=== PATIENT | female | born 1955 | race Caucasian/White ===

== ENCOUNTER 2016-05-24 02:18 | Emergency (ER) | payer BC ==
[2016-05-24 02:24] VITALS: BP 122/91
--- NOTE | 2016-05-24 02:33 | EDM.PDOC ---
ED HPI GI/ABDOMINAL - General Chief Complaint: Gastrointestinal Problem Stated Complaint: VOMITING Time Seen by Provider: 05/24/16 02:27 Source of Information: Reports: Patient - History of Present Illness INITIAL COMMENTS - FREE TEXT/NARRATIVE: 60-year-old female presents emergency room with lightheadedness dehydration and head injury. The patient has had significant nausea and vomiting since Saturday has not been able to keep any fluids down albeit she has tried. Patient really denies any abdominal discomfort. Patient was walking down the [place] shortly before arrival became lightheaded stumbled forward hitting her head on the floor. She denies loss of consciousness but was stunned. Patient has not had any diarrhea or any abdominal pain. No burning or frequency with urination she does have a history of hypokalemia and takes potassium chloride 20 mEq twice a day she has not been able to keep this down. Patient has a history of alcoholism, she has an occasional drink one or 2 a week. - Related Data Allergies/ADRs: Allergies Allergy/AdvReac Type Severity Reaction Status Date / Time levofloxacin [From Levaquin] Allergy Rash Verified 07/28/15 11:19 acetaminophen AdvReac Headache Verified 07/28/15 11:19 [From Darvocet-N] propoxyphene napsylate AdvReac Headache Verified 07/28/15 11:19 [From Darvocet-N] quetiapine fumarate AdvReac Confusion Verified 07/28/15 11:19 [From Seroquel] Home Meds: Home Meds Alendronate [Fosamax] 05/24/16 [History] DULoxetine [Cymbalta] 05/24/16 [History] Fluticasone/Salmeterol [Advair 250-50 Diskus] 05/24/16 [History] Fluticasone/Salmeterol [Advair 250-50 Diskus] 05/24/16 [History] Naltrexone Microspheres [Vivitrol] 05/24/16 [History] Potassium Chloride [Potassium Chloride] 05/24/16 [History] atorvaSTATin [Lipitor] 05/24/16 [History] Past Medical History HEENT History: Reports: Impaired vision, Other (see below) Other HEENT History: Patient states she wears glasses Cardiovascular History: Reports: High cholesterol Respiratory History: Reports: Asthma, Pneumonia, recurrent Gastrointestinal History: Reports: GERD Genitourinary History: Reports: UTI, recurrent 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 CYTOLOGY History: Reports: Other (see below) Other OB/BYN History: Patient states she started menopause at 54 yoa Neurological History: Reports: Other (see below) Other Neuro History: headaches Psychiatric History: Reports: Addiction, Anxiety, Depression, Eating disorders, Other (see below) Other Psychiatric History: eaating disorder at age 14 Immunologic History: Reports: Other (see below) Other Immunologic History: recurrent staph infections - Past Surgical History HEENT Surgical History: Reports: Oral surgery Other HEENT Surgeries/Procedures: Patient states all her teeth were removed and she has implants Other Respiratory Surgeries/Procedures: per ER report Musculoskeletal Surgical History: Reports: Shoulder surgery, Other (see below) Other Musculoskeletal Surgeries/Procedures:: Patient states she has a steel plate and screws in her right wrist, and has had two rotator cuff surgeries to the left shoulder Social & Family History - Family History Family Medical History: Unobtainable Cardiac: Reports: None - Tobacco Use Smoking Status *Q: Never Smoker Years of Tobacco use: 0 Used Tobacco, but Quit: Yes Month Tobacco Last Used: 2004 Second Hand Smoke Exposure: No - Alcohol Use Days Per Week of Alcohol Use: 3 Number of Drinks Per Day: 5 Total Drinks Per Week: 15 - Recreational Drug Use Recreational Drug Use: No Drug Use in Last 12 Months: Yes Recreational Drug Type: Reports: Opium ED ROS GENERAL - Review of Systems Review Of Systems: See Below Constitutional: Reports: malaise, weakness. Denies: fever, chills HEENT: Reports: No symptoms Respiratory: Reports: No Symptoms Cardiovascular: Reports: No symptoms GI/Abdominal: Reports: Nausea, Vomiting. Denies: Abdominal pain, Constipation, Diarrhea : Reports: no symptoms Musculoskeletal: Reports: no symptoms Skin: Reports: other (Other than her laceration on her forehead she is doing well) Neurological: Reports: Dizziness (With change of position), Headache (After the fall and head injury) Psychiatric: Reports: No symptoms Hematologic/Lymphatic: Reports: no symptoms ED EXAM, GI/ABD - Physical Exam Exam: See Below Exam Limited By: No limitations General Appearance: alert, no apparent distress, other (She has a vertical laceration on her midforehead and has a mild tachycardia) Eyes: bilateral: normal appearance Ears: normal external exam, normal canal, hearing grossly normal, normal TMs Nose: normal inspection, normal mucosa, no blood Throat/Mouth: Normal inspection, Normal lips, Normal teeth, Normal gums, Normal oropharynx, Normal voice, No airway compromise, Other (Semi-dry mucosa) Head: other (Laceration midforehead 3 cm) Neck: normal inspection, supple, non-tender, full range of motion. No: lymphadenopathy (L), lymphadenopathy (R) Respiratory/Chest: no respiratory distress, lungs clear, normal breath sounds Cardiovascular: regular rate, rhythm, no edema, no murmur, tachycardia (Mild) GI/Abdominal: normal bowel sounds, soft, non tender, no organomegaly, no distention, no abnormal bruit, no mass Back Exam: normal inspection, full range of motion. No: CVA tenderness (L), CVA tenderness (R) Extremities: normal inspection, no pedal edema Neurological: alert, oriented, CN II-XII intact, normal cognition, normal reflexes, no motor/sensory deficits, other (Cranial nerves II through XII grossly intact muscle groups the upper extremities recall appropriate bilaterally deep tendon reflexes the brachial radialis are normal. Patient cannot be ambulated because of orthostatic situation) Psychiatric: normal affect, normal mood Skin Exam: Warm, Dry, Intact Lymphatic: no adenopathy ED ABDOMINAL/GI PROCEDURES - Additional/Other Procedure(s) Procedure(s) (Free Text): Laceration on her forehead measures 3 cm is was anesthetized with 2 cc 1% lidocaine with out difficulty. The wound was kept moist during evaluation and cat scanning. 8 simple sutures of 5-0 nylon were placed yielding good wound approximation. Prior to repair wound was explored to its space no foreign bodies identified patient tolerated the procedure well. Her tetanus needs to be updated and this will be done on this visit Course - Vital Signs Last Recorded V/S: Last Vital Signs Temp 36.3 C 05/24/16 02:20 Pulse 105 H 05/24/16 02:20 Resp 18 05/24/16 02:20 BP 122/91 H 05/24/16 02:20 Pulse Ox 97 05/24/16 02:20 Orthostatic Blood Pressure [ 90/65 Standing] Orthostatic Blood Pressure [ 110/91 Sitting] - Orders/Labs/Meds Orders: Active Orders 24 hr Category Date Time Status Head wo Cont [CT] Stat Exams 05/24/16 02:39 Taken Labs: Laboratory Tests 05/24/16 05/24/1605/24/17 Range/Units 02:30 02:30 02:30 WBC 11.83 H (3.98-10.04) K/mm3 RBC 5.44 H (3.98-5.22) M/mm3 Hgb 17.1 H (11.2-15.7) gm/L Hct 50.5 H (34.1-44.9) % MCV 92.8 (79.4-94.8) fl MCH 31.4 (25.6-32.2) pg MCHC 33.9 (32.2-35.5) g/dl RDW Std Deviation 46.1 (36.4-46.3) fL Plt Count 319 (182-369) K/mm3 MPV 9.6 (9.4-12.3) fl Neutrophils % (Manual) 74 H (40-60) % Band Neutrophils % 0 (0-10) % Lymphocytes % (Manual) 12 L (20-40) % Atypical Lymphs % 0 % Monocytes % (Manual) 14 H (2-10) % Eosinophils % (Manual) 0 L (0.7-5.8) % Basophils % (Manual) 0 L (0.1-1.2) Platelet Estimate Adequate Plt Morphology Comment Normal RBC Morph Comment Normal Sodium 135 L (136-145) mEq/L Potassium 2.5 L (3.5-5.1) mEq/L Chloride 77 L (98-107) mEq/L Carbon Dioxide 34 H (21-32) mEq/L Anion Gap 26.5 H (5-15) BUN 34 H (7-18) mg/dL Creatinine 2.6 H (0.55-1.02) mg/dL Est Cr Clr Drug Dosing 17.56 mL/min Estimated GFR (MDRD) 19 (>60) mL/min BUN/Creatinine Ratio 13.1 L (14-18) Glucose 162 H (74-106) mg/dL Lactic Acid (0.4-2.0) mmol/L Calcium 11.0 H (8.5-10.1) mg/dL Magnesium 2.0 (1.8-2.4) mg/dl Total Bilirubin 1.9 H (0.2-1.0) mg/dL AST 40 H (15-37) U/L ALT 42 (14-59) U/L Alkaline Phosphatase 111 (46-116) U/L Total Protein 8.6 H (6.4-8.2) g/dl Albumin 5.6 H (3.4-5.0) g/dl Globulin 3.0 gm/dL Albumin/Globulin Ratio 1.9 (1-2) Lipase 387 (73-393) U/L Ethyl Alcohol 0.00 (0.00) gm% 05/24/16 Range/Units 03:45 WBC (3.98-10.04) K/mm3 RBC (3.98-5.22) M/mm3 Hgb (11.2-15.7) gm/L Hct (34.1-44.9) % MCV (79.4-94.8) fl MCH (25.6-32.2) pg MCHC (32.2-35.5) g/dl RDW Std Deviation (36.4-46.3) fL Plt Count (182-369) K/mm3 MPV (9.4-12.3) fl Neutrophils % (Manual) (40-60) % Band Neutrophils % (0-10) % Lymphocytes % (Manual) (20-40) % Atypical Lymphs % % Monocytes % (Manual) (2-10) % Eosinophils % (Manual) (0.7-5.8) % Basophils % (Manual) (0.1-1.2) Platelet Estimate Plt Morphology Comment RBC Morph Comment Sodium (136-145) mEq/L Potassium (3.5-5.1) mEq/L Chloride (98-107) mEq/L Carbon Dioxide (21-32) mEq/L Anion Gap (5-15) BUN (7-18) mg/dL Creatinine (0.55-1.02) mg/dL Est Cr Clr Drug Dosing mL/min Estimated GFR (MDRD) (>60) mL/min BUN/Creatinine Ratio (14-18) Glucose (74-106) mg/dL Lactic Acid 2.6 H (0.4-2.0) mmol/L Calcium (8.5-10.1) mg/dL Magnesium (1.8-2.4) mg/dl Total Bilirubin (0.2-1.0) mg/dL AST (15-37) U/L ALT (14-59) U/L Alkaline Phosphatase (46-116) U/L Total Protein (6.4-8.2) g/dl Albumin (3.4-5.0) g/dl Globulin gm/dL Albumin/Globulin Ratio (1-2) Lipase (73-393) U/L Ethyl Alcohol (0.00) gm% Meds: Medications Discontinued Medications Generic Name Dose Route Start Last Admin Trade Name Abelardo PRN Reason Stop Dose Admin Lactated Ringer's 2,000 mls @ 999 mls/hr 05/24/16 02:34 05/24/16 02:42 Ringers, Lactated IV 05/24/16 04:34 999 mls/hr .BOLUS ONE Administration Lidocaine HCl 50 ml 05/24/16 03:15 05/24/16 04:50 Xylocaine-Mpf 1% INJECT 05/24/16 03:16 50 ml ONETIME ONE Administration Ondansetron HCl 4 mg 05/24/16 03:12 05/24/16 03:16 Zofran IVPUSH 05/24/16 03:13 4 mg ONETIME ONE Administration Ondansetron HCl Confirm 05/24/16 04:13 05/24/16 05:08 Zofran Administered 05/24/16 04:14 Not Given Dose 4 mg .ROUTE .STK-MED ONE Ondansetron HCl 4 mg 05/24/16 04:14 05/24/16 04:15 Zofran IVPUSH 05/24/16 04:15 4 mg ONETIME ONE Administration Potassium Chloride 40 meq 05/24/16 03:14 05/24/16 05:07 Klor-Con M20 PO 05/24/16 03:15 40 meq ONETIME ONE Administration - Re-Assessments/Exams Free Text/Narrative Re-Assessment/Exam: 05/24/16 06:05 Patient was orthostatic upon arrival she was started on IV fluids received a total of 2 L. Her nausea and vomiting required 2 doses of Zofran. Patient felt much better, she was ambulatory able to walk a full lap around emergency room department without difficulty lightheadedness or dizziness. Patient tolerated her laceration repair without difficulty. Her tetanus was updated Departure - Departure Time of Disposition: 05:42 Disposition: Home, Self-Care 01 Clinical Impression: Nausea & vomiting, Head injury, Dehydration, Hypokalemia Referrals: Renard Verduzco MD [Primary Care Provider] - Forms: ED Department Discharge Additional Instructions: Return to the emergency room with any questions or problems. Return if not keeping fluids down or you cannot control your nausea and vomiting. Increase your potassium to 40 mEq 3 times a day for 2 days and then 20 mEq 3 times a day. You have been given a prescription for Zofran 4mg #10 one every 4-6 hours as needed for nausea and vomiting. Followup with your regular physician on Saturday and have your potassium rechecked. Her Sutures out in 8 or 9 days. Use caution with change of position to avoid dizziness. - My Orders Last 24 Hours: My Active Orders 05/24/16 02:39 Head wo Cont [CT] Stat - Assessment/Plan Last 24 Hours: My Active Orders 05/24/16 02:39 Head wo Cont [CT] Stat
[2016-05-24] MEDS ORDERED: Lactated Ringers 2,000 ML IV ONE (02:34)
[2016-05-24] MEDS ORDERED: Ondansetron 4 MG/2 ML SDV IVPUSH ONE ×2 (03:12→04:14)
[2016-05-24] MEDS ORDERED: Potassium Chloride 20 MEQ Tab.ER PO ONE (03:14)
[2016-05-24] MEDS ORDERED: Lidocaine 1% 30 ML SDV INJECT ONE (03:15)
[2016-05-24] MEDS ORDERED: Ondansetron 4 MG/2 ML SDV ONE (04:13)
[2016-05-24] MEDS ORDERED: Diphtheria,Pertussis(Acell),Tetanus Vaccine 0.5 ML SDV inactive IM ONE (06:04)
[2016-05-24] MEDS ORDERED: Diphtheria/Tetanus Toxoids,Adult (Td) 0.5 ML Syringe ONE (06:06)
--- NOTE | 2016-05-24 09:55 | CT ---
Head CT Technique: Multiple axial sections through the brain were obtained. Intravenous contrast was not utilized. Comparison: Previous head CT study of 06/26/15. Findings: Ventricles along with basal cisterns and sulci over the convexities are mildly prominent. Very minimal diminished density suggested within the periventricular white matter compatible with slight small vessel ischemic demyelination change. No other abnormal parenchymal densities are seen. No evidence of intracranial hemorrhage. No midline shift or mass effect is seen. Bone window settings were reviewed which show no discrete calvarial abnormality. Visualized sinuses are clear. Impression: 1. Mild senescent change. No acute intracranial abnormality is identified. Diagnostic code #2 I agree with preliminary report issued by [facility] (preliminary report dictated on 05/24/16, 5:26 AM Central Time)
== END 2016-05-24 06:15 | disposition home or self-care (01) ==
LOC: JD.ED 02:18 → SUPCPDRO 02:18 → JD.ED 06:15
DX: S09.90XA Unspecified injury of head, initial encounter (principal); S01.81XA Laceration without foreign body of other part of head, initial encounter; E86.0 Dehydration; E87.6 Hypokalemia; R11.2 Nausea with vomiting, unspecified; Z88.1 Allergy status to other antibiotic agents; Z88.8 Allergy status to other drugs, medicaments and biological substances; Z79.899 Other long term (current) drug therapy; E78.00 Pure hypercholesterolemia, unspecified; K21.9 Gastro-esophageal reflux disease without esophagitis; J45.909 Unspecified asthma, uncomplicated; F32.9 Major depressive disorder, single episode, unspecified; F41.9 Anxiety disorder, unspecified; Z87.891 Personal history of nicotine dependence; W18.30XA Fall on same level, unspecified, initial encounter
CPT/HCPCS: 12013; 36415; 70450; 80053; 83605; 83690; 83735; 85025; 90471; 96361; 96374; 96376; 99284; A9270; G0480; J2405; J7120; 90715

== ENCOUNTER 2016-05-27 11:52 | Emergency (ER) | payer BC ==
[2016-05-27 12:05] VITALS: BP 130/86
[2016-05-27] MEDS ORDERED: Sodium Chloride 0.9% 1,000 ML IV SCH (13:15)
--- NOTE | 2016-05-27 14:00 | EDM.PDOC ---
ED HPI Behavioral Health - General Chief Complaint: Drug or Alcohol Abuse Stated Complaint: [facility] Time Seen by Provider: 05/27/16 12:41 Source of Information: Reports: Patient, RN notes reviewed Exam Limitations: Reports: Intoxication - History of Present Illness INITIAL COMMENTS - FREE TEXT/NARRATIVE: It appears that the patient's boyfriend called EMS for alcohol intoxication. The patient denies it, but she may have told her boyfriend that she wanted to . At this time, the patient expressly denies suicidal or homicidal ideation. The patient reported to the triage nurse that she drank 1 L of vodka on 05/21/2016, 2 L of vodka on 05/14/2016, and 1 L on 05/23/2016. The patient tells me that she had been sober for the past 10 days, until today. She tells me that she only had 3 vodka drinks today. The patient's boyfriend did not come to the ED, but I discussed the patient's case at length with the patient's mother, who is very concerned about her daughter, however, the mother cannot point to a specific suicide threat or gesture that the patient has made. The patient's mother stated that the patient falls frequently, and, indeed, the patient was seen in this ED on 2016 after falling and lacerating her forehead, receiving 8 sutures. The patient states that she has not fallen since, however, and the patient's mother cannot contradict that. The patient states that she has been a heavy drinker since about 47 years of age. She tends to binge for approximately 30 days. She has been to inpatient rehabilitation for 28 days, once, in late 2011/early 2012. She states that she attends AA 5 days a week, and also sees a counselor once a week. Treatments LEASE PICKER: Reports: Other (see below) Other Treatments LEASE PICKER: see EMS report - SAD Persons Scale (SPS) SPS Sex: Female SPS Age: Between 18-65 Years of Age SPS Depression: Yes SPS Previous Suicide Attempts: Yes SPS Alcohol Abuse/Drug Abuse: Yes SPS Rational Thinking Loss: No SPS Social Support Deficit: No SPS Organized Suicide Plan: No SPS No Spouse/Significant Other: Yes SPS Sickness: No SPS Sad Person Scale Score: 4 - Related Data Allergies Allergy/AdvReac Type Severity Reaction Status Date / Time levofloxacin [From Levaquin] Allergy Rash Verified 05/27/16 11:57 acetaminophen AdvReac Headache Verified 05/27/16 11:57 [From Darvocet-N] propoxyphene napsylate AdvReac Headache Verified 05/27/16 11:57 [From Darvocet-N] quetiapine fumarate AdvReac Confusion Verified 05/27/16 11:57 [From Seroquel] Home Medications: Home Meds Alendronate [Fosamax] 70 mg PO MO 05/24/16 [History] DULoxetine [Cymbalta] 20 mg PO DAILY 05/24/16 [History] Fluticasone/Salmeterol [Advair 250-50 Diskus] 1 puff IH BID 05/24/16 [History] Naltrexone Microspheres [Vivitrol] 380 mg PO DAILY 05/24/16 [History] Potassium Chloride [Potassium Chloride] 20 meq PO DAILY 05/24/16 [History] atorvaSTATin [Lipitor] 10 mg PO DAILY 05/24/16 [History] Past Medical History HEENT History: Reports: Impaired vision Other HEENT History: Patient states she wears glasses Cardiovascular History: Reports: High cholesterol Respiratory History: Reports: Asthma Gastrointestinal History: Reports: GERD Psychiatric History: Reports: Addiction, Anxiety, Depression, Eating disorders ( Anorexic as a child/teen) - Infectious Disease History Infectious Disease History: Reports: Chicken pox - Past Surgical History HEENT Surgical History: Reports: Adenoidectomy, Oral surgery (Dental extractions and implants), Tonsillectomy GI Surgical History: Reports: Appendectomy Musculoskeletal Surgical History: Reports: ORIF (Right forearm x 5), Shoulder surgery (Left rotator cuff x 2, open) Social & Family History - Family History Family Medical History: Unobtainable Cardiac: Reports: None - Tobacco Use Smoking Status *Q: Former Smoker Years of Tobacco use: 0 Used Tobacco, but Quit: Yes Month Tobacco Last Used: 2004 Second Hand Smoke Exposure: No - Caffeine Use Caffeine Use: Reports: None - Alcohol Use Alcohol Use History: Yes Days Per Week of Alcohol Use: 7 Number of Drinks Per Day: 0 Total Drinks Per Week: 0 Alcohol Use Frequency: Binges - Recreational Drug Use Recreational Drug Use: Yes Drug Use in Last 12 Months: Yes Recreational Drug Type: Reports: Opium - Living Situation & Occupation Living situation: Reports: , alone Occupation: unemployed ED ROS GENERAL - Review of Systems Review Of Systems: See Below Constitutional: Reports: no symptoms HEENT: Reports: No symptoms Respiratory: Reports: No Symptoms Cardiovascular: Reports: No symptoms Endocrine: Reports: no symptoms GI/Abdominal: Reports: No symptoms : Reports: no symptoms Musculoskeletal: Reports: no symptoms Skin: Reports: no symptoms Neurological: Reports: No Symptoms Psychiatric: Reports: No symptoms Hematologic/Lymphatic: Reports: no symptoms Immunologic: Reports: no symptoms ED EXAM, BEHAVIORAL HEALTH - Physical Exam Exam: See Below Exam Limited By: Intoxication (Strong smell of alcohol) General Appearance: alert, WD/WN, no apparent distress Eye Exam: bilateral eye: EOMI, normal inspection Ears: normal external exam, hearing grossly normal Nose: normal inspection, no blood Throat/Mouth: Normal inspection, Normal lips, Normal voice, No airway compromise Head: normocephalic, other (Well-healing midline forehead laceration, sutured.) Neck: normal inspection, full range of motion Respiratory/Chest: no respiratory distress, lungs clear, normal breath sounds, no accessory muscle use Cardiovascular: normal peripheral pulses, regular rate, rhythm, no gallop, no JVD, no murmur, no rub GI/Abdominal: normal bowel sounds, soft, non tender, no organomegaly, no distention, no abnormal bruit, no mass Back Exam: normal inspection, full range of motion, NT Extremities: normal inspection, normal range of motion, no pedal edema, normal capillary refill Neurological: no motor/sensory deficits, other (Clinically intoxicated - slow to answer questions, slightly slurred speech) Psychiatric: normal affect Skin Exam: Warm, Dry, Intact, Normal color, No rash EKG INTERPRETATION EKG Date: 05/27/16 Time: 13:22 Rhythm: other (Sinus tachycardia) Rate (beats/min): 105 Hooker: normal P-wave: present QRS: normal ST-T: normal QT: normal Comparison: no change (05/31/2015) COURSE, BEHAVIORAL HEALTH COMP - Course Vital Signs: Last Vital Signs Temp 36.8 C 05/27/16 12:00 Pulse 110 H 05/27/16 12:00 Resp 20 05/27/16 12:00 BP 130/86 05/27/16 12:00 Pulse Ox 93 L 05/27/16 12:00 Orders, Labs, Meds: Active Orders 24 hr Category Date Time Status EKG Documentation Completion [RC] STAT Care 05/27/16 13:13 Active Sodium Chloride 0.9% [Normal Saline] 1,000 ml Med 05/27/16 13:15 Active IV ASDIRECTED Medication Orders Sodium Chloride (Normal Saline) 1,000 mls @ 150 mls/hr IV ASDIRECTED STEPHANE Last Admin: 05/27/16 13:24 Dose: 150 mls/hr Laboratory Tests 05/27/16 05/27/16 05/27/16 Range/Units 14:20 14:20 14:20 WBC 6.46 (3.98-10.04) K/mm3 RBC 4.59 (3.98-5.22) M/mm3 Hgb 14.5 (11.2-15.7) gm/L Hct 44.4 (34.1-44.9) % MCV 96.7 H (79.4-94.8) fl MCH 31.6 (25.6-32.2) pg MCHC 32.7 (32.2-35.5) g/dl RDW Std Deviation 49.2 H (36.4-46.3) fL Plt Count 213 (182-369) K/mm3 MPV 8.8 L (9.4-12.3) fl Neutrophils % (Manual) 65 H (40-60) % Band Neutrophils % 0 (0-10) % Lymphocytes % (Manual) 33 (20-40) % Atypical Lymphs % 0 % Monocytes % (Manual) 2 (2-10) % Eosinophils % (Manual) 0 L (0.7-5.8) % Basophils % (Manual) 0 L (0.1-1.2) Platelet Estimate Adequate Anisocytosis 1+ slight Macrocytosis 1+ slight RBC Morph Comment Not Reportable Sodium 143 (136-145) mEq/L Potassium 3.3 L (3.5-5.1) mEq/L Chloride 99 (98-107) mEq/L Carbon Dioxide 36 H (21-32) mEq/L Anion Gap 11.3 (5-15) BUN 10 (7-18) mg/dL Creatinine 0.8 (0.55-1.02) mg/dL Est Cr Clr Drug Dosing TNP Estimated GFR (MDRD) > 60 (>60) mL/min BUN/Creatinine Ratio 12.5 L (14-18) Glucose 102 (74-106) mg/dL Calcium 8.1 L (8.5-10.1) mg/dL Total Bilirubin 0.3 (0.2-1.0) mg/dL AST 46 H (15-37) U/L ALT 38 (14-59) U/L Alkaline Phosphatase 82 (46-116) U/L Total Protein 6.8 (6.4-8.2) g/dl Albumin 4.0 (3.4-5.0) g/dl Globulin 2.8 gm/dL Albumin/Globulin Ratio 1.4 (1-2) TSH 3rd Generation 0.172 L (0.358-3.74) uIU/mL Salicylates 0.8 L (2.8-20) mg/dL Urine Opiates Screen (NEGATIVE) Ur Buprenorphine Scrn (NEGATIVE) Ur Oxycodone Screen (NEGATIVE) Urine Methadone Screen (NEGATIVE) Ur Propoxyphene Screen (NEGATIVE) Acetaminophen 0 L (10-30) ug/mL Ur Barbiturates Screen (NEGATIVE) Ur Tricyclics Screen (NEGATIVE) Ur Phencyclidine Scrn (NEGATIVE) Ur Amphetamine Screen (NEGATIVE) U Methamphetamines Scrn (NEGATIVE) U Benzodiazepines Scrn (NEGATIVE) U Cocaine Metab Screen (NEGATIVE) U Marijuana (THC) Screen (NEGATIVE) Ethyl Alcohol 0.36 (0.00) gm% 05/27/16 05/27/16 Range/Units 15:45 18:09 WBC (3.98-10.04) K/mm3 RBC (3.98-5.22) M/mm3 Hgb (11.2-15.7) gm/L Hct (34.1-44.9) % MCV (79.4-94.8) fl MCH (25.6-32.2) pg MCHC (32.2-35.5) g/dl RDW Std Deviation (36.4-46.3) fL Plt Count (182-369) K/mm3 MPV (9.4-12.3) fl Neutrophils % (Manual) (40-60) % Band Neutrophils % (0-10) % Lymphocytes % (Manual) (20-40) % Atypical Lymphs % % Monocytes % (Manual) (2-10) % Eosinophils % (Manual) (0.7-5.8) % Basophils % (Manual) (0.1-1.2) Platelet Estimate Anisocytosis Macrocytosis RBC Morph Comment Sodium (136-145) mEq/L Potassium (3.5-5.1) mEq/L Chloride (98-107) mEq/L Carbon Dioxide (21-32) mEq/L Anion Gap (5-15) BUN (7-18) mg/dL Creatinine (0.55-1.02) mg/dL Est Cr Clr Drug Dosing Estimated GFR (MDRD) (>60) mL/min BUN/Creatinine Ratio (14-18) Glucose (74-106) mg/dL Calcium (8.5-10.1) mg/dL Total Bilirubin (0.2-1.0) mg/dL AST (15-37) U/L ALT (14-59) U/L Alkaline Phosphatase (46-116) U/L Total Protein (6.4-8.2) g/dl Albumin (3.4-5.0) g/dl Globulin gm/dL Albumin/Globulin Ratio (1-2) TSH 3rd Generation (0.358-3.74) uIU/mL Salicylates (2.8-20) mg/dL Urine Opiates Screen Negative (NEGATIVE) Ur Buprenorphine Scrn Negative (NEGATIVE) Ur Oxycodone Screen Negative (NEGATIVE) Urine Methadone Screen Negative (NEGATIVE) Ur Propoxyphene Screen Negative (NEGATIVE) Acetaminophen (10-30) ug/mL Ur Barbiturates Screen Negative (NEGATIVE) Ur Tricyclics Screen Negative (NEGATIVE) Ur Phencyclidine Scrn Negative (NEGATIVE) Ur Amphetamine Screen Negative (NEGATIVE) U Methamphetamines Scrn Negative (NEGATIVE) U Benzodiazepines Scrn Negative (NEGATIVE) U Cocaine Metab Screen Negative (NEGATIVE) U Marijuana (THC) Screen Negative (NEGATIVE) Ethyl Alcohol 0.23 (0.00) gm% Medications Generic Name Dose Route Start Last Admin Trade Name Freq PRN Reason Stop Dose Admin Sodium Chloride 1,000 mls @ 150 mls/hr 05/27/16 13:15 05/27/16 13:24 Normal Saline IV 150 mls/hr ASDIRECTED STEPHANE Administration Medical Clearance: 05/27/16 15:04 The patient's alcohol level has returned significantly elevated at 0.36. To determine her rate of detoxification, I will have a second alcohol level drawn at 18:00. 05/27/16 19:39 The patient alcohol level is down to 0.23 at 18:09. This reflects a detoxification rate of 34.06 mg/dl/hr. Her alcohol level will be 0.08 at 22:33 , and zero at 00:54. Clinically, the patient is relatively sober, and denies any suicidal or homicidal ideation. I am comfortable discharging her home with a responsible adult, however, at this time, her boyfriend is refusing to pick her up. 05/27/16 20:11 Notified that the patient's mother is willing to pick the patient up, and the patient is willing to go home with her mother. Departure - Departure Time of Disposition: 20:11 Disposition: Home, Self-Care 01 Condition: fair Clinical Impression: Alcohol intoxication, Alcoholism /alcohol abuse Instructions: Alcohol Intoxication, [id number] Referrals: Renard Verduzco MD [Primary Care Provider] - Additional Instructions: You were seen in the emergency room today for alcohol intoxication and a concern by your loved ones that you may be suicidal. Workup in the ER included blood work, a urine drug screen, and an ECG. Your workup found your initial alcohol level to be substantially elevated at 0.36. For reference, this is 4.5 times the legal limit for driving of 0.08. We also found that you MAY be hyperthyroid, however, this needs to be rechecked. Please followup with your PCP in this regard. We STRONGLY recommend you seek professional help to stop drinking. If any other problems, please do not hesitate to return to the ER. - My Orders Last 24 Hours: My Active Orders 05/27/16 13:13 EKG Documentation Completion [RC] STAT 05/27/16 13:15 Sodium Chloride 0.9% [Normal Saline] 1,000 ml IV ASDIRECTED - Assessment/Plan Last 24 Hours: My Active Orders 05/27/16 13:13 EKG Documentation Completion [RC] STAT 05/27/16 13:15 Sodium Chloride 0.9% [Normal Saline] 1,000 ml IV ASDIRECTED
[2016-05-27 14:55] LABS: ACETAMINOPHEN 0 ug/mL (10-30)
== END 2016-05-27 20:34 | disposition home or self-care (01) ==
LOC: JD.ED 11:52 → SUPCPDRO 11:52 → JD.ED 20:34
DX: F10.229 Alcohol dependence with intoxication, unspecified (principal); Y90.1 Blood alcohol level of 20-39 mg/100 ml; Z88.1 Allergy status to other antibiotic agents; Z88.6 Allergy status to analgesic agent; Z79.899 Other long term (current) drug therapy; E78.00 Pure hypercholesterolemia, unspecified; J45.909 Unspecified asthma, uncomplicated; K21.9 Gastro-esophageal reflux disease without esophagitis; F32.9 Major depressive disorder, single episode, unspecified; F41.9 Anxiety disorder, unspecified; Z87.891 Personal history of nicotine dependence
CPT/HCPCS: 36415; 80053; 80306; 84443; 85025; 93005; 96360; 96361; 99285; G0480; J7040; P9612; 99284

== ENCOUNTER 2016-08-04 06:24 | Emergency (ER) | payer BC ==
[2016-08-04] MEDS ORDERED: Dextrose 5%-0.9% NaCl 1,000 ML IV ONE (06:44)
--- NOTE | 2016-08-04 06:59 | EDM.PDOC ---
ED HPI GENERAL MEDICAL PROBLEM - General Chief Complaint: Respiratory Problem Stated Complaint: SOB/ASTHMA Time Seen by Provider: 08/04/16 06:58 Source of Information: Reports: Patient History Limitations: Reports: No Limitations - History of Present Illness INITIAL COMMENTS - FREE TEXT/NARRATIVE: The patient presents with some trouble breathing. It feels like she has a golf ball in her throat. This started yesterday. She had a hard time sleeping through the night. She has a history of asthma and that is under good control. She says it does not feel like that. It is hard to get her breath. She has a cough at times but no fever or chills. She has nausea but no vomiting. She is an alcoholic and she does admit to drinking the past few days. He last drink was yesterday. She has no chest pain. She has no abdominal pain. She is also anxious and is shaking slightly. Onset: Gradual Duration: Day(s): Location: Reports: Neck Quality: Reports: Pressure Severity: Moderate Improves with: Reports: None Worsens with: Reports: None Associated Symptoms: Reports: Cough, Shortness of Breath. Denies: Chest Pain, Fever/Chills, Headaches, Nausea/Vomiting - Related Data Allergies Allergy/AdvReac Type Severity Reaction Status Date / Time levofloxacin [From Levaquin] Allergy Rash Verified 08/04/16 06:37 acetaminophen AdvReac Headache Verified 08/04/16 06:37 [From Darvocet-N] propoxyphene napsylate AdvReac Headache Verified 08/04/16 06:37 [From Darvocet-N] quetiapine fumarate AdvReac Confusion Verified 08/04/16 06:37 [From Seroquel] Home Meds: Home Meds Alendronate [Fosamax] 70 mg PO MO 05/24/16 [History] DULoxetine [Cymbalta] 20 mg PO DAILY 05/24/16 [History] Fluticasone/Salmeterol [Advair 250-50 Diskus] 1 puff IH BID 05/24/16 [History] Potassium Chloride [Potassium Chloride] 20 meq PO DAILY 05/24/16 [History] atorvaSTATin [Lipitor] 10 mg PO DAILY 05/24/16 [History] LORazepam [Ativan] 1 mg PO Q8H PRN #20 tablet 08/04/16 [Rx] Ondansetron [Zofran ODT] 4 mg PO Q6H PRN #20 tab.dis 08/04/16 [Rx] Past Medical History HEENT History: Reports: Impaired Vision Other HEENT History: Patient states she wears glasses Cardiovascular History: Reports: High Cholesterol Respiratory History: Reports: Asthma Gastrointestinal History: Reports: GERD Genitourinary History: Reports: UTI, Recurrent 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: Other (See Below) Other OB/BYN History: Patient states she started menopause at 54 yoa Neurological History: Reports: Other (See Below) Other Neuro History: headaches Psychiatric History: Reports: Addiction, Anxiety, Depression, Eating Disorders Other Psychiatric History: eaating disorder at age 14 Immunologic History: Reports: Other (See Below) Other Immunologic History: recurrent staph infections - Infectious Disease History Infectious Disease History: Reports: Chicken Pox - Past Surgical History HEENT Surgical History: Reports: Adenoidectomy, Oral Surgery, Tonsillectomy, Other (See Below) Other HEENT Surgeries/Procedures: facial surgery to fractures on right side of face from fall. GI Surgical History: Reports: Appendectomy Musculoskeletal Surgical History: Reports: ORIF, Shoulder Surgery, Other (See Below) Other Musculoskeletal Surgeries/Procedures:: facial surgery from fractures. Social & Family History - Family History Family Medical History: Noncontributory Cardiac: Reports: None - Tobacco Use Smoking Status *Q: Never Smoker Years of Tobacco use: 0 Used Tobacco, but Quit: Yes Month Tobacco Last Used: 2004 Second Hand Smoke Exposure: No - Caffeine Use Caffeine Use: Reports: Coffee - Alcohol Use Days Per Week of Alcohol Use: 7 Number of Drinks Per Day: 4 Total Drinks Per Week: 28 - Recreational Drug Use Recreational Drug Use: No Drug Use in Last 12 Months: Yes Recreational Drug Type: Reports: Opium - Living Situation & Occupation Living situation: Reports: , Alone Occupation: Unemployed ED ROS GENERAL - Review of Systems Review Of Systems: See Below Constitutional: Reports: No Symptoms HEENT: Reports: Other (Pressure in her throat) Respiratory: Reports: Shortness of Breath, Cough. Denies: Wheezing Cardiovascular: Reports: No Symptoms Endocrine: Reports: No Symptoms GI/Abdominal: Reports: Nausea. Denies: Abdominal Pain, Vomiting : Reports: No Symptoms Musculoskeletal: Reports: No Symptoms Skin: Reports: No Symptoms Neurological: Reports: No Symptoms ED EXAM, GENERAL - Physical Exam Exam: See Below Exam Limited By: No Limitations General Appearance: Alert, No Apparent Distress Ears: Normal External Exam Nose: Normal Inspection Throat/Mouth: Normal Inspection Head: Atraumatic, Normocephalic Neck: Normal Inspection Respiratory/Chest: No Respiratory Distress, Lungs Clear, Normal Breath Sounds, Stridor (at times when she coughs) Cardiovascular: Regular Rate, Rhythm, No Edema, No Murmur GI/Abdominal: Soft, Non-Tender, No Organomegaly, No Mass Back Exam: Normal Inspection Extremities: Normal Inspection Course - Vital Signs Last Recorded V/S: Last Vital Signs Temp 98.1 F 08/04/16 06:27 Pulse 102 H 08/04/16 09:00 Resp 18 08/04/16 09:00 BP 160/89 H 08/04/16 09:00 Pulse Ox 99 08/04/16 06:27 - Orders/Labs/Meds Orders: Active Orders 24 hr Category Date Time Status Chest 1V Frontal [CR] Stat Exams 08/04/16 06:44 Taken Neck Soft Tissue [CR] Stat Exams 08/04/16 07:13 Taken Labs: Laboratory Tests 08/04/16 08/04/16 08/04/16 Range/Units 06:45 07:30 07:30 WBC 17.90 H (3.98-10.04) K/mm3 RBC 4.34 (3.98-5.22) M/mm3 Hgb 14.0 (11.2-15.7) gm/L Hct 41.7 (34.1-44.9) % MCV 96.1 H (79.4-94.8) fl MCH 32.3 H (25.6-32.2) pg MCHC 33.6 (32.2-35.5) g/dl RDW Std Deviation 46.4 H (36.4-46.3) fL Plt Count 471 H (182-369) K/mm3 MPV 8.5 L (9.4-12.3) fl Neut % (Auto) 88.1 H (34.0-71.1) % Lymph % (Auto) 3.8 L (19.3-51.7) % [place] % (Auto) 7.7 (4.7-12.5) % Eos % (Auto) 0 L (0.7-5.8) Baso % (Auto) 0.1 (0.1-1.2) % Neut # (Auto) 15.79 H (1.56-6.13) K/mm3 Lymph # (Auto) 0.68 L (1.18-3.74) K/mm3 [place] # (Auto) 1.37 H (0.24-0.36) K/mm3 Eos # (Auto) 0.00 L (0.04-0.36) K/mm3 Baso # (Auto) 0.01 (0.01-0.08) K/mm3 Manual Slide Review Normal smear Sodium 141 (136-145) mEq/L Potassium 2.8 L (3.5-5.1) mEq/L Chloride 103 (98-107) mEq/L Carbon Dioxide 21 (21-32) mEq/L Anion Gap 19.8 H (5-15) BUN 19 H (7-18) mg/dL Creatinine 0.7 (0.55-1.02) mg/dL Est Cr Clr Drug Dosing 67.75 mL/min Estimated GFR (MDRD) > 60 (>60) mL/min BUN/Creatinine Ratio 27.1 H (14-18) Glucose 147 H (74-106) mg/dL Calcium 8.2 L (8.5-10.1) mg/dL Total Bilirubin 0.4 (0.2-1.0) mg/dL AST 40 H (15-37) U/L ALT 39 (14-59) U/L Alkaline Phosphatase 103 (46-116) U/L C-Reactive Protein 0.4 (<1.0) mg/dL Total Protein 7.3 (6.4-8.2) g/dl Albumin 3.8 (3.4-5.0) g/dl Globulin 3.5 gm/dL Albumin/Globulin Ratio 1.1 (1-2) Urine Opiates Screen (NEGATIVE) Ur Buprenorphine Scrn (NEGATIVE) Ur Oxycodone Screen (NEGATIVE) Urine Methadone Screen (NEGATIVE) Ur Propoxyphene Screen (NEGATIVE) Ur Barbiturates Screen (NEGATIVE) Ur Tricyclics Screen (NEGATIVE) Ur Phencyclidine Scrn (NEGATIVE) Ur Amphetamine Screen (NEGATIVE) U Methamphetamines Scrn (NEGATIVE) U Benzodiazepines Scrn (NEGATIVE) U Cocaine Metab Screen (NEGATIVE) U Marijuana (THC) Screen (NEGATIVE) Ethyl Alcohol 0.06 (0.00) gm% 08/04/16 Range/Units 09:23 WBC (3.98-10.04) K/mm3 RBC (3.98-5.22) M/mm3 Hgb (11.2-15.7) gm/L Hct (34.1-44.9) % MCV (79.4-94.8) fl MCH (25.6-32.2) pg MCHC (32.2-35.5) g/dl RDW Std Deviation (36.4-46.3) fL Plt Count (182-369) K/mm3 MPV (9.4-12.3) fl Neut % (Auto) (34.0-71.1) % Lymph % (Auto) (19.3-51.7) % [place] % (Auto) (4.7-12.5) % Eos % (Auto) (0.7-5.8) Baso % (Auto) (0.1-1.2) % Neut # (Auto) (1.56-6.13) K/mm3 Lymph # (Auto) (1.18-3.74) K/mm3 [place] # (Auto) (0.24-0.36) K/mm3 Eos # (Auto) (0.04-0.36) K/mm3 Baso # (Auto) (0.01-0.08) K/mm3 Manual Slide Review Sodium (136-145) mEq/L Potassium (3.5-5.1) mEq/L Chloride (98-107) mEq/L Carbon Dioxide (21-32) mEq/L Anion Gap (5-15) BUN (7-18) mg/dL Creatinine (0.55-1.02) mg/dL Est Cr Clr Drug Dosing mL/min Estimated GFR (MDRD) (>60) mL/min BUN/Creatinine Ratio (14-18) Glucose (74-106) mg/dL Calcium (8.5-10.1) mg/dL Total Bilirubin (0.2-1.0) mg/dL AST (15-37) U/L ALT (14-59) U/L Alkaline Phosphatase (46-116) U/L C-Reactive Protein (<1.0) mg/dL Total Protein (6.4-8.2) g/dl Albumin (3.4-5.0) g/dl Globulin gm/dL Albumin/Globulin Ratio (1-2) Urine Opiates Screen Negative (NEGATIVE) Ur Buprenorphine Scrn Negative (NEGATIVE) Ur Oxycodone Screen Negative (NEGATIVE) Urine Methadone Screen Negative (NEGATIVE) Ur Propoxyphene Screen Negative (NEGATIVE) Ur Barbiturates Screen Negative (NEGATIVE) Ur Tricyclics Screen Negative (NEGATIVE) Ur Phencyclidine Scrn Negative (NEGATIVE) Ur Amphetamine Screen Negative (NEGATIVE) U Methamphetamines Scrn Negative (NEGATIVE) U Benzodiazepines Scrn Negative (NEGATIVE) U Cocaine Metab Screen Negative (NEGATIVE) U Marijuana (THC) Screen Negative (NEGATIVE) Ethyl Alcohol (0.00) gm% Meds: Medications Discontinued Medications Generic Name Dose Route Start Last Admin Trade Name Freq PRN Reason Stop Dose Admin Dexamethasone 4 mg 08/04/16 07:14 08/04/16 08:08 Dexamethasone PO 08/04/16 07:15 4 mg ONETIME ONE Administration Dextrose/Sodium Chloride 1,000 mls @ 999 mls/hr 08/04/16 06:44 08/04/16 07:51 Dextrose 5%-Normal Saline IV 08/04/16 07:44 999 mls/hr ONETIME ONE Administration Lorazepam 1 mg 08/04/16 07:14 08/04/16 07:49 Ativan IVPUSH 08/04/16 07:15 1 mg ONETIME ONE Administration Ondansetron HCl 4 mg 08/04/16 07:14 08/04/16 07:48 Zofran IVPUSH 08/04/16 07:15 4 mg ONETIME ONE Administration - Re-Assessments/Exams Free Text/Narrative Re-Assessment/Exam: 08/04/16 08:43 I ordered an IV bolus, zofran 4mg IV, ativan 1mg IV, dexamethasone 4mg PO, CXR, neck x-ray, and labs. 08/04/16 10:09 Her CXR looks good. The soft tissue x-ray of her neck shows a steeple sign. Her WBC was elevated at 17.9. Her K was low at 2.8. Her anion gap was elevated at 19.8. Her glucose was elevated at 147. Her AST was elevated at 40. Her UDS was negative. Her ETOH was elevated at 0.06. She feels much better. I will discharge her home with some ativan and zofran. Departure - Departure Time of Disposition: 10:15 Disposition: Home, Self-Care 01 Condition: good Clinical Impression: Croup, Alcohol abuse - Discharge Information Prescriptions: LORazepam [Ativan] 1 mg PO Q8H PRN #20 tablet PRN Reason: Anxiety Ondansetron [Zofran ODT] 4 mg PO Q6H PRN #20 tab.dis PRN Reason: Nausea/Vomiting Referrals: Renard Verduzco MD [Primary Care Provider] - 1 Week Forms: ED Department Discharge Additional Instructions: Take the zofran and ativan as needed. If you have more stridor, run a hot shower and breath the moist are. That should help and if it does not please return. - My Orders Last 24 Hours: My Active Orders 08/04/16 06:44 Chest 1V Frontal [CR] Stat 08/04/16 07:13 Neck Soft Tissue [CR] Stat - Assessment/Plan Last 24 Hours: My Active Orders 08/04/16 06:44 Chest 1V Frontal [CR] Stat 08/04/16 07:13 Neck Soft Tissue [CR] Stat
[2016-08-04] MEDS ORDERED: LORazepam 2 MG/ML MDV IVPUSH ONE (07:14)
[2016-08-04] MEDS ORDERED: Dexamethasone 4 MG Tab PO ONE (07:14)
[2016-08-04] MEDS ORDERED: Ondansetron 4 MG/2 ML SDV IVPUSH ONE (07:14)
[2016-08-04 09:26] VITALS: BP 160/89
--- NOTE | 2016-08-06 09:24 | CR ---
Soft tissue neck: 2 views of the neck were obtained. Tapering of the subglottic space is seen compatible with subglottic edema. There is mildly prominent soft tissue swelling at the base of the epiglottis and difficult to exclude soft tissue swelling within the epiglottis. Degenerative change is noted within the spine. Previous facial bone surgery is noted. Impression: 1. Steepling of the subglottic space compatible with soft tissue swelling. 2. Soft tissue swelling at the base of the epiglottis and difficult to exclude soft tissue swelling within the epiglottis representing epiglottitis. Diagnostic code #5
--- NOTE | 2016-08-06 11:13 | CR ---
Chest: Frontal view of the chest was obtained. Comparison: Previous chest x-ray of 06/26/15. Heart size and mediastinum are normal. Lungs are clear. Bony structures are grossly intact. Stable lucency noted within the proximal left humerus. Previous left shoulder surgery is noted. Impression: 1. Nothing acute is identified on frontal chest x-ray. No appreciable change is seen from prior study. Diagnostic code #2
== END 2016-08-04 10:25 | disposition home or self-care (01) ==
LOC: JD.ED 06:24
DX: J05.0 Acute obstructive laryngitis [croup] (principal); F10.10 Alcohol abuse, uncomplicated; E03.9 Hypothyroidism, unspecified; K21.9 Gastro-esophageal reflux disease without esophagitis; E78.00 Pure hypercholesterolemia, unspecified; J45.909 Unspecified asthma, uncomplicated; F41.9 Anxiety disorder, unspecified; F32.9 Major depressive disorder, single episode, unspecified; Z79.899 Other long term (current) drug therapy; Z87.891 Personal history of nicotine dependence; Z88.8 Allergy status to other drugs, medicaments and biological substances; Z88.1 Allergy status to other antibiotic agents; Z88.6 Allergy status to analgesic agent; Y90.0 Blood alcohol level of less than 20 mg/100 ml; Z98.890 Other specified postprocedural states; Z90.49 Acquired absence of other specified parts of digestive tract
CPT/HCPCS: 36415; 70360; 71010; 80053; 80306; 85025; 86140; 96361; 96374; 96375; 99284; G0480; J2060; J2405; J7042; J8540

== ENCOUNTER 2018-12-15 23:04 | Emergency (ER) | payer BC ==
[2018-12-15 23:22] VITALS: BP 151/81; PULSE 107
[2018-12-16 00:54] LABS: ACETAMINOPHEN 0 ug/mL (10-30)
[2018-12-16] MEDS ORDERED: Ondansetron 4 MG Tab.DIS PO ONE (02:26)
--- NOTE | 2018-12-16 02:33 | EDM.PDOCBH ---
ED HPI GENERAL MEDICAL PROBLEM - General Chief Complaint: Drug or Alcohol Abuse Stated Complaint: ALCOHOL Time Seen by Provider: 12/16/18 02:04 Source of Information: Reports: Patient, Other (Neighbor, friend) History Limitations: Reports: No Limitations - History of Present Illness INITIAL COMMENTS - FREE TEXT/NARRATIVE: Ms. Smith is a very pleasant 62-year-old woman with past medical history significant for anxiety, depression, and binge alcoholism. She states that she was at [facility] alcohol rehab center in ([facility] from September 11 through November 22, and has been attending outpatient treatment at [facility] here in [place] every Saturday since, although she did not go yesterday, 12/15/2018. She states that she remained sober until this past , 12/11/2018, when she started drinking 3 or 4 of the airplane-sized bottles (1.7 oz each) of alcohol per day, but that she then drank 8 of them between 8 AM and 2 PM yesterday. She has not had anything to drink since then. She states that she started drinking again due to a number of stressors in her life, including breaking up with her boyfriend, her dog dying, and her father's birthday. She is brought to the ED by a neighbor and a friend because, she states, she does not want to be alone. She states that she fell and suffered a left black eye yesterday. She also reports having some nausea and vomiting around 00:45 this morning. The patient's PCP is Dr. Renard Verduzco. - Related Data Allergies Allergy/AdvReac Type Severity Reaction Status Date / Time levofloxacin [From Levaquin] Allergy Rash Verified 12/15/18 23:22 propoxyphene napsylate AdvReac Headache Verified 12/15/18 23:22 [From Darvocet-N] quetiapine fumarate AdvReac Confusion Verified 12/15/18 23:22 [From Seroquel] Home Meds: Home Meds DULoxetine [Cymbalta] 20 mg PO DAILY 05/24/16 [History] Fluticasone/Salmeterol [Advair 250-50 Diskus] 1 puff IH BID 05/24/16 [History] Potassium Chloride 20 meq PO DAILY 05/24/16 [History] atorvaSTATin [Lipitor] 10 mg PO DAILY 05/24/16 [History] LORazepam [Ativan] 1 mg PO Q8H PRN #20 tablet 08/04/16 [Rx] Ondansetron [Zofran ODT] 4 mg PO Q6H PRN #20 tab.dis 08/04/16 [Rx] Past Medical History HEENT History: Reports: Impaired Vision Other HEENT History: Patient states she wears glasses Cardiovascular History: Reports: High Cholesterol Respiratory History: Reports: Asthma (PFT-proven) Gastrointestinal History: Reports: GERD Psychiatric History: Reports: Addiction (alcohol), Anxiety, Depression, Eating Disorders (anorexia nervosa when 14 years old) Endocrine/Metabolic History: Reports: Osteoporosis - Infectious Disease History Infectious Disease History: Reports: Chicken Pox - Past Surgical History HEENT Surgical History: Reports: Adenoidectomy, Oral Surgery (dental extractions & implants), Tonsillectomy, Other (See Below) (Right facial fracture repair) GI Surgical History: Reports: Appendectomy Musculoskeletal Surgical History: Reports: ORIF (right forearm x 5), Shoulder Surgery (Left rotator cuff x 2, open. 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 Neurological: Reports: Headache (frequent) ED EXAM, BEHAVIORAL HEALTH - Physical Exam Exam: See Below Exam Limited By: No Limitations General Appearance: Alert, WD/WN, No Apparent Distress Eye Exam: Left Eye: Other (contusion around eye), Bilateral Eye: EOMI Ears: Normal External Exam, Hearing Grossly Normal Nose: Normal Inspection Throat/Mouth: Normal Inspection, Normal Lips, Normal Voice, No Airway Compromise Head: Atraumatic, Normocephalic Neck: Normal Inspection, Full Range of Motion Respiratory/Chest: No Respiratory Distress, Lungs Clear, Normal Breath Sounds, No Accessory Muscle Use Cardiovascular: Normal Peripheral Pulses, Regular Rate, Rhythm, No Edema, No Gallop, No JVD, No Murmur, No Rub GI/Abdominal: Normal Bowel Sounds, Soft, Non-Tender, No Organomegaly, No Distention, No Abnormal Bruit, No Mass (Female) Exam: Deferred Rectal (Female) Exam: Deferred Back Exam: Normal Inspection, Full Range of Motion, NT Extremities: Normal Inspection, Normal Range of Motion, No Pedal Edema, Normal Capillary Refill Neurological: Alert, Normal Cognition, No Motor/Sensory Deficits, Oriented x 3 Psychiatric: Normal Affect Skin Exam: Warm, Dry, Intact, Normal color, No rash EKG INTERPRETATION EKG Date: 12/16/18 Time: 00:14 Rhythm: NSR Rate (Beats/Min): 95 [place]: Normal P-Wave: Present QRS: Normal ST-T: Normal QT: Prolonged (QTc 518 ms) Comparison: Change From Previous EKG (QTc prolonged 05/27/2016, although not as much) COURSE, BEHAVIORAL HEALTH COMP - Course Vital Signs: Last Vital Signs Temp 36.6 C 12/15/18 23:20 Pulse 107 H 12/15/18 23:20 Resp 16 12/15/18 23:20 BP 151/81 H 12/15/18 23:20 Pulse Ox 98 12/15/18 23:20 Orders, Labs, Meds: Laboratory Tests 12/15/18 12/15/18 12/16/18 Range/Units 23:35 23:35 00:23 WBC 7.97 (3.98-10.04) K/mm3 RBC 4.11 (3.98-5.22) M/mm3 Hgb 12.6 (11.2-15.7) gm/dl Hct 38.6 (34.1-44.9) % MCV 93.9 (79.4-94.8) fl MCH 30.7 (25.6-32.2) pg MCHC 32.6 (32.2-35.5) g/dl RDW Std Deviation 45.6 (36.4-46.3) fL Plt Count 356 D (182-369) K/mm3 MPV 8.7 L (9.4-12.3) fl Neut % (Auto) 71.4 H (34.0-71.1) % Lymph % (Auto) 18.8 L (19.3-51.7) % Tripp % (Auto) 9.3 (4.7-12.5) % Eos % (Auto) 0 L (0.7-5.8) Baso % (Auto) 0.4 (0.1-1.2) % Neut # (Auto) 5.69 (1.56-6.13) K/mm3 Lymph # (Auto) 1.50 (1.18-3.74) K/mm3 Tripp # (Auto) 0.74 H (0.24-0.36) K/mm3 Eos # (Auto) 0.00 L (0.04-0.36) K/mm3 Baso # (Auto) 0.03 (0.01-0.08) K/mm3 Sodium (136-145) mEq/L Potassium (3.5-5.1) mEq/L Chloride (98-107) mEq/L Carbon Dioxide (21-32) mEq/L Anion Gap (5-15) BUN (7-18) mg/dL Creatinine (0.55-1.02) mg/dL Est Cr Clr Drug Dosing mL/min Estimated GFR (MDRD) (>60) mL/min BUN/Creatinine Ratio (14-18) Glucose (74-106) mg/dL Calcium (8.5-10.1) mg/dL Total Bilirubin (0.2-1.0) mg/dL AST (15-37) U/L ALT (14-59) U/L Alkaline Phosphatase (46-116) U/L Total Protein (6.4-8.2) g/dl Albumin (3.4-5.0) g/dl Globulin gm/dL Albumin/Globulin Ratio (1-2) Urine Color Yellow (Yellow) Urine Appearance Clear (Clear) Urine pH 7.0 (5.0-8.0) Ur Specific [place] 1.020 (1.005-1.030) Urine Protein 2+ H (Negative) Urine Glucose (UA) Negative (Negative) Urine Ketones Negative (Negative) Urine Occult Blood Negative (Negative) Urine Nitrite Negative (Negative) Urine Bilirubin Negative (Negative) Urine Urobilinogen 0.2 (0.2-1.0) Ur Leukocyte Esterase Trace H (Negative) Salicylates (2.8-20) mg/dL Urine Opiates Screen Negative (OAOQBM=971) Ur Buprenorphine Scrn Negative (CUTOFF=10) Ur Oxycodone Screen Negative (GKP7KB=775) Urine Methadone Screen Negative (TUTTNO=411) Ur Propoxyphene Screen Negative (BSDKTH=709) Acetaminophen (10-30) ug/mL Ur Barbiturates Screen Negative (WLHGOK=815) Ur Tricyclics Screen Negative (XWVBMZ=723) Ur Phencyclidine Scrn Negative (CUTOFF=25) Ur Amphetamine Screen Negative (HZOUFH=566) U Methamphetamines Scrn Negative (VFOWJX=093) U Benzodiazepines Scrn Negative (VOYIZD=982) U Cocaine Metab Screen Negative (WSMIMX=580) U Marijuana (THC) Screen Negative (CUTOFF=50) Ethyl Alcohol (0.00) gm% 12/16/18 12/16/18 Range/Units 00:23 00:23 WBC (3.98-10.04) K/mm3 RBC (3.98-5.22) M/mm3 Hgb (11.2-15.7) gm/dl Hct (34.1-44.9) % MCV (79.4-94.8) fl MCH (25.6-32.2) pg MCHC (32.2-35.5) g/dl RDW Std Deviation (36.4-46.3) fL Plt Count (182-369) K/mm3 MPV (9.4-12.3) fl Neut % (Auto) (34.0-71.1) % Lymph % (Auto) (19.3-51.7) % Tripp % (Auto) (4.7-12.5) % Eos % (Auto) (0.7-5.8) Baso % (Auto) (0.1-1.2) % Neut # (Auto) (1.56-6.13) K/mm3 Lymph # (Auto) (1.18-3.74) K/mm3 Tripp # (Auto) (0.24-0.36) K/mm3 Eos # (Auto) (0.04-0.36) K/mm3 Baso # (Auto) (0.01-0.08) K/mm3 Sodium 147 H (136-145) mEq/L Potassium 2.7 L (3.5-5.1) mEq/L Chloride 104 (98-107) mEq/L Carbon Dioxide 27 (21-32) mEq/L Anion Gap 18.7 H (5-15) BUN 10 (7-18) mg/dL Creatinine 0.7 (0.55-1.02) mg/dL Est Cr Clr Drug Dosing 61.20 mL/min Estimated GFR (MDRD) > 60 (>60) mL/min BUN/Creatinine Ratio 14.3 (14-18) Glucose 90 (74-106) mg/dL Calcium 8.3 L (8.5-10.1) mg/dL Total Bilirubin 0.5 (0.2-1.0) mg/dL AST 41 H (15-37) U/L ALT 38 (14-59) U/L Alkaline Phosphatase 89 (46-116) U/L Total Protein 6.7 (6.4-8.2) g/dl Albumin 4.1 (3.4-5.0) g/dl Globulin 2.6 gm/dL Albumin/Globulin Ratio 1.6 (1-2) Urine Color (Yellow) Urine Appearance (Clear) Urine pH (5.0-8.0) Ur Specific [place] (1.005-1.030) Urine Protein (Negative) Urine Glucose (UA) (Negative) Urine Ketones (Negative) Urine Occult Blood (Negative) Urine Nitrite (Negative) Urine Bilirubin (Negative) Urine Urobilinogen (0.2-1.0) Ur Leukocyte Esterase (Negative) Salicylates 0.7 L (2.8-20) mg/dL Urine Opiates Screen (TYNTIK=279) Ur Buprenorphine Scrn (CUTOFF=10) Ur Oxycodone Screen (GOO0TI=105) Urine Methadone Screen (YONRRB=992) Ur Propoxyphene Screen (PXTNXX=213) Acetaminophen 0 L (10-30) ug/mL Ur Barbiturates Screen (FBQPMF=335) Ur Tricyclics Screen (XPCIUR=668) Ur Phencyclidine Scrn (CUTOFF=25) Ur Amphetamine Screen (XIWWDF=788) U Methamphetamines Scrn (XZPSLO=954) U Benzodiazepines Scrn (JJJPVD=900) U Cocaine Metab Screen (BHOJGT=959) U Marijuana (THC) Screen (CUTOFF=50) Ethyl Alcohol 0.22 (0.00) gm% Medications Discontinued Medications Generic Name Dose Route Start Last Admin Trade Name Freq PRN Reason Stop Dose Admin Ondansetron HCl 4 mg 12/16/18 02:26 12/16/18 02:37 Zofran Odt PO 12/16/18 02:27 4 mg ONETIME ONE Administration Medical Clearance: 12/16/18 02:27 The patient has been drinking a relatively small amount of alcohol every day since , 12/11/2018, but a larger amount yesterday. This follows, however , a 10 week period of sobriety while she was at an inpatient treatment facility in [place]. Here in the emergency department at this time, she is clinically sober. Because of the relatively short period of time that she has been drinking , she is at virtually no risk for significant alcohol withdrawal symptoms, and therefore does not need to be admitted to the hospital. She does, however, need to get back into outpatient rehabilitation. She prefers to follow-up with Karl, her counselor at [facility], in the morning. I offered to place her into observation, or even keep her here in the emergency department overnight so that she could be seen by social media marketing specialist in the morning, but the patient declined that offer. Her friends stated that they will be nearby and on hand to keep an eye on the patient. The patient will be given a single dose of Zofran due to some recent nausea. She declined an offer for a prescription of Zofran. Departure - Departure Time of Disposition: 02:29 Disposition: Home, Self-Care 01 Condition: Good Clinical Impression: Alcoholism, Nausea and vomiting, QT prolongation - Discharge Information *PRESCRIPTION DRUG MONITORING PROGRAM REVIEWED*: Not Applicable *COPY OF PRESCRIPTION DRUG MONITORING REPORT IN PATIENT ANTHONY: Not Applicable Instructions: Alcohol Use Disorder, Nausea and Vomiting, Adult Referrals: Renard Verduzco MD [Primary Care Provider] - Additional Instructions: You were seen in the emergency room after resuming drinking following a 10 week period of sobriety while you were in inpatient alcohol treatment. Because of the relatively short period of time that you have been drinking since your long period of sobriety, you are not at significant risk for significant alcohol withdrawal symptoms, and therefore do not need to be admitted to the hospital. Having you see social media marketing specialist here in the hospital in the morning was offered, but declined. You prefer to follow-up with Karl, your counselor at [facility], in the morning. If, for some reason, you are unable to get in touch with Karl, or for any other concerns, please do not hesitate to return to the ER for reevaluation.
== END 2018-12-16 02:39 | disposition home or self-care (01) ==
LOC: JD.ED 23:04
DX: F10.20 Alcohol dependence, uncomplicated (principal); R11.2 Nausea with vomiting, unspecified; R94.31 Abnormal electrocardiogram [ECG] [EKG]; J45.909 Unspecified asthma, uncomplicated; E78.00 Pure hypercholesterolemia, unspecified; F41.9 Anxiety disorder, unspecified; F32.9 Major depressive disorder, single episode, unspecified; Z88.1 Allergy status to other antibiotic agents; Z88.8 Allergy status to other drugs, medicaments and biological substances; Z88.6 Allergy status to analgesic agent; Z79.899 Other long term (current) drug therapy; Z79.51 Long term (current) use of inhaled steroids
CPT/HCPCS: 36415; 80053; 80306; 80320; 80329; 81003; 85025; 93005; 99284; A9270; 93010; 99283; G0480

== ENCOUNTER 2018-12-21 19:52 | Inpatient (IN) | payer BC ==
--- NOTE | 2018-12-21 20:17 | CT ---
Head CT Technique: Multiple axial sections through the brain were obtained. Intravenous contrast was not utilized. Comparison: Prior head CT study is available with a date of 05/24/16. Findings: Ventricles along with basal cisterns and sulci over the convexities are moderately prominent. Atrophy is asymmetrically more prominent within the frontal regions. Atrophy has slightly increased from previous exam. Very minimal diminished density is noted within the periventricular white matter compatible with minimal small vessel ischemic demyelination change. No other abnormal parenchymal densities are seen. No evidence of intracranial hemorrhage. No midline shift or mass effect is seen. Mastoid sinuses are clear. Paranasal sinuses are also clear. No acute calvarial abnormality is seen. Impression: 1. Generalized atrophy which is asymmetrically greater within the frontal lobes. Atrophy has slightly increased from the previous exam. 2. Other senescent change as noted above. 3. Nothing acute is appreciated on noncontrast head CT exam. Diagnostic code #2
--- NOTE | 2018-12-21 20:21 | EDM.PDOC ---
ED HPI GENERAL MEDICAL PROBLEM - General Chief Complaint: Neuro Symptoms/Deficits Stated Complaint: [facility] Time Seen by Provider: 12/21/18 19:58 Source of Information: Reports: Family (Mother) History Limitations: Reports: No Limitations - History of Present Illness INITIAL COMMENTS - FREE TEXT/NARRATIVE: Ms. Smith is a very pleasant 63-year-old woman, well-known to me from a recent visit to the ED on 12/15/2018, with a past medical history significant for anxiety, depression, and binge alcoholism. She was at the [facility] alcohol rehabilitation center in [place], [place], from 09/11/2018 through 11/22/2018, followed by outpatient rehabilitation at [facility] here in [place] every Saturday. She resumed drinking on , 12/11/2018, initially a relatively small amount of 3 to 4.7 oz per day , but then 13.6 oz on the morning that I saw her, 12/15/2018. By the time I saw her that evening, she was sober and did not require hospitalization. The plan was for her to be monitored by friends and neighbors, then follow-up at [facility]. At this time, I do not know if the patient followed through on that plan. The patient is now brought back to the ED by EMS, called by her mother, who checked on her around 19:15 this evening, finding her passed out on the couch. The patient's mother tells me that she had been with her daughter up until around 15:00, and she knew that her daughter had been drinking, although she was relatively sober. EMS found that the patient opened her eyes to pain, but did not respond to verbal commands. The patient's mother tells me that her daughter is a "raging alcoholic", and that she has been to virtually every inpatient treatment facility in [place] at one time or another, and several outside [place], but that the patient apparently doesn't believe that she is an alcoholic. The patient's PCP is Dr. Renard Verduzco. 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: Other (see below) Other Treatments TRAVELING PLANT OPERATOR: iv per ambulance - Related Data Allergies Allergy/AdvReac Type Severity Reaction Status Date / Time levofloxacin [From Levaquin] Allergy Rash Verified 12/15/18 23:22 propoxyphene napsylate AdvReac Headache Verified 12/15/18 23:22 [From Darvocet-N] quetiapine fumarate AdvReac Confusion Verified 12/15/18 23:22 [From Seroquel] Home Meds: Home Meds DULoxetine [Cymbalta] 20 mg PO DAILY 05/24/16 [History] Fluticasone/Salmeterol [Advair 250-50 Diskus] 1 puff IH BID 05/24/16 [History] Potassium Chloride 20 meq PO DAILY 05/24/16 [History] atorvaSTATin [Lipitor] 10 mg PO DAILY 05/24/16 [History] LORazepam [Ativan] 1 mg PO Q8H PRN #20 tablet 08/04/16 [Rx] Ondansetron [Zofran ODT] 4 mg PO Q6H PRN #20 tab.dis 08/04/16 [Rx] Past Medical History HEENT History: Reports: Impaired Vision Other HEENT History: wears glasses Cardiovascular History: Reports: High Cholesterol Respiratory History: Reports: Asthma (PFT-proven) Gastrointestinal History: Reports: GERD Psychiatric History: Reports: Addiction (alcohol), Anxiety, Depression, Eating Disorders (anorexia nervosa when 14 years old) Endocrine/Metabolic History: Reports: Osteoporosis - Infectious Disease History Infectious Disease History: Reports: Chicken Pox - Past Surgical History HEENT Surgical History: Reports: Adenoidectomy, Oral Surgery (dental extractions and implants), Tonsillectomy, Other (See Below) (Right facial fracture repair) GI Surgical History: Reports: Appendectomy Musculoskeletal Surgical History: Reports: ORIF (right forearm x 5), Shoulder Surgery (Left rotator cuff x 2, open. 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) ED ROS GENERAL - Review of Systems Review Of Systems: ROS reveals no pertinent complaints other than HPI. Neurological: Reports: Headache (frequent) - Physical Exam Exam: See Below Exam Limited By: Altered Mental Status (Patient does not follow commands) General Appearance: WD/WN, No Apparent Distress, Lethargic Eye Exam: Bilateral Eye: PERRL Ears: Normal External Exam, Normal Canal, Normal TMs Nose: Normal Inspection, Normal Mucosa, No Blood Throat/Mouth: Normal Inspection, Normal Lips, Normal Teeth, Normal Gums, Normal Oropharynx, No Airway Compromise Head Exam: Atraumatic, Normocephalic Neck: Normal Inspection, Supple, Full Range of Motion Respiratory/Chest: No Respiratory Distress, Lungs Clear, Normal Breath Sounds, No Accessory Muscle Use. No: Decreased Breath Sounds, Crackles, Rhonchi, Wheezing, Stridor, Prolonged Expiration Cardiovascular: Normal Peripheral Pulses, Regular Rate, Rhythm, No Edema, No Gallop, No JVD, No Murmur, No Rub GI/Abdominal: Normal Bowel Sounds, Soft, No Organomegaly, No Distention, No Abnormal Bruit, No Mass (Female) Exam: Deferred Rectal (Female) Exam: Deferred Neuro Exam (Abbreviated): Unresponsive (opens eyes on occasion, but does not follow any commands) Back Exam: Normal Inspection, Full Range of Motion, NT Extremities: Normal Inspection, Normal Range of Motion, No Pedal Edema, Normal Capillary Refill Skin Exam: Warm, Dry, Intact, Normal Color, No Rash EKG INTERPRETATION EKG Date: 12/21/18 Time: 20:03 Rhythm: NSR Rate (Beats/Min): 90 [place]: Normal P-Wave: Present QRS: Normal ST-T: Normal QT: Prolonged (QTc 484 ms) Comparison: No Change (12/16/2018) Course - Vital Signs Last Recorded V/S: Last Vital Signs Temp 35.8 C 12/21/18 20:08 Pulse 88 12/21/18 20:08 Resp 14 12/21/18 20:08 BP 123/88 12/21/18 20:08 Pulse Ox 94 L 12/21/18 20:08 - Orders/Labs/Meds Orders: Active Orders 24 hr Category Date Time Status EKG Documentation Completion [RC] STAT Care 12/21/18 20:09 Active Chest 1V Frontal [CR] Stat Exams 12/21/18 20:09 Taken Sodium Chloride 0.9% [Normal Saline] 1,000 ml Med 12/21/18 20:30 Active IV ASDIRECTED Medication Orders Sodium Chloride (Normal Saline) 1,000 mls @ 150 mls/hr IV ASDIRECTED STEPHANE Last Admin: 12/21/18 20:27 Dose: 150 mls/hr Labs: Laboratory Tests 12/21/18 12/21/18 12/21/18 Range/Units 20:20 20:20 20:20 WBC 4.73 (3.98-10.04) K/mm3 RBC 4.47 (3.98-5.22) M/mm3 Hgb 13.3 (11.2-15.7) gm/dl Hct 42.1 (34.1-44.9) % MCV 94.2 (79.4-94.8) fl MCH 29.8 (25.6-32.2) pg MCHC 31.6 L (32.2-35.5) g/dl RDW Std Deviation 46.0 (36.4-46.3) fL Plt Count 261 D (182-369) K/mm3 MPV 9.0 L (9.4-12.3) fl Neut % (Auto) 52.2 (34.0-71.1) % Lymph % (Auto) 40.0 (19.3-51.7) % [place] % (Auto) 6.6 (4.7-12.5) % Eos % (Auto) 0.6 L (0.7-5.8) Baso % (Auto) 0.4 (0.1-1.2) % Neut # (Auto) 2.47 (1.56-6.13) K/mm3 Lymph # (Auto) 1.89 (1.18-3.74) K/mm3 [place] # (Auto) 0.31 (0.24-0.36) K/mm3 Eos # (Auto) 0.03 L (0.04-0.36) K/mm3 Baso # (Auto) 0.02 (0.01-0.08) K/mm3 PT 10.3 (9.7-12.0) SECONDS INR 0.94 APTT 22 (22-31) SECONDS D-Dimer, Quantitative 0.35 (0.19-0.50) mg/L Sodium 146 H (136-145) mEq/L Potassium 2.4 L* (3.5-5.1) mEq/L Chloride 104 (98-107) mEq/L Carbon Dioxide 33 H (21-32) mEq/L Anion Gap 11.4 (5-15) BUN 14 (7-18) mg/dL Creatinine 0.6 (0.55-1.02) mg/dL Est Cr Clr Drug Dosing 85.03 mL/min Estimated GFR (MDRD) > 60 (>60) mL/min BUN/Creatinine Ratio 23.3 H (14-18) Glucose 88 (80-115) mg/dL Calcium 8.2 L (8.5-10.1) mg/dL Magnesium 2.0 (1.8-2.4) mg/dl Total Bilirubin 0.2 (0.2-1.0) mg/dL AST 23 (15-37) U/L ALT 32 (14-59) U/L Alkaline Phosphatase 85 (46-116) U/L Troponin I < 0.017 (0.00-0.056) ng/mL Total Protein 6.9 (6.4-8.2) g/dl Albumin 3.9 (3.4-5.0) g/dl Globulin 3.0 gm/dL Albumin/Globulin Ratio 1.3 (1-2) TSH 3rd Generation 1.035 (0.358-3.74) uIU/mL Urine Color (Yellow) Urine Appearance (Clear) Urine pH (5.0-8.0) Ur Specific [place] (1.005-1.030) Urine Protein (Negative) Urine Glucose (UA) (Negative) Urine Ketones (Negative) Urine Occult Blood (Negative) Urine Nitrite (Negative) Urine Bilirubin (Negative) Urine Urobilinogen (0.2-1.0) Ur Leukocyte Esterase (Negative) Urine RBC (0-5) /hpf Urine WBC (0-5) /hpf Ur Squamous Epith Cells (0-5) /hpf Urine Bacteria (FEW) /hpf Urine Mucus (FEW) /hpf Salicylates (2.8-20) mg/dL Urine Opiates Screen (NTNCKM=412) Ur Buprenorphine Scrn (CUTOFF=10) Ur Oxycodone Screen (USF1MI=622) Urine Methadone Screen (LJUEZG=143) Ur Propoxyphene Screen (OBVDGP=332) Acetaminophen 0 L (10-30) ug/mL Ur Barbiturates Screen (WSBBGK=880) Ur Tricyclics Screen (WZEJLX=451) Ur Phencyclidine Scrn (CUTOFF=25) Ur Amphetamine Screen (UOUTDY=059) U Methamphetamines Scrn (TPLLRM=065) U Benzodiazepines Scrn (CMYUIW=642) U Cocaine Metab Screen (WEZBLU=615) U Marijuana (THC) Screen (CUTOFF=50) Ethyl Alcohol 0.50 (0.00) gm% 12/21/18 12/21/18 12/21/18 Range/Units 20:20 20:38 20:38 WBC (3.98-10.04) K/mm3 RBC (3.98-5.22) M/mm3 Hgb (11.2-15.7) gm/dl Hct (34.1-44.9) % MCV (79.4-94.8) fl MCH (25.6-32.2) pg MCHC (32.2-35.5) g/dl RDW Std Deviation (36.4-46.3) fL Plt Count (182-369) K/mm3 MPV (9.4-12.3) fl Neut % (Auto) (34.0-71.1) % Lymph % (Auto) (19.3-51.7) % [place] % (Auto) (4.7-12.5) % Eos % (Auto) (0.7-5.8) Baso % (Auto) (0.1-1.2) % Neut # (Auto) (1.56-6.13) K/mm3 Lymph # (Auto) (1.18-3.74) K/mm3 [place] # (Auto) (0.24-0.36) K/mm3 Eos # (Auto) (0.04-0.36) K/mm3 Baso # (Auto) (0.01-0.08) K/mm3 PT (9.7-12.0) SECONDS INR APTT (22-31) SECONDS D-Dimer, Quantitative (0.19-0.50) mg/L Sodium (136-145) mEq/L Potassium (3.5-5.1) mEq/L Chloride (98-107) mEq/L Carbon Dioxide (21-32) mEq/L Anion Gap (5-15) BUN (7-18) mg/dL Creatinine (0.55-1.02) mg/dL Est Cr Clr Drug Dosing mL/min Estimated GFR (MDRD) (>60) mL/min BUN/Creatinine Ratio (14-18) Glucose (80-115) mg/dL Calcium (8.5-10.1) mg/dL Magnesium (1.8-2.4) mg/dl Total Bilirubin (0.2-1.0) mg/dL AST (15-37) U/L ALT (14-59) U/L Alkaline Phosphatase (46-116) U/L Troponin I (0.00-0.056) ng/mL Total Protein (6.4-8.2) g/dl Albumin (3.4-5.0) g/dl Globulin gm/dL Albumin/Globulin Ratio (1-2) TSH 3rd Generation (0.358-3.74) uIU/mL Urine Color Light yellow (Yellow) Urine Appearance Clear (Clear) Urine pH 7.0 (5.0-8.0) Ur Specific [place] 1.010 (1.005-1.030) Urine Protein Negative (Negative) Urine Glucose (UA) Negative (Negative) Urine Ketones Negative (Negative) Urine Occult Blood 2+ H (Negative) Urine Nitrite Negative (Negative) Urine Bilirubin Negative (Negative) Urine Urobilinogen 0.2 (0.2-1.0) Ur Leukocyte Esterase Negative (Negative) Urine RBC 0-5 (0-5) /hpf Urine WBC 0-5 (0-5) /hpf Ur Squamous Epith Cells 0-5 (0-5) /hpf Urine Bacteria Few (FEW) /hpf Urine Mucus Not seen (FEW) /hpf Salicylates 1.3 L (2.8-20) mg/dL Urine Opiates Screen Negative (AJCQHP=914) Ur Buprenorphine Scrn Negative (CUTOFF=10) Ur Oxycodone Screen Negative (LVD3ZQ=394) Urine Methadone Screen Negative (GUMWWR=116) Ur Propoxyphene Screen Negative (OSUOJT=770) Acetaminophen (10-30) ug/mL Ur Barbiturates Screen Negative (CRNVGH=537) Ur Tricyclics Screen Negative (TYHVLM=947) Ur Phencyclidine Scrn Negative (CUTOFF=25) Ur Amphetamine Screen Negative (ASWDTZ=120) U Methamphetamines Scrn Negative (PZRZNV=074) U Benzodiazepines Scrn Negative (PPQSIF=736) U Cocaine Metab Screen Negative (IYKGUY=510) U Marijuana (THC) Screen Negative (CUTOFF=50) Ethyl Alcohol (0.00) gm% Meds: Medications Generic Name Dose Route Start Last Admin Trade Name Freq PRN Reason Stop Dose Admin Sodium Chloride 1,000 mls @ 150 mls/hr 12/21/18 20:30 12/21/18 20:27 Normal Saline IV 150 mls/hr ASDIRECTED STEPHANE Administration Discontinued Medications Generic Name Dose Route Start Last Admin Trade Name Abelardo PRN Reason Stop Dose Admin Potassium Chloride 10 meq/ 100 mls @ 100 mls/hr 12/21/18 21:22 12/21/18 21:27 Premix IV 12/21/18 22:21 100 mls/hr Q1H STA Administration - Re-Assessments/Exams Free Text/Narrative Re-Assessment/Exam: 12/21/18 20:20 The patient periodically opened her eyes during my physical exam, however, she did not follow any commands. I suspect that she is intoxicated, but I have ordered an exhaustive workup to evaluate for an altered mental status, including a CT scan of her head, bloodwork, a portable chest x-ray, a urinalysis and urine drug screen, and an ECG. 12/21/18 20:28 CT of the head without contrast is read by Dr. Johnston as: 1. Generalized atrophy which is asymmetrically greater within the frontal lobes. Atrophy has slightly increased from the previous exam. 2. Other senescent change as noted above. 3. Nothing acute is appreciated on noncontrast head CT exam. 12/21/18 21:23 Portable chest radiograph reviewed. The patient is mildly malrotated to the left. The cardiac silhouette is within normal limits. No pulmonary vascular congestion. No pleural effusion seen on this AP view. No focal infiltrate. No pneumothorax. Formal read per the Radiologist pending. The patient's CBC is unremarkable. Her CMP is remarkable for a sodium slightly elevated at 146, potassium depressed at 2.4, bicarbonate elevated at 33, and calcium mildly depressed at 8.2, with the remainder of her CMP being unremarkable. Her magnesium level is within normal limits at 2.0. Her troponin is undetectably low. Her TSH is within normal limits at 1.035. Her D-dimer is within normal limits at 0.35. Her coags are within normal limits. Her salicylate level is within normal limits at 1.3. Her EtOH level is substantially elevated at 0.50. Her urine drug screen is completely negative. The acetaminophen level is still pending. I have ordered IV potassium chloride replacement at 10 mEq per hour. The patient will need to be hospitalized. 12/21/18 22:05 The patient's acetaminophen level is 0. 12/21/18 22:[address] Lam at 22:07. He accepted the patient for admission into the ICU. Departure - Departure Time of Disposition: 22:10 Disposition: Admitted As Inpatient 68 Condition: Fair Clinical Impression: Alcohol intoxication, Alcohol consumption binge drinking, Hypokalemia - Discharge Information *PRESCRIPTION DRUG MONITORING PROGRAM REVIEWED*: Not Applicable *COPY OF PRESCRIPTION DRUG MONITORING REPORT IN PATIENT ANTHONY: Not Applicable Referrals: Renard Verduzco MD [Primary Care Provider] - Forms: ED Department Discharge - My Orders Last 24 Hours: My Active Orders 12/21/18 20:09 EKG Documentation Completion [RC] STAT Chest 1V Frontal [CR] Stat 12/21/18 20:30 Sodium Chloride 0.9% [Normal Saline] 1,000 ml IV ASDIRECTED - Assessment/Plan Last 24 Hours: My Active Orders 12/21/18 20:09 EKG Documentation Completion [RC] STAT Chest 1V Frontal [CR] Stat 12/21/18 20:30 Sodium Chloride 0.9% [Normal Saline] 1,000 ml IV ASDIRECTED
[2018-12-21] MEDS ORDERED: Sodium Chloride 0.9% 1,000 ML IV SCH (20:30)
[2018-12-21] MEDS ORDERED: Potassium Chloride 10 MEQ in Premix Bag 1 BAG IV STA (21:22)
[2018-12-21 21:23] LABS: ACETAMINOPHEN 0 ug/mL (10-30)
[2018-12-21] MEDS ORDERED: Albuterol 0.083% 2.5 MG/3 ML Neb Soln NEB PRN (22:49)
[2018-12-21] MEDS ORDERED: Albuterol/Ipratropium 3.0-0.5 MG/3 ML Neb Soln NEB PRN (22:49)
[2018-12-21] MEDS ORDERED: Ibuprofen 600 MG Tab PO PRN (22:49)
[2018-12-21] MEDS ORDERED: LORazepam 2 MG/ML SDV IVPUSH PRN (22:54)
[2018-12-21] MEDS ORDERED: LORazepam 0.5 MG Tab PO PRN (22:55)
[2018-12-21] MEDS ORDERED: Dextrose 5%-0.45% NaCl 1,000 ML IV SCH (23:00)
[2018-12-21] MEDS: Thiamine 200 MG/2 ML MDV IVPUSH SCH (23:04)
[2018-12-21] MEDS: Pantoprazole 40 MG Vial IV SCH (23:04)
[2018-12-21] MEDS: Potassium Chloride 10 MEQ in Premix Bag 1 BAG IV SCH (23:04)
--- NOTE | 2018-12-21 23:12 | PCM.HP.2 ---
H&P History of Present Illness - General Date of Service: 12/21/18 Admit Problem/Dx: Admission Diagnosis/Problem Admission Diagnosis/Problem Hypokalemia - History of Present Illness Initial Comments - Free Text/Narative: Patient is a 63-year-old female who is brought to the emergency department by EMS, called by her mother, secondary to her being found passed out on the couch. Patient was essentially noncommunicative with me so history is obtained through the emergency room physician and his notes. Patient was seen on December 15, 2018 after a binge of 13.6 ounces of hard liquor. At the time of presentation on the she was sober and did not require hospitalization. Patient has been in and out of rehabilitation and was recently in [facility] in [place], [place] from 2018 - 11/22/2018, followed by outpatient rehabilitaion at [facility] here in [place] every Saturday. She resumed drinking on December 11, 2018, initially a relatively small amount of 3-4.7 ounces per day. Mother states that she was with her daughter at 1500 and that she had been drinking but appeared relatively sober. At 1915 this evening she was found passed out on the couch by EMS. Mother states that her daughter is a "raging alcoholic" and that she has been virtually every inpatient treatment facility in [place]. CT of the head: 1. Generalized atrophy which is asymmetrically greater within the frontal lobes. Atrophy has increased slightly from the previous exam. Emergency room labs: White count 4.73, hemoglobin 13.3, platelets 261, PT 10.3, APTT 22, d-dimer 0.35. Chemistries: Sodium 146, potassium 2.4, chloride 104, bicarbonate 33, BUN 14, creatinine 0.6, anion gap 11.4, magnesium 2.0. Normal LFTs. EtOH 0.50. Patient was started on IV fluids, was given her first 10 mEq of potassium IV, chest x-ray which is rotated but showed nothing significant, and transferred to the ICU for further treatment of her hypokalemia, alcohol detox, and long term care social worker. - Related Data Allergies/Adverse Reactions: Allergies Allergy/AdvReac Type Severity Reaction Status Date / Time levofloxacin [From Levaquin] Allergy Rash Verified 12/15/18 23:22 propoxyphene napsylate AdvReac Headache Verified 12/15/18 23:22 [From Darvocet-N] quetiapine fumarate AdvReac Confusion Verified 12/15/18 23:22 [From Seroquel] Home Medications: Home Meds DULoxetine [Cymbalta] 20 mg PO DAILY 05/24/16 [History] Fluticasone/Salmeterol [Advair 250-50 Diskus] 1 puff IH BID 05/24/16 [History] Potassium Chloride 20 meq PO DAILY 05/24/16 [History] atorvaSTATin [Lipitor] 10 mg PO DAILY 05/24/16 [History] LORazepam [Ativan] 1 mg PO Q8H PRN #20 tablet 08/04/16 [Rx] Ondansetron [Zofran ODT] 4 mg PO Q6H PRN #20 tab.dis 08/04/16 [Rx] Past Medical History HEENT History: Reports: Impaired Vision Other HEENT History: wears glasses Cardiovascular History: Reports: High Cholesterol Respiratory History: Reports: Asthma (PFT-proven) Gastrointestinal History: Reports: GERD Genitourinary History: Reports: UTI, Recurrent 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: Reports: Other (See Below) Other OB/BYN History: Patient states she started menopause at 54 yoa Neurological History: Reports: Headaches, Chronic Other Neuro History: headaches Psychiatric History: Reports: Addiction (alcohol), Anxiety, Depression, Eating Disorders (anorexia nervosa when 14 years old) Other Psychiatric History: eaating disorder at age 14 Endocrine/Metabolic History: Reports: Osteoporosis Immunologic History: Reports: Other (See Below) Other Immunologic History: recurrent staph infections - Infectious Disease History Infectious Disease History: Reports: Chicken Pox - Past Surgical History HEENT Surgical History: Reports: Adenoidectomy, Oral Surgery (dental extractions and implants), Tonsillectomy, Other (See Below) (Right facial fracture repair) GI Surgical History: Reports: Appendectomy Musculoskeletal Surgical History: Reports: ORIF (right forearm x 5), Shoulder Surgery (Left rotator cuff x 2, open. 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[employer]) H&P Review of Systems - Review of Systems: Review Of Systems: Unable To Obtain Exam - Exam Exam: See Below - Vital Signs Vital Signs: Last Vital Signs Temp 96.4 F 12/21/18 20:08 Pulse 88 12/21/18 20:08 Resp 14 12/21/18 20:08 BP 123/88 12/21/18 20:08 Pulse Ox 94 L 12/21/18 20:08 Weight: 150 lb - Exam Quality Assessment: No: Supplemental Oxygen General: Obtunded HEENT: Conjunctiva Clear Neck: Supple, Trachea Midline Lungs: Normal Respiratory Effort, Crackles (Slight bibasilar crackles worse in the left.) Cardiovascular: Regular Rate, Regular Rhythm GI/Abdominal Exam: Normal Bowel Sounds, Soft, Non-Tender Back Exam: Normal Inspection Extremities: Normal Inspection, Normal Range of Motion, Non-Tender, No Pedal Edema, Normal Capillary Refill Skin: Warm, Dry, Intact Neuro Extensive - Mental Status: Opens Eyes to Commands, Slow Response to Commands Psychiatric: Other (Intoxicated) - Patient Data Lab Results Last 24 hrs: Laboratory Results - last 24 hr 12/21/18 12/21/18 12/21/18 Range/Units 20:20 20:20 20:20 WBC 4.73 (3.98-10.04) K/mm3 RBC 4.47 (3.98-5.22) M/mm3 Hgb 13.3 (11.2-15.7) gm/dl Hct 42.1 (34.1-44.9) % MCV 94.2 (79.4-94.8) fl MCH 29.8 (25.6-32.2) pg MCHC 31.6 L (32.2-35.5) g/dl RDW Std Deviation 46.0 (36.4-46.3) fL Plt Count 261 D (182-369) K/mm3 MPV 9.0 L (9.4-12.3) fl Neut % (Auto) 52.2 (34.0-71.1) % Lymph % (Auto) 40.0 (19.3-51.7) % [place]anner % (Auto) 6.6 (4.7-12.5) % Eos % (Auto) 0.6 L (0.7-5.8) Baso % (Auto) 0.4 (0.1-1.2) % Neut # (Auto) 2.47 (1.56-6.13) K/mm3 Lymph # (Auto) 1.89 (1.18-3.74) K/mm3 Banner # (Auto) 0.31 (0.24-0.36) K/mm3 Eos # (Auto) 0.03 L (0.04-0.36) K/mm3 Baso # (Auto) 0.02 (0.01-0.08) K/mm3 PT 10.3 (9.7-12.0) SECONDS INR 0.94 APTT 22 (22-31) SECONDS D-Dimer, Quantitative 0.35 (0.19-0.50) mg/L Sodium 146 H (136-145) mEq/L Potassium 2.4 L* (3.5-5.1) mEq/L Chloride 104 (98-107) mEq/L Carbon Dioxide 33 H (21-32) mEq/L Anion Gap 11.4 (5-15) BUN 14 (7-18) mg/dL Creatinine 0.6 (0.55-1.02) mg/dL Est Cr Clr Drug Dosing 85.03 mL/min Estimated GFR (MDRD) > 60 (>60) mL/min BUN/Creatinine Ratio 23.3 H (14-18) Glucose 88 (80-115) mg/dL Calcium 8.2 L (8.5-10.1) mg/dL Magnesium 2.0 (1.8-2.4) mg/dl Total Bilirubin 0.2 (0.2-1.0) mg/dL AST 23 (15-37) U/L ALT 32 (14-59) U/L Alkaline Phosphatase 85 (46-116) U/L Troponin I < 0.017 (0.00-0.056) ng/mL Total Protein 6.9 (6.4-8.2) g/dl Albumin 3.9 (3.4-5.0) g/dl Globulin 3.0 gm/dL Albumin/Globulin Ratio 1.3 (1-2) TSH 3rd Generation 1.035 (0.358-3.74) uIU/mL Urine Color (Yellow) Urine Appearance (Clear) Urine pH (5.0-8.0) Ur Specific [place] (1.005-1.030) Urine Protein (Negative) Urine Glucose (UA) (Negative) Urine Ketones (Negative) Urine Occult Blood (Negative) Urine Nitrite (Negative) Urine Bilirubin (Negative) Urine Urobilinogen (0.2-1.0) Ur Leukocyte Esterase (Negative) Urine RBC (0-5) /hpf Urine WBC (0-5) /hpf Ur Squamous Epith Cells (0-5) /hpf Urine Bacteria (FEW) /hpf Urine Mucus (FEW) /hpf Salicylates (2.8-20) mg/dL Urine Opiates Screen (DIDWFN=120) Ur Buprenorphine Scrn (CUTOFF=10) Ur Oxycodone Screen (XTQ2FZ=245) Urine Methadone Screen (GKWRRJ=407) Ur Propoxyphene Screen (OEUAZV=627) Acetaminophen 0 L (10-30) ug/mL Ur Barbiturates Screen (UGYWDS=631) Ur Tricyclics Screen (CRWVQL=461) Ur Phencyclidine Scrn (CUTOFF=25) Ur Amphetamine Screen (FUCYKC=818) U Methamphetamines Scrn (NRLSIB=432) U Benzodiazepines Scrn (ZUWOCZ=751) U Cocaine Metab Screen (TMTGMG=073) U Marijuana (THC) Screen (CUTOFF=50) Ethyl Alcohol 0.50 (0.00) gm% 12/21/18 12/21/18 12/21/18 Range/Units 20:20 20:38 20:38 WBC (3.98-10.04) K/mm3 RBC (3.98-5.22) M/mm3 Hgb (11.2-15.7) gm/dl Hct (34.1-44.9) % MCV (79.4-94.8) fl MCH (25.6-32.2) pg MCHC (32.2-35.5) g/dl RDW Std Deviation (36.4-46.3) fL Plt Count (182-369) K/mm3 MPV (9.4-12.3) fl Neut % (Auto) (34.0-71.1) % Lymph % (Auto) (19.3-51.7) % Banner % (Auto) (4.7-12.5) % Eos % (Auto) (0.7-5.8) Baso % (Auto) (0.1-1.2) % Neut # (Auto) (1.56-6.13) K/mm3 Lymph # (Auto) (1.18-3.74) K/mm3 [place]anner # (Auto) (0.24-0.36) K/mm3 Eos # (Auto) (0.04-0.36) K/mm3 Baso # (Auto) (0.01-0.08) K/mm3 PT (9.7-12.0) SECONDS INR APTT (22-31) SECONDS D-Dimer, Quantitative (0.19-0.50) mg/L Sodium (136-145) mEq/L Potassium (3.5-5.1) mEq/L Chloride (98-107) mEq/L Carbon Dioxide (21-32) mEq/L Anion Gap (5-15) BUN (7-18) mg/dL Creatinine (0.55-1.02) mg/dL Est Cr Clr Drug Dosing mL/min Estimated GFR (MDRD) (>60) mL/min BUN/Creatinine Ratio (14-18) Glucose (80-115) mg/dL Calcium (8.5-10.1) mg/dL Magnesium (1.8-2.4) mg/dl Total Bilirubin (0.2-1.0) mg/dL AST (15-37) U/L ALT (14-59) U/L Alkaline Phosphatase (46-116) U/L Troponin I (0.00-0.056) ng/mL Total Protein (6.4-8.2) g/dl Albumin (3.4-5.0) g/dl Globulin gm/dL Albumin/Globulin Ratio (1-2) TSH 3rd Generation (0.358-3.74) uIU/mL Urine Color Light yellow (Yellow) Urine Appearance Clear (Clear) Urine pH 7.0 (5.0-8.0) Ur Specific [place] 1.010 (1.005-1.030) Urine Protein Negative (Negative) Urine Glucose (UA) Negative (Negative) Urine Ketones Negative (Negative) Urine Occult Blood 2+ H (Negative) Urine Nitrite Negative (Negative) Urine Bilirubin Negative (Negative) Urine Urobilinogen 0.2 (0.2-1.0) Ur Leukocyte Esterase Negative (Negative) Urine RBC 0-5 (0-5) /hpf Urine WBC 0-5 (0-5) /hpf Ur Squamous Epith Cells 0-5 (0-5) /hpf Urine Bacteria Few (FEW) /hpf Urine Mucus Not seen (FEW) /hpf Salicylates 1.3 L (2.8-20) mg/dL Urine Opiates Screen Negative (HIQJWS=665) Ur Buprenorphine Scrn Negative (CUTOFF=10) Ur Oxycodone Screen Negative (LXM1FM=169) Urine Methadone Screen Negative (VMACPY=901) Ur Propoxyphene Screen Negative (SDTZCP=119) Acetaminophen (10-30) ug/mL Ur Barbiturates Screen Negative (BOQAWV=035) Ur Tricyclics Screen Negative (ZVORKY=385) Ur Phencyclidine Scrn Negative (CUTOFF=25) Ur Amphetamine Screen Negative (HVZQUP=647) U Methamphetamines Scrn Negative (EXZRME=324) U Benzodiazepines Scrn Negative (TPCZWS=862) U Cocaine Metab Screen Negative (SSQQHO=419) U Marijuana (THC) Screen Negative (CUTOFF=50) Ethyl Alcohol (0.00) gm% Result Diagrams: 12/21/18 20:20 12/21/18 20:20 Problem List Initiated/Reviewed/Updated: Yes Orders Last 24hrs: Active Orders 24 hr Category Date Time Status Patient Status [ADT] Routine ADT 12/21/18 22:34 Active CIWAA Assessment [RC] Q1H Care 12/21/18 22:57 Ordered EKG Documentation Completion [RC] STAT Care 12/21/18 20:09 Active Oxygen Therapy [RC] PRN Care 12/21/18 22:49 Ordered RT Aerosol Therapy [RC] ASDIRECTED Care 12/21/18 22:52 Ordered Up With Assistance [RC] ASDIRECTED Care 12/21/18 22:49 Ordered VTE/DVT Education [RC] PER UNIT ROUTINE Care 12/21/18 22:49 Ordered Vital Signs [RC] Q4H Care 12/21/18 22:49 Ordered Consult to Case Management/Shot [employer] Drill Operator Helper [CONS] Cons 12/21/18 22:52 Ordered Routine Consult to Analytical Lab Analyst [CONS] Routine Cons 12/21/18 22:52 Ordered Clear Liquid Diet [DIET] Diet 12/22/18 Breakfast Ordered Chest 1V Frontal [CR] Stat Exams 12/21/18 20:09 Taken CBC WITH AUTO DIFF [HEME] AM Lab 12/22/18 05:11 Ordered CBC WITH AUTO DIFF [HEME] AM Lab 12/23/18 05:11 Ordered CBC WITH AUTO DIFF [HEME] AM Lab 12/24/18 05:11 Ordered COMPREHENSIVE METABOLIC PN,CMP [CHEM] AM Lab 12/22/18 05:11 Ordered COMPREHENSIVE METABOLIC PN,CMP [CHEM] AM Lab 12/23/18 05:11 Ordered COMPREHENSIVE METABOLIC PN,CMP [CHEM] AM Lab 12/24/18 05:11 Ordered ETOH [ETHANOL BLOOD MEDICAL] [CHEM] AM Lab 12/22/18 05:11 Ordered MAGNESIUM [CHEM] AM Lab 12/22/18 05:11 Ordered MAGNESIUM [CHEM] AM Lab 12/23/18 05:11 Ordered MAGNESIUM [CHEM] AM Lab 12/24/18 05:11 Ordered Albuterol [Proventil Neb Soln] Med 12/21/18 22:49 Ordered 2.5 mg NEB Q2H PRN Albuterol/Ipratropium [DuoNeb 3.0-0.5 MG/3 ML] Med 12/21/18 22:49 Ordered 3 ml NEB Q4H PRN Dextrose 5%-1/2 Normal Saline @ 125 MLS/HR(1000ml) Med 12/21/18 23:00 Ordered Dextrose 5%-0.45% NaCl [Dextrose 5%-1/2 NS] 1,000 ml IV ASDIRECTED Enoxaparin [Lovenox] Med 12/22/18 09:00 Ordered 40 mg SUBCUT DAILY Folic Acid Med 12/22/18 09:00 Ordered 1 mg PO DAILY Ibuprofen [Motrin] Med 12/21/18 22:49 Ordered 600 mg PO Q6H PRN LORazepam [Ativan] Med 12/21/18 22:54 Ordered See Protocol IVPUSH Q1H PRN LORazepam [Ativan] Med 12/21/18 22:55 Ordered See Protocol PO Q1H PRN Pantoprazole [ProTONIX IV] Med 12/21/18 23:00 Ordered 40 mg IV Q12HR Potassium Chloride [KCl 10 MEQ in Water 100 ML] 10 meq Med 12/21/18 22:45 Ordered Premix Bag 1 bag IV Q1H Sodium Chloride 0.9% [Normal Saline] 1,000 ml Med 12/21/18 20:30 Active IV ASDIRECTED Thiamine [Vitamin B-1] Med 12/21/18 23:00 Ordered 100 mg IVPUSH Q8H Resuscitation Status Routine Resus Stat 12/21/18 22:49 Ordered Medication Orders Albuterol (Proventil Neb Soln) 2.5 mg NEB Q2H PRN PRN Reason: Shortness Of Breath/wheezing Albuterol/Ipratropium (Duoneb 3.0-0.5 Mg/3 Ml) 3 ml NEB Q4H PRN PRN Reason: Shortness Of Breath/wheezing Enoxaparin Sodium (Lovenox) 40 mg SUBCUT DAILY STEPHANE Folic Acid (Folic Acid) 1 mg PO DAILY [facility] Sodium Chloride (Normal Saline) 1,000 mls @ 150 mls/hr IV ASDIRECTED [facility] Last Admin: 12/21/18 20:27 Dose: 150 mls/hr Potassium Chloride 10 meq/ (Premix) 100 mls @ 100 mls/hr IV Q1H STEPHANE Stop: 12/22/18 03:59 Dextrose/Sodium Chloride (Dextrose 5%-1/2 Ns) 1,000 mls @ 125 mls/hr IV ASDIRECTED [facility] Ibuprofen (Motrin) 600 mg PO Q6H PRN PRN Reason: Pain (moderate 4-6) Lorazepam (Ativan) 0 mg IVPUSH Q1H PRN; Protocol PRN Reason: Withdrawal Symptoms Lorazepam (Ativan) 0 mg PO Q1H PRN; Protocol PRN Reason: Withdrawal Symptoms Pantoprazole Sodium (Protonix Iv) 40 mg IV Q12HR STEPHANE Thiamine HCl (Vitamin B-1) 100 mg IVPUSH Q8H [facility] Assessment/Plan Comment:: Assessment * Acute alcoholic intoxication * Hypokalemia * Dehydration * Alcohol binge drinking * Patient overall prognosis is poor. 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 She has been in and out of multiple treatment facilities for multiple years. She just came out of treatment that she was in full last 3 months and quickly relapsed. Plan * Admit to ICU for close monitoring * CIWA protocol with Ativan protocol * IV rehydration * Thiamine 100 mg IV now and every 8 hours * Folic acid 1 mg daily * CBC, CMP, magnesium daily. EtOH tomorrow morning. * Case management and long term care social worker consult * Dietary consult * VTE prophylaxis with Lovenox * CODE STATUS full code * Get more detailed history when patient wakes up.
[2018-12-22] MEDS: Potassium Chloride 10 MEQ in Premix Bag 1 BAG IV SCH ×4 (00:20→03:02)
[2018-12-22] MEDS: Thiamine 200 MG/2 ML MDV IVPUSH SCH ×3 (06:20→21:59)
--- NOTE | 2018-12-22 07:05 | CR ---
Chest: Portable view of the chest was obtained. Comparison: Prior chest x-ray of 09/03/16. Heart size and mediastinum are normal. Lungs are clear. Scoliosis is noted within the spine. Previous right shoulder surgery is noted. Impression: 1. Findings believed to be incidental. Nothing acute is seen. Diagnostic code #2
[2018-12-22] MEDS ORDERED: Magnesium Sulfate/Water 4 GM in Premix Bag 1 BAG IV ONE (08:53)
[2018-12-22] MEDS: Folic Acid 1 MG Tab PO SCH (09:30)
[2018-12-22] MEDS: Enoxaparin 40 MG/0.4 ML Syringe SUBCUT SCH (09:30)
[2018-12-22] MEDS: Pantoprazole 40 MG Vial IV SCH ×2 (09:30→20:18)
[2018-12-22] MEDS: Potassium Chloride 20 MEQ in Dextrose 5% in Water 1,000 ML IV SCH ×4 (10:53→18:59)
[2018-12-22] MEDS ORDERED: Albuterol 6.7 GM Inhaler INH PRN (11:43)
[2018-12-22] MEDS: Sucralfate 1 GM Tab PO SCH ×3 (12:08→21:59)
[2018-12-22] MEDS: Losartan 25 MG Tab PO SCH (12:09)
[2018-12-22] MEDS: lamoTRIgine 100 MG Tab PO SCH (12:09)
[2018-12-22] MEDS: DULoxetine 30 MG Cap PO SCH (12:09)
[2018-12-22] MEDS: Formoterol/Mometasone 200-5 MCG 8.8 GM Inhaler IH SCH ×2 (12:33→20:39)
[2018-12-22] MEDS ORDERED: Potassium Chloride 20 MEQ Tab.ER PO ONE (14:28)
--- NOTE | 2018-12-22 14:32 | PCM.PN ---
- General Info Date of Service: 12/22/18 Admission Dx/Problem (Free Text): Admission Diagnosis/Problem Admission Diagnosis/Problem Hypokalemia Subjective Update: Re is more conversant this morning. Blood alcohol level was point was still 0.3. She states that she started drinking at 47 years old and has been in and out of rehabilitation. She has been on naltrexone in the past and would like to restart this for alcohol craving. She is not having any nausea, vomiting, or tremors. - Review of Systems General: Reports: No Symptoms HEENT: Reports: No Symptoms Pulmonary: Reports: No Symptoms Cardiovascular: Reports: No Symptoms Gastrointestinal: Reports: No Symptoms Neurological: Reports: No Symptoms Psychiatric: Reports: Depression - Patient Data Vitals - Most Recent: Last Vital Signs Temp 97.9 F 12/22/18 12:00 Pulse 82 12/22/18 04:00 Resp 18 12/22/18 12:00 BP 148/77 H 12/22/18 12:09 Pulse Ox 99 12/22/18 12:33 Weight - Most Recent: 117 lb 4.8 oz I&O - Last 24 Hours: Intake & Output 12/21/18 12/22/18 12/22/18 22:59 06:59 14:59 Intake Total 1544 1720 Output Total 670 175 Balance 874 1545 Lab Results Last 24 Hours: Laboratory Results - last 24 hr 12/21/18 12/21/18 12/21/18 Range/Units 20:20 20:20 20:20 WBC 4.73 (3.98-10.04) K/mm3 RBC 4.47 (3.98-5.22) M/mm3 Hgb 13.3 (11.2-15.7) gm/dl Hct 42.1 (34.1-44.9) % MCV 94.2 (79.4-94.8) fl MCH 29.8 (25.6-32.2) pg MCHC 31.6 L (32.2-35.5) g/dl RDW Std Deviation 46.0 (36.4-46.3) fL Plt Count 261 D (182-369) K/mm3 MPV 9.0 L (9.4-12.3) fl Neut % (Auto) 52.2 (34.0-71.1) % Lymph % (Auto) 40.0 (19.3-51.7) % Todd % (Auto) 6.6 (4.7-12.5) % Eos % (Auto) 0.6 L (0.7-5.8) Baso % (Auto) 0.4 (0.1-1.2) % Neut # (Auto) 2.47 (1.56-6.13) K/mm3 Lymph # (Auto) 1.89 (1.18-3.74) K/mm3 Todd # (Auto) 0.31 (0.24-0.36) K/mm3 Eos # (Auto) 0.03 L (0.04-0.36) K/mm3 Baso # (Auto) 0.02 (0.01-0.08) K/mm3 PT 10.3 (9.7-12.0) SECONDS INR 0.94 APTT 22 (22-31) SECONDS D-Dimer, Quantitative 0.35 (0.19-0.50) mg/L Sodium 146 H (136-145) mEq/L Potassium 2.4 L* (3.5-5.1) mEq/L Chloride 104 (98-107) mEq/L Carbon Dioxide 33 H (21-32) mEq/L Anion Gap 11.4 (5-15) BUN 14 (7-18) mg/dL Creatinine 0.6 (0.55-1.02) mg/dL Est Cr Clr Drug Dosing 85.03 mL/min Estimated GFR (MDRD) > 60 (>60) mL/min BUN/Creatinine Ratio 23.3 H (14-18) Glucose 88 (80-115) mg/dL Calcium 8.2 L (8.5-10.1) mg/dL Magnesium 2.0 (1.8-2.4) mg/dl Total Bilirubin 0.2 (0.2-1.0) mg/dL AST 23 (15-37) U/L ALT 32 (14-59) U/L Alkaline Phosphatase 85 (46-116) U/L Troponin I < 0.017 (0.00-0.056) ng/mL Total Protein 6.9 (6.4-8.2) g/dl Albumin 3.9 (3.4-5.0) g/dl Globulin 3.0 gm/dL Albumin/Globulin Ratio 1.3 (1-2) TSH 3rd Generation 1.035 (0.358-3.74) uIU/mL Urine Color (Yellow) Urine Appearance (Clear) Urine pH (5.0-8.0) Ur Specific [place] (1.005-1.030) Urine Protein (Negative) Urine Glucose (UA) (Negative) Urine Ketones (Negative) Urine Occult Blood (Negative) Urine Nitrite (Negative) Urine Bilirubin (Negative) Urine Urobilinogen (0.2-1.0) Ur Leukocyte Esterase (Negative) Urine RBC (0-5) /hpf Urine WBC (0-5) /hpf Ur Squamous Epith Cells (0-5) /hpf Urine Bacteria (FEW) /hpf Urine Mucus (FEW) /hpf Salicylates (2.8-20) mg/dL Urine Opiates Screen (MMBNUS=485) Ur Buprenorphine Scrn (CUTOFF=10) Ur Oxycodone Screen (CGM7WP=990) Urine Methadone Screen (HIAQRG=474) Ur Propoxyphene Screen (PIETDR=078) Acetaminophen 0 L (10-30) ug/mL Ur Barbiturates Screen (LLYPHP=363) Ur Tricyclics Screen (PQAJHO=394) Ur Phencyclidine Scrn (CUTOFF=25) Ur Amphetamine Screen (PPORGS=170) U Methamphetamines Scrn (AVNLJL=962) U Benzodiazepines Scrn (ALNHLW=923) U Cocaine Metab Screen (MUXSTL=381) U Marijuana (THC) Screen (CUTOFF=50) Ethyl Alcohol 0.50 (0.00) gm% 12/21/18 12/21/18 12/21/18 Range/Units 20:20 20:38 20:38 WBC (3.98-10.04) K/mm3 RBC (3.98-5.22) M/mm3 Hgb (11.2-15.7) gm/dl Hct (34.1-44.9) % MCV (79.4-94.8) fl MCH (25.6-32.2) pg MCHC (32.2-35.5) g/dl RDW Std Deviation (36.4-46.3) fL Plt Count (182-369) K/mm3 MPV (9.4-12.3) fl Neut % (Auto) (34.0-71.1) % Lymph % (Auto) (19.3-51.7) % Todd % (Auto) (4.7-12.5) % Eos % (Auto) (0.7-5.8) Baso % (Auto) (0.1-1.2) % Neut # (Auto) (1.56-6.13) K/mm3 Lymph # (Auto) (1.18-3.74) K/mm3 Todd # (Auto) (0.24-0.36) K/mm3 Eos # (Auto) (0.04-0.36) K/mm3 Baso # (Auto) (0.01-0.08) K/mm3 PT (9.7-12.0) SECONDS INR APTT (22-31) SECONDS D-Dimer, Quantitative (0.19-0.50) mg/L Sodium (136-145) mEq/L Potassium (3.5-5.1) mEq/L Chloride (98-107) mEq/L Carbon Dioxide (21-32) mEq/L Anion Gap (5-15) BUN (7-18) mg/dL Creatinine (0.55-1.02) mg/dL Est Cr Clr Drug Dosing mL/min Estimated GFR (MDRD) (>60) mL/min BUN/Creatinine Ratio (14-18) Glucose (80-115) mg/dL Calcium (8.5-10.1) mg/dL Magnesium (1.8-2.4) mg/dl Total Bilirubin (0.2-1.0) mg/dL AST (15-37) U/L ALT (14-59) U/L Alkaline Phosphatase (46-116) U/L Troponin I (0.00-0.056) ng/mL Total Protein (6.4-8.2) g/dl Albumin (3.4-5.0) g/dl Globulin gm/dL Albumin/Globulin Ratio (1-2) TSH 3rd Generation (0.358-3.74) uIU/mL Urine Color Light yellow (Yellow) Urine Appearance Clear (Clear) Urine pH 7.0 (5.0-8.0) Ur Specific [place] 1.010 (1.005-1.030) Urine Protein Negative (Negative) Urine Glucose (UA) Negative (Negative) Urine Ketones Negative (Negative) Urine Occult Blood 2+ H (Negative) Urine Nitrite Negative (Negative) Urine Bilirubin Negative (Negative) Urine Urobilinogen 0.2 (0.2-1.0) Ur Leukocyte Esterase Negative (Negative) Urine RBC 0-5 (0-5) /hpf Urine WBC 0-5 (0-5) /hpf Ur Squamous Epith Cells 0-5 (0-5) /hpf Urine Bacteria Few (FEW) /hpf Urine Mucus Not seen (FEW) /hpf Salicylates 1.3 L (2.8-20) mg/dL Urine Opiates Screen Negative (CXEUDL=879) Ur Buprenorphine Scrn Negative (CUTOFF=10) Ur Oxycodone Screen Negative (SUR6DB=057) Urine Methadone Screen Negative (OGBCZJ=153) Ur Propoxyphene Screen Negative (DBMXAE=031) Acetaminophen (10-30) ug/mL Ur Barbiturates Screen Negative (WUXFSQ=641) Ur Tricyclics Screen Negative (AWFZAO=760) Ur Phencyclidine Scrn Negative (CUTOFF=25) Ur Amphetamine Screen Negative (WQYTWM=251) U Methamphetamines Scrn Negative (WREZUY=550) U Benzodiazepines Scrn Negative (XIPKPX=179) U Cocaine Metab Screen Negative (MRBNNF=088) U Marijuana (THC) Screen Negative (CUTOFF=50) Ethyl Alcohol (0.00) gm% 12/22/18 12/22/18 Range/Units 05:00 05:00 WBC 5.06 (3.98-10.04) K/mm3 RBC 3.76 L (3.98-5.22) M/mm3 Hgb 11.2 D (11.2-15.7) gm/dl Hct 36.2 (34.1-44.9) % MCV 96.3 H (79.4-94.8) fl MCH 29.8 (25.6-32.2) pg MCHC 30.9 L (32.2-35.5) g/dl RDW Std Deviation 47.3 H (36.4-46.3) fL Plt Count 234 (182-369) K/mm3 MPV 9.3 L (9.4-12.3) fl Neut % (Auto) 67.2 (34.0-71.1) % Lymph % (Auto) 24.7 (19.3-51.7) % Todd % (Auto) 7.3 (4.7-12.5) % Eos % (Auto) 0.4 L (0.7-5.8) Baso % (Auto) 0.2 (0.1-1.2) % Neut # (Auto) 3.40 (1.56-6.13) K/mm3 Lymph # (Auto) 1.25 (1.18-3.74) K/mm3 Todd # (Auto) 0.37 H (0.24-0.36) K/mm3 Eos # (Auto) 0.02 L (0.04-0.36) K/mm3 Baso # (Auto) 0.01 (0.01-0.08) K/mm3 PT (9.7-12.0) SECONDS INR APTT (22-31) SECONDS D-Dimer, Quantitative (0.19-0.50) mg/L Sodium 147 H (136-145) mEq/L Potassium 3.4 L (3.5-5.1) mEq/L Chloride 108 H (98-107) mEq/L Carbon Dioxide 30 (21-32) mEq/L Anion Gap 12.4 (5-15) BUN 15 (7-18) mg/dL Creatinine 0.6 (0.55-1.02) mg/dL Est Cr Clr Drug Dosing 82.70 mL/min Estimated GFR (MDRD) > 60 (>60) mL/min BUN/Creatinine Ratio 25.0 H (14-18) Glucose 84 (80-115) mg/dL Calcium 7.3 L (8.5-10.1) mg/dL Magnesium 1.6 L (1.8-2.4) mg/dl Total Bilirubin 0.2 (0.2-1.0) mg/dL AST 23 (15-37) U/L ALT 25 (14-59) U/L Alkaline Phosphatase 67 (46-116) U/L Troponin I (0.00-0.056) ng/mL Total Protein 5.8 L (6.4-8.2) g/dl Albumin 3.2 L (3.4-5.0) g/dl Globulin 2.6 gm/dL Albumin/Globulin Ratio 1.2 (1-2) TSH 3rd Generation (0.358-3.74) uIU/mL Urine Color (Yellow) Urine Appearance (Clear) Urine pH (5.0-8.0) Ur Specific [place] (1.005-1.030) Urine Protein (Negative) Urine Glucose (UA) (Negative) Urine Ketones (Negative) Urine Occult Blood (Negative) Urine Nitrite (Negative) Urine Bilirubin (Negative) Urine Urobilinogen (0.2-1.0) Ur Leukocyte Esterase (Negative) Urine RBC (0-5) /hpf Urine WBC (0-5) /hpf Ur Squamous Epith Cells (0-5) /hpf Urine Bacteria (FEW) /hpf Urine Mucus (FEW) /hpf Salicylates (2.8-20) mg/dL Urine Opiates Screen (SOMJVS=370) Ur Buprenorphine Scrn (CUTOFF=10) Ur Oxycodone Screen (IXA9ZE=001) Urine Methadone Screen (JSYCBV=476) Ur Propoxyphene Screen (PWXMXJ=572) Acetaminophen (10-30) ug/mL Ur Barbiturates Screen (PVQZLC=753) Ur Tricyclics Screen (JJJTNL=592) Ur Phencyclidine Scrn (CUTOFF=25) Ur Amphetamine Screen (DDPKSQ=972) U Methamphetamines Scrn (YSQZPT=267) U Benzodiazepines Scrn (XQSHNZ=122) U Cocaine Metab Screen (ZKWFOM=608) U Marijuana (THC) Screen (CUTOFF=50) Ethyl Alcohol 0.30 (0.00) gm% Med Orders - Current: Current Medications Albuterol (Proventil Neb Soln) 2.5 mg NEB Q2H PRN PRN Reason: Shortness Of Breath/wheezing Albuterol (Proventil Hfa) 0 gm INH Q4H PRN PRN Reason: Wheezing Albuterol/Ipratropium (Duoneb 3.0-0.5 Mg/3 Ml) 3 ml NEB Q4H PRN PRN Reason: Shortness Of Breath/wheezing Duloxetine HCl (Cymbalta) 30 mg PO DAILY [facility] Last Admin: 12/22/18 12:09 Dose: 30 mg Enoxaparin Sodium (Lovenox) 40 mg SUBCUT DAILY [facility] Last Admin: 12/22/18 09:30 Dose: 40 mg Folic Acid (Folic Acid) 1 mg PO DAILY [facility] Last Admin: 12/22/18 09:30 Dose: 1 mg Potassium Chloride 20 meq/ (Dextrose/Water) 1,010 mls @ 125 mls/hr IV Q8H [facility] Last Admin: 12/22/18 10:53 Dose: 125 mls/hr Ibuprofen (Motrin) 600 mg PO Q6H PRN PRN Reason: Pain (moderate 4-6) Lamotrigine (Lamotrigine) 100 mg PO DAILY [facility] Last Admin: 12/22/18 12:09 Dose: 100 mg Lorazepam (Ativan) 0 mg IVPUSH Q1H PRN; Protocol PRN Reason: Withdrawal Symptoms Lorazepam (Ativan) 0 mg PO Q1H PRN; Protocol PRN Reason: Withdrawal Symptoms Losartan Potassium (Cozaar) 12.5 mg PO DAILY [facility] Last Admin: 12/22/18 12:09 Dose: 12.5 mg Mometasone Furoate/Formoterol Fumar (Dulera 200-5 Mcg) 2 puff IH BID [facility] Last Admin: 12/22/18 12:33 Dose: 2 puff Montelukast Sodium (Singulair) 10 mg PO QPM [facility] Naltrexone HCl (Naltrexone) 50 mg PO BEDTIME [facility] Pantoprazole Sodium (Protonix Iv) 40 mg IV Q12HR [facility] Last Admin: 12/22/18 09:30 Dose: 40 mg Potassium Chloride (Klor-Con M20) 20 meq PO DAILY [facility] Simvastatin (Zocor) 20 mg PO BEDTIME [facility]PH[facility] Sucralfate (Carafate) 1 gm PO QIDACANDBED [facility] Last Admin: 12/22/18 12:08 Dose: 1 gm Thiamine HCl (Vitamin B-1) 100 mg IVPUSH Q8H [facility] Last Admin: 12/22/18 06:20 Dose: 100 mg Discontinued Medications Sodium Chloride (Normal Saline) 1,000 mls @ 150 mls/hr IV ASDIRECTED [facility] Last Admin: 12/21/18 20:27 Dose: 150 mls/hr Potassium Chloride 10 meq/ (Premix) 100 mls @ 100 mls/hr IV Q1H STA Stop: 12/21/18 22:21 Last Admin: 12/21/18 21:27 Dose: 100 mls/hr Potassium Chloride 10 meq/ (Premix) 100 mls @ 100 mls/hr IV Q1H [facility] Stop: 12/22/18 03:59 Last Admin: 12/22/18 03:02 Dose: 100 mls/hr Dextrose/Sodium Chloride (Dextrose 5%-1/2 Ns) 1,000 mls @ 125 mls/hr IV ASDIRECTED [facility] Last Admin: 12/22/18 03:38 Dose: 125 mls/hr Magnesium Sulfate 4 gm/ Premix 50 mls @ 12.5 mls/hr IV ONETIME ONE Stop: 12/22/18 12:52 Last Admin: 12/22/18 09:25 Dose: 12.5 mls/hr - Exam General: Alert, Oriented HEENT: Pupils Equal Neck: Supple Lungs: Clear to Auscultation, Normal Respiratory Effort Cardiovascular: Regular Rate, Regular Rhythm GI/Abdominal Exam: Normal Bowel Sounds, Soft, Non-Tender, No Organomegaly, No Distention, No Abnormal Bruit, No Mass Back Exam: Normal Inspection Extremities: Normal Inspection, Normal Range of Motion, Non-Tender, No Pedal Edema, Normal Capillary Refill Skin: Warm, Dry, Intact Psy/Mental Status: Alert, Normal Affect, Normal Mood - Problem List Review Problem List Initiated/Reviewed/Updated: Yes - My Orders Last 24 Hours: My Active Orders 12/21/18 22:49 Oxygen Therapy [RC] PRN Up With Assistance [RC] ASDIRECTED VTE/DVT Education [RC] Albuterol [Proventil Neb Soln] 2.5 mg NEB Q2H PRN Albuterol/Ipratropium [DuoNeb 3.0-0.5 MG/3 ML] 3 ml NEB Q4H PRN Ibuprofen [Motrin] 600 mg PO Q6H PRN Resuscitation Status Routine 12/21/18 22:52 RT Aerosol Therapy [RC] ASDIRECTED Consult to Case Management/Apartment House Manager [CONS] Routine Consult to Kinesiotherapist [CONS] Routine 12/21/18 22:54 LORazepam [Ativan] See Protocol IVPUSH Q1H PRN 12/21/18 22:55 LORazepam [Ativan] See Protocol PO Q1H PRN 12/21/18 22:57 CIWAA Assessment [RC] Q4HR 12/21/18 23:00 Jeffries Catheter Insertion [Insert Urinary Catheter] [OM.PC] Q24H Pantoprazole [ProTONIX IV] 40 mg IV Q12HR Thiamine [Vitamin B-1] 100 mg IVPUSH Q8H 12/22/18 09:00 Enoxaparin [Lovenox] 40 mg SUBCUT DAILY Folic Acid 1 mg PO DAILY 12/22/18 10:45 Potassium Chloride 20 meq Dextrose 5% in Water 1,000 ml IV Q8H 12/22/18 11:43 Albuterol [Proventil HFA] 0 gm INH Q4H PRN 12/22/18 12:00 DULoxetine [Cymbalta] 30 mg PO DAILY Losartan [Cozaar] 12.5 mg PO DAILY Mometasone/Formoterol [Dulera 200-5 MCG] 2 puff IH BID Sucralfate [Carafate] 1 gm PO QIDACANDBED lamoTRIgine 100 mg PO DAILY 12/22/18 18:00 Montelukast [Singulair] 10 mg PO QPM 12/22/18 21:00 Naltrexone 50 mg PO BEDTIME Simvastatin [Zocor] 20 mg PO BEDTIME 12/22/18 Lunch Regular Diet [DIET] 12/23/18 05:11 CBC WITH AUTO DIFF [HEME] AM COMPREHENSIVE METABOLIC PN,CMP [CHEM] AM MAGNESIUM [CHEM] AM 12/23/18 09:00 Potassium Chloride [Klor-Con M20] 20 meq PO DAILY 12/24/18 05:11 CBC WITH AUTO DIFF [HEME] AM COMPREHENSIVE METABOLIC PN,CMP [CHEM] AM MAGNESIUM [CHEM] AM - Plan Plan:: Assessment * Acute alcoholic intoxication * ETOH stil 0.3 this am * Hypokalemia * Dehydration/hypernatremia * Alcohol binge drinking * Patient overall prognosis is poor. 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 She has been in and out of multiple treatment facilities for multiple years. She just came out of treatment that she was in full last 3 months and quickly relapsed. Plan * Admit to ICU for close monitoring * CIWA protocol with Ativan protocol * IV rehydration * Thiamine 100 mg IV now and every 8 hours * Folic acid 1 mg daily * K-Dur 40 meq now * CBC, CMP, magnesium daily. EtOH tomorrow morning. * Case management and renal social worker consult * Dietary consult * VTE prophylaxis with Lovenox * CODE STATUS full code * Discharge 2-3 days.
[2018-12-22] MEDS ORDERED: Ondansetron 4 MG/2 ML SDV IVPUSH PRN (15:18)
[2018-12-22] MEDS ORDERED: Montelukast 10 MG Tab PO SCH (18:00)
[2018-12-22] MEDS: chlordiazePOXIDE 25 MG Cap PO SCH ×2 (18:57→20:53)
[2018-12-22] MEDS ORDERED: Naltrexone 50 MG Tab PO SCH (21:00)
[2018-12-22] MEDS ORDERED: Simvastatin 20 MG Tab PO SCH (21:00)
[2018-12-23] MEDS: chlordiazePOXIDE 25 MG Cap PO SCH ×6 (00:37→12:03)
[2018-12-23] MEDS: Potassium Chloride 20 MEQ in Dextrose 5% in Water 1,000 ML IV SCH ×2 (01:51)
[2018-12-23] MEDS: Thiamine 200 MG/2 ML MDV IVPUSH SCH ×2 (06:04→15:23)
[2018-12-23] MEDS: Sucralfate 1 GM Tab PO SCH ×2 (06:04→12:01)
[2018-12-23] MEDS: Losartan 25 MG Tab PO SCH (08:23)
[2018-12-23] MEDS: DULoxetine 30 MG Cap PO SCH (08:23)
[2018-12-23] MEDS: Pantoprazole 40 MG Vial IV SCH (08:24)
[2018-12-23] MEDS: lamoTRIgine 100 MG Tab PO SCH (08:24)
[2018-12-23] MEDS: Enoxaparin 40 MG/0.4 ML Syringe SUBCUT SCH (08:24)
[2018-12-23] MEDS: Folic Acid 1 MG Tab PO SCH (08:24)
[2018-12-23] MEDS: Formoterol/Mometasone 200-5 MCG 8.8 GM Inhaler IH SCH (08:47)
[2018-12-23] MEDS ORDERED: Naltrexone 50 MG Tab PO SCH (09:00)
[2018-12-23] MEDS ORDERED: Potassium Chloride 20 MEQ Tab.ER PO SCH (09:00)
--- NOTE | 2018-12-23 12:10 | PCM.DCSUM1 ---
Discharge Summary - Hospital Course HPI Initial Comments: Patient is a 63-year-old female who is brought to the emergency department by EMS, called by her mother, secondary to her being found passed out on the couch. Patient was essentially noncommunicative with me so history is obtained through the emergency room physician and his notes. Patient was seen on December 15, 2018 after a binge of 13.6 ounces of hard liquor. At the time of presentation on the she was sober and did not require hospitalization. Patient has been in and out of rehabilitation and was recently in [facility] in [place], [place] from 2018 - 11/22/2018, followed by outpatient rehabilitaion at [facility] here in [place] every Saturday. She resumed drinking on December 11, 2018, initially a relatively small amount of 3-4.7 ounces per day. Mother states that she was with her daughter at 1500 and that she had been drinking but appeared relatively sober. At 1915 this evening she was found passed out on the couch by EMS. Mother states that her daughter is a "raging alcoholic" and that she has been virtually every inpatient treatment facility in [place]. CT of the head: 1. Generalized atrophy which is asymmetrically greater within the frontal lobes. Atrophy has increased slightly from the previous exam. Emergency room labs: White count 4.73, hemoglobin 13.3, platelets 261, PT 10.3, APTT 22, d-dimer 0.35. Chemistries: Sodium 146, potassium 2.4, chloride 104, bicarbonate 33, BUN 14, creatinine 0.6, anion gap 11.4, magnesium 2.0. Normal LFTs. EtOH 0.50. Patient was started on IV fluids, was given her first 10 mEq of potassium IV, chest x-ray which is rotated but showed nothing significant, and transferred to the ICU for further treatment of her hypokalemia, alcohol detox, and social services coordinator. Diagnosis: Stroke: No - Discharge Data Discharge Date: 12/23/18 Discharge Disposition: Home, Self-Care 01 Condition: Good - Referral to Home Health Primary Care Physician: Renard Verduzco MD - Patient Summary/Data Consults: Consultations 12/21/18 22:52 Consult to Case Management/Sales Team Manager [CONS] Routine Consult to Galley Cook [CONS] Routine Hospital Course: Assessment * Acute alcoholic intoxication * Hypokalemia - resolved * Dehydration/hypernatremia - resolved with hydration * Alcohol binge drinking * Patient overall prognosis is poor. 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 She has been in and out of multiple treatment facilities for multiple years. She just came out of treatment that she was in full last 3 months and quickly relapsed. * Admitted to ICU for close monitoring * CIWA protocol with Ativan protocol and Librium 25 mg. * IV rehydration * Thiamine 100 mg IV now and every 8 hours. Discharged on 100 mg daily. * Folic acid 1 mg daily * Case management and social services coordinator consult * Dietary consult * No complications during hospitalization. She should very little signs of withdrawal. * Drug and alcohol counselor came to hospital. She has follow up next week. * AA meetings daily. - Patient Instructions Diet: Usual Diet as Tolerated, No Alcoholic Beverages Other/Special Instructions: Follow up with your counselor Don next week. Follow up with AA and your sponsor this week. Follow up with your PCP this week. - Discharge Plan *PRESCRIPTION DRUG MONITORING PROGRAM REVIEWED*: Not Applicable *COPY OF PRESCRIPTION DRUG MONITORING REPORT IN PATIENT ANTHONY: Not Applicable Prescriptions/Med Rec: chlordiazePOXIDE [Librium] 25 mg PO Q12HR #4 cap Folic Acid 1 mg PO DAILY #30 tablet Naltrexone 50 mg PO DAILY #30 tablet Thiamine [Vitamin B-1] 100 mg PO BEDTIME #30 tab Home Medications: Home Meds Fluticasone/Salmeterol [Advair 250-50 Diskus] 1 puff IH BID 05/24/16 [History] Potassium Chloride 20 meq PO DAILY 05/24/16 [History] atorvaSTATin [Lipitor] 20 mg PO DAILY 05/24/16 [History] Albuterol Sulfate [Albuterol Sulfate Hfa] 2 puff PO Q4HR PRN 12/22/18 [History] DULoxetine [Cymbalta] 30 mg PO DAILY 12/22/18 [History] Folic Acid 1 mg PO DAILY 12/22/18 [History] Losartan [Cozaar] 12.5 mg PO DAILY 12/22/18 [History] Montelukast [Singulair] 10 mg PO QPM 12/22/18 [History] Omeprazole 20 mg PO ACBREAKFAST 12/22/18 [History] Potassium Chloride 20 meq PO DAILY 12/22/18 [History] Sucralfate [Carafate] 1 gm PO QID 12/22/18 [History] lamoTRIgine [Lamotrigine] 100 mg PO DAILY 12/22/18 [History] Folic Acid 1 mg PO DAILY #30 tablet 12/23/18 [Rx] Naltrexone 50 mg PO DAILY #30 tablet 12/23/18 [Rx] Thiamine [Vitamin B-1] 100 mg PO BEDTIME #30 tab 12/23/18 [Rx] chlordiazePOXIDE [Librium] 25 mg PO Q12HR #4 cap 12/23/18 [Rx] Oxygen Therapy Mode: Room Air Forms: ED Department Discharge Referrals: Renard Verduzco MD [Primary Care Provider] - - Discharge Summary/Plan Comment DC Time >30 min.: Yes Discharge Summary/Plan Comment: Follow up with drug and alcohol counselor Don next week. Follow up with AA and your sponsor this week. Follow up with your PCP this week. Thiamin 100 mg daily Folic acid 1 mg daily Librium 25 mg every 12 hours x 4. - General Info Date of Service: 12/23/18 Admission Dx/Problem (Free Text: Admission Diagnosis/Problem Admission Diagnosis/Problem Hypokalemia Subjective Update: Re is doing well with no significant withdrawal symptoms. Functional Status: Reports: Pain Controlled - Review of Systems General: Reports: No Symptoms HEENT: Reports: No Symptoms Pulmonary: Reports: No Symptoms Cardiovascular: Reports: No Symptoms Gastrointestinal: Reports: No Symptoms Neurological: Reports: No Symptoms Psychiatric: Reports: No Symptoms - Patient Data Vitals - Most Recent: Last Vital Signs Temp 97.9 F 12/23/18 08:00 Pulse 74 12/23/18 08:00 Resp 16 12/23/18 08:00 BP 138/85 12/23/18 08:23 Pulse Ox 98 12/23/18 08:48 Weight - Most Recent: 125 lb 9.6 oz I&O - Last 24 hours: Intake & Output 12/22/18 12/23/18 12/23/18 22:59 06:59 14:59 Intake Total 840 2168 Output Total 1500 Balance 840 668 Lab Results - Last 24 hrs: Laboratory Results - last 24 hr 12/23/18 12/23/18 Range/Units 04:15 04:15 WBC 3.59 L (3.98-10.04) K/mm3 RBC 3.23 L (3.98-5.22) M/mm3 Hgb 9.6 L D (11.2-15.7) gm/dl Hct 31.2 L (34.1-44.9) % MCV 96.6 H (79.4-94.8) fl MCH 29.7 (25.6-32.2) pg MCHC 30.8 L (32.2-35.5) g/dl RDW Std Deviation 46.9 H (36.4-46.3) fL Plt Count 207 (182-369) K/mm3 MPV 9.5 (9.4-12.3) fl Neut % (Auto) 64.3 (34.0-71.1) % Lymph % (Auto) 22.6 (19.3-51.7) % [facility] % (Auto) 11.4 (4.7-12.5) % Eos % (Auto) 1.4 (0.7-5.8) Baso % (Auto) 0.3 (0.1-1.2) % Neut # (Auto) 2.31 (1.56-6.13) K/mm3 Lymph # (Auto) 0.81 L (1.18-3.74) K/mm3 [facility] # (Auto) 0.41 H (0.24-0.36) K/mm3 Eos # (Auto) 0.05 (0.04-0.36) K/mm3 Baso # (Auto) 0.01 (0.01-0.08) K/mm3 Sodium 141 (136-145) mEq/L Potassium 4.2 (3.5-5.1) mEq/L Chloride 106 (98-107) mEq/L Carbon Dioxide 28 (21-32) mEq/L Anion Gap 11.2 (5-15) BUN 10 (7-18) mg/dL Creatinine 0.6 (0.55-1.02) mg/dL Est Cr Clr Drug Dosing 85.03 mL/min Estimated GFR (MDRD) > 60 (>60) mL/min BUN/Creatinine Ratio 16.7 (14-18) Glucose 111 (80-115) mg/dL Calcium 7.9 L (8.5-10.1) mg/dL Magnesium 2.0 (1.8-2.4) mg/dl Total Bilirubin 0.4 (0.2-1.0) mg/dL AST 28 (15-37) U/L ALT 30 (14-59) U/L Alkaline Phosphatase 78 (46-116) U/L Total Protein 6.0 L (6.4-8.2) g/dl Albumin 3.3 L (3.4-5.0) g/dl Globulin 2.7 gm/dL Albumin/Globulin Ratio 1.2 (1-2) Med Orders - Current: Current Medications Albuterol (Proventil Neb Soln) 2.5 mg NEB Q2H PRN PRN Reason: Shortness Of Breath/wheezing Albuterol (Proventil Hfa) 0 gm INH Q4H PRN PRN Reason: Wheezing Albuterol/Ipratropium (Duoneb 3.0-0.5 Mg/3 Ml) 3 ml NEB Q4H PRN PRN Reason: Shortness Of Breath/wheezing Chlordiazepoxide HCl (Librium) 25 mg PO Q4HR [facility] Last Admin: 12/23/18 12:03 Dose: 25 mg Duloxetine HCl (Cymbalta) 30 mg PO DAILY [facility] Last Admin: 12/23/18 08:23 Dose: 30 mg Enoxaparin Sodium (Lovenox) 40 mg SUBCUT DAILY [facility] Last Admin: 12/23/18 08:24 Dose: 40 mg Folic Acid (Folic Acid) 1 mg PO DAILY [facility] Last Admin: 12/23/18 08:24 Dose: 1 mg Ibuprofen (Motrin) 600 mg PO Q6H PRN PRN Reason: Pain (moderate 4-6) Last Admin: 12/22/18 17:51 Dose: 600 mg Lamotrigine (Lamotrigine) 100 mg PO DAILY [facility] Last Admin: 12/23/18 08:24 Dose: 100 mg Lorazepam (Ativan) 0 mg IVPUSH Q1H PRN; Protocol PRN Reason: Withdrawal Symptoms Lorazepam (Ativan) 0 mg PO Q1H PRN; Protocol PRN Reason: Withdrawal Symptoms Last Admin: 12/22/18 15:29 Dose: 0.5 mg Losartan Potassium (Cozaar) 12.5 mg PO DAILY [facility] Last Admin: 12/23/18 08:23 Dose: 12.5 mg Mometasone Furoate/Formoterol Fumar (Dulera 200-5 Mcg) 2 puff IH BID [facility] Last Admin: 12/23/18 08:47 Dose: 2 puff Montelukast Sodium (Singulair) 10 mg PO QPM [facility] Last Admin: 12/22/18 17:49 Dose: 10 mg Naltrexone HCl (Naltrexone) 50 mg PO DAILY [facility] Last Admin: 12/23/18 08:24 Dose: 50 mg Ondansetron HCl (Zofran) 4 mg IVPUSH Q4H PRN PRN Reason: Nausea/Vomiting Last Admin: 12/22/18 15:26 Dose: 4 mg Pantoprazole Sodium (Protonix) 40 mg PO BID [facility] Potassium Chloride (Klor-Con M20) 20 meq PO DAILY [facility] Last Admin: 12/23/18 08:23 Dose: 20 meq Simvastatin (Zocor) 20 mg PO BEDTIME [facility] Last Admin: 12/22/18 20:18 Dose: 20 mg Sucralfate (Carafate) 1 gm PO QIDACANDBED [facility] Last Admin: 12/23/18 12:01 Dose: 1 gm Thiamine HCl (Vitamin B-1) 100 mg IVPUSH Q8H [facility] Last Admin: 12/23/18 06:04 Dose: 100 mg Discontinued Medications Sodium Chloride (Normal Saline) 1,000 mls @ 150 mls/hr IV ASDIRECTED [facility] Last Admin: 12/21/18 20:27 Dose: 150 mls/hr Potassium Chloride 10 meq/ (Premix) 100 mls @ 100 mls/hr IV Q1H STA Stop: 12/21/18 22:21 Last Admin: 12/21/18 21:27 Dose: 100 mls/hr Potassium Chloride 10 meq/ (Premix) 100 mls @ 100 mls/hr IV Q1H STEPHANE Stop: 12/22/18 03:59 Last Admin: 12/22/18 03:02 Dose: 100 mls/hr Dextrose/Sodium Chloride (Dextrose 5%-1/2 Ns) 1,000 mls @ 125 mls/hr IV ASDIRECTED [facility] Last Admin: 12/22/18 03:38 Dose: 125 mls/hr Magnesium Sulfate 4 gm/ Premix 50 mls @ 12.5 mls/hr IV ONETIME ONE Stop: 12/22/18 12:52 Last Admin: 12/22/18 09:25 Dose: 12.5 mls/hr Potassium Chloride 20 meq/ (Dextrose/Water) 1,010 mls @ 125 mls/hr IV Q8H [facility] Last Admin: 12/23/18 01:51 Dose: 125 mls/hr Naltrexone HCl (Naltrexone) 50 mg PO BEDTIME [facility] Last Admin: 12/22/18 20:18 Dose: Not Given Pantoprazole Sodium (Protonix Iv) 40 mg IV Q12HR [facility] Last Admin: 12/23/18 08:24 Dose: 40 mg Potassium Chloride (Klor-Con M20) 40 meq PO ONETIME ONE Stop: 12/22/18 14:29 Last Admin: 12/22/18 14:45 Dose: 40 meq - Exam General: Reports: Alert, Oriented HEENT: Reports: Pupils Equal Neck: Reports: Supple Lungs: Reports: Clear to Auscultation, Normal Respiratory Effort Cardiovascular: Reports: Regular Rate, Regular Rhythm GI/Abdominal Exam: Normal Bowel Sounds, Soft, Non-Tender, No Organomegaly, No Distention, No Abnormal Bruit, No Mass Back Exam: Reports: Normal Inspection, Full Range of Motion Extremities: Normal Inspection, Normal Range of Motion, Non-Tender, No Pedal Edema, Normal Capillary Refill Skin: Reports: Warm, Dry, Intact Neurological: Reports: No New Focal Deficit Psy/Mental Status: Reports: Alert, Normal Affect, Normal Mood
[2018-12-23 15:24] VITALS: BP 153/90; PULSE 96
[2018-12-23] MEDS ORDERED: Pantoprazole 40 MG Tab.CR PO SCH (21:00)
== END 2018-12-23 15:37 | disposition home or self-care (01) | DRG 775 ==
LOC: JD.ED 19:52 → JD.ICU 22:38
PROVIDERS: ADMIT Family Medicine; ATTEND Family Medicine
DX: F10.229 Alcohol dependence with intoxication, unspecified (principal); E87.6 Hypokalemia; E86.0 Dehydration; E87.1 Hypo-osmolality and hyponatremia; Y90.0 Blood alcohol level of less than 20 mg/100 ml; G31.9 Degenerative disease of nervous system, unspecified; E78.00 Pure hypercholesterolemia, unspecified; J45.909 Unspecified asthma, uncomplicated; K21.9 Gastro-esophageal reflux disease without esophagitis; F41.9 Anxiety disorder, unspecified; F32.9 Major depressive disorder, single episode, unspecified; M81.0 Age-related osteoporosis without current pathological fracture; Z87.440 Personal history of urinary (tract) infections; Z88.1 Allergy status to other antibiotic agents; Z88.8 Allergy status to other drugs, medicaments and biological substances; Z79.899 Other long term (current) drug therapy; Z90.49 Acquired absence of other specified parts of digestive tract; Z90.89 Acquired absence of other organs
CPT/HCPCS: 36415; 51702; 70450; 70450-26; 71045; 71045-26; 80053; 80306; 81001; 83735; 84443; 84484; 85025; 85379; 85610; 85730; 93005; 93010; 94640; 96361; 96365; 99285; 99285-25; A9270-GY; C9113; G0480; J1650; J2405; J3411; J3475; J3480; J7040; J7042; J7060

== ENCOUNTER 2018-12-28 17:41 | Emergency (ER) | payer BC ==
[2018-12-28 17:46] VITALS: BP 151/90; PULSE 68
[2018-12-28] MEDS ORDERED: Sodium Chloride 0.9% 10 ML Syringe FLUSH PRN (18:10)
[2018-12-28] MEDS ORDERED: Sodium Chloride 0.9% 1,000 ML IV ONE (18:10)
--- NOTE | 2018-12-28 19:32 | EDM.PDOC ---
ED HPI GENERAL MEDICAL PROBLEM - General Chief Complaint: Drug or Alcohol Abuse Stated Complaint: [facility] Time Seen by Provider: 12/28/18 18:05 Source of Information: Reports: Patient, RN Notes Reviewed History Limitations: Reports: No Limitations - History of Present Illness INITIAL COMMENTS - FREE TEXT/NARRATIVE: Patient is a 63-year-old female presents to the ED via [facility] for alcohol intoxication. The patient's mother called 911 regarding the patient's intoxication, as the mother was worried that the patient would end up falling down the stairs due to her level of intoxication. The patient herself denies any current falls, denies any nausea/vomiting/diarrhea, chest pain/shortness of breath, abdominal pain, the patient herself does not have any complaints. The patient is tearful at time of initial exam, and states that she like to get home to be with her puppy. The patient states that she walked to the liquor store today at 11 AM, and states that she likes to drink vodka, and that her last drink was around 2 PM. She was brought into the ER by ambulance service at around 6pm. - Related Data Allergies Allergy/AdvReac Type Severity Reaction Status Date / Time levofloxacin [From Levaquin] Allergy Rash Verified 12/22/18 12:52 propoxyphene napsylate AdvReac Headache Verified 12/22/18 12:52 [From Darvocet-N] quetiapine fumarate AdvReac Confusion Verified 12/22/18 12:52 [From Seroquel] Home Meds: Home Meds Fluticasone/Salmeterol [Advair 250-50 Diskus] 1 puff IH BID 05/24/16 [History] atorvaSTATin [Lipitor] 20 mg PO DAILY 05/24/16 [History] Albuterol Sulfate [Albuterol Sulfate Hfa] 2 puff PO Q4HR PRN 12/22/18 [History] DULoxetine [Cymbalta] 30 mg PO DAILY 12/22/18 [History] Losartan [Cozaar] 12.5 mg PO DAILY 12/22/18 [History] Montelukast [Singulair] 10 mg PO QPM 12/22/18 [History] Omeprazole 20 mg PO ACBREAKFAST 12/22/18 [History] Potassium Chloride 20 meq PO DAILY 12/22/18 [History] Sucralfate [Carafate] 1 gm PO QID 12/22/18 [History] lamoTRIgine [Lamotrigine] 100 mg PO DAILY 12/22/18 [History] Folic Acid 1 mg PO DAILY #30 tablet 12/23/18 [Rx] Naltrexone 50 mg PO DAILY #30 tablet 12/23/18 [Rx] Thiamine [Vitamin B-1] 100 mg PO BEDTIME #30 tab 12/23/18 [Rx] chlordiazePOXIDE [Librium] 25 mg PO Q12HR #4 cap 12/23/18 [Rx] Past Medical History HEENT History: Reports: Impaired Vision Other HEENT History: wears glasses Cardiovascular History: Reports: High Cholesterol Respiratory History: Reports: Asthma Gastrointestinal History: Reports: GERD Genitourinary History: Reports: UTI, Recurrent [employer]ATE History: Reports: Other (See Below) Other [employer] History: Patient states she started menopause at 54 yoa Neurological History: Reports: Headaches, Chronic Other Neuro History: headaches Psychiatric History: Reports: Addiction, Anxiety, Depression, Eating Disorders Other Psychiatric History: eaating disorder at age 14 Endocrine/Metabolic History: Reports: Osteoporosis Hematologic History: Reports: None Immunologic History: Reports: Other (See Below) Other Immunologic History: recurrent staph infections Oncologic (Cancer) History: Reports: None - Infectious Disease History Infectious Disease History: Reports: Chicken Pox - Past Surgical History Head Surgeries/Procedures: Reports: None HEENT Surgical History: Reports: Adenoidectomy, Oral Surgery, Tonsillectomy, Other (See Below) GI Surgical History: Reports: Appendectomy Musculoskeletal Surgical History: Reports: ORIF, Shoulder Surgery Dermatological Surgical History: Reports: Other (See Below) Social & Family History - Family History Family Medical History: Noncontributory Cardiac: Reports: None - Tobacco Use Smoking Status *Q: Unknown Ever Smoked - Caffeine Use Caffeine Use: Reports: Soda Other Caffeine Use: Unknown if ever used due to being currently intoxicated. 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[employer]) ED ROS GENERAL - Review of Systems Review Of Systems: See Below Constitutional: Reports: Other (Acute alcohol intoxication) HEENT: Reports: No Symptoms Respiratory: Reports: No Symptoms Cardiovascular: Reports: No Symptoms Endocrine: Reports: No Symptoms GI/Abdominal: Reports: No Symptoms : Reports: No Symptoms Musculoskeletal: Reports: No Symptoms Skin: Reports: No Symptoms Neurological: Reports: No Symptoms Psychiatric: Reports: No Symptoms Hematologic/Lymphatic: Reports: No Symptoms Immunologic: Reports: No Symptoms ED EXAM, GENERAL - Physical Exam Exam: See Below Exam Limited By: Intoxication General Appearance: Alert, WD/WN, No Apparent Distress Eye Exam: Bilateral Eye: EOMI, Normal Inspection, PERRL Ears: Normal External Exam, Normal Canal, Hearing Grossly Normal, Normal TMs Nose: Normal Inspection Throat/Mouth: Normal Inspection, Normal Lips, Normal Teeth, Normal Gums, Normal Oropharynx, Normal Voice, No Airway Compromise Head: Atraumatic, Normocephalic Neck: Normal Inspection Respiratory/Chest: No Respiratory Distress, Lungs Clear, Normal Breath Sounds, No Accessory Muscle Use, Chest Non-Tender Cardiovascular: Normal Peripheral Pulses, Regular Rate, Rhythm, No Edema, No Murmur Peripheral Pulses: 3+: Radial (L), Radial (R) GI/Abdominal: Normal Bowel Sounds, Soft, Non-Tender, No Distention, No Mass Back Exam: Normal Inspection Extremities: Normal Inspection, Normal Range of Motion, Normal Capillary Refill Neurological: Alert, CN II-XII Intact (grossly), No Motor/Sensory Deficits Skin Exam: Warm, Dry, Intact, Normal Color, No Rash Course - Vital Signs Last Recorded V/S: Last Vital Signs Temp 97.9 F 12/28/18 17:43 Pulse 68 12/28/18 17:43 Resp 16 12/28/18 17:43 BP 151/90 H 12/28/18 17:43 Pulse Ox 95 12/28/18 17:43 - Orders/Labs/Meds Orders: Active Orders 24 hr Category Date Time Status Peripheral IV Care [RC] . DIRECTED Care 12/28/18 18:10 Ordered Ondansetron [Zofran ODT] Med 12/28/18 20:35 Active 4 mg PO Q6H PRN Sodium Chloride 0.9% [Saline Flush] Med 12/28/18 18:10 Ordered 10 ml FLUSH ASDIRECTED PRN Peripheral IV Insertion Adult [OM.PC] Stat Oth 12/28/18 18:10 Ordered Medication Orders Ondansetron HCl (Zofran Odt) 4 mg PO Q6H PRN PRN Reason: Nausea/Vomiting Sodium Chloride (Saline Flush) 10 ml FLUSH ASDIRECTED PRN PRN Reason: Keep Vein Open Last Admin: 12/28/18 18:30 Dose: 10 ml Labs: Laboratory Tests 12/28/18 Range/Units 19:37 Ethyl Alcohol 0.32 (0.00) gm% Meds: Medications Generic Name Dose Route Start Last Admin Trade Name Freq PRN Reason Stop Dose Admin Ondansetron HCl 4 mg 12/28/18 20:35 Zofran Odt PO Q6H PRN Nausea/Vomiting Sodium Chloride 10 ml 12/28/18 18:10 12/28/18 18:30 Saline Flush FLUSH 10 ml ASDIRECTED PRN Administration Keep Vein Open Discontinued Medications Generic Name Dose Route Start Last Admin Trade Name Freq PRN Reason Stop Dose Admin Sodium Chloride 1,000 mls @ 999 mls/hr 12/28/18 18:10 12/28/18 18:29 Normal Saline IV 12/28/18 19:10 999 mls/hr ONETIME ONE Administration - Re-Assessments/Exams Free Text/Narrative Re-Assessment/Exam: 12/28/18 18:15 Patient presents to the ED for the evaluation of acute alcohol intoxication. I did order IV to be placed with IV normal saline for initial infusion, and a blood alcohol level to determine how acutely intoxicated she may be. The mother is present in the room, she is elderly, and was requesting that the patient be kept in the hospital overnight due to her alcohol intoxication. I discussed with the mother, just because the patient is acutely intoxicated with alcohol this does not meet indications for hospitalization at this time. The patient was requesting water, so I did provide her with this. 12/28/18 19:32 I was informed by the nurse at around 1915, that the patient had pulled her IV out, and that there was some miscommunication between them and the laboratory, so lab wishes coming over now to draw the blood alcohol level as it was not done on the initial IV stick. Unfortunately things have been delayed a little bit. Patient has been able to drink water just fine, she has gotten about half of her bag of fluids. 12/28/18 20:55 Patient's blood alcohol is 0.32, at this time she was reassessed at bedside, and she is sleeping soundly, an IV was not reestablished, but she is drinking oral fluids just fine. I did discuss the patient's course of stay with the hemodialysis charge nurse, and she believes it would be okay for the patient to stay in the ER tonight if she sleeps and is not causing too much ruckus. I did put in a PRN order for Zofran, if the patient should get nauseous. Will likely transfer care the patient to Dr. Bryant at shift change. Departure - Departure Time of Disposition: 20:58 Disposition: Home, Self-Care 01 Clinical Impression: Alcohol intoxication Qualifiers: Complication of substance-induced condition: uncomplicated Qualified Code(s): F10.920 - Alcohol use, unspecified with intoxication, uncomplicated - Discharge Information *PRESCRIPTION DRUG MONITORING PROGRAM REVIEWED*: No *COPY OF PRESCRIPTION DRUG MONITORING REPORT IN PATIENT ANTHONY: No Instructions: Alcohol Intoxication, [id number] Referrals: PCP,Unknown [Primary Care Provider] - Additional Instructions: You were evaluated in the ER today regarding her acute alcohol intoxication. Your blood alcohol level was 0.32, you were given some IV fluids, for management of this. Recommend that you try to increase your oral fluid intake at home, with beverages that do not contain alcohol, and try to cut back on your alcohol use. Please return to the ED if your symptoms should change or worsen. - My Orders Last 24 Hours: My Active Orders 12/28/18 18:10 Peripheral IV Care [RC] . DIRECTED Sodium Chloride 0.9% [Saline Flush] 10 ml FLUSH ASDIRECTED PRN Peripheral IV Insertion Adult [OM.PC] Stat 12/28/18 20:35 Ondansetron [Zofran ODT] 4 mg PO Q6H PRN - Assessment/Plan Last 24 Hours: My Active Orders 12/28/18 18:10 Peripheral IV Care [RC] . DIRECTED Sodium Chloride 0.9% [Saline Flush] 10 ml FLUSH ASDIRECTED PRN Peripheral IV Insertion Adult [OM.PC] Stat 12/28/18 20:35 Ondansetron [Zofran ODT] 4 mg PO Q6H PRN
[2018-12-28] MEDS ORDERED: Ondansetron 4 MG Tab.DIS PO PRN (20:35)
[2018-12-29] MEDS ORDERED: Sucralfate 1 GM Tab PO ONE (06:21)
== END 2018-12-29 06:50 | disposition home or self-care (01) ==
LOC: JD.ED 17:41
DX: F10.920 Alcohol use, unspecified with intoxication, uncomplicated (principal); E78.00 Pure hypercholesterolemia, unspecified; J45.909 Unspecified asthma, uncomplicated; K21.9 Gastro-esophageal reflux disease without esophagitis; F41.9 Anxiety disorder, unspecified; F32.9 Major depressive disorder, single episode, unspecified; Y90.8 Blood alcohol level of 240 mg/100 ml or more; Z88.1 Allergy status to other antibiotic agents; Z88.5 Allergy status to narcotic agent; Z88.8 Allergy status to other drugs, medicaments and biological substances; Z79.899 Other long term (current) drug therapy; Z79.51 Long term (current) use of inhaled steroids
CPT/HCPCS: 36415; 96360; 99283; 99284-25; A9270-GY; G0480; J7040

== ENCOUNTER 2018-12-30 22:38 | Emergency (ER) | payer BC ==
[2018-12-30 22:49] VITALS: BP 130/101; PULSE 98
[2018-12-30] MEDS ORDERED: Metoclopramide 10 MG/2 ML SDV IVPUSH ONE (23:29)
[2018-12-30] MEDS ORDERED: LORazepam 2 MG/ML SDV IVPUSH ONE (23:29)
[2018-12-30] MEDS ORDERED: Dextrose 5%-0.9% NaCl 1,000 ML IV SCH (23:30)
--- NOTE | 2018-12-30 23:33 | EDM.PDOCBH ---
ED HPI GENERAL MEDICAL PROBLEM - General Chief Complaint: Drug or Alcohol Abuse Stated Complaint: [facility] Time Seen by Provider: 12/30/18 23:28 Source of Information: Reports: Patient History Limitations: Reports: No Limitations - History of Present Illness INITIAL COMMENTS - FREE TEXT/NARRATIVE: 63-year-old female who is known to be a chronic alcoholic presents to the ED for evaluation. Emesis was summoned to her home this evening by her elderly mother. Patient has a history of chronic alcohol abuse and was just in detox within the last week. He continues to drink vodka in unknown quantities on daily basis and she presents at this time acutely intoxicated. She is dysarthric. She denies any recent falls or serious injuries. She reports at least 10 shots of vodka since noon today. He was somewhat agitated and uncooperative. Paramedics were able to establish an IV line and start IV fluids on her. They did not give her any medications. Vital signs are stable. Afebrile. O2 sats 98% on room air. Heart rate of 98. Blood pressure slightly elevated at 130/101. Onset: Today, Other (Apparently the patient started drinking alcohol almost immediately after discharge after detox in the hospital a week ago.) Duration: Chronic (Chronic alcohol dependency and abuse.) Location: Reports: Generalized (Generalized weakness. Dysarthria. Mother concerned she was not safe to be at home alone tonight.) Quality: Reports: Other Severity: Moderate (Acute alcohol intoxication) Improves with: Reports: None Worsens with: Reports: None Context: Reports: Other (Acute alcohol intoxication.). Denies: Activity, Exercise, Lifting, Sick Contact, Trauma Associated Symptoms: Reports: Loss of Appetite, Malaise, Weakness. Denies: Confusion, Chest Pain, Cough, cough w sputum, Diaphoresis, Fever/Chills, Headaches, Nausea/Vomiting, Rash, Seizure, Shortness of Breath, Syncope Treatments MINUTE CLERK: Reports: Other (see below) (None.) - Related Data Allergies Allergy/AdvReac Type Severity Reaction Status Date / Time levofloxacin [From Levaquin] Allergy Rash Verified 12/22/18 12:52 propoxyphene napsylate AdvReac Headache Verified 12/22/18 12:52 [From Darvocet-N] quetiapine fumarate AdvReac Confusion Verified 12/22/18 12:52 [From Seroquel] Home Meds: Home Meds Fluticasone/Salmeterol [Advair 250-50 Diskus] 1 puff IH BID 05/24/16 [History] atorvaSTATin [Lipitor] 20 mg PO DAILY 05/24/16 [History] Albuterol Sulfate [Albuterol Sulfate Hfa] 2 puff PO Q4HR PRN 12/22/18 [History] DULoxetine [Cymbalta] 30 mg PO DAILY 12/22/18 [History] Losartan [Cozaar] 12.5 mg PO DAILY 12/22/18 [History] Montelukast [Singulair] 10 mg PO QPM 12/22/18 [History] Omeprazole 20 mg PO ACBREAKFAST 12/22/18 [History] Potassium Chloride 20 meq PO DAILY 12/22/18 [History] Sucralfate [Carafate] 1 gm PO QID 12/22/18 [History] lamoTRIgine [Lamotrigine] 100 mg PO DAILY 12/22/18 [History] Folic Acid 1 mg PO DAILY #30 tablet 12/23/18 [Rx] Naltrexone 50 mg PO DAILY #30 tablet 12/23/18 [Rx] Thiamine [Vitamin B-1] 100 mg PO BEDTIME #30 tab 12/23/18 [Rx] chlordiazePOXIDE [Librium] 25 mg PO Q12HR #4 cap 12/23/18 [Rx] Past Medical History HEENT History: Reports: Impaired Vision Other HEENT History: wears glasses Cardiovascular History: Reports: High Cholesterol Respiratory History: Reports: Asthma Gastrointestinal History: Reports: GERD Genitourinary History: Reports: UTI, Recurrent LANG INTERPRETER History: Reports: Other (See Below) Other LANG INTERPRETER History: Patient states she started menopause at 54 yoa Neurological History: Reports: Headaches, Chronic Other Neuro History: headaches Psychiatric History: Reports: Addiction, Anxiety, Bipolar, Depression, Eating Disorders Other Psychiatric History: eaating disorder at age 14 Endocrine/Metabolic History: Reports: Osteoporosis Hematologic History: Reports: None Immunologic History: Reports: Other (See Below) Other Immunologic History: recurrent staph infections Oncologic (Cancer) History: Reports: None - Infectious Disease History Infectious Disease History: Reports: Chicken Pox - Past Surgical History Head Surgeries/Procedures: Reports: None HEENT Surgical History: Reports: Adenoidectomy, Oral Surgery, Tonsillectomy, Other (See Below) GI Surgical History: Reports: Appendectomy Musculoskeletal Surgical History: Reports: ORIF, Shoulder Surgery Dermatological Surgical History: Reports: Other (See Below) Social & Family History - Family History Family Medical History: Noncontributory Cardiac: Reports: None - Caffeine Use Caffeine Use: Reports: Soda Other Caffeine Use: Unknown if ever used due to being currently intoxicated. 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 Denies : Fever, Chills HEENT: Reports: Glasses Respiratory: Denies: Shortness of Breath, Wheezing, Pleuritic Chest Pain Cardiovascular: Reports: Blood Pressure Problem, Dyspnea on Exertion. Denies: Chest Pain, Claudication, Edema, Lightheadedness, Orthopnea Endocrine: Reports: Fatigue (Sometimes) GI/Abdominal: Reports: Diarrhea, Decreased Appetite, Nausea. Denies: Hematochezia (Stools are almost always on the loose side.), Vomiting ( Occasional nausea) : Reports: Frequency, Incontinence (Occasionally incontinent of urine and bowel.) Musculoskeletal: Reports: Back Pain, Joint Pain (Knees hips and neck at times) Skin: Reports: Bruising (Appreciates bruising fairly easily.) Neurological: Reports: Confusion (Related to alcohol), Difficulty Walking ( use ataxic gait ) Psychiatric: Reports: Anxiety, Depression (Considered of bipolar affective disorder.) Hematologic/Lymphatic: Reports: Easy Bruising Immunologic: Reports: No Symptoms ED EXAM, BEHAVIORAL HEALTH - Physical Exam Exam: See Below Exam Limited By: Other (Temperatures 37.0. Pulse is 98 respiratory is 20 with pulse ox of 98% on room air. BP 03/27/00.) General Appearance: Mild Distress (Unhappy about being here. Rather uncooperative at times.) Eye Exam: Bilateral Eye: Normal Inspection (No scleral icterus.), Nystagmus (On bilateral lateral gaze.) Throat/Mouth: Normal Lips, Normal Teeth, Normal Oropharynx (Tongue is a little dry.), Other Head: Atraumatic, Normocephalic, Other (No outward signs of any head or facial trauma.) Neck: Limited Range of Motion, Tender Lateral, Tender Midline. No: Full Range of Motion Respiratory/Chest: Lungs Clear ( unhappy to be here.), Normal Breath Sounds, Chest Non-Tender, Respiratory Distress (Mild tachypnea at rest but it's more due to anxiety and), Other (No signs of chest wall trauma.) Cardiovascular: Normal Peripheral Pulses, Regular Rate, Rhythm, No Edema, No Gallop, No Murmur, No Rub GI/Abdominal: Normal Bowel Sounds, Soft, No Organomegaly, No Abnormal Bruit, Tender (Tender in the epigastrium or right upper quadrant.). No: Guarding, Rigid, Rebound Back Exam: Full Range of Motion, Other (Minimal kyphosis thoracic spine.). No: CVA Tenderness (L), CVA Tenderness (R) Extremities: Normal Inspection, Normal Range of Motion, Other (Tenderness both knee joints and on internal/external rotation of hips.) Neurological: CN II-XII Intact, Normal Cognition. No: Normal Gait, Normal Reflexes, Oriented x 3 (Disoriented to time.) Psychiatric: Restless, Agitated, Uncooperative. No: Oriented (Disoriented to time) Skin Exam: Warm, Dry, Intact, Normal color, No rash COURSE, BEHAVIORAL HEALTH COMP - Course Vital Signs: Last Vital Signs Temp 37.0 C 12/30/18 22:45 Pulse 98 12/30/18 22:45 Resp 20 12/30/18 22:45 BP 130/101 H 12/30/18 22:45 Pulse Ox 98 12/30/18 22:45 Orders, Labs, Meds: Active Orders 24 hr Category Date Time Status Dextrose 5%-0.9% NaCl [Dextrose 5%-Normal Saline] 1,000 Med 12/30/18 23:30 Active ml IV ASDIRECTED Medication Orders Dextrose/Sodium Chloride (Dextrose 5%-Normal Saline) 1,000 mls @ 150 mls/hr IV ASDIRECTED STEPHANE Last Admin: 12/31/18 00:09 Dose: 150 mls/hr Laboratory Tests 12/30/18 12/30/18 12/30/18 Range/Units 23:30 23:30 23:30 WBC 6.89 (3.98-10.04) K/mm3 RBC 4.29 (3.98-5.22) M/mm3 Hgb 12.9 D (11.2-15.7) gm/dl Hct 39.6 (34.1-44.9) % MCV 92.3 D (79.4-94.8) fl MCH 30.1 (25.6-32.2) pg MCHC 32.6 (32.2-35.5) g/dl RDW Std Deviation 48.1 H (36.4-46.3) fL Plt Count 347 D (182-369) K/mm3 MPV 8.5 L (9.4-12.3) fl Neut % (Auto) 72.4 H (34.0-71.1) % Lymph % (Auto) 21.8 (19.3-51.7) % [place] % (Auto) 5.1 (4.7-12.5) % Eos % (Auto) 0 L (0.7-5.8) Baso % (Auto) 0.6 (0.1-1.2) % Neut # (Auto) 4.99 (1.56-6.13) K/mm3 Lymph # (Auto) 1.50 (1.18-3.74) K/mm3 [place] # (Auto) 0.35 (0.24-0.36) K/mm3 Eos # (Auto) 0.00 L (0.04-0.36) K/mm3 Baso # (Auto) 0.04 (0.01-0.08) K/mm3 PT 10.6 (9.7-12.0) SECONDS INR 0.97 APTT 24 (22-31) SECONDS Sodium 149 H (136-145) mEq/L Potassium 2.8 L (3.5-5.1) mEq/L Chloride 107 (98-107) mEq/L Carbon Dioxide 29 (21-32) mEq/L Anion Gap 15.8 H (5-15) BUN 7 (7-18) mg/dL Creatinine 0.6 (0.55-1.02) mg/dL Est Cr Clr Drug Dosing 77.56 mL/min Estimated GFR (MDRD) > 60 (>60) mL/min BUN/Creatinine Ratio 11.7 L (14-18) Glucose 92 (80-115) mg/dL Calcium 8.0 L (8.5-10.1) mg/dL Magnesium 1.8 (1.8-2.4) mg/dl Total Bilirubin 0.3 (0.2-1.0) mg/dL AST 44 H (15-37) U/L ALT 34 (14-59) U/L Alkaline Phosphatase 83 (46-116) U/L C-Reactive Protein < 0.2 (<1.0) mg/dL NT-Pro-B Natriuret Pep (0-125) pg/mL Total Protein 6.6 (6.4-8.2) g/dl Albumin 3.8 (3.4-5.0) g/dl Globulin 2.8 gm/dL Albumin/Globulin Ratio 1.4 (1-2) Ethyl Alcohol 0.38 (0.00) gm% 12/30/18 Range/Units 23:30 WBC (3.98-10.04) K/mm3 RBC (3.98-5.22) M/mm3 Hgb (11.2-15.7) gm/dl Hct (34.1-44.9) % MCV (79.4-94.8) fl MCH (25.6-32.2) pg MCHC (32.2-35.5) g/dl RDW Std Deviation (36.4-46.3) fL Plt Count (182-369) K/mm3 MPV (9.4-12.3) fl Neut % (Auto) (34.0-71.1) % Lymph % (Auto) (19.3-51.7) % [place] % (Auto) (4.7-12.5) % Eos % (Auto) (0.7-5.8) Baso % (Auto) (0.1-1.2) % Neut # (Auto) (1.56-6.13) K/mm3 Lymph # (Auto) (1.18-3.74) K/mm3 [place] # (Auto) (0.24-0.36) K/mm3 Eos # (Auto) (0.04-0.36) K/mm3 Baso # (Auto) (0.01-0.08) K/mm3 PT (9.7-12.0) SECONDS INR APTT (22-31) SECONDS Sodium (136-145) mEq/L Potassium (3.5-5.1) mEq/L Chloride (98-107) mEq/L Carbon Dioxide (21-32) mEq/L Anion Gap (5-15) BUN (7-18) mg/dL Creatinine (0.55-1.02) mg/dL Est Cr Clr Drug Dosing mL/min Estimated GFR (MDRD) (>60) mL/min BUN/Creatinine Ratio (14-18) Glucose (80-115) mg/dL Calcium (8.5-10.1) mg/dL Magnesium (1.8-2.4) mg/dl Total Bilirubin (0.2-1.0) mg/dL AST (15-37) U/L ALT (14-59) U/L Alkaline Phosphatase (46-116) U/L C-Reactive Protein (<1.0) mg/dL NT-Pro-B Natriuret Pep 49 (0-125) pg/mL Total Protein (6.4-8.2) g/dl Albumin (3.4-5.0) g/dl Globulin gm/dL Albumin/Globulin Ratio (1-2) Ethyl Alcohol (0.00) gm% Medications Generic Name Dose Route Start Last Admin Trade Name Freq PRN Reason Stop Dose Admin Dextrose/Sodium Chloride 1,000 mls @ 150 mls/hr 12/30/18 23:30 12/31/18 00:09 Dextrose 5%-Normal Saline IV 150 mls/hr ASDIRECTED STEPHANE Administration Discontinued Medications Generic Name Dose Route Start Last Admin Trade Name Freq PRN Reason Stop Dose Admin Potassium Chloride 10 meq/ 100 mls @ 100 mls/hr 12/31/18 02:15 12/31/18 05:38 Premix IV 12/31/18 06:14 100 mls/hr Q1H STEPHANE Administration Lorazepam 1 mg 12/30/18 23:29 12/31/18 00:04 Ativan IVPUSH 12/30/18 23:30 1 mg ONETIME ONE Administration Metoclopramide HCl 7.5 mg 12/30/18 23:29 12/31/18 00:00 Reglan IVPUSH 12/30/18 23:30 7.5 mg ONETIME ONE Administration Re-Assessment/Re-Exam: 63-year-old female presents to the ED per [facility].. The patient's mother call me months feeling that she was unsafe to stay at home tonight because she is so intoxicated by alcohol. Patient has a history of chronic alcohol dependency and abuse. Usually drinks vodka. She was detoxed about a week ago. She started drinking the day after she was discharged from the hospital. States she's been drinking since noon has had at least 10 shots of vodka. She appears to be moderately intoxicated at the time of exam. Bilateral nystagmus. No signs of any recent falls or injuries. Hasn't eaten for a couple of days. Plan IV will be D5 normal saline at 150 mils per hour. Given Ativan 1 mg IV and Reglan 7.5 mg IV to provide some degree of sedation and relief of nausea. 10 labs including ethanol level to be obtained. Re-Assessment/Re-Exam Date: 12/31/18 (Total white count is 6.89. Auto differential is 72% neutrophils. Hemoglobin is 12.9 with hematocrit 39.6. Platelets count 347,000. PT is 10.6 with an INR of 0.97. PTT is 24.) Re-Assessment/Re-Exam Time: 02:12 (Labs reveal a white count of 6.89 with a automated neutrophil count of 72.4. Hemoglobin is 12.9 hematocrit is 39.6. Platelet count 347,000. PT is 10.6 with an INR 0.97. PTT is 24. Sodium is elevated at 149. Potassium is low at 2.8. Chloride 107 with a bicarbonate of 29. Anion gap is 15.8. BUNs 7 with a creatinine of 0.6. GFR remains greater than 60. Glucose is 92. Calcium is 8.0. Magnesium is 1.8. Bilirubin is 0.3. AST is 44 with a nail to 34. Alkaline phosphatase is 83. C-reactive protein is less than 0.2. BNP is 49 with a total protein slightly low at 6.6 and albumin fraction of 3.8. Blood alcohol is currently 0.38 g percent. Plan patient will require K rider 3.) Medical Clearance: 12/31/18 03:58 patient has been asleep since arrival in the ED after given Ativan and Reglan. Vital signs remained stable. Departure - Departure Time of Disposition: 07:30 Disposition: Home, Self-Care 01 Condition: Fair Clinical Impression: Acute alcohol intoxication delirium with moderate or severe use disorder, Hypokalemia - Discharge Information *PRESCRIPTION DRUG MONITORING PROGRAM REVIEWED*: Not Applicable *COPY OF PRESCRIPTION DRUG MONITORING REPORT IN PATIENT ANTHONY: Not Applicable Instructions: Alcohol Intoxication, [id number], Alcohol Use Disorder, Potassium Content of Foods, Hypokalemia Referrals: PCP,None [Primary Care Provider] - Additional Instructions: Evaluation the emergency room overnight in regards to acute alcohol intoxication with markedly elevated blood alcohol level of 0.38 g percent. Associated low serum potassium level secondary to chronic alcohol use and minimal food intake for several days. You're treated with intravenous potassium 10 mEq 4 doses and IV fluids to provide rehydration. Metabolic abnormalities were appreciated. Strongly encourage you to seek help for alcohol use and dependency. - My Orders Last 24 Hours: My Active Orders 12/30/18 23:30 Dextrose 5%-0.9% NaCl [Dextrose 5%-Normal Saline] 1,000 ml IV ASDIRECTED - Assessment/Plan Last 24 Hours: My Active Orders 12/30/18 23:30 Dextrose 5%-0.9% NaCl [Dextrose 5%-Normal Saline] 1,000 ml IV ASDIRECTED
[2018-12-31] MEDS: Potassium Chloride 10 MEQ in Premix Bag 1 BAG IV SCH ×4 (02:30→05:38)
== END 2018-12-31 08:15 | disposition home or self-care (01) ==
LOC: JD.ED 22:38
DX: F10.221 Alcohol dependence with intoxication delirium (principal); E87.6 Hypokalemia; E78.00 Pure hypercholesterolemia, unspecified; J45.909 Unspecified asthma, uncomplicated; K21.9 Gastro-esophageal reflux disease without esophagitis; F41.9 Anxiety disorder, unspecified; F32.9 Major depressive disorder, single episode, unspecified; Y90.8 Blood alcohol level of 240 mg/100 ml or more; Z88.1 Allergy status to other antibiotic agents; Z88.5 Allergy status to narcotic agent; Z88.8 Allergy status to other drugs, medicaments and biological substances; Z79.899 Other long term (current) drug therapy; Z79.51 Long term (current) use of inhaled steroids
CPT/HCPCS: 36415; 80053; 83735; 83880; 85025; 85610; 85730; 86140; 96361; 96365; 96366; 96375; 99284; 99284-25; G0480; J2060; J2765; J3480; J7042

== ENCOUNTER 2019-02-26 10:31 | Emergency (ER) | payer BC ==
[2019-02-26 10:49] VITALS: BP 154/81; PULSE 120
[2019-02-26] MEDS ORDERED: Ondansetron 4 MG/2 ML SDV IVPUSH ONE (11:18)
[2019-02-26] MEDS ORDERED: Sodium Chloride 0.9% 10 ML Syringe FLUSH PRN (11:18)
[2019-02-26] MEDS ORDERED: LORazepam 2 MG/ML SDV IVPUSH ONE (11:18)
[2019-02-26] MEDS ORDERED: Sodium Chloride 0.9% 1,000 ML IV ONE ×2 (11:19→12:25)
--- NOTE | 2019-02-26 11:54 | EDM.PDOC ---
ED HPI GENERAL MEDICAL PROBLEM - General Chief Complaint: Drug or Alcohol Abuse Stated Complaint: DETOX Time Seen by Provider: 02/26/19 10:58 Source of Information: Reports: Patient, Old Records, RN Notes Reviewed History Limitations: Reports: No Limitations - History of Present Illness INITIAL COMMENTS - FREE TEXT/NARRATIVE: Patient is a 63-year-old female who presents to the ED for the evaluation of alcohol issues. Patient notes she has a history of heavy alcohol abuse, and she states that her last drink was around 30 hours ago. She tried to do this at home, but began to get tremulous, and has had some mild nausea vomiting and diarrhea, so she come to the ER for management. She denies ever having any sort of alcohol withdrawal seizures. She states frequently throughout the exam , that "I don't want to ." The patient notes that she has detoxed from alcohol several times, but has relapsed. Her most recent inpatient program was November 22. She states that she had 8 travel sized bottles of vodka as her last drink. She also notes that she hasn't really eaten in a while, she notes this has been around 3 days as well. Patient is visually tremulous at bedside. She denies any other sick like symptoms, like fever/chills, chest pain, shortness of breath. He states that she is supposed to have an appointment with [facility] drug and alcohol program on Saturday at 4 PM. - Related Data Allergies Allergy/AdvReac Type Severity Reaction Status Date / Time levofloxacin [From Levaquin] Allergy Rash Verified 02/26/19 10:49 propoxyphene napsylate AdvReac Headache Verified 02/26/19 10:49 [From Darvocet-N] quetiapine fumarate AdvReac Confusion Verified 02/26/19 10:49 [From Seroquel] Home Meds: Home Meds Fluticasone/Salmeterol [Advair 250-50 Diskus] 1 puff IH BID 05/24/16 [History] atorvaSTATin [Lipitor] 20 mg PO DAILY 05/24/16 [History] Albuterol Sulfate [Albuterol Sulfate Hfa] 2 puff PO Q4HR PRN 12/22/18 [History] DULoxetine [Cymbalta] 30 mg PO DAILY 12/22/18 [History] Losartan [Cozaar] 12.5 mg PO DAILY 12/22/18 [History] Montelukast [Singulair] 10 mg PO QPM 12/22/18 [History] Omeprazole 20 mg PO ACBREAKFAST 12/22/18 [History] Potassium Chloride 20 meq PO DAILY 12/22/18 [History] Sucralfate [Carafate] 1 gm PO QID 12/22/18 [History] lamoTRIgine [Lamotrigine] 100 mg PO DAILY 12/22/18 [History] Folic Acid 1 mg PO DAILY #30 tablet 12/23/18 [Rx] Naltrexone 50 mg PO DAILY #30 tablet 12/23/18 [Rx] Thiamine [Vitamin B-1] 100 mg PO BEDTIME #30 tab 12/23/18 [Rx] LORazepam [Ativan] 1 mg PO TID PRN #12 tab 02/26/19 [Rx] Ondansetron [Zofran ODT] 4 mg PO Q8H PRN #12 tab.dis 02/26/19 [Rx] Past Medical History HEENT History: Reports: Impaired Vision Other HEENT History: wears glasses Cardiovascular History: Reports: High Cholesterol Respiratory History: Reports: Asthma Gastrointestinal History: Reports: GERD Genitourinary History: Reports: UTI, Recurrent HOSE FINISHER History: Reports: Other (See Below) Other HOSE FINISHER History: Patient states she started menopause at 54 yoa Neurological History: Reports: Headaches, Chronic Other Neuro History: headaches Psychiatric History: Reports: Addiction, Anxiety, Bipolar, Depression, Eating Disorders Other Psychiatric History: eaating disorder at age 14 Endocrine/Metabolic History: Reports: Osteoporosis Hematologic History: Reports: None Immunologic History: Reports: Other (See Below) Other Immunologic History: recurrent staph infections Oncologic (Cancer) History: Reports: None - Infectious Disease History Infectious Disease History: Reports: Chicken Pox - Past Surgical History Head Surgeries/Procedures: Reports: None HEENT Surgical History: Reports: Adenoidectomy, Oral Surgery, Tonsillectomy, Other (See Below) GI Surgical History: Reports: Appendectomy Musculoskeletal Surgical History: Reports: ORIF, Shoulder Surgery Social & Family History - Family History Family Medical History: Noncontributory Cardiac: Reports: None - Tobacco Use Smoking Status *Q: Never Smoker Second Hand Smoke Exposure: No - Caffeine Use Caffeine Use: Reports: Soda Other Caffeine Use: Unknown if ever used due to being currently intoxicated. 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 Denies: Fever, Chills Respiratory: Denies: Shortness of Breath, Cough Cardiovascular: Denies: Chest Pain GI/Abdominal: Reports: Diarrhea, Nausea, Vomiting. Denies: Abdominal Pain, Hematemesis : Denies: Dysuria, Frequency, Urgency Neurological: Reports: Other (generalized tremulousness). Denies: Confusion, Dizziness, Headache, Seizure, Syncope, Gait Disturbance Psychiatric: Reports: Anxiety ED EXAM, GENERAL - Physical Exam Exam: See Below Exam Limited By: No Limitations General Appearance: Alert, WD/WN, No Apparent Distress Eye Exam: Bilateral Eye: EOMI, Normal Inspection, PERRL Throat/Mouth: Normal Inspection, Normal Lips, Normal Teeth, Normal Gums, Normal Oropharynx, Normal Voice, No Airway Compromise Head: Atraumatic, Normocephalic Neck: Normal Inspection, Supple, Non-Tender, Full Range of Motion Respiratory/Chest: No Respiratory Distress, Lungs Clear, Normal Breath Sounds, No Accessory Muscle Use, Chest Non-Tender Cardiovascular: Normal Peripheral Pulses, Regular Rate, Rhythm, No Edema, No Murmur Peripheral Pulses: 3+: Radial (L), Radial (R) GI/Abdominal: Normal Bowel Sounds, Soft, Non-Tender, No Distention, No Mass Extremities: Normal Inspection, Normal Capillary Refill, Other (generalized tremulousness) Neurological: Alert, Oriented, Normal Cognition, No Motor/Sensory Deficits Psychiatric: Normal Affect, Anxious (generalized) Skin Exam: Warm, Dry, Intact, Normal Color, No Rash Course - Vital Signs Last Recorded V/S: Last Vital Signs Temp 97.4 F 02/26/19 10:41 Pulse 120 H 02/26/19 10:41 Resp 17 02/26/19 10:41 BP 154/81 H 02/26/19 10:41 Pulse Ox 100 02/26/19 10:41 - Orders/Labs/Meds Orders: Active Orders 24 hr Category Date Time Status Peripheral IV Care [RC] . DIRECTED Care 02/26/19 11:19 Ordered INR,PT,PROTHROMBIN TIME [COAG] Stat Lab 02/26/19 11:20 Ordered PTT,PARTIAL THROMBOPLSTIN TIME [COAG] Stat Lab 02/26/19 11:20 Ordered Sodium Chloride 0.9% [Normal Saline] 1,000 ml Med 02/26/19 12:25 Ordered IV ONETIME Sodium Chloride 0.9% [Saline Flush] Med 02/26/19 11:18 Ordered 10 ml FLUSH ASDIRECTED PRN Peripheral IV Insertion Adult [OM.PC] Urgent Oth 02/26/19 11:18 Ordered Medication Orders Sodium Chloride (Normal Saline) 1,000 mls @ 999 mls/hr IV ONETIME ONE Stop: 02/26/19 13:25 Sodium Chloride (Saline Flush) 10 ml FLUSH ASDIRECTED PRN PRN Reason: Keep Vein Open Last Admin: 02/26/19 11:36 Dose: 10 ml Labs: Laboratory Tests 02/26/19 02/26/19 Range/Units 11:25 11:25 WBC 9.44 (3.98-10.04) K/mm3 RBC 4.09 (3.98-5.22) M/mm3 Hgb 12.6 (11.2-15.7) gm/dl Hct 37.0 (34.1-44.9) % MCV 90.5 (79.4-94.8) fl MCH 30.8 (25.6-32.2) pg MCHC 34.1 (32.2-35.5) g/dl RDW Std Deviation 53.5 H (36.4-46.3) fL Plt Count 303 (182-369) K/mm3 MPV 8.4 L (9.4-12.3) fl Neut % (Auto) 86.1 H (34.0-71.1) % Lymph % (Auto) 8.8 L (19.3-51.7) % [facility] [place] % (Auto) 4.8 (4.7-12.5) % Eos % (Auto) 0 L (0.7-5.8) Baso % (Auto) 0.2 (0.1-1.2) % Neut # (Auto) 8.13 H (1.56-6.13) K/mm3 Lymph # (Auto) 0.83 L (1.18-3.74) K/mm3 [facility] [place] # (Auto) 0.45 H (0.24-0.36) K/mm3 Eos # (Auto) 0.00 L (0.04-0.36) K/mm3 Baso # (Auto) 0.02 (0.01-0.08) K/mm3 Manual Slide Review Abnormal smear Sodium 134 L D (136-145) mEq/L Potassium 3.1 L (3.5-5.1) mEq/L Chloride 93 L D (98-107) mEq/L Carbon Dioxide 23 (21-32) mEq/L Anion Gap 21.1 H (5-15) BUN 11 (7-18) mg/dL Creatinine 0.5 L (0.55-1.02) mg/dL Est Cr Clr Drug Dosing 88.84 mL/min Estimated GFR (MDRD) > 60 (>60) mL/min BUN/Creatinine Ratio 22.0 H (14-18) Glucose 95 (80-115) mg/dL Calcium 8.6 (8.5-10.1) mg/dL Total Bilirubin 0.8 (0.2-1.0) mg/dL AST 39 H (15-37) U/L ALT 30 (14-59) U/L Alkaline Phosphatase 99 (46-116) U/L Total Protein 6.3 L (6.4-8.2) g/dl Albumin 3.7 (3.4-5.0) g/dl Globulin 2.6 gm/dL Albumin/Globulin Ratio 1.4 (1-2) Ethyl Alcohol 0.07 (0.00) gm% Meds: Medications Generic Name Dose Route Start Last Admin Trade Name Freq PRN Reason Stop Dose Admin Sodium Chloride 1,000 mls @ 999 mls/hr 02/26/19 12:25 Normal Saline IV 02/26/19 13:25 ONETIME ONE Sodium Chloride 10 ml 02/26/19 11:18 02/26/19 11:36 Saline Flush FLUSH 10 ml ASDIRECTED PRN Administration Keep Vein Open Discontinued Medications Generic Name Dose Route Start Last Admin Trade Name Freq PRN Reason Stop Dose Admin Sodium Chloride 1,000 mls @ 999 mls/hr 02/26/19 11:19 02/26/19 11:35 Normal Saline IV 02/26/19 12:19 999 mls/hr .BOLUS ONE Administration Lorazepam 1 mg 02/26/19 11:18 02/26/19 11:35 Ativan IVPUSH 02/26/19 11:19 1 mg ONETIME ONE Administration Ondansetron HCl 4 mg 02/26/19 11:18 02/26/19 11:37 Zofran IVPUSH 02/26/19 11:19 4 mg ONETIME ONE Administration Potassium Chloride 40 meq 02/26/19 12:30 Klor-Con M20 PO 02/26/19 12:31 ONETIME ONE - Re-Assessments/Exams Free Text/Narrative Re-Assessment/Exam: 02/26/19 11:52 Patient presents to the ED for the evaluation of alcohol issues. I did order 1 mg IV Ativan, 4 mg IV Zofran, some IV fluids, EtOH level, CBC and CMP with a PTT , PT/INR. As this is 30 hours since her last drink, I do believe, that she is at a lower risk for DTs at this particular time. I will suggest that she go to [facility] after leaving here and then reporting to [facility] on Saturday for further treatment and evaluation. 02/26/19 12:31 Anion gap elevated at 21, Potassium low at 3.1, Blood Alcohol Is 0.07. White blood cell count is within normal limits. His was made aware by the RN, the patient is requesting a home at this time. I do not believe this is in her best interest, I will have the patient and suggested she go to [facility] for management weekend, and I would like her to stay for a second bag of fluids. Patient states she will stay for the second bag of fluid, she notes she has family coming this weekend, and will have people watching her so she is accountable for her actions. I will provide the patient with some Zofran and a few tablets of Ativan over the weekend. Departure - Departure Time of Disposition: 12:43 Disposition: Home, Self-Care 01 Condition: Fair Clinical Impression: Alcohol withdrawal syndrome Qualifiers: Complication of substance-induced condition: uncomplicated Qualified Code(s): F10.230 - Alcohol dependence with withdrawal, uncomplicated - Discharge Information *PRESCRIPTION DRUG MONITORING PROGRAM REVIEWED*: No *COPY OF PRESCRIPTION DRUG MONITORING REPORT IN PATIENT ANTHONY: No Instructions: Alcohol Withdrawal Syndrome, [id number] Referrals: Renard Verduzco MD [Primary Care Provider] - Additional Instructions: You were evaluated in the ER today regarding your withdrawal from alcohol. You were given IV fluids, some Ativan, and an antinausea medication: Zofran, this did seem to help relieve your symptoms. Your laboratory evaluation suggested that you were dehydrated, you did receive 2 L of IV fluids for this. You were given a couple tablets of Ativan and some Zofran for over the weekend, please take as directed, he will need to report to [facility] on Saturday as previously scheduled for further management of your alcohol issues. Strongly and highly recommend that you do not take Ativan and alcohol together, as this can have increased sedative effects, and cause respiratory depression. Do not drink alcohol this weekend, and she will need to present to [facility] while you are sober. Recommend that you increase her intake of clear liquid fluids, such as Gatorade , Powerade, chicken broth, and advance to bland diet as tolerated over the next 24-48 hours. However if you feel hungry, you may eat. Please return to the ER at any time if your symptoms change or worsen. Sepsis Event Note - Evaluation Sepsis Screening Result: No Definite Risk - Focused Exam Vital Signs: Vital Signs Temp Pulse Resp BP Pulse Ox 02/26/19 10:41 97.4 F 120 H 17 154/81 H 100 Date Exam was Performed: 02/26/19 Time Exam was Performed: 12:31 - My Orders Last 24 Hours: My Active Orders 02/26/19 11:18 Sodium Chloride 0.9% [Saline Flush] 10 ml FLUSH ASDIRECTED PRN Peripheral IV Insertion Adult [OM.PC] Urgent 02/26/19 11:19 Peripheral IV Care [RC] . DIRECTED 02/26/19 11:20 INR,PT,PROTHROMBIN TIME [COAG] Stat PTT,PARTIAL THROMBOPLSTIN TIME [COAG] Stat 02/26/19 12:25 Sodium Chloride 0.9% [Normal Saline] 1,000 ml IV ONETIME - Assessment/Plan Last 24 Hours: My Active Orders 02/26/19 11:18 Sodium Chloride 0.9% [Saline Flush] 10 ml FLUSH ASDIRECTED PRN Peripheral IV Insertion Adult [OM.PC] Urgent 02/26/19 11:19 Peripheral IV Care [RC] . DIRECTED 02/26/19 11:20 INR,PT,PROTHROMBIN TIME [COAG] Stat PTT,PARTIAL THROMBOPLSTIN TIME [COAG] Stat 02/26/19 12:25 Sodium Chloride 0.9% [Normal Saline] 1,000 ml IV ONETIME
[2019-02-26] MEDS ORDERED: Potassium Chloride 20 MEQ Tab.ER PO ONE (12:30)
[2019-02-26] MEDS ORDERED: Alum Hydrox/Mag Hydrox/Simeth 30 ML, Lidocaine 2% 15 ML PO ONE ×2 (13:09)
== END 2019-02-26 13:53 | disposition home or self-care (01) ==
LOC: JD.ED 10:31
DX: F10.230 Alcohol dependence with withdrawal, uncomplicated (principal); Y90.0 Blood alcohol level of less than 20 mg/100 ml; E78.00 Pure hypercholesterolemia, unspecified; J45.909 Unspecified asthma, uncomplicated; K21.9 Gastro-esophageal reflux disease without esophagitis; F41.9 Anxiety disorder, unspecified; F32.9 Major depressive disorder, single episode, unspecified; Z88.8 Allergy status to other drugs, medicaments and biological substances; Z79.899 Other long term (current) drug therapy
CPT/HCPCS: 36415; 80053; 80320; 85025; 85610; 85730; 96361; 96374; 96375; 99284; A9270; J2060; J2405; J7030; 99283; G0480

== ENCOUNTER 2019-03-10 21:43 | Emergency (ER) | payer BC ==
[2019-03-10 21:51] VITALS: BP 161/100; PULSE 118
[2019-03-11] MEDS ORDERED: LORazepam 1 MG Tab PO ONE (01:44)
--- NOTE | 2019-03-11 01:56 | EDM.PDOCBH ---
ED HPI GENERAL MEDICAL PROBLEM - General Chief Complaint: Drug or Alcohol Abuse Stated Complaint: [facility] Time Seen by Provider: 03/11/19 01:17 Source of Information: Reports: Patient History Limitations: Reports: No Limitations - History of Present Illness INITIAL COMMENTS - FREE TEXT/NARRATIVE: Ms. Smith is a very pleasant 63-year-old woman with a past medical history significant for anxiety, depression, and binge-pattern alcoholism. She was admitted to [facility] drug and alcohol [facility] in [place], [place] from 09/11/2018 through 11/22/2018, after which she attended outpatient treatment at [facility] here in [place] every Saturday. She remained sober until 12/11/2018, when she resumed drinking. She then remained sober for most of the month of January, but resumed drinking right around [place], and has been drinking daily since. She typically drinks 6 airplane-sized bottles of vodka per day (1.7 oz ea = 10.2 oz = 6.8 drinks/day), which is what she drank over the course of yesterday. The patient now presents to the ED by EMS stating that she became very anxious tonight, believing that if she closed her eyes, she would not wake up. She feels like she is going to . She denies that she was experiencing a panic attack, although acknowledges that her symptoms were due to [id number] anxiety. Intellectually, she understands that she is not actually about to . She has experienced similar symptoms in the past, most recently when she was admitted to [facility]. Her symptoms resolved after a day or two. She denies recent illness or injury. The patient's PCP is Dr. Renard Verduzco. She last saw Dr. Verduzco in Nov or Dec 2018, and she does not currently have an appointment to see him again. - Related Data Allergies Allergy/AdvReac Type Severity Reaction Status Date / Time levofloxacin [From Levaquin] Allergy Rash Verified 03/10/19 21:51 propoxyphene napsylate AdvReac Headache Verified 03/10/19 21:51 [From Darvocet-N] quetiapine fumarate AdvReac Confusion Verified 03/10/19 21:51 [From Seroquel] Home Meds: Home Meds Fluticasone/Salmeterol [Advair 250-50 Diskus] 1 puff IH BID 05/24/16 [History] atorvaSTATin [Lipitor] 20 mg PO DAILY 05/24/16 [History] Albuterol Sulfate [Albuterol Sulfate Hfa] 2 puff PO Q4HR PRN 12/22/18 [History] DULoxetine [Cymbalta] 30 mg PO DAILY 12/22/18 [History] Losartan [Cozaar] 12.5 mg PO DAILY 12/22/18 [History] Montelukast [Singulair] 10 mg PO QPM 12/22/18 [History] Omeprazole 20 mg PO ACBREAKFAST 12/22/18 [History] Potassium Chloride 20 meq PO DAILY 12/22/18 [History] Sucralfate [Carafate] 1 gm PO QID 12/22/18 [History] lamoTRIgine [Lamotrigine] 100 mg PO DAILY 12/22/18 [History] Folic Acid 1 mg PO DAILY #30 tablet 12/23/18 [Rx] Naltrexone 50 mg PO DAILY #30 tablet 12/23/18 [Rx] Thiamine [Vitamin B-1] 100 mg PO BEDTIME #30 tab 12/23/18 [Rx] LORazepam [Ativan] 1 mg PO TID PRN #12 tab 02/26/19 [Rx] Ondansetron [Zofran ODT] 4 mg PO Q8H PRN #12 tab.dis 02/26/19 [Rx] Past Medical History HEENT History: Reports: Impaired Vision Other HEENT History: wears glasses Cardiovascular History: Reports: High Cholesterol Respiratory History: Reports: Asthma (PFT-proven) Gastrointestinal History: Reports: GERD Psychiatric History: Reports: Addiction (alcohol), Anxiety, Bipolar, Depression , Eating Disorders (anorexia nervosa when 14 years old) Endocrine/Metabolic History: Reports: Osteoporosis - Infectious Disease History Infectious Disease History: Reports: Chicken Pox - Past Surgical History HEENT Surgical History: Reports: Adenoidectomy, Oral Surgery (dental extractions and implants), Tonsillectomy, Other (See Below) (Right facial fracture repair) GI Surgical History: Reports: Appendectomy Musculoskeletal Surgical History: Reports: ORIF (right forearm x 5), Shoulder Surgery (Left rotator cuff x 2, open. Right 1.) Social & Family History - Family History Family Medical History: Noncontributory Cardiac: Reports: None - Tobacco Use Smoking Status *Q: Never Smoker - Caffeine Use Caffeine Use: Reports: Soda Other Caffeine Use: Unknown if ever used due to being currently intoxicated. 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 Neurological: Reports: Headache ED EXAM, BEHAVIORAL HEALTH - Physical Exam Exam: See Below Exam Limited By: No Limitations General Appearance: Alert, No Apparent Distress, Anxious Eye Exam: Bilateral Eye: EOMI, Normal Inspection Ears: Normal External Exam, Hearing Grossly Normal Nose: Normal Inspection Throat/Mouth: Normal Inspection, Normal Lips, Normal Voice, No Airway Compromise Head: Atraumatic, Normocephalic Neck: Normal Inspection, Full Range of Motion Respiratory/Chest: No Respiratory Distress, Lungs Clear, Normal Breath Sounds, No Accessory Muscle Use Cardiovascular: Normal Peripheral Pulses, Regular Rate, Rhythm, No Edema, No Gallop, No JVD, No Murmur, No Rub GI/Abdominal: Normal Bowel Sounds, Soft, Non-Tender, No Organomegaly, No Distention, No Abnormal Bruit, No Mass (Female) Exam: Deferred Rectal (Female) Exam: Deferred Back Exam: Normal Inspection, Full Range of Motion, NT Extremities: Normal Inspection, Normal Range of Motion, No Pedal Edema, Normal Capillary Refill Neurological: Alert, Normal Cognition, No Motor/Sensory Deficits, Oriented x 3, Tremor (subtle) Psychiatric: Other (Anxious) Skin Exam: Warm, Dry, Intact, Normal color, No rash COURSE, BEHAVIORAL HEALTH COMP - Course Vital Signs: Last Vital Signs Temp 36.9 C 03/10/19 21:44 Pulse 118 H 03/10/19 21:44 Resp 22 H 03/10/19 21:44 BP 161/100 H 03/10/19 21:44 Pulse Ox 99 03/10/19 21:44 Orders, Labs, Meds: Medications Discontinued Medications Generic Name Dose Route Start Last Admin Trade Name Freq PRN Reason Stop Dose Admin Al Hydroxide/Mg Hydroxide 30 ml 03/11/19 04:20 03/11/19 04:30 Mag-Al Plus PO 03/11/19 04:21 30 ml ONETIME ONE Administration Famotidine 40 mg 03/11/19 04:21 03/11/19 04:29 Pepcid PO 03/11/19 04:22 40 mg ONETIME STA Administration Lorazepam 1 mg 03/11/19 01:44 03/11/19 01:48 Ativan PO 03/11/19 01:45 1 mg ONETIME ONE Administration Medical Clearance: 03/11/19 01:45 The patient suffers from a significant anxiety disorder, medically treated, but it appears inadequately. She likely drinks alcohol to self-treat her anxiety, but when she alexa up, her anxiety heightens. As per the HPI, the patient developed significant anxiety tonight after drinking her usual amount of alcohol today, and is requesting some Ativan. I discussed this at length with the patient. I explained to the patient that alcohol withdrawal symptoms are categorized as minor, moderate, or severe, with severe alcohol withdrawal being delirium tremens, or DTs, moderate withdrawal symptoms being alcoholic hallucinosis, and minor symptoms being tremulousness, anxiety, gastrointestinal upset, tachycardia , etc. The patient is suffering from minor alcohol withdrawal symptoms, which typically resolve within 24 to 48 hours. The purpose of benzodiazepines, such as Ativan, is to try to prevent a patient who is at significant risk for the development of significant alcohol withdrawal symptoms from developing them. As this patient drinks alcohol in a binge pattern, and not a great deal of alcohol when she does drink, she is at no significantly elevated risk of the development of DTs, and therefore does not require treatment with benzodiazepines. I explained to the patient that, while taking a benzodiazepine may make her feel better, that is true of everyone, and is not a medical indication for taking a benzodiazepine. I explained that that is why I am reluctant to order Ativan for her. Further, I am concerned about the patient's pattern of drinking to intoxication then coming to the ED to receive Ativan. It is becoming a crutch. If Ativan were to diminish her desire to drink, then I would have fewer objections to ordering it, however, that is not how Ativan works. It does not diminish an alcoholic's desire to drink. I explained to the patient that she will need to follow-up with her PCP to discuss treatment options for her anxiety, since her current regimen is clearly not effective. Additionally, it is very clear that the patient's pattern of drinking will not be broken without intervention. I am therefore recommending that she sign herself back into inpatient treatment at the next available opportunity. The patient acknowledged these truths. For tontyson's purposes, I have agreed to order a single dosage of oral Ativan, then have the patient sleep here in the ED. She will have to make arrangements to get a ride home in the morning. Since she is able to take oral fluids without difficulty, she does not need an IV. 03/11/19 05:55 Notified that the patient telephoned her mother, who is now coming to pick her up. The patient tells me that she did not sleep tonight, but agreed to the previously laid out a plan of contacting her PCP to discuss more aggressive treatment for her anxiety, and to arrange for return to inpatient treatment. Departure - Departure Time of Disposition: 05:55 Disposition: Home, Self-Care 01 Condition: Good Clinical Impression: Anxiety, Alcohol dependence, binge pattern - Discharge Information *PRESCRIPTION DRUG MONITORING PROGRAM REVIEWED*: Not Applicable *COPY OF PRESCRIPTION DRUG MONITORING REPORT IN PATIENT ANTHONY: Not Applicable Instructions: Alcohol Use Disorder Referrals: Renard Verduzco MD [Physician] - Additional Instructions: You were seen in the emergency room after developing significant anxiety, fearing that you might if you try to go to sleep, associated with binge- pattern alcoholism. You received oral Ativan in the ER. Going forward, you agreed to follow-up with your PCP, Dr. Renard Verduzco, to discuss more aggressive treatment of your anxiety, and to make arrangements to return to inpatient alcohol treatment. If any other problems, please do not hesitate to return to the ER. Sepsis Event Note - Evaluation Sepsis Screening Result: No Definite Risk - Focused Exam Vital Signs: Vital Signs Temp Pulse Resp BP Pulse Ox 03/10/19 21:44 36.9 C 118 H 22 H 161/100 H 99 Date Exam was Performed: 03/11/19 Time Exam was Performed: 07:20
[2019-03-11] MEDS ORDERED: Aluminum Hydroxide/Magnesium Hydroxide/Simethicone Susp 30 ML Cup PO ONE (04:20)
[2019-03-11] MEDS ORDERED: Famotidine 20 MG Tab PO STA (04:21)
== END 2019-03-11 06:16 | disposition home or self-care (01) ==
LOC: JD.ED 21:43
DX: F41.9 Anxiety disorder, unspecified (principal); F10.20 Alcohol dependence, uncomplicated; Z88.8 Allergy status to other drugs, medicaments and biological substances; Z79.899 Other long term (current) drug therapy; Z88.1 Allergy status to other antibiotic agents
CPT/HCPCS: 99283; A9270

== ENCOUNTER 2019-03-11 07:01 | Observation (INO) | payer BC ==
[2019-03-11] MEDS ORDERED: LORazepam 2 MG/ML SDV IVPUSH ONE ×3 (07:39→14:04)
[2019-03-11] MEDS ORDERED: Ondansetron 4 MG/2 ML SDV IVPUSH ONE (07:39)
[2019-03-11] MEDS ORDERED: Sodium Chloride 0.9% 10 ML Syringe FLUSH PRN (07:40)
--- NOTE | 2019-03-11 07:41 | EDM.PDOCBH ---
ED HPI GENERAL MEDICAL PROBLEM - General Chief Complaint: Drug or Alcohol Abuse Stated Complaint: ALCOHOL DETOX Time Seen by Provider: 03/11/19 07:23 Source of Information: Reports: Patient History Limitations: Reports: No Limitations - History of Present Illness INITIAL COMMENTS - FREE TEXT/NARRATIVE: She is a 63-year-old female who presents with a request of alcohol detox and inpatient treatment. Her last drink was around noon yesterday. She states she drink 6 "airplane size bottles of vodka". Last night around 9 PM, the patient called an ambulance stating that she was having what she describes as "a panic attack ". She states that she felt like if she closed her eyes she would not wake up. She reports that she drinks this amount 3-4 days/week/ She was discharged from our ER this morning approximately one hour ago with instructions to follow-up with her primary care provider for a anxiety management as well as [facility] to discuss treatment options. Patient states that she called her mom to come pick her up and they were on her their way home and she began to have increased anxiety again and she came to the conclusion that she needs inpatient treatment and set up outpatient treatment. Patient has a long history of chronic alcoholism and a severe anxiety disorder. She has completed numerous rehabilitation stays for her alcoholism with the most recent being at [facility] with a discharge on 11/22/2018. She states that she has been working with [facility] on an outpatient basis. She states that her drug and alcohol counselor last met with her last , however he is out of the office this week. She denies any history of DTs or withdrawal induced seizures. - Related Data Allergies Allergy/AdvReac Type Severity Reaction Status Date / Time levofloxacin [From Levaquin] Allergy Rash Verified 03/11/19 16:13 propoxyphene napsylate AdvReac Headache Verified 03/11/19 16:13 [From Darvocet-N] quetiapine fumarate AdvReac Confusion Verified 03/11/19 16:13 [From Seroquel] Home Meds: Home Meds Fluticasone/Salmeterol [Advair 250-50 Diskus] 1 puff IH DAILY 05/24/16 [History] atorvaSTATin [Lipitor] 20 mg PO DAILY 05/24/16 [History] Albuterol Sulfate [Albuterol Sulfate Hfa] 2 puff PO Q4HR PRN 12/22/18 [History] DULoxetine [Cymbalta] 30 mg PO DAILY 12/22/18 [History] Losartan [Cozaar] 12.5 mg PO DAILY 12/22/18 [History] Montelukast [Singulair] 10 mg PO QPM 12/22/18 [History] Omeprazole 20 mg PO ACBREAKFAST 12/22/18 [History] Potassium Chloride 20 meq PO DAILY 12/22/18 [History] Sucralfate [Carafate] 1 gm PO QID 12/22/18 [History] lamoTRIgine [Lamotrigine] 100 mg PO DAILY 12/22/18 [History] Folic Acid 1 mg PO DAILY #30 tablet 12/23/18 [Rx] Naltrexone 50 mg PO DAILY #30 tablet 12/23/18 [Rx] Thiamine [Vitamin B-1] 100 mg PO BEDTIME #30 tab 12/23/18 [Rx] Ondansetron [Zofran ODT] 4 mg PO Q8H PRN #12 tab.dis 02/26/19 [Rx] Past Medical History HEENT History: Reports: Impaired Vision Other HEENT History: wears glasses Cardiovascular History: Reports: High Cholesterol Respiratory History: Reports: Asthma Gastrointestinal History: Reports: GERD Genitourinary History: Reports: UTI, Recurrent REVENUE CYCLE CONSULTANT History: Reports: Other (See Below) Other REVENUE CYCLE CONSULTANT History: Patient states she started menopause at 54 yoa Neurological History: Reports: Headaches, Chronic Other Neuro History: headaches Psychiatric History: Reports: Addiction, Anxiety, Bipolar, Depression, Eating Disorders Other Psychiatric History: eaating disorder at age 14 Endocrine/Metabolic History: Reports: Osteoporosis Hematologic History: Reports: None Immunologic History: Reports: Other (See Below) Other Immunologic History: recurrent staph infections Oncologic (Cancer) History: Reports: None - Infectious Disease History Infectious Disease History: Reports: Chicken Pox - Past Surgical History Head Surgeries/Procedures: Reports: None HEENT Surgical History: Reports: Adenoidectomy, Oral Surgery, Tonsillectomy, Other (See Below) GI Surgical History: Reports: Appendectomy Musculoskeletal Surgical History: Reports: ORIF, Shoulder Surgery Social & Family History - Family History Family Medical History: Noncontributory Cardiac: Reports: None - Tobacco Use Smoking Status *Q: Never Smoker Second Hand Smoke Exposure: No - Caffeine Use Caffeine Use: Reports: Soda Other Caffeine Use: Unknown if ever used due to being currently intoxicated. 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 Denies: Vision Change Respiratory: Reports: No Symptoms Cardiovascular: Reports: No Symptoms Endocrine: Reports: No Symptoms GI/Abdominal: Reports: Nausea. Denies: Abdominal Pain, Vomiting : Reports: No Symptoms Musculoskeletal: Reports: No Symptoms Skin: Reports: No Symptoms Neurological: Reports: Tremors. Denies: Confusion, Headache, Seizure Psychiatric: Reports: Anxiety. Denies: Confusion, Hallucinations, Homicidal Ideation, Suicidal Ideation Hematologic/Lymphatic: Reports: No Symptoms Immunologic: Reports: No Symptoms ED EXAM, BEHAVIORAL HEALTH - Physical Exam Exam: See Below Exam Limited By: No Limitations General Appearance: Alert, WD/WN, Moderate Distress Respiratory/Chest: No Respiratory Distress, Lungs Clear, Normal Breath Sounds, No Accessory Muscle Use, Chest Non-Tender Cardiovascular: Normal Peripheral Pulses, Regular Rate, Rhythm, No Edema, No Murmur GI/Abdominal: Normal Bowel Sounds, Soft, Non-Tender, No Distention Neurological: Alert, No Motor/Sensory Deficits, Oriented x 3, Tremor Psychiatric: Alert, Oriented, Tearful. No: Agitated, Uncooperative, Homicidal Thoughts, Auditory Hallucinations, Visual Hallucinations, Threatening Behavior Skin Exam: Warm, Dry, Intact, Normal color, No rash COURSE, BEHAVIORAL HEALTH COMP - Course Vital Signs: Last Vital Signs Temp 98.5 F 03/11/19 07:24 Pulse 99 03/11/19 15:46 Resp 16 03/11/19 15:46 BP 137/86 03/11/19 07:24 Pulse Ox 97 03/11/19 15:46 Orders, Labs, Meds: Active Orders 24 hr Category Date Time Status Sodium Chloride 0.9% [Normal Saline] 1,000 ml Med 03/11/19 07:45 Active IV ASDIRECTED Sodium Chloride 0.9% [Normal Saline] 1,000 ml Med 03/11/19 08:45 Active IV ASDIRECTED Sodium Chloride 0.9% [Normal Saline] 1,000 ml Med 03/11/19 10:15 Active IV ASDIRECTED Sodium Chloride 0.9% [Saline Flush] Med 03/11/19 07:40 Active 10 ml FLUSH ASDIRECTED PRN Peripheral IV Insertion Adult [OM.PC] Stat Oth 03/11/19 07:40 Ordered Medication Orders Duloxetine HCl (Cymbalta) 30 mg PO DAILY [facility] Folic Acid (Folic Acid) 1 mg PO DAILY [facility] Sodium Chloride (Normal Saline) 1,000 mls @ 999 mls/hr IV ASDIRECTED [facility] Last Admin: 03/11/19 07:50 Dose: 999 mls/hr Sodium Chloride (Normal Saline) 1,000 mls @ 999 mls/hr IV ASDIRECTED [facility] Last Admin: 03/11/19 09:10 Dose: 999 mls/hr Sodium Chloride (Normal Saline) 1,000 mls @ 150 mls/hr IV ASDIRECTED [facility] Last Admin: 03/11/19 17:52 Dose: 150 mls/hr Infusion: 03/11/19 17:02 Dose: 150 mls/hr Admin: 03/11/19 10:21 Dose: 150 mls/hr Thiamine HCl 1,000 mg/Magnesium Sulfate 4 gm/ Folic Acid 1 mg/ Dextrose/Sodium Chloride 1,018.2 mls @ 125 mls/hr IV ASDIRECTED [facility] Lamotrigine (Lamotrigine) 100 mg PO DAILY [facility] Lorazepam (Ativan) 1 mg IVPUSH Q4H [facility] Stop: 03/12/19 17:01 Losartan Potassium (Cozaar) 12.5 mg PO DAILY [facility] Montelukast Sodium (Singulair) 10 mg PO QPM [facility] Last Admin: 03/11/19 17:48 Dose: 10 mg Naltrexone HCl (Naltrexone) 50 mg PO DAILY [facility] Non-Formulary Medication (Fluticasone/Salmeterol) 1 puff IH BID [facility] Ondansetron HCl (Zofran Odt) 4 mg PO Q6H PRN PRN Reason: nausea, able to take PO Ondansetron HCl (Zofran) 4 mg IV Q6H PRN PRN Reason: Nausea/Vomiting Pantoprazole Sodium (Protonix) 40 mg PO ACBREAKFAST [facility] Simvastatin (Zocor) 20 mg PO BEDTIME [facility] Sodium Chloride (Saline Flush) 10 ml FLUSH ASDIRECTED PRN PRN Reason: Keep Vein Open Last Admin: 03/11/19 07:50 Dose: 10 ml Sucralfate (Carafate) 1 gm PO QID [facility] Last Admin: 03/11/19 17:48 Dose: 1 gm Thiamine HCl (Vitamin B-1) 100 mg PO BEDTIME [facility] Laboratory Tests 03/11/19 03/11/19 03/11/19 Range/Units 07:45 07:45 09:11 WBC 10.25 H (3.98-10.04) K/mm3 RBC 3.76 L (3.98-5.22) M/mm3 Hgb 11.5 (11.2-15.7) gm/dl Hct 34.6 (34.1-44.9) % MCV 92.0 (79.4-94.8) fl MCH 30.6 (25.6-32.2) pg MCHC 33.2 (32.2-35.5) g/dl RDW Std Deviation 54.8 H (36.4-46.3) fL Plt Count 428 H D (182-369) K/mm3 MPV 8.0 L (9.4-12.3) fl Neut % (Auto) 79.5 H (34.0-71.1) % Lymph % (Auto) 11.1 L (19.3-51.7) % Atlantic % (Auto) 8.7 (4.7-12.5) % Eos % (Auto) 0 L (0.7-5.8) Baso % (Auto) 0.5 (0.1-1.2) % Neut # (Auto) 8.15 H (1.56-6.13) K/mm3 Lymph # (Auto) 1.14 L (1.18-3.74) K/mm3 Atlantic # (Auto) 0.89 H (0.24-0.36) K/mm3 Eos # (Auto) 0.00 L (0.04-0.36) K/mm3 Baso # (Auto) 0.05 (0.01-0.08) K/mm3 Manual Slide Review Abnormal smear Sodium 135 L (136-145) mEq/L Potassium 2.7 L (3.5-5.1) mEq/L Chloride 96 L (98-107) mEq/L Carbon Dioxide 21 (21-32) mEq/L Anion Gap 20.7 H (5-15) BUN 11 (7-18) mg/dL Creatinine 0.6 (0.55-1.02) mg/dL Est Cr Clr Drug Dosing 76.15 mL/min Estimated GFR (MDRD) > 60 (>60) mL/min BUN/Creatinine Ratio 18.3 H (14-18) Glucose 81 (80-115) mg/dL Calcium 8.7 (8.5-10.1) mg/dL Magnesium 1.5 L (1.8-2.4) mg/dl Total Bilirubin 0.6 (0.2-1.0) mg/dL AST 38 H (15-37) U/L ALT 31 (14-59) U/L Alkaline Phosphatase 112 (46-116) U/L Total Protein 6.1 L (6.4-8.2) g/dl Albumin 3.4 (3.4-5.0) g/dl Globulin 2.7 gm/dL Albumin/Globulin Ratio 1.3 (1-2) Urine Opiates Screen Negative (PXBNIH=647) Ur Buprenorphine Scrn Negative (CUTOFF=10) Ur Oxycodone Screen Negative (WUM2KZ=056) Urine Methadone Screen Negative (TJPPHV=868) Ur Propoxyphene Screen Negative (ONFLFZ=406) Ur Barbiturates Screen Negative (BEXKWC=866) Ur Tricyclics Screen Negative (JQRBXY=441) Ur Phencyclidine Scrn Negative (CUTOFF=25) Ur Amphetamine Screen Negative (IHFDYE=188) U Methamphetamines Scrn Negative (WBLSBM=916) U Benzodiazepines Scrn Presumptive positive H (NRUCZX=460) U Cocaine Metab Screen Negative (YAFOKO=556) U Marijuana (THC) Screen Negative (CUTOFF=50) Ethyl Alcohol 0.05 (0.00) gm% Medications Generic Name Dose Route Start Last Admin Trade Name Freq PRN Reason Stop Dose Admin Duloxetine HCl 30 mg 03/12/19 09:00 Cymbalta PO DAILY [facility] Folic Acid 1 mg 03/12/19 09:00 Folic Acid PO DAILY [facility] Sodium Chloride 1,000 mls @ 999 mls/hr 03/11/19 07:45 03/11/19 07:50 Normal Saline IV 999 mls/hr ASDIRECTED [facility] Administration Sodium Chloride 1,000 mls @ 999 mls/hr 03/11/19 08:45 03/11/19 09:10 Normal Saline IV 999 mls/hr ASDIRECTED [facility] Administration Sodium Chloride 1,000 mls @ 150 mls/hr 03/11/19 10:15 03/11/19 17:52 Normal Saline IV 150 mls/hr ASDIRECTED [facility] Administration Thiamine HCl 1,000 mg/ 1,018.2 mls @ 125 mls/hr 03/11/19 15:00 Magnesium Sulfate 4 gm/ Folic IV Acid 1 mg/ Dextrose/Sodium ASDIRECTED [facility] Chloride Lamotrigine 100 mg 03/12/19 09:00 Lamotrigine PO DAILY [facility] Lorazepam 1 mg 03/11/19 21:00 Ativan IVPUSH 03/12/19 17:01 Q4H [facility] Losartan Potassium 12.5 mg 03/12/19 09:00 Cozaar PO DAILY [facility] Montelukast Sodium 10 mg 03/11/19 18:00 03/11/19 17:48 Singulair PO 10 mg QPM [facility] Administration Naltrexone HCl 50 mg 03/12/19 09:00 Naltrexone PO DAILY [facility] Non-Formulary Medication 1 puff 03/11/19 21:00 Fluticasone/Salmeterol IH BID [facility] Ondansetron HCl 4 mg 03/11/19 14:55 Zofran Odt PO Q6H PRN nausea, able to take PO Ondansetron HCl 4 mg 03/11/19 14:55 Zofran IV Q6H PRN Nausea/Vomiting Pantoprazole Sodium 40 mg 03/12/19 06:00 Protonix PO ACBREAKFAST [facility] Simvastatin 20 mg 03/12/19 21:00 Zocor PO BEDTIME [facility] Sodium Chloride 10 ml 03/11/19 07:40 03/11/19 07:50 Saline Flush FLUSH 10 ml ASDIRECTED PRN Administration Keep Vein Open Sucralfate 1 gm 03/11/19 17:00 03/11/19 17:48 Carafate PO 1 gm QID [facility] Administration Thiamine HCl 100 mg 03/11/19 21:00 Vitamin B-1 PO BEDTIME [facility] Discontinued Medications Generic Name Dose Route Start Last Admin Trade Name Freq PRN Reason Stop Dose Admin Folic Acid 1 mg 03/11/19 08:36 03/11/19 08:45 Folic Acid PO 03/11/19 08:37 1 mg ONETIME ONE Administration Magnesium Sulfate 2 gm/ Premix 50 mls @ 25 mls/hr 03/11/19 08:34 03/11/19 08: 39 IV 03/11/19 10:33 25 mls/hr ONETIME ONE Administration Ibuprofen 600 mg 03/11/19 14:30 03/11/19 14:39 Motrin PO 03/11/19 14:31 600 mg ONETIME STA Administration Ketorolac Tromethamine 30 mg 03/11/19 14:04 03/11/19 14:30 Toradol IVPUSH 03/11/19 14:05 Not Given ONETIME ONE Lorazepam 0.5 mg 03/11/19 07:39 03/11/19 07:50 Ativan IVPUSH 03/11/19 07:40 0.5 mg ONETIME ONE Administration Lorazepam 0.5 mg 03/11/19 10:49 03/11/19 10:56 Ativan IVPUSH 03/11/19 10:50 0.5 mg ONETIME ONE Administration Lorazepam 0.5 mg 03/11/19 14:04 03/11/19 14:28 Ativan IVPUSH 03/11/19 14:05 0.5 mg ONETIME ONE Administration Lorazepam 1 mg 03/11/19 14:55 Ativan IVPUSH Q6H PRN Withdrawal Symptoms Lorazepam 2 mg 03/11/19 16:00 03/11/19 17:39 Ativan IVPUSH 03/11/19 17:01 2 mg Q1H [facility] Administration Lorazepam 1 mg 03/11/19 15:00 Ativan IVPUSH 03/12/19 09:01 Q6H [facility] Lorazepam 0.5 mg 03/11/19 15:00 Ativan IVPUSH 03/12/19 09:01 Q6H [facility] Lorazepam 2 mg 03/11/19 15:00 Ativan IVPUSH 03/11/19 16:01 Q1H [facility] Ondansetron HCl 4 mg 03/11/19 07:39 03/11/19 07:50 Zofran IVPUSH 03/11/19 07:40 4 mg ONETIME ONE Administration Potassium Chloride 40 meq 03/11/19 08:31 03/11/19 08:39 Klor-Con M20 PO 03/11/19 08:32 40 meq ONETIME ONE Administration Thiamine HCl 100 mg 03/11/19 08:36 03/11/19 08:45 Vitamin B-1 PO 03/11/19 08:37 100 mg ONETIME ONE Administration Thiamine HCl 1 mg 03/11/19 14:55 Vitamin B-1 PO Q6H PRN Withdrawal Symptoms Re-Assessment/Re-Exam: Patient is visibly anxious, tremulous, and tearful on exam. Nursing has her CIWAA score as an 11. A complete Baseline labs of CBC, CMP, magnesium, EtOH, and urine drug screen. We'll give her a 1 L bolus of normal saline as well as Ativan 0.5 mg and Zofran 4 mg IV. I will then contact our social work lecturer for assistance looking a possible inpatient alcohol treatment options. 03/11/2019 0830 Patient's potassium is low at 2.7. Anion gap elevated at 20.7. Magnesium is low at 1.5. CYNTHIA 0.05. I have ordered potassium chloride 40 mEq by mouth, magnesium 2 g IV, folic acid 1 mg by mouth, and thiamine 100 mg by mouth. I will also order a second liter of normal saline to be bolused. Patient is much more relaxed after the Ativan administration. Her mother is present at the bedside at this time. I did speak with social work lecturerMaribel, she will come to visit with the patient this morning. 03/11/2019 1000 social work lecturer updated that she will be able to come visit with the patient in awhile. Pt will eat lunch. 03/11/2019 1255 car worker helperMaribel, updated that the patient preference would be to go to the [facility] for treatment. She advises that she did speak with the [facility] may expect to have a bed opened up tomorrow morning. She also spoke with [facility] and [facility], both of which have a 3 week wait list. I will contact the hospitalist to see about a possible observation admission until she can get into the [facility] bed tomorrow. 03/11/2019 1300 Called to speak with hospitalist, Dr. Parada regarding possible admission. She states that she will call back. 03/11/[address] Parada here to see pt. Pt will be admitted to observation. Departure - Departure Time of Disposition: 14:30 Disposition: Refer to Observation Condition: Fair Clinical Impression: Alcohol withdrawal syndrome Qualifiers: Complication of substance-induced condition: uncomplicated Qualified Code(s): F10.230 - Alcohol dependence with withdrawal, uncomplicated - Discharge Information *PRESCRIPTION DRUG MONITORING PROGRAM REVIEWED*: No *COPY OF PRESCRIPTION DRUG MONITORING REPORT IN PATIENT ANTHONY: No Sepsis Event Note - Evaluation Sepsis Screening Result: No Definite Risk - Focused Exam Vital Signs: Vital Signs Temp Pulse Resp BP Pulse Ox 03/11/19 07:24 98.5 F 117 H 20 137/86 98 Date Exam was Performed: 03/11/19 Time Exam was Performed: 18:30 - My Orders Last 24 Hours: My Active Orders 03/11/19 07:40 Sodium Chloride 0.9% [Saline Flush] 10 ml FLUSH ASDIRECTED PRN Peripheral IV Insertion Adult [OM.PC] Stat 03/11/19 07:45 Sodium Chloride 0.9% [Normal Saline] 1,000 ml IV ASDIRECTED 03/11/19 08:45 Sodium Chloride 0.9% [Normal Saline] 1,000 ml IV ASDIRECTED 03/11/19 10:15 Sodium Chloride 0.9% [Normal Saline] 1,000 ml IV ASDIRECTED - Assessment/Plan Last 24 Hours: My Active Orders 03/11/19 07:40 Sodium Chloride 0.9% [Saline Flush] 10 ml FLUSH ASDIRECTED PRN Peripheral IV Insertion Adult [OM.PC] Stat 03/11/19 07:45 Sodium Chloride 0.9% [Normal Saline] 1,000 ml IV ASDIRECTED 03/11/19 08:45 Sodium Chloride 0.9% [Normal Saline] 1,000 ml IV ASDIRECTED 03/11/19 10:15 Sodium Chloride 0.9% [Normal Saline] 1,000 ml IV ASDIRECTED
[2019-03-11] MEDS ORDERED: Sodium Chloride 0.9% 1,000 ML IV SCH ×3 (07:45→23:30)
[2019-03-11] MEDS ORDERED: Potassium Chloride 20 MEQ Tab.ER PO ONE (08:31)
[2019-03-11] MEDS ORDERED: Magnesium Sulfate/Water 2 GM in Premix Bag 1 BAG IV ONE (08:34)
[2019-03-11] MEDS ORDERED: Thiamine 100 MG Tab PO ONE (08:36)
[2019-03-11] MEDS ORDERED: Folic Acid 1 MG Tab PO ONE (08:36)
[2019-03-11] MEDS: Sodium Chloride 0.9% 1,000 ML IV SCH ×2 (10:21→17:52)
[2019-03-11] MEDS ORDERED: Ketorolac 30 MG/ML SDV IVPUSH ONE (14:04)
[2019-03-11] MEDS ORDERED: Ibuprofen 600 MG Tab PO STA (14:30)
[2019-03-11] MEDS ORDERED: Ondansetron 4 MG Tab.DIS PO PRN (14:55)
[2019-03-11] MEDS ORDERED: LORazepam 2 MG/ML SDV IVPUSH PRN (14:55)
[2019-03-11] MEDS ORDERED: Ondansetron 4 MG/2 ML SDV IV PRN (14:55)
[2019-03-11] MEDS ORDERED: Thiamine 200 MG/2 ML MDV PO PRN (14:55)
[2019-03-11] MEDS ORDERED: LORazepam 2 MG/ML SDV IVPUSH SCH ×3 (15:00)
[2019-03-11] MEDS ORDERED: Thiamine 1,000 MG, Magnesium Sulfate 4 GM, Folic Acid 1 MG in Dextrose 5%-0.9% NaCl 1,0... IV SCH (15:00)
--- NOTE | 2019-03-11 15:01 | PCM.HP.2 ---
H&P History of Present Illness - General Date of Service: 03/11/19 Admit Problem/Dx: Admission Diagnosis/Problem Admission Diagnosis/Problem Alcohol withdrawal syndrome - History of Present Illness Initial Comments - Free Text/Narative: She is a 63-year-old female who presents with a request of alcohol detox and inpatient treatment. Her last drink was around noon yesterday. She states she drink 6 "airplane size bottles of vodka". Last night around 9 PM, the patient called an ambulance stating that she was having what she describes as "a panic attack ". She states that she felt like if she closed her eyes she would not wake up. She reports that she drinks this amount 3-4 days/week/ She was discharged from our ER this morning approximately one hour ago with instructions to follow-up with her primary care provider for a anxiety management as well as [employer] drug and alcohol to discuss treatment options. Patient states that she called her mom to come pick her up and they were on her their way home and she began to have increased anxiety again and she came to the conclusion that she needs inpatient treatment and set up outpatient treatment. Patient has a long history of chronic alcoholism and a severe anxiety disorder. She has completed numerous rehabilitation stays for her alcoholism with the most recent being at [facility] with a discharge on 11/22/2018. She states that she has been working with [employer] drug and alcohol on an outpatient basis. She states that her drug and alcohol counselor last met with her last , however he is out of the office this week. She denies any history of DTs or withdrawal induced seizures. - Related Data Allergies/Adverse Reactions: Allergies Allergy/AdvReac Type Severity Reaction Status Date / Time levofloxacin [From Levaquin] Allergy Rash Verified 03/11/19 07:27 propoxyphene napsylate AdvReac Headache Verified 03/11/19 07:27 [From Darvocet-N] quetiapine fumarate AdvReac Confusion Verified 03/11/19 07:27 [From Seroquel] Home Medications: Home Meds Fluticasone/Salmeterol [Advair 250-50 Diskus] 1 puff IH BID 05/24/16 [History] atorvaSTATin [Lipitor] 20 mg PO DAILY 05/24/16 [History] Albuterol Sulfate [Albuterol Sulfate Hfa] 2 puff PO Q4HR PRN 12/22/18 [History] DULoxetine [Cymbalta] 30 mg PO DAILY 12/22/18 [History] Losartan [Cozaar] 12.5 mg PO DAILY 12/22/18 [History] Montelukast [Singulair] 10 mg PO QPM 12/22/18 [History] Omeprazole 20 mg PO ACBREAKFAST 12/22/18 [History] Potassium Chloride 20 meq PO DAILY 12/22/18 [History] Sucralfate [Carafate] 1 gm PO QID 12/22/18 [History] lamoTRIgine [Lamotrigine] 100 mg PO DAILY 12/22/18 [History] Folic Acid 1 mg PO DAILY #30 tablet 12/23/18 [Rx] Naltrexone 50 mg PO DAILY #30 tablet 12/23/18 [Rx] Thiamine [Vitamin B-1] 100 mg PO BEDTIME #30 tab 12/23/18 [Rx] Ondansetron [Zofran ODT] 4 mg PO Q8H PRN #12 tab.dis 02/26/19 [Rx] Past Medical History HEENT History: Reports: Impaired Vision Other HEENT History: wears glasses Cardiovascular History: Reports: High Cholesterol Respiratory History: Reports: Asthma Gastrointestinal History: Reports: GERD Genitourinary History: Reports: UTI, Recurrent [employer] History: Reports: Other (See Below) Other OB/BYN History: Patient states she started menopause at 54 yoa Neurological History: Reports: Headaches, Chronic Other Neuro History: headaches Psychiatric History: Reports: Addiction, Anxiety, Bipolar, Depression, Eating Disorders Other Psychiatric History: eaating disorder at age 14 Endocrine/Metabolic History: Reports: Osteoporosis Hematologic History: Reports: None Immunologic History: Reports: Other (See Below) Other Immunologic History: recurrent staph infections Oncologic (Cancer) History: Reports: None - Infectious Disease History Infectious Disease History: Reports: Chicken Pox - Past Surgical History Head Surgeries/Procedures: Reports: None HEENT Surgical History: Reports: Adenoidectomy, Oral Surgery, Tonsillectomy, Other (See Below) GI Surgical History: Reports: Appendectomy Musculoskeletal Surgical History: Reports: ORIF, Shoulder Surgery Social & Family History - Family History Family Medical History: Noncontributory Cardiac: Reports: None - Tobacco Use Smoking Status *Q: Never Smoker Second Hand Smoke Exposure: No - Caffeine Use Caffeine Use: Reports: Soda Other Caffeine Use: Unknown if ever used due to being currently intoxicated. 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[employer]) H&P Review of Systems - Review of Systems: Review Of Systems: See Below General: Denies: Fever, Chills, Malaise, Weakness, Fatigue, Night Sweats, Diaphoresis HEENT: Denies: Contact Lenses, Dysphasia, Ear Pain, Post Nasal Drip, Sinus Congestion, Sore Throat, Vertigo, Visual Changes Pulmonary: Denies: Shortness of Breath, Wheezing, Pleuritic Chest Pain, Cough, Sputum Cardiovascular: Denies: Chest Pain, Palpitations, Dyspnea on Exertion, Orthopnea , PND, Edema, Lightheadedness Gastrointestinal: Denies: Abdominal Pain, Anorexia, Black Stool, Bloody Stool, Constipation, Diarrhea, Decreased Appetite, Difficulty Swallowing, Distension, Nausea, Vomiting Genitourinary: Denies: Dysuria, Frequency, Burning, Pain, Urgency Musculoskeletal: Denies: Joint Pain, Joint Swelling, Muscle Pain, Muscle Stiffness Skin: Denies: Cyanosis, Jaundice, Mottled, Pallor, Diaphoresis Psychiatric: Reports: Depression, Mood Lability, Anxiety, Agitation, Cravings. Denies: Confusion, Hallucinations, Suicidal Ideation, Homicidal Ideation, Hallucinations (Auditory) Neurological: Denies: Confusion, Dizziness, Headache, Numbness Hematologic/Lymphatic: Denies: Anemia, Easy Bleeding, Easy Bruising Immunologic: Denies: Anaphylaxis, Food Allergy, Environmental Allergy Exam - Exam Exam: See Below - Vital Signs Vital Signs: Last Vital Signs Temp 98.5 F 03/11/19 07:24 Pulse 117 H 03/11/19 07:24 Resp 20 03/11/19 07:24 BP 137/86 03/11/19 07:24 Pulse Ox 98 03/11/19 07:24 Weight: 48.988 kg - Exam General: Alert, Oriented, Cooperative, Moderate Distress HEENT: Mucosa Moist & [place]. No: Conjunctiva Clear Neck: Supple, Trachea Midline, +2 Carotid Pulse wo Bruit, Full Range of Motion. No: Lymphadenopathy Lungs: Clear to Auscultation, Normal Respiratory Effort. No: Crackles, Rales, Rhonchi, Rub, Wheezing Cardiovascular: Regular Rate, Regular Rhythm. No: Systolic Murmur, Diastolic Murmur, Rubs, Gallop/S3, Gallop/S4 GI/Abdominal Exam: Normal Bowel Sounds, Soft, Non-Tender Extremities: Normal Inspection, Normal Range of Motion Skin: Warm Neuro Extensive - Motor, Sensory, Reflexes: Tremor Psychiatric: Alert, Anxious, Agitated - Patient Data Result Diagrams: 03/11/19 07:45 03/11/19 07:45 Sepsis Event Note - Evaluation Sepsis Screening Result: No Definite Risk - Focused Exam Vital Signs: Vital Signs Temp Pulse Resp BP Pulse Ox 03/11/19 07:24 98.5 F 117 H 20 137/86 98 Date Exam was Performed: 03/11/19 Time Exam was Performed: 15:11 - Problem List (1) Alcohol dependence, binge pattern SNOMED Code(s): 100781265 ICD Code: F10.20 - ALCOHOL DEPENDENCE, UNCOMPLICATED Status: Acute Current Visit: No (2) Alcohol intoxication SNOMED Code(s): 34419867 ICD Code: F10.129 - ALCOHOL ABUSE WITH INTOXICATION, UNSPECIFIED Status: Acute Current Visit: No Qualifiers: Complication of substance-induced condition: uncomplicated Qualified Code(s ): F10.920 - Alcohol use, unspecified with intoxication, uncomplicated (3) Depressive disorder SNOMED Code(s): 67344104 ICD Code: F32.9 - MAJOR DEPRESSIVE DISORDER, SINGLE EPISODE, UNSPECIFIED Status: Acute Current Visit: No (4) Leukocytosis SNOMED Code(s): 908239036, 387755434 ICD Code: D72.829 - ELEVATED WHITE BLOOD CELL COUNT, UNSPECIFIED Status: Acute Current Visit: Yes (5) Hypomagnesemia SNOMED Code(s): 431070047 ICD Code: E83.42 - HYPOMAGNESEMIA Status: Acute Current Visit: Yes (6) Anxiety SNOMED Code(s): 11080035 ICD Code: F41.9 - ANXIETY DISORDER, UNSPECIFIED Status: Acute Current Visit: No (7) Dyslipidemia SNOMED Code(s): 327081299 ICD Code: E78.5 - HYPERLIPIDEMIA, UNSPECIFIED Status: Acute Current Visit : Yes (8) Hypertension SNOMED Code(s): 33323064 ICD Code: I10 - ESSENTIAL (PRIMARY) HYPERTENSION Status: Acute Current Visit: Yes (9) Asthma SNOMED Code(s): 055452454 ICD Code: J45.909 - UNSPECIFIED ASTHMA, UNCOMPLICATED Status: Acute Current Visit: Yes Problem List Initiated/Reviewed/Updated: Yes Assessment/Plan Comment:: Alcohol dependence, binge pattern Alcohol intoxication Major depressive disorder Anxiety Last drink yesterday at noon PLAN - Continue lamotrigine, duloxetine, naltrexone, thiamine and folic acid - CIWA protocol - Ativan as per protocol - LR at 125ml/hr - Banana bag today and in AM Hypokalemia Hypomagnesemia K 2.7 Mg 1.5 PLAN - Banana bag - 60mEq KCL IV - Repeat level in AM Hypertension BP on [id number] PLAN - Continue Losartan - PRN hydralazine Asthma Controlled Home management with Advair, Singulair and [place] albuterol PLAN - Continue home medications - Monitor SatO2 Dyslipidemia No acute issues PLAN - Continue home Atorvastatin PROPHYLAXIS DVT- Ambulation GI- Not indicated CODE STATUS: FULL CODE DISPOSITION: Patient will be admitted under observation pending transfer to [facility] in the AM for inpatient rehab. - Mortality Measure Prognosis:: Good
[2019-03-11] MEDS: LORazepam 2 MG/ML SDV IVPUSH SCH ×3 (16:04→20:35)
[2019-03-11] MEDS: Sucralfate 1 GM Tab PO SCH ×2 (17:48→20:35)
[2019-03-11] MEDS ORDERED: Montelukast 10 MG Tab PO SCH (18:00)
[2019-03-11] MEDS ORDERED: Non-Formulary Medication 1 Each (Fluticasone/Salmeterol 1 PUFF) IH SCH (21:00)
[2019-03-11] MEDS ORDERED: Thiamine 100 MG Tab PO SCH (21:00)
[2019-03-12] MEDS: LORazepam 2 MG/ML SDV IVPUSH SCH ×3 (00:41→09:33)
[2019-03-12 05:16] VITALS: PULSE 93
[2019-03-12] MEDS ORDERED: Pantoprazole 40 MG Tab.CR PO SCH (06:00)
[2019-03-12 08:23] VITALS: BP 143/84
[2019-03-12] MEDS ORDERED: Magnesium Sulfate/Water 4 GM in Premix Bag 1 BAG IV ONE (08:47)
[2019-03-12] MEDS ORDERED: Potassium Chloride 20 MEQ Tab.ER PO ONE (08:47)
[2019-03-12] MEDS ORDERED: Folic Acid 1 MG Tab PO SCH (09:00)
[2019-03-12] MEDS ORDERED: DULoxetine 30 MG Cap PO SCH (09:00)
[2019-03-12] MEDS ORDERED: lamoTRIgine 100 MG Tab PO SCH (09:00)
[2019-03-12] MEDS ORDERED: Naltrexone 50 MG Tab PO SCH (09:00)
[2019-03-12] MEDS ORDERED: Losartan 25 MG Tab PO SCH (09:00)
[2019-03-12] MEDS: Sucralfate 1 GM Tab PO SCH (09:33)
--- NOTE | 2019-03-12 11:19 | PCM.DCSUM1 ---
Discharge Summary - Hospital Course HPI Initial Comments: She is a 63-year-old female who presents with a request of alcohol detox and inpatient treatment. Her last drink was around noon yesterday. She states she drink 6 "airplane size bottles of vodka". Last night around 9 PM, the patient called an ambulance stating that she was having what she describes as "a panic attack ". She states that she felt like if she closed her eyes she would not wake up. She reports that she drinks this amount 3-4 days/week/ She was discharged from our ER this morning approximately one hour ago with instructions to follow-up with her primary care provider for a anxiety management as well as [employer] drug and alcohol to discuss treatment options. Patient states that she called her mom to come pick her up and they were on her their way home and she began to have increased anxiety again and she came to the conclusion that she needs inpatient treatment and set up outpatient treatment. Patient has a long history of chronic alcoholism and a severe anxiety disorder. She has completed numerous rehabilitation stays for her alcoholism with the most recent being at [facility] with a discharge on 11/22/2018. She states that she has been working with [employer] [facility] and alcohol on an outpatient basis. She states that her drug and alcohol counselor last met with her last , however he is out of the office this week. She denies any history of DTs or withdrawal induced seizures. Diagnosis: Stroke: No - Discharge Data Discharge Date: 03/12/19 Discharge Disposition: DC/Tfer to Other 70 Condition: Stable - Referral to Home Health Primary Care Physician: Renard Verduzco MD - Patient Summary/Data Hospital Course: Admitted overnight for replacement of her potassium and magnesium. Patient was treated with Ativan 1 mg IV every 4 hours for alcohol withdrawal. She did well and is ready for discharge to residential care. - Patient Instructions Diet: Usual Diet as Tolerated, No Alcoholic Beverages Activity: As Tolerated Driving: Do Not Drive Showering/Bathing: May Shower Other/Special Instructions: Follow up with [facility] today. Follow up with PCP next week. - Discharge Plan *PRESCRIPTION DRUG MONITORING PROGRAM REVIEWED*: No *COPY OF PRESCRIPTION DRUG MONITORING REPORT IN PATIENT ANTHONY: No Prescriptions/Med Rec: LORazepam 1 mg PO Q4HR #6 tablet Home Medications: Home Meds Fluticasone/Salmeterol [Advair 250-50 Diskus] 1 puff IH DAILY 05/24/16 [History] atorvaSTATin [Lipitor] 20 mg PO DAILY 05/24/16 [History] Albuterol Sulfate [Albuterol Sulfate Hfa] 2 puff PO Q4HR PRN 12/22/18 [History] DULoxetine [Cymbalta] 30 mg PO DAILY 12/22/18 [History] Losartan [Cozaar] 12.5 mg PO DAILY 12/22/18 [History] Montelukast [Singulair] 10 mg PO QPM 12/22/18 [History] Omeprazole 20 mg PO ACBREAKFAST 12/22/18 [History] Potassium Chloride 20 meq PO DAILY 12/22/18 [History] Sucralfate [Carafate] 1 gm PO QID 12/22/18 [History] lamoTRIgine [Lamotrigine] 100 mg PO DAILY 12/22/18 [History] Folic Acid 1 mg PO DAILY #30 tablet 12/23/18 [Rx] Naltrexone 50 mg PO DAILY #30 tablet 12/23/18 [Rx] Thiamine [Vitamin B-1] 100 mg PO BEDTIME #30 tab 12/23/18 [Rx] Ondansetron [Zofran ODT] 4 mg PO Q8H PRN #12 tab.dis 02/26/19 [Rx] LORazepam 1 mg PO Q4HR #6 tablet 03/12/19 [Rx] Referrals: Renard Verduzco MD [Primary Care Provider] - 03/19/19 3:00 pm (Please follow up with Dr. Verduzco on , March 19 at 3pm.) - Discharge Summary/Plan Comment DC Time >30 min.: No - General Info Date of Service: 03/12/19 Admission Dx/Problem (Free Text: Admission Diagnosis/Problem Admission Diagnosis/Problem Alcohol withdrawal syndrome Subjective Update: Patient is doing well this morning. She is ready to transfer to residential care for her alcoholism. - Review of Systems General: Reports: No Symptoms HEENT: Reports: No Symptoms Pulmonary: Reports: No Symptoms Cardiovascular: Reports: No Symptoms Gastrointestinal: Reports: No Symptoms Musculoskeletal: Reports: No Symptoms - Patient Data Vitals - Most Recent: Last Vital Signs Temp 98.1 F 03/12/19 08:20 Pulse 93 01/16/20 08:20 Resp 16 03/12/19 08:20 BP 143/84 H 03/12/19 09:32 Pulse Ox 100 03/12/19 08:20 Weight - Most Recent: 123 lb 9.6 oz I&O - Last 24 hours: Intake & Output 03/11/19 03/12/19 03/12/19 22:59 06:59 14:59 Intake Total 0 1513 120 Output Total 150 Balance 0 1363 120 Lab Results - Last 24 hrs: Laboratory Results - last 24 hr 03/12/19 03/12/19 Range/Units 05:10 05:10 WBC 4.87 (3.98-10.04) K/mm3 RBC 3.24 L (3.98-5.22) M/mm3 Hgb 9.8 L D (11.2-15.7) gm/dl Hct 31.4 L (34.1-44.9) % MCV 96.9 H D (79.4-94.8) fl MCH 30.2 (25.6-32.2) pg MCHC 31.2 L (32.2-35.5) g/dl RDW Std Deviation 59.7 H (36.4-46.3) fL Plt Count 305 D (182-369) K/mm3 MPV 8.9 L (9.4-12.3) fl Sodium 142 (136-145) mEq/L Potassium 3.3 L (3.5-5.1) mEq/L Chloride 107 (98-107) mEq/L Carbon Dioxide 26 (21-32) mEq/L Anion Gap 12.3 (5-15) BUN 13 (7-18) mg/dL Creatinine 0.7 (0.55-1.02) mg/dL Est Cr Clr Drug Dosing 74.70 mL/min Estimated GFR (MDRD) > 60 (>60) mL/min BUN/Creatinine Ratio 18.6 H (14-18) Glucose 107 (80-115) mg/dL Calcium 7.4 L (8.5-10.1) mg/dL Phosphorus 3.8 (2.6-4.7) mg/dL Magnesium 1.6 L (1.8-2.4) mg/dl Med Orders - Current: Current Medications Duloxetine HCl (Cymbalta) 30 mg PO DAILY [facility] Last Admin: 03/12/19 09:33 Dose: 30 mg Folic Acid (Folic Acid) 1 mg PO DAILY [facility] Last Admin: 03/12/19 09:33 Dose: 1 mg Sodium Chloride (Normal Saline) 1,000 mls @ 75 mls/hr IV ASDIRECTED [facility] Last Admin: 03/12/19 04:50 Dose: 75 mls/hr Magnesium Sulfate 4 gm/ Premix 50 mls @ 12.5 mls/hr IV ONETIME ONE Stop: 03/12/19 12:46 Last Admin: 03/12/19 09:35 Dose: 12.5 mls/hr Lamotrigine (Lamotrigine) 100 mg PO DAILY [facility] Last Admin: 03/12/19 09:33 Dose: 100 mg Lorazepam (Ativan) 1 mg IVPUSH Q4H [facility] Stop: 03/12/19 17:01 Last Admin: 03/12/19 09:33 Dose: 1 mg Losartan Potassium (Cozaar) 12.5 mg PO DAILY [facility] Last Admin: 03/12/19 09:32 Dose: 12.5 mg Montelukast Sodium (Singulair) 10 mg PO QPM [facility] Last Admin: 03/11/19 17:48 Dose: 10 mg Naltrexone HCl (Naltrexone) 50 mg PO DAILY [facility] Last Admin: 03/12/19 09:33 Dose: 50 mg Non-Formulary Medication (Fluticasone/Salmeterol) 1 puff IH BID [facility] Ondansetron HCl (Zofran Odt) 4 mg PO Q6H PRN PRN Reason: nausea, able to take PO Ondansetron HCl (Zofran) 4 mg IV Q6H PRN PRN Reason: Nausea/Vomiting Pantoprazole Sodium (Protonix) 40 mg PO ACBREAKFAST [facility] Last Admin: 03/12/19 05:00 Dose: 40 mg Simvastatin (Zocor) 20 mg PO BEDTIME [facility] Sodium Chloride (Saline Flush) 10 ml FLUSH ASDIRECTED PRN PRN Reason: Keep Vein Open Last Admin: 03/11/19 07:50 Dose: 10 ml Sucralfate (Carafate) 1 gm PO QID [facility] Last Admin: 03/12/19 09:33 Dose: 1 gm Thiamine HCl (Vitamin B-1) 100 mg PO BEDTIME [facility] Last Admin: 03/11/19 20:35 Dose: 100 mg Discontinued Medications Folic Acid (Folic Acid) 1 mg PO ONETIME ONE Stop: 03/11/19 08:37 Last Admin: 03/11/19 08:45 Dose: 1 mg Sodium Chloride (Normal Saline) 1,000 mls @ [facility] Last Admin: 03/11/19 07:50 Dose: 999 mls/hr Magnesium Sulfate 2 gm/ Premix 50 mls @ 25 mls/hr IV ONETIME ONE Stop: 03/11/19 10:33 Last Admin: 03/11/19 08:39 Dose: 25 mls/hr Sodium Chloride (Normal Saline) 1,000 mls @ 999 mls[facility] Last Admin: 03/11/19 09:10 Dose: 999 mls/hr Sodium Chloride (Normal Saline) 1,000 mls @ 150 mls/hr IV [facility] Last Admin: 03/11/19 17:52 Dose: 150 mls/hr Thiamine HCl 1,000 mg/Magnesium Sulfate 4 gm/ Folic Acid 1 mg/ Dextrose/Sodium Chloride 1,018.2 mls @ 125 mls/hr IV [facility] Ibuprofen (Motrin) 600 mg PO ONETIME STA Stop: 03/11/19 14:31 Last Admin: 03/11/19 14:39 Dose: 600 mg Ketorolac Tromethamine (Toradol) 30 mg IVPUSH ONETIME ONE Stop: 03/11/19 14:05 Last Admin: 03/11/19 14:30 Dose: Not Given Lorazepam (Ativan) 0.5 mg IVPUSH ONETIME ONE Stop: 03/11/19 07:40 Last Admin: 03/11/19 07:50 Dose: 0.5 mg Lorazepam (Ativan) 0.5 mg IVPUSH ONETIME ONE Stop: 03/11/19 10:50 Last Admin: 03/11/19 10:56 Dose: 0.5 mg Lorazepam (Ativan) 0.5 mg IVPUSH ONETIME ONE Stop: 03/11/19 14:05 Last Admin: 03/11/19 14:28 Dose: 0.5 mg Lorazepam (Ativan) 1 mg IVPUSH Q6H PRN PRN Reason: Withdrawal Symptoms Lorazepam (Ativan) 2 mg IVPUSH Q1H [facility] Stop: 01/15/20 17:01 Last Admin: 03/11/19 17:39 Dose: 2 mg Lorazepam (Ativan) 1 mg IVPUSH Q6H [facility] Stop: 03/12/19 09:01 Last Admin: 03/11/19 19:53 Dose: Not Given Lorazepam (Ativan) 0.5 mg IVPUSH Q6H [facility] Stop: 03/12/19 09:01 Last Admin: 03/11/19 19:53 Dose: Not Given Lorazepam (Ativan) 2 mg IVPUSH Q1H [facility] Stop: 03/11/19 16:01 Last Admin: 03/11/19 19:53 Dose: Not Given Ondansetron HCl (Zofran) 4 mg IVPUSH ONETIME ONE Stop: 03/11/19 07:40 Last Admin: 03/11/19 07:50 Dose: 4 mg Potassium Chloride (Klor-Con M20) 40 meq PO ONETIME ONE Stop: 03/11/19 08:32 Last Admin: 03/11/19 08:39 Dose: 40 meq Potassium Chloride (Klor-Con M20) 40 meq PO ONETIME ONE Stop: 03/12/19 08:48 Last Admin: 03/12/19 09:33 Dose: 40 meq Thiamine HCl (Vitamin B-1) 100 mg PO ONETIME ONE Stop: 03/11/19 08:37 Last Admin: 03/11/19 08:45 Dose: 100 mg Thiamine HCl (Vitamin B-1) 1 mg PO Q6H PRN PRN Reason: Withdrawal Symptoms - Exam Quality Assessment: Denies: Supplemental Oxygen General: Reports: Alert, Oriented HEENT: Reports: Pupils Equal, Pupils Reactive, EOMI, Mucous Membr. Moist/[place] Neck: Reports: Supple Lungs: Reports: Clear to Auscultation, Normal Respiratory Effort Cardiovascular: Reports: Regular Rate, Regular Rhythm GI/Abdominal Exam: Normal Bowel Sounds, Soft, Non-Tender, No Organomegaly, No Distention, No Abnormal Bruit, No Mass, Pelvis Stable Extremities: Normal Inspection, Normal Range of Motion, No Pedal Edema Psy/Mental Status: Reports: Alert, Normal Affect, Normal Mood
[2019-03-12] MEDS ORDERED: Simvastatin 20 MG Tab PO SCH (21:00)
== END 2019-03-12 12:15 | disposition other institution (70) ==
LOC: JD.ED 07:01 → EEVIPCON 14:43 → JD.MS 14:43
PROVIDERS: ADMIT Internal Medicine; ATTEND Internal Medicine
DX: F10.239 Alcohol dependence with withdrawal, unspecified (principal); F10.229 Alcohol dependence with intoxication, unspecified; F41.9 Anxiety disorder, unspecified; E83.42 Hypomagnesemia; I10 Essential (primary) hypertension; E78.00 Pure hypercholesterolemia, unspecified; E78.5 Hyperlipidemia, unspecified; E87.6 Hypokalemia; J45.909 Unspecified asthma, uncomplicated; K21.9 Gastro-esophageal reflux disease without esophagitis; F31.9 Bipolar disorder, unspecified; M81.0 Age-related osteoporosis without current pathological fracture; Z88.1 Allergy status to other antibiotic agents; Z88.5 Allergy status to narcotic agent; Z88.8 Allergy status to other drugs, medicaments and biological substances; Z79.899 Other long term (current) drug therapy
CPT/HCPCS: 36415; 80048; 80053; 80306; 80320; 83735; 84100; 85025; 85027; 96361; 96365; 96366; 96375; 96376; 99284; A9270; J2060; J2405; J3475; J7030; 99217; 99219; G0378; G0480

== ENCOUNTER 2019-04-01 08:00 | Emergency (ER) | payer BC ==
[2019-04-01] MEDS ORDERED: Sodium Chloride 0.9% 10 ML Syringe FLUSH PRN (08:26)
[2019-04-01] MEDS ORDERED: Ondansetron 4 MG/2 ML SDV IVPUSH ONE (08:26)
[2019-04-01] MEDS ORDERED: LORazepam 2 MG/ML SDV IVPUSH ONE ×3 (08:28→10:32)
[2019-04-01 08:29] VITALS: BP 153/97; PULSE 130
[2019-04-01] MEDS ORDERED: Sodium Chloride 0.9% 1,000 ML IV SCH (08:30)
--- NOTE | 2019-04-01 08:38 | EDM.PDOCBH ---
ED HPI GENERAL MEDICAL PROBLEM - General Chief Complaint: Drug or Alcohol Abuse Stated Complaint: ALCOHOL WITHDRAWAL Time Seen by Provider: 04/01/19 08:10 Source of Information: Reports: Patient History Limitations: Reports: No Limitations - History of Present Illness INITIAL COMMENTS - FREE TEXT/NARRATIVE: The patient presents for alcohol withdrawal. She is an alcoholic and she has been admitted multiple times and been to treatment multiple times. She was just released from [facility] 5 days ago and she started drinking. She last drank last night at 6pm. She has nausea and vomiting and she is shaking. She thinks she is going to . She has no chest pain or shortness of breath. Onset: Gradual Duration: Day(s): Location: Reports: Abdomen Quality: Reports: Ache Severity: Moderate Improves with: Reports: None Worsens with: Reports: None Associated Symptoms: Reports: Nausea/Vomiting. Denies: Chest Pain, Cough, Fever /Chills, Headaches, Shortness of Breath - Related Data Allergies Allergy/AdvReac Type Severity Reaction Status Date / Time levofloxacin [From Levaquin] Allergy Rash Verified 03/11/19 16:13 propoxyphene napsylate AdvReac Headache Verified 03/11/19 16:13 [From Darvocet-N] quetiapine fumarate AdvReac Confusion Verified 03/11/19 16:13 [From Seroquel] Home Meds: Home Meds Fluticasone/Salmeterol [Advair 250-50 Diskus] 1 puff IH DAILY 05/24/16 [History] atorvaSTATin [Lipitor] 20 mg PO DAILY 05/24/16 [History] Albuterol Sulfate [Albuterol Sulfate Hfa] 2 puff PO Q4HR PRN 12/22/18 [History] DULoxetine [Cymbalta] 30 mg PO DAILY 12/22/18 [History] Losartan [Cozaar] 12.5 mg PO DAILY 12/22/18 [History] Montelukast [Singulair] 10 mg PO QPM 12/22/18 [History] Omeprazole 20 mg PO ACBREAKFAST 12/22/18 [History] Potassium Chloride 20 meq PO DAILY 12/22/18 [History] Sucralfate [Carafate] 1 gm PO QID 12/22/18 [History] lamoTRIgine [Lamotrigine] 100 mg PO DAILY 12/22/18 [History] Folic Acid 1 mg PO DAILY #30 tablet 12/23/18 [Rx] Naltrexone 50 mg PO DAILY #30 tablet 12/23/18 [Rx] Thiamine [Vitamin B-1] 100 mg PO BEDTIME #30 tab 12/23/18 [Rx] Ondansetron [Zofran ODT] 4 mg PO Q8H PRN #12 tab.dis 02/26/19 [Rx] LORazepam 1 mg PO Q4HR #6 tablet 03/12/19 [Rx] LORazepam [Ativan] 1 mg PO DAILY #18 tablet 04/01/19 [Rx] Magnesium 200 mg PO DAILY #30 tablet 04/01/19 [Rx] Ondansetron [Zofran ODT] 4 mg PO Q6H PRN #20 tab.dis 04/01/19 [Rx] Potassium Chloride 20 meq PO DAILY #30 tablet.er 04/01/19 [Rx] Past Medical History HEENT History: Reports: Impaired Vision Other HEENT History: wears glasses Cardiovascular History: Reports: High Cholesterol Respiratory History: Reports: Asthma Gastrointestinal History: Reports: GERD Genitourinary History: Reports: UTI, Recurrent 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 GOODS EXAMINER History: Reports: Other (See Below) Other GREY GOODS EXAMINER History: Patient states she started menopause at 54 yoa Neurological History: Reports: Headaches, Chronic Other Neuro History: headaches Psychiatric History: Reports: Addiction, Anxiety, Bipolar, Depression, Eating Disorders Other Psychiatric History: eaating disorder at age 14 Endocrine/Metabolic History: Reports: Osteoporosis Hematologic History: Reports: None Immunologic History: Reports: Other (See Below) Other Immunologic History: recurrent staph infections Oncologic (Cancer) History: Reports: None - Infectious Disease History Infectious Disease History: Reports: Chicken Pox - Past Surgical History Head Surgeries/Procedures: Reports: None HEENT Surgical History: Reports: Adenoidectomy, Oral Surgery, Tonsillectomy, Other (See Below) GI Surgical History: Reports: Appendectomy Musculoskeletal Surgical History: Reports: ORIF, Shoulder Surgery Dermatological Surgical History: Reports: Other (See Below) Social & Family History - Family History Family Medical History: Noncontributory Cardiac: Reports: None - Tobacco Use Smoking Status *Q: Never Smoker - Caffeine Use Caffeine Use: Reports: Soda Other Caffeine Use: Unknown if ever used due to being currently intoxicated. 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 ROS GENERAL - Review of Systems Review Of Systems: See Below Constitutional: Reports: No Symptoms HEENT: Reports: No Symptoms Respiratory: Reports: No Symptoms Cardiovascular: Reports: No Symptoms Endocrine: Reports: No Symptoms GI/Abdominal: Reports: Abdominal Pain, Nausea, Vomiting : Reports: No Symptoms Musculoskeletal: Reports: No Symptoms Neurological: Reports: Other (Shaking) ED EXAM, BEHAVIORAL HEALTH - Physical Exam Exam: See Below Exam Limited By: No Limitations General Appearance: Alert, No Apparent Distress Ears: Normal External Exam Nose: Normal Inspection Head: Atraumatic, Normocephalic Neck: Normal Inspection Respiratory/Chest: No Respiratory Distress, Lungs Clear, Normal Breath Sounds Cardiovascular: Regular Rate, Rhythm, No Edema, No Murmur GI/Abdominal: Soft, Non-Tender, No Organomegaly, No Mass Extremities: Other (Hands are shaking) COURSE, BEHAVIORAL HEALTH COMP - Course Vital Signs: Last Vital Signs Temp 98.0 F 04/01/19 08:11 Pulse 130 H 04/01/19 08:11 Resp 18 04/01/19 08:11 BP 153/97 H 04/01/19 08:11 Pulse Ox 98 04/01/19 08:11 Orders, Labs, Meds: Active Orders 24 hr Category Date Time Status Cardiac Monitoring [RC] . DIRECTED Care 04/01/19 08:26 Active Peripheral IV Care [RC] . DIRECTED Care 04/01/19 08:27 Active Potassium Chloride [KCl 10 MEQ in Water 100 ML] 10 meq Med 04/01/19 10:15 Active Premix Bag 1 bag IV Q1H Sodium Chloride 0.9% [Normal Saline] 1,000 ml Med 04/01/19 08:30 Active IV .BOLUS Sodium Chloride 0.9% [Normal Saline] 1,000 ml Med 04/01/19 10:32 Active IV ONETIME Sodium Chloride 0.9% [Saline Flush] Med 04/01/19 08:26 Active 10 ml FLUSH ASDIRECTED PRN ED Antiemetic Medication Reflex [OM.PC] Stat Oth 04/01/19 08:27 Ordered Peripheral IV Insertion Adult [OM.PC] Stat Oth 04/01/19 08:26 Ordered Medication Orders Sodium Chloride (Normal Saline) 1,000 mls @ 1,000 mls/hr IV .BOLUS STEPHANE Last Admin: 04/01/19 08:57 Dose: 1,000 mls/hr Potassium Chloride 10 meq/ (Premix) 100 mls @ 100 mls/hr IV Q1H STEPHANE Stop: 04/01/19 12:14 Last Admin: 04/01/19 10:22 Dose: 100 mls/hr Sodium Chloride (Normal Saline) 1,000 mls @ 1,000 mls/hr IV ONETIME ONE Stop: 04/01/19 11:31 Last Admin: 04/01/19 10:37 Dose: 1,000 mls/hr Sodium Chloride (Saline Flush) 10 ml FLUSH ASDIRECTED PRN PRN Reason: Keep Vein Open Last Admin: 04/01/19 08:56 Dose: 10 ml Laboratory Tests 04/01/19 04/01/19 04/01/19 Range/Units 09:20 09:20 10:10 WBC 11.77 H (3.98-10.04) K/mm3 RBC 3.75 L (3.98-5.22) M/mm3 Hgb 11.3 D (11.2-15.7) gm/dl Hct 35.6 (34.1-44.9) % MCV 94.9 H (79.4-94.8) fl MCH 30.1 (25.6-32.2) pg MCHC 31.7 L (32.2-35.5) g/dl RDW Std Deviation 52.3 H (36.4-46.3) fL Plt Count 234 (182-369) K/mm3 MPV 8.9 L (9.4-12.3) fl Neut % (Auto) 85.9 H (34.0-71.1) % Lymph % (Auto) 7.8 L (19.3-51.7) % Dundy % (Auto) 5.7 (4.7-12.5) % Eos % (Auto) 0.1 L (0.7-5.8) Baso % (Auto) 0.2 (0.1-1.2) % Neut # (Auto) 10.12 H (1.56-6.13) K/mm3 Lymph # (Auto) 0.92 L (1.18-3.74) K/mm3 Dundy # (Auto) 0.67 H (0.24-0.36) K/mm3 Eos # (Auto) 0.01 L (0.04-0.36) K/mm3 Baso # (Auto) 0.02 (0.01-0.08) K/mm3 Manual Slide Review Normal smear Sodium 141 (136-145) mEq/L Potassium 2.6 L (3.5-5.1) mEq/L Chloride 98 (98-107) mEq/L Carbon Dioxide 26 (21-32) mEq/L Anion Gap 19.6 H (5-15) BUN 11 (7-18) mg/dL Creatinine 0.6 (0.55-1.02) mg/dL Est Cr Clr Drug Dosing 76.15 mL/min Estimated GFR (MDRD) > 60 (>60) mL/min BUN/Creatinine Ratio 18.3 H (14-18) Glucose 90 (80-115) mg/dL Calcium 8.0 L (8.5-10.1) mg/dL Magnesium 1.4 L (1.8-2.4) mg/dl Total Bilirubin 1.0 (0.2-1.0) mg/dL AST 35 (15-37) U/L ALT 33 (14-59) U/L Alkaline Phosphatase 96 (46-116) U/L Total Protein 6.0 L (6.4-8.2) g/dl Albumin 3.3 L (3.4-5.0) g/dl Globulin 2.7 gm/dL Albumin/Globulin Ratio 1.2 (1-2) Urine Opiates Screen Negative (KLBFJX=188) Ur Buprenorphine Scrn Negative (CUTOFF=10) Ur Oxycodone Screen Negative (KSK0MH=897) Urine Methadone Screen Negative (OWVENE=595) Ur Propoxyphene Screen Negative (BSSVJH=234) Ur Barbiturates Screen Negative (YQKXKQ=165) Ur Tricyclics Screen Negative (EBKNFV=068) Ur Phencyclidine Scrn Negative (CUTOFF=25) Ur Amphetamine Screen Negative (AJELAX=677) U Methamphetamines Scrn Negative (WCCSYR=724) U Benzodiazepines Scrn Negative (NUHJUE=191) U Cocaine Metab Screen Negative (ZCXXFB=515) U Marijuana (THC) Screen Negative (CUTOFF=50) Ethyl Alcohol 0.12 (0.00) gm% Medications Generic Name Dose Route Start Last Admin Trade Name Freq PRN Reason Stop Dose Admin Sodium Chloride 1,000 mls @ 1,000 mls/hr 04/01/19 08:30 04/01/19 08:57 Normal Saline IV 1,000 mls/hr .BOLUS STEPHANE Administration Potassium Chloride 10 meq/ 100 mls @ 100 mls/hr 04/01/19 10:15 04/01/19 10:22 Premix IV 04/01/19 12:14 100 mls/hr Q1H STEPHANE Administration Sodium Chloride 1,000 mls @ 1,000 mls/hr 04/01/19 10:32 04/01/19 10:37 Normal Saline IV 04/01/19 11:31 1,000 mls/hr ONETIME ONE Administration Sodium Chloride 10 ml 04/01/19 08:26 04/01/19 08:56 Saline Flush FLUSH 10 ml ASDIRECTED PRN Administration Keep Vein Open Discontinued Medications Generic Name Dose Route Start Last Admin Trade Name Herreraq PRN Reason Stop Dose Admin Potassium Chloride 10 meq/ 100 mls @ 100 mls/hr 04/01/19 10:15 04/01/19 10:23 Premix IV 04/01/19 12:14 Not Given Q1H STEPHANE Lorazepam 1 mg 04/01/19 08:28 04/01/19 08:56 Ativan IVPUSH 04/01/19 08:29 1 mg ONETIME ONE Administration Lorazepam 1 mg 04/01/19 09:34 04/01/19 09:38 Ativan IVPUSH 04/01/19 09:35 1 mg ONETIME ONE Administration Lorazepam 0.5 mg 04/01/19 10:32 04/01/19 10:37 Ativan IVPUSH 04/01/19 10:33 0.5 mg ONETIME ONE Administration Ondansetron HCl 4 mg 04/01/19 08:26 04/01/19 08:55 Zofran IVPUSH 04/01/19 08:27 4 mg ONETIME ONE Administration Re-Assessment/Re-Exam: I ordered an IV NS 1L bolus, zofran 4mg IV, ativan 1mg IV, and labs. Her WBC was elevated at 11.77. Her K was low at 2.6. I have ordered 20meq of KCl IV. Her anion gap was elevated at 19.6. I have ordered another liter of NS. Her magnesium is low. I will get her on some magnesium. Her UDS is negative. Her ETOH is 0.12. [facility] was consulted and they have a crisis bed. I will get her on some ativan, zofran, magnesium and potassium. Departure - Departure Time of Disposition: 11:25 Disposition: Home, Self-Care 01 Condition: Good Clinical Impression: Alcohol abuse, Alcoholism /alcohol abuse, Hypomagnesemia, Hypokalemia - Discharge Information *PRESCRIPTION DRUG MONITORING PROGRAM REVIEWED*: Not Applicable *COPY OF PRESCRIPTION DRUG MONITORING REPORT IN PATIENT ANTHONY: Not Applicable Prescriptions: LORazepam [Ativan] 1 mg PO DAILY #18 tablet Magnesium 200 mg PO DAILY #30 tablet Ondansetron [Zofran ODT] 4 mg PO Q6H PRN #20 tab.dis PRN Reason: Nausea\vomiting Potassium Chloride 20 meq PO DAILY #30 tablet.er Referrals: Renard Verduzco MD [Primary Care Provider] - 1 Week Additional Instructions: Take the ativan 1mg 3 times per day for 3 days, then 1mg 2 times per day for 2 days, and then 1 pill at night for 3 days. Take the zofran every 6 hours as needed for nausea and vomiting. Take the magnesium and potassium daily. Please return if you are worse. Go to [facility] Crisis Bed. Sepsis Event Note - Evaluation Sepsis Screening Result: No Definite Risk - Focused Exam Vital Signs: Vital Signs Temp Pulse Resp BP Pulse Ox 04/01/19 08:11 98.0 F 130 H 18 153/97 H 98 Date Exam was Performed: 04/01/19 Time Exam was Performed: 11:24 - My Orders Last 24 Hours: My Active Orders 04/01/19 08:26 Cardiac Monitoring [RC] . DIRECTED Sodium Chloride 0.9% [Saline Flush] 10 ml FLUSH ASDIRECTED PRN Peripheral IV Insertion Adult [OM.PC] Stat 04/01/19 08:27 Peripheral IV Care [RC] . DIRECTED ED Antiemetic Medication Reflex [OM.PC] Stat 04/01/19 08:30 Sodium Chloride 0.9% [Normal Saline] 1,000 ml IV .BOLUS 04/01/19 10:15 Potassium Chloride [KCl 10 MEQ in Water 100 ML] 10 meq Premix Bag 1 bag IV Q1H 04/01/19 10:32 Sodium Chloride 0.9% [Normal Saline] 1,000 ml IV ONETIME - Assessment/Plan Last 24 Hours: My Active Orders 04/01/19 08:26 Cardiac Monitoring [RC] . DIRECTED Sodium Chloride 0.9% [Saline Flush] 10 ml FLUSH ASDIRECTED PRN Peripheral IV Insertion Adult [OM.PC] Stat 04/01/19 08:27 Peripheral IV Care [RC] . DIRECTED ED Antiemetic Medication Reflex [OM.PC] Stat 04/01/19 08:30 Sodium Chloride 0.9% [Normal Saline] 1,000 ml IV .BOLUS 04/01/19 10:15 Potassium Chloride [KCl 10 MEQ in Water 100 ML] 10 meq Premix Bag 1 bag IV Q1H 04/01/19 10:32 Sodium Chloride 0.9% [Normal Saline] 1,000 ml IV ONETIME
[2019-04-01] MEDS ORDERED: Potassium Chloride 10 MEQ in Premix Bag 1 BAG IV SCH (10:15)
[2019-04-01] MEDS: Potassium Chloride 10 MEQ in Premix Bag 1 BAG IV SCH ×2 (10:22→11:28)
[2019-04-01] MEDS ORDERED: Sodium Chloride 0.9% 1,000 ML IV ONE (10:32)
== END 2019-04-01 13:06 | disposition home or self-care (01) ==
LOC: JD.ED 08:00
DX: F10.20 Alcohol dependence, uncomplicated (principal); E83.42 Hypomagnesemia; E87.6 Hypokalemia; E78.00 Pure hypercholesterolemia, unspecified; J45.909 Unspecified asthma, uncomplicated; K21.9 Gastro-esophageal reflux disease without esophagitis; F41.9 Anxiety disorder, unspecified; F31.9 Bipolar disorder, unspecified; Y90.6 Blood alcohol level of 120-199 mg/100 ml; Z88.1 Allergy status to other antibiotic agents; Z88.5 Allergy status to narcotic agent; Z88.8 Allergy status to other drugs, medicaments and biological substances; Z79.899 Other long term (current) drug therapy; Z79.51 Long term (current) use of inhaled steroids
CPT/HCPCS: 36415; 80053; 80306; 80320; 83735; 85025; 96361; 96365; 96366; 96375; 96376; 99284; J2060; J2405; J3480; J7030; G0480

== ENCOUNTER 2019-04-01 16:05 | Emergency (ER) | payer BC ==
[2019-04-01 16:28] VITALS: BP 150/88; PULSE 123
[2019-04-01] MEDS ORDERED: LORazepam 1 MG Tab PO ONE (16:53)
[2019-04-01] MEDS ORDERED: Ondansetron 4 MG Tab.DIS PO ONE (16:53)
--- NOTE | 2019-04-01 17:28 | EDM.PDOC ---
ED HPI GENERAL MEDICAL PROBLEM - General Chief Complaint: Fever Stated Complaint: FEVER Time Seen by Provider: 04/01/19 16:26 Source of Information: Reports: Patient, Family, Provider History Limitations: Reports: No Limitations - History of Present Illness INITIAL COMMENTS - FREE TEXT/NARRATIVE: The patient presents from the crisis bed for a fever. They checked her temp twice and it was 103 and 101. When she arrived here, her temp was normal at 99. She has no cough, congestion, runny nose, sore throat, ear pain, abdominal pain, or dysuria. She looks better then when she left earlier today. She is on ativan and zofran. Onset: Gradual Duration: Hour(s): Severity: Moderate Improves with: Reports: None Worsens with: Reports: None Associated Symptoms: Reports: Fever/Chills, Nausea/Vomiting. Denies: Chest Pain , Cough, Headaches, Shortness of Breath Headache Pain Score (Numeric/FACES): 3 - Related Data Allergies Allergy/AdvReac Type Severity Reaction Status Date / Time levofloxacin [From Levaquin] Allergy Rash Verified 04/01/19 16:28 propoxyphene napsylate AdvReac Headache Verified 04/01/19 16:28 [From Darvocet-N] quetiapine fumarate AdvReac Confusion Verified 04/01/19 16:28 [From Seroquel] Home Meds: Home Meds Fluticasone/Salmeterol [Advair 250-50 Diskus] 1 puff IH DAILY 05/24/16 [History] atorvaSTATin [Lipitor] 20 mg PO DAILY 05/24/16 [History] Albuterol Sulfate [Albuterol Sulfate Hfa] 2 puff PO Q4HR PRN 12/22/18 [History] DULoxetine [Cymbalta] 30 mg PO DAILY 12/22/18 [History] Losartan [Cozaar] 25 mg PO DAILY 12/22/18 [History] Omeprazole 20 mg PO ACBREAKFAST 12/22/18 [History] Potassium Chloride 20 meq PO DAILY 12/22/18 [History] Sucralfate [Carafate] 1 gm PO QID 12/22/18 [History] Folic Acid 1 mg PO DAILY #30 tablet 12/23/18 [Rx] Naltrexone 50 mg PO DAILY #30 tablet 10/29/19 [Rx] Thiamine [Vitamin B-1] 100 mg PO BEDTIME #30 tab 12/23/18 [Rx] Cranberry Fruit Extract [Cranberry] 0 mg PO DAILY 04/01/19 [History] LORazepam [Ativan] 1 mg PO TID 04/01/19 [History] Lutein/Minerals/Vit A,C & E [Ocuvite] 1 tab PO DAILY 04/01/19 [History] Magnesium 200 mg PO DAILY #30 tablet 04/01/19 [Rx] Montelukast [Singulair] 10 mg PO BEDTIME 04/01/19 [History] Ondansetron [Zofran ODT] 4 mg PO Q6H PRN #20 tab.dis 04/01/19 [Rx] Past Medical History HEENT History: Reports: Impaired Vision Other HEENT History: wears glasses Cardiovascular History: Reports: High Cholesterol Respiratory History: Reports: Asthma Gastrointestinal History: Reports: GERD Genitourinary History: Reports: UTI, Recurrent CASINO HOST History: Reports: Other (See Below) Other CASINO HOST History: Patient states she started menopause at 54 yoa Neurological History: Reports: Headaches, Chronic Other Neuro History: headaches Psychiatric History: Reports: Addiction, Anxiety, Bipolar, Depression, Eating Disorders Other Psychiatric History: eaating disorder at age 14 Endocrine/Metabolic History: Reports: Osteoporosis Hematologic History: Reports: None Immunologic History: Reports: Other (See Below) Other Immunologic History: recurrent staph infections Oncologic (Cancer) History: Reports: None - Infectious Disease History Infectious Disease History: Reports: Chicken Pox - Past Surgical History Head Surgeries/Procedures: Reports: None HEENT Surgical History: Reports: Adenoidectomy, Oral Surgery, Tonsillectomy, Other (See Below) GI Surgical History: Reports: Appendectomy Musculoskeletal Surgical History: Reports: ORIF, Shoulder Surgery Dermatological Surgical History: Reports: Other (See Below) Social & Family History - Family History Family Medical History: Noncontributory Cardiac: Reports: None - Tobacco Use Smoking Status *Q: Never Smoker Second Hand Smoke Exposure: No - Caffeine Use Caffeine Use: Reports: Soda Other Caffeine Use: Unknown if ever used due to being currently intoxicated. 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 Denies: Abdominal Pain : Reports: No Symptoms Musculoskeletal: Reports: No Symptoms Skin: Reports: No Symptoms ED EXAM, SEPSIS - Physical Exam Exam: See Below Exam Limited By: No Limitations General Appearance: Alert, No Apparent Distress Ears: Normal External Exam Nose: Normal Inspection Head: Atraumatic, Normocephalic Neck: Normal Inspection Respiratory/Chest: No Respiratory Distress, Lungs Clear, Normal Breath Sounds Cardiovascular: Regular Rate, Rhythm, No Edema, No Murmur GI/Abdominal Exam: Soft, Non-Tender, No Organomegaly, No Mass Back: Normal Inspection Extremities: Normal Inspection Neurological: Alert, Oriented, No Motor/Sensory Deficits Course - Vital Signs Last Recorded V/S: Last Vital Signs Temp 98.8 F 04/01/19 16:25 Pulse 123 H 04/01/19 16:25 Resp 19 04/01/19 16:25 BP 150/88 H 04/01/19 16:25 Pulse Ox 98 04/01/19 16:25 - Orders/Labs/Meds Orders: Active Orders 24 hr Category Date Time Status UA W/MICROSCOPIC [URIN] Stat Lab 04/01/19 10:10 Results Labs: Laboratory Tests 04/01/19 Range/Units 10:10 Urine Color Yellow (Yellow) Urine Appearance Clear (Clear) Urine pH 7.0 (5.0-8.0) Ur Specific Belcher 1.020 (1.005-1.030) Urine Protein Trace H (Negative) Urine Glucose (UA) Negative (Negative) Urine Ketones Trace H (Negative) Urine Occult Blood Negative (Negative) Urine Nitrite Negative (Negative) Urine Bilirubin Negative (Negative) Urine Urobilinogen 0.2 (0.2-1.0) Ur Leukocyte Esterase Negative (Negative) Meds: Medications Discontinued Medications Generic Name Dose Route Start Last Admin Trade Name Freq PRN Reason Stop Dose Admin Loperamide HCl 2 mg 04/01/19 17:35 04/01/19 17:43 Imodium PO 04/01/19 17:36 2 mg ONETIME ONE Administration Lorazepam 1 mg 04/01/19 16:53 04/01/19 17:02 Ativan PO 04/01/19 16:54 1 mg ONETIME ONE Administration Ondansetron HCl 4 mg 04/01/19 16:53 04/01/19 17:03 Zofran Odt PO 04/01/19 16:54 4 mg ONETIME ONE Administration - Re-Assessments/Exams Free Text/Narrative Re-Assessment/Exam: 04/01/19 17:27 I ordered ativan 1mg PO, zofran 4mg ODT PO, influenza and UA. 04/01/19 17:28 Her UA was negative. I am waiting for the influenza. 04/01/19 17:45 He influenza is negative. I gave her something for the diarrhea she is having. I will discharge her home. Departure - Departure Time of Disposition: 17:50 Disposition: Home, Self-Care 01 Condition: Good Clinical Impression: Alcoholism /alcohol abuse Alcohol withdrawal syndrome Qualifiers: Complication of substance-induced condition: uncomplicated Qualified Code(s): F10.230 - Alcohol dependence with withdrawal, uncomplicated - Discharge Information *PRESCRIPTION DRUG MONITORING PROGRAM REVIEWED*: Not Applicable *COPY OF PRESCRIPTION DRUG MONITORING REPORT IN PATIENT ANTHONY: Not Applicable Referrals: Renard Verduzco MD [Primary Care Provider] - Forms: ED Department Discharge Additional Instructions: Take your medication as prescribed. Please return if you are worse. Sepsis Event Note - Evaluation Sepsis Screening Result: No Definite Risk - Focused Exam Vital Signs: Vital Signs Temp Pulse Resp BP Pulse Ox 04/01/19 16:25 98.8 F 123 H 19 150/88 H 98 Date Exam was Performed: 04/01/19 Time Exam was Performed: 17:45 - My Orders Last 24 Hours: My Active Orders 04/01/19 10:10 UA W/MICROSCOPIC [URIN] Stat - Assessment/Plan Last 24 Hours: My Active Orders 04/01/19 10:10 UA W/MICROSCOPIC [URIN] Stat
[2019-04-01] MEDS ORDERED: Loperamide 2 MG Cap PO ONE (17:35)
== END 2019-04-01 17:55 | disposition home or self-care (01) ==
LOC: JD.ED 16:05
DX: F10.230 Alcohol dependence with withdrawal, uncomplicated (principal); J45.909 Unspecified asthma, uncomplicated; K21.9 Gastro-esophageal reflux disease without esophagitis; F41.9 Anxiety disorder, unspecified; F32.9 Major depressive disorder, single episode, unspecified; E78.00 Pure hypercholesterolemia, unspecified; Z88.6 Allergy status to analgesic agent; Z88.8 Allergy status to other drugs, medicaments and biological substances; Z79.51 Long term (current) use of inhaled steroids; Z79.899 Other long term (current) drug therapy
CPT/HCPCS: 81001; 87804; 99284; A9270; 99285

== ENCOUNTER 2019-06-19 17:45 | Emergency (ER) | payer BC ==
[2019-06-19] MEDS ORDERED: Sodium Chloride 0.9% 1,000 ML IV ONE (17:58)
[2019-06-19] MEDS ORDERED: Folic Acid 1 MG Tab PO ONE (17:58)
[2019-06-19] MEDS ORDERED: Thiamine 100 MG Tab PO ONE (17:58)
[2019-06-19] MEDS ORDERED: Sodium Chloride 0.9% 10 ML Syringe FLUSH PRN (17:58)
[2019-06-19] MEDS ORDERED: Metoclopramide 10 MG/2 ML SDV IVPUSH ONE (17:58)
--- NOTE | 2019-06-19 18:15 | EDM.PDOC ---
ED HPI GENERAL MEDICAL PROBLEM - General Chief Complaint: Drug or Alcohol Abuse Stated Complaint: [facility] Time Seen by Provider: 06/19/19 17:56 Source of Information: Reports: Patient, Old Records, RN Notes Reviewed History Limitations: Reports: No Limitations - History of Present Illness INITIAL COMMENTS - FREE TEXT/NARRATIVE: Patient is a 63-year-old female who is brought into the ER today by [facility] for alcohol intoxication. The patient's 92-year-old mother called the ambulance to have her daughter brought to the hospital. This is an ongoing struggle between her mother and her, the mother frequently gets involved and cause ambulance to have her daughter brought here for her alcohol intoxication. EMS reports that the patient was intoxicated and could not get up off of the floor, EMS personnel was able to get her up, but she was staggering heavily, and could barely walk by herself. Patient does have a small dog, and EMS noted some fecal matter around the apartment. Patient states that she only drinks for small travel sized bottles of vodka this morning at 10 AM. She states she is a "light weight". Patient is very well- known to this ER for her alcohol abuse. She has enjoyed moments of sobriety, but these have been short-lived. Patient denies any other sick-like symptoms, no fever/chills, cough/shortness of breath, chest pain, nausea/vomiting/ diarrhea. She further denies any drug use. Patient states that she had a doctor's appointment yesterday with Dr. Verduzco, and had some labs done, but she has not heard about those values yet. She states that the appointment went well. - Related Data Allergies Allergy/AdvReac Type Severity Reaction Status Date / Time levofloxacin [From Levaquin] Allergy Rash Verified 06/19/19 17:56 propoxyphene napsylate AdvReac Headache Verified 06/19/19 17:56 [From Darvocet-N] quetiapine fumarate AdvReac Confusion Verified 06/19/19 17:56 [From Seroquel] Home Meds: Home Meds Fluticasone Propion/Salmeterol [Advair 250-50 Diskus] 1 puff IH DAILY 05/24/16 [ History] atorvaSTATin [Lipitor] 20 mg PO DAILY 05/24/16 [History] Albuterol Sulfate [Albuterol Sulfate Hfa] 2 puff PO Q4HR PRN 12/22/18 [History] DULoxetine [Cymbalta] 30 mg PO DAILY 12/22/18 [History] Losartan [Cozaar] 25 mg PO DAILY 12/22/18 [History] Omeprazole 20 mg PO ACBREAKFAST 12/22/18 [History] Potassium Chloride 20 meq PO DAILY 12/22/18 [History] Sucralfate [Carafate] 1 gm PO QID 12/22/18 [History] Folic Acid 1 mg PO DAILY #30 tablet 12/23/18 [Rx] Naltrexone 50 mg PO DAILY #30 tablet 12/23/18 [Rx] Thiamine [Vitamin B-1] 100 mg PO BEDTIME #30 tab 12/23/18 [Rx] Cranberry Fruit Extract [Cranberry] 0 mg PO DAILY 04/01/19 [History] LORazepam [Ativan] 1 mg PO TID 04/01/19 [History] Lutein/Minerals/Vit A,C & E [Ocuvite] 1 tab PO DAILY 04/01/19 [History] Magnesium 200 mg PO DAILY #30 tablet 04/01/19 [Rx] Montelukast [Singulair] 10 mg PO BEDTIME 04/01/19 [History] Ondansetron [Zofran ODT] 4 mg PO Q6H PRN #20 tab.dis 04/01/19 [Rx] Past Medical History HEENT History: Reports: Impaired Vision Other HEENT History: wears glasses Cardiovascular History: Reports: High Cholesterol Respiratory History: Reports: Asthma Gastrointestinal History: Reports: GERD Genitourinary History: Reports: UTI, Recurrent DROSSER History: Reports: Other (See Below) Other DROSSER History: Patient states she started menopause at 54 yoa Neurological History: Reports: Headaches, Chronic Psychiatric History: Reports: Addiction, Anxiety, Bipolar, Depression, Eating Disorders Other Psychiatric History: eating disorder at age 14 Endocrine/Metabolic History: Reports: Osteoporosis Immunologic History: Reports: Other (See Below) Other Immunologic History: recurrent staph infections - Infectious Disease History Infectious Disease History: Reports: Chicken Pox - Past Surgical History HEENT Surgical History: Reports: Adenoidectomy, Oral Surgery, Tonsillectomy, Other (See Below) GI Surgical History: Reports: Appendectomy Musculoskeletal Surgical History: Reports: ORIF, Shoulder Surgery Social & Family History - Family History Family Medical History: Noncontributory Cardiac: Reports: None - Caffeine Use Caffeine Use: Reports: Soda Other Caffeine Use: Unknown if ever used due to being currently intoxicated. 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 ED EXAM, GENERAL - Physical Exam Exam: See Below Exam Limited By: No Limitations General Appearance: Alert, WD/WN, No Apparent Distress (Patient is obviously intoxicated but does answer questions and follows commands appropriately.) Eye Exam: Bilateral Eye: EOMI, Normal Inspection Ears: Normal External Exam Nose: Normal Inspection Throat/Mouth: Normal Inspection, Normal Lips, Normal Teeth, Normal Gums, Normal Oropharynx, Normal Voice, No Airway Compromise Head: Atraumatic, Normocephalic Neck: Normal Inspection Respiratory/Chest: No Respiratory Distress, Lungs Clear, Normal Breath Sounds, No Accessory Muscle Use, Chest Non-Tender Cardiovascular: Normal Peripheral Pulses, Regular Rate, Rhythm, No Murmur Peripheral Pulses: 3+: Radial (L), Radial (R) GI/Abdominal: Normal Bowel Sounds, Soft, Non-Tender, No Distention, No Mass Extremities: Normal Inspection, Normal Capillary Refill Neurological: Alert, Oriented, Normal Cognition, No Motor/Sensory Deficits Psychiatric: Normal Affect, Normal Mood Skin Exam: Warm, Dry, Intact, Normal Color, No Rash Course - Vital Signs Last Recorded V/S: Last Vital Signs Temp 97.7 F 06/19/19 17:49 Pulse 103 H 06/19/19 17:49 Resp 16 06/19/19 17:49 BP 161/85 H 06/19/19 17:49 Pulse Ox 96 06/19/19 17:49 - Orders/Labs/Meds Orders: Active Orders 24 hr Category Date Time Status Peripheral IV Care [RC] . DIRECTED Care 06/19/19 17:58 Ordered Sodium Chloride 0.9% [Saline Flush] Med 06/19/19 17:58 Ordered 10 ml FLUSH ASDIRECTED PRN Peripheral IV Insertion Adult [OM.PC] Stat Oth 06/19/19 17:58 Ordered Medication Orders Sodium Chloride (Saline Flush) 10 ml FLUSH ASDIRECTED PRN PRN Reason: Keep Vein Open Labs: Laboratory Tests 06/19/19 06/19/19 06/19/19 Range/Units 19:00 19:00 19:00 WBC 6.51 (3.98-10.04) K/mm3 RBC 3.82 L (3.98-5.22) M/mm3 Hgb 10.2 L (11.2-15.7) gm/dl Hct 34.9 (34.1-44.9) % MCV 91.4 D (79.4-94.8) fl MCH 26.7 (25.6-32.2) pg MCHC 29.2 L (32.2-35.5) g/dl RDW Std Deviation 54.0 H (36.4-46.3) fL Plt Count 397 H D (182-369) K/mm3 MPV 8.8 L (9.4-12.3) fl Neut % (Auto) 54.0 (34.0-71.1) % Lymph % (Auto) 39.2 (19.3-51.7) % [place] % (Auto) 5.8 (4.7-12.5) % Eos % (Auto) 0.3 L (0.7-5.8) Baso % (Auto) 0.5 (0.1-1.2) % Neut # (Auto) 3.52 (1.56-6.13) K/mm3 Lymph # (Auto) 2.55 (1.18-3.74) K/mm3 [place] # (Auto) 0.38 H (0.24-0.36) K/mm3 Eos # (Auto) 0.02 L (0.04-0.36) K/mm3 Baso # (Auto) 0.03 (0.01-0.08) K/mm3 Manual Slide Review Abnormal smear PT 10.9 (9.7-12.0) SECONDS INR 1.00 Sodium 149 H (136-145) mEq/L Potassium 3.7 (3.5-5.1) mEq/L Chloride 109 H (98-107) mEq/L Carbon Dioxide 28 (21-32) mEq/L Anion Gap 15.7 H (5-15) BUN 7 (7-18) mg/dL Creatinine 0.7 (0.55-1.02) mg/dL Est Cr Clr Drug Dosing 66.48 mL/min Estimated GFR (MDRD) > 60 (>60) mL/min BUN/Creatinine Ratio 10.0 L (14-18) Glucose 95 (80-115) mg/dL Calcium 8.0 L (8.5-10.1) mg/dL Magnesium 1.8 (1.8-2.4) mg/dl Total Bilirubin 0.2 (0.2-1.0) mg/dL AST 47 H (15-37) U/L ALT 29 (14-59) U/L Alkaline Phosphatase 107 (46-116) U/L Total Protein 6.3 L (6.4-8.2) g/dl Albumin 3.2 L (3.4-5.0) g/dl Globulin 3.1 gm/dL Albumin/Globulin Ratio 1.0 (1-2) Ethyl Alcohol 0.32 (0.00) gm% Meds: Medications Generic Name Dose Route Start Last Admin Trade Name Freq PRN Reason Stop Dose Admin Sodium Chloride 10 ml 06/19/19 17:58 Saline Flush FLUSH ASDIRECTED PRN Keep Vein Open Discontinued Medications Generic Name Dose Route Start Last Admin Trade Name Freq PRN Reason Stop Dose Admin Folic Acid 1 mg 06/19/19 17:58 Folic Acid PO 06/19/19 17:59 ONETIME ONE Sodium Chloride 1,000 mls @ 999 mls/hr 06/19/19 17:58 Normal Saline IV 06/19/19 18:58 ONETIME ONE Metoclopramide HCl 10 mg 06/19/19 17:58 Reglan IVPUSH 06/19/19 17:59 ONETIME ONE Thiamine HCl 100 mg 06/19/19 17:58 Vitamin B-1 PO 06/19/19 17:59 ONETIME ONE - Re-Assessments/Exams Free Text/Narrative Re-Assessment/Exam: 06/19/19 18:14 Patient presents to the ED for her alcohol intoxication, on the initial ambulance called the patient was refusing to come to the hospital for evaluation , but EMS staff talked her into coming. Patient states that she would like to get back home to her dog. We will get some basic labs, give her some IV fluids , and likely discharge her home when she is a little more sober. 06/19/19 19:52 Patient was ambulated in the hallway, and she can walk a straight line with little deviation, nursing staff was unable to get an IV for IV fluids, but the patient has drank at least 220 ounce glasses of water while being in the ER. At this time the patient would like to be discharged home, I cannot see why she should not be discharged at this time. I did tell her to try to refrain from drinking overnight and try to get some fluids like Gatorade and water, she understands. Departure - Departure Time of Disposition: 19:53 Disposition: Home, Self-Care 01 Condition: Good Clinical Impression: Alcohol intoxication Qualifiers: Complication of substance-induced condition: uncomplicated Qualified Code(s): F10.920 - Alcohol use, unspecified with intoxication, uncomplicated - Discharge Information *PRESCRIPTION DRUG MONITORING PROGRAM REVIEWED*: No *COPY OF PRESCRIPTION DRUG MONITORING REPORT IN PATIENT ANTHONY: No Instructions: Alcohol Intoxication, [id number] Referrals: PCP,Unknown [Primary Care Provider] - Additional Instructions: You have been evaluated in the ER for your acute alcohol intoxication. You did have some labs taken, and your blood alcohol content was 0.32, at this time this is 4 times the legal limit to drive, you will need to have someone take you home, and highly and strongly recommend that you refrain from further alcohol intake tonight, try to get some fluids like Powerade or Gatorade and/or water, to further bring that blood alcohol level down. Recommend that you call [facility] services, if you feel you need help from quitting alcohol. Their telephone number [phone], their emergency crisis number is [phone]. As always please return to the ER at any time if symptoms change or worsen. Sepsis Event Note - Evaluation Sepsis Screening Result: No Definite Risk - Focused Exam Vital Signs: Vital Signs Temp Pulse Resp BP Pulse Ox 06/19/19 17:49 97.7 F 103 H 16 161/85 H 96 Date Exam was Performed: 06/19/19 Time Exam was Performed: 19:52 - My Orders Last 24 Hours: My Active Orders 06/19/19 17:58 Peripheral IV Care [RC] . DIRECTED Sodium Chloride 0.9% [Saline Flush] 10 ml FLUSH ASDIRECTED PRN Peripheral IV Insertion Adult [OM.PC] Stat - Assessment/Plan Last 24 Hours: My Active Orders 06/19/19 17:58 Peripheral IV Care [RC] . DIRECTED Sodium Chloride 0.9% [Saline Flush] 10 ml FLUSH ASDIRECTED PRN Peripheral IV Insertion Adult [OM.PC] Stat
[2019-06-19 20:10] VITALS: BP 142/96; PULSE 102
== END 2019-06-19 20:05 | disposition home or self-care (01) ==
LOC: JD.ED 17:45
DX: F10.129 Alcohol abuse with intoxication, unspecified (principal); E78.00 Pure hypercholesterolemia, unspecified; J45.909 Unspecified asthma, uncomplicated; K21.9 Gastro-esophageal reflux disease without esophagitis; F31.9 Bipolar disorder, unspecified; F41.9 Anxiety disorder, unspecified; Z79.899 Other long term (current) drug therapy; Z88.1 Allergy status to other antibiotic agents; Z88.8 Allergy status to other drugs, medicaments and biological substances
CPT/HCPCS: 36415; 80053; 80307; 83735; 85025; 85610; 99284

== ENCOUNTER 2019-07-11 03:31 | Inpatient (IN) | payer BC ==
--- NOTE | 2019-07-11 03:59 | EDM.PDOCBH ---
ED HPI GENERAL MEDICAL PROBLEM - General Chief Complaint: Drug or Alcohol Abuse Stated Complaint: [facility] Time Seen by Provider: 07/11/19 03:40 Source of Information: Reports: Patient History Limitations: Reports: No Limitations - History of Present Illness INITIAL COMMENTS - FREE TEXT/NARRATIVE: This is a 63-year-old female. She has been binge drinking for the last 10 days she thinks though she has not absolutely certain. She was doing vodka sugars today not sure how many or when she actually stopped but she thinks she stopped maybe 5 or 6 hours ago. She began to become afraid about being at home alone so she called the ambulance and comes to the ER. She obviously has been crawling on her knees and ankles since they are bruised and skinned up. She says she crawls around on the floor because she is afraid to stand up since she might fall and break a bone. She is been a alcoholic since the age of 47 though she says for about 8 years she was sober and then she went back to drinking again. She denies any cough or congestion she denies any fever or chills. She has no nausea and she has not been vomiting. Complain of a dry mouth. Generalized Pain Score (Numeric/FACES): 3 - Related Data Allergies Allergy/AdvReac Type Severity Reaction Status Date / Time levofloxacin [From Levaquin] Allergy Rash Verified 07/11/19 03:37 propoxyphene napsylate AdvReac Headache Verified 07/11/19 03:37 [From Darvocet-N] quetiapine fumarate AdvReac Confusion Verified 07/11/19 03:37 [From Seroquel] Home Meds: Home Meds Fluticasone Propion/Salmeterol [Advair 250-50 Diskus] 1 puff IH DAILY 05/24/16 [ History] atorvaSTATin [Lipitor] 20 mg PO DAILY 05/24/16 [History] Albuterol Sulfate [Albuterol Sulfate Hfa] 2 puff PO Q4HR PRN 12/22/18 [History] DULoxetine [Cymbalta] 30 mg PO DAILY 12/22/18 [History] Losartan [Cozaar] 12.5 mg PO DAILY 12/22/18 [History] Omeprazole 20 mg PO ACBREAKFAST 12/22/18 [History] Potassium Chloride 20 meq PO DAILY 12/22/18 [History] Sucralfate [Carafate] 1 gm PO QID 12/22/18 [History] Folic Acid 1 mg PO DAILY #30 tablet 12/23/18 [Rx] Naltrexone 50 mg PO DAILY #30 tablet 12/23/18 [Rx] Thiamine [Vitamin B-1] 100 mg PO BEDTIME #30 tab 12/23/18 [Rx] Cranberry Fruit Extract [Cranberry] 0 mg PO DAILY 04/01/19 [History] Lutein/Minerals/Vit A,C & E [Ocuvite] 1 tab PO DAILY 04/01/19 [History] Magnesium 200 mg PO DAILY #30 tablet 04/01/19 [Rx] Montelukast [Singulair] 10 mg PO BEDTIME 04/01/19 [History] Ondansetron [Zofran ODT] 4 mg PO Q6H PRN #20 tab.dis 04/01/19 [Rx] Past Medical History HEENT History: Reports: Impaired Vision Other HEENT History: wears glasses Cardiovascular History: Reports: High Cholesterol Respiratory History: Reports: Asthma Gastrointestinal History: Reports: GERD Genitourinary History: Reports: UTI, Recurrent NETWORK ACCOUNT MANAGER History: Reports: Other (See Below) Other NETWORK ACCOUNT MANAGER History: Patient states she started menopause at 54 yoa Neurological History: Reports: Headaches, Chronic Other Neuro History: headaches Psychiatric History: Reports: Addiction, Anxiety, Bipolar, Depression, Eating Disorders Other Psychiatric History: eating disorder at age 14 Endocrine/Metabolic History: Reports: Osteoporosis Hematologic History: Reports: None Immunologic History: Reports: Other (See Below) Other Immunologic History: recurrent staph infections Oncologic (Cancer) History: Reports: None - Infectious Disease History Infectious Disease History: Reports: Chicken Pox - Past Surgical History Head Surgeries/Procedures: Reports: None HEENT Surgical History: Reports: Adenoidectomy, Oral Surgery, Tonsillectomy, Other (See Below) GI Surgical History: Reports: Appendectomy Musculoskeletal Surgical History: Reports: ORIF, Shoulder Surgery Social & Family History - Family History Family Medical History: Noncontributory Cardiac: Reports: None - Tobacco Use Smoking Status *Q: Never Smoker Second Hand Smoke Exposure: No - Caffeine Use Caffeine Use: Reports: Soda Other Caffeine Use: Unknown if ever used due to being currently intoxicated. 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 Denies: Fever, Chills HEENT: Reports: Other (Complains of a dry mouth) Respiratory: Denies: Shortness of Breath, Cough Cardiovascular: Denies: Chest Pain Endocrine: Reports: No Symptoms GI/Abdominal: Denies: Abdominal Pain, Diarrhea, Nausea, Vomiting : Reports: No Symptoms Musculoskeletal: Reports: Other (Bruising on knees ankles with abrasions) Skin: Reports: Other (Ankle abrasions) Neurological: Reports: Difficulty Walking, Gait Disturbance Psychiatric: Reports: Anxiety ED EXAM, BEHAVIORAL HEALTH - Physical Exam Exam: See Below Exam Limited By: No Limitations General Appearance: Alert, WD/WN, Anxious, Thin Eye Exam: Bilateral Eye: Normal Inspection Ears: Normal External Exam, Normal Canal, Normal TMs Nose: Normal Inspection Throat/Mouth: Normal Lips, Normal Voice, No Airway Compromise, Other (Mucous membranes are tacky and more dry than they are moist) Head: Normocephalic Neck: Supple Respiratory/Chest: No Respiratory Distress, Lungs Clear, Normal Breath Sounds Cardiovascular: Regular Rate, Rhythm, No Murmur, Tachycardia GI/Abdominal: Soft, Non-Tender Back Exam: Full Range of Motion Extremities: Other (He has obvious bruising in different stages of colors on both her knees she has bruising on her lateral ankles and abrasions to the lateral ankles she does not appear to have any trauma to her upper extremities) Neurological: Alert, Normal Mood/Affect, No Motor/Sensory Deficits, Oriented x 3 Psychiatric: Alert, Restless, Other (The patient is anxious ) Skin Exam: Warm, Dry EKG INTERPRETATION EKG Date: 07/11/19 Time: 04:00 EKG Interpretation Comments: EKG shows a sinus tachycardia but there is severe baseline artifact but I do not see any significant or acute ST elevation or acute ischemia changes COURSE, BEHAVIORAL HEALTH COMP - Course Vital Signs: Last Vital Signs Temp 97.8 F 07/11/19 03:36 Pulse 130 H 07/11/19 03:36 Resp 22 H 07/11/19 03:36 BP 138/86 07/11/19 03:36 Pulse Ox 100 07/11/19 03:36 Orders, Labs, Meds: Active Orders 24 hr Category Date Time Status EKG 12 Lead [EKG Documentation Completion] [RC] STAT Care 07/11/19 03:54 Active CXR [Chest 1V Frontal] [CR] Stat Exams 07/11/19 04:56 Taken DRUG SCREEN, URINE [URCHEM] Stat Lab 07/11/19 03:53 Ordered UA W/MICROSCOPIC [URIN] Stat Lab 07/11/19 03:52 Ordered NS + KCl 20mEq/L [Normal Saline with 20 mEq KCl] 1,000 Med 07/11/19 05:15 Active ml IV ASDIRECTED Sodium Chloride 0.9% [Normal Saline] 1,000 ml Med 07/11/19 04:00 Active IV ASDIRECTED Medication Orders Sodium Chloride (Normal Saline) 1,000 mls @ 1,000 mls/hr IV ASDIRECTED STEPHANE Last Admin: 07/11/19 03:57 Dose: 1,000 mls/hr Potassium Chloride/Sodium Chloride (Normal Saline With 20 Meq Kcl) 1,000 mls @ 500 mls/hr IV ASDIRECTED STEPHANE Last Admin: 07/11/19 05:49 Dose: 500 mls/hr Laboratory Tests 07/11/19 07/11/19 Range/Units 03:57 03:57 WBC 14.51 H (3.98-10.04) K/mm3 RBC 3.64 L (3.98-5.22) M/mm3 Hgb 9.7 L (11.2-15.7) gm/dl Hct 30.4 L (34.1-44.9) % MCV 83.5 D (79.4-94.8) fl MCH 26.6 (25.6-32.2) pg MCHC 31.9 L (32.2-35.5) g/dl RDW Std Deviation 57.4 H (36.4-46.3) fL Plt Count 143 L D (182-369) K/mm3 MPV 9.3 L (9.4-12.3) fl Neut % (Auto) 83.9 H (34.0-71.1) % Lymph % (Auto) 10.6 L (19.3-51.7) % [place] % (Auto) 5.1 (4.7-12.5) % Eos % (Auto) 0.1 L (0.7-5.8) Baso % (Auto) 0.3 (0.1-1.2) % Neut # (Auto) 12.18 H (1.56-6.13) K/mm3 Lymph # (Auto) 1.54 (1.18-3.74) K/mm3 [place] # (Auto) 0.74 H (0.24-0.36) K/mm3 Eos # (Auto) 0.01 L (0.04-0.36) K/mm3 Baso # (Auto) 0.04 (0.01-0.08) K/mm3 Manual Slide Review Abnormal smear Sodium 135 L D (136-145) mEq/L Potassium 2.9 L (3.5-5.1) mEq/L Chloride 97 L D (98-107) mEq/L Carbon Dioxide 20 L (21-32) mEq/L Anion Gap 20.9 H (5-15) BUN 5 L (7-18) mg/dL Creatinine 0.7 (0.55-1.02) mg/dL Est Cr Clr Drug Dosing 66.48 mL/min Estimated GFR (MDRD) > 60 (>60) mL/min BUN/Creatinine Ratio 7.1 L (14-18) Glucose 85 (80-115) mg/dL Calcium 7.1 L (8.5-10.1) mg/dL Magnesium 0.8 L (1.8-2.4) mg/dl Total Bilirubin 0.5 (0.2-1.0) mg/dL AST 79 H (15-37) U/L ALT 52 (14-59) U/L Alkaline Phosphatase 123 H (46-116) U/L Troponin I 0.024 (0.00-0.056) ng/mL Total Protein 5.2 L (6.4-8.2) g/dl Albumin 2.7 L (3.4-5.0) g/dl Globulin 2.5 gm/dL Albumin/Globulin Ratio 1.1 (1-2) Lipase 132 (73-393) U/L Ethyl Alcohol 0.17 (0.00) gm% Medications Generic Name Dose Route Start Last Admin Trade Name Abelardo PRN Reason Stop Dose Admin Sodium Chloride 1,000 mls @ 1,000 mls/hr 07/11/19 04:00 07/11/19 03:57 Normal Saline IV 1,000 mls/hr ASDIRECTED STEPHANE Administration Potassium Chloride/Sodium Chloride 1,000 mls @ 500 mls/hr 07/11/19 05:15 05:49 Normal Saline With 20 Meq Kcl IV 500 mls/hr ASDIRECTED STEPHANE Administration Discontinued Medications Generic Name Dose Route Start Last Admin Trade Name Herreraq PRN Reason Stop Dose Admin Folic Acid 1 mg 07/11/19 04:15 Folic Acid IV DAILY STEPHANE Folic Acid 1 mg 07/11/19 04:16 07/11/19 04:20 Folic Acid PO 07/11/19 04:17 1 mg ONETIME ONE Administration Magnesium Sulfate 2 gm/ Premix 50 mls @ 25 mls/hr 07/11/19 04:57 07/11/19 05: 00 IV 07/11/19 06:56 25 mls/hr ONETIME ONE Administration Lorazepam 1 mg 07/11/19 04:21 07/11/19 04:25 Ativan IVPUSH 07/11/19 04:22 1 mg ONETIME ONE Administration Lorazepam Confirm 07/11/19 04:23 07/11/19 04:57 Ativan Administered 07/11/19 04:24 Not Given Dose 2 mg .ROUTE .STK-MED ONE Pantoprazole Sodium 40 mg 07/11/19 05:38 07/11/19 05:49 Protonix Iv IVPUSH 07/11/19 05:39 40 mg ONETIME ONE Administration Thiamine HCl 100 mg 07/11/19 04:09 07/11/19 04:19 Vitamin B-1 IVPUSH 07/11/19 04:10 100 mg ONETIME ONE Administration Re-Assessment/Re-Exam: This x-ray does not show any acute infiltrates she does appear to have some emphysematous type changes. Discharge vs Psych Eval/Treatment:: 07/11/19 07:16 I have been speaking to the patient on and off during her entire ER stay. We have been talking about her low potassium and platelets and her elevated anion gap as well as low magnesium calcium protein and albumin and her alcohol level of 0.17 and a hemoglobin of 9.7. I have given her 2 g of mag and started her on fluids as well as potassium IV gave her thiamine IV and folate PO. She was rather shaky when she first arrived and she was complaining of anxiety and she was afraid she was going to . I reassured her she was not going to . To her my read number of abnormalities in her blood work I am going to request admission for rehydration and correction of her electrolytes. She has been to multiple rehab centers and she was working with [facility] but that did not seem to work out for her. I do not get the impression that she is wanting to stop alcohol she is just wanting a relief for a short period of time so she can resume alcohol. 07/11/19 07:[address] Parada and she is willing to see the patient in the ER for further evaluation and treatment Departure - Departure Time of Disposition: 07:22 Disposition: Admitted As Inpatient 68 Condition: Poor Clinical Impression: Alcohol abuse, Hypokalemia, Thrombocytopenia, Hypomagnesemia, Hypocalcemia, Hypoproteinemia, Hypoalbuminemia, Alcoholism /alcohol abuse Acute alcohol intoxication Qualifiers: Complication of substance-induced condition: uncomplicated Qualified Code(s): F10.920 - Alcohol use, unspecified with intoxication, uncomplicated Anemia Qualifiers: Anemia type: unspecified type Qualified Code(s): D64.9 - Anemia, unspecified Anxiety disorder Qualifiers: Anxiety disorder type: generalized anxiety disorder Qualified Code(s): F41.1 - Generalized anxiety disorder Esophageal reflux Qualifiers: Esophagitis presence: without esophagitis Qualified Code(s): K21.9 - Gastro- esophageal reflux disease without esophagitis Contusion of right knee Qualifiers: Encounter type: initial encounter Qualified Code(s): S80.01XA - Contusion of right knee, initial encounter Contusion of left knee Qualifiers: Encounter type: initial encounter Qualified Code(s): S80.02XA - Contusion of left knee, initial encounter Abrasion of ankle, left Qualifiers: Encounter type: initial encounter Qualified Code(s): S90.512A - Abrasion, left ankle, initial encounter Abrasion of ankle, right Qualifiers: Encounter type: initial encounter Qualified Code(s): S90.511A - Abrasion, right ankle, initial encounter - Discharge Information Sepsis Event Note - Evaluation Sepsis Screening Result: No Definite Risk - Focused Exam Vital Signs: Vital Signs Temp Pulse Resp BP Pulse Ox 07/11/19 03:36 97.8 F 130 H 22 H 138/86 100 Date Exam was Performed: 07/11/19 Time Exam was Performed: 07:16 ED Communication - ED Communication Date/Time Date: 07/11/19 Time Called: 07:28 - Discussed Case With (1) Discussed Case With (1): Admitting Provider Person/s Notified (1): Brooke Villagran (She will see the patient in the ER for further evaluation and treatment) - My Orders Last 24 Hours: My Active Orders 07/11/19 03:52 UA W/MICROSCOPIC [URIN] Stat 07/11/19 03:53 DRUG SCREEN, URINE [URCHEM] Stat 07/11/19 03:54 EKG 12 Lead [EKG Documentation Completion] [RC] STAT 07/11/19 04:00 Sodium Chloride 0.9% [Normal Saline] 1,000 ml IV ASDIRECTED 07/11/19 04:56 CXR [Chest 1V Frontal] [CR] Stat 07/11/19 05:15 NS + KCl 20mEq/L [Normal Saline with 20 mEq KCl] 1,000 ml IV ASDIRECTED - Assessment/Plan Last 24 Hours: My Active Orders 07/11/19 03:52 UA W/MICROSCOPIC [URIN] Stat 07/11/19 03:53 DRUG SCREEN, URINE [URCHEM] Stat 07/11/19 03:54 EKG 12 Lead [EKG Documentation Completion] [RC] STAT 07/11/19 04:00 Sodium Chloride 0.9% [Normal Saline] 1,000 ml IV ASDIRECTED 07/11/19 04:56 CXR [Chest 1V Frontal] [CR] Stat 07/11/19 05:15 NS + KCl 20mEq/L [Normal Saline with 20 mEq KCl] 1,000 ml IV ASDIRECTED
[2019-07-11] MEDS ORDERED: Sodium Chloride 0.9% 1,000 ML IV SCH (04:00)
[2019-07-11] MEDS ORDERED: Thiamine 200 MG/2 ML MDV IVPUSH ONE (04:09)
[2019-07-11] MEDS ORDERED: Folic Acid 50 MG/10 ML MDV IV SCH (04:15)
[2019-07-11] MEDS ORDERED: Folic Acid 1 MG Tab PO ONE (04:16)
[2019-07-11] MEDS ORDERED: LORazepam 2 MG/ML SDV IVPUSH ONE (04:21)
[2019-07-11] MEDS ORDERED: LORazepam 2 MG/ML SDV ONE (04:23)
[2019-07-11] MEDS ORDERED: Magnesium Sulfate/Water 2 GM in Premix Bag 1 BAG IV ONE (04:57)
[2019-07-11] MEDS ORDERED: NS + KCl 20mEq/L 1,000 ML IV SCH (05:15)
[2019-07-11] MEDS ORDERED: Pantoprazole 40 MG Vial IVPUSH ONE (05:38)
[2019-07-11] MEDS ORDERED: Ondansetron 4 MG/2 ML SDV IV PRN (07:53)
[2019-07-11] MEDS ORDERED: Ondansetron 4 MG Tab.DIS PO PRN (07:53)
[2019-07-11] MEDS ORDERED: Thiamine 1,000 MG, Magnesium Sulfate 4 GM, Folic Acid 1 MG in Dextrose 5%-0.9% NaCl 1,0... IV SCH (08:00)
--- NOTE | 2019-07-11 08:04 | PCM.HP.2 ---
H&P History of Present Illness - General Date of Service: 07/11/19 Admit Problem/Dx: Admission Diagnosis/Problem Admission Diagnosis/Problem Alcohol withdrawal syndrome - History of Present Illness Initial Comments - Free Text/Narative: This is a 63-year-old female who presents to the ED stating that she came in because she was scared to be at home and falling. As per patient 8 days ago she started drinking again 6-8 "airplane size bottles of vodka"/day. At the same time she stopped eating because of loss of appetite and stopped taking most of her medications except for potassium and Sucralfate. When asked why she did this, she states " I'm sad" Last alcoholic drink was evening. Patient has a long history of chronic alcoholism and a severe anxiety disorder. She has completed numerous rehabilitation stays for her alcoholism with the most recent being at [facility] with a discharge on 11/22/2018. She also has weekly appointments for counseling, however she missed this week. She denies any history of DTs or withdrawal induced seizures. Generalized Pain Score (Numeric/FACES): 3 - Related Data Allergies/Adverse Reactions: Allergies Allergy/AdvReac Type Severity Reaction Status Date / Time levofloxacin [From Levaquin] Allergy Rash Verified 07/11/19 03:37 propoxyphene napsylate AdvReac Headache Verified 07/11/19 03:37 [From Darvocet-N] quetiapine fumarate AdvReac Confusion Verified 07/11/19 03:37 [From Seroquel] Home Medications: Home Meds Fluticasone Propion/Salmeterol [Advair 250-50 Diskus] 1 puff IH DAILY 05/24/16 [ History] atorvaSTATin [Lipitor] 20 mg PO DAILY 05/24/16 [History] Albuterol Sulfate [Albuterol Sulfate Hfa] 2 puff PO Q4HR PRN 12/22/18 [History] DULoxetine [Cymbalta] 30 mg PO DAILY 12/22/18 [History] Losartan [Cozaar] 12.5 mg PO DAILY 12/22/18 [History] Omeprazole 20 mg PO ACBREAKFAST 12/22/18 [History] Potassium Chloride 20 meq PO DAILY 12/22/18 [History] Sucralfate [Carafate] 1 gm PO QID 12/22/18 [History] Folic Acid 1 mg PO DAILY #30 tablet 12/23/18 [Rx] Naltrexone 50 mg PO DAILY #30 tablet 12/23/18 [Rx] Thiamine [Vitamin B-1] 100 mg PO BEDTIME #30 tab 12/23/18 [Rx] Cranberry Fruit Extract [Cranberry] 0 mg PO DAILY 04/01/19 [History] Lutein/Minerals/Vit A,C & E [Ocuvite] 1 tab PO DAILY 04/01/19 [History] Magnesium 200 mg PO DAILY #30 tablet 04/01/19 [Rx] Montelukast [Singulair] 10 mg PO BEDTIME 04/01/19 [History] Ondansetron [Zofran ODT] 4 mg PO Q6H PRN #20 tab.dis 04/01/19 [Rx] Past Medical History HEENT History: Reports: Impaired Vision Other HEENT History: wears glasses Cardiovascular History: Reports: High Cholesterol Respiratory History: Reports: Asthma Gastrointestinal History: Reports: GERD Genitourinary History: Reports: UTI, Recurrent 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 (See Below) Other OB/BYN History: Patient states she started menopause at 54 yoa Neurological History: Reports: Headaches, Chronic Other Neuro History: headaches Psychiatric History: Reports: Addiction, Anxiety, Bipolar, Depression, Eating Disorders Other Psychiatric History: eating disorder at age 14 Endocrine/Metabolic History: Reports: Osteoporosis Hematologic History: Reports: None Immunologic History: Reports: Other (See Below) Other Immunologic History: recurrent staph infections Oncologic (Cancer) History: Reports: None - Infectious Disease History Infectious Disease History: Reports: Chicken Pox - Past Surgical History Head Surgeries/Procedures: Reports: None HEENT Surgical History: Reports: Adenoidectomy, Oral Surgery, Tonsillectomy, Other (See Below) GI Surgical History: Reports: Appendectomy Musculoskeletal Surgical History: Reports: ORIF, Shoulder Surgery Social & Family History - Family History Family Medical History: Noncontributory Cardiac: Reports: None - Tobacco Use Smoking Status *Q: Never Smoker Second Hand Smoke Exposure: No - Caffeine Use Caffeine Use: Reports: Soda Other Caffeine Use: Unknown if ever used due to being currently intoxicated. 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 Denies: Fever, Fatigue, Night Sweats, Weight Gain HEENT: Reports: Other (right eye drainage, BL pruritus). Denies: Headaches, Hearing Changes, Rhinitis, Post Nasal Drip, Sinus Congestion, Sore Throat, Vertigo Pulmonary: Denies: Shortness of Breath, Wheezing, Pleuritic Chest Pain, Cough, Sputum, Hemoptysis Cardiovascular: Denies: Chest Pain, Palpitations, Dyspnea on Exertion, Orthopnea , PND, Edema, Lightheadedness, Syncope, Claudication, Blood Pressure Problem Gastrointestinal: Reports: Anorexia, Decreased Appetite. Denies: Abdominal Pain , Constipation, Diarrhea, Distension, Flatus, Nausea, Vomiting Genitourinary: Denies: Dysuria, Frequency, Burning Skin: Reports: Pallor, Bruising Psychiatric: Reports: Depression. Denies: Suicidal Ideation, Homicidal Ideation , Hallucinations (Auditory), Hallucinations (Visual) Exam - Exam Exam: See Below - Vital Signs Vital Signs: Last Vital Signs Temp 97.8 F 07/11/19 03:36 Pulse 130 H 07/11/19 03:36 Resp 22 H 07/11/19 03:36 BP 138/86 07/11/19 03:36 Pulse Ox 100 07/11/19 03:36 Weight: 49.895 kg - Exam General: Alert, Oriented, Cooperative, Moderate Distress HEENT: Other (erythematous conjunctiva BL with purulent discharge from right eye ) Neck: Supple, Trachea Midline Lungs: Clear to Auscultation, Normal Respiratory Effort. No: Decreased Breath Sounds, Crackles, Rales, Rhonchi, Rub, Stridor, Wheezing Cardiovascular: Regular Rhythm, Tachycardia. No: Systolic Murmur, Diastolic Murmur, Rubs, Gallop/S3, Gallop/S4 GI/Abdominal Exam: Normal Bowel Sounds, Soft, Non-Tender, No Organomegaly Extremities: Normal Inspection, No Pedal Edema, Slow Capillary Refill Psychiatric: Depressed, Agitated, Withdrawal Symptoms. No: Suicidal Ideation, Homicidal Ideation - Patient Data Result Diagrams: 07/11/19 03:57 07/11/19 03:57 Sepsis Event Note - Evaluation Sepsis Screening Result: No Definite Risk - Focused Exam Vital Signs: Vital Signs Temp Pulse Resp BP Pulse Ox 07/11/19 03:36 97.8 F 130 H 22 H 138/86 100 Date Exam was Performed: 07/11/19 Time Exam was Performed: 08:29 - Problem List (1) Alcohol withdrawal syndrome SNOMED Code(s): 896491159 ICD Code: F10.239 - ALCOHOL DEPENDENCE WITH WITHDRAWAL, UNSPECIFIED Status : Acute Current Visit: No Qualifiers: Complication of substance-induced condition: uncomplicated Qualified Code(s ): F10.230 - Alcohol dependence with withdrawal, uncomplicated (2) Acute alcohol intoxication SNOMED Code(s): 45319535, 01740815 ICD Code: F10.929 - ALCOHOL USE, UNSPECIFIED WITH INTOXICATION, UNSPECIFIED Status: Acute Current Visit: Yes Qualifiers: Complication of substance-induced condition: uncomplicated Qualified Code(s ): F10.920 - Alcohol use, unspecified with intoxication, uncomplicated (3) Alcohol abuse SNOMED Code(s): 20221066 ICD Code: F10.10 - ALCOHOL ABUSE, UNCOMPLICATED Status: Acute Current Visit: Yes (4) Bacterial conjunctivitis of both eyes SNOMED Code(s): 134515991 ICD Code: H10.9 - UNSPECIFIED CONJUNCTIVITIS Status: Acute Current Visit : Yes (5) Hyponatremia SNOMED Code(s): 10406885 ICD Code: E87.1 - HYPO-OSMOLALITY AND HYPONATREMIA Status: Acute Current Visit: Yes (6) Hypokalemia SNOMED Code(s): 90719078 ICD Code: E87.6 - HYPOKALEMIA Status: Acute Current Visit: Yes (7) Hypomagnesemia SNOMED Code(s): 329092233 ICD Code: E83.42 - HYPOMAGNESEMIA Status: Acute Current Visit: Yes (8) Hypoalbuminemia SNOMED Code(s): 239140149 ICD Code: E88.09 - OTH DISORDERS OF PLASMA-PROTEIN METABOLISM, NEC Status: Acute Current Visit: Yes (9) Hypocalcemia SNOMED Code(s): 5842614 ICD Code: E83.51 - HYPOCALCEMIA Status: Acute Current Visit: Yes (10) Hypertension SNOMED Code(s): 42660787 ICD Code: I10 - ESSENTIAL (PRIMARY) HYPERTENSION Status: Acute Current Visit: No (11) Depressive disorder SNOMED Code(s): 47828325 ICD Code: F32.9 - MAJOR DEPRESSIVE DISORDER, SINGLE EPISODE, UNSPECIFIED Status: Acute Current Visit: No (12) Anxiety disorder SNOMED Code(s): 509190620 ICD Code: F41.9 - ANXIETY DISORDER, UNSPECIFIED Status: Acute Current Visit: Yes Qualifiers: Anxiety disorder type: generalized anxiety disorder Qualified Code(s): F41.1 - Generalized anxiety disorder (13) Bipolar disorder SNOMED Code(s): 16017924 ICD Code: F31.9 - BIPOLAR DISORDER, UNSPECIFIED Status: Acute Current Visit: Yes (14) Leukocytosis SNOMED Code(s): 311788211 ICD Code: D72.829 - ELEVATED WHITE BLOOD CELL COUNT, UNSPECIFIED Status: Acute Current Visit: No (15) Anemia SNOMED Code(s): 953263690 ICD Code: D64.9 - ANEMIA, UNSPECIFIED Status: Acute Current Visit: Yes Qualifiers: Anemia type: unspecified type Qualified Code(s): D64.9 - Anemia, unspecified (16) Thrombocytopenia SNOMED Code(s): 433070104 ICD Code: D69.6 - THROMBOCYTOPENIA, UNSPECIFIED Status: Acute Current Visit: Yes (17) Anorexia SNOMED Code(s): 49039928 ICD Code: R63.0 - ANOREXIA Status: Acute Current Visit: No (18) Asthma SNOMED Code(s): 425982030 ICD Code: J45.909 - UNSPECIFIED ASTHMA, UNCOMPLICATED Status: Acute Current Visit: No (19) Dyslipidemia SNOMED Code(s): 416481368 ICD Code: E78.5 - HYPERLIPIDEMIA, UNSPECIFIED Status: Acute Current Visit : No Problem List Initiated/Reviewed/Updated: Yes Assessment/Plan Comment:: Alcohol withdrawal syndrome Acute alcohol intoxication Alcohol abuse Depressive/ Anxiety/ Bipolar disorder Drinking binge for 8 days Unknown trigger Multiple readmissions in inpatient rehab stays Missed this week's counseling appointment, regularly scheduled weekly Last drink evening Stated " I don't wanna , I've got a lot to live for" Denies current SI or HI PLAN - Admit to ICU - Continue lamotrigine, duloxetine, naltrexone, thiamine and folic acid - CIWA protocol - Ativan as per protocol - NS at 125ml/hr - Banana bag today and in AM Bacterial conjunctivitis of both eyes Unknown chronicity PLAN - Antibacterial ointment every 8 hours Hyponatremia/ Hypokalemia/ Hypomagnesemia Hypoalbuminemia/ Hypocalcemia Na 135 K 2.9 Mag 0.8 Alb 2.7 Calcium 7.1 PLAN - Received KCl and Magnesium in ED - Banana bag - Phosphorus level Hypertension BP on admission 138/86 PLAN - Continue Losartan - PRN hydralazine Anorexia Underweight BMI 17 PLAN - Nutritional supplements with meals - Dietary consult Asthma Controlled No signs of acute exacerbation Home management with Advair, Singulair and [place] albuterol PLAN - Continue home medications - Monitor SatO2 Dyslipidemia No acute issues PLAN - Continue home Atorvastatin PROPHYLAXIS DVT- SCDs GI- Home medication CODE STATUS: FULL CODE DISPOSITION: Patient will be admitted to ICU for CIWA protocol and repletion of electrolytes. Likely to be discharged on Saturday. - Mortality Measure Prognosis:: Poor
[2019-07-11] MEDS: Nicotine 21 MG/24 Hr Patch TRDERM SCH ×2 (08:42→08:45)
[2019-07-11] MEDS: Dexamethasone/Neomycin/Polymyxin B Ophth Oint 3.5 GM Tube EYEBOTH SCH ×3 (08:42→21:34)
[2019-07-11] MEDS: Thiamine 1,000 MG, Magnesium Sulfate 4 GM, Folic Acid 1 MG in Dextrose 5%-0.9% NaCl 1,0... IV SCH (08:42)
[2019-07-11] MEDS: LORazepam 2 MG/ML SDV IV SCH ×5 (10:00→21:55)
--- NOTE | 2019-07-11 10:10 | CR ---
Chest: Portable view of the chest was obtained. Comparison: Prior chest x-ray of 12/21/18. Heart size is normal. Upper mediastinum is normal. Lungs are clear. Prior right shoulder surgery is noted. Impression: 1. Nothing acute is appreciated on portable chest x-ray. Diagnostic code #2 This report was dictated in MDT
[2019-07-12] MEDS: LORazepam 2 MG/ML SDV IV SCH ×2 (00:05→23:56)
[2019-07-12] MEDS: Nicotine 21 MG/24 Hr Patch TRDERM SCH (08:27)
[2019-07-12] MEDS: Dexamethasone/Neomycin/Polymyxin B Ophth Oint 3.5 GM Tube EYEBOTH SCH ×3 (08:28→21:02)
[2019-07-12] MEDS: Thiamine 1,000 MG, Magnesium Sulfate 4 GM, Folic Acid 1 MG in Dextrose 5%-0.9% NaCl 1,0... IV SCH (08:53)
--- NOTE | 2019-07-12 09:11 | PCM.PN ---
- General Info Date of Service: 07/12/19 Subjective Update: Slept all night Still requiring scheduled Ativan No hallucinations - Patient Data Vitals - Most Recent: Last Vital Signs Temp 98.0 F 07/12/19 08:00 Pulse 120 H 07/12/19 08:00 Resp 20 07/12/19 08:00 BP 124/70 07/12/19 08:32 Pulse Ox 100 07/12/19 08:00 Weight - Most Recent: 56.245 kg - Exam General: Alert, Cooperative, Mild Distress, Moderate Distress HEENT: Mucous Membr. Moist/[place] Neck: Supple Lungs: Normal Respiratory Effort. No: Crackles, Rales, Rhonchi, Rub, Stridor, Wheezing Cardiovascular: Tachycardia. No: Murmurs, Gallops, Rubs GI/Abdominal Exam: Soft, Non-Tender. No: Distended, Guarding, Rigid, Rebound Extremities: Other (continuous tremor) Neurological: Other (shaking voice, head and hands) Sepsis Event Note - Evaluation Sepsis Screening Result: No Definite Risk - Focused Exam Vital Signs: Vital Signs Temp Pulse Resp BP Pulse Ox 07/12/19 08:32 124/70 07/12/19 08:00 98.0 F 120 H 20 137/92 H 100 07/12/19 04:00 105 H 20 118/79 97 07/12/19 00:00 129 H 20 126/76 97 Date Exam was Performed: 07/13/19 Time Exam was Performed: 07:57 - Problem List & Annotations (1) Alcohol withdrawal syndrome SNOMED Code(s): 160825487 Code(s): F10.239 - ALCOHOL DEPENDENCE WITH WITHDRAWAL, UNSPECIFIED Status: Acute Current Visit: No Qualifiers: Complication of substance-induced condition: uncomplicated Qualified Code(s ): F10.230 - Alcohol dependence with withdrawal, uncomplicated (2) Acute alcohol intoxication SNOMED Code(s): 20450387, 80228184 Code(s): F10.929 - ALCOHOL USE, UNSPECIFIED WITH INTOXICATION, UNSPECIFIED Status: Acute Current Visit: Yes Qualifiers: Complication of substance-induced condition: uncomplicated Qualified Code(s ): F10.920 - Alcohol use, unspecified with intoxication, uncomplicated (3) Alcohol abuse SNOMED Code(s): 35567120 Code(s): F10.10 - ALCOHOL ABUSE, UNCOMPLICATED Status: Acute Current Visit: Yes (4) Bacterial conjunctivitis of both eyes SNOMED Code(s): 696232036 Code(s): H10.9 - UNSPECIFIED CONJUNCTIVITIS Status: Acute Current Visit: Yes (5) Hyponatremia SNOMED Code(s): 69326125 Code(s): E87.1 - HYPO-OSMOLALITY AND HYPONATREMIA Status: Acute Current Visit: Yes (6) Hypokalemia SNOMED Code(s): 73938228 Code(s): E87.6 - HYPOKALEMIA Status: Acute Current Visit: Yes (7) Hypomagnesemia SNOMED Code(s): 280305193 Code(s): E83.42 - HYPOMAGNESEMIA Status: Acute Current Visit: Yes (8) Hypoalbuminemia SNOMED Code(s): 945188779 Code(s): E88.09 - OTH DISORDERS OF PLASMA-PROTEIN METABOLISM, NEC Status: Acute Current Visit: Yes (9) Hypocalcemia SNOMED Code(s): 4836728 Code(s): E83.51 - HYPOCALCEMIA Status: Acute Current Visit: Yes (10) Hypertension SNOMED Code(s): 14662842 Code(s): I10 - ESSENTIAL (PRIMARY) HYPERTENSION Status: Acute Current Visit: No (11) Depressive disorder SNOMED Code(s): 52415146 Code(s): F32.9 - MAJOR DEPRESSIVE DISORDER, SINGLE EPISODE, UNSPECIFIED Status: Acute Current Visit: No (12) Anxiety disorder SNOMED Code(s): 075701028 Code(s): F41.9 - ANXIETY DISORDER, UNSPECIFIED Status: Acute Current Visit: Yes Qualifiers: Anxiety disorder type: generalized anxiety disorder Qualified Code(s): F41.1 - Generalized anxiety disorder (13) Bipolar disorder SNOMED Code(s): 41557969 Code(s): F31.9 - BIPOLAR DISORDER, UNSPECIFIED Status: Acute Current Visit: Yes (14) Leukocytosis SNOMED Code(s): 874702156 Code(s): D72.829 - ELEVATED WHITE BLOOD CELL COUNT, UNSPECIFIED Status: Acute Current Visit: No (15) Anemia SNOMED Code(s): 400075240 Code(s): D64.9 - ANEMIA, UNSPECIFIED Status: Acute Current Visit: Yes Qualifiers: Anemia type: unspecified type Qualified Code(s): D64.9 - Anemia, unspecified (16) Thrombocytopenia SNOMED Code(s): 327092289 Code(s): D69.6 - THROMBOCYTOPENIA, UNSPECIFIED Status: Acute Current Visit: Yes (17) Anorexia SNOMED Code(s): 33408591 Code(s): R63.0 - ANOREXIA Status: Acute Current Visit: No (18) Asthma SNOMED Code(s): 932558834 Code(s): J45.909 - UNSPECIFIED ASTHMA, UNCOMPLICATED Status: Acute Current Visit: No (19) Dyslipidemia SNOMED Code(s): 461732130 Code(s): E78.5 - HYPERLIPIDEMIA, UNSPECIFIED Status: Acute Current Visit : No - Problem List Review Problem List Initiated/Reviewed/Updated: Yes - Plan Plan:: ASSESSMENT BY DAY Day 1 - Came in after 8 day drinking binge with vodka, last drink night before admission - Missed counseling appointment this week - Denies SI or HI - Bacterial conjunctivitis for unknown time - Found to have multiple metabolic derangements on admission, hyponatremia, hypokalemia, hypomagnesemia - Admitted for CIWA protocol Day 2 - CIWA trend between 11-20 - Magnesium and phosphate normal - K still low from 2.9 --> 2.6 - Tachycardic, HR trend 120-130 - BP trend 132-142/75-89 PLAN BY SYSTEMS: Neurology: Continue CIWA protocol Minimize central acting medications as possible. Daily sedation vacation. Frequent neurologic exams by nursing staff. Restart home medications Psychiatry consult Respiratory: Aspiration precautions. Cardiovascular: Continue IVF Metoprolol for tachycardia PRN GI and Nutrition: Continue diet PRN bowel regimen. Kidney and Electrolytes: Banana bag #2 Strict monitoring of intake, output and overall fluid balance. Maintain neutral as possible. Monitor electrolytes and replace as needed. Trend creatinine and BUN. Jeffries catheter care Endocrine: Scheduled Accu-checks. Hypoglycemia protocol in place. Infectious Disease: Trend temperature. Panculture if febrile. Continue antibiotic ointment Hematology and Coagulation: No active bleeding, no coagulopathy to correct, no need to transfuse blood products at the moment. Goal hemoglobin >7g PROPHYLAXIS DVT- SCDs GI- Home medication CODE STATUS: FULL CODE DISPOSITION: Patient will be remain admitted to ICU for CIWA protocol and repletion of electrolytes.
[2019-07-12] MEDS ORDERED: Thiamine 1,000 MG, Magnesium Sulfate 4 GM, Folic Acid 1 MG in Dextrose 5%-0.9% NaCl 1,0... IV SCH (09:15)
[2019-07-12] MEDS: Potassium Chloride 10 MEQ in Premix Bag 1 BAG IV SCH ×6 (09:45→17:29)
[2019-07-12] MEDS: Sucralfate 1 GM Tab PO SCH ×3 (11:09→21:03)
[2019-07-12] MEDS ORDERED: Famotidine 20 MG Tab PO ONE (16:55)
[2019-07-12] MEDS: Dextrose 5%-Lactated Ringers 1,000 ML IV SCH (17:30)
[2019-07-12] MEDS: Mirtazapine 15 MG Tab PO SCH (21:03)
[2019-07-12] MEDS: Losartan 25 MG Tab PO SCH (21:03)
[2019-07-12] MEDS ORDERED: Loperamide 2 MG Cap PO ONE (21:46)
[2019-07-13] MEDS: LORazepam 2 MG/ML SDV IV SCH ×7 (00:57→23:25)
[2019-07-13] MEDS: Dextrose 5%-Lactated Ringers 1,000 ML IV SCH (02:59)
[2019-07-13] MEDS ORDERED: Haloperidol Lactate 5 MG/ML SDV IVPUSH ONE (03:54)
[2019-07-13] MEDS ORDERED: Metoprolol Tartrate 5 MG/5 ML SDV IVPUSH ONE (03:55)
[2019-07-13] MEDS ORDERED: Haloperidol Lactate 5 MG/ML SDV ONE (03:56)
[2019-07-13] MEDS ORDERED: Pantoprazole 40 MG Tab.CR PO SCH ×2 (07:00→09:00)
[2019-07-13] MEDS ORDERED: Magnesium Sulfate/Water 4 GM in Premix Bag 1 BAG IV ONE (09:39)
[2019-07-13] MEDS: Potassium Chloride 10 MEQ in Premix Bag 1 BAG IV SCH ×4 (09:48→12:48)
[2019-07-13] MEDS: Dexamethasone/Neomycin/Polymyxin B Ophth Oint 3.5 GM Tube EYEBOTH SCH ×3 (09:54→20:39)
[2019-07-13] MEDS: DULoxetine 30 MG Cap PO SCH (09:55)
[2019-07-13] MEDS: Naltrexone 50 MG Tab PO SCH (09:55)
[2019-07-13] MEDS: Pantoprazole 40 MG Tab.CR PO SCH (09:55)
[2019-07-13] MEDS: Sucralfate 1 GM Tab PO SCH ×4 (09:55→21:00)
[2019-07-13] MEDS: Magnesium Oxide 400 MG Tab PO SCH (09:55)
[2019-07-13] MEDS: Folic Acid 1 MG Tab PO SCH (09:55)
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
[2019-07-13] MEDS ORDERED: LACTATED RINGERS IV ONE (14:00)
[2019-07-13] MEDS ORDERED: POTASSIUM CHLORIDE IV ONE (14:00)
[2019-07-13] MEDS ORDERED: DEXTROSE 5% IV ONE (14:00)
--- NOTE | 2019-07-13 15:40 | PCM.PN ---
- General Info Date of Service: 07/13/19 Subjective Update: INTERVAL HISTORY Overnight Events: - Patient started hallucinating, was very agitated with CIWAs between 16-17 not responding to Ativan - Haldol dose was given to which she responded and fell asleep Vital Signs: BP trend: 108-137/54-92 HR trend:105-129 Tmax: 98.9 SatO2:>93% on RA Drips: D5LR I/Os: UO: 2, 705 24h balance: -1,818 New results: K 2.7--> 2.6 Mg 1.9 --> 1.7 - Patient Data Vitals - Most Recent: Last Vital Signs Temp 98.6 F 07/13/19 12:00 Pulse 101 H 07/13/19 04:00 Resp 16 07/13/19 12:00 BP 92/59 L 07/13/19 12:00 Pulse Ox 96 07/13/19 13:09 Weight - Most Recent: 53.977 kg - Exam Physical Findings Comments:: General: Alert, Cooperative, Mild Distress, Moderate Distress HEENT: Mucous Membr. Moist/[place] Neck: Supple Lungs: Normal Respiratory Effort. No: Crackles, Rales, Rhonchi, Rub, Stridor, Wheezing Cardiovascular: Tachycardia. No: Murmurs, Gallops, Rubs GI/Abdominal Exam: Soft, Non-Tender. No: Distended, Guarding, Rigid, Rebound Extremities: Other (continuous tremor) Neurological: Other (shaking voice, head and hands) Sepsis Event Note - Evaluation Sepsis Screening Result: No Definite Risk - Focused Exam Date Exam was Performed: 07/13/19 Time Exam was Performed: 18:32 - Problem List & Annotations (1) Alcohol withdrawal syndrome SNOMED Code(s): 154373285 Code(s): F10.239 - ALCOHOL DEPENDENCE WITH WITHDRAWAL, UNSPECIFIED Status: Acute Current Visit: No Qualifiers: Complication of substance-induced condition: uncomplicated Qualified Code(s ): F10.230 - Alcohol dependence with withdrawal, uncomplicated (2) Acute alcohol intoxication SNOMED Code(s): 57492847, 82118284 Code(s): F10.929 - ALCOHOL USE, UNSPECIFIED WITH INTOXICATION, UNSPECIFIED Status: Acute Current Visit: Yes Qualifiers: Complication of substance-induced condition: uncomplicated Qualified Code(s ): F10.920 - Alcohol use, unspecified with intoxication, uncomplicated (3) Alcohol abuse SNOMED Code(s): 40169622 Code(s): F10.10 - ALCOHOL ABUSE, UNCOMPLICATED Status: Acute Current Visit: Yes (4) Bacterial conjunctivitis of both eyes SNOMED Code(s): 543921086 Code(s): H10.9 - UNSPECIFIED CONJUNCTIVITIS Status: Acute Current Visit: Yes (5) Hyponatremia SNOMED Code(s): 04404634 Code(s): E87.1 - HYPO-OSMOLALITY AND HYPONATREMIA Status: Acute Current Visit: Yes (6) Hypokalemia SNOMED Code(s): 00975997 Code(s): E87.6 - HYPOKALEMIA Status: Acute Current Visit: Yes (7) Hypomagnesemia SNOMED Code(s): 563030257 Code(s): E83.42 - HYPOMAGNESEMIA Status: Acute Current Visit: Yes (8) Hypoalbuminemia SNOMED Code(s): 701471205 Code(s): E88.09 - OTH DISORDERS OF PLASMA-PROTEIN METABOLISM, NEC Status: Acute Current Visit: Yes (9) Hypocalcemia SNOMED Code(s): 6183099 Code(s): E83.51 - HYPOCALCEMIA Status: Acute Current Visit: Yes (10) Hypertension SNOMED Code(s): 97018988 Code(s): I10 - ESSENTIAL (PRIMARY) HYPERTENSION Status: Acute Current Visit: No (11) Anxiety disorder SNOMED Code(s): 486376978 Code(s): F41.9 - ANXIETY DISORDER, UNSPECIFIED Status: Acute Current Visit: Yes Qualifiers: Anxiety disorder type: generalized anxiety disorder Qualified Code(s): F41.1 - Generalized anxiety disorder (12) Bipolar disorder SNOMED Code(s): 58931694 Code(s): F31.9 - BIPOLAR DISORDER, UNSPECIFIED Status: Acute Current Visit: Yes (13) Leukocytosis SNOMED Code(s): 604693519 Code(s): D72.829 - ELEVATED WHITE BLOOD CELL COUNT, UNSPECIFIED Status: Acute Current Visit: No (14) Anemia SNOMED Code(s): 566658710 Code(s): D64.9 - ANEMIA, UNSPECIFIED Status: Acute Current Visit: Yes Qualifiers: Anemia type: unspecified type Qualified Code(s): D64.9 - Anemia, unspecified (15) Thrombocytopenia SNOMED Code(s): 396014187 Code(s): D69.6 - THROMBOCYTOPENIA, UNSPECIFIED Status: Acute Current Visit: Yes (16) Anorexia SNOMED Code(s): 29771947 Code(s): R63.0 - ANOREXIA Status: Acute Current Visit: No (17) Asthma SNOMED Code(s): 744044638 Code(s): J45.909 - UNSPECIFIED ASTHMA, UNCOMPLICATED Status: Acute Current Visit: No (18) Dyslipidemia SNOMED Code(s): 629102055 Code(s): E78.5 - HYPERLIPIDEMIA, UNSPECIFIED Status: Acute Current Visit : No (19) Sinus tachycardia SNOMED Code(s): 72923894 Code(s): R00.0 - TACHYCARDIA, UNSPECIFIED Status: Acute Current Visit: Yes (20) Major depressive disorder SNOMED Code(s): 093445272 Code(s): F32.9 - MAJOR DEPRESSIVE DISORDER, SINGLE EPISODE, UNSPECIFIED Status: Acute Current Visit: Yes (21) Post traumatic stress disorder SNOMED Code(s): 32744404 Code(s): F43.10 - POST-TRAUMATIC STRESS DISORDER, UNSPECIFIED Status: Acute Current Visit: Yes - Problem List Review Problem List Initiated/Reviewed/Updated: Yes - Plan Plan:: ASSESSMENT BY DAY Day 1 - Came in after 8 day drinking binge with vodka, last drink night before admission - Missed counseling appointment this week - Denies SI or HI - Bacterial conjunctivitis for unknown time - Found to have multiple metabolic derangements on admission, hyponatremia, hypokalemia, hypomagnesemia - Admitted for CIWA protocol Day 2 - CIWA trend between 11-20 - Magnesium and phosphate normal - K still low from 2.9 --> 2.6 - Tachycardic, HR trend 120-130 - BP trend 132-142/75-89 PLAN BY SYSTEMS: Neurology: Continue CIWA protocol Minimize central acting medications as possible. Daily sedation vacation. Frequent neurologic exams by nursing staff. Restart home medications Psychiatry consult Respiratory: Aspiration precautions. Cardiovascular: Continue IVF Metoprolol for tachycardia PRN GI and Nutrition: Continue diet PRN bowel regimen. Kidney and Electrolytes: Strict monitoring of intake, output and overall fluid balance. Maintain neutral as possible. Monitor electrolytes and replace as needed. Trend creatinine and BUN. Jeffries catheter care Endocrine: Scheduled Accu-checks. Hypoglycemia protocol in place. Infectious Disease: Trend temperature. Panculture if febrile. Continue antibiotic ointment Hematology and Coagulation: No active bleeding, no coagulopathy to correct, no need to transfuse blood products at the moment. Goal hemoglobin >7g PROPHYLAXIS DVT- SCDs GI- Home medication CODE STATUS: FULL CODE DISPOSITION: Patient will be remain admitted to ICU for CIWA protocol and repletion of electrolytes.
[2019-07-13] MEDS: Mirtazapine 15 MG Tab PO SCH (20:40)
[2019-07-13] MEDS: Simvastatin 20 MG Tab PO SCH (20:40)
[2019-07-13] MEDS: Losartan 25 MG Tab PO SCH (20:40)
[2019-07-13] MEDS ORDERED: Dextrose 5%-Lactated Ringers 1,000 ML IV SCH (23:00)
[2019-07-14] MEDS ORDERED: Haloperidol Lactate 5 MG/ML SDV IVPUSH ONE (00:09)
[2019-07-14] MEDS ORDERED: Acetaminophen 325 MG/10.15 ML ML PO ONE (00:10)
[2019-07-14] MEDS ORDERED: Acetaminophen 325 MG Tab PO ONE (00:12)
[2019-07-14] MEDS ORDERED: Haloperidol Lactate 5 MG/ML SDV ONE ×2 (00:19→07:20)
[2019-07-14] MEDS ORDERED: Acetaminophen 325 MG Tab ONE (00:20)
[2019-07-14] MEDS: LORazepam 2 MG/ML SDV IV SCH ×6 (01:03→23:50)
[2019-07-14] MEDS: Sucralfate 1 GM Tab PO SCH ×4 (06:52→21:00)
[2019-07-14] MEDS: Pantoprazole 40 MG Tab.CR PO SCH (06:52)
[2019-07-14] MEDS ORDERED: Haloperidol Lactate 5 MG/ML SDV IM ONE (07:30)
[2019-07-14] MEDS: Magnesium Oxide 400 MG Tab PO SCH (08:16)
[2019-07-14] MEDS: Folic Acid 1 MG Tab PO SCH (08:16)
[2019-07-14] MEDS: Dexamethasone/Neomycin/Polymyxin B Ophth Oint 3.5 GM Tube EYEBOTH SCH ×3 (08:16→20:44)
[2019-07-14] MEDS: Naltrexone 50 MG Tab PO SCH (08:16)
[2019-07-14] MEDS: DULoxetine 30 MG Cap PO SCH (08:16)
[2019-07-14] MEDS: Magnesium Sulfate/Water 4 GM in Premix Bag 1 BAG IV SCH ×2 (10:49→14:49)
[2019-07-14] MEDS: Lactated Ringers 1,000 ML IV SCH (10:53)
[2019-07-14] MEDS ORDERED: Potassium Phosphates 30 MMOLE in Sodium Chloride 0.9% 500 ML IV ONE (11:30)
--- NOTE | 2019-07-14 13:46 | PCM.PN ---
- General Info Date of Service: 07/14/19 Subjective Update: INTERVAL HISTORY Overnight Events: - Patient had 104 fever with CIWA of 20, no infectious source likely secondary to inadequate CIWA estimation and treatment - Required 2x Haldol dose to calm down - Hallucinated overnight again - Ate ok - BM today Vital Signs: BP trend: 121-136/63-93 HR trend: 101-159 Tmax: 104 SatO2:>93% on RA EtOH: CIWA trend: 11-21 5 x 2mg Ativan/24 h 2x1mg Ativan/24h Drips: LR at 75 I/Os: UO: 4,385 24h balance: -1,604 Balance since admission: +214 New results: PO4 1.9-->2.3 Mg 1.6 - - Patient Data Vitals - Most Recent: Last Vital Signs Temp 98.2 F 07/14/19 12:00 Pulse 101 H 07/13/19 04:00 Resp 20 07/14/19 12:00 BP 104/69 07/14/19 12:00 Pulse Ox 94 L 07/14/19 12:00 Weight - Most Recent: 55.111 kg - Exam General: Other (eyes closed and refuses to open them adnd shakes her head when asked anything) Neck: Supple, Trachea Midline, No JVD, No Thyromegaly Lungs: Decreased Breath Sounds. No: Crackles, Rales, Rhonchi, Rub, Stridor, Wheezing Cardiovascular: Regular Rhythm, Tachycardia. No: Murmurs, Gallops, Rubs GI/Abdominal Exam: Normal Bowel Sounds, Soft, Non-Tender, Rigid. No: Distended , Guarding, Rebound Extremities: Normal Inspection, Slow Capillary Refill Peripheral Pulses: 3+: Radial (L), Radial (R) Skin: Dry, Cool Sepsis Event Note - Evaluation Sepsis Screening Result: No Definite Risk - Problem List & Annotations (1) Alcohol withdrawal syndrome SNOMED Code(s): 072726267 Code(s): F10.239 - ALCOHOL DEPENDENCE WITH WITHDRAWAL, UNSPECIFIED Status: Acute Current Visit: No Qualifiers: Complication of substance-induced condition: uncomplicated Qualified Code(s ): F10.230 - Alcohol dependence with withdrawal, uncomplicated (2) Acute alcohol intoxication SNOMED Code(s): 86902692, 47083042 Code(s): F10.929 - ALCOHOL USE, UNSPECIFIED WITH INTOXICATION, UNSPECIFIED Status: Acute Current Visit: Yes Qualifiers: Complication of substance-induced condition: uncomplicated Qualified Code(s ): F10.920 - Alcohol use, unspecified with intoxication, uncomplicated (3) Alcohol abuse SNOMED Code(s): 29812654 Code(s): F10.10 - ALCOHOL ABUSE, UNCOMPLICATED Status: Acute Current Visit: Yes (4) Bacterial conjunctivitis of both eyes SNOMED Code(s): 255098882 Code(s): H10.9 - UNSPECIFIED CONJUNCTIVITIS Status: Acute Current Visit: Yes (5) Hyponatremia SNOMED Code(s): 64610649 Code(s): E87.1 - HYPO-OSMOLALITY AND HYPONATREMIA Status: Acute Current Visit: Yes (6) Hypokalemia SNOMED Code(s): 95316691 Code(s): E87.6 - HYPOKALEMIA Status: Acute Current Visit: Yes (7) Hypomagnesemia SNOMED Code(s): 951662101 Code(s): E83.42 - HYPOMAGNESEMIA Status: Acute Current Visit: Yes (8) Hypoalbuminemia SNOMED Code(s): 222355471 Code(s): E88.09 - OTH DISORDERS OF PLASMA-PROTEIN METABOLISM, NEC Status: Acute Current Visit: Yes (9) Hypocalcemia SNOMED Code(s): 9549704 Code(s): E83.51 - HYPOCALCEMIA Status: Acute Current Visit: Yes (10) Hypertension SNOMED Code(s): 91144774 Code(s): I10 - ESSENTIAL (PRIMARY) HYPERTENSION Status: Acute Current Visit: No (11) Anxiety disorder SNOMED Code(s): 413534887 Code(s): F41.9 - ANXIETY DISORDER, UNSPECIFIED Status: Acute Current Visit: Yes Qualifiers: Anxiety disorder type: generalized anxiety disorder Qualified Code(s): F41.1 - Generalized anxiety disorder (12) Bipolar disorder SNOMED Code(s): 27626711 Code(s): F31.9 - BIPOLAR DISORDER, UNSPECIFIED Status: Acute Current Visit: Yes (13) Leukocytosis SNOMED Code(s): 472628308 Code(s): D72.829 - ELEVATED WHITE BLOOD CELL COUNT, UNSPECIFIED Status: Acute Current Visit: No (14) Anemia SNOMED Code(s): 296743641 Code(s): D64.9 - ANEMIA, UNSPECIFIED Status: Acute Current Visit: Yes Qualifiers: Anemia type: unspecified type Qualified Code(s): D64.9 - Anemia, unspecified (15) Thrombocytopenia SNOMED Code(s): 429457035 Code(s): D69.6 - THROMBOCYTOPENIA, UNSPECIFIED Status: Acute Current Visit: Yes (16) Anorexia SNOMED Code(s): 39225586 Code(s): R63.0 - ANOREXIA Status: Acute Current Visit: No (17) Asthma SNOMED Code(s): 814406052 Code(s): J45.909 - UNSPECIFIED ASTHMA, UNCOMPLICATED Status: Acute Current Visit: No (18) Dyslipidemia SNOMED Code(s): 030125836 Code(s): E78.5 - HYPERLIPIDEMIA, UNSPECIFIED Status: Acute Current Visit : No (19) Sinus tachycardia SNOMED Code(s): 21140747 Code(s): R00.0 - TACHYCARDIA, UNSPECIFIED Status: Acute Current Visit: Yes (20) Major depressive disorder SNOMED Code(s): 202125100 Code(s): F32.9 - MAJOR DEPRESSIVE DISORDER, SINGLE EPISODE, UNSPECIFIED Status: Acute Current Visit: Yes (21) Post traumatic stress disorder SNOMED Code(s): 29300672 Code(s): F43.10 - POST-TRAUMATIC STRESS DISORDER, UNSPECIFIED Status: Acute Current Visit: Yes - Problem List Review Problem List Initiated/Reviewed/Updated: Yes - Plan Plan:: ASSESSMENT BY DAY Day 1 - Came in after 8 day drinking binge with vodka, last drink night before admission - Missed counseling appointment this week - Denies SI or HI - Bacterial conjunctivitis for unknown time - Found to have multiple metabolic derangements on admission, hyponatremia, hypokalemia, hypomagnesemia - Admitted for CIWA protocol Day 2 - CIWA trend between 11-20 - Magnesium and phosphate normal - K still low from 2.9 --> 2.6 - Tachycardic, HR trend 120-130 - BP trend 132-142/75-89 Day 3 - Continues to have high CIWA scored requiring 7 doses of ATivan total in the past 24 hours - Overnight patient's CIWA was not calculated appropriately so she was not given the Ativan she required for which she developed a fever - Blood cultures were drawn and she responded to Tylenol - New labs without significant changes - Eating OK and taking medications - Has been awake most of the night PLAN BY SYSTEMS: Neurology: Continue CIWA protocol Minimize central acting medications as possible. Frequent neurologic exams by nursing staff. Continue Duloxetine, Naltrexone, Remeron Start Valium Respiratory: Aspiration precautions. Cardiovascular: Continue IVF Metoprolol for tachycardia PRN GI and Nutrition: Continue diet PRN bowel regimen. Kidney and Electrolytes: Strict monitoring of intake, output and overall fluid balance. Maintain neutral as possible. Monitor electrolytes and replace as needed. Trend creatinine and BUN. Jeffries catheter care Replace electrolytes Endocrine: Scheduled Accu-checks. Hypoglycemia protocol in place. Infectious Disease: Trend temperature. Panculture if febrile. Continue antibiotic ointment Hematology and Coagulation: No active bleeding, no coagulopathy to correct, no need to transfuse blood products at the moment. Goal hemoglobin >7g PROPHYLAXIS DVT- SCDs GI- Home medication CODE STATUS: FULL CODE DISPOSITION: Patient will be downgraded to medical floor for CIWA protocol and repletion of electrolytes. Requiring admission greater than 96 hours due to suboptimal response to treatment.
[2019-07-14] MEDS: Losartan 25 MG Tab PO SCH (20:42)
[2019-07-14] MEDS: Simvastatin 20 MG Tab PO SCH (20:43)
[2019-07-14] MEDS: Mirtazapine 15 MG Tab PO SCH (20:43)
[2019-07-14] MEDS ORDERED: OLANZapine 5 MG Tab PO SCH (21:00)
[2019-07-14] MEDS: Diazepam 5 MG Tab PO SCH (21:09)
[2019-07-15] MEDS: Lactated Ringers 1,000 ML IV SCH (00:22)
[2019-07-15] MEDS: LORazepam 2 MG/ML SDV IV SCH ×4 (01:51→08:55)
[2019-07-15] MEDS: Diazepam 5 MG Tab PO SCH (04:00)
[2019-07-15] MEDS: Pantoprazole 40 MG Tab.CR PO SCH (06:01)
[2019-07-15] MEDS: Sucralfate 1 GM Tab PO SCH ×2 (06:10→10:59)
[2019-07-15 07:53] VITALS: BP 136/64; PULSE 116
[2019-07-15] MEDS: Naltrexone 50 MG Tab PO SCH (08:18)
[2019-07-15] MEDS: Folic Acid 1 MG Tab PO SCH (08:18)
[2019-07-15] MEDS: DULoxetine 30 MG Cap PO SCH (08:18)
[2019-07-15] MEDS ORDERED: Diazepam 5 MG Tab PO ONE (08:30)
--- NOTE | 2019-07-15 08:42 | PCM.PN ---
- General Info Date of Service: 07/15/19 Admission Dx/Problem (Free Text): Admission Diagnosis/Problem Admission Diagnosis/Problem Alcohol withdrawal syndrome - Patient Data Vitals - Most Recent: Last Vital Signs Temp 98.4 F 07/15/19 07:50 Pulse 116 H 07/15/19 07:50 Resp 20 07/15/19 07:50 BP 136/64 07/15/19 07:50 Pulse Ox 94 L 07/15/19 07:50 Weight - Most Recent: 122 lb 6.4 oz I&O - Last 24 Hours: Intake & Output 07/14/19 07/15/19 07/15/19 22:59 06:59 14:59 Intake Total 2237 1260 Output Total 450 750 Balance 1787 510 Chance Results Last 24 Hours: Microbiology 07/14/19 03:28 Aerobic Blood Culture - Preliminary Blood - Venous - Lab Draw NO GROWTH AFTER 1 DAY Anaerobic Blood Culture - Final 07/14/19 03:35 Aerobic Blood Culture - Preliminary Blood - Venous NO GROWTH AFTER 1 DAY Anaerobic Blood Culture - Final Med Orders - Current: Current Medications Diazepam (Valium.) 10 mg PO Q8HR [facility] Duloxetine HCl (Cymbalta) 30 mg PO DAILY [facility] Last Admin: 07/15/19 08:18 Dose: 30 mg Folic Acid (Folic Acid) 1 mg PO DAILY [facility] Last Admin: 07/15/19 08:18 Dose: 1 mg Lactated Ringer's (Ringers, Lactated) 1,000 mls @ 75 mls/hr IV ASDIRECTED STEPHANE Last Admin: 07/15/19 00:22 Dose: 75 mls/hr Lorazepam (Ativan) 0 mg IV ASDIRECTED [facility]; Protocol Last Admin: 07/15/19 04:50 Dose: 2 mg Losartan Potassium (Cozaar) 12.5 mg PO BEDTIME [facility] Last Admin: 07/14/19 20:42 Dose: 12.5 mg Mirtazapine (Remeron) 15 mg PO BEDTIME [facility] Last Admin: 07/14/19 20:43 Dose: 15 mg Naltrexone HCl (Naltrexone) 50 mg PO DAILY [facility] Last Admin: 07/15/19 08:18 Dose: 50 mg Neomycin/Polymyxin/Dexamethasone (Maxitrol Ophth Oint) 0 gm EYEBOTH TID [facility] Last Admin: 07/14/19 20:44 Dose: 1 applic Olanzapine (Zyprexa) 10 mg PO BEDTIME [facility] Last Admin: 07/14/19 21:08 Dose: 10 mg Ondansetron HCl (Zofran Odt) 4 mg PO Q6H PRN PRN Reason: nausea, able to take PO Ondansetron HCl (Zofran) 4 mg IV Q6H PRN PRN Reason: Nausea/Vomiting Last Admin: 07/13/19 21:51 Dose: 4 mg Pantoprazole Sodium (Protonix) 40 mg PO DAILY@0700 [facility] Last Admin: 07/15/19 06:01 Dose: 40 mg Simvastatin (Zocor) 20 mg PO BEDTIME [facility] Last Admin: 07/14/19 20:43 Dose: 20 mg Sucralfate (Carafate) 1 gm PO QIDACANDBED [facility] Last Admin: 07/15/19 06:10 Dose: 1 gm Discontinued Medications Acetaminophen (Tylenol) 325 mg PO ONETIME ONE Stop: 07/14/19 00:11 Last Admin: 07/14/19 00:16 Dose: Not Given Acetaminophen (Tylenol) 325 mg PO NOW ONE Stop: 07/14/19 00:13 Last Admin: 07/14/19 00:21 Dose: 325 mg Acetaminophen (Tylenol) Confirm Administered Dose 325 mg .ROUTE .STK-MED ONE Stop: 07/14/19 00:21 Last Admin: 07/14/19 01:41 Dose: Not Given Diazepam (Valium.) 5 mg PO Q8H [facility] Last Admin: 07/15/19 04:00 Dose: 5 mg Diazepam (Valium.) 5 mg PO ONETIME ONE Stop: 07/15/19 08:31 Famotidine (Pepcid) 20 mg PO ONETIME ONE Stop: 07/12/19 16:56 Last Admin: 07/12/19 17:02 Dose: 20 mg Folic Acid (Folic Acid) 1 mg IV DAILY [facility] Folic Acid (Folic Acid) 1 mg PO ONETIME ONE Stop: 07/11/19 04:17 Last Admin: 07/11/19 04:20 Dose: 1 mg Haloperidol Lactate (Haldol) 2 mg IVPUSH ONETIME ONE Stop: 07/13/19 03:55 Last Admin: 07/13/19 04:00 Dose: 2 mg Haloperidol Lactate (Haldol) Confirm Administered Dose 5 mg .ROUTE .STK-MED ONE Stop: 07/13/19 03:57 Last Admin: 07/13/19 04:00 Dose: Not Given Haloperidol Lactate (Haldol) 2 mg IVPUSH ONETIME ONE Stop: 07/14/19 00:10 Last Admin: 07/14/19 00:21 Dose: 2 mg Haloperidol Lactate (Haldol) Confirm Administered Dose 5 mg .ROUTE .[facility] ONE Stop: 07/14/19 00:20 Last Admin: 07/14/19 01:41 Dose: Not Given Haloperidol Lactate (Haldol) 2 mg IM ONETIME ONE Stop: 07/14/19 07:31 Last Admin: 07/14/19 07:24 Dose: 2 mg Haloperidol Lactate (Haldol) Confirm Administered Dose 5 mg .ROUTE .[facility] ONE Stop: 07/14/19 07:21 Last Admin: 07/14/19 07:25 Dose: Not Given Sodium Chloride (Normal Saline) 1,000 mls @ 1,000 mls/hr IV ASDIRECTED [facility] Last Admin: 07/11/19 03:57 Dose: 1,000 mls/hr Magnesium Sulfate 2 gm/ Premix 50 mls @ 25 mls/hr IV ONETIME ONE Stop: 07/11/19 06:56 Last Admin: 07/11/19 05:00 Dose: 25 mls/hr Potassium Chloride/Sodium Chloride (Normal Saline With 20 Meq Kcl) 1,000 mls @ 500 mls/hr IV ASDIRECTED [facility] Last Admin: 07/11/19 05:49 Dose: 500 mls/hr Thiamine HCl 1,000 mg/Magnesium Sulfate 4 gm/ Folic Acid 1 mg/ Dextrose/Sodium Chloride 1,018.2 mls @ 125 mls/hr IV ASDIRECTED [facility] Thiamine HCl 1,000 mg/Magnesium Sulfate 4 gm/ Folic Acid 1 mg/ Dextrose/Sodium Chloride 1,018.2 mls @ 125 mls/hr IV DAILY [facility] Stop: 07/12/19 17:09 Last Admin: 07/12/19 08:53 Dose: 125 mls/hr Potassium Chloride 10 meq/ (Premix) 100 mls @ 100 mls/hr IV Q1H [facility] Stop: 07/12/19 15:29 Last Admin: 07/12/19 17:29 Dose: 75 mls/hr Dextrose/Lactated Ringer's (Dextrose 5%-Lactated Ringers) 1,000 mls @ 100 mls/ hr IV ASDIRECTED [facility] Stop: 07/13/19 13:00 Last Admin: 07/13/19 02:59 Dose: 100 mls/hr Magnesium Sulfate 4 gm/ Premix 50 mls @ 12.5 mls/hr IV ONETIME ONE Stop: 07/13/19 13:38 Last Admin: 07/13/19 09:51 Dose: 12.5 mls/hr Potassium Chloride 10 meq/ (Premix) 100 mls @ 100 mls/hr IV Q1H [facility] Stop: 07/13/19 13:44 Last Admin: 07/13/19 12:48 Dose: 100 mls/hr Potassium Chloride 80 meq/ (Dextrose/Lactated Ringer's) 1,040 mls @ 104 mls/hr IV ONETIME ONE Stop: 07/13/19 23:59 Last Admin: 07/13/19 14:00 Dose: 104 mls/hr Dextrose/Lactated Ringer's (Dextrose 5%-Lactated Ringers) 1,000 mls @ 100 mls/ hr IV ASDIRECTED [facility] Last Admin: 07/14/19 00:25 Dose: 100 mls/hr Magnesium Sulfate 4 gm/ Premix 50 mls @ 12.5 mls/hr IV Q4H [facility] Stop: 07/14/19 18:59 Last Admin: 07/14/19 14:49 Dose: 12.5 mls/hr Potassium Phosphate 30 mmole/ (Sodium Chloride) 510 mls @ 102 mls/hr IV ONETIME ONE Stop: 07/14/19 16:29 Last Admin: 07/14/19 11:08 Dose: 102 mls/hr Loperamide HCl (Imodium) 4 mg PO ONETIME ONE Stop: 07/12/19 21:47 Last Admin: 07/12/19 21:56 Dose: 4 mg Lorazepam (Ativan) 1 mg IVPUSH ONETIME ONE Stop: 07/11/19 04:22 Last Admin: 07/11/19 04:25 Dose: 1 mg Lorazepam (Ativan) Confirm Administered Dose 2 mg .ROUTE .STK-MED ONE Stop: 07/11/19 04:24 Last Admin: 07/11/19 04:57 Dose: Not Given Magnesium Oxide (Magnesium Oxide) 200 mg PO DAILY [facility] Last Admin: 07/14/19 08:16 Dose: 200 mg Metoprolol Tartrate (Lopressor) 5 mg IVPUSH ONETIME ONE Stop: 07/13/19 03:56 Last Admin: 07/13/19 04:00 Dose: 5 mg Miscellaneous Information (Remove Patch) 1 ea TRDERM DAILY [facility] Last Admin: 07/12/19 09:05 Dose: Not Given Nicotine (Habitrol) 21 mg TRDERM DAILY [facility] Last Admin: 07/12/19 08:27 Dose: Not Given Pantoprazole Sodium (Protonix Iv) 40 mg IVPUSH ONETIME ONE Stop: 07/11/19 05:39 Last Admin: 07/11/19 05:49 Dose: 40 mg Pantoprazole Sodium (Protonix) 40 mg PO DAILY@0700 [facility] Pantoprazole Sodium (Protonix) 40 mg PO DAILY [facility] Sucralfate (Carafate) 1 gm PO QIDACANDBED [facility] Last Admin: 07/12/19 21:03 Dose: 1 gm Thiamine HCl (Vitamin B-1) 100 mg IVPUSH ONETIME ONE Stop: 07/11/19 04:10 Last Admin: 07/11/19 04:19 Dose: 100 mg Sepsis Event Note - Evaluation Sepsis Screening Result: No Definite Risk - Focused Exam Vital Signs: Vital Signs Temp Pulse Pulse Resp BP BP Pulse Ox 07/15/19 07:50 98.4 F 116 H 20 136/64 94 L 07/15/19 03:41 106 H 94 L 07/15/19 03:19 98.2 F 115 H 20 153/87 H 86 L 07/14/19 23:57 135/89 07/14/19 23:01 98.4 F 111 H 20 155/91 H 97 Date Exam was Performed: 07/15/19 Time Exam was Performed: 08:42 - Plan Plan:: ASSESSMENT BY DAY Day 1 - Came in after 8 day drinking binge with vodka, last drink night before admission - Missed counseling appointment this week - Denies SI or HI - Bacterial conjunctivitis for unknown time - Found to have multiple metabolic derangements on admission, hyponatremia, hypokalemia, hypomagnesemia - Admitted for CIWA protocol Day 2 - CIWA trend between 11-20 - Magnesium and phosphate normal - K still low from 2.9 --> 2.6 - Tachycardic, HR trend 120-130 - BP trend 132-142/75-89 PLAN BY SYSTEMS: Neurology: Continue CIWA protocol Minimize central acting medications as possible. Daily sedation vacation. Frequent neurologic exams by nursing staff. Restart home medications Psychiatry consult Respiratory: Aspiration precautions. Cardiovascular: Continue IVF Metoprolol for tachycardia PRN GI and Nutrition: Continue diet PRN bowel regimen. Kidney and Electrolytes: Strict monitoring of intake, output and overall fluid balance. Maintain neutral as possible. Monitor electrolytes and replace as needed. Trend creatinine and BUN. Jeffries catheter care Endocrine: Scheduled Accu-checks. Hypoglycemia protocol in place. Infectious Disease: Trend temperature. Panculture if febrile. Continue antibiotic ointment Hematology and Coagulation: No active bleeding, no coagulopathy to correct, no need to transfuse blood products at the moment. Goal hemoglobin >7g PROPHYLAXIS DVT- SCDs GI- Home medication CODE STATUS: FULL CODE DISPOSITION: Patient will be remain admitted to ICU for CIWA protocol and repletion of electrolytes.
[2019-07-15] MEDS: Dexamethasone/Neomycin/Polymyxin B Ophth Oint 3.5 GM Tube EYEBOTH SCH (08:55)
--- NOTE | 2019-07-15 10:40 | PCM.DCSUM1 ---
Discharge Summary - Hospital Course HPI Initial Comments: This is a 63-year-old female who presents to the ED stating that she came in because she was scared to be at home and falling. As per patient 8 days ago she started drinking again 6-8 "airplane size bottles of vodka"/day. At the same time she stopped eating because of loss of appetite and stopped taking most of her medications except for potassium and Sucralfate. When asked why she did this, she states " I'm sad" Last alcoholic drink was evening. Patient has a long history of chronic alcoholism and a severe anxiety disorder. She has completed numerous rehabilitation stays for her alcoholism with the most recent being at [facility] with a discharge on 11/22/2018. She also has weekly appointments for counseling, however she missed this week. She denies any history of DTs or withdrawal induced seizures. - Discharge Data Discharge Date: 07/15/19 Discharge Disposition: DC/Tfer to Acute Hospital 02 Condition: Good - Referral to Home Health Primary Care Physician: Renard Verduzco MD - Discharge Diagnosis/Problem(s) (1) Alcohol withdrawal syndrome SNOMED Code(s): 990803241 ICD Code: F10.239 - ALCOHOL DEPENDENCE WITH WITHDRAWAL, UNSPECIFIED Status : Acute Current Visit: No Qualifiers: Complication of substance-induced condition: uncomplicated Qualified Code(s ): F10.230 - Alcohol dependence with withdrawal, uncomplicated (2) Acute alcohol intoxication SNOMED Code(s): 08496767, 98821075 ICD Code: F10.929 - ALCOHOL USE, UNSPECIFIED WITH INTOXICATION, UNSPECIFIED Status: Acute Current Visit: Yes Qualifiers: Complication of substance-induced condition: uncomplicated Qualified Code(s ): F10.920 - Alcohol use, unspecified with intoxication, uncomplicated (3) Alcohol abuse SNOMED Code(s): 00539635 ICD Code: F10.10 - ALCOHOL ABUSE, UNCOMPLICATED Status: Acute Current Visit: Yes (4) Bacterial conjunctivitis of both eyes SNOMED Code(s): 014111726 ICD Code: H10.9 - UNSPECIFIED CONJUNCTIVITIS Status: Acute Current Visit : Yes (5) Hyponatremia SNOMED Code(s): 43078297 ICD Code: E87.1 - HYPO-OSMOLALITY AND HYPONATREMIA Status: Acute Current Visit: Yes (6) Hypokalemia SNOMED Code(s): 14646355 ICD Code: E87.6 - HYPOKALEMIA Status: Acute Current Visit: Yes (7) Hypomagnesemia SNOMED Code(s): 513182461 ICD Code: E83.42 - HYPOMAGNESEMIA Status: Acute Current Visit: Yes (8) Hypoalbuminemia SNOMED Code(s): 171447569 ICD Code: E88.09 - OTH DISORDERS OF PLASMA-PROTEIN METABOLISM, NEC Status: Acute Current Visit: Yes (9) Hypocalcemia SNOMED Code(s): 6902241 ICD Code: E83.51 - HYPOCALCEMIA Status: Acute Current Visit: Yes (10) Hypertension SNOMED Code(s): 41954625 ICD Code: I10 - ESSENTIAL (PRIMARY) HYPERTENSION Status: Acute Current Visit: No (11) Anxiety disorder SNOMED Code(s): 205541547 ICD Code: F41.9 - ANXIETY DISORDER, UNSPECIFIED Status: Acute Current Visit: Yes Qualifiers: Anxiety disorder type: generalized anxiety disorder Qualified Code(s): F41.1 - Generalized anxiety disorder (12) Bipolar disorder SNOMED Code(s): 08160781 ICD Code: F31.9 - BIPOLAR DISORDER, UNSPECIFIED Status: Acute Current Visit: Yes (13) Leukocytosis SNOMED Code(s): 689830593 ICD Code: D72.829 - ELEVATED WHITE BLOOD CELL COUNT, UNSPECIFIED Status: Acute Current Visit: No (14) Anemia SNOMED Code(s): 862177000 ICD Code: D64.9 - ANEMIA, UNSPECIFIED Status: Acute Current Visit: Yes Qualifiers: Anemia type: unspecified type Qualified Code(s): D64.9 - Anemia, unspecified (15) Thrombocytopenia SNOMED Code(s): 976297207 ICD Code: D69.6 - THROMBOCYTOPENIA, UNSPECIFIED Status: Acute Current Visit: Yes (16) Anorexia SNOMED Code(s): 48160233 ICD Code: R63.0 - ANOREXIA Status: Acute Current Visit: No (17) Asthma SNOMED Code(s): 574120306 ICD Code: J45.909 - UNSPECIFIED ASTHMA, UNCOMPLICATED Status: Acute Current Visit: No (18) Dyslipidemia SNOMED Code(s): 503129702 ICD Code: E78.5 - HYPERLIPIDEMIA, UNSPECIFIED Status: Acute Current Visit : No (19) Sinus tachycardia SNOMED Code(s): 10724601 ICD Code: R00.0 - TACHYCARDIA, UNSPECIFIED Status: Acute Current Visit: Yes (20) Major depressive disorder SNOMED Code(s): 264930354 ICD Code: F32.9 - MAJOR DEPRESSIVE DISORDER, SINGLE EPISODE, UNSPECIFIED Status: Acute Current Visit: Yes (21) Post traumatic stress disorder SNOMED Code(s): 90388657 ICD Code: F43.10 - POST-TRAUMATIC STRESS DISORDER, UNSPECIFIED Status: Acute Current Visit: Yes - Patient Summary/Data Hospital Course: ASSESSMENT BY DAY Day 1 - Came in after 8 day drinking binge with vodka, last drink night before admission - Missed counseling appointment this week - Denies SI or HI - Bacterial conjunctivitis for unknown time - Found to have multiple metabolic derangements on admission, hyponatremia, hypokalemia, hypomagnesemia - Admitted for CIWA protocol - Banana bag #1 given Day 2 - CIWA trend between - - Magnesium and phosphate normal - K still low from 2.9 --> 2.6 - Tachycardic, HR trend 120-130 - BP trend 132-142/75-89 - Evaluated by psychiatry who recommends inpatient rehab at discharge and started patient on Remeron - Restarted home medications, Cymbalta and naltrexone - Banana bag #2 given Day 3 - CIWA trend between - - Continues to have high CIWA scores requiring 7 doses of Ativan total in the past 24 hours - Patient started hallucinating, was very agitated with CIWAs between 16-17 not responding to Ativan - Haldol dose was given to which she responded and fell asleep - Eating OK and taking medications - Has been awake most of the night - Started Valium and Olanzapine Day 4 - Overnight patient's CIWA was not calculated appropriately so she was not given the Ativan she required for which she developed a fever - Blood cultures were drawn and she responded to Tylenol - New labs without significant changes - Required Haldol x 2 doses as well - Downgraded from ICU - Required 8 doses of 2mg of Ativan in past 24 hours - CIWA trend - Day 5 - Eating OK - Required 7 doses of Ativan in past 24 hours, 5 of 2mg and 2 of 1mg - Increased Valium dose - CIWA trend - - Transferred to inpatient service in [place] for continued alcohol withdrawal management and possible transfer to inpatient rehab after that - Patient Instructions Diet: Usual Diet as Tolerated Activity: As Tolerated - Discharge Plan *PRESCRIPTION DRUG MONITORING PROGRAM REVIEWED*: Not Applicable *COPY OF PRESCRIPTION DRUG MONITORING REPORT IN PATIENT ANTHONY: Not Applicable Home Medications: Home Meds Fluticasone Propion/Salmeterol [Advair 250-50 Diskus] 1 puff IH DAILY 05/24/16 [ History] atorvaSTATin [Lipitor] 20 mg PO DAILY 05/24/16 [History] Albuterol Sulfate [Albuterol Sulfate Hfa] 2 puff PO Q4HR PRN 12/22/18 [History] DULoxetine [Cymbalta] 30 mg PO DAILY 12/22/18 [History] Losartan [Cozaar] 12.5 mg PO DAILY 12/22/18 [History] Omeprazole 20 mg PO ACBREAKFAST 12/22/18 [History] Potassium Chloride 20 meq PO DAILY 12/22/18 [History] Sucralfate [Carafate] 1 gm PO QID 12/22/18 [History] Folic Acid 1 mg PO DAILY #30 tablet 12/23/18 [Rx] Naltrexone 50 mg PO DAILY #30 tablet 12/23/18 [Rx] Thiamine [Vitamin B-1] 100 mg PO BEDTIME #30 tab 12/23/18 [Rx] Cranberry Fruit Extract [Cranberry] 0 mg PO DAILY 04/01/19 [History] Lutein/Minerals/Vit A,C & E [Ocuvite] 1 tab PO DAILY 04/01/19 [History] Magnesium 200 mg PO DAILY #30 tablet 04/01/19 [Rx] Montelukast [Singulair] 10 mg PO BEDTIME 04/01/19 [History] Ondansetron [Zofran ODT] 4 mg PO Q6H PRN #20 tab.dis 04/01/19 [Rx] Dexameth/Neomy/Polymyx B [Maxitrol Ophth Oint] 0 gm EYEBOTH TID tube 07/15/19 [ Rx] Lactated Ringers [Ringers, Lactated] 75 ml IV ASDIRECTED bag 07/15/19 [Rx] Mirtazapine [Remeron] 15 mg PO BEDTIME tablet 07/15/19 [Rx] OLANZapine [ZyPREXA] 10 mg PO BEDTIME tablet 07/15/19 [Rx] diazePAM [Valium] 10 mg PO Q8HR tablet 07/15/19 [Rx] Patient Handouts: Alcohol Use Disorder Referrals: Renard Verduzco MD [Primary Care Provider] - - Discharge Summary/Plan Comment DC Time >30 min.: Yes (coordinating transfer to [place]) - General Info Date of Service: 07/15/19 Subjective Update: INTERVAL HISTORY Overnight Events: - CIWA trend 5-21 - Did not sleep at all throughout the night Vital Signs: BP trend: 104-155/69-93 HR trend: 103-116 Tmax: 104 SatO2:>93% on RA EtOH: CIWA trend: 5-21 5 x 2mg Ativan/24 h 2x1mg Ativan/24h Haldol PRN x 2 doses Drips: LR at 75 I/Os: UO:2,290 24h balance: +888 Balance since admission: +1,002 - Patient Data Vitals - Most Recent: Last Vital Signs Temp 98.4 F 07/15/19 07:50 Pulse 116 H 07/15/19 07:50 Resp 20 07/15/19 07:50 BP 136/64 07/15/19 07:50 Pulse Ox 94 L 07/15/19 07:50 Weight - Most Recent: 55.111 kg - Exam General: Reports: No Acute Distress, Sedated HEENT: Reports: Mucous Membr. Moist/[place] Neck: Reports: Trachea Midline, No JVD, No Thyromegaly Lungs: Reports: Clear to Auscultation, Crackles. Denies: Rales, Rhonchi, Rub, Stridor, Wheezing Cardiovascular: Reports: Regular Rhythm, Tachycardia. Denies: Murmurs, Gallops , Rubs GI/Abdominal Exam: Normal Bowel Sounds, Soft, Non-Tender, Guarding, Rigid. No: Distended Extremities: Normal Inspection, Slow Capillary Refill Skin: Reports: Dry, Cool
[2019-07-15] MEDS ORDERED: Diazepam 5 MG Tab PO SCH (14:00)
== END 2019-07-15 11:30 | DRG 775 ==
LOC: JD.ED 03:31 → JD.ICU 07:53 → EEVIPCON 07:53 → JD.MS 07-14 20:50
PROVIDERS: ADMIT Internal Medicine; ATTEND Internal Medicine
DX: F10.230 Alcohol dependence with withdrawal, uncomplicated (principal); F10.220 Alcohol dependence with intoxication, uncomplicated; H10.9 Unspecified conjunctivitis; E87.1 Hypo-osmolality and hyponatremia; E87.6 Hypokalemia; E83.42 Hypomagnesemia; E83.51 Hypocalcemia; I10 Essential (primary) hypertension; F41.1 Generalized anxiety disorder; F31.9 Bipolar disorder, unspecified; D64.9 Anemia, unspecified; D69.6 Thrombocytopenia, unspecified; R63.0 Anorexia; J45.909 Unspecified asthma, uncomplicated; E78.5 Hyperlipidemia, unspecified; F43.10 Post-traumatic stress disorder, unspecified; H54.7 Unspecified visual loss; E78.00 Pure hypercholesterolemia, unspecified; K21.9 Gastro-esophageal reflux disease without esophagitis; M81.0 Age-related osteoporosis without current pathological fracture; Z79.899 Other long term (current) drug therapy; Z87.440 Personal history of urinary (tract) infections; Z90.49 Acquired absence of other specified parts of digestive tract; Z90.89 Acquired absence of other organs; Z88.1 Allergy status to other antibiotic agents; Z88.5 Allergy status to narcotic agent
CPT/HCPCS: 36415; 51702; 71045; 71045-26; 80048; 80053; 80306; 80307; 81001; 82009; 83605; 83690; 83735; 84100; 84484; 85007; 85025; 85027; 87040; 87070; 87086; 87088; 87181; 87184; 87186; 93005; 93010; 96365; 96366; 96368; 96375; 97162-GP; 97165-GO; 97530-GP; 99285; 99285-25; A9270-GY; C9113; J1630; J2060; J2405; J3411; J3475; J3480; J3490; J7030; J7040; J7042; J7120; J7121

== ENCOUNTER 2019-08-15 12:55 | Inpatient (IN) | payer BC ==
[2019-08-15] MEDS ORDERED: Ondansetron 4 MG/2 ML SDV IVPUSH ONE (13:12)
[2019-08-15] MEDS ORDERED: Thiamine 200 MG/2 ML MDV IVPUSH ONE ×2 (13:14→21:00)
[2019-08-15] MEDS ORDERED: Sodium Chloride 0.9% 1,000 ML IV SCH (13:15)
[2019-08-15] MEDS ORDERED: LORazepam 2 MG/ML SDV IVPUSH ONE (13:21)
[2019-08-15] MEDS: Sodium Chloride 0.9% 10 ML Syringe FLUSH PRN (13:44)
--- NOTE | 2019-08-15 14:57 | EDM.PDOCBH ---
ED HPI GENERAL MEDICAL PROBLEM - General Chief Complaint: Neurological Problem Stated Complaint: [facility] Time Seen by Provider: 08/15/19 12:58 Source of Information: Reports: Patient, EMS History Limitations: Reports: No Limitations - History of Present Illness INITIAL COMMENTS - FREE TEXT/NARRATIVE: The patient presents by [facility] for alcohol withdrawal. The patient has a history of alcohol addiction. She says she spent 10 weeks in [place] for rehab in October. Since she has been outs she had a few relapses. She was in the hospital in June. She was discharged July 14. She says she has been drinking heavily for a few days and her last drink was yesterday at 1pm. She was found by a family member to be unresponsive. She did wake up and they thought she may have had a brief seizure. She is worried she may . She says she does not feel well and she is nauseated. Onset: Gradual Duration: Day(s): Severity: Moderate Improves with: Reports: None Worsens with: Reports: None Associated Symptoms: Reports: Nausea/Vomiting. Denies: Chest Pain, Cough, Fever/Chills, Headaches, Shortness of Breath - Related Data Allergies Allergy/AdvReac Type Severity Reaction Status Date / Time levofloxacin [From Levaquin] Allergy Rash Verified 08/15/19 13:01 propoxyphene napsylate AdvReac Headache Verified 08/15/19 13:01 [From Darvocet-N] quetiapine fumarate AdvReac Confusion Verified 08/15/19 13:01 [From Seroquel] Home Meds: Home Meds Fluticasone Propion/Salmeterol [Advair 250-50 Diskus] 1 puff IH DAILY 05/24/16 [History] atorvaSTATin [Lipitor] 20 mg PO DAILY 05/24/16 [History] Albuterol Sulfate [Albuterol Sulfate Hfa] 2 puff PO Q4HR PRN 12/22/18 [History] DULoxetine [Cymbalta] 30 mg PO DAILY 12/22/18 [History] Losartan [Cozaar] 12.5 mg PO DAILY 12/22/18 [History] Omeprazole 20 mg PO ACBREAKFAST 12/22/18 [History] Potassium Chloride 20 meq PO DAILY 12/22/18 [History] Sucralfate [Carafate] 1 gm PO QID 12/22/18 [History] Folic Acid 1 mg PO DAILY #30 tablet 12/23/18 [Rx] Naltrexone 50 mg PO DAILY #30 tablet 12/23/18 [Rx] Thiamine [Vitamin B-1] 100 mg PO BEDTIME #30 tab 12/23/18 [Rx] Cranberry Fruit Extract [Cranberry] 0 mg PO DAILY 04/01/19 [History] Lutein/Minerals/Vit A,C & E [Ocuvite] 1 tab PO DAILY 04/01/19 [History] Magnesium 200 mg PO DAILY #30 tablet 04/01/19 [Rx] Montelukast [Singulair] 10 mg PO BEDTIME 04/01/19 [History] Ondansetron [Zofran ODT] 4 mg PO Q6H PRN #20 tab.dis 04/01/19 [Rx] Dexameth/Neomy/Polymyx B [Maxitrol Ophth Oint] 0 gm EYEBOTH TID tube 07/15/19 [Rx] Lactated Ringers [Ringers, Lactated] 75 ml IV ASDIRECTED bag 07/15/19 [Rx] Mirtazapine [Remeron] 15 mg PO BEDTIME tablet 07/15/19 [Rx] OLANZapine [ZyPREXA] 10 mg PO BEDTIME tablet 07/15/19 [Rx] diazePAM [Valium] 10 mg PO Q8HR tablet 07/15/19 [Rx] Past Medical History HEENT History: Reports: Impaired Vision Other HEENT History: wears glasses Cardiovascular History: Reports: High Cholesterol, Hypertension Respiratory History: Reports: Asthma Gastrointestinal History: Reports: GERD Genitourinary History: Reports: UTI, Recurrent 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 (See Below) 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: Patient states she started menopause at 54 yoa Neurological History: Reports: Headaches, Chronic Other Neuro History: headaches Psychiatric History: Reports: Addiction, Anxiety, Bipolar, Depression, Eating Disorders Other Psychiatric History: eating disorder at age 14 Endocrine/Metabolic History: Reports: Osteoporosis Hematologic History: Reports: None Immunologic History: Reports: Other (See Below) Other Immunologic History: recurrent staph infections Oncologic (Cancer) History: Reports: None - Infectious Disease History Infectious Disease History: Reports: Chicken Pox, Measles, Mumps - Past Surgical History Head Surgeries/Procedures: Reports: None HEENT Surgical History: Reports: Adenoidectomy, Oral Surgery, Tonsillectomy, Other (See Below) GI Surgical History: Reports: Appendectomy Musculoskeletal Surgical History: Reports: ORIF, Shoulder Surgery, Other (See Below) Other Musculoskeletal Surgeries/Procedures:: wrist ORIF Social & Family History - Family History Family Medical History: Noncontributory Cardiac: Reports: None - Tobacco Use Smoking Status *Q: Never Smoker Second Hand Smoke Exposure: No - Caffeine Use Caffeine Use: Reports: Coffee Other Caffeine Use: Unknown if ever used due to being currently intoxicated. 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 Denies: Fever, Chills HEENT: Reports: No Symptoms Respiratory: Reports: No Symptoms Cardiovascular: Reports: No Symptoms Endocrine: Reports: No Symptoms GI/Abdominal: Reports: Nausea, Vomiting. Denies: Abdominal Pain : Reports: No Symptoms Musculoskeletal: Reports: No Symptoms ED EXAM, BEHAVIORAL HEALTH - Physical Exam Exam: See Below Exam Limited By: No Limitations General Appearance: Alert, No Apparent Distress Ears: Normal External Exam Nose: Normal Inspection Head: Atraumatic, Normocephalic Neck: Normal Inspection Respiratory/Chest: No Respiratory Distress, Lungs Clear, Normal Breath Sounds Cardiovascular: Regular Rate, Rhythm, No Edema, No Murmur GI/Abdominal: Soft, Non-Tender, No Organomegaly Back Exam: Normal Inspection Extremities: Normal Inspection EKG INTERPRETATION EKG Date: 08/15/19 Time: 13:23 Rhythm: Other (sinus tachycardia) Rate (Beats/Min): 104 [place]: Normal P-Wave: Present QRS: Normal ST-T: Normal QT: Normal COURSE, BEHAVIORAL HEALTH COMP - Course Vital Signs: Last Vital Signs Temp 97.8 F 08/15/19 12:57 Pulse 100 08/15/19 12:57 Resp 16 08/15/19 12:57 BP 136/82 08/15/19 12:57 Pulse Ox 99 08/15/19 12:57 Orders, Labs, Meds: Active Orders 24 hr Category Date Time Status Cardiac Monitoring [RC] . DIRECTED Care 08/15/19 13:12 Active EKG Documentation Completion [RC] ASDIRECTED Care 08/15/19 13:21 Active Peripheral IV Care [RC] . DIRECTED Care 08/15/19 13:14 Active DRUG SCREEN, URINE [URCHEM] Stat Lab 08/15/19 13:12 Ordered Magnesium Sulfate/D5W [Magnesium Sulfate in D5W 100 Med 08/15/19 14:30 Active Premix] 1 gm Premix Bag 1 bag IV Q1H Sodium Chloride 0.9% [Normal Saline] 1,000 ml Med 08/15/19 13:15 Active IV .BOLUS Sodium Chloride 0.9% [Saline Flush] Med 08/15/19 13:12 Active 10 ml FLUSH ASDIRECTED PRN ED Antiemetic Medication Reflex [OM.PC] Stat Oth 08/15/19 13:12 Ordered Peripheral IV Insertion Adult [OM.PC] Stat Oth 08/15/19 13:12 Ordered EKG 12 Lead [EK] Stat Ther 08/15/19 13:21 Ordered Medication Orders Sodium Chloride (Normal Saline) 1,000 mls @ 1,000 mls/hr IV .BOLUS STEPHANE Last Admin: 08/15/19 13:42 Dose: 1,000 mls/hr Documented by: MERRILL Magnesium Sulfate/Dextrose 1 (gm/ Premix) 100 mls @ 100 mls/hr IV Q1H STEPHANE Stop: 08/15/19 18:29 Last Admin: 08/15/19 14:45 Dose: 100 mls/hr Documented by: ALBERT Sodium Chloride (Saline Flush) 10 ml FLUSH ASDIRECTED PRN PRN Reason: Keep Vein Open Last Admin: 08/15/19 13:44 Dose: 10 ml Documented by: MERRILL Laboratory Tests 08/15/19 08/15/19 08/15/19 Range/Units 13:35 13:35 13:35 WBC 9.30 (3.98-10.04) K/mm3 RBC 3.82 L (3.98-5.22) M/mm3 Hgb 10.6 L D (11.2-15.7) gm/dl Hct 33.5 L (34.1-44.9) % MCV 87.7 D (79.4-94.8) fl MCH 27.7 (25.6-32.2) pg MCHC 31.6 L (32.2-35.5) g/dl RDW Std Deviation 66.8 H (36.4-46.3) fL Plt Count 191 (182-369) K/mm3 MPV 8.8 L (9.4-12.3) fl Neut % (Auto) 86.8 H (34.0-71.1) % Lymph % (Auto) 7.2 L (19.3-51.7) % [place] % (Auto) 5.6 (4.7-12.5) % Eos % (Auto) 0.1 L (0.7-5.8) Baso % (Auto) 0.2 (0.1-1.2) % Neut # (Auto) 8.07 H (1.56-6.13) K/mm3 Lymph # (Auto) 0.67 L (1.18-3.74) K/mm3 [place] # (Auto) 0.52 H (0.24-0.36) K/mm3 Eos # (Auto) 0.01 L (0.04-0.36) K/mm3 Baso # (Auto) 0.02 (0.01-0.08) K/mm3 Manual Slide Review Normal smear Sodium 138 (136-145) mEq/L Potassium 3.8 (3.5-5.1) mEq/L Chloride 99 (98-107) mEq/L Carbon Dioxide 24 (21-32) mEq/L Anion Gap 18.8 H (5-15) BUN 4 L (7-18) mg/dL Creatinine 0.6 (0.55-1.02) mg/dL Est Cr Clr Drug Dosing 71.21 mL/min Estimated GFR (MDRD) > 60 (>60) mL/min BUN/Creatinine Ratio 6.7 L (14-18) Glucose 85 (80-115) mg/dL Calcium 7.0 L (8.5-10.1) mg/dL Magnesium 0.9 L (1.8-2.4) mg/dl Total Bilirubin 1.1 H (0.2-1.0) mg/dL AST 41 H (15-37) U/L ALT 13 L (14-59) U/L Alkaline Phosphatase 121 H (46-116) U/L Troponin I < 0.017 (0.00-0.056) ng/mL Total Protein 5.3 L (6.4-8.2) g/dl Albumin 2.9 L (3.4-5.0) g/dl Globulin 2.4 gm/dL Albumin/Globulin Ratio 1.2 (1-2) Ethyl Alcohol 0.00 (0.00) gm% Medications Generic Name Dose Route Start Last Admin Trade Name Herreraq PRN Reason Stop Dose Admin Sodium Chloride 1,000 mls @ 1,000 mls/hr 08/15/19 13:15 08/15/19 13:42 Normal Saline IV 1,000 mls/hr .BOLUS STEPHANE Administration Magnesium Sulfate/Dextrose 1 100 mls @ 100 mls/hr 08/15/19 14:30 08/15/19 14:45 gm/ Premix IV 08/15/19 18:29 100 mls/hr Q1H STEPHANE Administration Sodium Chloride 10 ml 08/15/19 13:12 08/15/19 13:44 Saline Flush FLUSH 10 ml ASDIRECTED PRN Administration Keep Vein Open Discontinued Medications Generic Name Dose Route Start Last Admin Trade Name Abelardo PRN Reason Stop Dose Admin Lorazepam 1 mg 08/15/19 13:21 08/15/19 13:42 Ativan IVPUSH 08/15/19 13:22 1 mg ONETIME ONE Administration Ondansetron HCl 4 mg 08/15/19 13:12 08/15/19 13:43 Zofran IVPUSH 08/15/19 13:13 4 mg ONETIME ONE Administration Thiamine HCl 100 mg 08/15/19 13:14 08/15/19 13:45 Vitamin B-1 IVPUSH 08/15/19 13:15 100 mg ONETIME ONE Administration Re-Assessment/Re-Exam: I ordered an IV NS 1L bolus, thiamine 100mg IV, ativan 1gm IV, zofran 1mg IV, and labs. My nurse let me know she did have a short run of V-tach. I did an EKG and she was in a sinus tachycardia. Her Hgb was low at 10.6. Her anion gap was elevated at 18.8. Her calcium was low at 7. Her magnesium was low at 0.9. I have ordered 4 grams of magnesium. Her total bili was elevated at 1.1. Her AST was elevated at 41. Her alk phos was elevated at 121. Her troponin was negative. Her ETOH was 0. I feel she needs to be admitted. I called Dr Lam and he agreed to the admission. Departure - Departure Time of Disposition: 15:25 Disposition: Admitted As Inpatient 68 Condition: Fair Clinical Impression: Hypomagnesemia, Hypocalcemia, Ventricular tachycardia seen on dial mounter Alcohol withdrawal Qualifiers: Complication of substance-induced condition: uncomplicated Qualified Code(s): F10.230 - Alcohol dependence with withdrawal, uncomplicated - Discharge Information Referrals: PCP,None [Primary Care Provider] - Forms: ED Department Discharge Sepsis Event Note (ED) - Evaluation Sepsis Screening Result: No Definite Risk - Focused Exam Vital Signs: Vital Signs Temp Pulse Resp BP Pulse Ox 08/15/19 12:57 97.8 F 100 16 136/82 99 - My Orders Last 24 Hours: My Active Orders 08/15/19 13:12 Cardiac Monitoring [RC] . DIRECTED DRUG SCREEN, URINE [URCHEM] Stat Sodium Chloride 0.9% [Saline Flush] 10 ml FLUSH ASDIRECTED PRN ED Antiemetic Medication Reflex [OM.PC] Stat Peripheral IV Insertion Adult [OM.PC] Stat 08/15/19 13:14 Peripheral IV Care [RC] . DIRECTED 08/15/19 13:15 Sodium Chloride 0.9% [Normal Saline] 1,000 ml IV .BOLUS 08/15/19 13:21 EKG Documentation Completion [RC] ASDIRECTED EKG 12 Lead [EK] Stat 08/15/19 14:30 Magnesium Sulfate/D5W [Magnesium Sulfate in D5W 100 Premix] 1 gm Premix Bag 1 bag IV Q1H - Assessment/Plan Last 24 Hours: My Active Orders 08/15/19 13:12 Cardiac Monitoring [RC] . DIRECTED DRUG SCREEN, URINE [URCHEM] Stat Sodium Chloride 0.9% [Saline Flush] 10 ml FLUSH ASDIRECTED PRN ED Antiemetic Medication Reflex [OM.PC] Stat Peripheral IV Insertion Adult [OM.PC] Stat 08/15/19 13:14 Peripheral IV Care [RC] . DIRECTED 08/15/19 13:15 Sodium Chloride 0.9% [Normal Saline] 1,000 ml IV .BOLUS 08/15/19 13:21 EKG Documentation Completion [RC] ASDIRECTED EKG 12 Lead [EK] Stat 08/15/19 14:30 Magnesium Sulfate/D5W [Magnesium Sulfate in D5W 100 Premix] 1 gm Premix Bag 1 bag IV Q1H
[2019-08-15] MEDS ORDERED: Ondansetron 4 MG/2 ML SDV IV PRN (16:26)
--- NOTE | 2019-08-15 16:39 | PCM.HP.2 ---
H&P History of Present Illness - General Date of Service: 08/15/19 Admit Problem/Dx: Admission Diagnosis/Problem Admission Diagnosis/Problem Alcohol withdrawal syndrome - History of Present Illness Initial Comments - Free Text/Narative: 63-year-old female well-known to the hospitalist service presents to the [facility] because she was found unresponsive by family member. Patient did wake up and there was concern that she had a brief seizure. Patient has known alcohol addiction and has been hospitalized several times for alcohol withdrawal and it is even been to the [facility] last October. Patient was admitted last month and transferred secondary to alcohol withdrawal. Patient states that when she was at [facility] they did do an upper and lower endoscopy and she did have some polyps which her primary care provider requests that she be seen by oncology because of the polyps. Patient states that her last drink was yesterday afternoon around 1300 hrs. She drank approximately 5 airplane size bottles of vodka. She normally drinks 5 to 6/day. Patient does state that she is now hungry, has heartburn, and is thirsty. In the emergency department she was given Zofran, a liter of LR, and 1 mg of Ativan. Patient was found to have severe hypomagnesemia of 0.9, hypocalcemia with a corrected calcium of 7.8 (patient has chronically low calcium) and a short run of V. tach. EKG done in the emergency department showed a normal QT interval, normal sinus rhythm with ventricular rate of 104 bpm. She was started on magnesium IV and transferred to the ICU. Of note her EtOH level was 0. - Related Data Allergies/Adverse Reactions: Allergies Allergy/AdvReac Type Severity Reaction Status Date / Time levofloxacin [From Levaquin] Allergy Rash Verified 08/15/19 13:01 propoxyphene napsylate AdvReac Headache Verified 08/15/19 13:01 [From Darvocet-N] quetiapine fumarate AdvReac Confusion Verified 08/15/19 13:01 [From Seroquel] Home Medications: Home Meds Fluticasone Propion/Salmeterol [Advair 250-50 Diskus] 1 puff IH DAILY 05/24/16 [History] atorvaSTATin [Lipitor] 20 mg PO DAILY 05/24/16 [History] Albuterol Sulfate [Albuterol Sulfate Hfa] 2 puff PO Q4HR PRN 12/22/18 [History] DULoxetine [Cymbalta] 30 mg PO DAILY 12/22/18 [History] Losartan [Cozaar] 12.5 mg PO DAILY 12/22/18 [History] Omeprazole 20 mg PO ACBREAKFAST 12/22/18 [History] Potassium Chloride 20 meq PO DAILY 12/22/18 [History] Sucralfate [Carafate] 1 gm PO QID 12/22/18 [History] Folic Acid 1 mg PO DAILY #30 tablet 12/23/18 [Rx] Naltrexone 50 mg PO DAILY #30 tablet 12/23/18 [Rx] Thiamine [Vitamin B-1] 100 mg PO BEDTIME #30 tab 12/23/18 [Rx] Cranberry Fruit Extract [Cranberry] 0 mg PO DAILY 04/01/19 [History] Lutein/Minerals/Vit A,C & E [Ocuvite] 1 tab PO DAILY 04/01/19 [History] Magnesium 200 mg PO DAILY #30 tablet 04/01/19 [Rx] Montelukast [Singulair] 10 mg PO BEDTIME 04/01/19 [History] Ondansetron [Zofran ODT] 4 mg PO Q6H PRN #20 tab.dis 04/01/19 [Rx] Dexameth/Neomy/Polymyx B [Maxitrol Ophth Oint] 0 gm EYEBOTH TID tube 07/15/19 [Rx] Lactated Ringers [Ringers, Lactated] 75 ml IV ASDIRECTED bag 07/15/19 [Rx] Mirtazapine [Remeron] 15 mg PO BEDTIME tablet 07/15/19 [Rx] OLANZapine [ZyPREXA] 10 mg PO BEDTIME tablet 07/15/19 [Rx] diazePAM [Valium] 10 mg PO Q8HR tablet 07/15/19 [Rx] Past Medical History HEENT History: Reports: Impaired Vision Other HEENT History: wears glasses Cardiovascular History: Reports: High Cholesterol, Hypertension Respiratory History: Reports: Asthma Gastrointestinal History: Reports: GERD Genitourinary History: Reports: UTI, Recurrent [employer] CON[employer]CTOR History: Reports: Other (See Below) Other OB/BYN History: Patient states she started menopause at 54 yoa Neurological History: Reports: Headaches, Chronic Other Neuro History: headaches Psychiatric History: Reports: Addiction, Anxiety, Bipolar, Depression, Eating Disorders Other Psychiatric History: eating disorder at age 14 Endocrine/Metabolic History: Reports: Osteoporosis Hematologic History: Reports: None Immunologic History: Reports: Other (See Below) Other Immunologic History: recurrent staph infections Oncologic (Cancer) History: Reports: None - Infectious Disease History Infectious Disease History: Reports: Chicken Pox, Measles, Mumps - Past Surgical History Head Surgeries/Procedures: Reports: None HEENT Surgical History: Reports: Adenoidectomy, Oral Surgery, Tonsillectomy, Other (See Below) GI Surgical History: Reports: Appendectomy Musculoskeletal Surgical History: Reports: ORIF, Shoulder Surgery, Other (See Below) Other Musculoskeletal Surgeries/Procedures:: wrist ORIF Social & Family History - Family History Family Medical History: Noncontributory Cardiac: Reports: None - Tobacco Use Smoking Status *Q: Never Smoker Second Hand Smoke Exposure: No - Caffeine Use Caffeine Use: Reports: Coffee Other Caffeine Use: Unknown if ever used due to being currently intoxicated. 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 Exam - Exam Exam: See Below - Vital Signs Vital Signs: Last Vital Signs Temp 97.8 F 08/15/19 12:57 Pulse 100 08/15/19 12:57 Resp 16 08/15/19 12:57 BP 136/82 08/15/19 12:57 Pulse Ox 99 08/15/19 12:57 Weight: 52.163 kg - Exam Quality Assessment: No: Supplemental Oxygen General: Alert, Oriented, 4 HEENT: Conjunctiva Clear, EOMI, Hearing Intact, Mucosa Moist & Amorita Neck: Supple, Trachea Midline, 2 Lungs: Clear to Auscultation, Normal Respiratory Effort Cardiovascular: Regular Rhythm, Tachycardia GI/Abdominal Exam: Normal Bowel Sounds, Soft, Non-Tender, No Organomegaly, No Distention, No Abnormal Bruit, No Mass Back Exam: Normal Inspection Extremities: Normal Inspection, Normal Range of Motion, Non-Tender, No Pedal Edema, Normal Capillary Refill Peripheral Pulses: 2+: Posterior Tibial (L), Posterior Tibial (R), Dorsalis Pedis (L), Dorsalis Pedis (R) Skin: Warm, Dry, Intact Neurological: Cranial Nerves Intact Neuro Extensive - Mental Status: Alert, Oriented x3, Normal Mood/Affect, Normal Cognition, Memory Intact Neuro Extensive - Motor, Sensory, Reflexes: CN II-XII Intact, Abnormal Gait Psychiatric: Alert, Normal Affect, Normal Mood - Patient Data Lab Results Last 24 hrs: Laboratory Results - last 24 hr 08/15/19 08/15/19 08/15/19 Range/Units 13:35 13:35 13:35 WBC 9.30 (3.98-10.04) K/mm3 RBC 3.82 L (3.98-5.22) M/mm3 Hgb 10.6 L D (11.2-15.7) gm/dl Hct 33.5 L (34.1-44.9) % MCV 87.7 D (79.4-94.8) fl MCH 27.7 (25.6-32.2) pg MCHC 31.6 L (32.2-35.5) g/dl RDW Std Deviation 66.8 H (36.4-46.3) fL Plt Count 191 (182-369) K/mm3 MPV 8.8 L (9.4-12.3) fl Neut % (Auto) 86.8 H (34.0-71.1) % Lymph % (Auto) 7.2 L (19.3-51.7) % Kingfisher % (Auto) 5.6 (4.7-12.5) % Eos % (Auto) 0.1 L (0.7-5.8) Baso % (Auto) 0.2 (0.1-1.2) % Neut # (Auto) 8.07 H (1.56-6.13) K/mm3 Lymph # (Auto) 0.67 L (1.18-3.74) K/mm3 King[place] # (Auto) 0.52 H (0.24-0.36) K/mm3 Eos # (Auto) 0.01 L (0.04-0.36) K/mm3 Baso # (Auto) 0.02 (0.01-0.08) K/mm3 Manual Slide Review Normal smear Sodium 138 (136-145) mEq/L Potassium 3.8 (3.5-5.1) mEq/L Chloride 99 (98-107) mEq/L Carbon Dioxide 24 (21-32) mEq/L Anion Gap 18.8 H (5-15) BUN 4 L (7-18) mg/dL Creatinine 0.6 (0.55-1.02) mg/dL Est Cr Clr Drug Dosing 71.21 mL/min Estimated GFR (MDRD) > 60 (>60) mL/min BUN/Creatinine Ratio 6.7 L (14-18) Glucose 85 (80-115) mg/dL Calcium 7.0 L (8.5-10.1) mg/dL Magnesium 0.9 L (1.8-2.4) mg/dl Total Bilirubin 1.1 H (0.2-1.0) mg/dL AST 41 H (15-37) U/L ALT 13 L (14-59) U/L Alkaline Phosphatase 121 H (46-116) U/L Troponin I < 0.017 (0.00-0.056) ng/mL Total Protein 5.3 L (6.4-8.2) g/dl Albumin 2.9 L (3.4-5.0) g/dl Globulin 2.4 gm/dL Albumin/Globulin Ratio 1.2 (1-2) Ethyl Alcohol 0.00 (0.00) gm% Result Diagrams: 08/15/19 13:35 08/15/19 13:35 Sepsis Event Note - Evaluation Sepsis Screening Result: No Definite Risk - Focused Exam Vital Signs: Vital Signs Temp Pulse Resp BP Pulse Ox 08/15/19 12:57 97.8 F 100 16 136/82 99 Date Exam was Performed: 08/15/19 Time Exam was Performed: 17:30 Problem List Initiated/Reviewed/Updated: Yes Orders Last 24hrs: Active Orders 24 hr Category Date Time Status Patient Status [ADT] Routine ADT 08/15/19 15:40 Active CIWAA Assessment [RC] Q1H Care 08/15/19 16:09 Ordered Cardiac Monitoring [RC] . DIRECTED Care 08/15/19 13:12 Active EKG Documentation Completion [RC] ASDIRECTED Care 08/15/19 13:21 Active Oxygen Therapy [RC] PRN Care 08/15/19 16:26 Ordered Peripheral IV Care [RC] . DIRECTED Care 08/15/19 13:14 Active Up With Assistance [RC] ASDIRECTED Care 08/15/19 16:26 Ordered VTE/DVT Education [RC] PER UNIT ROUTINE Care 08/15/19 16:26 Ordered Vital Signs [RC] Q4H Care 08/15/19 16:26 Ordered Regular Diet [DIET] Diet 08/15/19 Dinner Ordered CBC WITH AUTO DIFF [HEME] AM Lab 08/16/19 05:11 Ordered CBC WITH AUTO DIFF [HEME] AM Lab 08/17/19 05:11 Ordered CBC WITH AUTO DIFF [HEME] AM Lab 08/18/19 05:11 Ordered COMPREHENSIVE METABOLIC PN,CMP [CHEM] AM Lab 08/16/19 05:11 Ordered COMPREHENSIVE METABOLIC PN,CMP [CHEM] AM Lab 08/17/19 05:11 Ordered COMPREHENSIVE METABOLIC PN,CMP [CHEM] AM Lab 08/18/19 05:11 Ordered DRUG SCREEN, URINE [URCHEM] Stat Lab 08/15/19 13:12 Ordered MAGNESIUM [CHEM] AM Lab 08/16/19 05:11 Ordered MAGNESIUM [CHEM] AM Lab 08/17/19 05:11 Ordered MAGNESIUM [CHEM] AM Lab 08/18/19 05:11 Ordered PHOSPHORUS [CHEM] AM Lab 08/16/19 05:11 Ordered PHOSPHORUS [CHEM] AM Lab 08/17/19 05:11 Ordered PHOSPHORUS [CHEM] AM Lab 08/18/19 05:11 Ordered Enoxaparin [Lovenox] Med 08/16/19 09:00 Ordered 40 mg SUBCUT DAILY Magnesium Sulfate/D5W [Magnesium Sulfate in D5W 100 Med 08/15/19 14:30 Active Premix] 1 gm Premix Bag 1 bag IV Q1H Ondansetron [Zofran] Med 08/15/19 16:26 Ordered 4 mg IV Q4H PRN Sodium Chloride 0.9% [Normal Saline] 1,000 ml Med 08/15/19 13:15 Active IV .BOLUS Sodium Chloride 0.9% [Saline Flush] Med 08/15/19 13:12 Active 10 ml FLUSH ASDIRECTED PRN diazePAM [Valium] Med 08/15/19 16:23 Ordered 5 - 10 mg IVPUSH Q1H PRN diazePAM [Valium] Med 08/15/19 16:09 Ordered 5 - 10 mg PO Q1H PRN ED Antiemetic Medication Reflex [OM.PC] Stat Oth 08/15/19 13:12 Ordered Peripheral IV Insertion Adult [OM.PC] Stat Oth 08/15/19 13:12 Ordered Resuscitation Status Routine Resus Stat 08/15/19 16:26 Ordered EKG 12 Lead [EK] Stat Ther 08/15/19 13:21 Ordered Medication Orders Diazepam (Valium.) 5 - 10 mg PO Q1H PRN PRN Reason: Withdrawal Symptoms Diazepam (Valium) 5 - 10 mg IVPUSH Q1H PRN PRN Reason: Withdrawal Symptoms Enoxaparin Sodium (Lovenox) 40 mg SUBCUT DAILY STEPHANE Sodium Chloride (Normal Saline) 1,000 mls @ 1,000 mls/hr IV .BOLUS STEPHANE Last Admin: 08/15/19 13:42 Dose: 1,000 mls/hr Documented by: MERRILL Magnesium Sulfate/Dextrose 1 (gm/ Premix) 100 mls @ 100 mls/hr IV Q1H STEPHANE Stop: 08/15/19 18:29 Last Admin: 08/15/19 16:07 Dose: 100 mls/hr Documented by: Infusion: 08/15/19 15:45 Dose: 100 mls/hr Documented by: Admin: 08/15/19 14:45 Dose: 100 mls/hr Documented by: ALBERT Ondansetron HCl (Zofran) 4 mg IV Q4H PRN PRN Reason: Nausea/Vomiting Sodium Chloride (Saline Flush) 10 ml FLUSH ASDIRECTED PRN PRN Reason: Keep Vein Open Last Admin: 08/15/19 13:44 Dose: 10 ml Documented by: MERRILL Assessment/Plan Comment:: 63-year-old chronic alcoholic with possible alcohol withdrawal seizure/syndrome * Patient found unresponsive by family member, mother * Last alcoholic beverage 24 hours prior to presentation to emergency department * Tremulous and anxious on presentation to the emergency department * Drinking 5-6 shots size bottles a day * Failed multiple inpatient and outpatient alcohol rehab programs Plan * Admit to ICU * Seizure precautions * CIWAA protocol * Diazepam 5 mg IV or p.o. for CIWAA between 8 and 14 * Diazepam 10 mg IV or p.o. for CIWAA between 14 and 19 * Diazepam 10 mg IV for CIWAA greater than 19 and call MD * Thiamine 100 mg daily and folic acid 1 mg daily Severe hypomagnesemia * Likely secondary to poor p.o. intake * Also likely contributing to hypocalcemia Plan * Magnesium 6 g IV * Magnesium oxide 4 mg twice daily * Follow magnesium daily Hypocalcemia and hypoalbuminemia * Corrected calcium 7.8 * Albumin 2.9 * Review of old records shows that she has chronically low albumin and calcium * Patient is asymptomatic * Hypoalbuminemia likely secondary to poor protein intake * Hypocalcemia likely multifactorial to include hypomagnesemia, hypoalbuminemia, and poor oral intake. Plan * Check PTH, 25 hydroxy vitamin D, 1, 25 dihydroxy vitamin D, phosphorus * Calcium carbonate 1 g now p.o. * Calcium carbonate with vitamin D 600 mg / 200 IU 3 times daily with meals * Follow calcium and albumin daily Asthma * Currently asymptomatic * Lungs are clear * Non-smoker Plan * Continue home meds History of depression, anxiety, and bipolar disorder * Likely contributing to alcoholism and vice versa * Currently appears to be euthymic Plan * Continue home med Hypertension * Blood pressure in the emergency department 136/82 Plan * Continue home meds VTE prophylaxis with Lovenox CODE STATUS: Full code Disposition: Admit to ICU. Consider transfer to inpatient rehab after patient is medically stable. - Mortality Measure Prognosis:: Good
[2019-08-15] MEDS ORDERED: Calcium Carbonate 500 MG Tab.Chew PO ONE (16:42)
[2019-08-15] MEDS ORDERED: Calcium Carbonate 500 MG Tab.Chew PO PRN (16:42)
[2019-08-15] MEDS: D5 1/2 NS w/ 20 mEq/L KCl 1,000 ML IV SCH (17:18)
[2019-08-15] MEDS: Calcium Carbonate/Vitamin D3 600 MG-200 Units Tab PO SCH (18:57)
[2019-08-15] MEDS: Magnesium Oxide 400 MG Tab PO SCH (20:01)
[2019-08-15] MEDS: Diazepam 5 MG Tab PO PRN ×3 (20:02→23:54)
[2019-08-15] MEDS: Calcium Carbonate 500 MG Tab.Chew PO PRN (20:02)
[2019-08-15] MEDS: Folic Acid 1 MG Tab PO SCH (20:02)
[2019-08-15] MEDS ORDERED: Magnesium Sulfate/Water 2 GM in Premix Bag 1 BAG IV ONE (21:32)
[2019-08-16] MEDS ORDERED: Aluminum Hydroxide/Magnesium Hydroxide/Simethicone Susp 30 ML Cup PO ONE (01:07)
[2019-08-16] MEDS: Calcium Carbonate 500 MG Tab.Chew PO PRN ×2 (01:08→06:31)
[2019-08-16] MEDS: Diazepam 5 MG Tab PO PRN ×5 (01:26→06:56)
[2019-08-16] MEDS: D5 1/2 NS w/ 20 mEq/L KCl 1,000 ML IV SCH ×2 (01:46→12:13)
[2019-08-16 06:22] LABS: VITAMIN D,25-HYDROXY 20.5 ng/ml (30.0-100.0)
[2019-08-16] MEDS: Calcium Carbonate/Vitamin D3 600 MG-200 Units Tab PO SCH ×3 (06:31→17:24)
[2019-08-16] MEDS ORDERED: Albuterol 6.7 GM Inhaler INH PRN (07:35)
[2019-08-16] MEDS: Naltrexone 50 MG Tab PO SCH (08:31)
[2019-08-16] MEDS: Folic Acid 1 MG Tab PO SCH ×2 (08:31→21:18)
[2019-08-16] MEDS: Losartan 25 MG Tab PO SCH (08:31)
[2019-08-16] MEDS: Sucralfate 1 GM Tab PO SCH ×4 (08:31→21:16)
[2019-08-16] MEDS: Simvastatin 20 MG Tab PO SCH (08:32)
[2019-08-16] MEDS: Cholecalciferol (Vitamin D3) 5,000 UNIT Tab PO SCH (08:32)
[2019-08-16] MEDS: Magnesium Oxide 400 MG Tab PO SCH ×2 (08:33→21:16)
[2019-08-16] MEDS: Thiamine 100 MG Tab PO SCH ×2 (08:34→21:19)
[2019-08-16] MEDS ORDERED: Non-Formulary Medication 1 Each (Potassium Chloride [Potassium Chloride] 20 MEQ) PO SCH (09:00)
[2019-08-16] MEDS ORDERED: Enoxaparin 40 MG/0.4 ML Syringe SUBCUT SCH (09:00)
[2019-08-16] MEDS ORDERED: Potassium Chloride 20 MEQ Tab.ER PO SCH (09:00)
[2019-08-16] MEDS ORDERED: chlordiazePOXIDE 25 MG Cap PO ONE (09:41)
[2019-08-16] MEDS ORDERED: Haloperidol Lactate 5 MG/ML SDV IVPUSH ONE (09:41)
--- NOTE | 2019-08-16 12:00 | PCM.PN ---
- General Info Date of Service: 08/16/19 Admission Dx/Problem (Free Text): Admission Diagnosis/Problem Admission Diagnosis/Problem Alcohol withdrawal syndrome Subjective Update: Patient has elevated CIWAA's of 15. Nursing is concerned because she continues to try to get out of bed and she is unstable increasing her risk for falls. She is requiring diazepam 10 mg every hour. Patient is confused making history difficult. - Review of Systems General: Reports: Other (Confused) - Patient Data Vitals - Most Recent: Last Vital Signs Temp 97.8 F 08/16/19 08:00 Pulse 124 H 08/16/19 00:00 Resp 30 H 08/16/19 10:00 BP 128/83 08/16/19 10:00 Pulse Ox 90 L 08/16/19 10:30 Weight - Most Recent: 53.977 kg I&O - Last 24 Hours: Intake & Output 08/15/19 08/16/19 08/16/19 22:59 06:59 14:59 Intake Total 1300 1000 340 Output Total 415 1250 300 Balance 885 -250 40 Lab Results Last 24 Hours: Laboratory Results - last 24 hr 08/15/19 08/15/19 08/15/19 Range/Units 13:35 13:35 13:35 WBC 9.30 (3.98-10.04) K/mm3 RBC 3.82 L (3.98-5.22) M/mm3 Hgb 10.6 L D (11.2-15.7) gm/dl Hct 33.5 L (34.1-44.9) % MCV 87.7 D (79.4-94.8) fl MCH 27.7 (25.6-32.2) pg MCHC 31.6 L (32.2-35.5) g/dl RDW Std Deviation 66.8 H (36.4-46.3) fL Plt Count 191 (182-369) K/mm3 MPV 8.8 L (9.4-12.3) fl Neut % (Auto) 86.8 H (34.0-71.1) % Lymph % (Auto) 7.2 L (19.3-51.7) % Mclean % (Auto) 5.6 (4.7-12.5) % Eos % (Auto) 0.1 L (0.7-5.8) Baso % (Auto) 0.2 (0.1-1.2) % Neut # (Auto) 8.07 H (1.56-6.13) K/mm3 Lymph # (Auto) 0.67 L (1.18-3.74) K/mm3 Mclean # (Auto) 0.52 H (0.24-0.36) K/mm3 Eos # (Auto) 0.01 L (0.04-0.36) K/mm3 Baso # (Auto) 0.02 (0.01-0.08) K/mm3 Manual Slide Review Normal smear Sodium 138 (136-145) mEq/L Potassium 3.8 (3.5-5.1) mEq/L Chloride 99 (98-107) mEq/L Carbon Dioxide 24 (21-32) mEq/L Anion Gap 18.8 H (5-15) BUN 4 L (7-18) mg/dL Creatinine 0.6 (0.55-1.02) mg/dL Est Cr Clr Drug Dosing 71.21 mL/min Estimated GFR (MDRD) > 60 (>60) mL/min BUN/Creatinine Ratio 6.7 L (14-18) Glucose 85 (80-115) mg/dL Calcium 7.0 L (8.5-10.1) mg/dL Phosphorus (2.6-4.7) mg/dL Magnesium 0.9 L (1.8-2.4) mg/dl Total Bilirubin 1.1 H (0.2-1.0) mg/dL AST 41 H (15-37) U/L ALT 13 L (14-59) U/L Alkaline Phosphatase 121 H (46-116) U/L Troponin I < 0.017 (0.00-0.056) ng/mL Total Protein 5.3 L (6.4-8.2) g/dl Albumin 2.9 L (3.4-5.0) g/dl Globulin 2.4 gm/dL Albumin/Globulin Ratio 1.2 (1-2) Vitamin D 25-Hydroxy (30.0-100.0) ng/ml Urine Opiates Screen (TJKLUM=306) Ur Buprenorphine Scrn (CUTOFF=10) Ur Oxycodone Screen (CKU6IN=120) Urine Methadone Screen (NYBPZO=663) Ur Propoxyphene Screen (PCEUNR=688) Ur Barbiturates Screen (QJVHSC=736) Ur Tricyclics Screen (HMBHLE=735) Ur Phencyclidine Scrn (CUTOFF=25) Ur Amphetamine Screen (KDVDSF=300) U Methamphetamines Scrn (PQOMSC=454) U Benzodiazepines Scrn (LQAAEI=998) U Cocaine Metab Screen (VYLRCX=413) U Marijuana (THC) Screen (CUTOFF=50) Ethyl Alcohol 0.00 (0.00) gm% 08/15/19 08/15/19 08/16/19 Range/Units 16:50 21:50 05:20 WBC 11.17 H (3.98-10.04) K/mm3 RBC 4.34 (3.98-5.22) M/mm3 Hgb 12.1 D (11.2-15.7) gm/dl Hct 38.8 (34.1-44.9) % MCV 89.4 (79.4-94.8) fl MCH 27.9 (25.6-32.2) pg MCHC 31.2 L (32.2-35.5) g/dl RDW Std Deviation 70.7 H (36.4-46.3) fL Plt Count 171 L (182-369) K/mm3 MPV 9.6 (9.4-12.3) fl Neut % (Auto) 83.3 H (34.0-71.1) % Lymph % (Auto) 11.4 L (19.3-51.7) % Mclean % (Auto) 4.7 (4.7-12.5) % Eos % (Auto) 0.4 L (0.7-5.8) Baso % (Auto) 0.1 (0.1-1.2) % Neut # (Auto) 9.32 H (1.56-6.13) K/mm3 Lymph # (Auto) 1.27 (1.18-3.74) K/mm3 Mclean # (Auto) 0.52 H (0.24-0.36) K/mm3 Eos # (Auto) 0.04 (0.04-0.36) K/mm3 Baso # (Auto) 0.01 (0.01-0.08) K/mm3 Manual Slide Review Sodium (136-145) mEq/L Potassium (3.5-5.1) mEq/L Chloride (98-107) mEq/L Carbon Dioxide (21-32) mEq/L Anion Gap (5-15) BUN (7-18) mg/dL Creatinine (0.55-1.02) mg/dL Est Cr Clr Drug Dosing mL/min Estimated GFR (MDRD) (>60) mL/min BUN/Creatinine Ratio (14-18) Glucose (80-115) mg/dL Calcium (8.5-10.1) mg/dL Phosphorus (2.6-4.7) mg/dL Magnesium 2.5 H (1.8-2.4) mg/dl Total Bilirubin (0.2-1.0) mg/dL AST (15-37) U/L ALT (14-59) U/L Alkaline Phosphatase (46-116) U/L Troponin I (0.00-0.056) ng/mL Total Protein (6.4-8.2) g/dl Albumin (3.4-5.0) g/dl Globulin gm/dL Albumin/Globulin Ratio (1-2) Vitamin D 25-Hydroxy (30.0-100.0) ng/ml Urine Opiates Screen Negative (TDIKRX=179) Ur Buprenorphine Scrn Negative (CUTOFF=10) Ur Oxycodone Screen Negative (JGP9VZ=693) Urine Methadone Screen Negative (POLHII=948) Ur Propoxyphene Screen Negative (KQUUDU=380) Ur Barbiturates Screen Negative (OUVBBH=860) Ur Tricyclics Screen Negative (CIZOAR=547) Ur Phencyclidine Scrn Negative (CUTOFF=25) Ur Amphetamine Screen Negative (ORYFAL=259) U Methamphetamines Scrn Negative (RMOCGI=088) U Benzodiazepines Scrn Presumptive positive H (DPSIAT=267) U Cocaine Metab Screen Negative (LGHFRS=699) U Marijuana (THC) Screen Negative (CUTOFF=50) Ethyl Alcohol (0.00) gm% 08/16/19 Range/Units 05:20 WBC (3.98-10.04) K/mm3 RBC (3.98-5.22) M/mm3 Hgb (11.2-15.7) gm/dl Hct (34.1-44.9) % MCV (79.4-94.8) fl MCH (25.6-32.2) pg MCHC (32.2-35.5) g/dl RDW Std Deviation (36.4-46.3) fL Plt Count (182-369) K/mm3 MPV (9.4-12.3) fl Neut % (Auto) (34.0-71.1) % Lymph % (Auto) (19.3-51.7) % Mclean % (Auto) (4.7-12.5) % Eos % (Auto) (0.7-5.8) Baso % (Auto) (0.1-1.2) % Neut # (Auto) (1.56-6.13) K/mm3 Lymph # (Auto) (1.18-3.74) K/mm3 Mclean # (Auto) (0.24-0.36) K/mm3 Eos # (Auto) (0.04-0.36) K/mm3 Baso # (Auto) (0.01-0.08) K/mm3 Manual Slide Review Sodium 136 (136-145) mEq/L Potassium 3.4 L (3.5-5.1) mEq/L Chloride 98 (98-107) mEq/L Carbon Dioxide 30 (21-32) mEq/L Anion Gap 11.4 (5-15) BUN 5 L (7-18) mg/dL Creatinine 0.7 (0.55-1.02) mg/dL Est Cr Clr Drug Dosing 71.92 mL/min Estimated GFR (MDRD) > 60 (>60) mL/min BUN/Creatinine Ratio 7.1 L (14-18) Glucose 130 H (80-115) mg/dL Calcium 8.1 L (8.5-10.1) mg/dL Phosphorus 1.8 L (2.6-4.7) mg/dL Magnesium 2.1 (1.8-2.4) mg/dl Total Bilirubin 1.2 H (0.2-1.0) mg/dL AST 39 H (15-37) U/L ALT 25 (14-59) U/L Alkaline Phosphatase 132 H (46-116) U/L Troponin I (0.00-0.056) ng/mL Total Protein 5.8 L (6.4-8.2) g/dl Albumin 3.1 L (3.4-5.0) g/dl Globulin 2.7 gm/dL Albumin/Globulin Ratio 1.2 (1-2) Vitamin D 25-Hydroxy 20.5 L (30.0-100.0) ng/ml Urine Opiates Screen (RUETTV=828) Ur Buprenorphine Scrn (CUTOFF=10) Ur Oxycodone Screen (IOA2IX=234) Urine Methadone Screen (QMTGDE=329) Ur Propoxyphene Screen (PHFYXH=498) Ur Barbiturates Screen (TWHVXU=827) Ur Tricyclics Screen (YSKGKP=565) Ur Phencyclidine Scrn (CUTOFF=25) Ur Amphetamine Screen (AENZLD=214) U Methamphetamines Scrn (YQFHOF=454) U Benzodiazepines Scrn (OSNFAC=647) U Cocaine Metab Screen (KTYINB=333) U Marijuana (THC) Screen (CUTOFF=50) Ethyl Alcohol (0.00) gm% Med Orders - Current: Current Medications Albuterol (Proventil Hfa) 0 gm INH Q4H PRN PRN Reason: Shortness of Breath Calcium Carbonate (Calcium Carbonate/Vitamin D 600 Mg-200 Unit) 1 tab PO TIDMEALS [facility] Last Admin: 08/16/19 11:11 Dose: 1 tab Documented by: Calcium Carbonate/Glycine (Tums) 1,000 mg PO Q6HR PRN PRN Reason: Indigestion Last Admin: 08/16/19 06:31 Dose: 1,000 mg Documented by: Cholecalciferol (Vitamin D3) 5,000 unit PO DAILY [facility] Last Admin: 08/16/19 08:32 Dose: 5,000 unit Documented by: Diazepam (Valium.) 5 - 10 mg PO Q1H PRN PRN Reason: Withdrawal Symptoms Last Admin: 08/16/19 06:56 Dose: 10 mg Documented by: Diazepam (Valium) 5 - 10 mg IVPUSH Q1H PRN PRN Reason: Withdrawal Symptoms Last Admin: 08/16/19 11:10 Dose: 10 mg Documented by: Diazepam (Valium.) 10 mg PO Q8HR [facility] Enoxaparin Sodium (Lovenox) 40 mg SUBCUT DAILY [facility] Last Admin: 08/16/19 08:34 Dose: 40 mg Documented by: Folic Acid (Folic Acid) 1 mg PO BEDTIME [facility] Last Admin: 08/15/19 20:02 Dose: 1 mg Documented by: Folic Acid (Folic Acid) 1 mg PO DAILY [facility] Last Admin: 08/16/19 08:31 Dose: 1 mg Documented by: Sodium Chloride (Normal Saline) 1,000 mls @ 1,000 mls/hr IV .BOLUS [facility] Last Admin: 08/15/19 13:42 Dose: 1,000 mls/hr Documented by: Potassium Chloride/Dextrose/Sod Cl (D5 1/2 Ns W/ 20 Meq/L Kcl) 1,000 mls @ 100 mls/hr IV ASDIRECTED [facility] Last Admin: 08/16/19 01:46 Dose: 100 mls/hr Documented by: Losartan Potassium (Cozaar) 12.5 mg PO DAILY [facility] Last Admin: 08/16/19 08:31 Dose: 12.5 mg Documented by: Magnesium Oxide (Magnesium Oxide) 400 mg PO BID [facility] Last Admin: 08/16/19 08:33 Dose: 400 mg Documented by: Mirtazapine (Remeron) 15 mg PO BEDTIME [facility] Montelukast Sodium (Singulair) 10 mg PO BEDTIME [facility] Naltrexone HCl (Naltrexone) 50 mg PO DAILY [facility] Last Admin: 08/16/19 08:31 Dose: 50 mg Documented by: Olanzapine (Zyprexa) 10 mg PO BEDTIME [facility] Ondansetron HCl (Zofran) 4 mg IV Q4H PRN PRN Reason: Nausea/Vomiting Last Admin: 08/15/19 23:53 Dose: 4 mg Documented by: Pantoprazole Sodium (Protonix) 40 mg PO ACBREAKFAST [facility] Potassium Chloride (Klor-Con M20) 20 meq PO BID [facility] Last Admin: 08/16/19 08:31 Dose: 20 meq Documented by: Simvastatin (Zocor) 20 mg PO DAILY [facility] Last Admin: 08/16/19 08:32 Dose: 20 mg Documented by: Sodium Chloride (Saline Flush) 10 ml FLUSH ASDIRECTED PRN PRN Reason: Keep Vein Open Last Admin: 08/15/19 13:44 Dose: 10 ml Documented by: Sucralfate (Carafate) 1 gm PO QID [facility] Last Admin: 08/16/19 08:31 Dose: 1 gm Documented by: Thiamine HCl (Vitamin B-1) 100 mg PO DAILY [facility] Last Admin: 08/16/19 08:34 Dose: 100 mg Documented by: Thiamine HCl (Vitamin B-1) 100 mg PO BEDTIME [facility]PH[facility] Discontinued Medications Al Hydroxide/Mg Hydroxide (Mag-Al Plus) 30 ml PO ONETIME ONE Stop: 08/16/19 01:08 Last Admin: 08/16/19 01:25 Dose: 30 ml Documented by: Calcium Carbonate/Glycine (Tums) 1,000 mg PO ONETIME ONE Stop: 08/15/19 16:43 Last Admin: 08/15/19 17:13 Dose: 1,000 mg Documented by: Calcium Carbonate/Glycine (Tums) 1,000 mg PO Q2HR PRN PRN Reason: Indigestion Chlordiazepoxide HCl (Librium) 75 mg PO ONETIME ONE Stop: 08/16/19 09:42 Last Admin: 08/16/19 09:45 Dose: 75 mg Documented by: Diazepam (Valium) 10 mg IVPUSH ONETIME ONE Stop: 08/15/19 16:15 Last Admin: 08/15/19 16:36 Dose: 10 mg Documented by: Haloperidol Lactate (Haldol) 5 mg IVPUSH ONETIME ONE Stop: 08/16/19 09:42 Last Admin: 08/16/19 09:45 Dose: 5 mg Documented by: Magnesium Sulfate/Dextrose 1 (gm/ Premix) 100 mls @ 100 mls/hr IV Q1H [facility] Stop: 08/15/19 18:29 Last Admin: 08/15/19 18:08 Dose: 100 mls/hr Documented by: Magnesium Sulfate 2 gm/ Premix 50 mls @ 25 mls/hr IV ONETIME ONE Stop: 08/15/19 23:31 Last Admin: 08/15/19 22:36 Dose: Not Given Documented by: Lorazepam (Ativan) 1 mg IVPUSH ONETIME ONE Stop: 08/15/19 13:22 Last Admin: 08/15/19 13:42 Dose: 1 mg Documented by: Non-Formulary Medication (Potassium Chloride [Potassium Chloride]) 20 meq PO DAILY [facility] Ondansetron HCl (Zofran) 4 mg IVPUSH ONETIME ONE Stop: 08/15/19 13:13 Last Admin: 08/15/19 13:43 Dose: 4 mg Documented by: Thiamine HCl (Vitamin B-1) 100 mg IVPUSH ONETIME ONE Stop: 08/15/19 13:15 Last Admin: 08/15/19 13:45 Dose: 100 mg Documented by: Thiamine HCl (Vitamin B-1) 100 mg IVPUSH ONETIME ONE Stop: 08/15/19 21:01 Last Admin: 08/15/19 20:01 Dose: 100 mg Documented by: - Exam Quality Assessment: No: Supplemental Oxygen General: Sedated HEENT: Pupils Equal, Mucous Membr. Moist/[place] Neck: Supple Lungs: Clear to Auscultation, Normal Respiratory Effort Cardiovascular: Regular Rhythm, Tachycardia GI/Abdominal Exam: Normal Bowel Sounds, Soft, Non-Tender, No Organomegaly, No Distention, No Abnormal Bruit, Pelvis Stable Extremities: Normal Inspection, Normal Range of Motion, Non-Tender, No Pedal Edema, Normal Capillary Refill Skin: Warm, Dry, Intact Psy/Mental Status: Alert, Normal Affect, Normal Mood Sepsis Event Note - Evaluation Sepsis Screening Result: No Definite Risk - Focused Exam Vital Signs: Vital Signs Temp Pulse Resp BP BP Pulse Ox 08/16/19 10:30 90 L 08/16/19 10:00 30 H 128/83 93 L 08/16/19 08:31 139/92 H 08/16/19 08:00 97.8 F 22 H 139/92 H 98 08/16/19 07:59 23 H 96 08/16/19 07:30 98 08/16/19 04:20 21 H 93 L 08/16/19 04:10 26 H 08/16/19 04:01 10 L 157/88 H 08/16/19 04:00 17 08/16/19 03:50 18 95 08/16/19 03:40 26 H 95 08/16/19 03:30 15 95 08/16/19 03:20 20 08/16/19 03:10 22 H 96 08/16/19 03:01 24 H 147/96 H 08/16/19 03:00 18 96 08/16/19 02:50 26 H 95 08/16/19 02:40 21 H 08/16/19 02:30 24 H 08/16/19 02:20 20 96 08/16/19 02:10 22 H 96 08/16/19 02:02 23 H 139/88 97 08/16/19 02:01 20 08/16/19 02:00 22 H 97 08/16/19 01:50 15 99 08/16/19 01:40 20 97 08/16/19 01:30 21 H 08/16/19 01:20 20 97 08/16/19 01:12 20 06/21/20 01:02 151/94 H 99 06/21/20 01:01 98 08/16/19 00:50 97 08/16/19 00:40 84 L 08/16/19 00:30 100 08/16/19 00:20 100 08/16/19 00:10 99 08/16/19 00:01 97 08/16/19 00:00 98.2 F 124 H 147/99 H 97 08/15/19 23:59 100 08/15/19 23:58 154/92 H 99 08/15/19 23:57 99 Date Exam was Performed: 08/16/19 Time Exam was Performed: 11:51 - Problem List Review Problem List Initiated/Reviewed/Updated: Yes - My Orders Last 24 Hours: My Active Orders 08/15/19 16:09 CIWAA Assessment [RC] Q1HR diazePAM [Valium] 5 - 10 mg PO Q1H PRN 08/15/19 16:23 diazePAM [Valium] 5 - 10 mg IVPUSH Q1H PRN 08/15/19 16:26 Oxygen Therapy [RC] .PRN Up With Assistance [RC] .ASDIRECTED VTE/DVT Education [RC] Ondansetron [Zofran] 4 mg IV Q4H PRN Resuscitation Status Routine 08/15/19 16:41 Urinary Catheter Assessment [RC] Q4HR 08/15/19 16:45 Insert Jeffries Catheter [Insert Urinary Catheter] [OM.PC] Q24H 08/15/19 Dinner Regular Diet [DIET] 08/15/19 17:15 D5 1/2 NS w/ 20 mEq/L KCl 1,000 ml IV ASDIRECTED 08/15/19 17:39 Calcium Carbonate [Tums] 1,000 mg PO Q6HR PRN 08/15/19 17:45 Calcium Carbonate/Vitamin D3 [Calcium Carbonate/Vitamin D 600 MG-200 Unit] 1 tab PO TIDMEALS 08/15/19 21:00 Folic Acid 1 mg PO BEDTIME Magnesium Oxide 400 mg PO BID 08/16/19 05:20 CALCITRIOL(1,25 DI-OH VIT D) [REF] AM PTH, INTACT [REF] AM 08/16/19 07:35 Albuterol [Proventil HFA] 0 gm INH Q4H PRN 08/16/19 07:37 RT Post Treatment Assessment [RC] Click to Edit RT Pre-Treatment Assessment [RC] Click to Edit 08/16/19 09:00 Cholecalciferol (Vitamin D3) [Vitamin D3] 5,000 unit PO DAILY Enoxaparin [Lovenox] 40 mg SUBCUT DAILY Folic Acid 1 mg PO DAILY Losartan [Cozaar] 12.5 mg PO DAILY Naltrexone 50 mg PO DAILY Potassium Chloride [Klor-Con M20] 20 meq PO BID Simvastatin [Zocor] 20 mg PO DAILY Sucralfate [Carafate] 1 gm PO QID Thiamine [Vitamin B-1] 100 mg PO DAILY 08/16/19 11:16 EKG 12 Lead [EKG Documentation Completion] [RC] STAT 08/16/19 14:00 diazePAM [Valium] 10 mg PO Q8HR 08/16/19 21:00 Mirtazapine [Remeron] 15 mg PO BEDTIME Montelukast [Singulair] 10 mg PO BEDTIME OLANZapine [ZyPREXA] 10 mg PO BEDTIME Thiamine [Vitamin B-1] 100 mg PO BEDTIME 08/17/19 05:11 CBC WITH AUTO DIFF [HEME] AM COMPREHENSIVE METABOLIC PN,CMP [CHEM] AM MAGNESIUM [CHEM] AM PHOSPHORUS [CHEM] AM 08/17/19 06:00 Pantoprazole [ProTONIX] 40 mg PO ACBREAKFAST 08/18/19 05:11 CBC WITH AUTO DIFF [HEME] AM COMPREHENSIVE METABOLIC PN,CMP [CHEM] AM MAGNESIUM [CHEM] AM PHOSPHORUS [CHEM] AM - Plan Plan:: 63-year-old chronic alcoholic with possible alcohol withdrawal seizure/syndrome Admission: August 15, 2019 * Patient found unresponsive by family member, mother * Last alcoholic beverage 24 hours prior to presentation to emergency department * Tremulous and anxious on presentation to the emergency department * Drinking 5-6 shots size bottles a day * Failed multiple inpatient and outpatient alcohol rehab programs August 16, 2019 * Patient with worsening withdrawal symptoms * CIWAA's of 15 Plan * Admit to ICU * Seizure precautions * Continue CIWAA protocol * Diazepam 5 mg IV or p.o. for CIWAA between 8 and 14 * Diazepam 10 mg IV or p.o. for CIWAA between 14 and 19 * Diazepam 10 mg IV for CIWAA greater than 19 and call MD * Thiamine 100 mg daily and folic acid 1 mg daily * Chlordiazepoxide 75 mg p.o. x1. He may need to schedule chlordiazepoxide. Severe hypomagnesemia -resolved Admission * Likely secondary to poor p.o. intake * Also likely contributing to hypocalcemia August 16, 2019 * Magnesium corrected at 2.1 Plan * Magnesium oxide 4 mg twice daily * Follow magnesium daily Hypocalcemia, hypoalbuminemia, hypokalemia, low vitamin D Admission * Corrected calcium 7.8 * Albumin 2.9 * Review of old records shows that she has chronically low albumin and calcium * Patient is asymptomatic * Hypoalbuminemia likely secondary to poor protein intake * Hypocalcemia likely multifactorial to include hypomagnesemia, hypoalbuminemia, and poor oral intake. August 16, 2019 * Hypocalcemia resolved with resolution of hypomagnesemia: Corrected calcium 8.8 * Potassium slightly decreased at 3.2 * Albumin still low at 3.1 * Vitamin D 20 Plan * Check PTH, 25 hydroxy vitamin D, 1, 25 dihydroxy vitamin D, phosphorus * Start vitamin D3 5000 units daily * Calcium carbonate with vitamin D 600 mg / 200 IU 3 times daily with meals * Follow electrolytes and albumin daily Asthma * Currently asymptomatic * Lungs are clear * Non-smoker Plan * Continue home meds History of depression, anxiety, and bipolar disorder * Likely contributing to alcoholism and vice versa * Currently appears to be euthymic Plan * Continue home med Hypertension * Blood pressure in the emergency department 136/82 Plan * Continue home meds VTE prophylaxis with Lovenox CODE STATUS: Full code Disposition: Admit to ICU. Consider transfer to inpatient rehab after patient is medically stable.
[2019-08-16] MEDS ORDERED: Metoprolol Tartrate 5 MG/5 ML SDV IVPUSH ONE (12:28)
[2019-08-16] MEDS ORDERED: Haloperidol Lactate 5 MG/ML SDV IM ONE (12:47)
[2019-08-16] MEDS: Diazepam 5 MG Tab PO SCH ×2 (14:40→22:12)
[2019-08-16] MEDS ORDERED: Sodium Chloride 0.9% 1,000 ML IV ONE (15:03)
[2019-08-16] MEDS ORDERED: chlordiazePOXIDE 25 MG Cap PO PRN (17:19)
[2019-08-16] MEDS: chlordiazePOXIDE 25 MG Cap PO SCH ×2 (18:12→23:05)
[2019-08-16] MEDS: Pantoprazole 40 MG Vial IVPUSH SCH (18:53)
[2019-08-16] MEDS ORDERED: Sodium Chloride 0.9% 1,000 ML ONE (20:36)
[2019-08-16] MEDS ORDERED: Sodium Chloride 0.9% 250 ML ONE (20:37)
[2019-08-16] MEDS ORDERED: OLANZapine 5 MG Tab PO SCH (21:00)
[2019-08-16] MEDS ORDERED: Sodium Chloride 0.9% 250 ML IV ONE (21:00)
--- NOTE | 2019-08-16 21:04 | PCM.SN.2 ---
- Free Text/Narrative Note: At approximately 1800 hrs. during ED evaluation patient was found to be still tachycardic with heart rate in the 140s and tachypneic with respiratory rates in the 40s. Order was given to get a stat CBC, BMP, magnesium, and phosphorus. Patient's hemoglobin dropped to 7.2 from 12 this morning. Nursing had reported a couple hours earlier that she did have some black spit up. Patient was switched to Protonix 40 mg IV push x2 and started on a Protonix drip. Dr. Whatley and surgery was consulted for possible upper GI bleed, and 2 units packed red blood cells were ordered stat. Dr. Whatley was able to get some records through [facility]. Patient was transferred from our facility on July 14 to [facility] in [place] where EGD findings found ulcerative esophagitis as well as a colonoscopy with polyps and removal. Patient has not had a bowel movement. Vitals at 1800: Blood pressure 97/60, respiratory of 44, pulse ox 94% on room air, heart rate in the 140s. General: Patient is sedated, confused. Respiratory: Increased respiratory rate and effort. Noticeable upper airway sounds without wheezes, rales, or rhonchi in the lower airways. Heart is tachycardic with regular rhythm. No murmurs rubs or gallops. Abdomen is soft, mildly distended without guarding or rebound. Bowel sounds are present. Extremities: Extremities are cold, but capillary refill is less than 3 seconds. Labs: White count 7.44, hemoglobin 7.2, platelets 140, PT 12.2, INR 1.13, PTT 30. VBG: pH 7.52, PCO2 32.2, PO2 58, bicarb 26.4. Sodium 139, potassium 4.3, chloride 105, bicarb 28, anion gap 10.3, BUN 26, creatinine 0.7, glucose 113, phosphorus 1.3, magnesium 1.7. Troponin less than 0.017. EKG showed sinus tachycardia with poor R wave progression. Assessment Acute GI bleed: Patient had a drop of hemoglobin of 5 g/dL. She is tachycardic and tachypneic. The tachycardia and tachypnea can also be secondary to her alcohol withdrawal. Patient also has known esophageal ulcerations with recent hospitalization for upper GI bleed. Unknown if she received a transfusion at that time. Patient also had a colonoscopy with polypectomy. Plan 2 units stat packed red blood cells with [address] Whatley in surgery was consulted and saw patient at bedside. Please see her consultation. Recheck hemoglobin after 2 units of packed red blood cells. Protonix IV bolus and drip Hypomagnesemia, hypophosphatemia Replace as needed and recheck Alcohol withdrawal CIWAA scores are in the teens. She is continuing to require diazepam 10 mg at least every hour. Alcohol withdrawal complicating assessment of GI bleed. Plan to continue CIWAA protocol with diazepam coverage. Patient will now be n.p.o. so we will hold on any more chlordiazepoxide at this time. Recheck hemoglobin after 2 units of packed red blood cells. Respiratory alkalosis Patient is blowing off significant amount of CO2 secondary to her tachypnea. Patient does not have sepsis. She has no source of infection and symptoms and signs are consistent with severe alcohol withdrawal and hypovolemia secondary to blood loss
[2019-08-16] MEDS ORDERED: Pantoprazole 40 MG Vial IVPUSH ONE (21:17)
[2019-08-16] MEDS: Mirtazapine 15 MG Tab PO SCH (21:18)
[2019-08-16] MEDS: Montelukast 10 MG Tab PO SCH (21:19)
[2019-08-16] MEDS ORDERED: Magnesium Sulfate/Water 2 GM in Premix Bag 1 BAG IV ONE (22:00)
--- NOTE | 2019-08-16 22:09 | PCM.CONS ---
H&P History of Present Illness - General Date of Service: 08/16/19 Admit Problem/Dx: Admission Diagnosis/Problem Admission Diagnosis/Problem Alcohol withdrawal syndrome Source of Information: Provider History Limitations: Reports: Altered Mental Status - History of Present Illness Initial Comments - Free Text/Narative: The patient is a 63 y.o lady who presented yesterday for alcohol withdrawal. She has been treated in the ICU. It was noted today that she became tachypneic. She had a subsequent lab draw showing a 5g drop in Hg. She also had one episode of black spit-up. No melena. She also reported to the admitting physician having an endoscopy procedure within the recent past with polyps removed. Review of records through [facility] shows pt had EGD with findings of ulcerative esophagitis, as well as colonoscopy with polyps removed 3-4 weeks ago. She was hospitalized leading up to that endoscopy for findings of UGIB. - Related Data Allergies/Adverse Reactions: Allergies Allergy/AdvReac Type Severity Reaction Status Date / Time levofloxacin [From Levaquin] Allergy Rash Verified 08/15/19 13:01 propoxyphene napsylate AdvReac Headache Verified 08/15/19 13:01 [From Darvocet-N] quetiapine fumarate AdvReac Confusion Verified 08/15/19 13:01 [From Seroquel] Home Medications: Home Meds Fluticasone Propion/Salmeterol [Advair 250-50 Diskus] 1 puff IH DAILY 05/24/16 [History] atorvaSTATin [Lipitor] 20 mg PO DAILY 05/24/16 [History] Albuterol Sulfate [Albuterol Sulfate Hfa] 2 puff PO Q4HR PRN 12/22/18 [History] DULoxetine [Cymbalta] 30 mg PO DAILY 12/22/18 [History] Losartan [Cozaar] 12.5 mg PO DAILY 12/22/18 [History] Omeprazole 20 mg PO ACBREAKFAST 12/22/18 [History] Potassium Chloride 20 meq PO DAILY 12/22/18 [History] Sucralfate [Carafate] 1 gm PO QID 12/22/18 [History] Folic Acid 1 mg PO DAILY #30 tablet 12/23/18 [Rx] Naltrexone 50 mg PO DAILY #30 tablet 12/23/18 [Rx] Thiamine [Vitamin B-1] 100 mg PO BEDTIME #30 tab 12/23/18 [Rx] Cranberry Fruit Extract [Cranberry] 0 mg PO DAILY 04/01/19 [History] Lutein/Minerals/Vit A,C & E [Ocuvite] 1 tab PO DAILY 04/01/19 [History] Magnesium 200 mg PO DAILY #30 tablet 04/01/19 [Rx] Montelukast [Singulair] 10 mg PO BEDTIME 04/01/19 [History] Ondansetron [Zofran ODT] 4 mg PO Q6H PRN #20 tab.dis 04/01/19 [Rx] Dexameth/Neomy/Polymyx B [Maxitrol Ophth Oint] 0 gm EYEBOTH TID tube 07/15/19 [Rx] Lactated Ringers [Ringers, Lactated] 75 ml IV ASDIRECTED bag 07/15/19 [Rx] Mirtazapine [Remeron] 15 mg PO BEDTIME tablet 07/15/19 [Rx] OLANZapine [ZyPREXA] 10 mg PO BEDTIME tablet 07/15/19 [Rx] diazePAM [Valium] 10 mg PO Q8HR tablet 07/15/19 [Rx] Past Medical History HEENT History: Reports: Impaired Vision Other HEENT History: wears glasses Cardiovascular History: Reports: High Cholesterol, Hypertension Respiratory History: Reports: Asthma Gastrointestinal History: Reports: GERD Genitourinary History: Reports: UTI, Recurrent 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 (See Below) Other OB/BYN History: Patient states she started menopause at 54 yoa Neurological History: Reports: Headaches, Chronic Other Neuro History: headaches Psychiatric History: Reports: Addiction, Anxiety, Bipolar, Depression, Eating Disorders Other Psychiatric History: eating disorder at age 14 Endocrine/Metabolic History: Reports: Osteoporosis Hematologic History: Reports: None Immunologic History: Reports: Other (See Below) Other Immunologic History: recurrent staph infections Oncologic (Cancer) History: Reports: None - Infectious Disease History Infectious Disease History: Reports: Chicken Pox, Measles, Mumps - Past Surgical History Head Surgeries/Procedures: Reports: None HEENT Surgical History: Reports: Adenoidectomy, Oral Surgery, Tonsillectomy, Other (See Below) GI Surgical History: Reports: Appendectomy Musculoskeletal Surgical History: Reports: ORIF, Shoulder Surgery, Other (See Below) Other Musculoskeletal Surgeries/Procedures:: wrist ORIF Social & Family History - Family History Family Medical History: Unobtainable (pt with altered mental status) Cardiac: Reports: None - Tobacco Use Smoking Status *Q: Never Smoker Second Hand Smoke Exposure: No - Caffeine Use Caffeine Use: Reports: Coffee Other Caffeine Use: Unknown if ever used due to being currently intoxicated. 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[employer]) H&P Review of Systems - Review of Systems: Review Of Systems: Unable To Obtain Reason Not Obtained: altered mental status Exam - Exam Exam: See Below - Vital Signs Vital Signs: Last Vital Signs Temp 36.7 C 08/16/19 21:03 Pulse 147 H 08/16/19 21:03 Resp 20 08/16/19 21:03 BP 114/76 08/16/19 21:03 Pulse Ox 100 08/16/19 20:51 Weight: 53.977 kg - Exam Quality Assessment: Supplemental Oxygen General: Lethargic, Obtunded HEENT: Conjunctiva Clear Neck: Supple Lungs: No: Normal Respiratory Effort (tachypnea) Cardiovascular: Regular Rhythm, Tachycardia Extremities: Pedal Edema Skin: Warm, Intact Neurological: No: Cranial Nerves Intact (unable to assess) - Patient Data Lab Results Last 24 hrs: Laboratory Results - last 24 hr 08/15/19 08/16/19 08/16/19 Range/Units 21:50 05:20 05:20 WBC 11.17 H (3.98-10.04) K/mm3 RBC 4.34 (3.98-5.22) M/mm3 Hgb 12.1 D (11.2-15.7) gm/dl Hct 38.8 (34.1-44.9) % MCV 89.4 (79.4-94.8) fl MCH 27.9 (25.6-32.2) pg MCHC 31.2 L (32.2-35.5) g/dl RDW Std Deviation 70.7 H (36.4-46.3) fL Plt Count 171 L (182-369) K/mm3 MPV 9.6 (9.4-12.3) fl Neut % (Auto) 83.3 H (34.0-71.1) % Lymph % (Auto) 11.4 L (19.3-51.7) % [place] % (Auto) 4.7 (4.7-12.5) % Eos % (Auto) 0.4 L (0.7-5.8) Baso % (Auto) 0.1 (0.1-1.2) % Neut # (Auto) 9.32 H (1.56-6.13) K/mm3 Lymph # (Auto) 1.27 (1.18-3.74) K/mm3 [place] # (Auto) 0.52 H (0.24-0.36) K/mm3 Eos # (Auto) 0.04 (0.04-0.36) K/mm3 Baso # (Auto) 0.01 (0.01-0.08) K/mm3 Manual Slide Review VBG pH (7.30-7.40) VBG pCO2 (41-51) mmHg VBG pO2 (40-80) mmHG VBG HCO3 (22-26) meq/L VBG O2 Saturation VBG Base Excess (-4.0-2.0) O2 Delivery Device Oxygen Flow Rate Sodium 136 (136-145) mEq/L Potassium 3.4 L (3.5-5.1) mEq/L Chloride 98 (98-107) mEq/L Carbon Dioxide 30 (21-32) mEq/L Anion Gap 11.4 (5-15) BUN 5 L (7-18) mg/dL Creatinine 0.7 (0.55-1.02) mg/dL Est Cr Clr Drug Dosing 71.92 mL/min Estimated GFR (MDRD) > 60 (>60) mL/min BUN/Creatinine Ratio 7.1 L (14-18) Glucose 130 H (80-115) mg/dL POC Glucose (80-115) mg/dL Calcium 8.1 L (8.5-10.1) mg/dL Phosphorus 1.8 L (2.6-4.7) mg/dL Magnesium 2.5 H 2.1 (1.8-2.4) mg/dl Total Bilirubin 1.2 H (0.2-1.0) mg/dL AST 39 H (15-37) U/L ALT 25 (14-59) U/L Alkaline Phosphatase 132 H (46-116) U/L Troponin I (0.00-0.056) ng/mL Total Protein 5.8 L (6.4-8.2) g/dl Albumin 3.1 L (3.4-5.0) g/dl Globulin 2.7 gm/dL Albumin/Globulin Ratio 1.2 (1-2) Vitamin D 25-Hydroxy 20.5 L (30.0-100.0) ng/ml Blood Type Gel Antibody Screen Crossmatch 08/16/19 08/16/19 08/16/19 Range/Units 19:38 20:04 20:04 WBC 7.44 (3.98-10.04) K/mm3 RBC 2.64 L (3.98-5.22) M/mm3 Hgb 7.2 L* D (11.2-15.7) gm/dl Hct 25.0 L (34.1-44.9) % MCV 94.7 D (79.4-94.8) fl MCH 27.3 (25.6-32.2) pg MCHC 28.8 L (32.2-35.5) g/dl RDW Std Deviation 72.5 H (36.4-46.3) fL Plt Count 140 L (182-369) K/mm3 MPV 9.8 (9.4-12.3) fl Neut % (Auto) 84.4 H (34.0-71.1) % Lymph % (Auto) 11.8 L (19.3-51.7) % [place] % (Auto) 3.6 L (4.7-12.5) % Eos % (Auto) 0 L (0.7-5.8) Baso % (Auto) 0.1 (0.1-1.2) % Neut # (Auto) 6.27 H (1.56-6.13) K/mm3 Lymph # (Auto) 0.88 L (1.18-3.74) K/mm3 [place] # (Auto) 0.27 (0.24-0.36) K/mm3 Eos # (Auto) 0.00 L (0.04-0.36) K/mm3 Baso # (Auto) 0.01 (0.01-0.08) K/mm3 Manual Slide Review Abnormal smear VBG pH 7.52 H (7.30-7.40) VBG pCO2 32.2 L (41-51) mmHg VBG pO2 58.0 (40-80) mmHG VBG HCO3 26.4 H (22-26) meq/L VBG O2 Saturation 90.1 VBG Base Excess 3.7 H (-4.0-2.0) O2 Delivery Device Room air Oxygen Flow Rate Yeast Maker Sodium 139 (136-145) mEq/L Potassium 4.3 (3.5-5.1) mEq/L Chloride 105 (98-107) mEq/L Carbon Dioxide 28 (21-32) mEq/L Anion Gap 10.3 (5-15) BUN 26 H (7-18) mg/dL Creatinine 0.7 (0.55-1.02) mg/dL Est Cr Clr Drug Dosing 71.92 mL/min Estimated GFR (MDRD) > 60 (>60) mL/min BUN/Creatinine Ratio 37.1 H (14-18) Glucose 113 (80-115) mg/dL POC Glucose (80-115) mg/dL Calcium 7.6 L (8.5-10.1) mg/dL Phosphorus 1.3 L (2.6-4.7) mg/dL Magnesium 1.7 L (1.8-2.4) mg/dl Total Bilirubin (0.2-1.0) mg/dL AST (15-37) U/L ALT (14-59) U/L Alkaline Phosphatase (46-116) U/L Troponin I (0.00-0.056) ng/mL Total Protein (6.4-8.2) g/dl Albumin (3.4-5.0) g/dl Globulin gm/dL Albumin/Globulin Ratio (1-2) Vitamin D 25-Hydroxy (30.0-100.0) ng/ml Blood Type Gel Antibody Screen Crossmatch 08/16/19 08/16/19 08/16/19 Range/Units 20:04 20:41 21:02 WBC (3.98-10.04) K/mm3 RBC (3.98-5.22) M/mm3 Hgb (11.2-15.7) gm/dl Hct (34.1-44.9) % MCV (79.4-94.8) fl MCH (25.6-32.2) pg MCHC (32.2-35.5) g/dl RDW Std Deviation (36.4-46.3) fL Plt Count (182-369) K/mm3 MPV (9.4-12.3) fl Neut % (Auto) (34.0-71.1) % Lymph % (Auto) (19.3-51.7) % [place] % (Auto) (4.7-12.5) % Eos % (Auto) (0.7-5.8) Baso % (Auto) (0.1-1.2) % Neut # (Auto) (1.56-6.13) K/mm3 Lymph # (Auto) (1.18-3.74) K/mm3 [place] # (Auto) (0.24-0.36) K/mm3 Eos # (Auto) (0.04-0.36) K/mm3 Baso # (Auto) (0.01-0.08) K/mm3 Manual Slide Review VBG pH (7.30-7.40) VBG pCO2 (41-51) mmHg VBG pO2 (40-80) mmHG VBG HCO3 (22-26) meq/L VBG O2 Saturation VBG Base Excess (-4.0-2.0) O2 Delivery Device Oxygen Flow Rate Sodium (136-145) mEq/L Potassium (3.5-5.1) mEq/L Chloride (98-107) mEq/L Carbon Dioxide (21-32) mEq/L Anion Gap (5-15) BUN (7-18) mg/dL Creatinine (0.55-1.02) mg/dL Est Cr Clr Drug Dosing mL/min Estimated GFR (MDRD) (>60) mL/min BUN/Creatinine Ratio (14-18) Glucose (80-115) mg/dL POC Glucose 138 H (80-115) mg/dL Calcium (8.5-10.1) mg/dL Phosphorus (2.6-4.7) mg/dL Magnesium (1.8-2.4) mg/dl Total Bilirubin (0.2-1.0) mg/dL AST (15-37) U/L ALT (14-59) U/L Alkaline Phosphatase (46-116) U/L Troponin I < 0.017 (0.00-0.056) ng/mL Total Protein (6.4-8.2) g/dl Albumin (3.4-5.0) g/dl Globulin gm/dL Albumin/Globulin Ratio (1-2) Vitamin D 25-Hydroxy (30.0-100.0) ng/ml Blood Type O POSITIVE Gel Antibody Screen Negative Crossmatch See Detail 08/16/19 Range/Units 21:20 WBC 10.13 H (3.98-10.04) K/mm3 RBC 2.75 L (3.98-5.22) M/mm3 Hgb 7.6 L (11.2-15.7) gm/dl Hct 25.5 L (34.1-44.9) % MCV 92.7 (79.4-94.8) fl MCH 27.6 (25.6-32.2) pg MCHC 29.8 L (32.2-35.5) g/dl RDW Std Deviation 68.7 H (36.4-46.3) fL Plt Count 133 L (182-369) K/mm3 MPV 9.7 (9.4-12.3) fl Neut % (Auto) 80.1 H (34.0-71.1) % Lymph % (Auto) 15.3 L (19.3-51.7) % [place] % (Auto) 4.4 L (4.7-12.5) % Eos % (Auto) 0 L (0.7-5.8) Baso % (Auto) 0.1 (0.1-1.2) % Neut # (Auto) 8.11 H (1.56-6.13) K/mm3 Lymph # (Auto) 1.55 (1.18-3.74) K/mm3 [place] # (Auto) 0.45 H (0.24-0.36) K/mm3 Eos # (Auto) 0.00 L (0.04-0.36) K/mm3 Baso # (Auto) 0.01 (0.01-0.08) K/mm3 Manual Slide Review Abnormal smear VBG pH (7.30-7.40) VBG pCO2 (41-51) mmHg VBG pO2 (40-80) mmHG VBG HCO3 (22-26) meq/L VBG O2 Saturation VBG Base Excess (-4.0-2.0) O2 Delivery Device Oxygen Flow Rate Sodium (136-145) mEq/L Potassium (3.5-5.1) mEq/L Chloride (98-107) mEq/L Carbon Dioxide (21-32) mEq/L Anion Gap (5-15) BUN (7-18) mg/dL Creatinine (0.55-1.02) mg/dL Est Cr Clr Drug Dosing mL/min Estimated GFR (MDRD) (>60) mL/min BUN/Creatinine Ratio (14-18) Glucose (80-115) mg/dL POC Glucose (80-115) mg/dL Calcium (8.5-10.1) mg/dL Phosphorus (2.6-4.7) mg/dL Magnesium (1.8-2.4) mg/dl Total Bilirubin (0.2-1.0) mg/dL AST (15-37) U/L ALT (14-59) U/L Alkaline Phosphatase (46-116) U/L Troponin I (0.00-0.056) ng/mL Total Protein (6.4-8.2) g/dl Albumin (3.4-5.0) g/dl Globulin gm/dL Albumin/Globulin Ratio (1-2) Vitamin D 25-Hydroxy (30.0-100.0) ng/ml Blood Type Gel Antibody Screen Crossmatch Result Diagrams: 08/16/19 21:20 08/16/19 20:04 Sepsis Event Note - Evaluation Sepsis Screening Result: No Definite Risk - Focused Exam Vital Signs: Vital Signs Temp Temp Pulse Pulse Resp BP BP 08/16/19 21:03 36.7 C 147 H 20 114/76 08/16/19 20:51 37.1 C 147 H 40 H 105/61 08/16/19 20:48 37.1 C 145 H 40 H 08/16/19 20:00 37.3 C 142 H 47 H 08/16/19 16:00 37.0 C 30 H 95/74 08/16/19 15:41 84/50 L 08/16/19 15:02 37 H 72/40 L 08/16/19 14:51 33 H 84/53 L 08/16/19 14:00 31 H 72/43 L 08/16/19 13:52 32 H 74/44 L 08/16/19 13:34 27 H 80/49 L 08/16/19 13:00 154 H 29 H 82/44 L 08/16/19 12:00 36.4 C 24 H 106/55 L 08/16/19 11:20 27 H 08/16/19 10:30 08/16/19 10:00 30 H 128/83 Pulse Ox 08/16/19 21:03 08/16/19 20:51 100 08/16/19 20:48 100 08/16/19 20:00 100 08/16/19 16:00 94 L 08/16/19 15:41 95 08/16/19 15:02 94 L 08/16/19 14:51 93 L 08/16/19 14:00 91 L 08/16/19 13:52 95 08/16/19 13:34 08/16/19 13:00 08/16/19 12:00 94 L 08/16/19 11:20 08/16/19 10:30 90 L 08/16/19 10:00 93 L Date Exam was Performed: 08/16/19 Time Exam was Performed: 21:52 *Q Meaningful Use (ADM) - VTE Risk Assess *Q Each Risk Factor Represents 1 Point: Medical Patient Currently on Bedrest Total Score 1 Point Risk Factors: 1 Each Risk Factor Represents 2 Points: Age 60 - 74 Years Total Score 2 Point Risk Factors: 2 Consult PN Assessment/Plan Procedures: Procedures AIRWAY INHALATION TREATMENT (08/19/13) ANALGESICS NON-OPIOID 1 OR 2 (12/15/18) ASSAY OF ETHANOL (08/19/13) ASSAY OF LACTIC ACID (05/24/16) ASSAY OF LIPASE (05/24/16) ASSAY OF MAGNESIUM (06/19/19) ASSAY OF NATRIURETIC PEPTIDE (12/30/18) ASSAY OF PHOSPHORUS (03/11/19) ASSAY OF TROPONIN QUANT (08/19/13) ASSAY THYROID STIM HORMONE (05/27/16) C-REACTIVE PROTEIN (12/30/18) CHEST X-RAY 1 VIEW FRONTAL (08/04/16) CHEST X-RAY 2VW FRONTAL&LATL (08/19/13) COMPLETE CBC AUTOMATED (03/11/19) COMPLETE CBC W/AUTO DIFF WBC (06/19/19) COMPREHEN METABOLIC PANEL (06/19/19) CREATINE MB FRACTION (08/19/13) CT HEAD/BRAIN W/O DYE (05/24/16) CT NECK SPINE W/O DYE (06/26/15) CULTURE OTHR SPECIMN AEROBIC (08/19/13) DRUG SCREEN QUANTALCOHOLS (04/01/19) DRUG TEST PRSMV CHEM ANLYZR (06/19/19) DRUG TEST PRSMV INSTRMNT (04/01/19) DX MAMMO INCL CAD UNI (07/04/17) DXA BONE DENSITY AXIAL (01/02/16) ELECTROCARDIOGRAM TRACING (12/15/18) EMERGENCY DEPT VISIT (06/19/19) EMERGENCY DEPT VISIT (03/10/19) EMERGENCY DEPT VISIT (02/26/19) EMERGENCY DEPT VISIT (05/27/16) EMERGENCY DEPT VISIT (05/24/16) EMERGENCY DEPT VISIT (07/01/15) EMERGENCY DEPT VISIT (06/26/15) EMERGENCY DEPT VISIT (06/24/14) EMERGENCY DEPT VISIT (08/19/13) EVALUATE PT USE OF INHALER (08/19/13) HYDRATE IV INFUSION ADD-ON (04/01/19) HYDRATION IV INFUSION INIT (12/28/18) IMMUNIZATION ADMIN (05/24/16) INFLUENZA ASSAY W/OPTIC (04/01/19) INJECTION FOR SHOULDER X-RAY (11/21/16) MEASURE BLOOD OXYGEN LEVEL (08/19/13) METABOLIC PANEL TOTAL CA (03/11/19) MRI JOINT UPR EXTREM W/DYE (11/21/16) NEEDLE LOCALIZATION BY XRAY (11/21/16) PROTHROMBIN TIME (06/19/19) PT EVALUATION (08/19/13) ROUTINE VENIPUNCTURE (06/19/19) RPR F/E/E/N/L/M 2.5 CM/< (06/24/14) RPR F/E/E/N/L/M 2.6-5.0 CM (05/24/16) SCR MAMMO BI INCL CAD (06/14/17) SMEAR GRAM STAIN (08/19/13) THER/PROPH/DIAG INJ IV PUSH (02/26/19) THER/PROPH/DIAG IV INF ADDON (04/01/19) THER/PROPH/DIAG IV INF INIT (04/01/19) THROMBOPLASTIN TIME PARTIAL (02/26/19) TISSUE EXAM BY PATHOLOGIST (10/06/13) TX/PRO/DX INJ NEW DRUG ADDON (04/01/19) TX/PRO/DX INJ SAME DRUG 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[employer]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 (04/01/19) ULTRASOUND BREAST LIMITED (07/04/17) URINALYSIS AUTO W/O SCOPE (12/15/18) URINALYSIS AUTO W/SCOPE (04/01/19) X-RAY EXAM OF NECK (08/04/16) (1) Upper GI bleed SNOMED Code(s): 56222648 Code(s): K92.2 - GASTROINTESTINAL HEMORRHAGE, UNSPECIFIED Current Visit: Yes (2) Alcohol withdrawal syndrome SNOMED Code(s): 812148261 Code(s): F10.239 - ALCOHOL DEPENDENCE WITH WITHDRAWAL, UNSPECIFIED Priority: High Current Visit: Yes Qualifiers: Complication of substance-induced condition: uncomplicated Qualified Code(s): F10.230 - Alcohol dependence with withdrawal, uncomplicated Problem List Initiated/Reviewed/Updated: Yes Plan: 63 y/o lady with UGIB. recent endoscopy done with findings of ulcerative esophagitis - central line placed for resuscitation with PRBC and multiple fluids needed - protonix gtt - continue ETOH withdrawal protocol - medical management per primary Will continue to evaluate need for urgent/emergent EGD. Pt needs resuscitation before she would be appropriated for anesthesia. Likely rebleeding of the esophagus given very recent EGD done for same symptoms. Radha Adams MD General surgery
[2019-08-16] MEDS ORDERED: Acetaminophen 650 MG Supp RECTAL PRN (22:18)
[2019-08-16] MEDS: Pantoprazole 80 MG in Sodium Chloride 0.9% 100 ML IV SCH (22:22)
--- NOTE | 2019-08-16 22:28 | PCM.PRNOTE ---
- Free Text/Narrative Note: Date: August 16, 2019 Pre-procedure diagnosis: Need for fluids and evidence of blood loss, unable to gain adequate peripheral IV access Post-procedure diagnosis: Same Procedure: right femoral central venous catheter Surgeon: Radha Adams MD Anesthesia: 1% lidocaine Estimated blood loss: 30mL IVF: N/A Indication: The patient is a 63 y/o lady with alcohol withdrawal, who developed signs of acute blood loss. She has difficult venous access and needed more urgent administration of blood and fluids. Also needed the ability to draw blood for labs. Pt is obtunded from ETOH withdrawal, and emergency consent was utilized. Description of the procedure: A time-out was completed verifying correct patient, procedure, and site. The patient was placed in supine position appropriate for central line placement based on the vein to be cannulated. The patients right groin was prepped and draped in sterile fashion. 1% Lidocaine was used to anesthetize the surrounding skin area. The patients right femoral pulse was used to isolate the femoral vein. The vein was accessed on the second puncture, but the guidewire would not thread. The puncture was attempted several times more, each time the wire would not thread. On the fourth attempt, the guidewire was placed into the lumen without difficulty. A triple lumen 7-[place] catheter was introduced into the the femoral vein using the Seldinger technique and under ultrasound guidance. The catheter was threaded smoothly over the guide wire and appropriate blood return was obtained. Each lumen of the catheter was evacuated of air and flushed with sterile saline. Two of the three ports had blood return, but all flushed easily. The catheter was then sutured in place to the skin and a sterile dressing applied. The patient tolerated the procedure well and there were no apparent complications. Blood was drawn off the line during the placement for labs. Radha Adams MD General Surgery
[2019-08-16] MEDS ORDERED: diphenhydrAMINE 50 MG/ML SDV IVPUSH SCH (22:30)
[2019-08-16] MEDS ORDERED: Sodium Phosphate 30 MMOLE in Sodium Chloride 0.9% 250 ML IV ONE (22:30)
[2019-08-16] MEDS ORDERED: Furosemide 20 MG/2 ML VIAL IVPUSH ONE (23:14)
[2019-08-17] MEDS: D5 1/2 NS w/ 20 mEq/L KCl 1,000 ML IV SCH ×3 (01:00→21:22)
[2019-08-17] MEDS ORDERED: diphenhydrAMINE 50 MG/ML SDV IVPUSH PRN (01:00)
[2019-08-17] MEDS: chlordiazePOXIDE 25 MG Cap PO SCH ×4 (01:28→14:27)
[2019-08-17] MEDS: Diazepam 5 MG Tab PO SCH ×3 (05:35→21:38)
[2019-08-17] MEDS: Pantoprazole 40 MG Vial IVPUSH SCH (05:36)
[2019-08-17] MEDS ORDERED: Pantoprazole 40 MG Tab.CR PO SCH (06:00)
[2019-08-17] MEDS: Calcium Carbonate/Vitamin D3 600 MG-200 Units Tab PO SCH ×3 (06:09→17:01)
[2019-08-17] MEDS: Pantoprazole 80 MG in Sodium Chloride 0.9% 100 ML IV SCH ×2 (06:30→16:45)
[2019-08-17] MEDS ORDERED: Magnesium Sulfate/Water 2 GM in Premix Bag 1 BAG IV ONE (08:01)
--- NOTE | 2019-08-17 08:04 | PCM.CONSN ---
- General Info Date of Service: 08/17/19 Subjective Update: Patient had transfusion of 2 units of blood last night. Her medical staff, however, patient did not have improvement in her clinical status. Her hemoglobin was rechecked and had a increased. She has not had any bowel movement. Symptoms as related to continuing ongoing alcohol withdrawal - Patient Data Vitals - Most Recent: Last Vital Signs Temp 36.3 C 08/17/19 06:00 Pulse 128 H 08/17/19 06:00 Resp 35 H 08/17/19 06:00 BP 112/71 08/17/19 04:59 Pulse Ox 100 08/17/19 06:00 Weight - Most Recent: 55.429 kg I&O - Last 24 Hours: Intake & Output 08/16/19 08/17/19 08/17/19 22:59 06:59 14:59 Intake Total 4275 558 Output Total 775 700 Balance 3500 -142 Lab Results Last 24 Hours: Laboratory Results - last 24 hr 08/16/19 08/16/19 08/16/19 Range/Units 19:38 20:04 20:04 WBC 7.44 (3.98-10.04) K/mm3 RBC 2.64 L (3.98-5.22) M/mm3 Hgb 7.2 L* D (11.2-15.7) gm/dl Hct 25.0 L (34.1-44.9) % MCV 94.7 D (79.4-94.8) fl MCH 27.3 (25.6-32.2) pg MCHC 28.8 L (32.2-35.5) g/dl RDW Std Deviation 72.5 H (36.4-46.3) fL Plt Count 140 L (182-369) K/mm3 MPV 9.8 (9.4-12.3) fl Neut % (Auto) 84.4 H (34.0-71.1) % Lymph % (Auto) 11.8 L (19.3-51.7) % Anderson % (Auto) 3.6 L (4.7-12.5) % Eos % (Auto) 0 L (0.7-5.8) Baso % (Auto) 0.1 (0.1-1.2) % Neut # (Auto) 6.27 H (1.56-6.13) K/mm3 Lymph # (Auto) 0.88 L (1.18-3.74) K/mm3 Anderson # (Auto) 0.27 (0.24-0.36) K/mm3 Eos # (Auto) 0.00 L (0.04-0.36) K/mm3 Baso # (Auto) 0.01 (0.01-0.08) K/mm3 Manual Slide Review Abnormal smear PT (9.7-12.0) SECONDS INR APTT (22-31) SECONDS VBG pH 7.52 H (7.30-7.40) VBG pCO2 32.2 L (41-51) mmHg VBG pO2 58.0 (40-80) mmHG VBG HCO3 26.4 H (22-26) meq/L VBG O2 Saturation 90.1 VBG Base Excess 3.7 H (-4.0-2.0) O2 Delivery Device Room air Oxygen Flow Rate [employer] Sodium 139 (136-145) mEq/L Potassium 4.3 (3.5-5.1) mEq/L Chloride 105 (98-107) mEq/L Carbon Dioxide 28 (21-32) mEq/L Anion Gap 10.3 (5-15) BUN 26 H (7-18) mg/dL Creatinine 0.7 (0.55-1.02) mg/dL Est Cr Clr Drug Dosing 71.92 mL/min Estimated GFR (MDRD) > 60 (>60) mL/min BUN/Creatinine Ratio 37.1 H (14-18) Glucose 113 (80-115) mg/dL POC Glucose (80-115) mg/dL Calcium 7.6 L (8.5-10.1) mg/dL Phosphorus 1.3 L (2.6-4.7) mg/dL Magnesium 1.7 L (1.8-2.4) mg/dl Total Bilirubin (0.2-1.0) mg/dL AST (15-37) U/L ALT (14-59) U/L Alkaline Phosphatase (46-116) U/L Troponin I (0.00-0.056) ng/mL Total Protein (6.4-8.2) g/dl Albumin (3.4-5.0) g/dl Globulin gm/dL Albumin/Globulin Ratio (1-2) Blood Type Gel Antibody Screen Crossmatch 06/21/20 06/21/20 06/21/20 Range/Units 20:04 20:24 20:41 WBC (3.98-10.04) K/mm3 RBC (3.98-5.22) M/mm3 Hgb (11.2-15.7) gm/dl Hct (34.1-44.9) % MCV (79.4-94.8) fl MCH (25.6-32.2) pg MCHC (32.2-35.5) g/dl RDW Std Deviation (36.4-46.3) fL Plt Count (182-369) K/mm3 MPV (9.4-12.3) fl Neut % (Auto) (34.0-71.1) % Lymph % (Auto) (19.3-51.7) % Anderson % (Auto) (4.7-12.5) % Eos % (Auto) (0.7-5.8) Baso % (Auto) (0.1-1.2) % Neut # (Auto) (1.56-6.13) K/mm3 Lymph # (Auto) (1.18-3.74) K/mm3 Anderson # (Auto) (0.24-0.36) K/mm3 Eos # (Auto) (0.04-0.36) K/mm3 Baso # (Auto) (0.01-0.08) K/mm3 Manual Slide Review PT 12.2 H (9.7-12.0) SECONDS INR 1.13 APTT 30 D (22-31) SECONDS VBG pH (7.30-7.40) VBG pCO2 (41-51) mmHg VBG pO2 (40-80) mmHG VBG HCO3 (22-26) meq/L VBG O2 Saturation VBG Base Excess (-4.0-2.0) O2 Delivery Device Oxygen Flow Rate Sodium (136-145) mEq/L Potassium (3.5-5.1) mEq/L Chloride (98-107) mEq/L Carbon Dioxide (21-32) mEq/L Anion Gap (5-15) BUN (7-18) mg/dL Creatinine (0.55-1.02) mg/dL Est Cr Clr Drug Dosing mL/min Estimated GFR (MDRD) (>60) mL/min BUN/Creatinine Ratio (14-18) Glucose (80-115) mg/dL POC Glucose 138 H (80-115) mg/dL Calcium (8.5-10.1) mg/dL Phosphorus (2.6-4.7) mg/dL Magnesium (1.8-2.4) mg/dl Total Bilirubin (0.2-1.0) mg/dL AST (15-37) U/L ALT (14-59) U/L Alkaline Phosphatase (46-116) U/L Troponin I (0.00-0.056) ng/mL Total Protein (6.4-8.2) g/dl Albumin (3.4-5.0) g/dl Globulin gm/dL Albumin/Globulin Ratio (1-2) Blood Type O POSITIVE Gel Antibody Screen Negative Crossmatch See Detail 08/16/19 08/16/19 08/16/19 Range/Units 21:02 21:20 23:53 WBC 10.13 H (3.98-10.04) K/mm3 RBC 2.75 L (3.98-5.22) M/mm3 Hgb 7.6 L 10.4 L D (11.2-15.7) gm/dl Hct 25.5 L (34.1-44.9) % MCV 92.7 (79.4-94.8) fl MCH 27.6 (25.6-32.2) pg MCHC 29.8 L (32.2-35.5) g/dl RDW Std Deviation 68.7 H (36.4-46.3) fL Plt Count 133 L (182-369) K/mm3 MPV 9.7 (9.4-12.3) fl Neut % (Auto) 80.1 H (34.0-71.1) % Lymph % (Auto) 15.3 L (19.3-51.7) % Anderson % (Auto) 4.4 L (4.7-12.5) % Eos % (Auto) 0 L (0.7-5.8) Baso % (Auto) 0.1 (0.1-1.2) % Neut # (Auto) 8.11 H (1.56-6.13) K/mm3 Lymph # (Auto) 1.55 (1.18-3.74) K/mm3 Anderson # (Auto) 0.45 H (0.24-0.36) K/mm3 Eos # (Auto) 0.00 L (0.04-0.36) K/mm3 Baso # (Auto) 0.01 (0.01-0.08) K/mm3 Manual Slide Review Abnormal smear PT (9.7-12.0) SECONDS INR APTT (22-31) SECONDS VBG pH (7.30-7.40) VBG pCO2 (41-51) mmHg VBG pO2 (40-80) mmHG VBG HCO3 (22-26) meq/L VBG O2 Saturation VBG Base Excess (-4.0-2.0) O2 Delivery Device Oxygen Flow Rate Sodium (136-145) mEq/L Potassium (3.5-5.1) mEq/L Chloride (98-107) mEq/L Carbon Dioxide (21-32) mEq/L Anion Gap (5-15) BUN (7-18) mg/dL Creatinine (0.55-1.02) mg/dL Est Cr Clr Drug Dosing mL/min Estimated GFR (MDRD) (>60) mL/min BUN/Creatinine Ratio (14-18) Glucose (80-115) mg/dL POC Glucose (80-115) mg/dL Calcium (8.5-10.1) mg/dL Phosphorus (2.6-4.7) mg/dL Magnesium (1.8-2.4) mg/dl Total Bilirubin (0.2-1.0) mg/dL AST (15-37) U/L ALT (14-59) U/L Alkaline Phosphatase (46-116) U/L Troponin I < 0.017 (0.00-0.056) ng/mL Total Protein (6.4-8.2) g/dl Albumin (3.4-5.0) g/dl Globulin gm/dL Albumin/Globulin Ratio (1-2) Blood Type Gel Antibody Screen Crossmatch 08/17/19 08/17/19 Range/Units 04:55 04:55 WBC 12.14 H (3.98-10.04) K/mm3 RBC 3.74 L (3.98-5.22) M/mm3 Hgb 10.3 L (11.2-15.7) gm/dl Hct 32.6 L (34.1-44.9) % MCV 87.2 D (79.4-94.8) fl MCH 27.5 (25.6-32.2) pg MCHC 31.6 L (32.2-35.5) g/dl RDW Std Deviation 62.2 H (36.4-46.3) fL Plt Count 119 L (182-369) K/mm3 MPV 9.7 (9.4-12.3) fl Neut % (Auto) 86.0 H (34.0-71.1) % Lymph % (Auto) 10.2 L (19.3-51.7) % Anderson % (Auto) 3.5 L (4.7-12.5) % Eos % (Auto) 0 L (0.7-5.8) Baso % (Auto) 0.1 (0.1-1.2) % Neut # (Auto) 10.45 H (1.56-6.13) K/mm3 Lymph # (Auto) 1.24 (1.18-3.74) K/mm3 Anderson # (Auto) 0.42 H (0.24-0.36) K/mm3 Eos # (Auto) 0.00 L (0.04-0.36) K/mm3 Baso # (Auto) 0.01 (0.01-0.08) K/mm3 Manual Slide Review Abnormal smear PT (9.7-12.0) SECONDS INR APTT (22-31) SECONDS VBG pH (7.30-7.40) VBG pCO2 (41-51) mmHg VBG pO2 (40-80) mmHG VBG HCO3 (22-26) meq/L VBG O2 Saturation VBG Base Excess (-4.0-2.0) O2 Delivery Device Oxygen Flow Rate Sodium 139 (136-145) mEq/L Potassium 3.5 (3.5-5.1) mEq/L Chloride 107 (98-107) mEq/L Carbon Dioxide 24 (21-32) mEq/L Anion Gap 11.5 (5-15) BUN 28 H (7-18) mg/dL Creatinine 0.7 (0.55-1.02) mg/dL Est Cr Clr Drug Dosing 73.85 mL/min Estimated GFR (MDRD) > 60 (>60) mL/min BUN/Creatinine Ratio 40.0 H (14-18) Glucose 100 (80-115) mg/dL POC Glucose (80-115) mg/dL Calcium 7.1 L (8.5-10.1) mg/dL Phosphorus 3.5 (2.6-4.7) mg/dL Magnesium 1.8 (1.8-2.4) mg/dl Total Bilirubin 0.7 (0.2-1.0) mg/dL AST 34 (15-37) U/L ALT 22 (14-59) U/L Alkaline Phosphatase 63 (46-116) U/L Troponin I (0.00-0.056) ng/mL Total Protein 4.2 L (6.4-8.2) g/dl Albumin 2.0 L (3.4-5.0) g/dl Globulin 2.2 gm/dL Albumin/Globulin Ratio 0.9 L (1-2) Blood Type Gel Antibody Screen Crossmatch Med Orders - Current: Current Medications Acetaminophen (Tylenol) 650 mg RECTAL Q4H PRN PRN Reason: Fever Last Admin: 08/16/19 22:18 Dose: 650 mg Documented by: Albuterol (Proventil Hfa) 0 gm INH Q4H PRN PRN Reason: Shortness of Breath Calcium Carbonate (Calcium Carbonate/Vitamin D 600 Mg-200 Unit) 1 tab PO TIDMEALS [facility] Last Admin: 08/17/19 06:09 Dose: Not Given Documented by: Calcium Carbonate/Glycine (Tums) 1,000 mg PO Q6HR PRN PRN Reason: Indigestion Last Admin: 08/16/19 06:31 Dose: 1,000 mg Documented by: Chlordiazepoxide HCl (Librium) 50 mg PO Q4H [facility] Stop: 08/17/19 13:31 Last Admin: 08/17/19 05:34 Dose: Not Given Documented by: Cholecalciferol (Vitamin D3) 5,000 unit PO DAILY [facility] Last Admin: 08/16/19 08:32 Dose: 5,000 unit Documented by: Diazepam (Valium.) 5 - 10 mg PO Q1H PRN PRN Reason: Withdrawal Symptoms Last Admin: 08/16/19 06:56 Dose: 10 mg Documented by: Diazepam (Valium.) 10 mg PO Q8HR [facility] Last Admin: 08/17/19 05:35 Dose: Not Given Documented by: Diazepam (Valium) 5 - 10 mg IVPUSH SEECOMMENT PRN PRN Reason: Withdrawal Symptoms Last Admin: 08/17/19 07:39 Dose: 10 mg Documented by: Diphenhydramine HCl (Benadryl) 50 mg IVPUSH Q6H PRN PRN Reason: Itching Folic Acid (Folic Acid) 1 mg PO BEDTIME [facility] Last Admin: 08/16/19 21:18 Dose: Not Given Documented by: Folic Acid (Folic Acid) 1 mg PO DAILY [facility] Last Admin: 08/16/19 08:31 Dose: 1 mg Documented by: Sodium Chloride (Normal Saline) 1,000 mls @ 1,000 mls/hr IV .BOLUS [facility] Last Admin: 08/15/19 13:42 Dose: 1,000 mls/hr Documented by: Potassium Chloride/Dextrose/Sod Cl (D5 1/2 Ns W/ 20 Meq/L Kcl) 1,000 mls @ 100 mls/hr IV ASDIRECTED [facility] Last Admin: 08/17/19 01:00 Dose: 100 mls/hr Documented by: Pantoprazole Sodium 80 mg/ (Sodium Chloride) 100 mls @ 10 mls/hr IV Q10H [facility] Last Admin: 08/17/19 06:30 Dose: 10 mls/hr Documented by: Losartan Potassium (Cozaar) 12.5 mg PO DAILY [facility] Last Admin: 08/16/19 08:31 Dose: 12.5 mg Documented by: Magnesium Oxide (Magnesium Oxide) 400 mg PO BID [facility] Last Admin: 08/16/19 21:16 Dose: Not Given Documented by: Mirtazapine (Remeron) 15 mg PO BEDTIME [facility] Last Admin: 08/16/19 21:18 Dose: Not Given Documented by: Montelukast Sodium (Singulair) 10 mg PO BEDTIME [facility] Last Admin: 08/16/19 21:19 Dose: Not Given Documented by: Naltrexone HCl (Naltrexone) 50 mg PO DAILY [facility] Last Admin: 08/16/19 08:31 Dose: 50 mg Documented by: Olanzapine (Zyprexa) 10 mg PO BEDTIME [facility] Last Admin: 08/16/19 21:19 Dose: Not Given Documented by: Ondansetron HCl (Zofran) 4 mg IV Q4H PRN PRN Reason: Nausea/Vomiting Last Admin: 08/15/19 23:53 Dose: 4 mg Documented by: Pantoprazole Sodium (Protonix Iv) 40 mg IVPUSH Q12H [facility] Last Admin: 08/17/19 05:36 Dose: Not Given Documented by: Simvastatin (Zocor) 20 mg PO DAILY [facility] Last Admin: 08/16/19 08:32 Dose: 20 mg Documented by: Sodium Chloride (Saline Flush) 10 ml FLUSH ASDIRECTED PRN PRN Reason: Keep Vein Open Last Admin: 08/15/19 13:44 Dose: 10 ml Documented by: Sucralfate (Carafate) 1 gm PO QID [facility] Last Admin: 08/16/19 21:16 Dose: Not Given Documented by: Thiamine HCl (Vitamin B-1) 100 mg PO DAILY [facility] Last Admin: 08/16/19 08:34 Dose: 100 mg Documented by: Thiamine HCl (Vitamin B-1) 100 mg PO BEDTIME [facility] Last Admin: 08/16/19 21:19 Dose: Not Given Documented by: Discontinued Medications Al Hydroxide/Mg Hydroxide (Mag-Al Plus) 30 ml PO ONETIME ONE Stop: 08/16/19 01:08 Last Admin: 08/16/19 01:25 Dose: 30 ml Documented by: Calcium Carbonate/Glycine (Tums) 1,000 mg PO ONETIME ONE Stop: 08/15/19 16:43 Last Admin: 08/15/19 17:13 Dose: 1,000 mg Documented by: Calcium Carbonate/Glycine (Tums) 1,000 mg PO Q2HR PRN PRN Reason: Indigestion Chlordiazepoxide HCl (Librium) 75 mg PO ONETIME ONE Stop: 08/16/19 09:42 Last Admin: 08/16/19 09:45 Dose: 75 mg Documented by: Chlordiazepoxide HCl (Librium) 0 mg PO Q1H PRN; Protocol PRN Reason: Withdrawal Symptoms Chlordiazepoxide HCl (Librium) 50 mg PO Q6H [facility] Stop: 08/18/19 11:31 Chlordiazepoxide HCl (Librium) 25 mg PO Q4H [facility] Stop: 08/19/19 13:31 Chlordiazepoxide HCl (Librium) 25 mg PO Q6H [facility] Stop: 08/20/19 11:31 Diazepam (Valium) 10 mg IVPUSH ONETIME ONE Stop: 08/15/19 16:15 Last Admin: 08/15/19 16:36 Dose: 10 mg Documented by: Diazepam (Valium) 5 - 10 mg IVPUSH Q1H PRN PRN Reason: Withdrawal Symptoms Last Admin: 08/16/19 23:15 Dose: 10 mg Documented by: Diphenhydramine HCl (Benadryl) 50 mg IVPUSH Q6H [facility] Last Admin: 08/16/19 23:04 Dose: 50 mg Documented by: Enoxaparin Sodium (Lovenox) 40 mg SUBCUT DAILY [facility] Last Admin: 08/16/19 08:34 Dose: 40 mg Documented by: Furosemide (Lasix) 20 mg IVPUSH NOW ONE Stop: 08/16/19 23:15 Last Admin: 08/16/19 23:26 Dose: 20 mg Documented by: Haloperidol Lactate (Haldol) 5 mg IVPUSH ONETIME ONE Stop: 08/16/19 09:42 Last Admin: 08/16/19 09:45 Dose: 5 mg Documented by: Haloperidol Lactate (Haldol) 5 mg IM ONETIME ONE Stop: 08/16/19 12:48 Last Admin: 08/16/19 12:52 Dose: 5 mg Documented by: Magnesium Sulfate/Dextrose 1 (gm/ Premix) 100 mls @ 100 mls/hr IV Q1H [facility] Stop: 08/15/19 18:29 Last Admin: 08/15/19 18:08 Dose: 100 mls/hr Documented by: Magnesium Sulfate 2 gm/ Premix 50 mls @ 25 mls/hr IV ONETIME ONE Stop: 08/15/19 23:31 Last Admin: 08/15/19 22:36 Dose: Not Given Documented by: Sodium Chloride (Normal Saline) 1,000 mls @ 999 mls/hr IV ONETIME ONE Stop: 08/16/19 16:03 Last Admin: 08/16/19 15:12 Dose: 999 mls/hr Documented by: Sodium Chloride (Normal Saline) 250 mls @ 250 mls/hr IV .BOLUS ONE Stop: 08/16/19 21:59 Last Admin: 08/16/19 21:15 Dose: 250 mls/hr Documented by: Sodium Chloride (Normal Saline) Confirm Administered Dose 1,000 mls @ as directed .ROUTE .STK-MED ONE Stop: 08/16/19 20:37 Last Admin: 08/16/19 21:16 Dose: Not Given Documented by: Sodium Chloride (Normal Saline) Confirm Administered Dose 250 mls @ as directed .ROUTE .STK-MED ONE Stop: 08/16/19 20:38 Last Admin: 08/16/19 21:16 Dose: Not Given Documented by: Magnesium Sulfate 2 gm/ Premix 50 mls @ 25 mls/hr IV ONETIME ONE Stop: 08/16/19 23:59 Last Admin: 08/16/19 22:25 Dose: 25 mls/hr Documented by: Sodium Phosphate 30 mmole/ (Sodium Chloride) 260 mls @ 86.667 mls/hr IV ONETIME ONE Stop: 08/16/19 22:31 Last Admin: 08/16/19 22:34 Dose: 86.667 mls/hr Documented by: Lorazepam (Ativan) 1 mg IVPUSH ONETIME ONE Stop: 08/15/19 13:22 Last Admin: 08/15/19 13:42 Dose: 1 mg Documented by: Metoprolol Tartrate (Lopressor) 5 mg IVPUSH ONETIME ONE Stop: 08/16/19 12:29 Last Admin: 08/16/19 13:00 Dose: 5 mg Documented by: Non-Formulary Medication (Potassium Chloride [Potassium Chloride]) 20 meq PO DAILY [facility] Ondansetron HCl (Zofran) 4 mg IVPUSH ONETIME ONE Stop: 08/15/19 13:13 Last Admin: 08/15/19 13:43 Dose: 4 mg Documented by: Pantoprazole Sodium (Protonix) 40 mg PO ACBREAKFAST [facility] Pantoprazole Sodium (Protonix Iv) 40 mg IVPUSH ONETIME ONE Stop: 08/16/19 21:18 Last Admin: 08/16/19 23:10 Dose: 40 mg Documented by: Potassium Chloride (Klor-Con M20) 20 meq PO BID [facility] Last Admin: 08/16/19 08:31 Dose: 20 meq Documented by: Thiamine HCl (Vitamin B-1) 100 mg IVPUSH ONETIME ONE Stop: 08/15/19 13:15 Last Admin: 08/15/19 13:45 Dose: 100 mg Documented by: Thiamine HCl (Vitamin B-1) 100 mg IVPUSH ONETIME ONE Stop: 08/15/19 21:01 Last Admin: 08/15/19 20:01 Dose: 100 mg Documented by: - Exam Quality Assessment: Supplemental Oxygen, Central Line/PICC General: Lethargic, Obtunded Lungs: No: Normal Respiratory Effort (Tachypnea) Cardiovascular: Regular Rhythm, Tachycardia GI/Abdominal Exam: Soft Sepsis Event Note - Evaluation Sepsis Screening Result: No Definite Risk - Focused Exam Vital Signs: Vital Signs Temp Temp Pulse Pulse Resp BP BP 08/17/19 06:00 36.3 C 128 H 35 H 08/17/19 04:59 37.3 C 143 H 31 H 112/71 08/17/19 03:57 36.7 C 140 H 25 H 118/73 08/17/19 03:00 132 H 118/73 08/17/19 02:00 37.4 C 131 H 28 H 118/66 08/17/19 01:10 49 H 08/17/19 01:01 54 H 130/86 08/17/19 01:00 37.2 C 145 H 51 H 103/78 08/17/19 00:51 22 H 08/17/19 00:50 26 H 124/80 08/17/19 00:46 35 H 136/108 H 08/17/19 00:45 31 H 08/17/19 00:40 41 H 08/17/19 00:30 39 H 08/17/19 00:20 50 H 08/17/19 00:10 29 H 08/17/19 00:01 32 H 120/88 08/17/19 00:00 36.7 C 146 H 41 H 120/88 08/16/19 23:57 37.3 C 142 H 51 H 121/81 08/16/19 23:50 34 H 08/16/19 23:40 44 H 08/16/19 23:30 41 H 08/16/19 23:20 42 H 08/16/19 23:10 45 H 08/16/19 23:01 32 H 08/16/19 23:00 40 H 121/81 08/16/19 22:59 23 H 08/16/19 22:50 40 H 08/16/19 22:48 37.3 C 08/16/19 22:42 36 H 113/83 08/16/19 22:41 37.6 C 152 H 40 H 113/83 08/16/19 22:40 45 H 08/16/19 22:30 39 H 08/16/19 22:20 40 H 08/16/19 22:18 38.2 C H 08/16/19 22:15 37.9 C 152 H 40 H 109/80 08/16/19 22:14 42 H 109/80 08/16/19 22:13 42 H 08/16/19 22:10 42 H 08/16/19 22:01 40 H 08/16/19 22:00 39 H 118/80 08/16/19 21:59 39 H 08/16/19 21:58 38.2 C H 147 H 40 H 110/82 08/16/19 21:57 38.2 C H 149 H 42 H 110/82 08/16/19 21:56 42 H 110/82 08/16/19 21:55 46 H 08/16/19 21:50 26 H 08/16/19 21:40 31 H 08/16/19 21:30 33 H 08/16/19 21:20 37 H 08/16/19 21:10 55 H 08/16/19 21:03 36.7 C 147 H 20 114/76 08/16/19 21:02 50 H 114/76 08/16/19 21:01 37 H 08/16/19 21:00 47 H 08/16/19 20:51 37.1 C 147 H 40 H 105/61 08/16/19 20:50 38 H 08/16/19 20:48 37.1 C 145 H 40 H 105/61 08/16/19 20:40 45 H 08/16/19 20:30 49 H 08/16/19 20:20 36 H 08/16/19 20:10 35 H 08/16/19 20:00 37.3 C 142 H 46 H 105/61 Pulse Ox 08/17/19 06:00 100 08/17/19 04:59 100 08/17/19 03:57 100 08/17/19 03:00 08/17/19 02:00 100 08/17/19 01:10 99 08/17/19 01:01 97 08/17/19 01:00 98 08/17/19 00:51 97 08/17/19 00:50 98 08/17/19 00:46 98 08/17/19 00:45 98 08/17/19 00:40 99 08/17/19 00:30 98 08/17/19 00:20 98 08/17/19 00:10 99 08/17/19 00:01 99 08/17/19 00:00 99 08/16/19 23:57 08/16/19 23:50 100 08/16/19 23:40 100 08/16/19 23:30 99 08/16/19 23:20 99 08/16/19 23:10 100 08/16/19 23:01 99 08/16/19 23:00 99 08/16/19 22:59 100 08/16/19 22:50 99 08/16/19 22:48 08/16/19 22:42 99 08/16/19 22:41 99 08/16/19 22:40 100 08/16/19 22:30 100 08/16/19 22:20 100 08/16/19 22:18 08/16/19 22:15 98 08/16/19 22:14 100 08/16/19 22:13 100 08/16/19 22:10 100 08/16/19 22:01 100 08/16/19 22:00 100 08/16/19 21:59 100 08/16/19 21:58 100 08/16/19 21:57 100 08/16/19 21:56 100 08/16/19 21:55 100 08/16/19 21:50 100 08/16/19 21:40 08/16/19 21:30 100 08/16/19 21:20 100 08/16/19 21:10 100 08/16/19 21:03 08/16/19 21:02 100 08/16/19 21:01 100 08/16/19 21:00 99 08/16/19 20:51 100 08/16/19 20:50 100 08/16/19 20:48 100 08/16/19 20:40 100 08/16/19 20:30 100 08/16/19 20:20 95 08/16/19 20:10 94 L 08/16/19 20:00 93 L Date Exam was Performed: 08/17/19 Time Exam was Performed: 07:59 Consult PN Assessment/Plan Procedures: Procedures AIRWAY INHALATION TREATMENT (08/19/13) ANALGESICS NON-OPIOID 1 OR 2 (12/15/18) ASSAY OF ETHANOL (08/19/13) ASSAY OF LACTIC ACID (05/24/16) ASSAY OF LIPASE (05/24/16) ASSAY OF MAGNESIUM (06/19/19) ASSAY OF NATRIURETIC PEPTIDE (12/30/18) ASSAY OF PHOSPHORUS (03/11/19) ASSAY OF TROPONIN QUANT (08/19/13) ASSAY THYROID STIM HORMONE (05/27/16) C-REACTIVE PROTEIN (12/30/18) CHEST X-RAY 1 VIEW FRONTAL (08/04/16) CHEST X-RAY 2VW FRONTAL&LATL (08/19/13) COMPLETE CBC AUTOMATED (03/11/19) COMPLETE CBC W/AUTO DIFF WBC (06/19/19) COMPREHEN METABOLIC PANEL (06/19/19) CREATINE MB FRACTION (08/19/13) CT HEAD/BRAIN W/O DYE (05/24/16) CT NECK SPINE W/O DYE (06/26/15) CULTURE OTHR SPECIMN AEROBIC (08/19/13) DRUG SCREEN QUANTALCOHOLS (04/01/19) DRUG TEST PRSMV CHEM ANLYZR (06/19/19) DRUG TEST PRSMV INSTRMNT (04/01/19) DX MAMMO INCL CAD UNI (07/04/17) DXA BONE DENSITY AXIAL (01/02/16) ELECTROCARDIOGRAM TRACING (12/15/18) EMERGENCY DEPT VISIT (06/19/19) EMERGENCY DEPT VISIT (03/10/19) EMERGENCY DEPT VISIT (02/26/19) EMERGENCY DEPT VISIT (05/27/16) EMERGENCY DEPT VISIT (05/24/16) EMERGENCY DEPT VISIT (07/01/15) EMERGENCY DEPT VISIT (06/26/15) EMERGENCY DEPT VISIT (06/24/14) EMERGENCY DEPT VISIT (08/19/13) EVALUATE PT USE OF INHALER (08/19/13) HYDRATE IV INFUSION ADD-ON (04/01/19) HYDRATION IV INFUSION INIT (12/28/18) IMMUNIZATION ADMIN (05/24/16) INFLUENZA ASSAY W/OPTIC (04/01/19) INJECTION FOR SHOULDER X-RAY (11/21/16) MEASURE BLOOD OXYGEN LEVEL (08/19/13) METABOLIC PANEL TOTAL CA (03/11/19) MRI JOINT UPR EXTREM W/DYE (11/21/16) NEEDLE LOCALIZATION BY XRAY (11/21/16) PROTHROMBIN TIME (06/19/19) PT EVALUATION (08/19/13) ROUTINE VENIPUNCTURE (06/19/19) RPR F/E/E/N/L/M 2.5 CM/< (06/24/14) RPR F/E/E/N/L/M 2.6-5.0 CM (05/24/16) SCR MAMMO BI INCL CAD (06/14/17) SMEAR GRAM STAIN (08/19/13) THER/PROPH/DIAG INJ IV PUSH (02/26/19) THER/PROPH/DIAG IV INF ADDON (04/01/19) THER/PROPH/DIAG IV INF INIT (04/01/19) THROMBOPLASTIN TIME PARTIAL (02/26/19) TISSUE EXAM BY PATHOLOGIST (10/06/13) TX/PRO/DX INJ NEW DRUG ADDON (04/01/19) TX/PRO/DX INJ SAME DRUG PARTS AND SERVICE MANAGER (04/01/19) ULTRASOUND BREAST LIMITED (07/04/17) URINALYSIS AUTO W/O SCOPE (12/15/18) URINALYSIS AUTO W/SCOPE (04/01/19) X-RAY EXAM OF NECK (08/04/16) (1) Upper GI bleed SNOMED Code(s): 01915419 Code(s): K92.2 - GASTROINTESTINAL HEMORRHAGE, UNSPECIFIED Current Visit: Yes (2) Alcohol withdrawal syndrome SNOMED Code(s): 176897001 Code(s): F10.239 - ALCOHOL DEPENDENCE WITH WITHDRAWAL, UNSPECIFIED Priority: High Current Visit: Yes Qualifiers: Complication of substance-induced condition: uncomplicated Qualified Code(s): F10.230 - Alcohol dependence with withdrawal, uncomplicated Problem List Initiated/Reviewed/Updated: Yes Plan: 63 y/o lady with UGIB. recent endoscopy done with findings of ulcerative esophagitis. No clear ongoing bleeding - continue supportive measures. No active bleeding noted from bowel movements or emesis - protonix gtt - continue ETOH withdrawal protocol - medical management per primary Likely rebleeding of the esophagus given very recent EGD done for same symptoms. Would not do EGD at this point since pt stablized Hg. Please call with change in patient status. Radha Adams MD General surgery
[2019-08-17] MEDS: Potassium Chloride 10 MEQ in Premix Bag 1 BAG IV SCH ×2 (08:55→09:56)
--- NOTE | 2019-08-17 09:10 | CR ---
Chest: 2 views of the chest were obtained. Comparison: Prior chest x-ray of 07/11/19. Patchy areas of increased density within left perihilar region as well as right upper and right lower lung. Heart size and mediastinum are within normal limits. Prior right shoulder surgery is seen. Moderate compression deformity with anterior wedging is noted at the thoracolumbar junction. Age of this is indeterminate. There is endplate irregularity superiorly within the compression deformity and difficult to exclude disc space infection if patient has correlating symptoms. Impression: 1. Patchy areas of increased density as described above suspicious for multiple areas of pneumonia. 2. Compression deformity at the thoracolumbar junction as described above. Diagnostic code #3 Study was dictated in MDT
[2019-08-17] MEDS: Losartan 25 MG Tab PO SCH (09:36)
[2019-08-17] MEDS: Sucralfate 1 GM Tab PO SCH ×4 (09:36→20:28)
[2019-08-17] MEDS: Folic Acid 1 MG Tab PO SCH ×2 (09:36→20:28)
[2019-08-17] MEDS: Magnesium Oxide 400 MG Tab PO SCH ×2 (09:36→20:29)
[2019-08-17] MEDS: Thiamine 100 MG Tab PO SCH ×2 (09:38→20:29)
[2019-08-17] MEDS: Cholecalciferol (Vitamin D3) 5,000 UNIT Tab PO SCH (09:38)
[2019-08-17] MEDS: Simvastatin 20 MG Tab PO SCH (09:38)
[2019-08-17] MEDS: Naltrexone 50 MG Tab PO SCH (09:38)
[2019-08-17] MEDS: cefTRIAXone 2 GM in Sodium Chloride 0.9% 100 ML IV SCH (09:56)
[2019-08-17] MEDS ORDERED: Lactated Ringers 1,000 ML IV ONE (11:02)
[2019-08-17] MEDS ORDERED: Lactated Ringers 1,000 ML ONE (11:04)
--- NOTE | 2019-08-17 15:39 | PCM.PN ---
- General Info Date of Service: 08/17/19 Admission Dx/Problem (Free Text): Admission Diagnosis/Problem Admission Diagnosis/Problem Alcohol withdrawal syndrome Subjective Update: Patient had an uneventful night. She continues to go through severe alcohol withdrawal and is sedated secondary to treatment of her withdrawal symptoms. Patient requires large doses of benzodiazepines in addition she had 2 doses of Haldol for her withdrawal symptoms. She now is having a significant amount of liquid black stools. Patient is responsive but does not answer questions appropriately. - Patient Data Vitals - Most Recent: Last Vital Signs Temp 97.2 F 08/17/19 12:00 Pulse 130 H 08/17/19 12:00 Resp 33 H 08/17/19 14:50 BP 106/71 08/17/19 14:00 Pulse Ox 93 L 08/17/19 14:50 Weight - Most Recent: 55.429 kg I&O - Last 24 Hours: Intake & Output 08/17/19 08/17/19 08/17/19 06:59 14:59 22:59 Intake Total 558 Output Total 700 650 Balance -142 -650 Imaging Impressions - Last 24 Hours: Chest x-ray shows patchy areas of increased density suspicious for multiple areas of pneumonia. Lab Results Last 24 Hours: Laboratory Results - last 24 hr 08/16/19 08/16/19 08/16/19 Range/Units 05:20 19:38 20:04 WBC 7.44 (3.98-10.04) K/mm3 RBC 2.64 L (3.98-5.22) M/mm3 Hgb 7.2 L* D (11.2-15.7) gm/dl Hct 25.0 L (34.1-44.9) % MCV 94.7 D (79.4-94.8) fl MCH 27.3 (25.6-32.2) pg MCHC 28.8 L (32.2-35.5) g/dl RDW Std Deviation 72.5 H (36.4-46.3) fL Plt Count 140 L (182-369) K/mm3 MPV 9.8 (9.4-12.3) fl Neut % (Auto) 84.4 H (34.0-71.1) % Lymph % (Auto) 11.8 L (19.3-51.7) % Kendall % (Auto) 3.6 L (4.7-12.5) % Eos % (Auto) 0 L (0.7-5.8) Baso % (Auto) 0.1 (0.1-1.2) % Neut # (Auto) 6.27 H (1.56-6.13) K/mm3 Lymph # (Auto) 0.88 L (1.18-3.74) K/mm3 Kendall # (Auto) 0.27 (0.24-0.36) K/mm3 Eos # (Auto) 0.00 L (0.04-0.36) K/mm3 Baso # (Auto) 0.01 (0.01-0.08) K/mm3 Manual Slide Review Abnormal smear PT (9.7-12.0) SECONDS INR APTT (22-31) SECONDS VBG pH 7.52 H (7.30-7.40) VBG pCO2 32.2 L (41-51) mmHg VBG pO2 58.0 (40-80) mmHG VBG HCO3 26.4 H (22-26) meq/L VBG O2 Saturation 90.1 VBG Base Excess 3.7 H (-4.0-2.0) O2 Delivery Device Room air Oxygen Flow Rate Experimental Physicist Sodium (136-145) mEq/L Potassium (3.5-5.1) mEq/L Chloride (98-107) mEq/L Carbon Dioxide (21-32) mEq/L Anion Gap (5-15) BUN (7-18) mg/dL Creatinine (0.55-1.02) mg/dL Est Cr Clr Drug Dosing mL/min Estimated GFR (MDRD) (>60) mL/min BUN/Creatinine Ratio (14-18) Glucose (80-115) mg/dL POC Glucose (80-115) mg/dL Lactic Acid (0.4-2.0) mmol/L Calcium (8.5-10.1) mg/dL Phosphorus (2.6-4.7) mg/dL Magnesium (1.8-2.4) mg/dl Total Bilirubin (0.2-1.0) mg/dL AST (15-37) U/L ALT (14-59) U/L Alkaline Phosphatase (46-116) U/L Troponin I (0.00-0.056) ng/mL Total Protein (6.4-8.2) g/dl Albumin (3.4-5.0) g/dl Globulin gm/dL Albumin/Globulin Ratio (1-2) Vitamin D 25-Hydroxy 22.3 L (30.0-100.0) ng/ml Blood Type Gel Antibody Screen Crossmatch 08/16/19 08/16/19 08/16/19 Range/Units 20:04 20:04 20:24 WBC (3.98-10.04) K/mm3 RBC (3.98-5.22) M/mm3 Hgb (11.2-15.7) gm/dl Hct (34.1-44.9) % MCV (79.4-94.8) fl MCH (25.6-32.2) pg MCHC (32.2-35.5) g/dl RDW Std Deviation (36.4-46.3) fL Plt Count (182-369) K/mm3 MPV (9.4-12.3) fl Neut % (Auto) (34.0-71.1) % Lymph % (Auto) (19.3-51.7) % Kendall % (Auto) (4.7-12.5) % Eos % (Auto) (0.7-5.8) Baso % (Auto) (0.1-1.2) % Neut # (Auto) (1.56-6.13) K/mm3 Lymph # (Auto) (1.18-3.74) K/mm3 Kendall # (Auto) (0.24-0.36) K/mm3 Eos # (Auto) (0.04-0.36) K/mm3 Baso # (Auto) (0.01-0.08) K/mm3 Manual Slide Review PT 12.2 H (9.7-12.0) SECONDS INR 1.13 APTT 30 D (22-31) SECONDS VBG pH (7.30-7.40) VBG pCO2 (41-51) mmHg VBG pO2 (40-80) mmHG VBG HCO3 (22-26) meq/L VBG O2 Saturation VBG Base Excess (-4.0-2.0) O2 Delivery Device Oxygen Flow Rate Sodium 139 (136-145) mEq/L Potassium 4.3 (3.5-5.1) mEq/L Chloride 105 (98-107) mEq/L Carbon Dioxide 28 (21-32) mEq/L Anion Gap 10.3 (5-15) BUN 26 H (7-18) mg/dL Creatinine 0.7 (0.55-1.02) mg/dL Est Cr Clr Drug Dosing 71.92 mL/min Estimated GFR (MDRD) > 60 (>60) mL/min BUN/Creatinine Ratio 37.1 H (14-18) Glucose 113 (80-115) mg/dL POC Glucose (80-115) mg/dL Lactic Acid (0.4-2.0) mmol/L Calcium 7.6 L (8.5-10.1) mg/dL Phosphorus 1.3 L (2.6-4.7) mg/dL Magnesium 1.7 L (1.8-2.4) mg/dl Total Bilirubin (0.2-1.0) mg/dL AST (15-37) U/L ALT (14-59) U/L Alkaline Phosphatase (46-116) U/L Troponin I (0.00-0.056) ng/mL Total Protein (6.4-8.2) g/dl Albumin (3.4-5.0) g/dl Globulin gm/dL Albumin/Globulin Ratio (1-2) Vitamin D 25-Hydroxy (30.0-100.0) ng/ml Blood Type O POSITIVE Gel Antibody Screen Negative Crossmatch See Detail 08/16/19 08/16/19 08/16/19 Range/Units 20:41 21:02 21:20 WBC 10.13 H (3.98-10.04) K/mm3 RBC 2.75 L (3.98-5.22) M/mm3 Hgb 7.6 L (11.2-15.7) gm/dl Hct 25.5 L (34.1-44.9) % MCV 92.7 (79.4-94.8) fl MCH 27.6 (25.6-32.2) pg MCHC 29.8 L (32.2-35.5) g/dl RDW Std Deviation 68.7 H (36.4-46.3) fL Plt Count 133 L (182-369) K/mm3 MPV 9.7 (9.4-12.3) fl Neut % (Auto) 80.1 H (34.0-71.1) % Lymph % (Auto) 15.3 L (19.3-51.7) % Kendall % (Auto) 4.4 L (4.7-12.5) % Eos % (Auto) 0 L (0.7-5.8) Baso % (Auto) 0.1 (0.1-1.2) % Neut # (Auto) 8.11 H (1.56-6.13) K/mm3 Lymph # (Auto) 1.55 (1.18-3.74) K/mm3 Kendall # (Auto) 0.45 H (0.24-0.36) K/mm3 Eos # (Auto) 0.00 L (0.04-0.36) K/mm3 Baso # (Auto) 0.01 (0.01-0.08) K/mm3 Manual Slide Review Abnormal smear PT (9.7-12.0) SECONDS INR APTT (22-31) SECONDS VBG pH (7.30-7.40) VBG pCO2 (41-51) mmHg VBG pO2 (40-80) mmHG VBG HCO3 (22-26) meq/L VBG O2 Saturation VBG Base Excess (-4.0-2.0) O2 Delivery Device Oxygen Flow Rate Sodium (136-145) mEq/L Potassium (3.5-5.1) mEq/L Chloride (98-107) mEq/L Carbon Dioxide (21-32) mEq/L Anion Gap (5-15) BUN (7-18) mg/dL Creatinine (0.55-1.02) mg/dL Est Cr Clr Drug Dosing mL/min Estimated GFR (MDRD) (>60) mL/min BUN/Creatinine Ratio (14-18) Glucose (80-115) mg/dL POC Glucose 138 H (80-115) mg/dL Lactic Acid (0.4-2.0) mmol/L Calcium (8.5-10.1) mg/dL Phosphorus (2.6-4.7) mg/dL Magnesium (1.8-2.4) mg/dl Total Bilirubin (0.2-1.0) mg/dL AST (15-37) U/L ALT (14-59) U/L Alkaline Phosphatase (46-116) U/L Troponin I < 0.017 (0.00-0.056) ng/mL Total Protein (6.4-8.2) g/dl Albumin (3.4-5.0) g/dl Globulin gm/dL Albumin/Globulin Ratio (1-2) Vitamin D 25-Hydroxy (30.0-100.0) ng/ml Blood Type Gel Antibody Screen Crossmatch 08/16/19 08/17/19 08/17/19 Range/Units 23:53 04:55 04:55 WBC 12.14 H (3.98-10.04) K/mm3 RBC 3.74 L (3.98-5.22) M/mm3 Hgb 10.4 L D 10.3 L (11.2-15.7) gm/dl Hct 32.6 L (34.1-44.9) % MCV 87.2 D (79.4-94.8) fl MCH 27.5 (25.6-32.2) pg MCHC 31.6 L (32.2-35.5) g/dl RDW Std Deviation 62.2 H (36.4-46.3) fL Plt Count 119 L (182-369) K/mm3 MPV 9.7 (9.4-12.3) fl Neut % (Auto) 86.0 H (34.0-71.1) % Lymph % (Auto) 10.2 L (19.3-51.7) % Kendall % (Auto) 3.5 L (4.7-12.5) % Eos % (Auto) 0 L (0.7-5.8) Baso % (Auto) 0.1 (0.1-1.2) % Neut # (Auto) 10.45 H (1.56-6.13) K/mm3 Lymph # (Auto) 1.24 (1.18-3.74) K/mm3 Kendall # (Auto) 0.42 H (0.24-0.36) K/mm3 Eos # (Auto) 0.00 L (0.04-0.36) K/mm3 Baso # (Auto) 0.01 (0.01-0.08) K/mm3 Manual Slide Review Abnormal smear PT (9.7-12.0) SECONDS INR APTT (22-31) SECONDS VBG pH (7.30-7.40) VBG pCO2 (41-51) mmHg VBG pO2 (40-80) mmHG VBG HCO3 (22-26) meq/L VBG O2 Saturation VBG Base Excess (-4.0-2.0) O2 Delivery Device Oxygen Flow Rate Sodium 139 (136-145) mEq/L Potassium 3.5 (3.5-5.1) mEq/L Chloride 107 (98-107) mEq/L Carbon Dioxide 24 (21-32) mEq/L Anion Gap 11.5 (5-15) BUN 28 H (7-18) mg/dL Creatinine 0.7 (0.55-1.02) mg/dL Est Cr Clr Drug Dosing 73.85 mL/min Estimated GFR (MDRD) > 60 (>60) mL/min BUN/Creatinine Ratio 40.0 H (14-18) Glucose 100 (80-115) mg/dL POC Glucose (80-115) mg/dL Lactic Acid (0.4-2.0) mmol/L Calcium 7.1 L (8.5-10.1) mg/dL Phosphorus 3.5 (2.6-4.7) mg/dL Magnesium 1.8 (1.8-2.4) mg/dl Total Bilirubin 0.7 (0.2-1.0) mg/dL AST 34 (15-37) U/L ALT 22 (14-59) U/L Alkaline Phosphatase 63 (46-116) U/L Troponin I (0.00-0.056) ng/mL Total Protein 4.2 L (6.4-8.2) g/dl Albumin 2.0 L (3.4-5.0) g/dl Globulin 2.2 gm/dL Albumin/Globulin Ratio 0.9 L (1-2) Vitamin D 25-Hydroxy (30.0-100.0) ng/ml Blood Type Gel Antibody Screen Crossmatch 08/17/19 08/17/19 Range/Units 10:24 13:04 WBC (3.98-10.04) K/mm3 RBC (3.98-5.22) M/mm3 Hgb 9.5 L (11.2-15.7) gm/dl Hct 30.4 L (34.1-44.9) % MCV (79.4-94.8) fl MCH (25.6-32.2) pg MCHC (32.2-35.5) g/dl RDW Std Deviation (36.4-46.3) fL Plt Count (182-369) K/mm3 MPV (9.4-12.3) fl Neut % (Auto) (34.0-71.1) % Lymph % (Auto) (19.3-51.7) % Kendall % (Auto) (4.7-12.5) % Eos % (Auto) (0.7-5.8) Baso % (Auto) (0.1-1.2) % Neut # (Auto) (1.56-6.13) K/mm3 Lymph # (Auto) (1.18-3.74) K/mm3 Kendall # (Auto) (0.24-0.36) K/mm3 Eos # (Auto) (0.04-0.36) K/mm3 Baso # (Auto) (0.01-0.08) K/mm3 Manual Slide Review PT (9.7-12.0) SECONDS INR APTT (22-31) SECONDS VBG pH (7.30-7.40) VBG pCO2 (41-51) mmHg VBG pO2 (40-80) mmHG VBG HCO3 (22-26) meq/L VBG O2 Saturation VBG Base Excess (-4.0-2.0) O2 Delivery Device Oxygen Flow Rate Sodium (136-145) mEq/L Potassium (3.5-5.1) mEq/L Chloride (98-107) mEq/L Carbon Dioxide (21-32) mEq/L Anion Gap (5-15) BUN (7-18) mg/dL Creatinine (0.55-1.02) mg/dL Est Cr Clr Drug Dosing mL/min Estimated GFR (MDRD) (>60) mL/min BUN/Creatinine Ratio (14-18) Glucose (80-115) mg/dL POC Glucose (80-115) mg/dL Lactic Acid 0.9 (0.4-2.0) mmol/L Calcium (8.5-10.1) mg/dL Phosphorus (2.6-4.7) mg/dL Magnesium (1.8-2.4) mg/dl Total Bilirubin (0.2-1.0) mg/dL AST (15-37) U/L ALT (14-59) U/L Alkaline Phosphatase (46-116) U/L Troponin I (0.00-0.056) ng/mL Total Protein (6.4-8.2) g/dl Albumin (3.4-5.0) g/dl Globulin gm/dL Albumin/Globulin Ratio (1-2) Vitamin D 25-Hydroxy (30.0-100.0) ng/ml Blood Type Gel Antibody Screen Crossmatch Med Orders - Current: Current Medications Acetaminophen (Tylenol) 650 mg RECTAL Q4H PRN PRN Reason: Fever Last Admin: 08/16/19 22:18 Dose: 650 mg Documented by: Albuterol (Proventil Hfa) 0 gm INH Q4H PRN PRN Reason: Shortness of Breath Calcium Carbonate (Calcium Carbonate/Vitamin D 600 Mg-200 Unit) 1 tab PO TIDMEALS [facility] Last Admin: 08/17/19 11:03 Dose: Not Given Documented by: Calcium Carbonate/Glycine (Tums) 1,000 mg PO Q6HR PRN PRN Reason: Indigestion Last Admin: 08/16/19 06:31 Dose: 1,000 mg Documented by: Cholecalciferol (Vitamin D3) 5,000 unit PO DAILY [facility] Last Admin: 08/17/19 09:38 Dose: Not Given Documented by: Diazepam (Valium.) 5 - 10 mg PO Q1H PRN PRN Reason: Withdrawal Symptoms Last Admin: 08/16/19 06:56 Dose: 10 mg Documented by: Diazepam (Valium.) 10 mg PO Q8HR [facility] Last Admin: 08/17/19 05:35 Dose: Not Given Documented by: Diazepam (Valium) 5 - 10 mg IVPUSH SEECOMMENT PRN PRN Reason: Withdrawal Symptoms Last Admin: 08/17/19 14:20 Dose: 10 mg Documented by: Diphenhydramine HCl (Benadryl) 50 mg IVPUSH Q6H PRN PRN Reason: Itching Folic Acid (Folic Acid) 1 mg PO BEDTIME [facility] Last Admin: 08/16/19 21:18 Dose: Not Given Documented by: Folic Acid (Folic Acid) 1 mg PO DAILY [facility] Last Admin: 08/17/19 09:36 Dose: Not Given Documented by: Potassium Chloride/Dextrose/Sod Cl (D5 1/2 Ns W/ 20 Meq/L Kcl) 1,000 mls @ 100 mls/hr IV ASDIRECTED [facility] Last Admin: 08/17/19 11:08 Dose: 100 mls/hr Documented by: Pantoprazole Sodium 80 mg/ (Sodium Chloride) 100 mls @ 10 mls/hr IV Q10H [facility] Last Admin: 08/17/19 06:30 Dose: 10 mls/hr Documented by: Ceftriaxone Sodium 2 gm/ (Sodium Chloride) 100 mls @ 200 mls/hr IV Q24H [facility] Last Admin: 08/17/19 09:56 Dose: 200 mls/hr Documented by: Losartan Potassium (Cozaar) 12.5 mg PO DAILY [facility] Last Admin: 08/17/19 09:36 Dose: Not Given Documented by: Magnesium Oxide (Magnesium Oxide) 400 mg PO BID [facility] Last Admin: 08/17/19 09:36 Dose: Not Given Documented by: Mirtazapine (Remeron) 15 mg PO BEDTIME [facility] Last Admin: 08/16/19 21:18 Dose: Not Given Documented by: Montelukast Sodium (Singulair) 10 mg PO BEDTIME [facility] Last Admin: 08/16/19 21:19 Dose: Not Given Documented by: Naltrexone HCl (Naltrexone) 50 mg PO DAILY [facility] Last Admin: 08/17/19 09:38 Dose: Not Given Documented by: Olanzapine (Zyprexa) 10 mg PO BEDTIME [facility] Last Admin: 08/16/19 21:19 Dose: Not Given Documented by: Ondansetron HCl (Zofran) 4 mg IV Q4H PRN PRN Reason: Nausea/Vomiting Last Admin: 08/15/19 23:53 Dose: 4 mg Documented by: Simvastatin (Zocor) 20 mg PO DAILY [facility] Last Admin: 08/17/19 09:38 Dose: Not Given Documented by: Sodium Chloride (Saline Flush) 10 ml FLUSH ASDIRECTED PRN PRN Reason: Keep Vein Open Last Admin: 08/15/19 13:44 Dose: 10 ml Documented by: Sucralfate (Carafate) 1 gm PO QID [facility] Last Admin: 08/17/19 14:27 Dose: Not Given Documented by: Thiamine HCl (Vitamin B-1) 100 mg PO DAILY [facility] Last Admin: 08/17/19 09:38 Dose: Not Given Documented by: Thiamine HCl (Vitamin B-1) 100 mg PO BEDTIME [facility] Last Admin: 08/16/19 21:19 Dose: Not Given Documented by: Discontinued Medications Al Hydroxide/Mg Hydroxide (Mag-Al Plus) 30 ml PO ONETIME ONE Stop: 08/16/19 01:08 Last Admin: 08/16/19 01:25 Dose: 30 ml Documented by: Calcium Carbonate/Glycine (Tums) 1,000 mg PO ONETIME ONE Stop: 08/15/19 16:43 Last Admin: 08/15/19 17:13 Dose: 1,000 mg Documented by: Calcium Carbonate/Glycine (Tums) 1,000 mg PO Q2HR PRN PRN Reason: Indigestion Chlordiazepoxide HCl (Librium) 75 mg PO ONETIME ONE Stop: 08/16/19 09:42 Last Admin: 08/16/19 09:45 Dose: 75 mg Documented by: Chlordiazepoxide HCl (Librium) 0 mg PO Q1H PRN; Protocol PRN Reason: Withdrawal Symptoms Chlordiazepoxide HCl (Librium) 50 mg PO Q4H [facility] Stop: 08/17/19 13:31 Last Admin: 08/17/19 14:27 Dose: Not Given Documented by: Chlordiazepoxide HCl (Librium) 50 mg PO Q6H [facility] Stop: 08/18/19 11:31 Chlordiazepoxide HCl (Librium) 25 mg PO Q4H [facility] Stop: 08/19/19 13:31 Chlordiazepoxide HCl (Librium) 25 mg PO Q6H [facility] Stop: 08/20/19 11:31 Diazepam (Valium) 10 mg IVPUSH ONETIME ONE Stop: 08/15/19 16:15 Last Admin: 08/15/19 16:36 Dose: 10 mg Documented by: Diazepam (Valium) 5 - 10 mg IVPUSH Q1H PRN PRN Reason: Withdrawal Symptoms Last Admin: 08/16/19 23:15 Dose: 10 mg Documented by: Diphenhydramine HCl (Benadryl) 50 mg IVPUSH Q6H [facility] Last Admin: 08/16/19 23:04 Dose: 50 mg Documented by: Enoxaparin Sodium (Lovenox) 40 mg SUBCUT DAILY [facility] Last Admin: 08/16/19 08:34 Dose: 40 mg Documented by: Furosemide (Lasix) 20 mg IVPUSH NOW ONE Stop: 08/16/19 23:15 Last Admin: 08/16/19 23:26 Dose: 20 mg Documented by: Haloperidol Lactate (Haldol) 5 mg IVPUSH ONETIME ONE Stop: 08/16/19 09:42 Last Admin: 08/16/19 09:45 Dose: 5 mg Documented by: Haloperidol Lactate (Haldol) 5 mg IM ONETIME ONE Stop: 08/16/19 12:48 Last Admin: 08/16/19 12:52 Dose: 5 mg Documented by: Sodium Chloride (Normal Saline) 1,000 mls @ 1,000 mls/hr IV .BOLUS [facility] Last Admin: 08/15/19 13:42 Dose: 1,000 mls/hr Documented by: Magnesium Sulfate/Dextrose 1 (gm/ Premix) 100 mls @ 100 mls/hr IV Q1H [facility] Stop: 08/15/19 18:29 Last Admin: 08/15/19 18:08 Dose: 100 mls/hr Documented by: Magnesium Sulfate 2 gm/ Premix 50 mls @ 25 mls/hr IV ONETIME ONE Stop: 08/15/19 23:31 Last Admin: 08/15/19 22:36 Dose: Not Given Documented by: Sodium Chloride (Normal Saline) 1,000 mls @ 999 mls/hr IV ONETIME ONE Stop: 08/16/19 16:03 Last Admin: 08/16/19 15:12 Dose: 999 mls/hr Documented by: Sodium Chloride (Normal Saline) 250 mls @ 250 mls/hr IV .BOLUS ONE Stop: 08/16/19 21:59 Last Admin: 08/16/19 21:15 Dose: 250 mls/hr Documented by: Sodium Chloride (Normal Saline) Confirm Administered Dose 1,000 mls @ as directed .ROUTE .STK-MED ONE Stop: 08/16/19 20:37 Last Admin: 08/16/19 21:16 Dose: Not Given Documented by: Sodium Chloride (Normal Saline) Confirm Administered Dose 250 mls @ as directed .ROUTE .STK-MED ONE Stop: 08/16/19 20:38 Last Admin: 08/16/19 21:16 Dose: Not Given Documented by: Magnesium Sulfate 2 gm/ Premix 50 mls @ 25 mls/hr IV ONETIME ONE Stop: 08/16/19 23:59 Last Admin: 08/16/19 22:25 Dose: 25 mls/hr Documented by: Sodium Phosphate 30 mmole/ (Sodium Chloride) 260 mls @ 86.667 mls/hr IV ONETIME ONE Stop: 08/16/19 22:31 Last Admin: 08/16/19 22:34 Dose: 86.667 mls/hr Documented by: Magnesium Sulfate 2 gm/ Premix 50 mls @ 25 mls/hr IV ONETIME ONE Stop: 08/17/19 10:00 Last Admin: 08/17/19 08:55 Dose: 25 mls/hr Documented by: Potassium Chloride 10 meq/ (Premix) 100 mls @ 100 mls/hr IV Q1H [facility] Stop: 08/17/19 10:14 Last Admin: 08/17/19 09:56 Dose: 100 mls/hr Documented by: Lactated Ringer's (Ringers, Lactated) 1,000 mls @ 999 mls/hr IV .BOLUS ONE Stop: 08/17/19 12:02 Last Admin: 08/17/19 11:05 Dose: 999 mls/hr Documented by: Lactated Ringer's (Ringers, Lactated) Confirm Administered Dose 1,000 mls @ as directed .ROUTE .STK-MED ONE Stop: 08/17/19 11:05 Last Admin: 08/17/19 11:47 Dose: Not Given Documented by: Lorazepam (Ativan) 1 mg IVPUSH ONETIME ONE Stop: 08/15/19 13:22 Last Admin: 08/15/19 13:42 Dose: 1 mg Documented by: Metoprolol Tartrate (Lopressor) 5 mg IVPUSH ONETIME ONE Stop: 08/16/19 12:29 Last Admin: 08/16/19 13:00 Dose: 5 mg Documented by: Non-Formulary Medication (Potassium Chloride [Potassium Chloride]) 20 meq PO DAILY [facility] Ondansetron HCl (Zofran) 4 mg IVPUSH ONETIME ONE Stop: 08/15/19 13:13 Last Admin: 08/15/19 13:43 Dose: 4 mg Documented by: Pantoprazole Sodium (Protonix) 40 mg PO ACBREAKFAST [facility] Pantoprazole Sodium (Protonix Iv) 40 mg IVPUSH Q12H [facility] Last Admin: 08/17/19 05:36 Dose: Not Given Documented by: Pantoprazole Sodium (Protonix Iv) 40 mg IVPUSH ONETIME ONE Stop: 08/16/19 21:18 Last Admin: 08/16/19 23:10 Dose: 40 mg Documented by: Potassium Chloride (Klor-Con M20) 20 meq PO BID [facility] Last Admin: 08/16/19 08:31 Dose: 20 meq Documented by: Thiamine HCl (Vitamin B-1) 100 mg IVPUSH ONETIME ONE Stop: 08/15/19 13:15 Last Admin: 08/15/19 13:45 Dose: 100 mg Documented by: Thiamine HCl (Vitamin B-1) 100 mg IVPUSH ONETIME ONE Stop: 08/15/19 21:01 Last Admin: 08/15/19 20:01 Dose: 100 mg Documented by: - Exam Quality Assessment: Supplemental Oxygen, Central Line/PICC, Urine Catheter General: Sedated HEENT: Pupils Equal, Mucous Membr. Moist/[place] Neck: Supple Lungs: Clear to Auscultation, Normal Respiratory Effort, Other (Upper airway noise) Cardiovascular: Regular Rhythm, Tachycardia GI/Abdominal Exam: Normal Bowel Sounds, Soft, Non-Tender, No Organomegaly, No Distention, No Abnormal Bruit Extremities: Normal Inspection, Normal Range of Motion, Non-Tender, No Pedal Edema, Normal Capillary Refill Skin: Warm, Dry, Intact Neurological: No New Focal Deficit Psy/Mental Status: Withdrawal Symptoms Sepsis Event Note - Evaluation Sepsis Screening Result: Sepsis Risk - Focused Exam Vital Signs: Vital Signs Temp Pulse Resp BP BP Pulse Ox 08/17/19 14:50 33 H 93 L 08/17/19 14:40 27 H 93 L 08/17/19 14:30 22 H 08/17/19 14:20 32 H 08/17/19 14:10 24 H 82 L 08/17/19 14:01 16 08/17/19 14:00 31 H 106/71 08/17/19 13:59 28 H 08/17/19 13:50 34 H 08/17/19 13:40 25 H 08/17/19 13:30 23 H 08/17/19 13:20 31 H 08/17/19 13:10 33 H 08/17/19 13:01 30 H 08/17/19 13:00 24 H 122/74 08/17/19 12:59 18 08/17/19 12:50 21 H 08/17/19 12:40 25 H 08/17/19 12:30 30 H 08/17/19 12:20 29 H 08/17/19 12:10 18 87 L 08/17/19 12:01 30 H 08/17/19 12:00 97.2 F 130 H 29 H 109/62 98 08/17/19 11:59 31 H 08/17/19 11:50 29 H 08/17/19 11:40 27 H 83 L 08/17/19 11:30 29 H 08/17/19 11:20 35 H 08/17/19 11:10 23 H 98 08/17/19 11:01 39 H 98 08/17/19 11:00 39 H 104/66 98 08/17/19 10:59 35 H 97 08/17/19 10:50 26 H 97 08/17/19 10:40 33 H 98 08/17/19 10:30 28 H 99 08/17/19 10:20 26 H 100 08/17/19 10:10 27 H 98 08/17/19 10:01 34 H 99 08/17/19 10:00 27 H 111/67 99 08/17/19 09:59 25 H 99 08/17/19 09:50 26 H 99 08/17/19 09:40 25 H 98 08/17/19 09:30 22 H 99 08/17/19 09:20 23 H 98 08/17/19 09:10 22 H 99 08/17/19 09:01 26 H 99 08/17/19 09:00 29 H 102/67 98 08/17/19 08:59 27 H 98 08/17/19 08:50 32 H 98 08/17/19 08:40 32 H 08/17/19 08:30 24 H 08/17/19 08:20 36 H 08/17/19 08:10 42 H 08/17/19 08:00 97.5 F 136 H 56 H 104/69 100 08/17/19 07:50 37 H 08/17/19 07:40 31 H 95 08/17/19 07:30 22 H 100 08/17/19 07:20 29 H 100 08/17/19 07:10 34 H 99 08/17/19 07:01 35 H 104/69 100 06/22/20 07:00 36 H 99 08/17/19 06:00 97.3 F 128 H 35 H 100 08/17/19 04:59 99.1 F 143 H 31 H 112/71 100 08/17/19 03:57 98.0 F 140 H 25 H 118/73 100 Date Exam was Performed: 08/17/19 Time Exam was Performed: 16:33 - Problem List & Annotations (1) Pneumonia SNOMED Code(s): 172394212 Code(s): J18.9 - PNEUMONIA, UNSPECIFIED ORGANISM Status: Acute Current Visit: Yes (2) Alcohol withdrawal syndrome SNOMED Code(s): 119583721 Code(s): F10.239 - ALCOHOL DEPENDENCE WITH WITHDRAWAL, UNSPECIFIED Status: Acute Priority: High Current Visit: Yes Qualifiers: Complication of substance-induced condition: uncomplicated Qualified Code(s): F10.230 - Alcohol dependence with withdrawal, uncomplicated (3) Hypomagnesemia SNOMED Code(s): 040007822 Code(s): E83.42 - HYPOMAGNESEMIA Status: Acute Priority: High Current Visit: Yes (4) Upper GI bleed SNOMED Code(s): 91161937 Code(s): K92.2 - GASTROINTESTINAL HEMORRHAGE, UNSPECIFIED Status: Acute Current Visit: Yes (5) Anemia SNOMED Code(s): 914365972 Code(s): D64.9 - ANEMIA, UNSPECIFIED Status: Acute Current Visit: No Qualifiers: Anemia type: unspecified type Qualified Code(s): D64.9 - Anemia, unspecified (6) Hypoalbuminemia SNOMED Code(s): 029296791 Code(s): E88.09 - OTH DISORDERS OF PLASMA-PROTEIN METABOLISM, NEC Status: Acute Current Visit: No - Problem List Review Problem List Initiated/Reviewed/Updated: Yes - My Orders Last 24 Hours: My Active Orders 08/16/19 20:04 RED BLOOD CELLS LP [BBK] Stat TYPE AND SCREEN [BBK] Stat 08/16/19 20:21 Blood Transfusion Reflex Orders [OM.PC] Routine 08/16/19 20:22 Transfuse RBC [Transfuse Red Blood Cells] [COMM] Stat 08/16/19 20:59 Notify Provider Consults [RC] ASDIRECTED Consult to Physician [CONS] Routine 08/16/19 21:00 Mirtazapine [Remeron] 15 mg PO BEDTIME Montelukast [Singulair] 10 mg PO BEDTIME OLANZapine [ZyPREXA] 10 mg PO BEDTIME Thiamine [Vitamin B-1] 100 mg PO BEDTIME 08/16/19 21:26 Transfuse Red Blood Cells [COMM] Stat 08/16/19 21:30 Pantoprazole [ProTONIX IV] 80 mg Sodium Chloride 0.9% [Normal Saline] 100 ml IV Q10H 08/16/19 22:18 Acetaminophen [Tylenol] 650 mg RECTAL Q4H PRN 08/16/19 23:30 diazePAM [Valium] 5 - 10 mg IVPUSH SEECOMMENT PRN 08/17/19 01:00 diphenhydrAMINE [Benadryl] 50 mg IVPUSH Q6H PRN 08/17/19 Breakfast NPO Now [Nothing per Oral Now Diet] [DIET] 08/17/19 09:48 Blood Culture x2 Reflex Set [OM.PC] Stat 08/17/19 10:00 cefTRIAXone [Rocephin] 2 gm Sodium Chloride 0.9% [Normal Saline] 100 ml IV Q24H 08/17/19 10:24 CULTURE BLOOD [BC] Stat 08/17/19 10:33 CULTURE BLOOD [BC] Stat 08/17/19 11:45 Rectal Tube Insertion [OM.PC] Routine 08/18/19 05:11 CBC WITH AUTO DIFF [HEME] AM COMPREHENSIVE METABOLIC PN,CMP [CHEM] AM MAGNESIUM [CHEM] AM PHOSPHORUS [CHEM] AM - Assessment Assessment:: 63-year-old chronic alcoholic with possible alcohol withdrawal seizure/syndrome Admission: August 15, 2019 * Patient found unresponsive by family member, mother * Last alcoholic beverage 24 hours prior to presentation to emergency department * Tremulous and anxious on presentation to the emergency department * Drinking 5-6 shots size bottles a day * Failed multiple inpatient and outpatient alcohol rehab programs August 16, 2019 * Patient with worsening withdrawal symptoms * CIWAA's of August 17, 2019 * Severe alcohol withdrawal with altered mental status and confusion * Patient requiring large doses of diazepam * Required 2 doses of Haldol for withdrawal symptoms * Continues to be tachycardic and tachypneic even after volume resuscitation likely secondary to alcohol withdrawal Upper GI bleed August 17, 2019 * Hemoglobin dropped 5 g over 13 hours * Given 2 units packed red blood cells * Having large amounts of liquid black stool today * Hemoglobin this morning 10.3 and a repeat of 9.5 * Started on Protonix drip * Has history of ulcerative esophagitis on EGD 3 weeks ago * History of colonic polypectomy 3 weeks ago * Continues to be tachycardic and tachypneic but both have improved overnight. * Blood pressure is stable with map greater than 65 * N.p.o. Bilateral pneumonia Asthma August 17, 2019 * Chest x-ray consistent with patchy areas of increased density bilaterally. * Low-grade fever overnight of 100.7 while getting blood transfusion * Requiring 1 to 2 L FiO2 * Large amounts of copious secretions requiring suctioning * Possibly secondary to aspiration. Patient has had altered mental status secondary to alcohol withdrawal * Started on Rocephin * Blood cultures drawn Severe hypomagnesemia -resolved Admission * August 16, 2019 * Hypocalcemia, hypoalbuminemia, hypokalemia, low vitamin D, hypomagnesemia Admission * Corrected calcium 7.8 * Albumin 2.9 * Review of old records shows that she has chronically low albumin and calcium * Patient is asymptomatic * Hypoalbuminemia likely secondary to poor protein intake * Hypocalcemia likely multifactorial to include hypomagnesemia, hypoalbuminemia, and poor oral intake. * Likely secondary to poor p.o. intake * Also likely contributing to hypocalcemia August 16, 2019 * Hypocalcemia resolved with resolution of hypomagnesemia: Corrected calcium 8.8 * Potassium slightly decreased at 3.2 * Albumin still low at 3.1 * Vitamin D 20 * Magnesium corrected at 2.1 August 17, 2019 * Magnesium 1.8 * Check PTH * Follow phosphorus * Corrected calcium 8.7 * Albumin 2.0 Chronic medical problems History of depression, anxiety, and bipolar disorder * Likely contributing to alcoholism and vice versa * Currently appears to be euthymic Hypertension * Blood pressure in the emergency department 136/82 * Blood pressure is stable - Plan Plan:: Neurology Patient confused and sedated Continues getting diazepam for withdrawal Continue following CIWAA scores Diazepam as needed alcohol withdrawal based on CIWA score Cardiovascular Monitor vital signs in ICU Consider Lopressor if heart rate exceeds 150. MAP goal greater than 65 Respiratory Aspiration precautions Regular suctioning and oral care as needed FiO2 to keep SPO2 greater than 92 but less than 96% Gastrointestinal and Nutrition: Currently n.p.o. Kidney and Electrolytes: Strict I's and O's Daily weights Monitor electrolytes and replace as needed D5 half-normal saline with 20 mEq/L at 100 mL an hour maintenance dose Infectious disease: Bilateral pneumonia on chest x-ray WBC increased to 12.14 with no bandemia T-max 100.7 continue to trend temperature Await blood culture results On Rocephin 2 g every 24 hours Hematology/Coagulation: Significant amount of black liquid stools secondary to ulcerative esophagitis Dr. Whatley and surgery following Continue Protonix drip N.p.o. Trend hemoglobin and transfuse as needed VTE prophylaxis with Lovenox CODE STATUS: Full code Disposition: Admit to ICU. Consider transfer to inpatient rehab after patient is medically stable.
[2019-08-17] MEDS ORDERED: chlordiazePOXIDE 25 MG Cap PO SCH (17:30)
[2019-08-17] MEDS: OLANZapine 10 MG Vial IM SCH (20:05)
[2019-08-17] MEDS: Montelukast 10 MG Tab PO SCH (20:45)
[2019-08-17] MEDS: Mirtazapine 15 MG Tab PO SCH (20:45)
[2019-08-17] MEDS: Sodium Chloride 0.9% 250 ML IV SCH (22:30)
[2019-08-18] MEDS: Sodium Chloride 0.9% 250 ML IV SCH (01:16)
[2019-08-18] MEDS ORDERED: Acetaminophen 325 MG/10.15 ML ML PO PRN (01:24)
[2019-08-18] MEDS: Pantoprazole 80 MG in Sodium Chloride 0.9% 100 ML IV SCH ×2 (03:47→13:59)
[2019-08-18] MEDS: Diazepam 5 MG Tab PO SCH ×4 (06:34→21:26)
[2019-08-18] MEDS: Calcium Carbonate/Vitamin D3 600 MG-200 Units Tab PO SCH ×3 (06:34→16:55)
[2019-08-18] MEDS: D5 1/2 NS w/ 20 mEq/L KCl 1,000 ML IV SCH (07:24)
[2019-08-18] MEDS ORDERED: Magnesium Sulfate/Water 4 GM in Premix Bag 1 BAG IV ONE (08:19)
[2019-08-18] MEDS ORDERED: Sodium Phosphate 30 MMOLE in Sodium Chloride 0.9% 250 ML IV ONE (08:30)
[2019-08-18] MEDS: cefTRIAXone 2 GM in Sodium Chloride 0.9% 100 ML IV SCH (09:03)
[2019-08-18] MEDS: Losartan 25 MG Tab PO SCH (11:07)
[2019-08-18] MEDS: Magnesium Oxide 400 MG Tab PO SCH ×2 (11:07→20:10)
[2019-08-18] MEDS: Naltrexone 50 MG Tab PO SCH (11:07)
[2019-08-18] MEDS: Sucralfate 1 GM Tab PO SCH ×4 (11:07→20:10)
[2019-08-18] MEDS: Cholecalciferol (Vitamin D3) 5,000 UNIT Tab PO SCH (11:08)
[2019-08-18] MEDS: Simvastatin 20 MG Tab PO SCH (11:08)
[2019-08-18] MEDS: Folic Acid 1 MG Tab PO SCH (11:09)
[2019-08-18] MEDS: Thiamine 100 MG Tab PO SCH (11:10)
[2019-08-18] MEDS: Thiamine 200 MG/2 ML MDV IVPUSH SCH (11:17)
[2019-08-18] MEDS: Folic Acid 50 MG/10 ML MDV IV SCH (11:35)
--- NOTE | 2019-08-18 12:06 | PCM.CONSN ---
- General Info Date of Service: 08/18/19 Subjective Update: continues to have melena. Still in active withdrawal. Had 2U PRBC yesterday - Patient Data Vitals - Most Recent: Last Vital Signs Temp 36.6 C 08/18/19 08:00 Pulse 146 H 08/18/19 01:06 Resp 22 H 08/18/19 11:00 BP 119/69 08/18/19 10:07 Pulse Ox 98 08/18/19 11:05 Weight - Most Recent: 55.157 kg I&O - Last 24 Hours: Intake & Output 08/17/19 08/18/19 08/18/19 22:59 06:59 14:59 Intake Total 1350 2148 Output Total 1315 7365 375 Balance 35 -127 -375 Lab Results Last 24 Hours: Laboratory Results - last 24 hr 08/16/19 08/17/19 08/17/19 Range/Units 20:04 13:04 18:18 WBC (3.98-10.04) K/mm3 RBC (3.98-5.22) M/mm3 Hgb 9.5 L 8.6 L (11.2-15.7) gm/dl Hct 30.4 L 27.5 L (34.1-44.9) % MCV (79.4-94.8) fl MCH (25.6-32.2) pg MCHC (32.2-35.5) g/dl RDW Std Deviation (36.4-46.3) fL Plt Count (182-369) K/mm3 MPV (9.4-12.3) fl Neut % (Auto) (34.0-71.1) % Lymph % (Auto) (19.3-51.7) % [place] % (Auto) (4.7-12.5) % Eos % (Auto) (0.7-5.8) Baso % (Auto) (0.1-1.2) % Neut # (Auto) (1.56-6.13) K/mm3 Lymph # (Auto) (1.18-3.74) K/mm3 [place] # (Auto) (0.24-0.36) K/mm3 Eos # (Auto) (0.04-0.36) K/mm3 Baso # (Auto) (0.01-0.08) K/mm3 Manual Slide Review PT (9.7-12.0) SECONDS INR APTT (22-31) SECONDS Fibrinogen (187-446) mg/dL Fibrin Degrad Products (<5) ug/mL D-Dimer, Quantitative (0.19-0.50) mg/L Puncture Site ABG pH (7.35-7.45) ABG pCO2 (35.0-45.0) mmHg ABG pO2 (80.0-100.0) mmHg ABG HCO3 (22.0-26.0) meq/L ABG O2 Saturation (96.0-97.0) % ABG Base Excess (-2-2.0) Toni Test A-a Gradient mmHg O2 Delivery Device Oxygen Flow Rate FiO2 (21.00-100.00) % Sodium (136-145) mEq/L Potassium (3.5-5.1) mEq/L Chloride (98-107) mEq/L Carbon Dioxide (21-32) mEq/L Anion Gap (5-15) BUN (7-18) mg/dL Creatinine (0.55-1.02) mg/dL Est Cr Clr Drug Dosing mL/min Estimated GFR (MDRD) (>60) mL/min BUN/Creatinine Ratio (14-18) Glucose (80-115) mg/dL POC Glucose (80-115) mg/dL Calcium (8.5-10.1) mg/dL Phosphorus (2.6-4.7) mg/dL Magnesium (1.8-2.4) mg/dl Total Bilirubin (0.2-1.0) mg/dL AST (15-37) U/L ALT (14-59) U/L Alkaline Phosphatase (46-116) U/L Total Protein (6.4-8.2) g/dl Albumin (3.4-5.0) g/dl Globulin gm/dL Albumin/Globulin Ratio (1-2) Blood Type O POSITIVE Gel Antibody Screen Negative Crossmatch See Detail 08/17/19 08/18/19 08/18/19 Range/Units 21:55 01:10 05:35 WBC 7.09 (3.98-10.04) K/mm3 RBC 3.48 L (3.98-5.22) M/mm3 Hgb 8.1 L 9.9 L D (11.2-15.7) gm/dl Hct 26.2 L 31.1 L (34.1-44.9) % MCV 89.4 (79.4-94.8) fl MCH 28.4 (25.6-32.2) pg MCHC 31.8 L (32.2-35.5) g/dl RDW Std Deviation 58.2 H (36.4-46.3) fL Plt Count 72 L (182-369) K/mm3 MPV 10.1 (9.4-12.3) fl Neut % (Auto) 79.3 H (34.0-71.1) % Lymph % (Auto) 14.4 L (19.3-51.7) % [place] % (Auto) 4.2 L (4.7-12.5) % Eos % (Auto) 1.7 (0.7-5.8) Baso % (Auto) 0.1 (0.1-1.2) % Neut # (Auto) 5.62 (1.56-6.13) K/mm3 Lymph # (Auto) 1.02 L (1.18-3.74) K/mm3 [place] # (Auto) 0.30 (0.24-0.36) K/mm3 Eos # (Auto) 0.12 (0.04-0.36) K/mm3 Baso # (Auto) 0.01 (0.01-0.08) K/mm3 Manual Slide Review Abnormal smear PT (9.7-12.0) SECONDS INR APTT (22-31) SECONDS Fibrinogen (187-446) mg/dL Fibrin Degrad Products (<5) ug/mL D-Dimer, Quantitative (0.19-0.50) mg/L Puncture Site ABG pH (7.35-7.45) ABG pCO2 (35.0-45.0) mmHg ABG pO2 (80.0-100.0) mmHg ABG HCO3 (22.0-26.0) meq/L ABG O2 Saturation (96.0-97.0) % ABG Base Excess (-2-2.0) Toni Test A-a Gradient mmHg O2 Delivery Device Oxygen Flow Rate FiO2 (21.00-100.00) % Sodium (136-145) mEq/L Potassium (3.5-5.1) mEq/L Chloride (98-107) mEq/L Carbon Dioxide (21-32) mEq/L Anion Gap (5-15) BUN (7-18) mg/dL Creatinine (0.55-1.02) mg/dL Est Cr Clr Drug Dosing mL/min Estimated GFR (MDRD) (>60) mL/min BUN/Creatinine Ratio (14-18) Glucose (80-115) mg/dL POC Glucose 113 (80-115) mg/dL Calcium (8.5-10.1) mg/dL Phosphorus (2.6-4.7) mg/dL Magnesium (1.8-2.4) mg/dl Total Bilirubin (0.2-1.0) mg/dL AST (15-37) U/L ALT (14-59) U/L Alkaline Phosphatase (46-116) U/L Total Protein (6.4-8.2) g/dl Albumin (3.4-5.0) g/dl Globulin gm/dL Albumin/Globulin Ratio (1-2) Blood Type Gel Antibody Screen Crossmatch 08/18/19 08/18/19 08/18/19 Range/Units 05:35 09:01 10:30 WBC (3.98-10.04) K/mm3 RBC (3.98-5.22) M/mm3 Hgb 9.7 L (11.2-15.7) gm/dl Hct 30.9 L (34.1-44.9) % MCV (79.4-94.8) fl MCH (25.6-32.2) pg MCHC (32.2-35.5) g/dl RDW Std Deviation (36.4-46.3) fL Plt Count (182-369) K/mm3 MPV (9.4-12.3) fl Neut % (Auto) (34.0-71.1) % Lymph % (Auto) (19.3-51.7) % [place] % (Auto) (4.7-12.5) % Eos % (Auto) (0.7-5.8) Baso % (Auto) (0.1-1.2) % Neut # (Auto) (1.56-6.13) K/mm3 Lymph # (Auto) (1.18-3.74) K/mm3 [place] # (Auto) (0.24-0.36) K/mm3 Eos # (Auto) (0.04-0.36) K/mm3 Baso # (Auto) (0.01-0.08) K/mm3 Manual Slide Review PT (9.7-12.0) SECONDS INR APTT (22-31) SECONDS Fibrinogen (187-446) mg/dL Fibrin Degrad Products (<5) ug/mL D-Dimer, Quantitative (0.19-0.50) mg/L Puncture Site Rt radial ABG pH 7.36 (7.35-7.45) ABG pCO2 31.5 L (35.0-45.0) mmHg ABG pO2 74.0 L (80.0-100.0) mmHg ABG HCO3 17.1 L (22.0-26.0) meq/L ABG O2 Saturation 94.3 L (96.0-97.0) % ABG Base Excess -7.1 L (-2-2.0) Toni Test Positive A-a Gradient 59 mmHg O2 Delivery Device Nasal cannula Oxygen Flow Rate 1.0 FiO2 24.00 (21.00-100.00) % Sodium 137 (136-145) mEq/L Potassium 4.2 (3.5-5.1) mEq/L Chloride 111 H (98-107) mEq/L Carbon Dioxide 18 L (21-32) mEq/L Anion Gap 12.2 (5-15) BUN 15 (7-18) mg/dL Creatinine 0.6 (0.55-1.02) mg/dL Est Cr Clr Drug Dosing 85.74 mL/min Estimated GFR (MDRD) > 60 (>60) mL/min BUN/Creatinine Ratio 25.0 H (14-18) Glucose 101 (80-115) mg/dL POC Glucose (80-115) mg/dL Calcium 6.7 L (8.5-10.1) mg/dL Phosphorus 1.9 L (2.6-4.7) mg/dL Magnesium 1.5 L (1.8-2.4) mg/dl Total Bilirubin 0.7 (0.2-1.0) mg/dL AST 27 (15-37) U/L ALT 16 (14-59) U/L Alkaline Phosphatase 53 (46-116) U/L Total Protein 3.9 L (6.4-8.2) g/dl Albumin 1.6 L (3.4-5.0) g/dl Globulin 2.3 gm/dL Albumin/Globulin Ratio 0.7 L (1-2) Blood Type Gel Antibody Screen Crossmatch 08/18/19 08/18/19 08/18/19 Range/Units 10:30 10:30 10:30 WBC (3.98-10.04) K/mm3 RBC (3.98-5.22) M/mm3 Hgb (11.2-15.7) gm/dl Hct (34.1-44.9) % MCV (79.4-94.8) fl MCH (25.6-32.2) pg MCHC (32.2-35.5) g/dl RDW Std Deviation (36.4-46.3) fL Plt Count (182-369) K/mm3 MPV (9.4-12.3) fl Neut % (Auto) (34.0-71.1) % Lymph % (Auto) (19.3-51.7) % [place] % (Auto) (4.7-12.5) % Eos % (Auto) (0.7-5.8) Baso % (Auto) (0.1-1.2) % Neut # (Auto) (1.56-6.13) K/mm3 Lymph # (Auto) (1.18-3.74) K/mm3 [place] # (Auto) (0.24-0.36) K/mm3 Eos # (Auto) (0.04-0.36) K/mm3 Baso # (Auto) (0.01-0.08) K/mm3 Manual Slide Review PT 10.7 (9.7-12.0) SECONDS INR 0.98 APTT 60 H D (22-31) SECONDS Fibrinogen 445 (187-446) mg/dL Fibrin Degrad Products (<5) ug/mL D-Dimer, Quantitative 2.32 H (0.19-0.50) mg/L Puncture Site ABG pH (7.35-7.45) ABG pCO2 (35.0-45.0) mmHg ABG pO2 (80.0-100.0) mmHg ABG HCO3 (22.0-26.0) meq/L ABG O2 Saturation (96.0-97.0) % ABG Base Excess (-2-2.0) Toni Test A-a Gradient mmHg O2 Delivery Device Oxygen Flow Rate FiO2 (21.00-100.00) % Sodium (136-145) mEq/L Potassium (3.5-5.1) mEq/L Chloride (98-107) mEq/L Carbon Dioxide (21-32) mEq/L Anion Gap (5-15) BUN (7-18) mg/dL Creatinine (0.55-1.02) mg/dL Est Cr Clr Drug Dosing mL/min Estimated GFR (MDRD) (>60) mL/min BUN/Creatinine Ratio (14-18) Glucose (80-115) mg/dL POC Glucose (80-115) mg/dL Calcium (8.5-10.1) mg/dL Phosphorus (2.6-4.7) mg/dL Magnesium (1.8-2.4) mg/dl Total Bilirubin (0.2-1.0) mg/dL AST (15-37) U/L ALT (14-59) U/L Alkaline Phosphatase (46-116) U/L Total Protein (6.4-8.2) g/dl Albumin (3.4-5.0) g/dl Globulin gm/dL Albumin/Globulin Ratio (1-2) Blood Type Gel Antibody Screen Crossmatch 08/18/19 Range/Units 10:30 WBC (3.98-10.04) K/mm3 RBC (3.98-5.22) M/mm3 Hgb (11.2-15.7) gm/dl Hct (34.1-44.9) % MCV (79.4-94.8) fl MCH (25.6-32.2) pg MCHC (32.2-35.5) g/dl RDW Std Deviation (36.4-46.3) fL Plt Count (182-369) K/mm3 MPV (9.4-12.3) fl Neut % (Auto) (34.0-71.1) % Lymph % (Auto) (19.3-51.7) % [place] % (Auto) (4.7-12.5) % Eos % (Auto) (0.7-5.8) Baso % (Auto) (0.1-1.2) % Neut # (Auto) (1.56-6.13) K/mm3 Lymph # (Auto) (1.18-3.74) K/mm3 [place] # (Auto) (0.24-0.36) K/mm3 Eos # (Auto) (0.04-0.36) K/mm3 Baso # (Auto) (0.01-0.08) K/mm3 Manual Slide Review PT (9.7-12.0) SECONDS INR APTT (22-31) SECONDS Fibrinogen (187-446) mg/dL Fibrin Degrad Products < 5 ug/ml (<5) ug/mL D-Dimer, Quantitative (0.19-0.50) mg/L Puncture Site ABG pH (7.35-7.45) ABG pCO2 (35.0-45.0) mmHg ABG pO2 (80.0-100.0) mmHg ABG HCO3 (22.0-26.0) meq/L ABG O2 Saturation (96.0-97.0) % ABG Base Excess (-2-2.0) Toni Test A-a Gradient mmHg O2 Delivery Device Oxygen Flow Rate FiO2 (21.00-100.00) % Sodium (136-145) mEq/L Potassium (3.5-5.1) mEq/L Chloride (98-107) mEq/L Carbon Dioxide (21-32) mEq/L Anion Gap (5-15) BUN (7-18) mg/dL Creatinine (0.55-1.02) mg/dL Est Cr Clr Drug Dosing mL/min Estimated GFR (MDRD) (>60) mL/min BUN/Creatinine Ratio (14-18) Glucose (80-115) mg/dL POC Glucose (80-115) mg/dL Calcium (8.5-10.1) mg/dL Phosphorus (2.6-4.7) mg/dL Magnesium (1.8-2.4) mg/dl Total Bilirubin (0.2-1.0) mg/dL AST (15-37) U/L ALT (14-59) U/L Alkaline Phosphatase (46-116) U/L Total Protein (6.4-8.2) g/dl Albumin (3.4-5.0) g/dl Globulin gm/dL Albumin/Globulin Ratio (1-2) Blood Type Gel Antibody Screen Crossmatch Chance Results Last 24 Hours: Microbiology 08/17/19 10:24 Aerobic Blood Culture - Preliminary Blood - Venous NO GROWTH AFTER 1 DAY Anaerobic Blood Culture - Preliminary NO GROWTH AFTER 1 DAY 08/17/19 10:33 Aerobic Blood Culture - Preliminary Blood - Venous - Lab Draw NO GROWTH AFTER 1 DAY Anaerobic Blood Culture - Preliminary NO GROWTH AFTER 1 DAY Med Orders - Current: Current Medications Acetaminophen (Tylenol) 650 mg RECTAL Q4H PRN PRN Reason: Fever Last Admin: 08/16/19 22:18 Dose: 650 mg Documented by: Acetaminophen (Tylenol) 650 mg PO Q6H PRN PRN Reason: Fever Last Admin: 08/18/19 01:40 Dose: 650 mg Documented by: Albuterol (Proventil Hfa) 0 gm INH Q4H PRN PRN Reason: Shortness of Breath Calcium Carbonate (Calcium Carbonate/Vitamin D 600 Mg-200 Unit) 1 tab PO TID MEALS [facility] Last Admin: 08/18/19 11:08 Dose: Not Given Documented by: Calcium Carbonate/Glycine (Tums) 1,000 mg PO Q6HR PRN PRN Reason: Indigestion Last Admin: 08/16/19 06:31 Dose: 1,000 mg Documented by: Cholecalciferol (Vitamin D3) 5,000 unit PO DAILY [facility] Last Admin: 08/18/19 11:08 Dose: Not Given Documented by: Diazepam (Valium.) 5 - 10 mg PO Q1H PRN PRN Reason: Withdrawal Symptoms Last Admin: 08/16/19 06:56 Dose: 10 mg Documented by: Diazepam (Valium.) 10 mg PO Q8HR [facility] Last Admin: 08/18/19 06:34 Dose: Not Given Documented by: Diazepam (Valium) 5 - 10 mg IVPUSH SEECOMMENT PRN PRN Reason: Withdrawal Symptoms Last Admin: 08/18/19 06:34 Dose: 5 mg Documented by: Folic Acid (Folic Acid) 1 mg IV DAILY [facility] Last Admin: 08/18/19 11:35 Dose: 1 mg Documented by: Potassium Chloride/Dextrose/Sod Cl (D5 1/2 Ns W/ 20 Meq/L Kcl) 1,000 mls @ 100 mls/hr IV ASDIRECTED [facility] Last Admin: 08/18/19 07:24 Dose: 100 mls/hr Documented by: Pantoprazole Sodium 80 mg/ (Sodium Chloride) 100 mls @ 10 mls/hr IV Q10H [facility] Last Admin: 08/18/19 03:47 Dose: 10 mls/hr Documented by: Ceftriaxone Sodium 2 gm/ (Sodium Chloride) 100 mls @ 200 mls/hr IV Q24H [facility] Last Admin: 08/18/19 09:03 Dose: 200 mls/hr Documented by: Sodium Chloride (Normal Saline) 250 mls @ 100 mls/hr IV ASDIRECTED [facility] Stop: 08/19/19 00:59 Last Admin: 08/18/19 01:16 Dose: 100 mls/hr Documented by: Magnesium Sulfate 4 gm/ Premix 50 mls @ 12.5 mls/hr IV ONETIME ONE Stop: 08/18/19 12:18 Last Admin: 08/18/19 08:50 Dose: 12.5 mls/hr Documented by: Losartan Potassium (Cozaar) 12.5 mg PO DAILY [facility] Last Admin: 08/18/19 11:07 Dose: Not Given Documented by: Magnesium Oxide (Magnesium Oxide) 400 mg PO BID [facility] Last Admin: 08/18/19 11:07 Dose: Not Given Documented by: Mirtazapine (Remeron) 15 mg PO BEDTIME [facility] Last Admin: 08/17/19 20:45 Dose: 15 mg Documented by: Montelukast Sodium (Singulair) 10 mg PO BEDTIME [facility] Last Admin: 08/17/19 20:45 Dose: Not Given Documented by: Naltrexone HCl (Naltrexone) 50 mg PO DAILY [facility] Last Admin: 08/18/19 11:07 Dose: Not Given Documented by: Olanzapine (Zyprexa) 10 mg PO BEDTIME [facility] Last Admin: 08/16/19 21:19 Dose: Not Given Documented by: Olanzapine (Zyprexa) 10 mg IM BEDTIME [facility] Last Admin: 08/17/19 20:05 Dose: 10 mg Documented by: Ondansetron HCl (Zofran) 4 mg IV Q4H PRN PRN Reason: Nausea/Vomiting Last Admin: 08/15/19 23:53 Dose: 4 mg Documented by: Simvastatin (Zocor) 20 mg PO DAILY [facility] Last Admin: 08/18/19 11:08 Dose: Not Given Documented by: Sodium Chloride (Saline Flush) 10 ml FLUSH ASDIRECTED PRN PRN Reason: Keep Vein Open Last Admin: 08/15/19 13:44 Dose: 10 ml Documented by: Sucralfate (Carafate) 1 gm PO QID [facility] Last Admin: 08/18/19 11:07 Dose: Not Given Documented by: Thiamine HCl (Vitamin B-1) 100 mg IVPUSH DAILY [facility] Last Admin: 08/18/19 11:17 Dose: 100 mg Documented by: Discontinued Medications Al Hydroxide/Mg Hydroxide (Mag-Al Plus) 30 ml PO ONETIME ONE Stop: 08/16/19 01:08 Last Admin: 08/16/19 01:25 Dose: 30 ml Documented by: Calcium Carbonate/Glycine (Tums) 1,000 mg PO ONETIME ONE Stop: 08/15/19 16:43 Last Admin: 08/15/19 17:13 Dose: 1,000 mg Documented by: Calcium Carbonate/Glycine (Tums) 1,000 mg PO Q2HR PRN PRN Reason: Indigestion Chlordiazepoxide HCl (Librium) 75 mg PO ONETIME ONE Stop: 08/16/19 09:42 Last Admin: 08/16/19 09:45 Dose: 75 mg Documented by: Chlordiazepoxide HCl (Librium) 0 mg PO Q1H PRN; Protocol PRN Reason: Withdrawal Symptoms Chlordiazepoxide HCl (Librium) 50 mg PO Q4H [facility] Stop: 08/17/19 13:31 Last Admin: 08/17/19 14:27 Dose: Not Given Documented by: Chlordiazepoxide HCl (Librium) 50 mg PO Q6H [facility] Stop: 08/18/19 11:31 Chlordiazepoxide HCl (Librium) 25 mg PO Q4H [facility] Stop: 08/19/19 13:31 Chlordiazepoxide HCl (Librium) 25 mg PO Q6H [facility] Stop: 08/20/19 11:31 Diazepam (Valium) 10 mg IVPUSH ONETIME ONE Stop: 08/15/19 16:15 Last Admin: 08/15/19 16:36 Dose: 10 mg Documented by: Diazepam (Valium) 5 - 10 mg IVPUSH Q1H PRN PRN Reason: Withdrawal Symptoms Last Admin: 08/16/19 23:15 Dose: 10 mg Documented by: Diphenhydramine HCl (Benadryl) 50 mg IVPUSH Q6H [facility] Last Admin: 08/16/19 23:04 Dose: 50 mg Documented by: Diphenhydramine HCl (Benadryl) 50 mg IVPUSH Q6H PRN PRN Reason: Itching Last Admin: 08/17/19 20:45 Dose: 50 mg Documented by: Enoxaparin Sodium (Lovenox) 40 mg SUBCUT DAILY [facility] Last Admin: 08/16/19 08:34 Dose: 40 mg Documented by: Folic Acid (Folic Acid) 1 mg PO BEDTIME [facility] Last Admin: 08/17/19 20:28 Dose: Not Given Documented by: Folic Acid (Folic Acid) 1 mg PO DAILY [facility] Last Admin: 08/18/19 11:09 Dose: Not Given Documented by: Furosemide (Lasix) 20 mg IVPUSH NOW ONE Stop: 08/16/19 23:15 Last Admin: 08/16/19 23:26 Dose: 20 mg Documented by: Haloperidol Lactate (Haldol) 5 mg IVPUSH ONETIME ONE Stop: 08/16/19 09:42 Last Admin: 08/16/19 09:45 Dose: 5 mg Documented by: Haloperidol Lactate (Haldol) 5 mg IM ONETIME ONE Stop: 08/16/19 12:48 Last Admin: 08/16/19 12:52 Dose: 5 mg Documented by: Sodium Chloride (Normal Saline) 1,000 mls @ 1,000 mls/hr IV .BOLUS [facility] Last Admin: 08/15/19 13:42 Dose: 1,000 mls/hr Documented by: Magnesium Sulfate/Dextrose 1 (gm/ Premix) 100 mls @ 100 mls/hr IV Q1H [facility] Stop: 08/15/19 18:29 Last Admin: 08/15/19 18:08 Dose: 100 mls/hr Documented by: Magnesium Sulfate 2 gm/ Premix 50 mls @ 25 mls/hr IV ONETIME ONE Stop: 08/15/19 23:31 Last Admin: 08/15/19 22:36 Dose: Not Given Documented by: Sodium Chloride (Normal Saline) 1,000 mls @ 999 mls/hr IV ONETIME ONE Stop: 08/16/19 16:03 Last Admin: 08/16/19 15:12 Dose: 999 mls/hr Documented by: Sodium Chloride (Normal Saline) 250 mls @ 250 mls/hr IV .BOLUS ONE Stop: 08/16/19 21:59 Last Admin: 08/16/19 21:15 Dose: 250 mls/hr Documented by: Sodium Chloride (Normal Saline) Confirm Administered Dose 1,000 mls @ as directed .ROUTE .STK-MED ONE Stop: 08/16/19 20:37 Last Admin: 08/16/19 21:16 Dose: Not Given Documented by: Sodium Chloride (Normal Saline) Confirm Administered Dose 250 mls @ as directed .ROUTE .STK-MED ONE Stop: 08/16/19 20:38 Last Admin: 08/16/19 21:16 Dose: Not Given Documented by: Magnesium Sulfate 2 gm/ Premix 50 mls @ 25 mls/hr IV ONETIME ONE Stop: 08/16/19 23:59 Last Admin: 08/16/19 22:25 Dose: 25 mls/hr Documented by: Sodium Phosphate 30 mmole/ (Sodium Chloride) 260 mls @ 86.667 mls/hr IV ONETIME ONE Stop: 08/16/19 22:31 Last Admin: 08/16/19 22:34 Dose: 86.667 mls/hr Documented by: Magnesium Sulfate 2 gm/ Premix 50 mls @ 25 mls/hr IV ONETIME ONE Stop: 08/17/19 10:00 Last Admin: 08/17/19 08:55 Dose: 25 mls/hr Documented by: Potassium Chloride 10 meq/ (Premix) 100 mls @ 100 mls/hr IV Q1H [facility] Stop: 08/17/19 10:14 Last Admin: 08/17/19 09:56 Dose: 100 mls/hr Documented by: Lactated Ringer's (Ringers, Lactated) 1,000 mls @ 999 mls/hr IV .BOLUS ONE Stop: 08/17/19 12:02 Last Admin: 08/17/19 11:05 Dose: 999 mls/hr Documented by: Lactated Ringer's (Ringers, Lactated) Confirm Administered Dose 1,000 mls @ as directed .ROUTE .STK-MED ONE Stop: 08/17/19 11:05 Last Admin: 08/17/19 11:47 Dose: Not Given Documented by: Sodium Phosphate 30 mmole/ (Sodium Chloride) 260 mls @ 86.667 mls/hr IV ONETIME ONE Stop: 08/18/19 08:31 Last Admin: 08/18/19 09:39 Dose: 86.667 mls/hr Documented by: Lorazepam (Ativan) 1 mg IVPUSH ONETIME ONE Stop: 08/15/19 13:22 Last Admin: 08/15/19 13:42 Dose: 1 mg Documented by: Metoprolol Tartrate (Lopressor) 5 mg IVPUSH ONETIME ONE Stop: 08/16/19 12:29 Last Admin: 08/16/19 13:00 Dose: 5 mg Documented by: Non-Formulary Medication (Potassium Chloride [Potassium Chloride]) 20 meq PO DAILY [facility] Ondansetron HCl (Zofran) 4 mg IVPUSH ONETIME ONE Stop: 08/15/19 13:13 Last Admin: 08/15/19 13:43 Dose: 4 mg Documented by: Pantoprazole Sodium (Protonix) 40 mg PO ACBREAKFAST [facility] Pantoprazole Sodium (Protonix Iv) 40 mg IVPUSH Q12H [facility] Last Admin: 08/17/19 05:36 Dose: Not Given Documented by: Pantoprazole Sodium (Protonix Iv) 40 mg IVPUSH ONETIME ONE Stop: 08/16/19 21:18 Last Admin: 08/16/19 23:10 Dose: 40 mg Documented by: Potassium Chloride (Klor-Con M20) 20 meq PO BID [facility] Last Admin: 08/16/19 08:31 Dose: 20 meq Documented by: Thiamine HCl (Vitamin B-1) 100 mg IVPUSH ONETIME ONE Stop: 08/15/19 13:15 Last Admin: 08/15/19 13:45 Dose: 100 mg Documented by: Thiamine HCl (Vitamin B-1) 100 mg IVPUSH ONETIME ONE Stop: 08/15/19 21:01 Last Admin: 08/15/19 20:01 Dose: 100 mg Documented by: Thiamine HCl (Vitamin B-1) 100 mg PO DAILY [facility] Last Admin: 08/18/19 11:10 Dose: Not Given Documented by: Thiamine HCl (Vitamin B-1) 100 mg PO BEDTIME [facility] Last Admin: 08/17/19 20:29 Dose: Not Given Documented by: - Exam Quality Assessment: Supplemental Oxygen General: Other (sleeping) Lungs: Other (noisy breathing wiht upper airway/mouth sounds) GI/Abdominal Exam: Other (rectal tube with melena) Sepsis Event Note - Evaluation Sepsis Screening Result: Sepsis Risk - Focused Exam Vital Signs: Vital Signs Temp Temp Pulse Resp BP BP Pulse Ox 08/18/19 11:05 98 08/18/19 11:00 22 H 99 08/18/19 10:50 31 H 98 08/18/19 10:40 20 98 08/18/19 10:30 30 H 96 08/18/19 10:20 22 H 94 L 08/18/19 10:10 19 94 L 08/18/19 10:07 19 119/69 99 08/18/19 10:06 20 96 08/18/19 10:01 24 H 140/121 H 96 08/18/19 10:00 20 97 08/18/19 09:50 23 H 95 08/18/19 09:40 23 H 97 08/18/19 09:30 23 H 92 L 08/18/19 09:20 23 H 95 08/18/19 09:10 25 H 94 L 08/18/19 09:00 29 H 93 L 08/18/19 08:50 27 H 93 L 08/18/19 08:40 27 H 93 L 08/18/19 08:30 25 H 96 08/18/19 08:20 33 H 99 08/18/19 08:10 28 H 99 08/18/19 08:01 29 H 99 08/18/19 08:00 36.6 C 28 H 114/56 L 99 08/18/19 07:59 29 H 99 08/18/19 07:50 31 H 99 08/18/19 07:40 30 H 98 08/18/19 07:30 26 H 100 08/18/19 07:20 29 H 98 08/18/19 07:10 30 H 97 08/18/19 07:00 30 H 131/63 98 08/18/19 06:13 08/18/19 06:00 21 H 131/63 90 L 08/18/19 04:00 36.6 C 35 H 108/67 96 08/18/19 03:00 32 H 102/57 L 08/18/19 02:00 38 H 108/55 L 08/18/19 01:52 37.1 C 34 H 102/57 L 08/18/19 01:37 37.8 C 31 H 97/77 08/18/19 01:06 37.8 C 146 H 38 H 104/73 08/18/19 01:00 37.8 C 39 H 107/73 Pulse Ox 08/18/19 11:05 08/18/19 11:00 08/18/19 10:50 08/18/19 10:40 08/18/19 10:30 08/18/19 10:20 08/18/19 10:10 08/18/19 10:07 08/18/19 10:06 08/18/19 10:01 08/18/19 10:00 08/18/19 09:50 08/18/19 09:40 08/18/19 09:30 08/18/19 09:20 08/18/19 09:10 08/18/19 09:00 08/18/19 08:50 08/18/19 08:40 08/18/19 08:30 08/18/19 08:20 08/18/19 08:10 08/18/19 08:01 08/18/19 08:00 08/18/19 07:59 08/18/19 07:50 08/18/19 07:40 08/18/19 07:30 08/18/19 07:20 08/18/19 07:10 08/18/19 07:00 08/18/19 06:13 99 08/18/19 06:00 08/18/19 04:00 08/18/19 03:00 08/18/19 02:00 08/18/19 01:52 08/18/19 01:37 08/18/19 01:06 08/18/19 01:00 Date Exam was Performed: 08/18/19 Time Exam was Performed: 17:05 Consult PN Assessment/Plan Procedures: Procedures AIRWAY INHALATION TREATMENT (08/19/13) ANALGESICS NON-OPIOID 1 OR 2 (12/15/18) ASSAY OF ETHANOL (08/19/13) ASSAY OF LACTIC ACID (05/24/16) ASSAY OF LIPASE (05/24/16) ASSAY OF MAGNESIUM (06/19/19) ASSAY OF NATRIURETIC PEPTIDE (12/30/18) ASSAY OF PHOSPHORUS (03/11/19) ASSAY OF TROPONIN QUANT (08/19/13) ASSAY THYROID STIM HORMONE (05/27/16) C-REACTIVE PROTEIN (12/30/18) CHEST X-RAY 1 VIEW FRONTAL (08/04/16) CHEST X-RAY 2VW FRONTAL&LATL (08/19/13) COMPLETE CBC AUTOMATED (03/11/19) COMPLETE CBC W/AUTO DIFF WBC (06/19/19) COMPREHEN METABOLIC PANEL (06/19/19) CREATINE MB FRACTION (08/19/13) CT HEAD/BRAIN W/O DYE (05/24/16) CT NECK SPINE W/O DYE (06/26/15) CULTURE OTHR SPECIMN AEROBIC (08/19/13) DRUG SCREEN QUANTALCOHOLS (04/01/19) DRUG TEST PRSMV CHEM ANLYZR (06/19/19) DRUG TEST PRSMV INSTRMNT (04/01/19) DX MAMMO INCL CAD UNI (07/04/17) DXA BONE DENSITY AXIAL (01/02/16) ELECTROCARDIOGRAM TRACING (12/15/18) EMERGENCY DEPT VISIT (06/19/19) EMERGENCY DEPT VISIT (03/10/19) EMERGENCY DEPT VISIT (02/26/19) EMERGENCY DEPT VISIT (05/27/16) EMERGENCY DEPT VISIT (05/24/16) EMERGENCY DEPT VISIT (07/01/15) EMERGENCY DEPT VISIT (06/26/15) EMERGENCY DEPT VISIT (06/24/14) EMERGENCY DEPT VISIT (08/19/13) EVALUATE PT USE OF INHALER (08/19/13) HYDRATE IV INFUSION ADD-ON (04/01/19) HYDRATION IV INFUSION INIT (12/28/18) IMMUNIZATION ADMIN (05/24/16) INFLUENZA ASSAY W/OPTIC (04/01/19) INJECTION FOR SHOULDER X-RAY (11/21/16) MEASURE BLOOD OXYGEN LEVEL (08/19/13) METABOLIC PANEL TOTAL CA (03/11/19) MRI JOINT UPR EXTREM W/DYE (11/21/16) NEEDLE LOCALIZATION BY XRAY (11/21/16) PROTHROMBIN TIME (06/19/19) PT EVALUATION (08/19/13) ROUTINE VENIPUNCTURE (06/19/19) RPR F/E/E/N/L/M 2.5 CM/< (06/24/14) RPR F/E/E/N/L/M 2.6-5.0 CM (05/24/16) SCR MAMMO BI INCL CAD (06/14/17) SMEAR GRAM STAIN (08/19/13) THER/PROPH/DIAG INJ IV PUSH (02/26/19) THER/PROPH/DIAG IV INF ADDON (04/01/19) THER/PROPH/DIAG IV INF INIT (04/01/19) THROMBOPLASTIN TIME PARTIAL (02/26/19) TISSUE EXAM BY PATHOLOGIST (10/06/13) TX/PRO/DX INJ NEW DRUG ADDON (04/01/19) TX/PRO/DX INJ SAME DRUG DENTAL MANAGER (04/01/19) ULTRASOUND BREAST LIMITED (07/04/17) URINALYSIS AUTO W/O SCOPE (12/15/18) URINALYSIS AUTO W/SCOPE (04/01/19) X-RAY EXAM OF NECK (08/04/16) (1) Upper GI bleed SNOMED Code(s): 92666688 Code(s): K92.2 - GASTROINTESTINAL HEMORRHAGE, UNSPECIFIED Current Visit: Yes (2) Alcohol withdrawal syndrome SNOMED Code(s): 227349480 Code(s): F10.239 - ALCOHOL DEPENDENCE WITH WITHDRAWAL, UNSPECIFIED Priority: High Current Visit: Yes Qualifiers: Complication of substance-induced condition: uncomplicated Qualified Code(s): F10.230 - Alcohol dependence with withdrawal, uncomplicated Problem List Initiated/Reviewed/Updated: Yes Plan: 63 y/o lady with UGIB. recent endoscopy done with findings of ulcerative esophagitis. Transfused 2U PRBC overnight, then stabilized - continue supportive measures. monitor melena. May have clears when Hg stabliized - protonix gtt - continue ETOH withdrawal protocol - medical management per primary Likely rebleeding of the esophagus given very recent EGD done for same symptoms. Pt has not been stable for OR from withdrawal symptoms. Now bleeding appears stabilized. Will follow. Please call with change in patient status. Radha Adams MD General surgery
[2019-08-18] MEDS ORDERED: Sodium Chloride 0.9% 10 ML Syringe FLUSH ONE (12:18)
[2019-08-18] MEDS ORDERED: Iopamidol 755 Mg/ML 100 ML Bottle IVPUSH ONE (12:18)
[2019-08-18] MEDS: Sodium Chloride 0.9% 100 ML IV SCH ×2 (12:38→12:56)
[2019-08-18] MEDS: Sodium Chloride 0.9% 10 ML Syringe FLUSH PRN (12:56)
--- NOTE | 2019-08-18 13:35 | CT ---
CT chest Technique: Multiple axial sections through the chest were obtained. Study performed as a pulmonary angiogram protocol. Intravenous contrast was therefore utilized. Findings: Pulmonary arteries are moderately well opacified. No discrete filling defects are seen to indicate pulmonary embolism. Atelectasis is seen with the left lung base. Small bilateral pleural effusions are noted. Heart size appears within normal limits. Aorta shows no aneurysm or dissection. Thickening of the esophageal wall is seen raising the possibility of reflux esophagitis. Visualized upper abdominal structures shows no discrete abnormality. No axillary adenopathy is seen. Small mediastinal lymph nodes are seen which are slightly more numerous than expected possibly on an old inflammatory basis. Follow-up study will be recommended to confirm stability. Lung window settings shows increased density within the right upper chest as well as extending into the right middle lobe. Lungs otherwise are clear. Bone window settings were reviewed which shows no acute osseous finding. Impression: 1. Small bilateral pleural effusions. Left basilar atelectasis. 2. Patchy areas of increased density within the right upper lung and right middle lobe raising the possibility of pneumonia. 3. No findings of pulmonary embolism. 4. Slightly prominent mediastinal lymph nodes possibly an old inflammatory basis but recommend repeat contrast-enhanced chest CT study in 9 months to confirm stability. This follow-up study would occur in April,. 5. Thickening of the esophageal wall raising the possibility of reflux esophagitis. Diagnostic code #9 This report was dictated in [facility]T
[2019-08-18] MEDS ORDERED: 50% Dextrose in Water 50 ML Syringe IVPUSH ONE (13:42)
--- NOTE | 2019-08-18 17:22 | PCM.PN ---
- General Info Date of Service: 08/18/19 Admission Dx/Problem (Free Text): Admission Diagnosis/Problem Admission Diagnosis/Problem Alcohol withdrawal syndrome Subjective Update: Last night patient's hemoglobin continued to drop and she required 2 more units of packed red blood cells. Patient had some improvement today. She is still confused and not sure where she is. She has had some hallucinations and CIWAA's event up to 15. She is much less tachycardic and tachypneic. Functional Status: Reports: Pain Controlled - Review of Systems General: Reports: Other (Confusion) - Patient Data Vitals - Most Recent: Last Vital Signs Temp 98.3 F 08/18/19 16:00 Pulse 146 H 08/18/19 01:06 Resp 19 08/18/19 16:00 BP 115/63 08/18/19 16:00 Pulse Ox 98 08/18/19 16:00 Weight - Most Recent: 55.157 kg I&O - Last 24 Hours: Intake & Output 08/18/19 08/18/19 08/18/19 06:59 14:59 22:59 Intake Total 2148 1731 Output Total 2275 1225 150 Balance -127 -1225 1581 Imaging Impressions - Last 24 Hours: CTA chest Impression: 1. Small bilateral pleural effusions. Left basilar atelectasis. 2. Patchy areas of increased density within the right upper lung and right middle lobe raising the possibility of pneumonia. 3. No findings of pulmonary embolism. 4. Slightly prominent mediastinal lymph nodes possibly an old inflammatory basis but recommend repeat contrast-enhanced chest CT in 9 months to confirm stability. This follow-up study would occur in April 2020. 5. Thickening of the esophagus wall raising the possibility of reflux esophagitis. Lab Results Last 24 Hours: Laboratory Results - last 24 hr 08/16/19 08/17/19 08/17/19 Range/Units 20:04 18:18 21:55 WBC (3.98-10.04) K/mm3 RBC (3.98-5.22) M/mm3 Hgb 8.6 L 8.1 L (11.2-15.7) gm/dl Hct 27.5 L 26.2 L (34.1-44.9) % MCV (79.4-94.8) fl MCH (25.6-32.2) pg MCHC (32.2-35.5) g/dl RDW Std Deviation (36.4-46.3) fL Plt Count (182-369) K/mm3 MPV (9.4-12.3) fl Neut % (Auto) (34.0-71.1) % Lymph % (Auto) (19.3-51.7) % [place] % (Auto) (4.7-12.5) % Eos % (Auto) (0.7-5.8) Baso % (Auto) (0.1-1.2) % Neut # (Auto) (1.56-6.13) K/mm3 Lymph # (Auto) (1.18-3.74) K/mm3 [place] # (Auto) (0.24-0.36) K/mm3 Eos # (Auto) (0.04-0.36) K/mm3 Baso # (Auto) (0.01-0.08) K/mm3 Manual Slide Review PT (9.7-12.0) SECONDS INR APTT (22-31) SECONDS Fibrinogen (187-446) mg/dL Fibrin Degrad Products (<5) ug/mL D-Dimer, Quantitative (0.19-0.50) mg/L Puncture Site ABG pH (7.35-7.45) ABG pCO2 (35.0-45.0) mmHg ABG pO2 (80.0-100.0) mmHg ABG HCO3 (22.0-26.0) meq/L ABG O2 Saturation (96.0-97.0) % ABG Base Excess (-2-2.0) Toni Test A-a Gradient mmHg O2 Delivery Device Oxygen Flow Rate FiO2 (21.00-100.00) % Sodium (136-145) mEq/L Potassium (3.5-5.1) mEq/L Chloride (98-107) mEq/L Carbon Dioxide (21-32) mEq/L Anion Gap (5-15) BUN (7-18) mg/dL Creatinine (0.55-1.02) mg/dL Est Cr Clr Drug Dosing mL/min Estimated GFR (MDRD) (>60) mL/min BUN/Creatinine Ratio (14-18) Glucose (80-115) mg/dL POC Glucose (80-115) mg/dL Calcium (8.5-10.1) mg/dL Phosphorus (2.6-4.7) mg/dL Magnesium (1.8-2.4) mg/dl Total Bilirubin (0.2-1.0) mg/dL AST (15-37) U/L ALT (14-59) U/L Alkaline Phosphatase (46-116) U/L Total Protein (6.4-8.2) g/dl Albumin (3.4-5.0) g/dl Globulin gm/dL Albumin/Globulin Ratio (1-2) Blood Type O POSITIVE Gel Antibody Screen Negative Crossmatch See Detail 08/18/19 08/18/19 08/18/19 Range/Units 01:10 05:35 05:35 WBC 7.09 (3.98-10.04) K/mm3 RBC 3.48 L (3.98-5.22) M/mm3 Hgb 9.9 L D (11.2-15.7) gm/dl Hct 31.1 L (34.1-44.9) % MCV 89.4 (79.4-94.8) fl MCH 28.4 (25.6-32.2) pg MCHC 31.8 L (32.2-35.5) g/dl RDW Std Deviation 58.2 H (36.4-46.3) fL Plt Count 72 L (182-369) K/mm3 MPV 10.1 (9.4-12.3) fl Neut % (Auto) 79.3 H (34.0-71.1) % Lymph % (Auto) 14.4 L (19.3-51.7) % [place] % (Auto) 4.2 L (4.7-12.5) % Eos % (Auto) 1.7 (0.7-5.8) Baso % (Auto) 0.1 (0.1-1.2) % Neut # (Auto) 5.62 (1.56-6.13) K/mm3 Lymph # (Auto) 1.02 L (1.18-3.74) K/mm3 [place] # (Auto) 0.30 (0.24-0.36) K/mm3 Eos # (Auto) 0.12 (0.04-0.36) K/mm3 Baso # (Auto) 0.01 (0.01-0.08) K/mm3 Manual Slide Review Abnormal smear PT (9.7-12.0) SECONDS INR APTT (22-31) SECONDS Fibrinogen (187-446) mg/dL Fibrin Degrad Products (<5) ug/mL D-Dimer, Quantitative (0.19-0.50) mg/L Puncture Site ABG pH (7.35-7.45) ABG pCO2 (35.0-45.0) mmHg ABG pO2 (80.0-100.0) mmHg ABG HCO3 (22.0-26.0) meq/L ABG O2 Saturation (96.0-97.0) % ABG Base Excess (-2-2.0) Toni Test A-a Gradient mmHg O2 Delivery Device Oxygen Flow Rate FiO2 (21.00-100.00) % Sodium 137 (136-145) mEq/L Potassium 4.2 (3.5-5.1) mEq/L Chloride 111 H (98-107) mEq/L Carbon Dioxide 18 L (21-32) mEq/L Anion Gap 12.2 (5-15) BUN 15 (7-18) mg/dL Creatinine 0.6 (0.55-1.02) mg/dL Est Cr Clr Drug Dosing 85.74 mL/min Estimated GFR (MDRD) > 60 (>60) mL/min BUN/Creatinine Ratio 25.0 H (14-18) Glucose 101 (80-115) mg/dL POC Glucose 113 (80-115) mg/dL Calcium 6.7 L (8.5-10.1) mg/dL Phosphorus 1.9 L (2.6-4.7) mg/dL Magnesium 1.5 L (1.8-2.4) mg/dl Total Bilirubin 0.7 (0.2-1.0) mg/dL AST 27 (15-37) U/L ALT 16 (14-59) U/L Alkaline Phosphatase 53 (46-116) U/L Total Protein 3.9 L (6.4-8.2) g/dl Albumin 1.6 L (3.4-5.0) g/dl Globulin 2.3 gm/dL Albumin/Globulin Ratio 0.7 L (1-2) Blood Type Gel Antibody Screen Crossmatch 08/18/19 08/18/19 08/18/19 Range/Units 06:12 09:01 10:30 WBC (3.98-10.04) K/mm3 RBC (3.98-5.22) M/mm3 Hgb 9.7 L (11.2-15.7) gm/dl Hct 30.9 L (34.1-44.9) % MCV (79.4-94.8) fl MCH (25.6-32.2) pg MCHC (32.2-35.5) g/dl RDW Std Deviation (36.4-46.3) fL Plt Count (182-369) K/mm3 MPV (9.4-12.3) fl Neut % (Auto) (34.0-71.1) % Lymph % (Auto) (19.3-51.7) % [place] % (Auto) (4.7-12.5) % Eos % (Auto) (0.7-5.8) Baso % (Auto) (0.1-1.2) % Neut # (Auto) (1.56-6.13) K/mm3 Lymph # (Auto) (1.18-3.74) K/mm3 [place] # (Auto) (0.24-0.36) K/mm3 Eos # (Auto) (0.04-0.36) K/mm3 Baso # (Auto) (0.01-0.08) K/mm3 Manual Slide Review PT (9.7-12.0) SECONDS INR APTT (22-31) SECONDS Fibrinogen (187-446) mg/dL Fibrin Degrad Products (<5) ug/mL D-Dimer, Quantitative (0.19-0.50) mg/L Puncture Site Rt radial ABG pH 7.36 (7.35-7.45) ABG pCO2 31.5 L (35.0-45.0) mmHg ABG pO2 74.0 L (80.0-100.0) mmHg ABG HCO3 17.1 L (22.0-26.0) meq/L ABG O2 Saturation 94.3 L (96.0-97.0) % ABG Base Excess -7.1 L (-2-2.0) Toni Test Positive A-a Gradient 59 mmHg O2 Delivery Device Nasal cannula Oxygen Flow Rate 1.0 FiO2 24.00 (21.00-100.00) % Sodium (136-145) mEq/L Potassium (3.5-5.1) mEq/L Chloride (98-107) mEq/L Carbon Dioxide (21-32) mEq/L Anion Gap (5-15) BUN (7-18) mg/dL Creatinine (0.55-1.02) mg/dL Est Cr Clr Drug Dosing mL/min Estimated GFR (MDRD) (>60) mL/min BUN/Creatinine Ratio (14-18) Glucose (80-115) mg/dL POC Glucose 99 (80-115) mg/dL Calcium (8.5-10.1) mg/dL Phosphorus (2.6-4.7) mg/dL Magnesium (1.8-2.4) mg/dl Total Bilirubin (0.2-1.0) mg/dL AST (15-37) U/L ALT (14-59) U/L Alkaline Phosphatase (46-116) U/L Total Protein (6.4-8.2) g/dl Albumin (3.4-5.0) g/dl Globulin gm/dL Albumin/Globulin Ratio (1-2) Blood Type Gel Antibody Screen Crossmatch 08/18/19 08/18/19 08/18/19 Range/Units 10:30 10:30 10:30 WBC (3.98-10.04) K/mm3 RBC (3.98-5.22) M/mm3 Hgb (11.2-15.7) gm/dl Hct (34.1-44.9) % MCV (79.4-94.8) fl MCH (25.6-32.2) pg MCHC (32.2-35.5) g/dl RDW Std Deviation (36.4-46.3) fL Plt Count (182-369) K/mm3 MPV (9.4-12.3) fl Neut % (Auto) (34.0-71.1) % Lymph % (Auto) (19.3-51.7) % [place] % (Auto) (4.7-12.5) % Eos % (Auto) (0.7-5.8) Baso % (Auto) (0.1-1.2) % Neut # (Auto) (1.56-6.13) K/mm3 Lymph # (Auto) (1.18-3.74) K/mm3 [place] # (Auto) (0.24-0.36) K/mm3 Eos # (Auto) (0.04-0.36) K/mm3 Baso # (Auto) (0.01-0.08) K/mm3 Manual Slide Review PT 10.7 (9.7-12.0) SECONDS INR 0.98 APTT 60 H D (22-31) SECONDS Fibrinogen 445 (187-446) mg/dL Fibrin Degrad Products (<5) ug/mL D-Dimer, Quantitative 2.32 H (0.19-0.50) mg/L Puncture Site ABG pH (7.35-7.45) ABG pCO2 (35.0-45.0) mmHg ABG pO2 (80.0-100.0) mmHg ABG HCO3 (22.0-26.0) meq/L ABG O2 Saturation (96.0-97.0) % ABG Base Excess (-2-2.0) Toni Test A-a Gradient mmHg O2 Delivery Device Oxygen Flow Rate FiO2 (21.00-100.00) % Sodium (136-145) mEq/L Potassium (3.5-5.1) mEq/L Chloride (98-107) mEq/L Carbon Dioxide (21-32) mEq/L Anion Gap (5-15) BUN (7-18) mg/dL Creatinine (0.55-1.02) mg/dL Est Cr Clr Drug Dosing mL/min Estimated GFR (MDRD) (>60) mL/min BUN/Creatinine Ratio (14-18) Glucose (80-115) mg/dL POC Glucose (80-115) mg/dL Calcium (8.5-10.1) mg/dL Phosphorus (2.6-4.7) mg/dL Magnesium (1.8-2.4) mg/dl Total Bilirubin (0.2-1.0) mg/dL AST (15-37) U/L ALT (14-59) U/L Alkaline Phosphatase (46-116) U/L Total Protein (6.4-8.2) g/dl Albumin (3.4-5.0) g/dl Globulin gm/dL Albumin/Globulin Ratio (1-2) Blood Type Gel Antibody Screen Crossmatch 06/23/20 06/23/20 06/23/20 Range/Units 10:30 12:26 13:34 WBC (3.98-10.04) K/mm3 RBC (3.98-5.22) M/mm3 Hgb (11.2-15.7) gm/dl Hct (34.1-44.9) % MCV (79.4-94.8) fl MCH (25.6-32.2) pg MCHC (32.2-35.5) g/dl RDW Std Deviation (36.4-46.3) fL Plt Count (182-369) K/mm3 MPV (9.4-12.3) fl Neut % (Auto) (34.0-71.1) % Lymph % (Auto) (19.3-51.7) % [place] % (Auto) (4.7-12.5) % Eos % (Auto) (0.7-5.8) Baso % (Auto) (0.1-1.2) % Neut # (Auto) (1.56-6.13) K/mm3 Lymph # (Auto) (1.18-3.74) K/mm3 [place] # (Auto) (0.24-0.36) K/mm3 Eos # (Auto) (0.04-0.36) K/mm3 Baso # (Auto) (0.01-0.08) K/mm3 Manual Slide Review PT (9.7-12.0) SECONDS INR APTT (22-31) SECONDS Fibrinogen (187-446) mg/dL Fibrin Degrad Products < 5 ug/ml (<5) ug/mL D-Dimer, Quantitative (0.19-0.50) mg/L Puncture Site ABG pH (7.35-7.45) ABG pCO2 (35.0-45.0) mmHg ABG pO2 (80.0-100.0) mmHg ABG HCO3 (22.0-26.0) meq/L ABG O2 Saturation (96.0-97.0) % ABG Base Excess (-2-2.0) Toni Test A-a Gradient mmHg O2 Delivery Device Oxygen Flow Rate FiO2 (21.00-100.00) % Sodium (136-145) mEq/L Potassium (3.5-5.1) mEq/L Chloride (98-107) mEq/L Carbon Dioxide (21-32) mEq/L Anion Gap (5-15) BUN (7-18) mg/dL Creatinine (0.55-1.02) mg/dL Est Cr Clr Drug Dosing mL/min Estimated GFR (MDRD) (>60) mL/min BUN/Creatinine Ratio (14-18) Glucose (80-115) mg/dL POC Glucose 82 79 L (80-115) mg/dL Calcium (8.5-10.1) mg/dL Phosphorus (2.6-4.7) mg/dL Magnesium (1.8-2.4) mg/dl Total Bilirubin (0.2-1.0) mg/dL AST (15-37) U/L ALT (14-59) U/L Alkaline Phosphatase (46-116) U/L Total Protein (6.4-8.2) g/dl Albumin (3.4-5.0) g/dl Globulin gm/dL Albumin/Globulin Ratio (1-2) Blood Type Gel Antibody Screen Crossmatch 08/18/19 08/18/19 Range/Units 14:18 16:07 WBC (3.98-10.04) K/mm3 RBC (3.98-5.22) M/mm3 Hgb 9.9 L (11.2-15.7) gm/dl Hct 31.0 L (34.1-44.9) % MCV (79.4-94.8) fl MCH (25.6-32.2) pg MCHC (32.2-35.5) g/dl RDW Std Deviation (36.4-46.3) fL Plt Count (182-369) K/mm3 MPV (9.4-12.3) fl Neut % (Auto) (34.0-71.1) % Lymph % (Auto) (19.3-51.7) % [place] % (Auto) (4.7-12.5) % Eos % (Auto) (0.7-5.8) Baso % (Auto) (0.1-1.2) % Neut # (Auto) (1.56-6.13) K/mm3 Lymph # (Auto) (1.18-3.74) K/mm3 [place] # (Auto) (0.24-0.36) K/mm3 Eos # (Auto) (0.04-0.36) K/mm3 Baso # (Auto) (0.01-0.08) K/mm3 Manual Slide Review PT (9.7-12.0) SECONDS INR APTT (22-31) SECONDS Fibrinogen (187-446) mg/dL Fibrin Degrad Products (<5) ug/mL D-Dimer, Quantitative (0.19-0.50) mg/L Puncture Site ABG pH (7.35-7.45) ABG pCO2 (35.0-45.0) mmHg ABG pO2 (80.0-100.0) mmHg ABG HCO3 (22.0-26.0) meq/L ABG O2 Saturation (96.0-97.0) % ABG Base Excess (-2-2.0) Toni Test A-a Gradient mmHg O2 Delivery Device Oxygen Flow Rate FiO2 (21.00-100.00) % Sodium (136-145) mEq/L Potassium (3.5-5.1) mEq/L Chloride (98-107) mEq/L Carbon Dioxide (21-32) mEq/L Anion Gap (5-15) BUN (7-18) mg/dL Creatinine (0.55-1.02) mg/dL Est Cr Clr Drug Dosing mL/min Estimated GFR (MDRD) (>60) mL/min BUN/Creatinine Ratio (14-18) Glucose (80-115) mg/dL POC Glucose 93 (80-115) mg/dL Calcium (8.5-10.1) mg/dL Phosphorus (2.6-4.7) mg/dL Magnesium (1.8-2.4) mg/dl Total Bilirubin (0.2-1.0) mg/dL AST (15-37) U/L ALT (14-59) U/L Alkaline Phosphatase (46-116) U/L Total Protein (6.4-8.2) g/dl Albumin (3.4-5.0) g/dl Globulin gm/dL Albumin/Globulin Ratio (1-2) Blood Type Gel Antibody Screen Crossmatch Chance Results Last 24 Hours: Microbiology 08/17/19 10:24 Aerobic Blood Culture - Preliminary Blood - Venous NO GROWTH AFTER 1 DAY Anaerobic Blood Culture - Preliminary NO GROWTH AFTER 1 DAY 08/17/19 10:33 Aerobic Blood Culture - Preliminary Blood - Venous - Lab Draw NO GROWTH AFTER 1 DAY Anaerobic Blood Culture - Preliminary NO GROWTH AFTER 1 DAY Med Orders - Current: Current Medications Acetaminophen (Tylenol) 650 mg RECTAL Q4H PRN PRN Reason: Fever Last Admin: 08/16/19 22:18 Dose: 650 mg Documented by: Acetaminophen (Tylenol) 650 mg PO Q6H PRN PRN Reason: Fever Last Admin: 08/18/19 01:40 Dose: 650 mg Documented by: Albuterol (Proventil Hfa) 0 gm INH Q4H PRN PRN Reason: Shortness of Breath Calcium Carbonate (Calcium Carbonate/Vitamin D 600 Mg-200 Unit) 1 tab PO TIDMEALS [facility] Last Admin: 08/18/19 16:55 Dose: 1 tab Documented by: Calcium Carbonate/Glycine (Tums) 1,000 mg PO Q6HR PRN PRN Reason: Indigestion Last Admin: 08/16/19 06:31 Dose: 1,000 mg Documented by: Cholecalciferol (Vitamin D3) 5,000 unit PO DAILY [facility] Last Admin: 08/18/19 11:08 Dose: Not Given Documented by: Diazepam (Valium.) 5 - 10 mg PO Q1H PRN PRN Reason: Withdrawal Symptoms Last Admin: 08/16/19 06:56 Dose: 10 mg Documented by: Diazepam (Valium.) 10 mg PO Q8HR [facility] Last Admin: 08/18/19 17:05 Dose: 10 mg Documented by: Diazepam (Valium) 5 - 10 mg IVPUSH SEECOMMENT PRN PRN Reason: Withdrawal Symptoms Last Admin: 08/18/19 06:34 Dose: 5 mg Documented by: Folic Acid (Folic Acid) 1 mg IV DAILY [facility] Last Admin: 08/18/19 11:35 Dose: 1 mg Documented by: Potassium Chloride/Dextrose/Sod Cl (D5 1/2 Ns W/ 20 Meq/L Kcl) 1,000 mls @ 100 mls/hr IV ASDIRECTED [facility] Last Admin: 08/18/19 07:24 Dose: 100 mls/hr Documented by: Pantoprazole Sodium 80 mg/ (Sodium Chloride) 100 mls @ 10 mls/hr IV Q10H [facility] Last Admin: 08/18/19 13:59 Dose: 10 mls/hr Documented by: Ceftriaxone Sodium 2 gm/ (Sodium Chloride) 100 mls @ 200 mls/hr IV Q24H [facility] Last Admin: 08/18/19 09:03 Dose: 200 mls/hr Documented by: Sodium Chloride (Normal Saline) 250 mls @ 100 mls/hr IV ASDIRECTED STEPHANE Stop: 08/19/19 00:59 Last Admin: 08/18/19 01:16 Dose: 100 mls/hr Documented by: Losartan Potassium (Cozaar) 12.5 mg PO DAILY [facility] Last Admin: 08/18/19 11:07 Dose: Not Given Documented by: Magnesium Oxide (Magnesium Oxide) 400 mg PO BID [facility] Last Admin: 08/18/19 11:07 Dose: Not Given Documented by: Mirtazapine (Remeron) 15 mg PO BEDTIME STEPHANE Last Admin: 08/17/19 20:45 Dose: 15 mg Documented by: Montelukast Sodium (Singulair) 10 mg PO BEDTIME STEPHANE Last Admin: 08/17/19 20:45 Dose: Not Given Documented by: Naltrexone HCl (Naltrexone) 50 mg PO DAILY [facility] Last Admin: 08/18/19 11:07 Dose: Not Given Documented by: Olanzapine (Zyprexa) 10 mg PO BEDTIME [facility] Last Admin: 08/16/19 21:19 Dose: Not Given Documented by: Olanzapine (Zyprexa) 10 mg IM BEDTIME [facility] Last Admin: 08/17/19 20:05 Dose: 10 mg Documented by: Ondansetron HCl (Zofran) 4 mg IV Q4H PRN PRN Reason: Nausea/Vomiting Last Admin: 08/15/19 23:53 Dose: 4 mg Documented by: Simvastatin (Zocor) 20 mg PO DAILY [facility] Last Admin: 08/18/19 11:08 Dose: Not Given Documented by: Sodium Chloride (Saline Flush) 10 ml FLUSH ASDIRECTED PRN PRN Reason: Keep Vein Open Last Admin: 08/18/19 12:56 Dose: 10 ml Documented by: Sucralfate (Carafate) 1 gm PO QID [facility] Last Admin: 08/18/19 16:55 Dose: 1 gm Documented by: Thiamine HCl (Vitamin B-1) 100 mg IVPUSH DAILY [facility] Last Admin: 08/18/19 11:17 Dose: 100 mg Documented by: Discontinued Medications Al Hydroxide/Mg Hydroxide (Mag-Al Plus) 30 ml PO ONETIME ONE Stop: 08/16/19 01:08 Last Admin: 08/16/19 01:25 Dose: 30 ml Documented by: Calcium Carbonate/Glycine (Tums) 1,000 mg PO ONETIME ONE Stop: 08/15/19 16:43 Last Admin: 08/15/19 17:13 Dose: 1,000 mg Documented by: Calcium Carbonate/Glycine (Tums) 1,000 mg PO Q2HR PRN PRN Reason: Indigestion Chlordiazepoxide HCl (Librium) 75 mg PO ONETIME ONE Stop: 08/16/19 09:42 Last Admin: 08/16/19 09:45 Dose: 75 mg Documented by: Chlordiazepoxide HCl (Librium) 0 mg PO Q1H PRN; Protocol PRN Reason: Withdrawal Symptoms Chlordiazepoxide HCl (Librium) 50 mg PO Q4H STEPHANE Stop: 08/17/19 13:31 Last Admin: 08/17/19 14:27 Dose: Not Given Documented by: Chlordiazepoxide HCl (Librium) 50 mg PO Q6H STEPHANE Stop: 08/18/19 11:31 Chlordiazepoxide HCl (Librium) 25 mg PO Q4H STEPHANE Stop: 08/19/19 13:31 Chlordiazepoxide HCl (Librium) 25 mg PO Q6H STEPHANE Stop: 08/20/19 11:31 Dextrose/Water (Dextrose 50% In Water) 25 ml IVPUSH ASDIRECTED ONE Stop: 08/18/19 13:43 Last Admin: 08/18/19 13:59 Dose: 25 ml Documented by: Diazepam (Valium) 10 mg IVPUSH ONETIME ONE Stop: 08/15/19 16:15 Last Admin: 08/15/19 16:36 Dose: 10 mg Documented by: Diazepam (Valium) 5 - 10 mg IVPUSH Q1H PRN PRN Reason: Withdrawal Symptoms Last Admin: 08/16/19 23:15 Dose: 10 mg Documented by: Diphenhydramine HCl (Benadryl) 50 mg IVPUSH Q6H [facility] Last Admin: 08/16/19 23:04 Dose: 50 mg Documented by: Diphenhydramine HCl (Benadryl) 50 mg IVPUSH Q6H PRN PRN Reason: Itching Last Admin: 08/17/19 20:45 Dose: 50 mg Documented by: Enoxaparin Sodium (Lovenox) 40 mg SUBCUT DAILY [facility] Last Admin: 08/16/19 08:34 Dose: 40 mg Documented by: Folic Acid (Folic Acid) 1 mg PO BEDTIME STEPHANE Last Admin: 08/17/19 20:28 Dose: Not Given Documented by: Folic Acid (Folic Acid) 1 mg PO DAILY [facility] Last Admin: 08/18/19 11:09 Dose: Not Given Documented by: Furosemide (Lasix) 20 mg IVPUSH NOW ONE Stop: 08/16/19 23:15 Last Admin: 08/16/19 23:26 Dose: 20 mg Documented by: Haloperidol Lactate (Haldol) 5 mg IVPUSH ONETIME ONE Stop: 08/16/19 09:42 Last Admin: 08/16/19 09:45 Dose: 5 mg Documented by: Haloperidol Lactate (Haldol) 5 mg IM ONETIME ONE Stop: 08/16/19 12:48 Last Admin: 08/16/19 12:52 Dose: 5 mg Documented by: Sodium Chloride (Normal Saline) 1,000 mls @ 1,000 mls/hr IV .BOLUS [facility] Last Admin: 08/15/19 13:42 Dose: 1,000 mls/hr Documented by: Magnesium Sulfate/Dextrose 1 (gm/ Premix) 100 mls @ 100 mls/hr IV Q1H STEPHANE Stop: 08/15/19 18:29 Last Admin: 08/15/19 18:08 Dose: 100 mls/hr Documented by: Magnesium Sulfate 2 gm/ Premix 50 mls @ 25 mls/hr IV ONETIME ONE Stop: 08/15/19 23:31 Last Admin: 08/15/19 22:36 Dose: Not Given Documented by: Sodium Chloride (Normal Saline) 1,000 mls @ 999 mls/hr IV ONETIME ONE Stop: 08/16/19 16:03 Last Admin: 08/16/19 15:12 Dose: 999 mls/hr Documented by: Sodium Chloride (Normal Saline) 250 mls @ 250 mls/hr IV .BOLUS ONE Stop: 08/16/19 21:59 Last Admin: 08/16/19 21:15 Dose: 250 mls/hr Documented by: Sodium Chloride (Normal Saline) Confirm Administered Dose 1,000 mls @ as directed .ROUTE .STK-MED ONE Stop: 08/16/19 20:37 Last Admin: 08/16/19 21:16 Dose: Not Given Documented by: Sodium Chloride (Normal Saline) Confirm Administered Dose 250 mls @ as directed .ROUTE .STK-MED ONE Stop: 08/16/19 20:38 Last Admin: 08/16/19 21:16 Dose: Not Given Documented by: Magnesium Sulfate 2 gm/ Premix 50 mls @ 25 mls/hr IV ONETIME ONE Stop: 08/16/19 23:59 Last Admin: 08/16/19 22:25 Dose: 25 mls/hr Documented by: Sodium Phosphate 30 mmole/ (Sodium Chloride) 260 mls @ 86.667 mls/hr IV ONETIME ONE Stop: 08/16/19 22:31 Last Admin: 08/16/19 22:34 Dose: 86.667 mls/hr Documented by: Magnesium Sulfate 2 gm/ Premix 50 mls @ 25 mls/hr IV ONETIME ONE Stop: 08/17/19 10:00 Last Admin: 08/17/19 08:55 Dose: 25 mls/hr Documented by: Potassium Chloride 10 meq/ (Premix) 100 mls @ 100 mls/hr IV Q1H STEPHANE Stop: 08/17/19 10:14 Last Admin: 08/17/19 09:56 Dose: 100 mls/hr Documented by: Lactated Ringer's (Ringers, Lactated) 1,000 mls @ 999 mls/hr IV .BOLUS ONE Stop: 08/17/19 12:02 Last Admin: 08/17/19 11:05 Dose: 999 mls/hr Documented by: Lactated Ringer's (Ringers, Lactated) Confirm Administered Dose 1,000 mls @ as directed .ROUTE .STK-MED ONE Stop: 08/17/19 11:05 Last Admin: 08/17/19 11:47 Dose: Not Given Documented by: Sodium Phosphate 30 mmole/ (Sodium Chloride) 260 mls @ 86.667 mls/hr IV ONETIME ONE Stop: 08/18/19 08:31 Last Admin: 08/18/19 09:39 Dose: 86.667 mls/hr Documented by: Magnesium Sulfate 4 gm/ Premix 50 mls @ 12.5 mls/hr IV ONETIME ONE Stop: 08/18/19 12:18 Last Admin: 08/18/19 08:50 Dose: 12.5 mls/hr Documented by: Sodium Chloride (Normal Saline) 100 mls @ 60 mls/hr IV ASDIRECTED [facility] Stop: 08/18/19 16:00 Last Admin: 08/18/19 12:56 Dose: 60 mls/hr Documented by: Iopamidol (Isovue-370 (76%)) 100 ml IVPUSH ONETIME ONE Stop: 08/18/19 12:19 Last Admin: 08/18/19 12:38 Dose: 100 ml Documented by: Lorazepam (Ativan) 1 mg IVPUSH ONETIME ONE Stop: 08/15/19 13:22 Last Admin: 08/15/19 13:42 Dose: 1 mg Documented by: Metoprolol Tartrate (Lopressor) 5 mg IVPUSH ONETIME ONE Stop: 08/16/19 12:29 Last Admin: 08/16/19 13:00 Dose: 5 mg Documented by: Non-Formulary Medication (Potassium Chloride [Potassium Chloride]) 20 meq PO DAILY [facility] Ondansetron HCl (Zofran) 4 mg IVPUSH ONETIME ONE Stop: 08/15/19 13:13 Last Admin: 08/15/19 13:43 Dose: 4 mg Documented by: Pantoprazole Sodium (Protonix) 40 mg PO ACBREAKFAST [facility] Pantoprazole Sodium (Protonix Iv) 40 mg IVPUSH Q12H [facility] Last Admin: 08/17/19 05:36 Dose: Not Given Documented by: Pantoprazole Sodium (Protonix Iv) 40 mg IVPUSH ONETIME ONE Stop: 08/16/19 21:18 Last Admin: 08/16/19 23:10 Dose: 40 mg Documented by: Potassium Chloride (Klor-Con M20) 20 meq PO BID [facility] Last Admin: 08/16/19 08:31 Dose: 20 meq Documented by: Sodium Chloride (Saline Flush) 10 ml FLUSH ONETIME ONE Stop: 08/18/19 12:19 Last Admin: 08/18/19 12:38 Dose: 10 ml Documented by: Thiamine HCl (Vitamin B-1) 100 mg IVPUSH ONETIME ONE Stop: 08/15/19 13:15 Last Admin: 08/15/19 13:45 Dose: 100 mg Documented by: Thiamine HCl (Vitamin B-1) 100 mg IVPUSH ONETIME ONE Stop: 08/15/19 21:01 Last Admin: 08/15/19 20:01 Dose: 100 mg Documented by: Thiamine HCl (Vitamin B-1) 100 mg PO DAILY [facility] Last Admin: 08/18/19 11:10 Dose: Not Given Documented by: Thiamine HCl (Vitamin B-1) 100 mg PO BEDTIME [facility] Last Admin: 08/17/19 20:29 Dose: Not Given Documented by: - Exam Quality Assessment: Supplemental Oxygen General: Sedated HEENT: Pupils Equal, Mucous Membr. Moist/[place] Neck: Supple Lungs: Crackles (Basis). No: Normal Respiratory Effort (Increased respiratory rate) Cardiovascular: Regular Rhythm, Tachycardia GI/Abdominal Exam: Normal Bowel Sounds, Soft, Non-Tender, No Organomegaly, No Distention, No Abnormal Bruit Back Exam: Normal Inspection Extremities: Normal Inspection, Normal Range of Motion, Non-Tender, No Pedal Edema, Normal Capillary Refill Skin: Warm, Dry, Intact Psy/Mental Status: Withdrawal Symptoms Sepsis Event Note - Evaluation Sepsis Screening Result: Sepsis Risk - Focused Exam Vital Signs: Vital Signs Temp Resp BP BP Pulse Ox Pulse Ox 08/18/19 16:00 98.3 F 19 115/63 98 08/18/19 15:00 19 99 08/18/19 14:50 32 H 99 08/18/19 14:40 34 H 99 08/18/19 14:30 30 H 08/18/19 14:20 25 H 08/18/19 14:10 23 H 08/18/19 14:00 25 H 08/18/19 13:50 33 H 99 08/18/19 13:40 37 H 98 08/18/19 13:30 32 H 98 08/18/19 13:20 26 H 94 L 08/18/19 13:10 30 H 95 08/18/19 13:01 24 H 100 08/18/19 12:50 22 H 97 08/18/19 12:40 27 H 99 08/18/19 12:30 35 H 92 L 08/18/19 12:20 27 H 95 08/18/19 12:10 28 H 99 08/18/19 12:02 22 H 106/50 L 96 08/18/19 12:01 25 H 89/48 L 85 L 08/18/19 12:00 97.6 F 21 H 93 L 08/18/19 11:50 20 82 L 08/18/19 11:40 21 H 78 L 08/18/19 11:30 28 H 90 L 08/18/19 11:20 28 H 93 L 08/18/19 11:10 28 H 90 L 08/18/19 11:05 98 08/18/19 11:00 22 H 99 08/18/19 10:50 31 H 98 08/18/19 10:40 20 98 08/18/19 10:30 30 H 96 08/18/19 10:20 22 H 94 L 08/18/19 10:10 19 94 L 08/18/19 10:07 19 119/69 99 08/18/19 10:06 20 96 08/18/19 10:01 24 H 140/121 H 96 08/18/19 10:00 20 97 08/18/19 09:50 23 H 95 08/18/19 09:40 23 H 97 08/18/19 09:30 23 H 92 L 08/18/19 09:20 23 H 95 08/18/19 09:10 25 H 94 L 08/18/19 09:00 29 H 93 L 08/18/19 08:50 27 H 93 L 08/18/19 08:40 27 H 93 L 08/18/19 08:30 25 H 96 08/18/19 08:20 33 H 99 08/18/19 08:10 28 H 99 08/18/19 08:01 29 H 99 08/18/19 08:00 98 F 28 H 114/56 L 99 08/18/19 07:59 29 H 99 08/18/19 07:50 31 H 99 08/18/19 07:40 30 H 98 08/18/19 07:30 26 H 100 08/18/19 07:20 29 H 98 08/18/19 07:10 30 H 97 08/18/19 07:00 30 H 131/63 98 08/18/19 06:13 99 08/18/19 06:00 21 H 131/63 90 L Date Exam was Performed: 08/18/19 Time Exam was Performed: 20:30 - Problem List & Annotations (1) Pneumonia SNOMED Code(s): 402869852 Code(s): J18.9 - PNEUMONIA, UNSPECIFIED ORGANISM Status: Acute Current Visit: Yes (2) Alcohol withdrawal syndrome SNOMED Code(s): 316515957 Code(s): F10.239 - ALCOHOL DEPENDENCE WITH WITHDRAWAL, UNSPECIFIED Status: Acute Priority: High Current Visit: Yes Qualifiers: Complication of substance-induced condition: uncomplicated Qualified Code(s): F10.230 - Alcohol dependence with withdrawal, uncomplicated (3) Hypomagnesemia SNOMED Code(s): 882005221 Code(s): E83.42 - HYPOMAGNESEMIA Status: Acute Priority: High Current Visit: Yes (4) Upper GI bleed SNOMED Code(s): 24834147 Code(s): K92.2 - GASTROINTESTINAL HEMORRHAGE, UNSPECIFIED Status: Acute Current Visit: Yes (5) Anemia SNOMED Code(s): 822713271 Code(s): D64.9 - ANEMIA, UNSPECIFIED Status: Acute Current Visit: No Qualifiers: Anemia type: unspecified type Qualified Code(s): D64.9 - Anemia, unspecified (6) Hypoalbuminemia SNOMED Code(s): 648587655 Code(s): E88.09 - OTH DISORDERS OF PLASMA-PROTEIN METABOLISM, NEC Status: Acute Current Visit: No (7) Lymphadenopathy, mediastinal SNOMED Code(s): 70853635 Code(s): R59.0 - LOCALIZED ENLARGED LYMPH NODES Status: Acute Current Visit: Yes - Problem List Review Problem List Initiated/Reviewed/Updated: Yes - My Orders Last 24 Hours: My Active Orders 08/17/19 19:37 Communication Order [RC] ASDIRECTED 08/17/19 21:00 OLANZapine [ZyPREXA] 10 mg IM BEDTIME 08/17/19 22:30 Sodium Chloride 0.9% [Normal Saline] 250 ml IV ASDIRECTED 08/18/19 00:00 Blood Glucose Check, Bedside [RC] Q6HR 08/18/19 01:24 Acetaminophen [Tylenol] 650 mg PO Q6H PRN 08/18/19 11:52 CPAP [RESPCARE] Routine 08/18/19 12:00 Folic Acid 1 mg IV DAILY Thiamine [Vitamin B-1] 100 mg IVPUSH DAILY 08/18/19 Dinner Clear Liquid Diet [DIET] 08/19/19 05:11 CBC WITH AUTO DIFF [HEME] AM CMP [COMPREHENSIVE METABOLIC PN,CMP] [CHEM] AM MAGNESIUM [CHEM] AM PHOSPHORUS [CHEM] AM - Assessment Assessment:: 63-year-old chronic alcoholic with possible alcohol withdrawal seizure/syndrome Admission: August 15, 2019 * Patient found unresponsive by family member, mother * Last alcoholic beverage 24 hours prior to presentation to emergency department * Tremulous and anxious on presentation to the emergency department * Drinking 5-6 shots size bottles a day * Failed multiple inpatient and outpatient alcohol rehab programs August 16, 2019 * Patient with worsening withdrawal symptoms * CIWAA's of 15 August 17, 2019 * Severe alcohol withdrawal with altered mental status and confusion * Patient requiring large doses of diazepam * Required 2 doses of Haldol for withdrawal symptoms * Continues to be tachycardic and tachypneic even after volume resuscitation likely secondary to alcohol withdrawal August 18, 2019 * CIWAA's continue to be 15, but requiring less diazepam. * Continues to be confused and hallucinating * Tachycardia and tachypnea have improved Upper GI bleed August 17, 2019 * Hemoglobin dropped 5 g over 13 hours * Given 2 units packed red blood cells * Having large amounts of liquid black stool today * Hemoglobin this morning 10.3 and a repeat of 9.5 * Started on Protonix drip * Has history of ulcerative esophagitis on EGD 3 weeks ago * History of colonic polypectomy 3 weeks ago * Continues to be tachycardic and tachypneic but both have improved overnight. * Blood pressure is stable with map greater than 65 * N.p.o. August 18, 2019 * Hemoglobin decreased to 8.1 requiring 2 more units of packed red blood cells. * Patient had significant melena until mid afternoon. * Hemoglobin stabilized at around 9.7 and 9.9 * Started on liquid diet late evening. * CTA shows thickening of the esophageal wall. * Dr. Whatley in surgery following closely. Patient is not stable at this time to proceed with upper endoscopy. * PT 10.7, PTT increased to 60, normal fibrinogen and fibrin degradation products, d-dimer 2.32. Bilateral pneumonia Asthma August 17, 2019 * Chest x-ray consistent with patchy areas of increased density bilaterally. * Low-grade fever overnight of 100.7 while getting blood transfusion * Requiring 1 to 2 L FiO2 * Large amounts of copious secretions requiring suctioning * Possibly secondary to aspiration. Patient has had altered mental status secondary to alcohol withdrawal * Started on Rocephin * Blood cultures drawn August 18, 2019 * CT of the chest shows patchy areas of increased density within the right upper lung and right middle lobe raising the possibility of pneumonia * T-max 100.1 * White count is normal at 7 * Switched to CPAP and was able to maintain oxygenation on room air * Preliminary blood cultures negative * On Rocephin * D-dimer was positive and CTA was performed showing negative pulmonary embolism Hypocalcemia, hypoalbuminemia, hypokalemia, low vitamin D, hypomagnesemia Admission * Corrected calcium 7.8 * Albumin 2.9 * Review of old records shows that she has chronically low albumin and calcium * Patient is asymptomatic * Hypoalbuminemia likely secondary to poor protein intake * Hypocalcemia likely multifactorial to include hypomagnesemia, hypoalbuminemia, and poor oral intake. * Likely secondary to poor p.o. intake * Also likely contributing to hypocalcemia August 16, 2019 * Hypocalcemia resolved with resolution of hypomagnesemia: Corrected calcium 8.8 * Potassium slightly decreased at 3.2 * Albumin still low at 3.1 * Vitamin D 20 * Magnesium corrected at 2.1 August 17, 2019 * Magnesium 1.8 * Check PTH * Follow phosphorus * Corrected calcium 8.7 * Albumin 2.0 August 18, 2019 * Corrected calcium 8.6 * Waiting PTH * Phosphorus 1.9 * Magnesium 1.5 * Albumin 1.6 Prominent mediastinal lymph nodes * Radiology recommends follow-up contrast enhanced chest CT in 9 months Chronic medical problems History of depression, anxiety, and bipolar disorder * Likely contributing to alcoholism and vice versa * Currently appears to be euthymic Hypertension * Blood pressure in the emergency department 136/82 * Blood pressure is stable CTA chest Impression: 1. Small bilateral pleural effusions. Left basilar atelectasis. 2. Patchy areas of increased density within the right upper lung and right middle lobe raising the possibility of pneumonia. 3. No findings of pulmonary embolism. 4. Slightly prominent mediastinal lymph nodes possibly an old inflammatory basis but recommend repeat contrast-enhanced chest CT in 9 months to confirm stability. This follow-up study would occur in April 2020. 5. Thickening of the esophagus wall raising the possibility of reflux esophagitis. - Plan Plan:: Neurology Patient confused and hallucinating Continues getting diazepam for withdrawal. Continue following CIWAA scores Diazepam as needed alcohol withdrawal based on CIWA score Cardiovascular Monitor vital signs in ICU Lopressor if heart rate exceeds 150. MAP goal greater than 65 Respiratory Aspiration precautions Regular suctioning and oral care as needed FiO2 to keep SPO2 greater than 92 but less than 96% Rocephin 2 g daily Gastrointestinal and Nutrition: Advance diet slowly Dr. Whatley considering EGD if she stabilizes, if not she will request her to follow-up as an outpatient Kidney and Electrolytes: Strict I's and O's Daily weights Monitor electrolytes and replace as needed Stop IV fluids now taking orally Supplement phosphorus, magnesium May need to give albumin Infectious disease: Bilateral pneumonia on chest x-ray and CT WBC 7.1 with no bandemia T-max 100.1 continue to trend temperature Await blood culture results On Rocephin 2 g every 24 hours Hematology/Coagulation: Dr. Whatley and surgery following Stop Protonix drip in the morning and start Protonix 40 mg IV push twice daily. N.p.o. Trend hemoglobin and transfuse as needed Follow CBC closely No VTE prophylaxis secondary to active GI bleed VTE prophylaxis with Lovenox CODE STATUS: Full code Disposition: Admit to ICU. Consider transfer to inpatient rehab after patient is medically stable.
[2019-08-18] MEDS ORDERED: chlordiazePOXIDE 25 MG Cap PO SCH (17:30)
[2019-08-18] MEDS: Montelukast 10 MG Tab PO SCH (20:10)
[2019-08-18] MEDS: OLANZapine 10 MG Vial IM SCH (20:10)
[2019-08-18] MEDS: Mirtazapine 15 MG Tab PO SCH (20:10)
[2019-08-18] MEDS ORDERED: Albuterol/Ipratropium 3.0-0.5 MG/3 ML Neb Soln NEB PRN (21:06)
[2019-08-19] MEDS: Diazepam 5 MG Tab PO SCH (06:24)
[2019-08-19] MEDS: Calcium Carbonate/Vitamin D3 600 MG-200 Units Tab PO SCH ×3 (06:24→17:29)
[2019-08-19] MEDS: Pantoprazole 40 MG Vial IVPUSH SCH ×2 (06:24→17:38)
[2019-08-19] MEDS ORDERED: LORazepam 2 MG/ML SDV IVPUSH PRN (08:00)
[2019-08-19] MEDS: Haloperidol Lactate 5 MG/ML SDV IVPUSH ONE ×2 (08:17→08:29)
[2019-08-19] MEDS: LORazepam 2 MG/ML SDV IVPUSH SCH ×7 (08:30→22:23)
--- NOTE | 2019-08-19 09:18 | PCM.CONSN ---
- General Info Date of Service: 08/19/19 Subjective Update: Patient with improved mental status and conversant. Reports feeling hungry. Per nursing, decrease melena - Patient Data Vitals - Most Recent: Last Vital Signs Temp 37.0 C 08/19/19 07:59 Pulse 105 H 08/19/19 07:59 Resp 28 H 08/19/19 07:59 BP 103/55 L 08/19/19 07:59 Pulse Ox 93 L 08/19/19 04:00 Weight - Most Recent: 56.472 kg I&O - Last 24 Hours: Intake & Output 08/18/19 08/19/19 08/19/19 22:59 06:59 14:59 Intake Total 2431 360 Output Total 695 525 Balance 1736 -165 Lab Results Last 24 Hours: Laboratory Results - last 24 hr 08/18/19 08/18/19 08/18/19 Range/Units 06:12 10:30 10:30 WBC (3.98-10.04) K/mm3 RBC (3.98-5.22) M/mm3 Hgb 9.7 L (11.2-15.7) gm/dl Hct 30.9 L (34.1-44.9) % MCV (79.4-94.8) fl MCH (25.6-32.2) pg MCHC (32.2-35.5) g/dl RDW Std Deviation (36.4-46.3) fL Plt Count (182-369) K/mm3 MPV (9.4-12.3) fl Neut % (Auto) (34.0-71.1) % Lymph % (Auto) (19.3-51.7) % [place] % (Auto) (4.7-12.5) % Eos % (Auto) (0.7-5.8) Baso % (Auto) (0.1-1.2) % Neut # (Auto) (1.56-6.13) K/mm3 Lymph # (Auto) (1.18-3.74) K/mm3 [place] # (Auto) (0.24-0.36) K/mm3 Eos # (Auto) (0.04-0.36) K/mm3 Baso # (Auto) (0.01-0.08) K/mm3 Manual Slide Review PT 10.7 (9.7-12.0) SECONDS INR 0.98 APTT (22-31) SECONDS Fibrinogen (187-446) mg/dL Fibrin Degrad Products (<5) ug/mL D-Dimer, Quantitative (0.19-0.50) mg/L Sodium (136-145) mEq/L Potassium (3.5-5.1) mEq/L Chloride (98-107) mEq/L Carbon Dioxide (21-32) mEq/L Anion Gap (5-15) BUN (7-18) mg/dL Creatinine (0.55-1.02) mg/dL Est Cr Clr Drug Dosing mL/min Estimated GFR (MDRD) (>60) mL/min BUN/Creatinine Ratio (14-18) Glucose (80-115) mg/dL POC Glucose 99 (80-115) mg/dL Calcium (8.5-10.1) mg/dL Phosphorus (2.6-4.7) mg/dL Magnesium (1.8-2.4) mg/dl Total Bilirubin (0.2-1.0) mg/dL AST (15-37) U/L ALT (14-59) U/L Alkaline Phosphatase (46-116) U/L Total Protein (6.4-8.2) g/dl Albumin (3.4-5.0) g/dl Globulin gm/dL Albumin/Globulin Ratio (1-2) 08/18/19 08/18/19 08/18/19 Range/Units 10:30 10:30 10:30 WBC (3.98-10.04) K/mm3 RBC (3.98-5.22) M/mm3 Hgb (11.2-15.7) gm/dl Hct (34.1-44.9) % MCV (79.4-94.8) fl MCH (25.6-32.2) pg MCHC (32.2-35.5) g/dl RDW Std Deviation (36.4-46.3) fL Plt Count (182-369) K/mm3 MPV (9.4-12.3) fl Neut % (Auto) (34.0-71.1) % Lymph % (Auto) (19.3-51.7) % [place] % (Auto) (4.7-12.5) % Eos % (Auto) (0.7-5.8) Baso % (Auto) (0.1-1.2) % Neut # (Auto) (1.56-6.13) K/mm3 Lymph # (Auto) (1.18-3.74) K/mm3 [place] # (Auto) (0.24-0.36) K/mm3 Eos # (Auto) (0.04-0.36) K/mm3 Baso # (Auto) (0.01-0.08) K/mm3 Manual Slide Review PT (9.7-12.0) SECONDS INR APTT 60 H D (22-31) SECONDS Fibrinogen 445 (187-446) mg/dL Fibrin Degrad Products < 5 ug/ml (<5) ug/mL D-Dimer, Quantitative 2.32 H (0.19-0.50) mg/L Sodium (136-145) mEq/L Potassium (3.5-5.1) mEq/L Chloride (98-107) mEq/L Carbon Dioxide (21-32) mEq/L Anion Gap (5-15) BUN (7-18) mg/dL Creatinine (0.55-1.02) mg/dL Est Cr Clr Drug Dosing mL/min Estimated GFR (MDRD) (>60) mL/min BUN/Creatinine Ratio (14-18) Glucose (80-115) mg/dL POC Glucose (80-115) mg/dL Calcium (8.5-10.1) mg/dL Phosphorus (2.6-4.7) mg/dL Magnesium (1.8-2.4) mg/dl Total Bilirubin (0.2-1.0) mg/dL AST (15-37) U/L ALT (14-59) U/L Alkaline Phosphatase (46-116) U/L Total Protein (6.4-8.2) g/dl Albumin (3.4-5.0) g/dl Globulin gm/dL Albumin/Globulin Ratio (1-2) 08/18/19 08/18/19 08/18/19 Range/Units 12:26 13:34 14:18 WBC (3.98-10.04) K/mm3 RBC (3.98-5.22) M/mm3 Hgb (11.2-15.7) gm/dl Hct (34.1-44.9) % MCV (79.4-94.8) fl MCH (25.6-32.2) pg MCHC (32.2-35.5) g/dl RDW Std Deviation (36.4-46.3) fL Plt Count (182-369) K/mm3 MPV (9.4-12.3) fl Neut % (Auto) (34.0-71.1) % Lymph % (Auto) (19.3-51.7) % [place] % (Auto) (4.7-12.5) % Eos % (Auto) (0.7-5.8) Baso % (Auto) (0.1-1.2) % Neut # (Auto) (1.56-6.13) K/mm3 Lymph # (Auto) (1.18-3.74) K/mm3 [place] # (Auto) (0.24-0.36) K/mm3 Eos # (Auto) (0.04-0.36) K/mm3 Baso # (Auto) (0.01-0.08) K/mm3 Manual Slide Review PT (9.7-12.0) SECONDS INR APTT (22-31) SECONDS Fibrinogen (187-446) mg/dL Fibrin Degrad Products (<5) ug/mL D-Dimer, Quantitative (0.19-0.50) mg/L Sodium (136-145) mEq/L Potassium (3.5-5.1) mEq/L Chloride (98-107) mEq/L Carbon Dioxide (21-32) mEq/L Anion Gap (5-15) BUN (7-18) mg/dL Creatinine (0.55-1.02) mg/dL Est Cr Clr Drug Dosing mL/min Estimated GFR (MDRD) (>60) mL/min BUN/Creatinine Ratio (14-18) Glucose (80-115) mg/dL POC Glucose 82 79 L 93 (80-115) mg/dL Calcium (8.5-10.1) mg/dL Phosphorus (2.6-4.7) mg/dL Magnesium (1.8-2.4) mg/dl Total Bilirubin (0.2-1.0) mg/dL AST (15-37) U/L ALT (14-59) U/L Alkaline Phosphatase (46-116) U/L Total Protein (6.4-8.2) g/dl Albumin (3.4-5.0) g/dl Globulin gm/dL Albumin/Globulin Ratio (1-2) 08/18/19 08/19/19 08/19/19 Range/Units 16:07 05:15 05:15 WBC 5.81 (3.98-10.04) K/mm3 RBC 3.37 L (3.98-5.22) M/mm3 Hgb 9.9 L 9.3 L (11.2-15.7) gm/dl Hct 31.0 L 29.8 L (34.1-44.9) % MCV 88.4 (79.4-94.8) fl MCH 27.6 (25.6-32.2) pg MCHC 31.2 L (32.2-35.5) g/dl RDW Std Deviation 59.5 H (36.4-46.3) fL Plt Count 85 L (182-369) K/mm3 MPV 9.8 (9.4-12.3) fl Neut % (Auto) 73.1 H (34.0-71.1) % Lymph % (Auto) 13.8 L (19.3-51.7) % [place] % (Auto) 7.4 (4.7-12.5) % Eos % (Auto) 5.2 (0.7-5.8) Baso % (Auto) 0.3 (0.1-1.2) % Neut # (Auto) 4.25 (1.56-6.13) K/mm3 Lymph # (Auto) 0.80 L (1.18-3.74) K/mm3 [place] # (Auto) 0.43 H (0.24-0.36) K/mm3 Eos # (Auto) 0.30 (0.04-0.36) K/mm3 Baso # (Auto) 0.02 (0.01-0.08) K/mm3 Manual Slide Review Abnormal smear PT (9.7-12.0) SECONDS INR APTT (22-31) SECONDS Fibrinogen (187-446) mg/dL Fibrin Degrad Products (<5) ug/mL D-Dimer, Quantitative (0.19-0.50) mg/L Sodium 138 (136-145) mEq/L Potassium 3.2 L (3.5-5.1) mEq/L Chloride 108 H (98-107) mEq/L Carbon Dioxide 20 L (21-32) mEq/L Anion Gap 13.2 (5-15) BUN 5 L (7-18) mg/dL Creatinine 0.5 L (0.55-1.02) mg/dL Est Cr Clr Drug Dosing 105.34 mL/min Estimated GFR (MDRD) > 60 (>60) mL/min BUN/Creatinine Ratio 10.0 L (14-18) Glucose 92 (80-115) mg/dL POC Glucose (80-115) mg/dL Calcium 6.5 L (8.5-10.1) mg/dL Phosphorus 1.8 L (2.6-4.7) mg/dL Magnesium 1.8 (1.8-2.4) mg/dl Total Bilirubin 0.5 (0.2-1.0) mg/dL AST 30 (15-37) U/L ALT 16 (14-59) U/L Alkaline Phosphatase 68 (46-116) U/L Total Protein 4.2 L (6.4-8.2) g/dl Albumin 1.7 L (3.4-5.0) g/dl Globulin 2.5 gm/dL Albumin/Globulin Ratio 0.7 L (1-2) Chance Results Last 24 Hours: Microbiology 08/17/19 10:24 Aerobic Blood Culture - Preliminary Blood - Venous NO GROWTH AFTER 1 DAY Anaerobic Blood Culture - Preliminary NO GROWTH AFTER 1 DAY 08/17/19 10:33 Aerobic Blood Culture - Preliminary Blood - Venous - Lab Draw NO GROWTH AFTER 1 DAY Anaerobic Blood Culture - Preliminary NO GROWTH AFTER 1 DAY Med Orders - Current: Current Medications Acetaminophen (Tylenol) 650 mg RECTAL Q4H PRN PRN Reason: Fever Last Admin: 08/16/19 22:18 Dose: 650 mg Documented by: Acetaminophen (Tylenol) 650 mg PO Q6H PRN PRN Reason: Fever Last Admin: 08/18/19 01:40 Dose: 650 mg Documented by: Albuterol (Proventil Hfa) 0 gm INH Q4H PRN PRN Reason: Shortness of Breath Albuterol/Ipratropium (Duoneb 3.0-0.5 Mg/3 Ml) 3 ml NEB Q6HRRT PRN PRN Reason: Shortness of Breath Calcium Carbonate (Calcium Carbonate/Vitamin D 600 Mg-200 Unit) 1 tab PO TIDMEALS [facility] Last Admin: 08/19/19 06:24 Dose: 1 tab Documented by: Calcium Carbonate/Glycine (Tums) 1,000 mg PO Q6HR PRN PRN Reason: Indigestion Last Admin: 08/16/19 06:31 Dose: 1,000 mg Documented by: Cholecalciferol (Vitamin D3) 5,000 unit PO DAILY [facility] Last Admin: 08/18/19 11:08 Dose: Not Given Documented by: Diazepam (Valium.) 5 - 10 mg PO Q1H PRN PRN Reason: Withdrawal Symptoms Last Admin: 08/16/19 06:56 Dose: 10 mg Documented by: Diazepam (Valium.) 10 mg PO Q8HR [facility] Last Admin: 08/19/19 06:24 Dose: 10 mg Documented by: Diazepam (Valium) 5 - 10 mg IVPUSH SEECOMMENT PRN PRN Reason: Withdrawal Symptoms Last Admin: 08/19/19 03:38 Dose: 10 mg Documented by: Folic Acid (Folic Acid) 1 mg IV DAILY [facility] Last Admin: 08/18/19 11:35 Dose: 1 mg Documented by: Ceftriaxone Sodium 2 gm/ (Sodium Chloride) 100 mls @ 200 mls/hr IV Q24H [facility] Last Admin: 08/18/19 09:03 Dose: 200 mls/hr Documented by: Lorazepam (Ativan) 2 mg IVPUSH Q15M PRN PRN Reason: CIWA >10 Stop: 08/19/19 14:00 Lorazepam (Ativan) 2 mg IVPUSH Q1H [facility] Stop: 08/19/19 18:01 Lorazepam (Ativan) 2 mg IVPUSH Q4H [facility] Stop: 08/20/19 10:01 Losartan Potassium (Cozaar) 12.5 mg PO DAILY [facility] Last Admin: 08/18/19 11:07 Dose: Not Given Documented by: Magnesium Oxide (Magnesium Oxide) 400 mg PO BID [facility] Last Admin: 08/18/19 20:10 Dose: 400 mg Documented by: Mirtazapine (Remeron) 15 mg PO BEDTIME [facility] Last Admin: 08/18/19 20:10 Dose: 15 mg Documented by: Montelukast Sodium (Singulair) 10 mg PO BEDTIME [facility] Last Admin: 08/18/19 20:10 Dose: 10 mg Documented by: Naltrexone HCl (Naltrexone) 50 mg PO DAILY [facility] Last Admin: 08/18/19 11:07 Dose: Not Given Documented by: Olanzapine (Zyprexa) 10 mg PO BEDTIME [facility] Last Admin: 08/16/19 21:19 Dose: Not Given Documented by: Olanzapine (Zyprexa) 10 mg IM BEDTIME [facility] Last Admin: 08/18/19 20:10 Dose: 10 mg Documented by: Ondansetron HCl (Zofran) 4 mg IV Q4H PRN PRN Reason: Nausea/Vomiting Last Admin: 08/15/19 23:53 Dose: 4 mg Documented by: Pantoprazole Sodium (Protonix Iv) 40 mg IVPUSH Q12H [facility] Last Admin: 08/19/19 06:24 Dose: 40 mg Documented by: Simvastatin (Zocor) 20 mg PO DAILY [facility] Last Admin: 08/18/19 11:08 Dose: Not Given Documented by: Sodium Chloride (Saline Flush) 10 ml FLUSH ASDIRECTED PRN PRN Reason: Keep Vein Open Last Admin: 08/18/19 12:56 Dose: 10 ml Documented by: Sucralfate (Carafate) 1 gm PO QID [facility] Last Admin: 08/18/19 20:10 Dose: 1 gm Documented by: Thiamine HCl (Vitamin B-1) 100 mg IVPUSH DAILY [facility] Last Admin: 08/18/19 11:17 Dose: 100 mg Documented by: Discontinued Medications Al Hydroxide/Mg Hydroxide (Mag-Al Plus) 30 ml PO ONETIME ONE Stop: 08/16/19 01:08 Last Admin: 08/16/19 01:25 Dose: 30 ml Documented by: Calcium Carbonate/Glycine (Tums) 1,000 mg PO ONETIME ONE Stop: 08/15/19 16:43 Last Admin: 08/15/19 17:13 Dose: 1,000 mg Documented by: Calcium Carbonate/Glycine (Tums) 1,000 mg PO Q2HR PRN PRN Reason: Indigestion Chlordiazepoxide HCl (Librium) 75 mg PO ONETIME ONE Stop: 08/16/19 09:42 Last Admin: 08/16/19 09:45 Dose: 75 mg Documented by: Chlordiazepoxide HCl (Librium) 0 mg PO Q1H PRN; Protocol PRN Reason: Withdrawal Symptoms Chlordiazepoxide HCl (Librium) 50 mg PO Q4H [facility] Stop: 08/17/19 13:31 Last Admin: 08/17/19 14:27 Dose: Not Given Documented by: Chlordiazepoxide HCl (Librium) 50 mg PO Q6H [facility] Stop: 08/18/19 11:31 Chlordiazepoxide HCl (Librium) 25 mg PO Q4H [facility] Stop: 08/19/19 13:31 Chlordiazepoxide HCl (Librium) 25 mg PO Q6H [facility] Stop: 08/20/19 11:31 Dextrose/Water (Dextrose 50% In Water) 25 ml IVPUSH ASDIRECTED ONE Stop: 08/18/19 13:43 Last Admin: 08/18/19 13:59 Dose: 25 ml Documented by: Diazepam (Valium) 10 mg IVPUSH ONETIME ONE Stop: 08/15/19 16:15 Last Admin: 08/15/19 16:36 Dose: 10 mg Documented by: Diazepam (Valium) 5 - 10 mg IVPUSH Q1H PRN PRN Reason: Withdrawal Symptoms Last Admin: 08/16/19 23:15 Dose: 10 mg Documented by: Diphenhydramine HCl (Benadryl) 50 mg IVPUSH Q6H [facility] Last Admin: 08/16/19 23:04 Dose: 50 mg Documented by: Diphenhydramine HCl (Benadryl) 50 mg IVPUSH Q6H PRN PRN Reason: Itching Last Admin: 08/17/19 20:45 Dose: 50 mg Documented by: Enoxaparin Sodium (Lovenox) 40 mg SUBCUT DAILY [facility] Last Admin: 08/16/19 08:34 Dose: 40 mg Documented by: Folic Acid (Folic Acid) 1 mg PO BEDTIME [facility] Last Admin: 08/17/19 20:28 Dose: Not Given Documented by: Folic Acid (Folic Acid) 1 mg PO DAILY [facility] Last Admin: 08/18/19 11:09 Dose: Not Given Documented by: Furosemide (Lasix) 20 mg IVPUSH NOW ONE Stop: 08/16/19 23:15 Last Admin: 08/16/19 23:26 Dose: 20 mg Documented by: Haloperidol Lactate (Haldol) 5 mg IVPUSH ONETIME ONE Stop: 08/16/19 09:42 Last Admin: 08/16/19 09:45 Dose: 5 mg Documented by: Haloperidol Lactate (Haldol) 5 mg IM ONETIME ONE Stop: 08/16/19 12:48 Last Admin: 08/16/19 12:52 Dose: 5 mg Documented by: Haloperidol Lactate (Haldol) 0 mg IVPUSH ASDIRECTED ONE Stop: 08/19/19 07:50 Last Admin: 08/19/19 08:17 Dose: 5 mg Documented by: Sodium Chloride (Normal Saline) 1,000 mls @ 1,000 mls/hr IV .BOLUS [facility] Last Admin: 08/15/19 13:42 Dose: 1,000 mls/hr Documented by: Magnesium Sulfate/Dextrose 1 (gm/ Premix) 100 mls @ 100 mls/hr IV Q1H [facility] Stop: 08/15/19 18:29 Last Admin: 08/15/19 18:08 Dose: 100 mls/hr Documented by: Potassium Chloride/Dextrose/Sod Cl (D5 1/2 Ns W/ 20 Meq/L Kcl) 1,000 mls @ 100 mls/hr IV ASDIRECTED [facility] Last Admin: 08/18/19 07:24 Dose: 100 mls/hr Documented by: Magnesium Sulfate 2 gm/ Premix 50 mls @ 25 mls/hr IV ONETIME ONE Stop: 08/15/19 23:31 Last Admin: 08/15/19 22:36 Dose: Not Given Documented by: Sodium Chloride (Normal Saline) 1,000 mls @ 999 mls/hr IV ONETIME ONE Stop: 08/16/19 16:03 Last Admin: 08/16/19 15:12 Dose: 999 mls/hr Documented by: Sodium Chloride (Normal Saline) 250 mls @ 250 mls/hr IV .BOLUS ONE Stop: 08/16/19 21:59 Last Admin: 08/16/19 21:15 Dose: 250 mls/hr Documented by: Sodium Chloride (Normal Saline) Confirm Administered Dose 1,000 mls @ as directed .ROUTE .STK-MED ONE Stop: 08/16/19 20:37 Last Admin: 08/16/19 21:16 Dose: Not Given Documented by: Sodium Chloride (Normal Saline) Confirm Administered Dose 250 mls @ as directed .ROUTE .STK-MED ONE Stop: 08/16/19 20:38 Last Admin: 08/16/19 21:16 Dose: Not Given Documented by: Pantoprazole Sodium 80 mg/ (Sodium Chloride) 100 mls @ 10 mls/hr IV Q10H [facility] Last Admin: 08/18/19 13:59 Dose: 10 mls/hr Documented by: Magnesium Sulfate 2 gm/ Premix 50 mls @ 25 mls/hr IV ONETIME ONE Stop: 08/16/19 23:59 Last Admin: 08/16/19 22:25 Dose: 25 mls/hr Documented by: Sodium Phosphate 30 mmole/ (Sodium Chloride) 260 mls @ 86.667 mls/hr IV ONETIME ONE Stop: 08/16/19 22:31 Last Admin: 08/16/19 22:34 Dose: 86.667 mls/hr Documented by: Magnesium Sulfate 2 gm/ Premix 50 mls @ 25 mls/hr IV ONETIME ONE Stop: 08/17/19 10:00 Last Admin: 08/17/19 08:55 Dose: 25 mls/hr Documented by: Potassium Chloride 10 meq/ (Premix) 100 mls @ 100 mls/hr IV Q1H [facility] Stop: 08/17/19 10:14 Last Admin: 08/17/19 09:56 Dose: 100 mls/hr Documented by: Lactated Ringer's (Ringers, Lactated) 1,000 mls @ 999 mls/hr IV .BOLUS ONE Stop: 08/17/19 12:02 Last Admin: 08/17/19 11:05 Dose: 999 mls/hr Documented by: Lactated Ringer's (Ringers, Lactated) Confirm Administered Dose 1,000 mls @ as directed .ROUTE .STK-MED ONE Stop: 08/17/19 11:05 Last Admin: 08/17/19 11:47 Dose: Not Given Documented by: Sodium Chloride (Normal Saline) 250 mls @ 100 mls/hr IV ASDIRECTED [facility] Stop: 08/19/19 00:59 Last Admin: 08/18/19 01:16 Dose: 100 mls/hr Documented by: Sodium Phosphate 30 mmole/ (Sodium Chloride) 260 mls @ 86.667 mls/hr IV ONETIME ONE Stop: 08/18/19 08:31 Last Admin: 08/18/19 09:39 Dose: 86.667 mls/hr Documented by: Magnesium Sulfate 4 gm/ Premix 50 mls @ 12.5 mls/hr IV ONETIME ONE Stop: 08/18/19 12:18 Last Admin: 08/18/19 08:50 Dose: 12.5 mls/hr Documented by: Sodium Chloride (Normal Saline) 100 mls @ 60 mls/hr IV ASDIRECTED [facility] Stop: 08/18/19 16:00 Last Admin: 08/18/19 12:56 Dose: 60 mls/hr Documented by: Iopamidol (Isovue-370 (76%)) 100 ml IVPUSH ONETIME ONE Stop: 08/18/19 12:19 Last Admin: 08/18/19 12:38 Dose: 100 ml Documented by: Lorazepam (Ativan) 1 mg IVPUSH ONETIME ONE Stop: 08/15/19 13:22 Last Admin: 08/15/19 13:42 Dose: 1 mg Documented by: Metoprolol Tartrate (Lopressor) 5 mg IVPUSH ONETIME ONE Stop: 08/16/19 12:29 Last Admin: 08/16/19 13:00 Dose: 5 mg Documented by: Non-Formulary Medication (Potassium Chloride [Potassium Chloride]) 20 meq PO DAILY [facility] Ondansetron HCl (Zofran) 4 mg IVPUSH ONETIME ONE Stop: 08/15/19 13:13 Last Admin: 08/15/19 13:43 Dose: 4 mg Documented by: Pantoprazole Sodium (Protonix) 40 mg PO ACBREAKFAST [facility] Pantoprazole Sodium (Protonix Iv) 40 mg IVPUSH Q12H [facility] Last Admin: 08/17/19 05:36 Dose: Not Given Documented by: Pantoprazole Sodium (Protonix Iv) 40 mg IVPUSH ONETIME ONE Stop: 08/16/19 21:18 Last Admin: 08/16/19 23:10 Dose: 40 mg Documented by: Potassium Chloride (Klor-Con M20) 20 meq PO BID [facility] Last Admin: 08/16/19 08:31 Dose: 20 meq Documented by: Sodium Chloride (Saline Flush) 10 ml FLUSH ONETIME ONE Stop: 08/18/19 12:19 Last Admin: 08/18/19 12:38 Dose: 10 ml Documented by: Thiamine HCl (Vitamin B-1) 100 mg IVPUSH ONETIME ONE Stop: 08/15/19 13:15 Last Admin: 08/15/19 13:45 Dose: 100 mg Documented by: Thiamine HCl (Vitamin B-1) 100 mg IVPUSH ONETIME ONE Stop: 08/15/19 21:01 Last Admin: 08/15/19 20:01 Dose: 100 mg Documented by: Thiamine HCl (Vitamin B-1) 100 mg PO DAILY [facility] Last Admin: 08/18/19 11:10 Dose: Not Given Documented by: Thiamine HCl (Vitamin B-1) 100 mg PO BEDTIME [facility] Last Admin: 08/17/19 20:29 Dose: Not Given Documented by: - Exam Quality Assessment: Supplemental Oxygen General: Alert Lungs: Normal Respiratory Effort Cardiovascular: Tachycardia GI/Abdominal Exam: Soft, Non-Tender, No Distention Sepsis Event Note - Evaluation Sepsis Screening Result: Severe Sepsis Risk - Focused Exam Vital Signs: Vital Signs Temp Pulse Resp BP Pulse Ox 08/19/19 07:59 37.0 C 105 H 28 H 103/55 L 08/19/19 04:00 36.7 C 26 H 127/74 93 L 08/18/19 23:31 26 H 103/90 99 Date Exam was Performed: 08/19/19 Time Exam was Performed: 09:18 Consult PN Assessment/Plan Procedures: Procedures AIRWAY INHALATION TREATMENT (08/19/13) ANALGESICS NON-OPIOID 1 OR 2 (12/15/18) ASSAY OF ETHANOL (08/19/13) ASSAY OF LACTIC ACID (05/24/16) ASSAY OF LIPASE (05/24/16) ASSAY OF MAGNESIUM (06/19/19) ASSAY OF NATRIURETIC PEPTIDE (12/30/18) ASSAY OF PHOSPHORUS (03/11/19) ASSAY OF TROPONIN QUANT (08/19/13) ASSAY THYROID STIM HORMONE (05/27/16) C-REACTIVE PROTEIN (12/30/18) CHEST X-RAY 1 VIEW FRONTAL (08/04/16) CHEST X-RAY 2VW FRONTAL&LATL (08/19/13) COMPLETE CBC AUTOMATED (03/11/19) COMPLETE CBC W/AUTO DIFF WBC (06/19/19) COMPREHEN METABOLIC PANEL (06/19/19) CREATINE MB FRACTION (08/19/13) CT HEAD/BRAIN W/O DYE (05/24/16) CT NECK SPINE W/O DYE (06/26/15) CULTURE OTHR SPECIMN AEROBIC (08/19/13) DRUG SCREEN QUANTALCOHOLS (04/01/19) DRUG TEST PRSMV CHEM ANLYZR (06/19/19) DRUG TEST PRSMV INSTRMNT (04/01/19) DX MAMMO INCL CAD UNI (07/04/17) DXA BONE DENSITY AXIAL (01/02/16) ELECTROCARDIOGRAM TRACING (12/15/18) EMERGENCY DEPT VISIT (06/19/19) EMERGENCY DEPT VISIT (03/10/19) EMERGENCY DEPT VISIT (02/26/19) EMERGENCY DEPT VISIT (05/27/16) EMERGENCY DEPT VISIT (05/24/16) EMERGENCY DEPT VISIT (07/01/15) EMERGENCY DEPT VISIT (06/26/15) EMERGENCY DEPT VISIT (06/24/14) EMERGENCY DEPT VISIT (08/19/13) EVALUATE PT USE OF INHALER (08/19/13) HYDRATE IV INFUSION ADD-ON (04/01/19) HYDRATION IV INFUSION INIT (12/28/18) IMMUNIZATION ADMIN (05/24/16) INFLUENZA ASSAY W/OPTIC (04/01/19) INJECTION FOR SHOULDER X-RAY (11/21/16) MEASURE BLOOD OXYGEN LEVEL (08/19/13) METABOLIC PANEL TOTAL CA (03/11/19) MRI JOINT UPR EXTREM W/DYE (11/21/16) NEEDLE LOCALIZATION BY XRAY (11/21/16) PROTHROMBIN TIME (06/19/19) PT EVALUATION (08/19/13) ROUTINE VENIPUNCTURE (06/19/19) RPR F/E/E/N/L/M 2.5 CM/< (06/24/14) RPR F/E/E/N/L/M 2.6-5.0 CM (05/24/16) SCR MAMMO BI INCL CAD (06/14/17) SMEAR GRAM STAIN (08/19/13) THER/PROPH/DIAG INJ IV PUSH (02/26/19) THER/PROPH/DIAG IV INF ADDON (04/01/19) THER/PROPH/DIAG IV INF INIT (04/01/19) THROMBOPLASTIN TIME PARTIAL (02/26/19) TISSUE EXAM BY PATHOLOGIST (10/06/13) TX/PRO/DX INJ NEW DRUG ADDON (04/01/19) TX/PRO/DX INJ SAME DRUG 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 (04/01/19) ULTRASOUND BREAST LIMITED (07/04/17) URINALYSIS AUTO W/O SCOPE (12/15/18) URINALYSIS AUTO W/SCOPE (04/01/19) X-RAY EXAM OF NECK (08/04/16) (1) Upper GI bleed SNOMED Code(s): 93622711 Code(s): K92.2 - GASTROINTESTINAL HEMORRHAGE, UNSPECIFIED Current Visit: Yes (2) Alcohol withdrawal syndrome SNOMED Code(s): 645129001 Code(s): F10.239 - ALCOHOL DEPENDENCE WITH WITHDRAWAL, UNSPECIFIED Priority: High Current Visit: Yes Qualifiers: Complication of substance-induced condition: uncomplicated Qualified Code(s): F10.230 - Alcohol dependence with withdrawal, uncomplicated Problem List Initiated/Reviewed/Updated: Yes Plan: 63 y/o lady with UGIB. recent endoscopy done with findings of ulcerative esophagitis. Hg stalbe - continue supportive measures. monitor melena. May advance diet as tolerated - protonix therapy - H. pylori testing - continue ETOH withdrawal protocol - medical management per primary Likely rebleeding of the esophagus given very recent EGD done for same symptoms. Pt was not stable for OR from withdrawal symptoms, now with concern for pneumonia. High risk for anesthesia, only appropriate if emergent for bleeding not controlled with resuscitation. Bleeding appears stabilized. No plan for EGD on admission due the above factors. Radha Adams MD General surgery
--- NOTE | 2019-08-19 09:30 | PCM.PRNOTE ---
- Free Text/Narrative Note: Central Venous Catheter Placement Date: 08/19/2019 Time: 8:50AM Indication: Hypovolemia with blood loss and need for IV access for which femoral catheter was placed on 08/15 today Attending: Clara Parada MD A time-out was completed verifying correct patient, procedure, site, positioning, and special equipment if applicable. The patient was placed in a dependent position appropriate for central line placement based on the vein to becannulated. The patients right neck was prepped and draped in sterile fashion. 1%Lidocainewas used to anesthetize the surrounding skin area. A triple lumen 7-FrenchCordiscatheter was introduced into the the internal jugular using the Seldingertechnique and under ultrasound guidance. The catheter was threaded smoothly over the guide wire and appropriate blood return was obtained. Each lumen of the catheter was evacuated of air and flushed with sterile saline. The catheter was then sutured in place to the skin and a sterile dressing a pplied. Perfusion to the extremity distal to the point of catheter insertion was checked and found to be adequate. Estimated Blood Loss: 10mL The patient tolerated the procedure well and there were no complications.
--- NOTE | 2019-08-19 09:32 | PCM.PN ---
- General Info Date of Service: 08/19/19 Subjective Update: INTERVAL HISTORY Overnight Events: - Very restless overnight Vital Signs: MAP trend: 72-94 HR trend: 102-148x' Tmax: 100.1 SatO2: Dropped to 80s on NC/BiPAP I/Os: UO: 2,865 24h balance: -742 Balance since admission: +2,641 BM: today, x2 liquid and black New results: Hb down from 9.9 to 9.3 Plt up from 72 to 85 K down from 4.2 to 3.2 PO4 down from 1.9 to 1.8 Mg up from 1.5 to 1.8 Infectious Disease: Antibiotics: Rocephin day 3 Cultures: blood from yesterday negative Diet: Clear liquids Lines and tubes: Jeffries catheter 08/15/19 Right femoral central line 08/16/19 Rectal tube removed 08/18/19 - Patient Data Vitals - Most Recent: Last Vital Signs Temp 98.6 F 08/19/19 07:59 Pulse 105 H 08/19/19 07:59 Resp 28 H 08/19/19 07:59 BP 103/55 L 08/19/19 07:59 Pulse Ox 93 L 08/19/19 04:00 Weight - Most Recent: 56.472 kg - Exam General: Cooperative, Mild Distress, Lethargic HEENT: Mucous Membr. Moist/[place] Neck: Supple, Trachea Midline Lungs: Decreased Breath Sounds, Crackles, Rhonchi. No: Rales, Rub, Stridor, Wheezing Cardiovascular: Regular Rate, Regular Rhythm. No: Murmurs, Gallops, Rubs GI/Abdominal Exam: Normal Bowel Sounds, Soft, Tender. No: Distended, Guarding, Rigid, Rebound Extremities: Normal Inspection, Slow Capillary Refill Peripheral Pulses: 2+: Radial (L), Radial (R), Dorsalis Pedis (L), Dorsalis Pedis (R), 3+: Carotid (L), Carotid (R) Skin: Dry, Cool. No: Intact Sepsis Event Note - Evaluation Sepsis Screening Result: Severe Sepsis Risk - Problem List & Annotations (1) Aspiration pneumonia SNOMED Code(s): 004276523 Code(s): J69.0 - PNEUMONITIS DUE TO INHALATION OF FOOD AND VOMIT Status: Acute Priority: High Current Visit: Yes Qualifiers: Aspiration pneumonia type: due to gastric secretions Laterality: right Lung location: upper lobe of lung Qualified Code(s): J69.0 - Pneumonitis due to inhalation of food and vomit (2) Delirium tremens SNOMED Code(s): 4745405 Code(s): F10.231 - ALCOHOL DEPENDENCE WITH WITHDRAWAL DELIRIUM Status: Acute Priority: High Current Visit: Yes (3) Dysphagia SNOMED Code(s): 90966751, 183850416 Code(s): R13.10 - DYSPHAGIA, UNSPECIFIED Status: Acute Priority: High Current Visit: Yes Qualifiers: Dysphagia type: unspecified Qualified Code(s): R13.10 - Dysphagia, unspecified (4) Alcohol abuse SNOMED Code(s): 09231394 Code(s): F10.10 - ALCOHOL ABUSE, UNCOMPLICATED Status: Chronic Priority: High Current Visit: No (5) Alcohol consumption binge drinking SNOMED Code(s): 381204502 Code(s): F10.10 - ALCOHOL ABUSE, UNCOMPLICATED Status: Chronic Priority: High Current Visit: No (6) Alcohol withdrawal syndrome SNOMED Code(s): 835288485 Code(s): F10.239 - ALCOHOL DEPENDENCE WITH WITHDRAWAL, UNSPECIFIED Status: Acute Priority: High Current Visit: Yes Qualifiers: Complication of substance-induced condition: with delirium Qualified Code(s): F10.231 - Alcohol dependence with withdrawal delirium (7) Anemia SNOMED Code(s): 238664468 Code(s): D64.9 - ANEMIA, UNSPECIFIED Status: Acute Current Visit: No Qualifiers: Anemia type: unspecified type Qualified Code(s): D64.9 - Anemia, unspecified (8) Anxiety disorder SNOMED Code(s): 403078056 Code(s): F41.9 - ANXIETY DISORDER, UNSPECIFIED Status: Acute Current Visit: No Qualifiers: Anxiety disorder type: generalized anxiety disorder Qualified Code(s): F41.1 - Generalized anxiety disorder (9) Bipolar disorder SNOMED Code(s): 71099473 Code(s): F31.9 - BIPOLAR DISORDER, UNSPECIFIED Status: Acute Priority: High Current Visit: No Qualifiers: Active/Remission status: remission status unspecified Qualified Code(s): F31.9 - Bipolar disorder, unspecified (10) Hypertension SNOMED Code(s): 13373690 Code(s): I10 - ESSENTIAL (PRIMARY) HYPERTENSION Status: Acute Current Visit: No Qualifiers: Hypertension type: essential hypertension Qualified Code(s): I10 - Essential (primary) hypertension (11) Hypoalbuminemia SNOMED Code(s): 937396876 Code(s): E88.09 - OTH DISORDERS OF PLASMA-PROTEIN METABOLISM, NEC Status: Acute Current Visit: No (12) Hypocalcemia SNOMED Code(s): 2820585 Code(s): E83.51 - HYPOCALCEMIA Status: Acute Priority: High Current Visit: Yes (13) Hypokalemia SNOMED Code(s): 26753478 Code(s): E87.6 - HYPOKALEMIA Status: Acute Priority: High Current Visit: No (14) Hypomagnesemia SNOMED Code(s): 651245457 Code(s): E83.42 - HYPOMAGNESEMIA Status: Acute Priority: High Current Visit: Yes (15) Lymphadenopathy, mediastinal SNOMED Code(s): 85631041 Code(s): R59.0 - LOCALIZED ENLARGED LYMPH NODES Status: Acute Current Visit: Yes (16) Major depressive disorder SNOMED Code(s): 231341541 Code(s): F32.9 - MAJOR DEPRESSIVE DISORDER, SINGLE EPISODE, UNSPECIFIED Status: Chronic Priority: Medium Current Visit: No Qualifiers: Major depression recurrence: unspecified whether recurrent Active/Remission status: currently active Major depression episode severity: unspecified Qualified Code(s): F32.9 - Major depressive disorder, single episode, unspecified (17) Post traumatic stress disorder SNOMED Code(s): 18753483 Code(s): F43.10 - POST-TRAUMATIC STRESS DISORDER, UNSPECIFIED Status: Chronic Priority: Medium Current Visit: No (18) Thrombocytopenia SNOMED Code(s): 690239677 Code(s): D69.6 - THROMBOCYTOPENIA, UNSPECIFIED Status: Acute Priority: High Current Visit: No (19) Upper GI bleed SNOMED Code(s): 64069854 Code(s): K92.2 - GASTROINTESTINAL HEMORRHAGE, UNSPECIFIED Status: Acute Current Visit: Yes - Problem List Review Problem List Initiated/Reviewed/Updated: Yes - Assessment Assessment:: ASSESSMENT August 15, 2019 - Patient found unresponsive by family member, mother - Last alcoholic beverage 24 hours prior to presentation to emergency department - Tremulous and anxious on presentation to the emergency department - Drinking 5-6 shots size bottles a day - Failed multiple inpatient and outpatient alcohol rehab programs - Hypocalcemia corrected with albumin remains low - PTH ordered August 16, 2019 - Worsening withdrawal symptoms, CIWAA >15 - Hypocalcemia resolved with resolution of hypomagnesemia: Corrected calcium 8.8 - Potassium slightly decreased at 3.2 - Albumin still low at 3.1 - Vitamin D 20 - Magnesium corrected at 2.1 August 17, 2019 - Severe alcohol withdrawal with altered mental status and confusion - Patient requiring large doses of diazepam - Required 2 doses of Haldol for withdrawal symptoms - Continues to be tachycardic and tachypneic even after volume resuscitation likely secondary to alcohol withdrawal - Large black stools today - Hemoglobin dropped 5 g over 13 hours - Given 2 units packed red blood cells - Hemoglobin this morning 10.3 and a repeat of 9.5 - Started on Protonix drip - Has history of ulcerative esophagitis on EGD 3 weeks ago - History of colonic polypectomy 3 weeks ago - Continues to be tachycardic and tachypneic but both have improved overnight. - Blood pressure is stable with map greater than 65 - N.p.o. - Chest x-ray consistent with patchy areas of increased density bilaterally. - Low-grade fever overnight of 100.7 while getting blood transfusion - Requiring 1 to 2 L FiO2 - Large amounts of copious secretions requiring suctioning - Possibly secondary to aspiration. Patient has had altered mental status secondary to alcohol withdrawal - Started on Rocephin - Blood cultures drawn August 18, 2019 - Severe alcohol withdrawal - CIWAA's continue to be 15, but requiring less diazepam. - Continues to be confused and hallucinating - Tachycardia and tachypnea have improved - GI bleed - Hemoglobin decreased to 8.1 requiring 2 more units of packed red blood cells. - Patient had significant melena until mid afternoon. - Hemoglobin stabilized at around 9.7 and 9.9 - Started on liquid diet late evening. - CTA shows thickening of the esophageal wall. - Dr. Whatley in surgery following closely. Patient is not stable at this time to proceed with upper endoscopy. - PT 10.7, PTT increased to 60, normal fibrinogen and fibrin degradation products, d-dimer 2.32. - Elevated D dimer - CT of the chest shows patchy areas of increased density within the right upper lung and right middle lobe raising the possibility of pneumonia - CTA was performed showing negative pulmonary embolism - Labs - Corrected calcium 8.6 - Waiting PTH - Phosphorus 1.9 - Magnesium 1.5 - Plan Plan:: Neurology Continue CIWAA protocol Lorazepam as per CIWAA score Thiamine and Folic acid Cardiovascular Monitor vital signs in ICU Lopressor if heart rate exceeds 150. MAP goal greater than 65 Respiratory Aspiration precautions Regular suctioning and oral care as needed FiO2 to keep SPO2 greater than 92 but less than 96% Discontinue Rocephin and start Unasyn to broaden coverage Start Hyoscyamine Swallow evaluation by speech once more coherent and cooperative Gastrointestinal and Nutrition: Vasquez water protocol diet Dr. Whatley considering EGD if she stabilizes, if not she will request her to follow-up as an outpatient Continue to monitor Hb if melanous BMs continue Continue Protonix IV Kidney and Electrolytes: Strict I's and O's Daily weights Monitor electrolytes and replace as needed Replace K, PO4 and Mg Infectious disease: Sputum culture today if possible Procalcitonin today and every 48h Discontinue Rocephin Start Unasyn F/U blood cultures Trend temperature and panculture if febrile Hematology/Coagulation: Dr. Whatley and surgery following Continue Protonix Trend hemoglobin Goal Hb >7 PROPHYLAXIS DVT- Compression stockings, pharmacologic is contraindicated GI-Protonix IV CODE STATUS: FULL CODE DISPOSITION: Patient will remain in ICU for CIWAA monitorization and treatment. Once more alert will need speech therapy evaluation. Central Line - Central Line Insertion Central Line Indication: IV access Site: internal jugular (R) Prep: CDC/MBT Guidelines, Sterile Drapes, Chlorhexidine Lumen: triple Gauge: 7Fr Local Anesthesia - Lidocaine (Xylocaine): 1% Plain Local Anesthetic Volume: 4cc Ultrasound guided: Yes Guidewire and dilator removed intact: Yes Micropuncture kit used: Yes Secured with suture: Yes Complications: No Post placement confirmation: CXR, all ports aspirated, all ports flushed CXR post-procedure: no pneumothorax, no hemothorax Dressing applied: by provider
[2019-08-19] MEDS: Folic Acid 50 MG/10 ML MDV IV SCH (09:43)
[2019-08-19] MEDS: Thiamine 200 MG/2 ML MDV IVPUSH SCH (09:43)
--- NOTE | 2019-08-19 10:02 | CR ---
Chest: Portable supine view of the chest was obtained. Comparison: Prior chest x-ray of 08/17/19. Right sided jugular line is seen. Tip lies near the junction of the right atrial and superior vena cava. Heart size and mediastinum are normal. Haziness is noted within the right upper lung which appears slightly improved from prior chest x-ray. Lungs otherwise are clear. Prior right shoulder surgery and left shoulder surgery is noted. No acute osseous finding is seen. Impression: 1. Right jugular line with tip lying at the right atrial and superior vena cava junction. 2. Parenchymal density seen previously within the right upper chest show improvement. 3. Other findings believed to be incidental. Diagnostic code #3 This report was dictated in MDT
[2019-08-19] MEDS ORDERED: Magnesium Sulfate/Water 2 GM in Premix Bag 1 BAG IV ONE ×2 (10:30→14:00)
[2019-08-19] MEDS ORDERED: Hyoscyamine 0.125 MG Tab.SL SL PRN (10:31)
[2019-08-19] MEDS: cefTRIAXone 2 GM in Sodium Chloride 0.9% 100 ML IV SCH (11:07)
[2019-08-19] MEDS: Ampicillin/Sulbactam Na 3 GM in Sodium Chloride 0.9% 100 ML IV SCH ×3 (11:07→22:25)
[2019-08-19] MEDS: Sucralfate 1 GM Tab PO SCH ×4 (11:31→22:04)
[2019-08-19] MEDS: Losartan 25 MG Tab PO SCH (11:32)
[2019-08-19] MEDS: Magnesium Oxide 400 MG Tab PO SCH ×2 (11:32→22:04)
[2019-08-19] MEDS: Cholecalciferol (Vitamin D3) 5,000 UNIT Tab PO SCH (11:33)
[2019-08-19] MEDS: Naltrexone 50 MG Tab PO SCH (11:33)
[2019-08-19] MEDS: Simvastatin 20 MG Tab PO SCH (11:44)
[2019-08-19] MEDS: Potassium Chloride 10 MEQ in Premix Bag 1 BAG IV SCH ×4 (11:53→12:58)
[2019-08-19] MEDS ORDERED: Potassium Phosphates 60 MMOLE in Sodium Chloride 0.9% 1,000 ML IV ONE (12:30)
[2019-08-19] MEDS ORDERED: chlordiazePOXIDE 25 MG Cap PO SCH (17:30)
[2019-08-19] MEDS: OLANZapine 10 MG Vial IM SCH (20:04)
[2019-08-19] MEDS: Mirtazapine 15 MG Tab PO SCH (22:04)
[2019-08-19] MEDS: Montelukast 10 MG Tab PO SCH (22:04)
[2019-08-20] MEDS: 50% Dextrose in Water 50 ML Syringe IVPUSH PRN ×2 (00:17→18:32)
[2019-08-20] MEDS: LORazepam 2 MG/ML SDV IVPUSH SCH ×6 (02:20→21:49)
[2019-08-20] MEDS: Ampicillin/Sulbactam Na 3 GM in Sodium Chloride 0.9% 100 ML IV SCH ×4 (05:03→23:13)
[2019-08-20] MEDS: Pantoprazole 40 MG Vial IVPUSH SCH ×2 (05:03→17:19)
[2019-08-20] MEDS: Calcium Carbonate/Vitamin D3 600 MG-200 Units Tab PO SCH ×3 (06:51→16:45)
[2019-08-20] MEDS: Thiamine 200 MG/2 ML MDV IVPUSH SCH (08:13)
[2019-08-20] MEDS: Sucralfate 1 GM Tab PO SCH ×4 (08:15→20:47)
[2019-08-20] MEDS: Magnesium Oxide 400 MG Tab PO SCH ×2 (08:16→20:47)
[2019-08-20] MEDS: Naltrexone 50 MG Tab PO SCH (08:16)
[2019-08-20] MEDS: Cholecalciferol (Vitamin D3) 5,000 UNIT Tab PO SCH (08:16)
[2019-08-20] MEDS: Simvastatin 20 MG Tab PO SCH (08:16)
[2019-08-20] MEDS: Losartan 25 MG Tab PO SCH (08:22)
[2019-08-20] MEDS: Folic Acid 50 MG/10 ML MDV IV SCH (08:22)
[2019-08-20] MEDS ORDERED: Ampicillin/Sulbactam Na 3 GM Vial ONE (10:10)
[2019-08-20] MEDS ORDERED: Lactated Ringers 1,000 ML IV SCH (13:45)
[2019-08-20] MEDS ORDERED: Dextrose 5%-Lactated Ringers 1,000 ML IV SCH (18:30)
--- NOTE | 2019-08-20 18:44 | PCM.PN ---
- General Info Date of Service: 08/20/19 Subjective Update: INTERVAL HISTORY Overnight Events: - Very restless overnight - Continues to hallucinate - Unable to have a conversation because she starts hallucinating in the middle of it Vital Signs: MAP trend: 71-91 HR trend: 86-112x' Tmax: 98.9 SatO2: >94% I/Os: UO: 1,195 24h balance: -891 Balance since admission: +2,987 Rectal tube output: 450 New results: Hb up from 8.8 to 9.7 Plt up from 85 to 105 K up from 3.2 to 3.7 PO4 remains at 1.8 Mg up from 1.8 to 2 Infectious Disease: Antibiotics: Unasyn day 2, antibiotic day 4 Cultures: blood NGTD Procalcitonin yesterday high Diet: Clear liquids Lines and tubes: Jeffries catheter 08/15/19 Right femoral central line 08/16/19- 08/19/19 Right internal jugular central line 08/19/19 Rectal tube replaced 08/18 - Patient Data Vitals - Most Recent: Last Vital Signs Temp 98.3 F 08/20/19 15:54 Pulse 105 H 08/19/19 07:59 Resp 22 H 08/20/19 15:54 BP 107/69 08/20/19 15:54 Pulse Ox 100 08/20/19 15:54 Weight - Most Recent: 56.472 kg - Exam General: Sedated Neck: Supple, Trachea Midline, No JVD, No Thyromegaly, +2 Carotid Pulse wo Bruit Lungs: Decreased Breath Sounds, Crackles, Rales. No: Rhonchi, Rub, Stridor, Wheezing Cardiovascular: Regular Rhythm, Tachycardia. No: Murmurs, Gallops, Rubs GI/Abdominal Exam: Normal Bowel Sounds, Soft, Distended Extremities: Normal Inspection, No Pedal Edema, Slow Capillary Refill Peripheral Pulses: 2+: Brachial (L), Brachial (R), Dorsalis Pedis (L), Dorsalis Pedis (R) Skin: Intact, Cool, Moist Sepsis Event Note - Evaluation Sepsis Screening Result: Severe Sepsis Risk - Problem List & Annotations (1) Aspiration pneumonia SNOMED Code(s): 265067672 Code(s): J69.0 - PNEUMONITIS DUE TO INHALATION OF FOOD AND VOMIT Status: Acute Priority: High Current Visit: Yes Qualifiers: Aspiration pneumonia type: due to gastric secretions Laterality: right Lung location: upper lobe of lung Qualified Code(s): J69.0 - Pneumonitis due to inhalation of food and vomit (2) Delirium tremens SNOMED Code(s): 2333765 Code(s): F10.231 - ALCOHOL DEPENDENCE WITH WITHDRAWAL DELIRIUM Status: Acute Priority: High Current Visit: Yes (3) Dysphagia SNOMED Code(s): 23121936, 515220105 Code(s): R13.10 - DYSPHAGIA, UNSPECIFIED Status: Acute Priority: High Current Visit: Yes Qualifiers: Dysphagia type: unspecified Qualified Code(s): R13.10 - Dysphagia, unspecified (4) Alcohol abuse SNOMED Code(s): 07533318 Code(s): F10.10 - ALCOHOL ABUSE, UNCOMPLICATED Status: Chronic Priority: High Current Visit: No (5) Alcohol consumption binge drinking SNOMED Code(s): 333714638 Code(s): F10.10 - ALCOHOL ABUSE, UNCOMPLICATED Status: Chronic Priority: High Current Visit: No (6) Alcohol withdrawal syndrome SNOMED Code(s): 670516999 Code(s): F10.239 - ALCOHOL DEPENDENCE WITH WITHDRAWAL, UNSPECIFIED Status: Acute Priority: High Current Visit: Yes Qualifiers: Complication of substance-induced condition: with delirium Qualified Code(s): F10.231 - Alcohol dependence with withdrawal delirium (7) Anemia SNOMED Code(s): 961419231 Code(s): D64.9 - ANEMIA, UNSPECIFIED Status: Acute Current Visit: No Qualifiers: Anemia type: unspecified type Qualified Code(s): D64.9 - Anemia, unspecified (8) Anxiety disorder SNOMED Code(s): 274630681 Code(s): F41.9 - ANXIETY DISORDER, UNSPECIFIED Status: Acute Current Visit: No Qualifiers: Anxiety disorder type: generalized anxiety disorder Qualified Code(s): F41.1 - Generalized anxiety disorder (9) Bipolar disorder SNOMED Code(s): 75878413 Code(s): F31.9 - BIPOLAR DISORDER, UNSPECIFIED Status: Acute Priority: High Current Visit: No Qualifiers: Active/Remission status: remission status unspecified Qualified Code(s): F31.9 - Bipolar disorder, unspecified (10) Hypertension SNOMED Code(s): 49228702 Code(s): I10 - ESSENTIAL (PRIMARY) HYPERTENSION Status: Acute Current Visit: No Qualifiers: Hypertension type: essential hypertension Qualified Code(s): I10 - Essential (primary) hypertension (11) Hypoalbuminemia SNOMED Code(s): 977893076 Code(s): E88.09 - OTH DISORDERS OF PLASMA-PROTEIN METABOLISM, NEC Status: Acute Current Visit: No (12) Hypocalcemia SNOMED Code(s): 5260133 Code(s): E83.51 - HYPOCALCEMIA Status: Acute Priority: High Current Vi sit: Yes (13) Hypokalemia SNOMED Code(s): 63936400 Code(s): E87.6 - HYPOKALEMIA Status: Acute Priority: High Current Visit: No (14) Hypomagnesemia SNOMED Code(s): 587363773 Code(s): E83.42 - HYPOMAGNESEMIA Status: Acute Priority: High Current Visit: Yes (15) Lymphadenopathy, mediastinal SNOMED Code(s): 63291164 Code(s): R59.0 - LOCALIZED ENLARGED LYMPH NODES Status: Acute Current Visit: Yes (16) Major depressive disorder SNOMED Code(s): 712858788 Code(s): F32.9 - MAJOR DEPRESSIVE DISORDER, SINGLE EPISODE, UNSPECIFIED Status: Chronic Priority: Medium Current Visit: No Qualifiers: Major depression recurrence: unspecified whether recurrent Active/Remission status: currently active Major depression episode severity: unspecified Qualified Code(s): F32.9 - Major depressive disorder, single episode, unspecified (17) Post traumatic stress disorder SNOMED Code(s): 07798256 Code(s): F43.10 - POST-TRAUMATIC STRESS DISORDER, UNSPECIFIED Status: Chronic Priority: Medium Current Visit: No (18) Thrombocytopenia SNOMED Code(s): 551484758 Code(s): D69.6 - THROMBOCYTOPENIA, UNSPECIFIED Status: Acute Priority: High Current Visit: No (19) Upper GI bleed SNOMED Code(s): 65049540 Code(s): K92.2 - GASTROINTESTINAL HEMORRHAGE, UNSPECIFIED Status: Acute Current Visit: Yes (20) Vitamin D deficiency SNOMED Code(s): 94898232 Code(s): E55.9 - VITAMIN D DEFICIENCY, UNSPECIFIED Status: Acute Current Visit: Yes - Problem List Review Problem List Initiated/Reviewed/Updated: Yes - Assessment Assessment:: August 15, 2019 - Patient found unresponsive by family member, mother - Last alcoholic beverage 24 hours prior to presentation to emergency department - Tremulous and anxious on presentation to the emergency department - Drinking 5-6 shots size bottles a day - Failed multiple inpatient and outpatient alcohol rehab programs - Hypocalcemia corrected with albumin remains low - PTH ordered August 16, 2019 - Worsening withdrawal symptoms, CIWAA >15 - Hypocalcemia resolved with resolution of hypomagnesemia: Corrected calcium 8.8 - Potassium slightly decreased at 3.2 - Albumin still low at 3.1 - Vitamin D 20 - Magnesium corrected at 2.1 August 17, 2019 - Severe alcohol withdrawal with altered mental status and confusion - Patient requiring large doses of diazepam - Required 2 doses of Haldol for withdrawal symptoms - Continues to be tachycardic and tachypneic even after volume resuscitation likely secondary to alcohol withdrawal - Large black stools today - Hemoglobin dropped 5 g over 13 hours - Given 2 units packed red blood cells - Hemoglobin this morning 10.3 and a repeat of 9.5 - Started on Protonix drip - Has history of ulcerative esophagitis on EGD 3 weeks ago - History of colonic polypectomy 3 weeks ago - Continues to be tachycardic and tachypneic but both have improved overnight. - Blood pressure is stable with map greater than 65 - N.p.o. - Chest x-ray consistent with patchy areas of increased density bilaterally. - Low-grade fever overnight of 100.7 while getting blood transfusion - Requiring 1 to 2 L FiO2 - Large amounts of copious secretions requiring suctioning - Possibly secondary to aspiration. Patient has had altered mental status secondary to alcohol withdrawal - Started on Rocephin - Blood cultures drawn August 18, 2019 - Severe alcohol withdrawal - CIWAA's continue to be 15, but requiring less diazepam. - Continues to be confused and hallucinating - Tachycardia and tachypnea have improved - GI bleed - Hemoglobin decreased to 8.1 requiring 2 more units of packed red blood ce lls. - Patient had significant melena until mid afternoon. - Hemoglobin stabilized at around 9.7 and 9.9 - Started on liquid diet late evening. - CTA shows thickening of the esophageal wall. - Dr. Whatley in surgery following closely. Patient is not stable at this time to proceed with upper endoscopy. - PT 10.7, PTT increased to 60, normal fibrinogen and fibrin degradation products, d-dimer 2.32. - Elevated D dimer - CT of the chest shows patchy areas of increased density within the right upper lung and right middle lobe raising the possibility of pneumonia - CTA was performed showing negative pulmonary embolism - Labs - Corrected calcium 8.6 - Waiting PTH - Phosphorus 1.9 - Magnesium 1.5 August 19, 2019 - CIWAA trend from 8-15, still with significant hallucinations - Discontinued Rocephin and started Unasyn - Ordered procalcitonin - PTH is normal with low vitamin D - No longer requiring O2 supplementation - Electrolytes continue to be abnormal, will continue to replace - Still having intermittent tachycardia - Hb stable, platelets improving August 20, 2019 - Hb stabilized, no more melena - Plan Plan:: Neurology Continue CIWAA protocol Lorazepam as per CIWAA score Thiamine and Folic acid Cardiovascular Monitor vital signs in ICU Lopressor if heart rate exceeds 150. MAP goal greater than 65 Respiratory Aspiration precautions Regular suctioning and oral care as needed FiO2 to keep SPO2 greater than 92 but less than 96% Continue Hyoscyamine Swallow evaluation by speech once more coherent and cooperative Gastrointestinal and Nutrition: Vasquez water protocol diet Continue to monitor Hb if melanous BMs continue Continue Protonix IV Kidney and Electrolytes: Strict I's and O's Daily weights Monitor electrolytes and replace as needed Replace K, PO4 and Mg Infectious disease: Sputum culture today if possible Procalcitonin today and every 48h Discontinue Rocephin Start Unasyn PROPHYLAXIS DVT- compression stockings, pharmacological contraindicated due to thrombocytopenia GI- Protonix CODE STATUS: FULL CODE DISPOSITION: Patient will remain admitted in ICU, if there is no significant changes by tomorrow will consult with Marco for possible transfer and or suggestions on management.
[2019-08-20] MEDS: OLANZapine 5 MG Tab PO SCH (20:44)
[2019-08-20] MEDS: Mirtazapine 15 MG Tab PO SCH (20:44)
[2019-08-20] MEDS: Montelukast 10 MG Tab PO SCH (20:45)
[2019-08-21] MEDS: LORazepam 2 MG/ML SDV IVPUSH SCH (02:04)
[2019-08-21] MEDS: Ampicillin/Sulbactam Na 3 GM in Sodium Chloride 0.9% 100 ML IV SCH (05:07)
[2019-08-21] MEDS: Pantoprazole 40 MG Vial IVPUSH SCH (05:36)
[2019-08-21] MEDS: 50% Dextrose in Water 50 ML Syringe IVPUSH PRN (06:25)
[2019-08-21] MEDS: Magnesium Oxide 400 MG Tab PO SCH ×2 (09:15→20:09)
[2019-08-21] MEDS: Losartan 25 MG Tab PO SCH (09:15)
[2019-08-21] MEDS: Naltrexone 50 MG Tab PO SCH (09:15)
[2019-08-21] MEDS: Sucralfate 1 GM Tab PO SCH ×4 (09:15→20:09)
[2019-08-21] MEDS: Simvastatin 20 MG Tab PO SCH (09:15)
[2019-08-21] MEDS: Calcium Carbonate/Vitamin D3 600 MG-200 Units Tab PO SCH ×3 (09:16→17:24)
[2019-08-21] MEDS: Thiamine 200 MG/2 ML MDV IVPUSH SCH (09:16)
[2019-08-21] MEDS: Folic Acid 50 MG/10 ML MDV IV SCH (09:16)
[2019-08-21] MEDS: Cholecalciferol (Vitamin D3) 5,000 UNIT Tab PO SCH (09:16)
[2019-08-21] MEDS ORDERED: Amoxicillin/Clavulanate K 875-125 MG Tab PO SCH (10:30)
[2019-08-21] MEDS ORDERED: Magnesium Sulfate/Water 2 GM in Premix Bag 1 BAG IV ONE (10:45)
[2019-08-21] MEDS ORDERED: Diazepam 5 MG Tab PO SCH (11:00)
[2019-08-21] MEDS: Amoxicillin/Clavulanate K 875-125 MG Tab PO SCH ×2 (11:21→20:09)
[2019-08-21] MEDS: Potassium Chloride 10 MEQ in Premix Bag 1 BAG IV SCH ×4 (11:21→15:20)
[2019-08-21] MEDS: Diazepam 5 MG Tab PO SCH ×2 (11:21→20:09)
[2019-08-21] MEDS ORDERED: Haloperidol Lactate 5 MG/ML SDV IVPUSH ONE (12:26)
[2019-08-21] MEDS ORDERED: Gadobenate Dimeglumine 529 MG/ML 15 ML SDV IVPUSH ONE (13:19)
[2019-08-21] MEDS ORDERED: Sodium Chloride 0.9% 10 ML Syringe FLUSH SCH (13:30)
--- NOTE | 2019-08-21 14:09 | MR ---
MRI brain (without and with intravenous contrast) Technique: T1 sagittal; T2, T1, T2 FLAIR and diffusion axial; T1 weighted coronal; postcontrast T1 axial and coronal images were obtained. Comparison: Prior head CT study of 12/21/18. Findings: Ventricles along with basal cisterns and sulci over the convexities are moderately prominent. Several small areas of increased signal are noted within the periventricular white matter which is most likely due to minimal small vessel ischemic demyelination change. Normal signal void is seen within the major cerebral arteries within the skull base. No acute diffusion abnormalities are seen. No abnormal enhancement is appreciated. Impression: 1. Moderate generalized atrophy. Minimal small vessel ischemic demyelination change as noted above. 2. No additional abnormality is appreciated on MRI study of the brain. Diagnostic code #2 This report was dictated in MDT
[2019-08-21] MEDS ORDERED: Potassium Phosphates 60 MMOLE in Sodium Chloride 0.9% 1,000 ML IV ONE (15:00)
[2019-08-21] MEDS: Pantoprazole 40 MG Tab.CR PO SCH (17:24)
[2019-08-21] MEDS: Mirtazapine 15 MG Tab PO SCH (20:09)
[2019-08-21] MEDS: OLANZapine 5 MG Tab PO SCH (20:09)
[2019-08-21] MEDS: Montelukast 10 MG Tab PO SCH (20:09)
[2019-08-22] MEDS: Diazepam 5 MG Tab PO SCH ×3 (05:11→20:24)
[2019-08-22] MEDS: Pantoprazole 40 MG Tab.CR PO SCH ×2 (05:11→18:06)
[2019-08-22] MEDS: Calcium Carbonate/Vitamin D3 600 MG-200 Units Tab PO SCH ×3 (06:03→18:06)
[2019-08-22] MEDS: Amoxicillin/Clavulanate K 875-125 MG Tab PO SCH ×2 (08:50→20:25)
[2019-08-22] MEDS: Sucralfate 1 GM Tab PO SCH ×4 (08:50→20:25)
[2019-08-22] MEDS: Folic Acid 1 MG Tab PO SCH (08:50)
[2019-08-22] MEDS: Simvastatin 20 MG Tab PO SCH (08:50)
[2019-08-22] MEDS: Cholecalciferol (Vitamin D3) 5,000 UNIT Tab PO SCH (08:50)
[2019-08-22] MEDS: Naltrexone 50 MG Tab PO SCH (08:50)
[2019-08-22] MEDS: Thiamine 100 MG Tab PO SCH (08:50)
[2019-08-22] MEDS: Magnesium Oxide 400 MG Tab PO SCH ×2 (08:50→20:24)
[2019-08-22] MEDS: Losartan 25 MG Tab PO SCH (08:50)
[2019-08-22] MEDS ORDERED: OLANZapine 5 MG Tab PO ONE (12:00)
[2019-08-22] MEDS: OLANZapine 5 MG Tab PO SCH (20:24)
[2019-08-22] MEDS: Mirtazapine 15 MG Tab PO SCH (20:25)
[2019-08-22] MEDS: Montelukast 10 MG Tab PO SCH (20:25)
[2019-08-22] MEDS: Calcium Carbonate 500 MG Tab.Chew PO PRN (22:54)
[2019-08-23] MEDS: Diazepam 5 MG Tab PO SCH ×3 (05:00→21:28)
[2019-08-23] MEDS: Calcium Carbonate/Vitamin D3 600 MG-200 Units Tab PO SCH ×4 (05:11→17:06)
[2019-08-23] MEDS: Pantoprazole 40 MG Tab.CR PO SCH ×2 (05:11→17:06)
[2019-08-23] MEDS: Cholecalciferol (Vitamin D3) 5,000 UNIT Tab PO SCH (09:15)
[2019-08-23] MEDS: Losartan 25 MG Tab PO SCH (09:15)
[2019-08-23] MEDS: Amoxicillin/Clavulanate K 875-125 MG Tab PO SCH ×2 (09:15→21:27)
[2019-08-23] MEDS: Sucralfate 1 GM Tab PO SCH ×4 (09:15→21:28)
[2019-08-23] MEDS: Simvastatin 20 MG Tab PO SCH (09:15)
[2019-08-23] MEDS: Magnesium Oxide 400 MG Tab PO SCH ×2 (09:15→21:27)
[2019-08-23] MEDS: Naltrexone 50 MG Tab PO SCH (09:15)
[2019-08-23] MEDS: Thiamine 100 MG Tab PO SCH (09:15)
[2019-08-23] MEDS: Folic Acid 1 MG Tab PO SCH (09:15)
--- NOTE | 2019-08-23 09:15 | PCM.PN ---
- General Info Date of Service: 08/21/19 Subjective Update: INTERVAL HISTORY Overnight Events: - Unable to stand up - Not following commands - Continues to hallucinate Vital Signs: MAP trend: 68-100 HR trend: 101-105x' Tmax: 98.5 SatO2: >95% I/Os: UO: 1,435 24h balance: -393 Balance since admission: -3,380 New results: K down from 3.7 to 3.4 PO4 down from 1.8 to 1.3 Mg back down to 1.8 Infectious Disease: Antibiotics: Unasyn day 3, antibiotic day 5 Cultures: blood NGTD Procalcitonin 08/18 high Diet: Frassier liquid protocol Lines and tubes: Jeffries catheter 08/15/19 Right femoral central line 08/16/19- 08/19/19 Right internal jugular central line 08/19/19 Rectal tube removed - Patient Data Vitals - Most Recent: Last Vital Signs Temp 98.4 F 08/22/19 21:25 Pulse 129 H 08/22/19 21:25 Resp 16 08/22/19 21:25 BP 118/74 08/22/19 21:25 Pulse Ox 96 08/22/19 21:25 Weight - Most Recent: 55.747 kg - Exam General: Alert, Cooperative, No Acute Distress HEENT: Mucous Membr. Moist/[place] Neck: Supple, Trachea Midline Lungs: Clear to Auscultation, Normal Respiratory Effort. No: Crackles, Rales, Rhonchi, Rub, Stridor, Wheezing Cardiovascular: Regular Rhythm, Tachycardia. No: Murmurs, Gallops, Rubs GI/Abdominal Exam: Normal Bowel Sounds, Soft, Non-Tender, No Organomegaly Extremities: Normal Inspection, Non-Tender, No Pedal Edema, Slow Capillary Refill Peripheral Pulses: 2+: Radial (L), Radial (R), Dorsalis Pedis (L), Dorsalis Pedis (R) Skin: Intact, Cool Sepsis Event Note - Evaluation Sepsis Screening Result: No Definite Risk - Problem List & Annotations (1) Aspiration pneumonia SNOMED Code(s): 785195641 Code(s): J69.0 - PNEUMONITIS DUE TO INHALATION OF FOOD AND VOMIT Status: Acute Priority: High Current Visit: Yes Qualifiers: Aspiration pneumonia type: due to gastric secretions Laterality: right Lung location: upper lobe of lung Qualified Code(s): J69.0 - Pneumonitis due to inhalation of food and vomit (2) Delirium tremens SNOMED Code(s): 3443562 Code(s): F10.231 - ALCOHOL DEPENDENCE WITH WITHDRAWAL DELIRIUM Status: Acute Priority: High Current Visit: Yes (3) Dysphagia SNOMED Code(s): 52023287, 952322827 Code(s): R13.10 - DYSPHAGIA, UNSPECIFIED Status: Acute Priority: High Current Visit: Yes Qualifiers: Dysphagia type: unspecified Qualified Code(s): R13.10 - Dysphagia, unspec ified (4) Alcohol abuse SNOMED Code(s): 69950613 Code(s): F10.10 - ALCOHOL ABUSE, UNCOMPLICATED Status: Chronic Priority: High Current Visit: No (5) Alcohol consumption binge drinking SNOMED Code(s): 092322461 Code(s): F10.10 - ALCOHOL ABUSE, UNCOMPLICATED Status: Chronic Priority: High Current Visit: No (6) Alcohol withdrawal syndrome SNOMED Code(s): 895539558 Code(s): F10.239 - ALCOHOL DEPENDENCE WITH WITHDRAWAL, UNSPECIFIED Status: Acute Priority: High Current Visit: Yes Qualifiers: Complication of substance-induced condition: with delirium Qualified Code(s): F10.231 - Alcohol dependence with withdrawal delirium (7) Anemia SNOMED Code(s): 318050659 Code(s): D64.9 - ANEMIA, UNSPECIFIED Status: Acute Current Visit: No Qualifiers: Anemia type: unspecified type Qualified Code(s): D64.9 - Anemia, unspecified (8) Anxiety disorder SNOMED Code(s): 901975388 Code(s): F41.9 - ANXIETY DISORDER, UNSPECIFIED Status: Acute Current Visit: No Qualifiers: Anxiety disorder type: generalized anxiety disorder Qualified Code(s): F41.1 - Generalized anxiety disorder (9) Bipolar disorder SNOMED Code(s): 89948492 Code(s): F31.9 - BIPOLAR DISORDER, UNSPECIFIED Status: Acute Priority: High Current Visit: No Qualifiers: Active/Remission status: remission status unspecified Qualified Code(s): F31.9 - Bipolar disorder, unspecified (10) Hypertension SNOMED Code(s): 56576415 Code(s): I10 - ESSENTIAL (PRIMARY) HYPERTENSION Status: Acute Current Visit: No Qualifiers: Hypertension type: essential hypertension Qualified Code(s): I10 - Essential (primary) hypertension (11) Hypoalbuminemia SNOMED Code(s): 640473512 Code(s): E88.09 - OTH DISORDERS OF PLASMA-PROTEIN METABOLISM, NEC Status: Acute Current Visit: No (12) Hypocalcemia SNOMED Code(s): 0452874 Code(s): E83.51 - HYPOCALCEMIA Status: Acute Priority: High Current Visit: Yes (13) Hypokalemia SNOMED Code(s): 01473625 Code(s): E87.6 - HYPOKALEMIA Status: Acute Priority: High Current Visit: No (14) Hypomagnesemia SNOMED Code(s): 259671521 Code(s): E83.42 - HYPOMAGNESEMIA Status: Acute Priority: High Current Visit: Yes (15) Lymphadenopathy, mediastinal SNOMED Code(s): 87902820 Code(s): R59.0 - LOCALIZED ENLARGED LYMPH NODES Status: Acute Current Visit: Yes (16) Major depressive disorder SNOMED Code(s): 094645787 Code(s): F32.9 - MAJOR DEPRESSIVE DISORDER, SINGLE EPISODE, UNSPECIFIED S tatus: Chronic Priority: Medium Current Visit: No Qualifiers: Major depression recurrence: unspecified whether recurrent Active/Remission status: currently active Major depression episode severity: unspecified Qualified Code(s): F32.9 - Major depressive disorder, single episode, unspecified (17) Post traumatic stress disorder SNOMED Code(s): 50424359 Code(s): F43.10 - POST-TRAUMATIC STRESS DISORDER, UNSPECIFIED Status: Chronic Priority: Medium Current Visit: No (18) Thrombocytopenia SNOMED Code(s): 468863118 Code(s): D69.6 - THROMBOCYTOPENIA, UNSPECIFIED Status: Acute Priority: High Current Visit: No (19) Upper GI bleed SNOMED Code(s): 40843683 Code(s): K92.2 - GASTROINTESTINAL HEMORRHAGE, UNSPECIFIED Status: Acute Current Visit: Yes (20) Vitamin D deficiency SNOMED Code(s): 22053744 Code(s): E55.9 - VITAMIN D DEFICIENCY, UNSPECIFIED Status: Acute Current Visit: Yes - Problem List Review Problem List Initiated/Reviewed/Updated: Yes - Assessment Assessment:: August 15, 2019 - Patient found unresponsive by family member, mother - Last alcoholic beverage 24 hours prior to presentation to emergency department - Tremulous and anxious on presentation to the emergency department - Drinking 5-6 shots size bottles a day - Failed multiple inpatient and outpatient alcohol rehab programs - Hypocalcemia corrected with albumin remains low - PTH ordered August 16, 2019 - Worsening withdrawal symptoms, CIWAA >15 - Hypocalcemia resolved with resolution of hypomagnesemia: Corrected calcium 8.8 - Potassium slightly decreased at 3.2 - Albumin still low at 3.1 - Vitamin D 20 - Magnesium corrected at 2.1 August 17, 2019 - Severe alcohol withdrawal with altered mental status and confusion - Patient requiring large doses of diazepam - Required 2 doses of Haldol for withdrawal symptoms - Continues to be tachycardic and tachypneic even after volume resuscitation likely secondary to alcohol withdrawal - Large black stools today - Hemoglobin dropped 5 g over 13 hours - Given 2 units packed red blood cells - Hemoglobin this morning 10.3 and a repeat of 9.5 - Started on Protonix drip - Has history of ulcerative esophagitis on EGD 3 weeks ago - History of colonic polypectomy 3 weeks ago - Continues to be tachycardic and tachypneic but both have improved overnight. - Blood pressure is stable with map greater than 65 - N.p.o. - Chest x-ray consistent with patchy areas of increased density bilaterally. - Low-grade fever overnight of 100.7 while getting blood transfusion - Requiring 1 to 2 L FiO2 - Large amounts of copious secretions requiring suctioning - Possibly secondary to aspiration. Patient has had altered mental status secondary to alcohol withdrawal - Started on Rocephin - Blood cultures drawn August 18, 2019 - Severe alcohol withdrawal - CIWAA's continue to be 15, but requiring less diazepam. - Continues to be confused and hallucinating - Tachycardia and tachypnea have improved - GI bleed - Hemoglobin decreased to 8.1 requiring 2 more units of packed red blood cells. - Patient had significant melena until mid afternoon. - Hemoglobin stabilized at around 9.7 and 9.9 - Started on liquid diet late evening. - CTA shows thickening of the esophageal wall. - Dr. Whatley in surgery following closely. Patient is not stable at this time to proceed with upper endoscopy. - PT 10.7, PTT increased to 60, normal fibrinogen and fibrin degradation products, d-dimer 2.32. - Elevated D dimer - CT of the chest shows patchy areas of increased density within the right upper lung and right middle lobe raising the possibility of pneumonia - CTA was performed showing negative pulmonary embolism - Labs - Corrected calcium 8.6 - Waiting PTH - Phosphorus 1.9 - Magnesium 1.5 August 19, 2019 - CIWAA trend from 8-15, still with significant hallucinations - Discontinued Rocephin and started Unasyn - Ordered procalcitonin - PTH is normal with low vitamin D - No longer requiring O2 supplementation - Electrolytes continue to be abnormal, will continue to replace - Still having intermittent tachycardia - Hb stable, platelets improving August 20, 2019 - Hb stabilized, no more melena - Continues to hallucinate - Required 6mg of IV Ativan in 24 hrs - Room air - Unable to stand alone - Cant have a conversation because she doesn't follow it but she is not agitated - Plan Plan:: Neurology Continue CIWAA protocol Lorazepam as per CIWAA score Thiamine and Folic acid Consult neurology for possible MRI Cardiovascular Monitor vital signs in ICU Lopressor if heart rate exceeds 150. MAP goal greater than 65 Respiratory Aspiration precautions Regular suctioning and oral care as needed FiO2 to keep SPO2 greater than 92 but less than 96% Continue Hyoscyamine Swallow evaluation by speech today Gastrointestinal and Nutrition: Frassier water protocol diet Continue to monitor Hb if melanous BMs continue Continue Protonix IV Kidney and Electrolytes: Strict I's and O's Daily weights Monitor electrolytes and replace as needed Replace K, PO4 and Mg Infectious disease: Sputum culture today if possible Procalcitonin today and every 48h Discontinue Unasyn Start Augmentin PROPHYLAXIS DVT- compression stockings, pharmacological contraindicated due to thrombocytopenia GI- Protonix CODE STATUS: FULL CODE DISPOSITION: Patient will remain admitted in ICU, will consult with Marco for possible tr khang and or suggestions on management.
--- NOTE | 2019-08-23 09:15 | PCM.PN ---
- General Info Date of Service: 08/22/19 Subjective Update: INTERVAL HISTORY Overnight Events: - More coherent - Not following commands - Continues to hallucinate Vital Signs: MAP trend: 68-100 HR trend: 101-105x' Tmax: 98.5 SatO2: >95% I/Os: UO: 1,435 24h balance: -393 Balance since admission: -3,380 New results: K down from 3.7 to 3.4 PO4 down from 1.8 to 1.3 Mg back down to 1.8 Infectious Disease: Antibiotics: Unasyn day 3, antibiotic day 5 Cultures: blood NGTD Procalcitonin 08/18 high Diet: Frassier liquid protocol Lines and tubes: Jeffries catheter 08/15/19 Right femoral central line 08/16/19- 08/19/19 Right internal jugular central line 08/19/19 Rectal tube removed - Patient Data Vitals - Most Recent: Last Vital Signs Temp 98.4 F 08/22/19 21:25 Pulse 129 H 08/22/19 21:25 Resp 16 08/22/19 21:25 BP 118/74 08/22/19 21:25 Pulse Ox 96 08/22/19 21:25 Weight - Most Recent: 55.747 kg - Exam General: Alert, Oriented (interval improvement), Cooperative HEENT: Pupils Equal, Pupils Reactive, Mucous Membr. Moist/[place] Lungs: Clear to Auscultation, Normal Respiratory Effort. No: Crackles, Rales, Rhonchi, Rub, Stridor, Wheezing Cardiovascular: Regular Rhythm, Tachycardia. No: Murmurs, Gallops, Rubs GI/Abdominal Exam: Normal Bowel Sounds, Soft. No: Distended, Guarding, Rigid, Rebound Back Exam: Normal Inspection Extremities: Normal Inspection Neurological: No New Focal Deficit Psy/Mental Status: Alert, Labile Mood, Depressed, Agitated Sepsis Event Note - Evaluation Sepsis Screening Result: No Definite Risk - Problem List & Annotations (1) Aspiration pneumonia SNOMED Code(s): 674818561 Code(s): J69.0 - PNEUMONITIS DUE TO INHALATION OF FOOD AND VOMIT Status: Acute Priority: High Current Visit: Yes Qualifiers: Aspiration pneumonia type: due to gastric secretions Laterality: right Lung location: upper lobe of lung Qualified Code(s): J69.0 - Pneumonitis due to inhalation of food and vomit (2) Delirium tremens SNOMED Code(s): 6908877 Code(s): F10.231 - ALCOHOL DEPENDENCE WITH WITHDRAWAL DELIRIUM Status: Acute Priority: High Current Visit: Yes (3) Dysphagia SNOMED Code(s): 73158126, 106664848 Code(s): R13.10 - DYSPHAGIA, UNSPECIFIED Status: Acute Priority: High Current Visit: Yes Qualifiers: Dysphagia type: unspecified Qualified Code(s): R13.10 - Dysphagia, unspecified (4) Alcohol abuse SNOMED Code(s): 03216888 Code(s): F10.10 - ALCOHOL ABUSE, UNCOMPLICATED Status: Chronic Priority: High Current Visit: No (5) Alcohol consumption binge drinking SNOMED Code(s): 034469570 Code(s): F10.10 - ALCOHOL ABUSE, UNCOMPLICATED Status: Chronic Priority: High Current Visit: No (6) Alcohol withdrawal syndrome SNOMED Code(s): 511901134 Code(s): F10.239 - ALCOHOL DEPENDENCE WITH WITHDRAWAL, UNSPECIFIED Status: Acute Priority: High Current Visit: Yes Qualifiers: Complication of substance-induced condition: with delirium Qualified Code(s): F10.231 - Alcohol dependence with withdrawal delirium (7) Anemia SNOMED Code(s): 254769382 Code(s): D64.9 - ANEMIA, UNSPECIFIED Status: Acute Current Visit: No Qualifiers: Anemia type: unspecified type Qualified Code(s): D64.9 - Anemia, unspecified (8) Anxiety disorder SNOMED Code(s): 042734679 Code(s): F41.9 - ANXIETY DISORDER, UNSPECIFIED Status: Acute Current Visit: No Qualifiers: Anxiety disorder type: generalized anxiety disorder Qualified Code(s): F41.1 - Generalized anxiety disorder (9) Bipolar disorder SNOMED Code(s): 01963810 Code(s): F31.9 - BIPOLAR DISORDER, UNSPECIFIED Status: Acute Priority: High Current Visit: No Qualifiers: Active/Remission status: remission status unspecified Qualified Code(s): F31.9 - Bipolar disorder, unspecified (10) Hypertension SNOMED Code(s): 79081119 Code(s): I10 - ESSENTIAL (PRIMARY) HYPERTENSION Status: Acute Current Visit: No Qualifiers: Hypertension type: essential hypertension Qualified Code(s): I10 - [place] l (primary) hypertension (11) Hypoalbuminemia SNOMED Code(s): 275818276 Code(s): E88.09 - OTH DISORDERS OF PLASMA-PROTEIN METABOLISM, NEC Status: Acute Current Visit: No (12) Hypocalcemia SNOMED Code(s): 9779937 Code(s): E83.51 - HYPOCALCEMIA Status: Acute Priority: High Current Visit: Yes (13) Hypokalemia SNOMED Code(s): 03721207 Code(s): E87.6 - HYPOKALEMIA Status: Acute Priority: High Current Visit: No (14) Hypomagnesemia SNOMED Code(s): 082535569 Code(s): E83.42 - HYPOMAGNESEMIA Status: Acute Priority: High Current Visit: Yes (15) Lymphadenopathy, mediastinal SNOMED Code(s): 63497556 Code(s): R59.0 - LOCALIZED ENLARGED LYMPH NODES Status: Acute Current Visit: Yes (16) Major depressive disorder SNOMED Code(s): 766220819 Code(s): F32.9 - MAJOR DEPRESSIVE DISORDER, SINGLE EPISODE, UNSPECIFIED Status: Chronic Priority: Medium Current Visit: No Qualifiers: Major depression recurrence: unspecified whether recurrent Active/Remission status: currently active Major depression episode severity: unspecified Qualified Code(s): F32.9 - Major depressive disorder, single episode, unspecified (17) Post traumatic stress disorder SNOMED Code(s): 52426961 Code(s): F43.10 - POST-TRAUMATIC STRESS DISORDER, UNSPECIFIED Status: Chronic Priority: Medium Current Visit: No (18) Thrombocytopenia SNOMED Code(s): 840227319 Code(s): D69.6 - THROMBOCYTOPENIA, UNSPECIFIED Status: Acute Priority: High Current Visit: No (19) Upper GI bleed SNOMED Code(s): 56468894 Code(s): K92.2 - GASTROINTESTINAL HEMORRHAGE, UNSPECIFIED Status: Acute Current Visit: Yes (20) Vitamin D deficiency SNOMED Code(s): 19194335 Code(s): E55.9 - VITAMIN D DEFICIENCY, UNSPECIFIED Status: Acute Current Visit: Yes - Problem List Review Problem List Initiated/Reviewed/Updated: Yes - Assessment Assessment:: August 15, 2019 - Patient found unresponsive by family member, mother - Last alcoholic beverage 24 hours prior to presentation to emergency department - Tremulous and anxious on presentation to the emergency department - Drinking 5-6 shots size bottles a day - Failed multiple inpatient and outpatient alcohol rehab programs - Hypocalcemia corrected with albumin remains low - PTH ordered August 16, 2019 - Worsening withdrawal symptoms, CIWAA >15 - Hypocalcemia resolved with resolution of hypomagnesemia: Corrected calcium 8.8 - Potassium slightly decreased at 3.2 - Albumin still low at 3.1 - Vitamin D 20 - Magnesium corrected at 2.1 August 17, 2019 - Severe alcohol withdrawal with altered mental status and confusion - Patient requiring large doses of diazepam - Required 2 doses of Haldol for withdrawal symptoms - Continues to be tachycardic and tachypneic even after volume resuscitation likely secondary to alcohol withdrawal - Large black stools today - Hemoglobin dropped 5 g over 13 hours - Given 2 units packed red blood cells - Hemoglobin this morning 10.3 and a repeat of 9.5 - Started on Protonix drip - Has history of ulcerative esophagitis on EGD 3 weeks ago - History of colonic polypectomy 3 weeks ago - Continues to be tachycardic and tachypneic but both have improved overnight. - Blood pressure is stable with map greater than 65 - N.p.o. - Chest x-ray consistent with patchy areas of increased density bilaterally. - Low-grade fever overnight of 100.7 while getting blood transfusion - Requiring 1 to 2 L FiO2 - Large amounts of copious secretions requiring suctioning - Possibly secondary to aspiration. Patient has had altered mental status secondary to alcohol withdrawal - Started on Rocephin - Blood cultures drawn August 18, 2019 - Severe alcohol withdrawal - CIWAA's continue to be 15, but requiring less diazepam. - Continues to be confused and hallucinating - Tachycardia and tachypnea have improved - GI bleed - Hemoglobin decreased to 8.1 requiring 2 more units of packed red blood cells. - Patient had significant melena until mid afternoon. - Hemoglobin stabilized at around 9.7 and 9.9 - Started on liquid diet late evening. - CTA shows thickening of the esophageal wall. - Dr. Whatley in surgery following closely. Patient is not stable at this time to proceed with upper endoscopy. - PT 10.7, PTT increased to 60, normal fibrinogen and fibrin degradation products, d-dimer 2.32. - Elevated D dimer - CT of the chest shows patchy areas of increased density within the right upper lung and right middle lobe raising the possibility of pneumonia - CTA was performed showing negative pulmonary embolism - Labs - Corrected calcium 8.6 - Waiting PTH - Phosphorus 1.9 - Magnesium 1.5 August 19, 2019 - CIWAA trend from 8-15, still with significant hallucinations - Discontinued Rocephin and started Unasyn - Ordered procalcitonin - PTH is normal with low vitamin D - No longer requiring O2 supplementation - Electrolytes continue to be abnormal, will continue to replace - Still having intermittent tachycardia - Hb stable, platelets improving August 20, 2019 - Hb stabilized, no more melena - Continues to hallucinate - Required 6mg of IV Ativan in 24 hrs - Room air - Unable to stand alone - Cant have a conversation because she doesn't follow it but she is not agitated - Passed swallow eval.--> regular diet August 21, 2019 - K 3.7 to 3.4 - PO4 1.3 - Mg 1.8 - Unable to stand, not following commands - Still hallucinating - Room air - Not appropriate for ancillary services yet - COVID negative - UO 1435 - Brain MRi negative for acute findings - Balance -393 - Plan Plan:: Neurology Continue CIWAA protocol Diazepam 10mg TID Thiamine and Folic acid Psychiatry consult today Cardiovascular Monitor vital signs in ICU Lopressor if heart rate exceeds 150. MAP goal greater than 65 Respiratory Aspiration precautions Continue Hyoscyamine Gastrointestinal and Nutrition: Regular diet Continue Protonix IV Kidney and Electrolytes: Strict I's and O's Daily weights Monitor electrolytes and replace as needed Replace K, PO4 and Mg Infectious disease: Sputum culture today if possible Procalcitonin today and every 48h Continue Augmentin PROPHYLAXIS DVT- compression stockings, pharmacological contraindicated due to thrombocytopenia GI- Protonix CODE STATUS: FULL CODE DISPOSITION: Patient will remain admitted in ICU, Neurology recommended MRI, which is normal, psychiatry eval today, pending placement.
[2019-08-23] MEDS ORDERED: Magnesium Sulfate/Water 4 GM in Premix Bag 1 BAG IV ONE (10:55)
[2019-08-23] MEDS: Potassium Chloride 20 MEQ Tab.ER PO SCH ×2 (11:34→21:29)
--- NOTE | 2019-08-23 20:13 | PCM.PN ---
- General Info Date of Service: 08/23/19 Subjective Update: INTERVAL HISTORY Overnight Events: - Mental status continues to improve - Sleeping OK - Still having some hallucinations Vital Signs: BP trend: 117-135/74-77 HR trend: 102-129x' Tmax: 98.4 SatO2: >95% I/Os: UO: 3250 24h balance: -694 New results: Mg down from 1.7 to 1.2 Procalcitonin yesterday negative Infectious Disease: Antibiotics: Augmentin, antibiotic day 6 Cultures: blood NGTD Procalcitonin 08/18 high--> 08/20 negative Diet: Regular Lines and tubes: Jeffries catheter 08/15/19 Right femoral central line 08/16/19- 08/19/19 Right internal jugular central line 08/19/19 Rectal tube removed - Patient Data Vitals - Most Recent: Last Vital Signs Temp 98.8 F 08/23/19 16:54 Pulse 119 H 08/23/19 16:54 Resp 16 08/23/19 16:54 BP 91/61 08/23/19 16:54 Pulse Ox 90 L 08/23/19 16:54 Weight - Most Recent: 55.747 kg - Exam Physical Findings Comments:: General: Alert, Oriented (interval improvement), Cooperative HEENT: Pupils Equal, Pupils Reactive, Mucous Membr. Moist/[place] Lungs: Clear to Auscultation, Normal Respiratory Effort. No: Crackles, Rales, Rhonchi, Rub, Stridor, Wheezing Cardiovascular: Regular Rhythm, Tachycardia. No: Murmurs, Gallops, Rubs GI/Abdominal Exam: Normal Bowel Sounds, Soft. No: Distended, Guarding, Rigid, Rebound Back Exam: Normal Inspection Extremities: Normal Inspection Neurological: No New Focal Deficit Psy/Mental Status: Alert, Labile Mood, Depressed, Agitated Sepsis Event Note - Evaluation Sepsis Screening Result: No Definite Risk - Problem List & Annotations (1) Aspiration pneumonia SNOMED Code(s): 084011750 Code(s): J69.0 - PNEUMONITIS DUE TO INHALATION OF FOOD AND VOMIT Status: Acute Priority: High Current Visit: Yes Qualifiers: Aspiration pneumonia type: due to gastric secretions Laterality: right Lung location: upper lobe of lung Qualified Code(s): J69.0 - Pneumonitis due to inhalation of food and vomit (2) Delirium tremens SNOMED Code(s): 5592543 Code(s): F10.231 - ALCOHOL DEPENDENCE WITH WITHDRAWAL DELIRIUM Status: Acute Priority: High Current Visit: Yes (3) Dysphagia SNOMED Code(s): 20518794, 564849619 Code(s): R13.10 - DYSPHAGIA, UNSPECIFIED Status: Acute Priority: High Current Visit: Yes Qualifiers: Dysphagia type: unspecified Qualified Code(s): R13.10 - Dysphagia, unspecified (4) Alcohol abuse SNOMED Code(s): 99415804 Code(s): F10.10 - ALCOHOL ABUSE, UNCOMPLICATED Status: Chronic Priority: High Current Visit: No (5) Alcohol consumption binge drinking SNOMED Code(s): 358972719 Code(s): F10.10 - ALCOHOL ABUSE, UNCOMPLICATED Status: Chronic Priority: High Current Visit: No (6) Alcohol withdrawal syndrome SNOMED Code(s): 817747523 Code(s): F10.239 - ALCOHOL DEPENDENCE WITH WITHDRAWAL, UNSPECIFIED Status: Acute Priority: High Current Visit: Yes Qualifiers: Complication of substance-induced condition: with delirium Qualified Code(s): F10.231 - Alcohol dependence with withdrawal delirium (7) Anemia SNOMED Code(s): 659252665 Code(s): D64.9 - ANEMIA, UNSPECIFIED Status: Acute Current Visit: No Qualifiers: Anemia type: unspecified type Qualified Code(s): D64.9 - Anemia, unspecified (8) Anxiety disorder SNOMED Code(s): 193873868 Code(s): F41.9 - ANXIETY DISORDER, UNSPECIFIED Status: Acute Current Visit: No Qualifiers: Anxiety disorder type: generalized anxiety disorder Qualified Code(s): F41.1 - Generalized anxiety disorder (9) Bipolar disorder SNOMED Code(s): 57846064 Code(s): F31.9 - BIPOLAR DISORDER, UNSPECIFIED Status: Acute Priority: High Current Visit: No Qualifiers: Active/Remission status: remission status unspecified Qualified Code(s): F31.9 - Bipolar disorder, unspecified (10) Hypertension SNOMED Code(s): 51828443 Code(s): I10 - ESSENTIAL (PRIMARY) HYPERTENSION Status: Acute Current Visit: No Qualifiers: Hypertension type: essential hypertension Qualified Code(s): I10 - Essential (primary) hypertension (11) Hypoalbuminemia SNOMED Code(s): 130008969 Code(s): E88.09 - OTH DISORDERS OF PLASMA-PROTEIN METABOLISM, NEC Status: Acute Current Visit: No (12) Hypocalcemia SNOMED Code(s): 9699725 Code(s): E83.51 - HYPOCALCEMIA Status: Acute Priority: High Current Visit: Yes (13) Hypokalemia SNOMED Code(s): 53035389 Code(s): E87.6 - HYPOKALEMIA Status: Acute Priority: High Current Visit: No (14) Hypomagnesemia SNOMED Code(s): 862778402 Code(s): E83.42 - HYPOMAGNESEMIA Status: Acute Priority: High Current Visit: Yes (15) Lymphadenopathy, mediastinal SNOMED Code(s): 59634898 Code(s): R59.0 - LOCALIZED ENLARGED LYMPH NODES Status: Acute Current Visit: Yes (16) Major depressive disorder SNOMED Code(s): 834828554 Code(s): F32.9 - MAJOR DEPRESSIVE DISORDER, SINGLE EPISODE, UNSPECIFIED Status: Chronic Priority: Medium Current Visit: No Qualifiers: Major depression recurrence: unspecified whether recurrent Active/Remission status: currently active Major depression episode severity: unspecified Qualified Code(s): F32.9 - Major depressive disorder, single episode, unspecified (17) Post traumatic stress disorder SNOMED Code(s): 52323955 Code(s): F43.10 - POST-TRAUMATIC STRESS DISORDER, UNSPECIFIED Status: Chronic Priority: Medium Current Visit: No (18) Thrombocytopenia SNOMED Code(s): 124542599 Code(s): D69.6 - THROMBOCYTOPENIA, UNSPECIFIED Status: Acute Priority: High Current Visit: No (19) Upper GI bleed SNOMED Code(s): 89542419 Code(s): K92.2 - GASTROINTESTINAL HEMORRHAGE, UNSPECIFIED Status: Acute Current Visit: Yes (20) Vitamin D deficiency SNOMED Code(s): 40658566 Code(s): E55.9 - VITAMIN D DEFICIENCY, UNSPECIFIED Status: Acute Current Visit: Yes - Problem List Review Problem List Initiated/Reviewed/Updated: Yes - Assessment Assessment:: - Assessment Assessment:: August 15, 2019 - Patient found unresponsive by family member, mother - Last alcoholic beverage 24 hours prior to presentation to emergency department - Tremulous and anxious on presentation to the emergency department - Drinking 5-6 shots size bottles a day - Failed multiple inpatient and outpatient alcohol rehab programs - Hypocalcemia corrected with albumin remains low - PTH ordered August 16, 2019 - Worsening withdrawal symptoms, CIWAA >15 - Hypocalcemia resolved with resolution of hypomagnesemia: Corrected calcium 8.8 - Potassium slightly decreased at 3.2 - Albumin still low at 3.1 - Vitamin D 20 - Magnesium corrected at 2.1 August 17, 2019 - Severe alcohol withdrawal with altered mental status and confusion - Patient requiring large doses of diazepam - Required 2 doses of Haldol for withdrawal symptoms - Continues to be tachycardic and tachypneic even after volume resuscitation likely secondary to alcohol withdrawal - Large black stools today - Hemoglobin dropped 5 g over 13 hours - Given 2 units packed red blood cells - Hemoglobin this morning 10.3 and a repeat of 9.5 - Started on Protonix drip - Has history of ulcerative esophagitis on EGD 3 weeks ago - History of colonic polypectomy 3 weeks ago - Continues to be tachycardic and tachypneic but both have improved overnight. - Blood pressure is stable with map greater than 65 - N.p.o. - Chest x-ray consistent with patchy areas of increased density bilaterally. - Low-grade fever overnight of 100.7 while getting blood transfusion - Requiring 1 to 2 L FiO2 - Large amounts of copious secretions requiring suctioning - Possibly secondary to aspiration. Patient has had altered mental status secondary to alcohol withdrawal - Started on Rocephin - Blood cultures drawn August 18, 2019 - Severe alcohol withdrawal - CIWAA's continue to be 15, but requiring less diazepam. - Continues to be confused and hallucinating - Tachycardia and tachypnea have improved - GI bleed - Hemoglobin decreased to 8.1 requiring 2 more units of packed red blood cells. - Patient had significant melena until mid afternoon. - Hemoglobin stabilized at around 9.7 and 9.9 - Started on liquid diet late evening. - CTA shows thickening of the esophageal wall. - Dr. Whatley in surgery following closely. Patient is not stable at this time to proceed with upper endoscopy. - PT 10.7, PTT increased to 60, normal fibrinogen and fibrin degradation products, d-dimer 2.32. - Elevated D dimer - CT of the chest shows patchy areas of increased density within the right upper lung and right middle lobe raising the possibility of pneumonia - CTA was performed showing negative pulmonary embolism - Labs - Corrected calcium 8.6 - Waiting PTH - Phosphorus 1.9 - Magnesium 1.5 August 19, 2019 - CIWAA trend from 8-15, still with significant hallucinations - Discontinued Rocephin and started Unasyn - Ordered procalcitonin - PTH is normal with low vitamin D - No longer requiring O2 supplementation - Electrolytes continue to be abnormal, will continue to replace - Still having intermittent tachycardia - Hb stable, platelets improving August 20, 2019 - Hb stabilized, no more melena - Continues to hallucinate - Required 6mg of IV Ativan in 24 hrs - Room air - Unable to stand alone - Cant have a conversation because she doesn't follow it but she is not agitated - Passed swallow eval.--> regular diet - Transitioned Ativan to Diazepam 10mg TID - Transitioned to PO Augmentin August 21, 2019 - K 3.7 to 3.4 - PO4 1.3 - Mg 1.8 - Unable to stand, not following commands - Still hallucinating - Room air - Not appropriate for ancillary services yet - COVID negative - UO 1435 - Brain MRi negative for acute findings - Balance -393 August 22, 2019 - Psychiatry evaluation - Increase Zyprexa dose - Inpatient rehab - AA rep - Spiritual counseling - Can follow up with him as outpatient - Continue Augmentin - Downgrade to medical floor - Plan Plan:: Neurology Continue CIWAA Diazepam 10mg TID Thiamine and Folic acid Cardiovascular Monitor vital signs in ICU Lopressor if heart rate exceeds 150. MAP goal greater than 65 Respiratory Aspiration precautions Continue Hyoscyamine Gastrointestinal and Nutrition: Regular diet Continue Protonix PO Kidney and Electrolytes: Strict I's and O's Daily weights Monitor electrolytes and replace as needed Replace Mg Infectious disease: Discontinue Augmentin PROPHYLAXIS DVT- compression stockings, pharmacological contraindicated due to thrombocytopenia GI- Protonix CODE STATUS: FULL CODE DISPOSITION: Patient will remain admitted, Neurology recommended MRI, which is normal, psychiatry eval today, pending placement. Downgraded to regular floor.
[2019-08-23] MEDS: OLANZapine 5 MG Tab PO SCH (21:27)
[2019-08-23] MEDS: Montelukast 10 MG Tab PO SCH (21:27)
[2019-08-23] MEDS: Mirtazapine 15 MG Tab PO SCH (21:28)
[2019-08-23] MEDS: Calcium Carbonate 500 MG Tab.Chew PO PRN (21:53)
[2019-08-24] MEDS: Calcium Carbonate/Vitamin D3 600 MG-200 Units Tab PO SCH ×4 (04:24→18:10)
[2019-08-24] MEDS: Diazepam 5 MG Tab PO SCH ×3 (04:25→22:06)
[2019-08-24] MEDS: Pantoprazole 40 MG Tab.CR PO SCH ×2 (04:25→18:09)
[2019-08-24] MEDS: Cholecalciferol (Vitamin D3) 5,000 UNIT Tab PO SCH (08:29)
[2019-08-24] MEDS: Sucralfate 1 GM Tab PO SCH ×4 (08:29→22:07)
[2019-08-24] MEDS: Losartan 25 MG Tab PO SCH (08:30)
[2019-08-24] MEDS: Simvastatin 20 MG Tab PO SCH (08:30)
[2019-08-24] MEDS: Thiamine 100 MG Tab PO SCH (08:31)
[2019-08-24] MEDS: Amoxicillin/Clavulanate K 875-125 MG Tab PO SCH (08:31)
[2019-08-24] MEDS: Folic Acid 1 MG Tab PO SCH (08:31)
[2019-08-24] MEDS: Naltrexone 50 MG Tab PO SCH (08:31)
[2019-08-24] MEDS: Magnesium Oxide 400 MG Tab PO SCH ×2 (08:32→22:07)
[2019-08-24] MEDS ORDERED: Magnesium Oxide 400 MG Tab PO ONE (09:26)
[2019-08-24] MEDS ORDERED: Magnesium Sulfate/Water 4 GM in Premix Bag 1 BAG IV ONE (09:30)
--- NOTE | 2019-08-24 18:52 | PCM.PN ---
- General Info Date of Service: 08/24/19 Subjective Update: - Slept OK - Tolerating diet - BM today - Patient Data Vitals - Most Recent: Last Vital Signs Temp 98.6 F 08/24/19 16:39 Pulse 114 H 08/24/19 16:39 Resp 16 08/24/19 16:39 BP 90/60 08/24/19 16:39 Pulse Ox 93 L 08/24/19 16:39 Weight - Most Recent: 53.252 kg - Exam Physical Findings Comments:: General: Alert, Oriented (interval improvement), Cooperative HEENT: Pupils Equal, Pupils Reactive, Mucous Membr. Moist/[place] Lungs: Clear to Auscultation, Normal Respiratory Effort. No: Crackles, Rales, Rhonchi, Rub, Stridor, Wheezing Cardiovascular: Regular Rhythm, Tachycardia. No: Murmurs, Gallops, Rubs GI/Abdominal Exam: Normal Bowel Sounds, Soft. No: Distended, Guarding, Rigid, Rebound Back Exam: Normal Inspection Extremities: Normal Inspection Neurological: No New Focal Deficit Psy/Mental Status: Alert, Labile Mood, Depressed, Agitated Sepsis Event Note - Evaluation Sepsis Screening Result: No Definite Risk - Problem List & Annotations (1) Aspiration pneumonia SNOMED Code(s): 736512019 Code(s): J69.0 - PNEUMONITIS DUE TO INHALATION OF FOOD AND VOMIT Status: Acute Priority: High Current Visit: Yes Qualifiers: Aspiration pneumonia type: due to gastric secretions Laterality: right Lung location: upper lobe of lung Qualified Code(s): J69.0 - Pneumonitis due to inhalation of food and vomit (2) Delirium tremens SNOMED Code(s): 7831365 Code(s): F10.231 - ALCOHOL DEPENDENCE WITH WITHDRAWAL DELIRIUM Status: Acute Priority: High Current Visit: Yes (3) Dysphagia SNOMED Code(s): 58076107, 955667143 Code(s): R13.10 - DYSPHAGIA, UNSPECIFIED Status: Acute Priority: High Current Visit: Yes Qualifiers: Dysphagia type: unspecified Qualified Code(s): R13.10 - Dysphagia, unspecified (4) Alcohol abuse SNOMED Code(s): 59096395 Code(s): F10.10 - ALCOHOL ABUSE, UNCOMPLICATED Status: Chronic Priority: High Current Visit: No (5) Alcohol consumption binge drinking SNOMED Code(s): 305983267 Code(s): F10.10 - ALCOHOL ABUSE, UNCOMPLICATED Status: Chronic Priority: High Current Visit: No (6) Alcohol withdrawal syndrome SNOMED Code(s): 278441164 Code(s): F10.239 - ALCOHOL DEPENDENCE WITH WITHDRAWAL, UNSPECIFIED Status: Acute Priority: High Current Visit: Yes Qualifiers: Complication of substance-induced condition: with delirium Qualified Code(s): F10.231 - Alcohol dependence with withdrawal delirium (7) Anemia SNOMED Code(s): 519144624 Code(s): D64.9 - ANEMIA, UNSPECIFIED Status: Acute Current Visit: No Qualifiers: Anemia type: unspecified type Qualified Code(s): D64.9 - Anemia, unspecified (8) Anxiety disorder SNOMED Code(s): 991702228 Code(s): F41.9 - ANXIETY DISORDER, UNSPECIFIED Status: Acute Current Visit: No Qualifiers: Anxiety disorder type: generalized anxiety disorder Qualified Code(s): F41.1 - Generalized anxiety disorder (9) Bipolar disorder SNOMED Code(s): 15165419 Code(s): F31.9 - BIPOLAR DISORDER, UNSPECIFIED Status: Acute Priority: High Current Visit: No Qualifiers: Active/Remission status: remission status unspecified Qualified Code(s): F31.9 - Bipolar disorder, unspecified (10) Hypertension SNOMED Code(s): 58447739 Code(s): I10 - ESSENTIAL (PRIMARY) HYPERTENSION Status: Acute Current Visit: No Qualifiers: Hypertension type: essential hypertension Qualified Code(s): I10 - Essential (primary) hypertension (11) Hypoalbuminemia SNOMED Code(s): 188590377 Code(s): E88.09 - OTH DISORDERS OF PLASMA-PROTEIN METABOLISM, NEC Status: Acute Current Visit: No (12) Hypocalcemia SNOMED Code(s): 8567031 Code(s): E83.51 - HYPOCALCEMIA Status: Acute Priority: High Current Visit: Yes (13) Hypokalemia SNOMED Code(s): 30273514 Code(s): E87.6 - HYPOKALEMIA Status: Acute Priority: High Current Visit: No (14) Hypomagnesemia SNOMED Code(s): 003523558 Code(s): E83.42 - HYPOMAGNESEMIA Status: Acute Priority: High Current Visit: Yes (15) Lymphadenopathy, mediastinal SNOMED Code(s): 66277644 Code(s): R59.0 - LOCALIZED ENLARGED LYMPH NODES Status: Acute Current Visit: Yes (16) Major depressive disorder SNOMED Code(s): 088863361 Code(s): F32.9 - MAJOR DEPRESSIVE DISORDER, SINGLE EPISODE, UNSPECIFIED Status: Chronic Priority: Medium Current Visit: No Qualifiers: Major depression recurrence: unspecified whether recurrent Active/Remission status: currently active Major depression episode severity: unspecified Qualified Code(s): F32.9 - Major depressive disorder, single episode, unspecified (17) Post traumatic stress disorder SNOMED Code(s): 50461862 Code(s): F43.10 - POST-TRAUMATIC STRESS DISORDER, UNSPECIFIED Status: Chronic Priority: Medium Current Visit: No (18) Thrombocytopenia SNOMED Code(s): 202607287 Code(s): D69.6 - THROMBOCYTOPENIA, UNSPECIFIED Status: Acute Priority: High Current Visit: No (19) Upper GI bleed SNOMED Code(s): 14687504 Code(s): K92.2 - GASTROINTESTINAL HEMORRHAGE, UNSPECIFIED Status: Acute Current Visit: Yes (20) Vitamin D deficiency SNOMED Code(s): 91111910 Code(s): E55.9 - VITAMIN D DEFICIENCY, UNSPECIFIED Status: Acute Current Visit: Yes - Problem List Review Problem List Initiated/Reviewed/Updated: Yes - Assessment Assessment:: Sepsis Event Note - Evaluation Sepsis Screening Result: No Definite Risk - Problem List & Annotations (1) Aspiration pneumonia SNOMED Code(s): 689110844 Code(s): J69.0 - PNEUMONITIS DUE TO INHALATION OF FOOD AND VOMIT Status: Acute Priority: High Current Visit: Yes Qualifiers: Aspiration pneumonia type: due to gastric secretions Laterality: right Lung location: upper lobe of lung Qualified Code(s): J69.0 - Pneumonitis due to inhalation of food and vomit (2) Delirium tremens SNOMED Code(s): 3092000 Code(s): F10.231 - ALCOHOL DEPENDENCE WITH WITHDRAWAL DELIRIUM Status: Acute Priority: High Current Visit: Yes (3) Dysphagia SNOMED Code(s): 66527549, 077037865 Code(s): R13.10 - DYSPHAGIA, UNSPECIFIED Status: Acute Priority: High Current Visit: Yes Qualifiers: Dysphagia type: unspecified Qualified Code(s): R13.10 - Dysphagia, unspecified (4) Alcohol abuse SNOMED Code(s): 94930783 Code(s): F10.10 - ALCOHOL ABUSE, UNCOMPLICATED Status: Chronic Priority: High Current Visit: No (5) Alcohol consumption binge drinking SNOMED Code(s): 590651419 Code(s): F10.10 - ALCOHOL ABUSE, UNCOMPLICATED Status: Chronic Priority: High Current Visit: No (6) Alcohol withdrawal syndrome SNOMED Code(s): 774576892 Code(s): F10.239 - ALCOHOL DEPENDENCE WITH WITHDRAWAL, UNSPECIFIED Status: Acute Priority: High Current Visit: Yes Qualifiers: Complication of substance-induced condition: with delirium Qualified Code(s): F10.231 - Alcohol dependence with withdrawal delirium (7) Anemia SNOMED Code(s): 898273075 Code(s): D64.9 - ANEMIA, UNSPECIFIED Status: Acute Current Visit: No Qualifiers: Anemia type: unspecified type Qualified Code(s): D64.9 - Anemia, unspecified (8) Anxiety disorder SNOMED Code(s): 960368445 Code(s): F41.9 - ANXIETY DISORDER, UNSPECIFIED Status: Acute Current Visit: No Qualifiers: Anxiety disorder type: generalized anxiety disorder Qualified Code(s): F41.1 - Generalized anxiety disorder (9) Bipolar disorder SNOMED Code(s): 97594366 Code(s): F31.9 - BIPOLAR DISORDER, UNSPECIFIED Status: Acute Priority: High Current Visit: No Qualifiers: Active/Remission status: remission status unspecified Qualified Code(s): F31.9 - Bipolar disorder, unspecified (10) Hypertension SNOMED Code(s): 49663010 Code(s): I10 - ESSENTIAL (PRIMARY) HYPERTENSION Status: Acute Current Visit: No Qualifiers: Hypertension type: essential hypertension Qualified Code(s): I10 - Essential (primary) hypertension (11) Hypoalbuminemia SNOMED Code(s): 614847723 Code(s): E88.09 - OTH DISORDERS OF PLASMA-PROTEIN METABOLISM, NEC Status: Acute Current Visit: No (12) Hypocalcemia SNOMED Code(s): 1757658 Code(s): E83.51 - HYPOCALCEMIA Status: Acute Priority: High Current Visit: Yes (13) Hypokalemia SNOMED Code(s): 44482518 Code(s): E87.6 - HYPOKALEMIA Status: Acute Priority: High Current Visit: No (14) Hypomagnesemia SNOMED Code(s): 849287842 Code(s): E83.42 - HYPOMAGNESEMIA Status: Acute Priority: High Current Visit: Yes (15) Lymphadenopathy, mediastinal SNOMED Code(s): 46664546 Code(s): R59.0 - LOCALIZED ENLARGED LYMPH NODES Status: Acute Current Visit: Yes (16) Major depressive disorder SNOMED Code(s): 117055577 Code(s): F32.9 - MAJOR DEPRESSIVE DISORDER, SINGLE EPISODE, UNSPECIFIED Status: Chronic Priority: Medium Current Visit: No Qualifiers: Major depression recurrence: unspecified whether recurrent Active/Remission status: currently active Major depression episode severity: unspecified Qualified Code(s): F32.9 - Major depressive disorder, single episode, unspecified (17) Post traumatic stress disorder SNOMED Code(s): 94899762 Code(s): F43.10 - POST-TRAUMATIC STRESS DISORDER, UNSPECIFIED Status: Chronic Priority: Medium Current Visit: No (18) Thrombocytopenia SNOMED Code(s): 812365412 Code(s): D69.6 - THROMBOCYTOPENIA, UNSPECIFIED Status: Acute Priority: High Current Visit: No (19) Upper GI bleed SNOMED Code(s): 37903884 Code(s): K92.2 - GASTROINTESTINAL HEMORRHAGE, UNSPECIFIED Status: Acute Current Visit: Yes (20) Vitamin D deficiency SNOMED Code(s): 86332623 Code(s): E55.9 - VITAMIN D DEFICIENCY, UNSPECIFIED Status: Acute Current Visit: Yes - Problem List Review Problem List Initiated/Reviewed/Updated: Yes - Assessment Assessment:: - Assessment Assessment:: August 15, 2019 - Patient found unresponsive by family member, mother - Last alcoholic beverage 24 hours prior to presentation to emergency department - Tremulous and anxious on presentation to the emergency department - Drinking 5-6 shots size bottles a day - Failed multiple inpatient and outpatient alcohol rehab programs - Hypocalcemia corrected with albumin remains low - PTH ordered August 16, 2019 - Worsening withdrawal symptoms, CIWAA >15 - Hypocalcemia resolved with resolution of hypomagnesemia: Corrected calcium 8.8 - Potassium slightly decreased at 3.2 - Albumin still low at 3.1 - Vitamin D 20 - Magnesium corrected at 2.1 August 17, 2019 - Severe alcohol withdrawal with altered mental status and confusion - Patient requiring large doses of diazepam - Required 2 doses of Haldol for withdrawal symptoms - Continues to be tachycardic and tachypneic even after volume resuscitation likely secondary to alcohol withdrawal - Large black stools today - Hemoglobin dropped 5 g over 13 hours - Given 2 units packed red blood cells - Hemoglobin this morning 10.3 and a repeat of 9.5 - Started on Protonix drip - Has history of ulcerative esophagitis on EGD 3 weeks ago - History of colonic polypectomy 3 weeks ago - Continues to be tachycardic and tachypneic but both have improved overnight. - Blood pressure is stable with map greater than 65 - N.p.o. - Chest x-ray consistent with patchy areas of increased density bilaterally. - Low-grade fever overnight of 100.7 while getting blood transfusion - Requiring 1 to 2 L FiO2 - Large amounts of copious secretions requiring suctioning - Possibly secondary to aspiration. Patient has had altered mental status secondary to alcohol withdrawal - Started on Rocephin - Blood cultures drawn August 18, 2019 - Severe alcohol withdrawal - CIWAA's continue to be 15, but requiring less diazepam. - Continues to be confused and hallucinating - Tachycardia and tachypnea have improved - GI bleed - Hemoglobin decreased to 8.1 requiring 2 more units of packed red blood cells. - Patient had significant melena until mid afternoon. - Hemoglobin stabilized at around 9.7 and 9.9 - Started on liquid diet late evening. - CTA shows thickening of the esophageal wall. - Dr. Whatley in surgery following closely. Patient is not stable at this time to proceed with upper endoscopy. - PT 10.7, PTT increased to 60, normal fibrinogen and fibrin degradation products, d-dimer 2.32. - Elevated D dimer - CT of the chest shows patchy areas of increased density within the right upper lung and right middle lobe raising the possibility of pneumonia - CTA was performed showing negative pulmonary embolism - Labs - Corrected calcium 8.6 - Waiting PTH - Phosphorus 1.9 - Magnesium 1.5 August 19, 2019 - CIWAA trend from 8-15, still with significant hallucinations - Discontinued Rocephin and started Unasyn - Ordered procalcitonin - PTH is normal with low vitamin D - No longer requiring O2 supplementation - Electrolytes continue to be abnormal, will continue to replace - Still having intermittent tachycardia - Hb stable, platelets improving August 20, 2019 - Hb stabilized, no more melena - Continues to hallucinate - Required 6mg of IV Ativan in 24 hrs - Room air - Unable to stand alone - Cant have a conversation because she doesn't follow it but she is not agitated - Passed swallow eval.--> regular diet - Transitioned Ativan to Diazepam 10mg TID - Transitioned to PO Augmentin August 21, 2019 - K 3.7 to 3.4 - PO4 1.3 - Mg 1.8 - Unable to stand, not following commands - Still hallucinating - Room air - Not appropriate for ancillary services yet - COVID negative - UO 1435 - Brain MRi negative for acute findings - Balance -393 - Speech eval with cognitive impairment August 22, 2019 - Psychiatry evaluation - Increase Zyprexa dose - Inpatient rehab - AA rep - Spiritual counseling - Can follow up with him as outpatient - Continue Augmentin - Downgrade to medical floor August 23, 2019 - Negative procalcitonin - Discontinue Augmentin - Magnesium still low - Increased scheduled magnesium dose - Plan Plan:: Neurology Continue CIWAA Diazepam 10mg TID Thiamine and Folic acid Repeat speech eval Cardiovascular Monitor Respiratory Aspiration precautions Continue Hyoscyamine Gastrointestinal and Nutrition: Regular diet Continue Protonix PO Kidney and Electrolytes: Strict I's and O's Daily weights Monitor electrolytes and replace as needed Replace Mg Increase home Mg PROPHYLAXIS DVT- compression stockings, pharmacological contraindicated due to thrombocytopenia GI- Protonix CODE STATUS: FULL CODE DISPOSITION: Patient will remain admitted, Neurology recommended MRI, which is normal, psychiatry eval done, recommending inpatient rehab. Downgraded to regular floor pending placement
[2019-08-24] MEDS: Montelukast 10 MG Tab PO SCH (22:06)
[2019-08-24] MEDS: Mirtazapine 15 MG Tab PO SCH (22:07)
[2019-08-24] MEDS: OLANZapine 5 MG Tab PO SCH (22:07)
--- NOTE | 2019-08-24 23:37 | CONS ---
CONSULTING PHYSICIAN: Axel Torres MD DATE OF CONSULTATION: 08/22/2019 Site where the services are provided [facility] in [place], [place]. Site where the services are provided from our offices in [facility]. Level of service for this 60 minute inpatient telemedicine event is 60 minute. IDENTIFICATION: The patient is a 63-year-old female who is admitted to the inpatient MICU at [facility] in [place], [place]. She is seen for psychiatric consultation per the request of staff attending, Dr. Parada and her treatment team. CHIEF COMPLAINT: "I am an alcoholic." HISTORY OF PRESENT ILLNESS: The patient is a 63-year-old female, who was admitted on 08/15/2019, secondary to complications from alcohol detox. The patient states that she was in a relationship that "just kind of fell apart" and the patient states she started drinking pretty heavily again. She states that she had been [facility] in [place] "for about 10 weeks" and that she had been doing pretty good until the break up. She states that she was drinking about "5 to 8 aeroplane bottles" of hard liquor a day. She states that because of the complications from her drinking, "my appetite has been terrible." She does state that she has had sustained sobriety in the past, the longest was 7 years back between the period of 2004 to 2011. The patient is wanting to get sober. She states AA has helped in the past. She does feel that if she can get some structured resources in place that would help her with sobriety. She denies any suicidal or homicidal ideation. Does report having some visual hallucinosis. MEDICATIONS AT TIME OF PRESENTATION: 1. Valium 10 mg t.i.d. 2. Remeron 15 mg at bedtime. 3. Zyprexa 10 mg at bedtime. 4. Magnesium supplementation. 5. Lipitor. 6. Cozaar. 7. Folic acid. 8. Thiamine. ALLERGIES: 1. Cipro. 2. Quetiapine. 3. Propoxyphene. PAST MEDICAL HISTORY: 1. History of hypertension. 2. History of high cholesterol. 3. The patient is reporting a history of possible pink eye. REVIEW OF SYSTEMS: Aside from cardiovascular, endocrine, GI, and possibly ocular and neurologic, all other major organ systems are negative at this point in time for acute difficulties or complications. FAMILY PSYCHIATRIC AND CD HISTORY: None reported. PAST PSYCHIATRIC AND CD HISTORY: The patient reports that she was recently in treatment at [facility] for about 10 weeks. She states she has been to AA in the past and this has helped. Longest sobriety has been for 7 years from 2004 to 2011. PAST PSYCHIATRIC DIAGNOSES: Include bipolar affective disease and PTSD. PRIMARY OUTPATIENT CARE PROVIDER: Dr. Verduzco. SOCIAL HISTORY: The patient was born in [place], [place], raised in [place], [place] until about 10 years of age and then appears [place]. She is an only child. She most recently had been living in [place], but moved to [place]. 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 She states she is Sikhism in terms of her delfina formation. MENTAL STATUS EXAM: The patient is a 63-year-old, white female, in no apparent distress. Speech is of regular rate and rhythm. The patient is cognitively oriented x2 to person and place, but not to date, thinking that it is Saturday, 08/05 at the time of the interview. Mood is depressed and tired as well as anxious. Affect is labile, but cooperative overall for the purposes of the inpatient consult. There is no behavioral or stated evidence of acute suicidal or homicidal ideation. Thought content is significant for visual hallucinations. Thought processes are significant for derailment. There are no acute manic symptoms or loose associations evident. Judgment and insight do appear impaired in her current medical and psychiatric state. Motivation for help appears fair to poor. VITAL SIGNS: 117/74, 97, 19, 98.4 degrees. IMPRESSION: [place] I: 1. Alcohol dependence, F10.20. 2. Posttraumatic stress disorder, F43.10. 3. Bipolar affective disease, F31.60. 4. Psychosis, not otherwise specified, F29. 5. Anxiety disorder, not otherwise specified, F41.9. [place] II: None. [place] III: 1. History of hypertension. 2. History of high cholesterol. 3. Signs and symptoms of alcohol withdrawal. 4. Possible diagnosis of pink eye or ocular difficulties per patient report. [place] IV: Severe. [place] V: 50 to 55. PLAN: 1. Sobriety. 2. AA rep to visit the patient while on unit. 3. Pastoral guidance. 4. Increase the patient's Zyprexa from 10 to 15 mg at bedtime to further help with clarity of thought and resolution of the patient's psychotic symptoms as well as for mood stability, anxiety reduction, sleep initiation and maintenance. 5. Continue Remeron 15 mg at bedtime as dosed. 6. Continue Valium 10 mg t.i.d. as dosed. 7. Folic acid supplementation. 8. Thiamine supplementation. 9. Ativan per [facility] protocol. 10.Other medications as dosed and prescribed by the patient's primary inpatient medical treatment team. 11.Recommend that when patient is medically stabilized that she be transferred to a structured inpatient chemical dependency treatment setting as to help her with achieving sustained sobriety, especially as this is appearing to be not her first time being admitted to the inpatient medical unit under similar circumstances, showing that the patient has been danger to herself with the severity of her alcohol consumption. 12.Would recommend the patient follow up with Outpatient Psychiatry to assess overall function efficacy of her newly adjusted continued psychiatric medication regimen when she is medically stabilized, complete CD treatment, and discharged back to the community. 13.We will continue to follow up with the patient on an as-needed basis while she remains on the inpatient MICU at [facility]. 14.We will follow up with the patient sooner if any complications in the interim. 15.Crisis plan is in place. LIZET /[id number]
[2019-08-25] MEDS: Acetaminophen 325 MG Tab PO PRN (00:58)
[2019-08-25] MEDS: Calcium Carbonate 500 MG Tab.Chew PO PRN (00:59)
[2019-08-25] MEDS: Pantoprazole 40 MG Tab.CR PO SCH ×2 (05:09→18:49)
[2019-08-25] MEDS: Diazepam 5 MG Tab PO SCH ×3 (05:09→21:05)
[2019-08-25] MEDS ORDERED: Magnesium Hydroxide 400 MG/5 ML Susp 30 ML Cup PO ONE (07:22)
[2019-08-25] MEDS: Calcium Carbonate/Vitamin D3 600 MG-200 Units Tab PO SCH ×3 (08:01→16:37)
[2019-08-25] MEDS: Naltrexone 50 MG Tab PO SCH (08:01)
[2019-08-25] MEDS: Simvastatin 20 MG Tab PO SCH (08:02)
[2019-08-25] MEDS: Magnesium Oxide 400 MG Tab PO SCH ×3 (08:02→21:04)
[2019-08-25] MEDS: Folic Acid 1 MG Tab PO SCH (08:04)
[2019-08-25] MEDS: Thiamine 100 MG Tab PO SCH (08:04)
[2019-08-25] MEDS: Cholecalciferol (Vitamin D3) 5,000 UNIT Tab PO SCH (08:04)
[2019-08-25] MEDS: Sucralfate 1 GM Tab PO SCH ×4 (08:05→21:05)
[2019-08-25] MEDS: Clobetasol 0.05% Crm 30 GM Tube TOP SCH ×2 (18:52→21:06)
[2019-08-25] MEDS: Mirtazapine 15 MG Tab PO SCH (21:04)
[2019-08-25] MEDS: Montelukast 10 MG Tab PO SCH (21:04)
[2019-08-25] MEDS: Losartan 25 MG Tab PO SCH (21:05)
[2019-08-25] MEDS: OLANZapine 5 MG Tab PO SCH (21:05)
--- NOTE | 2019-08-25 23:25 | PCM.PN ---
- General Info Date of Service: 08/25/19 Subjective Update: - Slept OK - Tolerating diet - BM today - Nursing states she gets too sleepy with Valium - Patient states she has itny lesion on groin that is very itchy - Patient Data Vitals - Most Recent: Last Vital Signs Temp 98.6 F 08/25/19 16:34 Pulse 114 H 08/25/19 16:34 Resp 20 08/25/19 16:34 BP 118/69 08/25/19 21:05 Pulse Ox 96 08/25/19 16:34 Weight - Most Recent: 55.747 kg - Exam Physical Findings Comments:: General: Alert, Oriented (interval improvement), Cooperative HEENT: Pupils Equal, Pupils Reactive, Mucous Membr. Moist/[place] Lungs: Clear to Auscultation, Normal Respiratory Effort. No: Crackles, Rales, Rhonchi, Rub, Stridor, Wheezing Cardiovascular: Regular Rhythm, Tachycardia. No: Murmurs, Gallops, Rubs GI/Abdominal Exam: Normal Bowel Sounds, Soft. No: Distended, Guarding, Rigid, Rebound Back Exam: Normal Inspection Extremities: Normal Inspection Skin: lichen planus in groin, BL Neurological: No New Focal Deficit Psy/Mental Status: Alert, Labile Mood, Depressed, Agitated Sepsis Event Note - Evaluation Sepsis Screening Result: No Definite Risk - Problem List & Annotations (1) Aspiration pneumonia SNOMED Code(s): 901841812 Code(s): J69.0 - PNEUMONITIS DUE TO INHALATION OF FOOD AND VOMIT Status: Acute Priority: High Current Visit: Yes Qualifiers: Aspiration pneumonia type: due to gastric secretions Laterality: right Lung location: upper lobe of lung Qualified Code(s): J69.0 - Pneumonitis due to inhalation of food and vomit (2) Delirium tremens SNOMED Code(s): 5881010 Code(s): F10.231 - ALCOHOL DEPENDENCE WITH WITHDRAWAL DELIRIUM Status: Acute Priority: High Current Visit: Yes (3) Dysphagia SNOMED Code(s): 77049418, 153510777 Code(s): R13.10 - DYSPHAGIA, UNSPECIFIED Status: Acute Priority: High Current Visit: Yes Qualifiers: Dysphagia type: unspecified Qualified Code(s): R13.10 - Dysphagia, unspecified (4) Alcohol abuse SNOMED Code(s): 37726411 Code(s): F10.10 - ALCOHOL ABUSE, UNCOMPLICATED Status: Chronic Priority: High Current Visit: No (5) Alcohol consumption binge drinking SNOMED Code(s): 826041372 Code(s): F10.10 - ALCOHOL ABUSE, UNCOMPLICATED Status: Chronic Priority: High Current Visit: No (6) Alcohol withdrawal syndrome SNOMED Code(s): 161938240 Code(s): F10.239 - ALCOHOL DEPENDENCE WITH WITHDRAWAL, UNSPECIFIED Status: Acute Priority: High Current Visit: Yes Qualifiers: Complication of substance-induced condition: with delirium Qualified Code(s): F10.231 - Alcohol dependence with withdrawal delirium (7) Anemia SNOMED Code(s): 234938811 Code(s): D64.9 - ANEMIA, UNSPECIFIED Status: Acute Current Visit: No Qualifiers: Anemia type: unspecified type Qualified Code(s): D64.9 - Anemia, unspecified (8) Anxiety disorder SNOMED Code(s): 586356425 Code(s): F41.9 - ANXIETY DISORDER, UNSPECIFIED Status: Acute Current Visit: No Qualifiers: Anxiety disorder type: generalized anxiety disorder Qualified Code(s): F41.1 - Generalized anxiety disorder (9) Bipolar disorder SNOMED Code(s): 25678153 Code(s): F31.9 - BIPOLAR DISORDER, UNSPECIFIED Status: Acute Priority: High Current Visit: No Qualifiers: Active/Remission status: remission status unspecified Qualified Code(s): F31.9 - Bipolar disorder, unspecified (10) Hypertension SNOMED Code(s): 94900353 Code(s): I10 - ESSENTIAL (PRIMARY) HYPERTENSION Status: Acute Current Visit: No Qualifiers: Hypertension type: essential hypertension Qualified Code(s): I10 - Essential (primary) hypertension (11) Hypoalbuminemia SNOMED Code(s): 954176128 Code(s): E88.09 - OTH DISORDERS OF PLASMA-PROTEIN METABOLISM, NEC Status: Acute Current Visit: No (12) Hypocalcemia SNOMED Code(s): 6028582 Code(s): E83.51 - HYPOCALCEMIA Status: Acute Priority: High Current Visit: Yes (13) Hypokalemia SNOMED Code(s): 11992924 Code(s): E87.6 - HYPOKALEMIA Status: Acute Priority: High Current Visit: No (14) Hypomagnesemia SNOMED Code(s): 675592061 Code(s): E83.42 - HYPOMAGNESEMIA Status: Acute Priority: High Current Visit: Yes (15) Lymphadenopathy, mediastinal SNOMED Code(s): 02456675 Code(s): R59.0 - LOCALIZED ENLARGED LYMPH NODES Status: Acute Current Visit: Yes (16) Major depressive disorder SNOMED Code(s): 842940341 Code(s): F32.9 - MAJOR DEPRESSIVE DISORDER, SINGLE EPISODE, UNSPECIFIED Status: Chronic Priority: Medium Current Visit: No Qualifiers: Major depression recurrence: unspecified whether recurrent Active/Remission status: currently active Major depression episode severity: unspecified Qualified Code(s): F32.9 - Major depressive disorder, single episode, unspecified (17) Post traumatic stress disorder SNOMED Code(s): 17146895 Code(s): F43.10 - POST-TRAUMATIC STRESS DISORDER, UNSPECIFIED Status: Chronic Priority: Medium Current Visit: No (18) Thrombocytopenia SNOMED Code(s): 397831620 Code(s): D69.6 - THROMBOCYTOPENIA, UNSPECIFIED Status: Acute Priority: High Current Visit: No (19) Upper GI bleed SNOMED Code(s): 24836109 Code(s): K92.2 - GASTROINTESTINAL HEMORRHAGE, UNSPECIFIED Status: Acute Current Visit: Yes (20) Vitamin D deficiency SNOMED Code(s): 36796562 Code(s): E55.9 - VITAMIN D DEFICIENCY, UNSPECIFIED Status: Acute Current Visit: Yes (21) Lichen planus SNOMED Code(s): 4343603 Code(s): L43.9 - LICHEN PLANUS, UNSPECIFIED Status: Acute Current Visit: Yes - Problem List Review Problem List Initiated/Reviewed/Updated: Yes - Assessment Assessment:: Sepsis Event Note - Evaluation Sepsis Screening Result: No Definite Risk - Problem List & Annotations (1) Aspiration pneumonia SNOMED Code(s): 431342065 Code(s): J69.0 - PNEUMONITIS DUE TO INHALATION OF FOOD AND VOMIT Status: Acute Priority: High Current Visit: Yes Qualifiers: Aspiration pneumonia type: due to gastric secretions Laterality: right Lung location: upper lobe of lung Qualified Code(s): J69.0 - Pneumonitis due to inhalation of food and vomit (2) Delirium tremens SNOMED Code(s): 9096296 Code(s): F10.231 - ALCOHOL DEPENDENCE WITH WITHDRAWAL DELIRIUM Status: Acute Priority: High Current Visit: Yes (3) Dysphagia SNOMED Code(s): 02474881, 427017132 Code(s): R13.10 - DYSPHAGIA, UNSPECIFIED Status: Acute Priority: High Current Visit: Yes Qualifiers: Dysphagia type: unspecified Qualified Code(s): R13.10 - Dysphagia, unspecified (4) Alcohol abuse SNOMED Code(s): 74888645 Code(s): F10.10 - ALCOHOL ABUSE, UNCOMPLICATED Status: Chronic Priority: High Current Visit: No (5) Alcohol consumption binge drinking SNOMED Code(s): 545165243 Code(s): F10.10 - ALCOHOL ABUSE, UNCOMPLICATED Status: Chronic Priority: High Current Visit: No (6) Alcohol withdrawal syndrome SNOMED Code(s): 702979873 Code(s): F10.239 - ALCOHOL DEPENDENCE WITH WITHDRAWAL, UNSPECIFIED Status: Acute Priority: High Current Visit: Yes Qualifiers: Complication of substance-induced condition: with delirium Qualified Code(s): F10.231 - Alcohol dependence with withdrawal delirium (7) Anemia SNOMED Code(s): 320463782 Code(s): D64.9 - ANEMIA, UNSPECIFIED Status: Acute Current Visit: No Qualifiers: Anemia type: unspecified type Qualified Code(s): D64.9 - Anemia, unspecified (8) Anxiety disorder SNOMED Code(s): 515544574 Code(s): F41.9 - ANXIETY DISORDER, UNSPECIFIED Status: Acute Current Visit: No Qualifiers: Anxiety disorder type: generalized anxiety disorder Qualified Code(s): F41.1 - Generalized anxiety disorder (9) Bipolar disorder SNOMED Code(s): 55359558 Code(s): F31.9 - BIPOLAR DISORDER, UNSPECIFIED Status: Acute Priority: High Current Visit: No Qualifiers: Active/Remission status: remission status unspecified Qualified Code(s): F31.9 - Bipolar disorder, unspecified (10) Hypertension SNOMED Code(s): 74300227 Code(s): I10 - ESSENTIAL (PRIMARY) HYPERTENSION Status: Acute Current Visit: No Qualifiers: Hypertension type: essential hypertension Qualified Code(s): I10 - Essential (primary) hypertension (11) Hypoalbuminemia SNOMED Code(s): 914857346 Code(s): E88.09 - OTH DISORDERS OF PLASMA-PROTEIN METABOLISM, NEC Status: Acute Current Visit: No (12) Hypocalcemia SNOMED Code(s): 9367671 Code(s): E83.51 - HYPOCALCEMIA Status: Acute Priority: High Current Visit: Yes (13) Hypokalemia SNOMED Code(s): 93751135 Code(s): E87.6 - HYPOKALEMIA Status: Acute Priority: High Current Visit: No (14) Hypomagnesemia SNOMED Code(s): 484155787 Code(s): E83.42 - HYPOMAGNESEMIA Status: Acute Priority: High Current Visit: Yes (15) Lymphadenopathy, mediastinal SNOMED Code(s): 92243860 Code(s): R59.0 - LOCALIZED ENLARGED LYMPH NODES Status: Acute Current Visit: Yes (16) Major depressive disorder SNOMED Code(s): 066271517 Code(s): F32.9 - MAJOR DEPRESSIVE DISORDER, SINGLE EPISODE, UNSPECIFIED Status: Chronic Priority: Medium Current Visit: No Qualifiers: Major depression recurrence: unspecified whether recurrent Active/Remission status: currently active Major depression episode severity: unspecified Qualified Code(s): F32.9 - Major depressive disorder, single episode, unspecified (17) Post traumatic stress disorder SNOMED Code(s): 80408661 Code(s): F43.10 - POST-TRAUMATIC STRESS DISORDER, UNSPECIFIED Status: Chronic Priority: Medium Current Visit: No (18) Thrombocytopenia SNOMED Code(s): 758885759 Code(s): D69.6 - THROMBOCYTOPENIA, UNSPECIFIED Status: Acute Priority: High Current Visit: No (19) Upper GI bleed SNOMED Code(s): 29244528 Code(s): K92.2 - GASTROINTESTINAL HEMORRHAGE, UNSPECIFIED Status: Acute Current Visit: Yes (20) Vitamin D deficiency SNOMED Code(s): 19507817 Code(s): E55.9 - VITAMIN D DEFICIENCY, UNSPECIFIED Status: Acute Current Visit: Yes - Problem List Review Problem List Initiated/Reviewed/Updated: Yes - Assessment Assessment:: Sepsis Event Note - Evaluation Sepsis Screening Result: No Definite Risk - Problem List & Annotations (1) Aspiration pneumonia SNOMED Code(s): 203883915 Code(s): J69.0 - PNEUMONITIS DUE TO INHALATION OF FOOD AND VOMIT Status: Acute Priority: High Current Visit: Yes Qualifiers: Aspiration pneumonia type: due to gastric secretions Laterality: right Lung location: upper lobe of lung Qualified Code(s): J69.0 - Pneumonitis due to inhalation of food and vomit (2) Delirium tremens SNOMED Code(s): 6757777 Code(s): F10.231 - ALCOHOL DEPENDENCE WITH WITHDRAWAL DELIRIUM Status: Acute Priority: High Current Visit: Yes (3) Dysphagia SNOMED Code(s): 57879245, 904216171 Code(s): R13.10 - DYSPHAGIA, UNSPECIFIED Status: Acute Priority: High Current Visit: Yes Qualifiers: Dysphagia type: unspecified Qualified Code(s): R13.10 - Dysphagia, unspecified (4) Alcohol abuse SNOMED Code(s): 46505363 Code(s): F10.10 - ALCOHOL ABUSE, UNCOMPLICATED Status: Chronic Priority: High Current Visit: No (5) Alcohol consumption binge drinking SNOMED Code(s): 542536909 Code(s): F10.10 - ALCOHOL ABUSE, UNCOMPLICATED Status: Chronic Priority: High Current Visit: No (6) Alcohol withdrawal syndrome SNOMED Code(s): 540000055 Code(s): F10.239 - ALCOHOL DEPENDENCE WITH WITHDRAWAL, UNSPECIFIED Status: Acute Priority: High Current Visit: Yes Qualifiers: Complication of substance-induced condition: with delirium Qualified Code(s): F10.231 - Alcohol dependence with withdrawal delirium (7) Anemia SNOMED Code(s): 724815064 Code(s): D64.9 - ANEMIA, UNSPECIFIED Status: Acute Current Visit: No Qualifiers: Anemia type: unspecified type Qualified Code(s): D64.9 - Anemia, unspecified (8) Anxiety disorder SNOMED Code(s): 058843517 Code(s): F41.9 - ANXIETY DISORDER, UNSPECIFIED Status: Acute Current Visit: No Qualifiers: Anxiety disorder type: generalized anxiety disorder Qualified Code(s): F41.1 - Generalized anxiety disorder (9) Bipolar disorder SNOMED Code(s): 25312069 Code(s): F31.9 - BIPOLAR DISORDER, UNSPECIFIED Status: Acute Priority: High Current Visit: No Qualifiers: Active/Remission status: remission status unspecified Qualified Code(s): F31.9 - Bipolar disorder, unspecified (10) Hypertension SNOMED Code(s): 23993239 Code(s): I10 - ESSENTIAL (PRIMARY) HYPERTENSION Status: Acute Current Visit: No Qualifiers: Hypertension type: essential hypertension Qualified Code(s): I10 - Essential (primary) hypertension (11) Hypoalbuminemia SNOMED Code(s): 526557842 Code(s): E88.09 - OTH DISORDERS OF PLASMA-PROTEIN METABOLISM, NEC Status: Acute Current Visit: No (12) Hypocalcemia SNOMED Code(s): 5549084 Code(s): E83.51 - HYPOCALCEMIA Status: Acute Priority: High Current Visit: Yes (13) Hypokalemia SNOMED Code(s): 50814074 Code(s): E87.6 - HYPOKALEMIA Status: Acute Priority: High Current Visit: No (14) Hypomagnesemia SNOMED Code(s): 883207692 Code(s): E83.42 - HYPOMAGNESEMIA Status: Acute Priority: High Current Visit: Yes (15) Lymphadenopathy, mediastinal SNOMED Code(s): 79206899 Code(s): R59.0 - LOCALIZED ENLARGED LYMPH NODES Status: Acute Current Visit: Yes (16) Major depressive disorder SNOMED Code(s): 864297244 Code(s): F32.9 - MAJOR DEPRESSIVE DISORDER, SINGLE EPISODE, UNSPECIFIED Status: Chronic Priority: Medium Current Visit: No Qualifiers: Major depression recurrence: unspecified whether recurrent Active/Remission status: currently active Major depression episode severity: unspecified Qualified Code(s): F32.9 - Major depressive disorder, single episode, u nspecified (17) Post traumatic stress disorder SNOMED Code(s): 86523855 Code(s): F43.10 - POST-TRAUMATIC STRESS DISORDER, UNSPECIFIED Status: Chronic Priority: Medium Current Visit: No (18) Thrombocytopenia SNOMED Code(s): 288119693 Code(s): D69.6 - THROMBOCYTOPENIA, UNSPECIFIED Status: Acute Priority: High Current Visit: No (19) Upper GI bleed SNOMED Code(s): 83599663 Code(s): K92.2 - GASTROINTESTINAL HEMORRHAGE, UNSPECIFIED Status: Acute Current Visit: Yes (20) Vitamin D deficiency SNOMED Code(s): 69127667 Code(s): E55.9 - VITAMIN D DEFICIENCY, UNSPECIFIED Status: Acute Current Visit: Yes - Problem List Review Problem List Initiated/Reviewed/Updated: Yes - Assessment Assessment:: - Assessment Assessment:: August 15, 2019 - Patient found unresponsive by family member, mother - Last alcoholic beverage 24 hours prior to presentation to emergency department - Tremulous and anxious on presentation to the emergency department - Drinking 5-6 shots size bottles a day - Failed multiple inpatient and outpatient alcohol rehab programs - Hypocalcemia corrected with albumin remains low - PTH ordered August 16, 2019 - Worsening withdrawal symptoms, CIWAA >15 - Hypocalcemia resolved with resolution of hypomagnesemia: Corrected calcium 8.8 - Potassium slightly decreased at 3.2 - Albumin still low at 3.1 - Vitamin D 20 - Magnesium corrected at 2.1 August 17, 2019 - Severe alcohol withdrawal with altered mental status and confusion - Patient requiring large doses of diazepam - Required 2 doses of Haldol for withdrawal symptoms - Continues to be tachycardic and tachypneic even after volume resuscitation likely secondary to alcohol withdrawal - Large black stools today - Hemoglobin dropped 5 g over 13 hours - Given 2 units packed red blood cells - Hemoglobin this morning 10.3 and a repeat of 9.5 - Started on Protonix drip - Has history of ulcerative esophagitis on EGD 3 weeks ago - History of colonic polypectomy 3 weeks ago - Continues to be tachycardic and tachypneic but both have improved overnight. - Blood pressure is stable with map greater than 65 - N.p.o. - Chest x-ray consistent with patchy areas of increased density bilaterally. - Low-grade fever overnight of 100.7 while getting blood transfusion - Requiring 1 to 2 L FiO2 - Large amounts of copious secretions requiring suctioning - Possibly secondary to aspiration. Patient has had altered mental status secondary to alcohol withdrawal - Started on Rocephin - Blood cultures drawn August 18, 2019 - Severe alcohol withdrawal - CIWAA's continue to be 15, but requiring less diazepam. - Continues to be confused and hallucinating - Tachycardia and tachypnea have improved - GI bleed - Hemoglobin decreased to 8.1 requiring 2 more units of packed red blood cells. - Patient had significant melena until mid afternoon. - Hemoglobin stabilized at around 9.7 and 9.9 - Started on liquid diet late evening. - CTA shows thickening of the esophageal wall. - Dr. Whatley in surgery following closely. Patient is not stable at this time to proceed with upper endoscopy. - PT 10.7, PTT increased to 60, normal fibrinogen and fibrin degradation products, d-dimer 2.32. - Elevated D dimer - CT of the chest shows patchy areas of increased density within the right upper lung and right middle lobe raising the possibility of pneumonia - CTA was performed showing negative pulmonary embolism - Labs - Corrected calcium 8.6 - Waiting PTH - Phosphorus 1.9 - Magnesium 1.5 August 19, 2019 - CIWAA trend from 8-15, still with significant hallucinations - Discontinued Rocephin and started Unasyn - Ordered procalcitonin - PTH is normal with low vitamin D - No longer requiring O2 supplementation - Electrolytes continue to be abnormal, will continue to replace - Still having intermittent tachycardia - Hb stable, platelets improving August 20, 2019 - Hb stabilized, no more melena - Continues to hallucinate - Required 6mg of IV Ativan in 24 hrs - Room air - Unable to stand alone - Cant have a conversation because she doesn't follow it but she is not agitated - Passed swallow eval.--> regular diet - Transitioned Ativan to Diazepam 10mg TID - Transitioned to PO Augmentin August 21, 2019 - K 3.7 to 3.4 - PO4 1.3 - Mg 1.8 - Unable to stand, not following commands - Still hallucinating - Room air - Not appropriate for ancillary services yet - COVID negative - UO 1435 - Brain MRi negative for acute findings - Balance -393 - Speech eval with cognitive impairment August 22, 2019 - Psychiatry evaluation - Increase Zyprexa dose - Inpatient rehab - AA rep - Spiritual counseling - Can follow up with him as outpatient - Continue Augmentin - Downgrade to medical floor August 23, 2019 - Negative procalcitonin - Discontinue Augmentin - Magnesium still low - Increased scheduled magnesium dose August 24, 2019 - Repeat evaluation by speech stating her cognitive impairment is mild now - PT/OT eval today - No more hallucinations - Nurse stating patient gets too sleepy with Valium, decreased dose - Changed magnesium dose - Plan Plan:: Neurology Continue CIWAA Diazepam 5mg TID Thiamine and Folic acid Cardiovascular Monitor Respiratory Aspiration precautions Continue Hyoscyamine Gastrointestinal and Nutrition: Regular diet Continue Protonix PO Kidney and Electrolytes: Strict I's and O's Daily weights Monitor electrolytes and replace as needed Replace Mg Increase home Mg Skin: Drying talk on erosions between gluts Clobetasone cream in going PROPHYLAXIS DVT- compression stockings, pharmacological contraindicated due to thrombocytopenia GI- Protonix CODE STATUS: FULL CODE DISPOSITION: Patient will remain admitted, Neurology recommended MRI, which is normal, psychiatry eval done, recommending inpatient rehab. Downgraded to regular floor pending placement
[2019-08-26] MEDS: Acetaminophen 325 MG Tab PO PRN (00:24)
[2019-08-26] MEDS: Calcium Carbonate 500 MG Tab.Chew PO PRN ×2 (00:24→22:21)
[2019-08-26] MEDS: Diazepam 5 MG Tab PO SCH ×3 (05:59→22:23)
[2019-08-26] MEDS: Calcium Carbonate/Vitamin D3 600 MG-200 Units Tab PO SCH ×3 (06:00→16:54)
[2019-08-26] MEDS: Pantoprazole 40 MG Tab.CR PO SCH ×3 (06:00→19:00)
[2019-08-26] MEDS: Clobetasol 0.05% Crm 30 GM Tube TOP SCH ×3 (08:38→16:54)
[2019-08-26] MEDS: Cholecalciferol (Vitamin D3) 5,000 UNIT Tab PO SCH (08:39)
[2019-08-26] MEDS: Thiamine 100 MG Tab PO SCH (08:39)
[2019-08-26] MEDS: Sucralfate 1 GM Tab PO SCH ×4 (08:39→22:22)
[2019-08-26] MEDS: Magnesium Oxide 400 MG Tab PO SCH ×3 (08:39→22:22)
[2019-08-26] MEDS: Folic Acid 1 MG Tab PO SCH (08:39)
[2019-08-26] MEDS: Simvastatin 20 MG Tab PO SCH (08:39)
[2019-08-26] MEDS: Naltrexone 50 MG Tab PO SCH (08:39)
--- NOTE | 2019-08-26 13:09 | PCM.PN ---
- General Info Date of Service: 08/26/19 Admission Dx/Problem (Free Text): Admission Diagnosis/Problem Admission Diagnosis/Problem Alcohol withdrawal syndrome Functional Status: Reports: Pain Controlled, Tolerating Diet, Ambulating, Urinating. Denies: New Symptoms - Review of Systems General: Reports: No Symptoms. Denies: Fever, Weakness, Fatigue, Malaise, Chills HEENT: Reports: No Symptoms. Denies: Headaches, Sore Throat Pulmonary: Reports: No Symptoms. Denies: Shortness of Breath, Pleuritic Chest Pain, Cough, Sputum, Wheezing Cardiovascular: Reports: No Symptoms. Denies: Chest Pain, Palpitations, Dyspnea on Exertion Gastrointestinal: Reports: No Symptoms. Denies: Abdominal Pain, Constipation, Diarrhea, Nausea, Vomiting Genitourinary: Reports: No Symptoms. Denies: Pain Musculoskeletal: Reports: No Symptoms Skin: Reports: No Symptoms. Denies: Cyanosis Neurological: Reports: No Symptoms. Denies: Confusion, Difficulty Walking, Weakness, Gait Disturbance Psychiatric: Reports: No Symptoms - Patient Data Vitals - Most Recent: Last Vital Signs Temp 97.5 F 08/26/19 07:39 Pulse 107 H 08/26/19 07:39 Resp 20 08/26/19 07:39 BP 112/54 L 08/26/19 07:39 Pulse Ox 98 08/26/19 07:39 Weight - Most Recent: 122 lb 14.4 oz I&O - Last 24 Hours: Intake & Output 08/25/19 08/26/19 08/26/19 22:59 06:59 14:59 Intake Total 2160 340 Output Total 800 200 Balance 1360 140 Med Orders - Current: Current Medications Acetaminophen (Tylenol) 650 mg RECTAL Q4H PRN PRN Reason: Fever Last Admin: 08/16/19 22:18 Dose: 650 mg Documented by: Acetaminophen (Tylenol) 650 mg PO Q6H PRN PRN Reason: Fever Last Admin: 08/26/19 00:24 Dose: 650 mg Documented by: Albuterol (Proventil Hfa) 0 gm INH Q4H PRN PRN Reason: Shortness of Breath Albuterol/Ipratropium (Duoneb 3.0-0.5 Mg/3 Ml) 3 ml NEB Q6HRRT PRN PRN Reason: Shortness of Breath Calcium Carbonate (Calcium Carbonate/Vitamin D 600 Mg-200 Unit) 1 tab PO TIDMEALS [facility] Last Admin: 08/26/19 12:18 Dose: 1 tab Documented by: Calcium Carbonate/Glycine (Tums) 1,000 mg PO Q6HR PRN PRN Reason: Indigestion Last Admin: 08/26/19 00:24 Dose: 1,000 mg Documented by: Cholecalciferol (Vitamin D3) 5,000 unit PO DAILY [facility] Last Admin: 08/26/19 08:39 Dose: 5,000 unit Documented by: Clobetasol Propionate (Clobetasol 0.05%) 0 gm TOP QID [facility] Last Admin: 08/26/19 12:58 Dose: 1 applic Documented by: Dextrose/Water (Dextrose 50% In Water) 50 ml IVPUSH ASDIRECTED PRN PRN Reason: Hypoglycemia Last Admin: 08/21/19 06:25 Dose: 25 ml Documented by: Diazepam (Valium.) 5 mg PO Q8H [facility] Last Admin: 08/26/19 05:59 Dose: 5 mg Documented by: Folic Acid (Folic Acid) 1 mg PO DAILY [facility] Last Admin: 08/26/19 08:39 Dose: 1 mg Documented by: Hyoscyamine (Hyomax-Sl) 0.125 mg SL Q4H PRN PRN Reason: EXCESSIVE SECRETIONS Losartan Potassium (Cozaar) 12.5 mg PO BEDTIME [facility] Last Admin: 08/25/19 21:05 Dose: 12.5 mg Documented by: Magnesium Oxide (Magnesium Oxide) 800 mg PO TID [facility] Last Admin: 08/26/19 08:39 Dose: 800 mg Documented by: Mirtazapine (Remeron) 15 mg PO BEDTIME [facility] Last Admin: 08/25/19 21:04 Dose: 15 mg Documented by: Montelukast Sodium (Singulair) 10 mg PO BEDTIME [facility] Last Admin: 08/25/19 21:04 Dose: 10 mg Documented by: Naltrexone HCl (Naltrexone) 50 mg PO DAILY [facility] Last Admin: 08/26/19 08:39 Dose: 50 mg Documented by: Olanzapine (Zyprexa) 15 mg PO BEDTIME [facility] Last Admin: 08/25/19 21:05 Dose: 15 mg Documented by: Ondansetron HCl (Zofran) 4 mg IV Q4H PRN PRN Reason: Nausea/Vomiting Last Admin: 08/15/19 23:53 Dose: 4 mg Documented by: Pantoprazole Sodium (Protonix) 40 mg PO Q12H [facility] Last Admin: 08/26/19 06:00 Dose: 40 mg Documented by: Senna/Docusate Sodium (Senna Plus) 1 tab PO BID PRN PRN Reason: Constipation Last Admin: 08/24/19 04:24 Dose: 1 tab Documented by: Simvastatin (Zocor) 20 mg PO DAILY [facility] Last Admin: 08/26/19 08:39 Dose: 20 mg Documented by: Sodium Chloride (Saline Flush) 10 ml FLUSH ASDIRECTED PRN PRN Reason: Keep Vein Open Last Admin: 08/18/19 12:56 Dose: 10 ml Documented by: Sucralfate (Carafate) 1 gm PO QID [facility] Last Admin: 08/26/19 08:39 Dose: 1 gm Documented by: Thiamine HCl (Vitamin B-1) 100 mg PO DAILY [facility] Last Admin: 08/26/19 08:39 Dose: 100 mg Documented by: Discontinued Medications Acetaminophen (Tylenol) 650 mg PO Q6H PRN PRN Reason: Fever Last Admin: 08/18/19 01:40 Dose: 650 mg Documented by: Al Hydroxide/Mg Hydroxide (Mag-Al Plus) 30 ml PO ONETIME ONE Stop: 08/16/19 01:08 Last Admin: 08/16/19 01:25 Dose: 30 ml Documented by: Amoxicillin/Clavulanate Potassium (Augmentin 875 Mg/125 Mg) 1 tab PO BID [facility] Last Admin: 08/21/19 11:23 Dose: Not Given Documented by: Amoxicillin/Clavulanate Potassium (Augmentin 875 Mg/125 Mg) 1 tab PO BID [facility] Last Admin: 08/24/19 08:31 Dose: 1 tab Documented by: Ampicillin Sodium/Sulbactam Sodium (Unasyn) Confirm Administered Dose 3 gm .ROUTE .STK-MED ONE Stop: 08/20/19 10:11 Last Admin: 08/20/19 10:48 Dose: Not Given Documented by: Calcium Carbonate/Glycine (Tums) 1,000 mg PO ONETIME ONE Stop: 08/15/19 16:43 Last Admin: 08/15/19 17:13 Dose: 1,000 mg Documented by: Calcium Carbonate/Glycine (Tums) 1,000 mg PO Q2HR PRN PRN Reason: Indigestion Chlordiazepoxide HCl (Librium) 75 mg PO ONETIME ONE Stop: 08/16/19 09:42 Last Admin: 08/16/19 09:45 Dose: 75 mg Documented by: Chlordiazepoxide HCl (Librium) 0 mg PO Q1H PRN; Protocol PRN Reason: Withdrawal Symptoms Chlordiazepoxide HCl (Librium) 50 mg PO Q4H [facility] Stop: 08/17/19 13:31 Last Admin: 08/17/19 14:27 Dose: Not Given Documented by: Chlordiazepoxide HCl (Librium) 50 mg PO Q6H [facility] Stop: 08/18/19 11:31 Chlordiazepoxide HCl (Librium) 25 mg PO Q4H [facility] Stop: 08/19/19 13:31 Chlordiazepoxide HCl (Librium) 25 mg PO Q6H [facility] Stop: 08/20/19 11:31 Dextrose/Water (Dextrose 50% In Water) 25 ml IVPUSH ASDIRECTED ONE Stop: 08/18/19 13:43 Last Admin: 08/18/19 13:59 Dose: 25 ml Documented by: Diazepam (Valium) 10 mg IVPUSH ONETIME ONE Stop: 08/15/19 16:15 Last Admin: 08/15/19 16:36 Dose: 10 mg Documented by: Diazepam (Valium.) 5 - 10 mg PO Q1H PRN PRN Reason: Withdrawal Symptoms Last Admin: 08/16/19 06:56 Dose: 10 mg Documented by: Diazepam (Valium) 5 - 10 mg IVPUSH Q1H PRN PRN Reason: Withdrawal Symptoms Last Admin: 08/16/19 23:15 Dose: 10 mg Documented by: Diazepam (Valium.) 10 mg PO Q8HR [facility] Last Admin: 08/19/19 06:24 Dose: 10 mg Documented by: Diazepam (Valium) 5 - 10 mg IVPUSH SEECOMMENT PRN PRN Reason: Withdrawal Symptoms Last Admin: 08/19/19 03:38 Dose: 10 mg Documented by: Diazepam (Valium.) 10 mg PO Q8H [facility] Diazepam (Valium.) 10 mg PO Q8H [facility] Last Admin: 08/25/19 05:09 Dose: 10 mg Documented by: Diphenhydramine HCl (Benadryl) 50 mg IVPUSH Q6H [facility] Last Admin: 08/16/19 23:04 Dose: 50 mg Documented by: Diphenhydramine HCl (Benadryl) 50 mg IVPUSH Q6H PRN PRN Reason: Itching Last Admin: 08/17/19 20:45 Dose: 50 mg Documented by: Enoxaparin Sodium (Lovenox) 40 mg SUBCUT DAILY [facility] Last Admin: 08/16/19 08:34 Dose: 40 mg Documented by: Folic Acid (Folic Acid) 1 mg PO BEDTIME [facility] Last Admin: 08/17/19 20:28 Dose: Not Given Documented by: Folic Acid (Folic Acid) 1 mg PO DAILY [facility] Last Admin: 08/18/19 11:09 Dose: Not Given Documented by: Folic Acid (Folic Acid) 1 mg IV DAILY [facility] Last Admin: 08/21/19 09:16 Dose: 1 mg Documented by: Furosemide (Lasix) 20 mg IVPUSH NOW ONE Stop: 08/16/19 23:15 Last Admin: 08/16/19 23:26 Dose: 20 mg Documented by: Gadobenate Dimeglumine (Multihance) 11 ml IVPUSH ONETIME ONE Stop: 08/21/19 13:20 Last Admin: 08/21/19 13:37 Dose: 11 ml Documented by: Haloperidol Lactate (Haldol) 5 mg IVPUSH ONETIME ONE Stop: 08/16/19 09:42 Last Admin: 08/16/19 09:45 Dose: 5 mg Documented by: Haloperidol Lactate (Haldol) 5 mg IM ONETIME ONE Stop: 08/16/19 12:48 Last Admin: 08/16/19 12:52 Dose: 5 mg Documented by: Haloperidol Lactate (Haldol) 0 mg IVPUSH ASDIRECTED ONE Stop: 08/19/19 07:50 Last Admin: 08/19/19 08:29 Dose: 5 mg Documented by: Haloperidol Lactate (Haldol) 10 mg IVPUSH ONETIME ONE Stop: 08/21/19 12:27 Last Admin: 08/21/19 12:30 Dose: 10 mg Documented by: Heparin Sodium (Porcine) (Heparin Lock Flush 100 Units/Ml) Confirm Administered Dose 500 units .ROUTE .STK-MED ONE Stop: 08/23/19 11:20 Last Admin: 06/28/20 14:25 Dose: Not Given Documented by: Sodium Chloride (Normal Saline) 1,000 mls @ 1,000 mls/hr IV .BOLUS [facility] Last Admin: 08/15/19 13:42 Dose: 1,000 mls/hr Documented by: Magnesium Sulfate/Dextrose 1 (gm/ Premix) 100 mls @ 100 mls/hr IV Q1H [facility] Stop: 08/15/19 18:29 Last Admin: 08/15/19 18:08 Dose: 100 mls/hr Documented by: Potassium Chloride/Dextrose/Sod Cl (D5 1/2 Ns W/ 20 Meq/L Kcl) 1,000 mls @ 100 mls/hr IV ASDIRECTED [facility] Last Admin: 08/18/19 07:24 Dose: 100 mls/hr Documented by: Magnesium Sulfate 2 gm/ Premix 50 mls @ 25 mls/hr IV ONETIME ONE Stop: 08/15/19 23:31 Last Admin: 08/15/19 22:36 Dose: Not Given Documented by: Sodium Chloride (Normal Saline) 1,000 mls @ 999 mls/hr IV ONETIME ONE Stop: 08/16/19 16:03 Last Admin: 08/16/19 15:12 Dose: 999 mls/hr Documented by: Sodium Chloride (Normal Saline) 250 mls @ 250 mls/hr IV .BOLUS ONE Stop: 08/16/19 21:59 Last Admin: 08/16/19 21:15 Dose: 250 mls/hr Documented by: Sodium Chloride (Normal Saline) Confirm Administered Dose 1,000 mls @ as directed .ROUTE .STK-MED ONE Stop: 08/16/19 20:37 Last Admin: 08/16/19 21:16 Dose: Not Given Documented by: Sodium Chloride (Normal Saline) Confirm Administered Dose 250 mls @ as directed .ROUTE .STK-MED ONE Stop: 08/16/19 20:38 Last Admin: 08/16/19 21:16 Dose: Not Given Documented by: Pantoprazole Sodium 80 mg/ (Sodium Chloride) 100 mls @ 10 mls/hr IV Q10H [facility] Last Admin: 08/18/19 13:59 Dose: 10 mls/hr Documented by: Magnesium Sulfate 2 gm/ Premix 50 mls @ 25 mls/hr IV ONETIME ONE Stop: 08/16/19 23:59 Last Admin: 08/16/19 22:25 Dose: 25 mls/hr Documented by: Sodium Phosphate 30 mmole/ (Sodium Chloride) 260 mls @ 86.667 mls/hr IV ONETIME ONE Stop: 08/16/19 22:31 Last Admin: 08/16/19 22:34 Dose: 86.667 mls/hr Documented by: Magnesium Sulfate 2 gm/ Premix 50 mls @ 25 mls/hr IV ONETIME ONE Stop: 08/17/19 10:00 Last Admin: 08/17/19 08:55 Dose: 25 mls/hr Documented by: Potassium Chloride 10 meq/ (Premix) 100 mls @ 100 mls/hr IV Q1H [facility] Stop: 08/17/19 10:14 Last Admin: 08/17/19 09:56 Dose: 100 mls/hr Documented by: Ceftriaxone Sodium 2 gm/ (Sodium Chloride) 100 mls @ 200 mls/hr IV Q24H [facility] Last Admin: 08/19/19 11:07 Dose: Not Given Documented by: Lactated Ringer's (Ringers, Lactated) 1,000 mls @ 999 mls/hr IV .BOLUS ONE Stop: 08/17/19 12:02 Last Admin: 08/17/19 11:05 Dose: 999 mls/hr Documented by: Lactated Ringer's (Ringers, Lactated) Confirm Administered Dose 1,000 mls @ as directed .ROUTE .STK-MED ONE Stop: 08/17/19 11:05 Last Admin: 08/17/19 11:47 Dose: Not Given Documented by: Sodium Chloride (Normal Saline) 250 mls @ 100 mls/hr IV ASDIRECTED [facility] Stop: 08/19/19 00:59 Last Admin: 08/18/19 01:16 Dose: 100 mls/hr Documented by: Sodium Phosphate 30 mmole/ (Sodium Chloride) 260 mls @ 86.667 mls/hr IV ONETIME ONE Stop: 08/18/19 08:31 Last Admin: 08/18/19 09:39 Dose: 86.667 mls/hr Documented by: Magnesium Sulfate 4 gm/ Premix 50 mls @ 12.5 mls/hr IV ONETIME ONE Stop: 08/18/19 12:18 Last Admin: 08/18/19 08:50 Dose: 12.5 mls/hr Documented by: Sodium Chloride (Normal Saline) 100 mls @ 60 mls/hr IV ASDIRECTED [facility] Stop: 08/18/19 16:00 Last Admin: 08/18/19 12:56 Dose: 60 mls/hr Documented by: Potassium Phosphate 60 mmole/ (Sodium Chloride) 1,020 mls @ 102 mls/hr IV ONETIME ONE Stop: 08/19/19 22:29 Last Admin: 08/19/19 11:34 Dose: 102 mls/hr Documented by: Potassium Chloride 10 meq/ (Premix) 100 mls @ 100 mls/hr IV Q1H [facility] Stop: 08/19/19 12:29 Last Admin: 08/19/19 12:58 Dose: Not Given Documented by: Magnesium Sulfate 2 gm/ Premix 50 mls @ 25 mls/hr IV ONETIME ONE Stop: 08/19/19 12:29 Last Admin: 08/19/19 12:58 Dose: Not Given Documented by: Ampicillin Sodium/Sulbactam (Sodium 3 gm/ Sodium Chloride) 100 mls @ 200 mls/hr IV Q6H [facility] Last Admin: 08/21/19 05:07 Dose: 200 mls/hr Documented by: Magnesium Sulfate 2 gm/ Premix 50 mls @ 25 mls/hr IV ONETIME ONE Stop: 08/19/19 15:59 Last Admin: 08/19/19 13:52 Dose: 25 mls/hr Documented by: Potassium Chloride 10 meq/ (Premix) 100 mls @ 100 mls/hr IV Q1H [facility] Stop: 08/19/19 13:59 Last Admin: 08/19/19 12:57 Dose: 100 mls/hr Documented by: Lactated Ringer's (Ringers, Lactated) 1,000 mls @ 50 mls/hr IV ASDIRECTED [facility] Last Admin: 08/20/19 14:04 Dose: 50 mls/hr Documented by: Dextrose/Lactated Ringer's (Dextrose 5%-Lactated Ringers) 1,000 mls @ 50 mls/hr IV ASDIRECTED [facility] Last Admin: 08/20/19 18:35 Dose: 50 mls/hr Documented by: Magnesium Sulfate 2 gm/ Premix 50 mls @ 25 mls/hr IV ONETIME ONE Stop: 08/21/19 12:44 Last Admin: 08/21/19 11:21 Dose: 25 mls/hr Documented by: Potassium Chloride 10 meq/ (Premix) 100 mls @ 100 mls/hr IV Q1H [facility] Stop: 08/21/19 14:44 Last Admin: 08/21/19 15:20 Dose: 100 mls/hr Documented by: Potassium Phosphate 60 mmole/ (Sodium Chloride) 1,020 mls @ 102 mls/hr IV ONETIME ONE Stop: 08/22/19 00:59 Last Admin: 08/21/19 15:22 Dose: 102 mls/hr Documented by: Magnesium Sulfate 4 gm/ Premix 50 mls @ 12.5 mls/hr IV ONETIME ONE Stop: 08/23/19 14:54 Last Admin: 08/23/19 11:33 Dose: 12.5 mls/hr Documented by: Magnesium Sulfate 4 gm/ Premix 50 mls @ 12.5 mls/hr IV ONETIME ONE Stop: 08/24/19 13:29 Last Admin: 08/24/19 09:46 Dose: 12.5 mls/hr Documented by: Iopamidol (Isovue-370 (76%)) 100 ml IVPUSH ONETIME ONE Stop: 08/18/19 12:19 Last Admin: 08/18/19 12:38 Dose: 100 ml Documented by: Lorazepam (Ativan) 1 mg IVPUSH ONETIME ONE Stop: 08/15/19 13:22 Last Admin: 08/15/19 13:42 Dose: 1 mg Documented by: Lorazepam (Ativan) 2 mg IVPUSH Q15M PRN PRN Reason: CIWA >10 Stop: 08/19/19 14:00 Last Admin: 08/19/19 08:30 Dose: 2 mg Documented by: Lorazepam (Ativan) 2 mg IVPUSH Q1H [facility] Stop: 08/19/19 18:01 Last Admin: 08/19/19 17:54 Dose: Not Given Documented by: Lorazepam (Ativan) 2 mg IVPUSH Q4H [facility] Stop: 08/20/19 10:01 Last Admin: 08/20/19 10:02 Dose: 2 mg Documented by: Lorazepam (Ativan) 2 mg IVPUSH Q1H [facility] Stop: 08/19/19 19:01 Last Admin: 08/19/19 20:12 Dose: 2 mg Documented by: Lorazepam (Ativan) 1 mg IVPUSH Q4H [facility] Stop: 08/21/19 02:01 Last Admin: 08/21/19 02:04 Dose: 1 mg Documented by: Losartan Potassium (Cozaar) 12.5 mg PO DAILY [facility] Last Admin: 08/24/19 08:30 Dose: 12.5 mg Documented by: Magnesium Hydroxide (Milk Of Magnesia) 30 ml PO ONETIME ONE Stop: 08/25/19 07:23 Last Admin: 08/25/19 08:01 Dose: 30 ml Documented by: Magnesium Oxide (Magnesium Oxide) 400 mg PO BID [facility] Last Admin: 08/24/19 08:32 Dose: 400 mg Documented by: Magnesium Oxide (Magnesium Oxide) 800 mg PO BID [facility] Last Admin: 08/25/19 08:02 Dose: 800 mg Documented by: Magnesium Oxide (Magnesium Oxide) 400 mg PO ONETIME ONE Stop: 08/24/19 09:27 Last Admin: 08/24/19 09:46 Dose: 400 mg Documented by: Metoprolol Tartrate (Lopressor) 5 mg IVPUSH ONETIME ONE Stop: 08/16/19 12:29 Last Admin: 08/16/19 13:00 Dose: 5 mg Documented by: Non-Formulary Medication (Potassium Chloride [Potassium Chloride]) 20 meq PO DAILY [facility] Olanzapine (Zyprexa) 10 mg PO BEDTIME [facility] Last Admin: 08/16/19 21:19 Dose: Not Given Documented by: Olanzapine (Zyprexa) 10 mg IM BEDTIME [facility] Last Admin: 08/19/19 20:04 Dose: 10 mg Documented by: Olanzapine (Zyprexa) 10 mg PO BEDTIME [facility] Last Admin: 08/21/19 20:09 Dose: 10 mg Documented by: Olanzapine (Zyprexa) 5 mg PO ONETIME ONE Stop: 08/22/19 12:01 Last Admin: 08/22/19 12:36 Dose: 5 mg Documented by: Ondansetron HCl (Zofran) 4 mg IVPUSH ONETIME ONE Stop: 08/15/19 13:13 Last Admin: 08/15/19 13:43 Dose: 4 mg Documented by: Pantoprazole Sodium (Protonix) 40 mg PO ACBREAKFAST [facility] Pantoprazole Sodium (Protonix Iv) 40 mg IVPUSH Q12H [facility] Last Admin: 08/17/19 05:36 Dose: Not Given Documented by: Pantoprazole Sodium (Protonix Iv) 40 mg IVPUSH ONETIME ONE Stop: 08/16/19 21:18 Last Admin: 08/16/19 23:10 Dose: 40 mg Documented by: Pantoprazole Sodium (Protonix Iv) 40 mg IVPUSH Q12H [facility] Last Admin: 08/21/19 05:36 Dose: 40 mg Documented by: Potassium Chloride (Klor-Con M20) 20 meq PO BID [facility] Last Admin: 08/16/19 08:31 Dose: 20 meq Documented by: Potassium Chloride (Klor-Con M20) 40 meq PO BID [facility] Stop: 08/23/19 21:01 Last Admin: 08/23/19 21:29 Dose: 40 meq Documented by: Sodium Chloride (Saline Flush) 10 ml FLUSH ONETIME ONE Stop: 08/18/19 12:19 Last Admin: 08/18/19 12:38 Dose: 10 ml Documented by: Sodium Chloride (Saline Flush) 20 ml FLUSH ASDIRECTED [facility] Stop: 08/21/19 14:00 Last Admin: 08/21/19 13:37 Dose: 20 ml Documented by: Thiamine HCl (Vitamin B-1) 100 mg IVPUSH ONETIME ONE Stop: 08/15/19 13:15 Last Admin: 08/15/19 13:45 Dose: 100 mg Documented by: Thiamine HCl (Vitamin B-1) 100 mg IVPUSH ONETIME ONE Stop: 08/15/19 21:01 Last Admin: 08/15/19 20:01 Dose: 100 mg Documented by: Thiamine HCl (Vitamin B-1) 100 mg PO DAILY [facility] Last Admin: 08/18/19 11:10 Dose: Not Given Documented by: Thiamine HCl (Vitamin B-1) 100 mg PO BEDTIME [facility] Last Admin: 08/17/19 20:29 Dose: Not Given Documented by: Thiamine HCl (Vitamin B-1) 100 mg IVPUSH DAILY [facility] Last Admin: 08/21/19 09:16 Dose: 100 mg Documented by: - Exam Quality Assessment: DVT Prophylaxis General: Alert, Oriented, Cooperative, No Acute Distress HEENT: Pupils Equal, Pupils Reactive, Mucous Membr. Moist/[place] Neck: Supple, Trachea Midline Lungs: Clear to Auscultation, Normal Respiratory Effort Cardiovascular: Regular Rhythm, Tachycardia GI/Abdominal Exam: Normal Bowel Sounds, Soft, Non-Tender, No Distention (Female) Exam: Deferred Back Exam: Normal Inspection, Full Range of Motion Extremities: Normal Inspection, Normal Range of Motion, Non-Tender, No Pedal Edema, Normal Capillary Refill Peripheral Pulses: 3+: Radial (L), Radial (R), Dorsalis Pedis (L), Dorsalis Pedis (R) Skin: Warm, Dry, Intact Neurological: No New Focal Deficit Psy/Mental Status: Alert, Labile Mood, Anxious, Depressed, Agitated (at times ) Sepsis Event Note - Evaluation Sepsis Screening Result: No Definite Risk - Focused Exam Vital Signs: Vital Signs Temp Pulse Resp BP Pulse Ox 08/26/19 07:39 97.5 F 107 H 20 112/54 L 98 08/26/19 05:54 97.5 F 100 18 107/58 L 92 L Date Exam was Performed: 08/26/19 Time Exam was Performed: 18:00 - Problem List & Annotations (1) Alcohol withdrawal syndrome SNOMED Code(s): 956777808 Code(s): F10.239 - ALCOHOL DEPENDENCE WITH WITHDRAWAL, UNSPECIFIED Status: Acute Priority: High Current Visit: Yes Qualifiers: Complication of substance-induced condition: with delirium Qualified Code(s): F10.231 - Alcohol dependence with withdrawal delirium (2) Aspiration pneumonia SNOMED Code(s): 672502537 Code(s): J69.0 - PNEUMONITIS DUE TO INHALATION OF FOOD AND VOMIT Status: Resolved Priority: High Current Visit: Yes Qualifiers: Aspiration pneumonia type: due to gastric secretions Laterality: right Lung location: upper lobe of lung Qualified Code(s): J69.0 - Pneumonitis due to inhalation of food and vomit (3) Delirium tremens SNOMED Code(s): 8534966 Code(s): F10.231 - ALCOHOL DEPENDENCE WITH WITHDRAWAL DELIRIUM Status: Resolved Priority: High Current Visit: Yes (4) Dysphagia SNOMED Code(s): 18242905, 821116400 Code(s): R13.10 - DYSPHAGIA, UNSPECIFIED Status: Resolved Priority: High Current Visit: Yes Qualifiers: Dysphagia type: unspecified Qualified Code(s): R13.10 - Dysphagia, unspecified (5) Hypocalcemia SNOMED Code(s): 1026887 Code(s): E83.51 - HYPOCALCEMIA Status: Acute Priority: High Current Visit: Yes (6) Hypomagnesemia SNOMED Code(s): 648621457 Code(s): E83.42 - HYPOMAGNESEMIA Status: Acute Priority: High Current Visit: Yes (7) Lichen planus SNOMED Code(s): 7201007 Code(s): L43.9 - LICHEN PLANUS, UNSPECIFIED Status: Acute Priority: High Current Visit: Yes (8) Lymphadenopathy, mediastinal SNOMED Code(s): 64537555 Code(s): R59.0 - LOCALIZED ENLARGED LYMPH NODES Status: Chronic Priority: Medium Current Visit: Yes (9) Upper GI bleed SNOMED Code(s): 32941298 Code(s): K92.2 - GASTROINTESTINAL HEMORRHAGE, UNSPECIFIED Status: Resolved Priority: High Current Visit: Yes (10) Vitamin D deficiency SNOMED Code(s): 33089099 Code(s): E55.9 - VITAMIN D DEFICIENCY, UNSPECIFIED Status: Chronic Priority: Medium Current Visit: Yes (11) Anemia SNOMED Code(s): 995809424 Code(s): D64.9 - ANEMIA, UNSPECIFIED Status: Resolved Priority: High Current Visit: Yes Qualifiers: Anemia type: unspecified type Qualified Code(s): D64.9 - Anemia, unspecified (12) Anxiety disorder SNOMED Code(s): 641980516 Code(s): F41.9 - ANXIETY DISORDER, UNSPECIFIED Status: Acute Priority: High Current Visit: Yes Qualifiers: Anxiety disorder type: generalized anxiety disorder Qualified Code(s): F41.1 - Generalized anxiety disorder (13) Bipolar disorder SNOMED Code(s): 16621809 Code(s): F31.9 - BIPOLAR DISORDER, UNSPECIFIED Status: Acute Priority: High Current Visit: Yes Qualifiers: Active/Remission status: remission status unspecified Qualified Code(s): F31.9 - Bipolar disorder, unspecified (14) Hypertension SNOMED Code(s): 04368340 Code(s): I10 - ESSENTIAL (PRIMARY) HYPERTENSION Status: Chronic Priority: Medium Current Visit: No Qualifiers: Hypertension type: essential hypertension Qualified Code(s): I10 - Essential (primary) hypertension (15) Hypoalbuminemia SNOMED Code(s): 152498897 Code(s): E88.09 - OTH DISORDERS OF PLASMA-PROTEIN METABOLISM, NEC Status: Chronic Priority: Medium Current Visit: Yes (16) Hypokalemia SNOMED Code(s): 01586846 Code(s): E87.6 - HYPOKALEMIA Status: Resolved Priority: High Current Visit: Yes (17) Thrombocytopenia SNOMED Code(s): 911184558 Code(s): D69.6 - THROMBOCYTOPENIA, UNSPECIFIED Status: Resolved Priority: High Current Visit: Yes (18) Alcohol abuse SNOMED Code(s): 68908899 Code(s): F10.10 - ALCOHOL ABUSE, UNCOMPLICATED Status: Chronic Priority: High Current Visit: Yes (19) Alcohol consumption binge drinking SNOMED Code(s): 829112400 Code(s): F10.10 - ALCOHOL ABUSE, UNCOMPLICATED Status: Chronic Priority: High Current Visit: Yes (20) Major depressive disorder SNOMED Code(s): 172813148 Code(s): F32.9 - MAJOR DEPRESSIVE DISORDER, SINGLE EPISODE, UNSPECIFIED Status: Chronic Priority: High Current Visit: Yes Qualifiers: Major depression recurrence: unspecified whether recurrent Active/Remission status: currently active Major depression episode severity: unspecified Qualified Code(s): F32.9 - Major depressive disorder, single episode, unspecified (21) Post traumatic stress disorder SNOMED Code(s): 60326520 Code(s): F43.10 - POST-TRAUMATIC STRESS DISORDER, UNSPECIFIED Status: Chronic Priority: High Current Visit: Yes - Problem List Review Problem List Initiated/Reviewed/Updated: Yes - My Orders Last 24 Hours: My Active Orders 08/26/19 10:34 Antiembolic Devices [RC] PER UNIT ROUTINE JONATAN Hose [Antiembolic Hose] [OM.PC] Routine - Assessment Assessment:: August 15, 2019 - Patient found unresponsive by family member, mother - Last alcoholic beverage 24 hours prior to presentation to emergency department - Tremulous and anxious on presentation to the emergency department - Drinking 5-6 shots size bottles a day - Failed multiple inpatient and outpatient alcohol rehab programs - Hypocalcemia corrected with albumin remains low - PTH ordered August 16, 2019 - Worsening withdrawal symptoms, CIWAA >15 - Hypocalcemia resolved with resolution of hypomagnesemia: Corrected calcium 8.8 - Potassium slightly decreased at 3.2 - Albumin still low at 3.1 - Vitamin D 20 - Magnesium corrected at 2.1 August 17, 2019 - Severe alcohol withdrawal with altered mental status and confusion - Patient requiring large doses of diazepam - Required 2 doses of Haldol for withdrawal symptoms - Continues to be tachycardic and tachypneic even after volume resuscitation likely secondary to alcohol withdrawal - Large black stools today - Hemoglobin dropped 5 g over 13 hours - Given 2 units packed red blood cells - Hemoglobin this morning 10.3 and a repeat of 9.5 - Started on Protonix drip - Has history of ulcerative esophagitis on EGD 3 weeks ago - History of colonic polypectomy 3 weeks ago - Continues to be tachycardic and tachypneic but both have improved overnight. - Blood pressure is stable with map greater than 65 - N.p.o. - Chest x-ray consistent with patchy areas of increased density bilaterally. - Low-grade fever overnight of 100.7 while getting blood transfusion - Requiring 1 to 2 L FiO2 - Large amounts of copious secretions requiring suctioning - Possibly secondary to aspiration. Patient has had altered mental status secondary to alcohol withdrawal - Started on Rocephin - Blood cultures drawn August 18, 2019 - Severe alcohol withdrawal - CIWAA's continue to be 15, but requiring less diazepam. - Continues to be confused and hallucinating - Tachycardia and tachypnea have improved - GI bleed - Hemoglobin decreased to 8.1 requiring 2 more units of packed red blood cells. - Patient had significant melena until mid afternoon. - Hemoglobin stabilized at around 9.7 and 9.9 - Started on liquid diet late evening. - CTA shows thickening of the esophageal wall. - Dr. Whatley in surgery following closely. Patient is not stable at this time to proceed with upper endoscopy. - PT 10.7, PTT increased to 60, normal fibrinogen and fibrin degradation products, d-dimer 2.32. - Elevated D dimer - CT of the chest shows patchy areas of increased density within the right upper lung and right middle lobe raising the possibility of pneumonia - CTA was performed showing negative pulmonary embolism - Labs - Corrected calcium 8.6 - Waiting PTH - Phosphorus 1.9 - Magnesium 1.5 August 19, 2019 - CIWAA trend from 8-15, still with significant hallucinations - Discontinued Rocephin and started Unasyn - Ordered procalcitonin - PTH is normal with low vitamin D - No longer requiring O2 supplementation - Electrolytes continue to be abnormal, will continue to replace - Still having intermittent tachycardia - Hb stable, platelets improving August 20, 2019 - Hb stabilized, no more melena - Continues to hallucinate - Required 6mg of IV Ativan in 24 hrs - Room air - Unable to stand alone - Cant have a conversation because she doesn't follow it but she is not agitated - Passed swallow eval.--> regular diet - Transitioned Ativan to Diazepam 10mg TID - Transitioned to PO Augmentin August 21, 2019 - K 3.7 to 3.4 - PO4 1.3 - Mg 1.8 - Unable to stand, not following commands - Still hallucinating - Room air - Not appropriate for ancillary services yet - COVID negative - UO 1435 - Brain MRi negative for acute findings - Balance -393 - Speech eval with cognitive impairment August 22, 2019 - Psychiatry evaluation - Increase Zyprexa dose - Inpatient rehab - AA rep - Spiritual counseling - Can follow up with him as outpatient - Continue Augmentin - Downgrade to medical floor August 23, 2019 - Negative procalcitonin - Discontinue Augmentin - Magnesium still low - Increased scheduled magnesium dose August 24, 2019 - Repeat evaluation by speech stating her cognitive impairment is mild now - PT/OT eval today - No more hallucinations - Nurse stating patient gets too sleepy with Valium, decreased dose - Changed magnesium dose August 25, 2019 - Greatly improved mentation - Reports she feels better - Continued medical stability - CIWA of 1-3 - Continue magnesium supplementation August 26, 2019 - Continues to feel good - Refusing inpatient treatment - Denies any concerns from ETOH abuse - CIWA 5-3 so far today - Very talkative - Continue magnesium supplementation - Discussed groin rash with Dr. Garland. Patient reports it is worse. Examination performed. Will start nystatin powder. - Plan Plan:: Neurology Continue CIWAA Diazepam 5mg TID Thiamine and Folic acid Zyprexa 15mg at bedtime per psychiatry Cardiovascular Monitor Respiratory Aspiration precautions Continue Hyoscyamine Gastrointestinal and Nutrition: Regular diet Continue Protonix PO Kidney and Electrolytes: Strict I's and O's Daily weights Monitor electrolytes and replace as needed Replace Mg Increase home Mg Skin: Drying talk on erosions between gluts Nystatin powder in groin PROPHYLAXIS DVT- compression stockings, pharmacological contraindicated due to thrombocytopenia GI- Protonix CODE STATUS: FULL CODE DISPOSITION: Patient will remain admitted, Neurology recommended MRI, which is normal, psychiatry eval done, recommending inpatient rehab. Downgraded to regular floor pending placement
[2019-08-26] MEDS: Montelukast 10 MG Tab PO SCH (22:22)
[2019-08-26] MEDS: OLANZapine 5 MG Tab PO SCH (22:22)
[2019-08-26] MEDS: Losartan 25 MG Tab PO SCH (22:23)
[2019-08-26] MEDS: Mirtazapine 15 MG Tab PO SCH (22:23)
[2019-08-26] MEDS: Nystatin Topical Powder 15 GM Bottle TOP SCH (22:23)
[2019-08-27] MEDS: Diazepam 5 MG Tab PO SCH ×2 (04:11→15:23)
[2019-08-27] MEDS: Pantoprazole 40 MG Tab.CR PO SCH (06:06)
[2019-08-27] MEDS: Calcium Carbonate/Vitamin D3 600 MG-200 Units Tab PO SCH ×2 (06:06→11:00)
[2019-08-27] MEDS: Naltrexone 50 MG Tab PO SCH (11:00)
[2019-08-27] MEDS: Nystatin Topical Powder 15 GM Bottle TOP SCH ×2 (11:00→15:23)
[2019-08-27] MEDS: Magnesium Oxide 400 MG Tab PO SCH ×2 (11:00→15:23)
[2019-08-27] MEDS: Sucralfate 1 GM Tab PO SCH ×2 (11:01→15:23)
[2019-08-27] MEDS: Folic Acid 1 MG Tab PO SCH (11:01)
[2019-08-27] MEDS: Thiamine 100 MG Tab PO SCH (11:01)
[2019-08-27] MEDS: Cholecalciferol (Vitamin D3) 5,000 UNIT Tab PO SCH (11:01)
[2019-08-27] MEDS: Simvastatin 20 MG Tab PO SCH (11:01)
[2019-08-27 15:23] VITALS: BP 102/82; PULSE 114
--- NOTE | 2019-08-27 16:42 | PCM.DCSUM1 ---
Discharge Summary - Hospital Course HPI Initial Comments: 63-year-old female well-known to the hospitalist service presents to the emergency department by [facility] because she was found unresponsive by family member. Patient did wake up and there was concern that she had a brief seizure. Patient has known alcohol addiction and has been hospitalized several times for alcohol withdrawal and it is even been to the [facility] last October. Patient was admitted last month and transferred secondary to alcohol withdrawal. Patient states that when she was at [facility] they did do an upper and lower endoscopy and she did have some polyps which her primary care provider requests that she be seen by oncology because of the polyps. Patient states that her last drink was yesterday afternoon around 1300 hrs. She drank approximately 5 airplane size bottles of vodka. She normally drinks 5 to 6/day. Patient does state that she is now hungry, has heartburn, and is thirsty. In the emergency department she was given Zofran, a liter of LR, and 1 mg of Ativan. Patient was found to have severe hypomagnesemia of 0.9, hypocalcemia with a corrected calcium of 7.8 (patient has chronically low calcium) and a short run of V. tach. EKG done in the emergency department showed a normal QT interval, normal sinus rhythm with ventricular rate of 104 bpm. She was started on magnesium IV and transferred to the ICU. Of note her EtOH level was 0. Diagnosis: Stroke: No - Discharge Data Discharge Date: 08/27/19 (Admit date: 08/15/19) Discharge Disposition: DC/Tfer to Psych Hosp/[facility] Condition: Stable - Referral to Home Health Primary Care Physician: PCP None - Discharge Diagnosis/Problem(s) (1) Alcohol withdrawal syndrome SNOMED Code(s): 680365695 ICD Code: F10.239 - ALCOHOL DEPENDENCE WITH WITHDRAWAL, UNSPECIFIED Status: Acute Priority: High Current Visit: Yes Qualifiers: Complication of substance-induced condition: with delirium Qualified Code(s): F10.231 - Alcohol dependence with withdrawal delirium (2) Aspiration pneumonia SNOMED Code(s): 930911081 ICD Code: J69.0 - PNEUMONITIS DUE TO INHALATION OF FOOD AND VOMIT Status: Resolved Priority: High Current Visit: Yes Qualifiers: Aspiration pneumonia type: due to gastric secretions Laterality: right Lung location: upper lobe of lung Qualified Code(s): J69.0 - Pneumonitis due to inhalation of food and vomit (3) Delirium tremens SNOMED Code(s): 1889848 ICD Code: F10.231 - ALCOHOL DEPENDENCE WITH WITHDRAWAL DELIRIUM Status: Resolved Priority: High Current Visit: Yes (4) Dysphagia SNOMED Code(s): 88356214, 405712345 ICD Code: R13.10 - DYSPHAGIA, UNSPECIFIED Status: Resolved Priority: High Current Visit: Yes Qualifiers: Dysphagia type: unspecified Qualified Code(s): R13.10 - Dysphagia, unspecified (5) Hypocalcemia SNOMED Code(s): 6279425 ICD Code: E83.51 - HYPOCALCEMIA Status: Acute Priority: High Current Visit: Yes (6) Hypomagnesemia SNOMED Code(s): 005708300 ICD Code: E83.42 - HYPOMAGNESEMIA Status: Acute Priority: High Current Visit: Yes (7) Lichen planus SNOMED Code(s): 2429216 ICD Code: L43.9 - LICHEN PLANUS, UNSPECIFIED Status: Acute Priority: High Current Visit: Yes (8) Lymphadenopathy, mediastinal SNOMED Code(s): 88166173 ICD Code: R59.0 - LOCALIZED ENLARGED LYMPH NODES Status: Chronic Priority: Medium Current Visit: Yes (9) Upper GI bleed SNOMED Code(s): 78801574 ICD Code: K92.2 - GASTROINTESTINAL HEMORRHAGE, UNSPECIFIED Status: Resolved Priority: High Current Visit: Yes (10) Vitamin D deficiency SNOMED Code(s): 91655395 ICD Code: E55.9 - VITAMIN D DEFICIENCY, UNSPECIFIED Status: Chronic Priority: Medium Current Visit: Yes (11) Anemia SNOMED Code(s): 976092327 ICD Code: D64.9 - ANEMIA, UNSPECIFIED Status: Resolved Priority: High Current Visit: Yes Qualifiers: Anemia type: unspecified type Qualified Code(s): D64.9 - Anemia, unspecified (12) Anxiety disorder SNOMED Code(s): 926653603 ICD Code: F41.9 - ANXIETY DISORDER, UNSPECIFIED Status: Acute Priority: High Current Visit: Yes Qualifiers: Anxiety disorder type: generalized anxiety disorder Qualified Code(s): F41.1 - Generalized anxiety disorder (13) Bipolar disorder SNOMED Code(s): 39653884 ICD Code: F31.9 - BIPOLAR DISORDER, UNSPECIFIED Status: Acute Priority: High Current Visit: Yes Qualifiers: Active/Remission status: remission status unspecified Qualified Code(s): F31.9 - Bipolar disorder, unspecified (14) Hypertension SNOMED Code(s): 36152801 ICD Code: I10 - ESSENTIAL (PRIMARY) HYPERTENSION Status: Chronic Priority: Medium Current Visit: No Qualifiers: Hypertension type: essential hypertension Qualified Code(s): I10 - Essential (primary) hypertension (15) Hypoalbuminemia SNOMED Code(s): 787603088 ICD Code: E88.09 - OTH DISORDERS OF PLASMA-PROTEIN METABOLISM, NEC Status: Chronic Priority: Medium Current Visit: Yes (16) Hypokalemia SNOMED Code(s): 08219095 ICD Code: E87.6 - HYPOKALEMIA Status: Resolved Priority: High Current Visit: Yes (17) Thrombocytopenia SNOMED Code(s): 047416929 ICD Code: D69.6 - THROMBOCYTOPENIA, UNSPECIFIED Status: Resolved Priority: High Current Visit: Yes (18) Alcohol abuse SNOMED Code(s): 99574198 ICD Code: F10.10 - ALCOHOL ABUSE, UNCOMPLICATED Status: Chronic Priority: High Current Visit: Yes (19) Alcohol consumption binge drinking SNOMED Code(s): 127346697 ICD Code: F10.10 - ALCOHOL ABUSE, UNCOMPLICATED Status: Chronic Priority: High Current Visit: Yes (20) Major depressive disorder SNOMED Code(s): 022415634 ICD Code: F32.9 - MAJOR DEPRESSIVE DISORDER, SINGLE EPISODE, UNSPECIFIED Status: Chronic Priority: High Current Visit: Yes Qualifiers: Major depression recurrence: unspecified whether recurrent Active/Remission status: currently active Major depression episode severity: unspecified Qualified Code(s): F32.9 - Major depressive disorder, single episode, unspecified (21) Post traumatic stress disorder SNOMED Code(s): 14155619 ICD Code: F43.10 - POST-TRAUMATIC STRESS DISORDER, UNSPECIFIED Status: Chronic Priority: High Current Visit: Yes - Patient Summary/Data Consults: Consultations 08/16/19 20:59 Consult to Physician [CONS] Routine 08/21/19 10:13 Consult to Speech Language Pathology [DEBLOCKER Evaluation and Treatment] [CONS] Routine 08/24/19 20:38 Consult to Speech Language Pathology [DEBLOCKER Evaluation and Treatment] [CONS] Routine 08/25/19 10:53 PT Evaluation and Treatment [CONS] Routine 08/25/19 10:54 OT Evaluation and Treatment [CONS] Routine Labs Pending at D/C: None Hospital Course: August 15, 2019 - Patient found unresponsive by family member, mother - Last alcoholic beverage 24 hours prior to presentation to emergency department - Tremulous and anxious on presentation to the emergency department - Drinking 5-6 shots size bottles a day - Failed multiple inpatient and outpatient alcohol rehab programs - Hypocalcemia corrected with albumin remains low - PTH ordered August 16, 2019 - Worsening withdrawal symptoms, CIWAA >15 - Hypocalcemia resolved with resolution of hypomagnesemia: Corrected calcium 8.8 - Potassium slightly decreased at 3.2 - Albumin still low at 3.1 - Vitamin D 20 - Magnesium corrected at 2.1 August 17, 2019 - Severe alcohol withdrawal with altered mental status and confusion - Patient requiring large doses of diazepam - Required 2 doses of Haldol for withdrawal symptoms - Continues to be tachycardic and tachypneic even after volume resuscitation likely secondary to alcohol withdrawal - Large black stools today - Hemoglobin dropped 5 g over 13 hours - Given 2 units packed red blood cells - Hemoglobin this morning 10.3 and a repeat of 9.5 - Started on Protonix drip - Has history of ulcerative esophagitis on EGD 3 weeks ago - History of colonic polypectomy 3 weeks ago - Continues to be tachycardic and tachypneic but both have improved overnight. - Blood pressure is stable with map greater than 65 - N.p.o. - Chest x-ray consistent with patchy areas of increased density bilaterally. - Low-grade fever overnight of 100.7 while getting blood transfusion - Requiring 1 to 2 L FiO2 - Large amounts of copious secretions requiring suctioning - Possibly secondary to aspiration. Patient has had altered mental status secondary to alcohol withdrawal - Started on Rocephin - Blood cultures drawn August 18, 2019 - Severe alcohol withdrawal - CIWAA's continue to be 15, but requiring less diazepam. - Continues to be confused and hallucinating - Tachycardia and tachypnea have improved - GI bleed - Hemoglobin decreased to 8.1 requiring 2 more units of packed red blood cells. - Patient had significant melena until mid afternoon. - Hemoglobin stabilized at around 9.7 and 9.9 - Started on liquid diet late evening. - CTA shows thickening of the esophageal wall. - Dr. Whatley in surgery following closely. Patient is not stable at this time to proceed with upper endoscopy. - PT 10.7, PTT increased to 60, normal fibrinogen and fibrin degradation products, d-dimer 2.32. - Elevated D dimer - CT of the chest shows patchy areas of increased density within the right upper lung and right middle lobe raising the possibility of pneumonia - CTA was performed showing negative pulmonary embolism - Labs - Corrected calcium 8.6 - Waiting PTH - Phosphorus 1.9 - Magnesium 1.5 August 19, 2019 - CIWAA trend from 8-15, still with significant hallucinations - Discontinued Rocephin and started Unasyn - Ordered procalcitonin - PTH is normal with low vitamin D - No longer requiring O2 supplementation - Electrolytes continue to be abnormal, will continue to replace - Still having intermittent tachycardia - Hb stable, platelets improving August 20, 2019 - Hb stabilized, no more melena - Continues to hallucinate - Required 6mg of IV Ativan in 24 hrs - Room air - Unable to stand alone - Cant have a conversation because she doesn't follow it but she is not agitated - Passed swallow eval.--> regular diet - Transitioned Ativan to Diazepam 10mg TID - Transitioned to PO Augmentin August 21, 2019 - K 3.7 to 3.4 - PO4 1.3 - Mg 1.8 - Unable to stand, not following commands - Still hallucinating - Room air - Not appropriate for ancillary services yet - COVID negative - UO 1435 - Brain MRi negative for acute findings - Balance -393 - Speech eval with cognitive impairment August 22, 2019 - Psychiatry evaluation - Increase Zyprexa dose - Inpatient rehab - AA rep - Spiritual counseling - Can follow up with him as outpatient - Continue Augmentin - Downgrade to medical floor August 23, 2019 - Negative procalcitonin - Discontinue Augmentin - Magnesium still low - Increased scheduled magnesium dose August 24, 2019 - Repeat evaluation by speech stating her cognitive impairment is mild now - PT/OT eval today - No more hallucinations - Nurse stating patient gets too sleepy with Valium, decreased dose - Changed magnesium dose August 25, 2019 - Greatly improved mentation - Reports she feels better - Continued medical stability - CIWA of 1-3 - Continue magnesium supplementation August 26, 2019 - Continues to feel good - Refusing inpatient treatment - Denies any concerns from ETOH abuse - CIWA 5-3 so far today - Very talkative - Continue magnesium supplementation - Discussed groin rash with Dr. Garland. Patient reports it is worse. Examination performed. Will start nystatin powder. August 27, 2019 - Patient remains medically stable - Very upset in the AM - talking about her mother and childhood incidents with her - Very happy in afternoon - ambulating around floor with walker - Reports she doesn't feel safe at home with her ETOH abuse - CIWA 0-2 today - Continue magnesium supplementation - Groin rash improving - [facility] in to screen patient - Committal paperwork completed - Report given to Dr. Meek who accepted patient transfer - Transferred to [facility] via [facility] for inpatient treatment - Patient Instructions Diet: Usual Diet as Tolerated Activity: As Tolerated Driving: Do Not Drive Notify Provider of: Fever, Increased Pain, Nausea and/or Vomiting - Discharge Plan *PRESCRIPTION DRUG MONITORING PROGRAM REVIEWED*: No *COPY OF PRESCRIPTION DRUG MONITORING REPORT IN PATIENT ANTHONY: No Home Medications: Home Meds Fluticasone Propion/Salmeterol [Advair 250-50 Diskus] 1 puff IH DAILY 05/24/16 [ History] atorvaSTATin [Lipitor] 20 mg PO DAILY 05/24/16 [History] Albuterol Sulfate [Albuterol Sulfate Hfa] 2 puff PO Q4HR PRN 12/22/18 [History] DULoxetine [Cymbalta] 30 mg PO DAILY 12/22/18 [History] Losartan [Cozaar] 12.5 mg PO DAILY 12/22/18 [History] Omeprazole 20 mg PO ACBREAKFAST 12/22/18 [History] Potassium Chloride 20 meq PO DAILY 12/22/18 [History] Sucralfate [Carafate] 1 gm PO QID 12/22/18 [History] Folic Acid 1 mg PO DAILY #30 tablet 12/23/18 [Rx] Naltrexone 50 mg PO DAILY #30 tablet 12/23/18 [Rx] Thiamine [Vitamin B-1] 100 mg PO BEDTIME #30 tab 12/23/18 [Rx] Cranberry Fruit Extract [Cranberry] 0 mg PO DAILY 04/01/19 [History] Lutein/Minerals/Vit A,C & E [Ocuvite] 1 tab PO DAILY 04/01/19 [History] Magnesium 200 mg PO DAILY #30 tablet 04/01/19 [Rx] Montelukast [Singulair] 10 mg PO BEDTIME 04/01/19 [History] Ondansetron [Zofran ODT] 4 mg PO Q6H PRN #20 tab.dis 04/01/19 [Rx] Dexameth/Neomy/Polymyx B [Maxitrol Ophth Oint] 0 gm EYEBOTH TID tube 07/15/19 [Rx] Lactated Ringers [Ringers, Lactated] 75 ml IV ASDIRECTED bag 07/15/19 [Rx] Mirtazapine [Remeron] 15 mg PO BEDTIME tablet 07/15/19 [Rx] OLANZapine [ZyPREXA] 10 mg PO BEDTIME tablet 07/15/19 [Rx] diazePAM [Valium] 10 mg PO Q8HR tablet 07/15/19 [Rx] Oxygen Therapy Mode: Room Air Patient Handouts: Alcohol Use Disorder Forms: ED Department Discharge Referrals: Renard Verduzco MD [Physician] - - Discharge Summary/Plan Comment DC Time >30 min.: Yes (60 mins ) - General Info Date of Service: 08/27/19 Admission Dx/Problem (Free Text: Admission Diagnosis/Problem Admission Diagnosis/Problem Alcohol withdrawal syndrome Functional Status: Reports: Pain Controlled, Tolerating Diet, Ambulating, Urinating. Denies: New Symptoms - Review of Systems General: Reports: Weakness (improved - utilizing walker ). Denies: Fever, Fatigue, Malaise, Chills HEENT: Reports: No Symptoms. Denies: Headaches, Sore Throat Pulmonary: Reports: No Symptoms. Denies: Shortness of Breath, Cough, Sputum, Wheezing Cardiovascular: Reports: No Symptoms. Denies: Chest Pain, Palpitations, Dyspnea on Exertion, Edema Gastrointestinal: Reports: No Symptoms. Denies: Abdominal Pain, Constipation, Diarrhea, Nausea, Vomiting Genitourinary: Reports: No Symptoms. Denies: Pain Musculoskeletal: Reports: No Symptoms Skin: Reports: No Symptoms. Denies: Cyanosis Neurological: Reports: No Symptoms. Denies: Confusion, Headache Psychiatric: Reports: Depression, Mood Lability, Anxiety. Denies: Confusion, Agitation, Hallucinations, Suicidal Ideation, Homicidal Ideation - Patient Data Vitals - Most Recent: Last Vital Signs Temp 97.7 F 08/27/19 13:54 Pulse 114 H 08/27/19 13:54 Resp 24 H 08/27/19 13:54 BP 102/82 08/27/19 13:54 Pulse Ox 98 08/27/19 13:54 Weight - Most Recent: 129 lb I&O - Last 24 hours: Intake & Output 08/27/19 08/27/19 08/27/19 06:59 14:59 22:59 Intake Total 700 180 100 Output Total 500 Balance 200 180 100 Lab Results - Last 24 hrs: Laboratory Results - last 24 hr 08/27/19 Range/Units 05:14 Sodium 140 (136-145) mEq/L Potassium 4.0 (3.5-5.1) mEq/L Chloride 106 (98-107) mEq/L Carbon Dioxide 26 (21-32) mEq/L Anion Gap 12.0 (5-15) BUN 12 (7-18) mg/dL Creatinine 0.6 (0.55-1.02) mg/dL Est Cr Clr Drug Dosing 90.95 mL/min Estimated GFR (MDRD) > 60 (>60) mL/min BUN/Creatinine Ratio 20.0 H (14-18) Glucose 91 (80-115) mg/dL Calcium 7.9 L (8.5-10.1) mg/dL Phosphorus 2.2 L (2.6-4.7) mg/dL Magnesium 1.5 L (1.8-2.4) mg/dl Med Orders - Current: Current Medications Acetaminophen (Tylenol) 650 mg RECTAL Q4H PRN PRN Reason: Fever Last Admin: 08/16/19 22:18 Dose: 650 mg Documented by: Acetaminophen (Tylenol) 650 mg PO Q6H PRN PRN Reason: Fever Last Admin: 08/26/19 00:24 Dose: 650 mg Documented by: Albuterol (Proventil Hfa) 0 gm INH Q4H PRN PRN Reason: Shortness of Breath Albuterol/Ipratropium (Duoneb 3.0-0.5 Mg/3 Ml) 3 ml NEB Q6HRRT PRN PRN Reason: Shortness of Breath Calcium Carbonate (Calcium Carbonate/Vitamin D 600 Mg-200 Unit) 1 tab PO TIDMEALS [facility] Last Admin: 08/27/19 11:00 Dose: 1 tab Documented by: Calcium Carbonate/Glycine (Tums) 1,000 mg PO Q6HR PRN PRN Reason: Indigestion Last Admin: 08/26/19 22:21 Dose: 1,000 mg Documented by: Cholecalciferol (Vitamin D3) 5,000 unit PO DAILY [facility] Last Admin: 08/27/19 11:01 Dose: 5,000 unit Documented by: Dextrose/Water (Dextrose 50% In Water) 50 ml IVPUSH ASDIRECTED PRN PRN Reason: Hypoglycemia Last Admin: 08/21/19 06:25 Dose: 25 ml Documented by: Diazepam (Valium.) 5 mg PO Q8H [facility] Last Admin: 08/27/19 15:23 Dose: 5 mg Documented by: Folic Acid (Folic Acid) 1 mg PO DAILY [facility] Last Admin: 08/27/19 11:01 Dose: 1 mg Documented by: Hyoscyamine (Hyomax-Sl) 0.125 mg SL Q4H PRN PRN Reason: EXCESSIVE SECRETIONS Losartan Potassium (Cozaar) 12.5 mg PO BEDTIME [facility] Last Admin: 08/26/19 22:23 Dose: 12.5 mg Documented by: Magnesium Oxide (Magnesium Oxide) 800 mg PO TID [facility] Last Admin: 08/27/19 15:23 Dose: 800 mg Documented by: Mirtazapine (Remeron) 15 mg PO BEDTIME [facility] Last Admin: 08/26/19 22:23 Dose: 15 mg Documented by: Montelukast Sodium (Singulair) 10 mg PO BEDTIME [facility] Last Admin: 08/26/19 22:22 Dose: 10 mg Documented by: Naltrexone HCl (Naltrexone) 50 mg PO DAILY [facility] Last Admin: 08/27/19 11:00 Dose: 50 mg Documented by: Nystatin (Nystop) 0 gm TOP TID [facility] Last Admin: 08/27/19 15:23 Dose: 1 applic Documented by: Olanzapine (Zyprexa) 15 mg PO BEDTIME [facility] Last Admin: 08/26/19 22:22 Dose: 15 mg Documented by: Ondansetron HCl (Zofran) 4 mg IV Q4H PRN PRN Reason: Nausea/Vomiting Last Admin: 08/15/19 23:53 Dose: 4 mg Documented by: Pantoprazole Sodium (Protonix) 40 mg PO Q12H [facility] Last Admin: 08/27/19 06:06 Dose: 40 mg Documented by: Senna/Docusate Sodium (Senna Plus) 1 tab PO BID PRN PRN Reason: Constipation Last Admin: 08/24/19 04:24 Dose: 1 tab Documented by: Simvastatin (Zocor) 20 mg PO DAILY [facility] Last Admin: 08/27/19 11:01 Dose: 20 mg Documented by: Sodium Chloride (Saline Flush) 10 ml FLUSH ASDIRECTED PRN PRN Reason: Keep Vein Open Last Admin: 08/18/19 12:56 Dose: 10 ml Documented by: Sucralfate (Carafate) 1 gm PO QID [facility] Last Admin: 08/27/19 15:23 Dose: 1 gm Documented by: Thiamine HCl (Vitamin B-1) 100 mg PO DAILY [facility] Last Admin: 08/27/19 11:01 Dose: 100 mg Documented by: Discontinued Medications Acetaminophen (Tylenol) 650 mg PO Q6H PRN PRN Reason: Fever Last Admin: 08/18/19 01:40 Dose: 650 mg Documented by: Al Hydroxide/Mg Hydroxide (Mag-Al Plus) 30 ml PO ONETIME ONE Stop: 08/16/19 01:08 Last Admin: 08/16/19 01:25 Dose: 30 ml Documented by: Amoxicillin/Clavulanate Potassium (Augmentin 875 Mg/125 Mg) 1 tab PO BID [facility] Last Admin: 08/21/19 11:23 Dose: Not Given Documented by: Amoxicillin/Clavulanate Potassium (Augmentin 875 Mg/125 Mg) 1 tab PO BID [facility] Last Admin: 08/24/19 08:31 Dose: 1 tab Documented by: Ampicillin Sodium/Sulbactam Sodium (Unasyn) Confirm Administered Dose 3 gm .ROUTE .STK-MED ONE Stop: 08/20/19 10:11 Last Admin: 08/20/19 10:48 Dose: Not Given Documented by: Calcium Carbonate/Glycine (Tums) 1,000 mg PO ONETIME ONE Stop: 08/15/19 16:43 Last Admin: 08/15/19 17:13 Dose: 1,000 mg Documented by: Calcium Carbonate/Glycine (Tums) 1,000 mg PO Q2HR PRN PRN Reason: Indigestion Chlordiazepoxide HCl (Librium) 75 mg PO ONETIME ONE Stop: 08/16/19 09:42 Last Admin: 08/16/19 09:45 Dose: 75 mg Documented by: Chlordiazepoxide HCl (Librium) 0 mg PO Q1H PRN; Protocol PRN Reason: Withdrawal Symptoms Chlordiazepoxide HCl (Librium) 50 mg PO Q4H [facility] Stop: 08/17/19 13:31 Last Admin: 08/17/19 14:27 Dose: Not Given Documented by: Chlordiazepoxide HCl (Librium) 50 mg PO Q6H [facility] Stop: 08/18/19 11:31 Chlordiazepoxide HCl (Librium) 25 mg PO Q4H [facility] Stop: 08/19/19 13:31 Chlordiazepoxide HCl (Librium) 25 mg PO Q6H [facility] Stop: 08/20/19 11:31 Clobetasol Propionate (Clobetasol 0.05%) 0 gm TOP QID [facility] Last Admin: 08/26/19 16:54 Dose: 1 applic Documented by: Dextrose/Water (Dextrose 50% In Water) 25 ml IVPUSH ASDIRECTED ONE Stop: 08/18/19 13:43 Last Admin: 08/18/19 13:59 Dose: 25 ml Documented by: Diazepam (Valium) 10 mg IVPUSH ONETIME ONE Stop: 08/15/19 16:15 Last Admin: 08/15/19 16:36 Dose: 10 mg Documented by: Diazepam (Valium.) 5 - 10 mg PO Q1H PRN PRN Reason: Withdrawal Symptoms Last Admin: 08/16/19 06:56 Dose: 10 mg Documented by: Diazepam (Valium) 5 - 10 mg IVPUSH Q1H PRN PRN Reason: Withdrawal Symptoms Last Admin: 08/16/19 23:15 Dose: 10 mg Documented by: Diazepam (Valium.) 10 mg PO Q8HR [facility] Last Admin: 08/19/19 06:24 Dose: 10 mg Documented by: Diazepam (Valium) 5 - 10 mg IVPUSH SEECOMMENT PRN PRN Reason: Withdrawal Symptoms Last Admin: 08/19/19 03:38 Dose: 10 mg Documented by: Diazepam (Valium.) 10 mg PO Q8H [facility] Diazepam (Valium.) 10 mg PO Q8H [facility] Last Admin: 08/25/19 05:09 Dose: 10 mg Documented by: Diphenhydramine HCl (Benadryl) 50 mg IVPUSH Q6H [facility] Last Admin: 08/16/19 23:04 Dose: 50 mg Documented by: Diphenhydramine HCl (Benadryl) 50 mg IVPUSH Q6H PRN PRN Reason: Itching Last Admin: 08/17/19 20:45 Dose: 50 mg Documented by: Enoxaparin Sodium (Lovenox) 40 mg SUBCUT DAILY [facility] Last Admin: 08/16/19 08:34 Dose: 40 mg Documented by: Folic Acid (Folic Acid) 1 mg PO BEDTIME [facility] Last Admin: 08/17/19 20:28 Dose: Not Given Documented by: Folic Acid (Folic Acid) 1 mg PO DAILY [facility] Last Admin: 08/18/19 11:09 Dose: Not Given Documented by: Folic Acid (Folic Acid) 1 mg IV DAILY [facility] Last Admin: 08/21/19 09:16 Dose: 1 mg Documented by: Furosemide (Lasix) 20 mg IVPUSH NOW ONE Stop: 08/16/19 23:15 Last Admin: 08/16/19 23:26 Dose: 20 mg Documented by: Gadobenate Dimeglumine (Multihance) 11 ml IVPUSH ONETIME ONE Stop: 08/21/19 13:20 Last Admin: 08/21/19 13:37 Dose: 11 ml Documented by: Haloperidol Lactate (Haldol) 5 mg IVPUSH ONETIME ONE Stop: 08/16/19 09:42 Last Admin: 08/16/19 09:45 Dose: 5 mg Documented by: Haloperidol Lactate (Haldol) 5 mg IM ONETIME ONE Stop: 08/16/19 12:48 Last Admin: 08/16/19 12:52 Dose: 5 mg Documented by: Haloperidol Lactate (Haldol) 0 mg IVPUSH ASDIRECTED ONE Stop: 08/19/19 07:50 Last Admin: 08/19/19 08:29 Dose: 5 mg Documented by: Haloperidol Lactate (Haldol) 10 mg IVPUSH ONETIME ONE Stop: 08/21/19 12:27 Last Admin: 08/21/19 12:30 Dose: 10 mg Documented by: Heparin Sodium (Porcine) (Heparin Lock Flush 100 Units/Ml) Confirm Administered Dose 500 units .ROUTE .STK-MED ONE Stop: 08/23/19 11:20 Last Admin: 08/23/19 14:25 Dose: Not Given Documented by: Sodium Chloride (Normal Saline) 1,000 mls @ 1,000 mls/hr IV .BOLUS [facility] Last Admin: 08/15/19 13:42 Dose: 1,000 mls/hr Documented by: Magnesium Sulfate/Dextrose 1 (gm/ Premix) 100 mls @ 100 mls/hr IV Q1H [facility] Stop: 08/15/19 18:29 Last Admin: 08/15/19 18:08 Dose: 100 mls/hr Documented by: Potassium Chloride/Dextrose/Sod Cl (D5 1/2 Ns W/ 20 Meq/L Kcl) 1,000 mls @ 100 mls/hr IV ASDIRECTED [facility] Last Admin: 08/18/19 07:24 Dose: 100 mls/hr Documented by: Magnesium Sulfate 2 gm/ Premix 50 mls @ 25 mls/hr IV ONETIME ONE Stop: 08/15/19 23:31 Last Admin: 08/15/19 22:36 Dose: Not Given Documented by: Sodium Chloride (Normal Saline) 1,000 mls @ 999 mls/hr IV ONETIME ONE Stop: 08/16/19 16:03 Last Admin: 08/16/19 15:12 Dose: 999 mls/hr Documented by: Sodium Chloride (Normal Saline) 250 mls @ 250 mls/hr IV .BOLUS ONE Stop: 08/16/19 21:59 Last Admin: 08/16/19 21:15 Dose: 250 mls/hr Documented by: Sodium Chloride (Normal Saline) Confirm Administered Dose 1,000 mls @ as directed .ROUTE .STK-MED ONE Stop: 08/16/19 20:37 Last Admin: 08/16/19 21:16 Dose: Not Given Documented by: Sodium Chloride (Normal Saline) Confirm Administered Dose 250 mls @ as directed .ROUTE .STK-MED ONE Stop: 08/16/19 20:38 Last Admin: 08/16/19 21:16 Dose: Not Given Documented by: Pantoprazole Sodium 80 mg/ (Sodium Chloride) 100 mls @ 10 mls/hr IV Q10H [facility] Last Admin: 08/18/19 13:59 Dose: 10 mls/hr Documented by: Magnesium Sulfate 2 gm/ Premix 50 mls @ 25 mls/hr IV ONETIME ONE Stop: 08/16/19 23:59 Last Admin: 08/16/19 22:25 Dose: 25 mls/hr Documented by: Sodium Phosphate 30 mmole/ (Sodium Chloride) 260 mls @ 86.667 mls/hr IV ONETIME ONE Stop: 08/16/19 22:31 Last Admin: 08/16/19 22:34 Dose: 86.667 mls/hr Documented by: Magnesium Sulfate 2 gm/ Premix 50 mls @ 25 mls/hr IV ONETIME ONE Stop: 08/17/19 10:00 Last Admin: 08/17/19 08:55 Dose: 25 mls/hr Documented by: Potassium Chloride 10 meq/ (Premix) 100 mls @ 100 mls/hr IV Q1H [facility] Stop: 08/17/19 10:14 Last Admin: 08/17/19 09:56 Dose: 100 mls/hr Documented by: Ceftriaxone Sodium 2 gm/ (Sodium Chloride) 100 mls @ 200 mls/hr IV Q24H [facility] Last Admin: 08/19/19 11:07 Dose: Not Given Documented by: Lactated Ringer's (Ringers, Lactated) 1,000 mls @ 999 mls/hr IV .BOLUS ONE Stop: 08/17/19 12:02 Last Admin: 08/17/19 11:05 Dose: 999 mls/hr Documented by: Lactated Ringer's (Ringers, Lactated) Confirm Administered Dose 1,000 mls @ as directed .ROUTE .STK-MED ONE Stop: 08/17/19 11:05 Last Admin: 08/17/19 11:47 Dose: Not Given Documented by: Sodium Chloride (Normal Saline) 250 mls @ 100 mls/hr IV ASDIRECTED [facility] Stop: 08/19/19 00:59 Last Admin: 08/18/19 01:16 Dose: 100 mls/hr Documented by: Sodium Phosphate 30 mmole/ (Sodium Chloride) 260 mls @ 86.667 mls/hr IV ONETIME ONE Stop: 08/18/19 08:31 Last Admin: 08/18/19 09:39 Dose: 86.667 mls/hr Documented by: Magnesium Sulfate 4 gm/ Premix 50 mls @ 12.5 mls/hr IV ONETIME ONE Stop: 08/18/19 12:18 Last Admin: 08/18/19 08:50 Dose: 12.5 mls/hr Documented by: Sodium Chloride (Normal Saline) 100 mls @ 60 mls/hr IV ASDIRECTED [facility] Stop: 08/18/19 16:00 Last Admin: 08/18/19 12:56 Dose: 60 mls/hr Documented by: Potassium Phosphate 60 mmole/ (Sodium Chloride) 1,020 mls @ 102 mls/hr IV ONETIME ONE Stop: 08/19/19 22:29 Last Admin: 08/19/19 11:34 Dose: 102 mls/hr Documented by: Potassium Chloride 10 meq/ (Premix) 100 mls @ 100 mls/hr IV Q1H [facility] Stop: 08/19/19 12:29 Last Admin: 08/19/19 12:58 Dose: Not Given Documented by: Magnesium Sulfate 2 gm/ Premix 50 mls @ 25 mls/hr IV ONETIME ONE Stop: 08/19/19 12:29 Last Admin: 08/19/19 12:58 Dose: Not Given Documented by: Ampicillin Sodium/Sulbactam (Sodium 3 gm/ Sodium Chloride) 100 mls @ 200 mls/hr IV Q6H [facility] Last Admin: 08/21/19 05:07 Dose: 200 mls/hr Documented by: Magnesium Sulfate 2 gm/ Premix 50 mls @ 25 mls/hr IV ONETIME ONE Stop: 08/19/19 15:59 Last Admin: 08/19/19 13:52 Dose: 25 mls/hr Documented by: Potassium Chloride 10 meq/ (Premix) 100 mls @ 100 mls/hr IV Q1H [facility] Stop: 08/19/19 13:59 Last Admin: 08/19/19 12:57 Dose: 100 mls/hr Documented by: Lactated Ringer's (Ringers, Lactated) 1,000 mls [facility] Last Admin: 08/20/19 14:04 Dose: 50 mls/hr Documented by: Dextrose/Lactated Ringer's (Dextrose 5%-Lactated Ringers) 1,000 mls @ 50 mls/hr IV ASDIRECTED [facility] Last Admin: 08/20/19 18:35 Dose: 50 mls/hr Documented by: Magnesium Sulfate 2 gm/ Premix 50 mls @ 25 mls/hr IV ONETIME ONE Stop: 08/21/19 12:44 Last Admin: 08/21/19 11:21 Dose: 25 mls/hr Documented by: Potassium Chloride 10 meq/ (Premix) 100 mls @ 100 mls/hr IV Q1H [facility] Stop: 08/21/19 14:44 Last Admin: 08/21/19 15:20 Dose: 100 mls/hr Documented by: Potassium Phosphate 60 mmole/ (Sodium Chloride) 1,020 mls @ 102 mls/hr IV ONETIME ONE Stop: 08/22/19 00:59 Last Admin: 08/21/19 15:22 Dose: 102 mls/hr Documented by: Magnesium Sulfate 4 gm/ Premix 50 mls @ 12.5 mls/hr IV ONETIME ONE Stop: 08/23/19 14:54 Last Admin: 08/23/19 11:33 Dose: 12.5 mls/hr Documented by: Magnesium Sulfate 4 gm/ Premix 50 mls @ 12.5 mls/hr IV ONETIME ONE Stop: 08/24/19 13:29 Last Admin: 08/24/19 09:46 Dose: 12.5 mls/hr Documented by: Iopamidol (Isovue-370 (76%)) 100 ml IVPUSH ONETIME ONE Stop: 08/18/19 12:19 Last Admin: 08/18/19 12:38 Dose: 100 ml Documented by: Lorazepam (Ativan) 1 mg IVPUSH ONETIME ONE Stop: 08/15/19 13:22 Last Admin: 08/15/19 13:42 Dose: 1 mg Documented by: Lorazepam (Ativan) 2 mg IVPUSH Q15M PRN PRN Reason: CIWA >10 Stop: 08/19/19 14:00 Last Admin: 08/19/19 08:30 Dose: 2 mg Documented by: Lorazepam (Ativan) 2 mg IVPUSH Q1H [facility] Stop: 08/19/19 18:01 Last Admin: 08/19/19 17:54 Dose: Not Given Documented by: Lorazepam (Ativan) 2 mg IVPUSH Q4H [facility] Stop: 08/20/19 10:01 Last Admin: 08/20/19 10:02 Dose: 2 mg Documented by: Lorazepam (Ativan) 2 mg IVPUSH Q1H [facility] Stop: 08/19/19 19:01 Last Admin: 08/19/19 20:12 Dose: 2 mg Documented by: Lorazepam (Ativan) 1 mg IVPUSH Q4H [facility] Stop: 08/21/19 02:01 Last Admin: 08/21/19 02:04 Dose: 1 mg Documented by: Losartan Potassium (Cozaar) 12.5 mg PO DAILY [facility] Last Admin: 08/24/19 08:30 Dose: 12.5 mg Documented by: Magnesium Hydroxide (Milk Of Magnesia) 30 ml PO ONETIME ONE Stop: 08/25/19 07:23 Last Admin: 08/25/19 08:01 Dose: 30 ml Documented by: Magnesium Oxide (Magnesium Oxide) 400 mg PO BID [facility] Last Admin: 08/24/19 08:32 Dose: 400 mg Documented by: Magnesium Oxide (Magnesium Oxide) 800 mg PO BID [facility] Last Admin: 08/25/19 08:02 Dose: 800 mg Documented by: Magnesium Oxide (Magnesium Oxide) 400 mg PO ONETIME ONE Stop: 08/24/19 09:27 Last Admin: 08/24/19 09:46 Dose: 400 mg Documented by: Metoprolol Tartrate (Lopressor) 5 mg IVPUSH ONETIME ONE Stop: 08/16/19 12:29 Last Admin: 08/16/19 13:00 Dose: 5 mg Documented by: Non-Formulary Medication (Potassium Chloride [Potassium Chloride]) 20 meq PO DAILY [facility] Olanzapine (Zyprexa) 10 mg PO BEDTIME [facility] Last Admin: 08/16/19 21:19 Dose: Not Given Documented by: Olanzapine (Zyprexa) 10 mg IM BEDTIME [facility] Last Admin: 08/19/19 20:04 Dose: 10 mg Documented by: Olanzapine (Zyprexa) 10 mg PO BEDTIME [facility] Last Admin: 08/21/19 20:09 Dose: 10 mg Documented by: Olanzapine (Zyprexa) 5 mg PO ONETIME ONE Stop: 08/22/19 12:01 Last Admin: 08/22/19 12:36 Dose: 5 mg Documented by: Ondansetron HCl (Zofran) 4 mg IVPUSH ONETIME ONE Stop: 08/15/19 13:13 Last Admin: 08/15/19 13:43 Dose: 4 mg Documented by: Pantoprazole Sodium (Protonix) 40 mg PO ACBREAKFAST [facility] Pantoprazole Sodium (Protonix Iv) 40 mg IVPUSH Q12H [facility] Last Admin: 08/17/19 05:36 Dose: Not Given Documented by: Pantoprazole Sodium (Protonix Iv) 40 mg IVPUSH ONETIME ONE Stop: 08/16/19 21:18 Last Admin: 08/16/19 23:10 Dose: 40 mg Documented by: Pantoprazole Sodium (Protonix Iv) 40 mg IVPUSH Q12H [facility] Last Admin: 08/21/19 05:36 Dose: 40 mg Documented by: Potassium Chloride (Klor-Con M20) 20 meq PO BID [facility] Last Admin: 08/16/19 08:31 Dose: 20 meq Documented by: Potassium Chloride (Klor-Con M20) 40 meq PO BID [facility] Stop: 08/23/19 21:01 Last Admin: 08/23/19 21:29 Dose: 40 meq Documented by: Sodium Chloride (Saline Flush) 10 ml FLUSH ONETIME ONE Stop: 08/18/19 12:19 Last Admin: 08/18/19 12:38 Dose: 10 ml Documented by: Sodium Chloride (Saline Flush) 20 ml FLUSH ASDIRECTED [facility] Stop: 08/21/19 14:00 Last Admin: 08/21/19 13:37 Dose: 20 ml Documented by: Thiamine HCl (Vitamin B-1) 100 mg IVPUSH ONETIME ONE Stop: 08/15/19 13:15 Last Admin: 08/15/19 13:45 Dose: 100 mg Documented by: Thiamine HCl (Vitamin B-1) 100 mg IVPUSH ONETIME ONE Stop: 08/15/19 21:01 Last Admin: 08/15/19 20:01 Dose: 100 mg Documented by: Thiamine HCl (Vitamin B-1) 100 mg PO DAILY [facility] Last Admin: 08/18/19 11:10 Dose: Not Given Documented by: Thiamine HCl (Vitamin B-1) 100 mg PO BEDTIME [facility] Last Admin: 08/17/19 20:29 Dose: Not Given Documented by: Thiamine HCl (Vitamin B-1) 100 mg IVPUSH DAILY [facility] Last Admin: 08/21/19 09:16 Dose: 100 mg Documented by: - Exam Quality Assessment: Reports: DVT Prophylaxis, Skin Breakdown (Tinea on buttocks and groin ). Denies: Supplemental Oxygen, Urine Catheter General: Reports: Alert, Oriented, Cooperative HEENT: Reports: Pupils Equal, Pupils Reactive, Mucous Membr. Moist/[employer] Neck: Reports: Supple, Trachea Midline Lungs: Reports: Clear to Auscultation, Normal Respiratory Effort Cardiovascular: Reports: Regular Rhythm, Tachycardia GI/Abdominal Exam: Normal Bowel Sounds, Non-Tender, No Distention (Female) Exam: Deferred Rectal (Female) Exam: Deferred Back Exam: Reports: Normal Inspection, Full Range of Motion Extremities: Normal Inspection, Normal Range of Motion, Non-Tender, No Pedal Edema, Normal Capillary Refill Skin: Reports: Warm, Dry, Intact Neurological: Reports: No New Focal Deficit Psy/Mental Status: Reports: Alert, Normal Affect, Normal Mood Discharge Operative/Procedures - Procedures Performed CL Indication: IV access
== END 2019-08-27 16:58 | DRG 775 ==
LOC: JD.ED 12:55 → JD.ICU 15:40 → JD.MS 08-22 13:09
PROVIDERS: ADMIT Family Medicine; ATTEND Family Medicine
PROC: 06HY33Z Insertion of Infusion Device into Lower Vein, Percutaneous Approach (ICD-10-PCS; 2019-08-16)
PROC: 30233N1 Transfusion of Nonautologous Red Blood Cells into Peripheral Vein, Percutaneous Approach (ICD-10-PCS; principal; 2019-08-17)
PROC: 02H633Z Insertion of Infusion Device into Right Atrium, Percutaneous Approach (ICD-10-PCS; 2019-08-19)
PROC: B548ZZA Ultrasonography of Superior Vena Cava, Guidance (ICD-10-PCS; 2019-08-19)
DX: F10.231 Alcohol dependence with withdrawal delirium (principal); J69.0 Pneumonitis due to inhalation of food and vomit; E83.51 Hypocalcemia; E83.42 Hypomagnesemia; L43.9 Lichen planus, unspecified; R59.0 Localized enlarged lymph nodes; K92.2 Gastrointestinal hemorrhage, unspecified; Z20.828 Contact with and (suspected) exposure to other viral communicable diseases; D64.9 Anemia, unspecified; F41.1 Generalized anxiety disorder; F31.9 Bipolar disorder, unspecified; I10 Essential (primary) hypertension; E88.09 Other disorders of plasma-protein metabolism, not elsewhere classified; E87.6 Hypokalemia; D69.6 Thrombocytopenia, unspecified; F43.10 Post-traumatic stress disorder, unspecified; J45.909 Unspecified asthma, uncomplicated; K21.9 Gastro-esophageal reflux disease without esophagitis; F41.9 Anxiety disorder, unspecified; M81.0 Age-related osteoporosis without current pathological fracture; Z88.1 Allergy status to other antibiotic agents; Z88.8 Allergy status to other drugs, medicaments and biological substances; Z79.899 Other long term (current) drug therapy
CPT/HCPCS: 36415; 36430; 36600; 51702; 70553; 70553-26; 71045; 71045-26; 71046; 71046-26; 71275; 71275-26; 80048; 80053; 80306; 80307; 82306; 82652; 82803; 82962; 83605; 83735; 83970; 84100; 84145; 84484; 85014; 85018; 85025; 85049; 85362; 85379; 85384; 85610; 85730; 86850; 86900; 86901; 86922; 87040; 92523-GN; 92610-GN; 93005; 94660; 96361; 96365; 96375; 97110-GP; 97116-GP; 97162-GP; 97165-GO; 99285-25; A9270-GY; A9577; C9113; J0295; J0696; J1200; J1630; J1650; J2060; J2405; J3360; J3411; J3475; J3480; J3490; J7030; J7050; J7120; J7121; P9016; Q9967; U0002

== ENCOUNTER 2019-10-23 23:14 | Emergency (ER) | payer BC ==
[~2019-10-23 23:14] MED LIST: Midazolam 1 MG/ML 5 ML SDV ONE
--- NOTE | 2019-10-23 23:23 | EDM.PDOC ---
ED HPI GENERAL MEDICAL PROBLEM - General Chief Complaint: Neuro Symptoms/Deficits Stated Complaint: [facility] Time Seen by Provider: 10/23/19 23:15 Source of Information: Reports: Patient, EMS History Limitations: Reports: No Limitations - History of Present Illness INITIAL COMMENTS - FREE TEXT/NARRATIVE: This is a 63-year-old female. Apparently she called the ambulance because she was short of breath. The call went out as an asthma attack but when they arrived she was laying on her couch in her own urine. She had a trash can full of vomit next to her. She apparently has been on the scalp for the last 5 days she has not been drinking alcohol for the last 5 days and she denies any seizures. She is a known alcoholic. When they arrived she had slurred speech but no facial drooping and she could move her extremities. Her blood sugar was 146 at the time and her pulse ox was in the upper 80s and they put her on 6 L. Complaining of not being able to breathe and yet her breath sounds appear to be clear. She has no history of congestive heart failure. She complains of being very anxious her respiratory rate is 32/min her pulse ox on her cool and clammy finger is about 96-97%. Does appear to be rather pale with very cool fingers and toes. Patient denies any fever. She denies any significant congestion. But she is not a very good historian either. When the EMS arrived even though she had that she can of vomitus she denied vomiting. Currently her dog had been in the house with her and had peed and pooped all over the house as well. The patient does tell me she has been having some diarrhea over the last few days. She has a history of alcoholic abuse with delirium when she stops. Also a history of asthma. History of dehydration and upper GI bleed. History of low potassium and low magnesium. - Related Data Allergies Allergy/AdvReac Type Severity Reaction Status Date / Time levofloxacin [From Levaquin] Allergy Rash Verified 10/23/19 23:25 propoxyphene napsylate AdvReac Headache Verified 10/23/19 23:25 [From Darvocet-N] quetiapine fumarate AdvReac Confusion Verified 10/23/19 23:25 [From Seroquel] Home Meds: Home Meds Fluticasone Propion/Salmeterol [Advair 250-50 Diskus] 1 puff IH DAILY 05/24/16 [History] atorvaSTATin [Lipitor] 20 mg PO DAILY 05/24/16 [History] Albuterol Sulfate [Albuterol Sulfate Hfa] 2 puff PO Q4HR PRN 12/22/18 [History] DULoxetine [Cymbalta] 30 mg PO DAILY 12/22/18 [History] Losartan [Cozaar] 12.5 mg PO DAILY 12/22/18 [History] Omeprazole 20 mg PO ACBREAKFAST 12/22/18 [History] Potassium Chloride 20 meq PO DAILY 12/22/18 [History] Sucralfate [Carafate] 1 gm PO QID 12/22/18 [History] Folic Acid 1 mg PO DAILY #30 tablet 12/23/18 [Rx] Naltrexone 50 mg PO DAILY #30 tablet 12/23/18 [Rx] Thiamine [Vitamin B-1] 100 mg PO BEDTIME #30 tab 12/23/18 [Rx] Cranberry Fruit Extract [Cranberry] 0 mg PO DAILY 04/01/19 [History] Lutein/Minerals/Vit A,C & E [Ocuvite] 1 tab PO DAILY 04/01/19 [History] Magnesium 200 mg PO DAILY #30 tablet 04/01/19 [Rx] Montelukast [Singulair] 10 mg PO BEDTIME 04/01/19 [History] Ondansetron [Zofran ODT] 4 mg PO Q6H PRN #20 tab.dis 04/01/19 [Rx] Dexameth/Neomy/Polymyx B [Maxitrol Ophth Oint] 0 gm EYEBOTH TID tube 07/15/19 [Rx] Lactated Ringers [Ringers, Lactated] 75 ml IV ASDIRECTED bag 07/15/19 [Rx] Mirtazapine [Remeron] 15 mg PO BEDTIME tablet 07/15/19 [Rx] OLANZapine [ZyPREXA] 10 mg PO BEDTIME tablet 07/15/19 [Rx] diazePAM [Valium.] 10 mg PO Q8HR tablet 07/15/19 [Rx] Past Medical History HEENT History: Reports: Impaired Vision Other HEENT History: wears glasses Cardiovascular History: Reports: High Cholesterol, Hypertension Respiratory History: Reports: Asthma Gastrointestinal History: Reports: GERD Genitourinary History: Reports: UTI, Recurrent BACK WINDER History: Reports: Other (See Below) Other BACK WINDER History: Patient states she started menopause at 54 yoa Neurological History: Reports: Headaches, Chronic Other Neuro History: headaches Psychiatric History: Reports: Addiction, Anxiety, Bipolar, Depression, Eating Disorders Other Psychiatric History: eating disorder at age 14 Endocrine/Metabolic History: Reports: Osteoporosis Hematologic History: Reports: None Immunologic History: Reports: Other (See Below) Other Immunologic History: recurrent staph infections Oncologic (Cancer) History: Reports: None - Infectious Disease History Infectious Disease History: Reports: Chicken Pox, Measles, Mumps - Past Surgical History Head Surgeries/Procedures: Reports: None HEENT Surgical History: Reports: Adenoidectomy, Oral Surgery, Tonsillectomy, Other (See Below) GI Surgical History: Reports: Appendectomy Musculoskeletal Surgical History: Reports: ORIF, Shoulder Surgery, Other (See Below) Other Musculoskeletal Surgeries/Procedures:: wrist ORIF Social & Family History - Family History Family Medical History: Unobtainable (pt with altered mental status) Cardiac: Reports: None - Caffeine Use Caffeine Use: Reports: Coffee Other Caffeine Use: Unknown if ever used due to being currently intoxicated. 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 Denies: Fever, Chills HEENT: Reports: No Symptoms Respiratory: Reports: Shortness of Breath. Denies: Wheezing, Cough Cardiovascular: Denies: Chest Pain Endocrine: Reports: No Symptoms GI/Abdominal: Reports: Diarrhea, Nausea, Vomiting. Denies: Abdominal Pain : Reports: Other (Denies any symptoms) Musculoskeletal: Reports: Other (Planes of being generalized weak) Skin: Reports: Pallor, Diaphoresis, Other (Very cool extremities) Neurological: Reports: Weakness, Change in Speech Psychiatric: Reports: Agitation, Anxiety Hematologic/Lymphatic: Reports: Anemia ED EXAM, NEURO - Physical Exam Exam: See Below Exam Limited By: No Limitations General Appearance: Alert, Anxious, Moderate Distress, Other (Patient is very thin pale and anxious) Eye Exam: Bilateral Eye: Normal Inspection Ears: Normal External Exam, Normal Canal, Normal TMs Nose: Normal Inspection Throat/Mouth: Normal Lips, Other (Mucous membranes are very tacky. Speech sounds slightly slurred but I am not sure if that is because her mouth is dry.) Head Exam: Normocephalic Neck: Normal Inspection, Supple Respiratory/Chest: Lungs Clear, Normal Breath Sounds, Other (Complains of being short of breath but not appear to be in respiratory distress though she is breathing at 32 times a minute.) Cardiovascular: Regular Rate, Rhythm, No Murmur, Tachycardia GI/Abdominal: Soft, Other (She denies any tenderness on palpation of her abdomen, bowel sounds are quiet) Neurological: Alert, Other (Patient know she is in the ER and then at nighttime but does not know the day. She appears to be generalized weak but she is moving all 4 extremities equally. She does not have any facial drooping noted.) Back Exam: Full Range of Motion Extremities: Normal Inspection, Normal Range of Motion, Other (Extremities are very cool from her feet up to her knees and from her hands up to her elbows.) Psychiatric: Anxious Skin Exam: Diaphoretic, Other (Her extremities fingers and toes are almost cold.) EKG INTERPRETATION EKG Date: 10/23/19 Time: 23:45 EKG Interpretation Comments: EKG shows a sinus tachycardia rate of 136 she has lots of artifact but she does not appear to have any obvious ST or T wave changes or ST elevation. I do not see any obvious ischemia. Course - Vital Signs Last Recorded V/S: Last Vital Signs Temp 96.9 F 10/23/19 23:20 Pulse 140 H 10/23/19 23:20 Resp 37 H 10/23/19 23:20 BP 142/100 H 10/23/19 23:20 Pulse Ox 100 10/23/19 23:20 - Orders/Labs/Meds Orders: Active Orders 24 hr Category Date Time Status ABG [RT Arterial Blood Gases, ABG] [] Click to Edit Care 10/24/19 00:59 Active ABG [RT Arterial Blood Gases, ABG] [] Click to Edit Care 10/24/19 01:20 Active EKG 12 Lead [EKG Documentation Completion] [] STAT Care 10/23/19 23:15 Active Ventilator Assessment, ED [RT Ventilator ED, Adult] [ Care 10/24/19 01:39 Active ] ASDIRECTED CXR [Chest 1V Frontal] [CR] Stat Exams 10/23/19 23:17 Taken Head wo Cont [CT] Stat Exams 10/23/19 23:17 Ordered CORONAVIRUS COVID-19 DODIE [MOLEC] Stat Lab 10/23/19 23:36 Ordered CULTURE BLOOD [BC] Stat Lab 10/23/19 23:37 Received CULTURE BLOOD [BC] Stat Lab 10/23/19 23:50 Received RED BLOOD CELLS APH1 LR [BBK] Stat Lab 10/24/19 00:56 Results RED BLOOD CELLS APH2 LR [BBK] Stat Lab 10/24/19 00:56 Results RED BLOOD CELLS LP [BBK] Stat Lab 10/24/19 00:56 Results TYPE AND SCREEN [BBK] Stat Lab 10/24/19 00:56 Results UA W/EVAN RFLX IF INDICATED [URIN] Stat Lab 10/23/19 23:16 Ordered Blood Culture x2 Reflex Set [OM.PC] Stat Oth 10/23/19 23:37 Ordered Labs: Laboratory Tests 10/24/19 10/24/19 10/24/19 Range/Units 00:56 00:56 00:56 WBC 10.64 H (3.98-10.04) K/mm3 RBC 2.68 L (3.98-5.22) M/mm3 Hgb 7.7 L D (11.2-15.7) gm/dl Hct 27.3 L (34.1-44.9) % MCV 101.9 H D (79.4-94.8) fl MCH 28.7 (25.6-32.2) pg MCHC 28.2 L (32.2-35.5) g/dl RDW Std Deviation 66.3 H (36.4-46.3) fL Plt Count 123 L D (182-369) K/mm3 MPV 10.1 (9.4-12.3) fl Neut % (Auto) 46.9 (34.0-71.1) % Lymph % (Auto) 46.0 (19.3-51.7) % Overton % (Auto) 5.7 (4.7-12.5) % Eos % (Auto) 0.4 L (0.7-5.8) Baso % (Auto) 0.2 (0.1-1.2) % Neut # (Auto) 5.00 (1.56-6.13) K/mm3 Lymph # (Auto) 4.89 H (1.18-3.74) K/mm3 Overton # (Auto) 0.61 H (0.24-0.36) K/mm3 Eos # (Auto) 0.04 (0.04-0.36) K/mm3 Baso # (Auto) 0.02 (0.01-0.08) K/mm3 Manual Slide Review Abnormal smear PT (9.7-11.7) SECONDS INR Puncture Site ABG pH (7.35-7.45) ABG pCO2 (35.0-45.0) mmHg ABG pO2 (80.0-100.0) mmHg ABG HCO3 (22.0-26.0) meq/L ABG O2 Saturation (96.0-97.0) % ABG Base Excess (-2-2.0) O2 Delivery Device FiO2 (21.00-100.00) % Sodium 139 (136-145) mEq/L Potassium 5.4 H (3.5-5.1) mEq/L Chloride 104 (98-107) mEq/L Carbon Dioxide 13 L D (21-32) mEq/L Anion Gap 27.4 H (5-15) BUN 21 H (7-18) mg/dL Creatinine 1.2 H (0.55-1.02) mg/dL Est Cr Clr Drug Dosing TNP Estimated GFR (MDRD) 46 (>60) mL/min BUN/Creatinine Ratio 17.5 (14-18) Glucose 40 L (80-115) mg/dL Lactic Acid 20.8 H* (0.4-2.0) mmol/L Calcium 6.4 L D (8.5-10.1) mg/dL Magnesium (1.8-2.4) mg/dl Total Bilirubin 0.9 (0.2-1.0) mg/dL AST 914 H (15-37) U/L ALT 438 H (14-59) U/L Alkaline Phosphatase 68 (46-116) U/L Troponin I 0.095 H* (0.00-0.056) ng/mL NT-Pro-B Natriuret Pep (0-125) pg/mL Total Protein 3.8 L (6.4-8.2) g/dl Albumin 1.9 L (3.4-5.0) g/dl Globulin 1.9 gm/dL Albumin/Globulin Ratio 1.0 (1-2) Lipase 296 (73-393) U/L Ethyl Alcohol 0.00 (0.00) gm% Blood Type Gel Antibody Screen Crossmatch 10/24/19 10/24/19 10/24/19 Range/Units 00:56 00:56 00:56 WBC (3.98-10.04) K/mm3 RBC (3.98-5.22) M/mm3 Hgb (11.2-15.7) gm/dl Hct (34.1-44.9) % MCV (79.4-94.8) fl MCH (25.6-32.2) pg MCHC (32.2-35.5) g/dl RDW Std Deviation (36.4-46.3) fL Plt Count (182-369) K/mm3 MPV (9.4-12.3) fl Neut % (Auto) (34.0-71.1) % Lymph % (Auto) (19.3-51.7) % Overton % (Auto) (4.7-12.5) % Eos % (Auto) (0.7-5.8) Baso % (Auto) (0.1-1.2) % Neut # (Auto) (1.56-6.13) K/mm3 Lymph # (Auto) (1.18-3.74) K/mm3 Overton # (Auto) (0.24-0.36) K/mm3 Eos # (Auto) (0.04-0.36) K/mm3 Baso # (Auto) (0.01-0.08) K/mm3 Manual Slide Review PT 15.9 H (9.7-11.7) SECONDS INR 1.50 Puncture Site ABG pH (7.35-7.45) ABG pCO2 (35.0-45.0) mmHg ABG pO2 (80.0-100.0) mmHg ABG HCO3 (22.0-26.0) meq/L ABG O2 Saturation (96.0-97.0) % ABG Base Excess (-2-2.0) O2 Delivery Device FiO2 (21.00-100.00) % Sodium (136-145) mEq/L Potassium (3.5-5.1) mEq/L Chloride (98-107) mEq/L Carbon Dioxide (21-32) mEq/L Anion Gap (5-15) BUN (7-18) mg/dL Creatinine (0.55-1.02) mg/dL Est Cr Clr Drug Dosing Estimated GFR (MDRD) (>60) mL/min BUN/Creatinine Ratio (14-18) Glucose (80-115) mg/dL Lactic Acid (0.4-2.0) mmol/L Calcium (8.5-10.1) mg/dL Magnesium 2.1 (1.8-2.4) mg/dl Total Bilirubin (0.2-1.0) mg/dL AST (15-37) U/L ALT (14-59) U/L Alkaline Phosphatase (46-116) U/L Troponin I (0.00-0.056) ng/mL NT-Pro-B Natriuret Pep 1462 H (0-125) pg/mL Total Protein (6.4-8.2) g/dl Albumin (3.4-5.0) g/dl Globulin gm/dL Albumin/Globulin Ratio (1-2) Lipase (73-393) U/L Ethyl Alcohol (0.00) gm% Blood Type Gel Antibody Screen Crossmatch 10/24/19 10/24/19 10/24/19 Range/Units 00:56 00:56 00:57 WBC (3.98-10.04) K/mm3 RBC (3.98-5.22) M/mm3 Hgb (11.2-15.7) gm/dl Hct (34.1-44.9) % MCV (79.4-94.8) fl MCH (25.6-32.2) pg MCHC (32.2-35.5) g/dl RDW Std Deviation (36.4-46.3) fL Plt Count (182-369) K/mm3 MPV (9.4-12.3) fl Neut % (Auto) (34.0-71.1) % Lymph % (Auto) (19.3-51.7) % Overton % (Auto) (4.7-12.5) % Eos % (Auto) (0.7-5.8) Baso % (Auto) (0.1-1.2) % Neut # (Auto) (1.56-6.13) K/mm3 Lymph # (Auto) (1.18-3.74) K/mm3 Overton # (Auto) (0.24-0.36) K/mm3 Eos # (Auto) (0.04-0.36) K/mm3 Baso # (Auto) (0.01-0.08) K/mm3 Manual Slide Review PT (9.7-11.7) SECONDS INR Puncture Site Rt femoral ABG pH 6.80 L* (7.35-7.45) ABG pCO2 65.4 H (35.0-45.0) mmHg ABG pO2 347.0 H* (80.0-100.0) mmHg ABG HCO3 9.5 L (22.0-26.0) meq/L ABG O2 Saturation 98.3 H (96.0-97.0) % ABG Base Excess -23.4 L (-2-2.0) O2 Delivery Device Ventilator FiO2 (21.00-100.00) % Sodium (136-145) mEq/L Potassium (3.5-5.1) mEq/L Chloride (98-107) mEq/L Carbon Dioxide (21-32) mEq/L Anion Gap (5-15) BUN (7-18) mg/dL Creatinine (0.55-1.02) mg/dL Est Cr Clr Drug Dosing Estimated GFR (MDRD) (>60) mL/min BUN/Creatinine Ratio (14-18) Glucose (80-115) mg/dL Lactic Acid (0.4-2.0) mmol/L Calcium (8.5-10.1) mg/dL Magnesium (1.8-2.4) mg/dl Total Bilirubin (0.2-1.0) mg/dL AST (15-37) U/L ALT (14-59) U/L Alkaline Phosphatase (46-116) U/L Troponin I (0.00-0.056) ng/mL NT-Pro-B Natriuret Pep (0-125) pg/mL Total Protein (6.4-8.2) g/dl Albumin (3.4-5.0) g/dl Globulin gm/dL Albumin/Globulin Ratio (1-2) Lipase (73-393) U/L Ethyl Alcohol (0.00) gm% Blood Type O POSITIVE Gel Antibody Screen Negative Crossmatch See Detail See Detail 10/24/19 Range/Units 01:19 WBC (3.98-10.04) K/mm3 RBC (3.98-5.22) M/mm3 Hgb (11.2-15.7) gm/dl Hct (34.1-44.9) % MCV (79.4-94.8) fl MCH (25.6-32.2) pg MCHC (32.2-35.5) g/dl RDW Std Deviation (36.4-46.3) fL Plt Count (182-369) K/mm3 MPV (9.4-12.3) fl Neut % (Auto) (34.0-71.1) % Lymph % (Auto) (19.3-51.7) % Overton % (Auto) (4.7-12.5) % Eos % (Auto) (0.7-5.8) Baso % (Auto) (0.1-1.2) % Neut # (Auto) (1.56-6.13) K/mm3 Lymph # (Auto) (1.18-3.74) K/mm3 Overton # (Auto) (0.24-0.36) K/mm3 Eos # (Auto) (0.04-0.36) K/mm3 Baso # (Auto) (0.01-0.08) K/mm3 Manual Slide Review PT (9.7-11.7) SECONDS INR Puncture Site Rt femoral ABG pH 6.81 L* (7.35-7.45) ABG pCO2 65.9 H (35.0-45.0) mmHg ABG pO2 568.0 H* (80.0-100.0) mmHg ABG HCO3 9.9 L (22.0-26.0) meq/L ABG O2 Saturation 98.7 H (96.0-97.0) % ABG Base Excess -23.0 L (-2-2.0) O2 Delivery Device Ventilator FiO2 100.00 (21.00-100.00) % Sodium (136-145) mEq/L Potassium (3.5-5.1) mEq/L Chloride (98-107) mEq/L Carbon Dioxide (21-32) mEq/L Anion Gap (5-15) BUN (7-18) mg/dL Creatinine (0.55-1.02) mg/dL Est Cr Clr Drug Dosing Estimated GFR (MDRD) (>60) mL/min BUN/Creatinine Ratio (14-18) Glucose (80-115) mg/dL Lactic Acid (0.4-2.0) mmol/L Calcium (8.5-10.1) mg/dL Magnesium (1.8-2.4) mg/dl Total Bilirubin (0.2-1.0) mg/dL AST (15-37) U/L ALT (14-59) U/L Alkaline Phosphatase (46-116) U/L Troponin I (0.00-0.056) ng/mL NT-Pro-B Natriuret Pep (0-125) pg/mL Total Protein (6.4-8.2) g/dl Albumin (3.4-5.0) g/dl Globulin gm/dL Albumin/Globulin Ratio (1-2) Lipase (73-393) U/L Ethyl Alcohol (0.00) gm% Blood Type Gel Antibody Screen Crossmatch Meds: Medications Discontinued Medications Generic Name Dose Route Start Last Admin Trade Name Abelardo PRN Reason Stop Dose Admin Epinephrine HCl Confirm 10/24/19 00:29 Epinephrine 1:10,000 Administered 10/24/19 00:30 Dose 1 mg .ROUTE .STK-MED ONE Epinephrine HCl Confirm 10/24/19 00:34 Epinephrine 1:10,000 Administered 10/24/19 00:35 Dose 1 mg .ROUTE .STK-MED ONE Fentanyl Confirm 10/24/19 01:19 Sublimaze Administered 10/24/19 01:20 Dose 2,500 mcg .ROUTE .STK-MED ONE Dextrose/Water Confirm 10/24/19 00:34 Dextrose 5% In Water Administered 10/24/19 00:35 Dose 250 mls @ as directed .ROUTE .STK-MED ONE Sodium Chloride Confirm 10/24/19 00:46 Normal Saline Administered 10/24/19 00:47 Dose 50 mls @ as directed .ROUTE .STK-MED ONE Sodium Chloride Confirm 10/24/19 01:20 Normal Saline (Advbag) Administered 10/24/19 01:21 Dose 250 mls @ as directed .ROUTE .STK-MED ONE Sodium Chloride Confirm 10/24/19 01:20 Normal Saline Administered 10/24/19 01:21 Dose 250 mls @ as directed .ROUTE .STK-MED ONE Sodium Chloride Confirm 10/24/19 01:47 Normal Saline Administered 10/24/19 01:48 Dose 100 mls @ as directed .ROUTE .STK-MED ONE Midazolam HCl Confirm 10/24/19 00:45 Versed 5 Mg/Ml Administered 10/24/19 00:46 Dose 50 mg .ROUTE .STK-MED ONE Midazolam HCl Confirm 10/24/19 01:46 Versed 5 Mg/Ml Administered 10/24/19 01:47 Dose 100 mg .ROUTE .STK-MED ONE Norepinephrine Bitartrate Confirm 10/24/19 00:34 Levophed Administered 10/24/19 00:35 Dose 4 mg .ROUTE .STK-MED ONE Sodium Bicarbonate Confirm 10/24/19 01:38 Sodium Bicarbonate 8.4% Administered 10/24/19 01:39 Dose 50 meq .ROUTE .STK-MED ONE - Re-Assessments/Exams Free Text/Narrative Re-Assessment/Exam: 10/24/19 01:51 After trying repetitively to get a peripheral IV it was decided to put a central line in. To Dr. Parada and she agreed to come to the ER to put the central line in. However approximately 5 minutes prior to her arrival the patient had a seizure and quit breathing and then she vomited red blood. She was noted at that time when the nurses were cleaning her up that she had [id number] stools as well. A code was instituted immediately. She still had a pulse but she was not breathing and so we bagged her and then she lost her pulse. We moved her into trauma room 2 continuing CPR. We put an IO in her right lower extremity. We got a mechanical compressor to do chest compressions. As I was attempting to intubate her copious amounts of brown dark blood swelled up in her pharynx and spilled out of her mouth. We suctioned her with 2 suctions to try to keep up with the blood coming out of her mouth. Her Tal arrived and she was able to eventually get a 6.5 ET tube. Initially it seemed to be in the right stem bronchus but it was pulled out a couple of centimeters and she had equal breath signs and good chest rise equally. O2 detector went from purple to yellow. We continued with ACLS protocol with epinephrine and a single bicarb initially. She would intermittently have a pulse that would fade and would resume compressions. We finally started a Levophed drip 40 mics and that seemed to produce a blood pressure of 66/54 and a pulse. Pressure continued to rise with a steady pulse where she is at a map of about 77 prior to leaving the ER. Placed on a Versed drip at 20 mg/h titrated for sedation. Also on a fentanyl drip at 100 mics titrated for sedation. She did receive 2 units of negative blood in the ER and a 3rd unit was being transfused as I dictate this note. She is on vent settings of rate of 24 PEEP of 12 with an FiO2 of 50%. Pulse ox is at 97%. Her initial blood work showed a hemoglobin of 7.7 but she had a pH of 6.8. An additional bicarb was given to her. I called [facility] and [facility] and all ICU beds are full. I called [facility] ICU beds are full. I spoke to [facility] in [place] and all ICU beds are full. I spoke with [facility] and all ICU beds are full. I spoke to [facility] where they have some available ICU beds and I spoke to Dr. Watt the semi driver. He agrees to accept her in transport for further evaluation and treatment. She will be flown by fixed wing to [facility] to [place]. 10/24/19 02:29 If no labs show a potassium of 5.4, anion gap at 27.4, creatinine of 1.2 and a BUN of 21. Her glucose was 40 troponin was 0.095 and she had elevated liver enzymes. 10/24/19 03:50 Lactic acid was noted to be 20.8. Departure - Departure Time of Disposition: 02:05 Disposition: DC/Tfer to Acute Hospital 02 Condition: Critical Clinical Impression: Upper GI hemorrhage, Cardiopulmonary arrest with successful resuscitation, Chronic alcohol abuse, Airway intubation performed without difficulty, Severe hypotension, Hypovolemia due to hemorrhage, Hypovolemia due to dehydration, Severe anemia - Discharge Information Sepsis Event Note (ED) - Focused Exam Vital Signs: Vital Signs Temp Pulse Pulse Resp BP Pulse Ox 10/23/19 23:20 96.5 F L 133 H 140 H 37 H 141/100 H 100 ED Communication - ED Communication Date/Time Date: 10/24/19 Time Called: :20 - Discussed Case With (1) Discussed Case With (1): Admitting Provider Person/s Notified (1): Dr. Watt (He agrees to accept the patient to [facility] in [place] for further evaluation and treatment) - My Orders Last 24 Hours: My Active Orders 10/23/19 23:15 EKG 12 Lead [EKG Documentation Completion] [RC] STAT 10/23/19 23:16 UA W/EVAN RFLX IF INDICATED [URIN] Stat 10/23/19 23:17 CXR [Chest 1V Frontal] [CR] Stat Head wo Cont [CT] Stat 10/23/19 23:36 CORONAVIRUS COVID-19 DODIE [MOLEC] Stat 10/23/19 23:37 CULTURE BLOOD [BC] Stat Blood Culture x2 Reflex Set [OM.PC] Stat 10/23/19 23:50 CULTURE BLOOD [BC] Stat 10/24/19 00:56 RED BLOOD CELLS APH1 LR [BBK] Stat RED BLOOD CELLS APH2 LR [BBK] Stat RED BLOOD CELLS LP [BBK] Stat TYPE AND SCREEN [BBK] Stat 10/24/19 01:20 ABG [RT Arterial Blood Gases, ABG] [RC] Click to Edit 10/24/19 01:39 Ventilator Assessment, ED [RT Ventilator ED, Adult] [RC] ASDIRECTED - Assessment/Plan Last 24 Hours: My Active Orders 10/23/19 23:15 EKG 12 Lead [EKG Documentation Completion] [RC] STAT 10/23/19 23:16 UA W/EVAN RFLX IF INDICATED [URIN] Stat 10/23/19 23:17 CXR [Chest 1V Frontal] [CR] Stat Head wo Cont [CT] Stat 10/23/19 23:36 CORONAVIRUS COVID-19 DODIE [MOLEC] Stat 10/23/19 23:37 CULTURE BLOOD [BC] Stat Blood Culture x2 Reflex Set [OM.PC] Stat 10/23/19 23:50 CULTURE BLOOD [BC] Stat 10/24/19 00:56 RED BLOOD CELLS APH1 LR [BBK] Stat RED BLOOD CELLS APH2 LR [BBK] Stat RED BLOOD CELLS LP [BBK] Stat TYPE AND SCREEN [BBK] Stat 10/24/19 01:20 ABG [RT Arterial Blood Gases, ABG] [RC] Click to Edit 10/24/19 01:39 Ventilator Assessment, ED [RT Ventilator ED, Adult] [RC] ASDIRECTED
[2019-10-23 23:29] VITALS: BP 141/100; PULSE 133
[2019-10-24] MEDS ORDERED: fentaNYL 2,500 MCG in Sodium Chloride 0.9% 200 ML IV SCH ×2
[2019-10-24] MEDS ORDERED: EPINEPHrine 1:10,000 1 MG/10 ML Syringe ONE ×8 (00:29→00:34)
[2019-10-24] MEDS ORDERED: Dextrose 5% in Water 250 ML ONE (00:34)
[2019-10-24] MEDS ORDERED: Norepinephrine 4 MG/4 ML SDV ONE (00:34)
[2019-10-24] MEDS ORDERED: Midazolam 5 MG/ML 10 ML MDV ONE ×2 (00:45→01:46)
[2019-10-24] MEDS ORDERED: Sodium Chloride 0.9% 50 ML ONE (00:46)
[2019-10-24] MEDS ORDERED: fentaNYL 2500 MCG/50 ML SDV ONE (01:19)
[2019-10-24] MEDS ORDERED: Sodium Chloride 0.9% 250 ML ONE ×2 (01:20)
--- NOTE | 2019-10-24 01:25 | PCM.CODE ---
H&P History of Present Illness - General Date of Service: 10/24/19 - History of Present Illness Initial Comments - Free Text/Narative: This is a well-known 63-year-old female with extensive past medical history including recurrent GI bleeds and alcohol abuse with brought to the emergency department after she called EMS complaining of shortness of breath. Upon EMS arrival to her house patient was laying on her couch having lost urine continence and with a trash can full of vomit on her side. As per nursing reports she had been laying on her couch approximately 5 days, last drink 5 days prior, no seizures. Pulse ox 96 to 97%, respiratory rate 32 per minute. - Related Data Allergies/Adverse Reactions: Allergies Allergy/AdvReac Type Severity Reaction Status Date / Time levofloxacin [From Levaquin] Allergy Rash Verified 10/23/19 23:25 propoxyphene napsylate AdvReac Headache Verified 10/23/19 23:25 [From Darvocet-N] quetiapine fumarate AdvReac Confusion Verified 10/23/19 23:25 [From Seroquel] Home Medications: Home Meds Fluticasone Propion/Salmeterol [Advair 250-50 Diskus] 1 puff IH DAILY 05/24/16 [History] atorvaSTATin [Lipitor] 20 mg PO DAILY 05/24/16 [History] Albuterol Sulfate [Albuterol Sulfate Hfa] 2 puff PO Q4HR PRN 12/22/18 [History] DULoxetine [Cymbalta] 30 mg PO DAILY 12/22/18 [History] Losartan [Cozaar] 12.5 mg PO DAILY 12/22/18 [History] Omeprazole 20 mg PO ACBREAKFAST 12/22/18 [History] Potassium Chloride 20 meq PO DAILY 12/22/18 [History] Sucralfate [Carafate] 1 gm PO QID 12/22/18 [History] Folic Acid 1 mg PO DAILY #30 tablet 12/23/18 [Rx] Naltrexone 50 mg PO DAILY #30 tablet 12/23/18 [Rx] Thiamine [Vitamin B-1] 100 mg PO BEDTIME #30 tab 12/23/18 [Rx] Cranberry Fruit Extract [Cranberry] 0 mg PO DAILY 04/01/19 [History] Lutein/Minerals/Vit A,C & E [Ocuvite] 1 tab PO DAILY 04/01/19 [History] Magnesium 200 mg PO DAILY #30 tablet 04/01/19 [Rx] Montelukast [Singulair] 10 mg PO BEDTIME 04/01/19 [History] Ondansetron [Zofran ODT] 4 mg PO Q6H PRN #20 tab.dis 04/01/19 [Rx] Dexameth/Neomy/Polymyx B [Maxitrol Ophth Oint] 0 gm EYEBOTH TID tube 07/15/19 [Rx] Lactated Ringers [Ringers, Lactated] 75 ml IV ASDIRECTED bag 07/15/19 [Rx] Mirtazapine [Remeron] 15 mg PO BEDTIME tablet 07/15/19 [Rx] OLANZapine [ZyPREXA] 10 mg PO BEDTIME tablet 07/15/19 [Rx] diazePAM [Valium.] 10 mg PO Q8HR tablet 07/15/19 [Rx] Exam - Exam Exam: See Below Reason Not Obtained: Undergoing ACLS upon my arrival - Vital Signs Vital Signs: Last Vital Signs Temp 96.9 F 10/23/19 23:20 Pulse 140 H 10/23/19 23:20 Resp 37 H 10/23/19 23:20 BP 142/100 H 10/23/19 23:20 Pulse Ox 100 10/23/19 23:20 - Exam Quality Assessment: Other (undergoing CPR upon my arrival) Central Line - Central Line Insertion Central Line Indication: IV access Site: internal jugular (R) Prep: CDC/MBT Guidelines, Sterile Drapes, Chlorhexidine Lumen: triple Gauge: 7Fr Ultrasound guided: Yes Guidewire and dilator removed intact: Yes Micropuncture kit used: Yes Secured with suture: Yes Complications: No Post placement confirmation: CXR, all ports aspirated, all ports flushed CXR post-procedure: no pneumothorax, no hemothorax Dressing applied: by provider Endotracheal Intubation - Endotracheal Intubation Time of Intubation: 00:25 ET Intubation Indication: Respiratory Failure, Airway Protection, Cardiac Arrest Preparation: Suction, Balloon Tested, BVM Set Up Airway Assessment: Profuse Secretions Pre-Oxygenation: 100% FiO2 Placement: Orotracheal Cords Visualized: Yes, Grade 1 ETT Size In mm: 6.5 Number of Attempts: 2 Confirmed By: Bilateral Breath Sounds, Chest Xray Tube Secured By: By Provider Course - Orders/Labs/Meds Labs: CBC: WBC 10.64, hemoglobin 7.7, hematocrit 27.3, platelets 123 Coagulation studies: PT 15.9, INR 1.5 ABGs from right femoral 6.81/65.9/568/9.9/98.7 - Radiology Interpretation Free Text/Narrative:: Portable chest x-ray with ET tube right main bronchus, central line with adequate placement and OG tube within the gastric cavity - Re-Assessments/Exams Free Text/Narrative Re-Assessment/Exam: TIMELINE Midnight: - Large melenous stool - Nursing started to clean her and she became unresponsive 00:06 - CODE BLUE CALLED 00:10-00:16 - Initial intubation attempt by ED physician complicated with large coffee ground emesis episode - Continued to have emesis, required active suctioning for endotracheal intubation - 2 rounds of epinephrine - 1 amp of sodium bicarb - 00:16--> ROSC 00:25 - PEA - 5 rounds of epinephrine - Central line placed on right internal jugular 00:39 - Levophed started 00:42 - Transfused 3u PRBCs 00:51 - Biting tube--> STAT Versed - Versed drip started - 2 amps of sodium bicarb Transferred out to [facility] [place] at 2:07 Critical Care Note - Critical Care Note Total Time (mins): 180 Comments: Was called in by ED physician due to inability to obtain IV access requesting for central line placement Upon arrival to emergency department found patient undergoing ACLS protocol. As per ED physician patient had a large coffee-ground emesis after which they were not able to find a pulse for which ACLS protocol was started Intubation was attempted by ED physician however successful due to significant coffee-ground emesis and retropharyngeal space. Attempted intubation myself, first attempt unsuccessful Second attempt with grade 1 visualization of the vocal cords, no gastric secretions seen within the airway. Proceeded to place right internal jugular central line Ordered 1. 2 L LR bolus 2. 2 units packed RBCs 3. Norepinephrine drip Total CPR time 36 minutes Later on patient started biting on tube Required Versed drip prior to transfer
[2019-10-24] MEDS ORDERED: Sodium Bicarbonate 8.4% 50 MEQ/50 ML Syringe ONE ×4 (01:38)
[2019-10-24] MEDS ORDERED: Sodium Chloride 0.9% 100 ML ONE (01:47)
--- NOTE | 2019-10-24 09:08 | CR ---
Chest: Frontal view of the chest was obtained. Comparison: Prior chest x-ray of 08/19/19. Heart size and mediastinum are normal. Previous right shoulder surgery is noted. Right jugular line is noted with tip lying near the right atrial superior vena cava junction within the superior vena cava. Endotracheal tube is seen which is at the roberto and needs to be withdrawn by about 2.8 cm. Nasogastric tube is seen which courses off the inferior edge of the film into the stomach. Lungs are clear with no acute parenchymal change. Small granuloma is noted within the right lung base. Impression: 1. Tip of endotracheal tube at the level the roberto. If this has not been withdrawn, recommend withdrawal by about 2.8 cm. 2. Right jugular line which is stable. 3. Nasogastric tube with tip lying within the stomach and coursing off the inferior edge of the study. 4. Nothing acute is otherwise seen. Diagnostic code #3 This report was dictated in MDT
== END 2019-10-24 02:10 ==
LOC: JD.ED 23:14
DX: E86.0 Dehydration (principal); E86.1 Hypovolemia; F10.10 Alcohol abuse, uncomplicated; I95.9 Hypotension, unspecified; D64.9 Anemia, unspecified; R00.0 Tachycardia, unspecified; I10 Essential (primary) hypertension; E78.00 Pure hypercholesterolemia, unspecified; F41.9 Anxiety disorder, unspecified; F31.9 Bipolar disorder, unspecified; Z88.8 Allergy status to other drugs, medicaments and biological substances; Z79.899 Other long term (current) drug therapy
CPT/HCPCS: 31500; 36415; 36430; 36556; 36600; 36680; 43752; 51702; 71045; 80053; 80307; 82803; 82962; 83605; 83690; 83735; 83880; 84484; 85025; 85610; 86850; 86900; 86901; 86922; 87040; 92950; 93005; 96365; 96366; 96368; 99291; 99292; J0171; J2250; J3010; J7050; J7060; P9016; 93010

== ENCOUNTER 2019-11-09 14:35 | Emergency (ER) | payer BC ==
[2019-11-09 14:46] VITALS: BP 128/73; PULSE 110
[2019-11-09] MEDS ORDERED: Ondansetron 4 MG/2 ML SDV IVPUSH ONE (15:04)
[2019-11-09] MEDS ORDERED: Thiamine 200 MG/2 ML MDV IVPUSH ONE (15:06)
[2019-11-09] MEDS ORDERED: Lactated Ringers 1,000 ML IV SCH ×2 (15:15→17:00)
--- NOTE | 2019-11-09 15:20 | EDM.PDOC ---
ED HPI GENERAL MEDICAL PROBLEM - General Source of Information: Reports: EMS History Limitations: Reports: Altered Mental Status, Intoxication - History of Present Illness Onset: Gradual Duration: Day(s): Severity: Severe Improves with: Reports: None Worsens with: Reports: None Associated Symptoms: Reports: No Other Symptoms <Axel Ng - Last Filed: 11/09/19 19:00> <Hudson Bryant - Last Filed: 11/10/19 06:36> - General Chief Complaint: Drug or Alcohol Abuse Stated Complaint: [facility] Time Seen by Provider: 11/09/19 14:45 - History of Present Illness INITIAL COMMENTS - FREE TEXT/NARRATIVE: The patient presents by [place] [facility] for alcohol intoxication. A call went out for a female barely breathing. They found her passed out in her home with multiple empty alcohol bottles. She had shallow and slow respirations. She was recently discharged from [facility] in [place]. She was sent from here on October 22 for alcohol intoxication and GI bleed. She was very sick and a few times her pulse was lost. CPR was done here and she did well in [place] and was admitted. It appears she started drinking again. She will open her eyes but does not talk to me. (Axel Ng) - Related Data Allergies Allergy/AdvReac Type Severity Reaction Status Date / Time levofloxacin [From Levaquin] Allergy Rash Verified 10/23/19 23:25 propoxyphene napsylate AdvReac Headache Verified 10/23/19 23:25 [From Darvocet-N] quetiapine fumarate AdvReac Confusion Verified 10/23/19 23:25 [From Seroquel] Home Meds: Home Meds Fluticasone Propion/Salmeterol [Advair 250-50 Diskus] 1 puff IH DAILY 05/24/16 [History] atorvaSTATin [Lipitor] 20 mg PO DAILY 05/24/16 [History] Albuterol Sulfate [Albuterol Sulfate Hfa] 2 puff PO Q4HR PRN 12/22/18 [History] DULoxetine [Cymbalta] 30 mg PO DAILY 12/22/18 [History] Losartan [Cozaar] 12.5 mg PO DAILY 12/22/18 [History] Omeprazole 20 mg PO ACBREAKFAST 12/22/18 [History] Potassium Chloride 20 meq PO DAILY 12/22/18 [History] Sucralfate [Carafate] 1 gm PO QID 12/22/18 [History] Folic Acid 1 mg PO DAILY #30 tablet 12/23/18 [Rx] Naltrexone 50 mg PO DAILY #30 tablet 12/23/18 [Rx] Thiamine [Vitamin B-1] 100 mg PO BEDTIME #30 tab 12/23/18 [Rx] Cranberry Fruit Extract [Cranberry] 0 mg PO DAILY 04/01/19 [History] Lutein/Minerals/Vit A,C & E [Ocuvite] 1 tab PO DAILY 04/01/19 [History] Magnesium 200 mg PO DAILY #30 tablet 04/01/19 [Rx] Montelukast [Singulair] 10 mg PO BEDTIME 04/01/19 [History] Ondansetron [Zofran ODT] 4 mg PO Q6H PRN #20 tab.dis 04/01/19 [Rx] Dexameth/Neomy/Polymyx B [Maxitrol Ophth Oint] 0 gm EYEBOTH TID tube 07/15/19 [Rx] Lactated Ringers [Ringers, Lactated] 75 ml IV ASDIRECTED bag 07/15/19 [Rx] Mirtazapine [Remeron] 15 mg PO BEDTIME tablet 07/15/19 [Rx] OLANZapine [ZyPREXA] 10 mg PO BEDTIME tablet 07/15/19 [Rx] diazePAM [Valium.] 10 mg PO Q8HR tablet 07/15/19 [Rx] Ondansetron [Zofran ODT] 1 tab PO Q8H PRN #10 tab.dis 11/10/19 [Rx] Past Medical History HEENT History: Reports: Impaired Vision Other HEENT History: wears glasses Cardiovascular History: Reports: High Cholesterol, Hypertension Respiratory History: Reports: Asthma Gastrointestinal History: Reports: GERD Genitourinary History: Reports: UTI, Recurrent TRAVELING AUDITOR History: Reports: Other (See Below) Other TRAVELING AUDITOR History: Patient states she started menopause at 54 yoa Neurological History: Reports: Headaches, Chronic Other Neuro History: headaches Psychiatric History: Reports: Addiction, Anxiety, Bipolar, Depression, Eating Disorders Other Psychiatric History: eating disorder at age 14 Endocrine/Metabolic History: Reports: Osteoporosis Hematologic History: Reports: None Immunologic History: Reports: Other (See Below) Other Immunologic History: recurrent staph infections Oncologic (Cancer) History: Reports: None - Infectious Disease History Infectious Disease History: Reports: Chicken Pox, Measles, Mumps - Past Surgical History Head Surgeries/Procedures: Reports: None HEENT Surgical History: Reports: Adenoidectomy, Oral Surgery, Tonsillectomy, Other (See Below) GI Surgical History: Reports: Appendectomy Musculoskeletal Surgical History: Reports: ORIF, Shoulder Surgery, Other (See Below) Other Musculoskeletal Surgeries/Procedures:: wrist ORIF <Axel Ng - Last Filed: 11/09/19 19:00> Social & Family History - Family History Family Medical History: Unobtainable Cardiac: Reports: None - Caffeine Use Caffeine Use: Reports: Coffee Other Caffeine Use: Unknown if ever used due to being currently intoxicated. 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[employer]) <Axel Ng - Last Filed: 11/09/19 19:00> ED ROS GENERAL - Review of Systems Review Of Systems: Unable To Obtain Reason Not Obtained: Patient will not talk to me <Axel Ng - Last Filed: 11/09/19 19:00> - Physical Exam Exam: See Below Exam Limited By: Altered Mental Status General Appearance: Other (sleeping and will try to open her eyes and talk when I talk to her) Ears: Normal External Exam Nose: Normal Inspection Head Exam: Atraumatic, Normocephalic Neck: Normal Inspection, Supple, Non-Tender Respiratory/Chest: No Respiratory Distress, Lungs Clear, Normal Breath Sounds Cardiovascular: Regular Rate, Rhythm, No Edema, No Murmur GI/Abdominal: Soft, Non-Tender, No Organomegaly, No Mass Neuro Exam (Abbreviated): Other (Sleepy. She will open her eyes and try to talk when I talk to her.) <Axel Ng - Last Filed: 11/09/19 19:00> Course <Axel Ng A - Last Filed: 11/09/19 19:00> <Hudson Bryant - Last Filed: 11/10/19 06:36> - Vital Signs Last Recorded V/S: Last Vital Signs Temp 36.1 C 11/09/19 14:35 Pulse 110 H 11/09/19 14:35 Resp 14 11/09/19 14:35 BP 128/73 11/09/19 14:35 Pulse Ox 88 L 11/09/19 14:35 - Orders/Labs/Meds Orders: Active Orders 24 hr Category Date Time Status Cardiac Monitoring [RC] . DIRECTED Care 11/09/19 15:04 Active Oxygen Therapy [RC] PRN Care 11/09/19 15:04 Active Oxygen Therapy, ED [RC] ASDIRECTED Care 11/09/19 14:56 Active Sodium Chloride 0.45% with KCl [1/2 NS with 20 mEq KCl] Med 11/10/19 03:30 Active 1,000 ml IV ASDIRECTED ED Antiemetic Medication Reflex [OM.PC] Stat Oth 11/09/19 15:05 Ordered Medication Orders Potassium Chloride/Sodium Chloride (1/2 Ns With 20 Meq Kcl) 1,000 mls @ 100 mls/hr IV ASDIRECTED STEPHANE Last Admin: 11/10/19 03:51 Dose: 100 mls/hr Documented by: AMADOR Labs: Laboratory Tests 11/09/19 11/09/19 11/09/19 Range/Units 15:30 15:30 15:50 WBC 4.36 (3.98-10.04) K/mm3 RBC 4.18 (3.98-5.22) M/mm3 Hgb 11.8 D (11.2-15.7) gm/dl Hct 38.6 (34.1-44.9) % MCV 92.3 D (79.4-94.8) fl MCH 28.2 (25.6-32.2) pg MCHC 30.6 L (32.2-35.5) g/dl RDW Std Deviation 59.8 H (36.4-46.3) fL Plt Count 690 H D (182-369) K/mm3 MPV 8.0 L (9.4-12.3) fl Neut % (Auto) 52.1 (34.0-71.1) % Lymph % (Auto) 39.2 (19.3-51.7) % App[place] % (Auto) 5.7 (4.7-12.5) % Eos % (Auto) 0.5 L (0.7-5.8) Baso % (Auto) 2.3 H (0.1-1.2) % Neut # (Auto) 2.27 (1.56-6.13) K/mm3 Lymph # (Auto) 1.71 (1.18-3.74) K/mm3 Appling # (Auto) 0.25 (0.24-0.36) K/mm3 Eos # (Auto) 0.02 L (0.04-0.36) K/mm3 Baso # (Auto) 0.10 H (0.01-0.08) K/mm3 Manual Slide Review Abnormal smear Sodium 151 H D (136-145) mEq/L Potassium 2.9 L D (3.5-5.1) mEq/L Chloride 113 H (98-107) mEq/L Carbon Dioxide 27 D (21-32) mEq/L Anion Gap 13.9 (5-15) BUN 4 L (7-18) mg/dL Creatinine 0.5 L (0.55-1.02) mg/dL Est Cr Clr Drug Dosing TNP Estimated GFR (MDRD) > 60 (>60) mL/min BUN/Creatinine Ratio 8.0 L (14-18) Glucose 93 (80-115) mg/dL Calcium 7.3 L (8.5-10.1) mg/dL Magnesium 1.9 (1.8-2.4) mg/dl Total Bilirubin 0.3 (0.2-1.0) mg/dL AST 30 (15-37) U/L ALT 37 (14-59) U/L Alkaline Phosphatase 114 (46-116) U/L Total Protein 6.0 L (6.4-8.2) g/dl Albumin 2.9 L (3.4-5.0) g/dl Globulin 3.1 gm/dL Albumin/Globulin Ratio 0.9 L (1-2) Urine Opiates Screen Negative (USSVPU=716) Ur Buprenorphine Scrn Negative (CUTOFF=10) Ur Oxycodone Screen Negative (RBW1RE=084) Urine Methadone Screen Negative (ZBHVGR=536) Ur Propoxyphene Screen Negative (YDPSDT=360) Ur Barbiturates Screen Negative (SQQMLN=167) Ur Tricyclics Screen Negative (KYHLWL=854) Ur Phencyclidine Scrn Negative (CUTOFF=25) Ur Amphetamine Screen Negative (SMTZEW=328) U Methamphetamines Scrn Negative (OKYMEK=322) U Benzodiazepines Scrn Negative (ZBJGCF=188) U Cocaine Metab Screen Negative (EAHSBE=784) U Marijuana (THC) Screen Negative (CUTOFF=50) Ethyl Alcohol 0.48 (0.00) gm% 11/09/19 11/10/19 Range/Units 20:56 02:54 WBC (3.98-10.04) K/mm3 RBC (3.98-5.22) M/mm3 Hgb (11.2-15.7) gm/dl Hct (34.1-44.9) % MCV (79.4-94.8) fl MCH (25.6-32.2) pg MCHC (32.2-35.5) g/dl RDW Std Deviation (36.4-46.3) fL Plt Count (182-369) K/mm3 MPV (9.4-12.3) fl Neut % (Auto) (34.0-71.1) % Lymph % (Auto) (19.3-51.7) % Appling % (Auto) (4.7-12.5) % Eos % (Auto) (0.7-5.8) Baso % (Auto) (0.1-1.2) % Neut # (Auto) (1.56-6.13) K/mm3 Lymph # (Auto) (1.18-3.74) K/mm3 App[place] # (Auto) (0.24-0.36) K/mm3 Eos # (Auto) (0.04-0.36) K/mm3 Baso # (Auto) (0.01-0.08) K/mm3 Manual Slide Review Sodium 150 H 146 H (136-145) mEq/L Potassium 3.6 3.4 L (3.5-5.1) mEq/L Chloride 111 H 108 H (98-107) mEq/L Carbon Dioxide 26 24 (21-32) mEq/L Anion Gap 16.6 H 17.4 H (5-15) BUN 5 L 5 L (7-18) mg/dL Creatinine 0.5 L 0.6 (0.55-1.02) mg/dL Est Cr Clr Drug Dosing TNP TNP Estimated GFR (MDRD) > 60 > 60 (>60) mL/min BUN/Creatinine Ratio 10.0 L 8.3 L (14-18) Glucose 89 75 L (80-115) mg/dL Calcium 6.9 L 6.7 L (8.5-10.1) mg/dL Magnesium (1.8-2.4) mg/dl Total Bilirubin (0.2-1.0) mg/dL AST (15-37) U/L ALT (14-59) U/L Alkaline Phosphatase (46-116) U/L Total Protein (6.4-8.2) g/dl Albumin (3.4-5.0) g/dl Globulin gm/dL Albumin/Globulin Ratio (1-2) Urine Opiates Screen (OKOVES=000) Ur Buprenorphine Scrn (CUTOFF=10) Ur Oxycodone Screen (FGJ7EG=513) Urine Methadone Screen (ZKNTGL=439) Ur Propoxyphene Screen (CVYUTJ=201) Ur Barbiturates Screen (IFXWLG=895) Ur Tricyclics Screen (NGNZKV=892) Ur Phencyclidine Scrn (CUTOFF=25) Ur Amphetamine Screen (HPVXWB=750) U Methamphetamines Scrn (MENKOY=908) U Benzodiazepines Scrn (LGQTGD=893) U Cocaine Metab Screen (TPQVKI=201) U Marijuana (THC) Screen (CUTOFF=50) Ethyl Alcohol (0.00) gm% Meds: Medications Generic Name Dose Route Start Last Admin Trade Name Freq PRN Reason Stop Dose Admin Potassium Chloride/Sodium Chloride 1,000 mls @ 100 mls/hr 11/10/19 03:30 11/10/19 03:51 1/2 Ns With 20 Meq Kcl IV 100 mls/hr ASDIRECTED STEPHANE Administration Discontinued Medications Generic Name Dose Route Start Last Admin Trade Name Freq PRN Reason Stop Dose Admin Famotidine 20 mg 11/09/19 16:15 11/09/19 16:30 Pepcid IVPUSH 11/09/19 16:16 20 mg ONETIME ONE Administration Lactated Ringer's 1,000 mls @ 125 mls/hr 11/09/19 15:15 11/09/19 17:08 Ringers, Lactated IV 999 mls/hr ASDIRECTED STEPHANE Infusion Potassium Chloride 10 meq/ 100 mls @ 100 mls/hr 11/09/19 17:00 11/09/19 20:58 Premix IV 11/09/19 20:59 100 mls/hr Q1H STEPHANE Administration Lactated Ringer's 1,000 mls @ 200 mls/hr 11/09/19 17:00 11/09/19 17:58 Ringers, Lactated IV 200 mls/hr ASDIRECTED STEPHANE Administration Sodium Chloride 1,000 mls @ 150 mls/hr 11/09/19 22:45 11/09/19 23:05 Sodium Chloride 0.45% IV 150 mls/hr ASDIRECTED STEPHANE Administration Ondansetron HCl 4 mg 11/09/19 15:04 11/09/19 15:18 Zofran IVPUSH 11/09/19 15:05 4 mg ONETIME ONE Administration Ondansetron HCl 4 mg 11/10/19 06:17 Zofran IVPUSH 11/10/19 06:18 ONETIME ONE Thiamine HCl 100 mg 11/09/19 15:06 11/09/19 15:18 Vitamin B-1 IVPUSH 11/09/19 15:07 100 mg ONETIME ONE Administration - Re-Assessments/Exams Free Text/Narrative Re-Assessment/Exam: 11/09/19 15:22 I ordered an IV LR, labs, zofran 4mg IV, thiamine and a urine drug screen. 11/09/19 16:57 Her platelets were elevated at 690. Her Na is elevated at 151. Her K is low at 2.9. Her creatinine is low at 0.5. Her UDS is negative. Her ETOH is elevated at 0.48. 11/09/19 16:58 I will switch her to LR at 200ml/hr. 11/09/19 19:00 It is change of shift. Dr Bryant to take over. (Axel Ng) 11/09/19 22:[address] Ng. The patient has been sleeping. A BMP reveals her sodium to be elevated at 150, but her hypokalemia corrected at 3.6. Her bicarbonate is normal at 26. Her BUN/Cr are within normal limits, and her blood glucose is normal at 89. At present, she is receiving KVO IV fluid, therefore I have ordered 1/2 NS at 150 mL/h, and will repeat a BMP at 02:30. 11/10/19 03:28 Repeat BMP finds the patient's sodium down to 146, potassium 3.4, and bicarbonate 24. Based on this, I have switched the patient's IV fluid to 1/2 NS with KCl 20 mEq/L at 100 ml/hr. 11/10/19 06:18 Notified that the patient is feeling nauseated. I have ordered 4 mg IV Zofran. 11/10/19 06:28 I talked with the patient. She is sober and lucid. I will discharge her home with a prescription for Zofran, and the recommendation that she follow-up at either [facility], or the treatment center of her choice. (Hudson Bryant) Departure - Departure Condition: Fair - Discharge Information *PRESCRIPTION DRUG MONITORING PROGRAM REVIEWED*: Not Applicable *COPY OF PRESCRIPTION DRUG MONITORING REPORT IN PATIENT ANTHONY: Not Applicable <Axel Ng - Last Filed: 11/09/19 19:00> - Departure Time of Disposition: 06:29 <Hudson Bryant - Last Filed: 11/10/19 06:36> - Departure Disposition: Home, Self-Care 01 Clinical Impression: Alcohol dependence, binge pattern, Hypernatremia, Hypokalemia Acute alcohol intoxication Qualifiers: Complication of substance-induced condition: with delirium Qualified Code(s): F10.921 - Alcohol use, unspecified with intoxication delirium - Discharge Information Referrals: PCP,None [Primary Care Provider] - Additional Instructions: You were seen in the emergency room after being found unconscious in your home. Work-up in the ER included blood work and a urine drug screen. Your sodium was found to be significantly elevated at 151, and your potassium significantly depressed at 2.9. Your alcohol level was significantly elevated at 0.48. For reference, that is 6 times the upper legal limit for driving. You were given large volumes of corrective IV fluid and electrolytes in the ER, and your most recent blood test showed that your electrolytes have now returned to normal. Going forward, we recommend that you stop drinking and follow-up at either [facility], or the treatment center of your choice. A prescription for the anti-nausea medicine Zofran has been sent to the [facility] located in the [employer] store. You may dissolve 1 tablet of Zofran on your tongue up to every 8 hours, as needed for nausea/vomiting. If any other problems, please do not hesitate to return to the ER. Sepsis Event Note (ED) - Evaluation Sepsis Screening Result: No Definite Risk <Axel Ng - Last Filed: 11/09/19 19:00> - My Orders Last 24 Hours: My Active Orders 11/10/19 03:30 Sodium Chloride 0.45% with KCl [1/2 NS with 20 mEq KCl] 1,000 ml IV ASDIRECTED - Assessment/Plan Last 24 Hours: My Active Orders 11/10/19 03:30 Sodium Chloride 0.45% with KCl [1/2 NS with 20 mEq KCl] 1,000 ml IV ASDIRECTED
[2019-11-09] MEDS ORDERED: Famotidine 20 MG/2 ML SDV IVPUSH ONE (16:15)
[2019-11-09] MEDS: Potassium Chloride 10 MEQ in Premix Bag 1 BAG IV SCH ×4 (17:13→20:58)
[2019-11-09] MEDS ORDERED: Sodium Chloride 0.45% 1,000 ML IV SCH (22:45)
[2019-11-10] MEDS ORDERED: Sodium Chloride 0.45% with KCl 1,000 ML IV SCH (03:30)
[2019-11-10] MEDS ORDERED: Ondansetron 4 MG/2 ML SDV IVPUSH ONE (06:17)
== END 2019-11-10 06:48 | disposition home or self-care (01) ==
LOC: JD.ED 14:35
DX: F10.221 Alcohol dependence with intoxication delirium (principal); F50.81 Binge eating disorder; E87.6 Hypokalemia; E87.0 Hyperosmolality and hypernatremia; I10 Essential (primary) hypertension; E78.00 Pure hypercholesterolemia, unspecified; J45.909 Unspecified asthma, uncomplicated; F41.9 Anxiety disorder, unspecified; F31.9 Bipolar disorder, unspecified; Z90.49 Acquired absence of other specified parts of digestive tract; Z88.1 Allergy status to other antibiotic agents; Z88.8 Allergy status to other drugs, medicaments and biological substances; Z79.899 Other long term (current) drug therapy
CPT/HCPCS: 36415; 80048; 80053; 80306; 80307; 83735; 85025; 96361; 96365; 96366; 96375; 96376; 99284-25; J2405; J3411; J3480; J3490; J7030; J7120

== ENCOUNTER 2019-11-18 12:06 | Emergency (ER) | payer BC ==
--- NOTE | 2019-11-18 12:20 | EDM.PDOC ---
ED HPI GENERAL MEDICAL PROBLEM - General Chief Complaint: General Stated Complaint: [facility] Time Seen by Provider: 11/18/19 12:19 - History of Present Illness INITIAL COMMENTS - FREE TEXT/NARRATIVE: Is a known alcoholic who comes in by ambulance intoxicated and passing large volumes of black tarry stool. The patient was found on the floor with decreased level of consciousness. EMS brought her in and she was quite tachycardic and anxious. She is not taking any routine medications and she has been drinking heavily. She was found on the floor with multiple empty bottles of alcohol. She was seen here less than a month ago with similar complaints had a significant GI bleed and ended up coding from this. I believe she received 2 units of packed RBCs with her last GI bleed. She has follow-up with GI at the end of this month. Patient was transferred to [facility] after her last episode. Throat Pain Score (Numeric/FACES): 10 - Related Data Allergies Allergy/AdvReac Type Severity Reaction Status Date / Time levofloxacin [From Levaquin] Allergy Rash Verified 11/18/19 12:31 propoxyphene napsylate AdvReac Headache Verified 11/18/19 12:31 [From Darvocet-N] quetiapine fumarate AdvReac Confusion Verified 11/18/19 12:31 [From Seroquel] Home Meds: Home Meds Fluticasone Propion/Salmeterol [Advair 250-50 Diskus] 1 puff IH DAILY 05/24/16 [History] atorvaSTATin [Lipitor] 20 mg PO DAILY 05/24/16 [History] Albuterol Sulfate [Albuterol Sulfate Hfa] 2 puff PO Q4HR PRN 12/22/18 [History] DULoxetine [Cymbalta] 30 mg PO DAILY 12/22/18 [History] Losartan [Cozaar] 12.5 mg PO DAILY 12/22/18 [History] Omeprazole 20 mg PO ACBREAKFAST 12/22/18 [History] Potassium Chloride 20 meq PO DAILY 12/22/18 [History] Sucralfate [Carafate] 1 gm PO QID 12/22/18 [History] Folic Acid 1 mg PO DAILY #30 tablet 12/23/18 [Rx] Naltrexone 50 mg PO DAILY #30 tablet 12/23/18 [Rx] Thiamine [Vitamin B-1] 100 mg PO BEDTIME #30 tab 12/23/18 [Rx] Cranberry Fruit Extract [Cranberry] 0 mg PO DAILY 04/01/19 [History] Lutein/Minerals/Vit A,C & E [Ocuvite] 1 tab PO DAILY 04/01/19 [History] Magnesium 200 mg PO DAILY #30 tablet 04/01/19 [Rx] Montelukast [Singulair] 10 mg PO BEDTIME 04/01/19 [History] Ondansetron [Zofran ODT] 4 mg PO Q6H PRN #20 tab.dis 04/01/19 [Rx] Dexameth/Neomy/Polymyx B [Maxitrol Ophth Oint] 0 gm EYEBOTH TID tube 07/15/19 [Rx] Lactated Ringers [Ringers, Lactated] 75 ml IV ASDIRECTED bag 07/15/19 [Rx] Mirtazapine [Remeron] 15 mg PO BEDTIME tablet 07/15/19 [Rx] OLANZapine [ZyPREXA] 10 mg PO BEDTIME tablet 07/15/19 [Rx] diazePAM [Valium.] 10 mg PO Q8HR tablet 07/15/19 [Rx] Ondansetron [Zofran ODT] 1 tab PO Q8H PRN #10 tab.dis 11/10/19 [Rx] Past Medical History HEENT History: Reports: Impaired Vision Other HEENT History: wears glasses Cardiovascular History: Reports: High Cholesterol, Hypertension Respiratory History: Reports: Asthma Gastrointestinal History: Reports: GERD Genitourinary History: Reports: UTI, Recurrent SHUTTLE [employer] DRIVER History: Reports: Other (See Below) Other SHUTTLE [employer] DRIVER History: Patient states she started menopause at 54 yoa Neurological History: Reports: Headaches, Chronic Other Neuro History: headaches Psychiatric History: Reports: Addiction, Anxiety, Bipolar, Depression, Eating Disorders Other Psychiatric History: eating disorder at age 14 Endocrine/Metabolic History: Reports: Osteoporosis Hematologic History: Reports: None Immunologic History: Reports: Other (See Below) Other Immunologic History: recurrent staph infections Oncologic (Cancer) History: Reports: None - Infectious Disease History Infectious Disease History: Reports: Chicken Pox, Measles, Mumps - Past Surgical History Head Surgeries/Procedures: Reports: None HEENT Surgical History: Reports: Adenoidectomy, Oral Surgery, Tonsillectomy, Other (See Below) GI Surgical History: Reports: Appendectomy Musculoskeletal Surgical History: Reports: ORIF, Shoulder Surgery, Other (See Below) Other Musculoskeletal Surgeries/Procedures:: wrist ORIF Social & Family History - Family History Family Medical History: Unobtainable Cardiac: Reports: None - Caffeine Use Caffeine Use: Reports: Coffee Other Caffeine Use: Unknown if ever used due to being currently intoxicated. 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 Denies: Bloody Stool : Reports: No Symptoms Musculoskeletal: Reports: No Symptoms Skin: Reports: No Symptoms Neurological: Reports: Syncope, Tremors. Denies: Headache, Seizure Psychiatric: Reports: Anxiety, Depression. Denies: Mood Lability, Suicidal Ideation Hematologic/Lymphatic: Reports: No Symptoms Immunologic: Reports: No Symptoms ED EXAM, GENERAL - Physical Exam Exam: See Below Exam Limited By: No Limitations General Appearance: Anxious Eye Exam: Bilateral Eye: Normal Inspection Ears: Normal External Exam, Normal Canal, Hearing Grossly Normal, Normal TMs Nose: Normal Inspection, Normal Mucosa, No Blood Throat/Mouth: Other (Dry mucous membranes) Head: Atraumatic, Normocephalic Neck: Normal Inspection, Supple, Non-Tender, Full Range of Motion. No: Lymphadenopathy (L), Lymphadenopathy (R) Respiratory/Chest: No Respiratory Distress, Lungs Clear, Normal Breath Sounds Cardiovascular: Regular Rate, Rhythm, No Murmur, Tachycardia GI/Abdominal: Normal Bowel Sounds, Soft, Tender (Discomfort mild diffuse) Rectal (Female) Exam: Heme + Stool, Other (Heme positive stool that was guaiaced and found to be heme positive) Back Exam: Normal Inspection. No: CVA Tenderness (L), CVA Tenderness (R) Extremities: Normal Inspection, No Pedal Edema Neurological: Alert, Oriented Psychiatric: Anxious Skin Exam: Cool Lymphatic: No Adenopathy Course - Vital Signs Last Recorded V/S: Last Vital Signs Temp 38.1 C 11/18/19 15:25 Pulse 203 H 11/18/19 16:10 Resp 30 H 11/18/19 16:10 BP 134/60 11/18/19 16:10 Pulse Ox 95 11/18/19 16:10 - Orders/Labs/Meds Orders: Active Orders 24 hr Category Date Time Status EKG Documentation Completion [RC] STAT Care 11/18/19 12:29 Active CORONAVIRUS COVID-19 DODIE [MOLEC] Stat Lab 11/18/19 15:40 Received CULTURE BLOOD [BC] Stat Lab 11/18/19 13:00 Received CULTURE BLOOD [BC] Stat Lab 11/18/19 14:50 Received LACTIC ACID [CHEM] Routine Lab 11/18/19 16:01 Ordered LACTIC ACID [CHEM] Stat Lab 11/18/19 14:08 Ordered MYOGLOBIN, URINE Stat Lab 11/18/19 15:26 Received RED BLOOD CELLS LP [BBK] Stat Lab 11/18/19 13:00 Results TYPE AND SCREEN [BBK] Stat Lab 11/18/19 13:00 Results Dextrose 5%-Lactated Ringers @ 150 MLS/HR(1,000ml) Med 11/18/19 16:45 Ordered Dextrose 5%-Lactated Ringers 1,000 ml IV ASDIRECTED Magnesium Sulfate/Water [Magnesium Sulfate in Water Med 11/18/19 16:27 Ordered Premix] 4 gm Premix Bag 1 bag IV ONETIME Pharmacy to Dose - Vancomycin Med 11/18/19 16:37 Once 1 dose .XX ONETIME ONE Potassium Chloride [KCl 10 MEQ in Water 100 ML] 10 meq Med 11/18/19 14:15 Active Premix Bag 1 bag IV Q1H Sodium Chloride 0.9% [Normal Saline] 1,000 ml Med 11/18/19 16:15 Active IV ASDIRECTED Blood Culture x2 Reflex Set [OM.PC] Stat Oth 11/18/19 12:38 Ordered Blood Transfusion Reflex Orders [OM.PC] Routine Oth 11/18/19 12:31 Ordered Transfuse Red Blood Cells [COMM] Stat Oth 11/18/19 12:31 Ordered Medication Orders Potassium Chloride 10 meq/ (Premix) 100 mls @ 100 mls/hr IV Q1H STEPHANE Stop: 11/18/19 18:14 Last Admin: 11/18/19 15:38 Dose: 100 mls/hr Documented by: Infusion: 11/18/19 15:20 Dose: 100 mls/hr Documented by: Admin: 11/18/19 14:20 Dose: 100 mls/hr Documented by: BLANCA Sodium Chloride (Normal Saline) 1,000 mls @ 50 mls/hr IV ASDIRECTED [facility] Magnesium Sulfate 4 gm/ Premix 50 mls @ 12.5 mls/hr IV ONETIME ONE Stop: 11/18/19 20:26 Dextrose/Lactated Ringer's (Dextrose 5%-Lactated Ringers) 1,000 mls @ 150 mls/hr IV ASDIRECTED [facility] Labs: Laboratory Tests 11/18/19 11/18/19 11/18/19 Range/Units 12:40 13:00 13:00 WBC 17.01 H (3.98-10.04) K/mm3 RBC 3.73 L (3.98-5.22) M/mm3 Hgb 10.7 L (11.2-15.7) gm/dl Hct 34.1 (34.1-44.9) % MCV 91.4 (79.4-94.8) fl MCH 28.7 (25.6-32.2) pg MCHC 31.4 L (32.2-35.5) g/dl RDW Std Deviation 59.2 H (36.4-46.3) fL Plt Count 169 L D (182-369) K/mm3 MPV 9.6 (9.4-12.3) fl Neut % (Auto) 94.7 H (34.0-71.1) % Lymph % (Auto) 2.5 L (19.3-51.7) % [place] % (Auto) 2.5 L (4.7-12.5) % Eos % (Auto) 0 L (0.7-5.8) Baso % (Auto) 0.1 (0.1-1.2) % Neut # (Auto) 16.12 H (1.56-6.13) K/mm3 Lymph # (Auto) 0.42 L (1.18-3.74) K/mm3 [place] # (Auto) 0.42 H (0.24-0.36) K/mm3 Eos # (Auto) 0.00 L (0.04-0.36) K/mm3 Baso # (Auto) 0.02 (0.01-0.08) K/mm3 Manual Slide Review Abnormal smear PT (9.7-11.7) SECONDS INR APTT (22-31) SECONDS Puncture Site ABG pH (7.35-7.45) ABG pCO2 (35.0-45.0) mmHg ABG pO2 (80.0-100.0) mmHg ABG HCO3 (22.0-26.0) meq/L ABG O2 Saturation (96.0-97.0) % ABG Base Excess (-2-2.0) A-a Gradient mmHg O2 Delivery Device Oxygen Flow Rate FiO2 (21.00-100.00) % Sodium 140 (136-145) mEq/L Potassium 2.2 L* (3.5-5.1) mEq/L Chloride 97 L (98-107) mEq/L Carbon Dioxide 28 (21-32) mEq/L Anion Gap 17.2 H (5-15) BUN 13 (7-18) mg/dL Creatinine 0.7 (0.55-1.02) mg/dL Est Cr Clr Drug Dosing 64.06 mL/min Estimated GFR (MDRD) > 60 (>60) mL/min BUN/Creatinine Ratio 18.6 H (14-18) Glucose 138 H (80-115) mg/dL Lactic Acid (0.4-2.0) mmol/L Calcium 6.4 L (8.5-10.1) mg/dL Magnesium 1.3 L (1.8-2.4) mg/dl Total Bilirubin 0.7 (0.2-1.0) mg/dL GGT 81 H (5-55) U/L AST 59 H (15-37) U/L ALT 36 (14-59) U/L Alkaline Phosphatase 173 H (46-116) U/L Creatine Kinase (26-192) U/L Troponin I 0.017 (0.00-0.056) ng/mL C-Reactive Protein (<1.0) mg/dL Total Protein 5.8 L (6.4-8.2) g/dl Albumin 2.6 L (3.4-5.0) g/dl Globulin 3.2 gm/dL Albumin/Globulin Ratio 0.8 L (1-2) Urine Color (Yellow) Urine Appearance (Clear) Urine pH (5.0-8.0) Ur Specific [place] (1.005-1.030) Urine Protein (Negative) Urine Glucose (UA) (Negative) Urine Ketones (Negative) Urine Occult Blood (Negative) Urine Nitrite (Negative) Urine Bilirubin (Negative) Urine Urobilinogen (0.2-1.0) Ur Leukocyte Esterase (Negative) Urine RBC (0-5) /hpf Urine WBC (0-5) /hpf Ur Epithelial Cells (0-5) /hpf Urine Bacteria (FEW) /hpf Urine Mucus (FEW) /hpf Ethyl Alcohol 0.11 (0.00) gm% Blood Type Gel Antibody Screen Crossmatch 11/18/19 11/18/19 11/18/19 Range/Units 13:00 13:00 13:00 WBC (3.98-10.04) K/mm3 RBC (3.98-5.22) M/mm3 Hgb (11.2-15.7) gm/dl Hct (34.1-44.9) % MCV (79.4-94.8) fl MCH (25.6-32.2) pg MCHC (32.2-35.5) g/dl RDW Std Deviation (36.4-46.3) fL Plt Count (182-369) K/mm3 MPV (9.4-12.3) fl Neut % (Auto) (34.0-71.1) % Lymph % (Auto) (19.3-51.7) % [place] % (Auto) (4.7-12.5) % Eos % (Auto) (0.7-5.8) Baso % (Auto) (0.1-1.2) % Neut # (Auto) (1.56-6.13) K/mm3 Lymph # (Auto) (1.18-3.74) K/mm3 [place] # (Auto) (0.24-0.36) K/mm3 Eos # (Auto) (0.04-0.36) K/mm3 Baso # (Auto) (0.01-0.08) K/mm3 Manual Slide Review PT 11.1 D (9.7-11.7) SECONDS INR 1.04 APTT 32 H (22-31) SECONDS Puncture Site ABG pH (7.35-7.45) ABG pCO2 (35.0-45.0) mmHg ABG pO2 (80.0-100.0) mmHg ABG HCO3 (22.0-26.0) meq/L ABG O2 Saturation (96.0-97.0) % ABG Base Excess (-2-2.0) A-a Gradient mmHg O2 Delivery Device Oxygen Flow Rate FiO2 (21.00-100.00) % Sodium (136-145) mEq/L Potassium (3.5-5.1) mEq/L Chloride (98-107) mEq/L Carbon Dioxide (21-32) mEq/L Anion Gap (5-15) BUN (7-18) mg/dL Creatinine (0.55-1.02) mg/dL Est Cr Clr Drug Dosing mL/min Estimated GFR (MDRD) (>60) mL/min BUN/Creatinine Ratio (14-18) Glucose (80-115) mg/dL Lactic Acid 6.7 H* (0.4-2.0) mmol/L Calcium (8.5-10.1) mg/dL Magnesium (1.8-2.4) mg/dl Total Bilirubin (0.2-1.0) mg/dL GGT (5-55) U/L AST (15-37) U/L ALT (14-59) U/L Alkaline Phosphatase (46-116) U/L Creatine Kinase (26-192) U/L Troponin I (0.00-0.056) ng/mL C-Reactive Protein (<1.0) mg/dL Total Protein (6.4-8.2) g/dl Albumin (3.4-5.0) g/dl Globulin gm/dL Albumin/Globulin Ratio (1-2) Urine Color (Yellow) Urine Appearance (Clear) Urine pH (5.0-8.0) Ur Specific [place] (1.005-1.030) Urine Protein (Negative) Urine Glucose (UA) (Negative) Urine Ketones (Negative) Urine Occult Blood (Negative) Urine Nitrite (Negative) Urine Bilirubin (Negative) Urine Urobilinogen (0.2-1.0) Ur Leukocyte Esterase (Negative) Urine RBC (0-5) /hpf Urine WBC (0-5) /hpf Ur Epithelial Cells (0-5) /hpf Urine Bacteria (FEW) /hpf Urine Mucus (FEW) /hpf Ethyl Alcohol (0.00) gm% Blood Type O POSITIVE Gel Antibody Screen Negative Crossmatch See Detail 11/18/19 11/18/19 11/18/19 Range/Units 13:00 13:00 15:26 WBC (3.98-10.04) K/mm3 RBC (3.98-5.22) M/mm3 Hgb (11.2-15.7) gm/dl Hct (34.1-44.9) % MCV (79.4-94.8) fl MCH (25.6-32.2) pg MCHC (32.2-35.5) g/dl RDW Std Deviation (36.4-46.3) fL Plt Count (182-369) K/mm3 MPV (9.4-12.3) fl Neut % (Auto) (34.0-71.1) % Lymph % (Auto) (19.3-51.7) % [place] % (Auto) (4.7-12.5) % Eos % (Auto) (0.7-5.8) Baso % (Auto) (0.1-1.2) % Neut # (Auto) (1.56-6.13) K/mm3 Lymph # (Auto) (1.18-3.74) K/mm3 [place] # (Auto) (0.24-0.36) K/mm3 Eos # (Auto) (0.04-0.36) K/mm3 Baso # (Auto) (0.01-0.08) K/mm3 Manual Slide Review PT (9.7-11.7) SECONDS INR APTT (22-31) SECONDS Puncture Site ABG pH (7.35-7.45) ABG pCO2 (35.0-45.0) mmHg ABG pO2 (80.0-100.0) mmHg ABG HCO3 (22.0-26.0) meq/L ABG O2 Saturation (96.0-97.0) % ABG Base Excess (-2-2.0) A-a Gradient mmHg O2 Delivery Device Oxygen Flow Rate FiO2 (21.00-100.00) % Sodium (136-145) mEq/L Potassium (3.5-5.1) mEq/L Chloride (98-107) mEq/L Carbon Dioxide (21-32) mEq/L Anion Gap (5-15) BUN (7-18) mg/dL Creatinine (0.55-1.02) mg/dL Est Cr Clr Drug Dosing mL/min Estimated GFR (MDRD) (>60) mL/min BUN/Creatinine Ratio (14-18) Glucose (80-115) mg/dL Lactic Acid (0.4-2.0) mmol/L Calcium (8.5-10.1) mg/dL Magnesium (1.8-2.4) mg/dl Total Bilirubin (0.2-1.0) mg/dL GGT (5-55) U/L AST (15-37) U/L ALT (14-59) U/L Alkaline Phosphatase (46-116) U/L Creatine Kinase 787 H (26-192) U/L Troponin I (0.00-0.056) ng/mL C-Reactive Protein 27.8 H* (<1.0) mg/dL Total Protein (6.4-8.2) g/dl Albumin (3.4-5.0) g/dl Globulin gm/dL Albumin/Globulin Ratio (1-2) Urine Color Yellow (Yellow) Urine Appearance Clear (Clear) Urine pH 6.5 (5.0-8.0) Ur Specific [place] 1.020 (1.005-1.030) Urine Protein 1+ H (Negative) Urine Glucose (UA) Negative (Negative) Urine Ketones Negative (Negative) Urine Occult Blood Negative (Negative) Urine Nitrite Negative (Negative) Urine Bilirubin Negative (Negative) Urine Urobilinogen 0.2 (0.2-1.0) Ur Leukocyte Esterase Negative (Negative) Urine RBC Not seen (0-5) /hpf Urine WBC 0-5 (0-5) /hpf Ur Epithelial Cells Not seen (0-5) /hpf Urine Bacteria Not seen (FEW) /hpf Urine Mucus Not seen (FEW) /hpf Ethyl Alcohol (0.00) gm% Blood Type Gel Antibody Screen Crossmatch 11/18/19 Range/Units 16:04 WBC (3.98-10.04) K/mm3 RBC (3.98-5.22) M/mm3 Hgb (11.2-15.7) gm/dl Hct (34.1-44.9) % MCV (79.4-94.8) fl MCH (25.6-32.2) pg MCHC (32.2-35.5) g/dl RDW Std Deviation (36.4-46.3) fL Plt Count (182-369) K/mm3 MPV (9.4-12.3) fl Neut % (Auto) (34.0-71.1) % Lymph % (Auto) (19.3-51.7) % [place] % (Auto) (4.7-12.5) % Eos % (Auto) (0.7-5.8) Baso % (Auto) (0.1-1.2) % Neut # (Auto) (1.56-6.13) K/mm3 Lymph # (Auto) (1.18-3.74) K/mm3 [place] # (Auto) (0.24-0.36) K/mm3 Eos # (Auto) (0.04-0.36) K/mm3 Baso # (Auto) (0.01-0.08) K/mm3 Manual Slide Review PT (9.7-11.7) SECONDS INR APTT (22-31) SECONDS Puncture Site Lt radial ABG pH 7.58 H (7.35-7.45) ABG pCO2 29.7 L (35.0-45.0) mmHg ABG pO2 66.0 L (80.0-100.0) mmHg ABG HCO3 27.6 H (22.0-26.0) meq/L ABG O2 Saturation 93.5 L (96.0-97.0) % ABG Base Excess 5.6 H (-2-2.0) A-a Gradient 68 mmHg O2 Delivery Device Nasal cannula Oxygen Flow Rate 1.0 FiO2 24.00 (21.00-100.00) % Sodium (136-145) mEq/L Potassium (3.5-5.1) mEq/L Chloride (98-107) mEq/L Carbon Dioxide (21-32) mEq/L Anion Gap (5-15) BUN (7-18) mg/dL Creatinine (0.55-1.02) mg/dL Est Cr Clr Drug Dosing mL/min Estimated GFR (MDRD) (>60) mL/min BUN/Creatinine Ratio (14-18) Glucose (80-115) mg/dL Lactic Acid (0.4-2.0) mmol/L Calcium (8.5-10.1) mg/dL Magnesium (1.8-2.4) mg/dl Total Bilirubin (0.2-1.0) mg/dL GGT (5-55) U/L AST (15-37) U/L ALT (14-59) U/L Alkaline Phosphatase (46-116) U/L Creatine Kinase (26-192) U/L Troponin I (0.00-0.056) ng/mL C-Reactive Protein (<1.0) mg/dL Total Protein (6.4-8.2) g/dl Albumin (3.4-5.0) g/dl Globulin gm/dL Albumin/Globulin Ratio (1-2) Urine Color (Yellow) Urine Appearance (Clear) Urine pH (5.0-8.0) Ur Specific [place] (1.005-1.030) Urine Protein (Negative) Urine Glucose (UA) (Negative) Urine Ketones (Negative) Urine Occult Blood (Negative) Urine Nitrite (Negative) Urine Bilirubin (Negative) Urine Urobilinogen (0.2-1.0) Ur Leukocyte Esterase (Negative) Urine RBC (0-5) /hpf Urine WBC (0-5) /hpf Ur Epithelial Cells (0-5) /hpf Urine Bacteria (FEW) /hpf Urine Mucus (FEW) /hpf Ethyl Alcohol (0.00) gm% Blood Type Gel Antibody Screen Crossmatch Meds: Medications Generic Name Dose Route Start Last Admin Trade Name Freq PRN Reason Stop Dose Admin Potassium Chloride 10 meq/ 100 mls @ 100 mls/hr 11/18/19 14:15 11/18/19 15:38 Premix IV 11/18/19 18:14 100 mls/hr Q1H STEPHANE Administration Sodium Chloride 1,000 mls @ 50 mls/hr 11/18/19 16:15 Normal Saline IV ASDIRECTED STEPHANE Magnesium Sulfate 4 gm/ Premix 50 mls @ 12.5 mls/hr 11/18/19 16:27 IV 11/18/19 20:26 ONETIME ONE Dextrose/Lactated Ringer's 1,000 mls @ 150 mls/hr 11/18/19 16:45 Dextrose 5%-Lactated Ringers IV ASDIRECTED STEPHANE Discontinued Medications Generic Name Dose Route Start Last Admin Trade Name Freq PRN Reason Stop Dose Admin Diazepam 10 mg 11/18/19 16:30 Valium IVPUSH 11/18/19 16:31 ONETIME ONE Diazepam Confirm 11/18/19 16:32 Valium Administered 11/18/19 16:33 Dose 10 mg .ROUTE .STK-MED ONE Folic Acid 1 mg 11/18/19 16:27 Folic Acid IV 11/18/19 16:28 ONETIME ONE Lactated Ringer's 1,000 mls @ 999 mls/hr 11/18/19 12:30 11/18/19 12:55 Ringers, Lactated IV 11/18/19 13:30 999 mls/hr .BOLUS ONE Administration Lactated Ringer's 1,000 mls @ 999 mls/hr 11/18/19 14:11 11/18/19 14:13 Ringers, Lactated IV 11/18/19 15:11 999 mls/hr .BOLUS ONE Administration Piperacillin Sod/Tazobactam 100 mls @ 200 mls/hr 11/18/19 15:00 11/18/19 15:38 Sod 4.5 gm/ Sodium Chloride IV 11/18/19 15:29 200 mls/hr ONETIME ONE Administration Lorazepam 1 mg 11/18/19 13:38 11/18/19 13:47 Ativan IVPUSH 11/18/19 13:39 1 mg ONETIME ONE Administration Lorazepam 1 mg 11/18/19 14:41 11/18/19 14:48 Ativan IVPUSH 11/18/19 14:42 1 mg ONETIME ONE Administration Ondansetron HCl 4 mg 11/18/19 13:38 11/18/19 13:47 Zofran IVPUSH 11/18/19 13:39 4 mg ONETIME ONE Administration Pantoprazole Sodium 80 mg 11/18/19 12:30 11/18/19 12:50 Protonix Iv IVPUSH 11/18/19 12:31 80 mg BOLUS ONE Administration - Re-Assessments/Exams Free Text/Narrative Re-Assessment/Exam: 11/18/19 12:[address] Whatley who agrees with the work-up thus far of the transfusion. I cannot find any CT evidence of esophageal varices in the past, she has had CTs of the chest that did show esophageal thickening more consistent with esophagitis. Was a CTA did not show esophageal varices 11/18/19 14:06 Blood alcohol is only 1.1 her potassium was 2.2 she has a history of multiple upper GI bleeds in the past it is reasonable to assume that she passed out because of acute blood loss. Her H&H is 10.7 and 34.1% given her low blood alcohol relative and history of multiple GI bleeds in the past both myself and Dr. Whatley believe it is reasonable to continue with the transfusion. Especially with her history of code from a similar episode less than a month ago. Her tachycardia has not improved with a fluid bolus we will start another fluid bolus her pulse at this time is 158. Lactic acid is 6.7. Blood cultures have been obtained and sepsis clearly is not ruled out. 11/18/19 14:35 Was discussed at 1 call at [place] who discussed the patient's case with Dr. Mcrae, almond grinder construction driller who recommended sending the patient the case was then discussed with Dr. Álvarez, hospitalist on-call who agrees with transfusion and covering for possible sepsis. The patient is probably significantly hemoconcentrated with a lactic acid like that and all the GI losses she has had with the diarrhea. Patient will be covered for with Zosyn intermediate dose 3.375 g after the second blood culture and urinalysis have been obtained. The patient will be transferred to the care of Dr. Álvarez at [place] it will be several hours before we can arrange transfer however. 11/18/19 16:38 Since this was due to deteriorating significant tachycardic and more confused. Case discussed with Dr. Álvarez at [place] who brought in Dr. Pittman, the tuberculosis specialist as it looks like the patient might end up in the ICU there is joint recommendation was to start her on clotting factors whenever we have continue the transfusion start vancomycin. Shortly after this Dr. Parada who has extensive experience with this patient recommended Precedex around 0.02 units/kg/h Valium 5 mg IV every 8 hours thiamine folic acid and 4 g of magnesium all reasonable these will be started. With her poor IV access Dr. Parada is attempting a central line. Departure - Departure Time of Disposition: 14:40 Disposition: DC/Tfer to [facility] 02 Clinical Impression: Gastrointestinal hemorrhage, Chronic alcoholism, Recurrent gastrointestinal hemorrhage, Dehydration, Hypokalemia, Alcoholism /alcohol abuse - Discharge Information Referrals: PCP,None [Primary Care Provider] - Forms: ED Department Discharge Sepsis Event Note (ED) - Focused Exam Vital Signs: Vital Signs Temp Pulse Resp BP Pulse Ox 11/18/19 16:10 203 H 30 H 134/60 95 11/18/19 15:25 38.1 C 151 H 16 137/59 L 95 11/18/19 12:27 37.1 C 152 H 18 151/96 H 100 - My Orders Last 24 Hours: My Active Orders 11/18/19 12:29 EKG Documentation Completion [RC] STAT 11/18/19 12:31 Blood Transfusion Reflex Orders [OM.PC] Routine Transfuse Red Blood Cells [COMM] Stat 11/18/19 12:38 Blood Culture x2 Reflex Set [OM.PC] Stat 11/18/19 13:00 CULTURE BLOOD [BC] Stat RED BLOOD CELLS LP [BBK] Stat TYPE AND SCREEN [BBK] Stat 11/18/19 14:08 LACTIC ACID [CHEM] Stat 11/18/19 14:15 Potassium Chloride [KCl 10 MEQ in Water 100 ML] 10 meq Premix Bag 1 bag IV Q1H 11/18/19 14:50 CULTURE BLOOD [BC] Stat 11/18/19 15:26 MYOGLOBIN, URINE Stat 11/18/19 15:40 CORONAVIRUS COVID-19 DODIE [MOLEC] Stat 11/18/19 16:01 LACTIC ACID [CHEM] Routine 11/18/19 16:15 Sodium Chloride 0.9% [Normal Saline] 1,000 ml IV ASDIRECTED 11/18/19 16:27 Magnesium Sulfate/Water [Magnesium Sulfate in Water Premix] 4 gm Premix Bag 1 bag IV ONETIME 11/18/19 16:37 Pharmacy to Dose - Vancomycin 1 dose .XX ONETIME ONE 11/18/19 16:45 Dextrose 5%-Lactated Ringers @ 150 MLS/HR(1,000ml) Dextrose 5%-Lactated Ringers 1,000 ml IV ASDIRECTED - Assessment/Plan Last 24 Hours: My Active Orders 11/18/19 12:29 EKG Documentation Completion [RC] STAT 11/18/19 12:31 Blood Transfusion Reflex Orders [OM.PC] Routine Transfuse Red Blood Cells [COMM] Stat 11/18/19 12:38 Blood Culture x2 Reflex Set [OM.PC] Stat 11/18/19 13:00 CULTURE BLOOD [BC] Stat RED BLOOD CELLS LP [BBK] Stat TYPE AND SCREEN [BBK] Stat 11/18/19 14:08 LACTIC ACID [CHEM] Stat 11/18/19 14:15 Potassium Chloride [KCl 10 MEQ in Water 100 ML] 10 meq Premix Bag 1 bag IV Q1H 11/18/19 14:50 CULTURE BLOOD [BC] Stat 11/18/19 15:26 MYOGLOBIN, URINE Stat 11/18/19 15:40 CORONAVIRUS COVID-19 DODIE [MOLEC] Stat 11/18/19 16:01 LACTIC ACID [CHEM] Routine 11/18/19 16:15 Sodium Chloride 0.9% [Normal Saline] 1,000 ml IV ASDIRECTED 11/18/19 16:27 Magnesium Sulfate/Water [Magnesium Sulfate in Water Premix] 4 gm Premix Bag 1 bag IV ONETIME 11/18/19 16:37 Pharmacy to Dose - Vancomycin 1 dose .XX ONETIME ONE 11/18/19 16:45 Dextrose 5%-Lactated Ringers @ 150 MLS/HR(1,000ml) Dextrose 5%-Lactated Ringers 1,000 ml IV ASDIRECTED
[2019-11-18] MEDS ORDERED: Lactated Ringers 1,000 ML IV ONE ×2 (12:30→14:11)
[2019-11-18] MEDS ORDERED: Pantoprazole 40 MG Vial IVPUSH ONE (12:30)
[2019-11-18] MEDS ORDERED: LORazepam 2 MG/ML SDV IVPUSH ONE ×2 (13:38→14:41)
[2019-11-18] MEDS ORDERED: Ondansetron 4 MG/2 ML SDV IVPUSH ONE (13:38)
[2019-11-18] MEDS: Potassium Chloride 10 MEQ in Premix Bag 1 BAG IV SCH ×4 (14:20→17:58)
[2019-11-18] MEDS ORDERED: Piperacillin/Tazobactam 3.375 GM in Sodium Chloride 0.9% 100 ML IV ONE (14:30)
[2019-11-18] MEDS ORDERED: Piperacillin/Tazobactam 4.5 GM in Sodium Chloride 0.9% 100 ML IV ONE (15:00)
--- NOTE | 2019-11-18 15:52 | CR ---
Chest: Portable view of the chest was obtained. Comparison: Prior chest x-ray of 10/24/19. Heart size and mediastinum are normal. Lungs show no definite acute parenchymal change. Bony structures are osteopenic. Impression: 1. Nothing acute is definitely appreciated on portable chest x-ray. Diagnostic code #1 This report was dictated in MDT
[2019-11-18] MEDS ORDERED: Sodium Chloride 0.9% 1,000 ML IV SCH (16:15)
[2019-11-18] MEDS ORDERED: Folic Acid 50 MG/10 ML MDV IV ONE (16:27)
[2019-11-18] MEDS ORDERED: Magnesium Sulfate/Water 4 GM in Premix Bag 1 BAG IV ONE (16:27)
[2019-11-18] MEDS ORDERED: Dextrose 5%-Lactated Ringers 1,000 ML IV SCH (16:45)
--- NOTE | 2019-11-18 17:05 | PCM.PR.CLI ---
Central Line Insertion - Central Line Insertion Site: internal jugular (R) Prep: CDC/MBT Guidelines, Sterile Drapes, Chlorhexidine Lumen: triple Gauge: 7Fr Local Anesthesia - Lidocaine (Xylocaine): 1% Plain Local Anesthetic Volume: 3cc Ultrasound guided: Yes Micropuncture kit used: Yes CL Complications: No Secured with suture: Yes Post placement confirmation: CXR, all ports aspirated, all ports flushed CXR post-procedure: no pneumothorax, no hemothorax Dressing applied: by provider Central line comment: Procedure time: 17:12-17:18 Tolerated procedure well without complications Estimated blood loss: 4mL
[2019-11-18] MEDS ORDERED: [UNRECOGNIZED DRUG - OTHER] IV SCH (17:15)
--- NOTE | 2019-11-18 17:20 | CR ---
Chest: Supine portable view of the chest was obtained. Comparison: Prior chest x-ray performed earlier on the same day (3:15 PM Increasing density within the right mid and lower lung from prior study. Right upper lung and left lung are clear. Right jugular line is seen with tip lying within the superior vena cava. Overlying monitor leads are seen. No pneumothorax is seen. Prior right shoulder surgery is seen. Impression: 1. Parenchymal density within the right mid and lower lung which is an interval change from prior study. Please correlate the patient has had an aspiration episode or whether this represents hydration and appearance of right mid and lower lung pneumonia that becomes evident with hydration. 2. Right jugular line which is satisfactory in position. 3. Other findings as noted above which are nonacute. Diagnostic code #3 This report was dictated in MDT
[2019-11-18 18:15] VITALS: BP 113/72; PULSE 195
== END 2019-11-18 18:44 ==
LOC: JD.ED 12:06
DX: K92.2 Gastrointestinal hemorrhage, unspecified (principal); E87.6 Hypokalemia; E86.0 Dehydration; F10.229 Alcohol dependence with intoxication, unspecified; R00.0 Tachycardia, unspecified; I10 Essential (primary) hypertension; E78.00 Pure hypercholesterolemia, unspecified; J45.909 Unspecified asthma, uncomplicated; F41.9 Anxiety disorder, unspecified; F31.9 Bipolar disorder, unspecified; K21.9 Gastro-esophageal reflux disease without esophagitis; Z88.1 Allergy status to other antibiotic agents; Z88.8 Allergy status to other drugs, medicaments and biological substances; Z88.6 Allergy status to analgesic agent; Z90.49 Acquired absence of other specified parts of digestive tract; Z79.899 Other long term (current) drug therapy
CPT/HCPCS: 36415; 36430; 36556; 36600; 71045; 80053; 80307; 81001; 82550; 82803; 82977; 83605; 83735; 83874; 84484; 85025; 85610; 85730; 86140; 86850; 86900; 86901; 86922; 87040; 87635; 93005; 96361; 96365; 96366; 96367; 96368; 96375; 96376; 99285; C9113; J2060; J2405; J2543; J3360; J3370; J3475; J3480; J7030; J7050; J7120; J7121; P9016; P9017; 93010; U0002

== ENCOUNTER 2019-12-10 08:17 | Emergency (ER) | payer BC ==
[2019-12-10] MEDS ORDERED: Sodium Chloride 0.9% 10 ML Syringe FLUSH PRN (08:36)
[2019-12-10] MEDS ORDERED: LORazepam 2 MG/ML SDV IVPUSH ONE ×3 (08:36→11:15)
[2019-12-10] MEDS ORDERED: Sodium Chloride 0.9% 1,000 ML IV SCH (08:45)
--- NOTE | 2019-12-10 09:34 | EDM.PDOC ---
ED HPI GENERAL MEDICAL PROBLEM - General Chief Complaint: Drug or Alcohol Abuse Stated Complaint: [facility] Time Seen by Provider: 12/10/19 08:36 Source of Information: Reports: Patient, EMS, RN Notes Reviewed - History of Present Illness INITIAL COMMENTS - FREE TEXT/NARRATIVE: 63 yr old female comes in with severe anxiety. Has been abusing alcohol again. Drinks vodka. Last alcohol stated to be around 5 yesterday afternoon. Is afraid she "is going to ". No chest pain or difficulty breathing. Not eating well. Drinks gatorade in addition to consuming vodka. Was at [facility] 2 months ago for "about a month of treatment" States she went back to drinking a short time of release back home. Chest Pain Score (Numeric/FACES): 10 - Related Data Allergies Allergy/AdvReac Type Severity Reaction Status Date / Time levofloxacin [From Levaquin] Allergy Rash Verified 12/10/19 08:29 propoxyphene napsylate AdvReac Headache Verified 12/10/19 08:29 [From Darvocet-N] quetiapine fumarate AdvReac Confusion Verified 12/10/19 08:29 [From Seroquel] Home Meds: Home Meds Fluticasone Propion/Salmeterol [Advair 250-50 Diskus] 1 puff IH DAILY 05/24/16 [History] atorvaSTATin [Lipitor] 20 mg PO DAILY 05/24/16 [History] Albuterol Sulfate [Albuterol Sulfate Hfa] 2 puff PO Q4HR PRN 12/22/18 [History] DULoxetine [Cymbalta] 30 mg PO DAILY 12/22/18 [History] Losartan [Cozaar] 12.5 mg PO DAILY 12/22/18 [History] Omeprazole 20 mg PO ACBREAKFAST 12/22/18 [History] Potassium Chloride 20 meq PO DAILY 12/22/18 [History] Sucralfate [Carafate] 1 gm PO QID 12/22/18 [History] Folic Acid 1 mg PO DAILY #30 tablet 12/23/18 [Rx] Naltrexone 50 mg PO DAILY #30 tablet 12/23/18 [Rx] Thiamine [Vitamin B-1] 100 mg PO BEDTIME #30 tab 12/23/18 [Rx] Cranberry Fruit Extract [Cranberry] 0 mg PO DAILY 04/01/19 [History] Lutein/Minerals/Vit A,C & E [Ocuvite] 1 tab PO DAILY 04/01/19 [History] Magnesium 200 mg PO DAILY #30 tablet 04/01/19 [Rx] Montelukast [Singulair] 10 mg PO BEDTIME 04/01/19 [History] Ondansetron [Zofran ODT] 4 mg PO Q6H PRN #20 tab.dis 04/01/19 [Rx] Dexameth/Neomy/Polymyx B [Maxitrol Ophth Oint] 0 gm EYEBOTH TID tube 07/15/19 [Rx] Lactated Ringers [Ringers, Lactated] 75 ml IV ASDIRECTED bag 07/15/19 [Rx] Mirtazapine [Remeron] 15 mg PO BEDTIME tablet 07/15/19 [Rx] OLANZapine [ZyPREXA] 10 mg PO BEDTIME tablet 07/15/19 [Rx] diazePAM [Valium.] 10 mg PO Q8HR tablet 07/15/19 [Rx] Ondansetron [Zofran ODT] 1 tab PO Q8H PRN #10 tab.dis 11/10/19 [Rx] LORazepam [Ativan] 1 mg PO BID PRN #4 tab 12/10/19 [Rx] Past Medical History HEENT History: Reports: Impaired Vision Other HEENT History: wears glasses Cardiovascular History: Reports: High Cholesterol, Hypertension Respiratory History: Reports: Asthma Gastrointestinal History: Reports: GERD Genitourinary History: Reports: UTI, Recurrent [employer] History: Reports: Other (See Below) Other [employer]OR History: Patient states she started menopause at 54 yoa Neurological History: Reports: Headaches, Chronic Other Neuro History: headaches Psychiatric History: Reports: Addiction, Anxiety, Bipolar, Depression, Eating Disorders Other Psychiatric History: eating disorder at age 14 Endocrine/Metabolic History: Reports: Osteoporosis Hematologic History: Reports: None Immunologic History: Reports: Other (See Below) Other Immunologic History: recurrent staph infections Oncologic (Cancer) History: Reports: None - Infectious Disease History Infectious Disease History: Reports: Chicken Pox, Measles, Mumps - Past Surgical History Head Surgeries/Procedures: Reports: None HEENT Surgical History: Reports: Adenoidectomy, Oral Surgery, Tonsillectomy, Other (See Below) GI Surgical History: Reports: Appendectomy Musculoskeletal Surgical History: Reports: ORIF, Shoulder Surgery, Other (See Below) Other Musculoskeletal Surgeries/Procedures:: wrist ORIF Social & Family History - Family History Family Medical History: Unobtainable Cardiac: Reports: None - Tobacco Use Tobacco Use Status *Q: Unknown Ever Used Tobacco - Caffeine Use Caffeine Use: Reports: None Other Caffeine Use: Unknown if ever used due to being currently intoxicated. 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 Denies: Abdominal Pain, Vomiting Musculoskeletal: Reports: No Symptoms Neurological: Reports: Dizziness Psychiatric: Reports: Anxiety ED EXAM, GENERAL - Physical Exam Exam: See Below General Appearance: Alert, Anxious (extreme) Head: Atraumatic Neck: Supple Respiratory/Chest: No Respiratory Distress, Lungs Clear, Normal Breath Sounds Cardiovascular: Tachycardia GI/Abdominal: Soft, Non-Tender Extremities: Normal Inspection, Normal Range of Motion Neurological: Alert, Oriented, No Motor/Sensory Deficits Skin Exam: Warm, Dry, Normal Color Course - Vital Signs Last Recorded V/S: Last Vital Signs Temp 98.8 F 12/10/19 08:24 Pulse 115 H 12/10/19 11:30 Resp 20 12/10/19 11:30 BP 159/86 H 12/10/19 11:30 Pulse Ox 99 12/10/19 11:30 - Orders/Labs/Meds Labs: Laboratory Tests 12/10/19 12/10/19 Range/Units 09:01 09:01 WBC 12.30 H (3.98-10.04) K/mm3 RBC 3.59 L (3.98-5.22) M/mm3 Hgb 10.5 L (11.2-15.7) gm/dl Hct 32.9 L (34.1-44.9) % MCV 91.6 (79.4-94.8) fl MCH 29.2 (25.6-32.2) pg MCHC 31.9 L (32.2-35.5) g/dl RDW Std Deviation 51.8 H (36.4-46.3) fL Plt Count 566 H D (182-369) K/mm3 MPV 8.5 L (9.4-12.3) fl Neut % (Auto) 84.9 H (34.0-71.1) % Lymph % (Auto) 9.0 L (19.3-51.7) % Cole % (Auto) 5.6 (4.7-12.5) % Eos % (Auto) 0.1 L (0.7-5.8) Baso % (Auto) 0.2 (0.1-1.2) % Neut # (Auto) 10.43 H (1.56-6.13) K/mm3 Lymph # (Auto) 1.11 L (1.18-3.74) K/mm3 Cole # (Auto) 0.69 H (0.24-0.36) K/mm3 Eos # (Auto) 0.01 L (0.04-0.36) K/mm3 Baso # (Auto) 0.03 (0.01-0.08) K/mm3 Manual Slide Review Normal smear Sodium 135 L (136-145) mEq/L Potassium 3.6 (3.5-5.1) mEq/L Chloride 99 (98-107) mEq/L Carbon Dioxide 24 (21-32) mEq/L Anion Gap 15.6 H (5-15) BUN 5 L (7-18) mg/dL Creatinine 0.5 L (0.55-1.02) mg/dL Est Cr Clr Drug Dosing 97.30 mL/min Estimated GFR (MDRD) > 60 (>60) mL/min BUN/Creatinine Ratio 10.0 L (14-18) Glucose 88 (80-115) mg/dL Calcium 7.4 L (8.5-10.1) mg/dL Total Bilirubin 0.6 (0.2-1.0) mg/dL AST 41 H (15-37) U/L ALT 72 H (14-59) U/L Alkaline Phosphatase 128 H (46-116) U/L Total Protein 5.5 L (6.4-8.2) g/dl Albumin 2.7 L (3.4-5.0) g/dl Globulin 2.8 gm/dL Albumin/Globulin Ratio 1.0 (1-2) Ethyl Alcohol 0.00 (0.00) gm% Meds: Medications Discontinued Medications Generic Name Dose Route Start Last Admin Trade Name Freq PRN Reason Stop Dose Admin Sodium Chloride 1,000 mls @ 999 mls/hr 12/10/19 08:45 12/10/19 08:41 Normal Saline IV 999 mls/hr ONETIME STEPHANE Administration Lactated Ringer's 1,000 mls @ 999 mls/hr 12/10/19 09:46 12/10/19 09:52 Ringers, Lactated IV 12/10/19 10:46 999 mls/hr .BOLUS ONE Administration Lorazepam 1 mg 12/10/19 08:36 12/10/19 08:41 Ativan IVPUSH 12/10/19 08:37 1 mg ONETIME ONE Administration Lorazepam 1 mg 12/10/19 09:33 12/10/19 09:38 Ativan IVPUSH 12/10/19 09:34 1 mg ONETIME ONE Administration Lorazepam 0.5 mg 12/10/19 11:15 12/10/19 11:20 Ativan IVPUSH 12/10/19 11:16 0.5 mg ONETIME ONE Administration Sodium Chloride 10 ml 12/10/19 08:36 12/10/19 08:41 Saline Flush FLUSH 10 ml ASDIRECTED PRN Administration Keep Vein Open Thiamine HCl 100 mg 12/10/19 10:44 12/10/19 11:01 Vitamin B-1 IV 12/10/19 10:45 100 mg ONETIME ONE Administration - Re-Assessments/Exams Free Text/Narrative Re-Assessment/Exam: 12/12/19 07:12 Pt was feeling much better after ativan 2.5 mg IV, IV fluid over many hours. Etoh was zero. Discharge instr. as documented. Departure - Departure Time of Disposition: 11:03 Disposition: Home, Self-Care 01 Condition: Fair Clinical Impression: Anxiety, Panic attack Alcohol withdrawal Qualifiers: Complication of substance-induced condition: with delirium Qualified Code(s): F10.231 - Alcohol dependence with withdrawal delirium - Discharge Information Prescriptions: LORazepam [Ativan] 1 mg PO BID PRN #4 tab PRN Reason: Anxiety Instructions: Panic Attack, [id number], Living With Anxiety, Alcohol Withdrawal Syndrome, [id number] Referrals: PCP,None [Primary Care Provider] - Forms: ED Department Discharge Additional Instructions: Rest, drink plenty of water, Ok to alternate gatorade and water. Eat regular meals and snacks. Avoid further alcohol. Ativan 1 mg later this afternoon and next dose at bedtime tonight. You will have 2 extra doses to use tomorrow if needed. Follow up [facility] as planned. Return to ED as needed. Sepsis Event Note (ED) - Evaluation Sepsis Screening Result: No Definite Risk
[2019-12-10] MEDS ORDERED: Lactated Ringers 1,000 ML IV ONE (09:46)
[2019-12-10] MEDS ORDERED: Thiamine 200 MG/2 ML MDV IV ONE (10:44)
[2019-12-10 11:43] VITALS: BP 159/86; PULSE 115
== END 2019-12-10 11:35 | disposition home or self-care (01) ==
LOC: JD.ED 08:17
DX: F41.0 Panic disorder [episodic paroxysmal anxiety] (principal); F10.231 Alcohol dependence with withdrawal delirium; I10 Essential (primary) hypertension; E78.00 Pure hypercholesterolemia, unspecified; K21.9 Gastro-esophageal reflux disease without esophagitis; Z87.440 Personal history of urinary (tract) infections; F41.9 Anxiety disorder, unspecified; F31.9 Bipolar disorder, unspecified; Z90.49 Acquired absence of other specified parts of digestive tract; Z88.1 Allergy status to other antibiotic agents; Z88.8 Allergy status to other drugs, medicaments and biological substances; Z79.899 Other long term (current) drug therapy
CPT/HCPCS: 36415; 80053; 80307; 85025; 96374; 96375; 96376; 99284; J2060; J3411; J7030; J7120

== ENCOUNTER 2020-01-31 15:19 | Emergency (ER) | payer BC ==
[2020-01-31] MEDS ORDERED: Sodium Chloride 0.9% 1,000 ML IV ONE (15:37)
[2020-01-31] MEDS ORDERED: Sodium Chloride 0.9% 10 ML Syringe FLUSH PRN (15:37)
--- NOTE | 2020-01-31 16:08 | EDM.PDOC ---
ED HPI GENERAL MEDICAL PROBLEM - General Chief Complaint: General Stated Complaint: [facility] Time Seen by Provider: 01/31/20 15:22 Source of Information: Reports: Patient, EMS History Limitations: Reports: Intoxication - History of Present Illness INITIAL COMMENTS - FREE TEXT/NARRATIVE: Patient is a 64 year old female with history of alcoholism presents to the E.D. via ambulance after falling into a ross. Patient did not hither head nor injure her head, neck, back, or extremities. States she was walking back into her residence after checking the mail. She fell over a ross tripped and fell. She denied hitting her head or LOC. She admits to consuming alcohol this morning. She is a alcoholic and does not drink every day. She did drink yesterday. She has been under a lot more stress recently due to legal issues. Denies hitting her head, injuring her neck or back. She has no trauma to her extremities. She does remember the year, who the president is, and where she is currently located. She does not recall what the date is. - Related Data Allergies Allergy/AdvReac Type Severity Reaction Status Date / Time levofloxacin [From Levaquin] Allergy Rash Verified 12/10/19 08:29 propoxyphene napsylate AdvReac Headache Verified 12/10/19 08:29 [From Darvocet-N] quetiapine fumarate AdvReac Confusion Verified 12/10/19 08:29 [From Seroquel] Home Meds: Home Meds Fluticasone Propion/Salmeterol [Advair 250-50 Diskus] 1 puff IH DAILY 05/24/16 [History] atorvaSTATin [Lipitor] 20 mg PO DAILY 05/24/16 [History] Albuterol Sulfate [Albuterol Sulfate Hfa] 2 puff PO Q4HR PRN 12/22/18 [History] DULoxetine [Cymbalta] 30 mg PO DAILY 12/22/18 [History] Losartan [Cozaar] 12.5 mg PO DAILY 12/22/18 [History] Omeprazole 20 mg PO ACBREAKFAST 12/22/18 [History] Potassium Chloride 20 meq PO DAILY 12/22/18 [History] Sucralfate [Carafate] 1 gm PO QID 12/22/18 [History] Folic Acid 1 mg PO DAILY #30 tablet 12/23/18 [Rx] Naltrexone 50 mg PO DAILY #30 tablet 12/23/18 [Rx] Thiamine [Vitamin B-1] 100 mg PO BEDTIME #30 tab 12/23/18 [Rx] Cranberry Fruit Extract [Cranberry] 0 mg PO DAILY 04/01/19 [History] Lutein/Minerals/Vit A,C & E [Ocuvite] 1 tab PO DAILY 04/01/19 [History] Magnesium 200 mg PO DAILY #30 tablet 04/01/19 [Rx] Montelukast [Singulair] 10 mg PO BEDTIME 04/01/19 [History] Ondansetron [Zofran ODT] 4 mg PO Q6H PRN #20 tab.dis 04/01/19 [Rx] Dexameth/Neomy/Polymyx B [Maxitrol Ophth Oint] 0 gm EYEBOTH TID tube 07/15/19 [Rx] Lactated Ringers [Ringers, Lactated] 75 ml IV ASDIRECTED bag 07/15/19 [Rx] Mirtazapine [Remeron] 15 mg PO BEDTIME tablet 07/15/19 [Rx] OLANZapine [ZyPREXA] 10 mg PO BEDTIME tablet 07/15/19 [Rx] diazePAM [Valium.] 10 mg PO Q8HR tablet 07/15/19 [Rx] Ondansetron [Zofran ODT] 1 tab PO Q8H PRN #10 tab.dis 11/10/19 [Rx] LORazepam [Ativan] 1 mg PO BID PRN #4 tab 12/10/19 [Rx] atenoloL [Atenolol] 25 mg PO QAM #14 tablet 01/31/20 [Rx] chlordiazePOXIDE [Librium] 25 mg PO ASDIRECTED #18 cap 01/31/20 [Rx] Past Medical History HEENT History: Reports: Impaired Vision Other HEENT History: wears glasses Cardiovascular History: Reports: High Cholesterol, Hypertension Respiratory History: Reports: Asthma Gastrointestinal History: Reports: GERD Genitourinary History: Reports: UTI, Recurrent TIRE RECAPPER History: Reports: Other (See Below) Other TIRE RECAPPER History: Patient states she started menopause at 54 yoa Neurological History: Reports: Headaches, Chronic Other Neuro History: headaches Psychiatric History: Reports: Addiction, Anxiety, Bipolar, Depression, Eating Disorders Other Psychiatric History: eating disorder at age 14 Endocrine/Metabolic History: Reports: Osteoporosis Hematologic History: Reports: None Immunologic History: Reports: Other (See Below) Other Immunologic History: recurrent staph infections Oncologic (Cancer) History: Reports: None - Infectious Disease History Infectious Disease History: Reports: Chicken Pox, Measles, Mumps - Past Surgical History Head Surgeries/Procedures: Reports: None HEENT Surgical History: Reports: Adenoidectomy, Oral Surgery, Tonsillectomy, Other (See Below) Other HEENT Surgeries/Procedures: facial surgery to fractures on right side of face from fall. Cardiovascular Surgical History: Reports: None Respiratory Surgical History: Reports: None Other Respiratory Surgeries/Procedures: per ER report GI Surgical History: Reports: Appendectomy Other GI Surgeries/Procedures: GI bleed Female Surgical History: Reports: None Other Female Surgeries/Procedures: Patient states she had her ureters dilated in [facility] Musculoskeletal Surgical History: Reports: ORIF, Shoulder Surgery, Other (See Below) Other Musculoskeletal Surgeries/Procedures:: wrist ORIF Social & Family History - Family History Family Medical History: Unobtainable Cardiac: Reports: None - Tobacco Use Tobacco Use Status *Q: Never Tobacco User Second Hand Smoke Exposure: No - Caffeine Use Caffeine Use: Reports: None Other Caffeine Use: Unknown if ever used due to being currently intoxicated. 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 Constitutional: Denies: Fever, Chills, Malaise, Weakness, Fatigue, Night Sweats, Diaphoresis, Decreased Appetite, Weight Gain HEENT: Denies: Vision Change Respiratory: Denies: Shortness of Breath, Wheezing, Pleuritic Chest Pain, Cough, Sputum, Hemoptysis Cardiovascular: Denies: Chest Pain, Dyspnea on Exertion, Lightheadedness, Orthopnea, Palpitations, PND, Syncope, Other GI/Abdominal: Denies: Abdominal Pain, Anorexia, Black Stool, Bloody Stool, Constipation, Diarrhea, Decreased Appetite, Distension, Flatus, Hematemesis, Hematochezia, Melena, Nausea, Vomiting : Denies: Dysuria, Hematuria Musculoskeletal: Reports: Shoulder Pain (chronic bilateral). Denies: Neck Pain, Arm Pain, Back Pain, Hand Pain, Leg Pain, Foot Pain, Joint Pain, Joint Swelling, Muscle Pain, Muscle Stiffness Skin: Reports: No Symptoms Neurological: Denies: Confusion, Dizziness, Headache, Numbness, Paresthesia, Pre -Existing Deficit, Seizure, Syncope, Tingling, Tremors, Trouble Speaking, Difficulty Walking, Weakness Psychiatric: Reports: Anxiety, Cravings. Denies: Agitation, Confusion, Depression, Hallucinations, Homicidal Ideation, Mood Lability, Suicidal Ideation ED EXAM, GENERAL - Physical Exam Exam: See Below Exam Limited By: Intoxication General Appearance: Alert, Anxious Eye Exam: Bilateral Eye: EOMI, Normal Inspection, Nystagmus (horizontal), PERRL, Vision Changes (none noted) Ears: Normal External Exam, Normal Canal, Hearing Grossly Normal Nose: Normal Inspection, Normal Mucosa, No Blood Throat/Mouth: Normal Inspection, Normal Oropharynx, Normal Voice, No Airway Compromise Head: Atraumatic, Normocephalic Neck: Normal Inspection, Supple, Non-Tender, Full Range of Motion. No: Lymphadenopathy (L), Lymphadenopathy (R) Respiratory/Chest: No Respiratory Distress, Lungs Clear, Normal Breath Sounds, No Accessory Muscle Use, Chest Non-Tender Cardiovascular: Normal Peripheral Pulses, Regular Rate, Rhythm, No Murmur Peripheral Pulses: 2+: Radial (L), Radial (R) GI/Abdominal: Normal Bowel Sounds, Soft, Non-Tender, No Organomegaly, No Distention Back Exam: Normal Inspection, Full Range of Motion. No: CVA Tenderness (L), CVA Tenderness (R), Decreased Range of Motion, Muscle Spasm, Paraspinal Tenderness, Vertebral Tenderness Extremities: Normal Inspection, Normal Range of Motion, Non-Tender, No Pedal Edema Neurological: Alert, Oriented, CN II-XII Intact, Normal Cognition, No Motor/Sensory Deficits Psychiatric: Normal Affect, Normal Mood Skin Exam: Warm, Dry, Intact, Normal Color, No Rash Course - Vital Signs Last Recorded V/S: Last Vital Signs Temp 97.8 F 01/31/20 15:23 Pulse 105 H 01/31/20 20:07 Resp 16 01/31/20 20:07 BP 148/85 H 01/31/20 20:07 Pulse Ox 98 01/31/20 20:07 - Orders/Labs/Meds Labs: Laboratory Tests 01/31/20 01/31/20 01/31/20 Range/Units 15:56 15:56 15:56 WBC 8.49 (3.98-10.04) K/mm3 RBC 3.95 L (3.98-5.22) M/mm3 Hgb 12.0 D (11.2-15.7) gm/dl Hct 37.2 (34.1-44.9) % MCV 94.2 (79.4-94.8) fl MCH 30.4 (25.6-32.2) pg MCHC 32.3 (32.2-35.5) g/dl RDW Std Deviation 56.3 H (36.4-46.3) fL Plt Count 201 D (182-369) K/mm3 MPV 8.9 L (9.4-12.3) fl Neutrophils % (Manual) 88 H (40-60) % Band Neutrophils % 0 (0-10) % Lymphocytes % (Manual) 7 L (20-40) % Atypical Lymphs % 0 % Monocytes % (Manual) 5 (2-10) % Eosinophils % (Manual) 0 L (0.7-5.8) % Basophils % (Manual) 0 L (0.1-1.2) Platelet Estimate Adequate Plt Morphology Comment Normal RBC Morph Comment Normal PT 11.6 (9.7-12.0) SECONDS INR 1.09 APTT 22.8 (21.7-31.4) SECONDS Sodium 137 (136-145) mEq/L Potassium 4.0 (3.5-5.1) mEq/L Chloride 101 (98-107) mEq/L Carbon Dioxide 21 (21-32) mEq/L Anion Gap 19.0 H (5-15) BUN 5 L (7-18) mg/dL Creatinine 0.7 (0.55-1.02) mg/dL Est Cr Clr Drug Dosing TNP Estimated GFR (MDRD) > 60 (>60) mL/min BUN/Creatinine Ratio 7.1 L (14-18) Glucose 138 H (80-115) mg/dL Calcium 8.5 (8.5-10.1) mg/dL Total Bilirubin 1.3 H (0.2-1.0) mg/dL AST 41 H (15-37) U/L ALT 30 (14-59) U/L Alkaline Phosphatase 90 (46-116) U/L Troponin I < 0.017 (0.00-0.056) ng/mL Total Protein 6.0 L (6.4-8.2) g/dl Albumin 3.5 (3.4-5.0) g/dl Globulin 2.5 gm/dL Albumin/Globulin Ratio 1.4 (1-2) TSH 3rd Generation 4.775 H (0.358-3.74) uIU/mL Urine Color (Yellow) Urine Appearance (Clear) Urine pH (5.0-8.0) Ur Specific [place] (1.005-1.030) Urine Protein (Negative) Urine Glucose (UA) (Negative) Urine Ketones (Negative) Urine Occult Blood (Negative) Urine Nitrite (Negative) Urine Bilirubin (Negative) Urine Urobilinogen (0.2-1.0) Ur Leukocyte Esterase (Negative) Urine RBC (0-5) /hpf Urine WBC (0-5) /hpf Ur Squamous Epith Cells (0-5) /hpf Urine Bacteria (FEW) /hpf Urine Mucus (FEW) /hpf Urine Opiates Screen (KNBCSW=859) Ur Buprenorphine Scrn (CUTOFF=10) Ur Oxycodone Screen (EER2LE=163) Urine Methadone Screen (QECUPF=001) Ur Propoxyphene Screen (GBALTM=058) Ur Barbiturates Screen (OMODDS=766) Ur Tricyclics Screen (UAWKUR=643) Ur Phencyclidine Scrn (CUTOFF=25) Ur Amphetamine Screen (IBYOMW=690) U Methamphetamines Scrn (PHWAZH=774) U Benzodiazepines Scrn (JIIDPL=052) U Cocaine Metab Screen (WVIYYU=541) U Marijuana (THC) Screen (CUTOFF=50) Ethyl Alcohol 0.00 (0.00) gm% 01/31/20 01/31/20 Range/Units 16:38 16:38 WBC (3.98-10.04) K/mm3 RBC (3.98-5.22) M/mm3 Hgb (11.2-15.7) gm/dl Hct (34.1-44.9) % MCV (79.4-94.8) fl MCH (25.6-32.2) pg MCHC (32.2-35.5) g/dl RDW Std Deviation (36.4-46.3) fL Plt Count (182-369) K/mm3 MPV (9.4-12.3) fl Neutrophils % (Manual) (40-60) % Band Neutrophils % (0-10) % Lymphocytes % (Manual) (20-40) % Atypical Lymphs % % Monocytes % (Manual) (2-10) % Eosinophils % (Manual) (0.7-5.8) % Basophils % (Manual) (0.1-1.2) Platelet Estimate Plt Morphology Comment RBC Morph Comment PT (9.7-12.0) SECONDS INR APTT (21.7-31.4) SECONDS Sodium (136-145) mEq/L Potassium (3.5-5.1) mEq/L Chloride (98-107) mEq/L Carbon Dioxide (21-32) mEq/L Anion Gap (5-15) BUN (7-18) mg/dL Creatinine (0.55-1.02) mg/dL Est Cr Clr Drug Dosing Estimated GFR (MDRD) (>60) mL/min BUN/Creatinine Ratio (14-18) Glucose (80-115) mg/dL Calcium (8.5-10.1) mg/dL Total Bilirubin (0.2-1.0) mg/dL AST (15-37) U/L ALT (14-59) U/L Alkaline Phosphatase (46-116) U/L Troponin I (0.00-0.056) ng/mL Total Protein (6.4-8.2) g/dl Albumin (3.4-5.0) g/dl Globulin gm/dL Albumin/Globulin Ratio (1-2) TSH 3rd Generation (0.358-3.74) uIU/mL Urine Color Yellow (Yellow) Urine Appearance Clear (Clear) Urine pH 7.0 (5.0-8.0) Ur Specific [place] 1.025 (1.005-1.030) Urine Protein 2+ H (Negative) Urine Glucose (UA) Negative (Negative) Urine Ketones 2+ H (Negative) Urine Occult Blood Trace-intact H (Negative) Urine Nitrite Negative (Negative) Urine Bilirubin 1+ H (Negative) Urine Urobilinogen 0.2 (0.2-1.0) Ur Leukocyte Esterase Negative (Negative) Urine RBC 0-5 (0-5) /hpf Urine WBC 5-10 H (0-5) /hpf Ur Squamous Epith Cells 5-10 H (0-5) /hpf Urine Bacteria Few (FEW) /hpf Urine Mucus Few (FEW) /hpf Urine Opiates Screen Negative (LNVRLK=265) Ur Buprenorphine Scrn Negative (CUTOFF=10) Ur Oxycodone Screen Negative (DUB2ZI=908) Urine Methadone Screen Negative (OIUAWS=906) Ur Propoxyphene Screen Negative (LQFYZF=919) Ur Barbiturates Screen Negative (WBJASA=866) Ur Tricyclics Screen Negative (XAVSIK=887) Ur Phencyclidine Scrn Negative (CUTOFF=25) Ur Amphetamine Screen Negative (HZSHGS=637) U Methamphetamines Scrn Negative (SYPFWW=051) U Benzodiazepines Scrn Negative (HTFKSI=897) U Cocaine Metab Screen Negative (PVQFDN=115) U Marijuana (THC) Screen Negative (CUTOFF=50) Ethyl Alcohol (0.00) gm% Meds: Medications Discontinued Medications Generic Name Dose Route Start Last Admin Trade Name Freq PRN Reason Stop Dose Admin Atenolol 25 mg 01/31/20 19:07 01/31/20 19:19 Tenormin PO 01/31/20 19:08 25 mg ONETIME ONE Administration Sodium Chloride 1,000 mls @ 999 mls/hr 01/31/20 15:37 01/31/20 15:47 Normal Saline IV 01/31/20 16:37 999 mls/hr ONETIME ONE Administration Lorazepam 0.5 mg 01/31/20 16:42 01/31/20 16:52 Ativan IVPUSH 01/31/20 16:43 0.5 mg ONETIME ONE Administration Lorazepam 1 mg 01/31/20 19:07 01/31/20 19:19 Ativan IVPUSH 01/31/20 19:08 1 mg ONETIME ONE Administration Sodium Chloride 10 ml 01/31/20 15:37 01/31/20 15:47 Saline Flush FLUSH 10 ml ASDIRECTED PRN Administration Keep Vein Open - Re-Assessments/Exams Free Text/Narrative Re-Assessment/Exam: On exam patient's blood pressure is 168/89, heart rate regular at 136, respiratory rate 20, O2 sats are 99% on room air. Patient appears very anxious. Patient admits she is anxious. States she was walking back into her residence after checking the mail. She fell over a ross tripped and fell. She denied hitting her head or LOC. She admits to consuming alcohol this morning. She is a alcoholic and does not drink every day. She did drink yesterday. She has been under a lot more stress recently due to legal issues. Denies hitting her head, injuring her neck or back. She has no trauma to her extremities. She does remember the year, who the president is, and where she is currently located. She does not recall what the date is. IV will be established with NS 1l bolus, EKG, and CT of the head. Initial labs will include: CBC, CHEM 14, troponin, coag studies, urinalysis, EtOH, and drug tox. I will hold off on administering Ativan at this time since patient has been consuming alcohol and does not remember the day or the month. We will wait for results of the CT scan before doing so. She does move all extremities. There is no trauma to her tongue noted. There is no discomfort with palpation of her head, neck, back, chest, abdomen, or extremities. No trauma noted on exam. EKG impression:ST Rate [address] of the head impression: Left parietal soft tissue scalp contusion. No acute intracranial process. Increased anxiety I will order Ativan 0.5 mg to be given 0.25 mg initially if no resolution may increase it to 0.5. 1741 Labs reviewed: White blood cell count 8.49, hemoglobin 12, platelet count 201, sodium potassium within normal limits, AG is 19, CO2 21, creatinine 0.7, glucose 138, total bilirubin is 1.3, AST is 41, ALT is 30, troponin less than 0.017, TSH is slightly high at 4.775. UA 2+ protein, occult blood trace intact, bilirubin 1+, urine WBCs 5-10, urine squamous cell epithelial cells 5-10, leukocyte Estrace negative, nitrates negative, toxicology was negative, serum EtOH is zero. SPECT UA is contaminated. She has no voiding symptoms. No urine culture will be obtained since nitrates and leukocyte Estrace are negative. 01/31/20 19:13 Reassessment, heart rate ranges between 103-115. SPO2 98% on room air. Patient has remained normotensive. She feels quite anxious at this time although she feels better after receiving the first dosage of Ativan. She has urinated 3 times since receiving IV fluids. I do not believe the tachycardia is related to a PE. She denies any shortness of breath, cough, chest pain, hemoptysis, or pain or swelling to her lower extremities. She has no history of a DVT or PE. I think this related to the alcohol withdrawal. Her current EtOH is 0.00. Most likely sympathetic response related to the withdrawal of alcohol. Ativan 1 mg IVP along with atenolol 25 mg p.o. will be ordered. Discussed patient with Dr. Vieyra and agrees to not obtain DDimer. Agreed with application of atenolol 25mg po for alcohol withdraw. D 01/31/20 20:15 Patient is sitting upright in bed resting comfortably. Received second dose of Ativan and the 1st of atenolol. She is feeling quite a bit better. Blood pressure currently 148/85, heart rate 105, respiratory 16, O2 sats are 98% on room air. I will discharge her home with a prescription for the atenolol also Librium. She has a appointment with her counselor this coming Saturday to discuss treatment. I have asked the patient to refrain from any alcohol use since receiving ativan and while taking librium. She voiced her understanding. Return precautions were discussed with the patient. 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 Discharge instructions as document. Departure - Departure Time of Disposition: 20:16 Disposition: Home, Self-Care 01 Condition: Good Clinical Impression: Alcohol abuse with alcohol-induced anxiety disorder Alcohol withdrawal Qualifiers: Complication of substance-induced condition: with delirium Qualified Code(s): F10.231 - Alcohol dependence with withdrawal delirium Hematuria Qualifiers: Hematuria type: unspecified type Qualified Code(s): R31.9 - Hematuria, unspecified - Discharge Information Prescriptions: atenoloL [Atenolol] 25 mg PO QAM #14 tablet chlordiazePOXIDE [Librium] 25 mg PO ASDIRECTED #18 cap Instructions: Alcohol Use Disorder, Alcohol Abuse and Nutrition, Managing Anxiety, Adult, Hematuria, Adult Referrals: Renard Verduzco MD [Primary Care Provider] - Forms: ED Department Discharge Additional Instructions: Refrain from alcohol use. Do not drive this evening since receiving a sedative medication. Take the atenolol 25 mg 1 tab every morning. Take the Librium as prescribed for alcohol withdrawal. Seek help for alcohol treatment. Keep appointment with counselor for this coming Saturday. Push the fluids. Do not take Librium and alcohol together. Resume all home medications. Follow-up with your pcp further evaluation for hematuria. Return to the ED if you develop any new or worsening symptoms. Sepsis Event Note (ED) - Evaluation Sepsis Screening Result: No Definite Risk
[2020-01-31] MEDS ORDERED: LORazepam 2 MG/ML SDV IVPUSH ONE ×2 (16:42→19:07)
[2020-01-31] MEDS ORDERED: Atenolol 25 MG Tab PO ONE (19:07)
[2020-01-31 20:08] VITALS: BP 148/85; PULSE 105
--- NOTE | 2020-02-01 08:08 | CT ---
Head CT Technique: Multiple axial sections through the brain were obtained. Intravenous contrast was not utilized. Comparison: Prior MRI brain of 08/21/[address] study of 08/18/13. Findings: Intracranial: Ventricles are mildly dilated. Minimal diminished density is noted within the periventricular white matter compatible with small vessel ischemic demyelination change. No evidence of intracranial hemorrhage. There is a partially empty sella which is a normal variant. Atherosclerotic calcification is seen within the carotid siphon. Previous surgery is noted within the right orbital lateral rim. No acute calvarial finding is appreciated. Soft tissue swelling is noted within the left parietal region. Mastoid sinuses are clear. No acute finding is seen within the paranasal sinuses. Impression: 1. Findings as noted above. 2. Nothing acute is appreciated. Diagnostic code #2 I agree with preliminary report from [facility], finalized on 01/31/20, 5:35 PM [employer]
== END 2020-01-31 20:36 | disposition home or self-care (01) ==
LOC: JD.ED 15:19
DX: S00.03XA Contusion of scalp, initial encounter (principal); F10.221 Alcohol dependence with intoxication delirium; E78.00 Pure hypercholesterolemia, unspecified; I10 Essential (primary) hypertension; J45.909 Unspecified asthma, uncomplicated; K21.9 Gastro-esophageal reflux disease without esophagitis; F31.9 Bipolar disorder, unspecified; F41.9 Anxiety disorder, unspecified; Z88.1 Allergy status to other antibiotic agents; Z88.8 Allergy status to other drugs, medicaments and biological substances; Z79.899 Other long term (current) drug therapy; W01.0XXA Fall on same level from slipping, tripping and stumbling without subsequent striking against object, initial encounter
CPT/HCPCS: 36415; 70450; 80053; 80306; 80307; 81001; 84443; 84484; 85007; 85027; 85610; 85730; 93005; 96374; 96376; 99285; A9270; J2060; J7030; 99284

== ENCOUNTER 2020-02-14 07:47 | Emergency (ER) | payer BC ==
--- NOTE | 2020-02-14 09:08 | EDM.PDOC ---
ED HPI GENERAL MEDICAL PROBLEM - General Chief Complaint: Gastrointestinal Problem Stated Complaint: [facility] Time Seen by Provider: 02/14/20 08:58 - History of Present Illness INITIAL COMMENTS - FREE TEXT/NARRATIVE: 64-year-old female presents the emergency room with a chief complaint of drinking too much. Patient was brought in by EMS with anxiety and shaking. She has not had much to eat or drink in the last 2 days. She decided to stop drinking and has not had a drink since yesterday morning. She is a heavy drinker and has had a lot of problems associated with her drinking such as upper GI bleeds. Patient denies any recent vomiting of blood no black or tarry stools. At this time she just feels really anxious and is complaining of having a very dry mouth. Patient denies any significant pain at this time she is just very anxious. The patient has not had problems with seizures in the past with quitting drinking but has had a lot of problems with anxiety. Today the patient was found to have a fever of nearly 102. She denies a cough she has not had any loss of taste or smell. She denies pain anywhere. Chest Pain Score (Numeric/FACES): 3 - Related Data Allergies Allergy/AdvReac Type Severity Reaction Status Date / Time levofloxacin [From Levaquin] Allergy Rash Verified 02/14/20 07:54 propoxyphene napsylate AdvReac Headache Verified 02/14/20 07:54 [From Darvocet-N] quetiapine fumarate AdvReac Confusion Verified 02/14/20 07:54 [From Seroquel] Home Meds: Home Meds Fluticasone Propion/Salmeterol [Advair 250-50 Diskus] 1 puff IH DAILY 05/24/16 [History] atorvaSTATin [Lipitor] 20 mg PO DAILY 05/24/16 [History] Albuterol Sulfate [Albuterol Sulfate Hfa] 2 puff PO Q4HR PRN 12/22/18 [History] DULoxetine [Cymbalta] 30 mg PO DAILY 12/22/18 [History] Losartan [Cozaar] 12.5 mg PO DAILY 12/22/18 [History] Omeprazole 20 mg PO ACBREAKFAST 12/22/18 [History] Potassium Chloride 20 meq PO DAILY 12/22/18 [History] Sucralfate [Carafate] 1 gm PO QID 12/22/18 [History] Folic Acid 1 mg PO DAILY #30 tablet 12/23/18 [Rx] Thiamine [Vitamin B-1] 100 mg PO BEDTIME #30 tab 12/23/18 [Rx] Cranberry Fruit Extract [Cranberry] 0 mg PO DAILY 04/01/19 [History] Lutein/Minerals/Vit A,C & E [Ocuvite] 1 tab PO DAILY 04/01/19 [History] Magnesium 200 mg PO DAILY #30 tablet 04/01/19 [Rx] Montelukast [Singulair] 10 mg PO BEDTIME 04/01/19 [History] OLANZapine [ZyPREXA] 10 mg PO BEDTIME tablet 07/15/19 [Rx] atenoloL [Atenolol] 25 mg PO QAM #14 tablet 01/31/20 [Rx] Past Medical History HEENT History: Reports: Impaired Vision Other HEENT History: wears glasses Cardiovascular History: Reports: High Cholesterol, Hypertension Respiratory History: Reports: Asthma Gastrointestinal History: Reports: GERD Genitourinary History: Reports: UTI, Recurrent JEWEL SETTER History: Reports: Other (See Below) Other JEWEL SETTER History: Patient states she started menopause at 54 yoa Neurological History: Reports: Headaches, Chronic Other Neuro History: headaches Psychiatric History: Reports: Addiction, Anxiety, Bipolar, Depression, Eating Disorders Other Psychiatric History: eating disorder at age 14 Endocrine/Metabolic History: Reports: Osteoporosis Hematologic History: Reports: None Immunologic History: Reports: Other (See Below) Other Immunologic History: recurrent staph infections Oncologic (Cancer) History: Reports: None - Infectious Disease History Infectious Disease History: Reports: Chicken Pox, Measles, Mumps - Past Surgical History Head Surgeries/Procedures: Reports: None HEENT Surgical History: Reports: Adenoidectomy, Oral Surgery, Tonsillectomy, Other (See Below) Other HEENT Surgeries/Procedures: facial surgery to fractures on right side of face from fall. Cardiovascular Surgical History: Reports: None Respiratory Surgical History: Reports: None Other Respiratory Surgeries/Procedures: per ER report GI Surgical History: Reports: Appendectomy Other GI Surgeries/Procedures: GI bleed Female Surgical History: Reports: None Other Female Surgeries/Procedures: Patient states she had her ureters dilated in [facility] Musculoskeletal Surgical History: Reports: ORIF, Shoulder Surgery, Other (See Below) Other Musculoskeletal Surgeries/Procedures:: wrist ORIF Social & Family History - Family History Family Medical History: Unobtainable Cardiac: Reports: None - Caffeine Use Caffeine Use: Reports: None Other Caffeine Use: Unknown if ever used due to being currently intoxicated. 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 Denies: Fever, Chills HEENT: Reports: No Symptoms Respiratory: Reports: No Symptoms Cardiovascular: Reports: No Symptoms Endocrine: Reports: No Symptoms GI/Abdominal: Reports: Anorexia, Decreased Appetite : Reports: No Symptoms Musculoskeletal: Reports: No Symptoms Skin: Reports: No Symptoms Neurological: Reports: No Symptoms Psychiatric: Reports: Anxiety. Denies: Mood Lability, Suicidal Ideation ED EXAM, GENERAL - Physical Exam Exam: See Below Exam Limited By: No Limitations General Appearance: Alert, No Apparent Distress, Anxious Eye Exam: Bilateral Eye: Normal Inspection Ears: Normal External Exam, Normal Canal, Hearing Grossly Normal, Normal TMs Nose: Normal Inspection, Normal Mucosa, No Blood Throat/Mouth: Normal Lips, Normal Gums, Normal Oropharynx, No Airway Compromise, Other (Dentures on the bottom) Head: Atraumatic, Normocephalic Neck: Normal Inspection, Supple, Non-Tender, Full Range of Motion. No: Lymphadenopathy (L), Lymphadenopathy (R) Respiratory/Chest: No Respiratory Distress, Lungs Clear, Normal Breath Sounds Cardiovascular: Normal Peripheral Pulses, No Edema, No Murmur, Tachycardia GI/Abdominal: Normal Bowel Sounds, Soft, Non-Tender, No Organomegaly, No Distention, No Abnormal Bruit, No Mass Back Exam: Normal Inspection. No: CVA Tenderness (L), CVA Tenderness (R) Extremities: Normal Inspection, Slow Capillary Refill Neurological: Alert, Oriented, Normal Cognition Psychiatric: Anxious Skin Exam: Warm, Dry, Intact Lymphatic: No Adenopathy Course - Vital Signs Last Recorded V/S: Last Vital Signs Temp 36.9 C 02/14/20 09:26 Pulse 128 H 02/14/20 09:26 Resp 20 02/14/20 09:26 BP 158/89 H 02/14/20 09:26 Pulse Ox 94 L 02/14/20 09:26 - Orders/Labs/Meds Orders: Active Orders 24 hr Category Date Time Status EKG 12 Lead [EKG Documentation Completion] [RC] STAT Care 02/14/20 08:15 Activ e Insert Jeffries Catheter [Insert Urinary Catheter] [OM.PC] Care 02/14/20 11:20 Ordered Stat Urinary Catheter Assessment [RC] ASDIRECTED Care 02/14/20 11:20 Active CULTURE BLOOD [BC] Stat Lab 02/14/20 09:40 Received CULTURE BLOOD [BC] Stat Lab 02/14/20 09:50 Received cefTRIAXone [Rocephin] 1 gm Med 02/14/20 11:45 Active Sodium Chloride 0.9% [Normal Saline] 100 ml IV Q24H Blood Culture x2 Reflex Set [OM.PC] Stat Oth 02/14/20 09:12 Ordered Isolation [COMM] Routine Oth 02/14/20 09:24 Ordered Medication Orders Ceftriaxone Sodium 1 gm/ (Sodium Chloride) 100 mls @ 200 mls/hr IV Q24H STEPHANE Last Admin: 02/14/20 11:56 Dose: 200 mls/hr Documented by: GARDENIA Labs: Laboratory Tests 02/14/20 02/14/20 02/14/20 Range/Units 08:15 08:15 08:15 WBC 15.14 H (3.98-10.04) K/mm3 RBC 4.05 (3.98-5.22) M/mm3 Hgb 12.3 (11.2-15.7) gm/dl Hct 38.6 (34.1-44.9) % MCV 95.3 H (79.4-94.8) fl MCH 30.4 (25.6-32.2) pg MCHC 31.9 L (32.2-35.5) g/dl RDW Std Deviation 53.3 H (36.4-46.3) fL Plt Count 261 (182-369) K/mm3 MPV 9.1 L (9.4-12.3) fl Neut % (Auto) 88.6 H (34.0-71.1) % Lymph % (Auto) 6.7 L (19.3-51.7) % Campbell % (Auto) 4.4 L (4.7-12.5) % Eos % (Auto) 0 L (0.7-5.8) Baso % (Auto) 0.2 (0.1-1.2) % Neut # (Auto) 13.40 H (1.56-6.13) K/mm3 Lymph # (Auto) 1.02 L (1.18-3.74) K/mm3 Campbell # (Auto) 0.67 H (0.24-0.36) K/mm3 Eos # (Auto) 0.00 L (0.04-0.36) K/mm3 Baso # (Auto) 0.03 (0.01-0.08) K/mm3 Manual Slide Review Abnormal smear PT 11.7 (9.7-12.0) SECONDS INR 1.10 Sodium 140 (136-145) mEq/L Potassium 3.3 L (3.5-5.1) mEq/L Chloride 100 (98-107) mEq/L Carbon Dioxide 21 (21-32) mEq/L Anion Gap 22.3 H (5-15) BUN 6 L (7-18) mg/dL Creatinine 0.7 (0.55-1.02) mg/dL Est Cr Clr Drug Dosing 65.64 mL/min Estimated GFR (MDRD) > 60 (>60) mL/min BUN/Creatinine Ratio 8.6 L (14-18) Glucose 124 H (80-115) mg/dL Lactic Acid (0.4-2.0) mmol/L Calcium 8.2 L (8.5-10.1) mg/dL Magnesium 0.9 L (1.8-2.4) mg/dl Total Bilirubin 0.4 (0.2-1.0) mg/dL AST 30 (15-37) U/L ALT 22 (14-59) U/L Alkaline Phosphatase 108 (46-116) U/L Total Protein 5.8 L (6.4-8.2) g/dl Albumin 3.0 L (3.4-5.0) g/dl Globulin 2.8 gm/dL Albumin/Globulin Ratio 1.1 (1-2) Urine Color (Yellow) Urine Appearance (Clear) Urine pH (5.0-8.0) Ur Specific Norris (1.005-1.030) Urine Protein (Negative) Urine Glucose (UA) (Negative) Urine Ketones (Negative) Urine Occult Blood (Negative) Urine Nitrite (Negative) Urine Bilirubin (Negative) Urine Urobilinogen (0.2-1.0) Ur Leukocyte Esterase (Negative) Urine RBC (0-5) /hpf Urine WBC (0-5) /hpf Ur Squamous Epith Cells (0-5) /hpf Amorphous Sediment (NOT SEEN) /hpf Urine Bacteria (FEW) /hpf Urine Mucus (FEW) /hpf Urine Opiates Screen (UBFJJU=592) Ur Buprenorphine Scrn (CUTOFF=10) Ur Oxycodone Screen (QOR7YE=464) Urine Methadone Screen (WTTSQG=002) Ur Propoxyphene Screen (YOFJOL=761) Ur Barbiturates Screen (CZXIAH=557) Ur Tricyclics Screen (URNFDO=608) Ur Phencyclidine Scrn (CUTOFF=25) Ur Amphetamine Screen (OKBGNC=663) U Methamphetamines Scrn (UDRAFM=007) U Benzodiazepines Scrn (FLNJEQ=958) U Cocaine Metab Screen (XPCJFC=714) U Marijuana (THC) Screen (CUTOFF=50) Ethyl Alcohol 0.09 (0.00) gm% Influenza Type A RNA (NEGATIVE) Influenza Type B RNA (NEGATIVE) SARS-CoV-2 RNA (DODIE) (NEGATIVE) 02/14/20 02/14/20 02/14/20 Range/Units 08:15 09:45 11:21 WBC (3.98-10.04) K/mm3 RBC (3.98-5.22) M/mm3 Hgb (11.2-15.7) gm/dl Hct (34.1-44.9) % MCV (79.4-94.8) fl MCH (25.6-32.2) pg MCHC (32.2-35.5) g/dl RDW Std Deviation (36.4-46.3) fL Plt Count (182-369) K/mm3 MPV (9.4-12.3) fl Neut % (Auto) (34.0-71.1) % Lymph % (Auto) (19.3-51.7) % Campbell % (Auto) (4.7-12.5) % Eos % (Auto) (0.7-5.8) Baso % (Auto) (0.1-1.2) % Neut # (Auto) (1.56-6.13) K/mm3 Lymph # (Auto) (1.18-3.74) K/mm3 Campbell # (Auto) (0.24-0.36) K/mm3 Eos # (Auto) (0.04-0.36) K/mm3 Baso # (Auto) (0.01-0.08) K/mm3 Manual Slide Review PT (9.7-12.0) SECONDS INR Sodium (136-145) mEq/L Potassium (3.5-5.1) mEq/L Chloride (98-107) mEq/L Carbon Dioxide (21-32) mEq/L Anion Gap (5-15) BUN (7-18) mg/dL Creatinine (0.55-1.02) mg/dL Est Cr Clr Drug Dosing mL/min Estimated GFR (MDRD) (>60) mL/min BUN/Creatinine Ratio (14-18) Glucose (80-115) mg/dL Lactic Acid 5.9 H* (0.4-2.0) mmol/L Calcium (8.5-10.1) mg/dL Magnesium (1.8-2.4) mg/dl Total Bilirubin (0.2-1.0) mg/dL AST (15-37) U/L ALT (14-59) U/L Alkaline Phosphatase (46-116) U/L Total Protein (6.4-8.2) g/dl Albumin (3.4-5.0) g/dl Globulin gm/dL Albumin/Globulin Ratio (1-2) Urine Color Yellow (Yellow) Urine Appearance Clear (Clear) Urine pH 6.5 (5.0-8.0) Ur Specific Norris 1.020 (1.005-1.030) Urine Protein 1+ H (Negative) Urine Glucose (UA) Negative (Negative) Urine Ketones Negative (Negative) Urine Occult Blood Negative (Negative) Urine Nitrite Negative (Negative) Urine Bilirubin Negative (Negative) Urine Urobilinogen 0.2 (0.2-1.0) Ur Leukocyte Esterase Negative (Negative) Urine RBC 0-5 (0-5) /hpf Urine WBC 0-5 (0-5) /hpf Ur Squamous Epith Cells 0-5 (0-5) /hpf Amorphous Sediment Rare H (NOT SEEN) /hpf Urine Bacteria Few (FEW) /hpf Urine Mucus Rare (FEW) /hpf Urine Opiates Screen (DMTCFG=560) Ur Buprenorphine Scrn (CUTOFF=10) Ur Oxycodone Screen (JIW2RA=874) Urine Methadone Screen (QHNAZB=368) Ur Propoxyphene Screen (XXWNQD=713) Ur Barbiturates Screen (WFBXYS=077) Ur Tricyclics Screen (STHYWO=277) Ur Phencyclidine Scrn (CUTOFF=25) Ur Amphetamine Screen (MSCHBJ=712) U Methamphetamines Scrn (GDDGMQ=894) U Benzodiazepines Scrn (JASDQK=834) U Cocaine Metab Screen (ZUGAFO=285) U Marijuana (THC) Screen (CUTOFF=50) Ethyl Alcohol (0.00) gm% Influenza Type A RNA Negative (NEGATIVE) Influenza Type B RNA Negative (NEGATIVE) SARS-CoV-2 RNA (DODIE) Negative (NEGATIVE) 02/14/20 02/14/20 Range/Units 11:21 11:40 WBC (3.98-10.04) K/mm3 RBC (3.98-5.22) M/mm3 Hgb (11.2-15.7) gm/dl Hct (34.1-44.9) % MCV (79.4-94.8) fl MCH (25.6-32.2) pg MCHC (32.2-35.5) g/dl RDW Std Deviation (36.4-46.3) fL Plt Count (182-369) K/mm3 MPV (9.4-12.3) fl Neut % (Auto) (34.0-71.1) % Lymph % (Auto) (19.3-51.7) % Campbell % (Auto) (4.7-12.5) % Eos % (Auto) (0.7-5.8) Baso % (Auto) (0.1-1.2) % Neut # (Auto) (1.56-6.13) K/mm3 Lymph # (Auto) (1.18-3.74) K/mm3 Campbell # (Auto) (0.24-0.36) K/mm3 Eos # (Auto) (0.04-0.36) K/mm3 Baso # (Auto) (0.01-0.08) K/mm3 Manual Slide Review PT (9.7-12.0) SECONDS INR Sodium (136-145) mEq/L Potassium (3.5-5.1) mEq/L Chloride (98-107) mEq/L Carbon Dioxide (21-32) mEq/L Anion Gap (5-15) BUN (7-18) mg/dL Creatinine (0.55-1.02) mg/dL Est Cr Clr Drug Dosing mL/min Estimated GFR (MDRD) (>60) mL/min BUN/Creatinine Ratio (14-18) Glucose (80-115) mg/dL Lactic Acid 3.8 H* (0.4-2.0) mmol/L Calcium (8.5-10.1) mg/dL Magnesium (1.8-2.4) mg/dl Total Bilirubin (0.2-1.0) mg/dL AST (15-37) U/L ALT (14-59) U/L Alkaline Phosphatase (46-116) U/L Total Protein (6.4-8.2) g/dl Albumin (3.4-5.0) g/dl Globulin gm/dL Albumin/Globulin Ratio (1-2) Urine Color (Yellow) Urine Appearance (Clear) Urine pH (5.0-8.0) Ur Specific Norris (1.005-1.030) Urine Protein (Negative) Urine Glucose (UA) (Negative) Urine Ketones (Negative) Urine Occult Blood (Negative) Urine Nitrite (Negative) Urine Bilirubin (Negative) Urine Urobilinogen (0.2-1.0) Ur Leukocyte Esterase (Negative) Urine RBC (0-5) /hpf Urine WBC (0-5) /hpf Ur Squamous Epith Cells (0-5) /hpf Amorphous Sediment (NOT SEEN) /hpf Urine Bacteria (FEW) /hpf Urine Mucus (FEW) /hpf Urine Opiates Screen Negative (TITFEX=999) Ur Buprenorphine Scrn Negative (CUTOFF=10) Ur Oxycodone Screen Negative (QWI2JN=377) Urine Methadone Screen Negative (QMEIUZ=329) Ur Propoxyphene Screen Negative (BHGEGJ=437) Ur Barbiturates Screen Negative (QELRVK=927) Ur Tricyclics Screen Negative (OJPQMV=923) Ur Phencyclidine Scrn Negative (CUTOFF=25) Ur Amphetamine Screen Negative (IWEIVZ=275) U Methamphetamines Scrn Negative (XQAFUY=292) U Benzodiazepines Scrn Negative (SKPCQT=750) U Cocaine Metab Screen Negative (BUMCYX=816) U Marijuana (THC) Screen Negative (CUTOFF=50) Ethyl Alcohol (0.00) gm% Influenza Type A RNA (NEGATIVE) Influenza Type B RNA (NEGATIVE) SARS-CoV-2 RNA (DODIE) (NEGATIVE) Meds: Medications Generic Name Dose Route Start Last Admin Trade Name Abelardo PRN Reason Stop Dose Admin Ceftriaxone Sodium 1 gm/ 100 mls @ 200 mls/hr 02/14/20 11:45 02/14/20 11:56 Sodium Chloride IV 200 mls/hr Q24H STEPHANE Administration Discontinued Medications Generic Name Dose Route Start Last Admin Trade Name Abelardo PRN Reason Stop Dose Admin Lactated Ringer's 1,000 mls @ 999 mls/hr 02/14/20 09:10 02/14/20 09:23 Ringers, Lactated IV 02/14/20 10:10 999 mls/hr .BOLUS ONE Administration Magnesium Sulfate 2 gm in 50 mls @ 25 mls/hr 02/14/20 10:15 02/14/20 10:30 Magnesium Sulfate In Water Premix IV 25 mls/hr Q1H STEPHANE Administration Lactated Ringer's 1,000 mls @ 999 mls/hr 02/14/20 10:14 02/14/20 10:25 Ringers, Lactated IV 02/14/20 11:14 999 mls/hr .BOLUS ONE Administration Lactated Ringer's 1,000 mls @ 999 mls/hr 02/14/20 10:15 02/14/20 11:25 Ringers, Lactated IV 02/14/20 11:15 999 mls/hr .BOLUS ONE Administration Magnesium Sulfate 2 gm in 50 mls @ 25 mls/hr 02/14/20 10:45 02/14/20 10:40 Magnesium Sulfate In Water Premix IV 02/14/20 12:44 Not Given ONETIME ONE Lorazepam 1 mg 02/14/20 09:10 02/14/20 09:19 Ativan IVPUSH 02/14/20 09:11 1 mg ONETIME ONE Administration Lorazepam 1 mg 02/14/20 10:14 02/14/20 10:23 Ativan IVPUSH 02/14/20 10:15 1 mg ONETIME ONE Administration Ondansetron HCl 4 mg 02/14/20 09:10 02/14/20 09:21 Zofran IVPUSH 02/14/20 09:11 4 mg ONETIME ONE Administration Ondansetron HCl 4 mg 02/14/20 12:36 02/14/20 12:43 Zofran IVPUSH 02/14/20 12:37 4 mg ONETIME ONE Administration Potassium Chloride 40 meq 02/14/20 10:12 02/14/20 10:37 Klor-Con M20 PO 02/14/20 10:13 40 meq ONETIME ONE Administration Sucralfate 1 gm 02/14/20 11:36 02/14/20 11:51 Carafate PO 02/14/20 11:37 1 gm ONETIME ONE Administration - Re-Assessments/Exams Free Text/Narrative Re-Assessment/Exam: 02/14/20 13:40 7 to have an infiltrate on her chest x-ray she was treated for pneumonia. Her initial lactic acid was elevated >4 and after 2-1/2 L of lactated Ringer's this was down to 3.5. Blood cultures pending she was given a gram of Rocephin. Her blood alcohol is still 0.09 and she is quite shaky she is unable to get to the bedside commode without assistance. I discussed the situation with Dr. Wiseman who is kind enough to accept the patient and will admit. 02/14/20 14:15 Apparently the patient cannot be kept here because of lack of staffing and the probable need that she will become one-on-one. 02/14/20 14:[address] Decker at [facility] who is kind enough to accept the patient. I have given another gram of magnesium and will continue fluids. Departure - Departure Time of Disposition: 13:43 Disposition: Admitted As Inpatient 68 Clinical Impression: Pneumonia, Chronic alcohol abuse, Hypokalemia, Hypomagnesemia Alcohol withdrawal syndrome Qualifiers: Complication of substance-induced condition: with delirium Qualified Code(s): F10.231 - Alcohol dependence with withdrawal delirium - Discharge Information Referrals: Renard Verduzco MD [Primary Care Provider] - Forms: ED Department Discharge Sepsis Event Note (ED) - Evaluation Sepsis Screening Result: No Definite Risk - Focused Exam Vital Signs: Vital Signs Temp Pulse Resp BP Pulse Ox 02/14/20 09:26 36.9 C 128 H 20 158/89 H 94 L 02/14/20 07:47 37.0 C 138 H 20 156/82 H 98 - My Orders Last 24 Hours: My Active Orders 02/14/20 08:15 EKG 12 Lead [EKG Documentation Completion] [RC] STAT 02/14/20 09:12 Blood Culture x2 Reflex Set [OM.PC] Stat 02/14/20 09:24 Isolation [COMM] Routine 02/14/20 09:40 CULTURE BLOOD [BC] Stat 02/14/20 09:50 CULTURE BLOOD [BC] Stat 02/14/20 11:20 Insert Jeffries Catheter [Insert Urinary Catheter] [OM.PC] Stat Urinary Catheter Assessment [RC] ASDIRECTED 02/14/20 11:45 cefTRIAXone [Rocephin] 1 gm Sodium Chloride 0.9% [Normal Saline] 100 ml IV Q2 4H - Assessment/Plan Last 24 Hours: My Active Orders 02/14/20 08:15 EKG 12 Lead [EKG Documentation Completion] [RC] STAT 02/14/20 09:12 Blood Culture x2 Reflex Set [OM.PC] Stat 02/14/20 09:24 Isolation [COMM] Routine 02/14/20 09:40 CULTURE BLOOD [BC] Stat 02/14/20 09:50 CULTURE BLOOD [BC] Stat 02/14/20 11:20 Insert Jeffries Catheter [Insert Urinary Catheter] [OM.PC] Stat Urinary Catheter Assessment [RC] ASDIRECTED 02/14/20 11:45 cefTRIAXone [Rocephin] 1 gm Sodium Chloride 0.9% [Normal Saline] 100 ml IV Q24H
[2020-02-14] MEDS ORDERED: Ondansetron 4 MG/2 ML SDV IVPUSH ONE ×2 (09:10→12:36)
[2020-02-14] MEDS ORDERED: Lactated Ringers 1,000 ML IV ONE ×3 (09:10→10:15)
[2020-02-14] MEDS ORDERED: LORazepam 2 MG/ML SDV IVPUSH ONE ×3 (09:10→14:16)
[2020-02-14] MEDS ORDERED: Potassium Chloride 20 MEQ Tab.ER PO ONE (10:12)
[2020-02-14] MEDS ORDERED: Magnesium Sulfate/Water 2 GM/50 ML BAG IV SCH (10:15)
[2020-02-14 10:34] LABS: CORONAVIRUS COVID-19 NAA NEGATIVE (NEGATIVE)
[2020-02-14] MEDS ORDERED: Magnesium Sulfate/Water 2 GM/50 ML BAG IV ONE (10:45)
--- NOTE | 2020-02-14 10:51 | CR ---
Chest: Portable view of the chest was obtained. Comparison: Prior chest x-ray of 09/17/19. Previous right shoulder surgery is noted. Heart size and mediastinum are within normal limits for portable technique. Very slight increased density adjacent to the right hemidiaphragm is seen and difficult to exclude minimal area of pneumonia. Lungs otherwise are clear. Impression: 1. Questionable minimal area of pneumonia within the right lung base. 2. Other findings as noted above. No other acute abnormality is seen. Diagnostic code #3
[2020-02-14] MEDS ORDERED: Sucralfate 1 GM Tab PO ONE (11:36)
[2020-02-14] MEDS ORDERED: cefTRIAXone 1 GM in Sodium Chloride 0.9% 100 ML IV SCH (11:45)
--- NOTE | 2020-02-14 13:39 | PCM.HP.2 ---
H&P History of Present Illness - General Date of Service: 02/14/20 Chest Pain Score (Numeric/FACES): 3 - Related Data Allergies/Adverse Reactions: Allergies Allergy/AdvReac Type Severity Reaction Status Date / Time levofloxacin [From Levaquin] Allergy Rash Verified 02/14/20 07:54 propoxyphene napsylate AdvReac Headache Verified 02/14/20 07:54 [From Darvocet-N] quetiapine fumarate AdvReac Confusion Verified 02/14/20 07:54 [From Seroquel] Home Medications: Home Meds Fluticasone Propion/Salmeterol [Advair 250-50 Diskus] 1 puff IH DAILY 05/24/16 [History] atorvaSTATin [Lipitor] 20 mg PO DAILY 05/24/16 [History] Albuterol Sulfate [Albuterol Sulfate Hfa] 2 puff PO Q4HR PRN 12/22/18 [History] DULoxetine [Cymbalta] 30 mg PO DAILY 12/22/18 [History] Losartan [Cozaar] 12.5 mg PO DAILY 12/22/18 [History] Omeprazole 20 mg PO ACBREAKFAST 12/22/18 [History] Potassium Chloride 20 meq PO DAILY 12/22/18 [History] Sucralfate [Carafate] 1 gm PO QID 12/22/18 [History] Folic Acid 1 mg PO DAILY #30 tablet 12/23/18 [Rx] Thiamine [Vitamin B-1] 100 mg PO BEDTIME #30 tab 12/23/18 [Rx] Cranberry Fruit Extract [Cranberry] 0 mg PO DAILY 04/01/19 [History] Lutein/Minerals/Vit A,C & E [Ocuvite] 1 tab PO DAILY 04/01/19 [History] Magnesium 200 mg PO DAILY #30 tablet 04/01/19 [Rx] Montelukast [Singulair] 10 mg PO BEDTIME 04/01/19 [History] OLANZapine [ZyPREXA] 10 mg PO BEDTIME tablet 07/15/19 [Rx] atenoloL [Atenolol] 25 mg PO QAM #14 tablet 01/31/20 [Rx] Past Medical History HEENT History: Reports: Impaired Vision Other HEENT History: wears glasses Cardiovascular History: Reports: High Cholesterol, Hypertension Respiratory History: Reports: Asthma Gastrointestinal History: Reports: GERD Genitourinary History: Reports: UTI, Recurrent [employer] History: Reports: Other (See Below) Other OB/BYN History: Patient states she started menopause at 54 yoa Neurological History: Reports: Headaches, Chronic Other Neuro History: headaches Psychiatric History: Reports: Addiction, Anxiety, Bipolar, Depression, Eating Di sorders Other Psychiatric History: eating disorder at age 14 Endocrine/Metabolic History: Reports: Osteoporosis Hematologic History: Reports: None Immunologic History: Reports: Other (See Below) Other Immunologic History: recurrent staph infections Oncologic (Cancer) History: Reports: None - Infectious Disease History Infectious Disease History: Reports: Chicken Pox, Measles, Mumps - Past Surgical History Head Surgeries/Procedures: Reports: None HEENT Surgical History: Reports: Adenoidectomy, Oral Surgery, Tonsillectomy, Other (See Below) Other HEENT Surgeries/Procedures: facial surgery to fractures on right side of face from fall. Cardiovascular Surgical History: Reports: None Respiratory Surgical History: Reports: None Other Respiratory Surgeries/Procedures: per ER report GI Surgical History: Reports: Appendectomy Other GI Surgeries/Procedures: GI bleed Female Surgical History: Reports: None Other Female Surgeries/Procedures: Patient states she had her ureters dilated in [facility] Musculoskeletal Surgical History: Reports: ORIF, Shoulder Surgery, Other (See Below) Other Musculoskeletal Surgeries/Procedures:: wrist ORIF Social & Family History - Family History Family Medical History: Unobtainable Cardiac: Reports: None - Tobacco Use Tobacco Use Status *Q: Never Tobacco User Second Hand Smoke Exposure: No - Caffeine Use Caffeine Use: Reports: None Other Caffeine Use: Unknown if ever used due to being currently intoxicated. 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 - Vital Signs Vital Signs: Last Vital Signs Temp 36.9 C 02/14/20 09:26 Pulse 128 H 02/14/20 09:26 Resp 20 02/14/20 09:26 BP 158/89 H 02/14/20 09:26 Pulse Ox 94 L 02/14/20 09:26 Weight: 49.895 kg - Patient Data Lab Results Last 24 hrs: Laboratory Results - last 24 hr 12/02/14/20 02/14/20 Range/Units 08:15 08:15 08:15 WBC 15.14 H (3.98-10.04) K/mm3 RBC 4.05 (3.98-5.22) M/mm3 Hgb 12.3 (11.2-15.7) gm/dl Hct 38.6 (34.1-44.9) % MCV 95.3 H (79.4-94.8) fl MCH 30.4 (25.6-32.2) pg MCHC 31.9 L (32.2-35.5) g/dl RDW Std Deviation 53.3 H (36.4-46.3) fL Plt Count 261 (182-369) K/mm3 MPV 9.1 L (9.4-12.3) fl Neut % (Auto) 88.6 H (34.0-71.1) % Lymph % (Auto) 6.7 L (19.3-51.7) % [place] % (Auto) 4.4 L (4.7-12.5) % Eos % (Auto) 0 L (0.7-5.8) Baso % (Auto) 0.2 (0.1-1.2) % Neut # (Auto) 13.40 H (1.56-6.13) K/mm3 Lymph # (Auto) 1.02 L (1.18-3.74) K/mm3 [place] # (Auto) 0.67 H (0.24-0.36) K/mm3 Eos # (Auto) 0.00 L (0.04-0.36) K/mm3 Baso # (Auto) 0.03 (0.01-0.08) K/mm3 Manual Slide Review Abnormal smear PT 11.7 (9.7-12.0) SECONDS INR 1.10 Sodium 140 (136-145) mEq/L Potassium 3.3 L (3.5-5.1) mEq/L Chloride 100 (98-107) mEq/L Carbon Dioxide 21 (21-32) mEq/L Anion Gap 22.3 H (5-15) BUN 6 L (7-18) mg/dL Creatinine 0.7 (0.55-1.02) mg/dL Est Cr Clr Drug Dosing 65.64 mL/min Estimated GFR (MDRD) > 60 (>60) mL/min BUN/Creatinine Ratio 8.6 L (14-18) Glucose 124 H (80-115) mg/dL Lactic Acid (0.4-2.0) mmol/L Calcium 8.2 L (8.5-10.1) mg/dL Magnesium 0.9 L (1.8-2.4) mg/dl Total Bilirubin 0.4 (0.2-1.0) mg/dL AST 30 (15-37) U/L ALT 22 (14-59) U/L Alkaline Phosphatase 108 (46-116) U/L Total Protein 5.8 L (6.4-8.2) g/dl Albumin 3.0 L (3.4-5.0) g/dl Globulin 2.8 gm/dL Albumin/Globulin Ratio 1.1 (1-2) Urine Color (Yellow) Urine Appearance (Clear) Urine pH (5.0-8.0) Ur Specific [place] (1.005-1.030) Urine Protein (Negative) Urine Glucose (UA) (Negative) Urine Ketones (Negative) Urine Occult Blood (Negative) Urine Nitrite (Negative) Urine Bilirubin (Negative) Urine Urobilinogen (0.2-1.0) Ur Leukocyte Esterase (Negative) Urine RBC (0-5) /hpf Urine WBC (0-5) /hpf Ur Squamous Epith Cells (0-5) /hpf Amorphous Sediment (NOT SEEN) /hpf Urine Bacteria (FEW) /hpf Urine Mucus (FEW) /hpf Urine Opiates Screen (VZKVBV=939) Ur Buprenorphine Scrn (CUTOFF=10) Ur Oxycodone Screen (UVX6NT=983) Urine Methadone Screen (XYHEZR=348) Ur Propoxyphene Screen (CDYCNH=777) Ur Barbiturates Screen (WGKINF=388) Ur Tricyclics Screen (WNYUVR=366) Ur Phencyclidine Scrn (CUTOFF=25) Ur Amphetamine Screen (LPOQDP=615) U Methamphetamines Scrn (DJBFSG=023) U Benzodiazepines Scrn (GIOBEE=609) U Cocaine Metab Screen (KIGJTF=203) U Marijuana (THC) Screen (CUTOFF=50) Ethyl Alcohol 0.09 (0.00) gm% Influenza Type A RNA (NEGATIVE) Influenza Type B RNA (NEGATIVE) SARS-CoV-2 RNA (DODIE) (NEGATIVE) 02/14/20 02/14/20 02/14/20 Range/Units 08:15 09:45 11:21 WBC (3.98-10.04) K/mm3 RBC (3.98-5.22) M/mm3 Hgb (11.2-15.7) gm/dl Hct (34.1-44.9) % MCV (79.4-94.8) fl MCH (25.6-32.2) pg MCHC (32.2-35.5) g/dl RDW Std Deviation (36.4-46.3) fL Plt Count (182-369) K/mm3 MPV (9.4-12.3) fl Neut % (Auto) (34.0-71.1) % Lymph % (Auto) (19.3-51.7) % [place] % (Auto) (4.7-12.5) % Eos % (Auto) (0.7-5.8) Baso % (Auto) (0.1-1.2) % Neut # (Auto) (1.56-6.13) K/mm3 Lymph # (Auto) (1.18-3.74) K/mm3 [place] # (Auto) (0.24-0.36) K/mm3 Eos # (Auto) (0.04-0.36) K/mm3 Baso # (Auto) (0.01-0.08) K/mm3 Manual Slide Review PT (9.7-12.0) SECONDS INR Sodium (136-145) mEq/L Potassium (3.5-5.1) mEq/L Chloride (98-107) mEq/L Carbon Dioxide (21-32) mEq/L Anion Gap (5-15) BUN (7-18) mg/dL Creatinine (0.55-1.02) mg/dL Est Cr Clr Drug Dosing mL/min Estimated GFR (MDRD) (>60) mL/min BUN/Creatinine Ratio (14-18) Glucose (80-115) mg/dL Lactic Acid 5.9 H* (0.4-2.0) mmol/L Calcium (8.5-10.1) mg/dL Magnesium (1.8-2.4) mg/dl Total Bilirubin (0.2-1.0) mg/dL AST (15-37) U/L ALT (14-59) U/L Alkaline Phosphatase (46-116) U/L Total Protein (6.4-8.2) g/dl Albumin (3.4-5.0) g/dl Globulin gm/dL Albumin/Globulin Ratio (1-2) Urine Color Yellow (Yellow) Urine Appearance Clear (Clear) Urine pH 6.5 (5.0-8.0) Ur Specific [place] 1.020 (1.005-1.030) Urine Protein 1+ H (Negative) Urine Glucose (UA) Negative (Negative) Urine Ketones Negative (Negative) Urine Occult Blood Negative (Negative) Urine Nitrite Negative (Negative) Urine Bilirubin Negative (Negative) Urine Urobilinogen 0.2 (0.2-1.0) Ur Leukocyte Esterase Negative (Negative) Urine RBC 0-5 (0-5) /hpf Urine WBC 0-5 (0-5) /hpf Ur Squamous Epith Cells 0-5 (0-5) /hpf Amorphous Sediment Rare H (NOT SEEN) /hpf Urine Bacteria Few (FEW) /hpf Urine Mucus Rare (FEW) /hpf Urine Opiates Screen (GEAKYW=861) Ur Buprenorphine Scrn (CUTOFF=10) Ur Oxycodone Screen (OPW1XD=769) Urine Methadone Screen (AKQOOF=756) Ur Propoxyphene Screen (JSCAOX=430) Ur Barbiturates Screen (COZHXJ=201) Ur Tricyclics Screen (HNXHFF=455) Ur Phencyclidine Scrn (CUTOFF=25) Ur Amphetamine Screen (DEDBQU=850) U Methamphetamines Scrn (FQVHSO=355) U Benzodiazepines Scrn (XYNTNW=508) U Cocaine Metab Screen (RMRVED=877) U Marijuana (THC) Screen (CUTOFF=50) Ethyl Alcohol (0.00) gm% Influenza Type A RNA Negative (NEGATIVE) Influenza Type B RNA Negative (NEGATIVE) SARS-CoV-2 RNA (DODIE) Negative (NEGATIVE) 02/14/20 02/14/20 Range/Units 11:21 11:40 WBC (3.98-10.04) K/mm3 RBC (3.98-5.22) M/mm3 Hgb (11.2-15.7) gm/dl Hct (34.1-44.9) % MCV (79.4-94.8) fl MCH (25.6-32.2) pg MCHC (32.2-35.5) g/dl RDW Std Deviation (36.4-46.3) fL Plt Count (182-369) K/mm3 MPV (9.4-12.3) fl Neut % (Auto) (34.0-71.1) % Lymph % (Auto) (19.3-51.7) % [place] % (Auto) (4.7-12.5) % Eos % (Auto) (0.7-5.8) Baso % (Auto) (0.1-1.2) % Neut # (Auto) (1.56-6.13) K/mm3 Lymph # (Auto) (1.18-3.74) K/mm3 [place] # (Auto) (0.24-0.36) K/mm3 Eos # (Auto) (0.04-0.36) K/mm3 Baso # (Auto) (0.01-0.08) K/mm3 Manual Slide Review PT (9.7-12.0) SECONDS INR Sodium (136-145) mEq/L Potassium (3.5-5.1) mEq/L Chloride (98-107) mEq/L Carbon Dioxide (21-32) mEq/L Anion Gap (5-15) BUN (7-18) mg/dL Creatinine (0.55-1.02) mg/dL Est Cr Clr Drug Dosing mL/min Estimated GFR (MDRD) (>60) mL/min BUN/Creatinine Ratio (14-18) Glucose (80-115) mg/dL Lactic Acid 3.8 H* (0.4-2.0) mmol/L Calcium (8.5-10.1) mg/dL Magnesium (1.8-2.4) mg/dl Total Bilirubin (0.2-1.0) mg/dL AST (15-37) U/L ALT (14-59) U/L Alkaline Phosphatase (46-116) U/L Total Protein (6.4-8.2) g/dl Albumin (3.4-5.0) g/dl Globulin gm/dL Albumin/Globulin Ratio (1-2) Urine Color (Yellow) Urine Appearance (Clear) Urine pH (5.0-8.0) Ur Specific [place] (1.005-1.030) Urine Protein (Negative) Urine Glucose (UA) (Negative) Urine Ketones (Negative) Urine Occult Blood (Negative) Urine Nitrite (Negative) Urine Bilirubin (Negative) Urine Urobilinogen (0.2-1.0) Ur Leukocyte Esterase (Negative) Urine RBC (0-5) /hpf Urine WBC (0-5) /hpf Ur Squamous Epith Cells (0-5) /hpf Amorphous Sediment (NOT SEEN) /hpf Urine Bacteria (FEW) /hpf Urine Mucus (FEW) /hpf Urine Opiates Screen Negative (SDVNFR=228) Ur Buprenorphine Scrn Negative (CUTOFF=10) Ur Oxycodone Screen Negative (QLC0YT=320) Urine Methadone Screen Negative (ORXPVG=422) Ur Propoxyphene Screen Negative (DJLCZY=034) Ur Barbiturates Screen Negative (WCMWMU=887) Ur Tricyclics Screen Negative (LGBNHU=361) Ur Phencyclidine Scrn Negative (CUTOFF=25) Ur Amphetamine Screen Negative (VGTJCM=262) U Methamphetamines Scrn Negative (UNPDRD=303) U Benzodiazepines Scrn Negative (TPUOUX=586) U Cocaine Metab Screen Negative (ZVGYSN=334) U Marijuana (THC) Screen Negative (CUTOFF=50) Ethyl Alcohol (0.00) gm% Influenza Type A RNA (NEGATIVE) Influenza Type B RNA (NEGATIVE) SARS-CoV-2 RNA (DODIE) (NEGATIVE) Result Diagrams: 02/14/20 08:15 02/14/20 08:15 Sepsis Event Note - Evaluation Sepsis Screening Result: Severe Sepsis Risk - Focused Exam Vital Signs: Vital Signs Temp Pulse Resp BP Pulse Ox 02/14/20 09:26 36.9 C 128 H 20 158/89 H 94 L 02/14/20 07:47 37.0 C 138 H 20 156/82 H 98 Orders Last 24hrs: Active Orders 24 hr Category Date Time Status EKG 12 Lead [EKG Documentation Completion] [RC] STAT Care 02/14/20 08:15 Active Insert Jeffries Catheter [Insert Urinary Catheter] [OM.PC] Care 02/14/20 11:20 Ordered Stat Urinary Catheter Assessment [RC] ASDIRECTED Care 02/14/20 11:20 Active CULTURE BLOOD [BC] Stat Lab 02/14/20 09:40 Received CULTURE BLOOD [BC] Stat Lab 02/14/20 09:50 Received cefTRIAXone [Rocephin] 1 gm Med 02/14/20 11:45 Active Sodium Chloride 0.9% [Normal Saline] 100 ml IV Q24H Blood Culture x2 Reflex Set [OM.PC] Stat Oth 02/14/20 09:12 Ordered Isolation [COMM] Routine Oth 02/14/20 09:24 Ordered Medication Orders Ceftriaxone Sodium 1 gm/ (Sodium Chloride) 100 mls @ 200 mls/hr IV Q24H [facility] Admin: 02/14/20 11:56 Dose: 200 mls/hr Documented by: GARDENIA
[2020-02-14] MEDS ORDERED: Magnesium Sulfate/D5W 1 GM/100 ML BAG ONE (14:33)
[2020-02-14 15:00] VITALS: BP 150/90; PULSE 131
[2020-02-14] MEDS ORDERED: Lactated Ringers 1,000 ML IV SCH (15:00)
== END 2020-02-14 15:35 | disposition critical access hospital (66) ==
LOC: JD.ED 07:47 → SUPCPDRO 07:47 → JD.ED 15:35
DX: J18.9 Pneumonia, unspecified organism (principal); E87.6 Hypokalemia; E83.42 Hypomagnesemia; F10.231 Alcohol dependence with withdrawal delirium; E78.00 Pure hypercholesterolemia, unspecified; I10 Essential (primary) hypertension; J45.909 Unspecified asthma, uncomplicated; K21.9 Gastro-esophageal reflux disease without esophagitis; F41.9 Anxiety disorder, unspecified; F31.9 Bipolar disorder, unspecified; Z88.1 Allergy status to other antibiotic agents; Z88.8 Allergy status to other drugs, medicaments and biological substances; Z79.899 Other long term (current) drug therapy; Z20.828 Contact with and (suspected) exposure to other viral communicable diseases
CPT/HCPCS: 0240U; 36415; 71045; 80053; 80306; 80307; 81001; 83605; 83735; 85025; 85610; 87040; 93005; 96365; 96366; 96368; 96375; 96376; 99285; A9270; J0696; J2060; J2405; J3475; J7050; J7120; 93010

== ENCOUNTER 2020-03-06 15:44 | Inpatient (IN) | payer BC ==
[2020-03-06] MEDS ORDERED: Ondansetron 4 MG/2 ML SDV IVPUSH ONE (16:02)
[2020-03-06] MEDS ORDERED: Sodium Chloride 0.9% 10 ML Syringe FLUSH PRN (16:02)
[2020-03-06] MEDS ORDERED: Lactated Ringers 1,000 ML IV SCH (16:15)
--- NOTE | 2020-03-06 16:18 | EDM.PDOCBH ---
ED HPI GENERAL MEDICAL PROBLEM - General Chief Complaint: Drug or Alcohol Abuse Stated Complaint: [facility] Time Seen by Provider: 03/06/20 15:51 Source of Information: Reports: Patient, EMS History Limitations: Reports: Intoxication - History of Present Illness INITIAL COMMENTS - FREE TEXT/NARRATIVE: The patient presents by [facility] for alcohol intoxication. The patient says she started drinking at 9am but EMS found her on the floor and in the kitchen with a pillow and blanket. She has some erythema on her hip and swelling in her legs like she was laying there for awhile. She denies falling. She thinks she drank 4 fifths of vodka today. She is an alcoholic and she has been here many times before for the same. She later admits that she has been drinking for days. She has no fever, chills, cough, congestion, runny nose, chest pain, shortness of breath, or abdominal pain. Onset: Gradual Duration: Day(s): Severity: Severe Improves with: Reports: None Worsens with: Reports: None Associated Symptoms: Reports: No Other Symptoms - Related Data Allergies Allergy/AdvReac Type Severity Reaction Status Date / Time levofloxacin [From Levaquin] Allergy Rash Verified 02/14/20 07:54 propoxyphene napsylate AdvReac Headache Verified 02/14/20 07:54 [From Darvocet-N] quetiapine fumarate AdvReac Confusion Verified 02/14/20 07:54 [From Seroquel] Home Meds: Home Meds Fluticasone Propion/Salmeterol [Advair 250-50 Diskus] 1 puff IH DAILY 05/24/16 [History] atorvaSTATin [Lipitor] 20 mg PO DAILY 05/24/16 [History] Albuterol Sulfate [Albuterol Sulfate Hfa] 2 puff PO Q4HR PRN 12/22/18 [History] DULoxetine [Cymbalta] 30 mg PO DAILY 12/22/18 [History] Losartan [Cozaar] 12.5 mg PO DAILY 12/22/18 [History] Omeprazole 20 mg PO ACBREAKFAST 12/22/18 [History] Potassium Chloride 20 meq PO DAILY 12/22/18 [History] Sucralfate [Carafate] 1 gm PO QID 12/22/18 [History] Folic Acid 1 mg PO DAILY #30 tablet 10/29/19 [Rx] Thiamine [Vitamin B-1] 100 mg PO BEDTIME #30 tab 12/23/18 [Rx] Cranberry Fruit Extract [Cranberry] 0 mg PO DAILY 04/01/19 [History] Lutein/Minerals/Vit A,C & E [Ocuvite] 1 tab PO DAILY 04/01/19 [History] Magnesium 200 mg PO DAILY #30 tablet 04/01/19 [Rx] Montelukast [Singulair] 10 mg PO BEDTIME 04/01/19 [History] OLANZapine [ZyPREXA] 10 mg PO BEDTIME tablet 07/15/19 [Rx] atenoloL [Atenolol] 25 mg PO QAM #14 tablet 01/31/20 [Rx] Past Medical History HEENT History: Reports: Impaired Vision Other HEENT History: wears glasses Cardiovascular History: Reports: High Cholesterol, Hypertension Respiratory History: Reports: Asthma Gastrointestinal History: Reports: GERD Genitourinary History: Reports: UTI, Recurrent HELIARC WELDER History: Reports: Other (See Below) Other HELIARC WELDER History: Patient states she started menopause at 54 yoa Neurological History: Reports: Headaches, Chronic Other Neuro History: headaches Psychiatric History: Reports: Addiction, Anxiety, Bipolar, Depression, Eating Disorders Other Psychiatric History: eating disorder at age 14 Endocrine/Metabolic History: Reports: Osteoporosis Hematologic History: Reports: None Immunologic History: Reports: Other (See Below) Other Immunologic History: recurrent staph infections Oncologic (Cancer) History: Reports: None - Infectious Disease History Infectious Disease History: Reports: Chicken Pox, Measles, Mumps - Past Surgical History Head Surgeries/Procedures: Reports: None HEENT Surgical History: Reports: Adenoidectomy, Oral Surgery, Tonsillectomy, Other (See Below) Other HEENT Surgeries/Procedures: facial surgery to fractures on right side of face from fall. Cardiovascular Surgical History: Reports: None Respiratory Surgical History: Reports: None Other Respiratory Surgeries/Procedures: per ER report GI Surgical History: Reports: Appendectomy Other GI Surgeries/Procedures: GI bleed Female Surgical History: Reports: None Other Female Surgeries/Procedures: Patient states she had her ureters dilated in [facility] Musculoskeletal Surgical History: Reports: ORIF, Shoulder Surgery, Other (See Below) Other Musculoskeletal Surgeries/Procedures:: wrist ORIF Social & Family History - Family History Family Medical History: Unobtainable Cardiac: Reports: None - Caffeine Use Caffeine Use: Reports: None Other Caffeine Use: Unknown if ever used due to being currently intoxicated. 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[employer]) ED ROS GENERAL - Review of Systems Review Of Systems: See Below Constitutional: Reports: No Symptoms HEENT: Reports: No Symptoms Respiratory: Reports: No Symptoms Cardiovascular: Reports: No Symptoms Endocrine: Reports: No Symptoms GI/Abdominal: Reports: No Symptoms : Reports: No Symptoms Musculoskeletal: Reports: No Symptoms Skin: Reports: No Symptoms ED EXAM, BEHAVIORAL HEALTH - Physical Exam Exam: See Below Exam Limited By: Intoxication General Appearance: Other (sleepy but she will answer my questions) Ears: Normal External Exam Nose: Normal Inspection Head: Atraumatic, Normocephalic Neck: Normal Inspection, Supple, Non-Tender Respiratory/Chest: No Respiratory Distress, Lungs Clear, Normal Breath Sounds Cardiovascular: Regular Rate, Rhythm, No Edema, No Murmur GI/Abdominal: Soft, Non-Tender, No Organomegaly, No Mass Back Exam: Normal Inspection Extremities: Other (Erythema to the right hip area. Edema to both legs) COURSE, BEHAVIORAL HEALTH COMP - Course Vital Signs: Last Vital Signs Temp 96.1 F L 03/06/20 16:03 Pulse 106 H 03/06/20 16:03 Resp 20 03/06/20 16:03 BP 141/86 H 03/06/20 16:03 Pulse Ox 100 03/06/20 16:03 Orders, Labs, Meds: Active Orders 24 hr Category Date Time Status Cardiac Monitoring [RC] . DIRECTED Care 03/06/20 16:02 Active Peripheral IV Care [RC] . DIRECTED Care 03/06/20 16:03 Active UA RFX EVAN AND CULT IF INDIC [URIN] Stat Lab 03/06/20 16:15 Received Lactated Ringers [Ringers, Lactated] 1,000 ml Med 03/06/20 16:15 Active IV .BOLUS Magnesium Sulfate/Water [Magnesium Sulfate in Water Med 03/06/20 17:16 Active Premix] 4 gm Premix Bag 1 bag IV ONETIME Potassium Chloride [KCl 10 MEQ in Water 100 ML] 10 meq Med 03/06/20 17:15 Active Premix Bag 1 bag IV Q1H Sodium Chloride 0.9% [Saline Flush] Med 03/06/20 16:02 Active 10 ml FLUSH ASDIRECTED PRN Thiamine [Vitamin B-1] Med 03/06/20 17:22 Once 100 mg IVPUSH ONETIME ONE ED Antiemetic Medication Reflex [OM.PC] Stat Oth 03/06/20 16:02 Ordered Peripheral IV Insertion Adult [OM.PC] Stat Oth 03/06/20 16:02 Ordered Medication Orders Lactated Ringer's (Ringers, Lactated) 1,000 mls @ 500 mls/hr IV .BOLUS STEPHANE Last Admin: 03/06/20 16:10 Dose: 500 mls/hr Documented by: ELVIS Potassium Chloride 10 meq/ (Premix) 100 mls @ 100 mls/hr IV Q1H STEPHANE Stop: 03/06/20 21:14 Magnesium Sulfate 4 gm/ Premix 50 mls @ 12.5 mls/hr IV ONETIME ONE Stop: 03/06/20 21:15 Sodium Chloride (Saline Flush) 10 ml FLUSH ASDIRECTED PRN PRN Reason: Keep Vein Open Last Admin: 03/06/20 16:10 Dose: 10 ml Documented by: NABILA Laboratory Tests 03/06/20 03/06/20 03/06/20 Range/Units 16:00 16:15 16:36 WBC 15.31 H (3.98-10.04) K/mm3 RBC 4.06 (3.98-5.22) M/mm3 Hgb 11.8 (11.2-15.7) gm/dl Hct 36.4 (34.1-44.9) % MCV 89.7 D (79.4-94.8) fl MCH 29.1 (25.6-32.2) pg MCHC 32.4 (32.2-35.5) g/dl RDW Std Deviation 49.3 H (36.4-46.3) fL Plt Count 503 H D (182-369) K/mm3 MPV 8.7 L (9.4-12.3) fl Neut % (Auto) 84.5 H (34.0-71.1) % Lymph % (Auto) 13.1 L (19.3-51.7) % [place] % (Auto) 1.8 L (4.7-12.5) % Eos % (Auto) 0.1 L (0.7-5.8) Baso % (Auto) 0.2 (0.1-1.2) % Neut # (Auto) 12.95 H (1.56-6.13) K/mm3 Lymph # (Auto) 2.00 (1.18-3.74) K/mm3 [place] # (Auto) 0.27 (0.24-0.36) K/mm3 Eos # (Auto) 0.02 L (0.04-0.36) K/mm3 Baso # (Auto) 0.03 (0.01-0.08) K/mm3 Manual Slide Review Abnormal smear Sodium (136-145) mEq/L Potassium (3.5-5.1) mEq/L Chloride (98-107) mEq/L Carbon Dioxide (21-32) mEq/L Anion Gap (5-15) BUN (7-18) mg/dL Creatinine (0.55-1.02) mg/dL Est Cr Clr Drug Dosing mL/min Estimated GFR (MDRD) (>60) mL/min BUN/Creatinine Ratio (14-18) Glucose (80-115) mg/dL Calcium (8.5-10.1) mg/dL Magnesium (1.8-2.4) mg/dl Total Bilirubin (0.2-1.0) mg/dL AST (15-37) U/L ALT (14-59) U/L Alkaline Phosphatase (46-116) U/L Creatine Kinase (26-192) U/L Total Protein (6.4-8.2) g/dl Albumin (3.4-5.0) g/dl Globulin gm/dL Albumin/Globulin Ratio (1-2) Urine Opiates Screen Negative (CTNJLV=568) Ur Buprenorphine Scrn Negative (CUTOFF=10) Ur Oxycodone Screen Negative (OJB6IN=271) Urine Methadone Screen Negative (QVBBYG=578) Ur Propoxyphene Screen Negative (IFGOGK=530) Ur Barbiturates Screen Negative (GZRJBW=857) Ur Tricyclics Screen Negative (FUQYZR=677) Ur Phencyclidine Scrn Negative (CUTOFF=25) Ur Amphetamine Screen Negative (RNZJIV=607) U Methamphetamines Scrn Negative (WBDWRR=518) U Benzodiazepines Scrn Negative (PZLPRG=886) U Cocaine Metab Screen Negative (DPAFIG=638) U Marijuana (THC) Screen Negative (CUTOFF=50) Ethyl Alcohol (0.00) gm% SARS-CoV-2 RNA (DOIDE) Negative (NEGATIVE) 03/06/20 Range/Units 16:36 WBC (3.98-10.04) K/mm3 RBC (3.98-5.22) M/mm3 Hgb (11.2-15.7) gm/dl Hct (34.1-44.9) % MCV (79.4-94.8) fl MCH (25.6-32.2) pg MCHC (32.2-35.5) g/dl RDW Std Deviation (36.4-46.3) fL Plt Count (182-369) K/mm3 MPV (9.4-12.3) fl Neut % (Auto) (34.0-71.1) % Lymph % (Auto) (19.3-51.7) % [place] % (Auto) (4.7-12.5) % Eos % (Auto) (0.7-5.8) Baso % (Auto) (0.1-1.2) % Neut # (Auto) (1.56-6.13) K/mm3 Lymph # (Auto) (1.18-3.74) K/mm3 [place] # (Auto) (0.24-0.36) K/mm3 Eos # (Auto) (0.04-0.36) K/mm3 Baso # (Auto) (0.01-0.08) K/mm3 Manual Slide Review Sodium 140 (136-145) mEq/L Potassium 2.6 L (3.5-5.1) mEq/L Chloride 99 (98-107) mEq/L Carbon Dioxide 26 (21-32) mEq/L Anion Gap 17.6 H (5-15) BUN 10 (7-18) mg/dL Creatinine 0.4 L (0.55-1.02) mg/dL Est Cr Clr Drug Dosing 124.26 mL/min Estimated GFR (MDRD) > 60 (>60) mL/min BUN/Creatinine Ratio 25.0 H (14-18) Glucose 99 (80-115) mg/dL Calcium 7.3 L (8.5-10.1) mg/dL Magnesium 1.4 L (1.8-2.4) mg/dl Total Bilirubin 0.3 (0.2-1.0) mg/dL AST 60 H (15-37) U/L ALT 26 (14-59) U/L Alkaline Phosphatase 155 H (46-116) U/L Creatine Kinase 647 H (26-192) U/L Total Protein 5.3 L (6.4-8.2) g/dl Albumin 2.4 L (3.4-5.0) g/dl Globulin 2.9 gm/dL Albumin/Globulin Ratio 0.8 L (1-2) Urine Opiates Screen (XQRWKT=090) Ur Buprenorphine Scrn (CUTOFF=10) Ur Oxycodone Screen (JAK7BT=832) Urine Methadone Screen (ONFIJX=004) Ur Propoxyphene Screen (PXSLUH=701) Ur Barbiturates Screen (MTYXHB=320) Ur Tricyclics Screen (BWCPSR=071) Ur Phencyclidine Scrn (CUTOFF=25) Ur Amphetamine Screen (PZJDMM=913) U Methamphetamines Scrn (ANDBHN=234) U Benzodiazepines Scrn (CYRDMB=423) U Cocaine Metab Screen (WICCNT=253) U Marijuana (THC) Screen (CUTOFF=50) Ethyl Alcohol 0.50 (0.00) gm% SARS-CoV-2 RNA (DODIE) (NEGATIVE) Medications Generic Name Dose Route Start Last Admin Trade Name Freq PRN Reason Stop Dose Admin Lactated Ringer's 1,000 mls @ 500 mls/hr 03/06/20 16:15 03/06/20 16:10 Ringers, Lactated IV 500 mls/hr .BOLUS STEPHANE Administration Potassium Chloride 10 meq/ 100 mls @ 100 mls/hr 03/06/20 17:15 Premix IV 03/06/20 21:14 Q1H STEPHANE Magnesium Sulfate 4 gm/ Premix 50 mls @ 12.5 mls/hr 03/06/20 17:16 IV 03/06/20 21:15 ONETIME ONE Sodium Chloride 10 ml 03/06/20 16:02 03/06/20 16:10 Saline Flush FLUSH 10 ml ASDIRECTED PRN Administration Keep Vein Open Discontinued Medications Generic Name Dose Route Start Last Admin Trade Name Freq PRN Reason Stop Dose Admin Ondansetron HCl 4 mg 03/06/20 16:02 03/06/20 16:10 Zofran IVPUSH 03/06/20 16:03 4 mg ONETIME ONE Administration Re-Assessment/Re-Exam: I ordered an IV LR 1L bolus, zofran 4mg IV, labs and UDS. Her WBC is elevated at 15.31. Her K is low at 2.6. Her anion gap is elevated at 17.6. Her creatinine is low at 0.4. Her calcium is low at 7.3. Her magnesium is low at 1.4. Her alk phos is elevated at 155. Her CK is elevated at 647. Her UDS is negative. Her ETOH is elevated at 0.5. Her COVID 19 is negative. I have ordered LR at 150ml/hr, potassium 40meq IV and magnesium 4 grams IV. I cannot send her home like this. I called Dr Wiseman and he agreed to the admission. Departure - Departure Time of Disposition: 17:30 Disposition: DC/Tfer to [facility] 02 Condition: Serious Clinical Impression: Alcohol abuse, Hypokalemia, Hypomagnesemia, Hypocalcemia Alcohol intoxication Qualifiers: Complication of substance-induced condition: uncomplicated Qualified Code(s): F10.920 - Alcohol use, unspecified with intoxication, uncomplicated - Discharge Information Forms: ED Department Discharge Sepsis Event Note (ED) - Focused Exam Vital Signs: Vital Signs Temp Pulse Resp BP Pulse Ox 03/06/20 16:03 96.1 F L 106 H 20 141/86 H 100 - My Orders Last 24 Hours: My Active Orders 03/06/20 16:02 Cardiac Monitoring [RC] . DIRECTED Sodium Chloride 0.9% [Saline Flush] 10 ml FLUSH ASDIRECTED PRN ED Antiemetic Medication Reflex [OM.PC] Stat Peripheral IV Insertion Adult [OM.PC] Stat 03/06/20 16:03 Peripheral IV Care [RC] . DIRECTED 03/06/20 16:15 UA RFX EVAN AND CULT IF INDIC [URIN] Stat Lactated Ringers [Ringers, Lactated] 1,000 ml IV .BOLUS 03/06/20 17:15 Potassium Chloride [KCl 10 MEQ in Water 100 ML] 10 meq Premix Bag 1 bag IV Q1H 03/06/20 17:16 Magnesium Sulfate/Water [Magnesium Sulfate in Water Premix] 4 gm Premix Bag 1 bag IV ONETIME 03/06/20 17:22 Thiamine [Vitamin B-1] 100 mg IVPUSH ONETIME ONE - Assessment/Plan Last 24 Hours: My Active Orders 03/06/20 16:02 Cardiac Monitoring [RC] . DIRECTED Sodium Chloride 0.9% [Saline Flush] 10 ml FLUSH ASDIRECTED PRN ED Antiemetic Medication Reflex [OM.PC] Stat Peripheral IV Insertion Adult [OM.PC] Stat 03/06/20 16:03 Peripheral IV Care [RC] . DIRECTED 03/06/20 16:15 UA RFX EVAN AND CULT IF INDIC [URIN] Stat Lactated Ringers [Ringers, Lactated] 1,000 ml IV .BOLUS 03/06/20 17:15 Potassium Chloride [KCl 10 MEQ in Water 100 ML] 10 meq Premix Bag 1 bag IV Q1H 03/06/20 17:16 Magnesium Sulfate/Water [Magnesium Sulfate in Water Premix] 4 gm Premix Bag 1 bag IV ONETIME 03/06/20 17:22 Thiamine [Vitamin B-1] 100 mg IVPUSH ONETIME ONE
[2020-03-06] MEDS ORDERED: Magnesium Sulfate/Water 4 GM in Premix Bag 1 BAG IV ONE (17:16)
[2020-03-06] MEDS ORDERED: Thiamine 200 MG/2 ML MDV IVPUSH ONE (17:22)
--- NOTE | 2020-03-06 17:29 | PCM.HP.2 ---
H&P History of Present Illness - General Date of Service: 03/06/20 Admit Problem/Dx: ETOH Abuse Source of Information: Patient, Old Records, Provider, RN Notes Reviewed, Other History Limitations: Reports: Intoxication, Physical Impairment - History of Present Illness Initial Comments - Free Text/Narative: This is a 64 yo white female with past medical hx/o Impaired Vision, Hypertension, Hyperlipidemia, Asthma, GERD, Recurrent UTI, Chronic Headaches, Eating Disorder, Osteoporosis, Chronic ETOH Abuse/Use, Anxiety, Depression and Bipolar Disorder who was brought in to ED by EMS for evaluation of ETOH Intoxication. She is known to the hospital due to multiple admissions related to acute alcoholism. EMS found blanket and a pillow in the kitchen and it was felt she had been sleeping there. She drinks about 4/5th of vodka a day. She has been drinking heavily for days now. Her last drink was this morning. She denies having fever, chills, shortness of breath, or chest pain. No URI symptoms. No GI/ complaints. Her initial work up in ED shows a CBC remarkable for WBC of 15.31, Platelet of 503, and Neutrophils of 12.95. Her Chemistry is significant for K of 2.6, AG of 17.6, Ca of 7.3, Mg of 1.4, AST of 60, Alk Phos of 155, CK of 647, and Albumin of 2.4. Her UA is negative for UTI. Her UDS and Covid-19 tests are both negative. Her CYNTHIA level is 0.50. Her vitals show a temp fo 35.6C, HR of 106, BP of 141/86 mmHg, RR of 20 and O2 of 100% on RA. Like her previous admissions, she is coming for alcohol detoxification. Left Shoulder Pain Score (Numeric/FACES): 5 - Related Data Allergies/Adverse Reactions: Allergies Allergy/AdvReac Type Severity Reaction Status Date / Time levofloxacin [From Levaquin] Allergy Rash Verified 03/06/20 22:49 propoxyphene napsylate AdvReac Headache Verified 03/06/20 22:49 [From Darvocet-N] Home Medications: Home Meds Fluticasone Propion/Salmeterol [Advair 250-50 Diskus] 1 puff IH DAILY 05/24/16 [History] atorvaSTATin [Lipitor] 20 mg PO DAILY 05/24/16 [History] Albuterol Sulfate [Albuterol Sulfate Hfa] 2 puff PO Q4HR PRN 12/22/18 [History] DULoxetine [Cymbalta] 30 mg PO DAILY 12/22/18 [History] Losartan [Cozaar] 12.5 mg PO DAILY 12/22/18 [History] Omeprazole 20 mg PO ACBREAKFAST 12/22/18 [History] Potassium Chloride 20 meq PO DAILY 12/22/18 [History] Sucralfate [Carafate] 1 gm PO QID 12/22/18 [History] Folic Acid 1 mg PO DAILY #30 tablet 12/23/18 [Rx] Thiamine [Vitamin B-1] 100 mg PO BEDTIME #30 tab 12/23/18 [Rx] Cranberry Fruit Extract [Cranberry] 0 mg PO DAILY 04/01/19 [History] Lutein/Minerals/Vit A,C & E [Ocuvite] 1 tab PO DAILY 04/01/19 [History] Magnesium 200 mg PO DAILY #30 tablet 04/01/19 [Rx] Montelukast [Singulair] 10 mg PO BEDTIME 04/01/19 [History] OLANZapine [ZyPREXA] 10 mg PO BEDTIME tablet 07/15/19 [Rx] atenoloL [Atenolol] 25 mg PO QAM #14 tablet 01/31/20 [Rx] Past Medical History HEENT History: Reports: Impaired Vision Other HEENT History: wears glasses Cardiovascular History: Reports: High Cholesterol, Hypertension Respiratory History: Reports: Asthma Gastrointestinal History: Reports: GERD Genitourinary History: Reports: UTI, Recurrent [employer] History: Reports: Other (See Below) Other OB/BYN History: Patient states she started menopause at 54 yoa Neurological History: Reports: Headaches, Chronic Other Neuro History: headaches Psychiatric History: Reports: Addiction, Anxiety, Bipolar, Depression, Eating Di sorders Other Psychiatric History: eating disorder at age 14 Endocrine/Metabolic History: Reports: Osteoporosis Hematologic History: Reports: None Immunologic History: Reports: Other (See Below) Other Immunologic History: recurrent staph infections Oncologic (Cancer) History: Reports: None - Infectious Disease History Infectious Disease History: Reports: Chicken Pox, Measles, Mumps - Past Surgical History Head Surgeries/Procedures: Reports: None HEENT Surgical History: Reports: Adenoidectomy, Oral Surgery, Tonsillectomy, Other (See Below) Other HEENT Surgeries/Procedures: facial surgery to fractures on right side of face from fall. Cardiovascular Surgical History: Reports: None Respiratory Surgical History: Reports: None Other Respiratory Surgeries/Procedures: per ER report GI Surgical History: Reports: Appendectomy Other GI Surgeries/Procedures: GI bleed Female Surgical History: Reports: None Other Female Surgeries/Procedures: Patient states she had her ureters dilated in college Musculoskeletal Surgical History: Reports: ORIF, Shoulder Surgery, Other (See Below) Other Musculoskeletal Surgeries/Procedures:: wrist ORIF Social & Family History - Family History Family Medical History: Unobtainable Cardiac: Reports: None - Tobacco Use Tobacco Use Status *Q: Never Tobacco User - Caffeine Use Caffeine Use: Reports: None Other Caffeine Use: Unknown if ever used due to being currently intoxicated. 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 Denies: Chest Pain Gastrointestinal: Denies: Abdominal Pain, Nausea, Vomiting Musculoskeletal: Denies: Joint Pain Skin: Denies: Cyanosis Neurological: Reports: Gait Disturbance. Denies: Confusion, Dizziness Hematologic/Lymphatic: Reports: No Symptoms Immunologic: Reports: No Symptoms Exam - Exam Exam: See Below - Vital Signs Vital Signs: Last Vital Signs Temp 35.6 C L 03/06/20 16:03 Pulse 106 H 03/06/20 16:03 Resp 20 03/06/20 16:03 BP 141/86 H 03/06/20 16:03 Pulse Ox 100 03/06/20 16:03 Weight: 53.977 kg - Exam General: Lethargic HEENT: Conjunctiva Clear, Hearing Intact, Nares Patent, Normal Nasal Septum, Pupils Equal, Pupils Reactive. No: EOMI Neck: Supple, Trachea Midline Lungs: Normal Respiratory Effort, Decreased Breath Sounds Cardiovascular: Tachycardia GI/Abdominal Exam: Normal Bowel Sounds, Soft, Non-Tender, No Organomegaly, No Distention, No Abnormal Bruit (Female) Exam: Deferred Rectal (Female) Exam: Deferred Back Exam: Normal Inspection, Decreased Range of Motion Extremities: Normal Inspection, Normal Range of Motion, Non-Tender, No Pedal Edema, Pedal Edema (on both feet), Increased Warmth, Other (erythema on both lower legs) Peripheral Pulses: 2+: Dorsalis Pedis (L), Dorsalis Pedis (R) Skin: Warm, Dry, Intact Neuro Extensive - Mental Status: Normal Mood/Affect, Other (not appropriate due to intoxication) Neuro Extensive - Motor, Sensory, Reflexes: Abnormal Gait Psychiatric: No: Anxious, Suicidal Ideation, Homicidal Ideation, Hallucinations, Withdrawal Symptoms Physical Exam Comments:: Se is sedation from intoxication - Patient Data Lab Results Last 24 hrs: Laboratory Results - last 24 hr 03/06/20 03/06/20 03/06/20 Range/Units 16:00 16:15 16:36 WBC 15.31 H (3.98-10.04) K/mm3 RBC 4.06 (3.98-5.22) M/mm3 Hgb 11.8 (11.2-15.7) gm/dl Hct 36.4 (34.1-44.9) % MCV 89.7 D (79.4-94.8) fl MCH 29.1 (25.6-32.2) pg MCHC 32.4 (32.2-35.5) g/dl RDW Std Deviation 49.3 H (36.4-46.3) fL Plt Count 503 H D (182-369) K/mm3 MPV 8.7 L (9.4-12.3) fl Neut % (Auto) 84.5 H (34.0-71.1) % Lymph % (Auto) 13.1 L (19.3-51.7) % Kings % (Auto) 1.8 L (4.7-12.5) % Eos % (Auto) 0.1 L (0.7-5.8) Baso % (Auto) 0.2 (0.1-1.2) % Neut # (Auto) 12.95 H (1.56-6.13) K/mm3 Lymph # (Auto) 2.00 (1.18-3.74) K/mm3 Kings # (Auto) 0.27 (0.24-0.36) K/mm3 Eos # (Auto) 0.02 L (0.04-0.36) K/mm3 Baso # (Auto) 0.03 (0.01-0.08) K/mm3 Manual Slide Review Abnormal smear Sodium (136-145) mEq/L Potassium (3.5-5.1) mEq/L Chloride (98-107) mEq/L Carbon Dioxide (21-32) mEq/L Anion Gap (5-15) BUN (7-18) mg/dL Creatinine (0.55-1.02) mg/dL Est Cr Clr Drug Dosing mL/min Estimated GFR (MDRD) (>60) mL/min BUN/Creatinine Ratio (14-18) Glucose (80-115) mg/dL Calcium (8.5-10.1) mg/dL Magnesium (1.8-2.4) mg/dl Total Bilirubin (0.2-1.0) mg/dL AST (15-37) U/L ALT (14-59) U/L Alkaline Phosphatase (46-116) U/L Creatine Kinase (26-192) U/L Total Protein (6.4-8.2) g/dl Albumin (3.4-5.0) g/dl Globulin gm/dL Albumin/Globulin Ratio (1-2) Urine Opiates Screen Negative (NEPCOZ=901) Ur Buprenorphine Scrn Negative (CUTOFF=10) Ur Oxycodone Screen Negative (RVT1YZ=332) Urine Methadone Screen Negative (EZCNDC=123) Ur Propoxyphene Screen Negative (CXYUGY=098) Ur Barbiturates Screen Negative (WBNBSU=453) Ur Tricyclics Screen Negative (NTOIMS=548) Ur Phencyclidine Scrn Negative (CUTOFF=25) Ur Amphetamine Screen Negative (PZZZDA=185) U Methamphetamines Scrn Negative (VNEGNU=295) U Benzodiazepines Scrn Negative (MTDHEM=492) U Cocaine Metab Screen Negative (ZDNEOD=107) U Marijuana (THC) Screen Negative (CUTOFF=50) Ethyl Alcohol (0.00) gm% SARS-CoV-2 RNA (DODIE) Negative (NEGATIVE) 03/06/20 Range/Units 16:36 WBC (3.98-10.04) K/mm3 RBC (3.98-5.22) M/mm3 Hgb (11.2-15.7) gm/dl Hct (34.1-44.9) % MCV (79.4-94.8) fl MCH (25.6-32.2) pg MCHC (32.2-35.5) g/dl RDW Std Deviation (36.4-46.3) fL Plt Count (182-369) K/mm3 MPV (9.4-12.3) fl Neut % (Auto) (34.0-71.1) % Lymph % (Auto) (19.3-51.7) % Kings % (Auto) (4.7-12.5) % Eos % (Auto) (0.7-5.8) Baso % (Auto) (0.1-1.2) % Neut # (Auto) (1.56-6.13) K/mm3 Lymph # (Auto) (1.18-3.74) K/mm3 Kings # (Auto) (0.24-0.36) K/mm3 Eos # (Auto) (0.04-0.36) K/mm3 Baso # (Auto) (0.01-0.08) K/mm3 Manual Slide Review Sodium 140 (136-145) mEq/L Potassium 2.6 L (3.5-5.1) mEq/L Chloride 99 (98-107) mEq/L Carbon Dioxide 26 (21-32) mEq/L Anion Gap 17.6 H (5-15) BUN 10 (7-18) mg/dL Creatinine 0.4 L (0.55-1.02) mg/dL Est Cr Clr Drug Dosing 124.26 mL/min Estimated GFR (MDRD) > 60 (>60) mL/min BUN/Creatinine Ratio 25.0 H (14-18) Glucose 99 (80-115) mg/dL Calcium 7.3 L (8.5-10.1) mg/dL Magnesium 1.4 L (1.8-2.4) mg/dl Total Bilirubin 0.3 (0.2-1.0) mg/dL AST 60 H (15-37) U/L ALT 26 (14-59) U/L Alkaline Phosphatase 155 H (46-116) U/L Creatine Kinase 647 H (26-192) U/L Total Protein 5.3 L (6.4-8.2) g/dl Albumin 2.4 L (3.4-5.0) g/dl Globulin 2.9 gm/dL Albumin/Globulin Ratio 0.8 L (1-2) Urine Opiates Screen (RJWEUE=204) Ur Buprenorphine Scrn (CUTOFF=10) Ur Oxycodone Screen (SDF4QN=648) Urine Methadone Screen (OMDUOQ=222) Ur Propoxyphene Screen (OLALZV=816) Ur Barbiturates Screen (SHRIIH=529) Ur Tricyclics Screen (ABIBTI=320) Ur Phencyclidine Scrn (CUTOFF=25) Ur Amphetamine Screen (OEOWBO=505) U Methamphetamines Scrn (JVBYTL=785) U Benzodiazepines Scrn (TZLXEH=911) U Cocaine Metab Screen (SGADUV=169) U Marijuana (THC) Screen (CUTOFF=50) Ethyl Alcohol 0.50 (0.00) gm% SARS-CoV-2 RNA (DODIE) (NEGATIVE) Result Diagrams: 03/08/20 04:41 03/08/20 04:41 Sepsis Event Note - Evaluation Sepsis Screening Result: No Definite Risk - Focused Exam Vital Signs: Vital Signs Temp Pulse Resp BP Pulse Ox 03/06/20 16:03 35.6 C L 106 H 20 141/86 H 100 Problem List Initiated/Reviewed/Updated: Yes Orders Last 24hrs: Active Orders 24 hr Category Date Time Status Cardiac Monitoring [RC] . DIRECTED Care 03/06/20 16:02 Active Peripheral IV Care [RC] . DIRECTED Care 03/06/20 16:03 Active UA RFX EVAN AND CULT IF INDIC [URIN] Stat Lab 03/06/20 16:15 Received Lactated Ringers [Ringers, Lactated] 1,000 ml Med 03/06/20 16:15 Active IV .BOLUS Magnesium Sulfate/Water [Magnesium Sulfate in Water Med 03/06/20 17:16 Active Premix] 4 gm Premix Bag 1 bag IV ONETIME Potassium Chloride [KCl 10 MEQ in Water 100 ML] 10 meq Med 03/06/20 17:15 Active Premix Bag 1 bag IV Q1H Sodium Chloride 0.9% [Saline Flush] Med 03/06/20 16:02 Active 10 ml FLUSH ASDIRECTED PRN ED Antiemetic Medication Reflex [OM.PC] Stat Oth 03/06/20 16:02 Ordered Peripheral IV Insertion Adult [OM.PC] Stat Oth 03/06/20 16:02 Ordered Medication Orders Lactated Ringer's (Ringers, Lactated) 1,000 mls @ 500 mls/hr IV .BOLUS STEPHANE Last Admin: 03/06/20 16:10 Dose: 500 mls/hr Documented by: ELVIS Potassium Chloride 10 meq/ (Premix) 100 mls @ 100 mls/hr IV Q1H STEPHANE Stop: 03/06/20 21:14 Magnesium Sulfate 4 gm/ Premix 50 mls @ 12.5 mls/hr IV ONETIME ONE Stop: 03/06/20 21:15 Sodium Chloride (Saline Flush) 10 ml FLUSH ASDIRECTED PRN PRN Reason: Keep Vein Open Last Admin: 03/06/20 16:10 Dose: 10 ml Documented by: NABILA Assessment/Plan Comment:: This is a 64 yo white female with past medical hx/o Impaired vision, hypertension, hyperlipidemia, Asthma, GERD, Recurrent UTI, Chronic Headaches, Eating Disorder, Osteoporosis, Chronic ETOH Abuse/Use, Anxiety, Depression and Bipolar Disorder who was brought in to ED by EMS for evaluation of ETOH Intoxication. Assessment: Acute: ETOH Intoxication with CYNTHIA level of 0.50 Acute on Chronic ETOH Abuse Leukocytosis with WBC of 15.31 Thrombocytosis, might be pseudo Hypokalemia with K of 2.6 Elevated AG of 17.6 Hypocalcemia with non-corrected level of 7.3 Hypomagnesemia with Mg of 1.7 Elevated AST of 60 Elevated Alk Phos fo 155 Mild Rhabdomyolysis with CK of 647 Hypoalbuminemia with Albumin of 2.4 Chronic: Impaired vision, hypertension, hyperlipidemia, Asthma, GERD, Recurrent UTI, Chronic Headaches, Eating Disorder, Osteoporosis, Chronic ETOH Abuse/Use, Anxiety, Depression and Bipolar Disorder who was brought o ED by EMS for evaluation of ETOH Intoxication. Plan: Admit to the unit. CIWAA protocol. Routine AM labs. IV fluids for hydration. PRN anti-emetic agents. Magnesium and Potassium supplements. Monitor CK. Regular diet once sober. DVT/GI prophylaxis. Code status is full. - Mortality Measure Prognosis:: Good
[2020-03-06] MEDS: Potassium Chloride 10 MEQ in Premix Bag 1 BAG IV SCH ×4 (17:46→21:34)
[2020-03-06] MEDS ORDERED: Lidocaine 1% 4 ML ONE (18:38)
[2020-03-06] MEDS ORDERED: Pantoprazole 40 MG Vial ONE (19:20)
[2020-03-06] MEDS ORDERED: Albuterol/Ipratropium 3.0-0.5 MG/3 ML Neb Soln NEB PRN (19:20)
[2020-03-06] MEDS ORDERED: Ondansetron 4 MG/2 ML SDV IV PRN (19:20)
[2020-03-06] MEDS ORDERED: Polyethylene Glycol 3350 Powder 17 GM Packet PO PRN (19:20)
[2020-03-06] MEDS ORDERED: Promethazine 12.5 MG in Sodium Chloride 0.9% 50 ML IV PRN (19:20)
[2020-03-06] MEDS ORDERED: Metoprolol Tartrate 25 MG Tab PO PRN (19:20)
[2020-03-06] MEDS ORDERED: diphenhydrAMINE 50 MG/ML SDV IVPUSH ONE (19:31)
[2020-03-06] MEDS ORDERED: hydrALAZINE 20 MG/ML SDV IVPUSH PRN (19:34)
[2020-03-06] MEDS ORDERED: Sodium Chloride 0.9% 1,000 ML IV SCH (19:45)
--- NOTE | 2020-03-06 19:54 | PCM.SN.2 ---
- Free Text/Narrative Note: Called to the ER for Difficult IV access. Multiple previous failed attempts at access. 20 guage IV inserted in the right upper arm with ultrasound, blood return, flushed with 20 ml 0.9NS, secured with IV start Kit, skin prep and transparent dressing. 20 guage IV inserted inserted in the left upper arm, blood return, flushed with 20 ml 0.9NS, secured with IV start kit, skin prep and transparent dressing. Shani Woodson
[2020-03-06] MEDS: Sucralfate 1 GM Tab PO SCH (20:15)
[2020-03-06] MEDS: OLANZapine 5 MG Tab PO SCH (20:15)
[2020-03-06] MEDS: Topiramate 25 MG Tab PO SCH (20:16)
[2020-03-06] MEDS: Montelukast 10 MG Tab PO SCH (20:16)
[2020-03-06] MEDS ORDERED: Topiramate 25 MG Tab PO SCH (21:00)
[2020-03-06] MEDS ORDERED: Pantoprazole 40 MG Vial IVPUSH ONE (21:21)
[2020-03-06] MEDS: Haloperidol Lactate 5 MG/ML SDV IM PRN (23:28)
[2020-03-07] MEDS: LORazepam 2 MG/ML SDV IVPUSH PRN ×5 (03:47→12:07)
[2020-03-07] MEDS: cloNIDine 0.1 MG Tab PO PRN ×3 (04:26→21:04)
[2020-03-07] MEDS ORDERED: Pantoprazole 40 MG Tab.CR PO SCH (06:00)
--- NOTE | 2020-03-07 07:29 | PCM.PN ---
- General Info Date of Service: 03/07/20 Admission Dx/Problem (Free Text): ETOH Abuse Subjective Update: In to see Gadiel. Her CIWA's have been elevated all the way up to 15 today and she is starting to hallucinate. She is seeing children and talking to people that are not there. She reports she feels good though, and reports her only problem is unsteadiness when trying to ambulate. She is rapidly worsening and Jeffries catheter will be placed for monitoring I&O's. Discussed withdrawal symp toms with Dr. Wiseman who recommends patient receive Librium 50 mg twice daily. Will hold for excessive sedation or drop in respiratory rate. Patient is very well-known to this service and has been a hard detox in the past. Alcohol level on admission was 0.5. Patient reports at this time that she would like to go to [facility] at discharge although she will go wherever we can get her pl aced. Increased IV fluids as anion gap is increased and patient appears somewhat dry. Supplementing potassium both p.o. and IV potassium. Functional Status: Reports: Pain Controlled, Tolerating Diet, Urinating, New Symptoms. Denies: Ambulating - Review of Systems General: Reports: Weakness. Denies: Fever, Fatigue, Malaise, Chills HEENT: Reports: No Symptoms. Denies: Headaches, Sore Throat Pulmonary: Reports: No Symptoms. Denies: Shortness of Breath, Cough, Sputum, Wheezing Cardiovascular: Reports: No Symptoms. Denies: Chest Pain, Palpitations, Dyspnea on Exertion, Lightheadedness Gastrointestinal: Reports: No Symptoms. Denies: Abdominal Pain, Constipation, Diarrhea, Nausea, Vomiting Genitourinary: Reports: No Symptoms. Denies: Pain Musculoskeletal: Reports: No Symptoms Skin: Reports: No Symptoms. Denies: Cyanosis Neurological: Reports: Confusion, Difficulty Walking, Weakness, Gait Disturbance. Denies: Dizziness, Headache, Numbness, Seizure, Syncope, Tingling Psychiatric: Reports: Confusion, Hallucinations. Denies: Anxiety, Agitation - Patient Data Vitals - Most Recent: Last Vital Signs Temp 97.8 F 03/07/20 03:49 Pulse 114 H 03/07/20 03:49 Resp 16 03/07/20 03:49 BP 129/115 H 03/07/20 04:26 Pulse Ox 97 03/07/20 03:49 Weight - Most Recent: 127 lb 1.6 oz I&O - Last 24 Hours: Intake & Output 03/06/20 03/07/20 03/07/20 22:59 06:59 14:59 Intake Total 1137 Balance 1137 Lab Results Last 24 Hours: Laboratory Results - last 24 hr 03/06/20 03/06/20 03/06/20 Range/Units 16:00 16:15 16:15 WBC (3.98-10.04) K/mm3 RBC (3.98-5.22) M/mm3 Hgb (11.2-15.7) gm/dl Hct (34.1-44.9) % MCV (79.4-94.8) fl MCH (25.6-32.2) pg MCHC (32.2-35.5) g/dl RDW Std Deviation (36.4-46.3) fL Plt Count (182-369) K/mm3 MPV (9.4-12.3) fl Neut % (Auto) (34.0-71.1) % Lymph % (Auto) (19.3-51.7) % Emmons % (Auto) (4.7-12.5) % Eos % (Auto) (0.7-5.8) Baso % (Auto) (0.1-1.2) % Neut # (Auto) (1.56-6.13) K/mm3 Lymph # (Auto) (1.18-3.74) K/mm3 Emmons # (Auto) (0.24-0.36) K/mm3 Eos # (Auto) (0.04-0.36) K/mm3 Baso # (Auto) (0.01-0.08) K/mm3 Manual Slide Review Sodium (136-145) mEq/L Potassium (3.5-5.1) mEq/L Chloride (98-107) mEq/L Carbon Dioxide (21-32) mEq/L Anion Gap (5-15) BUN (7-18) mg/dL Creatinine (0.55-1.02) mg/dL Est Cr Clr Drug Dosing mL/min Estimated GFR (MDRD) (>60) mL/min BUN/Creatinine Ratio (14-18) Glucose (80-115) mg/dL Calcium (8.5-10.1) mg/dL Magnesium (1.8-2.4) mg/dl Total Bilirubin (0.2-1.0) mg/dL AST (15-37) U/L ALT (14-59) U/L Alkaline Phosphatase (46-116) U/L Creatine Kinase (26-192) U/L Total Protein (6.4-8.2) g/dl Albumin (3.4-5.0) g/dl Globulin gm/dL Albumin/Globulin Ratio (1-2) Urine Color Yellow (Yellow) Urine Appearance Clear (Clear) Urine pH 6.5 (5.0-8.0) Ur Specific Mcintyre 1.015 (1.005-1.030) Urine Protein 1+ H (Negative) Urine Glucose (UA) Negative (Negative) Urine Ketones Negative (Negative) Urine Occult Blood 1+ H (Negative) Urine Nitrite Negative (Negative) Urine Bilirubin Negative (Negative) Urine Urobilinogen 0.2 (0.2-1.0) Ur Leukocyte Esterase Negative (Negative) Urine RBC 0-5 (0-5) /hpf Urine WBC 0-5 (0-5) /hpf Ur Squamous Epith Cells 0-5 (0-5) /hpf Urine Bacteria Few (FEW) /hpf Urine Mucus Few (FEW) /hpf Urine Opiates Screen Negative (JUNNYD=238) Ur Buprenorphine Scrn Negative (CUTOFF=10) Ur Oxycodone Screen Negative (AYN0DU=660) Urine Methadone Screen Negative (NBZKPT=106) Ur Propoxyphene Screen Negative (OHNSAZ=780) Ur Barbiturates Screen Negative (QDPKYD=174) Ur Tricyclics Screen Negative (JHVRLU=074) Ur Phencyclidine Scrn Negative (CUTOFF=25) Ur Amphetamine Screen Negative (UBIYST=099) U Methamphetamines Scrn Negative (OWRLCA=193) U Benzodiazepines Scrn Negative (JIYMOE=271) U Cocaine Metab Screen Negative (DGUDJV=470) U Marijuana (THC) Screen Negative (CUTOFF=50) Ethyl Alcohol (0.00) gm% SARS-CoV-2 RNA (DODIE) Negative (NEGATIVE) 03/06/20 03/06/20 03/07/20 Range/Units 16:36 16:36 06:10 WBC 15.31 H 16.30 H (3.98-10.04) K/mm3 RBC 4.06 3.79 L (3.98-5.22) M/mm3 Hgb 11.8 11.1 L (11.2-15.7) gm/dl Hct 36.4 34.4 (34.1-44.9) % MCV 89.7 D 90.8 (79.4-94.8) fl MCH 29.1 29.3 (25.6-32.2) pg MCHC 32.4 32.3 (32.2-35.5) g/dl RDW Std Deviation 49.3 H 51.4 H (36.4-46.3) fL Plt Count 503 H D 338 D (182-369) K/mm3 MPV 8.7 L 8.6 L (9.4-12.3) fl Neut % (Auto) 84.5 H 93.0 H (34.0-71.1) % Lymph % (Auto) 13.1 L 4.0 L (19.3-51.7) % Emmons % (Auto) 1.8 L 2.0 L (4.7-12.5) % Eos % (Auto) 0.1 L 0.7 (0.7-5.8) Baso % (Auto) 0.2 0.1 (0.1-1.2) % Neut # (Auto) 12.95 H 15.14 H (1.56-6.13) K/mm3 Lymph # (Auto) 2.00 0.65 L (1.18-3.74) K/mm3 Emmons # (Auto) 0.27 0.33 (0.24-0.36) K/mm3 Eos # (Auto) 0.02 L 0.12 (0.04-0.36) K/mm3 Baso # (Auto) 0.03 0.02 (0.01-0.08) K/mm3 Manual Slide Review Abnormal smear Abnormal smear Sodium 140 (136-145) mEq/L Potassium 2.6 L (3.5-5.1) mEq/L Chloride 99 (98-107) mEq/L Carbon Dioxide 26 (21-32) mEq/L Anion Gap 17.6 H (5-15) BUN 10 (7-18) mg/dL Creatinine 0.4 L (0.55-1.02) mg/dL Est Cr Clr Drug Dosing 124.26 mL/min Estimated GFR (MDRD) > 60 (>60) mL/min BUN/Creatinine Ratio 25.0 H (14-18) Glucose 99 (80-115) mg/dL Calcium 7.3 L (8.5-10.1) mg/dL Magnesium 1.4 L (1.8-2.4) mg/dl Total Bilirubin 0.3 (0.2-1.0) mg/dL AST 60 H (15-37) U/L ALT 26 (14-59) U/L Alkaline Phosphatase 155 H (46-116) U/L Creatine Kinase 647 H (26-192) U/L Total Protein 5.3 L (6.4-8.2) g/dl Albumin 2.4 L (3.4-5.0) g/dl Globulin 2.9 gm/dL Albumin/Globulin Ratio 0.8 L (1-2) Urine Color (Yellow) Urine Appearance (Clear) Urine pH (5.0-8.0) Ur Specific Mcintyre (1.005-1.030) Urine Protein (Negative) Urine Glucose (UA) (Negative) Urine Ketones (Negative) Urine Occult Blood (Negative) Urine Nitrite (Negative) Urine Bilirubin (Negative) Urine Urobilinogen (0.2-1.0) Ur Leukocyte Esterase (Negative) Urine RBC (0-5) /hpf Urine WBC (0-5) /hpf Ur Squamous Epith Cells (0-5) /hpf Urine Bacteria (FEW) /hpf Urine Mucus (FEW) /hpf Urine Opiates Screen (FUEEWP=957) Ur Buprenorphine Scrn (CUTOFF=10) Ur Oxycodone Screen (RKH3NP=605) Urine Methadone Screen (YNMUMS=806) Ur Propoxyphene Screen (HYWSEC=708) Ur Barbiturates Screen (QTQBJA=174) Ur Tricyclics Screen (PMTOVK=425) Ur Phencyclidine Scrn (CUTOFF=25) Ur Amphetamine Screen (BRFMIA=649) U Methamphetamines Scrn (XDNDTO=516) U Benzodiazepines Scrn (HYLPZN=967) U Cocaine Metab Screen (VMNYMJ=788) U Marijuana (THC) Screen (CUTOFF=50) Ethyl Alcohol 0.50 (0.00) gm% SARS-CoV-2 RNA (DODIE) (NEGATIVE) 03/07/20 Range/Units 06:10 WBC (3.98-10.04) K/mm3 RBC (3.98-5.22) M/mm3 Hgb (11.2-15.7) gm/dl Hct (34.1-44.9) % MCV (79.4-94.8) fl MCH (25.6-32.2) pg MCHC (32.2-35.5) g/dl RDW Std Deviation (36.4-46.3) fL Plt Count (182-369) K/mm3 MPV (9.4-12.3) fl Neut % (Auto) (34.0-71.1) % Lymph % (Auto) (19.3-51.7) % Emmons % (Auto) (4.7-12.5) % Eos % (Auto) (0.7-5.8) Baso % (Auto) (0.1-1.2) % Neut # (Auto) (1.56-6.13) K/mm3 Lymph # (Auto) (1.18-3.74) K/mm3 Emmons # (Auto) (0.24-0.36) K/mm3 Eos # (Auto) (0.04-0.36) K/mm3 Baso # (Auto) (0.01-0.08) K/mm3 Manual Slide Review Sodium 143 (136-145) mEq/L Potassium 2.7 L (3.5-5.1) mEq/L Chloride 99 (98-107) mEq/L Carbon Dioxide 25 (21-32) mEq/L Anion Gap 21.7 H (5-15) BUN 14 (7-18) mg/dL Creatinine 0.5 L (0.55-1.02) mg/dL Est Cr Clr Drug Dosing 106.17 mL/min Estimated GFR (MDRD) > 60 (>60) mL/min BUN/Creatinine Ratio 28.0 H (14-18) Glucose 42 L (80-115) mg/dL Calcium 7.2 L (8.5-10.1) mg/dL Magnesium 2.1 (1.8-2.4) mg/dl Total Bilirubin (0.2-1.0) mg/dL AST (15-37) U/L ALT (14-59) U/L Alkaline Phosphatase (46-116) U/L Creatine Kinase (26-192) U/L Total Protein (6.4-8.2) g/dl Albumin (3.4-5.0) g/dl Globulin gm/dL Albumin/Globulin Ratio (1-2) Urine Color (Yellow) Urine Appearance (Clear) Urine pH (5.0-8.0) Ur Specific Mcintyre (1.005-1.030) Urine Protein (Negative) Urine Glucose (UA) (Negative) Urine Ketones (Negative) Urine Occult Blood (Negative) Urine Nitrite (Negative) Urine Bilirubin (Negative) Urine Urobilinogen (0.2-1.0) Ur Leukocyte Esterase (Negative) Urine RBC (0-5) /hpf Urine WBC (0-5) /hpf Ur Squamous Epith Cells (0-5) /hpf Urine Bacteria (FEW) /hpf Urine Mucus (FEW) /hpf Urine Opiates Screen (SOTBUK=629) Ur Buprenorphine Scrn (CUTOFF=10) Ur Oxycodone Screen (RWS5GI=746) Urine Methadone Screen (XIFSEI=869) Ur Propoxyphene Screen (CEXSYP=825) Ur Barbiturates Screen (XTWGWH=748) Ur Tricyclics Screen (QORKCB=532) Ur Phencyclidine Scrn (CUTOFF=25) Ur Amphetamine Screen (MTHMAH=431) U Methamphetamines Scrn (WYMOFB=674) U Benzodiazepines Scrn (LIPSTC=581) U Cocaine Metab Screen (OHKKAB=740) U Marijuana (THC) Screen (CUTOFF=50) Ethyl Alcohol (0.00) gm% SARS-CoV-2 RNA (DODIE) (NEGATIVE) Med Orders - Current: Current Medications Albuterol/Ipratropium (Duoneb 3.0-0.5 Mg/3 Ml) 3 ml NEB Q4H PRN PRN Reason: Shortness Of Breath/wheezing Atenolol (Tenormin) 25 mg PO QAM [facility] Clonidine HCl (Catapres) 0.1 mg PO Q4H PRN PRN Reason: Agitation Last Admin: 03/07/20 04:26 Dose: 0.1 mg Documented by: Duloxetine HCl (Cymbalta) 30 mg PO DAILY [facility] Folic Acid (Folic Acid) 1 mg PO DAILY [facility] Stop: 03/09/20 09:01 Haloperidol Lactate (Haldol) 2 mg IM Q4H PRN PRN Reason: Agitation Last Admin: 03/06/20 23:28 Dose: 2 mg Documented by: Hydralazine HCl (Apresoline) 20 mg IVPUSH Q4H PRN PRN Reason: Hypertension Promethazine HCl 12.5 mg/ (Sodium Chloride) 50.5 mls @ 100 mls/hr IV Q6H PRN PRN Reason: Nausea/Vomiting Last Admin: 03/06/20 23:44 Dose: 100 mls/hr Documented by: Sodium Chloride (Normal Saline) 1,000 mls @ 50 mls/hr IV ASDIRECTED STEPHANE Stop: 03/07/20 15:44 Last Admin: 03/06/20 19:56 Dose: 50 mls/hr Documented by: Lorazepam (Ativan) 1 - 3 mg IVPUSH Q1H PRN; Protocol PRN Reason: Withdrawal Symptoms Last Admin: 03/07/20 04:48 Dose: 1 mg Documented by: Losartan Potassium (Cozaar) 12.5 mg PO DAILY [facility] Magnesium Oxide (Magnesium Oxide) 200 mg PO DAILY [facility] Metoprolol Tartrate (Lopressor) 25 mg PO Q6H PRN PRN Reason: See Label Comment Mometasone Furoate/Formoterol Fumar (Dulera 200-5 Mcg) 2 puff IH BID [facility] Montelukast Sodium (Singulair) 10 mg PO BEDTIME [facility] Last Admin: 03/06/20 20:16 Dose: 10 mg Documented by: Multivitamins (Thera) 1 each PO DAILY [facility] Stop: 03/11/20 09:01 Olanzapine (Zyprexa) 10 mg PO BEDTIME [facility] Last Admin: 03/06/20 20:15 Dose: 10 mg Documented by: Ondansetron HCl (Zofran) 4 mg IV Q6H PRN PRN Reason: Nausea/Vomiting Pantoprazole Sodium (Protonix) 40 mg PO DAILY@0800 [facility] Polyethylene Glycol (Miralax) 17 gm PO DAILY PRN PRN Reason: Constipation Potassium Chloride (Klor-Con M20) 20 meq PO DAILY [facility] Sodium Chloride (Saline Flush) 10 ml FLUSH ASDIRECTED PRN PRN Reason: Keep Vein Open Last Admin: 03/06/20 16:10 Dose: 10 ml Documented by: Sucralfate (Carafate) 1 gm PO QID [facility] Last Admin: 03/06/20 20:15 Dose: 1 gm Documented by: Thiamine HCl (Vitamin B-1) 100 mg PO DAILY [facility] Stop: 03/12/20 09:01 Topiramate (Topamax) 50 mg PO BEDTIME [facility] Last Admin: 03/06/20 20:16 Dose: 50 mg Documented by: Discontinued Medications Diphenhydramine HCl (Benadryl) 50 mg IVPUSH ONETIME ONE Stop: 03/06/20 19:32 Last Admin: 03/06/20 20:00 Dose: 50 mg Documented by: Lactated Ringer's (Ringers, Lactated) 1,000 mls @ 500 mls/hr IV .BOLUS [facility] Last Admin: 03/06/20 16:10 Dose: 500 mls/hr Documented by: Potassium Chloride 10 meq/ (Premix) 100 mls @ 100 mls/hr IV Q1H [facility] Stop: 03/06/20 21:14 Last Admin: 03/06/20 21:34 Dose: 100 mls/hr Documented by: Magnesium Sulfate 4 gm/ Premix 50 mls @ 12.5 mls/hr IV ONETIME ONE Stop: 03/06/20 21:15 Last Admin: 03/06/20 20:06 Dose: 12.5 mls/hr Documented by: Lidocaine HCl (Xylocaine-Mpf 1%) Confirm Administered Dose 4 mls @ as directed .ROUTE .STK-MED ONE Stop: 03/06/20 18:39 Ondansetron HCl (Zofran) 4 mg IVPUSH ONETIME ONE Stop: 03/06/20 16:03 Last Admin: 03/06/20 16:10 Dose: 4 mg Documented by: Pantoprazole Sodium (Protonix) 40 mg PO ACBREAKFAST [facility] Pantoprazole Sodium (Protonix Iv) 40 mg .XX ONETIME ONE Stop: 03/06/20 19:21 Last Admin: 03/06/20 21:37 Dose: Not Given Documented by: Pantoprazole Sodium (Protonix Iv) 40 mg IVPUSH ONETIME ONE Stop: 03/06/20 21:22 Last Admin: 03/06/20 21:33 Dose: 40 mg Documented by: Thiamine HCl (Vitamin B-1) 100 mg IVPUSH ONETIME ONE Stop: 03/06/20 17:23 Last Admin: 03/06/20 17:39 Dose: 100 mg Documented by: Topiramate (Topamax) 25 mg PO BID [facility] - Exam Quality Assessment: Urine Catheter, DVT Prophylaxis. No: Supplemental Oxygen General: Alert, Cooperative, Mild Distress. No: Oriented HEENT: Pupils Equal, Pupils Reactive, Mucous Membr. Moist/[place] Neck: Supple, Trachea Midline Lungs: Normal Respiratory Effort, Decreased Breath Sounds Cardiovascular: Regular Rhythm, Tachycardia GI/Abdominal Exam: Normal Bowel Sounds, Soft, Non-Tender, No Distention (Female) Exam: Deferred Back Exam: Normal Inspection, Full Range of Motion Extremities: Normal Inspection, Normal Range of Motion, Non-Tender, Normal Capillary Refill, Pedal Edema (2+), Other (Bilateral hand edema ) Skin: Warm, Dry, Intact Neurological: No New Focal Deficit Psy/Mental Status: Alert, Normal Affect, Hallucinations, Withdrawal Symptoms. No: Labile Mood, Agitated Sepsis Event Note - Evaluation Sepsis Screening Result: No Definite Risk - Focused Exam Vital Signs: Vital Signs Temp Pulse Pulse Resp BP BP Pulse Ox 03/07/20 04:26 129/115 H 03/07/20 03:49 97.8 F 114 H 16 137/87 97 03/07/20 00:00 98 F 118 H 18 136/69 100 03/06/20 22:28 03/06/20 19:45 98.0 F 120 H 20 115/68 98 Pulse Ox 03/07/20 04:26 03/07/20 03:49 03/07/20 00:00 03/06/20 22:28 100 03/06/20 19:45 - Problem List & Annotations (1) Alcohol intoxication SNOMED Code(s): 13308280 Code(s): F10.129 - ALCOHOL ABUSE WITH INTOXICATION, UNSPECIFIED Status: Acute Priority: High Current Visit: Yes Qualifiers: Complication of substance-induced condition: with delirium Qualified Code(s): F10.921 - Alcohol use, unspecified with intoxication delirium (2) Hypocalcemia SNOMED Code(s): 8844577 Code(s): E83.51 - HYPOCALCEMIA Status: Acute Priority: High Current Visit: Yes (3) Hypokalemia SNOMED Code(s): 53505018 Code(s): E87.6 - HYPOKALEMIA Status: Acute Priority: High Current Visit: Yes (4) Hypomagnesemia SNOMED Code(s): 925946495 Code(s): E83.42 - HYPOMAGNESEMIA Status: Resolved Priority: High Current Visit: Yes (5) Alcohol abuse with alcohol-induced anxiety disorder SNOMED Code(s): 14195064, 67596149 Code(s): F10.180 - ALCOHOL ABUSE WITH ALCOHOL-INDUCED ANXIETY DISORDER Status: Chronic Priority: High Current Visit: Yes (6) Alcohol dependence, binge pattern SNOMED Code(s): 434026807 Code(s): F10.20 - ALCOHOL DEPENDENCE, UNCOMPLICATED Status: Chronic Priority: High Current Visit: Yes (7) Leukocytosis SNOMED Code(s): 261264413, 307188884 Code(s): D72.829 - ELEVATED WHITE BLOOD CELL COUNT, UNSPECIFIED Status: Acute Priority: High Current Visit: Yes Qualifiers: Leukocytosis type: unspecified Qualified Code(s): D72.829 - Elevated white blood cell count, unspecified (8) Bipolar disorder SNOMED Code(s): 36272472 Code(s): F31.9 - BIPOLAR DISORDER, UNSPECIFIED Status: Chronic Priority: High Current Visit: Yes Qualifiers: Active/Remission status: remission status unspecified Qualified Code(s): F31.9 - Bipolar disorder, unspecified (9) Hypoglycemia SNOMED Code(s): 097208298 Code(s): E16.2 - HYPOGLYCEMIA, UNSPECIFIED Status: Acute Priority: High Current Visit: Yes - Problem List Review Problem List Initiated/Reviewed/Updated: Yes - Plan Plan:: This is a 64 yo white female with past medical hx/o Impaired vision, hypertension, hyperlipidemia, Asthma, GERD, Recurrent UTI, Chronic Headaches, Eating Disorder, Osteoporosis, Chronic ETOH Abuse/Use, Anxiety, Depression and Bipolar Disorder who was brought o ED by EMS for evaluation of ETOH Intoxication. Assessment: Acute: ETOH Intoxication with CYNTHIA level of 0.50 Acute on Chronic ETOH Abuse Leukocytosis with WBC of 15.31-->16.30 Thrombocytosis, might be pseudo Hypokalemia with K of 2.6-->2.7 Elevated AG of 17.6-->21.7 Hypocalcemia with non-corrected level of 7.3-->7.2 Hypomagnesemia with Mg of 1.7-->2.1 Elevated AST of 60 Elevated Alk Phos fo 155 Mild Rhabdomyolysis with CK of 647 Hypoalbuminemia with Albumin of 2.4 Hypoglycemia with blood glucose of 42 today, no diabetes history. Chronic: Impaired vision, hypertension, hyperlipidemia, Asthma, GERD, Recurrent UTI, Chronic Headaches, Eating Disorder, Osteoporosis, Chronic ETOH Abuse/Use, Anxiety, Depression and Bipolar Disorder who was brought to ED by EMS for evaluation of ETOH Intoxication. Plan: Admit to the unit. CIWAA protocol. Metoprolol PO for Tachycardia. Routine AM labs. IV fluids for hydration. Start Q6H glucose checks. Start librium 50mg BID. PRN anti-emetic agents. Potassium supplements. Monitor CK. Regular diet but monitor. Seizure precautions. CM/SW consultation. DVT/GI prophylaxis. Code status is full.
[2020-03-07] MEDS: Potassium Chloride 20 MEQ Tab.ER PO SCH ×2 (08:00→21:03)
[2020-03-07] MEDS: Pantoprazole 40 MG Tab.CR PO SCH (08:00)
[2020-03-07] MEDS ORDERED: Atenolol 25 MG Tab PO SCH (08:00)
[2020-03-07] MEDS: Thiamine 100 MG Tab PO SCH (08:01)
[2020-03-07] MEDS: Multivitamins,Therapeutic Tab PO SCH (08:01)
[2020-03-07] MEDS: Losartan 25 MG Tab PO SCH (08:01)
[2020-03-07] MEDS: Magnesium Oxide 400 MG Tab PO SCH (08:01)
[2020-03-07] MEDS: Sucralfate 1 GM Tab PO SCH ×4 (08:01→21:04)
[2020-03-07] MEDS: Folic Acid 1 MG Tab PO SCH (08:02)
[2020-03-07] MEDS: DULoxetine 30 MG Cap PO SCH (08:02)
[2020-03-07] MEDS: Potassium Chloride 10 MEQ in Premix Bag 1 BAG IV SCH ×2 (08:41→09:41)
[2020-03-07] MEDS: Formoterol/Mometasone 200-5 MCG 8.8 GM Inhaler IH SCH ×2 (08:53→20:26)
[2020-03-07] MEDS ORDERED: Non-Formulary Medication 1 Each (Fluticasone/Salmeterol 1 PUFF) IH SCH (09:00)
[2020-03-07] MEDS ORDERED: Potassium Chloride 20 MEQ Tab.ER PO SCH (09:00)
[2020-03-07] MEDS: Haloperidol Lactate 5 MG/ML SDV IM PRN (10:48)
[2020-03-07] MEDS ORDERED: Dextrose 5%-Lactated Ringers 1,000 ML IV SCH (11:00)
[2020-03-07] MEDS: chlordiazePOXIDE 25 MG Cap PO SCH ×2 (12:07→21:03)
[2020-03-07] MEDS ORDERED: Metoprolol Tartrate 5 MG/5 ML SDV IVPUSH ONE (12:59)
[2020-03-07] MEDS ORDERED: Metoprolol Tartrate 25 MG Tab PO ONE (13:01)
[2020-03-07] MEDS ORDERED: Metoprolol Tartrate 5 MG/5 ML SDV ONE (13:02)
[2020-03-07] MEDS ORDERED: Lactated Ringers 1,000 ML IV SCH ×2 (19:30)
[2020-03-07] MEDS: Topiramate 25 MG Tab PO SCH (21:04)
[2020-03-07] MEDS: Metoprolol Tartrate 25 MG Tab PO SCH (21:05)
[2020-03-07] MEDS: OLANZapine 5 MG Tab PO SCH (21:05)
[2020-03-07] MEDS: Montelukast 10 MG Tab PO SCH (21:05)
--- NOTE | 2020-03-08 07:24 | PCM.PN ---
- General Info Date of Service: 03/08/20 Admission Dx/Problem (Free Text): ETOH Abuse Subjective Update: In to see Re. She is hallucinating quite frequently. Unable to carry on a conversation. Electrolytes are being supplemented. Continue current treatment plan. Caution with concerns for aspiration. No VT throughout night. HR controlled. - Review of Systems Systems Review Comment:: Unable to obtain ROS as patient is confused and hallucinating. - Patient Data Vitals - Most Recent: Last Vital Signs Temp 99.7 F 03/08/20 04:00 Pulse 92 03/08/20 04:00 Resp 18 03/08/20 04:00 BP 121/71 03/08/20 04:00 Pulse Ox 96 03/08/20 04:00 Weight - Most Recent: 126 lb 6.4 oz I&O - Last 24 Hours: Intake & Output 03/07/20 03/08/20 03/08/20 22:59 06:59 14:59 Intake Total 1303 1891 Output Total 975 1050 Balance 328 841 Lab Results Last 24 Hours: Laboratory Results - last 24 hr 03/07/20 03/07/20 03/07/20 Range/Units 07:25 11:33 16:00 WBC (3.98-10.04) K/mm3 RBC (3.98-5.22) M/mm3 Hgb (11.2-15.7) gm/dl Hct (34.1-44.9) % MCV (79.4-94.8) fl MCH (25.6-32.2) pg MCHC (32.2-35.5) g/dl RDW Std Deviation (36.4-46.3) fL Plt Count (182-369) K/mm3 MPV (9.4-12.3) fl Neut % (Auto) (34.0-71.1) % Lymph % (Auto) (19.3-51.7) % [place] % (Auto) (4.7-12.5) % Eos % (Auto) (0.7-5.8) Baso % (Auto) (0.1-1.2) % Neut # (Auto) (1.56-6.13) K/mm3 Lymph # (Auto) (1.18-3.74) K/mm3 [place] # (Auto) (0.24-0.36) K/mm3 Eos # (Auto) (0.04-0.36) K/mm3 Baso # (Auto) (0.01-0.08) K/mm3 Sodium 140 (136-145) mEq/L Potassium 3.4 L (3.5-5.1) mEq/L Chloride 102 (98-107) mEq/L Carbon Dioxide 28 (21-32) mEq/L Anion Gap 13.4 (5-15) BUN 12 (7-18) mg/dL Creatinine 0.6 (0.55-1.02) mg/dL Est Cr Clr Drug Dosing 88.48 mL/min Estimated GFR (MDRD) > 60 (>60) mL/min BUN/Creatinine Ratio 20.0 H (14-18) Glucose 85 (80-115) mg/dL POC Glucose 73 L 92 (80-115) mg/dL Calcium 7.2 L (8.5-10.1) mg/dL Magnesium 1.8 (1.8-2.4) mg/dl 03/07/20 03/07/20 03/08/20 Range/Units 18:45 22:36 04:12 WBC (3.98-10.04) K/mm3 RBC (3.98-5.22) M/mm3 Hgb (11.2-15.7) gm/dl Hct (34.1-44.9) % MCV (79.4-94.8) fl MCH (25.6-32.2) pg MCHC (32.2-35.5) g/dl RDW Std Deviation (36.4-46.3) fL Plt Count (182-369) K/mm3 MPV (9.4-12.3) fl Neut % (Auto) (34.0-71.1) % Lymph % (Auto) (19.3-51.7) % [place] % (Auto) (4.7-12.5) % Eos % (Auto) (0.7-5.8) Baso % (Auto) (0.1-1.2) % Neut # (Auto) (1.56-6.13) K/mm3 Lymph # (Auto) (1.18-3.74) K/mm3 [place] # (Auto) (0.24-0.36) K/mm3 Eos # (Auto) (0.04-0.36) K/mm3 Baso # (Auto) (0.01-0.08) K/mm3 Sodium (136-145) mEq/L Potassium (3.5-5.1) mEq/L Chloride (98-107) mEq/L Carbon Dioxide (21-32) mEq/L Anion Gap (5-15) BUN (7-18) mg/dL Creatinine (0.55-1.02) mg/dL Est Cr Clr Drug Dosing mL/min Estimated GFR (MDRD) (>60) mL/min BUN/Creatinine Ratio (14-18) Glucose (80-115) mg/dL POC Glucose 295 H 102 89 (80-115) mg/dL Calcium (8.5-10.1) mg/dL Magnesium (1.8-2.4) mg/dl 03/08/20 Range/Units 04:41 WBC 6.73 (3.98-10.04) K/mm3 RBC 3.23 L (3.98-5.22) M/mm3 Hgb 9.4 L D (11.2-15.7) gm/dl Hct 30.2 L (34.1-44.9) % MCV 93.5 (79.4-94.8) fl MCH 29.1 (25.6-32.2) pg MCHC 31.1 L (32.2-35.5) g/dl RDW Std Deviation 52.1 H (36.4-46.3) fL Plt Count 236 D (182-369) K/mm3 MPV 9.4 (9.4-12.3) fl Neut % (Auto) 77.3 H (34.0-71.1) % Lymph % (Auto) 15.5 L (19.3-51.7) % [place] % (Auto) 5.5 (4.7-12.5) % Eos % (Auto) 1.5 (0.7-5.8) Baso % (Auto) 0.1 (0.1-1.2) % Neut # (Auto) 5.20 (1.56-6.13) K/mm3 Lymph # (Auto) 1.04 L (1.18-3.74) K/mm3 [place] # (Auto) 0.37 H (0.24-0.36) K/mm3 Eos # (Auto) 0.10 (0.04-0.36) K/mm3 Baso # (Auto) 0.01 (0.01-0.08) K/mm3 Sodium (136-145) mEq/L Potassium (3.5-5.1) mEq/L Chloride (98-107) mEq/L Carbon Dioxide (21-32) mEq/L Anion Gap (5-15) BUN (7-18) mg/dL Creatinine (0.55-1.02) mg/dL Est Cr Clr Drug Dosing mL/min Estimated GFR (MDRD) (>60) mL/min BUN/Creatinine Ratio (14-18) Glucose (80-115) mg/dL POC Glucose (80-115) mg/dL Calcium (8.5-10.1) mg/dL Magnesium (1.8-2.4) mg/dl Med Orders - Current: Current Medications Albuterol/Ipratropium (Duoneb 3.0-0.5 Mg/3 Ml) 3 ml NEB Q4H PRN PRN Reason: Shortness Of Breath/wheezing Chlordiazepoxide HCl (Librium) 50 mg PO BID [facility] Last Admin: 03/07/20 21:03 Dose: 50 mg Documented by: Clonidine HCl (Catapres) 0.1 mg PO Q4H PRN PRN Reason: Agitation Last Admin: 03/07/20 21:04 Dose: 0.1 mg Documented by: Duloxetine HCl (Cymbalta) 30 mg PO DAILY [facility] Last Admin: 03/07/20 08:02 Dose: 30 mg Documented by: Folic Acid (Folic Acid) 1 mg PO DAILY [facility] Stop: 03/09/20 09:01 Last Admin: 03/07/20 08:02 Dose: 1 mg Documented by: Haloperidol Lactate (Haldol) 2 mg IM Q4H PRN PRN Reason: Agitation Last Admin: 03/07/20 10:48 Dose: 2 mg Documented by: Hydralazine HCl (Apresoline) 20 mg IVPUSH Q4H PRN PRN Reason: Hypertension Promethazine HCl 12.5 mg/ (Sodium Chloride) 50.5 mls @ 100 mls/hr IV Q6H PRN PRN Reason: Nausea/Vomiting Last Admin: 03/06/20 23:44 Dose: 100 mls/hr Documented by: Dextrose/Lactated Ringer's (Dextrose 5%-Lactated Ringers) 1,000 mls @ 125 mls/hr IV ASDIRECTED [facility] Last Admin: 03/07/20 13:12 Dose: 125 mls/hr Documented by: Lactated Ringer's (Ringers, Lactated) 1,000 mls @ 75 mls/hr IV ASDIRECTED [facility] Last Admin: 03/07/20 21:05 Dose: 75 mls/hr Documented by: Lorazepam (Ativan) 1 - 3 mg IVPUSH Q1H PRN; Protocol PRN Reason: Withdrawal Symptoms Last Admin: 03/07/20 12:07 Dose: 2 mg Documented by: Losartan Potassium (Cozaar) 12.5 mg PO DAILY [facility] Last Admin: 03/07/20 08:01 Dose: 12.5 mg Documented by: Magnesium Oxide (Magnesium Oxide) 200 mg PO DAILY [facility] Last Admin: 03/07/20 08:01 Dose: 200 mg Documented by: Metoprolol Tartrate (Lopressor) 25 mg PO Q6H PRN PRN Reason: See Label Comment Last Admin: 03/07/20 08:30 Dose: 25 mg Documented by: Metoprolol Tartrate (Lopressor) 25 mg PO Q12H [facility] Last Admin: 03/07/20 21:05 Dose: 25 mg Documented by: Mometasone Furoate/Formoterol Fumar (Dulera 200-5 Mcg) 2 puff IH BID [facility] Last Admin: 03/07/20 20:26 Dose: 2 puff Documented by: Montelukast Sodium (Singulair) 10 mg PO BEDTIME [facility] Last Admin: 03/07/20 21:05 Dose: 10 mg Documented by: Multivitamins (Thera) 1 each PO DAILY [facility] Stop: 03/11/20 09:01 Last Admin: 03/07/20 08:01 Dose: 1 each Documented by: Olanzapine (Zyprexa) 10 mg PO BEDTIME [facility] Last Admin: 03/07/20 21:05 Dose: 10 mg Documented by: Ondansetron HCl (Zofran) 4 mg IV Q6H PRN PRN Reason: Nausea/Vomiting Pantoprazole Sodium (Protonix) 40 mg PO DAILY@0800 [facility] Last Admin: 03/07/20 08:00 Dose: 40 mg Documented by: Polyethylene Glycol (Miralax) 17 gm PO DAILY PRN PRN Reason: Constipation Potassium Chloride (Klor-Con M20) 40 meq PO BID [facility] Stop: 03/08/20 09:01 Last Admin: 03/07/20 21:03 Dose: 40 meq Documented by: Sodium Chloride (Saline Flush) 10 ml FLUSH ASDIRECTED PRN PRN Reason: Keep Vein Open Last Admin: 03/06/20 16:10 Dose: 10 ml Documented by: Sucralfate (Carafate) 1 gm PO QID [facility] Last Admin: 03/07/20 21:04 Dose: 1 gm Documented by: Thiamine HCl (Vitamin B-1) 100 mg PO DAILY [facility] Stop: 03/12/20 09:01 Last Admin: 03/07/20 08:01 Dose: 100 mg Documented by: Topiramate (Topamax) 50 mg PO BEDTIME [facility] Last Admin: 03/07/20 21:04 Dose: 50 mg Documented by: Discontinued Medications Atenolol (Tenormin) 25 mg PO QAM [facility] Last Admin: 03/07/20 08:00 Dose: 25 mg Documented by: Diphenhydramine HCl (Benadryl) 50 mg IVPUSH ONETIME ONE Stop: 03/06/20 19:32 Last Admin: 03/06/20 20:00 Dose: 50 mg Documented by: Lactated Ringer's (Ringers, Lactated) 1,000 mls @ 500 mls/hr IV .BOLUS [facility] Last Admin: 03/06/20 16:10 Dose: 500 mls/hr Documented by: Potassium Chloride 10 meq/ (Premix) 100 mls @ 100 mls/hr IV Q1H [facility] Stop: 03/06/20 21:14 Last Admin: 03/06/20 21:34 Dose: 100 mls/hr Documented by: Magnesium Sulfate 4 gm/ Premix 50 mls @ 12.5 mls/hr IV ONETIME ONE Stop: 03/06/20 21:15 Last Admin: 03/06/20 20:06 Dose: 12.5 mls/hr Documented by: Lidocaine HCl (Xylocaine-Mpf 1%) Confirm Administered Dose 4 mls @ as directed .ROUTE .STK-MED ONE Stop: 03/06/20 18:39 Sodium Chloride (Normal Saline) 1,000 mls @ 50 mls/hr IV ASDIRECTED [facility] Stop: 03/07/20 15:44 Last Admin: 03/06/20 19:56 Dose: 50 mls/hr Documented by: Potassium Chloride 10 meq/ (Premix) 100 mls @ 100 mls/hr IV Q1H [facility] Stop: 03/07/20 10:14 Last Admin: 03/07/20 09:41 Dose: 100 mls/hr Documented by: Lactated Ringer's (Ringers, Lactated) 1,000 mls @ 125 mls/hr IV ASDIRECTED [facility] Metoprolol Tartrate (Lopressor) 5 mg IVPUSH ONETIME ONE Stop: 03/07/20 13:00 Last Admin: 03/07/20 13:05 Dose: 5 mg Documented by: Metoprolol Tartrate (Lopressor) 25 mg PO ONETIME ONE Stop: 03/07/20 13:02 Last Admin: 03/07/20 13:12 Dose: 25 mg Documented by: Metoprolol Tartrate (Lopressor) Confirm Administered Dose 5 mg .ROUTE .STK-MED ONE Stop: 03/07/20 13:03 Last Admin: 03/07/20 13:09 Dose: Not Given Documented by: Ondansetron HCl (Zofran) 4 mg IVPUSH ONETIME ONE Stop: 03/06/20 16:03 Last Admin: 03/06/20 16:10 Dose: 4 mg Documented by: Pantoprazole Sodium (Protonix) 40 mg PO ACBREAKFAST [facility] Pantoprazole Sodium (Protonix Iv) 40 mg .XX ONETIME ONE Stop: 03/06/20 19:21 Last Admin: 03/06/20 21:37 Dose: Not Given Documented by: Pantoprazole Sodium (Protonix Iv) 40 mg IVPUSH ONETIME ONE Stop: 03/06/20 21:22 Last Admin: 03/06/20 21:33 Dose: 40 mg Documented by: Potassium Chloride (Klor-Con M20) 20 meq PO DAILY [facility] Thiamine HCl (Vitamin B-1) 100 mg IVPUSH ONETIME ONE Stop: 03/06/20 17:23 Last Admin: 03/06/20 17:39 Dose: 100 mg Documented by: Topiramate (Topamax) 25 mg PO BID [facility] - Exam Quality Assessment: Urine Catheter, DVT Prophylaxis. No: Supplemental Oxygen General: No Acute Distress, Sedated. No: Alert, Oriented HEENT: Pupils Equal, Mucous Membr. Moist/[place] Neck: Supple Lungs: Normal Respiratory Effort, Decreased Breath Sounds Cardiovascular: Regular Rate, Regular Rhythm GI/Abdominal Exam: Normal Bowel Sounds, Soft, Non-Tender, No Distention (Female) Exam: Deferred Extremities: Normal Inspection, Normal Range of Motion, Pedal Edema, Other (Bilateral hand edema ) Skin: Warm, Dry, Intact Psy/Mental Status: Hallucinations, Withdrawal Symptoms. No: Labile Mood, Anxious, Agitated Sepsis Event Note - Evaluation Sepsis Screening Result: No Definite Risk - Focused Exam Vital Signs: Vital Signs Temp Pulse Resp BP BP Pulse Ox Pulse Ox 03/08/20 04:00 99.7 F 92 18 121/71 96 03/08/20 00:00 99.6 F 86 18 108/62 95 03/07/20 21:05 83 125/78 03/07/20 21:04 125/78 03/07/20 20:28 96 03/07/20 20:00 98.3 F 79 18 142/75 H 99 - Problem List & Annotations (1) Alcohol intoxication SNOMED Code(s): 06194103 Code(s): F10.129 - ALCOHOL ABUSE WITH INTOXICATION, UNSPECIFIED Status: Acute Priority: High Current Visit: Yes Qualifiers: Complication of substance-induced condition: with delirium Qualified Code(s): F10.921 - Alcohol use, unspecified with intoxication delirium (2) Hypocalcemia SNOMED Code(s): 6495979 Code(s): E83.51 - HYPOCALCEMIA Status: Acute Priority: High Current Visit: Yes (3) Hypokalemia SNOMED Code(s): 07503925 Code(s): E87.6 - HYPOKALEMIA Status: Acute Priority: High Current Visit: Yes (4) Hypomagnesemia SNOMED Code(s): 386619980 Code(s): E83.42 - HYPOMAGNESEMIA Status: Acute Priority: High Current Visit: Yes (5) Alcohol abuse with alcohol-induced anxiety disorder SNOMED Code(s): 85662504, 57286597 Code(s): F10.180 - ALCOHOL ABUSE WITH ALCOHOL-INDUCED ANXIETY DISORDER Status: Chronic Priority: High Current Visit: Yes (6) Alcohol dependence, binge pattern SNOMED Code(s): 234894957 Code(s): F10.20 - ALCOHOL DEPENDENCE, UNCOMPLICATED Status: Chronic Priority: High Current Visit: Yes (7) Leukocytosis SNOMED Code(s): 856502517, 027885086 Code(s): D72.829 - ELEVATED WHITE BLOOD CELL COUNT, UNSPECIFIED Status: Acute Priority: High Current Visit: Yes Qualifiers: Leukocytosis type: unspecified Qualified Code(s): D72.829 - Elevated white blood cell count, unspecified (8) Bipolar disorder SNOMED Code(s): 68371883 Code(s): F31.9 - BIPOLAR DISORDER, UNSPECIFIED Status: Chronic Priority: High Current Visit: Yes Qualifiers: Active/Remission status: remission status unspecified Qualified Code(s): F31.9 - Bipolar disorder, unspecified (9) Hypoglycemia SNOMED Code(s): 536416121 Code(s): E16.2 - HYPOGLYCEMIA, UNSPECIFIED Status: Acute Priority: High Current Visit: Yes (10) Alcohol withdrawal syndrome SNOMED Code(s): 529947250 Code(s): F10.239 - ALCOHOL DEPENDENCE WITH WITHDRAWAL, UNSPECIFIED Status: Acute Priority: High Current Visit: Yes Qualifiers: Complication of substance-induced condition: with delirium Qualified Code(s): F10.231 - Alcohol dependence with withdrawal delirium (11) Hypophosphatemia SNOMED Code(s): 8457843 Code(s): E83.39 - OTHER DISORDERS OF PHOSPHORUS METABOLISM Status: Acute Priority: High Current Visit: Yes (12) Hallucinations SNOMED Code(s): 7213546 Code(s): R44.3 - HALLUCINATIONS, UNSPECIFIED Status: Acute Priority: High Current Visit: Yes - Problem List Review Problem List Initiated/Reviewed/Updated: Yes - My Orders Last 24 Hours: My Active Orders 03/07/20 09:00 Potassium Chloride [Klor-Con M20] 40 meq PO BID 03/07/20 09:57 JONATAN Hose [Antiembolic Hose] [OM.PC] Routine 03/07/20 09:58 Intake and Output Strict [RC] Q2HR 03/07/20 10:46 Blood Glucose Check, Bedside [RC] Q6H 03/07/20 11:00 Dextrose 5%-Lactated Ringers 1,000 ml IV ASDIRECTED 03/07/20 11:15 chlordiazePOXIDE [Librium] 50 mg PO BID 03/07/20 19:30 Lactated Ringers [Ringers, Lactated] 1,000 ml IV ASDIRECTED 03/08/20 04:41 CMP [COMPREHENSIVE METABOLIC PN,CMP] [CHEM] AM CREATINE KINASE,CK [CHEM] AM MAGNESIUM [CHEM] AM PHOSPHORUS [CHEM] AM 03/09/20 05:11 CBC WITH AUTO DIFF [HEME] AM CMP [COMPREHENSIVE METABOLIC PN,CMP] [CHEM] AM MAGNESIUM [CHEM] AM 03/10/20 05:11 CBC WITH AUTO DIFF [HEME] AM CMP [COMPREHENSIVE METABOLIC PN,CMP] [CHEM] AM MAGNESIUM [CHEM] AM 03/11/20 05:11 CBC WITH AUTO DIFF [HEME] AM CMP [COMPREHENSIVE METABOLIC PN,CMP] [CHEM] AM MAGNESIUM [CHEM] AM - Plan Plan:: This is a 64 yo white female with past medical hx/o Impaired vision, hypertension, hyperlipidemia, Asthma, GERD, Recurrent UTI, Chronic Headaches, Eating Disorder, Osteoporosis, Chronic ETOH Abuse/Use, Anxiety, Depression and Bipolar Disorder who was brought o ED by EMS for evaluation of ETOH Intoxicati on. Assessment: Acute: ETOH Intoxication with CYNTHIA level of 0.50 Acute on Chronic ETOH Abuse Alcohol withdrawal syndrome with delirium Leukocytosis with WBC of 15.31-->16.30-->6.73, resolved Thrombocytosis, might be pseudo Hypokalemia with K of 2.6-->2.7-->3.3 Elevated AG of 17.6-->21.7-->15.3 Hypocalcemia with non-corrected level of 7.3-->7.2-->7.4 Hypomagnesemia with Mg of 1.7-->2.1-->1.6 Elevated AST of 60-->63 Elevated Alk Phos fo 155-->125 Mild Rhabdomyolysis with CK of 647-->703 Hypoalbuminemia with Albumin of 2.4-->2.0 Hypoglycemia with blood glucose of 42, no diabetes history Hypophosphatemia with phosphorous of 1.4 Chronic: Impaired vision, hypertension, hyperlipidemia, Asthma, GERD, Recurrent UTI, Chronic Headaches, Eating Disorder, Osteoporosis, Chronic ETOH Abuse/Use, Anxiety, Depression and Bipolar Disorder who was brought to ED by EMS for evaluation of ETOH Intoxication. Plan: Admit to the unit. CIWAA protocol. Metoprolol PO for Tachycardia. daily 25mg BID metoprolol Routine AM labs. IV fluids for hydration. Q6H glucose checks. Librium 50mg BID. PRN anti-emetic agents. Potassium, phosphorous and magnesium supplements. Monitor CK. Regular diet but monitor. Seizure precautions. CM/SW consultation. DVT/GI prophylaxis. Code status is full. LOS >96 Hrs due to severe detox.
[2020-03-08] MEDS ORDERED: Magnesium Sulfate/Water 4 GM in Premix Bag 1 BAG IV ONE (08:00)
[2020-03-08] MEDS: Formoterol/Mometasone 200-5 MCG 8.8 GM Inhaler IH SCH ×2 (08:23→20:21)
[2020-03-08] MEDS: LORazepam 2 MG/ML SDV IVPUSH PRN (08:29)
[2020-03-08] MEDS: Metoprolol Tartrate 25 MG Tab PO SCH ×2 (08:29→21:51)
[2020-03-08] MEDS: Magnesium Oxide 400 MG Tab PO SCH (08:29)
[2020-03-08] MEDS: chlordiazePOXIDE 25 MG Cap PO SCH ×2 (08:30→21:51)
[2020-03-08] MEDS: Potassium Chloride 20 MEQ Tab.ER PO SCH (08:30)
[2020-03-08] MEDS: Thiamine 100 MG Tab PO SCH (08:30)
[2020-03-08] MEDS: DULoxetine 30 MG Cap PO SCH (08:30)
[2020-03-08] MEDS: Pantoprazole 40 MG Tab.CR PO SCH (08:30)
[2020-03-08] MEDS: Folic Acid 1 MG Tab PO SCH (08:31)
[2020-03-08] MEDS: Losartan 25 MG Tab PO SCH (08:31)
[2020-03-08] MEDS: Sucralfate 1 GM Tab PO SCH ×4 (08:31→21:52)
[2020-03-08] MEDS: Multivitamins,Therapeutic Tab PO SCH (08:37)
[2020-03-08] MEDS ORDERED: Potassium Phosphates 30 MMOLE in Sodium Chloride 0.9% 500 ML IV ONE (12:00)
[2020-03-08] MEDS: Lactated Ringers 1,000 ML IV SCH (17:55)
[2020-03-08] MEDS: OLANZapine 5 MG Tab PO SCH (21:51)
[2020-03-08] MEDS: Topiramate 25 MG Tab PO SCH (21:51)
[2020-03-08] MEDS: Montelukast 10 MG Tab PO SCH (21:51)
[2020-03-09] MEDS: Lactated Ringers 1,000 ML IV SCH ×3 (01:50→17:47)
[2020-03-09] MEDS: LORazepam 2 MG/ML SDV IVPUSH PRN ×2 (02:12→07:11)
--- NOTE | 2020-03-09 07:21 | PCM.PN ---
- General Info Date of Service: 03/09/20 Admission Dx/Problem (Free Text): ETOH Abuse Subjective Update: In to see Re. She continues to detox rather hard. CIWA's have been elevated and nursing is instructed to utilize as needed medications. Patient continues to hallucinate. Continue current treatment plan. She has had no new runs of VT. Functional Status: Reports: Pain Controlled, Tolerating Diet. Denies: Ambulating (Minimal intake), Urinating, New Symptoms, Incentive Spirometry - Review of Systems Systems Review Comment:: Unable to obtain ROS due to patient's mental state - Patient Data Vitals - Most Recent: Last Vital Signs Temp 99.3 F 03/09/20 04:00 Pulse 87 03/09/20 04:00 Resp 19 03/09/20 04:00 BP 116/68 03/09/20 04:00 Pulse Ox 96 03/09/20 04:00 Weight - Most Recent: 125 lb 9.6 oz I&O - Last 24 Hours: Intake & Output 03/08/20 03/09/20 03/09/20 22:59 06:59 14:59 Intake Total 1586 1481 Output Total 800 850 Balance 786 631 Lab Results Last 24 Hours: Laboratory Results - last 24 hr 03/08/20 03/09/20 03/09/20 Range/Units 04:41 06:00 06:00 WBC 5.67 (3.98-10.04) K/mm3 RBC 3.40 L (3.98-5.22) M/mm3 Hgb 9.9 L (11.2-15.7) gm/dl Hct 32.3 L (34.1-44.9) % MCV 95.0 H (79.4-94.8) fl MCH 29.1 (25.6-32.2) pg MCHC 30.7 L (32.2-35.5) g/dl RDW Std Deviation 52.5 H (36.4-46.3) fL Plt Count 187 (182-369) K/mm3 MPV 9.4 (9.4-12.3) fl Neut % (Auto) 74.5 H (34.0-71.1) % Lymph % (Auto) 16.0 L (19.3-51.7) % [place] % (Auto) 5.6 (4.7-12.5) % Eos % (Auto) 3.2 (0.7-5.8) Baso % (Auto) 0.5 (0.1-1.2) % Neut # (Auto) 4.22 (1.56-6.13) K/mm3 Lymph # (Auto) 0.91 L (1.18-3.74) K/mm3 [place] # (Auto) 0.32 (0.24-0.36) K/mm3 Eos # (Auto) 0.18 (0.04-0.36) K/mm3 Baso # (Auto) 0.03 (0.01-0.08) K/mm3 Manual Slide Review Not Reportable Sodium 142 143 (136-145) mEq/L Potassium 3.3 L 3.9 (3.5-5.1) mEq/L Chloride 105 106 (98-107) mEq/L Carbon Dioxide 25 26 (21-32) mEq/L Anion Gap 15.3 H 14.9 (5-15) BUN 7 7 (7-18) mg/dL Creatinine 0.5 L 0.6 (0.55-1.02) mg/dL Est Cr Clr Drug Dosing 105.59 87.43 mL/min Estimated GFR (MDRD) > 60 > 60 (>60) mL/min BUN/Creatinine Ratio 14.0 11.7 L (14-18) Glucose 71 L 81 (80-115) mg/dL Calcium 7.4 L 7.7 L (8.5-10.1) mg/dL Phosphorus 1.4 L (2.6-4.7) mg/dL Magnesium 1.6 L 1.8 (1.8-2.4) mg/dl Total Bilirubin 1.2 H 0.6 (0.2-1.0) mg/dL AST 63 H 46 H (15-37) U/L ALT 27 25 (14-59) U/L Alkaline Phosphatase 125 H 122 H (46-116) U/L Creatine Kinase 703 H 312 H (26-192) U/L Total Protein 4.4 L 4.6 L (6.4-8.2) g/dl Albumin 2.0 L 2.0 L (3.4-5.0) g/dl Globulin 2.4 2.6 gm/dL Albumin/Globulin Ratio 0.8 L 0.8 L (1-2) Med Orders - Current: Current Medications Albuterol/Ipratropium (Duoneb 3.0-0.5 Mg/3 Ml) 3 ml NEB Q4H PRN PRN Reason: Shortness Of Breath/wheezing Chlordiazepoxide HCl (Librium) 50 mg PO BID [facility] Last Admin: 03/08/20 21:51 Dose: 50 mg Documented by: Clonidine HCl (Catapres) 0.1 mg PO Q4H PRN PRN Reason: Agitation Last Admin: 03/07/20 21:04 Dose: 0.1 mg Documented by: Duloxetine HCl (Cymbalta) 30 mg PO DAILY [facility] Last Admin: 03/08/20 08:30 Dose: 30 mg Documented by: Folic Acid (Folic Acid) 1 mg PO DAILY [facility] Stop: 03/09/20 09:01 Last Admin: 03/08/20 08:31 Dose: 1 mg Documented by: Haloperidol Lactate (Haldol) 2 mg IM Q4H PRN PRN Reason: Agitation Last Admin: 03/07/20 10:48 Dose: 2 mg Documented by: Hydralazine HCl (Apresoline) 20 mg IVPUSH Q4H PRN PRN Reason: Hypertension Promethazine HCl 12.5 mg/ (Sodium Chloride) 50.5 mls @ 100 mls/hr IV Q6H PRN PRN Reason: Nausea/Vomiting Last Admin: 03/06/20 23:44 Dose: 100 mls/hr Documented by: Lactated Ringer's (Ringers, Lactated) 1,000 mls @ 125 mls/hr IV ASDIRECTED [facility] Last Admin: 03/09/20 01:50 Dose: 125 mls/hr Documented by: Lorazepam (Ativan) 1 - 3 mg IVPUSH Q1H PRN; Protocol PRN Reason: Withdrawal Symptoms Last Admin: 03/09/20 02:12 Dose: 1 mg Documented by: Losartan Potassium (Cozaar) 12.5 mg PO DAILY [facility] Last Admin: 03/08/20 08:31 Dose: 12.5 mg Documented by: Magnesium Oxide (Magnesium Oxide) 200 mg PO DAILY [facility] Last Admin: 03/08/20 08:29 Dose: 200 mg Documented by: Metoprolol Tartrate (Lopressor) 25 mg PO Q6H PRN PRN Reason: See Label Comment Last Admin: 03/07/20 08:30 Dose: 25 mg Documented by: Metoprolol Tartrate (Lopressor) 25 mg PO Q12H [facility] Last Admin: 03/08/20 21:51 Dose: 25 mg Documented by: Mometasone Furoate/Formoterol Fumar (Dulera 200-5 Mcg) 2 puff IH BID [facility] Last Admin: 03/08/20 20:21 Dose: 2 puff Documented by: Montelukast Sodium (Singulair) 10 mg PO BEDTIME [facility] Last Admin: 03/08/20 21:51 Dose: 10 mg Documented by: Multivitamins (Thera) 1 each PO DAILY [facility] Stop: 03/11/20 09:01 Last Admin: 03/08/20 08:37 Dose: 1 each Documented by: Olanzapine (Zyprexa) 10 mg PO BEDTIME [facility] Last Admin: 03/08/20 21:51 Dose: 10 mg Documented by: Ondansetron HCl (Zofran) 4 mg IV Q6H PRN PRN Reason: Nausea/Vomiting Last Admin: 03/08/20 23:15 Dose: 4 mg Documented by: Pantoprazole Sodium (Protonix) 40 mg PO DAILY@0800 [facility] Last Admin: 03/08/20 08:30 Dose: 40 mg Documented by: Polyethylene Glycol (Miralax) 17 gm PO DAILY PRN PRN Reason: Constipation Sodium Chloride (Saline Flush) 10 ml FLUSH ASDIRECTED PRN PRN Reason: Keep Vein Open Last Admin: 03/06/20 16:10 Dose: 10 ml Documented by: Sucralfate (Carafate) 1 gm PO QID [facility] Last Admin: 03/08/20 21:52 Dose: 1 gm Documented by: Thiamine HCl (Vitamin B-1) 100 mg PO DAILY [facility] Stop: 03/12/20 09:01 Last Admin: 03/08/20 08:30 Dose: 100 mg Documented by: Topiramate (Topamax) 50 mg PO BEDTIME [facility] Last Admin: 03/08/20 21:51 Dose: 50 mg Documented by: Discontinued Medications Atenolol (Tenormin) 25 mg PO QAM [facility] Last Admin: 03/07/20 08:00 Dose: 25 mg Documented by: Diphenhydramine HCl (Benadryl) 50 mg IVPUSH ONETIME ONE Stop: 03/06/20 19:32 Last Admin: 03/06/20 20:00 Dose: 50 mg Documented by: Lactated Ringer's (Ringers, Lactated) 1,000 mls @ 500 mls/hr IV .BOLUS [facility] Last Admin: 03/06/20 16:10 Dose: 500 mls/hr Documented by: Potassium Chloride 10 meq/ (Premix) 100 mls @ 100 mls/hr IV Q1H [facility] Stop: 03/06/20 21:14 Last Admin: 03/06/20 21:34 Dose: 100 mls/hr Documented by: Magnesium Sulfate 4 gm/ Premix 50 mls @ 12.5 mls/hr IV ONETIME ONE Stop: 03/06/20 21:15 Last Admin: 03/06/20 20:06 Dose: 12.5 mls/hr Documented by: Lidocaine HCl (Xylocaine-Mpf 1%) Confirm Administered Dose 4 mls @ as directed . ROUTE .STK-MED ONE Stop: 03/06/20 18:39 Sodium Chloride (Normal Saline) 1,000 mls @ 50 mls/hr IV ASDIRECTED [facility] Stop: 03/07/20 15:44 Last Admin: 03/06/20 19:56 Dose: 50 mls/hr Documented by: Potassium Chloride 10 meq/ (Premix) 100 mls @ 100 mls/hr IV Q1H [facility] Stop: 03/07/20 10:14 Last Admin: 03/07/20 09:41 Dose: 100 mls/hr Documented by: Dextrose/Lactated Ringer's (Dextrose 5%-Lactated Ringers) 1,000 mls @ 125 mls/hr IV ASDIRECTED [facility] Last Admin: 03/07/20 13:12 Dose: 125 mls/hr Documented by: Lactated Ringer's (Ringers, Lactated) 1,000 mls @ 125 mls/hr IV ASDIRECTED [facility] Lactated Ringer's (Ringers, Lactated) 1,000 mls @ 75 mls/hr IV ASDIRECTED [facility] Last Admin: 03/07/20 21:05 Dose: 75 mls/hr Documented by: Magnesium Sulfate 4 gm/ Premix 50 mls @ 12.5 mls/hr IV ONETIME ONE Stop: 03/08/20 11:59 Last Admin: 03/08/20 08:35 Dose: 12.5 mls/hr Documented by: Potassium Phosphate 30 mmole/ (Sodium Chloride) 510 mls @ 102 mls/hr IV ONETIME ONE Stop: 03/08/20 16:59 Last Admin: 03/08/20 12:34 Dose: 102 mls/hr Documented by: Metoprolol Tartrate (Lopressor) 5 mg IVPUSH ONETIME ONE Stop: 03/07/20 13:00 Last Admin: 03/07/20 13:05 Dose: 5 mg Documented by: Metoprolol Tartrate (Lopressor) 25 mg PO ONETIME ONE Stop: 03/07/20 13:02 Last Admin: 03/07/20 13:12 Dose: 25 mg Documented by: Metoprolol Tartrate (Lopressor) Confirm Administered Dose 5 mg .ROUTE .STK-MED ONE Stop: 03/07/20 13:03 Last Admin: 03/07/20 13:09 Dose: Not Given Documented by: Ondansetron HCl (Zofran) 4 mg IVPUSH ONETIME ONE Stop: 03/06/20 16:03 Last Admin: 03/06/20 16:10 Dose: 4 mg Documented by: Pantoprazole Sodium (Protonix) 40 mg PO ACBREAKFAST [facility] Pantoprazole Sodium (Protonix Iv) 40 mg .XX ONETIME ONE Stop: 03/06/20 19:21 Last Admin: 03/06/20 21:37 Dose: Not Given Documented by: Pantoprazole Sodium (Protonix Iv) 40 mg IVPUSH ONETIME ONE Stop: 03/06/20 21:22 Last Admin: 03/06/20 21:33 Dose: 40 mg Documented by: Potassium Chloride (Klor-Con M20) 20 meq PO DAILY [facility] Potassium Chloride (Klor-Con M20) 40 meq PO BID [facility] Stop: 03/08/20 09:01 Last Admin: 03/08/20 08:30 Dose: 40 meq Documented by: Thiamine HCl (Vitamin B-1) 100 mg IVPUSH ONETIME ONE Stop: 03/06/20 17:23 Last Admin: 03/06/20 17:39 Dose: 100 mg Documented by: Topiramate (Topamax) 25 mg PO BID [facility] - Exam Quality Assessment: DVT Prophylaxis. No: Supplemental Oxygen, Urine Catheter General: Alert, Sedated HEENT: Pupils Equal, Pupils Reactive Neck: Supple, Trachea Midline Lungs: Normal Respiratory Effort, Decreased Breath Sounds Cardiovascular: Regular Rate, Regular Rhythm GI/Abdominal Exam: Normal Bowel Sounds, Soft, Non-Tender, No Distention (Female) Exam: Deferred Extremities: Normal Inspection, Normal Range of Motion, Non-Tender, Normal Capillary Refill, Pedal Edema Skin: Warm, Dry, Intact, Ecchymosis (Scattered) Neurological: No New Focal Deficit Psy/Mental Status: Anxious, Hallucinations, Withdrawal Symptoms Sepsis Event Note - Evaluation Sepsis Screening Result: No Definite Risk - Focused Exam Vital Signs: Vital Signs Temp Pulse Resp BP BP BP Pulse Ox 03/09/20 04:00 99.3 F 87 19 116/68 96 03/09/20 00:00 99 F 20 128/75 128/75 95 03/08/20 21:51 82 106/64 03/08/20 20:22 03/08/20 20:00 99.1 F 18 106/64 94 L Pulse Ox 03/09/20 04:00 03/09/20 00:00 03/08/20 21:51 03/08/20 20:22 93 L 03/08/20 20:00 - Problem List & Annotations (1) Alcohol intoxication SNOMED Code(s): 54678630 Code(s): F10.129 - ALCOHOL ABUSE WITH INTOXICATION, UNSPECIFIED Status: Acute Priority: High Current Visit: Yes Qualifiers: Complication of substance-induced condition: with delirium Qualified Code(s): F10.921 - Alcohol use, unspecified with intoxication delirium (2) Hypocalcemia SNOMED Code(s): 3051331 Code(s): E83.51 - HYPOCALCEMIA Status: Acute Priority: High Current Visit: Yes (3) Hypokalemia SNOMED Code(s): 34006645 Code(s): E87.6 - HYPOKALEMIA Status: Acute Priority: High Current Visit: Yes (4) Hypomagnesemia SNOMED Code(s): 970919686 Code(s): E83.42 - HYPOMAGNESEMIA Status: Acute Priority: High Current Visit: Yes (5) Alcohol abuse with alcohol-induced anxiety disorder SNOMED Code(s): 41755282, 43601813 Code(s): F10.180 - ALCOHOL ABUSE WITH ALCOHOL-INDUCED ANXIETY DISORDER Status: Chronic Priority: High Current Visit: Yes (6) Alcohol dependence, binge pattern SNOMED Code(s): 295826538 Code(s): F10.20 - ALCOHOL DEPENDENCE, UNCOMPLICATED Status: Chronic Priority: High Current Visit: Yes (7) Leukocytosis SNOMED Code(s): 608796679, 645280096 Code(s): D72.829 - ELEVATED WHITE BLOOD CELL COUNT, UNSPECIFIED Status: Acute Priority: High Current Visit: Yes Qualifiers: Leukocytosis type: unspecified Qualified Code(s): D72.829 - Elevated white blood cell count, unspecified (8) Bipolar disorder SNOMED Code(s): 57404736 Code(s): F31.9 - BIPOLAR DISORDER, UNSPECIFIED Status: Chronic Priority: High Current Visit: Yes Qualifiers: Active/Remission status: remission status unspecified Qualified Code(s): F31.9 - Bipolar disorder, unspecified (9) Hypoglycemia SNOMED Code(s): 447880940 Code(s): E16.2 - HYPOGLYCEMIA, UNSPECIFIED Status: Acute Priority: High Current Visit: Yes (10) Alcohol withdrawal syndrome SNOMED Code(s): 511315616 Code(s): F10.239 - ALCOHOL DEPENDENCE WITH WITHDRAWAL, UNSPECIFIED Status: Acute Priority: High Current Visit: Yes Qualifiers: Complication of substance-induced condition: with delirium Qualified Code(s): F10.231 - Alcohol dependence with withdrawal delirium (11) Hypophosphatemia SNOMED Code(s): 3872140 Code(s): E83.39 - OTHER DISORDERS OF PHOSPHORUS METABOLISM Status: Acute Priority: High Current Visit: Yes (12) Hallucinations SNOMED Code(s): 7647291 Code(s): R44.3 - HALLUCINATIONS, UNSPECIFIED Status: Acute Priority: High Current Visit: Yes - Problem List Review Problem List Initiated/Reviewed/Updated: Yes - My Orders Last 24 Hours: My Active Orders 03/08/20 10:00 Lactated Ringers [Ringers, Lactated] 1,000 ml IV ASDIRECTED 03/08/20 Lunch Mechanical Soft Diet [DIET] 03/09/20 07:20 Magnesium Sulfate/Water [Magnesium Sulfate in Water Premix] 4 gm Premix Bag 1 bag IV ONETIME 03/10/20 05:11 CBC WITH AUTO DIFF [HEME] AM CMP [COMPREHENSIVE METABOLIC PN,CMP] [CHEM] AM CREATINE KINASE,CK [CHEM] AM MAGNESIUM [CHEM] AM 03/11/20 05:11 CBC WITH AUTO DIFF [HEME] AM CMP [COMPREHENSIVE METABOLIC PN,CMP] [CHEM] AM CREATINE KINASE,CK [CHEM] AM MAGNESIUM [CHEM] AM - Plan Plan:: This is a 64 yo white female with past medical hx/o Impaired vision, hypertension, hyperlipidemia, Asthma, GERD, Recurrent UTI, Chronic Headaches, Eating Disorder, Osteoporosis, Chronic ETOH Abuse/Use, Anxiety, Depression and Bipolar Disorder who was brought o ED by EMS for evaluation of ETOH Intoxication. Assessment: Acute: ETOH Intoxication with CYNTHIA level of 0.50 Acute on Chronic ETOH Abuse Alcohol withdrawal syndrome with delirium Leukocytosis with WBC of 15.31-->16.30-->6.73, resolved Thrombocytosis, might be pseudo Hypokalemia with K of 2.6-->2.7-->3.3 Elevated AG of 17.6-->21.7-->15.3-->14.9 Hypocalcemia with non-corrected level of 7.3-->7.2-->7.4-->7.7 Hypomagnesemia with Mg of 1.7-->2.1-->1.6-->1.8 Elevated AST of 60-->63-->46 Elevated Alk Phos fo 155-->125-->122 Mild Rhabdomyolysis with CK of 647-->703-->312 Hypoalbuminemia with Albumin of 2.4-->2.0 Hypoglycemia with blood glucose of 42, no diabetes history Hypophosphatemia with phosphorous of 1.4 Chronic: Impaired vision, hypertension, hyperlipidemia, Asthma, GERD, Recurrent UTI, Chronic Headaches, Eating Disorder, Osteoporosis, Chronic ETOH Abuse/Use, Anxiety, Depression and Bipolar Disorder who was brought to ED by EMS for evaluation of ETOH Intoxication. Plan: Admit to the unit. JORDINWAA protocol. Metoprolol PO for Tachycardia. daily 25mg BID metoprolol Routine AM labs. IV fluids for hydration. Q6H glucose checks. Librium 50mg BID. PRN anti-emetic agents. Potassium, phosphorous and magnesium supplements. Monitor CK. Regular diet but monitor. Seizure precautions. CM/SW consultation. DVT/GI prophylaxis. Code status is full. LOS >96 Hrs due to severe detox.
[2020-03-09] MEDS ORDERED: Magnesium Sulfate/Water 4 GM in Premix Bag 1 BAG IV ONE (08:00)
[2020-03-09] MEDS: Magnesium Oxide 400 MG Tab PO SCH ×2 (08:08→21:11)
[2020-03-09] MEDS: Pantoprazole 40 MG Tab.CR PO SCH (08:09)
[2020-03-09] MEDS: chlordiazePOXIDE 25 MG Cap PO SCH ×2 (08:09→21:11)
[2020-03-09] MEDS: Formoterol/Mometasone 200-5 MCG 8.8 GM Inhaler IH SCH ×2 (08:09→20:56)
[2020-03-09] MEDS: Metoprolol Tartrate 25 MG Tab PO SCH ×2 (08:09→21:12)
[2020-03-09] MEDS: Thiamine 100 MG Tab PO SCH (08:09)
[2020-03-09] MEDS: Folic Acid 1 MG Tab PO SCH (08:09)
[2020-03-09] MEDS: Losartan 25 MG Tab PO SCH (08:09)
[2020-03-09] MEDS: Multivitamins,Therapeutic Tab PO SCH (08:09)
[2020-03-09] MEDS: DULoxetine 30 MG Cap PO SCH (08:09)
[2020-03-09] MEDS: Sucralfate 1 GM Tab PO SCH ×4 (08:09→21:11)
[2020-03-09] MEDS: Topiramate 25 MG Tab PO SCH (21:11)
[2020-03-09] MEDS: OLANZapine 5 MG Tab PO SCH (21:11)
[2020-03-09] MEDS: Montelukast 10 MG Tab PO SCH (21:11)
[2020-03-10] MEDS: LORazepam 2 MG/ML SDV IVPUSH PRN ×4 (00:18→23:11)
[2020-03-10] MEDS: Haloperidol Lactate 5 MG/ML SDV IM PRN ×2 (01:15→23:13)
[2020-03-10] MEDS: Lactated Ringers 1,000 ML IV SCH ×4 (01:49→20:12)
[2020-03-10] MEDS: Formoterol/Mometasone 200-5 MCG 8.8 GM Inhaler IH SCH ×2 (08:07→20:25)
[2020-03-10] MEDS: Multivitamins,Therapeutic Tab PO SCH (09:14)
[2020-03-10] MEDS: Magnesium Oxide 400 MG Tab PO SCH ×2 (09:14→20:13)
[2020-03-10] MEDS: Losartan 25 MG Tab PO SCH (09:15)
[2020-03-10] MEDS: Thiamine 100 MG Tab PO SCH (09:15)
[2020-03-10] MEDS: Sucralfate 1 GM Tab PO SCH ×4 (09:15→20:13)
[2020-03-10] MEDS: chlordiazePOXIDE 25 MG Cap PO SCH ×2 (09:15→20:13)
[2020-03-10] MEDS: DULoxetine 30 MG Cap PO SCH (09:15)
[2020-03-10] MEDS: Pantoprazole 40 MG Tab.CR PO SCH (09:16)
[2020-03-10] MEDS: Metoprolol Tartrate 25 MG Tab PO SCH ×2 (09:16→20:13)
--- NOTE | 2020-03-10 11:48 | PCM.PN ---
- General Info Date of Service: 03/10/20 Admission Dx/Problem (Free Text): ETOH Abuse Subjective Update: In to see Re. She reportedly became quite agitated last night and was given Haldol. She has a history of bipolar disease. She has been sedated today and resting on my visit. CIWA's have been improved so far today. She continues to detox quite hard. Order placed for Dr. Torres, psychiatry, to see the patient when she is more appropriate. Continue current treatment plan. - Review of Systems Systems Review Comment:: Unable to obtain ROS as patient is quite sleepy. She does arouse somewhat to my voice and answers yes/no questions very quietly. She denies any pain. Denies any trouble breathing. - Patient Data Vitals - Most Recent: Last Vital Signs Temp 96.0 F L 03/10/20 08:00 Pulse 96 03/10/20 09:16 Resp 16 03/10/20 04:00 BP 126/75 03/10/20 09:16 Pulse Ox 94 L 03/10/20 04:00 Weight - Most Recent: 124 lb 6.4 oz I&O - Last 24 Hours: Intake & Output 03/09/20 03/10/20 03/10/20 22:59 06:59 14:59 Intake Total 1792 1630 970 Output Total 1075 725 450 Balance 717 905 520 Lab Results Last 24 Hours: Laboratory Results - last 24 hr 03/10/20 03/10/20 Range/Units 05:10 05:10 WBC 6.26 (3.98-10.04) K/mm3 RBC 3.73 L (3.98-5.22) M/mm3 Hgb 10.8 L (11.2-15.7) gm/dl Hct 35.1 (34.1-44.9) % MCV 94.1 (79.4-94.8) fl MCH 29.0 (25.6-32.2) pg MCHC 30.8 L (32.2-35.5) g/dl RDW Std Deviation 51.4 H (36.4-46.3) fL Plt Count 170 L (182-369) K/mm3 MPV 9.7 (9.4-12.3) fl Neut % (Auto) 74.7 H (34.0-71.1) % Lymph % (Auto) 14.9 L (19.3-51.7) % [place] % (Auto) 6.9 (4.7-12.5) % Eos % (Auto) 3.0 (0.7-5.8) Baso % (Auto) 0.3 (0.1-1.2) % Neut # (Auto) 4.68 (1.56-6.13) K/mm3 Lymph # (Auto) 0.93 L (1.18-3.74) K/mm3 [place] # (Auto) 0.43 H (0.24-0.36) K/mm3 Eos # (Auto) 0.19 (0.04-0.36) K/mm3 Baso # (Auto) 0.02 (0.01-0.08) K/mm3 Sodium 141 (136-145) mEq/L Potassium 3.5 (3.5-5.1) mEq/L Chloride 105 (98-107) mEq/L Carbon Dioxide 27 (21-32) mEq/L Anion Gap 12.5 (5-15) BUN 6 L (7-18) mg/dL Creatinine 0.5 L (0.55-1.02) mg/dL Est Cr Clr Drug Dosing 103.92 mL/min Estimated GFR (MDRD) > 60 (>60) mL/min BUN/Creatinine Ratio 12.0 L (14-18) Glucose 82 (80-115) mg/dL Calcium 7.8 L (8.5-10.1) mg/dL Phosphorus 4.1 (2.6-4.7) mg/dL Magnesium 1.7 L (1.8-2.4) mg/dl Total Bilirubin 0.4 (0.2-1.0) mg/dL AST 28 (15-37) U/L ALT 22 (14-59) U/L Alkaline Phosphatase 112 (46-116) U/L Creatine Kinase 186 (26-192) U/L Total Protein 4.6 L (6.4-8.2) g/dl Albumin 1.9 L (3.4-5.0) g/dl Globulin 2.7 gm/dL Albumin/Globulin Ratio 0.7 L (1-2) Med Orders - Current: Current Medications Albuterol/Ipratropium (Duoneb 3.0-0.5 Mg/3 Ml) 3 ml NEB Q4H PRN PRN Reason: Shortness Of Breath/wheezing Chlordiazepoxide HCl (Librium) 50 mg PO BID [facility] Last Admin: 03/10/20 09:15 Dose: 50 mg Documented by: Clonidine HCl (Catapres) 0.1 mg PO Q4H PRN PRN Reason: Agitation Last Admin: 03/07/20 21:04 Dose: 0.1 mg Documented by: Duloxetine HCl (Cymbalta) 30 mg PO DAILY [facility] Last Admin: 03/10/20 09:15 Dose: 30 mg Documented by: Haloperidol Lactate (Haldol) 2 mg IM Q4H PRN PRN Reason: Agitation Last Admin: 03/10/20 01:15 Dose: 2 mg Documented by: Hydralazine HCl (Apresoline) 20 mg IVPUSH Q4H PRN PRN Reason: Hypertension Promethazine HCl 12.5 mg/ (Sodium Chloride) 50.5 mls @ 100 mls/hr IV Q6H PRN PRN Reason: Nausea/Vomiting Last Admin: 03/06/20 23:44 Dose: 100 mls/hr Documented by: Lactated Ringer's (Ringers, Lactated) 1,000 mls @ 125 mls/hr IV ASDIRECTED [facility] Last Admin: 03/10/20 09:50 Dose: 125 mls/hr Documented by: Lorazepam (Ativan) 1 - 3 mg IVPUSH Q1H PRN; Protocol PRN Reason: Withdrawal Symptoms Last Admin: 03/10/20 00:18 Dose: 2 mg Documented by: Losartan Potassium (Cozaar) 12.5 mg PO DAILY [facility] Last Admin: 03/10/20 09:15 Dose: 12.5 mg Documented by: Magnesium Oxide (Magnesium Oxide) 400 mg PO BID [facility] Last Admin: 03/10/20 09:14 Dose: 400 mg Documented by: Metoprolol Tartrate (Lopressor) 25 mg PO Q6H PRN PRN Reason: See Label Comment Last Admin: 03/07/20 08:30 Dose: 25 mg Documented by: Metoprolol Tartrate (Lopressor) 25 mg PO Q12H [facility] Last Admin: 03/10/20 09:16 Dose: 25 mg Documented by: Mometasone Furoate/Formoterol Fumar (Dulera 200-5 Mcg) 2 puff IH BID [facility] Last Admin: 03/10/20 08:07 Dose: 2 puff Documented by: Montelukast Sodium (Singulair) 10 mg PO BEDTIME [facility] Last Admin: 03/09/20 21:11 Dose: 10 mg Documented by: Multivitamins (Thera) 1 each PO DAILY [facility] Stop: 03/11/20 09:01 Last Admin: 03/10/20 09:14 Dose: 1 each Documented by: Olanzapine (Zyprexa) 10 mg PO BEDTIME [facility] Last Admin: 03/09/20 21:11 Dose: 10 mg Documented by: Ondansetron HCl (Zofran) 4 mg IV Q6H PRN PRN Reason: Nausea/Vomiting Last Admin: 03/08/20 23:15 Dose: 4 mg Documented by: Pantoprazole Sodium (Protonix) 40 mg PO DAILY@0800 [facility] Last Admin: 03/10/20 09:16 Dose: 40 mg Documented by: Polyethylene Glycol (Miralax) 17 gm PO DAILY PRN PRN Reason: Constipation Sodium Chloride (Saline Flush) 10 ml FLUSH ASDIRECTED PRN PRN Reason: Keep Vein Open Last Admin: 03/06/20 16:10 Dose: 10 ml Documented by: Sucralfate (Carafate) 1 gm PO QID [facility] Last Admin: 03/10/20 09:15 Dose: 1 gm Documented by: Thiamine HCl (Vitamin B-1) 100 mg PO DAILY [facility] Stop: 03/12/20 09:01 Last Admin: 03/10/20 09:15 Dose: 100 mg Documented by: Topiramate (Topamax) 50 mg PO BEDTIME [facility] Last Admin: 03/09/20 21:11 Dose: 50 mg Documented by: Discontinued Medications Atenolol (Tenormin) 25 mg PO QAM [facility] Last Admin: 03/07/20 08:00 Dose: 25 mg Documented by: Diphenhydramine HCl (Benadryl) 50 mg IVPUSH ONETIME ONE Stop: 03/06/20 19:32 Last Admin: 03/06/20 20:00 Dose: 50 mg Documented by: Folic Acid (Folic Acid) 1 mg PO DAILY [facility] Stop: 03/09/20 09:01 Last Admin: 03/09/20 08:09 Dose: 1 mg Documented by: Lactated Ringer's (Ringers, Lactated) 1,000 mls @ 500 mls/hr IV .BOLUS [facility] Last Admin: 03/06/20 16:10 Dose: 500 mls/hr Documented by: Potassium Chloride 10 meq/ (Premix) 100 mls @ 100 mls/hr IV Q1H [facility] Stop: 03/06/20 21:14 Last Admin: 03/06/20 21:34 Dose: 100 mls/hr Documented by: Magnesium Sulfate 4 gm/ Premix 50 mls @ 12.5 mls/hr IV ONETIME ONE Stop: 03/06/20 21:15 Last Admin: 03/06/20 20:06 Dose: 12.5 mls/hr Documented by: Lidocaine HCl (Xylocaine-Mpf 1%) Confirm Administered Dose 4 mls @ as directed .ROUTE .STK-MED ONE Stop: 03/06/20 18:39 Sodium Chloride (Normal Saline) 1,000 mls @ 50 mls/hr IV ASDIRECTED [facility] Stop: 03/07/20 15:44 Last Admin: 03/06/20 19:56 Dose: 50 mls/hr Documented by: Potassium Chloride 10 meq/ (Premix) 100 mls @ 100 mls/hr IV Q1H [facility] Stop: 03/07/20 10:14 Last Admin: 03/07/20 09:41 Dose: 100 mls/hr Documented by: Dextrose/Lactated Ringer's (Dextrose 5%-Lactated Ringers) 1,000 mls @ 125 mls/hr IV ASDIRECTED [facility] Last Admin: 03/07/20 13:12 Dose: 125 mls/hr Documented by: Lactated Ringer's (Ringers, Lactated) 1,000 mls @ 125 mls/hr IV ASDIRECTED [facility] Lactated Ringer's (Ringers, Lactated) 1,000 mls @ 75 mls/hr IV ASDIRECTED [facility] Last Admin: 03/07/20 21:05 Dose: 75 mls/hr Documented by: Magnesium Sulfate 4 gm/ Premix 50 mls @ 12.5 mls/hr IV ONETIME ONE Stop: 03/08/20 11:59 Last Admin: 03/08/20 08:35 Dose: 12.5 mls/hr Documented by: Potassium Phosphate 30 mmole/ (Sodium Chloride) 510 mls @ 102 mls/hr IV ONETIME ONE Stop: 03/08/20 16:59 Last Admin: 03/08/20 12:34 Dose: 102 mls/hr Documented by: Magnesium Sulfate 4 gm/ Premix 50 mls @ 12.5 mls/hr IV ONETIME ONE Stop: 03/09/20 11:59 Last Admin: 03/09/20 08:18 Dose: 12.5 mls/hr Documented by: Magnesium Oxide (Magnesium Oxide) 200 mg PO DAILY [facility] Last Admin: 03/09/20 08:08 Dose: 200 mg Documented by: Metoprolol Tartrate (Lopressor) 5 mg IVPUSH ONETIME ONE Stop: 03/07/20 13:00 Last Admin: 03/07/20 13:05 Dose: 5 mg Documented by: Metoprolol Tartrate (Lopressor) 25 mg PO ONETIME ONE Stop: 03/07/20 13:02 Last Admin: 03/07/20 13:12 Dose: 25 mg Documented by: Metoprolol Tartrate (Lopressor) Confirm Administered Dose 5 mg .ROUTE .STK-MED ONE Stop: 03/07/20 13:03 Last Admin: 03/07/20 13:09 Dose: Not Given Documented by: Ondansetron HCl (Zofran) 4 mg IVPUSH ONETIME ONE Stop: 03/06/20 16:03 Last Admin: 03/06/20 16:10 Dose: 4 mg Documented by: Pantoprazole Sodium (Protonix) 40 mg PO ACBREAKFAST [facility] Pantoprazole Sodium (Protonix Iv) 40 mg .XX ONETIME ONE Stop: 03/06/20 19:21 Last Admin: 03/06/20 21:37 Dose: Not Given Documented by: Pantoprazole Sodium (Protonix Iv) 40 mg IVPUSH ONETIME ONE Stop: 03/06/20 21:22 Last Admin: 03/06/20 21:33 Dose: 40 mg Documented by: Potassium Chloride (Klor-Con M20) 20 meq PO DAILY [facility] Potassium Chloride (Klor-Con M20) 40 meq PO BID [facility] Stop: 03/08/20 09:01 Last Admin: 03/08/20 08:30 Dose: 40 meq Documented by: Thiamine HCl (Vitamin B-1) 100 mg IVPUSH ONETIME ONE Stop: 03/06/20 17:23 Last Admin: 03/06/20 17:39 Dose: 100 mg Documented by: Topiramate (Topamax) 25 mg PO BID [facility] - Exam Quality Assessment: DVT Prophylaxis. No: Supplemental Oxygen General: Cooperative, No Acute Distress, Sedated HEENT: Pupils Equal, Pupils Reactive Neck: Supple, Trachea Midline Lungs: Normal Respiratory Effort, Decreased Breath Sounds, Rhonchi (right lung ) Cardiovascular: Regular Rate, Regular Rhythm GI/Abdominal Exam: Normal Bowel Sounds, Soft, Non-Tender, No Distention (Female) Exam: Deferred Extremities: Normal Inspection, Normal Range of Motion, Non-Tender, Normal Capillary Refill, Pedal Edema (1+), Other (Bilateral edema to hands. ) Skin: Warm, Dry, Intact, Ecchymosis (Scattered ) Neurological: No New Focal Deficit Psy/Mental Status: Hallucinations, Withdrawal Symptoms Sepsis Event Note - Evaluation Sepsis Screening Result: No Definite Risk - Focused Exam Vital Signs: Vital Signs Temp Pulse Resp BP BP Pulse Ox 03/10/20 09:16 96 126/75 03/10/20 09:15 126/75 03/10/20 08:00 96.0 F L 130/69 03/10/20 04:00 98.8 F 16 124/74 94 L 03/10/20 00:00 98.5 F 18 136/76 95 - Problem List & Annotations (1) Alcohol intoxication SNOMED Code(s): 66981222 Code(s): F10.129 - ALCOHOL ABUSE WITH INTOXICATION, UNSPECIFIED Status: Acute Priority: High Current Visit: Yes Qualifiers: Complication of substance-induced condition: with delirium Qualified Code(s): F10.921 - Alcohol use, unspecified with intoxication delirium (2) Hypocalcemia SNOMED Code(s): 5106246 Code(s): E83.51 - HYPOCALCEMIA Status: Acute Priority: High Current Visit: Yes (3) Hypokalemia SNOMED Code(s): 45856211 Code(s): E87.6 - HYPOKALEMIA Status: Acute Priority: High Current Visit: Yes (4) Hypomagnesemia SNOMED Code(s): 581752089 Code(s): E83.42 - HYPOMAGNESEMIA Status: Acute Priority: High Current Visit: Yes (5) Alcohol abuse with alcohol-induced anxiety disorder SNOMED Code(s): 18455082, 85204319 Code(s): F10.180 - ALCOHOL ABUSE WITH ALCOHOL-INDUCED ANXIETY DISORDER Status: Chronic Priority: High Current Visit: Yes (6) Alcohol dependence, binge pattern SNOMED Code(s): 391541417 Code(s): F10.20 - ALCOHOL DEPENDENCE, UNCOMPLICATED Status: Chronic Priority: High Current Visit: Yes (7) Leukocytosis SNOMED Code(s): 523603324, 196937537 Code(s): D72.829 - ELEVATED WHITE BLOOD CELL COUNT, UNSPECIFIED Status: Acute Priority: High Current Visit: Yes Qualifiers: Leukocytosis type: unspecified Qualified Code(s): D72.829 - Elevated white blood cell count, unspecified (8) Bipolar disorder SNOMED Code(s): 92995304 Code(s): F31.9 - BIPOLAR DISORDER, UNSPECIFIED Status: Chronic Priority: High Current Visit: Yes Qualifiers: Active/Remission status: remission status unspecified Qualified Code(s): F31.9 - Bipolar disorder, unspecified (9) Hypoglycemia SNOMED Code(s): 384660180 Code(s): E16.2 - HYPOGLYCEMIA, UNSPECIFIED Status: Acute Priority: High Current Visit: Yes (10) Alcohol withdrawal syndrome SNOMED Code(s): 394624335 Code(s): F10.239 - ALCOHOL DEPENDENCE WITH WITHDRAWAL, UNSPECIFIED Status: Acute Priority: High Current Visit: Yes Qualifiers: Complication of substance-induced condition: with delirium Qualified Code(s): F10.231 - Alcohol dependence with withdrawal delirium (11) Hypophosphatemia SNOMED Code(s): 1937807 Code(s): E83.39 - OTHER DISORDERS OF PHOSPHORUS METABOLISM Status: Acute Priority: High Current Visit: Yes (12) Hallucinations SNOMED Code(s): 7468390 Code(s): R44.3 - HALLUCINATIONS, UNSPECIFIED Status: Acute Priority: High Current Visit: Yes - Problem List Review Problem List Initiated/Reviewed/Updated: Yes - My Orders Last 24 Hours: My Active Orders 03/09/20 Lunch Regular Diet [DIET] 03/09/20 21:00 Magnesium Oxide 400 mg PO BID 03/11/20 05:11 CBC WITH AUTO DIFF [HEME] AM CMP [COMPREHENSIVE METABOLIC PN,CMP] [CHEM] AM CREATINE KINASE,CK [CHEM] AM MAGNESIUM [CHEM] AM - Plan Plan:: This is a 64 yo white female with past medical hx/o Impaired vision, hypertension, hyperlipidemia, Asthma, GERD, Recurrent UTI, Chronic Headaches, Eating Disorder, Osteoporosis, Chronic ETOH Abuse/Use, Anxiety, Depression and Bipolar Disorder who was brought o ED by EMS for evaluation of ETOH Intox ication. Assessment: Acute: ETOH Intoxication with CYNTHIA level of 0.50 Acute on Chronic ETOH Abuse Alcohol withdrawal syndrome with delirium Leukocytosis with WBC of 15.31-->16.30-->6.73, resolved Thrombocytosis, might be pseudo Hypokalemia with K of 2.6-->2.7-->3.3-->3.9-->3.5, resolved Elevated AG of 17.6-->21.7-->15.3-->14.9, resolved Hypomagnesemia with Mg of 1.7-->2.1-->1.6-->1.8-->1.7 Elevated AST of 60-->63-->46-->28, resolved Elevated Alk Phos fo 155-->125-->122-->112, resolved Mild Rhabdomyolysis with CK of 647-->703-->312-->186, resolved Hypoalbuminemia with Albumin of 2.4-->2.0-->1.9 Hypoglycemia with blood glucose of 42, no diabetes history Hypophosphatemia with phosphorous of 1.4 Chronic: Impaired vision, hypertension, hyperlipidemia, Asthma, GERD, Recurrent UTI, Chronic Headaches, Eating Disorder, Osteoporosis, Chronic ETOH Abuse/Use, Anxiety, Depression and Bipolar Disorder who was brought to ED by EMS for evaluation of ETOH Intoxication. Plan: Admit to the unit. CIWAA protocol. Metoprolol PO for Tachycardia. Daily 25mg BID metoprolol. Routine AM labs. IV fluids for hydration - decrease rate. Librium 50mg BID. PRN anti-emetic agents. Magnesium supplements. Regular diet but monitor. Seizure precautions. CM/SW consultation. Dr. Torres, psychiatry consultation. DVT/GI prophylaxis. Jeffries catheter in place. Code status is full. LOS >96 Hrs due to severe detox.
[2020-03-10] MEDS: cloNIDine 0.1 MG Tab PO PRN (13:11)
[2020-03-10] MEDS: Topiramate 25 MG Tab PO SCH (20:12)
[2020-03-10] MEDS: Montelukast 10 MG Tab PO SCH (20:13)
[2020-03-10] MEDS: OLANZapine 5 MG Tab PO SCH (20:13)
--- NOTE | 2020-03-11 07:17 | PCM.PN ---
- General Info Date of Service: 03/11/20 Admission Dx/Problem (Free Text): ETOH Abuse Subjective Update: In to see Re. She is laying in the bed. She is more alert today and able to carry on a conversation. She reports she feels "absolutely terrible." We will remove Lipscomb catheter today. She tends to become more worked up overnight. More controlled during the day. Will discontinue IV fluids today has her intake as improved. Potassium and magnesium remain low and will be supplemented again today. Dr. Torres, psychiatry, was ordered and will attempt once the patient is more alert. Because she has been more controlled we will take her off one-to-one nursing. Consider downgrade from ICU status in the next 24 hours if she remains stable. Functional Status: Reports: Pain Controlled, Tolerating Diet, Urinating. Denies: Ambulating, New Symptoms - Review of Systems General: Reports: No Symptoms, Weakness, Fatigue, Malaise. Denies: Fever, Chills HEENT: Reports: No Symptoms. Denies: Headaches, Sore Throat Pulmonary: Reports: No Symptoms. Denies: Shortness of Breath, Cough, Sputum, Wheezing Cardiovascular: Reports: No Symptoms. Denies: Chest Pain, Palpitations, Dyspnea on Exertion, Edema Gastrointestinal: Reports: No Symptoms. Denies: Abdominal Pain, Constipation, Diarrhea, Nausea, Vomiting Genitourinary: Reports: No Symptoms. Denies: Pain Musculoskeletal: Reports: Other (Generalized myalgias) Skin: Reports: No Symptoms. Denies: Cyanosis Neurological: Reports: Confusion, Difficulty Walking, Weakness, Gait Disturbance. Denies: Numbness, Seizure, Syncope, Tingling, Trouble Speaking Psychiatric: Reports: Confusion, Depression, Mood Lability, Anxiety - Patient Data Vitals - Most Recent: Last Vital Signs Temp 98.5 F 03/11/20 04:00 Pulse 95 03/10/20 20:13 Resp 20 03/11/20 04:00 BP 99/68 03/11/20 04:00 Pulse Ox 95 03/11/20 04:00 Weight - Most Recent: 123 lb 14.326 oz I&O - Last 24 Hours: Intake & Output 03/10/20 03/11/20 03/11/20 22:59 06:59 14:59 Intake Total 1915 866 Output Total 335 1235 Balance 1580 -369 Med Orders - Current: Current Medications Albuterol/Ipratropium (Duoneb 3.0-0.5 Mg/3 Ml) 3 ml NEB Q4H PRN PRN Reason: Shortness Of Breath/wheezing Chlordiazepoxide HCl (Librium) 50 mg PO BID [facility] Last Admin: 03/10/20 20:13 Dose: 50 mg Documented by: Clonidine HCl (Catapres) 0.1 mg PO Q4H PRN PRN Reason: Agitation Last Admin: 03/10/20 13:11 Dose: 0.1 mg Documented by: Duloxetine HCl (Cymbalta) 30 mg PO DAILY [facility] Last Admin: 03/10/20 09:15 Dose: 30 mg Documented by: Haloperidol Lactate (Haldol) 2 mg IM Q4H PRN PRN Reason: Agitation Last Admin: 03/10/20 23:13 Dose: 2 mg Documented by: Hydralazine HCl (Apresoline) 20 mg IVPUSH Q4H PRN PRN Reason: Hypertension Promethazine HCl 12.5 mg/ (Sodium Chloride) 50.5 mls @ 100 mls/hr IV Q6H PRN PRN Reason: Nausea/Vomiting Last Admin: 03/06/20 23:44 Dose: 100 mls/hr Documented by: Lactated Ringer's (Ringers, Lactated) 1,000 mls @ 75 mls/hr IV ASDIRECTED [facility] Last Admin: 03/10/20 20:12 Dose: 75 mls/hr Documented by: Lorazepam (Ativan) 1 - 3 mg IVPUSH Q1H PRN; Protocol PRN Reason: Withdrawal Symptoms Last Admin: 03/10/20 23:11 Dose: 1 mg Documented by: Losartan Potassium (Cozaar) 12.5 mg PO DAILY [facility] Last Admin: 03/10/20 09:15 Dose: 12.5 mg Documented by: Magnesium Oxide (Magnesium Oxide) 400 mg PO BID [facility] Last Admin: 03/10/20 20:13 Dose: 400 mg Documented by: Metoprolol Tartrate (Lopressor) 25 mg PO Q6H PRN PRN Reason: See Label Comment Last Admin: 03/07/20 08:30 Dose: 25 mg Documented by: Metoprolol Tartrate (Lopressor) 25 mg PO Q12H [facility] Last Admin: 03/10/20 20:13 Dose: 25 mg Documented by: Mometasone Furoate/Formoterol Fumar (Dulera 200-5 Mcg) 2 puff IH BID [facility] Last Admin: 03/10/20 20:25 Dose: 2 puff Documented by: Montelukast Sodium (Singulair) 10 mg PO BEDTIME [facility] Last Admin: 03/10/20 20:13 Dose: 10 mg Documented by: Multivitamins (Thera) 1 each PO DAILY [facility] Stop: 03/11/20 09:01 Last Admin: 03/10/20 09:14 Dose: 1 each Documented by: Olanzapine (Zyprexa) 10 mg PO BEDTIME [facility] Last Admin: 03/10/20 20:13 Dose: 10 mg Documented by: Ondansetron HCl (Zofran) 4 mg IV Q6H PRN PRN Reason: Nausea/Vomiting Last Admin: 03/08/20 23:15 Dose: 4 mg Documented by: Pantoprazole Sodium (Protonix) 40 mg PO DAILY@0800 [facility] Last Admin: 03/10/20 09:16 Dose: 40 mg Documented by: Polyethylene Glycol (Miralax) 17 gm PO DAILY PRN PRN Reason: Constipation Sodium Chloride (Saline Flush) 10 ml FLUSH ASDIRECTED PRN PRN Reason: Keep Vein Open Last Admin: 03/06/20 16:10 Dose: 10 ml Documented by: Sucralfate (Carafate) 1 gm PO QID [facility] Last Admin: 03/10/20 20:13 Dose: 1 gm Documented by: Thiamine HCl (Vitamin B-1) 100 mg PO DAILY [facility] Stop: 03/12/20 09:01 Last Admin: 03/10/20 09:15 Dose: 100 mg Documented by: Topiramate (Topamax) 50 mg PO BEDTIME [facility] Last Admin: 03/10/20 20:12 Dose: 50 mg Documented by: Discontinued Medications Atenolol (Tenormin) 25 mg PO QAM [facility] Last Admin: 03/07/20 08:00 Dose: 25 mg Documented by: Diphenhydramine HCl (Benadryl) 50 mg IVPUSH ONETIME ONE Stop: 03/06/20 19:32 Last Admin: 03/06/20 20:00 Dose: 50 mg Documented by: Folic Acid (Folic Acid) 1 mg PO DAILY [facility] Stop: 03/09/20 09:01 Last Admin: 03/09/20 08:09 Dose: 1 mg Documented by: Lactated Ringer's (Ringers, Lactated) 1,000 mls @ 500 mls/hr IV .BOLUS [facility]PH[facility] Last Admin: 03/06/20 16:10 Dose: 500 mls/hr Documented by: Potassium Chloride 10 meq/ (Premix) 100 mls @ 100 mls/hr IV Q1H [facility] Stop: 03/06/20 21:14 Last Admin: 03/06/20 21:34 Dose: 100 mls/hr Documented by: Magnesium Sulfate 4 gm/ Premix 50 mls @ 12.5 mls/hr IV ONETIME ONE Stop: 03/06/20 21:15 Last Admin: 03/06/20 20:06 Dose: 12.5 mls/hr Documented by: Lidocaine HCl (Xylocaine-Mpf 1%) Confirm Administered Dose 4 mls @ as directed .ROUTE .STK-MED ONE Stop: 03/06/20 18:39 Sodium Chloride (Normal Saline) 1,000 mls @ 50 mls/hr IV ASDIRECTED [facility] Stop: 03/07/20 15:44 Last Admin: 03/06/20 19:56 Dose: 50 mls/hr Documented by: Potassium Chloride 10 meq/ (Premix) 100 mls @ 100 mls/hr IV Q1H [facility] Stop: 03/07/20 10:14 Last Admin: 03/07/20 09:41 Dose: 100 mls/hr Documented by: Dextrose/Lactated Ringer's (Dextrose 5%-Lactated Ringers) 1,000 mls @ 125 mls/hr IV ASDIRECTED [facility] Last Admin: 03/07/20 13:12 Dose: 125 mls/hr Documented by: Lactated Ringer's (Ringers, Lactated) 1,000 mls @ 125 mls/hr IV ASDIRECTED [facility] Lactated Ringer's (Ringers, Lactated) 1,000 mls @ 75 mls/hr IV ASDIRECTED [facility] Last Admin: 03/07/20 21:05 Dose: 75 mls/hr Documented by: Magnesium Sulfate 4 gm/ Premix 50 mls @ 12.5 mls/hr IV ONETIME ONE Stop: 03/08/20 11:59 Last Admin: 03/08/20 08:35 Dose: 12.5 mls/hr Documented by: Potassium Phosphate 30 mmole/ (Sodium Chloride) 510 mls @ 102 mls/hr IV ONETIME ONE Stop: 03/08/20 16:59 Last Admin: 03/08/20 12:34 Dose: 102 mls/hr Documented by: Lactated Ringer's (Ringers, Lactated) 1,000 mls @ 125 mls/hr IV ASDIRECTED [facility] Last Admin: 03/10/20 09:50 Dose: 125 mls/hr Documented by: Magnesium Sulfate 4 gm/ Premix 50 mls @ 12.5 mls/hr IV ONETIME ONE Stop: 03/09/20 11:59 Last Admin: 03/09/20 08:18 Dose: 12.5 mls/hr Documented by: Magnesium Oxide (Magnesium Oxide) 200 mg PO DAILY [facility] Last Admin: 03/09/20 08:08 Dose: 200 mg Documented by: Metoprolol Tartrate (Lopressor) 5 mg IVPUSH ONETIME ONE Stop: 03/07/20 13:00 Last Admin: 03/07/20 13:05 Dose: 5 mg Documented by: Metoprolol Tartrate (Lopressor) 25 mg PO ONETIME ONE Stop: 03/07/20 13:02 Last Admin: 03/07/20 13:12 Dose: 25 mg Documented by: Metoprolol Tartrate (Lopressor) Confirm Administered Dose 5 mg .ROUTE .STK-MED ONE Stop: 03/07/20 13:03 Last Admin: 03/07/20 13:09 Dose: Not Given Documented by: Ondansetron HCl (Zofran) 4 mg IVPUSH ONETIME ONE Stop: 03/06/20 16:03 Last Admin: 03/06/20 16:10 Dose: 4 mg Documented by: Pantoprazole Sodium (Protonix) 40 mg PO ACBREAKFAST [facility] Pantoprazole Sodium (Protonix Iv) 40 mg .XX ONETIME ONE Stop: 03/06/20 19:21 Last Admin: 03/06/20 21:37 Dose: Not Given Documented by: Pantoprazole Sodium (Protonix Iv) 40 mg IVPUSH ONETIME ONE Stop: 03/06/20 21:22 Last Admin: 03/06/20 21:33 Dose: 40 mg Documented by: Potassium Chloride (Klor-Con M20) 20 meq PO DAILY [facility] Potassium Chloride (Klor-Con M20) 40 meq PO BID [facility] Stop: 03/08/20 09:01 Last Admin: 03/08/20 08:30 Dose: 40 meq Documented by: Thiamine HCl (Vitamin B-1) 100 mg IVPUSH ONETIME ONE Stop: 03/06/20 17:23 Last Admin: 03/06/20 17:39 Dose: 100 mg Documented by: Topiramate (Topamax) 25 mg PO BID [facility] - Exam Quality Assessment: Urine Catheter, DVT Prophylaxis. No: Supplemental Oxygen General: Alert, Cooperative, No Acute Distress, Sedated. No: Oriented HEENT: Pupils Equal, Pupils Reactive, Mucous Membr. Moist/[place] Neck: Supple, Trachea Midline Lungs: Normal Respiratory Effort, Decreased Breath Sounds. No: Rhonchi, Wheezing Cardiovascular: Regular Rate, Regular Rhythm GI/Abdominal Exam: Normal Bowel Sounds, Soft, Non-Tender, No Distention (Female) Exam: Deferred Back Exam: Normal Inspection, Full Range of Motion Extremities: Normal Inspection, Normal Range of Motion, Non-Tender, Normal Capillary Refill, Pedal Edema (improved ), Other (Bilateral hand edema - improved ) Skin: Warm, Dry, Intact, Ecchymosis (Scattered ) Neurological: No New Focal Deficit Psy/Mental Status: Alert, Labile Mood, Anxious, Withdrawal Symptoms Sepsis Event Note - Evaluation Sepsis Screening Result: No Definite Risk - Focused Exam Vital Signs: Vital Signs Temp Pulse Resp BP BP Pulse Ox Pulse Ox 03/11/20 04:00 98.5 F 20 99/68 95 03/11/20 00:00 97.4 F 20 99/58 L 95 03/10/20 20:26 97 03/10/20 20:13 95 101/64 03/10/20 20:00 98.1 F 18 101/64 95 - Problem List & Annotations (1) Alcohol intoxication SNOMED Code(s): 54877678 Code(s): F10.129 - ALCOHOL ABUSE WITH INTOXICATION, UNSPECIFIED Status: Acute Priority: High Current Visit: Yes Qualifiers: Complication of substance-induced condition: with delirium Qualified Code(s): F10.921 - Alcohol use, unspecified with intoxication delirium (2) Hypocalcemia SNOMED Code(s): 3724510 Code(s): E83.51 - HYPOCALCEMIA Status: Acute Priority: High Current Visit: Yes (3) Hypokalemia SNOMED Code(s): 74748073 Code(s): E87.6 - HYPOKALEMIA Status: Acute Priority: High Current Visit: Yes (4) Hypomagnesemia SNOMED Code(s): 010430630 Code(s): E83.42 - HYPOMAGNESEMIA Status: Acute Priority: High Current Visit: Yes (5) Alcohol abuse with alcohol-induced anxiety disorder SNOMED Code(s): 95232990, 25339249 Code(s): F10.180 - ALCOHOL ABUSE WITH ALCOHOL-INDUCED ANXIETY DISORDER Status: Chronic Priority: High Current Visit: Yes (6) Alcohol dependence, binge pattern SNOMED Code(s): 691228169 Code(s): F10.20 - ALCOHOL DEPENDENCE, UNCOMPLICATED Status: Chronic Priority: High Current Visit: Yes (7) Leukocytosis SNOMED Code(s): 752914789, 884248590 Code(s): D72.829 - ELEVATED WHITE BLOOD CELL COUNT, UNSPECIFIED Status: Acute Priority: High Current Visit: Yes Qualifiers: Leukocytosis type: unspecified Qualified Code(s): D72.829 - Elevated white blood cell count, unspecified (8) Bipolar disorder SNOMED Code(s): 18831852 Code(s): F31.9 - BIPOLAR DISORDER, UNSPECIFIED Status: Chronic Priority: High Current Visit: Yes Qualifiers: Active/Remission status: remission status unspecified Qualified Code(s): F31.9 - Bipolar disorder, unspecified (9) Hypoglycemia SNOMED Code(s): 619262084 Code(s): E16.2 - HYPOGLYCEMIA, UNSPECIFIED Status: Acute Priority: High Current Visit: Yes (10) Alcohol withdrawal syndrome SNOMED Code(s): 689167125 Code(s): F10.239 - ALCOHOL DEPENDENCE WITH WITHDRAWAL, UNSPECIFIED Status: Acute Priority: High Current Visit: Yes Qualifiers: Complication of substance-induced condition: with delirium Qualified Code(s): F10.231 - Alcohol dependence with withdrawal delirium (11) Hypophosphatemia SNOMED Code(s): 0677352 Code(s): E83.39 - OTHER DISORDERS OF PHOSPHORUS METABOLISM Status: Acute Priority: High Current Visit: Yes (12) Hallucinations SNOMED Code(s): 6676839 Code(s): R44.3 - HALLUCINATIONS, UNSPECIFIED Status: Acute Priority: High Current Visit: Yes - Problem List Review Problem List Initiated/Reviewed/Updated: Yes - My Orders Last 24 Hours: My Active Orders 03/10/20 Lunch Regular Diet [DIET] 03/10/20 12:00 Lactated Ringers [Ringers, Lactated] 1,000 ml IV ASDIRECTED 03/11/20 06:40 CBC WITH AUTO DIFF [HEME] AM CMP [COMPREHENSIVE METABOLIC PN,CMP] [CHEM] AM MAGNESIUM [CHEM] AM - Plan Plan:: This is a 64 yo white female with past medical hx/o Impaired vision, hypertension, hyperlipidemia, Asthma, GERD, Recurrent UTI, Chronic Headaches, Eating Disorder, Osteoporosis, Chronic ETOH Abuse/Use, Anxiety, Depression and Bipolar Disorder who was brought o ED by EMS for evaluation of ETOH Intoxication. Assessment: Acute: ETOH Intoxication with CYNTHIA level of 0.50 Acute on Chronic ETOH Abuse Alcohol withdrawal syndrome with delirium, improved Leukocytosis with WBC of 15.31-->16.30-->6.73, resolved Thrombocytosis, might be pseudo Hypokalemia with K of 2.6-->2.7-->3.3-->3.9-->3.5-->3.4 Elevated AG of 17.6-->21.7-->15.3-->14.9, resolved Hypomagnesemia with Mg of 1.7-->2.1-->1.6-->1.8-->1.7-->1.4 Elevated AST of 60-->63-->46-->28, resolved Elevated Alk Phos fo 155-->125-->122-->112, resolved Mild Rhabdomyolysis with CK of 647-->703-->312-->186, resolved Hypoalbuminemia with Albumin of 2.4-->2.0-->1.9 Hypoglycemia with blood glucose of 42, no diabetes history Hypophosphatemia with phosphorous of 1.4 Chronic: Impaired vision, hypertension, hyperlipidemia, Asthma, GERD, Recurrent UTI, Chronic Headaches, Eating Disorder, Osteoporosis, Chronic ETOH Abuse/Use, Anxiety, Depression and Bipolar Disorder who was brought to ED by EMS for evaluation of ETOH Intoxication. Plan: Admit to the unit. CIAZA protocol. Metoprolol PO for Tachycardia. Daily 25mg BID metoprolol. Routine AM labs. IV fluids for hydration - discontinue for now. Librium 50mg BID. PRN anti-emetic agents. Magnesium supplemented. Potassium supplemented. Supplement thiamine. Regular diet but monitor. Seizure precautions. CM/SW consultation. Dr. Torres, psychiatry consultation. DVT/GI prophylaxis. Remove lipscomb catheter. Code status is full. LOS >96 Hrs due to severe detox.
--- NOTE | 2020-03-11 07:19 | PCM.PN ---
- General Info Date of Service: 03/11/20 Admission Dx/Problem (Free Text): ETOH Abuse - Patient Data Vitals - Most Recent: Last Vital Signs Temp 98.5 F 03/11/20 04:00 Pulse 95 03/10/20 20:13 Resp 20 03/11/20 04:00 BP 99/68 03/11/20 04:00 Pulse Ox 95 03/11/20 04:00 Weight - Most Recent: 123 lb 14.326 oz I&O - Last 24 Hours: Intake & Output 03/10/20 03/11/20 03/11/20 22:59 06:59 14:59 Intake Total 1915 866 Output Total 335 1235 Balance 1580 -369 Med Orders - Current: Current Medications Albuterol/Ipratropium (Duoneb 3.0-0.5 Mg/3 Ml) 3 ml NEB Q4H PRN PRN Reason: Shortness Of Breath/wheezing Chlordiazepoxide HCl (Librium) 50 mg PO BID [facility] Last Admin: 03/10/20 20:13 Dose: 50 mg Documented by: Clonidine HCl (Catapres) 0.1 mg PO Q4H PRN PRN Reason: Agitation Last Admin: 03/10/20 13:11 Dose: 0.1 mg Documented by: Duloxetine HCl (Cymbalta) 30 mg PO DAILY [facility] Last Admin: 03/10/20 09:15 Dose: 30 mg Documented by: Haloperidol Lactate (Haldol) 2 mg IM Q4H PRN PRN Reason: Agitation Last Admin: 03/10/20 23:13 Dose: 2 mg Documented by: Hydralazine HCl (Apresoline) 20 mg IVPUSH Q4H PRN PRN Reason: Hypertension Promethazine HCl 12.5 mg/ (Sodium Chloride) 50.5 mls @ 100 mls/hr IV Q6H PRN PRN Reason: Nausea/Vomiting Last Admin: 03/06/20 23:44 Dose: 100 mls/hr Documented by: Lactated Ringer's (Ringers, Lactated) 1,000 mls @ 75 mls/hr IV ASDIRECTED [facility] Last Admin: 03/10/20 20:12 Dose: 75 mls/hr Documented by: Magnesium Sulfate 4 gm/ Premix 50 mls @ 12.5 mls/hr IV ONETIME ONE Stop: 03/11/20 11:16 Magnesium Sulfate (Magnesium Sulfate In Water Premix) 2 gm in 50 mls @ 25 mls/hr IV ONETIME ONE Stop: 03/11/20 13:19 Lorazepam (Ativan) 1 - 3 mg IVPUSH Q1H PRN; Protocol PRN Reason: Withdrawal Symptoms Last Admin: 03/10/20 23:11 Dose: 1 mg Documented by: Losartan Potassium (Cozaar) 12.5 mg PO DAILY [facility] Last Admin: 03/10/20 09:15 Dose: 12.5 mg Documented by: Magnesium Oxide (Magnesium Oxide) 400 mg PO BID [facility] Last Admin: 03/10/20 20:13 Dose: 400 mg Documented by: Metoprolol Tartrate (Lopressor) 25 mg PO Q6H PRN PRN Reason: See Label Comment Last Admin: 03/07/20 08:30 Dose: 25 mg Documented by: Metoprolol Tartrate (Lopressor) 25 mg PO Q12H [facility] Last Admin: 03/10/20 20:13 Dose: 25 mg Documented by: Mometasone Furoate/Formoterol Fumar (Dulera 200-5 Mcg) 2 puff IH BID [facility] Last Admin: 03/10/20 20:25 Dose: 2 puff Documented by: Montelukast Sodium (Singulair) 10 mg PO BEDTIME [facility] Last Admin: 03/10/20 20:13 Dose: 10 mg Documented by: Multivitamins (Thera) 1 each PO DAILY [facility] Stop: 03/11/20 09:01 Last Admin: 03/10/20 09:14 Dose: 1 each Documented by: Olanzapine (Zyprexa) 10 mg PO BEDTIME [facility] Last Admin: 03/10/20 20:13 Dose: 10 mg Documented by: Ondansetron HCl (Zofran) 4 mg IV Q6H PRN PRN Reason: Nausea/Vomiting Last Admin: 03/08/20 23:15 Dose: 4 mg Documented by: Pantoprazole Sodium (Protonix) 40 mg PO DAILY@0800 [facility] Last Admin: 03/10/20 09:16 Dose: 40 mg Documented by: Polyethylene Glycol (Miralax) 17 gm PO DAILY PRN PRN Reason: Constipation Sodium Chloride (Saline Flush) 10 ml FLUSH ASDIRECTED PRN PRN Reason: Keep Vein Open Last Admin: 03/06/20 16:10 Dose: 10 ml Documented by: Sucralfate (Carafate) 1 gm PO QID [facility] Last Admin: 03/10/20 20:13 Dose: 1 gm Documented by: Thiamine HCl (Vitamin B-1) 100 mg PO DAILY [facility] Stop: 03/12/20 09:01 Last Admin: 03/10/20 09:15 Dose: 100 mg Documented by: Topiramate (Topamax) 50 mg PO BEDTIME [facility] Last Admin: 03/10/20 20:12 Dose: 50 mg Documented by: Discontinued Medications Atenolol (Tenormin) 25 mg PO QAM [facility] Last Admin: 03/07/20 08:00 Dose: 25 mg Documented by: Diphenhydramine HCl (Benadryl) 50 mg IVPUSH ONETIME ONE Stop: 03/06/20 19:32 Last Admin: 03/06/20 20:00 Dose: 50 mg Documented by: Folic Acid (Folic Acid) 1 mg PO DAILY [facility] Stop: 03/09/20 09:01 Last Admin: 03/09/20 08:09 Dose: 1 mg Documented by: Lactated Ringer's (Ringers, Lactated) 1,000 mls @ 500 mls/hr IV .BOLUS [facility] Last Admin: 03/06/20 16:10 Dose: 500 mls/hr Documented by: Potassium Chloride 10 meq/ (Premix) 100 mls @ 100 mls/hr IV Q1H [facility] Stop: 03/06/20 21:14 Last Admin: 03/06/20 21:34 Dose: 100 mls/hr Documented by: Magnesium Sulfate 4 gm/ Premix 50 mls @ 12.5 mls/hr IV ONETIME ONE Stop: 03/06/20 21:15 Last Admin: 03/06/20 20:06 Dose: 12.5 mls/hr Documented by: Lidocaine HCl (Xylocaine-Mpf 1%) Confirm Administered Dose 4 mls @ as directed .ROUTE .STK-MED ONE Stop: 03/06/20 18:39 Sodium Chloride (Normal Saline) 1,000 mls @ 50 mls/hr IV ASDIRECTED [facility] Stop: 03/07/20 15:44 Last Admin: 03/06/20 19:56 Dose: 50 mls/hr Documented by: Potassium Chloride 10 meq/ (Premix) 100 mls @ 100 mls/hr IV Q1H [facility] Stop: 03/07/20 10:14 Last Admin: 03/07/20 09:41 Dose: 100 mls/hr Documented by: Dextrose/Lactated Ringer's (Dextrose 5%-Lactated Ringers) 1,000 mls @ 125 mls/hr IV ASDIRECTED [facility] Last Admin: 03/07/20 13:12 Dose: 125 mls/hr Documented by: Lactated Ringer's (Ringers, Lactated) 1,000 mls @ 125 mls/hr IV ASDIRECTED [facility] Lactated Ringer's (Ringers, Lactated) 1,000 mls @ 75 mls/hr IV ASDIRECTED [facility] Last Admin: 03/07/20 21:05 Dose: 75 mls/hr Documented by: Magnesium Sulfate 4 gm/ Premix 50 mls @ 12.5 mls/hr IV ONETIME ONE Stop: 03/08/20 11:59 Last Admin: 03/08/20 08:35 Dose: 12.5 mls/hr Documented by: Potassium Phosphate 30 mmole/ (Sodium Chloride) 510 mls @ 102 mls/hr IV ONETIME ONE Stop: 03/08/20 16:59 Last Admin: 03/08/20 12:34 Dose: 102 mls/hr Documented by: Lactated Ringer's (Ringers, Lactated) 1,000 mls @ 125 mls/hr IV ASDIRECTED [facility] Last Admin: 03/10/20 09:50 Dose: 125 mls/hr Documented by: Magnesium Sulfate 4 gm/ Premix 50 mls @ 12.5 mls/hr IV ONETIME ONE Stop: 03/09/20 11:59 Last Admin: 03/09/20 08:18 Dose: 12.5 mls/hr Documented by: Magnesium Oxide (Magnesium Oxide) 200 mg PO DAILY [facility] Last Admin: 03/09/20 08:08 Dose: 200 mg Documented by: Metoprolol Tartrate (Lopressor) 5 mg IVPUSH ONETIME ONE Stop: 03/07/20 13:00 Last Admin: 03/07/20 13:05 Dose: 5 mg Documented by: Metoprolol Tartrate (Lopressor) 25 mg PO ONETIME ONE Stop: 03/07/20 13:02 Last Admin: 03/07/20 13:12 Dose: 25 mg Documented by: Metoprolol Tartrate (Lopressor) Confirm Administered Dose 5 mg .ROUTE .STK-MED ONE Stop: 03/07/20 13:03 Last Admin: 03/07/20 13:09 Dose: Not Given Documented by: Ondansetron HCl (Zofran) 4 mg IVPUSH ONETIME ONE Stop: 03/06/20 16:03 Last Admin: 03/06/20 16:10 Dose: 4 mg Documented by: Pantoprazole Sodium (Protonix) 40 mg PO ACBREAKFAST [facility] Pantoprazole Sodium (Protonix Iv) 40 mg .XX ONETIME ONE Stop: 03/06/20 19:21 Last Admin: 03/06/20 21:37 Dose: Not Given Documented by: Pantoprazole Sodium (Protonix Iv) 40 mg IVPUSH ONETIME ONE Stop: 03/06/20 21:22 Last Admin: 03/06/20 21:33 Dose: 40 mg Documented by: Potassium Chloride (Klor-Con M20) 20 meq PO DAILY [facility] Potassium Chloride (Klor-Con M20) 40 meq PO BID [facility] Stop: 03/08/20 09:01 Last Admin: 03/08/20 08:30 Dose: 40 meq Documented by: Thiamine HCl (Vitamin B-1) 100 mg IVPUSH ONETIME ONE Stop: 03/06/20 17:23 Last Admin: 03/06/20 17:39 Dose: 100 mg Documented by: Topiramate (Topamax) 25 mg PO BID [facility] Sepsis Event Note - Evaluation Sepsis Screening Result: No Definite Risk - Focused Exam Vital Signs: Vital Signs Temp Pulse Resp BP BP Pulse Ox Pulse Ox 03/11/20 04:00 98.5 F 20 99/68 95 03/11/20 00:00 97.4 F 20 99/58 L 95 03/10/20 20:26 97 03/10/20 20:13 95 101/64 03/10/20 20:00 98.1 F 18 101/64 95 - Problem List & Annotations (1) Alcohol intoxication SNOMED Code(s): 68737730 Code(s): F10.129 - ALCOHOL ABUSE WITH INTOXICATION, UNSPECIFIED Status: Acute Priority: High Current Visit: Yes Qualifiers: Complication of substance-induced condition: with delirium Qualified Code( s): F10.921 - Alcohol use, unspecified with intoxication delirium (2) Hypocalcemia SNOMED Code(s): 9462948 Code(s): E83.51 - HYPOCALCEMIA Status: Acute Priority: High Current Visit: Yes (3) Hypokalemia SNOMED Code(s): 85816730 Code(s): E87.6 - HYPOKALEMIA Status: Acute Priority: High Current Visit : Yes (4) Hypomagnesemia SNOMED Code(s): 985306505 Code(s): E83.42 - HYPOMAGNESEMIA Status: Acute Priority: High Current Visit: Yes (5) Alcohol abuse with alcohol-induced anxiety disorder SNOMED Code(s): 19999827, 53717649 Code(s): F10.180 - ALCOHOL ABUSE WITH ALCOHOL-INDUCED ANXIETY DISORDER Status: Chronic Priority: High Current Visit: Yes (6) Alcohol dependence, binge pattern SNOMED Code(s): 253690117 Code(s): F10.20 - ALCOHOL DEPENDENCE, UNCOMPLICATED Status: Chronic Priority: High Current Visit: Yes (7) Leukocytosis SNOMED Code(s): 464884937, 797888152 Code(s): D72.829 - ELEVATED WHITE BLOOD CELL COUNT, UNSPECIFIED Status: Ac [place] Priority: High Current Visit: Yes Qualifiers: Leukocytosis type: unspecified Qualified Code(s): D72.829 - Elevated white blood cell count, unspecified (8) Bipolar disorder SNOMED Code(s): 76703882 Code(s): F31.9 - BIPOLAR DISORDER, UNSPECIFIED Status: Chronic Priority: High Current Visit: Yes Qualifiers: Active/Remission status: remission status unspecified Qualified Code(s): F31.9 - Bipolar disorder, unspecified (9) Hypoglycemia SNOMED Code(s): 484848959 Code(s): E16.2 - HYPOGLYCEMIA, UNSPECIFIED Status: Acute Priority: High Current Visit: Yes (10) Alcohol withdrawal syndrome SNOMED Code(s): 501072302 Code(s): F10.239 - ALCOHOL DEPENDENCE WITH WITHDRAWAL, UNSPECIFIED Status: Acute Priority: High Current Visit: Yes Qualifiers: Complication of substance-induced condition: with delirium Qualified Code(s): F10.231 - Alcohol dependence with withdrawal delirium (11) Hypophosphatemia SNOMED Code(s): 6718122 Code(s): E83.39 - OTHER DISORDERS OF PHOSPHORUS METABOLISM Status: Acute Priority: High Current Visit: Yes (12) Hallucinations SNOMED Code(s): 1204654 Code(s): R44.3 - HALLUCINATIONS, UNSPECIFIED Status: Acute Priority: High Current Visit: Yes - My Orders Last 24 Hours: My Active Orders 03/10/20 Lunch Regular Diet [DIET] 03/10/20 12:00 Lactated Ringers [Ringers, Lactated] 1,000 ml IV ASDIRECTED 03/11/20 06:40 CBC WITH AUTO DIFF [HEME] AM CMP [COMPREHENSIVE METABOLIC PN,CMP] [CHEM] AM MAGNESIUM [CHEM] AM 03/11/20 07:17 Magnesium Sulfate/Water [Magnesium Sulfate in Water Premix] 4 gm Premix Bag 1 bag IV ONETIME 03/11/20 11:20 Magnesium Sulfate 2 GM in Water @ 25 MLS/HR ONETIME (50ml) Magnesium Sulfate/Water [Magnesium Sulfate in Water Premix] 2 gm in 50 ml IV ONETIME - Plan Plan:: This is a 64 yo white female with past medical hx/o Impaired vision, hypertension, hyperlipidemia, Asthma, GERD, Recurrent UTI, Chronic Headaches, Eating Disorder, Osteoporosis, Chronic ETOH Abuse/Use, Anxiety, Depression and Bipolar Disorder who was brought o ED by EMS for evaluation of ETOH Intoxication. Assessment: Acute: ETOH Intoxication with CYNTHIA level of 0.50 Acute on Chronic ETOH Abuse Alcohol withdrawal syndrome with delirium Leukocytosis with WBC of 15.31-->16.30-->6.73, resolved Thrombocytosis, might be pseudo Hypokalemia with K of 2.6-->2.7-->3.3-->3.9-->3.5, resolved Elevated AG of 17.6-->21.7-->15.3-->14.9, resolved Hypomagnesemia with Mg of 1.7-->2.1-->1.6-->1.8-->1.7 Elevated AST of 60-->63-->46-->28, resolved Elevated Alk Phos fo 155-->125-->122-->112, resolved Mild Rhabdomyolysis with CK of 647-->703-->312-->186, resolved Hypoalbuminemia with Albumin of 2.4-->2.0-->1.9 Hypoglycemia with blood glucose of 42, no diabetes history Hypophosphatemia with phosphorous of 1.4 Chronic: Impaired vision, hypertension, hyperlipidemia, Asthma, GERD, Recurrent UTI, Chronic Headaches, Eating Disorder, Osteoporosis, Chronic ETOH Abuse/Use, Anxiety, Depression and Bipolar Disorder who was brought to ED by EMS for evaluation of ETOH Intoxication. Plan: Admit to the unit. CIWAA protocol. Metoprolol PO for Tachycardia. Daily 25mg BID metoprolol. Routine AM labs. IV fluids for hydration - decrease rate. Librium 50mg BID. PRN anti-emetic agents. Magnesium supplements. Regular diet but monitor. Seizure precautions. CM/SW consultation. Dr. Torres, psychiatry consultation. DVT/GI prophylaxis. Jeffries catheter in place. Code status is full. LOS >96 Hrs due to severe detox.
[2020-03-11] MEDS ORDERED: Magnesium Sulfate/Water 4 GM in Premix Bag 1 BAG IV ONE (07:30)
[2020-03-11] MEDS: Formoterol/Mometasone 200-5 MCG 8.8 GM Inhaler IH SCH ×2 (08:12→20:10)
[2020-03-11] MEDS: Pantoprazole 40 MG Tab.CR PO SCH (08:45)
[2020-03-11] MEDS: Sucralfate 1 GM Tab PO SCH ×4 (09:34→20:31)
[2020-03-11] MEDS: Losartan 25 MG Tab PO SCH (09:34)
[2020-03-11] MEDS: DULoxetine 30 MG Cap PO SCH (09:34)
[2020-03-11] MEDS: Magnesium Oxide 400 MG Tab PO SCH ×2 (09:34→20:31)
[2020-03-11] MEDS: Thiamine 100 MG Tab PO SCH (09:34)
[2020-03-11] MEDS: Metoprolol Tartrate 25 MG Tab PO SCH ×2 (09:34→20:40)
[2020-03-11] MEDS: chlordiazePOXIDE 25 MG Cap PO SCH ×2 (09:35→20:31)
[2020-03-11] MEDS: Multivitamins,Therapeutic Tab PO SCH (09:35)
[2020-03-11] MEDS: Lactated Ringers 1,000 ML IV SCH (09:40)
[2020-03-11] MEDS ORDERED: Docusate Sodium 100 MG Cap PO PRN (10:35)
[2020-03-11] MEDS: Potassium Chloride 20 MEQ Tab.ER PO SCH ×2 (10:56→20:32)
[2020-03-11] MEDS ORDERED: Magnesium Sulfate/Water 2 GM/50 ML BAG IV ONE (12:00)
[2020-03-11] MEDS: Montelukast 10 MG Tab PO SCH (20:35)
[2020-03-11] MEDS: OLANZapine 5 MG Tab PO SCH (20:35)
[2020-03-11] MEDS: Topiramate 25 MG Tab PO SCH (20:36)
[2020-03-12] MEDS ORDERED: Aluminum Hydroxide/Magnesium Hydroxide/Simethicone Susp 30 ML Cup PO PRN (01:31)
[2020-03-12] MEDS: LORazepam 2 MG/ML SDV IVPUSH PRN (03:28)
--- NOTE | 2020-03-12 07:54 | PCM.PN ---
- General Info Date of Service: 03/12/20 Admission Dx/Problem (Free Text): ETOH Abuse Subjective Update: No overnight issues but tends to be more worked up. 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 She laying in bed sedated but arousable this morning. She is usually worse during the day. She is afebrile w/o leukocytosis. She is on RA sating adequately. Her K is slightly low this AM. Her Mg and albumin levels remain low at 1.4 and 1.8, respectively. Otherwise, she has no complaints. Functional Status: Reports: Pain Controlled, Tolerating Diet, Urinating, New Symptoms - Review of Systems General: Denies: Fever, Chills HEENT: Denies: Headaches Pulmonary: Denies: Shortness of Breath Cardiovascular: Denies: Chest Pain Gastrointestinal: Denies: Abdominal Pain, Nausea, Vomiting Genitourinary: Denies: Frequency Musculoskeletal: Denies: Joint Pain Neurological: Denies: Confusion, Dizziness Psychiatric: Reports: Hallucinations. Denies: Depression, Anxiety - Patient Data Vitals - Most Recent: Last Vital Signs Temp 36.6 C 03/12/20 04:00 Pulse 97 03/12/20 04:00 Resp 18 03/12/20 04:00 BP 117/73 03/12/20 04:00 Pulse Ox 99 03/12/20 04:00 Weight - Most Recent: 57.833 kg I&O - Last 24 Hours: Intake & Output 03/11/20 03/12/20 03/12/20 22:59 06:59 14:59 Intake Total 814 Output Total 200 275 Balance 614 -275 Med Orders - Current: Current Medications Al Hydroxide/Mg Hydroxide (Mag-Al Plus) 30 ml PO Q4H PRN PRN Reason: Heartburn Last Admin: 03/12/20 01:40 Dose: 30 ml Documented by: Albuterol/Ipratropium (Duoneb 3.0-0.5 Mg/3 Ml) 3 ml NEB Q4H PRN PRN Reason: Shortness Of Breath/wheezing Chlordiazepoxide HCl (Librium) 50 mg PO BID [facility] Last Admin: 03/11/20 20:31 Dose: 50 mg Documented by: Clonidine HCl (Catapres) 0.1 mg PO Q4H PRN PRN Reason: Agitation Last Admin: 03/10/20 13:11 Dose: 0.1 mg Documented by: Docusate Sodium (Colace) 100 mg PO BID PRN PRN Reason: Constipation Duloxetine HCl (Cymbalta) 30 mg PO DAILY [facility] Last Admin: 03/11/20 09:34 Dose: 30 mg Documented by: Haloperidol Lactate (Haldol) 2 mg IM Q4H PRN PRN Reason: Agitation Last Admin: 03/10/20 23:13 Dose: 2 mg Documented by: Hydralazine HCl (Apresoline) 20 mg IVPUSH Q4H PRN PRN Reason: Hypertension Promethazine HCl 12.5 mg/ (Sodium Chloride) 50.5 mls @ 100 mls/hr IV Q6H PRN PRN Reason: Nausea/Vomiting Last Admin: 03/06/20 23:44 Dose: 100 mls/hr Documented by: Lorazepam (Ativan) 1 - 3 mg IVPUSH Q1H PRN; Protocol PRN Reason: Withdrawal Symptoms Last Admin: 03/12/20 03:28 Dose: 1 mg Documented by: Losartan Potassium (Cozaar) 12.5 mg PO DAILY [facility] Last Admin: 03/11/20 09:34 Dose: 12.5 mg Documented by: Magnesium Oxide (Magnesium Oxide) 400 mg PO BID [facility] Last Admin: 03/11/20 20:31 Dose: 400 mg Documented by: Metoprolol Tartrate (Lopressor) 25 mg PO Q6H PRN PRN Reason: See Label Comment Last Admin: 03/07/20 08:30 Dose: 25 mg Documented by: Metoprolol Tartrate (Lopressor) 25 mg PO Q12H [facility] Last Admin: 03/11/20 20:40 Dose: 25 mg Documented by: Mometasone Furoate/Formoterol Fumar (Dulera 200-5 Mcg) 2 puff IH BID [facility] Last Admin: 03/11/20 20:10 Dose: 2 puff Documented by: Montelukast Sodium (Singulair) 10 mg PO BEDTIME [facility] Last Admin: 03/11/20 20:35 Dose: 10 mg Documented by: Olanzapine (Zyprexa) 10 mg PO BEDTIME [facility] Last Admin: 03/11/20 20:35 Dose: 10 mg Documented by: Ondansetron HCl (Zofran) 4 mg IV Q6H PRN PRN Reason: Nausea/Vomiting Last Admin: 03/08/20 23:15 Dose: 4 mg Documented by: Pantoprazole Sodium (Protonix) 40 mg PO DAILY@0800 [facility] Last Admin: 03/11/20 08:45 Dose: 40 mg Documented by: Polyethylene Glycol (Miralax) 17 gm PO DAILY PRN PRN Reason: Constipation Potassium Chloride (Klor-Con M20) 40 meq PO BID [facility] Stop: 03/12/20 09:01 Last Admin: 03/11/20 20:32 Dose: 40 meq Documented by: Sodium Chloride (Saline Flush) 10 ml FLUSH ASDIRECTED PRN PRN Reason: Keep Vein Open Last Admin: 03/06/20 16:10 Dose: 10 ml Documented by: Sucralfate (Carafate) 1 gm PO QID [facility] Last Admin: 03/11/20 20:31 Dose: 1 gm Documented by: Thiamine HCl (Vitamin B-1) 100 mg PO DAILY [facility] Stop: 03/12/20 09:01 Last Admin: 03/11/20 09:34 Dose: 100 mg Documented by: Topiramate (Topamax) 50 mg PO BEDTIME [facility] Last Admin: 03/11/20 20:36 Dose: 50 mg Documented by: Discontinued Medications Atenolol (Tenormin) 25 mg PO QAM [facility] Last Admin: 03/07/20 08:00 Dose: 25 mg Documented by: Diphenhydramine HCl (Benadryl) 50 mg IVPUSH ONETIME ONE Stop: 03/06/20 19:32 Last Admin: 03/06/20 20:00 Dose: 50 mg Documented by: Folic Acid (Folic Acid) 1 mg PO DAILY [facility] Stop: 03/09/20 09:01 Last Admin: 03/09/20 08:09 Dose: 1 mg Documented by: Lactated Ringer's (Ringers, Lactated) 1,000 mls @ 500 mls/hr IV .BOLUS [facility] Last Admin: 03/06/20 16:10 Dose: 500 mls/hr Documented by: Potassium Chloride 10 meq/ (Premix) 100 mls @ 100 mls/hr IV Q1H [facility] Stop: 03/06/20 21:14 Last Admin: 03/06/20 21:34 Dose: 100 mls/hr Documented by: Magnesium Sulfate 4 gm/ Premix 50 mls @ 12.5 mls/hr IV ONETIME ONE Stop: 03/06/20 21:15 Last Admin: 03/06/20 20:06 Dose: 12.5 mls/hr Documented by: Lidocaine HCl (Xylocaine-Mpf 1%) Confirm Administered Dose 4 mls @ as directed .ROUTE .STK-MED ONE Stop: 03/06/20 18:39 Sodium Chloride (Normal Saline) 1,000 mls @ 50 mls/hr IV ASDIRECTED [facility] Stop: 03/07/20 15:44 Last Admin: 03/06/20 19:56 Dose: 50 mls/hr Documented by: Potassium Chloride 10 meq/ (Premix) 100 mls @ 100 mls/hr IV Q1H [facility] Stop: 03/07/20 10:14 Last Admin: 03/07/20 09:41 Dose: 100 mls/hr Documented by: Dextrose/Lactated Ringer's (Dextrose 5%-Lactated Ringers) 1,000 mls @ 125 mls/hr IV ASDIRECTED [facility] Last Admin: 03/07/20 13:12 Dose: 125 mls/hr Documented by: Lactated Ringer's (Ringers, Lactated) 1,000 mls @ 125 mls/hr IV ASDIRECTED [facility] Lactated Ringer's (Ringers, Lactated) 1,000 mls @ 75 mls/hr IV ASDIRECTED [facility] Last Admin: 03/07/20 21:05 Dose: 75 mls/hr Documented by: Magnesium Sulfate 4 gm/ Premix 50 mls @ 12.5 mls/hr IV ONETIME ONE Stop: 03/08/20 11:59 Last Admin: 03/08/20 08:35 Dose: 12.5 mls/hr Documented by: Potassium Phosphate 30 mmole/ (Sodium Chloride) 510 mls @ 102 mls/hr IV ONETIME ONE Stop: 03/08/20 16:59 Last Admin: 03/08/20 12:34 Dose: 102 mls/hr Documented by: Lactated Ringer's (Ringers, Lactated) 1,000 mls @ 125 mls/hr IV ASDIRECTED [facility] Last Admin: 03/10/20 09:50 Dose: 125 mls/hr Documented by: Magnesium Sulfate 4 gm/ Premix 50 mls @ 12.5 mls/hr IV ONETIME ONE Stop: 03/09/20 11:59 Last Admin: 03/09/20 08:18 Dose: 12.5 mls/hr Documented by: Lactated Ringer's (Ringers, Lactated) 1,000 mls @ 75 mls/hr IV ASDIRECTED [facility] Last Admin: 03/11/20 09:40 Dose: 75 mls/hr Documented by: Magnesium Sulfate 4 gm/ Premix 50 mls @ 12.5 mls/hr IV ONETIME ONE Stop: 03/11/20 11:29 Last Admin: 03/11/20 08:30 Dose: 12.5 mls/hr Documented by: Magnesium Sulfate (Magnesium Sulfate In Water Premix) 2 gm in 50 mls @ 25 mls/hr IV ONETIME ONE Stop: 03/11/20 13:59 Last Admin: 03/11/20 12:19 Dose: 25 mls/hr Documented by: Magnesium Oxide (Magnesium Oxide) 200 mg PO DAILY [facility] Last Admin: 03/09/20 08:08 Dose: 200 mg Documented by: Metoprolol Tartrate (Lopressor) 5 mg IVPUSH ONETIME ONE Stop: 03/07/20 13:00 Last Admin: 03/07/20 13:05 Dose: 5 mg Documented by: Metoprolol Tartrate (Lopressor) 25 mg PO ONETIME ONE Stop: 03/07/20 13:02 Last Admin: 03/07/20 13:12 Dose: 25 mg Documented by: Metoprolol Tartrate (Lopressor) Confirm Administered Dose 5 mg .ROUTE .STK-MED ONE Stop: 03/07/20 13:03 Last Admin: 03/07/20 13:09 Dose: Not Given Documented by: Multivitamins (Thera) 1 each PO DAILY [facility] Stop: 03/11/20 09:01 Last Admin: 03/11/20 09:35 Dose: 1 each Documented by: Ondansetron HCl (Zofran) 4 mg IVPUSH ONETIME ONE Stop: 03/06/20 16:03 Last Admin: 03/06/20 16:10 Dose: 4 mg Documented by: Pantoprazole Sodium (Protonix) 40 mg PO ACBREAKFAST [facility] Pantoprazole Sodium (Protonix Iv) 40 mg .XX ONETIME ONE Stop: 03/06/20 19:21 Last Admin: 03/06/20 21:37 Dose: Not Given Documented by: Pantoprazole Sodium (Protonix Iv) 40 mg IVPUSH ONETIME ONE Stop: 03/06/20 21:22 Last Admin: 03/06/20 21:33 Dose: 40 mg Documented by: Potassium Chloride (Klor-Con M20) 20 meq PO DAILY [facility] Potassium Chloride (Klor-Con M20) 40 meq PO BID [facility] Stop: 03/08/20 09:01 Last Admin: 03/08/20 08:30 Dose: 40 meq Documented by: Thiamine HCl (Vitamin B-1) 100 mg IVPUSH ONETIME ONE Stop: 03/06/20 17:23 Last Admin: 03/06/20 17:39 Dose: 100 mg Documented by: Topiramate (Topamax) 25 mg PO BID [facility] - Exam Quality Assessment: No: Supplemental Oxygen General: Alert, Cooperative, No Acute Distress HEENT: Pupils Equal, Pupils Reactive Neck: Supple Lungs: Normal Respiratory Effort, Decreased Breath Sounds Cardiovascular: Regular Rate, Regular Rhythm GI/Abdominal Exam: Normal Bowel Sounds, Soft, Non-Tender, No Organomegaly, No Distention (Female) Exam: Deferred Back Exam: Normal Inspection, Decreased Range of Motion Extremities: Normal Inspection, Normal Range of Motion, Non-Tender, No Pedal Edema, Normal Capillary Refill Peripheral Pulses: 2+: Dorsalis Pedis (L), Dorsalis Pedis (R) Skin: Warm, Dry, Intact Neurological: No New Focal Deficit, Other (limited due to sedation; she just got her morning medications). No: Normal Gait Psy/Mental Status: Hallucinations, Withdrawal Symptoms Sepsis Event Note - Evaluation Sepsis Screening Result: No Definite Risk - Focused Exam Vital Signs: Vital Signs Temp Pulse Resp BP BP Pulse Ox Pulse Ox 03/12/20 04:00 36.6 C 97 18 117/73 99 03/12/20 00:00 36.6 C 102 H 16 111/71 99 03/11/20 20:40 96 105/45 L 03/11/20 20:11 97 03/11/20 20:00 36.7 C 96 23 H 105/45 L 94 L - Problem List Review Problem List Initiated/Reviewed/Updated: Yes - My Orders Last 24 Hours: My Active Orders 03/12/20 01:31 Alum Hydrox/Mag Hydrox/Simeth [Mag-Al Plus] 30 ml PO Q4H PRN - Plan Plan:: This is a 64 yo white female with past medical hx/o Impaired vision, hypertension, hyperlipidemia, Asthma, GERD, Recurrent UTI, Chronic Headaches, Eating Disorder, Osteoporosis, Chronic ETOH Abuse/Use, Anxiety, Depression and Bipolar Disorder who was brought in to ED by EMS for evaluation of ETOH Intoxication. Assessment: Acute: ETOH Intoxication with CYNTHIA level of 0.50, known chronic alcoholic Acute on Chronic ETOH Abuse, carries a hx/o prolonged and hard detox Alcohol withdrawal syndrome with delirium, continues to improve Thrombocytopenia with Platelet of 136K Hypokalemia with K of 2.6-->2.7-->3.3-->3.9-->3.5-->3.4, persistent due to inadequate nutritional intake Hypomagnesemia with Mg of 1.7-->2.1-->1.6-->1.8-->1.7-->1.4, persistent due to inadequate nutritional intake Hypoalbuminemia with Albumin of 2.4-->2.0-->1.9-->1.8, persistent due to inadequate nutritional intake Hyperchloremia with Cl of 110 Hypoglycemia with blood glucose of 42, no diabetes history Generalized Weakness, mostly bedbound and poor nutritional intake Resolved: Leukocytosis with WBC of 15.31-->16.30-->6.73, resolved Thrombocytosis, might be pseudo Elevated AG of 17.6-->21.7-->15.3-->14.9, resolved Elevated AST of 60-->63-->46-->28, resolved Elevated Alk Phos fo 155-->125-->122-->112, resolved Mild Rhabdomyolysis with CK of 647-->703-->312-->186, resolved Hypophosphatemia with phosphorous of 1.4--> now 4, resolved Chronic: Impaired vision, hypertension, hyperlipidemia, Asthma, GERD, Recurrent UTI, Chronic Headaches, Eating Disorder, Osteoporosis, Chronic ETOH Abuse/Use, Anxiety, Depression and Bipolar Disorder who was brought to ED by EMS for evaluation of ETOH Intoxication. Plan: Continue current treatment. CIWAA protocol. CIWAA score is usually high during the day. Metoprolol PO for Tachycardia. Daily 25 mg BID metoprolol. Routine AM labs. IV fluids for hydration - discontinue for now. Librium 50 mg BID. PRN anti-emetic agents. Magnesium changed to 800 mg po BID. Potassium 10 mg po daily. Supplement thiamine. Regular diet but monitor. Seizure precautions. CM/SW consultation. Dr. Torres, psychiatry consultation. DVT/GI prophylaxis. Remove lipscomb catheter. Code status is full. LOS >96 Hrs due to severe detox and generalized weakness.
[2020-03-12] MEDS: DULoxetine 30 MG Cap PO SCH (08:03)
[2020-03-12] MEDS: Losartan 25 MG Tab PO SCH (08:03)
[2020-03-12] MEDS: Magnesium Oxide 400 MG Tab PO SCH ×2 (08:04→20:32)
[2020-03-12] MEDS: Potassium Chloride 20 MEQ Tab.ER PO SCH (08:04)
[2020-03-12] MEDS: chlordiazePOXIDE 25 MG Cap PO SCH ×2 (08:05→20:35)
[2020-03-12] MEDS: Metoprolol Tartrate 25 MG Tab PO SCH ×2 (08:05→20:34)
[2020-03-12] MEDS: Sucralfate 1 GM Tab PO SCH ×4 (08:05→20:37)
[2020-03-12] MEDS: Pantoprazole 40 MG Tab.CR PO SCH (08:05)
[2020-03-12] MEDS: Thiamine 100 MG Tab PO SCH (08:05)
[2020-03-12] MEDS: Formoterol/Mometasone 200-5 MCG 8.8 GM Inhaler IH SCH ×2 (08:12→21:37)
[2020-03-12] MEDS ORDERED: Potassium Chloride 20 MEQ Tab.ER PO ONE (10:34)
[2020-03-12] MEDS: OLANZapine 5 MG Tab PO SCH (20:33)
[2020-03-12] MEDS: Topiramate 25 MG Tab PO SCH (20:35)
[2020-03-12] MEDS: Montelukast 10 MG Tab PO SCH (20:37)
--- NOTE | 2020-03-13 07:19 | PCM.PN ---
- General Info Date of Service: 03/13/20 Admission Dx/Problem (Free Text): ETOH Abuse Subjective Update: No overnight issues. However she has been having loose bowel movements and her appetite has considerably improved. She is arousable and able to briefly engage. She has no complaints. She looks better this morning and so far has not had hallucinations. Her CIWAA score is mild to moderate at this moment. Functional Status: Reports: Pain Controlled, Tolerating Diet, Ambulating, Urinating. Denies: New Symptoms - Review of Systems General: Denies: Fever, Chills HEENT: Denies: Headaches Pulmonary: Denies: Shortness of Breath, Cough Cardiovascular: Reports: Other. Denies: Chest Pain, Lightheadedness Gastrointestinal: Reports: Diarrhea. Denies: Abdominal Pain, Nausea, Vomiting Genitourinary: Denies: Dysuria, Burning Musculoskeletal: Denies: Joint Pain Skin: Denies: Cyanosis, Pruritis, Rash Neurological: Reports: Weakness, Gait Disturbance. Denies: Confusion Psychiatric: Denies: Mood Lability, Anxiety, Agitation, Hallucinations, Suicidal Ideation, Homicidal Ideation - Patient Data Vitals - Most Recent: Last Vital Signs Temp 36.8 C 03/13/20 04:00 Pulse 96 03/13/20 04:00 Resp 18 03/13/20 04:00 BP 112/70 03/13/20 04:00 Pulse Ox 92 L 03/13/20 04:00 Weight - Most Recent: 58.105 kg I&O - Last 24 Hours: Intake & Output 03/12/20 03/13/20 03/13/20 22:59 06:59 14:59 Intake Total 1500 250 Balance 1500 250 Med Orders - Current: Current Medications Al Hydroxide/Mg Hydroxide (Mag-Al Plus) 30 ml PO Q4H PRN PRN Reason: Heartburn Last Admin: 03/12/20 01:40 Dose: 30 ml Documented by: Albuterol/Ipratropium (Duoneb 3.0-0.5 Mg/3 Ml) 3 ml NEB Q4H PRN PRN Reason: Shortness Of Breath/wheezing Chlordiazepoxide HCl (Librium) 50 mg PO BID [facility] Last Admin: 03/12/20 20:35 Dose: 50 mg Documented by: Clonidine HCl (Catapres) 0.1 mg PO Q4H PRN PRN Reason: Agitation Last Admin: 03/10/20 13:11 Dose: 0.1 mg Documented by: Docusate Sodium (Colace) 100 mg PO BID PRN PRN Reason: Constipation Duloxetine HCl (Cymbalta) 30 mg PO DAILY [facility] Last Admin: 03/12/20 08:03 Dose: 30 mg Documented by: Haloperidol Lactate (Haldol) 2 mg IM Q4H PRN PRN Reason: Agitation Last Admin: 03/10/20 23:13 Dose: 2 mg Documented by: Hydralazine HCl (Apresoline) 20 mg IVPUSH Q4H PRN PRN Reason: Hypertension Promethazine HCl 12.5 mg/ (Sodium Chloride) 50.5 mls @ 100 mls/hr IV Q6H PRN PRN Reason: Nausea/Vomiting Last Admin: 03/06/20 23:44 Dose: 100 mls/hr Documented by: Lorazepam (Ativan) 1 - 3 mg IVPUSH Q1H PRN; Protocol PRN Reason: Withdrawal Symptoms Last Admin: 03/12/20 03:28 Dose: 1 mg Documented by: Losartan Potassium (Cozaar) 12.5 mg PO DAILY [facility] Last Admin: 03/12/20 08:03 Dose: 12.5 mg Documented by: Magnesium Oxide (Magnesium Oxide) 800 mg PO BID [facility] Last Admin: 03/12/20 20:32 Dose: 800 mg Documented by: Metoprolol Tartrate (Lopressor) 25 mg PO Q6H PRN PRN Reason: See Label Comment Last Admin: 03/07/20 08:30 Dose: 25 mg Documented by: Metoprolol Tartrate (Lopressor) 25 mg PO Q12H [facility] Last Admin: 03/12/20 20:34 Dose: 25 mg Documented by: Mometasone Furoate/Formoterol Fumar (Dulera 200-5 Mcg) 2 puff IH BID [facility] Last Admin: 03/12/20 21:37 Dose: Not Given Documented by: Montelukast Sodium (Singulair) 10 mg PO BEDTIME [facility] Last Admin: 03/12/20 20:37 Dose: 10 mg Documented by: Olanzapine (Zyprexa) 10 mg PO BEDTIME [facility] Last Admin: 03/12/20 20:33 Dose: 10 mg Documented by: Ondansetron HCl (Zofran) 4 mg IV Q6H PRN PRN Reason: Nausea/Vomiting Last Admin: 03/08/20 23:15 Dose: 4 mg Documented by: Pantoprazole Sodium (Protonix) 40 mg PO DAILY@0800 [facility] Last Admin: 03/12/20 08:05 Dose: 40 mg Documented by: Polyethylene Glycol (Miralax) 17 gm PO DAILY PRN PRN Reason: Constipation Potassium Chloride (Klor-Con 10) 10 meq PO DAILY [facility] Sodium Chloride (Saline Flush) 10 ml FLUSH ASDIRECTED PRN PRN Reason: Keep Vein Open Last Admin: 03/06/20 16:10 Dose: 10 ml Documented by: Sucralfate (Carafate) 1 gm PO QID [facility] Last Admin: 03/12/20 20:37 Dose: 1 gm Documented by: Topiramate (Topamax) 50 mg PO BEDTIME [facility] Last Admin: 03/12/20 20:35 Dose: 50 mg Documented by: Discontinued Medications Atenolol (Tenormin) 25 mg PO QAM [facility] Last Admin: 03/07/20 08:00 Dose: 25 mg Documented by: Diphenhydramine HCl (Benadryl) 50 mg IVPUSH ONETIME ONE Stop: 03/06/20 19:32 Last Admin: 03/06/20 20:00 Dose: 50 mg Documented by: Folic Acid (Folic Acid) 1 mg PO DAILY [facility] Stop: 03/09/20 09:01 Last Admin: 03/09/20 08:09 Dose: 1 mg Documented by: Lactated Ringer's (Ringers, Lactated) 1,000 mls @ 500 mls/hr IV .BOLUS [facility] Last Admin: 03/06/20 16:10 Dose: 500 mls/hr Documented by: Potassium Chloride 10 meq/ (Premix) 100 mls @ 100 mls/hr IV Q1H [facility] Stop: 03/06/20 21:14 Last Admin: 03/06/20 21:34 Dose: 100 mls/hr Documented by: Magnesium Sulfate 4 gm/ Premix 50 mls @ 12.5 mls/hr IV ONETIME ONE Stop: 03/06/20 21:15 Last Admin: 03/06/20 20:06 Dose: 12.5 mls/hr Documented by: Lidocaine HCl (Xylocaine-Mpf 1%) Confirm Administered Dose 4 mls @ as directed .ROUTE .STK-MED ONE Stop: 03/06/20 18:39 Sodium Chloride (Normal Saline) 1,000 mls @ 50 mls/hr IV ASDIRECTED [facility] Stop: 03/07/20 15:44 Last Admin: 03/06/20 19:56 Dose: 50 mls/hr Documented by: Potassium Chloride 10 meq/ (Premix) 100 mls @ 100 mls/hr IV Q1H [facility] Stop: 03/07/20 10:14 Last Admin: 03/07/20 09:41 Dose: 100 mls/hr Documented by: Dextrose/Lactated Ringer's (Dextrose 5%-Lactated Ringers) 1,000 mls @ 125 mls/hr IV ASDIRECTED [facility] Last Admin: 03/07/20 13:12 Dose: 125 mls/hr Documented by: Lactated Ringer's (Ringers, Lactated) 1,000 mls @ 125 mls/hr IV ASDIRECTED [facility] Lactated Ringer's (Ringers, Lactated) 1,000 mls @ 75 mls/hr IV ASDIRECTED [facility] Last Admin: 03/07/20 21:05 Dose: 75 mls/hr Documented by: Magnesium Sulfate 4 gm/ Premix 50 mls @ 12.5 mls/hr IV ONETIME ONE Stop: 03/08/20 11:59 Last Admin: 03/08/20 08:35 Dose: 12.5 mls/hr Documented by: Potassium Phosphate 30 mmole/ (Sodium Chloride) 510 mls @ 102 mls/hr IV ONETIME ONE Stop: 03/08/20 16:59 Last Admin: 03/08/20 12:34 Dose: 102 mls/hr Documented by: Lactated Ringer's (Ringers, Lactated) 1,000 mls @ 125 mls/hr IV ASDIRECTED [facility] Last Admin: 03/10/20 09:50 Dose: 125 mls/hr Documented by: Magnesium Sulfate 4 gm/ Premix 50 mls @ 12.5 mls/hr IV ONETIME ONE Stop: 03/09/20 11:59 Last Admin: 03/09/20 08:18 Dose: 12.5 mls/hr Documented by: Lactated Ringer's (Ringers, Lactated) 1,000 mls @ 75 mls/hr IV ASDIRECTED [facility] Last Admin: 03/11/20 09:40 Dose: 75 mls/hr Documented by: Magnesium Sulfate 4 gm/ Premix 50 mls @ 12.5 mls/hr IV ONETIME ONE Stop: 03/11/20 11:29 Last Admin: 03/11/20 08:30 Dose: 12.5 mls/hr Documented by: Magnesium Sulfate (Magnesium Sulfate In Water Premix) 2 gm in 50 mls @ 25 mls/hr IV ONETIME ONE Stop: 03/11/20 13:59 Last Admin: 03/11/20 12:19 Dose: 25 mls/hr Documented by: Magnesium Oxide (Magnesium Oxide) 200 mg PO DAILY [facility] Last Admin: 03/09/20 08:08 Dose: 200 mg Documented by: Magnesium Oxide (Magnesium Oxide) 400 mg PO BID [facility] Last Admin: 03/12/20 08:04 Dose: 400 mg Documented by: Metoprolol Tartrate (Lopressor) 5 mg IVPUSH ONETIME ONE Stop: 03/07/20 13:00 Last Admin: 03/07/20 13:05 Dose: 5 mg Documented by: Metoprolol Tartrate (Lopressor) 25 mg PO ONETIME ONE Stop: 03/07/20 13:02 Last Admin: 03/07/20 13:12 Dose: 25 mg Documented by: Metoprolol Tartrate (Lopressor) Confirm Administered Dose 5 mg .ROUTE .STK-MED ONE Stop: 03/07/20 13:03 Last Admin: 03/07/20 13:09 Dose: Not Given Documented by: Multivitamins (Thera) 1 each PO DAILY [facility] Stop: 03/11/20 09:01 Last Admin: 03/11/20 09:35 Dose: 1 each Documented by: Ondansetron HCl (Zofran) 4 mg IVPUSH ONETIME ONE Stop: 03/06/20 16:03 Last Admin: 03/06/20 16:10 Dose: 4 mg Documented by: Pantoprazole Sodium (Protonix) 40 mg PO ACBREAKFAST [facility] Pantoprazole Sodium (Protonix Iv) 40 mg .XX ONETIME ONE Stop: 03/06/20 19:21 Last Admin: 03/06/20 21:37 Dose: Not Given Documented by: Pantoprazole Sodium (Protonix Iv) 40 mg IVPUSH ONETIME ONE Stop: 03/06/20 21:22 Last Admin: 03/06/20 21:33 Dose: 40 mg Documented by: Potassium Chloride (Klor-Con M20) 20 meq PO DAILY [facility] Potassium Chloride (Klor-Con M20) 40 meq PO BID [facility] Stop: 03/08/20 09:01 Last Admin: 03/08/20 08:30 Dose: 40 meq Documented by: Potassium Chloride (Klor-Con M20) 40 meq PO BID [facility] Stop: 03/12/20 09:01 Last Admin: 03/12/20 08:04 Dose: 40 meq Documented by: Potassium Chloride (Klor-Con M20) 40 meq PO ONETIME ONE Stop: 03/12/20 10:35 Last Admin: 03/12/20 11:50 Dose: 40 meq Documented by: Thiamine HCl (Vitamin B-1) 100 mg IVPUSH ONETIME ONE Stop: 03/06/20 17:23 Last Admin: 03/06/20 17:39 Dose: 100 mg Documented by: Thiamine HCl (Vitamin B-1) 100 mg PO DAILY [facility] Stop: 03/12/20 09:01 Last Admin: 03/12/20 08:05 Dose: 100 mg Documented by: Topiramate (Topamax) 25 mg PO BID [facility] - Exam General: Alert, Cooperative, No Acute Distress HEENT: Pupils Equal, Pupils Reactive, EOMI, Mucous Membr. Moist/Perla Neck: Supple Lungs: Normal Respiratory Effort, Rhonchi Cardiovascular: Regular Rate, Regular Rhythm GI/Abdominal Exam: Normal Bowel Sounds, Soft, Non-Tender, No Organomegaly, No Distention, No Abnormal Bruit (Female) Exam: Deferred Back Exam: Normal Inspection, Decreased Range of Motion Extremities: Normal Inspection, Normal Range of Motion, Non-Tender, No Pedal Edema, Normal Capillary Refill Peripheral Pulses: 2+: Dorsalis Pedis (L), Dorsalis Pedis (R) Skin: Warm, Dry, Intact Neurological: No New Focal Deficit, Normal Gait Psy/Mental Status: Alert, Normal Affect, Withdrawal Symptoms Sepsis Event Note - Evaluation Sepsis Screening Result: No Definite Risk - Focused Exam Vital Signs: Vital Signs Temp Pulse Resp BP BP Pulse Ox 03/13/20 04:00 36.8 C 96 18 112/70 92 L 03/13/20 00:00 36.8 C 107 H 17 107/68 98 03/12/20 20:34 103 H 120/65 03/12/20 20:00 36.8 C 104 H 15 120/65 93 L - Problem List Review Problem List Initiated/Reviewed/Updated: Yes - My Orders Last 24 Hours: My Active Orders 03/12/20 11:00 One To One Therapy [BH] Routine 03/12/20 21:00 Magnesium Oxide 800 mg PO BID 03/13/20 09:00 Potassium Chloride [Klor-Con 10] 10 meq PO DAILY - Plan Plan:: This is a 64 yo white female with past medical hx/o Impaired vision, hypertension, hyperlipidemia, Asthma, GERD, Recurrent UTI, Chronic Headaches, Eating Disorder, Osteoporosis, Chronic ETOH Abuse/Use, Anxiety, Depression and Bipolar Disorder who was brought in to ED by EMS for evaluation of ETOH Intoxication. Assessment: Acute: ETOH Intoxication with CYNTHIA level of 0.50, known chronic alcoholic Acute on Chronic ETOH Abuse, carries a hx/o prolonged and hard detox Alcohol withdrawal syndrome with delirium, continues to improve Thrombocytopenia with Platelet of 136K Hypokalemia with K of 2.6-->2.7-->3.3-->3.9-->3.5-->3.4, persistent due to inadequate nutritional intake Hypomagnesemia with Mg of 1.7-->2.1-->1.6-->1.8-->1.7-->1.4, persistent due to inadequate nutritional intake Hypoalbuminemia with Albumin of 2.4-->2.0-->1.9-->1.8, persistent due to inadequate nutritional intake Hyperchloremia with Cl of 110 Hypoglycemia with blood glucose of 42, no diabetes history Generalized Weakness, mostly bedbound and poor nutritional intake Resolved: Leukocytosis with WBC of 15.31-->16.30-->6.73, resolved Thrombocytosis, might be pseudo Elevated AG of 17.6-->21.7-->15.3-->14.9, resolved Elevated AST of 60-->63-->46-->28, resolved Elevated Alk Phos fo 155-->125-->122-->112, resolved Mild Rhabdomyolysis with CK of 647-->703-->312-->186, resolved Hypophosphatemia with phosphorous of 1.4--> now 4, resolved Chronic: Impaired vision, hypertension, hyperlipidemia, Asthma, GERD, Recurrent UTI, Chronic Headaches, Eating Disorder, Osteoporosis, Chronic ETOH Abuse/Use, Anxiety, Depression and Bipolar Disorder who was brought to ED by EMS for evaluation of ETOH Intoxication. Plan: Continue current treatment. CIWAA protocol. Metoprolol PO for Tachycardia. Daily 25 mg BID metoprolol. Repeat AM labs. IV fluids for hydration - discontinue for now. Librium 50 mg BID. PRN anti-emetic agents. Magnesium changed to 800 mg po BID. Potassium 10 mg po daily. Supplement thiamine. Regular diet but monitor. Seizure precautions. CM/SW consultation. Dr. Torres, psychiatry consultation. DVT/GI prophylaxis. Code status is full. LOS >96 Hrs due to severe detox and generalized weakness.
[2020-03-13] MEDS: Formoterol/Mometasone 200-5 MCG 8.8 GM Inhaler IH SCH ×2 (07:59→20:17)
[2020-03-13] MEDS: Metoprolol Tartrate 25 MG Tab PO SCH ×2 (08:42→21:18)
[2020-03-13] MEDS: Potassium Chloride 10 MEQ Tab.ER PO SCH (08:42)
[2020-03-13] MEDS: DULoxetine 30 MG Cap PO SCH (08:42)
[2020-03-13] MEDS: Losartan 25 MG Tab PO SCH (08:43)
[2020-03-13] MEDS: chlordiazePOXIDE 25 MG Cap PO SCH ×2 (08:43→20:01)
[2020-03-13] MEDS: Sucralfate 1 GM Tab PO SCH ×4 (08:43→20:03)
[2020-03-13] MEDS: Magnesium Oxide 400 MG Tab PO SCH ×2 (08:43→20:00)
[2020-03-13] MEDS: Pantoprazole 40 MG Tab.CR PO SCH (08:43)
[2020-03-13] MEDS: LORazepam 2 MG/ML SDV IVPUSH PRN (16:04)
[2020-03-13] MEDS: Montelukast 10 MG Tab PO SCH (20:01)
[2020-03-13] MEDS: OLANZapine 5 MG Tab PO SCH (20:02)
[2020-03-13] MEDS: Topiramate 25 MG Tab PO SCH (20:03)
--- NOTE | 2020-03-14 08:01 | PCM.PN ---
- General Info Date of Service: 03/14/20 Admission Dx/Problem (Free Text): ETOH Abuse Subjective Update: In to see "Gadiel." Denies any current pain but states that she feels anxious. She did see Dr. Torres, psychiatry, today and medications were adjusted. We will decrease her Librium as she is likely beyond the withdrawal phase. We will remove one-to-one care and downgrade to MedSur status with telemetry. Social work has been working on options for treatment after discharge. Her magnesium remains low and she was started on daily p.o. supplementation. Will stop PPI as this is likely leading to her magnesium levels being low. We will also supplement IV today. Her CIWA's remain low and stable. She does have a history of baseline anxiety, depression, and bipolar disease. Functional Status: Reports: Pain Controlled, Tolerating Diet, Ambulating, Urinating. Denies: New Symptoms - Review of Systems General: Reports: Weakness, Fatigue, Malaise. Denies: Fever, Chills HEENT: Reports: No Symptoms. Denies: Headaches, Sore Throat Pulmonary: Reports: No Symptoms. Denies: Shortness of Breath, Cough, Sputum, Wheezing Cardiovascular: Reports: No Symptoms. Denies: Chest Pain, Palpitations, Dyspnea on Exertion Gastrointestinal: Reports: No Symptoms. Denies: Abdominal Pain, Constipation, Diarrhea, Nausea, Vomiting Genitourinary: Reports: No Symptoms. Denies: Pain Musculoskeletal: Reports: No Symptoms Skin: Reports: No Symptoms. Denies: Cyanosis Neurological: Reports: Confusion, Difficulty Walking, Weakness, Gait Disturbance. Denies: Dizziness, Headache, Numbness, Seizure, Syncope, Tingling Psychiatric: Reports: No Symptoms - Patient Data Vitals - Most Recent: Last Vital Signs Temp 97.1 F 03/14/20 07:46 Pulse 117 H 03/14/20 07:46 Resp 18 03/14/20 07:46 BP 99/77 03/14/20 07:46 Pulse Ox 93 L 03/14/20 07:46 Weight - Most Recent: 129 lb I&O - Last 24 Hours: Intake & Output 03/13/20 03/14/20 03/14/20 22:59 06:59 14:59 Intake Total 1080 300 Balance 1080 300 Lab Results Last 24 Hours: Laboratory Results - last 24 hr 01/18/21 Range/Units 07:15 Sodium 139 (136-145) mEq/L Potassium 4.0 (3.5-5.1) mEq/L Chloride 105 (98-107) mEq/L Carbon Dioxide 19 L (21-32) mEq/L Anion Gap 19.0 H (5-15) BUN 16 (7-18) mg/dL Creatinine 0.6 (0.55-1.02) mg/dL Est Cr Clr Drug Dosing 89.80 mL/min Estimated GFR (MDRD) > 60 (>60) mL/min BUN/Creatinine Ratio 26.7 H (14-18) Glucose 101 (80-115) mg/dL Calcium 8.7 (8.5-10.1) mg/dL Magnesium 1.4 L (1.8-2.4) mg/dl Med Orders - Current: Current Medications Al Hydroxide/Mg Hydroxide (Mag-Al Plus) 30 ml PO Q4H PRN PRN Reason: Heartburn Last Admin: 03/12/20 01:40 Dose: 30 ml Documented by: Albuterol/Ipratropium (Duoneb 3.0-0.5 Mg/3 Ml) 3 ml NEB Q4H PRN PRN Reason: Shortness Of Breath/wheezing Chlordiazepoxide HCl (Librium) 50 mg PO BID [facility] Last Admin: 03/13/20 20:01 Dose: 50 mg Documented by: Clonidine HCl (Catapres) 0.1 mg PO Q4H PRN PRN Reason: Agitation Last Admin: 03/10/20 13:11 Dose: 0.1 mg Documented by: Docusate Sodium (Colace) 100 mg PO BID PRN PRN Reason: Constipation Duloxetine HCl (Cymbalta) 30 mg PO DAILY [facility] Last Admin: 03/13/20 08:42 Dose: 30 mg Documented by: Haloperidol Lactate (Haldol) 2 mg IM Q4H PRN PRN Reason: Agitation Last Admin: 03/10/20 23:13 Dose: 2 mg Documented by: Hydralazine HCl (Apresoline) 20 mg IVPUSH Q4H PRN PRN Reason: Hypertension Promethazine HCl 12.5 mg/ (Sodium Chloride) 50.5 mls @ 100 mls/hr IV Q6H PRN PRN Reason: Nausea/Vomiting Last Admin: 03/06/20 23:44 Dose: 100 mls/hr Documented by: Lorazepam (Ativan) 1 - 3 mg IVPUSH Q1H PRN; Protocol PRN Reason: Withdrawal Symptoms Last Admin: 03/13/20 16:04 Dose: 2 mg Documented by: Losartan Potassium (Cozaar) 12.5 mg PO DAILY [facility] Last Admin: 03/13/20 08:43 Dose: 12.5 mg Documented by: Magnesium Oxide (Magnesium Oxide) 800 mg PO BID [facility] Last Admin: 03/13/20 20:00 Dose: 800 mg Documented by: Metoprolol Tartrate (Lopressor) 25 mg PO Q6H PRN PRN Reason: See Label Comment Last Admin: 03/07/20 08:30 Dose: 25 mg Documented by: Metoprolol Tartrate (Lopressor) 25 mg PO Q12H [facility] Last Admin: 03/13/20 21:18 Dose: 25 mg Documented by: Mometasone Furoate/Formoterol Fumar (Dulera 200-5 Mcg) 2 puff IH BID [facility] Last Admin: 03/13/20 20:17 Dose: 2 puff Documented by: Montelukast Sodium (Singulair) 10 mg PO BEDTIME [facility] Last Admin: 03/13/20 20:01 Dose: 10 mg Documented by: Olanzapine (Zyprexa) 10 mg PO BEDTIME [facility] Last Admin: 03/13/20 20:02 Dose: 10 mg Documented by: Ondansetron HCl (Zofran) 4 mg IV Q6H PRN PRN Reason: Nausea/Vomiting Last Admin: 03/08/20 23:15 Dose: 4 mg Documented by: Polyethylene Glycol (Miralax) 17 gm PO DAILY PRN PRN Reason: Constipation Potassium Chloride (Klor-Con 10) 10 meq PO DAILY [facility] Last Admin: 03/13/20 08:42 Dose: 10 meq Documented by: Sodium Chloride (Saline Flush) 10 ml FLUSH ASDIRECTED PRN PRN Reason: Keep Vein Open Last Admin: 03/06/20 16:10 Dose: 10 ml Documented by: Sucralfate (Carafate) 1 gm PO QID [facility] Last Admin: 03/13/20 20:03 Dose: 1 gm Documented by: Topiramate (Topamax) 50 mg PO BEDTIME [facility] Last Admin: 03/13/20 20:03 Dose: 50 mg Documented by: Discontinued Medications Atenolol (Tenormin) 25 mg PO QAM [facility] Last Admin: 03/07/20 08:00 Dose: 25 mg Documented by: Diphenhydramine HCl (Benadryl) 50 mg IVPUSH ONETIME ONE Stop: 03/06/20 19:32 Last Admin: 03/06/20 20:00 Dose: 50 mg Documented by: Folic Acid (Folic Acid) 1 mg PO DAILY [facility] Stop: 03/09/20 09:01 Last Admin: 03/09/20 08:09 Dose: 1 mg Documented by: Lactated Ringer's (Ringers, Lactated) 1,000 mls @ 500 mls/hr IV .BOLUS [facility] Last Admin: 03/06/20 16:10 Dose: 500 mls/hr Documented by: Potassium Chloride 10 meq/ (Premix) 100 mls @ 100 mls/hr IV Q1H [facility] Stop: 03/06/20 21:14 Last Admin: 03/06/20 21:34 Dose: 100 mls/hr Documented by: Magnesium Sulfate 4 gm/ Premix 50 mls @ 12.5 mls/hr IV ONETIME ONE Stop: 03/06/20 21:15 Last Admin: 03/06/20 20:06 Dose: 12.5 mls/hr Documented by: Lidocaine HCl (Xylocaine-Mpf 1%) Confirm Administered Dose 4 mls @ as directed .ROUTE .STK-MED ONE Stop: 03/06/20 18:39 Sodium Chloride (Normal Saline) 1,000 mls @ 50 mls/hr IV ASDIRECTED [facility] Stop: 03/07/20 15:44 Last Admin: 03/06/20 19:56 Dose: 50 mls/hr Documented by: Potassium Chloride 10 meq/ (Premix) 100 mls @ 100 mls/hr IV Q1H [facility] Stop: 03/07/20 10:14 Last Admin: 03/07/20 09:41 Dose: 100 mls/hr Documented by: Dextrose/Lactated Ringer's (Dextrose 5%-Lactated Ringers) 1,000 mls @ 125 mls/hr IV ASDIRECTED [facility] Last Admin: 03/07/20 13:12 Dose: 125 mls/hr Documented by: Lactated Ringer's (Ringers, Lactated) 1,000 mls @ 125 mls/hr IV ASDIRECTED [facility] Lactated Ringer's (Ringers, Lactated) 1,000 mls @ 75 mls/hr IV ASDIRECTED [facility] Last Admin: 03/07/20 21:05 Dose: 75 mls/hr Documented by: Magnesium Sulfate 4 gm/ Premix 50 mls @ 12.5 mls/hr IV ONETIME ONE Stop: 03/08/20 11:59 Last Admin: 03/08/20 08:35 Dose: 12.5 mls/hr Documented by: Potassium Phosphate 30 mmole/ (Sodium Chloride) 510 mls @ 102 mls/hr IV ONETIME ONE Stop: 03/08/20 16:59 Last Admin: 03/08/20 12:34 Dose: 102 mls/hr Documented by: Lactated Ringer's (Ringers, Lactated) 1,000 mls @ 125 mls/hr IV ASDIRECTED [facility] Last Admin: 03/10/20 09:50 Dose: 125 mls/hr Documented by: Magnesium Sulfate 4 gm/ Premix 50 mls @ 12.5 mls/hr IV ONETIME ONE Stop: 03/09/20 11:59 Last Admin: 03/09/20 08:18 Dose: 12.5 mls/hr Documented by: Lactated Ringer's (Ringers, Lactated) 1,000 mls @ 75 mls/hr IV ASDIRECTED [facility] Last Admin: 03/11/20 09:40 Dose: 75 mls/hr Documented by: Magnesium Sulfate 4 gm/ Premix 50 mls @ 12.5 mls/hr IV ONETIME ONE Stop: 03/11/20 11:29 Last Admin: 03/11/20 08:30 Dose: 12.5 mls/hr Documented by: Magnesium Sulfate (Magnesium Sulfate In Water Premix) 2 gm in 50 mls @ 25 mls/hr IV ONETIME ONE Stop: 03/11/20 13:59 Last Admin: 03/11/20 12:19 Dose: 25 mls/hr Documented by: Magnesium Oxide (Magnesium Oxide) 200 mg PO DAILY [facility] Last Admin: 03/09/20 08:08 Dose: 200 mg Documented by: Magnesium Oxide (Magnesium Oxide) 400 mg PO BID [facility] Last Admin: 03/12/20 08:04 Dose: 400 mg Documented by: Metoprolol Tartrate (Lopressor) 5 mg IVPUSH ONETIME ONE Stop: 03/07/20 13:00 Last Admin: 03/07/20 13:05 Dose: 5 mg Documented by: Metoprolol Tartrate (Lopressor) 25 mg PO ONETIME ONE Stop: 03/07/20 13:02 Last Admin: 03/07/20 13:12 Dose: 25 mg Documented by: Metoprolol Tartrate (Lopressor) Confirm Administered Dose 5 mg .ROUTE .STK-MED ONE Stop: 03/07/20 13:03 Last Admin: 03/07/20 13:09 Dose: Not Given Documented by: Multivitamins (Thera) 1 each PO DAILY [facility] Stop: 03/11/20 09:01 Last Admin: 03/11/20 09:35 Dose: 1 each Documented by: Ondansetron HCl (Zofran) 4 mg IVPUSH ONETIME ONE Stop: 03/06/20 16:03 Last Admin: 03/06/20 16:10 Dose: 4 mg Documented by: Pantoprazole Sodium (Protonix) 40 mg PO ACBREAKFAST [facility] Pantoprazole Sodium (Protonix Iv) 40 mg .XX ONETIME ONE Stop: 03/06/20 19:21 Last Admin: 03/06/20 21:37 Dose: Not Given Documented by: Pantoprazole Sodium (Protonix Iv) 40 mg IVPUSH ONETIME ONE Stop: 03/06/20 21:22 Last Admin: 03/06/20 21:33 Dose: 40 mg Documented by: Pantoprazole Sodium (Protonix) 40 mg PO DAILY@0800 [facility] Last Admin: 03/13/20 08:43 Dose: 40 mg Documented by: Potassium Chloride (Klor-Con M20) 20 meq PO DAILY [facility] Potassium Chloride (Klor-Con M20) 40 meq PO BID [facility] Stop: 03/08/20 09:01 Last Admin: 03/08/20 08:30 Dose: 40 meq Documented by: Potassium Chloride (Klor-Con M20) 40 meq PO BID [facility] Stop: 03/12/20 09:01 Last Admin: 03/12/20 08:04 Dose: 40 meq Documented by: Potassium Chloride (Klor-Con M20) 40 meq PO ONETIME ONE Stop: 03/12/20 10:35 Last Admin: 03/12/20 11:50 Dose: 40 meq Documented by: Thiamine HCl (Vitamin B-1) 100 mg IVPUSH ONETIME ONE Stop: 03/06/20 17:23 Last Admin: 03/06/20 17:39 Dose: 100 mg Documented by: Thiamine HCl (Vitamin B-1) 100 mg PO DAILY [facility] Stop: 03/12/20 09:01 Last Admin: 03/12/20 08:05 Dose: 100 mg Documented by: Topiramate (Topamax) 25 mg PO BID [facility] - Exam Quality Assessment: DVT Prophylaxis. No: Supplemental Oxygen, Urine Catheter General: Alert, Cooperative, No Acute Distress, Sedated (mildly). No: Oriented HEENT: Pupils Equal, Pupils Reactive, Mucous Membr. Moist/[facility] Neck: Supple, Trachea Midline Lungs: Normal Respiratory Effort, Decreased Breath Sounds, Rhonchi Cardiovascular: Regular Rate, Regular Rhythm GI/Abdominal Exam: Normal Bowel Sounds, Soft, Non-Tender, No Distention (Female) Exam: Deferred Back Exam: Normal Inspection, Full Range of Motion Extremities: Normal Inspection, Normal Range of Motion, Non-Tender, Normal Capillary Refill, Pedal Edema Skin: Warm, Dry, Intact, Ecchymosis Neurological: No New Focal Deficit Psy/Mental Status: Alert, Labile Mood, Anxious, Depressed, Hallucinations (at times ), Withdrawal Symptoms. No: Agitated Sepsis Event Note - Evaluation Sepsis Screening Result: No Definite Risk - Focused Exam Vital Signs: Vital Signs Temp Pulse Resp BP BP Pulse Ox Pulse Ox 03/14/20 07:46 97.1 F 117 H 18 99/77 93 L 03/14/20 04:00 98.3 F 94 18 93/53 L 95 03/13/20 23:59 98.7 F 101 H 15 98/56 L 92 L 03/13/20 21:18 105 H 109/64 03/13/20 20:15 95 - Problem List & Annotations (1) Alcohol intoxication SNOMED Code(s): 99718059 Code(s): F10.129 - ALCOHOL ABUSE WITH INTOXICATION, UNSPECIFIED Status: Acute Priority: High Current Visit: Yes Qualifiers: Complication of substance-induced condition: with delirium Qualified Code(s): F10.921 - Alcohol use, unspecified with intoxication delirium (2) Hypocalcemia SNOMED Code(s): 0219185 Code(s): E83.51 - HYPOCALCEMIA Status: Acute Priority: High Current Visit: Yes (3) Hypokalemia SNOMED Code(s): 35800429 Code(s): E87.6 - HYPOKALEMIA Status: Acute Priority: High Current Visit: Yes (4) Hypomagnesemia SNOMED Code(s): 621671692 Code(s): E83.42 - HYPOMAGNESEMIA Status: Acute Priority: High Current Visit: Yes (5) Alcohol abuse with alcohol-induced anxiety disorder SNOMED Code(s): 37652583, 14743045 Code(s): F10.180 - ALCOHOL ABUSE WITH ALCOHOL-INDUCED ANXIETY DISORDER Status: Chronic Priority: High Current Visit: Yes (6) Alcohol dependence, binge pattern SNOMED Code(s): 719424494 Code(s): F10.20 - ALCOHOL DEPENDENCE, UNCOMPLICATED Status: Chronic Priority: High Current Visit: Yes (7) Leukocytosis SNOMED Code(s): 350274121, 251232666 Code(s): D72.829 - ELEVATED WHITE BLOOD CELL COUNT, UNSPECIFIED Status: Acute Priority: High Current Visit: Yes Qualifiers: Leukocytosis type: unspecified Qualified Code(s): D72.829 - Elevated white blood cell count, unspecified (8) Bipolar disorder SNOMED Code(s): 82664424 Code(s): F31.9 - BIPOLAR DISORDER, UNSPECIFIED Status: Chronic Priority: High Current Visit: Yes Qualifiers: Active/Remission status: remission status unspecified Qualified Code(s): F31.9 - Bipolar disorder, unspecified (9) Hypoglycemia SNOMED Code(s): 336374754 Code(s): E16.2 - HYPOGLYCEMIA, UNSPECIFIED Status: Acute Priority: High Current Visit: Yes (10) Alcohol withdrawal syndrome SNOMED Code(s): 440759277 Code(s): F10.239 - ALCOHOL DEPENDENCE WITH WITHDRAWAL, UNSPECIFIED Status: Acute Priority: High Current Visit: Yes Qualifiers: Complication of substance-induced condition: with delirium Qualified Code(s): F10.231 - Alcohol dependence with withdrawal delirium (11) Hypophosphatemia SNOMED Code(s): 9403683 Code(s): E83.39 - OTHER DISORDERS OF PHOSPHORUS METABOLISM Status: Acute Priority: High Current Visit: Yes (12) Hallucinations SNOMED Code(s): 1892690 Code(s): R44.3 - HALLUCINATIONS, UNSPECIFIED Status: Acute Priority: High Current Visit: Yes - Problem List Review Problem List Initiated/Reviewed/Updated: Yes - Plan Plan:: This is a 64 yo white female with past medical hx/o Impaired vision, hypertension, hyperlipidemia, Asthma, GERD, Recurrent UTI, Chronic Headaches, Eating Disorder, Osteoporosis, Chronic ETOH Abuse/Use, Anxiety, Depression and Bipolar Disorder who was brought in to ED by EMS for evaluation of ETOH Intoxication. Assessment: Acute: ETOH Intoxication with CYNTHIA level of 0.50, known chronic alcoholic Acute on Chronic ETOH Abuse, carries a hx/o prolonged and hard detox Alcohol withdrawal syndrome with delirium, continues to improve Thrombocytopenia with Platelet of 136K Hypokalemia with K of 2.6-->2.7-->3.3-->3.9-->3.5-->3.4-->4.0, persistent due to inadequate nutritional intake Hypomagnesemia with Mg of 1.7-->2.1-->1.6-->1.8-->1.7-->1.4-->1.4, persistent due to inadequate nutritional intake Hypoalbuminemia with Albumin of 2.4-->2.0-->1.9-->1.8, persistent due to inadequate nutritional intake Hyperchloremia with Cl of 110 Hypoglycemia with blood glucose of 42, no diabetes history Generalized Weakness, mostly bedbound and poor nutritional intake Resolved: Leukocytosis with WBC of 15.31-->16.30-->6.73, resolved Thrombocytosis, might be pseudo Elevated AG of 17.6-->21.7-->15.3-->14.9, resolved Elevated AST of 60-->63-->46-->28, resolved Elevated Alk Phos fo 155-->125-->122-->112, resolved Mild Rhabdomyolysis with CK of 647-->703-->312-->186, resolved Hypophosphatemia with phosphorous of 1.4--> now 4, resolved Chronic: Impaired vision, hypertension, hyperlipidemia, Asthma, GERD, Recurrent UTI, Chronic Headaches, Eating Disorder, Osteoporosis, Chronic ETOH Abuse/Use, Anxiety, Depression and Bipolar Disorder who was brought to ED by EMS for evaluation of ETOH Intoxication. Plan: Continue current treatment. CIWAA protocol. Metoprolol PO for Tachycardia. Daily 25 mg BID metoprolol. Repeat AM labs. IV fluids for hydration - discontinue for now. Decrease Librium to 25 mg BID. PRN anti-emetic agents. Supplement magnesium. Potassium 10 mg po daily. Regular diet but monitor. Seizure precautions. CM/SW consultation. Dr. Torres, psychiatry consultation. DVT/GI prophylaxis. Code status is full. Downgrade to M/S/P status today. Remove 1:1 cares. LOS >96 Hrs due to severe detox and generalized weakness.
[2020-03-14] MEDS: Magnesium Oxide 400 MG Tab PO SCH ×2 (08:45→20:00)
[2020-03-14] MEDS: Losartan 25 MG Tab PO SCH (08:45)
[2020-03-14] MEDS: Potassium Chloride 10 MEQ Tab.ER PO SCH (08:45)
[2020-03-14] MEDS: Metoprolol Tartrate 25 MG Tab PO SCH ×2 (08:46→20:00)
[2020-03-14] MEDS: Sucralfate 1 GM Tab PO SCH ×4 (08:46→20:00)
[2020-03-14] MEDS: DULoxetine 30 MG Cap PO SCH (08:46)
[2020-03-14] MEDS: chlordiazePOXIDE 25 MG Cap PO SCH ×2 (08:47→20:00)
[2020-03-14] MEDS ORDERED: Magnesium Sulfate/Water 4 GM in Premix Bag 1 BAG IV ONE (09:00)
[2020-03-14] MEDS: Formoterol/Mometasone 200-5 MCG 8.8 GM Inhaler IH SCH ×2 (09:21→20:02)
[2020-03-14] MEDS ORDERED: LORazepam 1 MG Tab PO PRN (10:56)
[2020-03-14] MEDS: chlorproMAZINE 25 MG Tab PO SCH (17:26)
[2020-03-14] MEDS: fluvoxaMINE 100 MG Tab PO SCH (17:26)
[2020-03-14] MEDS: Topiramate 25 MG Tab PO SCH (20:00)
[2020-03-14] MEDS: Montelukast 10 MG Tab PO SCH (20:00)
[2020-03-14] MEDS: LORazepam 2 MG/ML SDV IVPUSH PRN (20:04)
[2020-03-15] MEDS ORDERED: Acetaminophen 325 MG Tab PO PRN (05:51)
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
[2020-03-15] MEDS ORDERED: cefTRIAXone 2 GM in Sodium Chloride 0.9% 100 ML IV SCH (07:00)
--- NOTE | 2020-03-15 07:30 | PCM.PN ---
- General Info Date of Service: 03/15/20 Admission Dx/Problem (Free Text): ETOH Abuse Subjective Update: Nursing notified providers that patient has had 102.9 fever is a.m. Patient was started on IV Rocephin with blood cultures obtained prior. Labs this morning show no leukocytosis and lactic acid is 0.7. UA was obtained and was negative. Chest x-ray was obtained and shows improved aeration to right lung base with no signs of infiltrates. Atelectasis is noted in the left lung base. Influenza a and B as well as COVID-19 PCR test negative. Patient is also noted to be hypotensive with blood pressures in the 80s systolic and tachycardic. 30 mg/kg fluid bolus is initiated with mild improvement in blood pressure. D-dimer is obtained and is slightly elevated. Patient denies any pain or abdominal symptoms such as diarrhea, nausea, vomiting, etc. Nursing performed full body assessment on patient looking for any signs of a skin infection with nothing noted. Discussed plan of care with Dr. Lam as we are unable to find a source for patient's symptoms. We will continue current treatment and await blood cultures. Monitor patient's blood pressure and start IV fluids. We will consider pressors if patient blood pressure does not respond. Functional Status: Reports: Pain Controlled, Tolerating Diet, Ambulating, Urinating, New Symptoms - Review of Systems General: Reports: Fever, Weakness, Fatigue, Malaise. Denies: Chills HEENT: Reports: No Symptoms. Denies: Headaches, Sore Throat Pulmonary: Reports: No Symptoms. Denies: Shortness of Breath, Cough, Sputum, Wheezing Cardiovascular: Reports: Edema (chronic ). Denies: Chest Pain, Palpitations, Dyspnea on Exertion Gastrointestinal: Reports: No Symptoms. Denies: Abdominal Pain, Constipation, Diarrhea, Nausea, Vomiting Genitourinary: Reports: No Symptoms. Denies: Pain Musculoskeletal: Reports: No Symptoms Skin: Reports: No Symptoms. Denies: Cyanosis Neurological: Reports: Confusion, Difficulty Walking, Weakness, Gait Disturbance. Denies: Numbness, Seizure, Syncope, Tingling Psychiatric: Reports: No Symptoms - Patient Data Vitals - Most Recent: Last Vital Signs Temp 101.7 F H 03/15/20 06:29 Pulse 104 H 03/14/20 20:00 Resp 20 01/19/21 06:29 BP 96/57 L 03/15/20 06:29 Pulse Ox 98 03/15/20 06:29 Weight - Most Recent: 128 lb 4.98 oz I&O - Last 24 Hours: Intake & Output 03/14/20 03/15/20 03/15/20 22:59 06:59 14:59 Intake Total 1280 Balance 1280 Lab Results Last 24 Hours: Laboratory Results - last 24 hr 03/14/20 03/15/20 03/15/20 Range/Units 07:15 05:46 05:46 WBC 7.81 (3.98-10.04) K/mm3 RBC 3.11 L (3.98-5.22) M/mm3 Hgb 9.1 L (11.2-15.7) gm/dl Hct 29.6 L (34.1-44.9) % MCV 95.2 H (79.4-94.8) fl MCH 29.3 (25.6-32.2) pg MCHC 30.7 L (32.2-35.5) g/dl RDW Std Deviation 55.0 H (36.4-46.3) fL Plt Count 223 D (182-369) K/mm3 MPV 9.3 L (9.4-12.3) fl Neut % (Auto) 67.5 (34.0-71.1) % Lymph % (Auto) 14.1 L (19.3-51.7) % Rhea % (Auto) 17.8 H (4.7-12.5) % Eos % (Auto) 0.5 L (0.7-5.8) Baso % (Auto) 0.1 (0.1-1.2) % Neut # (Auto) 5.27 (1.56-6.13) K/mm3 Lymph # (Auto) 1.10 L (1.18-3.74) K/mm3 Rhea # (Auto) 1.39 H (0.24-0.36) K/mm3 Eos # (Auto) 0.04 (0.04-0.36) K/mm3 Baso # (Auto) 0.01 (0.01-0.08) K/mm3 PT (9.7-12.0) SECONDS INR Sodium 139 139 (136-145) mEq/L Potassium 4.0 3.8 (3.5-5.1) mEq/L Chloride 105 104 (98-107) mEq/L Carbon Dioxide 19 L 25 (21-32) mEq/L Anion Gap 19.0 H 13.8 (5-15) BUN 16 17 (7-18) mg/dL Creatinine 0.6 0.7 (0.55-1.02) mg/dL Est Cr Clr Drug Dosing 89.80 76.56 mL/min Estimated GFR (MDRD) > 60 > 60 (>60) mL/min BUN/Creatinine Ratio 26.7 H 24.3 H (14-18) Glucose 101 99 (80-115) mg/dL Calcium 8.7 8.1 L (8.5-10.1) mg/dL Magnesium 1.4 L 1.6 L (1.8-2.4) mg/dl C-Reactive Protein (<1.0) mg/dL 03/15/20 03/15/20 Range/Units 05:46 05:46 WBC (3.98-10.04) K/mm3 RBC (3.98-5.22) M/mm3 Hgb (11.2-15.7) gm/dl Hct (34.1-44.9) % MCV (79.4-94.8) fl MCH (25.6-32.2) pg MCHC (32.2-35.5) g/dl RDW Std Deviation (36.4-46.3) fL Plt Count (182-369) K/mm3 MPV (9.4-12.3) fl Neut % (Auto) (34.0-71.1) % Lymph % (Auto) (19.3-51.7) % Rhea % (Auto) (4.7-12.5) % Eos % (Auto) (0.7-5.8) Baso % (Auto) (0.1-1.2) % Neut # (Auto) (1.56-6.13) K/mm3 Lymph # (Auto) (1.18-3.74) K/mm3 Rhea # (Auto) (0.24-0.36) K/mm3 Eos # (Auto) (0.04-0.36) K/mm3 Baso # (Auto) (0.01-0.08) K/mm3 PT 10.6 (9.7-12.0) SECONDS INR 0.99 Sodium (136-145) mEq/L Potassium (3.5-5.1) mEq/L Chloride (98-107) mEq/L Carbon Dioxide (21-32) mEq/L Anion Gap (5-15) BUN (7-18) mg/dL Creatinine (0.55-1.02) mg/dL Est Cr Clr Drug Dosing mL/min Estimated GFR (MDRD) (>60) mL/min BUN/Creatinine Ratio (14-18) Glucose (80-115) mg/dL Calcium (8.5-10.1) mg/dL Magnesium (1.8-2.4) mg/dl C-Reactive Protein 2.7 H* (<1.0) mg/dL Med Orders - Current: Current Medications Acetaminophen (Tylenol) 650 mg PO Q4H PRN PRN Reason: Fever Last Admin: 03/15/20 05:57 Dose: 650 mg Documented by: Al Hydroxide/Mg Hydroxide (Mag-Al Plus) 30 ml PO Q4H PRN PRN Reason: Heartburn Last Admin: 03/12/20 01:40 Dose: 30 ml Documented by: Albuterol/Ipratropium (Duoneb 3.0-0.5 Mg/3 Ml) 3 ml NEB Q4H PRN PRN Reason: Shortness Of Breath/wheezing Chlordiazepoxide HCl (Librium) 25 mg PO BID [facility] Last Admin: 03/14/20 20:00 Dose: 25 mg Documented by: Chlorpromazine HCl (Thorazine) 50 mg PO QPM [facility] Last Admin: 03/14/20 17:26 Dose: 50 mg Documented by: Clonidine HCl (Catapres) 0.1 mg PO Q4H PRN PRN Reason: Agitation Last Admin: 03/10/20 13:11 Dose: 0.1 mg Documented by: Docusate Sodium (Colace) 100 mg PO BID PRN PRN Reason: Constipation Fluvoxamine Maleate (Luvox) 50 mg PO QPM [facility] Last Admin: 03/14/20 17:26 Dose: 50 mg Documented by: Haloperidol Lactate (Haldol) 2 mg IM Q4H PRN PRN Reason: Agitation Last Admin: 03/10/20 23:13 Dose: 2 mg Documented by: Hydralazine HCl (Apresoline) 20 mg IVPUSH Q4H PRN PRN Reason: Hypertension Promethazine HCl 12.5 mg/ (Sodium Chloride) 50.5 mls @ 100 mls/hr IV Q6H PRN PRN Reason: Nausea/Vomiting Last Admin: 03/06/20 23:44 Dose: 100 mls/hr Documented by: Ceftriaxone Sodium 2 gm/ (Sodium Chloride) 100 mls @ 200 mls/hr IV Q24H [facility] Lorazepam (Ativan) 1 - 3 mg IVPUSH Q1H PRN; Protocol PRN Reason: Withdrawal Symptoms Last Admin: 03/14/20 20:04 Dose: 1 mg Documented by: Losartan Potassium (Cozaar) 12.5 mg PO DAILY [facility] Last Admin: 03/14/20 08:45 Dose: 12.5 mg Documented by: Magnesium Oxide (Magnesium Oxide) 800 mg PO BID [facility] Last Admin: 03/14/20 20:00 Dose: 800 mg Documented by: Metoprolol Tartrate (Lopressor) 25 mg PO Q6H PRN PRN Reason: See Label Comment Last Admin: 03/07/20 08:30 Dose: 25 mg Documented by: Metoprolol Tartrate (Lopressor) 25 mg PO Q12H [facility] Last Admin: 03/14/20 20:00 Dose: 25 mg Documented by: Mometasone Furoate/Formoterol Fumar (Dulera 200-5 Mcg) 2 puff IH BID [facility] Last Admin: 03/14/20 20:02 Dose: 2 puff Documented by: Montelukast Sodium (Singulair) 10 mg PO BEDTIME [facility] Last Admin: 03/14/20 20:00 Dose: 10 mg Documented by: Ondansetron HCl (Zofran) 4 mg IV Q6H PRN PRN Reason: Nausea/Vomiting Last Admin: 03/08/20 23:15 Dose: 4 mg Documented by: Polyethylene Glycol (Miralax) 17 gm PO DAILY PRN PRN Reason: Constipation Potassium Chloride (Klor-Con 10) 10 meq PO DAILY [facility] Last Admin: 03/14/20 08:45 Dose: 10 meq Documented by: Sodium Chloride (Saline Flush) 10 ml FLUSH ASDIRECTED PRN PRN Reason: Keep Vein Open Last Admin: 03/06/20 16:10 Dose: 10 ml Documented by: Sucralfate (Carafate) 1 gm PO QID [facility] Last Admin: 03/14/20 20:00 Dose: 1 gm Documented by: Topiramate (Topamax) 75 mg PO BEDTIME [facility] Last Admin: 03/14/20 20:00 Dose: 75 mg Documented by: Discontinued Medications Atenolol (Tenormin) 25 mg PO QAM [facility] Last Admin: 03/07/20 08:00 Dose: 25 mg Documented by: Chlordiazepoxide HCl (Librium) 50 mg PO BID [facility] Last Admin: 03/14/20 08:47 Dose: 50 mg Documented by: Diphenhydramine HCl (Benadryl) 50 mg IVPUSH ONETIME ONE Stop: 03/06/20 19:32 Last Admin: 03/06/20 20:00 Dose: 50 mg Documented by: Duloxetine HCl (Cymbalta) 30 mg PO DAILY [facility] Last Admin: 03/14/20 08:46 Dose: 30 mg Documented by: Folic Acid (Folic Acid) 1 mg PO DAILY [facility] Stop: 03/09/20 09:01 Last Admin: 03/09/20 08:09 Dose: 1 mg Documented by: Lactated Ringer's (Ringers, Lactated) 1,000 mls @ 500 mls/hr IV .BOLUS [facility] Last Admin: 03/06/20 16:10 Dose: 500 mls/hr Documented by: Potassium Chloride 10 meq/ (Premix) 100 mls @ 100 mls/hr IV Q1H [facility] Stop: 03/06/20 21:14 Last Admin: 03/06/20 21:34 Dose: 100 mls/hr Documented by: Magnesium Sulfate 4 gm/ Premix 50 mls @ 12.5 mls/hr IV ONETIME ONE Stop: 03/06/20 21:15 Last Admin: 03/06/20 20:06 Dose: 12.5 mls/hr Documented by: Lidocaine HCl (Xylocaine-Mpf 1%) Confirm Administered Dose 4 mls @ as directed .ROUTE .STK-MED ONE Stop: 03/06/20 18:39 Sodium Chloride (Normal Saline) 1,000 mls @ 50 mls/hr IV ASDIRECTED [facility] Stop: 03/07/20 15:44 Last Admin: 03/06/20 19:56 Dose: 50 mls/hr Documented by: Potassium Chloride 10 meq/ (Premix) 100 mls @ 100 mls/hr IV Q1H [facility] Stop: 03/07/20 10:14 Last Admin: 03/07/20 09:41 Dose: 100 mls/hr Documented by: Dextrose/Lactated Ringer's (Dextrose 5%-Lactated Ringers) 1,000 mls @ 125 mls/hr IV ASDIRECTED [facility] Last Admin: 03/07/20 13:12 Dose: 125 mls/hr Documented by: Lactated Ringer's (Ringers, Lactated) 1,000 mls @ 125 mls/hr IV ASDIRECTED [facility] Lactated Ringer's (Ringers, Lactated) 1,000 mls @ 75 mls/hr IV ASDIRECTED [facility] Last Admin: 03/07/20 21:05 Dose: 75 mls/hr Documented by: Magnesium Sulfate 4 gm/ Premix 50 mls @ 12.5 mls/hr IV ONETIME ONE Stop: 03/08/20 11:59 Last Admin: 03/08/20 08:35 Dose: 12.5 mls/hr Documented by: Potassium Phosphate 30 mmole/ (Sodium Chloride) 510 mls @ 102 mls/hr IV ONETIME ONE Stop: 03/08/20 16:59 Last Admin: 03/08/20 12:34 Dose: 102 mls/hr Documented by: Lactated Ringer's (Ringers, Lactated) 1,000 mls @ [facility] Last Admin: 03/10/20 09:50 Dose: 125 mls/hr Documented by: Magnesium Sulfate 4 gm/ Premix 50 mls @ 12.5 mls/hr IV ONETIME ONE Stop: 03/09/20 11:59 Last Admin: 03/09/20 08:18 Dose: 12.5 mls/hr Documented by: Lactated Ringer's (Ringers, Lactated) 1,000 mls @ 75 mls/hr IV ASDIRECTED [facility] Last Admin: 03/11/20 09:40 Dose: 75 mls/hr Documented by: Magnesium Sulfate 4 gm/ Premix 50 mls @ 12.5 mls/hr IV ONETIME ONE Stop: 03/11/20 11:29 Last Admin: 03/11/20 08:30 Dose: 12.5 mls/hr Documented by: Magnesium Sulfate (Magnesium Sulfate In Water Premix) 2 gm in 50 mls @ 25 mls/hr IV ONETIME ONE Stop: 03/11/20 13:59 Last Admin: 03/11/20 12:19 Dose: 25 mls/hr Documented by: Magnesium Sulfate 4 gm/ Premix 50 mls @ 12.5 mls/hr IV ONETIME ONE Stop: 03/14/20 12:59 Last Admin: 03/14/20 11:06 Dose: 12.5 mls/hr Documented by: Lorazepam (Ativan) 1 mg PO ONETIME PRN PRN Reason: Anxiety Last Admin: 03/14/20 11:14 Dose: 1 mg Documented by: Magnesium Oxide (Magnesium Oxide) 200 mg PO DAILY [facility] Last Admin: 03/09/20 08:08 Dose: 200 mg Documented by: Magnesium Oxide (Magnesium Oxide) 400 mg PO BID [facility] Last Admin: 03/12/20 08:04 Dose: 400 mg Documented by: Metoprolol Tartrate (Lopressor) 5 mg IVPUSH ONETIME ONE Stop: 03/07/20 13:00 Last Admin: 03/07/20 13:05 Dose: 5 mg Documented by: Metoprolol Tartrate (Lopressor) 25 mg PO ONETIME ONE Stop: 03/07/20 13:02 Last Admin: 03/07/20 13:12 Dose: 25 mg Documented by: Metoprolol Tartrate (Lopressor) Confirm Administered Dose 5 mg .ROUTE .STK-MED ONE Stop: 03/07/20 13:03 Last Admin: 03/07/20 13:09 Dose: Not Given Documented by: Multivitamins (Thera) 1 each PO DAILY [facility] Stop: 03/11/20 09:01 Last Admin: 03/11/20 09:35 Dose: 1 each Documented by: Olanzapine (Zyprexa) 10 mg PO BEDTIME [facility] Last Admin: 03/13/20 20:02 Dose: 10 mg Documented by: Ondansetron HCl (Zofran) 4 mg IVPUSH ONETIME ONE Stop: 03/06/20 16:03 Last Admin: 03/06/20 16:10 Dose: 4 mg Documented by: Pantoprazole Sodium (Protonix) 40 mg PO ACBREAKFAST [facility] Pantoprazole Sodium (Protonix Iv) 40 mg .XX ONETIME ONE Stop: 03/06/20 19:21 Last Admin: 03/06/20 21:37 Dose: Not Given Documented by: Pantoprazole Sodium (Protonix Iv) 40 mg IVPUSH ONETIME ONE Stop: 03/06/20 21:22 Last Admin: 03/06/20 21:33 Dose: 40 mg Documented by: Pantoprazole Sodium (Protonix) 40 mg PO DAILY@0800 [facility] Last Admin: 03/13/20 08:43 Dose: 40 mg Documented by: Potassium Chloride (Klor-Con M20) 20 meq PO DAILY [facility] Potassium Chloride (Klor-Con M20) 40 meq PO BID [facility] Stop: 03/08/20 09:01 Last Admin: 03/08/20 08:30 Dose: 40 meq Documented by: Potassium Chloride (Klor-Con M20) 40 meq PO BID [facility] Stop: 03/12/20 09:01 Last Admin: 03/12/20 08:04 Dose: 40 meq Documented by: Potassium Chloride (Klor-Con M20) 40 meq PO ONETIME ONE Stop: 03/12/20 10:35 Last Admin: 03/12/20 11:50 Dose: 40 meq Documented by: Thiamine HCl (Vitamin B-1) 100 mg IVPUSH ONETIME ONE Stop: 03/06/20 17:23 Last Admin: 03/06/20 17:39 Dose: 100 mg Documented by: Thiamine HCl (Vitamin B-1) 100 mg PO DAILY [facility] Stop: 03/12/20 09:01 Last Admin: 03/12/20 08:05 Dose: 100 mg Documented by: Topiramate (Topamax) 25 mg PO BID [facility] Topiramate (Topamax) 50 mg PO BEDTIME [facility] Last Admin: 03/13/20 20:03 Dose: 50 mg Documented by: - Exam Quality Assessment: Supplemental Oxygen (1L ), DVT Prophylaxis General: Alert, Cooperative, No Acute Distress, Sedated. No: Oriented HEENT: Pupils Equal, Pupils Reactive, Mucous Membr. Moist/[place] Neck: Supple, Trachea Midline Lungs: Normal Respiratory Effort, Decreased Breath Sounds, Rhonchi (right side ) Cardiovascular: Regular Rate, Regular Rhythm GI/Abdominal Exam: Normal Bowel Sounds, Soft, Non-Tender, No Distention (Female) Exam: Deferred Back Exam: Normal Inspection, Full Range of Motion Extremities: Normal Inspection, Normal Range of Motion, Non-Tender, Normal Capillary Refill, Other (Bilateral pedal and hand edema.) Skin: Warm, Dry, Intact, Ecchymosis (scattered ) Neurological: No New Focal Deficit Psy/Mental Status: Alert, Anxious, Depressed. No: Hallucinations Sepsis Event Note - Evaluation Sepsis Screening Result: Sepsis Risk - Focused Exam Vital Signs: Vital Signs Temp Temp Temp Pulse Resp BP BP 03/15/20 06:29 101.7 F H 20 96/57 L 03/15/20 06:11 102.9 F H 03/15/20 06:09 03/15/20 05:57 100.4 F 03/15/20 05:52 100.4 F 18 92/56 L 03/15/20 04:00 99 F 18 99/59 L 03/15/20 00:00 97.9 F 19 88/54 L 03/14/20 20:00 104 H 93/55 L 03/14/20 19:57 97.9 F 18 90/56 L Pulse Ox Pulse Ox 03/15/20 06:29 98 03/15/20 06:11 03/15/20 06:09 91 L 03/15/20 05:57 03/15/20 05:52 97 03/15/20 04:00 98 03/15/20 00:00 91 L 03/14/20 20:00 03/14/20 19:57 95 - Problem List & Annotations (1) Alcohol intoxication SNOMED Code(s): 28174722 Code(s): F10.129 - ALCOHOL ABUSE WITH INTOXICATION, UNSPECIFIED Status: Acute Priority: High Current Visit: Yes Qualifiers: Complication of substance-induced condition: with delirium Qualified Code(s): F10.921 - Alcohol use, unspecified with intoxication delirium (2) Hypocalcemia SNOMED Code(s): 0189476 Code(s): E83.51 - HYPOCALCEMIA Status: Acute Priority: High Current Visit: Yes (3) Hypokalemia SNOMED Code(s): 88170688 Code(s): E87.6 - HYPOKALEMIA Status: Acute Priority: High Current Visit: Yes (4) Hypomagnesemia SNOMED Code(s): 480013710 Code(s): E83.42 - HYPOMAGNESEMIA Status: Acute Priority: High Current Visit: Yes (5) Alcohol abuse with alcohol-induced anxiety disorder SNOMED Code(s): 33831055, 62315966 Code(s): F10.180 - ALCOHOL ABUSE WITH ALCOHOL-INDUCED ANXIETY DISORDER Status: Chronic Priority: High Current Visit: Yes (6) Alcohol dependence, binge pattern SNOMED Code(s): 639380975 Code(s): F10.20 - ALCOHOL DEPENDENCE, UNCOMPLICATED Status: Chronic Priority: High Current Visit: Yes (7) Leukocytosis SNOMED Code(s): 633566183, 070709705 Code(s): D72.829 - ELEVATED WHITE BLOOD CELL COUNT, UNSPECIFIED Status: Acute Priority: High Current Visit: Yes Qualifiers: Leukocytosis type: unspecified Qualified Code(s): D72.829 - Elevated white blood cell count, unspecified (8) Bipolar disorder SNOMED Code(s): 81104919 Code(s): F31.9 - BIPOLAR DISORDER, UNSPECIFIED Status: Chronic Priority: High Current Visit: Yes Qualifiers: Active/Remission status: remission status unspecified Qualified Code(s): F31.9 - Bipolar disorder, unspecified (9) Hypoglycemia SNOMED Code(s): 526598458 Code(s): E16.2 - HYPOGLYCEMIA, UNSPECIFIED Status: Acute Priority: High Current Visit: Yes (10) Alcohol withdrawal syndrome SNOMED Code(s): 018544414 Code(s): F10.239 - ALCOHOL DEPENDENCE WITH WITHDRAWAL, UNSPECIFIED Status: Acute Priority: High Current Visit: Yes Qualifiers: Complication of substance-induced condition: with delirium Qualified Code(s): F10.231 - Alcohol dependence with withdrawal delirium (11) Hypophosphatemia SNOMED Code(s): 2117281 Code(s): E83.39 - OTHER DISORDERS OF PHOSPHORUS METABOLISM Status: Acute Priority: High Current Visit: Yes (12) Hallucinations SNOMED Code(s): 0774433 Code(s): R44.3 - HALLUCINATIONS, UNSPECIFIED Status: Acute Priority: High Current Visit: Yes (13) Hypotension SNOMED Code(s): 13877041 Code(s): I95.9 - HYPOTENSION, UNSPECIFIED Status: Acute Priority: High Current Visit: Yes Qualifiers: Hypotension type: unspecified hypotension type Qualified Code(s): I95.9 - Hypotension, unspecified (14) Sepsis SNOMED Code(s): 84210519 Code(s): A41.9 - SEPSIS, UNSPECIFIED ORGANISM Status: Acute Priority: High Current Visit: Yes Qualifiers: Sepsis type: sepsis due to unspecified organism Sepsis acute organ dysfunction status: with acute organ dysfunction Severe sepsis acute organ dysfunction type: unspecified Severe sepsis shock status: with septic shock Qualified Code(s): A41.9 - Sepsis, unspecified organism; R65.21 - Severe sepsis with septic shock - Problem List Review Problem List Initiated/Reviewed/Updated: Yes - My Orders Last 24 Hours: My Active Orders 03/14/20 09:12 Up With Assistance [RC] ASDIRECTED 03/14/20 09:13 Up to Chair [RC] ASDIRECTED 03/14/20 10:41 Admission Status [Patient Status] [ADT] Routine 03/14/20 Lunch Regular Diet [DIET] 03/14/20 21:00 chlordiazePOXIDE [Librium] 25 mg PO BID - Plan Plan:: This is a 64 yo white female with past medical hx/o Impaired vision, hyper tension, hyperlipidemia, Asthma, GERD, Recurrent UTI, Chronic Headaches, Eating Disorder, Osteoporosis, Chronic ETOH Abuse/Use, Anxiety, Depression and Bipolar Disorder who was brought in to ED by EMS for evaluation of ETOH Intoxication. Assessment: Acute: ETOH Intoxication with CYNTHIA level of 0.50, known chronic alcoholic Acute on Chronic ETOH Abuse, carries a hx/o prolonged and hard detox Alcohol withdrawal syndrome with delirium, continues to improve Hypokalemia with K of 2.6-->2.7-->3.3-->3.9-->3.5-->3.4-->4.0-->3.8, persistent due to inadequate nutritional intake Hypomagnesemia with Mg of 1.7-->2.1-->1.6-->1.8-->1.7-->1.4-->1.4-->1.6, persistent due to inadequate nutritional intake Hypoalbuminemia with Albumin of 2.4-->2.0-->1.9-->1.8, persistent due to inadequate nutritional intake Hyperchloremia with Cl of 110 Hypoglycemia with blood glucose of 42, no diabetes history Generalized Weakness, mostly bedbound and poor nutritional intake Sepsis with unknown source Hypotension Resolved: Leukocytosis with WBC of 15.31-->16.30-->6.73, resolved Thrombocytosis, might be pseudo Elevated AG of 17.6-->21.7-->15.3-->14.9, resolved Elevated AST of 60-->63-->46-->28, resolved Elevated Alk Phos fo 155-->125-->122-->112, resolved Mild Rhabdomyolysis with CK of 647-->703-->312-->186, resolved Hypophosphatemia with phosphorous of 1.4--> now 4, resolved Thrombocytopenia with Platelet of 136K-->223k, resolved Chronic: Impaired vision, hypertension, hyperlipidemia, Asthma, GERD, Recurrent UTI, Chronic Headaches, Eating Disorder, Osteoporosis, Chronic ETOH Abuse/Use, Anxiety, Depression and Bipolar Disorder who was brought to ED by EMS for evaluation of ETOH Intoxication. Plan: Start IV Rocephin. CIWAA protocol. Metoprolol PO for Tachycardia. Daily 25 mg BID metoprolol. Repeat AM labs. IV fluids ordered. Continue Librium at 25 mg BID. PRN anti-emetic agents. Supplement magnesium. Potassium 10 mg po daily. Regular diet but monitor. Seizure precautions. CM/SW consultation. Dr. Torres, psychiatry consultation with medication changes as recommended. Await blood cultures. DVT/GI prophylaxis. Code status is full. Downgrade to M/S/P status. LOS >96 Hrs due to severe detox and generalized weakness.
[2020-03-15] MEDS ORDERED: Lactated Ringers 500 ML IV ONE (08:00)
[2020-03-15] MEDS: Potassium Chloride 10 MEQ Tab.ER PO SCH (08:05)
[2020-03-15] MEDS: Magnesium Oxide 400 MG Tab PO SCH ×2 (08:05→21:47)
[2020-03-15] MEDS: Sucralfate 1 GM Tab PO SCH ×4 (08:06→21:47)
[2020-03-15] MEDS: chlordiazePOXIDE 25 MG Cap PO SCH ×2 (08:06→21:48)
[2020-03-15] MEDS: Losartan 25 MG Tab PO SCH (08:06)
[2020-03-15] MEDS: Metoprolol Tartrate 25 MG Tab PO SCH ×2 (08:07→21:48)
[2020-03-15 08:20] LABS: CORONAVIRUS COVID-19 NAA NEGATIVE (NEGATIVE)
--- NOTE | 2020-03-15 08:25 | CR ---
Chest: Portable view of the chest was obtained. Comparison: Prior chest x-ray 02/14/20. Findings: Better aeration of the right lung base is seen from prior exam. Slight atelectasis is seen within the left retrocardiac region. Lungs otherwise are clear. Bony structures are grossly intact. Previous right and left shoulder surgery is seen. Scoliosis is noted within the spine. Heart size and mediastinum are normal. Impression: 1. Improved aeration of the right lung base from prior study. 2. Slight area of atelectasis within the left lung base. 3. Other findings which appear stable as noted above. Diagnostic code #2
[2020-03-15] MEDS ORDERED: Magnesium Sulfate/Water 4 GM in Premix Bag 1 BAG IV ONE (09:00)
[2020-03-15] MEDS: cefTRIAXone 2 GM in Sodium Chloride 0.9% 100 ML IV SCH (09:39)
[2020-03-15] MEDS: Lactated Ringers 1,000 ML IV SCH (10:01)
[2020-03-15] MEDS: Sodium Chloride 0.9% 1,000 ML IV SCH ×2 (11:54→19:42)
[2020-03-15] MEDS: Formoterol/Mometasone 200-5 MCG 8.8 GM Inhaler IH SCH ×2 (14:11→20:38)
[2020-03-15] MEDS: chlorproMAZINE 25 MG Tab PO SCH (18:57)
[2020-03-15] MEDS: fluvoxaMINE 100 MG Tab PO SCH (18:58)
[2020-03-15] MEDS: Topiramate 25 MG Tab PO SCH (21:47)
[2020-03-15] MEDS: Montelukast 10 MG Tab PO SCH (21:48)
[2020-03-15] MEDS: LORazepam 2 MG/ML SDV IVPUSH PRN (22:20)
[2020-03-16] MEDS: Sodium Chloride 0.9% 1,000 ML IV SCH (02:10)
--- NOTE | 2020-03-16 07:16 | PCM.PN ---
- General Info Date of Service: 03/16/20 Admission Dx/Problem (Free Text): ETOH Abuse Subjective Update: In to see "Gadiel." She is doing much better today and is able to carry on a conversation. She reports she felt like she was "wrung out" last night. Sepsis work-up has been grossly negative thus far. We are waiting on blood cultures. She denies any pain or infectious symptoms. Will decrease Librium dosing and lengthen time between CIWA scores. Hopeful for discharge this coming Saturday if she continues to improve and no further infectious sources are found. Functional Status: Reports: Pain Controlled, Tolerating Diet, Ambulating, Urinating, Incentive Spirometry. Denies: New Symptoms - Review of Systems General: Reports: No Symptoms, Weakness. Denies: Fever, Fatigue, Malaise, Chills HEENT: Reports: No Symptoms. Denies: Headaches, Sore Throat Pulmonary: Reports: Shortness of Breath, Cough. Denies: Sputum, Wheezing Cardiovascular: Reports: Edema. Denies: Chest Pain, Palpitations Gastrointestinal: Reports: No Symptoms. Denies: Abdominal Pain, Constipation, Diarrhea, Nausea, Vomiting Genitourinary: Reports: No Symptoms. Denies: Pain Musculoskeletal: Reports: No Symptoms Skin: Reports: No Symptoms. Denies: Cyanosis Neurological: Reports: Confusion, Difficulty Walking, Weakness, Gait Disturbance. Denies: Dizziness, Headache, Numbness, Seizure, Tingling Psychiatric: Reports: No Symptoms - Patient Data Vitals - Most Recent: Last Vital Signs Temp 96.9 F 03/16/20 04:00 Pulse 85 03/15/20 21:48 Resp 18 03/16/20 04:00 BP 118/84 03/16/20 04:00 Pulse Ox 96 03/16/20 04:00 Weight - Most Recent: 133 lb 1.6 oz I&O - Last 24 Hours: Intake & Output 03/15/20 03/16/20 03/16/20 22:59 06:59 14:59 Intake Total 3482 2613 Output Total 442 800 Balance 2532 1813 Lab Results Last 24 Hours: Laboratory Results - last 24 hr 03/15/20 03/15/20 03/15/20 Range/Units 05:46 05:46 07:00 WBC (3.98-10.04) K/mm3 RBC (3.98-5.22) M/mm3 Hgb (11.2-15.7) gm/dl Hct (34.1-44.9) % MCV (79.4-94.8) fl MCH (25.6-32.2) pg MCHC (32.2-35.5) g/dl RDW Std Deviation (36.4-46.3) fL Plt Count (182-369) K/mm3 MPV (9.4-12.3) fl Neut % (Auto) (34.0-71.1) % Lymph % (Auto) (19.3-51.7) % [place] % (Auto) (4.7-12.5) % Eos % (Auto) (0.7-5.8) Baso % (Auto) (0.1-1.2) % Neut # (Auto) (1.56-6.13) K/mm3 Lymph # (Auto) (1.18-3.74) K/mm3 [place] # (Auto) (0.24-0.36) K/mm3 Eos # (Auto) (0.04-0.36) K/mm3 Baso # (Auto) (0.01-0.08) K/mm3 Manual Slide Review Abnormal smear D-Dimer, Quantitative (0.19-0.50) mg/L Sodium (136-145) mEq/L Potassium (3.5-5.1) mEq/L Chloride (98-107) mEq/L Carbon Dioxide (21-32) mEq/L Anion Gap (5-15) BUN (7-18) mg/dL Creatinine (0.55-1.02) mg/dL Est Cr Clr Drug Dosing mL/min Estimated GFR (MDRD) (>60) mL/min BUN/Creatinine Ratio (14-18) Glucose (80-115) mg/dL Lactic Acid 0.7 (0.4-2.0) mmol/L Calcium (8.5-10.1) mg/dL Magnesium (1.8-2.4) mg/dl Total Bilirubin (0.2-1.0) mg/dL AST (15-37) U/L ALT (14-59) U/L Alkaline Phosphatase (46-116) U/L Total Protein (6.4-8.2) g/dl Albumin (3.4-5.0) g/dl Globulin gm/dL Albumin/Globulin Ratio (1-2) Procalcitonin <0.05 ng/mL Urine Color (Yellow) Urine Appearance (Clear) Urine pH (5.0-8.0) Ur Specific [place] (1.005-1.030) Urine Protein (Negative) Urine Glucose (UA) (Negative) Urine Ketones (Negative) Urine Occult Blood (Negative) Urine Nitrite (Negative) Urine Bilirubin (Negative) Urine Urobilinogen (0.2-1.0) Ur Leukocyte Esterase (Negative) Urine RBC (0-5) /hpf Urine WBC (0-5) /hpf Ur Epithelial Cells (0-5) /hpf Urine Bacteria (FEW) /hpf Urine Mucus (FEW) /hpf Influenza Type A RNA (NEGATIVE) Influenza Type B RNA (NEGATIVE) SARS-CoV-2 RNA (DODIE) (NEGATIVE) 03/15/20 03/15/20 03/15/20 Range/Units 07:35 09:24 13:20 WBC (3.98-10.04) K/mm3 RBC (3.98-5.22) M/mm3 Hgb (11.2-15.7) gm/dl Hct (34.1-44.9) % MCV (79.4-94.8) fl MCH (25.6-32.2) pg MCHC (32.2-35.5) g/dl RDW Std Deviation (36.4-46.3) fL Plt Count (182-369) K/mm3 MPV (9.4-12.3) fl Neut % (Auto) (34.0-71.1) % Lymph % (Auto) (19.3-51.7) % Butler % (Auto) (4.7-12.5) % Eos % (Auto) (0.7-5.8) Baso % (Auto) (0.1-1.2) % Neut # (Auto) (1.56-6.13) K/mm3 Lymph # (Auto) (1.18-3.74) K/mm3 [place] # (Auto) (0.24-0.36) K/mm3 Eos # (Auto) (0.04-0.36) K/mm3 Baso # (Auto) (0.01-0.08) K/mm3 Manual Slide Review D-Dimer, Quantitative 0.84 H (0.19-0.50) mg/L Sodium (136-145) mEq/L Potassium (3.5-5.1) mEq/L Chloride (98-107) mEq/L Carbon Dioxide (21-32) mEq/L Anion Gap (5-15) BUN (7-18) mg/dL Creatinine (0.55-1.02) mg/dL Est Cr Clr Drug Dosing mL/min Estimated GFR (MDRD) (>60) mL/min BUN/Creatinine Ratio (14-18) Glucose (80-115) mg/dL Lactic Acid (0.4-2.0) mmol/L Calcium (8.5-10.1) mg/dL Magnesium (1.8-2.4) mg/dl Total Bilirubin (0.2-1.0) mg/dL AST (15-37) U/L ALT (14-59) U/L Alkaline Phosphatase (46-116) U/L Total Protein (6.4-8.2) g/dl Albumin (3.4-5.0) g/dl Globulin gm/dL Albumin/Globulin Ratio (1-2) Procalcitonin ng/mL Urine Color Yellow (Yellow) Urine Appearance Clear (Clear) Urine pH 7.5 (5.0-8.0) Ur Specific [place] 1.025 (1.005-1.030) Urine Protein Negative (Negative) Urine Glucose (UA) Negative (Negative) Urine Ketones Negative (Negative) Urine Occult Blood Negative (Negative) Urine Nitrite Negative (Negative) Urine Bilirubin Negative (Negative) Urine Urobilinogen 0.2 (0.2-1.0) Ur Leukocyte Esterase Negative (Negative) Urine RBC 0-5 (0-5) /hpf Urine WBC 0-5 (0-5) /hpf Ur Epithelial Cells 0-5 (0-5) /hpf Urine Bacteria Few (FEW) /hpf Urine Mucus Not seen (FEW) /hpf Influenza Type A RNA Negative (NEGATIVE) Influenza Type B RNA Negative (NEGATIVE) SARS-CoV-2 RNA (DODIE) Negative (NEGATIVE) 03/16/20 03/16/20 Range/Units 04:20 04:20 WBC 4.87 (3.98-10.04) K/mm3 RBC 3.23 L (3.98-5.22) M/mm3 Hgb 9.2 L (11.2-15.7) gm/dl Hct 31.2 L (34.1-44.9) % MCV 96.6 H (79.4-94.8) fl MCH 28.5 (25.6-32.2) pg MCHC 29.5 L (32.2-35.5) g/dl RDW Std Deviation 54.2 H (36.4-46.3) fL Plt Count 215 (182-369) K/mm3 MPV 10.0 (9.4-12.3) fl Neut % (Auto) 54.0 (34.0-71.1) % Lymph % (Auto) 17.7 L (19.3-51.7) % Butler % (Auto) 14.6 H (4.7-12.5) % Eos % (Auto) 12.5 H (0.7-5.8) Baso % (Auto) 0.2 (0.1-1.2) % Neut # (Auto) 2.63 (1.56-6.13) K/mm3 Lymph # (Auto) 0.86 L (1.18-3.74) K/mm3 Butler # (Auto) 0.71 H (0.24-0.36) K/mm3 Eos # (Auto) 0.61 H (0.04-0.36) K/mm3 Baso # (Auto) 0.01 (0.01-0.08) K/mm3 Manual Slide Review Abnormal smear D-Dimer, Quantitative (0.19-0.50) mg/L Sodium 144 (136-145) mEq/L Potassium 3.8 (3.5-5.1) mEq/L Chloride 111 H (98-107) mEq/L Carbon Dioxide 24 (21-32) mEq/L Anion Gap 12.8 (5-15) BUN 13 (7-18) mg/dL Creatinine 0.5 L (0.55-1.02) mg/dL Est Cr Clr Drug Dosing 109.21 mL/min Estimated GFR (MDRD) > 60 (>60) mL/min BUN/Creatinine Ratio 26.0 H (14-18) Glucose 93 (80-115) mg/dL Lactic Acid (0.4-2.0) mmol/L Calcium 8.4 L (8.5-10.1) mg/dL Magnesium 1.8 (1.8-2.4) mg/dl Total Bilirubin 0.1 L (0.2-1.0) mg/dL AST 13 L (15-37) U/L ALT 14 (14-59) U/L Alkaline Phosphatase 75 (46-116) U/L Total Protein 5.0 L (6.4-8.2) g/dl Albumin 2.0 L (3.4-5.0) g/dl Globulin 3.0 gm/dL Albumin/Globulin Ratio 0.7 L (1-2) Procalcitonin ng/mL Urine Color (Yellow) Urine Appearance (Clear) Urine pH (5.0-8.0) Ur Specific [place] (1.005-1.030) Urine Protein (Negative) Urine Glucose (UA) (Negative) Urine Ketones (Negative) Urine Occult Blood (Negative) Urine Nitrite (Negative) Urine Bilirubin (Negative) Urine Urobilinogen (0.2-1.0) Ur Leukocyte Esterase (Negative) Urine RBC (0-5) /hpf Urine WBC (0-5) /hpf Ur Epithelial Cells (0-5) /hpf Urine Bacteria (FEW) /hpf Urine Mucus (FEW) /hpf Influenza Type A RNA (NEGATIVE) Influenza Type B RNA (NEGATIVE) SARS-CoV-2 RNA (DODIE) (NEGATIVE) Chance Results Last 24 Hours: Microbiology 03/15/20 07:00 Aerobic Blood Culture - Preliminary Blood - Venous - Lab Draw NO GROWTH AFTER 1 DAY Anaerobic Blood Culture - Preliminary NO GROWTH AFTER 1 DAY 03/15/20 06:28 Aerobic Blood Culture - Preliminary Blood - Venous NO GROWTH AFTER 1 DAY Anaerobic Blood Culture - Preliminary NO GROWTH AFTER 1 DAY Med Orders - Current: Current Medications Acetaminophen (Tylenol) 650 mg PO Q4H PRN PRN Reason: Fever Last Admin: 03/15/20 05:57 Dose: 650 mg Documented by: Al Hydroxide/Mg Hydroxide (Mag-Al Plus) 30 ml PO Q4H PRN PRN Reason: Heartburn Last Admin: 03/12/20 01:40 Dose: 30 ml Documented by: Albuterol/Ipratropium (Duoneb 3.0-0.5 Mg/3 Ml) 3 ml NEB Q4H PRN PRN Reason: Shortness Of Breath/wheezing Chlordiazepoxide HCl (Librium) 25 mg PO BID [facility] Last Admin: 03/15/20 21:48 Dose: 25 mg Documented by: Chlorpromazine HCl (Thorazine) 50 mg PO QPM [facility] Last Admin: 03/15/20 18:57 Dose: 50 mg Documented by: Clonidine HCl (Catapres) 0.1 mg PO Q4H PRN PRN Reason: Agitation Last Admin: 03/10/20 13:11 Dose: 0.1 mg Documented by: Docusate Sodium (Colace) 100 mg PO BID PRN PRN Reason: Constipation Fluvoxamine Maleate (Luvox) 50 mg PO QPM [facility] Last Admin: 03/15/20 18:58 Dose: 50 mg Documented by: Haloperidol Lactate (Haldol) 2 mg IM Q4H PRN PRN Reason: Agitation Last Admin: 03/10/20 23:13 Dose: 2 mg Documented by: Hydralazine HCl (Apresoline) 20 mg IVPUSH Q4H PRN PRN Reason: Hypertension Promethazine HCl 12.5 mg/ (Sodium Chloride) 50.5 mls @ 100 mls/hr IV Q6H PRN PRN Reason: Nausea/Vomiting Last Admin: 03/06/20 23:44 Dose: 100 mls/hr Documented by: Lactated Ringer's (Ringers, Lactated) 1,000 mls @ 150 mls/hr IV ASDIRECTED [facility] Last Admin: 03/15/20 10:01 Dose: 999 mls/hr Documented by: Ceftriaxone Sodium 2 gm/ (Sodium Chloride) 100 mls @ 200 mls/hr IV Q24H [facility] Last Admin: 03/15/20 09:39 Dose: 200 mls/hr Documented by: Sodium Chloride (Normal Saline) 1,000 mls @ 175 mls/hr IV ASDIRECTED [facility] Last Admin: 03/16/20 02:10 Dose: 175 mls/hr Documented by: Lorazepam (Ativan) 1 - 3 mg IVPUSH Q1H PRN; Protocol PRN Reason: Withdrawal Symptoms Last Admin: 03/15/20 22:20 Dose: 1 mg Documented by: Losartan Potassium (Cozaar) 12.5 mg PO DAILY [facility] Last Admin: 03/15/20 08:06 Dose: Not Given Documented by: Magnesium Oxide (Magnesium Oxide) 800 mg PO BID [facility] Last Admin: 03/15/20 21:47 Dose: 800 mg Documented by: Metoprolol Tartrate (Lopressor) 25 mg PO Q6H PRN PRN Reason: See Label Comment Last Admin: 03/07/20 08:30 Dose: 25 mg Documented by: Metoprolol Tartrate (Lopressor) 25 mg PO Q12H [facility] Last Admin: 03/15/20 21:48 Dose: 25 mg Documented by: Mometasone Furoate/Formoterol Fumar (Dulera 200-5 Mcg) 2 puff IH BID [facility] Last Admin: 03/15/20 20:38 Dose: 2 puff Documented by: Montelukast Sodium (Singulair) 10 mg PO BEDTIME [facility] Last Admin: 03/15/20 21:48 Dose: 10 mg Documented by: Ondansetron HCl (Zofran) 4 mg IV Q6H PRN PRN Reason: Nausea/Vomiting Last Admin: 03/08/20 23:15 Dose: 4 mg Documented by: Polyethylene Glycol (Miralax) 17 gm PO DAILY PRN PRN Reason: Constipation Potassium Chloride (Klor-Con 10) 10 meq PO DAILY [facility] Last Admin: 03/15/20 08:05 Dose: 10 meq Documented by: Sodium Chloride (Saline Flush) 10 ml FLUSH ASDIRECTED PRN PRN Reason: Keep Vein Open Last Admin: 03/06/20 16:10 Dose: 10 ml Documented by: Sucralfate (Carafate) 1 gm PO QID [facility] Last Admin: 03/15/20 21:47 Dose: 1 gm Documented by: Topiramate (Topamax) 75 mg PO BEDTIME [facility] Last Admin: 03/15/20 21:47 Dose: 75 mg Documented by: Discontinued Medications Atenolol (Tenormin) 25 mg PO QAM [facility] Last Admin: 03/07/20 08:00 Dose: 25 mg Documented by: Chlordiazepoxide HCl (Librium) 50 mg PO BID [facility] Last Admin: 03/14/20 08:47 Dose: 50 mg Documented by: Diphenhydramine HCl (Benadryl) 50 mg IVPUSH ONETIME ONE Stop: 03/06/20 19:32 Last Admin: 03/06/20 20:00 Dose: 50 mg Documented by: Duloxetine HCl (Cymbalta) 30 mg PO DAILY [facility] Last Admin: 03/14/20 08:46 Dose: 30 mg Documented by: Folic Acid (Folic Acid) 1 mg PO DAILY [facility] Stop: 03/09/20 09:01 Last Admin: 03/09/20 08:09 Dose: 1 mg Documented by: Lactated Ringer's (Ringers, Lactated) 1,000 mls @ 500 mls/hr IV .BOLUS [facility] Last Admin: 03/06/20 16:10 Dose: 500 mls/hr Documented by: Potassium Chloride 10 meq/ (Premix) 100 mls @ 100 mls/hr IV Q1H [facility] Stop: 03/06/20 21:14 Last Admin: 03/06/20 21:34 Dose: 100 mls/hr Documented by: Magnesium Sulfate 4 gm/ Premix 50 mls @ 12.5 mls/hr IV ONETIME ONE Stop: 03/06/20 21:15 Last Admin: 03/06/20 20:06 Dose: 12.5 mls/hr Documented by: Lidocaine HCl (Xylocaine-Mpf 1%) Confirm Administered Dose 4 mls @ as directed .ROUTE .STK-MED ONE Stop: 03/06/20 18:39 Sodium Chloride (Normal Saline) 1,000 mls @ 50 mls/hr IV ASDIRECTED [facility] Stop: 03/07/20 15:44 Last Admin: 03/06/20 19:56 Dose: 50 mls/hr Documented by: Potassium Chloride 10 meq/ (Premix) 100 mls @ 100 mls/hr IV Q1H [facility] Stop: 03/07/20 10:14 Last Admin: 03/07/20 09:41 Dose: 100 mls/hr Documented by: Dextrose/Lactated Ringer's (Dextrose 5%-Lactated Ringers) 1,000 mls @ 125 mls/hr IV ASDIRECTED [facility] Last Admin: 03/07/20 13:12 Dose: 125 mls/hr Documented by: Lactated Ringer's (Ringers, Lactated) 1,000 mls @ 125 mls/hr IV ASDIRECTED [facility] Lactated Ringer's (Ringers, Lactated) 1,000 mls @ 75 mls/hr IV ASDIRECTED [facility] Last Admin: 03/07/20 21:05 Dose: 75 mls/hr Documented by: Magnesium Sulfate 4 gm/ Premix 50 mls @ 12.5 mls/hr IV ONETIME ONE Stop: 03/08/20 11:59 Last Admin: 03/08/20 08:35 Dose: 12.5 mls/hr Documented by: Potassium Phosphate 30 mmole/ (Sodium Chloride) 510 mls @ 102 mls/hr IV ONETIME ONE Stop: 03/08/20 16:59 Last Admin: 03/08/20 12:34 Dose: 102 mls/hr Documented by: Lactated Ringer's (Ringers, Lactated) 1,000 mls @ 125 mls/hr IV ASDIRECTED [facility] Last Admin: 03/10/20 09:50 Dose: 125 mls/hr Documented by: Magnesium Sulfate 4 gm/ Premix 50 mls @ 12.5 mls/hr IV ONETIME ONE Stop: 03/09/20 11:59 Last Admin: 03/09/20 08:18 Dose: 12.5 mls/hr Documented by: Lactated Ringer's (Ringers, Lactated) 1,000 mls @ 75 mls/hr IV ASDIRECTED [facility] Last Admin: 03/11/20 09:40 Dose: 75 mls/hr Documented by: Magnesium Sulfate 4 gm/ Premix 50 mls @ 12.5 mls/hr IV ONETIME ONE Stop: 03/11/20 11:29 Last Admin: 03/11/20 08:30 Dose: 12.5 mls/hr Documented by: Magnesium Sulfate (Magnesium Sulfate In Water Premix) 2 gm in 50 mls @ 25 mls/hr IV ONETIME ONE Stop: 03/11/20 13:59 Last Admin: 03/11/20 12:19 Dose: 25 mls/hr Documented by: Magnesium Sulfate 4 gm/ Premix 50 mls @ 12.5 mls/hr IV ONETIME ONE Stop: 03/14/20 12:59 Last Admin: 03/14/20 11:06 Dose: 12.5 mls/hr Documented by: Ceftriaxone Sodium 2 gm/ (Sodium Chloride) 100 mls @ 200 mls/hr IV Q24H [facility] Last Admin: 03/15/20 08:30 Dose: 200 mls/hr Documented by: Lactated Ringer's (Ringers, Lactated) 500 mls @ 999 mls/hr IV .BOLUS ONE Stop: 03/15/20 08:30 Last Admin: 03/15/20 07:59 Dose: 999 mls/hr Documented by: Magnesium Sulfate 4 gm/ Premix 50 mls @ 12.5 mls/hr IV ONETIME ONE Stop: 03/15/20 12:59 Last Admin: 03/15/20 08:55 Dose: 12.5 mls/hr Documented by: Lorazepam (Ativan) 1 mg PO ONETIME PRN PRN Reason: Anxiety Last Admin: 03/14/20 11:14 Dose: 1 mg Documented by: Magnesium Oxide (Magnesium Oxide) 200 mg PO DAILY [facility] Last Admin: 03/09/20 08:08 Dose: 200 mg Documented by: Magnesium Oxide (Magnesium Oxide) 400 mg PO BID [facility] Last Admin: 03/12/20 08:04 Dose: 400 mg Documented by: Metoprolol Tartrate (Lopressor) 5 mg IVPUSH ONETIME ONE Stop: 03/07/20 13:00 Last Admin: 03/07/20 13:05 Dose: 5 mg Documented by: Metoprolol Tartrate (Lopressor) 25 mg PO ONETIME ONE Stop: 03/07/20 13:02 Last Admin: 03/07/20 13:12 Dose: 25 mg Documented by: Metoprolol Tartrate (Lopressor) Confirm Administered Dose 5 mg .ROUTE .STK-MED ONE Stop: 03/07/20 13:03 Last Admin: 03/07/20 13:09 Dose: Not Given Documented by: Multivitamins (Thera) 1 each PO DAILY [facility] Stop: 03/11/20 09:01 Last Admin: 03/11/20 09:35 Dose: 1 each Documented by: Olanzapine (Zyprexa) 10 mg PO BEDTIME [facility] Last Admin: 03/13/20 20:02 Dose: 10 mg Documented by: Ondansetron HCl (Zofran) 4 mg IVPUSH ONETIME ONE Stop: 03/06/20 16:03 Last Admin: 03/06/20 16:10 Dose: 4 mg Documented by: Pantoprazole Sodium (Protonix) 40 mg PO ACBREAKFAST [facility] Pantoprazole Sodium (Protonix Iv) 40 mg .XX ONETIME ONE Stop: 03/06/20 19:21 Last Admin: 03/06/20 21:37 Dose: Not Given Documented by: Pantoprazole Sodium (Protonix Iv) 40 mg IVPUSH ONETIME ONE Stop: 03/06/20 21:22 Last Admin: 03/06/20 21:33 Dose: 40 mg Documented by: Pantoprazole Sodium (Protonix) 40 mg PO DAILY@0800 [facility] Last Admin: 03/13/20 08:43 Dose: 40 mg Documented by: Potassium Chloride (Klor-Con M20) 20 meq PO DAILY [facility] Potassium Chloride (Klor-Con M20) 40 meq PO BID [facility] Stop: 03/08/20 09:01 Last Admin: 03/08/20 08:30 Dose: 40 meq Documented by: Potassium Chloride (Klor-Con M20) 40 meq PO BID [facility] Stop: 03/12/20 09:01 Last Admin: 03/12/20 08:04 Dose: 40 meq Documented by: Potassium Chloride (Klor-Con M20) 40 meq PO ONETIME ONE Stop: 03/12/20 10:35 Last Admin: 03/12/20 11:50 Dose: 40 meq Documented by: Thiamine HCl (Vitamin B-1) 100 mg IVPUSH ONETIME ONE Stop: 03/06/20 17:23 Last Admin: 03/06/20 17:39 Dose: 100 mg Documented by: Thiamine HCl (Vitamin B-1) 100 mg PO DAILY [facility] Stop: 03/12/20 09:01 Last Admin: 03/12/20 08:05 Dose: 100 mg Documented by: Topiramate (Topamax) 25 mg PO BID [facility] Topiramate (Topamax) 50 mg PO BEDTIME [facility] Last Admin: 03/13/20 20:03 Dose: 50 mg Documented by: - Exam Quality Assessment: DVT Prophylaxis. No: Supplemental Oxygen General: Alert, Cooperative, No Acute Distress. No: Oriented HEENT: Pupils Equal, Pupils Reactive, Mucous Membr. Moist/[place] Neck: Supple, Trachea Midline Lungs: Normal Respiratory Effort, Decreased Breath Sounds, Rhonchi (right lower lobe) Cardiovascular: Regular Rate, Regular Rhythm GI/Abdominal Exam: Normal Bowel Sounds, Soft, Non-Tender, No Distention (Female) Exam: Deferred Back Exam: Normal Inspection, Full Range of Motion Extremities: Normal Inspection, Normal Range of Motion, Non-Tender, Normal Capillary Refill, Pedal Edema Skin: Warm, Dry, Intact Neurological: No New Focal Deficit Psy/Mental Status: Alert, Labile Mood, Anxious, Depressed. No: Hallucinations, Withdrawal Symptoms Sepsis Event Note - Evaluation Sepsis Screening Result: No Definite Risk - Focused Exam Vital Signs: Vital Signs Temp Pulse Resp BP BP Pulse Ox Pulse Ox 03/16/20 04:00 96.9 F 18 118/84 96 03/16/20 00:00 97 F 19 93/71 94 L 03/15/20 21:48 85 113/71 03/15/20 20:40 100 03/15/20 20:00 97.2 F 18 122/75 99 - Problem List & Annotations (1) Alcohol intoxication SNOMED Code(s): 39948221 Code(s): F10.129 - ALCOHOL ABUSE WITH INTOXICATION, UNSPECIFIED Status: Acute Priority: High Current Visit: Yes Qualifiers: Complication of substance-induced condition: with delirium Qualified Code(s): F10.921 - Alcohol use, unspecified with intoxication delirium (2) Hypocalcemia SNOMED Code(s): 8894991 Code(s): E83.51 - HYPOCALCEMIA Status: Acute Priority: High Current Visit: Yes (3) Hypokalemia SNOMED Code(s): 65169150 Code(s): E87.6 - HYPOKALEMIA Status: Acute Priority: High Current Visit: Yes (4) Hypomagnesemia SNOMED Code(s): 747561753 Code(s): E83.42 - HYPOMAGNESEMIA Status: Acute Priority: High Current Visit: Yes (5) Alcohol abuse with alcohol-induced anxiety disorder SNOMED Code(s): 37453157, 93385929 Code(s): F10.180 - ALCOHOL ABUSE WITH ALCOHOL-INDUCED ANXIETY DISORDER Status: Chronic Priority: High Current Visit: Yes (6) Alcohol dependence, binge pattern SNOMED Code(s): 432646175 Code(s): F10.20 - ALCOHOL DEPENDENCE, UNCOMPLICATED Status: Chronic Priority: High Current Visit: Yes (7) Leukocytosis SNOMED Code(s): 441212230, 164802536 Code(s): D72.829 - ELEVATED WHITE BLOOD CELL COUNT, UNSPECIFIED Status: Acute Priority: High Current Visit: Yes Qualifiers: Leukocytosis type: unspecified Qualified Code(s): D72.829 - Elevated white blood cell count, unspecified (8) Bipolar disorder SNOMED Code(s): 70967264 Code(s): F31.9 - BIPOLAR DISORDER, UNSPECIFIED Status: Chronic Priority: High Current Visit: Yes Qualifiers: Active/Remission status: remission status unspecified Qualified Code(s): F31.9 - Bipolar disorder, unspecified (9) Hypoglycemia SNOMED Code(s): 035359896 Code(s): E16.2 - HYPOGLYCEMIA, UNSPECIFIED Status: Acute Priority: High Current Visit: Yes (10) Alcohol withdrawal syndrome SNOMED Code(s): 731543365 Code(s): F10.239 - ALCOHOL DEPENDENCE WITH WITHDRAWAL, UNSPECIFIED Status: Acute Priority: High Current Visit: Yes Qualifiers: Complication of substance-induced condition: with delirium Qualified Code(s): F10.231 - Alcohol dependence with withdrawal delirium (11) Hypophosphatemia SNOMED Code(s): 6434085 Code(s): E83.39 - OTHER DISORDERS OF PHOSPHORUS METABOLISM Status: Acute Priority: High Current Visit: Yes (12) Hallucinations SNOMED Code(s): 0279192 Code(s): R44.3 - HALLUCINATIONS, UNSPECIFIED Status: Acute Priority: High Current Visit: Yes (13) Hypotension SNOMED Code(s): 43284243 Code(s): I95.9 - HYPOTENSION, UNSPECIFIED Status: Acute Priority: High Current Visit: Yes Qualifiers: Hypotension type: unspecified hypotension type Qualified Code(s): I95.9 - Hypotension, unspecified (14) Sepsis SNOMED Code(s): 76369447 Code(s): A41.9 - SEPSIS, UNSPECIFIED ORGANISM Status: Acute Priority: High Current Visit: Yes Qualifiers: Sepsis type: sepsis due to unspecified organism Sepsis acute organ dysfu nction status: with acute organ dysfunction Severe sepsis acute organ dysfunction type: unspecified Severe sepsis shock status: with septic shock Qualified Code(s): A41.9 - Sepsis, unspecified organism; R65.21 - Severe sepsis with septic shock - Problem List Review Problem List Initiated/Reviewed/Updated: Yes - My Orders Last 24 Hours: My Active Orders 03/15/20 08:43 Severe Sepsis Onset Time [OM.PC] Stat 03/15/20 08:45 Lactated Ringers [Ringers, Lactated] 1,000 ml IV ASDIRECTED 03/15/20 10:21 RT Incentive Spirometry [RC] ASDIRECTED 03/15/20 11:30 Sodium Chloride 0.9% [Normal Saline] 1,000 ml IV ASDIRECTED 03/17/20 05:11 CBC WITH AUTO DIFF [HEME] AM CMP [COMPREHENSIVE METABOLIC PN,CMP] [CHEM] AM 03/18/20 05:11 CBC WITH AUTO DIFF [HEME] AM CMP [COMPREHENSIVE METABOLIC PN,CMP] [CHEM] AM 03/19/20 05:11 CBC WITH AUTO DIFF [HEME] AM CMP [COMPREHENSIVE METABOLIC PN,CMP] [CHEM] AM - Plan Plan:: This is a 64 yo white female with past medical hx/o Impaired vision, hypertension, hyperlipidemia, Asthma, GERD, Recurrent UTI, Chronic Headaches, Eating Disorder, Osteoporosis, Chronic ETOH Abuse/Use, Anxiety, Depression and Bipolar Disorder who was brought in to ED by EMS for evaluation of ETOH Intoxication. Assessment: Acute: ETOH Intoxication with CYNTHIA level of 0.50, known chronic alcoholic Acute on Chronic ETOH Abuse, carries a hx/o prolonged and hard detox Alcohol withdrawal syndrome with delirium, continues to improve Hypokalemia with K of 2.6-->2.7-->3.3-->3.9-->3.5-->3.4-->4.0-->3.8, persistent due to inadequate nutritional intake Hypomagnesemia with Mg of 1.7-->2.1-->1.6-->1.8-->1.7-->1.4-->1.4-->1.6, persistent due to inadequate nutritional intake Hypoalbuminemia with Albumin of 2.4-->2.0-->1.9-->1.8, persistent due to inadequate nutritional intake Hyperchloremia with Cl of 110 Hypoglycemia with blood glucose of 42, no diabetes history Generalized Weakness, mostly bedbound and poor nutritional intake Sepsis with unknown source Hypotension Resolved: Leukocytosis with WBC of 15.31-->16.30-->6.73, resolved Thrombocytosis, might be pseudo Elevated AG of 17.6-->21.7-->15.3-->14.9, resolved Elevated AST of 60-->63-->46-->28, resolved Elevated Alk Phos fo 155-->125-->122-->112, resolved Mild Rhabdomyolysis with CK of 647-->703-->312-->186, resolved Hypophosphatemia with phosphorous of 1.4--> now 4, resolved Thrombocytopenia with Platelet of 136K-->223k, resolved Chronic: Impaired vision, hypertension, hyperlipidemia, Asthma, GERD, Recurrent UTI, Chronic Headaches, Eating Disorder, Osteoporosis, Chronic ETOH Abuse/Use, Anxiety, Depression and Bipolar Disorder who was brought to ED by EMS for evaluation of ETOH Intoxication. Plan: Continue IV Rocephin. CIWAA protocol. Metoprolol PO for Tachycardia. Daily 25 mg BID metoprolol. Repeat AM labs. IV fluids ordered. Librium at 25 mg daily. PRN anti-emetic agents. Supplement magnesium and potassium. Regular diet but monitor. Seizure precautions. CM/SW consultation. Dr. Torres, psychiatry consultation with medication changes as recommended. Await blood cultures. DVT/GI prophylaxis. Code status is full. M/S/P status. LOS >96 Hrs due to severe detox and generalized weakness. Will need placement at discharge
[2020-03-16] MEDS: Lactated Ringers 1,000 ML IV SCH (07:52)
[2020-03-16] MEDS: Potassium Chloride 10 MEQ Tab.ER PO SCH (10:01)
[2020-03-16] MEDS: Magnesium Oxide 400 MG Tab PO SCH ×2 (10:01→20:20)
[2020-03-16] MEDS: Sucralfate 1 GM Tab PO SCH ×4 (10:01→20:19)
[2020-03-16] MEDS: chlordiazePOXIDE 25 MG Cap PO SCH (10:02)
[2020-03-16] MEDS: Metoprolol Tartrate 25 MG Tab PO SCH ×2 (10:02→20:19)
[2020-03-16] MEDS: Losartan 25 MG Tab PO SCH (10:02)
[2020-03-16] MEDS: cefTRIAXone 2 GM in Sodium Chloride 0.9% 100 ML IV SCH (10:04)
[2020-03-16] MEDS: Folic Acid 1 MG Tab PO SCH (12:25)
[2020-03-16] MEDS: chlorproMAZINE 25 MG Tab PO SCH (17:31)
[2020-03-16] MEDS: fluvoxaMINE 100 MG Tab PO SCH (17:31)
[2020-03-16] MEDS: LORazepam 2 MG/ML SDV IVPUSH PRN (18:35)
[2020-03-16] MEDS: Topiramate 25 MG Tab PO SCH (20:18)
[2020-03-16] MEDS: Montelukast 10 MG Tab PO SCH (20:19)
[2020-03-16] MEDS: Thiamine 100 MG Tab PO SCH (20:19)
[2020-03-16] MEDS ORDERED: Potassium Chloride 20 MEQ Tab.ER PO SCH (21:00)
--- NOTE | 2020-03-17 07:18 | PCM.PN ---
- General Info Date of Service: 03/17/20 Admission Dx/Problem (Free Text): ETOH Abuse Subjective Update: In to see "Gadiel" she is sitting up in bed and was just evaluated by fabienne stout. We have been trying to find places for inpatient treatment and thus far all have been full or refuse the patient with the exception of the [facility], which is still working progress. Chest x-ray shows left lower lobe pneumonia versus atelectasis. We will continue antibiotic treatment - given the patient's recent fever, for 3 to 5 days. Otherwise patient remained stable. Home medications were adjusted as the patient's blood pressures have been somewhat low. Heart rate has remained stable with no VT. She has been working with therapies. Librium was discontinued as patient is past the withdrawal phase. Hopeful for discharge tomorrow pending acceptance for treatment. Functional Status: Reports: Pain Controlled, Tolerating Diet, Ambulating, Urinating. Denies: New Symptoms - Review of Systems General: Reports: No Symptoms, Weakness. Denies: Fever, Fatigue, Malaise, Chills HEENT: Reports: No Symptoms. Denies: Headaches, Sore Throat Pulmonary: Reports: Shortness of Breath, Cough. Denies: Wheezing Cardiovascular: Reports: No Symptoms, Dyspnea on Exertion, Edema. Denies: Chest Pain, Palpitations Gastrointestinal: Reports: No Symptoms. Denies: Abdominal Pain, Constipation, Diarrhea, Nausea, Vomiting Genitourinary: Reports: No Symptoms. Denies: Pain Musculoskeletal: Reports: No Symptoms Skin: Reports: No Symptoms. Denies: Cyanosis Neurological: Reports: Confusion, Difficulty Walking, Weakness, Gait Disturbance. Denies: Numbness, Tingling Psychiatric: Reports: No Symptoms - Patient Data Vitals - Most Recent: Last Vital Signs Temp 97.6 F 03/17/20 04:00 Pulse 93 03/16/20 20:19 Resp 14 03/17/20 04:00 BP 94/54 L 03/17/20 04:00 Pulse Ox 92 L 03/17/20 04:19 Weight - Most Recent: 136 lb 1.6 oz I&O - Last 24 Hours: Intake & Output 03/16/20 03/17/20 03/17/20 22:59 06:59 14:59 Intake Total 700 400 Output Total 600 300 Balance 100 100 Lab Results Last 24 Hours: Laboratory Results - last 24 hr 03/17/20 03/17/20 Range/Units 05:22 05:22 WBC 7.51 (3.98-10.04) K/mm3 RBC 3.27 L (3.98-5.22) M/mm3 Hgb 9.4 L (11.2-15.7) gm/dl Hct 31.8 L (34.1-44.9) % MCV 97.2 H (79.4-94.8) fl MCH 28.7 (25.6-32.2) pg MCHC 29.6 L (32.2-35.5) g/dl RDW Std Deviation 55.5 H (36.4-46.3) fL Plt Count 332 D (182-369) K/mm3 MPV 9.1 L (9.4-12.3) fl Neut % (Auto) 66.0 (34.0-71.1) % Lymph % (Auto) 17.4 L (19.3-51.7) % [place] % (Auto) 13.3 H (4.7-12.5) % Eos % (Auto) 2.9 (0.7-5.8) Baso % (Auto) 0.1 (0.1-1.2) % Neut # (Auto) 4.95 (1.56-6.13) K/mm3 Lymph # (Auto) 1.31 (1.18-3.74) K/mm3 [place] # (Auto) 1.00 H (0.24-0.36) K/mm3 Eos # (Auto) 0.22 (0.04-0.36) K/mm3 Baso # (Auto) 0.01 (0.01-0.08) K/mm3 Manual Slide Review Abnormal smear Sodium 141 (136-145) mEq/L Potassium 4.3 (3.5-5.1) mEq/L Chloride 106 (98-107) mEq/L Carbon Dioxide 24 (21-32) mEq/L Anion Gap 15.3 H (5-15) BUN 12 (7-18) mg/dL Creatinine 0.7 (0.55-1.02) mg/dL Est Cr Clr Drug Dosing 78.01 mL/min Estimated GFR (MDRD) > 60 (>60) mL/min BUN/Creatinine Ratio 17.1 (14-18) Glucose 99 (80-115) mg/dL Calcium 8.7 (8.5-10.1) mg/dL Total Bilirubin 0.1 L (0.2-1.0) mg/dL AST 11 L (15-37) U/L ALT 15 (14-59) U/L Alkaline Phosphatase 68 (46-116) U/L Total Protein 5.0 L (6.4-8.2) g/dl Albumin 2.0 L (3.4-5.0) g/dl Globulin 3.0 gm/dL Albumin/Globulin Ratio 0.7 L (1-2) Chance Results Last 24 Hours: Microbiology 03/15/20 07:00 Aerobic Blood Culture - Preliminary Blood - Venous - Lab Draw NO GROWTH AFTER 2 DAYS Anaerobic Blood Culture - Preliminary NO GROWTH AFTER 2 DAYS 03/15/20 06:28 Aerobic Blood Culture - Preliminary Blood - Venous NO GROWTH AFTER 2 DAYS Anaerobic Blood Culture - Preliminary NO GROWTH AFTER 2 DAYS Med Orders - Current: Current Medications Acetaminophen (Tylenol) 650 mg PO Q4H PRN PRN Reason: Fever Last Admin: 03/15/20 05:57 Dose: 650 mg Documented by: Al Hydroxide/Mg Hydroxide (Mag-Al Plus) 30 ml PO Q4H PRN PRN Reason: Heartburn Last Admin: 03/12/20 01:40 Dose: 30 ml Documented by: Albuterol/Ipratropium (Duoneb 3.0-0.5 Mg/3 Ml) 3 ml NEB Q4H PRN PRN Reason: Shortness Of Breath/wheezing Chlordiazepoxide HCl (Librium) 25 mg PO DAILY [facility] Chlorpromazine HCl (Thorazine) 50 mg PO QPM [facility] Last Admin: 03/16/20 17:31 Dose: 50 mg Documented by: Clonidine HCl (Catapres) 0.1 mg PO Q4H PRN PRN Reason: Agitation Last Admin: 03/10/20 13:11 Dose: 0.1 mg Documented by: Docusate Sodium (Colace) 100 mg PO BID PRN PRN Reason: Constipation Fluvoxamine Maleate (Luvox) 50 mg PO QPM [facility] Last Admin: 03/16/20 17:31 Dose: 50 mg Documented by: Folic Acid (Folic Acid) 1 mg PO DAILY [facility] Last Admin: 03/16/20 12:25 Dose: 1 mg Documented by: Haloperidol Lactate (Haldol) 2 mg IM Q4H PRN PRN Reason: Agitation Last Admin: 03/10/20 23:13 Dose: 2 mg Documented by: Hydralazine HCl (Apresoline) 20 mg IVPUSH Q4H PRN PRN Reason: Hypertension Promethazine HCl 12.5 mg/ (Sodium Chloride) 50.5 mls @ 100 mls/hr IV Q6H PRN PRN Reason: Nausea/Vomiting Last Admin: 03/06/20 23:44 Dose: 100 mls/hr Documented by: Ceftriaxone Sodium 2 gm/ (Sodium Chloride) 100 mls @ 200 mls/hr IV Q24H [facility] Last Admin: 03/16/20 10:04 Dose: 200 mls/hr Documented by: Lorazepam (Ativan) 1 - 3 mg IVPUSH Q1H PRN; Protocol PRN Reason: Withdrawal Symptoms Last Admin: 03/16/20 18:35 Dose: 1 mg Documented by: Losartan Potassium (Cozaar) 12.5 mg PO DAILY [facility] Last Admin: 03/16/20 10:02 Dose: 12.5 mg Documented by: Magnesium Oxide (Magnesium Oxide) 800 mg PO BID [facility] Last Admin: 03/16/20 20:20 Dose: 800 mg Documented by: Metoprolol Tartrate (Lopressor) 25 mg PO Q6H PRN PRN Reason: See Label Comment Last Admin: 03/07/20 08:30 Dose: 25 mg Documented by: Metoprolol Tartrate (Lopressor) 25 mg PO Q12H [facility] Last Admin: 03/16/20 20:19 Dose: 25 mg Documented by: Montelukast Sodium (Singulair) 10 mg PO BEDTIME [facility] Last Admin: 03/16/20 20:19 Dose: 10 mg Documented by: Ondansetron HCl (Zofran) 4 mg IV Q6H PRN PRN Reason: Nausea/Vomiting Last Admin: 03/08/20 23:15 Dose: 4 mg Documented by: Polyethylene Glycol (Miralax) 17 gm PO DAILY PRN PRN Reason: Constipation Potassium Chloride (Klor-Con M20) 20 meq PO BID [facility] Last Admin: 03/16/20 20:19 Dose: 20 meq Documented by: Sodium Chloride (Saline Flush) 10 ml FLUSH ASDIRECTED PRN PRN Reason: Keep Vein Open Last Admin: 03/06/20 16:10 Dose: 10 ml Documented by: Sucralfate (Carafate) 1 gm PO QID [facility] Last Admin: 03/16/20 20:19 Dose: 1 gm Documented by: Thiamine HCl (Vitamin B-1) 100 mg PO BEDTIME [facility] Last Admin: 03/16/20 20:19 Dose: 100 mg Documented by: Topiramate (Topamax) 75 mg PO BEDTIME [facility] Last Admin: 03/16/20 20:18 Dose: 75 mg Documented by: Discontinued Medications Atenolol (Tenormin) 25 mg PO QAM [facility] Last Admin: 03/07/20 08:00 Dose: 25 mg Documented by: Chlordiazepoxide HCl (Librium) 50 mg PO BID [facility] Last Admin: 03/14/20 08:47 Dose: 50 mg Documented by: Chlordiazepoxide HCl (Librium) 25 mg PO BID [facility] Last Admin: 03/16/20 10:02 Dose: 25 mg Documented by: Diphenhydramine HCl (Benadryl) 50 mg IVPUSH ONETIME ONE Stop: 03/06/20 19:32 Last Admin: 03/06/20 20:00 Dose: 50 mg Documented by: Duloxetine HCl (Cymbalta) 30 mg PO DAILY [facility] Last Admin: 03/14/20 08:46 Dose: 30 mg Documented by: Folic Acid (Folic Acid) 1 mg PO DAILY [facility] Stop: 03/09/20 09:01 Last Admin: 03/09/20 08:09 Dose: 1 mg Documented by: Lactated Ringer's (Ringers, Lactated) 1,000 mls @ 500 mls/hr IV .BOLUS [facility] Last Admin: 03/06/20 16:10 Dose: 500 mls/hr Documented by: Potassium Chloride 10 meq/ (Premix) 100 mls @ 100 mls/hr IV Q1H STEPHANE Stop: 03/06/20 21:14 Last Admin: 03/06/20 21:34 Dose: 100 mls/hr Documented by: Magnesium Sulfate 4 gm/ Premix 50 mls @ 12.5 mls/hr IV ONETIME ONE Stop: 03/06/20 21:15 Last Admin: 03/06/20 20:06 Dose: 12.5 mls/hr Documented by: Lidocaine HCl (Xylocaine-Mpf 1%) Confirm Administered Dose 4 mls @ as directed .ROUTE .STK-MED ONE Stop: 03/06/20 18:39 Sodium Chloride (Normal Saline) 1,000 mls @ 50 mls/hr IV ASDIRECTED STEPHANE Stop: 03/07/20 15:44 Last Admin: 03/06/20 19:56 Dose: 50 mls/hr Documented by: Potassium Chloride 10 meq/ (Premix) 100 mls @ 100 mls/hr IV Q1H [facility] Stop: 03/07/20 10:14 Last Admin: 03/07/20 09:41 Dose: 100 mls/hr Documented by: Dextrose/Lactated Ringer's (Dextrose 5%-Lactated Ringers) 1,000 mls @ 125 mls/hr IV ASDIRECTED [facility] Last Admin: 03/07/20 13:12 Dose: 125 mls/hr Documented by: Lactated Ringer's (Ringers, Lactated) 1,000 mls @ 125 mls/hr IV ASDIRECTED [facility] Lactated Ringer's (Ringers, Lactated) 1,000 mls @ 75 mls/hr IV ASDIRECTED [facility] Last Admin: 03/07/20 21:05 Dose: 75 mls/hr Documented by: Magnesium Sulfate 4 gm/ Premix 50 mls @ 12.5 mls/hr IV ONETIME ONE Stop: 03/08/20 11:59 Last Admin: 03/08/20 08:35 Dose: 12.5 mls/hr Documented by: Potassium Phosphate 30 mmole/ (Sodium Chloride) 510 mls @ 102 mls/hr IV ONETIME ONE Stop: 03/08/20 16:59 Last Admin: 03/08/20 12:34 Dose: 102 mls/hr Documented by: Lactated Ringer's (Ringers, Lactated) 1,000 mls @ 125 mls/hr IV ASDIRECTED [facility] Last Admin: 03/10/20 09:50 Dose: 125 mls/hr Documented by: Magnesium Sulfate 4 gm/ Premix 50 mls @ 12.5 mls/hr IV ONETIME ONE Stop: 03/09/20 11:59 Last Admin: 03/09/20 08:18 Dose: 12.5 mls/hr Documented by: Lactated Ringer's (Ringers, Lactated) 1,000 mls @ 75 mls/hr IV ASDIRECTED [facility] Last Admin: 03/11/20 09:40 Dose: 75 mls/hr Documented by: Magnesium Sulfate 4 gm/ Premix 50 mls @ 12.5 mls/hr IV ONETIME ONE Stop: 03/11/20 11:29 Last Admin: 03/11/20 08:30 Dose: 12.5 mls/hr Documented by: Magnesium Sulfate (Magnesium Sulfate In Water Premix) 2 gm in 50 mls @ 25 mls/hr IV ONETIME ONE Stop: 03/11/20 13:59 Last Admin: 03/11/20 12:19 Dose: 25 mls/hr Documented by: Magnesium Sulfate 4 gm/ Premix 50 mls @ 12.5 mls/hr IV ONETIME ONE Stop: 03/14/20 12:59 Last Admin: 03/14/20 11:06 Dose: 12.5 mls/hr Documented by: Ceftriaxone Sodium 2 gm/ (Sodium Chloride) 100 mls @ 200 mls/hr IV Q24H [facility] Last Admin: 03/15/20 08:30 Dose: 200 mls/hr Documented by: Lactated Ringer's (Ringers, Lactated) 500 mls @ 999 mls/hr IV .BOLUS ONE Stop: 03/15/20 08:30 Last Admin: 03/15/20 07:59 Dose: 999 mls/hr Documented by: Magnesium Sulfate 4 gm/ Premix 50 mls @ 12.5 mls/hr IV ONETIME ONE Stop: 03/15/20 12:59 Last Admin: 03/15/20 08:55 Dose: 12.5 mls/hr Documented by: Lactated Ringer's (Ringers, Lactated) 1,000 mls @ [facility] Last Admin: 03/16/20 07:52 Dose: 999 mls/hr Documented by: Sodium Chloride (Normal Saline) 1,000 mls @ 175 mls/hr IV ASDIRECTED [facility] Last Admin: 03/16/20 02:10 Dose: 175 mls/hr Documented by: Lorazepam (Ativan) 1 mg PO ONETIME PRN PRN Reason: Anxiety Last Admin: 03/14/20 11:14 Dose: 1 mg Documented by: Magnesium Oxide (Magnesium Oxide) 200 mg PO DAILY [facility] Last Admin: 03/09/20 08:08 Dose: 200 mg Documented by: Magnesium Oxide (Magnesium Oxide) 400 mg PO BID [facility] Last Admin: 03/12/20 08:04 Dose: 400 mg Documented by: Metoprolol Tartrate (Lopressor) 5 mg IVPUSH ONETIME ONE Stop: 03/07/20 13:00 Last Admin: 03/07/20 13:05 Dose: 5 mg Documented by: Metoprolol Tartrate (Lopressor) 25 mg PO ONETIME ONE Stop: 03/07/20 13:02 Last Admin: 03/07/20 13:12 Dose: 25 mg Documented by: Metoprolol Tartrate (Lopressor) Confirm Administered Dose 5 mg .ROUTE .STK-MED ONE Stop: 03/07/20 13:03 Last Admin: 03/07/20 13:09 Dose: Not Given Documented by: Mometasone Furoate/Formoterol Fumar (Dulera 200-5 Mcg) 2 puff IH BID [facility] Last Admin: 03/15/20 20:38 Dose: 2 puff Documented by: Multivitamins (Thera) 1 each PO DAILY [facility] Stop: 03/11/20 09:01 Last Admin: 03/11/20 09:35 Dose: 1 each Documented by: Olanzapine (Zyprexa) 10 mg PO BEDTIME [facility] Last Admin: 03/13/20 20:02 Dose: 10 mg Documented by: Ondansetron HCl (Zofran) 4 mg IVPUSH ONETIME ONE Stop: 03/06/20 16:03 Last Admin: 03/06/20 16:10 Dose: 4 mg Documented by: Pantoprazole Sodium (Protonix) 40 mg PO ACBREAKFAST [facility] Pantoprazole Sodium (Protonix Iv) 40 mg .XX ONETIME ONE Stop: 03/06/20 19:21 Last Admin: 03/06/20 21:37 Dose: Not Given Documented by: Pantoprazole Sodium (Protonix Iv) 40 mg IVPUSH ONETIME ONE Stop: 03/06/20 21:22 Last Admin: 03/06/20 21:33 Dose: 40 mg Documented by: Pantoprazole Sodium (Protonix) 40 mg PO DAILY@0800 [facility] Last Admin: 03/13/20 08:43 Dose: 40 mg Documented by: Potassium Chloride (Klor-Con M20) 20 meq PO DAILY [facility] Potassium Chloride (Klor-Con M20) 40 meq PO BID [facility] Stop: 03/08/20 09:01 Last Admin: 03/08/20 08:30 Dose: 40 meq Documented by: Potassium Chloride (Klor-Con M20) 40 meq PO BID [facility] Stop: 03/12/20 09:01 Last Admin: 03/12/20 08:04 Dose: 40 meq Documented by: Potassium Chloride (Klor-Con M20) 40 meq PO ONETIME ONE Stop: 03/12/20 10:35 Last Admin: 03/12/20 11:50 Dose: 40 meq Documented by: Potassium Chloride (Klor-Con 10) 10 meq PO DAILY [facility] Last Admin: 03/16/20 10:01 Dose: 10 meq Documented by: Thiamine HCl (Vitamin B-1) 100 mg IVPUSH ONETIME ONE Stop: 03/06/20 17:23 Last Admin: 03/06/20 17:39 Dose: 100 mg Documented by: Thiamine HCl (Vitamin B-1) 100 mg PO DAILY [facility] Stop: 03/12/20 09:01 Last Admin: 03/12/20 08:05 Dose: 100 mg Documented by: Topiramate (Topamax) 25 mg PO BID [facility] Topiramate (Topamax) 50 mg PO BEDTIME [facility] Last Admin: 03/13/20 20:03 Dose: 50 mg Documented by: - Exam Quality Assessment: DVT Prophylaxis. No: Supplemental Oxygen, Urine Catheter General: Alert, Cooperative, No Acute Distress HEENT: Pupils Equal, Pupils Reactive, Mucous Membr. Moist/[place] Neck: Supple, Trachea Midline Lungs: Normal Respiratory Effort, Decreased Breath Sounds, Rhonchi (left lung ) Cardiovascular: Regular Rate, Regular Rhythm GI/Abdominal Exam: Normal Bowel Sounds, Soft, Non-Tender, No Distention (Female) Exam: Deferred Back Exam: Normal Inspection, Full Range of Motion Extremities: Normal Inspection, Normal Range of Motion, Non-Tender, Normal Capillary Refill, Pedal Edema (bilateral feet and hands ) Peripheral Pulses: 3+: Radial (L), Radial (R), Dorsalis Pedis (L), Dorsalis Pedis (R) Skin: Warm, Dry, Intact Neurological: No New Focal Deficit Psy/Mental Status: Alert, Anxious, Depressed. No: Agitated, Hallucinations, Withdrawal Symptoms Sepsis Event Note - Evaluation Sepsis Screening Result: No Definite Risk - Focused Exam Vital Signs: Vital Signs Temp Pulse Resp BP BP Pulse Ox 03/17/20 04:19 92 L 03/17/20 04:00 97.6 F 14 94/54 L 94 L 03/16/20 23:00 92 L 03/16/20 22:00 92 L 03/16/20 21:00 93 L 03/16/20 20:19 93 98/62 03/16/20 20:16 93 L 03/16/20 20:15 97.3 F 14 98/62 93 L - Problem List & Annotations (1) Alcohol intoxication SNOMED Code(s): 73025358 Code(s): F10.129 - ALCOHOL ABUSE WITH INTOXICATION, UNSPECIFIED Status: Acute Priority: High Current Visit: Yes Qualifiers: Complication of substance-induced condition: with delirium Qualified Code(s): F10.921 - Alcohol use, unspecified with intoxication delirium (2) Hypocalcemia SNOMED Code(s): 5891345 Code(s): E83.51 - HYPOCALCEMIA Status: Acute Priority: High Current Visit: Yes (3) Hypokalemia SNOMED Code(s): 91489856 Code(s): E87.6 - HYPOKALEMIA Status: Acute Priority: High Current Visit: Yes (4) Hypomagnesemia SNOMED Code(s): 449049907 Code(s): E83.42 - HYPOMAGNESEMIA Status: Acute Priority: High Current Visit: Yes (5) Alcohol abuse with alcohol-induced anxiety disorder SNOMED Code(s): 29408579, 49638986 Code(s): F10.180 - ALCOHOL ABUSE WITH ALCOHOL-INDUCED ANXIETY DISORDER Status: Chronic Priority: High Current Visit: Yes (6) Alcohol dependence, binge pattern SNOMED Code(s): 409317587 Code(s): F10.20 - ALCOHOL DEPENDENCE, UNCOMPLICATED Status: Chronic Priority: High Current Visit: Yes (7) Leukocytosis SNOMED Code(s): 884637386, 794040566 Code(s): D72.829 - ELEVATED WHITE BLOOD CELL COUNT, UNSPECIFIED Status: Acute Priority: High Current Visit: Yes Qualifiers: Leukocytosis type: unspecified Qualified Code(s): D72.829 - Elevated white blood cell count, unspecified (8) Bipolar disorder SNOMED Code(s): 60516728 Code(s): F31.9 - BIPOLAR DISORDER, UNSPECIFIED Status: Chronic Priority: High Current Visit: Yes Qualifiers: Active/Remission status: remission status unspecified Qualified Code(s): F31.9 - Bipolar disorder, unspecified (9) Hypoglycemia SNOMED Code(s): 032010299 Code(s): E16.2 - HYPOGLYCEMIA, UNSPECIFIED Status: Acute Priority: High Current Visit: Yes (10) Alcohol withdrawal syndrome SNOMED Code(s): 347229932 Code(s): F10.239 - ALCOHOL DEPENDENCE WITH WITHDRAWAL, UNSPECIFIED Status: Acute Priority: High Current Visit: Yes Qualifiers: Complication of substance-induced condition: with delirium Qualified Code(s): F10.231 - Alcohol dependence with withdrawal delirium (11) Hypophosphatemia SNOMED Code(s): 5630239 Code(s): E83.39 - OTHER DISORDERS OF PHOSPHORUS METABOLISM Status: Acute Priority: High Current Visit: Yes (12) Hallucinations SNOMED Code(s): 4253945 Code(s): R44.3 - HALLUCINATIONS, UNSPECIFIED Status: Acute Priority: High Current Visit: Yes (13) Hypotension SNOMED Code(s): 27408500 Code(s): I95.9 - HYPOTENSION, UNSPECIFIED Status: Acute Priority: High Current Visit: Yes Qualifiers: Hypotension type: unspecified hypotension type Qualified Code(s): I95.9 - Hypotension, unspecified (14) Sepsis SNOMED Code(s): 35874033 Code(s): A41.9 - SEPSIS, UNSPECIFIED ORGANISM Status: Acute Priority: High Current Visit: Yes Qualifiers: Sepsis type: sepsis due to unspecified organism Sepsis acute organ dysfunction status: with acute organ dysfunction Severe sepsis acute organ dysfunction type: unspecified Severe sepsis shock status: with septic shock Qualified Code(s): A41.9 - Sepsis, unspecified organism; R65.21 - Severe sepsis with septic shock (15) Atelectasis of left lung SNOMED Code(s): 53921073 Code(s): J98.11 - ATELECTASIS Status: Acute Priority: High Current Visit: Yes (16) Pneumonia SNOMED Code(s): 098947297 Code(s): J18.9 - PNEUMONIA, UNSPECIFIED ORGANISM Status: Acute Priority: High Current Visit: Yes Qualifiers: Pneumonia type: due to unspecified organism Laterality: left Lung location: lower lobe of lung Qualified Code(s): J18.9 - Pneumonia, unspecified organism - Problem List Review Problem List Initiated/Reviewed/Updated: Yes - My Orders Last 24 Hours: My Active Orders 03/16/20 10:45 Folic Acid 1 mg PO DAILY 03/16/20 21:00 Potassium Chloride [Klor-Con M20] 20 meq PO BID Thiamine [Vitamin B-1] 100 mg PO BEDTIME 03/17/20 09:00 chlordiazePOXIDE [Librium] 25 mg PO DAILY 03/18/20 05:11 CBC WITH AUTO DIFF [HEME] AM CMP [COMPREHENSIVE METABOLIC PN,CMP] [CHEM] AM 03/19/20 05:11 CBC WITH AUTO DIFF [HEME] AM CMP [COMPREHENSIVE METABOLIC PN,CMP] [CHEM] AM - Plan Plan:: This is a 64 yo white female with past medical hx/o Impaired vision, hypertension, hyperlipidemia, Asthma, GERD, Recurrent UTI, Chronic Headaches, Eating Disorder, Osteoporosis, Chronic ETOH Abuse/Use, Anxiety, Depression and Bipolar Disorder who was brought in to ED by EMS for evaluation of ETOH Intoxication. Assessment: Acute: Acute on Chronic ETOH Abuse, carries a hx/o prolonged and hard detox Alcohol withdrawal syndrome with delirium, continues to improve Hypomagnesemia with Mg of 1.7-->2.1-->1.6-->1.8-->1.7-->1.4-->1.4-->1.6-->1.8 persistent due to inadequate nutritional intake Hypoalbuminemia with Albumin of 2.4-->2.0-->1.9-->1.8-->2.0, persistent due to inadequate nutritional intake Generalized Weakness, mostly bedbound and poor nutritional intake SIRS with PNA as likely source Hypotension Pneumonia vs. atelectasis of left lower lobe of lung Atelectasis of left mid lobe of lung Resolved: ETOH Intoxication with CYNTHIA level of 0.50, known chronic alcoholic Leukocytosis with WBC of 15.31-->16.30-->6.73, resolved Thrombocytosis, might be pseudo Elevated AG of 17.6-->21.7-->15.3-->14.9, resolved Elevated AST of 60-->63-->46-->28, resolved Elevated Alk Phos fo 155-->125-->122-->112, resolved Mild Rhabdomyolysis with CK of 647-->703-->312-->186, resolved Hypophosphatemia with phosphorous of 1.4--> now 4, resolved Thrombocytopenia with Platelet of 136K-->223k, resolved Hypokalemia with K of 2.6-->2.7-->3.3-->3.9-->3.5-->3.4-->4.0-->3.8-->4.3 Hyperchloremia with Cl of 110-->106 Hypoglycemia with blood glucose of 42, no diabetes history Chronic: Impaired vision, hypertension, hyperlipidemia, Asthma, GERD, Recurrent UTI, Chronic Headaches, Eating Disorder, Osteoporosis, Chronic ETOH Abuse/Use, Anxiety, Depression and Bipolar Disorder who was brought to ED by EMS for evaluation of ETOH Intoxication. Plan: Continue IV Rocephin. CIWAA protocol. Stop BP meds due to soft BPs. Metoprolol PO for Tachycardia. Daily 12.5 mg BID metoprolol. Repeat AM labs. IV fluids ordered. IS. PRN anti-emetic agents. Supplement magnesium and potassium. Regular diet but monitor. Seizure precautions. CM/SW consultation. Dr. Torres, psychiatry consultation with medication changes as recommended. Monitor blood cultures. Repeat CXR today. DVT/GI prophylaxis. Code status is full. M/S/P status. Commitment paperwork filed today. Likely discharge tomorrow for treatment. LOS >96 Hrs due to severe detox and generalized weakness. Will need placement at discharge
[2020-03-17] MEDS ORDERED: LORazepam 2 MG/ML SDV IVPUSH PRN (07:22)
[2020-03-17] MEDS: Potassium Chloride 10 MEQ Tab.ER PO SCH ×2 (08:11→20:13)
[2020-03-17] MEDS: Magnesium Oxide 400 MG Tab PO SCH ×2 (08:11→20:13)
[2020-03-17] MEDS: Sucralfate 1 GM Tab PO SCH ×4 (08:11→20:13)
[2020-03-17] MEDS: Metoprolol Tartrate 25 MG Tab PO SCH ×4 (08:11→20:23)
[2020-03-17] MEDS: Losartan 25 MG Tab PO SCH (08:12)
[2020-03-17] MEDS: Folic Acid 1 MG Tab PO SCH (08:13)
[2020-03-17] MEDS ORDERED: chlordiazePOXIDE 25 MG Cap PO SCH (09:00)
[2020-03-17] MEDS: cefTRIAXone 2 GM in Sodium Chloride 0.9% 100 ML IV SCH (10:09)
--- NOTE | 2020-03-17 12:35 | CR ---
Chest: 2 views of the chest were obtained. Comparison: Prior chest x-ray 03/15/19. Blunting of the costophrenic angles are seen suspicious for small pleural effusions as an interval change from prior exam. Thick area of atelectasis is seen within the left mid to lower lung. Heart size is normal. Increased density is also noted within the left lung base most likely representing atelectasis unless patient has infectious symptoms. Prior bilateral shoulder surgery is noted. Scoliosis is noted within the spine. Impression: 1. Thick area of atelectasis within the left midlung. 2. Findings suspicious for small bilateral pleural effusions. 3. Increased density within left lung base either due to atelectasis or pneumonia if patient has infectious symptoms. Diagnostic code #3
[2020-03-17] MEDS: chlorproMAZINE 25 MG Tab PO SCH (17:15)
[2020-03-17] MEDS: fluvoxaMINE 100 MG Tab PO SCH (17:15)
[2020-03-17] MEDS: Thiamine 100 MG Tab PO SCH (20:13)
[2020-03-17] MEDS: Topiramate 25 MG Tab PO SCH (20:13)
[2020-03-17] MEDS: Montelukast 10 MG Tab PO SCH (20:15)
[2020-03-18] MEDS: Magnesium Oxide 400 MG Tab PO SCH (08:27)
[2020-03-18] MEDS: Potassium Chloride 10 MEQ Tab.ER PO SCH (08:28)
[2020-03-18] MEDS: Sucralfate 1 GM Tab PO SCH (08:29)
--- NOTE | 2020-03-18 08:29 | PCM.DCSUM1 ---
Discharge Summary - Hospital Course HPI Initial Comments: This is a 64 yo white female with past medical hx/o Impaired Vision, Hypertension, Hyperlipidemia, Asthma, GERD, Recurrent UTI, Chronic Headaches, Eating Disorder, Osteoporosis, Chronic ETOH Abuse/Use, Anxiety, Depression and Bipolar Disorder who was brought in to ED by EMS for evaluation of ETOH Intoxication. She is known to the hospital due to multiple admissions related to acute alcoholism. EMS found blanket and a pillow in the kitchen and it was felt she had been sleeping there. She drinks about 4/5th of vodka a day. She has been drinking heavily for days now. Her last drink was this morning. She denies having fever, chills, shortness of breath, or chest pain. No URI symptoms. No GI/ complaints. Her initial work up in ED shows a CBC remarkable for WBC of 15.31, Platelet of 503, and Neutrophils of 12.95. Her Chemistry is significant for K of 2.6, AG of 17.6, Ca of 7.3, Mg of 1.4, AST of 60, Alk Phos of 155, CK of 647, and Albumin of 2.4. Her UA is negative for UTI. Her UDS and Covid-19 tests are both negative. Her CYNTHIA level is 0.50. Her vitals show a temp fo 35.6C, HR of 106, BP of 141/86 mmHg, RR of 20 and O2 of 100% on RA. Like her previous admissions, she is coming for alcohol detoxification. Diagnosis: Stroke: No - Discharge Data Discharge Date: 03/18/20 (Admit date: 03/06/20) Discharge Disposition: DC/Tfer to Psych Hosp/[facility] Condition: Stable - Referral to Home Health Primary Care Physician: Renard Verduzco MD - Discharge Diagnosis/Problem(s) (1) Alcohol intoxication SNOMED Code(s): 25364467 ICD Code: F10.129 - ALCOHOL ABUSE WITH INTOXICATION, UNSPECIFIED Status: Resolved Priority: High Qualifiers: Complication of substance-induced condition: with delirium Qualified Code(s): F10.921 - Alcohol use, unspecified with intoxication delirium (2) Hypocalcemia SNOMED Code(s): 7559085 ICD Code: E83.51 - HYPOCALCEMIA Status: Resolved Priority: High (3) Hypokalemia SNOMED Code(s): 66472315 ICD Code: E87.6 - HYPOKALEMIA Status: Resolved Priority: High (4) Hypomagnesemia SNOMED Code(s): 009905019 ICD Code: E83.42 - HYPOMAGNESEMIA Status: Acute Priority: High (5) Alcohol abuse with alcohol-induced anxiety disorder SNOMED Code(s): 02096248, 57125130 ICD Code: F10.180 - ALCOHOL ABUSE WITH ALCOHOL-INDUCED ANXIETY DISORDER Status: Chronic Priority: High (6) Alcohol dependence, binge pattern SNOMED Code(s): 257748094 ICD Code: F10.20 - ALCOHOL DEPENDENCE, UNCOMPLICATED Status: Chronic Priority: High (7) Leukocytosis SNOMED Code(s): 441447777, 417841420 ICD Code: D72.829 - ELEVATED WHITE BLOOD CELL COUNT, UNSPECIFIED Status: Resolved Priority: High Qualifiers: Leukocytosis type: unspecified Qualified Code(s): D72.829 - Elevated white blood cell count, unspecified (8) Bipolar disorder SNOMED Code(s): 58147328 ICD Code: F31.9 - BIPOLAR DISORDER, UNSPECIFIED Status: Chronic Priority: High Qualifiers: Active/Remission status: remission status unspecified Qualified Code(s): F31.9 - Bipolar disorder, unspecified (9) Hypoglycemia SNOMED Code(s): 432545629 ICD Code: E16.2 - HYPOGLYCEMIA, UNSPECIFIED Status: Resolved Priority: High (10) Alcohol withdrawal syndrome SNOMED Code(s): 907388344 ICD Code: F10.239 - ALCOHOL DEPENDENCE WITH WITHDRAWAL, UNSPECIFIED Status: Acute Priority: High Qualifiers: Complication of substance-induced condition: with delirium Qualified Code(s): F10.231 - Alcohol dependence with withdrawal delirium (11) Hypophosphatemia SNOMED Code(s): 9251693 ICD Code: E83.39 - OTHER DISORDERS OF PHOSPHORUS METABOLISM Status: Resolved Priority: High (12) Hallucinations SNOMED Code(s): 5721236 ICD Code: R44.3 - HALLUCINATIONS, UNSPECIFIED Status: Resolved Priority: High (13) Hypotension SNOMED Code(s): 60886056 ICD Code: I95.9 - HYPOTENSION, UNSPECIFIED Status: Chronic Priority: High Qualifiers: Hypotension type: unspecified hypotension type Qualified Code(s): I95.9 - Hypotension, unspecified (14) Sepsis SNOMED Code(s): 81546969 ICD Code: A41.9 - SEPSIS, UNSPECIFIED ORGANISM Status: Resolved Priority: High Qualifiers: Sepsis type: sepsis due to unspecified organism Sepsis acute organ dysfunction status: with acute organ dysfunction Severe sepsis acute organ dysfunction type: unspecified Severe sepsis shock status: with septic shock Qualified Code(s): A41.9 - Sepsis, unspecified organism; R65.21 - Severe sepsis with septic shock (15) Atelectasis of left lung SNOMED Code(s): 90683596 ICD Code: J98.11 - ATELECTASIS Status: Acute Priority: High (16) Pneumonia SNOMED Code(s): 037560939 ICD Code: J18.9 - PNEUMONIA, UNSPECIFIED ORGANISM Status: Acute Priority: High Qualifiers: Pneumonia type: due to unspecified organism Laterality: left Lung location: lower lobe of lung Qualified Code(s): J18.9 - Pneumonia, unspecified organism - Patient Summary/Data Consults: Consultations 03/06/20 19:20 Consult to Case Management/Delivery Driver/Customer Service [CONS] Routine Consult to Funeral Counselor [CONS] Routine 03/09/20 10:36 Consult to Physician [CONS] Routine 03/11/20 10:54 Consult to Occupational Therapy [OT Evaluation and Treatment] [CONS] Routine PT Evaluation and Treatment [CONS] Routine 03/14/20 10:57 Consult to Spiritual Care [CONS] Routine Labs Pending at D/C: None Recommended Follow-up Testing/Procedures: Recommend follow-up with PCP within 5-7 days of discharge. Hospital Course: "Gadiel" had a rather complicated stay with us. She was initially admitted out of the emergency department after she was found down in her home on a welfare check. She was reportedly on the ground in her kitchen with a blanket and pillow. She was noted to have bruises on her body and it was apparent that she had been down for some time. She reports she had only been drinking since 9 AM that morning however her blood alcohol in the emergency room was 0.5. She had a rather difficult detox with CIWA's reaching as high as 23. She was started on 50 mg twice daily Librium as well as as needed Haldol and clonidine for anxiety and agitation. She was noted to be quite unsteady and underwent vivid hallucinations. PT/OT did work with her and she did see our dietitian. No seizure activity was ever noted. She had several episodes of ventricular tachycardia which self resolved. Because of this beta-camilo therapy was changed to twice daily 25 mg of Toprol tartrate with 25 mg p.o. of metoprolol tartrate as needed. After this dosing change no VT was noted. She was seen by our telepsychiatrist, Dr. Torres, who recommended discontinuing the patient's Cymbalta and Zyprexa and starting 50 mg Thorazine at bedtime along with 50 mg of Luvox at bedtime. He also recommended increasing the patient's Topamax from 50 mg to 75 mg at bedtime. Her electrolytes were quite variable and while we are able to replenish her potassium her magnesium did stay on the low end of normal. Recommend supplementation for magnesium continue. After patient had completed detox and symptoms had mostly resolved patient was noted to have 102.9 fever and become somewhat hypotensive pressure in the low 80s systolic. She was also requiring up to 2 L of oxygen. Sepsis alert was called and patient was given a 30 ml/kg food bolus. IV Rocephin was started and blood cultures, chest x-ray, UA, and repeat labs were obtained. Lactic acid was repeated and was within normal limits. There is no leukocytosis and UA and blood cultures were negative. Chest x-ray at that time showed atelectasis. Patient was given an incentive spirometer and Rocephin continued. Patient was rapidly weaned off of oxygen. Repeat chest x-ray did show area of thick atelectasis in the left midlung and atelectasis versus pneumonia in the left lower lobe. In discussion with patient she noted that she is hypertensive when she is drinking regularly however when she stops drinking she is noted to be hypotensive. Patient was receiving 50 mg of Cozaar along with 25 mg twice daily metoprolol tartrate and it is believed this was the cause of her hypotension. These medications were stopped. Blood pressures have since remained in the 90s to 100s systolic. She was given 3 days worth of Rocephin and should continue 500 mg 3 times daily Keflex after transfer. She was given Rocephin just before discharge and her first dose of Keflex should be the morning of 03/19/2020. Procalcitonin was obtained and was less than 0.05. Recommend repeat CBC, CMP, magnesium, and chest x-ray after discharge. Recommend patient continue to use incentive spirometer and Acapella for least 1 week after discharge to encourage resolution of atelectasis. Given severity of patient's condition, lack of insight into how severe her drinking is, frequency of patient visiting our facility with alcohol-related issues, and concerns over patient's safety committal paperwork was filed. Report was given to Franck Hardy NP with the [facility] in [place] who ultimately excepted the patient. She was transferred to the [facility] by [facility] office for treatment of her chronic alcohol abuse along with underlying mental health issues. - Patient Instructions Diet: Usual Diet as Tolerated Activity: As Tolerated Driving: Do Not Drive Notify Provider of: Fever, Increased Pain, Nausea and/or Vomiting Other/Special Instructions: Continue to utilize incentive spirometer for at least one week. Recommend continuing Keflex 500mg TID with first dose on for 6 more doses. Recommend repeat CBC, CMP, and magnesium within 3-5 days. - Discharge Plan *PRESCRIPTION DRUG MONITORING PROGRAM REVIEWED*: No *COPY OF PRESCRIPTION DRUG MONITORING REPORT IN PATIENT ANTHONY: No Prescriptions/Med Rec: fluvoxaMINE [fluvoxaMINE Maleate] 50 mg PO BEDTIME #1 tablet Metoprolol Tartrate 12.5 mg PO BID #1 tablet chlorproMAZINE [Thorazine] 50 mg PO BEDTIME #1 tab Topiramate [Topamax] 75 mg PO BEDTIME #1 tab Home Medications: Home Meds Fluticasone Propion/Salmeterol [Advair 250-50 Diskus] 1 puff IH DAILY 05/24/16 [History] atorvaSTATin [Lipitor] 20 mg PO DAILY 05/24/16 [History] Albuterol Sulfate [Albuterol Sulfate Hfa] 2 puff PO Q4HR PRN 12/22/18 [History] Omeprazole 20 mg PO ACBREAKFAST 12/22/18 [History] Potassium Chloride 20 meq PO DAILY 12/22/18 [History] Sucralfate [Carafate] 1 gm PO QID 12/22/18 [History] Folic Acid 1 mg PO DAILY #30 tablet 12/23/18 [Rx] Thiamine [Vitamin B-1] 100 mg PO BEDTIME #30 tab 10/29/19 [Rx] Cranberry Fruit Extract [Cranberry] 0 mg PO DAILY 04/01/19 [History] Lutein/Minerals/Vit A,C & E [Ocuvite] 1 tab PO DAILY 04/01/19 [History] Montelukast [Singulair] 10 mg PO BEDTIME 04/01/19 [History] Metoprolol Tartrate 12.5 mg PO BID #1 tablet 03/18/20 [Rx] Topiramate [Topamax] 75 mg PO BEDTIME #1 tab 03/18/20 [Rx] chlorproMAZINE [Thorazine] 50 mg PO BEDTIME #1 tab 03/18/20 [Rx] fluvoxaMINE [fluvoxaMINE Maleate] 50 mg PO BEDTIME #1 tablet 03/18/20 [Rx] Oxygen Therapy Mode: Room Air Patient Handouts: Alcohol Use Disorder, Alcohol Intoxication, [id number], Sepsis, Diagnosis, Adult Forms: ED Department Discharge Referrals: Renard Verduzco MD [Primary Care Provider] - - Discharge Summary/Plan Comment DC Time >30 min.: Yes (60 minutes) - General Info Date of Service: 03/18/20 Admission Dx/Problem (Free Text: ETOH Abuse Functional Status: Reports: Pain Controlled, Tolerating Diet, Ambulating, Urinating, Incentive Spirometry. Denies: New Symptoms - Review of Systems General: Reports: No Symptoms. Denies: Fever, Weakness, Fatigue, Malaise, Chills HEENT: Reports: No Symptoms. Denies: Headaches, Sore Throat Pulmonary: Reports: Shortness of Breath, Cough. Denies: Pleuritic Chest Pain, Sputum, Wheezing Cardiovascular: Reports: No Symptoms. Denies: Chest Pain, Palpitations, Dyspnea on Exertion Gastrointestinal: Reports: No Symptoms. Denies: Abdominal Pain, Constipation, Diarrhea, Nausea, Vomiting Genitourinary: Reports: No Symptoms. Denies: Pain Musculoskeletal: Reports: No Symptoms Skin: Reports: No Symptoms. Denies: Cyanosis Neurological: Reports: No Symptoms. Denies: Numbness, Tingling, Difficulty Walking, Weakness, Gait Disturbance Psychiatric: Reports: No Symptoms - Patient Data Vitals - Most Recent: Last Vital Signs Temp 97.6 F 03/18/20 04:00 Pulse 92 03/17/20 20:13 Resp 14 03/18/20 04:00 BP 95/60 03/18/20 04:00 Pulse Ox 93 L 03/18/20 04:00 Weight - Most Recent: 132 lb 3.2 oz I&O - Last 24 hours: Intake & Output 03/17/20 03/18/20 03/18/20 22:59 06:59 14:59 Intake Total 510 300 Output Total 900 300 Balance -390 0 Lab Results - Last 24 hrs: Laboratory Results - last 24 hr 03/17/20 03/18/20 Range/Units 15:40 05:30 Sodium 142 (136-145) mEq/L Potassium 3.9 (3.5-5.1) mEq/L Chloride 107 (98-107) mEq/L Carbon Dioxide 24 (21-32) mEq/L Anion Gap 14.9 (5-15) BUN 11 (7-18) mg/dL Creatinine 0.6 (0.55-1.02) mg/dL Est Cr Clr Drug Dosing 91.01 mL/min Estimated GFR (MDRD) > 60 (>60) mL/min BUN/Creatinine Ratio 18.3 H (14-18) Glucose 90 (80-115) mg/dL Calcium 8.7 (8.5-10.1) mg/dL Magnesium 1.6 L (1.8-2.4) mg/dl Total Bilirubin 0.1 L (0.2-1.0) mg/dL AST 11 L (15-37) U/L ALT 12 L (14-59) U/L Alkaline Phosphatase 72 (46-116) U/L Total Protein 4.9 L (6.4-8.2) g/dl Albumin 2.0 L (3.4-5.0) g/dl Globulin 2.9 gm/dL Albumin/Globulin Ratio 0.7 L (1-2) SARS-CoV-2 RNA (DODIE) Negative (NEGATIVE) EVAN Results - Last 24 hrs: Microbiology 03/15/20 07:00 Aerobic Blood Culture - Preliminary Blood - Venous - Lab Draw Anaerobic Blood Culture - Preliminary NO GROWTH AFTER 3 DAYS 03/15/20 06:28 Aerobic Blood Culture - Preliminary Blood - Venous NO GROWTH AFTER 3 DAYS Anaerobic Blood Culture - Preliminary NO GROWTH AFTER 3 DAYS Med Orders - Current: Current Medications Acetaminophen (Tylenol) 650 mg PO Q4H PRN PRN Reason: Fever Last Admin: 03/15/20 05:57 Dose: 650 mg Documented by: Al Hydroxide/Mg Hydroxide (Mag-Al Plus) 30 ml PO Q4H PRN PRN Reason: Heartburn Last Admin: 03/12/20 01:40 Dose: 30 ml Documented by: Albuterol/Ipratropium (Duoneb 3.0-0.5 Mg/3 Ml) 3 ml NEB Q4H PRN PRN Reason: Shortness Of Breath/wheezing Chlorpromazine HCl (Thorazine) 50 mg PO QPM [facility] Last Admin: 03/17/20 17:15 Dose: 50 mg Documented by: Docusate Sodium (Colace) 100 mg PO BID PRN PRN Reason: Constipation Last Admin: 03/17/20 20:13 Dose: 100 mg Documented by: Fluvoxamine Maleate (Luvox) 50 mg PO QPM [facility] Last Admin: 03/17/20 17:15 Dose: 50 mg Documented by: Folic Acid (Folic Acid) 1 mg PO DAILY [facility] Last Admin: 03/17/20 08:13 Dose: 1 mg Documented by: Haloperidol Lactate (Haldol) 2 mg IM Q4H PRN PRN Reason: Agitation Last Admin: 03/10/20 23:13 Dose: 2 mg Documented by: Promethazine HCl 12.5 mg/ (Sodium Chloride) 50.5 mls @ 100 mls/hr IV Q6H PRN PRN Reason: Nausea/Vomiting Last Admin: 03/06/20 23:44 Dose: 100 mls/hr Documented by: Ceftriaxone Sodium 2 gm/ (Sodium Chloride) 100 mls @ 200 mls/hr IV Q24H [facility] Last Admin: 03/17/20 10:09 Dose: 200 mls/hr Documented by: Lorazepam (Ativan) 1 mg IVPUSH Q4H PRN PRN Reason: Anxiety Last Admin: 03/17/20 14:47 Dose: 1 mg Documented by: Magnesium Oxide (Magnesium Oxide) 800 mg PO BID [facility] Last Admin: 03/17/20 20:13 Dose: 800 mg Documented by: Metoprolol Tartrate (Lopressor) 12.5 mg PO Q12H [facility] Last Admin: 03/17/20 20:23 Dose: Not Given Documented by: Montelukast Sodium (Singulair) 10 mg PO BEDTIME [facility] Last Admin: 03/17/20 20:15 Dose: 10 mg Documented by: Ondansetron HCl (Zofran) 4 mg IV Q6H PRN PRN Reason: Nausea/Vomiting Last Admin: 03/08/20 23:15 Dose: 4 mg Documented by: Polyethylene Glycol (Miralax) 17 gm PO DAILY PRN PRN Reason: Constipation Potassium Chloride (Klor-Con 10) 10 meq PO BID [facility] Last Admin: 03/17/20 20:13 Dose: 10 meq Documented by: Sodium Chloride (Saline Flush) 10 ml FLUSH ASDIRECTED PRN PRN Reason: Keep Vein Open Last Admin: 03/06/20 16:10 Dose: 10 ml Documented by: Sucralfate (Carafate) 1 gm PO QID [facility] Last Admin: 03/17/20 20:13 Dose: 1 gm Documented by: Thiamine HCl (Vitamin B-1) 100 mg PO BEDTIME [facility] Last Admin: 03/17/20 20:13 Dose: 100 mg Documented by: Topiramate (Topamax) 75 mg PO BEDTIME [facility] Last Admin: 03/17/20 20:13 Dose: 75 mg Documented by: Discontinued Medications Atenolol (Tenormin) 25 mg PO QAM [facility] Last Admin: 03/07/20 08:00 Dose: 25 mg Documented by: Chlordiazepoxide HCl (Librium) 50 mg PO BID [facility] Last Admin: 03/14/20 08:47 Dose: 50 mg Documented by: Chlordiazepoxide HCl (Librium) 25 mg PO BID [facility] Last Admin: 03/16/20 10:02 Dose: 25 mg Documented by: Chlordiazepoxide HCl (Librium) 25 mg PO DAILY [facility] Last Admin: 03/17/20 08:11 Dose: 25 mg Documented by: Clonidine HCl (Catapres) 0.1 mg PO Q4H PRN PRN Reason: Agitation Last Admin: 03/10/20 13:11 Dose: 0.1 mg Documented by: Diphenhydramine HCl (Benadryl) 50 mg IVPUSH ONETIME ONE Stop: 03/06/20 19:32 Last Admin: 03/06/20 20:00 Dose: 50 mg Documented by: Duloxetine HCl (Cymbalta) 30 mg PO DAILY [facility] Last Admin: 03/14/20 08:46 Dose: 30 mg Documented by: Folic Acid (Folic Acid) 1 mg PO DAILY [facility] Stop: 03/09/20 09:01 Last Admin: 03/09/20 08:09 Dose: 1 mg Documented by: Hydralazine HCl (Apresoline) 20 mg IVPUSH Q4H PRN PRN Reason: Hypertension Lactated Ringer's (Ringers, Lactated) 1,000 mls @ 500 mls/hr IV .BOLUS [facility] Last Admin: 03/06/20 16:10 Dose: 500 mls/hr Documented by: Potassium Chloride 10 meq/ (Premix) 100 mls @ 100 mls/hr IV Q1H [facility] Stop: 03/06/20 21:14 Last Admin: 03/06/20 21:34 Dose: 100 mls/hr Documented by: Magnesium Sulfate 4 gm/ Premix 50 mls @ 12.5 mls/hr IV ONETIME ONE Stop: 03/06/20 21:15 Last Admin: 03/06/20 20:06 Dose: 12.5 mls/hr Documented by: Lidocaine HCl (Xylocaine-Mpf 1%) Confirm Administered Dose 4 mls @ as directed .ROUTE .STK-MED ONE Stop: 03/06/20 18:39 Sodium Chloride (Normal Saline) 1,000 mls @ 50 mls/hr IV ASDIRECTED [facility] Stop: 03/07/20 15:44 Last Admin: 03/06/20 19:56 Dose: 50 mls/hr Documented by: Potassium Chloride 10 meq/ (Premix) 100 mls @ 100 mls/hr IV Q1H [facility] Stop: 03/07/20 10:14 Last Admin: 03/07/20 09:41 Dose: 100 mls/hr Documented by: Dextrose/Lactated Ringer's (Dextrose 5%-Lactated Ringers) 1,000 mls @ 125 mls/hr IV ASDIRECTED [facility] Last Admin: 03/07/20 13:12 Dose: 125 mls/hr Documented by: Lactated Ringer's (Ringers, Lactated) 1,000 mls @ 125 mls/hr IV ASDIRECTED STEPH[facility] Lactated Ringer's (Ringers, Lactated) 1,000 mls @ 75 mls/hr IV ASDIRECTED [facility] Last Admin: 03/07/20 21:05 Dose: 75 mls/hr Documented by: Magnesium Sulfate 4 gm/ Premix 50 mls @ 12.5 mls/hr IV ONETIME ONE Stop: 03/08/20 11:59 Last Admin: 03/08/20 08:35 Dose: 12.5 mls/hr Documented by: Potassium Phosphate 30 mmole/ (Sodium Chloride) 510 mls @ 102 mls/hr IV ONETIME ONE Stop: 03/08/20 16:59 Last Admin: 03/08/20 12:34 Dose: 102 mls/hr Documented by: Lactated Ringer's (Ringers, Lactated) 1,000 mls @ 125 mls/hr IV ASDIRECTED [facility] Last Admin: 03/10/20 09:50 Dose: 125 mls/hr Documented by: Magnesium Sulfate 4 gm/ Premix 50 mls @ 12.5 mls/hr IV ONETIME ONE Stop: 03/09/20 11:59 Last Admin: 03/09/20 08:18 Dose: 12.5 mls/hr Documented by: Lactated Ringer's (Ringers, Lactated) 1,000 mls @ 75 mls/hr IV ASDIRECTED [facility] Last Admin: 03/11/20 09:40 Dose: 75 mls/hr Documented by: Magnesium Sulfate 4 gm/ Premix 50 mls @ 12.5 mls/hr IV ONETIME ONE Stop: 03/11/20 11:29 Last Admin: 03/11/20 08:30 Dose: 12.5 mls/hr Documented by: Magnesium Sulfate (Magnesium Sulfate In Water Premix) 2 gm in 50 mls @ 25 mls/hr IV ONETIME ONE Stop: 03/11/20 13:59 Last Admin: 03/11/20 12:19 Dose: 25 mls/hr Documented by: Magnesium Sulfate 4 gm/ Premix 50 mls @ 12.5 mls/hr IV ONETIME ONE Stop: 03/14/20 12:59 Last Admin: 03/14/20 11:06 Dose: 12.5 mls/hr Documented by: Ceftriaxone Sodium 2 gm/ (Sodium Chloride) 100 mls @ 200 mls/hr IV Q24H [facility] Last Admin: 03/15/20 08:30 Dose: 200 mls/hr Documented by: Lactated Ringer's (Ringers, Lactated) 500 mls @ 999 mls/hr IV .BOLUS ONE Stop: 03/15/20 08:30 Last Admin: 03/15/20 07:59 Dose: 999 mls/hr Documented by: Magnesium Sulfate 4 gm/ Premix 50 mls @ 12.5 mls/hr IV ONETIME ONE Stop: 03/15/20 12:59 Last Admin: 03/15/20 08:55 Dose: 12.5 mls/hr Documented by: Lactated Ringer's (Ringers, Lactated) 1,000 mls @ 150 mls/hr IV ASDIRECTED [facility] Last Admin: 03/16/20 07:52 Dose: 999 mls/hr Documented by: Sodium Chloride (Normal Saline) 1,000 mls @ 175 mls/hr IV ASDIRECTED [facility] Last Admin: 03/16/20 02:10 Dose: 175 mls/hr Documented by: Lorazepam (Ativan) 1 - 3 mg IVPUSH Q1H PRN; Protocol PRN Reason: Withdrawal Symptoms Last Admin: 03/16/20 18:35 Dose: 1 mg Documented by: Lorazepam (Ativan) 1 mg PO ONETIME PRN PRN Reason: Anxiety Last Admin: 03/14/20 11:14 Dose: 1 mg Documented by: Losartan Potassium (Cozaar) 12.5 mg PO DAILY [facility] Last Admin: 03/17/20 08:12 Dose: Not Given Documented by: Magnesium Oxide (Magnesium Oxide) 200 mg PO DAILY [facility] Last Admin: 03/09/20 08:08 Dose: 200 mg Documented by: Magnesium Oxide (Magnesium Oxide) 400 mg PO BID [facility] Last Admin: 03/12/20 08:04 Dose: 400 mg Documented by: Metoprolol Tartrate (Lopressor) 25 mg PO Q6H PRN PRN Reason: See Label Comment Last Admin: 03/07/20 08:30 Dose: 25 mg Documented by: Metoprolol Tartrate (Lopressor) 5 mg IVPUSH ONETIME ONE Stop: 03/07/20 13:00 Last Admin: 03/07/20 13:05 Dose: 5 mg Documented by: Metoprolol Tartrate (Lopressor) 25 mg PO ONETIME ONE Stop: 03/07/20 13:02 Last Admin: 03/07/20 13:12 Dose: 25 mg Documented by: Metoprolol Tartrate (Lopressor) Confirm Administered Dose 5 mg .ROUTE .STK-MED ONE Stop: 03/07/20 13:03 Last Admin: 03/07/20 13:09 Dose: Not Given Documented by: Metoprolol Tartrate (Lopressor) 25 mg PO Q12H [facility] Last Admin: 03/17/20 08:11 Dose: Not Given Documented by: Mometasone Furoate/Formoterol Fumar (Dulera 200-5 Mcg) 2 puff IH BID [facility] Last Admin: 03/15/20 20:38 Dose: 2 puff Documented by: Multivitamins (Thera) 1 each PO DAILY [facility] Stop: 03/11/20 09:01 Last Admin: 03/11/20 09:35 Dose: 1 each Documented by: Olanzapine (Zyprexa) 10 mg PO BEDTIME [facility] Last Admin: 03/13/20 20:02 Dose: 10 mg Documented by: Ondansetron HCl (Zofran) 4 mg IVPUSH ONETIME ONE Stop: 03/06/20 16:03 Last Admin: 03/06/20 16:10 Dose: 4 mg Documented by: Pantoprazole Sodium (Protonix) 40 mg PO ACBREAKFAST [facility] Pantoprazole Sodium (Protonix Iv) 40 mg .XX ONETIME ONE Stop: 03/06/20 19:21 Last Admin: 03/06/20 21:37 Dose: Not Given Documented by: Pantoprazole Sodium (Protonix Iv) 40 mg IVPUSH ONETIME ONE Stop: 03/06/20 21:22 Last Admin: 03/06/20 21:33 Dose: 40 mg Documented by: Pantoprazole Sodium (Protonix) 40 mg PO DAILY@0800 [facility] Last Admin: 03/13/20 08:43 Dose: 40 mg Documented by: Potassium Chloride (Klor-Con M20) 20 meq PO DAILY [facility] Potassium Chloride (Klor-Con M20) 40 meq PO BID [facility] Stop: 03/08/20 09:01 Last Admin: 03/08/20 08:30 Dose: 40 meq Documented by: Potassium Chloride (Klor-Con M20) 40 meq PO BID [facility] Stop: 03/12/20 09:01 Last Admin: 03/12/20 08:04 Dose: 40 meq Documented by: Potassium Chloride (Klor-Con M20) 40 meq PO ONETIME ONE Stop: 03/12/20 10:35 Last Admin: 03/12/20 11:50 Dose: 40 meq Documented by: Potassium Chloride (Klor-Con 10) 10 meq PO DAILY [facility] Last Admin: 03/16/20 10:01 Dose: 10 meq Documented by: Potassium Chloride (Klor-Con M20) 20 meq PO BID [facility] Last Admin: 03/16/20 20:19 Dose: 20 meq Documented by: Thiamine HCl (Vitamin B-1) 100 mg IVPUSH ONETIME ONE Stop: 03/06/20 17:23 Last Admin: 03/06/20 17:39 Dose: 100 mg Documented by: Thiamine HCl (Vitamin B-1) 100 mg PO DAILY [facility] Stop: 03/12/20 09:01 Last Admin: 03/12/20 08:05 Dose: 100 mg Documented by: Topiramate (Topamax) 25 mg PO BID [facility] Topiramate (Topamax) 50 mg PO BEDTIME [facility] Last Admin: 03/13/20 20:03 Dose: 50 mg Documented by: - Exam Quality Assessment: Reports: DVT Prophylaxis. Denies: Supplemental Oxygen, Urine Catheter General: Reports: Alert, Oriented (mostly ), Cooperative, No Acute Distress HEENT: Reports: Pupils Equal, Pupils Reactive, Mucous Membr. Moist/[place] Neck: Reports: Supple, Trachea Midline Lungs: Reports: Clear to Auscultation, Normal Respiratory Effort Cardiovascular: Reports: Regular Rate, Regular Rhythm GI/Abdominal Exam: Normal Bowel Sounds, Soft, Non-Tender, No Distention (Female) Exam: Deferred Rectal (Female) Exam: Deferred Back Exam: Reports: Normal Inspection, Full Range of Motion Extremities: Normal Inspection, Normal Range of Motion, Non-Tender, Normal Capillary Refill, Pedal Edema, Other (Bilateral hand edema ) Skin: Reports: Warm, Dry, Intact Neurological: Reports: No New Focal Deficit Psy/Mental Status: Reports: Alert, Normal Affect, Normal Mood
[2020-03-18] MEDS: Metoprolol Tartrate 25 MG Tab PO SCH (08:31)
[2020-03-18] MEDS: cefTRIAXone 2 GM in Sodium Chloride 0.9% 100 ML IV SCH (08:33)
[2020-03-18] MEDS: Folic Acid 1 MG Tab PO SCH (08:33)
[2020-03-18 08:34] VITALS: BP 109/75; PULSE 88
[2020-03-19] MEDS ORDERED: Cephalexin 500 MG Cap PO SCH (09:00)
== END 2020-03-18 09:15 | DRG 775 ==
LOC: JD.ED 15:44 → JD.ICU 18:45
PROVIDERS: ADMIT Family Medicine; ATTEND Family Medicine
DX: F10.231 Alcohol dependence with withdrawal delirium (principal); A41.9 Sepsis, unspecified organism; R65.21 Severe sepsis with septic shock; J18.9 Pneumonia, unspecified organism; J98.11 Atelectasis; F10.221 Alcohol dependence with intoxication delirium; E83.51 Hypocalcemia; E87.6 Hypokalemia; Z20.822 Contact with and (suspected) exposure to COVID-19; E83.42 Hypomagnesemia; F10.280 Alcohol dependence with alcohol-induced anxiety disorder; F31.9 Bipolar disorder, unspecified; E83.39 Other disorders of phosphorus metabolism; R44.3 Hallucinations, unspecified; K21.9 Gastro-esophageal reflux disease without esophagitis; E78.5 Hyperlipidemia, unspecified; M81.0 Age-related osteoporosis without current pathological fracture; H54.7 Unspecified visual loss; E78.00 Pure hypercholesterolemia, unspecified; I10 Essential (primary) hypertension; J45.909 Unspecified asthma, uncomplicated; D47.3 Essential (hemorrhagic) thrombocythemia; M62.82 Rhabdomyolysis; E88.09 Other disorders of plasma-protein metabolism, not elsewhere classified; F50.9 Eating disorder, unspecified; F43.10 Post-traumatic stress disorder, unspecified; Y90.0 Blood alcohol level of less than 20 mg/100 ml; Z88.1 Allergy status to other antibiotic agents; Z88.8 Allergy status to other drugs, medicaments and biological substances; Z79.899 Other long term (current) drug therapy; Z98.890 Other specified postprocedural states; Z90.49 Acquired absence of other specified parts of digestive tract
CPT/HCPCS: 0240U; 36415; 51702; 71045; 71045-26; 71046; 71046-26; 80048; 80053; 80179; 80306; 81001; 82550; 82962; 83605; 83735; 84100; 84145; 85025; 85379; 85610; 86140; 87040; 93005; 94640; 94667; 96365; 96375; 97110-GP; 97116-GP; 97162-GP; 97530-GP; 99222; 99233; 99239; 99284; 99285-25; A9270-GY; C9113; J0696; J1200; J1630; J2001; J2060; J2405; J2550; J3411; J3475; J3480; J3490; J7030; J7040; J7120; J7121; U0002

== ENCOUNTER 2020-04-13 11:34 | Inpatient (IN) | payer BC ==
[2020-04-13] MEDS ORDERED: Metoclopramide 10 MG/2 ML SDV IVPUSH ONE (11:53)
[2020-04-13] MEDS ORDERED: Sodium Chloride 0.9% 10 ML Syringe FLUSH PRN (11:53)
[2020-04-13] MEDS ORDERED: Dextrose 5%-Lactated Ringers 1,000 ML IV SCH ×2 (12:00→17:15)
--- NOTE | 2020-04-13 12:19 | EDM.PDOC ---
ED HPI GENERAL MEDICAL PROBLEM - General Chief Complaint: Drug or Alcohol Abuse Stated Complaint: [facility] Time Seen by Provider: 04/13/20 11:39 Source of Information: Reports: Patient, EMS History Limitations: Reports: Intoxication - History of Present Illness INITIAL COMMENTS - FREE TEXT/NARRATIVE: 64 year old female brought in by EMS, severely intoxicated, after a wellfare check by her case management specialist. Pt was found sitting in her living room incontinent of bowl and bladder with empty bottles of alcohol around her. Apparently EMS reports that there were piles of stool around the house and the patient no longer has a dog. Pt patient denies falling, she states that she was just sitting there watching TV. Pt states she has been drinking heavily for the past several days and that her last drink was at 0300 this morning. Pt has a lengthy history of visits to the ED with admits for detox. She states that she has not eaten in about three days. - Related Data Allergies Allergy/AdvReac Type Severity Reaction Status Date / Time levofloxacin [From Levaquin] Allergy Severe Rash Verified 04/13/20 11:45 propoxyphene napsylate AdvReac Severe Headache Verified 04/13/20 11:45 [From Darvocet-N] Home Meds: Home Meds Fluticasone Propion/Salmeterol [Advair 250-50 Diskus] 1 puff IH DAILY 05/24/16 [History] atorvaSTATin [Lipitor] 20 mg PO DAILY 05/24/16 [History] Albuterol Sulfate [Albuterol Sulfate Hfa] 2 puff PO Q4HR PRN 12/22/18 [History] Omeprazole 20 mg PO ACBREAKFAST 12/22/18 [History] Potassium Chloride 20 meq PO DAILY 12/22/18 [History] Sucralfate [Carafate] 1 gm PO QID 12/22/18 [History] Folic Acid 1 mg PO DAILY #30 tablet 12/23/18 [Rx] Thiamine [Vitamin B-1] 100 mg PO BEDTIME #30 tab 12/23/18 [Rx] Cranberry Fruit Extract [Cranberry] 0 mg PO DAILY 04/01/19 [History] Lutein/Minerals/Vit A,C & E [Ocuvite] 1 tab PO DAILY 04/01/19 [History] Montelukast [Singulair] 10 mg PO BEDTIME 04/01/19 [History] Metoprolol Tartrate 12.5 mg PO BID #1 tablet 03/18/20 [Rx] Topiramate [Topamax] 75 mg PO BEDTIME #1 tab 03/18/20 [Rx] chlorproMAZINE [Thorazine] 50 mg PO BEDTIME #1 tab 03/18/20 [Rx] fluvoxaMINE [fluvoxaMINE Maleate] 50 mg PO BEDTIME #1 tablet 03/18/20 [Rx] Past Medical History HEENT History: Reports: Impaired Vision Other HEENT History: wears glasses Cardiovascular History: Reports: High Cholesterol, Hypertension Respiratory History: Reports: Asthma Gastrointestinal History: Reports: GERD Genitourinary History: Reports: UTI, Recurrent PHYTOPATHOLOGY TEACHER History: Reports: Other (See Below) Other PHYTOPATHOLOGY TEACHER History: Patient states she started menopause at 54 yoa Neurological History: Reports: Headaches, Chronic Other Neuro History: headaches Psychiatric History: Reports: Addiction, Anxiety, Bipolar, Depression, Eating Disorders Other Psychiatric History: eating disorder at age 14 Endocrine/Metabolic History: Reports: Osteoporosis Hematologic History: Reports: None Immunologic History: Reports: Other (See Below) Other Immunologic History: recurrent staph infections Oncologic (Cancer) History: Reports: None - Infectious Disease History Infectious Disease History: Reports: Chicken Pox, Measles, Mumps - Past Surgical History HEENT Surgical History: Reports: Adenoidectomy, Oral Surgery, Tonsillectomy, Other (See Below) Other HEENT Surgeries/Procedures: facial surgery to fractures on right side of face from fall. Cardiovascular Surgical History: Reports: None GI Surgical History: Reports: Appendectomy Other GI Surgeries/Procedures: GI bleed Other Female Surgeries/Procedures: Patient states she had her ureters dilated in [facility] Musculoskeletal Surgical History: Reports: ORIF, Shoulder Surgery, Other (See Below) Other Musculoskeletal Surgeries/Procedures:: wrist ORIF Social & Family History - Family History Family Medical History: Unobtainable Cardiac: Reports: None - Tobacco Use Tobacco Use Status *Q: Never Tobacco User - Caffeine Use Caffeine Use: Reports: None Other Caffeine Use: Unknown if ever used due to being currently intoxicated. 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 Denies: Fever, Chills HEENT: Reports: No Symptoms Respiratory: Reports: No Symptoms Cardiovascular: Reports: No Symptoms Endocrine: Reports: No Symptoms GI/Abdominal: Reports: Stool Incontinence. Denies: Abdominal Pain, Constipation, Diarrhea : Reports: Incontinence. Denies: Dysuria, Frequency Musculoskeletal: Reports: Joint Pain (ankles and wrists) Skin: Reports: Wound (abrasions noted to bilateral knees from crawling on the carpet) Neurological: Reports: Weakness (due to alcohol intoxication) Psychiatric: Reports: No Symptoms Hematologic/Lymphatic: Reports: No Symptoms Immunologic: Reports: No Symptoms ED EXAM, GENERAL - Physical Exam Exam: See Below Exam Limited By: Intoxication General Appearance: Alert, WD/WN, No Apparent Distress Eye Exam: Bilateral Eye: PERRL Ears: Hearing Grossly Normal Nose: Normal Inspection, Normal Mucosa Throat/Mouth: Normal Inspection, Normal Lips, Normal Voice, No Airway Compromise Head: Atraumatic, Normocephalic Neck: Normal Inspection, Supple, Non-Tender, Full Range of Motion Respiratory/Chest: No Respiratory Distress, Lungs Clear, Normal Breath Sounds, No Accessory Muscle Use, Chest Non-Tender Cardiovascular: Normal Peripheral Pulses, Regular Rate, Rhythm, No Edema, No Murmur Peripheral Pulses: 2+: Radial (L), Radial (R) GI/Abdominal: Normal Bowel Sounds, Soft, Non-Tender, No Distention (Female) Exam: Deferred Rectal (Female) Exam: Deferred Back Exam: Normal Inspection, Full Range of Motion Extremities: Normal Inspection, Normal Range of Motion, Non-Tender, No Pedal Edema, Normal Capillary Refill Neurological: Alert. No: Oriented (person and place only), Normal Gait (unable to ambulate due to intoxication) Psychiatric: Normal Affect, Normal Mood Skin Exam: Warm, Dry, Normal Color, Wound/Incision (abrasion noted to bilateral knees) Lymphatic: No Adenopathy #1 Interpretation EKG Date: 04/13/20 Time: 13:06 Rhythm: NSR Rate (Beats/Min): 96 Allgood: Normal P-Wave: Present QRS: Normal ST-T: Normal QT: Prolonged (Per Dr. Vieyra interpretation: sinus rhythm at 96, Q wave V1 and near Q wave V2, mildly decreased voltage in limb and precordial leads, QTc is moderately prolonged.) Course - Vital Signs Text/Narrative:: 64-year-old female presents to the emergency department by way of EMS. Patient was found sitting in her living room with empty alcohol bottles all around her incontinent of bowel and bladder when her case management specialist discovered her on a welfare check. Patient denies any injuries states she was just sitting on the floor watching TV. Patient is highly intoxicated with slurred speech and smells of alcohol. She states she has been drinking for several days and her last drink was at 3 AM this morning. Patient was found per EMS with piles of stool noted all around the house. Patient was apparently skating her but across the carpets to clean herself after being incontinent of stool. Upon assessment patient's lung sounds are clear she denies any discomfort except in her wrists and ankles where she states she has chronic arthritis. She does have rug ramirez noted to her bilateral knees from crawling around on the carpet in her home. I have ordered IV fluids, routine lab work. Patient is currently under court order to go to the [facility] once she is medically cleared from here. [facility] services state that they will make all the arrangements for this however the patient will likely need to be admitted and detoxed prior to this happening. Last Recorded V/S: Last Vital Signs Temp 96.5 F L 04/13/20 11:36 Pulse 111 H 04/13/20 21:08 Resp 16 04/13/20 21:08 BP 144/72 H 04/13/20 21:08 Pulse Ox 95 04/13/20 21:08 - Orders/Labs/Meds Orders: Active Orders 24 hr Category Date Time Status Dextrose 5%-Lactated Ringers 1,000 ml Med 04/13/20 17:15 Active IV ASDIRECTED Medication Orders Dextrose/Lactated Ringer's (Dextrose 5%-Lactated Ringers) 1,000 mls @ 999 mls/hr IV ASDIRECTED [facility] Last Admin: 04/13/20 12:44 Dose: 999 mls/hr Documented by: JORGE A Potassium Chloride 10 meq/ (Premix) 100 mls @ 100 mls/hr IV ASDIRECTED STEPHANE Last Admin: 04/13/20 17:33 Dose: 100 mls/hr Documented by: Infusion: 04/13/20 17:27 Dose: 100 mls/hr Documented by: Admin: 04/13/20 16:27 Dose: 100 mls/hr Documented by: Infusion: 04/13/20 16:24 Dose: 100 mls/hr Documented by: Admin: 04/13/20 15:24 Dose: 100 mls/hr Documented by: JORGE A Infusion: 04/13/20 15:12 Dose: 100 mls/hr Documented by: JORGE A Admin: 04/13/20 14:12 Dose: 100 mls/hr Documented by: JORGE A Dextrose/Lactated Ringer's (Dextrose 5%-Lactated Ringers) 1,000 mls @ 150 mls/hr IV ASDIRECTED STEPHANE Last Admin: 04/13/20 17:16 Dose: 150 mls/hr Documented by: JORGE A Sodium Chloride (Saline Flush) 10 ml FLUSH ASDIRECTED PRN PRN Reason: Keep Vein Open Last Admin: 04/13/20 12:44 Dose: 10 ml Documented by: JORGE A Labs: Laboratory Tests 04/13/20 04/13/20 04/13/20 Range/Units 12:38 12:38 12:38 WBC 5.92 (3.98-10.04) K/mm3 RBC 4.10 (3.98-5.22) M/mm3 Hgb 11.1 L D (11.2-15.7) gm/dl Hct 35.9 (34.1-44.9) % MCV 87.6 D (79.4-94.8) fl MCH 27.1 (25.6-32.2) pg MCHC 30.9 L (32.2-35.5) g/dl RDW Std Deviation 51.7 H (36.4-46.3) fL Plt Count 246 D (182-369) K/mm3 MPV 9.0 L (9.4-12.3) fl Neut % (Auto) 57.4 (34.0-71.1) % Lymph % (Auto) 36.1 (19.3-51.7) % [place] % (Auto) 5.6 (4.7-12.5) % Eos % (Auto) 0.2 L (0.7-5.8) Baso % (Auto) 0.5 (0.1-1.2) % Neut # (Auto) 3.40 (1.56-6.13) K/mm3 Lymph # (Auto) 2.14 (1.18-3.74) K/mm3 [place] # (Auto) 0.33 (0.24-0.36) K/mm3 Eos # (Auto) 0.01 L (0.04-0.36) K/mm3 Baso # (Auto) 0.03 (0.01-0.08) K/mm3 Sodium 146 H (136-145) mEq/L Potassium 2.7 L (3.5-5.1) mEq/L Chloride 105 (98-107) mEq/L Carbon Dioxide 30 (21-32) mEq/L Anion Gap 13.7 (5-15) BUN 7 (7-18) mg/dL Creatinine 0.6 (0.55-1.02) mg/dL Est Cr Clr Drug Dosing 76.57 mL/min Estimated GFR (MDRD) > 60 (>60) mL/min BUN/Creatinine Ratio 11.7 L (14-18) Glucose 89 (80-115) mg/dL Calcium 7.6 L (8.5-10.1) mg/dL Magnesium 1.6 L (1.8-2.4) mg/dl Total Bilirubin 0.5 (0.2-1.0) mg/dL AST 91 H (15-37) U/L ALT 61 H (14-59) U/L Alkaline Phosphatase 136 H (46-116) U/L Troponin I < 0.017 (0.00-0.056) ng/mL Total Protein 5.7 L (6.4-8.2) g/dl Albumin 3.0 L (3.4-5.0) g/dl Globulin 2.7 gm/dL Albumin/Globulin Ratio 1.1 (1-2) Lipase (73-393) U/L TSH 3rd Generation 0.760 (0.358-3.74) uIU/mL Urine Color (Yellow) Urine Appearance (Clear) Urine pH (5.0-8.0) Ur Specific [place] (1.005-1.030) Urine Protein (Negative) Urine Glucose (UA) (Negative) Urine Ketones (Negative) Urine Occult Blood (Negative) Urine Nitrite (Negative) Urine Bilirubin (Negative) Urine Urobilinogen (0.2-1.0) Ur Leukocyte Esterase (Negative) Salicylates 0.1 L (2.8-20) mg/dL Urine Opiates Screen (BLWWFS=426) Ur Buprenorphine Scrn (CUTOFF=10) Ur Oxycodone Screen (THF7KN=939) Urine Methadone Screen (WSNNKT=606) Ur Propoxyphene Screen (BDRCMG=577) Acetaminophen 0 L (10-30) ug/mL Ur Barbiturates Screen (LSQVPU=738) Ur Tricyclics Screen (EQFJLE=726) Ur Phencyclidine Scrn (CUTOFF=25) Ur Amphetamine Screen (YLYQXR=133) U Methamphetamines Scrn (OCGTOC=545) U Benzodiazepines Scrn (VTUSHP=215) U Cocaine Metab Screen (PBMVNH=092) U Marijuana (THC) Screen (CUTOFF=50) Ethyl Alcohol 0.42 (0.00) gm% SARS-CoV-2 RNA (DODIE) (NEGATIVE) 04/13/20 04/13/20 04/13/20 Range/Units 12:38 12:54 12:54 WBC (3.98-10.04) K/mm3 RBC (3.98-5.22) M/mm3 Hgb (11.2-15.7) gm/dl Hct (34.1-44.9) % MCV (79.4-94.8) fl MCH (25.6-32.2) pg MCHC (32.2-35.5) g/dl RDW Std Deviation (36.4-46.3) fL Plt Count (182-369) K/mm3 MPV (9.4-12.3) fl Neut % (Auto) (34.0-71.1) % Lymph % (Auto) (19.3-51.7) % [place] % (Auto) (4.7-12.5) % Eos % (Auto) (0.7-5.8) Baso % (Auto) (0.1-1.2) % Neut # (Auto) (1.56-6.13) K/mm3 Lymph # (Auto) (1.18-3.74) K/mm3 [place] # (Auto) (0.24-0.36) K/mm3 Eos # (Auto) (0.04-0.36) K/mm3 Baso # (Auto) (0.01-0.08) K/mm3 Sodium (136-145) mEq/L Potassium (3.5-5.1) mEq/L Chloride (98-107) mEq/L Carbon Dioxide (21-32) mEq/L Anion Gap (5-15) BUN (7-18) mg/dL Creatinine (0.55-1.02) mg/dL Est Cr Clr Drug Dosing mL/min Estimated GFR (MDRD) (>60) mL/min BUN/Creatinine Ratio (14-18) Glucose (80-115) mg/dL Calcium (8.5-10.1) mg/dL Magnesium (1.8-2.4) mg/dl Total Bilirubin (0.2-1.0) mg/dL AST (15-37) U/L ALT (14-59) U/L Alkaline Phosphatase (46-116) U/L Troponin I (0.00-0.056) ng/mL Total Protein (6.4-8.2) g/dl Albumin (3.4-5.0) g/dl Globulin gm/dL Albumin/Globulin Ratio (1-2) Lipase 89 (73-393) U/L TSH 3rd Generation (0.358-3.74) uIU/mL Urine Color Yellow (Yellow) Urine Appearance Clear (Clear) Urine pH 6.5 (5.0-8.0) Ur Specific [place] 1.015 (1.005-1.030) Urine Protein Negative (Negative) Urine Glucose (UA) Negative (Negative) Urine Ketones Negative (Negative) Urine Occult Blood Negative (Negative) Urine Nitrite Negative (Negative) Urine Bilirubin Negative (Negative) Urine Urobilinogen 0.2 (0.2-1.0) Ur Leukocyte Esterase Negative (Negative) Salicylates (2.8-20) mg/dL Urine Opiates Screen Negative (UMIIYW=973) Ur Buprenorphine Scrn Negative (CUTOFF=10) Ur Oxycodone Screen Negative (JVO4CI=596) Urine Methadone Screen Negative (YFZRZW=419) Ur Propoxyphene Screen Negative (TVLEME=256) Acetaminophen (10-30) ug/mL Ur Barbiturates Screen Negative (JXUZEN=154) Ur Tricyclics Screen Negative (QCEQXK=843) Ur Phencyclidine Scrn Negative (CUTOFF=25) Ur Amphetamine Screen Negative (QSELMU=646) U Methamphetamines Scrn Negative (WLWEMC=041) U Benzodiazepines Scrn Negative (UMUARU=619) U Cocaine Metab Screen Negative (AMUFTO=113) U Marijuana (THC) Screen Negative (CUTOFF=50) Ethyl Alcohol (0.00) gm% SARS-CoV-2 RNA (DODIE) (NEGATIVE) 04/13/20 04/13/20 Range/Units 17:32 18:40 WBC (3.98-10.04) K/mm3 RBC (3.98-5.22) M/mm3 Hgb (11.2-15.7) gm/dl Hct (34.1-44.9) % MCV (79.4-94.8) fl MCH (25.6-32.2) pg MCHC (32.2-35.5) g/dl RDW Std Deviation (36.4-46.3) fL Plt Count (182-369) K/mm3 MPV (9.4-12.3) fl Neut % (Auto) (34.0-71.1) % Lymph % (Auto) (19.3-51.7) % [place] % (Auto) (4.7-12.5) % Eos % (Auto) (0.7-5.8) Baso % (Auto) (0.1-1.2) % Neut # (Auto) (1.56-6.13) K/mm3 Lymph # (Auto) (1.18-3.74) K/mm3 [place] # (Auto) (0.24-0.36) K/mm3 Eos # (Auto) (0.04-0.36) K/mm3 Baso # (Auto) (0.01-0.08) K/mm3 Sodium (136-145) mEq/L Potassium (3.5-5.1) mEq/L Chloride (98-107) mEq/L Carbon Dioxide (21-32) mEq/L Anion Gap (5-15) BUN (7-18) mg/dL Creatinine (0.55-1.02) mg/dL Est Cr Clr Drug Dosing mL/min Estimated GFR (MDRD) (>60) mL/min BUN/Creatinine Ratio (14-18) Glucose (80-115) mg/dL Calcium (8.5-10.1) mg/dL Magnesium (1.8-2.4) mg/dl Total Bilirubin (0.2-1.0) mg/dL AST (15-37) U/L ALT (14-59) U/L Alkaline Phosphatase (46-116) U/L Troponin I (0.00-0.056) ng/mL Total Protein (6.4-8.2) g/dl Albumin (3.4-5.0) g/dl Globulin gm/dL Albumin/Globulin Ratio (1-2) Lipase (73-393) U/L TSH 3rd Generation (0.358-3.74) uIU/mL Urine Color (Yellow) Urine Appearance (Clear) Urine pH (5.0-8.0) Ur Specific [place] (1.005-1.030) Urine Protein (Negative) Urine Glucose (UA) (Negative) Urine Ketones (Negative) Urine Occult Blood (Negative) Urine Nitrite (Negative) Urine Bilirubin (Negative) Urine Urobilinogen (0.2-1.0) Ur Leukocyte Esterase (Negative) Salicylates (2.8-20) mg/dL Urine Opiates Screen (JQXOKL=977) Ur Buprenorphine Scrn (CUTOFF=10) Ur Oxycodone Screen (MDH5SV=284) Urine Methadone Screen (HVTNFT=752) Ur Propoxyphene Screen (JMMWVH=790) Acetaminophen (10-30) ug/mL Ur Barbiturates Screen (KUNTDG=599) Ur Tricyclics Screen (EMARXH=388) Ur Phencyclidine Scrn (CUTOFF=25) Ur Amphetamine Screen (MAKSJV=261) U Methamphetamines Scrn (BAZSLR=421) U Benzodiazepines Scrn (UHVJFW=980) U Cocaine Metab Screen (ZFFLSW=779) U Marijuana (THC) Screen (CUTOFF=50) Ethyl Alcohol 0.30 (0.00) gm% SARS-CoV-2 RNA (DODIE) Negative (NEGATIVE) Meds: Medications Generic Name Dose Route Start Last Admin Trade Name Freq PRN Reason Stop Dose Admin Dextrose/Lactated Ringer's 1,000 mls @ 999 mls/hr 04/13/20 12:00 04/13/20 12:44 Dextrose 5%-Lactated Ringers IV 999 mls/hr ASDIRECTED STEPHANE Administration Potassium Chloride 10 meq/ 100 mls @ 100 mls/hr 04/13/20 13:30 04/13/20 17:33 Premix IV 100 mls/hr ASDIRECTED STEPHANE Administration Dextrose/Lactated Ringer's 1,000 mls @ 150 mls/hr 04/13/20 17:15 04/13/20 17:16 Dextrose 5%-Lactated Ringers IV 150 mls/hr ASDIRECTED STEPHANE Administration Sodium Chloride 10 ml 04/13/20 11:53 04/13/20 12:44 Saline Flush FLUSH 10 ml ASDIRECTED PRN Administration Keep Vein Open Discontinued Medications Generic Name Dose Route Start Last Admin Trade Name Abelardo PRN Reason Stop Dose Admin Acetaminophen 975 mg 04/14/20 06:59 04/14/20 07:08 Tylenol PO 04/14/20 07:00 975 mg NOW ONE Administration Acetaminophen 650 mg 04/14/20 14:34 04/14/20 14:39 Tylenol PO 04/14/20 14:35 650 mg NOW ONE Administration Magnesium Sulfate 4 gm/ Premix 50 mls @ 12.5 mls/hr 04/13/20 13:28 04/13/20 14:12 IV 04/13/20 17:27 12.5 mls/hr ONETIME ONE Administration Lactated Ringer's 1,000 mls @ 999 mls/hr 04/13/20 13:44 04/13/20 14:12 Ringers, Lactated IV 04/13/20 14:44 400 mls/hr .BOLUS ONE Infusion Lorazepam 1 mg 04/13/20 15:14 04/13/20 15:23 Ativan PO 04/13/20 15:15 1 mg ONETIME ONE Administration Lorazepam 1 mg 04/13/20 18:42 04/13/20 18:57 Ativan PO 04/13/20 18:43 1 mg ONETIME ONE Administration Lorazepam 1 mg 04/13/20 23:17 04/13/20 23:20 Ativan IVPUSH 04/13/20 23:18 1 mg ONETIME ONE Administration Lorazepam 1 mg 04/14/20 03:03 04/14/20 03:54 Ativan IVPUSH 04/14/20 03:04 1 mg ONETIME ONE Administration Lorazepam 1 mg 04/14/20 13:32 04/14/20 13:45 Ativan PO 04/14/20 13:33 1 mg ONETIME ONE Administration Metoclopramide HCl 5 mg 04/13/20 11:53 04/13/20 12:44 Reglan IVPUSH 04/13/20 11:54 5 mg ONETIME ONE Administration Potassium Chloride 40 meq 04/13/20 13:28 04/13/20 14:16 Klor-Con M20 PO 04/13/20 13:29 40 meq ONETIME ONE Administration - Radiology Interpretation Free Text/Narrative:: Audible chest x-ray radiologist impression: 1. Chest appears improved from p rior study. 2. Nothing acute is appreciated. - Re-Assessments/Exams Free Text/Narrative Re-Assessment/Exam: 04/13/20 13:32 Labs reveal a WBC of 5.92, hemoglobin 11.1, hematocrit 35.9, platelet count 246, sodium 146, potassium 2.7, anion gap 13.7, BUN 7, creatinine 0.6, glucose 89, calcium 7.6, magnesium 1.6, AST 91, ALT 61, alk phos 136, troponin less than 0.017, total protein 5.7, albumin 3.0, lipase 89, TSH 0.760 Urinalysis unremarkable Salicylate level 0.1, acetaminophen level 0, urine drug screen negative, ethyl alcohol 0.42 I have ordered magnesium and potassium supplementation on this patient. Patient will also receive another liter of IV fluids. 04/13/20 17:10 [facility] pt had a repeat ETOH level. Pts second liter of IV fluids has been infused. I have ordered a third liter of D5LR to run at 150ml/hr 04/13/20 18:16 Pts repeat ETOH level is 0.30 04/14/20 13:39 We are still awaiting placement for this patient through [facility]. I have ordered for the patient received a milligram of Ativan p.o. to assist with detox of alcohol. 04/14/20 16:59 [facility] and guidelines it is unable to take this patient at their facility as patient is not continent. They are hoping to place the patient at [facility] however a bed is not available for her today. Per hospital management, they state the patient needs to be admitted as she cannot be in the ER any longer. I have called Dr. Mcfarlane regarding this patient and she has agreed to accept the patient as an admit into ICU inpatient. Departure - Departure Time of Disposition: 17:00 Disposition: DC/Tfer to [facility] Access [facility] Condition: Fair Clinical Impression: Alcohol withdrawal delirium, Chronic alcohol abuse - Discharge Information Referrals: Renard Verduzco MD [Primary Care Provider] - Forms: ED Department Discharge Sepsis Event Note (ED) - Evaluation Sepsis Screening Result: No Definite Risk - My Orders Last 24 Hours: My Active Orders 04/13/20 17:15 Dextrose 5%-Lactated Ringers 1,000 ml IV ASDIRECTED - Assessment/Plan Last 24 Hours: My Active Orders 04/13/20 17:15 Dextrose 5%-Lactated Ringers 1,000 ml IV ASDIRECTED
--- NOTE | 2020-04-13 12:44 | CR ---
Chest: Frontal view of the chest was obtained utilizing portable technique. Comparison: Prior chest x-ray of 03/17/20. Heart size and mediastinum are normal. Previous density within the chest is not appreciated on current study. Costophrenic angles are clear. Bony structures show slight scoliosis and osteopenia. Prior shoulder surgery is noted. Impression: 1. Chest appears improved from prior study. 2. Nothing acute is appreciated. Diagnostic code #2
--- NOTE | 2020-04-13 12:55 | PCM.SN.2 ---
- Free Text/Narrative Note: 04/13/20 IV started 22 guage left inner wrist area. Flushed well and secured. [place]
[2020-04-13 13:16] LABS: ACETAMINOPHEN 0 ug/mL (10-30)
[2020-04-13] MEDS ORDERED: Magnesium Sulfate/Water 4 GM in Premix Bag 1 BAG IV ONE (13:28)
[2020-04-13] MEDS ORDERED: Potassium Chloride 20 MEQ Tab.ER PO ONE (13:28)
[2020-04-13] MEDS ORDERED: Lactated Ringers 1,000 ML IV ONE (13:44)
[2020-04-13] MEDS: Potassium Chloride 10 MEQ in Premix Bag 1 BAG IV SCH ×4 (14:12→17:33)
[2020-04-13] MEDS ORDERED: LORazepam 1 MG Tab PO ONE ×2 (15:14→18:42)
[2020-04-13] MEDS ORDERED: LORazepam 2 MG/ML SDV IVPUSH ONE (23:17)
[2020-04-14] MEDS ORDERED: LORazepam 2 MG/ML SDV IVPUSH ONE (03:03)
[2020-04-14] MEDS ORDERED: Acetaminophen 325 MG Tab PO ONE ×2 (06:59→14:34)
[2020-04-14] MEDS ORDERED: LORazepam 1 MG Tab PO ONE (13:32)
--- NOTE | 2020-04-14 18:38 | PCM.HP.2 ---
H&P History of Present Illness - General Date of Service: 04/14/20 Admit Problem/Dx: Admission Diagnosis/Problem Admission Diagnosis/Problem Alcohol abuse Source of Information: Patient, Provider History Limitations: Reports: No Limitations - History of Present Illness Initial Comments - Free Text/Narative: 64 year old female with frequent admissions for ETOH/poorly kept social environment. A welfare check precipitated a ED visit. The patient was admitted with a CYNTHIA level of 0.42, after reportedly 36 hours, it dropped to 0.30. She will be admitted for treatment and placement. The primary focus, stabilize the patient medically for inpatient treatment. Presumably she has been admitted with the intention of less restrictive treatment. The plan was discussed with the ED provider and [facility] which reportedly had initially accepted her but declined after stool incontinence. Onset of Symptoms: Reports: Unknown/Unsure Duration of Symptoms: Reports: Day(s):, Getting Worse Quality: Reports: Same as Previous Episode Severity: Severe Improves with: Reports: Medication Worsens with: Reports: Other (alcohol) Associated Symptoms: Reports: No Other Symptoms Bilateral Knee Pain Score (Numeric/FACES): 6 - Related Data Allergies/Adverse Reactions: Allergies Allergy/AdvReac Type Severity Reaction Status Date / Time levofloxacin [From Levaquin] Allergy Severe Rash Verified 04/13/20 11:45 propoxyphene napsylate AdvReac Severe Headache Verified 04/13/20 11:45 [From Darvocet-N] Home Medications: Home Meds Fluticasone Propion/Salmeterol [Advair 250-50 Diskus] 1 puff IH DAILY 05/24/16 [History] atorvaSTATin [Lipitor] 20 mg PO DAILY 05/24/16 [History] Albuterol Sulfate [Albuterol Sulfate Hfa] 2 puff PO Q4HR PRN 12/22/18 [History] Omeprazole 20 mg PO ACBREAKFAST 12/22/18 [History] Potassium Chloride 20 meq PO DAILY 12/22/18 [History] Sucralfate [Carafate] 1 gm PO QID 12/22/18 [History] Folic Acid 1 mg PO DAILY #30 tablet 12/23/18 [Rx] Thiamine [Vitamin B-1] 100 mg PO BEDTIME #30 tab 12/23/18 [Rx] Cranberry Fruit Extract [Cranberry] 0 mg PO DAILY 04/01/19 [History] Lutein/Minerals/Vit A,C & E [Ocuvite] 1 tab PO DAILY 04/01/19 [History] Montelukast [Singulair] 10 mg PO BEDTIME 04/01/19 [History] Metoprolol Tartrate 12.5 mg PO BID #1 tablet 03/18/20 [Rx] Topiramate [Topamax] 75 mg PO BEDTIME #1 tab 03/18/20 [Rx] chlorproMAZINE [Thorazine] 50 mg PO BEDTIME #1 tab 03/18/20 [Rx] fluvoxaMINE [fluvoxaMINE Maleate] 50 mg PO BEDTIME #1 tablet 03/18/20 [Rx] DULoxetine [Cymbalta] 30 mg PO DAILY 04/14/20 [History] Losartan [Cozaar] 25 mg PO 04/14/20 [History] Mirtazapine 15 mg PO 04/14/20 [History] OLANZapine [Olanzapine] 10 mg PO 04/14/20 [History] Pantoprazole [ProTONIX] 40 mg PO 04/14/20 [History] atenoloL [Atenolol] 25 mg PO 04/14/20 [History] lamoTRIgine [Lamotrigine] 100 mg PO 04/14/20 [History] Past Medical History HEENT History: Reports: Impaired Vision Other HEENT History: wears glasses Cardiovascular History: Reports: High Cholesterol, Hypertension Respiratory History: Reports: Asthma Gastrointestinal History: Reports: GERD Genitourinary History: Reports: UTI, Recurrent [employer] WORK[employer] History: Reports: Other (See Below) Other OB/BYN History: Patient states she started menopause at 54 yoa Neurological History: Reports: Headaches, Chronic Other Neuro History: headaches Psychiatric History: Reports: Addiction, Anxiety, Bipolar, Depression, Eating Disorders Other Psychiatric History: eating disorder at age 14 Endocrine/Metabolic History: Reports: Osteoporosis Hematologic History: Reports: None Immunologic History: Reports: Other (See Below) Other Immunologic History: recurrent staph infections Oncologic (Cancer) History: Reports: None - Infectious Disease History Infectious Disease History: Reports: Chicken Pox, Measles, Mumps - Past Surgical History HEENT Surgical History: Reports: Adenoidectomy, Oral Surgery, Tonsillectomy, Other (See Below) Other HEENT Surgeries/Procedures: facial surgery to fractures on right side of face from fall. Cardiovascular Surgical History: Reports: None GI Surgical History: Reports: Appendectomy Other GI Surgeries/Procedures: GI bleed Other Female Surgeries/Procedures: Patient states she had her ureters dilated in college Musculoskeletal Surgical History: Reports: ORIF, Shoulder Surgery, Other (See Below) Other Musculoskeletal Surgeries/Procedures:: wrist ORIF Social & Family History - Family History Family Medical History: Unobtainable Cardiac: Reports: None - Tobacco Use Tobacco Use Status *Q: Never Tobacco User - Caffeine Use Caffeine Use: Reports: None Other Caffeine Use: Unknown if ever used due to being currently intoxicated. 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[employer]) H&P Review of Systems - Review of Systems: Review Of Systems: See Below General: Reports: Weakness HEENT: Reports: No Symptoms Pulmonary: Reports: No Symptoms Cardiovascular: Reports: No Symptoms Gastrointestinal: Reports: Anorexia Genitourinary: Reports: No Symptoms Musculoskeletal: Reports: No Symptoms Skin: Reports: No Symptoms Psychiatric: Reports: No Symptoms Neurological: Reports: No Symptoms Hematologic/Lymphatic: Reports: No Symptoms Immunologic: Reports: No Symptoms Exam - Exam Exam: See Below - Vital Signs Vital Signs: Last Vital Signs Temp 35.8 C L 04/13/20 11:36 Pulse 111 H 04/13/20 21:08 Resp 16 04/13/20 21:08 BP 144/72 H 04/13/20 21:08 Pulse Ox 95 04/13/20 21:08 Weight: 49.895 kg - Exam Quality Assessment: Supplemental Oxygen General: Alert, Oriented, Cooperative HEENT: Conjunctiva Clear, EOMI, Hearing Intact, Mucosa Moist & [place], Posterior Pharynx Clear, Pupils Equal, Pupils Reactive Neck: Trachea Midline Lungs: Normal Respiratory Effort, Decreased Breath Sounds Cardiovascular: Regular Rate, Regular Rhythm GI/Abdominal Exam: Normal Bowel Sounds, Soft, Non-Tender, No Organomegaly (Female) Exam: Deferred Back Exam: Normal Inspection Extremities: Normal Inspection, Normal Capillary Refill Skin: Warm Neurological: Cranial Nerves Intact Neuro Extensive - Mental Status: Alert, Normal Mood/Affect, Normal Cognition Neuro Extensive - Motor, Sensory, Reflexes: CN II-XII Intact Psychiatric: Alert, Anxious - Patient Data Lab Results Last 24 hrs: Laboratory Results - last 24 hr 04/13/20 Range/Units 18:40 SARS-CoV-2 RNA (DODIE) Negative (NEGATIVE) Result Diagrams: 04/13/20 12:38 04/15/20 05:07 Sepsis Event Note - Evaluation Sepsis Screening Result: No Definite Risk Problem List Initiated/Reviewed/Updated: Yes Orders Last 24hrs: Active Orders 24 hr Category Date Time Status Admission Status [Patient Status] [ADT] Routine ADT 04/14/20 17:01 Active Medication Orders Dextrose/Lactated Ringer's (Dextrose 5%-Lactated Ringers) 1,000 mls @ 999 mls/hr IV ASDIRECTED STEPHANE Last Admin: 04/13/20 12:44 Dose: 999 mls/hr Documented by: JORGE A Potassium Chloride 10 meq/ (Premix) 100 mls @ 100 mls/hr IV ASDIRECTED STEPHANE Last Admin: 04/13/20 17:33 Dose: 100 mls/hr Documented by: Infusion: 04/13/20 17:27 Dose: 100 mls/hr Documented by: Admin: 04/13/20 16:27 Dose: 100 mls/hr Documented by: Infusion: 04/13/20 16:24 Dose: 100 mls/hr Documented by: Admin: 04/13/20 15:24 Dose: 100 mls/hr Documented by: JORGE A Infusion: 04/13/20 15:12 Dose: 100 mls/hr Documented by: JORGE A Admin: 04/13/20 14:12 Dose: 100 mls/hr Documented by: JORGE A Dextrose/Lactated Ringer's (Dextrose 5%-Lactated Ringers) 1,000 mls @ 150 mls/hr IV ASDIRECTED STEPHANE Last Admin: 04/13/20 17:16 Dose: 150 mls/hr Documented by: JORGE A Sodium Chloride (Saline Flush) 10 ml FLUSH ASDIRECTED PRN PRN Reason: Keep Vein Open Last Admin: 04/13/20 12:44 Dose: 10 ml Documented by: HERMMIC Assessment/Plan Comment:: Impression: ETOH longstanding history, observed social needs eg lack of self care --> incontinent of stool, crawling on hands and knees to name 2 examples. Objective is placement via petition for less restrictive treatment. ETOH intoxication, BAL=0.42->0.3 before admission from the ED Social dilemma d/t living condition; s/p Welfare check Incontinent of stool Chronic Frequent unsuccessful detoxification programs Anxiety Bipolar disorder Depression HTN HLD GERD Plan: [facility] to assist in place, [facility] [place]. Less restrictive treatment, TBC. Replace electrolytes. Maintain home meds Await placement.` - Mortality Measure Prognosis:: Good
[2020-04-14] MEDS ORDERED: Albuterol 6.7 GM Inhaler INH PRN (18:39)
[2020-04-14] MEDS ORDERED: Atropine/Diphenoxylate 0.025-2.5 MG Tab PO PRN (18:42)
[2020-04-14] MEDS ORDERED: LORazepam 2 MG/ML SDV IVPUSH PRN (18:45)
[2020-04-14] MEDS: Sucralfate 1 GM Tab PO SCH (22:27)
[2020-04-14] MEDS: Thiamine 100 MG Tab PO SCH (22:27)
[2020-04-14] MEDS: Metoprolol Tartrate 25 MG Tab PO SCH (22:28)
[2020-04-14] MEDS: Montelukast 10 MG Tab PO SCH (22:28)
[2020-04-14] MEDS: Topiramate 25 MG Tab PO SCH (22:28)
[2020-04-14] MEDS: Acetaminophen 325 MG Tab PO PRN (22:29)
[2020-04-15] MEDS: fluvoxaMINE 50 MG Tab PO SCH ×2 (02:21→20:12)
[2020-04-15] MEDS: Acetaminophen 325 MG Tab PO PRN ×3 (04:42→23:32)
[2020-04-15] MEDS ORDERED: Non-Formulary Medication 1 Each (Omeprazole 20 MG) PO SCH (06:00)
[2020-04-15] MEDS: Pantoprazole 40 MG Tab.CR PO SCH (06:15)
[2020-04-15] MEDS: Formoterol/Mometasone 200-5 MCG 8.8 GM Inhaler IH SCH ×2 (08:11→21:03)
[2020-04-15] MEDS: Sucralfate 1 GM Tab PO SCH ×4 (08:16→20:12)
[2020-04-15] MEDS: Metoprolol Tartrate 25 MG Tab PO SCH ×2 (08:16→20:11)
[2020-04-15] MEDS: Folic Acid 1 MG Tab PO SCH (08:16)
[2020-04-15] MEDS ORDERED: Non-Formulary Medication 1 Each (Fluticasone/Salmeterol 1 PUFF) IH SCH (09:00)
--- NOTE | 2020-04-15 15:44 | PCM.PN ---
- General Info Date of Service: 04/15/20 Functional Status: Reports: Pain Controlled, Tolerating Diet, Ambulating - Review of Systems General: Reports: No Symptoms HEENT: Reports: No Symptoms Pulmonary: Reports: No Symptoms Cardiovascular: Reports: No Symptoms Gastrointestinal: Reports: No Symptoms Genitourinary: Reports: No Symptoms Musculoskeletal: Reports: No Symptoms - Patient Data Vitals - Most Recent: Last Vital Signs Temp 36.4 C 04/15/20 12:00 Pulse 101 H 04/15/20 12:00 Resp 20 04/15/20 12:00 BP 134/83 04/15/20 12:00 Pulse Ox 100 04/15/20 12:00 Weight - Most Recent: 56.336 kg I&O - Last 24 Hours: Intake & Output 04/15/20 04/15/20 04/15/20 06:59 14:59 22:59 Intake Total 600 870 Balance 600 870 Lab Results Last 24 Hours: Laboratory Results - last 24 hr 04/15/20 04/15/20 Range/Units 05:07 05:07 PT 10.9 (9.7-12.0) SECONDS INR 1.02 Sodium 138 (136-145) mEq/L Potassium 3.2 L (3.5-5.1) mEq/L Chloride 103 (98-107) mEq/L Carbon Dioxide 23 (21-32) mEq/L Anion Gap 15.2 H (5-15) BUN 7 (7-18) mg/dL Creatinine 0.6 (0.55-1.02) mg/dL Est Cr Clr Drug Dosing 86.46 mL/min Estimated GFR (MDRD) > 60 (>60) mL/min BUN/Creatinine Ratio 11.7 L (14-18) Glucose 100 (80-115) mg/dL Calcium 7.8 L (8.5-10.1) mg/dL Magnesium 1.5 L (1.8-2.4) mg/dl Triglycerides 141 (<150) mg/dL Cholesterol 131 (<200) mg/dL LDL Cholesterol Direct 31 (<100) mg/dL HDL Cholesterol 77.0 H (40-59) mg/dL Med Orders - Current: Current Medications Acetaminophen (Tylenol) 650 mg PO Q6H PRN PRN Reason: Pain (moderate 4-6) Last Admin: 04/15/20 04:42 Dose: 650 mg Documented by: Albuterol (Proventil Hfa) 0 gm INH Q4H PRN PRN Reason: Shortness of Breath Diphenoxylate HCl/Atropine (Lomotil 0.025-2.5 Mg) 1 tab PO BID PRN PRN Reason: Diarrhea Fluvoxamine Maleate (Fluvoxamine) 50 mg PO BEDTIME [facility] Last Admin: 04/15/20 02:21 Dose: Not Given Documented by: Folic Acid (Folic Acid) 1 mg PO DAILY [facility] Last Admin: 04/15/20 08:16 Dose: 1 mg Documented by: Dextrose/Lactated Ringer's (Dextrose 5%-Lactated Ringers) 1,000 mls @ 150 m ls/hr IV ASDIRECTED [facility] Last Admin: 04/13/20 17:16 Dose: 150 mls/hr Documented by: Lorazepam (Ativan) 1 mg IVPUSH Q4H PRN; Protocol PRN Reason: Withdrawal Symptoms Metoprolol Tartrate (Lopressor) 12.5 mg PO BID [facility] Last Admin: 04/15/20 08:16 Dose: 12.5 mg Documented by: Mometasone Furoate/Formoterol Fumar (Dulera 200-5 Mcg) 2 puff IH BID [facility] Last Admin: 04/15/20 08:11 Dose: 2 inhalation Documented by: Montelukast Sodium (Singulair) 10 mg PO BEDTIME [facility] Last Admin: 04/14/20 22:28 Dose: 10 mg Documented by: Pantoprazole Sodium (Protonix) 40 mg PO ACBREAKFAST [facility] Last Admin: 04/15/20 06:15 Dose: 40 mg Documented by: Sodium Chloride (Saline Flush) 10 ml FLUSH ASDIRECTED PRN PRN Reason: Keep Vein Open Last Admin: 04/13/20 12:44 Dose: 10 ml Documented by: Sucralfate (Carafate) 1 gm PO QID [facility] Last Admin: 04/15/20 13:20 Dose: 1 gm Documented by: Thiamine HCl (Vitamin B-1) 100 mg PO BEDTIME [facility] Last Admin: 04/14/20 22:27 Dose: 100 mg Documented by: Topiramate (Topamax) 75 mg PO BEDTIME [facility] Last Admin: 04/14/20 22:28 Dose: 75 mg Documented by: Discontinued Medications Acetaminophen (Tylenol) 975 mg PO NOW ONE Stop: 04/14/20 07:00 Last Admin: 04/14/20 07:08 Dose: 975 mg Documented by: Acetaminophen (Tylenol) 650 mg PO NOW ONE Stop: 04/14/20 14:35 Last Admin: 04/14/20 14:39 Dose: 650 mg Documented by: Dextrose/Lactated Ringer's (Dextrose 5%-Lactated Ringers) 1,000 mls @ 999 [facility]ls[facility] Last Admin: 04/13/20 12:44 Dose: 999 mls/hr Documented by: Magnesium Sulfate 4 gm/ Premix 50 mls @ 12.5 mls/hr IV ONETIME ONE Stop: 04/13/20 17:27 Last Admin: 04/13/20 14:12 Dose: 12.5 mls/hr Documented by: Potassium Chloride 10 meq/ (Premix) 100 mls @ 100 [facility]ls[facility] Last Admin: 04/13/20 17:33 Dose: 100 mls/hr Documented by: Lactated Ringer's (Ringers, Lactated) 1,000 mls @ 999 mls/hr IV .BOLUS ONE Stop: 04/13/20 14:44 Last Infusion: 04/13/20 14:12 Dose: 400 mls/hr Documented by: Lorazepam (Ativan) 1 mg PO ONETIME ONE Stop: 04/13/20 15:15 Last Admin: 04/13/20 15:23 Dose: 1 mg Documented by: Lorazepam (Ativan) 1 mg PO ONETIME ONE Stop: 04/13/20 18:43 Last Admin: 04/13/20 18:57 Dose: 1 mg Documented by: Lorazepam (Ativan) 1 mg IVPUSH ONETIME ONE Stop: 04/13/20 23:18 Last Admin: 04/13/20 23:20 Dose: 1 mg Documented by: Lorazepam (Ativan) 1 mg IVPUSH ONETIME ONE Stop: 04/14/20 03:04 Last Admin: 04/14/20 03:54 Dose: 1 mg Documented by: Lorazepam (Ativan) 1 mg PO ONETIME ONE Stop: 04/14/20 13:33 Last Admin: 04/14/20 13:45 Dose: 1 mg Documented by: Metoclopramide HCl (Reglan) 5 mg IVPUSH ONETIME ONE Stop: 04/13/20 11:54 Last Admin: 04/13/20 12:44 Dose: 5 mg Documented by: Potassium Chloride (Klor-Con M20) 40 meq PO ONETIME ONE Stop: 04/13/20 13:29 Last Admin: 04/13/20 14:16 Dose: 40 meq Documented by: - Exam Quality Assessment: DVT Prophylaxis General: Alert, Oriented, Cooperative, No Acute Distress HEENT: Pupils Equal, Pupils Reactive, EOMI Neck: Trachea Midline, No JVD Lungs: Normal Respiratory Effort Cardiovascular: Regular Rate, Regular Rhythm GI/Abdominal Exam: Normal Bowel Sounds, Soft, Non-Tender, No Distention (Female) Exam: Deferred Back Exam: Normal Inspection Extremities: Normal Inspection, Normal Capillary Refill Skin: Warm Neurological: No New Focal Deficit, Normal Speech Psy/Mental Status: Alert - Patient Data Lab Results Last 24 hrs: Laboratory Results - last 24 hr 04/15/20 04/15/20 Range/Units 05:07 05:07 PT 10.9 (9.7-12.0) SECONDS INR 1.02 Sodium 138 (136-145) mEq/L Potassium 3.2 L (3.5-5.1) mEq/L Chloride 103 (98-107) mEq/L Carbon Dioxide 23 (21-32) mEq/L Anion Gap 15.2 H (5-15) BUN 7 (7-18) mg/dL Creatinine 0.6 (0.55-1.02) mg/dL Est Cr Clr Drug Dosing 86.46 mL/min Estimated GFR (MDRD) > 60 (>60) mL/min BUN/Creatinine Ratio 11.7 L (14-18) Glucose 100 (80-115) mg/dL Calcium 7.8 L (8.5-10.1) mg/dL Magnesium 1.5 L (1.8-2.4) mg/dl Triglycerides 141 (<150) mg/dL Cholesterol 131 (<200) mg/dL LDL Cholesterol Direct 31 (<100) mg/dL HDL Cholesterol 77.0 H (40-59) mg/dL Result Diagrams: 04/13/20 12:38 04/15/20 05:07 Sepsis Event Note - Evaluation Sepsis Screening Result: No Definite Risk - Focused Exam Vital Signs: Vital Signs Temp Pulse Pulse Resp BP BP Pulse Ox 04/15/20 12:00 36.4 C 101 H 20 134/83 100 04/15/20 08:16 109 H 144/110 H 04/15/20 08:12 04/15/20 08:00 36.1 C 105 H 18 144/110 H 99 04/15/20 04:00 36.4 C 19 128/84 97 Pulse Ox 04/15/20 12:00 04/15/20 08:16 04/15/20 08:12 98 04/15/20 08:00 04/15/20 04:00 - Problem List Review Problem List Initiated/Reviewed/Updated: Yes - My Orders Last 24 Hours: My Active Orders 04/14/20 18:38 Code Status [Resuscitation Status] Routine 04/14/20 18:39 Activity as Tolerated [RC] .Routine Vital Signs [RC] Q4HR Albuterol [Proventil HFA] 0 gm INH Q4H PRN 04/14/20 18:41 RT Post Treatment Assessment [RC] Click to Edit 04/14/20 18:42 Antiembolic Devices [RC] Atropine/Diphenoxylate [Lomotil 0.025-2.5 MG] 1 tab PO BID PRN JONATAN Hose [Antiembolic Hose] [OM.PC] Routine 04/14/20 18:44 CIWAA Assessment [RC] Q1HR 04/14/20 18:45 LORazepam [Ativan] 1 mg IVPUSH Q4H PRN 04/14/20 18:48 Consult to Case Management/Tonger [CONS] Routine 04/14/20 21:00 Metoprolol Tartrate [Lopressor] 12.5 mg PO BID Montelukast [Singulair] 10 mg PO BEDTIME Sucralfate [Carafate] 1 gm PO QID Thiamine [Vitamin B-1] 100 mg PO BEDTIME Topiramate [Topamax] 75 mg PO BEDTIME 04/14/20 21:31 Acetaminophen [TylenoL] 650 mg PO Q6H PRN 04/14/20 22:15 fluvoxaMINE 50 mg PO BEDTIME 04/15/20 06:00 Pantoprazole [ProTONIX] 40 mg PO ACBREAKFAST 04/15/20 Breakfast Regular Diet [DIET] 04/15/20 09:00 Folic Acid 1 mg PO DAILY Mometasone/Formoterol [Dulera 200-5 MCG] 2 puff IH BID 04/16/20 06:00 BMP [BASIC METABOLIC PANEL,BMP] [CHEM] DAILY MAGNESIUM [CHEM] DAILY 04/17/20 06:00 BMP [BASIC METABOLIC PANEL,BMP] [CHEM] DAILY MAGNESIUM [CHEM] DAILY 04/18/20 06:00 BMP [BASIC METABOLIC PANEL,BMP] [CHEM] DAILY MAGNESIUM [CHEM] DAILY - Plan Plan:: Impression: ETOH longstanding history, observed social needs eg lack of self care --> incontinent of stool, crawling on hands and knees to name 2 examples. Objective is placement via petition for less restrictive treatment. ETOH intoxication, BAL=0.42->0.3 before admission from the ED Social dilemma d/t living condition; s/p Welfare check Incontinent of stool Chronic Frequent unsuccessful detoxification programs Anxiety Bipolar disorder Depression HTN HLD GERD Plan: PT/OT cons[place] [facility] [place] [facility] [place] treatment, TBC. Replace electrolytes. Maintain home meds Await placement; anticipate next week on Mon or .
[2020-04-15] MEDS: Topiramate 25 MG Tab PO SCH (20:11)
[2020-04-15] MEDS: Thiamine 100 MG Tab PO SCH (20:11)
[2020-04-15] MEDS: Montelukast 10 MG Tab PO SCH (20:12)
[2020-04-16] MEDS: Pantoprazole 40 MG Tab.CR PO SCH (06:21)
[2020-04-16] MEDS: Acetaminophen 325 MG Tab PO PRN ×2 (07:26→14:20)
[2020-04-16] MEDS: Formoterol/Mometasone 200-5 MCG 8.8 GM Inhaler IH SCH ×2 (08:12→20:36)
[2020-04-16] MEDS: Metoprolol Tartrate 25 MG Tab PO SCH (08:19)
[2020-04-16] MEDS: Folic Acid 1 MG Tab PO SCH (08:19)
[2020-04-16] MEDS: Sucralfate 1 GM Tab PO SCH ×4 (08:20→20:20)
[2020-04-16] MEDS: Atropine/Diphenoxylate 0.025-2.5 MG Tab PO PRN ×2 (13:10→18:44)
--- NOTE | 2020-04-16 17:40 | PCM.PN ---
- General Info Date of Service: 04/16/20 Subjective Update: Patient had stool incontinence, discovered that she has been ordering 2 trays of food and a snack. This has been DCd. Lomotil has also been increased to addres s the episodes of diarrhea/stool incontinence. Functional Status: Reports: Tolerating Diet, Ambulating, Urinating - Review of Systems General: Reports: No Symptoms HEENT: Reports: No Symptoms Pulmonary: Reports: No Symptoms Cardiovascular: Reports: No Symptoms Gastrointestinal: Reports: No Symptoms Genitourinary: Reports: No Symptoms Musculoskeletal: Reports: No Symptoms Skin: Reports: No Symptoms Neurological: Reports: No Symptoms Psychiatric: Reports: No Symptoms - Patient Data Vitals - Most Recent: Last Vital Signs Temp 37.1 C 04/16/20 16:00 Pulse 121 H 04/16/20 08:19 Resp 20 04/16/20 16:00 BP 127/86 04/16/20 16:00 Pulse Ox 98 04/16/20 16:00 Weight - Most Recent: 54.975 kg I&O - Last 24 Hours: Intake & Output 04/16/20 04/16/20 04/16/20 06:59 14:59 22:59 Intake Total 640 960 Balance 640 960 Lab Results Last 24 Hours: Laboratory Results - last 24 hr 04/16/20 Range/Units 05:15 Sodium 137 (136-145) mEq/L Potassium 3.6 (3.5-5.1) mEq/L Chloride 103 (98-107) mEq/L Carbon Dioxide 20 L (21-32) mEq/L Anion Gap 17.6 H (5-15) BUN 12 (7-18) mg/dL Creatinine 0.6 (0.55-1.02) mg/dL Est Cr Clr Drug Dosing 84.37 mL/min Estimated GFR (MDRD) > 60 (>60) mL/min BUN/Creatinine Ratio 20.0 H (14-18) Glucose 97 (80-115) mg/dL Calcium 8.3 L (8.5-10.1) mg/dL Magnesium 1.4 L (1.8-2.4) mg/dl Med Orders - Current: Current Medications Acetaminophen (Tylenol) 650 mg PO Q6H PRN PRN Reason: Pain (moderate 4-6) Last Admin: 04/16/20 14:20 Dose: 650 mg Documented by: Albuterol (Proventil Hfa) 0 gm INH Q4H PRN PRN Reason: Shortness of Breath Diphenoxylate HCl/Atropine (Lomotil 0.025-2.5 Mg) 1 tab PO QID PRN PRN Reason: Diarrhea Last Admin: 04/16/20 13:10 Dose: 1 tab Documented by: Fluvoxamine Maleate (Fluvoxamine) 50 mg PO BEDTIME [facility] Last Admin: 04/15/20 20:12 Dose: 50 mg Documented by: Folic Acid (Folic Acid) 1 mg PO DAILY [facility] Last Admin: 04/16/20 08:19 Dose: 1 mg Documented by: Dextrose/Lactated Ringer's (Dextrose 5%-Lactated Ringers) 1,000 mls @ 150 mls/hr IV ASDIRECTED [facility] Last Admin: 04/13/20 17:16 Dose: 150 mls/hr Documented by: Lorazepam (Ativan) 1 mg IVPUSH Q4H PRN; Protocol PRN Reason: Withdrawal Symptoms Metoprolol Tartrate (Lopressor) 50 mg PO BID [facility] Mometasone Furoate/Formoterol Fumar (Dulera 200-5 Mcg) 2 puff IH BID [facility] Last Admin: 04/16/20 08:12 Dose: 2 inhalation Documented by: Montelukast Sodium (Singulair) 10 mg PO BEDTIME [facility] Last Admin: 04/15/20 20:12 Dose: 10 mg Documented by: Pantoprazole Sodium (Protonix) 40 mg PO ACBREAKFAST [facility] Last Admin: 04/16/20 06:21 Dose: 40 mg Documented by: Sodium Chloride (Saline Flush) 10 ml FLUSH ASDIRECTED PRN PRN Reason: Keep Vein Open Last Admin: 04/13/20 12:44 Dose: 10 ml Documented by: Sucralfate (Carafate) 1 gm PO QID [facility] Last Admin: 04/16/20 16:57 Dose: 1 gm Documented by: Thiamine HCl (Vitamin B-1) 100 mg PO BEDTIME [facility] Last Admin: 04/15/20 20:11 Dose: 100 mg Documented by: Topiramate (Topamax) 75 mg PO BEDTIME [facility] Last Admin: 04/15/20 20:11 Dose: 75 mg Documented by: Discontinued Medications Acetaminophen (Tylenol) 975 mg PO NOW ONE Stop: 04/14/20 07:00 Last Admin: 04/14/20 07:08 Dose: 975 mg Documented by: Acetaminophen (Tylenol) 650 mg PO NOW ONE Stop: 04/14/20 14:35 Last Admin: 04/14/20 14:39 Dose: 650 mg Documented by: Diphenoxylate HCl/Atropine (Lomotil 0.025-2.5 Mg) 1 tab PO BID PRN PRN Reason: Diarrhea Last Admin: 04/16/20 01:48 Dose: 1 tab Documented by: Dextrose/Lactated Ringer's (Dextrose 5%-Lactated Ringers) 1,000 mls [facility] Admin: 04/13/20 12:44 Dose: 999 mls/hr Documented by: Magnesium Sulfate 4 gm/ Premix 50 mls @ 12.5 mls/hr IV ONETIME ONE Stop: 04/13/20 17:27 Last Admin: 04/13/20 14:12 Dose: 12.5 mls/hr Documented by: Potassium Chloride 10 meq/ (Premix) 100 mls [facility] Last Admin: 04/13/20 17:33 Dose: 100 mls/hr Documented by: Lactated Ringer's (Ringers, Lactated) 1,000 mls @ 999 mls/hr IV .BOLUS ONE Stop: 04/13/20 14:44 Last Infusion: 04/13/20 14:12 Dose: 400 mls/hr Documented by: Lorazepam (Ativan) 1 mg PO ONETIME ONE Stop: 04/13/20 15:15 Last Admin: 04/13/20 15:23 Dose: 1 mg Documented by: Lorazepam (Ativan) 1 mg PO ONETIME ONE Stop: 04/13/20 18:43 Last Admin: 04/13/20 18:57 Dose: 1 mg Documented by: Lorazepam (Ativan) 1 mg IVPUSH ONETIME ONE Stop: 04/13/20 23:18 Last Admin: 04/13/20 23:20 Dose: 1 mg Documented by: Lorazepam (Ativan) 1 mg IVPUSH ONETIME ONE Stop: 04/14/20 03:04 Last Admin: 04/14/20 03:54 Dose: 1 mg Documented by: Lorazepam (Ativan) 1 mg PO ONETIME ONE Stop: 04/14/20 13:33 Last Admin: 04/14/20 13:45 Dose: 1 mg Documented by: Metoclopramide HCl (Reglan) 5 mg IVPUSH ONETIME ONE Stop: 04/13/20 11:54 Last Admin: 04/13/20 12:44 Dose: 5 mg Documented by: Metoprolol Tartrate (Lopressor) 12.5 mg PO BID [facility] Last Admin: 04/15/20 08:16 Dose: 12.5 mg Documented by: Metoprolol Tartrate (Lopressor) 25 mg PO BID [facility] Last Admin: 04/16/20 08:19 Dose: 25 mg Documented by: Potassium Chloride (Klor-Con M20) 40 meq PO ONETIME ONE Stop: 04/13/20 13:29 Last Admin: 04/13/20 14:16 Dose: 40 meq Documented by: - Exam Quality Assessment: DVT Prophylaxis General: Alert, Oriented HEENT: Pupils Equal, Pupils Reactive, EOMI Neck: Trachea Midline, No JVD Lungs: Clear to Auscultation, Normal Respiratory Effort Cardiovascular: Regular Rate, Regular Rhythm GI/Abdominal Exam: Normal Bowel Sounds, Soft, Non-Tender, No Distention (Female) Exam: Deferred Back Exam: Normal Inspection Extremities: Normal Inspection Skin: Warm Neurological: No New Focal Deficit Psy/Mental Status: Alert - Patient Data Lab Results Last 24 hrs: Laboratory Results - last 24 hr 04/16/20 Range/Units 05:15 Sodium 137 (136-145) mEq/L Potassium 3.6 (3.5-5.1) mEq/L Chloride 103 (98-107) mEq/L Carbon Dioxide 20 L (21-32) mEq/L Anion Gap 17.6 H (5-15) BUN 12 (7-18) mg/dL Creatinine 0.6 (0.55-1.02) mg/dL Est Cr Clr Drug Dosing 84.37 mL/min Estimated GFR (MDRD) > 60 (>60) mL/min BUN/Creatinine Ratio 20.0 H (14-18) Glucose 97 (80-115) mg/dL Calcium 8.3 L (8.5-10.1) mg/dL Magnesium 1.4 L (1.8-2.4) mg/dl Result Diagrams: 04/13/20 12:38 04/16/20 05:15 Sepsis Event Note - Evaluation Sepsis Screening Result: No Definite Risk - Focused Exam Vital Signs: Vital Signs Temp Pulse Resp BP BP Pulse Ox Pulse Ox 04/16/20 16:00 37.1 C 20 127/86 98 04/16/20 12:00 36.9 C 20 128/80 97 04/16/20 08:33 97 04/16/20 08:19 121 H 132/82 04/16/20 08:00 36.7 C 20 132/82 98 - Problem List Review Problem List Initiated/Reviewed/Updated: Yes - My Orders Last 24 Hours: My Active Orders 04/16/20 11:44 Patient Status [ADT] Routine 04/16/20 12:21 Atropine/Diphenoxylate [Lomotil 0.025-2.5 MG] 1 tab PO QID PRN 04/16/20 21:00 Metoprolol Tartrate [Lopressor] 50 mg PO BID 04/17/20 06:00 BMP [BASIC METABOLIC PANEL,BMP] [CHEM] DAILY MAGNESIUM [CHEM] DAILY 04/18/20 06:00 BMP [BASIC METABOLIC PANEL,BMP] [CHEM] DAILY MAGNESIUM [CHEM] DAILY - Plan Plan:: Impression: ETOH longstanding history, observed social needs eg lack of self care --> incont inent of stool, crawling on hands and knees to name 2 examples. Objective is placement via petition for less restrictive treatment. ETOH intoxication, BAL=0.42->0.3 before admission from the ED Social dilemma d/t living condition; s/p Welfare check Incontinent of stool Chronic Frequent unsuccessful detoxification programs Anxiety Bipolar disorder Depression HTN HLD GERD Plan: PT/OT consults UP IN CHAIR TID Lomotil dose change Decrease number of food trays to 1 TID. [facility] to assist in place, [facility] [place], [place]. Less restrictive treatment, TBC. Replace electrolytes. Maintain home meds Await placement; anticipate next week on Mon or .
[2020-04-16] MEDS: Topiramate 25 MG Tab PO SCH (20:21)
[2020-04-16] MEDS: Montelukast 10 MG Tab PO SCH (20:22)
[2020-04-16] MEDS: Metoprolol Tartrate 50 MG Tab PO SCH (20:22)
[2020-04-16] MEDS: Thiamine 100 MG Tab PO SCH (20:22)
[2020-04-16] MEDS: fluvoxaMINE 50 MG Tab PO SCH (20:23)
[2020-04-17] MEDS: Atropine/Diphenoxylate 0.025-2.5 MG Tab PO PRN ×3 (01:19→12:54)
[2020-04-17] MEDS: Pantoprazole 40 MG Tab.CR PO SCH (06:09)
--- NOTE | 2020-04-17 07:44 | PCM.PN ---
- General Info Date of Service: 04/17/20 Subjective Update: Patient has had less accidents, and has been making it safely to the bathroom for a bowel movement. She can no longer have several trays of food and snacks. Questran will be added to add bulk to her stools. Lomotil is prn, and remains unchanged. Functional Status: Reports: Tolerating Diet, Ambulating, Urinating - Review of Systems General: Reports: No Symptoms HEENT: Reports: No Symptoms Pulmonary: Reports: No Symptoms Cardiovascular: Reports: No Symptoms Gastrointestinal: Reports: No Symptoms Genitourinary: Reports: No Symptoms Musculoskeletal: Reports: No Symptoms Skin: Reports: No Symptoms Neurological: Reports: No Symptoms Psychiatric: Reports: No Symptoms - Patient Data Vitals - Most Recent: Last Vital Signs Temp 36.6 C 04/17/20 04:00 Pulse 87 04/17/20 04:00 Resp 16 04/17/20 04:00 BP 118/76 04/17/20 04:00 Pulse Ox 97 04/17/20 04:00 Weight - Most Recent: 54.975 kg I&O - Last 24 Hours: Intake & Output 04/16/20 04/17/20 04/17/20 22:59 06:59 14:59 Intake Total 1520 400 Balance 1520 400 Lab Results Last 24 Hours: Laboratory Results - last 24 hr 04/17/20 Range/Units 04:40 Sodium 137 (136-145) mEq/L Potassium 3.6 (3.5-5.1) mEq/L Chloride 104 (98-107) mEq/L Carbon Dioxide 19 L (21-32) mEq/L Anion Gap 17.6 H (5-15) BUN 17 (7-18) mg/dL Creatinine 0.6 (0.55-1.02) mg/dL Est Cr Clr Drug Dosing 84.37 mL/min Estimated GFR (MDRD) > 60 (>60) mL/min BUN/Creatinine Ratio 28.3 H (14-18) Glucose 93 (80-115) mg/dL Calcium 8.4 L (8.5-10.1) mg/dL Magnesium 1.3 L (1.8-2.4) mg/dl Med Orders - Current: Current Medications Acetaminophen (Tylenol) 650 mg PO Q6H PRN PRN Reason: Pain (moderate 4-6) Last Admin: 04/16/20 14:20 Dose: 650 mg Documented by: Albuterol (Proventil Hfa) 0 gm INH Q4H PRN PRN Reason: Shortness of Breath Diphenoxylate HCl/Atropine (Lomotil 0.025-2.5 Mg) 1 tab PO QID PRN PRN Reason: Diarrhea Last Admin: 04/17/20 01:19 Dose: 1 tab Documented by: Fluvoxamine Maleate (Fluvoxamine) 50 mg PO BEDTIME [facility] Last Admin: 04/16/20 20:23 Dose: 50 mg Documented by: Folic Acid (Folic Acid) 1 mg PO DAILY [facility] Last Admin: 04/16/20 08:19 Dose: 1 mg Documented by: Dextrose/Lactated Ringer's (Dextrose 5%-Lactated Ringers) 1,000 mls @ 150 mls/hr IV ASDIRECTED [facility] Last Admin: 04/13/20 17:16 Dose: 150 mls/hr Documented by: Lorazepam (Ativan) 1 mg IVPUSH Q4H PRN; Protocol PRN Reason: Withdrawal Symptoms Metoprolol Tartrate (Lopressor) 50 mg PO BID [facility] Last Admin: 04/16/20 20:22 Dose: 50 mg Documented by: Mometasone Furoate/Formoterol Fumar (Dulera 200-5 Mcg) 2 puff IH BID [facility] Last Admin: 04/16/20 20:36 Dose: 2 inhalation Documented by: Montelukast Sodium (Singulair) 10 mg PO BEDTIME [facility] Last Admin: 04/16/20 20:22 Dose: 10 mg Documented by: Pantoprazole Sodium (Protonix) 40 mg PO ACBREAKFAST [facility] Last Admin: 04/17/20 06:09 Dose: 40 mg Documented by: Sodium Chloride (Saline Flush) 10 ml FLUSH ASDIRECTED PRN PRN Reason: Keep Vein Open Last Admin: 04/13/20 12:44 Dose: 10 ml Documented by: Sucralfate (Carafate) 1 gm PO QID [facility] Last Admin: 04/16/20 20:20 Dose: 1 gm Documented by: Thiamine HCl (Vitamin B-1) 100 mg PO BEDTIME [facility] Last Admin: 04/16/20 20:22 Dose: 100 mg Documented by: Topiramate (Topamax) 75 mg PO BEDTIME [facility] Last Admin: 04/16/20 20:21 Dose: 75 mg Documented by: Discontinued Medications Acetaminophen (Tylenol) 975 mg PO NOW ONE Stop: 04/14/20 07:00 Last Admin: 04/14/20 07:08 Dose: 975 mg Documented by: Acetaminophen (Tylenol) 650 mg PO NOW ONE Stop: 04/14/20 14:35 Last Admin: 04/14/20 14:39 Dose: 650 mg Documented by: Diphenoxylate HCl/Atropine (Lomotil 0.025-2.5 Mg) 1 tab PO BID PRN PRN Reason: Diarrhea Last Admin: 04/16/20 01:48 Dose: 1 tab Documented by: Dextrose/Lactated Ringer's (Dextrose 5%-Lactated Ringers) 1,000 mls @ [facility] Admin: 04/13/20 12:44 Dose: 999 mls/hr Documented by: Magnesium Sulfate 4 gm/ Premix 50 mls @ 12.5 mls/hr IV ONETIME ONE Stop: 04/13/20 17:27 Last Admin: 04/13/20 14:12 Dose: 12.5 mls/hr Documented by: Potassium Chloride 10 meq/ (Premix) 100 mls @ 100 [facility] Last Admin: 04/13/20 17:33 Dose: 100 mls/hr Documented by: Lactated Ringer's (Ringers, Lactated) 1,000 mls @ 999 mls/hr IV .BOLUS ONE Stop: 04/13/20 14:44 Last Infusion: 04/13/20 14:12 Dose: 400 mls/hr Documented by: Lorazepam (Ativan) 1 mg PO ONETIME ONE Stop: 04/13/20 15:15 Last Admin: 04/13/20 15:23 Dose: 1 mg Documented by: Lorazepam (Ativan) 1 mg PO ONETIME ONE Stop: 04/13/20 18:43 Last Admin: 04/13/20 18:57 Dose: 1 mg Documented by: Lorazepam (Ativan) 1 mg IVPUSH ONETIME ONE Stop: 04/13/20 23:18 Last Admin: 04/13/20 23:20 Dose: 1 mg Documented by: Lorazepam (Ativan) 1 mg IVPUSH ONETIME ONE Stop: 04/14/20 03:04 Last Admin: 04/14/20 03:54 Dose: 1 mg Documented by: Lorazepam (Ativan) 1 mg PO ONETIME ONE Stop: 04/14/20 13:33 Last Admin: 04/14/20 13:45 Dose: 1 mg Documented by: Metoclopramide HCl (Reglan) 5 mg IVPUSH ONETIME ONE Stop: 04/13/20 11:54 Last Admin: 04/13/20 12:44 Dose: 5 mg Documented by: Metoprolol Tartrate (Lopressor) 12.5 mg PO BID [facility] Last Admin: 04/15/20 08:16 Dose: 12.5 mg Documented by: Metoprolol Tartrate (Lopressor) 25 mg PO BID [facility] Last Admin: 04/16/20 08:19 Dose: 25 mg Documented by: Potassium Chloride (Klor-Con M20) 40 meq PO ONETIME ONE Stop: 04/13/20 13:29 Last Admin: 04/13/20 14:16 Dose: 40 meq Documented by: - Exam General: Alert, Oriented, Cooperative, No Acute Distress HEENT: Pupils Equal, Pupils Reactive, EOMI Neck: Trachea Midline Lungs: Clear to Auscultation, Normal Respiratory Effort Cardiovascular: Regular Rate, Regular Rhythm GI/Abdominal Exam: Normal Bowel Sounds, Soft, Non-Tender (Female) Exam: Deferred Back Exam: Normal Inspection Extremities: Normal Inspection, Normal Capillary Refill Skin: Warm Neurological: No New Focal Deficit Psy/Mental Status: Alert - Patient Data Lab Results Last 24 hrs: Laboratory Results - last 24 hr 04/17/20 Range/Units 04:40 Sodium 137 (136-145) mEq/L Potassium 3.6 (3.5-5.1) mEq/L Chloride 104 (98-107) mEq/L Carbon Dioxide 19 L (21-32) mEq/L Anion Gap 17.6 H (5-15) BUN 17 (7-18) mg/dL Creatinine 0.6 (0.55-1.02) mg/dL Est Cr Clr Drug Dosing 84.37 mL/min Estimated GFR (MDRD) > 60 (>60) mL/min BUN/Creatinine Ratio 28.3 H (14-18) Glucose 93 (80-115) mg/dL Calcium 8.4 L (8.5-10.1) mg/dL Magnesium 1.3 L (1.8-2.4) mg/dl Result Diagrams: 04/13/20 12:38 04/17/20 04:40 Sepsis Event Note - Evaluation Sepsis Screening Result: No Definite Risk - Focused Exam Vital Signs: Vital Signs Temp Pulse Pulse Resp BP BP Pulse Ox 04/17/20 04:00 36.6 C 87 16 118/76 97 04/17/20 00:00 36.3 C 91 18 125/83 98 04/16/20 20:22 110 H 125/83 04/16/20 20:00 37.1 C 108 H 18 125/83 98 - Problem List Review Problem List Initiated/Reviewed/Updated: Yes - My Orders Last 24 Hours: My Active Orders 04/16/20 11:44 Patient Status [ADT] Routine 04/16/20 12:21 Atropine/Diphenoxylate [Lomotil 0.025-2.5 MG] 1 tab PO QID PRN 04/16/20 21:00 Metoprolol Tartrate [Lopressor] 50 mg PO BID 04/18/20 06:00 BMP [BASIC METABOLIC PANEL,BMP] [CHEM] DAILY MAGNESIUM [CHEM] DAILY - Plan Plan:: Impression: ETOH longstanding history, observed social needs eg lack of self care --> incontinent of stool, crawling on hands and knees to name 2 examples. Objective is placement via petition for less restrictive treatment. ETOH intoxication, BAL=0.42->0.3 before admission from the ED Social dilemma d/t living condition; s/p Welfare check Incontinent of stool Chronic Frequent unsuccessful detoxification programs Anxiety Bipolar disorder Depression HTN HLD GERD Plan: Questmichelet added for stool bulk PT/OT consults UP IN CHAIR TID Lomotil dose change Decrease number of food trays to 1 TID. [facility] to assist in place, [facility]. Less restrictive treatment, TBC. Replace electrolytes. Maintain home meds Await placement; anticipate next week on Mon or .
[2020-04-17] MEDS: Metoprolol Tartrate 50 MG Tab PO SCH ×2 (08:11→20:23)
[2020-04-17] MEDS: Sucralfate 1 GM Tab PO SCH ×4 (08:11→20:22)
[2020-04-17] MEDS: Folic Acid 1 MG Tab PO SCH (08:12)
[2020-04-17] MEDS: Formoterol/Mometasone 200-5 MCG 8.8 GM Inhaler IH SCH ×2 (08:16→21:25)
[2020-04-17] MEDS: Acetaminophen 325 MG Tab PO PRN (15:17)
[2020-04-17] MEDS ORDERED: Loperamide 2 MG Cap PO PRN (17:21)
[2020-04-17] MEDS ORDERED: Atropine/Diphenoxylate 0.025-2.5 MG Tab PO PRN (17:23)
[2020-04-17] MEDS: Topiramate 25 MG Tab PO SCH (20:21)
[2020-04-17] MEDS: Thiamine 100 MG Tab PO SCH (20:21)
[2020-04-17] MEDS: fluvoxaMINE 50 MG Tab PO SCH (20:22)
[2020-04-17] MEDS: Montelukast 10 MG Tab PO SCH (20:23)
[2020-04-18] MEDS: Pantoprazole 40 MG Tab.CR PO SCH (06:11)
[2020-04-18] MEDS ORDERED: Magnesium Sulfate/Water 4 GM in Premix Bag 1 BAG IV ONE (08:00)
[2020-04-18] MEDS ORDERED: Cholestyramine/Sucrose Powder 4 GM Packet PO SCH (09:00)
[2020-04-18] MEDS: Sucralfate 1 GM Tab PO SCH ×4 (09:14→20:47)
[2020-04-18] MEDS: Formoterol/Mometasone 200-5 MCG 8.8 GM Inhaler IH SCH ×2 (09:14→20:05)
[2020-04-18] MEDS: Metoprolol Tartrate 50 MG Tab PO SCH ×2 (09:14→20:47)
[2020-04-18] MEDS: Folic Acid 1 MG Tab PO SCH (09:15)
--- NOTE | 2020-04-18 10:09 | PCM.PN ---
- General Info Date of Service: 04/18/20 Admission Dx/Problem (Free Text): Admission Diagnosis/Problem Admission Diagnosis/Problem Alcohol abuse Subjective Update: In to see "Gadiel." She reports she feels much better. Continues to have some mild diarrhea but it is much improved. Denies any other symptoms. She does get somewhat tearful when talking about her mother. She reports that she is up for what ever we need to do to get her better as she knows she cannot handle this on her own. CIWA assessment over the past 24 hours has been 0-3. [place] is reportedly working on discharge plan [facility]. Hopeful for discharge within 24 hours with transport provided by [facility]'s office. Functional Status: Reports: Pain Controlled, Tolerating Diet, Ambulating, Urinating. Denies: New Symptoms - Review of Systems General: Reports: No Symptoms. Denies: Fever, Weakness, Fatigue, Malaise, Chills HEENT: Reports: No Symptoms. Denies: Headaches, Sore Throat Pulmonary: Reports: No Symptoms. Denies: Shortness of Breath, Cough, Sputum, Wheezing Cardiovascular: Reports: No Symptoms. Denies: Chest Pain, Palpitations, Dyspnea on Exertion Gastrointestinal: Reports: Diarrhea (Mild - greatly improved ). Denies: Abdominal Pain, Constipation, Nausea, Vomiting Genitourinary: Reports: No Symptoms. Denies: Pain Musculoskeletal: Reports: No Symptoms Skin: Reports: No Symptoms. Denies: Cyanosis Neurological: Reports: No Symptoms. Denies: Confusion, Pre-Existing Deficit, Difficulty Walking, Weakness, Gait Disturbance Psychiatric: Reports: No Symptoms - Patient Data Vitals - Most Recent: Last Vital Signs Temp 97.3 F 04/18/20 03:00 Pulse 86 04/18/20 09:14 Resp 16 04/18/20 03:00 BP 129/66 04/18/20 09:14 Pulse Ox 97 04/18/20 03:00 Weight - Most Recent: 118 lb 8 oz I&O - Last 24 Hours: Intake & Output 04/17/20 04/18/20 04/18/20 22:59 06:59 14:59 Intake Total 1460 1400 Output Total 5 Balance 1455 1400 Lab Results Last 24 Hours: Laboratory Results - last 24 hr 04/18/20 Range/Units 05:35 Sodium 138 (136-145) mEq/L Potassium 3.5 (3.5-5.1) mEq/L Chloride 105 (98-107) mEq/L Carbon Dioxide 19 L (21-32) mEq/L Anion Gap 17.5 H (5-15) BUN 18 (7-18) mg/dL Creatinine 0.5 L (0.55-1.02) mg/dL Est Cr Clr Drug Dosing 98.99 mL/min Estimated GFR (MDRD) > 60 (>60) mL/min BUN/Creatinine Ratio 36.0 H (14-18) Glucose 95 (80-115) mg/dL Calcium 8.4 L (8.5-10.1) mg/dL Magnesium 1.2 L (1.8-2.4) mg/dl Med Orders - Current: Current Medications Acetaminophen (Tylenol) 650 mg PO Q6H PRN PRN Reason: Pain (moderate 4-6) Last Admin: 04/17/20 15:17 Dose: 650 mg Documented by: Albuterol (Proventil Hfa) 0 gm INH Q4H PRN PRN Reason: Shortness of Breath Cholestyramine Resin (Cholestyramine Packet) 4 gm PO DAILY [facility] Last Admin: 04/18/20 09:14 Dose: 4 gm Documented by: Diphenoxylate HCl/Atropine (Lomotil 0.025-2.5 Mg) 2 tab PO QID PRN PRN Reason: Diarrhea Last Admin: 04/18/20 04:12 Dose: 2 tab Documented by: Fluvoxamine Maleate (Fluvoxamine) 50 mg PO BEDTIME [facility] Last Admin: 04/17/20 20:22 Dose: 50 mg Documented by: Folic Acid (Folic Acid) 1 mg PO DAILY [facility] Last Admin: 04/18/20 09:15 Dose: 1 mg Documented by: Dextrose/Lactated Ringer's (Dextrose 5%-Lactated Ringers) 1,000 mls @ 150 mls/hr IV ASDIRECTED [facility] Last Admin: 04/13/20 17:16 Dose: 150 mls/hr Documented by: Magnesium Sulfate 4 gm/ Premix 50 mls @ 12.5 mls/hr IV ONETIME ONE Stop: 04/18/20 11:59 Last Admin: 04/18/20 09:16 Dose: 12.5 mls/hr Documented by: Loperamide HCl (Imodium) 2 mg PO Q6H PRN PRN Reason: Diarrhea Lorazepam (Ativan) 1 mg IVPUSH Q4H PRN; Protocol PRN Reason: Withdrawal Symptoms Metoprolol Tartrate (Lopressor) 50 mg PO BID [facility] Last Admin: 04/18/20 09:14 Dose: 50 mg Documented by: Mometasone Furoate/Formoterol Fumar (Dulera 200-5 Mcg) 2 puff IH BID [facility] Last Admin: 04/18/20 09:14 Dose: 2 inhalation Documented by: Montelukast Sodium (Singulair) 10 mg PO BEDTIME [facility] Last Admin: 04/17/20 20:23 Dose: 10 mg Documented by: Pantoprazole Sodium (Protonix) 40 mg PO ACBREAKFAST [facility] Last Admin: 04/18/20 06:11 Dose: 40 mg Documented by: Sodium Chloride (Saline Flush) 10 ml FLUSH ASDIRECTED PRN PRN Reason: Keep Vein Open Last Admin: 04/13/20 12:44 Dose: 10 ml Documented by: Sucralfate (Carafate) 1 gm PO QID [facility] Last Admin: 04/18/20 09:14 Dose: 1 gm Documented by: Thiamine HCl (Vitamin B-1) 100 mg PO BEDTIME [facility] Last Admin: 04/17/20 20:21 Dose: 100 mg Documented by: Topiramate (Topamax) 75 mg PO BEDTIME [facility] Last Admin: 04/17/20 20:21 Dose: 75 mg Documented by: Discontinued Medications Acetaminophen (Tylenol) 975 mg PO NOW ONE Stop: 04/14/20 07:00 Last Admin: 04/14/20 07:08 Dose: 975 mg Documented by: Acetaminophen (Tylenol) 650 mg PO NOW ONE Stop: 04/14/20 14:35 Last Admin: 04/14/20 14:39 Dose: 650 mg Documented by: Diphenoxylate HCl/Atropine (Lomotil 0.025-2.5 Mg) 1 tab PO BID PRN PRN Reason: Diarrhea Last Admin: 04/16/20 01:48 Dose: 1 tab Documented by: Diphenoxylate HCl/Atropine (Lomotil 0.025-2.5 Mg) 1 tab PO QID PRN PRN Reason: Diarrhea Last Admin: 04/17/20 12:54 Dose: 1 tab Documented by: Dextrose/Lactated Ringer's (Dextrose 5%-Lactated Ringers) 1,000 mls @ 999 mls/hr IV ASDIRECTED [facility] Last Admin: 04/13/20 12:44 Dose: 999 mls/hr Documented by: Magnesium Sulfate 4 gm/ Premix 50 mls @ 12.5 mls/hr IV ONETIME ONE Stop: 04/13/20 17:27 Last Admin: 04/13/20 14:12 Dose: 12.5 mls/hr Documented by: Potassium Chloride 10 meq/ (Premix) 100 mls @ 100 mls/hr IV ASDIRECTED [facility] Last Admin: 04/13/20 17:33 Dose: 100 mls/hr Documented by: Lactated Ringer's (Ringers, Lactated) 1,000 mls @ 999 mls/hr IV .BOLUS ONE Stop: 04/13/20 14:44 Last Infusion: 04/13/20 14:12 Dose: 400 mls/hr Documented by: Lorazepam (Ativan) 1 mg PO ONETIME ONE Stop: 04/13/20 15:15 Last Admin: 04/13/20 15:23 Dose: 1 mg Documented by: Lorazepam (Ativan) 1 mg PO ONETIME ONE Stop: 04/13/20 18:43 Last Admin: 04/13/20 18:57 Dose: 1 mg Documented by: Lorazepam (Ativan) 1 mg IVPUSH ONETIME ONE Stop: 04/13/20 23:18 Last Admin: 04/13/20 23:20 Dose: 1 mg Documented by: Lorazepam (Ativan) 1 mg IVPUSH ONETIME ONE Stop: 04/14/20 03:04 Last Admin: 04/14/20 03:54 Dose: 1 mg Documented by: Lorazepam (Ativan) 1 mg PO ONETIME ONE Stop: 04/14/20 13:33 Last Admin: 04/14/20 13:45 Dose: 1 mg Documented by: Metoclopramide HCl (Reglan) 5 mg IVPUSH ONETIME ONE Stop: 04/13/20 11:54 Last Admin: 04/13/20 12:44 Dose: 5 mg Documented by: Metoprolol Tartrate (Lopressor) 12.5 mg PO BID [facility] Last Admin: 04/15/20 08:16 Dose: 12.5 mg Documented by: Metoprolol Tartrate (Lopressor) 25 mg PO BID [facility] Last Admin: 04/16/20 08:19 Dose: 25 mg Documented by: Potassium Chloride (Klor-Con M20) 40 meq PO ONETIME ONE Stop: 04/13/20 13:29 Last Admin: 04/13/20 14:16 Dose: 40 meq Documented by: - Exam Quality Assessment: DVT Prophylaxis. No: Supplemental Oxygen, Urine Catheter General: Alert, Oriented, Cooperative, No Acute Distress HEENT: Pupils Equal, Pupils Reactive, Mucous Membr. Moist/[place] Neck: Supple, Trachea Midline Lungs: Clear to Auscultation, Normal Respiratory Effort Cardiovascular: Regular Rate, Regular Rhythm GI/Abdominal Exam: Normal Bowel Sounds, Soft, Non-Tender, No Distention (Female) Exam: Deferred Back Exam: Normal Inspection, Full Range of Motion Extremities: Normal Inspection, Normal Range of Motion, Non-Tender, Normal Capillary Refill, Pedal Edema (1+ ) Skin: Warm, Dry, Intact Neurological: No New Focal Deficit Psy/Mental Status: Alert. No: Withdrawal Symptoms - Patient Data Lab Results Last 24 hrs: Laboratory Results - last 24 hr 04/18/20 Range/Units 05:35 Sodium 138 (136-145) mEq/L Potassium 3.5 (3.5-5.1) mEq/L Chloride 105 (98-107) mEq/L Carbon Dioxide 19 L (21-32) mEq/L Anion Gap 17.5 H (5-15) BUN 18 (7-18) mg/dL Creatinine 0.5 L (0.55-1.02) mg/dL Est Cr Clr Drug Dosing 98.99 mL/min Estimated GFR (MDRD) > 60 (>60) mL/min BUN/Creatinine Ratio 36.0 H (14-18) Glucose 95 (80-115) mg/dL Calcium 8.4 L (8.5-10.1) mg/dL Magnesium 1.2 L (1.8-2.4) mg/dl Result Diagrams: 04/13/20 12:38 04/18/20 05:35 Sepsis Event Note - Evaluation Sepsis Screening Result: No Definite Risk - Focused Exam Vital Signs: Vital Signs Temp Pulse Pulse Resp BP BP Pulse Ox 04/18/20 09:14 86 129/66 04/18/20 03:00 97.3 F 86 16 124/67 97 - Problem List & Annotations (1) Alcohol withdrawal delirium SNOMED Code(s): 6972991 Code(s): F10.231 - ALCOHOL DEPENDENCE WITH WITHDRAWAL DELIRIUM Status: Resolved Priority: High Current Visit: Yes (2) Chronic alcohol abuse SNOMED Code(s): 293028061 Code(s): F10.10 - ALCOHOL ABUSE, UNCOMPLICATED Status: Chronic Priority: High Current Visit: Yes (3) Anxiety SNOMED Code(s): 32735120 Code(s): F41.9 - ANXIETY DISORDER, UNSPECIFIED Status: Chronic Priority: High Current Visit: Yes (4) Asthma SNOMED Code(s): 744617415 Code(s): J45.909 - UNSPECIFIED ASTHMA, UNCOMPLICATED Status: Chronic Priority: Low Current Visit: No Qualifiers: Asthma severity: unspecified severity Asthma persistence: unspecified Asthma complication type: unspecified Qualified Code(s): J45.909 - Unspecified asthma, uncomplicated (5) Hypomagnesemia SNOMED Code(s): 228462977 Code(s): E83.42 - HYPOMAGNESEMIA Status: Chronic Priority: High Current Visit: Yes (6) Bipolar disorder SNOMED Code(s): 61047258 Code(s): F31.9 - BIPOLAR DISORDER, UNSPECIFIED Status: Chronic Priority: High Current Visit: Yes Qualifiers: Active/Remission status: currently active Current episode severity: unspecified (7) Major depressive disorder SNOMED Code(s): 820297140 Code(s): F32.9 - MAJOR DEPRESSIVE DISORDER, SINGLE EPISODE, UNSPECIFIED Status: Chronic Priority: High Current Visit: Yes Qualifiers: Major depression recurrence: unspecified whether recurrent Active/Remission status: currently active Major depression episode severity: unspecified Qualified Code(s): F32.9 - Major depressive disorder, single episode, unspecified (8) Post traumatic stress disorder SNOMED Code(s): 37975859 Code(s): F43.10 - POST-TRAUMATIC STRESS DISORDER, UNSPECIFIED Status: Chronic Priority: High Current Visit: Yes (9) HLD (hyperlipidemia) SNOMED Code(s): 29951198 Code(s): E78.5 - HYPERLIPIDEMIA, UNSPECIFIED Status: Resolved Priority: Low Current Visit: No Qualifiers: Hyperlipidemia type: unspecified Qualified Code(s): E78.5 - Hyperlipidemia, unspecified (10) Esophageal reflux SNOMED Code(s): 745879296 Code(s): K21.9 - GASTRO-ESOPHAGEAL REFLUX DISEASE WITHOUT ESOPHAGITIS Status: Chronic Priority: Low Current Visit: No Qualifiers: Esophagitis presence: without esophagitis Qualified Code(s): K21.9 - Gastro-esophageal reflux disease without esophagitis (11) Hypertension SNOMED Code(s): 06376927 Code(s): I10 - ESSENTIAL (PRIMARY) HYPERTENSION Status: Chronic Priority: Medium Current Visit: No Qualifiers: Hypertension type: essential hypertension Qualified Code(s): I10 - Essential (primary) hypertension - Problem List Review Problem List Initiated/Reviewed/Updated: Yes - My Orders Last 24 Hours: My Active Orders 04/18/20 08:00 Magnesium Sulfate/Water [Magnesium Sulfate in Water 4 GM/50 ML] 4 gm Premix Bag 1 bag IV ONETIME - Plan Plan:: Impression: ETOH longstanding history, observed social needs eg lack of self care --> incontinent of stool, crawling on hands and knees to name 2 examples. Objective is placement via petition for less restrictive treatment. ETOH intoxication, BAL=0.42->0.3 before admission from the ED Social dilemma d/t living condition; s/p Welfare check Incontinent of stool Chronic Frequent unsuccessful detoxification programs Anxiety Bipolar disorder Depression HTN HLD GERD Hypomagnesemia Plan: Questran added for stool bulk PT/OT consults UP IN CHAIR TID Lomotil dose change Decrease number of food trays to 1 TID. [facility] [place] to assist in place, [facility] [place]. Less restrictive treatment, TBC. Replace electrolytes. Maintain home meds Remains clinically stable - Discharge pending placement Await placement; anticipate next week on Mon or .
[2020-04-18] MEDS: Thiamine 100 MG Tab PO SCH (20:47)
[2020-04-18] MEDS: Topiramate 25 MG Tab PO SCH (20:47)
[2020-04-18] MEDS: Montelukast 10 MG Tab PO SCH (20:47)
[2020-04-18] MEDS: fluvoxaMINE 50 MG Tab PO SCH (20:57)
[2020-04-18] MEDS: Acetaminophen 325 MG Tab PO PRN (21:05)
[2020-04-19 03:29] VITALS: BP 116/74; PULSE 82
[2020-04-19] MEDS: Pantoprazole 40 MG Tab.CR PO SCH (05:59)
[2020-04-19] MEDS: Formoterol/Mometasone 200-5 MCG 8.8 GM Inhaler IH SCH ×2 (07:23→08:00)
--- NOTE | 2020-04-19 07:23 | PCM.DCSUM1 ---
Discharge Summary - Hospital Course HPI Initial Comments: 64 year old female with frequent admissions for ETOH/poorly kept social environment. A welfare check precipitated a ED visit. The patient was admitted with a CYNTHIA level of 0.42, after reportedly 5-6 hours, it dropped to 0.30. She will be admitted for treatment and placement. The primary focus, stabilize the patient medically for inpatient treatment. Presumably she has been admitted with the intention of less restrictive treatment. The [facility] but declined after stool incontinence. Diagnosis: Stroke: No - Discharge Data Discharge Date: 04/19/20 (Admit date: 04/13/20) Discharge Disposition: DC/Tfer to Psych Hosp/[facility] Condition: Good - Referral to Home Health Primary Care Physician: Renard Verduzco MD - Discharge Diagnosis/Problem(s) (1) Alcohol withdrawal delirium SNOMED Code(s): 1039046 ICD Code: F10.231 - ALCOHOL DEPENDENCE WITH WITHDRAWAL DELIRIUM Status: Resolved Priority: High Current Visit: Yes (2) Chronic alcohol abuse SNOMED Code(s): 546867884 ICD Code: F10.10 - ALCOHOL ABUSE, UNCOMPLICATED Status: Chronic Priority: High Current Visit: Yes (3) Anxiety SNOMED Code(s): 66348239 ICD Code: F41.9 - ANXIETY DISORDER, UNSPECIFIED Status: Chronic Priority: High Current Visit: Yes (4) Asthma SNOMED Code(s): 138505102 ICD Code: J45.909 - UNSPECIFIED ASTHMA, UNCOMPLICATED Status: Chronic Priority: Low Current Visit: No Qualifiers: Asthma severity: unspecified severity Asthma persistence: unspecified Asthma complication type: unspecified Qualified Code(s): J45.909 - Unspecified asthma, uncomplicated (5) Hypomagnesemia SNOMED Code(s): 334535489 ICD Code: E83.42 - HYPOMAGNESEMIA Status: Chronic Priority: High Current Visit: Yes (6) Bipolar disorder SNOMED Code(s): 32266288 ICD Code: F31.9 - BIPOLAR DISORDER, UNSPECIFIED Status: Chronic Priority: High Current Visit: Yes Qualifiers: Active/Remission status: currently active Current episode severity: unspecified (7) Major depressive disorder SNOMED Code(s): 359295682 ICD Code: F32.9 - MAJOR DEPRESSIVE DISORDER, SINGLE EPISODE, UNSPECIFIED Status: Chronic Priority: High Current Visit: Yes Qualifiers: Major depression recurrence: unspecified whether recurrent Active/Remission status: currently active Major depression episode severity: unspecified Qualified Code(s): F32.9 - Major depressive disorder, single episode, unspecified (8) Post traumatic stress disorder SNOMED Code(s): 12363949 ICD Code: F43.10 - POST-TRAUMATIC STRESS DISORDER, UNSPECIFIED Status: Chronic Priority: High Current Visit: Yes (9) Esophageal reflux SNOMED Code(s): 353289118 ICD Code: K21.9 - GASTRO-ESOPHAGEAL REFLUX DISEASE WITHOUT ESOPHAGITIS Status: Chronic Priority: Low Current Visit: No Qualifiers: Esophagitis presence: without esophagitis Qualified Code(s): K21.9 - Gastro-esophageal reflux disease without esophagitis (10) Hypertension SNOMED Code(s): 00177295 ICD Code: I10 - ESSENTIAL (PRIMARY) HYPERTENSION Status: Chronic Priority: Medium Current Visit: No Qualifiers: Hypertension type: essential hypertension Qualified Code(s): I10 - Essential (primary) hypertension - Patient Summary/Data Consults: Consultations 04/14/20 18:48 Consult to Case Management/Senior Contracts Manager [CONS] Routine Labs Pending at D/C: None Recommended Follow-up Testing/Procedures: Follow-up with psychiatry as needed Follow-up with PCP as needed Hospital Course: This is a 64-year-old female who goes by the name "Gadiel" who presented to our facility via ambulance after a welfare check. Patient has a long history of alcohol abuse and multiple chronic comorbid conditions related to chronic alcohol consumption. She has been to multiple inpatient and outpatient treatment programs with no success thus far. She was reportedly found in her home incontinent of stool with multiple piles of stool around her house. She was also reportedly crawling around on her hands and knees. Blood alcohol level in ED was 0.42 initially and after 5 to 6 hours was 0.3. She was admitted for detox and placement. She has a long history of very difficult detoxifications including hallucinations, vomiting, altered mental status, but no seizures. While here CIWA's remained relatively low with her highest being 8. Prior to discharge she was 0-3 and very stable. She had been requiring a walker to ambulate and was able to ambulate without assistance prior to leaving. She is willing to go wherever she can as she notes she needs help with remaining sober. She was noted to be ordering multiple trays of food and was having significant diarrhea which she states is common for her when she gets very anxious. She was given bulking agents with great response. This will not be continued at discharge and she has had no diarrhea since the day prior to discharge. Magnesium was low and was supplemented however this is chronically low for her. Otherwise electrolytes remained stable. Home medications were continued at discharge. [facility] was very involved with the patient during her stay as patient reportedly had an alternate treatment order in place due to prior court orders. Because of this patient will be transported via [facility]'s office to the [facility] in [place] for further treatment. Recommend patient follow-up with psychiatry per their recommendations. No labs pending at discharge and has noted she remained very stable. - Patient Instructions Diet: Usual Diet as Tolerated Activity: As Tolerated Driving: Do Not Drive Showering/Bathing: May Shower Notify Provider of: Fever, Increased Pain, Nausea and/or Vomiting - Discharge Plan *PRESCRIPTION DRUG MONITORING PROGRAM REVIEWED*: No *COPY OF PRESCRIPTION DRUG MONITORING REPORT IN PATIENT ANTHONY: No Home Medications: Home Meds Fluticasone Propion/Salmeterol [Advair 250-50 Diskus] 1 puff IH DAILY 05/24/16 [History] atorvaSTATin [Lipitor] 20 mg PO DAILY 05/24/16 [History] Albuterol Sulfate [Albuterol Sulfate Hfa] 2 puff PO Q4HR PRN 12/22/18 [History] Omeprazole 20 mg PO ACBREAKFAST 12/22/18 [History] Potassium Chloride 20 meq PO DAILY 12/22/18 [History] Sucralfate [Carafate] 1 gm PO QID 12/22/18 [History] Folic Acid 1 mg PO DAILY #30 tablet 12/23/18 [Rx] Thiamine [Vitamin B-1] 100 mg PO BEDTIME #30 tab 12/23/18 [Rx] Cranberry Fruit Extract [Cranberry] 0 mg PO DAILY 04/01/19 [History] Lutein/Minerals/Vit A,C & E [Ocuvite] 1 tab PO DAILY 04/01/19 [History] Montelukast [Singulair] 10 mg PO BEDTIME 04/01/19 [History] Metoprolol Tartrate 12.5 mg PO BID #1 tablet 03/18/20 [Rx] Topiramate [Topamax] 75 mg PO BEDTIME #1 tab 03/18/20 [Rx] chlorproMAZINE [Thorazine] 50 mg PO BEDTIME #1 tab 03/18/20 [Rx] fluvoxaMINE [Luvox] 50 mg PO BEDTIME #1 tablet 03/18/20 [Rx] DULoxetine [Cymbalta] 30 mg PO DAILY 04/14/20 [History] Losartan [Cozaar] 25 mg PO 04/14/20 [History] Mirtazapine 15 mg PO 04/14/20 [History] OLANZapine [Olanzapine] 10 mg PO 04/14/20 [History] Pantoprazole [ProTONIX] 40 mg PO 04/14/20 [History] atenoloL [Atenolol] 25 mg PO 04/14/20 [History] lamoTRIgine [Lamotrigine] 100 mg PO 04/14/20 [History] Oxygen Therapy Mode: Room Air Patient Handouts: Alcohol Withdrawal Syndrome, [id number] Forms: ED Department Discharge Referrals: Renard Verduzco MD [Primary Care Provider] - - Discharge Summary/Plan Comment DC Time >30 min.: No - General Info Date of Service: 04/19/20 Admission Dx/Problem (Free Text: Admission Diagnosis/Problem Admission Diagnosis/Problem Alcohol abuse Functional Status: Reports: Pain Controlled, Tolerating Diet, Ambulating, Urinating. Denies: New Symptoms - Review of Systems General: Reports: No Symptoms. Denies: Fever, Weakness, Fatigue, Malaise, Chills HEENT: Reports: No Symptoms. Denies: Headaches, Sore Throat Pulmonary: Reports: No Symptoms. Denies: Shortness of Breath, Cough, Sputum, Wheezing Cardiovascular: Reports: No Symptoms. Denies: Chest Pain, Palpitations, Dyspnea on Exertion, Edema Gastrointestinal: Reports: No Symptoms. Denies: Abdominal Pain, Constipation, Decreased Appetite, Diarrhea, Nausea, Vomiting Genitourinary: Reports: No Symptoms. Denies: Pain Musculoskeletal: Reports: No Symptoms Skin: Reports: No Symptoms. Denies: Cyanosis Neurological: Reports: No Symptoms. Denies: Confusion, Pre-Existing Deficit, Difficulty Walking, Weakness, Gait Disturbance Psychiatric: Reports: No Symptoms - Patient Data Vitals - Most Recent: Last Vital Signs Temp 97.5 F 04/19/20 03:29 Pulse 82 04/19/20 03:29 Resp 19 04/19/20 03:29 BP 116/74 04/19/20 03:29 Pulse Ox 98 04/19/20 03:29 Weight - Most Recent: 121 lb 6.4 oz I&O - Last 24 hours: Intake & Output 04/18/20 04/19/20 04/19/20 22:59 06:59 14:59 Intake Total 606 600 Balance 606 600 Lab Results - Last 24 hrs: Laboratory Results - last 24 hr 04/18/20 Range/Units 15:00 SARS-CoV-2 RNA (DODIE) Negative (NEGATIVE) Med Orders - Current: Current Medications Acetaminophen (Tylenol) 650 mg PO Q6H PRN PRN Reason: Pain (moderate 4-6) Last Admin: 04/18/20 21:05 Dose: 650 mg Documented by: Albuterol (Proventil Hfa) 0 gm INH Q4H PRN PRN Reason: Shortness of Breath Cholestyramine Resin (Cholestyramine Packet) 4 gm PO DAILY [facility] Last Admin: 04/18/20 09:14 Dose: 4 gm Documented by: Diphenoxylate HCl/Atropine (Lomotil 0.025-2.5 Mg) 2 tab PO QID PRN PRN Reason: Diarrhea Last Admin: 04/18/20 04:12 Dose: 2 tab Documented by: Fluvoxamine Maleate (Fluvoxamine) 50 mg PO BEDTIME [facility] Last Admin: 04/18/20 20:57 Dose: 50 mg Documented by: Folic Acid (Folic Acid) 1 mg PO DAILY [facility] Last Admin: 04/18/20 09:15 Dose: 1 mg Documented by: Dextrose/Lactated Ringer's (Dextrose 5%-Lactated Ringers) 1,000 mls @ 150 mls/hr IV ASDIRECTED [facility] Last Admin: 04/13/20 17:16 Dose: 150 mls/hr Documented by: Loperamide HCl (Imodium) 2 mg PO Q6H PRN PRN Reason: Diarrhea Lorazepam (Ativan) 1 mg IVPUSH Q4H PRN; Protocol PRN Reason: Withdrawal Symptoms Metoprolol Tartrate (Lopressor) 50 mg PO BID [facility] Last Admin: 04/18/20 20:47 Dose: 50 mg Documented by: Mometasone Furoate/Formoterol Fumar (Dulera 200-5 Mcg) 2 puff IH BID [facility] Last Admin: 04/18/20 20:05 Dose: 2 inhalation Documented by: Montelukast Sodium (Singulair) 10 mg PO BEDTIME [facility] Last Admin: 04/18/20 20:47 Dose: 10 mg Documented by: Pantoprazole Sodium (Protonix) 40 mg PO ACBREAKFAST [facility] Last Admin: 04/19/20 05:59 Dose: 40 mg Documented by: Sodium Chloride (Saline Flush) 10 ml FLUSH ASDIRECTED PRN PRN Reason: Keep Vein Open Last Admin: 04/13/20 12:44 Dose: 10 ml Documented by: Sucralfate (Carafate) 1 gm PO QID [facility] Last Admin: 04/18/20 20:47 Dose: 1 gm Documented by: Thiamine HCl (Vitamin B-1) 100 mg PO BEDTIME [facility] Last Admin: 04/18/20 20:47 Dose: 100 mg Documented by: Topiramate (Topamax) 75 mg PO BEDTIME [facility] Last Admin: 04/18/20 20:47 Dose: 75 mg Documented by: Discontinued Medications Acetaminophen (Tylenol) 975 mg PO NOW ONE Stop: 04/14/20 07:00 Last Admin: 04/14/20 07:08 Dose: 975 mg Documented by: Acetaminophen (Tylenol) 650 mg PO NOW ONE Stop: 04/14/20 14:35 Last Admin: 04/14/20 14:39 Dose: 650 mg Documented by: Diphenoxylate HCl/Atropine (Lomotil 0.025-2.5 Mg) 1 tab PO BID PRN PRN Reason: Diarrhea Last Admin: 04/16/20 01:48 Dose: 1 tab Documented by: Diphenoxylate HCl/Atropine (Lomotil 0.025-2.5 Mg) 1 tab PO QID PRN PRN Reason: Diarrhea Last Admin: 04/17/20 12:54 Dose: 1 tab Documented by: Dextrose/Lactated Ringer's (Dextrose 5%-Lactated Ringers) 1,000 mls @ 999 mls/hr IV ASDIRECTED [facility] Last Admin: 04/13/20 12:44 Dose: 999 mls/hr Documented by: Magnesium Sulfate 4 gm/ Premix 50 mls @ 12.5 mls/hr IV ONETIME ONE Stop: 04/13/20 17:27 Last Admin: 04/13/20 14:12 Dose: 12.5 mls/hr Documented by: Potassium Chloride 10 meq/ (Premix) 100 mls @ 100 mls/hr IV ASDIRECTED [facility] Last Admin: 04/13/20 17:33 Dose: 100 mls/hr Documented by: Lactated Ringer's (Ringers, Lactated) 1,000 mls @ 999 mls/hr IV .BOLUS ONE Stop: 04/13/20 14:44 Last Infusion: 04/13/20 14:12 Dose: 400 mls/hr Documented by: Magnesium Sulfate 4 gm/ Premix 50 mls @ 12.5 mls/hr IV ONETIME ONE Stop: 04/18/20 11:59 Last Admin: 04/18/20 09:16 Dose: 12.5 mls/hr Documented by: Lorazepam (Ativan) 1 mg PO ONETIME ONE Stop: 04/13/20 15:15 Last Admin: 04/13/20 15:23 Dose: 1 mg Documented by: Lorazepam (Ativan) 1 mg PO ONETIME ONE Stop: 04/13/20 18:43 Last Admin: 04/13/20 18:57 Dose: 1 mg Documented by: Lorazepam (Ativan) 1 mg IVPUSH ONETIME ONE Stop: 04/13/20 23:18 Last Admin: 04/13/20 23:20 Dose: 1 mg Documented by: Lorazepam (Ativan) 1 mg IVPUSH ONETIME ONE Stop: 04/14/20 03:04 Last Admin: 04/14/20 03:54 Dose: 1 mg Documented by: Lorazepam (Ativan) 1 mg PO ONETIME ONE Stop: 04/14/20 13:33 Last Admin: 04/14/20 13:45 Dose: 1 mg Documented by: Metoclopramide HCl (Reglan) 5 mg IVPUSH ONETIME ONE Stop: 04/13/20 11:54 Last Admin: 04/13/20 12:44 Dose: 5 mg Documented by: Metoprolol Tartrate (Lopressor) 12.5 mg PO BID [facility] Last Admin: 04/15/20 08:16 Dose: 12.5 mg Documented by: Metoprolol Tartrate (Lopressor) 25 mg PO BID [facility] Last Admin: 04/16/20 08:19 Dose: 25 mg Documented by: Potassium Chloride (Klor-Con M20) 40 meq PO ONETIME ONE Stop: 04/13/20 13:29 Last Admin: 04/13/20 14:16 Dose: 40 meq Documented by: - Exam Quality Assessment: Reports: DVT Prophylaxis. Denies: Supplemental Oxygen, Urine Catheter General: Reports: Alert, Oriented, Cooperative, No Acute Distress HEENT: Reports: Pupils Equal, Pupils Reactive, Mucous Membr. Moist/[place] Neck: Reports: Supple, Trachea Midline Lungs: Reports: Clear to Auscultation, Normal Respiratory Effort Cardiovascular: Reports: Regular Rate, Regular Rhythm GI/Abdominal Exam: Normal Bowel Sounds, Soft, Non-Tender, No Distention, No Abnormal Bruit (Female) Exam: Deferred Rectal (Female) Exam: Deferred Back Exam: Reports: Normal Inspection, Full Range of Motion Extremities: Normal Inspection, Normal Range of Motion, Non-Tender, No Pedal Edema, Normal Capillary Refill Skin: Reports: Warm, Dry, Intact Neurological: Reports: No New Focal Deficit Psy/Mental Status: Reports: Alert. Denies: Withdrawal Symptoms
== END 2020-04-19 08:20 | DRG 775 ==
LOC: JD.ED 11:34 → JD.ICU 04-14 17:01
PROVIDERS: ADMIT Internal Medicine Cardiovascular Disease; ATTEND Internal Medicine Cardiovascular Disease
DX: F10.231 Alcohol dependence with withdrawal delirium (principal); F41.9 Anxiety disorder, unspecified; J45.909 Unspecified asthma, uncomplicated; E83.42 Hypomagnesemia; F31.9 Bipolar disorder, unspecified; F43.10 Post-traumatic stress disorder, unspecified; K21.9 Gastro-esophageal reflux disease without esophagitis; I10 Essential (primary) hypertension; E78.5 Hyperlipidemia, unspecified; Z87.440 Personal history of urinary (tract) infections; Z90.89 Acquired absence of other organs; Z98.890 Other specified postprocedural states; Z90.49 Acquired absence of other specified parts of digestive tract; Z20.822 Contact with and (suspected) exposure to COVID-19
CPT/HCPCS: 36410; 36415; 71045; 71045-26; 80048; 80053; 80061; 80143; 80179; 80306; 80307; 81003; 83690; 83735; 84443; 84484; 85025; 85610; 93005; 93010; 94640; 96365; 96366; 96367; 96375; 99222; 99232; 99233; 99238; 99284; 99285-25; A9270-GY; J2060; J2765; J3475; J3480; J7120; J7121; U0002

== ENCOUNTER 2020-06-13 15:54 | Emergency (ER) | payer BC ==
[2020-06-13 16:08] VITALS: BP 135/79; PULSE 110
[2020-06-13] MEDS ORDERED: Dextrose 5%-Lactated Ringers 1,000 ML IV SCH ×2 (16:15→18:15)
[2020-06-13] MEDS ORDERED: Ondansetron 4 MG/2 ML SDV IVPUSH ONE (16:15)
--- NOTE | 2020-06-13 16:22 | EDM.PDOCBH ---
ED HPI GENERAL MEDICAL PROBLEM - General Chief Complaint: Drug or Alcohol Abuse Stated Complaint: [facility] Time Seen by Provider: 06/13/20 16:10 Source of Information: Reports: EMS History Limitations: Reports: Altered Mental Status, Intoxication - History of Present Illness INITIAL COMMENTS - FREE TEXT/NARRATIVE: 64-year-old female who is a known chronic alcoholic presents once again to the ED per [facility]. Mother did a welfare check on her and found her lying unresponsive on the kitchen floor of her home today. 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 She denies falling. She denies any nausea or vomiting. It is unclear when she would have eaten last. She was in treatment up until 2 days ago. It is suspect that she is gotten back into some alcohol although it is not evident on her breath. She does answer questions appropriately. She denies hurting anywhere. She denies cough or sputum production. She denies drinking alcohol again but she clearly is intoxicated. She is wearing a depends. Onset: Unknown/Unsure (Got out of treatment for alcoholism 2 days ago.) Onset Date: 06/13/20 Duration: Day(s): Location: Reports: Other (No outward signs of injury. Found lying on the kitchen floor unresponsive as she has many times in the past.) Quality: Reports: Other Severity: Moderate (Eyes any pain anywhere.) Improves with: Reports: Other (Does answer questions appropriately when prodded. She prefers to lie still with her eyes closed.) Worsens with: Reports: None Context: Reports: Other (She of chronic alcohol abuse. She has been seen through the emergency room here on multitude of occasions. Mother indicates that she just got out of treatment 2 days ago and she was found unresponsive on her kitchen floor this afternoon.). Denies: Activity, Exercise, Lifting, Sick Contact, Trauma Associated Symptoms: Reports: Cough, Loss of Appetite, Malaise, Weakness. 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: Reports: Other (see below) (Denies taking any medications other than what she is prescribed.) - Related Data Allergies Allergy/AdvReac Type Severity Reaction Status Date / Time levofloxacin [From [facility]] Allergy Intermediate Rash Verified 04/17/20 09:02 propoxyphene napsylate AdvReac Mild Headache Verified 04/17/20 09:02 [From [facility]] Home Meds: Home Meds Fluticasone Propion/Salmeterol [Advair 250-50 Diskus] 1 puff IH DAILY 05/24/16 [History] atorvaSTATin [Lipitor] 20 mg PO DAILY 05/24/16 [History] Albuterol Sulfate [Albuterol Sulfate Hfa] 2 puff PO Q4HR PRN 12/22/18 [History] Omeprazole 20 mg PO ACBREAKFAST 12/22/18 [History] Potassium Chloride 20 meq PO DAILY 12/22/18 [History] Sucralfate [Carafate] 1 gm PO QID 12/22/18 [History] Folic Acid 1 mg PO DAILY #30 tablet 12/23/18 [Rx] Thiamine [Vitamin B-1] 100 mg PO BEDTIME #30 tab 12/23/18 [Rx] Cranberry Fruit Extract [Cranberry] 0 mg PO DAILY 04/01/19 [History] Lutein/Minerals/Vit A,C & E [Ocuvite] 1 tab PO DAILY 04/01/19 [History] Montelukast [Singulair] 10 mg PO BEDTIME 04/01/19 [History] Metoprolol Tartrate 12.5 mg PO BID #1 tablet 03/18/20 [Rx] Topiramate [Topamax] 75 mg PO BEDTIME #1 tab 03/18/20 [Rx] chlorproMAZINE [Thorazine] 50 mg PO BEDTIME #1 tab 03/18/20 [Rx] fluvoxaMINE [Luvox] 50 mg PO BEDTIME #1 tablet 03/18/20 [Rx] DULoxetine [Cymbalta] 30 mg PO DAILY 04/14/20 [History] Losartan [Cozaar] 25 mg PO 04/14/20 [History] Mirtazapine 15 mg PO 04/14/20 [History] OLANZapine [Olanzapine] 10 mg PO 04/14/20 [History] Pantoprazole [ProTONIX] 40 mg PO 04/14/20 [History] atenoloL [Atenolol] 25 mg PO 04/14/20 [History] lamoTRIgine [Lamotrigine] 100 mg PO 04/14/20 [History] Past Medical History HEENT History: Reports: Impaired Vision Other HEENT History: wears glasses Cardiovascular History: Reports: High Cholesterol, Hypertension Respiratory History: Reports: Asthma Gastrointestinal History: Reports: GERD Genitourinary History: Reports: UTI, Recurrent BLENDING SUPERVISOR History: Reports: Other (See Below) Other BLENDING SUPERVISOR History: Patient states she started menopause at 54 yoa Musculoskeletal History: Reports: Arthritis, Other (See Below) Other Musculoskeletal History: knee/shoulder pain Neurological History: Reports: Headaches, Chronic Other Neuro History: headaches Psychiatric History: Reports: Addiction, Anxiety, Bipolar, Depression, Eating Disorders Other Psychiatric History: eating disorder at age 14 Endocrine/Metabolic History: Reports: Osteoporosis Hematologic History: Reports: None Immunologic History: Reports: Other (See Below) Other Immunologic History: recurrent staph infections Oncologic (Cancer) History: Reports: None - Infectious Disease History Infectious Disease History: Reports: Chicken Pox, Measles, Mumps - Past Surgical History Head Surgeries/Procedures: Reports: None HEENT Surgical History: Reports: Adenoidectomy, Oral Surgery, Tonsillectomy, Other (See Below) Other HEENT Surgeries/Procedures: facial surgery to fractures on right side of face from fall. Cardiovascular Surgical History: Reports: None Respiratory Surgical History: Reports: None Other Respiratory Surgeries/Procedures: per ER report GI Surgical History: Reports: Appendectomy Other GI Surgeries/Procedures: GI bleed Female Surgical History: Reports: None Other Female Surgeries/Procedures: Patient states she had her ureters dilated in [facility] Musculoskeletal Surgical History: Reports: ORIF, Shoulder Surgery, Other (See Below) Other Musculoskeletal Surgeries/Procedures:: wrist ORIF Social & Family History - Family History Family Medical History: No Pertinent Family History Cardiac: Reports: None Psychiatric: Reports: Other (See Below) Other Psychiatric Family History: 2 uncles ETOH abuse - Caffeine Use Caffeine Use: Reports: Tea Other Caffeine Use: Unknown if ever used due to being currently intoxicated. 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 Denies: Fever, Chills HEENT: Reports: Glasses Respiratory: Reports: Cough (He was to have a cough nonproductive). Denies: Shortness of Breath, Wheezing, Pleuritic Chest Pain Cardiovascular: Reports: Lightheadedness, Other (Axial when she tries to walk.). Denies: Chest Pain, Blood Pressure Problem, Claudication, Dyspnea on Exertion, Edema, Orthopnea Endocrine: Reports: Fatigue GI/Abdominal: Reports: Diarrhea (Are usually on the loose side. They have been semiformed recently without blood.), Nausea. Denies: Hematochezia, Melena (Mild nausea present no vomiting), Stool Incontinence, Vomiting : Reports: Frequency ( Wears a depends.), Incontinence (Not none of urine.) Musculoskeletal: Reports: Neck Pain, Back Pain, Joint Pain (Cervical neck pain chronic low back pain stiff and soreness in knees) Skin: Reports: No Symptoms Neurological: Reports: Dizziness, Weakness (Lysed weakness). Denies: Confusion, Headache, Numbness, Tingling Psychiatric: Reports: Anxiety, Depression, Mood Lability, Other (Tonic alcoholism.). Denies: Suicidal Ideation Hematologic/Lymphatic: Reports: No Symptoms Immunologic: Reports: No Symptoms ED EXAM, BEHAVIORAL HEALTH - Physical Exam Exam: See Below Exam Limited By: Intoxication General Appearance: No Apparent Distress, Lethargic (Is mildly lethargic but she answers my questions appropriately without much dysarthria.), Other (Prefers to lie still with her eyes closed. She obeys commands such as lifting her legs off the gurney etc. Vital signs show temperature of 36.2 when she does not feel warm palpation. Heart rate was 110 and sinus respiratory to be 18 with O2 sats of 94% room air BP 135/79.) Eye Exam: Bilateral Eye: Nystagmus (Lateral nystagmus on lateral gaze.) Throat/Mouth: Normal Inspection, Normal Oropharynx, Other (Is mildly dry and coated.) Head: Atraumatic, Normocephalic, Other (Outward signs of any head or facial trauma.) Neck: Normal Inspection, Tender Lateral (Her laterally on examination she has had a previous fracture cervical spine.). No: Lymphadenopathy (L), Lymphadenopathy (R) Respiratory/Chest: No Respiratory Distress, Lungs Clear, Normal Breath Sounds, No Accessory Muscle Use Cardiovascular: Normal Peripheral Pulses, Regular Rate, Rhythm, No Gallop (Tachycardiac at 108/min.), No Murmur, No Rub, Tachycardia GI/Abdominal: Normal Bowel Sounds, Soft, No Organomegaly, No Abnormal Bruit, No Mass, Tender, Other Back Exam: Normal Inspection, Other (I will kyphosis thoracic spine.) Extremities: Normal Inspection, Normal Range of Motion, Non-Tender, No Pedal Edema (No signs of abrasions or contusions to the back.), Other (She can lift both legs off the gurney and has no evidence of injuries to her knees ankles or hips. Both upper extremities appear uninjured without any bruises or abrasions either.) Neurological: CN II-XII Intact, Oriented x 3, Other (Flat affect.). No: Normal Gait (Unable to test.) Psychiatric: Normal Cognition, Oriented, Flat Affect Skin Exam: Warm, Dry, Intact, Normal color, No rash #1 Interpretation EKG Date: 06/13/20 Time: 17:40 Rhythm: Other Rate (Beats/Min): 120 [place]: Normal P-Wave: Enlarged QRS: Other (Biatrial hypertrophy Q wave V1 near Q waves V2 V3 consider old anteroseptal myocardial infarction decreased voltage limb leads) ST-T: Other QT: Prolonged (T wave flattening aVL nonspecific finding) EKG Interpretation Comments: Abnormal ECG COURSE, BEHAVIORAL HEALTH COMP - Course Vital Signs: Last Vital Signs Temp 36.2 C 06/13/20 16:04 Pulse 110 H 06/13/20 16:04 Resp 18 06/13/20 16:04 BP 135/79 06/13/20 16:04 Pulse Ox 94 L 06/13/20 16:04 Orders, Labs, Meds: Active Orders 24 hr Category Date Time Status Insert Jeffries Catheter [Insert Urinary Catheter] [OM.PC] Care 06/13/20 18:05 Ordered Q24H Laboratory Tests 06/13/20 06/13/20 06/13/20 Range/Units 16:18 16:53 16:53 WBC 11.33 H (3.98-10.04) K/mm3 RBC 5.12 (3.98-5.22) M/mm3 Hgb 13.2 D (11.2-15.7) gm/dl Hct 42.5 (34.1-44.9) % MCV 83.0 D (79.4-94.8) fl MCH 25.8 (25.6-32.2) pg MCHC 31.1 L (32.2-35.5) g/dl RDW Std Deviation 61.2 H (36.4-46.3) fL Plt Count 355 D (182-369) K/mm3 MPV 8.9 L (9.4-12.3) fl Neut % (Auto) 61.1 (34.0-71.1) % Lymph % (Auto) 30.6 (19.3-51.7) % [place] % (Auto) 7.8 (4.7-12.5) % Eos % (Auto) 0.1 L (0.7-5.8) Baso % (Auto) 0.3 (0.1-1.2) % Neut # (Auto) 6.93 H (1.56-6.13) K/mm3 Lymph # (Auto) 3.47 (1.18-3.74) K/mm3 [place] # (Auto) 0.88 H (0.24-0.36) K/mm3 Eos # (Auto) 0.01 L (0.04-0.36) K/mm3 Baso # (Auto) 0.03 (0.01-0.08) K/mm3 Manual Slide Review Abnormal smear Sodium 146 H (136-145) mEq/L Potassium 4.3 (3.5-5.1) mEq/L Chloride 108 H (98-107) mEq/L Carbon Dioxide 23 (21-32) mEq/L Anion Gap 19.3 H (5-15) BUN 11 (7-18) mg/dL Creatinine 0.5 L (0.55-1.02) mg/dL Est Cr Clr Drug Dosing 92.27 mL/min Estimated GFR (MDRD) > 60 (>60) mL/min BUN/Creatinine Ratio 22.0 H (14-18) Glucose 89 (80-115) mg/dL POC Glucose 73 (70-99) mg/dL Calcium 7.8 L (8.5-10.1) mg/dL Magnesium 1.8 (1.8-2.4) mg/dl Total Bilirubin 0.5 (0.2-1.0) mg/dL AST 43 H (15-37) U/L ALT 46 (14-59) U/L Alkaline Phosphatase 100 (46-116) U/L Troponin I < 0.017 (0.00-0.056) ng/mL C-Reactive Protein < 0.2 (<1.0) mg/dL NT-Pro-B Natriuret Pep (0-125) pg/mL Total Protein 6.5 (6.4-8.2) g/dl Albumin 3.6 (3.4-5.0) g/dl Globulin 2.9 gm/dL Albumin/Globulin Ratio 1.2 (1-2) Lipase 199 (73-393) U/L Urine Color (Yellow) Urine Appearance (Clear) Urine pH (5.0-8.0) Ur Specific [place] (1.005-1.030) Urine Protein (Negative) Urine Glucose (UA) (Negative) Urine Ketones (Negative) Urine Occult Blood (Negative) Urine Nitrite (Negative) Urine Bilirubin (Negative) Urine Urobilinogen (0.2-1.0) Ur Leukocyte Esterase (Negative) Urine RBC (0-5) /hpf Urine WBC (0-5) /hpf Ur Squamous Epith Cells (0-5) /hpf Urine Bacteria (FEW) /hpf Urine Mucus (FEW) /hpf Ethyl Alcohol 0.36 (0.00) gm% 06/13/20 06/13/20 Range/Units 16:53 18:05 WBC (3.98-10.04) K/mm3 RBC (3.98-5.22) M/mm3 Hgb (11.2-15.7) gm/dl Hct (34.1-44.9) % MCV (79.4-94.8) fl MCH (25.6-32.2) pg MCHC (32.2-35.5) g/dl RDW Std Deviation (36.4-46.3) fL Plt Count (182-369) K/mm3 MPV (9.4-12.3) fl Neut % (Auto) (34.0-71.1) % Lymph % (Auto) (19.3-51.7) % [place] % (Auto) (4.7-12.5) % Eos % (Auto) (0.7-5.8) Baso % (Auto) (0.1-1.2) % Neut # (Auto) (1.56-6.13) K/mm3 Lymph # (Auto) (1.18-3.74) K/mm3 [place] # (Auto) (0.24-0.36) K/mm3 Eos # (Auto) (0.04-0.36) K/mm3 Baso # (Auto) (0.01-0.08) K/mm3 Manual Slide Review Sodium (136-145) mEq/L Potassium (3.5-5.1) mEq/L Chloride (98-107) mEq/L Carbon Dioxide (21-32) mEq/L Anion Gap (5-15) BUN (7-18) mg/dL Creatinine (0.55-1.02) mg/dL Est Cr Clr Drug Dosing mL/min Estimated GFR (MDRD) (>60) mL/min BUN/Creatinine Ratio (14-18) Glucose (80-115) mg/dL POC Glucose (70-99) mg/dL Calcium (8.5-10.1) mg/dL Magnesium (1.8-2.4) mg/dl Total Bilirubin (0.2-1.0) mg/dL AST (15-37) U/L ALT (14-59) U/L Alkaline Phosphatase (46-116) U/L Troponin I (0.00-0.056) ng/mL C-Reactive Protein (<1.0) mg/dL NT-Pro-B Natriuret Pep 70 (0-125) pg/mL Total Protein (6.4-8.2) g/dl Albumin (3.4-5.0) g/dl Globulin gm/dL Albumin/Globulin Ratio (1-2) Lipase (73-393) U/L Urine Color Yellow (Yellow) Urine Appearance Clear (Clear) Urine pH 5.5 (5.0-8.0) Ur Specific [place] 1.010 (1.005-1.030) Urine Protein Negative (Negative) Urine Glucose (UA) Negative (Negative) Urine Ketones Negative (Negative) Urine Occult Blood Negative (Negative) Urine Nitrite Negative (Negative) Urine Bilirubin Negative (Negative) Urine Urobilinogen 0.2 (0.2-1.0) Ur Leukocyte Esterase Negative (Negative) Urine RBC 0-5 (0-5) /hpf Urine WBC 0-5 (0-5) /hpf Ur Squamous Epith Cells 0-5 (0-5) /hpf Urine Bacteria Occasional (FEW) /hpf Urine Mucus Not seen (FEW) /hpf Ethyl Alcohol (0.00) gm% Medications Discontinued Medications Generic Name Dose Route Start Last Admin Trade Name Abelardo PRN Reason Stop Dose Admin Dextrose/Lactated Ringer's 1,000 mls @ 500 mls/hr 06/13/20 16:15 06/13/20 16:57 Dextrose 5%-Lactated Ringers IV 500 mls/hr ASDIRECTED STEPHANE Administration Dextrose/Lactated Ringer's 1,000 mls @ 999 mls/hr 06/13/20 18:15 06/13/20 19:26 Dextrose 5%-Lactated Ringers IV 999 mls/hr ASDIRECTED STEPHANE Administration Ondansetron HCl 4 mg 06/13/20 16:15 06/13/20 16:57 Ondansetron 4 Mg/2 Ml Sdv IVPUSH 06/13/20 16:16 4 mg ONETIME ONE Administration Re-Assessment/Re-Exam: 64-year-old female presents to the ED per [facility] after being found on her kitchen floor unresponsive but breathing. Patient has a history of chronic alcohol abuse and has visited the ED on a multitude of occasions. She just got out of treatment 2 days ago. A welfare check was done by her mother today who found her on the kitchen floor. Patient usually crawls around the kitchen floor to get around as she finds that she is too ataxic when she stands up and is prone to falling. 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 She is alert enough to answer all the questions appropriately. She is minimally dysarthric. Her breath does not smell strongly of alcohol. There is no outward signs of any injuries to her limbs. She appears to be mildly drowsy and a question whether she is taking excessive amount of medication. Plan routine labs will be obtained including a urine drug screen when urine becomes available. ECG to be done to check QT interval. Given Zofran 4 mg IV. IV will be D5 Ringer's lactate at open. Labs to include liver function coags and serum lipase levels. Re-Assessment/Re-Exam Date: 06/13/20 (Hematology reveals a slightly elevated white count at 11.33. The differential is 61.1% neutrophils. Hemoglobin is 13.2 with hematocrit of 42.5. MCV is 83.0. Platelet count is 355,000. Bedside glucose is 73.) Re-Assessment/Re-Exam Time: 18:15 (Sodium is 146 with a potassium of 4.3 chloride 108 with a bicarb of 23. Anion gap is 19.3. BUN is 11 with a creatinine of 0.5 GFR is greater than 60. Glucose is 89 in the lab was 73 at the bedside. Calcium is 7.8 again low from not eating magnesium 1.8 bilirubin 0.5 AST is 43. ALT is 46 alkaline phosphatase 100. Troponin I is less than 0.0 17. C-reactive protein is less than 0.2. BNP is 70. Total protein 6.5 with an albumin fraction of 3.6 globulin is 2.9 lipase is 199. Current blood alcohol level is 0.36 g%) Medical Clearance: 06/13/20 19:28 Miss Smith remains fast asleep. She almost always wants to go home when she awakens from medication and detoxes to a lower level of alcohol in her bloodstream. I will be leaving but I have discussed the case with Dr. Bryant she could be discharged at her leisure. Discharge notes have been written. Departure - Departure Time of Disposition: 22:40 Disposition: Home, Self-Care 01 Condition: Fair Clinical Impression: Acute alcohol intoxication Qualifiers: Complication of substance-induced condition: with delirium Qualified Code(s): F10.921 - Alcohol use, unspecified with intoxication delirium - Discharge Information *PRESCRIPTION DRUG MONITORING PROGRAM REVIEWED*: Not Applicable *COPY OF PRESCRIPTION DRUG MONITORING REPORT IN PATIENT ANTHONY: Not Applicable Instructions: Alcohol Intoxication, [id number] Referrals: Renard Verduzco MD [Primary Care Provider] - Forms: ED Department Discharge Additional Instructions: Evaluation in the emergency room today in regards to acute alcohol in toxication. You just got out of detox a few days ago but have elected to go back to drinking alcohol again. You are found unresponsive on your kitchen floor of your home today by your mother who did a welfare check on you. This is because you could not answer the phone. You indicated here that you had let yourself down to the floor and had not fallen and we found no overt signs of any injuries. You were treated with intravenous fluids x2 L to provide rehydration and correct metabolic acidosis from not eating or drinking fluids other than alcohol over the last couple of days. Blood alcohol today was 0.36 g%. You are hereby discharged to home. Of course we strongly urge you to try and refrain from drinking alcohol but that will be your decision. No one else can make you stop drinking. Sepsis Event Note (ED) - Evaluation Sepsis Screening Result: No Definite Risk - My Orders Last 24 Hours: My Active Orders 06/13/20 18:05 Insert Jeffries Catheter [Insert Urinary Catheter] [OM.PC] Q24H - Assessment/Plan Last 24 Hours: My Active Orders 06/13/20 18:05 Insert Jeffries Catheter [Insert Urinary Catheter] [OM.PC] Q24H
== END 2020-06-13 22:40 | disposition home or self-care (01) ==
LOC: JD.ED 15:54
DX: F10.921 Alcohol use, unspecified with intoxication delirium (principal); E78.00 Pure hypercholesterolemia, unspecified; I10 Essential (primary) hypertension; J45.909 Unspecified asthma, uncomplicated; K21.9 Gastro-esophageal reflux disease without esophagitis; Y90.8 Blood alcohol level of 240 mg/100 ml or more; Z88.1 Allergy status to other antibiotic agents; Z88.6 Allergy status to analgesic agent; Z79.899 Other long term (current) drug therapy
CPT/HCPCS: 36415; 80053; 80307; 81001; 82947; 83690; 83735; 83880; 84484; 85025; 86140; 93005; 96374; 99284; J2405; J7121; 93010

== ENCOUNTER 2020-06-15 08:30 | Inpatient (IN) | payer BC ==
[2020-06-15] MEDS ORDERED: Sodium Chloride 0.9% 1,000 ML IV ONE (09:33)
[2020-06-15] MEDS ORDERED: Ondansetron 4 MG/2 ML SDV IVPUSH ONE (09:34)
[2020-06-15] MEDS ORDERED: Potassium Chloride 20 MEQ Tab.ER PO ONE (09:37)
[2020-06-15] MEDS ORDERED: LORazepam 2 MG/ML SDV IVPUSH ONE ×2 (09:40→12:07)
--- NOTE | 2020-06-15 09:53 | EDM.PDOC ---
<Smitha Martinez V - Last Filed: 06/15/20 16:56> ED HPI GENERAL MEDICAL PROBLEM - General Chief Complaint: Drug or Alcohol Abuse Stated Complaint: [facility] Time Seen by Provider: 06/15/20 09:08 - Related Data Allergies Allergy/AdvReac Type Severity Reaction Status Date / Time levofloxacin [From Levaquin] Allergy Intermediate Rash Verified 06/15/20 08:38 propoxyphene napsylate AdvReac Mild Headache Verified 06/15/20 08:38 [From Darvocet-N] Home Meds: Home Meds Fluticasone Propion/Salmeterol [Advair 250-50 Diskus] 1 puff IH BID 05/24/16 [History] atorvaSTATin [Lipitor] 20 mg PO DAILY 05/24/16 [History] Albuterol Sulfate [Albuterol Sulfate Hfa] 2 puff PO Q4HR PRN 12/22/18 [History] Omeprazole 20 mg PO ACBREAKFAST 12/22/18 [History] Potassium Chloride 40 meq PO DAILY 12/22/18 [History] Sucralfate [Carafate] 1 gm PO QID 12/22/18 [History] Folic Acid 1 mg PO DAILY #30 tablet 12/23/18 [Rx] Thiamine [Vitamin B-1] 100 mg PO BEDTIME #30 tab 12/23/18 [Rx] Cranberry Fruit Extract [Cranberry] 500 mg PO DAILY 04/01/19 [History] Lutein/Minerals/Vit A,C & E [Ocuvite] 1 tab PO DAILY 04/01/19 [History] Montelukast [Singulair] 10 mg PO BEDTIME 04/01/19 [History] Metoprolol Tartrate 12.5 mg PO BID #1 tablet 03/18/20 [Rx] Topiramate [Topamax] 75 mg PO BEDTIME #1 tab 03/18/20 [Rx] chlorproMAZINE [Thorazine] 50 mg PO BEDTIME #1 tab 03/18/20 [Rx] fluvoxaMINE [Luvox] 50 mg PO BEDTIME #1 tablet 03/18/20 [Rx] DULoxetine [Cymbalta] 30 mg PO DAILY 04/14/20 [History] Losartan [Cozaar] 12.5 mg PO DAILY 04/14/20 [History] Mirtazapine 15 mg PO BEDTIME 04/14/20 [History] OLANZapine [Olanzapine] 10 mg PO BEDTIME 04/14/20 [History] Pantoprazole [ProTONIX] 40 mg PO BIDAC 04/14/20 [History] atenoloL [Atenolol] 25 mg PO DAILY 04/14/20 [History] lamoTRIgine [Lamotrigine] 100 mg PO DAILY 04/14/20 [History] OLANZapine [Olanzapine] 1 tab PO BEDTIME 06/15/20 [History] Course - Re-Assessments/Exams Free Text/Narrative Re-Assessment/Exam: 06/15/20 15:54 I have taken over this case from Araceli Dan NP. We have been working with Maribel, our [facility] high school social science teacher, and she is filing legal paperwork to have the patient placed in the [facility] at [place]. It does sound as if the patient might have transportation via [facility] department, tomorrow morning. So the patient will likely have to stay in this ER overnight. Patient was given some food to eat, and she was eating this without difficulty. 06/15/20 16:56 The patient was tentatively supposed to go to the [facility] at [place] for ongoing management however apparently they do not have any sort of beds for placement at this time. There has been quite a long drawn out discussion with our CNO Diana, our ER director Peg, telephonic case manager Hal, high school social science teacher Maribel, and between myself, and we have all come to agreement that she cannot go home safely and should be admitted to the hospital for failure to thrive, they are aware that this might be a prolonged admission. I think it would be completely appropriate to keep pushing [facility] in the morning to see if they have bed status available, and commit her to the [facility] as soon as possible for ongoing management. I have called Dr. Garland, and he accepts the patient at this time. Departure - Departure Time of Disposition: 15:55 Disposition: Admitted As Inpatient 68 Condition: Good Clinical Impression: Alcohol abuse, Failure to thrive in adult - Discharge Information <Sid Moran M - Last Filed: 06/16/20 07:37> ED HPI GENERAL MEDICAL PROBLEM - General Source of Information: Reports: Patient History Limitations: Reports: No Limitations - History of Present Illness INITIAL COMMENTS - FREE TEXT/NARRATIVE: 64-year-old female who is well-known to this emergency department due to significant history of alcohol abuse and intoxication presents today with wanting to get help to stop drinking alcohol. She states that she recently got out of the [facility] in [place] 4 days ago. Just prior to discharge she was given naltrexone injection to help her to stop drinking. She stated that she has received this injection in the past and was also reminded that it would cause her to not feel well post injection. She states that when she got home she found some alcohol on her her sink. She was brought into the emergency department 2 days ago with alcohol intoxication and she was given IV fluids and discharged to home at that time. She states that she was home last evening and found four "airplane shooters "under her sink and consumed them. She states that when she was in [place] they broke her cell phone so she does not have a way to call anyone. She states that this morning she went to her friend's house and asked her friend to call the ambulance so that she could be transported to the hospital because she did not feel well. She is requesting assistance to get help to stop drinking once again. She denies any recent fever, chills, cough, nausea, vomiting, diarrhea, or headache. She has obvious tremors noted in her hands. Past Medical History HEENT History: Reports: Impaired Vision Other HEENT History: wears glasses Cardiovascular History: Reports: High Cholesterol, Hypertension Respiratory History: Reports: Asthma Gastrointestinal History: Reports: GERD Genitourinary History: Reports: UTI, Recurrent CURRICULUM AND ASSESSMENT DIRECTOR History: Reports: Other (See Below) Other CURRICULUM AND ASSESSMENT DIRECTOR History: Patient states she started menopause at 54 yoa Musculoskeletal History: Reports: Arthritis, Other (See Below) Other Musculoskeletal History: knee/shoulder pain Neurological History: Reports: Headaches, Chronic Other Neuro History: headaches Psychiatric History: Reports: Addiction, Anxiety, Bipolar, Depression, Eating Disorders Other Psychiatric History: eating disorder at age 14 Endocrine/Metabolic History: Reports: Osteoporosis Hematologic History: Reports: None Immunologic History: Reports: Other (See Below) Other Immunologic History: recurrent staph infections Oncologic (Cancer) History: Reports: None - Infectious Disease History Infectious Disease History: Reports: Chicken Pox, Measles, Mumps - Past Surgical History Head Surgeries/Procedures: Reports: None HEENT Surgical History: Reports: Adenoidectomy, Oral Surgery, Tonsillectomy, Other (See Below) Other HEENT Surgeries/Procedures: facial surgery to fractures on right side of face from fall. Cardiovascular Surgical History: Reports: None Respiratory Surgical History: Reports: None Other Respiratory Surgeries/Procedures: per ER report GI Surgical History: Reports: Appendectomy Other GI Surgeries/Procedures: GI bleed Female Surgical History: Reports: None Other Female Surgeries/Procedures: Patient states she had her ureters dilated in [facility] Musculoskeletal Surgical History: Reports: ORIF, Shoulder Surgery, Other (See Below) Other Musculoskeletal Surgeries/Procedures:: wrist ORIF Social & Family History - Family History Family Medical History: No Pertinent Family History Cardiac: Reports: None Psychiatric: Reports: Other (See Below) Other Psychiatric Family History: 2 uncles ETOH abuse - Caffeine Use Caffeine Use: Reports: None Other Caffeine Use: Unknown if ever used due to being currently intoxicated. 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[employer]) ED ROS GENERAL - Review of Systems Review Of Systems: See Below Constitutional: Denies: Fever, Chills HEENT: Reports: Glasses Respiratory: Reports: No Symptoms Cardiovascular: Reports: No Symptoms Endocrine: Reports: No Symptoms GI/Abdominal: Reports: No Symptoms : Reports: No Symptoms Musculoskeletal: Reports: Other (History of ataxia and difficulty walking due to significant history of alcohol abuse) Skin: Reports: No Symptoms Neurological: Reports: No Symptoms Psychiatric: Reports: No Symptoms Hematologic/Lymphatic: Reports: No Symptoms Immunologic: Reports: No Symptoms ED EXAM, GENERAL - Physical Exam Exam: See Below Exam Limited By: No Limitations General Appearance: Alert, WD/WN, No Apparent Distress Ears: Normal External Exam, Hearing Grossly Normal Nose: Normal Inspection Throat/Mouth: Normal Inspection, Normal Lips, Normal Voice, No Airway Compromise Head: Atraumatic, Normocephalic Neck: Normal Inspection, Supple Respiratory/Chest: No Respiratory Distress, Lungs Clear, Normal Breath Sounds, No Accessory Muscle Use, Chest Non-Tender Cardiovascular: Normal Peripheral Pulses, No Edema, No Murmur, Tachycardia (Likely due to dehydration) Peripheral Pulses: 2+: Radial (L), Radial (R) GI/Abdominal: Normal Bowel Sounds, Soft, Non-Tender, No Distention (Female) Exam: Deferred Rectal (Female) Exam: Deferred Back Exam: Normal Inspection, Full Range of Motion Extremities: Normal Inspection, Normal Range of Motion, Non-Tender, No Pedal Edema, Normal Capillary Refill Neurological: Alert, Oriented, Normal Cognition, Other (Forgetful; frequently calling on the call light requesting the same thing as she had previously requested) Psychiatric: Anxious Skin Exam: Warm, Dry, Intact, Normal Color, No Rash Lymphatic: No Adenopathy #1 Interpretation EKG Date: 06/15/20 Time: 08:40 Rhythm: NSR Rate (Beats/Min): 111 [place]: Normal P-Wave: Present QRS: Normal ST-T: Normal QT: Normal EKG Interpretation Comments: Per Dr. Ng interpretation: Sinus tachycardia at 111 bpm; probable left atrial enlargement; borderline low voltage in the extremity leads; prolonged QT interval Course - Vital Signs Text/Narrative:: Patient has significant medical history for alcohol intoxication and dependence. Recently was discharged from [facility] days ago for inpatient alcohol treatment. Was seen in the emergency department 2 days ago for alcohol intoxication where she received IV fluids and then was discharged to home at that time. She did drink last evening and then this morning went to a friend's house and requested that her friend called the ambulance to be transported to the hospital. The patient appears unkempt and smells of urine. She is alert and oriented however easily forgetful as the second I walk out of the room she requests for me to go in and visit with her again and we have the same conversation that we had previous. She has visible tremors noted to her upper extremities. She complains of her feet cramping and is wanting to take her oral potassium that she takes daily. She states she has not eaten since she was discharged from [place]. I have ordered for nursing staff to consult [facility] to come and do an evaluation on the patient. I have also ordered IV fluids as she is likely dehydrated due to not eating or drinking anything other than alcohol over the course of the past 5 days. She does complain of feeling nauseated so I have ordered for the patient to receive a dose of Zofran as well. I have also ordered other baseline labs. I have requested for nursing staff to order her breakfast tray as well. Last Recorded V/S: Last Vital Signs Temp 97.9 F 06/16/20 03:25 Pulse 95 06/16/20 03:25 Resp 12 06/16/20 03:25 BP 146/77 H 06/16/20 03:25 Pulse Ox 97 06/16/20 03:25 - Orders/Labs/Meds Orders: Active Orders 24 hr Category Date Time Status Dextrose 5%-0.9% NaCl [Dextrose 5%-Normal Saline] 1,000 Med 06/15/20 11:45 Active ml IV ASDIRECTED EKG 12 Lead [EK] Stat Ther 06/15/20 08:42 Ordered Medication Orders Albuterol (Albuterol 6.7 Gm Inhaler) 0 gm INH Q4HR PRN PRN Reason: Shortness of Breath Atenolol (Atenolol 25 Mg Tab) 25 mg PO DAILY STEPHANE Duloxetine HCl (Duloxetine 30 Mg Cap) 30 mg PO DAILY STEPHANE Folic Acid (Folic Acid 1 Mg Tab) 1 mg PO DAILY STEPHANE Dextrose/Sodium Chloride (Dextrose 5%-Normal Saline) 1,000 mls @ 150 mls/hr IV ASDIRECTED STEPHANE Last Admin: 06/16/20 04:51 Dose: 150 mls/hr Documented by: Infusion: 06/16/20 04:51 Dose: 150 mls/hr Documented by: Admin: 06/15/20 22:15 Dose: 150 mls/hr Documented by: Infusion: 06/15/20 18:44 Dose: 150 mls/hr Documented by: Admin: 06/15/20 12:03 Dose: 150 mls/hr Documented by: MARI Mometasone Furoate/Formoterol Fumar (Formoterol/Mometasone 200-5 Mcg 8.8 Gm Inha ler) 0 puff IH BIDRT STEPHANE Last Admin: 06/16/20 06:16 Dose: Not Given Documented by: Admin: 06/15/20 23:04 Dose: Not Given Documented by: FREDA Non-Formulary Medication (Fluvoxamine) 50 mg PO BEDTIME STEPHANE Olanzapine (Olanzapine 5 Mg Tab) 10 mg PO ACDINNER SETPHANE Pantoprazole Sodium (Pantoprazole 40 Mg Tab.Cr) 40 mg PO BEDTIME STEPHANE Last Admin: 06/15/20 22:17 Dose: 40 mg Documented by: ADA Potassium Chloride (Potassium Chloride 20 Meq Tab.Er) 40 meq PO DAILY STEPHANE Simvastatin (Simvastatin 20 Mg Tab) 20 mg PO DAILY [facility] Sucralfate (Sucralfate 1 Gm Tab) 1 gm PO QID STEPHANE Last Admin: 06/15/20 22:17 Dose: 1 gm Documented by: ADA Thiamine HCl (Thiamine 100 Mg Tab) 100 mg PO BEDTIME STEPHANE Last Admin: 06/15/20 22:17 Dose: 100 mg Documented by: ADA Labs: Laboratory Tests 06/15/20 06/15/20 06/15/20 Range/Units 08:40 08:40 08:40 WBC 16.14 H (3.98-10.04) K/mm3 RBC 4.52 (3.98-5.22) M/mm3 Hgb 11.7 D (11.2-15.7) gm/dl Hct 37.5 (34.1-44.9) % MCV 83.0 (79.4-94.8) fl MCH 25.9 (25.6-32.2) pg MCHC 31.2 L (32.2-35.5) g/dl RDW Std Deviation 60.2 H (36.4-46.3) fL Plt Count 304 (182-369) K/mm3 MPV 9.2 L (9.4-12.3) fl Neut % (Auto) 84.4 H (34.0-71.1) % Lymph % (Auto) 8.3 L (19.3-51.7) % Leon % (Auto) 6.8 (4.7-12.5) % Eos % (Auto) 0.1 L (0.7-5.8) Baso % (Auto) 0.2 (0.1-1.2) % Neut # (Auto) 13.63 H (1.56-6.13) K/mm3 Lymph # (Auto) 1.34 (1.18-3.74) K/mm3 Leon # (Auto) 1.09 H (0.24-0.36) K/mm3 Eos # (Auto) 0.02 L (0.04-0.36) K/mm3 Baso # (Auto) 0.03 (0.01-0.08) K/mm3 Manual Slide Review Abnormal smear Sodium 141 (136-145) mEq/L Potassium 3.8 (3.5-5.1) mEq/L Chloride 103 (98-107) mEq/L Carbon Dioxide 24 (21-32) mEq/L Anion Gap 17.8 H (5-15) BUN 13 (7-18) mg/dL Creatinine 0.6 (0.55-1.02) mg/dL Est Cr Clr Drug Dosing 83.54 mL/min Estimated GFR (MDRD) > 60 (>60) mL/min BUN/Creatinine Ratio 21.7 H (14-18) Glucose 89 (80-115) mg/dL Calcium 7.8 L (8.5-10.1) mg/dL Magnesium (1.8-2.4) mg/dl Total Bilirubin 0.6 (0.2-1.0) mg/dL AST 61 H (15-37) U/L ALT 57 (14-59) U/L Alkaline Phosphatase 91 (46-116) U/L C-Reactive Protein <0.2 (<1.0) mg/dL Total Protein 6.0 L (6.4-8.2) g/dl Albumin 3.5 (3.4-5.0) g/dl Globulin 2.5 gm/dL Albumin/Globulin Ratio 1.4 (1-2) TSH 3rd Generation 0.563 (0.358-3.74) uIU/mL Urine Color (Yellow) Urine Appearance (Clear) Urine pH (5.0-8.0) Ur Specific [place] (1.005-1.030) Urine Protein (Negative) Urine Glucose (UA) (Negative) Urine Ketones (Negative) Urine Occult Blood (Negative) Urine Nitrite (Negative) Urine Bilirubin (Negative) Urine Urobilinogen (0.2-1.0) Ur Leukocyte Esterase (Negative) Urine RBC (0-5) /hpf Urine WBC (0-5) /hpf Ur Epithelial Cells (0-5) /hpf Urine Bacteria (FEW) /hpf Urine Mucus (FEW) /hpf Salicylates (2.8-20) mg/dL Urine Opiates Screen (AMANOM=274) Ur Buprenorphine Scrn (CUTOFF=10) Ur Oxycodone Screen (DAE5IK=310) Urine Methadone Screen (GAWXAD=401) Ur Propoxyphene Screen (KXEADP=489) Acetaminophen (10-30) ug/mL Ur Barbiturates Screen (AHSZID=415) Ur Tricyclics Screen (WQUBUI=936) Ur Phencyclidine Scrn (CUTOFF=25) Ur Amphetamine Screen (ILILLO=963) U Methamphetamines Scrn (NHZWXE=990) U Benzodiazepines Scrn (WTEFYH=029) U Cocaine Metab Screen (UNMHNF=372) U Marijuana (THC) Screen (CUTOFF=50) Ethyl Alcohol 0.06 (0.00) gm% SARS-CoV-2 RNA (DODIE) (NEGATIVE) 06/15/20 06/15/20 06/15/20 Range/Units 08:40 08:40 09:15 WBC (3.98-10.04) K/mm3 RBC (3.98-5.22) M/mm3 Hgb (11.2-15.7) gm/dl Hct (34.1-44.9) % MCV (79.4-94.8) fl MCH (25.6-32.2) pg MCHC (32.2-35.5) g/dl RDW Std Deviation (36.4-46.3) fL Plt Count (182-369) K/mm3 MPV (9.4-12.3) fl Neut % (Auto) (34.0-71.1) % Lymph % (Auto) (19.3-51.7) % Leon % (Auto) (4.7-12.5) % Eos % (Auto) (0.7-5.8) Baso % (Auto) (0.1-1.2) % Neut # (Auto) (1.56-6.13) K/mm3 Lymph # (Auto) (1.18-3.74) K/mm3 Leon # (Auto) (0.24-0.36) K/mm3 Eos # (Auto) (0.04-0.36) K/mm3 Baso # (Auto) (0.01-0.08) K/mm3 Manual Slide Review Sodium (136-145) mEq/L Potassium (3.5-5.1) mEq/L Chloride (98-107) mEq/L Carbon Dioxide (21-32) mEq/L Anion Gap (5-15) BUN (7-18) mg/dL Creatinine (0.55-1.02) mg/dL Est Cr Clr Drug Dosing mL/min Estimated GFR (MDRD) (>60) mL/min BUN/Creatinine Ratio (14-18) Glucose (80-115) mg/dL Calcium (8.5-10.1) mg/dL Magnesium (1.8-2.4) mg/dl Total Bilirubin (0.2-1.0) mg/dL AST (15-37) U/L ALT (14-59) U/L Alkaline Phosphatase (46-116) U/L C-Reactive Protein (<1.0) mg/dL Total Protein (6.4-8.2) g/dl Albumin (3.4-5.0) g/dl Globulin gm/dL Albumin/Globulin Ratio (1-2) TSH 3rd Generation (0.358-3.74) uIU/mL Urine Color (Yellow) Urine Appearance (Clear) Urine pH (5.0-8.0) Ur Specific [place] (1.005-1.030) Urine Protein (Negative) Urine Glucose (UA) (Negative) Urine Ketones (Negative) Urine Occult Blood (Negative) Urine Nitrite (Negative) Urine Bilirubin (Negative) Urine Urobilinogen (0.2-1.0) Ur Leukocyte Esterase (Negative) Urine RBC (0-5) /hpf Urine WBC (0-5) /hpf Ur Epithelial Cells (0-5) /hpf Urine Bacteria (FEW) /hpf Urine Mucus (FEW) /hpf Salicylates 0.1 L (2.8-20) mg/dL Urine Opiates Screen (REUDKC=513) Ur Buprenorphine Scrn (CUTOFF=10) Ur Oxycodone Screen (NFF3YX=124) Urine Methadone Screen (QNOWTB=363) Ur Propoxyphene Screen (PRVHWG=969) Acetaminophen 0 L (10-30) ug/mL Ur Barbiturates Screen (JJBPCS=417) Ur Tricyclics Screen (EDTELS=754) Ur Phencyclidine Scrn (CUTOFF=25) Ur Amphetamine Screen (ECOJFJ=364) U Methamphetamines Scrn (WCSNLZ=707) U Benzodiazepines Scrn (JNTJBQ=134) U Cocaine Metab Screen (RTUMGQ=204) U Marijuana (THC) Screen (CUTOFF=50) Ethyl Alcohol (0.00) gm% SARS-CoV-2 RNA (DODIE) Negative (NEGATIVE) 06/15/20 06/15/20 06/15/20 Range/Units 09:54 09:54 09:59 WBC (3.98-10.04) K/mm3 RBC (3.98-5.22) M/mm3 Hgb (11.2-15.7) gm/dl Hct (34.1-44.9) % MCV (79.4-94.8) fl MCH (25.6-32.2) pg MCHC (32.2-35.5) g/dl RDW Std Deviation (36.4-46.3) fL Plt Count (182-369) K/mm3 MPV (9.4-12.3) fl Neut % (Auto) (34.0-71.1) % Lymph % (Auto) (19.3-51.7) % Leon % (Auto) (4.7-12.5) % Eos % (Auto) (0.7-5.8) Baso % (Auto) (0.1-1.2) % Neut # (Auto) (1.56-6.13) K/mm3 Lymph # (Auto) (1.18-3.74) K/mm3 Leon # (Auto) (0.24-0.36) K/mm3 Eos # (Auto) (0.04-0.36) K/mm3 Baso # (Auto) (0.01-0.08) K/mm3 Manual Slide Review Sodium (136-145) mEq/L Potassium (3.5-5.1) mEq/L Chloride (98-107) mEq/L Carbon Dioxide (21-32) mEq/L Anion Gap (5-15) BUN (7-18) mg/dL Creatinine (0.55-1.02) mg/dL Est Cr Clr Drug Dosing mL/min Estimated GFR (MDRD) (>60) mL/min BUN/Creatinine Ratio (14-18) Glucose (80-115) mg/dL Calcium (8.5-10.1) mg/dL Magnesium 1.3 L (1.8-2.4) mg/dl Total Bilirubin (0.2-1.0) mg/dL AST (15-37) U/L ALT (14-59) U/L Alkaline Phosphatase (46-116) U/L C-Reactive Protein (<1.0) mg/dL Total Protein (6.4-8.2) g/dl Albumin (3.4-5.0) g/dl Globulin gm/dL Albumin/Globulin Ratio (1-2) TSH 3rd Generation (0.358-3.74) uIU/mL Urine Color Yellow (Yellow) Urine Appearance Clear (Clear) Urine pH 7.0 (5.0-8.0) Ur Specific [place] 1.025 (1.005-1.030) Urine Protein Trace H (Negative) Urine Glucose (UA) Negative (Negative) Urine Ketones Negative (Negative) Urine Occult Blood Negative (Negative) Urine Nitrite Negative (Negative) Urine Bilirubin Negative (Negative) Urine Urobilinogen 0.2 (0.2-1.0) Ur Leukocyte Esterase Negative (Negative) Urine RBC Not seen (0-5) /hpf Urine WBC 0-5 (0-5) /hpf Ur Epithelial Cells Not seen (0-5) /hpf Urine Bacteria Moderate H (FEW) /hpf Urine Mucus Few (FEW) /hpf Salicylates (2.8-20) mg/dL Urine Opiates Screen Negative (OPLZGI=349) Ur Buprenorphine Scrn Negative (CUTOFF=10) Ur Oxycodone Screen Negative (EPE3CD=680) Urine Methadone Screen Negative (XEZKTC=875) Ur Propoxyphene Screen Negative (AVMHAG=363) Acetaminophen (10-30) ug/mL Ur Barbiturates Screen Negative (COLBLF=987) Ur Tricyclics Screen Negative (JPXHKP=045) Ur Phencyclidine Scrn Negative (CUTOFF=25) Ur Amphetamine Screen Negative (MVGRQX=057) U Methamphetamines Scrn Negative (QKVIOF=447) U Benzodiazepines Scrn Negative (FHJWSF=819) U Cocaine Metab Screen Negative (MTXSEE=624) U Marijuana (THC) Screen Negative (CUTOFF=50) Ethyl Alcohol (0.00) gm% SARS-CoV-2 RNA (DODIE) (NEGATIVE) Meds: Medications Generic Name Dose Route Start Last Admin Trade Name Freq PRN Reason Stop Dose Admin Albuterol 0 gm 06/15/20 20:08 Albuterol 6.7 Gm Inhaler INH Q4HR PRN Shortness of Breath Atenolol 25 mg 06/16/20 09:00 Atenolol 25 Mg Tab PO DAILY STEPHANE Duloxetine HCl 30 mg 06/16/20 09:00 Duloxetine 30 Mg Cap PO DAILY STEPHANE Folic Acid 1 mg 06/16/20 09:00 Folic Acid 1 Mg Tab PO DAILY STEPHANE Dextrose/Sodium Chloride 1,000 mls @ 150 mls/hr 06/15/20 11:45 06/16/20 04:51 Dextrose 5%-Normal Saline IV 150 mls/hr ASDIRECTED STEPHANE Administration Mometasone Furoate/Formoterol Fumar 0 puff 06/15/20 22:00 06/16/20 06:16 Formoterol/Mometasone 200-5 Mcg 8.8 Gm Inhaler IH Not Given BIDRT STEPHANE Non-Formulary Medication 50 mg 06/15/20 21:00 Fluvoxamine PO BEDTIME STEPHANE Olanzapine 10 mg 06/16/20 16:00 Olanzapine 5 Mg Tab PO ACDINNER STEPHANE Pantoprazole Sodium 40 mg 06/15/20 21:00 06/15/20 22:17 Pantoprazole 40 Mg Tab.Cr PO 40 mg BEDTIME STEPHANE Administration Potassium Chloride 40 meq 06/16/20 09:00 Potassium Chloride 20 Meq Tab.Er PO DAILY STEPHANE Simvastatin 20 mg 06/16/20 09:00 Simvastatin 20 Mg Tab PO DAILY STEPHANE Sucralfate 1 gm 06/15/20 22:00 06/15/20 22:17 Sucralfate 1 Gm Tab PO 1 gm QID STEPHANE Administration Thiamine HCl 100 mg 06/15/20 22:00 06/15/20 22:17 Thiamine 100 Mg Tab PO 100 mg BEDTIME STEPHANE Administration Discontinued Medications Generic Name Dose Route Start Last Admin Trade Name Freq PRN Reason Stop Dose Admin Sodium Chloride 1,000 mls @ 999 mls/hr 06/15/20 09:33 06/15/20 09:48 Normal Saline IV 06/15/20 10:33 999 mls/hr ONETIME ONE Administration Magnesium Sulfate 4 gm/ Premix 50 mls @ 12.5 mls/hr 06/15/20 10:34 06/15/20 10:47 IV 06/15/20 14:33 12.5 mls/hr ONETIME ONE Administration Lamotrigine 100 mg 06/15/20 20:08 06/15/20 22:20 Lamotrigine 100 Mg Tab PO 06/15/20 20:09 100 mg ONETIME ONE Administration Lorazepam 0.5 mg 06/15/20 09:40 06/15/20 09:48 Lorazepam 2 Mg/Ml Sdv IVPUSH 06/15/20 09:41 0.5 mg ONETIME ONE Administration Lorazepam 0.5 mg 06/15/20 12:07 06/15/20 12:11 Lorazepam 2 Mg/Ml Sdv IVPUSH 06/15/20 12:08 0.5 mg ONETIME ONE Administration Ondansetron HCl 4 mg 06/15/20 09:34 06/15/20 09:48 Ondansetron 4 Mg/2 Ml Sdv IVPUSH 06/15/20 09:35 4 mg ONETIME ONE Administration Potassium Chloride 20 meq 06/15/20 09:37 06/15/20 09:48 Potassium Chloride 20 Meq Tab.Er PO 06/15/20 09:38 20 meq ONETIME ONE Administration - Re-Assessments/Exams Free Text/Narrative Re-Assessment/Exam: 06/15/20 10:37 Hematology reveals a WBC of 16.14, hemoglobin 11.7, hematocrit 37.5, platelet count 304, chemistry reveals a sodium of 141, potassium of 3.8, carbon dioxide is 24, anion gap 17.8, BUN 13, creatinine 0.6, BUN/creatinine ratio 21.7, glucose 89, calcium 7.8, magnesium 1.3, AST 61, ALT 57, alk phos 91, C-reactive protein less than 0.2, total protein 6.0, TSH 0.563 Urine protein trace, otherwise unremarkable Patient is Covid negative Patient's elevated white count is likely due to dehydration as her anion gap and BUN/creatinine ratio are elevated. C-reactive protein is negative. Patient will receive 4 g of magnesium IV. Lexi stout was here to evaluate the patient and initially they stated they would take her however once the nurse to nurse conversation took place they refused her admit due to the fact that she is incontinent and is unable to ambulate due to her ataxia. Nursing staff is contacting our hospital high school social science teacher to assist with placement of this patient. 06/15/20 10:55 Toxicology reveals a salicylate level of 0.1, urine drug screen is negative, ethyl alcohol 0.06 06/15/20 12:24 Hospital high school social science teacher notifies me that the patient will be accepted into the [facility] if she is able to ambulate. I have asked nursing staff to ambulate the patient. 06/15/20 12:41 Observe the patient ambulating in the [place]. Her gait is very unsteady and shaky. Patient frequently having to hold onto the handrail in the hallways to ambulate. I did call our high school social science teacher and updated her and she states she will contact the [facility]. 06/15/20 14:43 Nurse from the [facility] here to evaluate the patient. She states at this time they a re not able to take the patient into the [facility] as she is not able to get up and ambulate independently, eat, or shower herself. Hospital high school social science teacher was here to visit with the nurse from the [facility] and she states that we will move forward with having the patient admitted to the [facility]. Sepsis Event Note (ED) - Evaluation Sepsis Screening Result: No Definite Risk - My Orders Last 24 Hours: My Active Orders 06/15/20 08:42 EKG 12 Lead [EK] Stat 06/15/20 11:45 Dextrose 5%-0.9% NaCl [Dextrose 5%-Normal Saline] 1,000 ml IV ASDIRECTED - Assessment/Plan Last 24 Hours: My Active Orders 06/15/20 08:42 EKG 12 Lead [EK] Stat 06/15/20 11:45 Dextrose 5%-0.9% NaCl [Dextrose 5%-Normal Saline] 1,000 ml IV ASDIRECTED
[2020-06-15] MEDS ORDERED: Magnesium Sulfate/Water 4 GM in Premix Bag 1 BAG IV ONE (10:34)
[2020-06-15] MEDS: Dextrose 5%-0.9% NaCl 1,000 ML IV SCH ×2 (12:03→22:15)
--- NOTE | 2020-06-15 18:12 | PCM.HP.2 ---
H&P History of Present Illness - General Date of Service: 06/15/20 Admit Problem/Dx: Admission Diagnosis/Problem Admission Diagnosis/Problem Failure to thrive in adult/etoh abuse Source of Information: Patient, EMS, Provider, RN, Other History Limitations: Reports: Altered Mental Status, Intoxication - History of Present Illness Initial Comments - Free Text/Narative: 06/15/20 64 year old female who presents requesting help to quit drinking and care for herself as she relapsed when she returned home from in patient treatment program for chronic etoh abuse. she has become increasingly aware of her inability to care for self and is incontinent, and unkept and disheveled. she drank 10 minis in her house over weekend and was seen in [facility] but returned home. she states she has not been able to drink since yest. because she ran out. she has increasingly severe balance and falling problems and gets diarrhea after drinking. she was brought by ambulance after a neighbor called for her. she c/o diarrhea,cramps in legs and feet and feeling lousy .she is frustrated at her relapse she states. she wants some pelvic exercises to do for incontinance.she cannot cook for herself even whennot drinking. she cannot clean and her new carpet is ruined by stains but she wants to get it cleaned and throw out the mattresses. she is incont. at night and during day when she drinks. she feels anxious and has mild tremors but does not think she will go into withdrawal. she denies cough,fever,choking,vomiting or ingesting anything besides the " 10 minis." she denies hitting head or falling but was witnessed to be very samm xic and stumbling today and previously .she denies seizures or losing concessness. she remembers me but not my name (we are fairly acquainted). she does remeber my occupation , year but not date or month or does remember day of week. she remebers treatment in [place] and just got out 5 days ago(correct). patient was noted to have low mag. and given 4 grams i.v. she had level of .06 .30 saturday. labs otherwise fairly normal . meds extensive and not sure if she is taking them(can't remember) . Onset of Symptoms: Reports: Gradual Duration of Symptoms: Reports: Day(s): (5) Context: Reports: Other (incontinance when she started drinking 5 days ago.) Associated Symptoms: Reports: Confusion, Cough, Malaise. Denies: Fever/Chills, Headaches, Loss of Appetite, Nausea/Vomiting, Seizure, Shortness of Breath - Related Data Allergies/Adverse Reactions: Allergies Allergy/AdvReac Type Severity Reaction Status Date / Time levofloxacin [From Levaquin] Allergy Intermediate Rash Verified 06/15/20 08:38 propoxyphene napsylate AdvReac Mild Headache Verified 06/15/20 08:38 [From Darvocet-N] Home Medications: Home Meds Fluticasone Propion/Salmeterol [Advair 250-50 Diskus] 1 puff IH DAILY 05/24/16 [History] atorvaSTATin [Lipitor] 20 mg PO DAILY 05/24/16 [History] Albuterol Sulfate [Albuterol Sulfate Hfa] 2 puff PO Q4HR PRN 12/22/18 [History] Omeprazole 20 mg PO ACBREAKFAST 12/22/18 [History] Potassium Chloride 20 meq PO DAILY 12/22/18 [History] Sucralfate [Carafate] 1 gm PO QID 12/22/18 [History] Folic Acid 1 mg PO DAILY #30 tablet 12/23/18 [Rx] Thiamine [Vitamin B-1] 100 mg PO BEDTIME #30 tab 12/23/18 [Rx] Cranberry Fruit Extract [Cranberry] 0 mg PO DAILY 04/01/19 [History] Lutein/Minerals/Vit A,C & E [Ocuvite] 1 tab PO DAILY 04/01/19 [History] Montelukast [Singulair] 10 mg PO BEDTIME 04/01/19 [History] Metoprolol Tartrate 12.5 mg PO BID #1 tablet 03/18/20 [Rx] Topiramate [Topamax] 75 mg PO BEDTIME #1 tab 03/18/20 [Rx] chlorproMAZINE [Thorazine] 50 mg PO BEDTIME #1 tab 03/18/20 [Rx] fluvoxaMINE [Luvox] 50 mg PO BEDTIME #1 tablet 03/18/20 [Rx] DULoxetine [Cymbalta] 30 mg PO DAILY 04/14/20 [History] Losartan [Cozaar] 25 mg PO 04/14/20 [History] Mirtazapine 15 mg PO 04/14/20 [History] OLANZapine [Olanzapine] 10 mg PO 04/14/20 [History] Pantoprazole [ProTONIX] 40 mg PO 04/14/20 [History] atenoloL [Atenolol] 25 mg PO 04/14/20 [History] lamoTRIgine [Lamotrigine] 100 mg PO 04/14/20 [History] Past Medical History HEENT History: Reports: Impaired Vision Other HEENT History: wears glasses Cardiovascular History: Reports: None, High Cholesterol, Hypertension Respiratory History: Reports: None, Asthma Gastrointestinal History: Reports: Chronic Diarrhea, GERD, Irritable Bowel Syndrome Genitourinary History: Reports: Urinary Incontinence, UTI, Recurrent QUALITY CONTROL CHECKER History: Reports: Other (See Below) Other OB/BYN History: Patient states she started menopause at 54 yoa Musculoskeletal History: Reports: None, Arthritis, Other (See Below) Other Musculoskeletal History: knee/shoulder pain Neurological History: Reports: Headaches, Chronic Other Neuro History: headaches Psychiatric History: Reports: Addiction, Anxiety, Bipolar, Depression, Eating Disorders Other Psychiatric History: eating disorder at age 14 Endocrine/Metabolic History: Reports: Osteoporosis Immunologic History: Reports: Other (See Below) Other Immunologic History: recurrent staph infections Oncologic (Cancer) History: Reports: None - Infectious Disease History Infectious Disease History: Reports: Chicken Pox, Measles, Mumps - Past Surgical History Head Surgeries/Procedures: Reports: None HEENT Surgical History: Reports: Adenoidectomy, Oral Surgery, Tonsillectomy, Other (See Below) Other HEENT Surgeries/Procedures: facial surgery to fractures on right side of face from fall. Cardiovascular Surgical History: Reports: None Respiratory Surgical History: Reports: None Other Respiratory Surgeries/Procedures: per ER report GI Surgical History: Reports: Appendectomy Other GI Surgeries/Procedures: GI bleed Female Surgical History: Reports: None Other Female Surgeries/Procedures: Patient states she had her ureters dilated in [facility] Musculoskeletal Surgical History: Reports: ORIF, Shoulder Surgery, Other (See Below) Other Musculoskeletal Surgeries/Procedures:: wrist ORIF Social & Family History - Family History Family Medical History: No Pertinent Family History Cardiac: Reports: None Psychiatric: Reports: Other (See Below) Other Psychiatric Family History: 2 uncles ETOH abuse - Caffeine Use Caffeine Use: Reports: None Other Caffeine Use: Unknown if ever used due to being currently intoxicated. 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 Denies: Fever, Chills HEENT: Reports: No Symptoms Pulmonary: Reports: No Symptoms Cardiovascular: Reports: No Symptoms Gastrointestinal: Reports: Diarrhea Genitourinary: Reports: Incontinence. Denies: Burning Musculoskeletal: Reports: Muscle Pain Skin: Reports: No Symptoms Psychiatric: Reports: Confusion, Anxiety. Denies: Suicidal Ideation, Hallucinations (Auditory), Hallucinations (Visual) Neurological: Reports: Confusion, Tremors, Difficulty Walking. Denies: Seizure Hematologic/Lymphatic: Reports: No Symptoms Immunologic: Reports: No Symptoms Exam - Exam Exam: See Below - Vital Signs Vital Signs: Last Vital Signs Temp 36.8 C 06/15/20 08:33 Pulse 110 H 06/15/20 08:33 Resp 18 06/15/20 08:33 BP 149/94 H 06/15/20 08:33 Pulse Ox 96 06/15/20 08:33 Weight: 54.431 kg - Exam General: Alert, Oriented, 4 HEENT: PERRLA, Hearing Intact, Mucosa Moist & Kidron, Nares Patent, Normal Nasal Septum, Posterior Pharynx Clear, Conjunctiva Clear, EOMI, EACs Clear, TMs Clear Neck: Supple, Trachea Midline, 2 Lungs: Clear to Auscultation, Normal Respiratory Effort Cardiovascular: Regular Rate, Regular Rhythm GI/Abdominal Exam: Normal Bowel Sounds, Soft, Non-Tender, No Organomegaly, No Distention, No Abnormal Bruit, No Mass, Pelvis Stable (Female) Exam: Normal External Exam, Normal Speculum Exam, Normal Bimanual Exam, Other (initially unkept and unclean with urine and feces) Rectal (Female) Exam: Normal Exam, Normal Rectal Tone Back Exam: Normal Inspection, Full Range of Motion, NT Extremities: Normal Inspection, Normal Range of Motion, Non-Tender, No Pedal Edema, Normal Capillary Refill Skin: Warm, Dry, Intact Neurological: Cranial Nerves Intact, Reflexes Equal Bilateral Neuro Extensive - Mental Status: Alert, Oriented x3, Normal Mood/Affect, Normal Cognition Neuro Extensive - Motor, Sensory, Reflexes: CN II-XII Intact, Normal Gait, Normal Reflexes Psychiatric: Alert, Normal Affect, Normal Mood - Patient Data Lab Results Last 24 hrs: Laboratory Results - last 24 hr 06/15/20 06/15/20 06/15/20 Range/Units 08:40 08:40 08:40 WBC 16.14 H (3.98-10.04) K/mm3 RBC 4.52 (3.98-5.22) M/mm3 Hgb 11.7 D (11.2-15.7) gm/dl Hct 37.5 (34.1-44.9) % MCV 83.0 (79.4-94.8) fl MCH 25.9 (25.6-32.2) pg MCHC 31.2 L (32.2-35.5) g/dl RDW Std Deviation 60.2 H (36.4-46.3) fL Plt Count 304 (182-369) K/mm3 MPV 9.2 L (9.4-12.3) fl Neut % (Auto) 84.4 H (34.0-71.1) % Lymph % (Auto) 8.3 L (19.3-51.7) % [place] % (Auto) 6.8 (4.7-12.5) % Eos % (Auto) 0.1 L (0.7-5.8) Baso % (Auto) 0.2 (0.1-1.2) % Neut # (Auto) 13.63 H (1.56-6.13) K/mm3 Lymph # (Auto) 1.34 (1.18-3.74) K/mm3 [place] # (Auto) 1.09 H (0.24-0.36) K/mm3 Eos # (Auto) 0.02 L (0.04-0.36) K/mm3 Baso # (Auto) 0.03 (0.01-0.08) K/mm3 Manual Slide Review Abnormal smear Sodium 141 (136-145) mEq/L Potassium 3.8 (3.5-5.1) mEq/L Chloride 103 (98-107) mEq/L Carbon Dioxide 24 (21-32) mEq/L Anion Gap 17.8 H (5-15) BUN 13 (7-18) mg/dL Creatinine 0.6 (0.55-1.02) mg/dL Est Cr Clr Drug Dosing 83.54 mL/min Estimated GFR (MDRD) > 60 (>60) mL/min BUN/Creatinine Ratio 21.7 H (14-18) Glucose 89 (80-115) mg/dL Calcium 7.8 L (8.5-10.1) mg/dL Magnesium (1.8-2.4) mg/dl Total Bilirubin 0.6 (0.2-1.0) mg/dL AST 61 H (15-37) U/L ALT 57 (14-59) U/L Alkaline Phosphatase 91 (46-116) U/L C-Reactive Protein <0.2 (<1.0) mg/dL Total Protein 6.0 L (6.4-8.2) g/dl Albumin 3.5 (3.4-5.0) g/dl Globulin 2.5 gm/dL Albumin/Globulin Ratio 1.4 (1-2) TSH 3rd Generation 0.563 (0.358-3.74) uIU/mL Urine Color (Yellow) Urine Appearance (Clear) Urine pH (5.0-8.0) Ur Specific [place] (1.005-1.030) Urine Protein (Negative) Urine Glucose (UA) (Negative) Urine Ketones (Negative) Urine Occult Blood (Negative) Urine Nitrite (Negative) Urine Bilirubin (Negative) Urine Urobilinogen (0.2-1.0) Ur Leukocyte Esterase (Negative) Urine RBC (0-5) /hpf Urine WBC (0-5) /hpf Ur Epithelial Cells (0-5) /hpf Urine Bacteria (FEW) /hpf Urine Mucus (FEW) /hpf Salicylates (2.8-20) mg/dL Urine Opiates Screen (ZEMMFC=029) Ur Buprenorphine Scrn (CUTOFF=10) Ur Oxycodone Screen (GFJ3RH=395) Urine Methadone Screen (OAWXED=212) Ur Propoxyphene Screen (SUCSMB=388) Acetaminophen (10-30) ug/mL Ur Barbiturates Screen (YZFKLY=063) Ur Tricyclics Screen (YVWFEI=314) Ur Phencyclidine Scrn (CUTOFF=25) Ur Amphetamine Screen (TFGXWA=745) U Methamphetamines Scrn (JLLMUO=821) U Benzodiazepines Scrn (HBHBUZ=778) U Cocaine Metab Screen (YCFMQH=854) U Marijuana (THC) Screen (CUTOFF=50) Ethyl Alcohol 0.06 (0.00) gm% SARS-CoV-2 RNA (DODIE) (NEGATIVE) 06/15/20 06/15/20 06/15/20 Range/Units 08:40 08:40 09:15 WBC (3.98-10.04) K/mm3 RBC (3.98-5.22) M/mm3 Hgb (11.2-15.7) gm/dl Hct (34.1-44.9) % MCV (79.4-94.8) fl MCH (25.6-32.2) pg MCHC (32.2-35.5) g/dl RDW Std Deviation (36.4-46.3) fL Plt Count (182-369) K/mm3 MPV (9.4-12.3) fl Neut % (Auto) (34.0-71.1) % Lymph % (Auto) (19.3-51.7) % [place] % (Auto) (4.7-12.5) % Eos % (Auto) (0.7-5.8) Baso % (Auto) (0.1-1.2) % Neut # (Auto) (1.56-6.13) K/mm3 Lymph # (Auto) (1.18-3.74) K/mm3 [place] # (Auto) (0.24-0.36) K/mm3 Eos # (Auto) (0.04-0.36) K/mm3 Baso # (Auto) (0.01-0.08) K/mm3 Manual Slide Review Sodium (136-145) mEq/L Potassium (3.5-5.1) mEq/L Chloride (98-107) mEq/L Carbon Dioxide (21-32) mEq/L Anion Gap (5-15) BUN (7-18) mg/dL Creatinine (0.55-1.02) mg/dL Est Cr Clr Drug Dosing mL/min Estimated GFR (MDRD) (>60) mL/min BUN/Creatinine Ratio (14-18) Glucose (80-115) mg/dL Calcium (8.5-10.1) mg/dL Magnesium (1.8-2.4) mg/dl Total Bilirubin (0.2-1.0) mg/dL AST (15-37) U/L ALT (14-59) U/L Alkaline Phosphatase (46-116) U/L C-Reactive Protein (<1.0) mg/dL Total Protein (6.4-8.2) g/dl Albumin (3.4-5.0) g/dl Globulin gm/dL Albumin/Globulin Ratio (1-2) TSH 3rd Generation (0.358-3.74) uIU/mL Urine Color (Yellow) Urine Appearance (Clear) Urine pH (5.0-8.0) Ur Specific [place] (1.005-1.030) Urine Protein (Negative) Urine Glucose (UA) (Negative) Urine Ketones (Negative) Urine Occult Blood (Negative) Urine Nitrite (Negative) Urine Bilirubin (Negative) Urine Urobilinogen (0.2-1.0) Ur Leukocyte Esterase (Negative) Urine RBC (0-5) /hpf Urine WBC (0-5) /hpf Ur Epithelial Cells (0-5) /hpf Urine Bacteria (FEW) /hpf Urine Mucus (FEW) /hpf Salicylates 0.1 L (2.8-20) mg/dL Urine Opiates Screen (QVVSZY=807) Ur Buprenorphine Scrn (CUTOFF=10) Ur Oxycodone Screen (RRM7SB=991) Urine Methadone Screen (WZIYYJ=328) Ur Propoxyphene Screen (ZYTJCU=828) Acetaminophen 0 L (10-30) ug/mL Ur Barbiturates Screen (FMDBII=827) Ur Tricyclics Screen (ZVRDEL=277) Ur Phencyclidine Scrn (CUTOFF=25) Ur Amphetamine Screen (OMAYWN=728) U Methamphetamines Scrn (VHEUFL=940) U Benzodiazepines Scrn (KGTAMH=260) U Cocaine Metab Screen (ONJTAN=500) U Marijuana (THC) Screen (CUTOFF=50) Ethyl Alcohol (0.00) gm% SARS-CoV-2 RNA (DODIE) Negative (NEGATIVE) 06/15/20 06/15/20 06/15/20 Range/Units 09:54 09:54 09:59 WBC (3.98-10.04) K/mm3 RBC (3.98-5.22) M/mm3 Hgb (11.2-15.7) gm/dl Hct (34.1-44.9) % MCV (79.4-94.8) fl MCH (25.6-32.2) pg MCHC (32.2-35.5) g/dl RDW Std Deviation (36.4-46.3) fL Plt Count (182-369) K/mm3 MPV (9.4-12.3) fl Neut % (Auto) (34.0-71.1) % Lymph % (Auto) (19.3-51.7) % [place] % (Auto) (4.7-12.5) % Eos % (Auto) (0.7-5.8) Baso % (Auto) (0.1-1.2) % Neut # (Auto) (1.56-6.13) K/mm3 Lymph # (Auto) (1.18-3.74) K/mm3 [place] # (Auto) (0.24-0.36) K/mm3 Eos # (Auto) (0.04-0.36) K/mm3 Baso # (Auto) (0.01-0.08) K/mm3 Manual Slide Review Sodium (136-145) mEq/L Potassium (3.5-5.1) mEq/L Chloride (98-107) mEq/L Carbon Dioxide (21-32) mEq/L Anion Gap (5-15) BUN (7-18) mg/dL Creatinine (0.55-1.02) mg/dL Est Cr Clr Drug Dosing mL/min Estimated GFR (MDRD) (>60) mL/min BUN/Creatinine Ratio (14-18) Glucose (80-115) mg/dL Calcium (8.5-10.1) mg/dL Magnesium 1.3 L (1.8-2.4) mg/dl Total Bilirubin (0.2-1.0) mg/dL AST (15-37) U/L ALT (14-59) U/L Alkaline Phosphatase (46-116) U/L C-Reactive Protein (<1.0) mg/dL Total Protein (6.4-8.2) g/dl Albumin (3.4-5.0) g/dl Globulin gm/dL Albumin/Globulin Ratio (1-2) TSH 3rd Generation (0.358-3.74) uIU/mL Urine Color Yellow (Yellow) Urine Appearance Clear (Clear) Urine pH 7.0 (5.0-8.0) Ur Specific [place] 1.025 (1.005-1.030) Urine Protein Trace H (Negative) Urine Glucose (UA) Negative (Negative) Urine Ketones Negative (Negative) Urine Occult Blood Negative (Negative) Urine Nitrite Negative (Negative) Urine Bilirubin Negative (Negative) Urine Urobilinogen 0.2 (0.2-1.0) Ur Leukocyte Esterase Negative (Negative) Urine RBC Not seen (0-5) /hpf Urine WBC 0-5 (0-5) /hpf Ur Epithelial Cells Not seen (0-5) /hpf Urine Bacteria Moderate H (FEW) /hpf Urine Mucus Few (FEW) /hpf Salicylates (2.8-20) mg/dL Urine Opiates Screen Negative (IDZDIA=914) Ur Buprenorphine Scrn Negative (CUTOFF=10) Ur Oxycodone Screen Negative (DMO5SN=038) Urine Methadone Screen Negative (WYKECK=520) Ur Propoxyphene Screen Negative (VPVMMO=258) Acetaminophen (10-30) ug/mL Ur Barbiturates Screen Negative (ZVJSHT=115) Ur Tricyclics Screen Negative (YDFLRY=809) Ur Phencyclidine Scrn Negative (CUTOFF=25) Ur Amphetamine Screen Negative (HZMIWZ=019) U Methamphetamines Scrn Negative (QAQQFC=785) U Benzodiazepines Scrn Negative (RMANHG=356) U Cocaine Metab Screen Negative (HHBDJG=842) U Marijuana (THC) Screen Negative (CUTOFF=50) Ethyl Alcohol (0.00) gm% SARS-CoV-2 RNA (DODIE) (NEGATIVE) Result Diagrams: 06/15/20 08:40 06/15/20 08:40 Sepsis Event Note - Evaluation Sepsis Screening Result: No Definite Risk - Focused Exam Vital Signs: Vital Signs Temp Pulse Resp BP Pulse Ox 06/15/20 08:33 36.8 C 110 H 18 149/94 H 96 - Problem List (1) Failure to thrive in adult SNOMED Code(s): 717593892 ICD Code: R62.7 - ADULT FAILURE TO THRIVE Status: Acute Priority: High Current Visit: Yes Onset Date: ~06/15/20 (2) Alcohol withdrawal syndrome SNOMED Code(s): 346864412 ICD Code: F10.239 - ALCOHOL DEPENDENCE WITH WITHDRAWAL, UNSPECIFIED Status: Acute Priority: High Current Visit: No Onset Date: ~06/15/20 Qualifiers: Complication of substance-induced condition: with perceptual disturbance Qualified Code(s): F10.232 - Alcohol dependence with withdrawal with perceptual disturbance (3) Alcoholism /alcohol abuse SNOMED Code(s): 8075513 ICD Code: F10.20 - ALCOHOL DEPENDENCE, UNCOMPLICATED Status: Acute Priority: High Current Visit: No Onset Date: ~06/15/20 (4) Chronic alcoholism SNOMED Code(s): 2349795 ICD Code: F10.20 - ALCOHOL DEPENDENCE, UNCOMPLICATED Status: Acute Priority: High Current Visit: No Onset Date: ~06/15/20 (5) Hypoalbuminemia SNOMED Code(s): 898207302 ICD Code: E88.09 - OTH DISORDERS OF PLASMA-PROTEIN METABOLISM, NEC Status: Chronic Priority: Medium Current Visit: No Onset Date: ~06/15/20 (6) Hypomagnesemia SNOMED Code(s): 252365828 ICD Code: E83.42 - HYPOMAGNESEMIA Status: Chronic Priority: High Current Visit: No Onset Date: ~06/15/20 Problem List Initiated/Reviewed/Updated: Yes Orders Last 24hrs: Active Orders 24 hr Category Date Time Status Admission Status [Patient Status] [ADT] Routine ADT 06/15/20 16:58 Active EKG Documentation Completion [RC] ASDIRECTED Care 06/15/20 08:43 Active Dextrose 5%-0.9% NaCl [Dextrose 5%-Normal Saline] 1,000 Med 06/15/20 11:45 Active ml IV ASDIRECTED EKG 12 Lead [EK] Stat Ther 06/15/20 08:42 Ordered Medication Orders Dextrose/Sodium Chloride (Dextrose 5%-Normal Saline) 1,000 mls @ 150 mls/hr IV ASDIRECTED STEPHANE Last Admin: 06/15/20 12:03 Dose: 150 mls/hr Documented by: MARI Assessment/Plan Comment:: 06/15/20 assess: patient requires some detox. but has not drank enough by hx to have full blown delirium. she has cognitive impairment and severe ataxia and falling. she cannot remember meds and or dtails and is asking same questions over and over. she is seeking help and will need to have thiamine and controlled environment and could stil recover but probably has severe cerebral issues form chronic alcoholism. plan support through detox and get court ordered care mandated as she can not take care of herself any longer. cog eval and placement for treatment needed. - Mortality Measure Prognosis:: Poor
[2020-06-15] MEDS ORDERED: lamoTRIgine 100 MG Tab PO ONE (20:08)
[2020-06-15] MEDS ORDERED: Albuterol 6.7 GM Inhaler INH PRN (20:08)
[2020-06-15] MEDS ORDERED: FLUVOXAMINE 100 MG PO SCH (21:00)
[2020-06-15] MEDS: Pantoprazole 40 MG Tab.CR PO SCH (22:17)
[2020-06-15] MEDS: Sucralfate 1 GM Tab PO SCH (22:17)
[2020-06-15] MEDS: Thiamine 100 MG Tab PO SCH (22:17)
[2020-06-15] MEDS: Formoterol/Mometasone 200-5 MCG 8.8 GM Inhaler IH SCH (23:04)
[2020-06-16] MEDS: Dextrose 5%-0.9% NaCl 1,000 ML IV SCH (04:51)
[2020-06-16] MEDS: Formoterol/Mometasone 200-5 MCG 8.8 GM Inhaler IH SCH ×2 (06:16→20:03)
[2020-06-16] MEDS ORDERED: Ondansetron 4 MG/2 ML SDV IVPUSH ONE (09:33)
[2020-06-16] MEDS: Simvastatin 20 MG Tab PO SCH (10:57)
[2020-06-16] MEDS: Potassium Chloride 20 MEQ Tab.ER PO SCH (10:57)
[2020-06-16] MEDS: Folic Acid 1 MG Tab PO SCH (10:57)
[2020-06-16] MEDS: Atenolol 25 MG Tab PO SCH (10:57)
[2020-06-16] MEDS: DULoxetine 30 MG Cap PO SCH (10:58)
[2020-06-16] MEDS: Sucralfate 1 GM Tab PO SCH ×4 (10:59→20:22)
[2020-06-16] MEDS: Enoxaparin 40 MG/0.4 ML Syringe SUBCUT SCH (11:03)
--- NOTE | 2020-06-16 11:14 | PCM.PN ---
- General Info Date of Service: 06/16/20 Admission Dx/Problem (Free Text): Admission Diagnosis/Problem Admission Diagnosis/Problem Failure to thrive in adult/etoh abuse Subjective Update: Re Ramesh is doing fair today. She still states that she is not feeling well. However she does not specify how she is not feeling well. She states that she had the naltrexone injection just prior to discharge from the [facility] hospital and was told that she will not feel well after receiving this injection. She states she has had this in the past and this is how she felt after past injections. She refused physical therapy this morning as she was not feeling well. She was complaining of nausea at breakfast time so did have a dose of Zofran ordered. We will need to encourage her p.o. intake and activity. Discharge is pending placement. Functional Status: Reports: Pain Controlled, Urinating (Continent of bowel and bladder). 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 Denies: Appetite (poor ) HEENT: Reports: Glasses Pulmonary: Reports: No Symptoms Cardiovascular: Reports: No Symptoms Gastrointestinal: Reports: Decreased Appetite, Diarrhea, Nausea. Denies: Abdominal Pain, Vomiting Genitourinary: Reports: Incontinence Musculoskeletal: Reports: Other (Chronic ataxia) Skin: Reports: No Symptoms Neurological: Reports: Difficulty Walking (Patient is very unsteady), Weakness (Generalized), Other (Forgetful; cog eval ordered) - Patient Data Vitals - Most Recent: Last Vital Signs Temp 98.1 F 06/16/20 09:55 Pulse 97 06/16/20 10:57 Resp 14 06/16/20 09:55 BP 156/89 H 06/16/20 10:57 Pulse Ox 98 06/16/20 09:55 Weight - Most Recent: 124 lb I&O - Last 24 Hours: Intake & Output 06/15/20 06/16/20 06/16/20 22:59 06:59 14:59 Intake Total 824 Balance 824 Lab Results Last 24 Hours: Laboratory Results - last 24 hr 06/15/20 06/16/20 06/16/20 Range/Units 08:40 09:12 09:12 WBC 6.07 (3.98-10.04) K/mm3 RBC 4.66 (3.98-5.22) M/mm3 Hgb 12.2 (11.2-15.7) gm/dl Hct 38.9 (34.1-44.9) % MCV 83.5 (79.4-94.8) fl MCH 26.2 (25.6-32.2) pg MCHC 31.4 L (32.2-35.5) g/dl RDW Std Deviation 60.8 H (36.4-46.3) fL Plt Count 218 D (182-369) K/mm3 MPV 9.2 L (9.4-12.3) fl Neut % (Auto) 66.6 (34.0-71.1) % Lymph % (Auto) 23.1 (19.3-51.7) % Harrison % (Auto) 8.6 (4.7-12.5) % Eos % (Auto) 1.5 (0.7-5.8) Baso % (Auto) 0.2 (0.1-1.2) % Neut # (Auto) 4.05 (1.56-6.13) K/mm3 Lymph # (Auto) 1.40 (1.18-3.74) K/mm3 Harrison # (Auto) 0.52 H (0.24-0.36) K/mm3 Eos # (Auto) 0.09 (0.04-0.36) K/mm3 Baso # (Auto) 0.01 (0.01-0.08) K/mm3 Sodium 139 (136-145) mEq/L Potassium 3.3 L (3.5-5.1) mEq/L Chloride 103 (98-107) mEq/L Carbon Dioxide 24 (21-32) mEq/L Anion Gap 15.3 H (5-15) BUN 4 L (7-18) mg/dL Creatinine 0.5 L (0.55-1.02) mg/dL Est Cr Clr Drug Dosing 103.59 mL/min Estimated GFR (MDRD) > 60 (>60) mL/min BUN/Creatinine Ratio 8.0 L (14-18) Glucose 127 H (80-115) mg/dL Calcium 7.5 L (8.5-10.1) mg/dL Magnesium 1.5 L (1.8-2.4) mg/dl Total Bilirubin 0.9 (0.2-1.0) mg/dL AST 42 H (15-37) U/L ALT 53 (14-59) U/L Alkaline Phosphatase 109 (46-116) U/L Total Protein 5.9 L (6.4-8.2) g/dl Albumin 3.2 L (3.4-5.0) g/dl Globulin 2.7 gm/dL Albumin/Globulin Ratio 1.2 (1-2) Acetaminophen 0 L (10-30) ug/mL Med Orders - Current: Current Medications Albuterol (Albuterol 6.7 Gm Inhaler) 0 gm INH Q4HR PRN PRN Reason: Shortness of Breath Atenolol (Atenolol 25 Mg Tab) 25 mg PO DAILY [facility] Last Admin: 06/16/20 10:57 Dose: 25 mg Documented by: Duloxetine HCl (Duloxetine 30 Mg Cap) 30 mg PO DAILY [facility] Last Admin: 06/16/20 10:58 Dose: 30 mg Documented by: Enoxaparin Sodium (Enoxaparin 40 Mg/0.4 Ml Syringe) 40 mg SUBCUT Q24H [facility] Last Admin: 06/16/20 11:03 Dose: 40 mg Documented by: Folic Acid (Folic Acid 1 Mg Tab) 1 mg PO DAILY [facility] Last Admin: 06/16/20 10:57 Dose: 1 mg Documented by: Dextrose/Sodium Chloride (Dextrose 5%-Normal Saline) 1,000 mls @ 150 mls/hr IV ASDIRECTED [facility] Last Admin: 06/16/20 04:51 Dose: 150 mls/hr Documented by: Potassium Chloride 10 meq/ (Premix) 100 mls @ 100 mls/hr IV Q1H [facility] Stop: 06/16/20 15:59 Mometasone Furoate/Formoterol Fumar (Formoterol/Mometasone 200-5 Mcg 8.8 Gm Inhaler) 0 puff IH BIDRT [facility] Last Admin: 06/16/20 06:16 Dose: Not Given Documented by: Olanzapine (Olanzapine 5 Mg Tab) 10 mg PO ACDINNER [facility] Pantoprazole Sodium (Pantoprazole 40 Mg Tab.Cr) 40 mg PO BEDTIME [facility] Last Admin: 06/15/20 22:17 Dose: 40 mg Documented by: Potassium Chloride (Potassium Chloride 20 Meq Tab.Er) 40 meq PO DAILY [facility] Last Admin: 06/16/20 10:57 Dose: 40 meq Documented by: Simvastatin (Simvastatin 20 Mg Tab) 20 mg PO DAILY [facility] Last Admin: 06/16/20 10:57 Dose: 20 mg Documented by: Sucralfate (Sucralfate 1 Gm Tab) 1 gm PO QID [facility] Last Admin: 06/16/20 10:59 Dose: 1 gm Documented by: Thiamine HCl (Thiamine 100 Mg Tab) 100 mg PO BEDTIME [facility] Last Admin: 06/15/20 22:17 Dose: 100 mg Documented by: Discontinued Medications Sodium Chloride (Normal Saline) 1,000 mls @ 999 mls/hr IV ONETIME ONE Stop: 06/15/20 10:33 Last Admin: 06/15/20 09:48 Dose: 999 mls/hr Documented by: Magnesium Sulfate 4 gm/ Premix 50 mls @ 12.5 mls/hr IV ONETIME ONE Stop: 06/15/20 14:33 Last Admin: 06/15/20 10:47 Dose: 12.5 mls/hr Documented by: Lamotrigine (Lamotrigine 100 Mg Tab) 100 mg PO ONETIME ONE Stop: 06/15/20 20:09 Last Admin: 06/15/20 22:20 Dose: 100 mg Documented by: Lorazepam (Lorazepam 2 Mg/Ml Sdv) 0.5 mg IVPUSH ONETIME ONE Stop: 06/15/20 09:41 Last Admin: 06/15/20 09:48 Dose: 0.5 mg Documented by: Lorazepam (Lorazepam 2 Mg/Ml Sdv) 0.5 mg IVPUSH ONETIME ONE Stop: 06/15/20 12:08 Last Admin: 06/15/20 12:11 Dose: 0.5 mg Documented by: Non-Formulary Medication (Fluvoxamine) 50 mg PO BEDTIME [facility] Last Admin: 06/16/20 10:56 Dose: Not Given Documented by: Ondansetron HCl (Ondansetron 4 Mg/2 Ml Sdv) 4 mg IVPUSH ONETIME ONE Stop: 06/15/20 09:35 Last Admin: 06/15/20 09:48 Dose: 4 mg Documented by: Ondansetron HCl (Ondansetron 4 Mg/2 Ml Sdv) 4 mg IVPUSH ONETIME ONE Stop: 06/16/20 09:34 Last Admin: 06/16/20 10:59 Dose: 4 mg Documented by: Potassium Chloride (Potassium Chloride 20 Meq Tab.Er) 20 meq PO ONETIME ONE Stop: 06/15/20 09:38 Last Admin: 06/15/20 09:48 Dose: 20 meq Documented by: - Exam Quality Assessment: DVT Prophylaxis (Lovenox). No: Supplemental Oxygen General: Alert, No Acute Distress. No: Oriented (Oriented to person and place only) HEENT: Pupils Equal, Pupils Reactive, Mucous Membr. Moist/[place] Neck: Supple, Trachea Midline Lungs: Clear to Auscultation, Normal Respiratory Effort Cardiovascular: Regular Rate, Regular Rhythm, No Murmurs GI/Abdominal Exam: Normal Bowel Sounds, Soft, Non-Tender, No Distention (Female) Exam: Deferred Back Exam: Normal Inspection, Full Range of Motion Extremities: Normal Inspection, Normal Range of Motion, Non-Tender, No Pedal Sadi ma, Normal Capillary Refill Peripheral Pulses: 2+: Radial (L), Radial (R) Skin: Warm, Dry, Intact Neurological: Other (Ataxic). No: Normal Gait Psy/Mental Status: Alert, Other (Patient is very tearful today as she states she is so embarrassed at the state of her health and her chronic alcoholism) - Patient Data Lab Results Last 24 hrs: Laboratory Results - last 24 hr 06/15/20 06/16/20 06/16/20 Range/Units 08:40 09:12 09:12 WBC 6.07 (3.98-10.04) K/mm3 RBC 4.66 (3.98-5.22) M/mm3 Hgb 12.2 (11.2-15.7) gm/dl Hct 38.9 (34.1-44.9) % MCV 83.5 (79.4-94.8) fl MCH 26.2 (25.6-32.2) pg MCHC 31.4 L (32.2-35.5) g/dl RDW Std Deviation 60.8 H (36.4-46.3) fL Plt Count 218 D (182-369) K/mm3 MPV 9.2 L (9.4-12.3) fl Neut % (Auto) 66.6 (34.0-71.1) % Lymph % (Auto) 23.1 (19.3-51.7) % Harrison % (Auto) 8.6 (4.7-12.5) % Eos % (Auto) 1.5 (0.7-5.8) Baso % (Auto) 0.2 (0.1-1.2) % Neut # (Auto) 4.05 (1.56-6.13) K/mm3 Lymph # (Auto) 1.40 (1.18-3.74) K/mm3 Harrison # (Auto) 0.52 H (0.24-0.36) K/mm3 Eos # (Auto) 0.09 (0.04-0.36) K/mm3 Baso # (Auto) 0.01 (0.01-0.08) K/mm3 Sodium 139 (136-145) mEq/L Potassium 3.3 L (3.5-5.1) mEq/L Chloride 103 (98-107) mEq/L Carbon Dioxide 24 (21-32) mEq/L Anion Gap 15.3 H (5-15) BUN 4 L (7-18) mg/dL Creatinine 0.5 L (0.55-1.02) mg/dL Est Cr Clr Drug Dosing 103.59 mL/min Estimated GFR (MDRD) > 60 (>60) mL/min BUN/Creatinine Ratio 8.0 L (14-18) Glucose 127 H (80-115) mg/dL Calcium 7.5 L (8.5-10.1) mg/dL Magnesium 1.5 L (1.8-2.4) mg/dl Total Bilirubin 0.9 (0.2-1.0) mg/dL AST 42 H (15-37) U/L ALT 53 (14-59) U/L Alkaline Phosphatase 109 (46-116) U/L Total Protein 5.9 L (6.4-8.2) g/dl Albumin 3.2 L (3.4-5.0) g/dl Globulin 2.7 gm/dL Albumin/Globulin Ratio 1.2 (1-2) Acetaminophen 0 L (10-30) ug/mL Result Diagrams: 06/16/20 09:12 06/16/20 09:12 Sepsis Event Note - Evaluation Sepsis Screening Result: No Definite Risk - Focused Exam Vital Signs: Vital Signs Temp Pulse Resp BP Pulse Ox 06/16/20 10:57 97 156/89 H 06/16/20 09:55 98.1 F 99 14 146/87 H 98 06/16/20 03:25 97.9 F 95 12 146/77 H 97 - Problem List & Annotations (1) Failure to thrive in adult SNOMED Code(s): 658184400 Code(s): R62.7 - ADULT FAILURE TO THRIVE Status: Acute Priority: High Current Visit: Yes Onset Date: ~06/15/20 (2) Alcohol withdrawal syndrome SNOMED Code(s): 559438986 Code(s): F10.239 - ALCOHOL DEPENDENCE WITH WITHDRAWAL, UNSPECIFIED Status: Acute Priority: High Current Visit: No Onset Date: ~06/15/20 Qualifiers: Complication of substance-induced condition: with perceptual disturbance Qualified Code(s): F10.232 - Alcohol dependence with withdrawal with perceptual disturbance (3) Alcoholism /alcohol abuse SNOMED Code(s): 0545869 Code(s): F10.20 - ALCOHOL DEPENDENCE, UNCOMPLICATED Status: Acute Priority: High Current Visit: Yes Onset Date: ~06/15/20 (4) Chronic alcoholism SNOMED Code(s): 5478444 Code(s): F10.20 - ALCOHOL DEPENDENCE, UNCOMPLICATED Status: Acute Priority: High Current Visit: Yes Onset Date: ~06/15/20 (5) Hypoalbuminemia SNOMED Code(s): 118783381 Code(s): E88.09 - OTH DISORDERS OF PLASMA-PROTEIN METABOLISM, NEC Status: Chronic Priority: Medium Current Visit: No Onset Date: ~06/15/20 (6) Hypomagnesemia SNOMED Code(s): 104880504 Code(s): E83.42 - HYPOMAGNESEMIA Status: Chronic Priority: High Current Visit: Yes Onset Date: ~06/15/20 (7) Hypokalemia SNOMED Code(s): 03586017 Code(s): E87.6 - HYPOKALEMIA Status: Resolved Priority: High Current Visit: Yes - Problem List Review Problem List Initiated/Reviewed/Updated: Yes - My Orders Last 24 Hours: My Active Orders 06/15/20 11:45 Dextrose 5%-0.9% NaCl [Dextrose 5%-Normal Saline] 1,000 ml IV ASDIRECTED 06/16/20 08:03 OT Evaluation and Treatment [CONS] Routine PT Evaluation and Treatment [CONS] Routine 06/16/20 08:05 Activity as Tolerated [RC] .Routine 06/16/20 08:07 Consult to Speech Language Pathology [STRATE[employer]IC PARTNERSHIP MANAGER Evaluation and Treatment] [CONS] Routine 06/16/20 08:15 Enoxaparin [Lovenox] 40 mg SUBCUT Q24H 06/16/20 Lunch Regular Diet [DIET] 06/16/20 11:15 Potassium Chloride [KCl in Water 10 MEQ/100 ML] 10 meq Premix Bag 1 bag IV Q1H - Assessment Assessment:: 06/16/20 64-year-old female with history of chronic alcohol abuse. Was recently discharged from the [facility] in [place] 6 days ago. As soon as she returned home she returned to drinking. Was seen in the emergency department 3 days ago with alcohol intoxication. Return to the emergency department yesterday morning with requests to help her stop drinking. Patient is unable to walk and crawls around on her floor at home due to ataxia. She is incontinent of bowel and bladder and does not change her attends when she becomes incontinent at home. Attempted to place the patient back at [facility] in [place] yesterday however they were full and were unable to admit her. Hospital administration made the decision to allow the patient to be admitted due to failure to thrive and being unsafe if we allow her to return to home. [facility] will accept the patient however she has to be able to ambulate independently and care for her incontinence. At this time she is not able to do either. Her cognitive function is questionable. Patient was not eating over the course of the 5 days that she has been home. She is very tearful today stating how embarrassed she is and what a failure she is. LABS: * WBC 16.14->6.07 * Hgb 11.7->12.2 * Hct 37.5->38.9 * Plt 304->218 * Na 141->139 * K 3.8->3.3 * Anion Gap 17.8->15.3 * BUN 13->4 * Creat 0.6->0.5 * Gluc 89->127 * Ca 7.8->7.5 * Mag 1.3->1.5 * AST 61->42 * ALT 57->53 * Total protein 6.0->5.9 * Albumin 3.5->3.2 - Plan Plan:: 06/15/20 assess: patient requires some detox. but has not drank enough by hx to have full blown delirium. she has cognitive impairment and severe ataxia and falling. she cannot remember meds and or dtails and is asking same questions over and over. she is seeking help and will need to have thiamine and controlled environment and could stil recover but probably has severe cerebral issues form chronic alcoholism. plan support through detox and get court ordered care mandated as she can not take care of herself any longer. cog eval and placement for treatment needed. 06/16/20 * Intensive cognitive eval pending * PT/OT eval and treat * PT pelvic floor exercises * start colestipol to form up stool-hospital pharmacy only carries Questran so we will start this * k 9 handler/ deputy consult for nutritional needs due to decreased appetite and low total protein and albumin * zofran prn nausea * change IV fluid from D5NS to NS as pts blood glucose is rising * replace potassium and magnesium today * Lovenox for DVT prophylaxis * legal services manager to assist with discharge planning and patient placement * labs in am * monitor intake and output
[2020-06-16] MEDS ORDERED: Magnesium Sulfate/Water 4 GM in Premix Bag 1 BAG IV ONE (11:51)
[2020-06-16] MEDS: Potassium Chloride 10 MEQ in Premix Bag 1 BAG IV SCH ×4 (12:02→15:29)
[2020-06-16] MEDS: Cholestyramine/Sucrose Powder 4 GM Packet PO SCH (13:15)
[2020-06-16] MEDS: Sodium Chloride 0.9% 1,000 ML IV SCH (15:30)
[2020-06-16] MEDS ORDERED: OLANZapine 5 MG Tab PO SCH (16:00)
[2020-06-16] MEDS: Saccharomyces Boulardii (Probiotic) 250 MG Cap PO SCH (20:22)
[2020-06-16] MEDS: Thiamine 100 MG Tab PO SCH (20:22)
[2020-06-16] MEDS: Pantoprazole 40 MG Tab.CR PO SCH (20:23)
[2020-06-16] MEDS ORDERED: lamoTRIgine 100 MG Tab PO SCH (21:00)
[2020-06-17] MEDS: Acetaminophen 325 MG Tab PO PRN ×2 (00:53→05:33)
[2020-06-17] MEDS: Sodium Chloride 0.9% 1,000 ML IV SCH ×2 (01:33→12:01)
[2020-06-17] MEDS: Formoterol/Mometasone 200-5 MCG 8.8 GM Inhaler IH SCH (06:15)
--- NOTE | 2020-06-17 07:23 | PCM.PN ---
- General Info Date of Service: 06/17/20 Admission Dx/Problem (Free Text): Admission Diagnosis/Problem Admission Diagnosis/Problem Failure to thrive in adult/etoh abuse Functional Status: Reports: Pain Controlled, Tolerating Diet, Ambulating, Urinating. Denies: New Symptoms - Review of Systems General: Reports: Weakness (Greatly improved). Denies: Fever, Malaise, Chills HEENT: Reports: No Symptoms. Denies: Headaches, Sore Throat Pulmonary: Reports: No Symptoms. Denies: Shortness of Breath, Pleuritic Chest Pain, Cough, Sputum, Wheezing Cardiovascular: Reports: No Symptoms. Denies: Chest Pain, Palpitations, Dyspnea on Exertion Gastrointestinal: Reports: No Symptoms. Denies: Abdominal Pain, Diarrhea, Nausea, Vomiting Genitourinary: Reports: No Symptoms. Denies: Pain Musculoskeletal: Reports: No Symptoms Skin: Reports: No Symptoms. Denies: Cyanosis Neurological: Reports: Confusion (Moderate cognitive impairment per SHAMPOOER.), Difficulty Walking (Greatly improved), Gait Disturbance (Greatly improved). Denies: Dizziness, Headache, Numbness, Syncope, Tingling, Tremors, Trouble Speaking, Weakness, Change in Speech Psychiatric: Reports: No Symptoms - Patient Data Vitals - Most Recent: Last Vital Signs Temp 97.9 F 06/17/20 03:03 Pulse 76 06/17/20 03:03 Resp 14 06/17/20 03:03 BP 145/77 H 06/17/20 03:03 Pulse Ox 97 06/17/20 06:16 Weight - Most Recent: 120 lb 3.2 oz I&O - Last 24 Hours: Intake & Output 06/16/20 06/17/20 06/17/20 22:59 06:59 14:59 Intake Total 2790 1964 Output Total 400 550 Balance 2390 1414 Lab Results Last 24 Hours: Laboratory Results - last 24 hr 06/16/20 06/16/20 06/17/20 Range/Units 09:12 09:12 05:07 WBC 6.07 4.99 (3.98-10.04) K/mm3 RBC 4.66 4.53 (3.98-5.22) M/mm3 Hgb 12.2 11.8 (11.2-15.7) gm/dl Hct 38.9 39.1 (34.1-44.9) % MCV 83.5 86.3 (79.4-94.8) fl MCH 26.2 26.0 (25.6-32.2) pg MCHC 31.4 L 30.2 L (32.2-35.5) g/dl RDW Std Deviation 60.8 H 62.3 H (36.4-46.3) fL Plt Count 218 D 184 (182-369) K/mm3 MPV 9.2 L 10.4 (9.4-12.3) fl Neut % (Auto) 66.6 55.7 (34.0-71.1) % Lymph % (Auto) 23.1 28.9 (19.3-51.7) % [place] % (Auto) 8.6 9.2 (4.7-12.5) % Eos % (Auto) 1.5 5.6 (0.7-5.8) Baso % (Auto) 0.2 0.2 (0.1-1.2) % Neut # (Auto) 4.05 2.78 (1.56-6.13) K/mm3 Lymph # (Auto) 1.40 1.44 (1.18-3.74) K/mm3 [place] # (Auto) 0.52 H 0.46 H (0.24-0.36) K/mm3 Eos # (Auto) 0.09 0.28 (0.04-0.36) K/mm3 Baso # (Auto) 0.01 0.01 (0.01-0.08) K/mm3 Sodium 139 (136-145) mEq/L Potassium 3.3 L (3.5-5.1) mEq/L Chloride 103 (98-107) mEq/L Carbon Dioxide 24 (21-32) mEq/L Anion Gap 15.3 H (5-15) BUN 4 L (7-18) mg/dL Creatinine 0.5 L (0.55-1.02) mg/dL Est Cr Clr Drug Dosing 103.59 mL/min Estimated GFR (MDRD) > 60 (>60) mL/min BUN/Creatinine Ratio 8.0 L (14-18) Glucose 127 H (80-115) mg/dL Calcium 7.5 L (8.5-10.1) mg/dL Magnesium 1.5 L (1.8-2.4) mg/dl Total Bilirubin 0.9 (0.2-1.0) mg/dL AST 42 H (15-37) U/L ALT 53 (14-59) U/L Alkaline Phosphatase 109 (46-116) U/L Total Protein 5.9 L (6.4-8.2) g/dl Albumin 3.2 L (3.4-5.0) g/dl Globulin 2.7 gm/dL Albumin/Globulin Ratio 1.2 (1-2) 06/17/20 Range/Units 05:07 WBC (3.98-10.04) K/mm3 RBC (3.98-5.22) M/mm3 Hgb (11.2-15.7) gm/dl Hct (34.1-44.9) % MCV (79.4-94.8) fl MCH (25.6-32.2) pg MCHC (32.2-35.5) g/dl RDW Std Deviation (36.4-46.3) fL Plt Count (182-369) K/mm3 MPV (9.4-12.3) fl Neut % (Auto) (34.0-71.1) % Lymph % (Auto) (19.3-51.7) % [place] % (Auto) (4.7-12.5) % Eos % (Auto) (0.7-5.8) Baso % (Auto) (0.1-1.2) % Neut # (Auto) (1.56-6.13) K/mm3 Lymph # (Auto) (1.18-3.74) K/mm3 [place] # (Auto) (0.24-0.36) K/mm3 Eos # (Auto) (0.04-0.36) K/mm3 Baso # (Auto) (0.01-0.08) K/mm3 Sodium 142 (136-145) mEq/L Potassium 4.2 (3.5-5.1) mEq/L Chloride 108 H (98-107) mEq/L Carbon Dioxide 24 (21-32) mEq/L Anion Gap 14.2 (5-15) BUN 8 (7-18) mg/dL Creatinine 0.5 L (0.55-1.02) mg/dL Est Cr Clr Drug Dosing 100.41 mL/min Estimated GFR (MDRD) > 60 (>60) mL/min BUN/Creatinine Ratio 16.0 (14-18) Glucose 94 (80-115) mg/dL Calcium 7.7 L (8.5-10.1) mg/dL Magnesium 1.7 L (1.8-2.4) mg/dl Total Bilirubin 0.6 (0.2-1.0) mg/dL AST 32 (15-37) U/L ALT 46 (14-59) U/L Alkaline Phosphatase 107 (46-116) U/L Total Protein 5.6 L (6.4-8.2) g/dl Albumin 3.0 L (3.4-5.0) g/dl Globulin 2.6 gm/dL Albumin/Globulin Ratio 1.2 (1-2) Med Orders - Current: Current Medications Acetaminophen (Acetaminophen 325 Mg Tab) 650 mg PO Q4H PRN PRN Reason: Pain Last Admin: 06/17/20 05:33 Dose: 650 mg Documented by: Albuterol (Albuterol 6.7 Gm Inhaler) 0 gm INH Q4HR PRN PRN Reason: Shortness of Breath Atenolol (Atenolol 25 Mg Tab) 25 mg PO DAILY [facility] Last Admin: 06/16/20 10:57 Dose: 25 mg Documented by: Cholestyramine Resin (Cholestyramine/Sucrose Powder 4 Gm Packet) 4 gm PO DAILY [facility] Last Admin: 06/16/20 13:15 Dose: 4 gm Documented by: Duloxetine HCl (Duloxetine 30 Mg Cap) 30 mg PO DAILY [facility] Last Admin: 06/16/20 10:58 Dose: 30 mg Documented by: Enoxaparin Sodium (Enoxaparin 40 Mg/0.4 Ml Syringe) 40 mg SUBCUT Q24H [facility] Last Admin: 06/16/20 11:03 Dose: 40 mg Documented by: Folic Acid (Folic Acid 1 Mg Tab) 1 mg PO DAILY [facility] Last Admin: 06/16/20 10:57 Dose: 1 mg Documented by: Sodium Chloride (Normal Saline) 1,000 mls @ 100 mls/hr IV ASDIRECTED [facility] Last Admin: 06/17/20 01:33 Dose: 100 mls/hr Documented by: Lamotrigine (Lamotrigine 100 Mg Tab) 100 mg PO BEDTIME [facility] Last Admin: 06/16/20 20:22 Dose: 100 mg Documented by: Mirtazapine (Mirtazapine 15 Mg Tab) 15 mg PO BEDTIME [facility] Mometasone Furoate/Formoterol Fumar (Formoterol/Mometasone 200-5 Mcg 8.8 Gm Inhaler) 0 puff IH BIDRT [facility] Last Admin: 06/17/20 06:15 Dose: 1 puff Documented by: Montelukast Sodium (Montelukast 10 Mg Tab) 10 mg PO BEDTIME [facility] Non-Formulary Medication (Ferrous Sulfate) 325 mg PO BID [facility] Olanzapine (Olanzapine 5 Mg Tab) 10 mg PO ACDINNER [facility] Last Admin: 06/16/20 16:20 Dose: 10 mg Documented by: Pantoprazole Sodium (Pantoprazole 40 Mg Tab.Cr) 40 mg PO BEDTIME [facility] Last Admin: 06/16/20 20:23 Dose: 40 mg Documented by: Pantoprazole Sodium (Pantoprazole 40 Mg Tab.Cr) 40 mg PO BIDAC [facility] Potassium Chloride (Potassium Chloride 20 Meq Tab.Er) 40 meq PO DAILY [facility] Last Admin: 06/16/20 10:57 Dose: 40 meq Documented by: Saccharomyces Boulardii (Saccharomyces Boulardii (Probiotic) 250 Mg Cap) 500 mg PO BID [facility] Last Admin: 06/16/20 20:22 Dose: 500 mg Documented by: Simvastatin (Simvastatin 20 Mg Tab) 20 mg PO DAILY [facility] Last Admin: 06/16/20 10:57 Dose: 20 mg Documented by: Sucralfate (Sucralfate 1 Gm Tab) 1 gm PO QID [facility] Last Admin: 06/16/20 20:22 Dose: 1 gm Documented by: Thiamine HCl (Thiamine 100 Mg Tab) 100 mg PO BEDTIME [facility] Last Admin: 06/16/20 20:22 Dose: 100 mg Documented by: Topiramate (Topiramate 25 Mg Tab) 25 mg PO BEDTIME [facility] Discontinued Medications Sodium Chloride (Normal Saline) 1,000 mls @ 999 mls/hr IV ONETIME ONE Stop: 06/15/20 10:33 Last Admin: 06/15/20 09:48 Dose: 999 mls/hr Documented by: Magnesium Sulfate 4 gm/ Premix 50 mls @ 12.5 mls/hr IV ONETIME ONE Stop: 06/15/20 14:33 Last Admin: 06/15/20 10:47 Dose: 12.5 mls/hr Documented by: Dextrose/Sodium Chloride (Dextrose 5%-Normal Saline) 1,000 mls @ 150 mls/hr IV ASDIRECTED [facility] Last Admin: 06/16/20 04:51 Dose: 150 mls/hr Documented by: Potassium Chloride 10 meq/ (Premix) 100 mls @ 100 mls/hr IV Q1H [facility] Stop: 06/16/20 15:59 Last Admin: 06/16/20 15:29 Dose: 100 mls/hr Documented by: Magnesium Sulfate 4 gm/ Premix 50 mls @ 12.5 mls/hr IV ONETIME ONE Stop: 06/16/20 15:50 Last Admin: 06/16/20 12:02 Dose: 12.5 mls/hr Documented by: Lamotrigine (Lamotrigine 100 Mg Tab) 100 mg PO ONETIME ONE Stop: 06/15/20 20:09 Last Admin: 06/15/20 22:20 Dose: 100 mg Documented by: Lorazepam (Lorazepam 2 Mg/Ml Sdv) 0.5 mg IVPUSH ONETIME ONE Stop: 06/15/20 09:41 Last Admin: 06/15/20 09:48 Dose: 0.5 mg Documented by: Lorazepam (Lorazepam 2 Mg/Ml Sdv) 0.5 mg IVPUSH ONETIME ONE Stop: 06/15/20 12:08 Last Admin: 06/15/20 12:11 Dose: 0.5 mg Documented by: Non-Formulary Medication (Fluvoxamine) 50 mg PO BEDTIME [facility] Last Admin: 06/16/20 10:56 Dose: Not Given Documented by: Ondansetron HCl (Ondansetron 4 Mg/2 Ml Sdv) 4 mg IVPUSH ONETIME ONE Stop: 06/15/20 09:35 Last Admin: 06/15/20 09:48 Dose: 4 mg Documented by: Ondansetron HCl (Ondansetron 4 Mg/2 Ml Sdv) 4 mg IVPUSH ONETIME ONE Stop: 06/16/20 09:34 Last Admin: 06/16/20 10:59 Dose: 4 mg Documented by: Potassium Chloride (Potassium Chloride 20 Meq Tab.Er) 20 meq PO ONETIME ONE Stop: 06/15/20 09:38 Last Admin: 06/15/20 09:48 Dose: 20 meq Documented by: - Exam Quality Assessment: DVT Prophylaxis. No: Supplemental Oxygen, Urine Catheter General: Alert, Oriented, Cooperative, No Acute Distress HEENT: Pupils Equal, Pupils Reactive, Mucous Membr. Moist/[place] Neck: Supple, Trachea Midline Lungs: Clear to Auscultation, Normal Respiratory Effort Cardiovascular: Regular Rate, Regular Rhythm GI/Abdominal Exam: Normal Bowel Sounds, Soft, Non-Tender, No Distention (Female) Exam: Deferred Back Exam: Normal Inspection, Full Range of Motion Extremities: Normal Inspection, Normal Range of Motion, Non-Tender, No Pedal Edema, Normal Capillary Refill Skin: Warm, Dry, Intact Neurological: No New Focal Deficit Psy/Mental Status: Alert, Normal Affect, Normal Mood - Patient Data Lab Results Last 24 hrs: Laboratory Results - last 24 hr 06/16/20 06/16/20 06/17/20 Range/Units 09:12 09:12 05:07 WBC 6.07 4.99 (3.98-10.04) K/mm3 RBC 4.66 4.53 (3.98-5.22) M/mm3 Hgb 12.2 11.8 (11.2-15.7) gm/dl Hct 38.9 39.1 (34.1-44.9) % MCV 83.5 86.3 (79.4-94.8) fl MCH 26.2 26.0 (25.6-32.2) pg MCHC 31.4 L 30.2 L (32.2-35.5) g/dl RDW Std Deviation 60.8 H 62.3 H (36.4-46.3) fL Plt Count 218 D 184 (182-369) K/mm3 MPV 9.2 L 10.4 (9.4-12.3) fl Neut % (Auto) 66.6 55.7 (34.0-71.1) % Lymph % (Auto) 23.1 28.9 (19.3-51.7) % [place] % (Auto) 8.6 9.2 (4.7-12.5) % Eos % (Auto) 1.5 5.6 (0.7-5.8) Baso % (Auto) 0.2 0.2 (0.1-1.2) % Neut # (Auto) 4.05 2.78 (1.56-6.13) K/mm3 Lymph # (Auto) 1.40 1.44 (1.18-3.74) K/mm3 [place] # (Auto) 0.52 H 0.46 H (0.24-0.36) K/mm3 Eos # (Auto) 0.09 0.28 (0.04-0.36) K/mm3 Baso # (Auto) 0.01 0.01 (0.01-0.08) K/mm3 Sodium 139 (136-145) mEq/L Potassium 3.3 L (3.5-5.1) mEq/L Chloride 103 (98-107) mEq/L Carbon Dioxide 24 (21-32) mEq/L Anion Gap 15.3 H (5-15) BUN 4 L (7-18) mg/dL Creatinine 0.5 L (0.55-1.02) mg/dL Est Cr Clr Drug Dosing 103.59 mL/min Estimated GFR (MDRD) > 60 (>60) mL/min BUN/Creatinine Ratio 8.0 L (14-18) Glucose 127 H (80-115) mg/dL Calcium 7.5 L (8.5-10.1) mg/dL Magnesium 1.5 L (1.8-2.4) mg/dl Total Bilirubin 0.9 (0.2-1.0) mg/dL AST 42 H (15-37) U/L ALT 53 (14-59) U/L Alkaline Phosphatase 109 (46-116) U/L Total Protein 5.9 L (6.4-8.2) g/dl Albumin 3.2 L (3.4-5.0) g/dl Globulin 2.7 gm/dL Albumin/Globulin Ratio 1.2 (1-2) 06/17/20 Range/Units 05:07 WBC (3.98-10.04) K/mm3 RBC (3.98-5.22) M/mm3 Hgb (11.2-15.7) gm/dl Hct (34.1-44.9) % MCV (79.4-94.8) fl MCH (25.6-32.2) pg MCHC (32.2-35.5) g/dl RDW Std Deviation (36.4-46.3) fL Plt Count (182-369) K/mm3 MPV (9.4-12.3) fl Neut % (Auto) (34.0-71.1) % Lymph % (Auto) (19.3-51.7) % [place] % (Auto) (4.7-12.5) % Eos % (Auto) (0.7-5.8) Baso % (Auto) (0.1-1.2) % Neut # (Auto) (1.56-6.13) K/mm3 Lymph # (Auto) (1.18-3.74) K/mm3 [place] # (Auto) (0.24-0.36) K/mm3 Eos # (Auto) (0.04-0.36) K/mm3 Baso # (Auto) (0.01-0.08) K/mm3 Sodium 142 (136-145) mEq/L Potassium 4.2 (3.5-5.1) mEq/L Chloride 108 H (98-107) mEq/L Carbon Dioxide 24 (21-32) mEq/L Anion Gap 14.2 (5-15) BUN 8 (7-18) mg/dL Creatinine 0.5 L (0.55-1.02) mg/dL Est Cr Clr Drug Dosing 100.41 mL/min Estimated GFR (MDRD) > 60 (>60) mL/min BUN/Creatinine Ratio 16.0 (14-18) Glucose 94 (80-115) mg/dL Calcium 7.7 L (8.5-10.1) mg/dL Magnesium 1.7 L (1.8-2.4) mg/dl Total Bilirubin 0.6 (0.2-1.0) mg/dL AST 32 (15-37) U/L ALT 46 (14-59) U/L Alkaline Phosphatase 107 (46-116) U/L Total Protein 5.6 L (6.4-8.2) g/dl Albumin 3.0 L (3.4-5.0) g/dl Globulin 2.6 gm/dL Albumin/Globulin Ratio 1.2 (1-2) Result Diagrams: 06/17/20 05:07 06/17/20 05:07 Sepsis Event Note - Evaluation Sepsis Screening Result: No Definite Risk - Focused Exam Vital Signs: Vital Signs Temp Pulse Resp BP Pulse Ox Pulse Ox 06/17/20 06:16 97 06/17/20 03:03 97.9 F 76 14 145/77 H 96 06/16/20 20:21 98.1 F 86 14 140/73 96 06/16/20 20:04 98 - Problem List & Annotations (1) Alcoholism /alcohol abuse SNOMED Code(s): 1431605 Code(s): F10.20 - ALCOHOL DEPENDENCE, UNCOMPLICATED Status: Chronic Priority: High Current Visit: Yes Onset Date: ~06/15/20 (2) Chronic alcoholism SNOMED Code(s): 1265589 Code(s): F10.20 - ALCOHOL DEPENDENCE, UNCOMPLICATED Status: Chronic Priority: High Current Visit: Yes Onset Date: ~06/15/20 (3) Failure to thrive in adult SNOMED Code(s): 170188187 Code(s): R62.7 - ADULT FAILURE TO THRIVE Status: Acute Priority: High Current Visit: Yes Onset Date: ~06/15/20 (4) Hypomagnesemia SNOMED Code(s): 407939984 Code(s): E83.42 - HYPOMAGNESEMIA Status: Chronic Priority: High Current Visit: Yes Onset Date: ~06/15/20 (5) Hypokalemia SNOMED Code(s): 02290651 Code(s): E87.6 - HYPOKALEMIA Status: Resolved Priority: High Current Visit: Yes (6) Anxiety SNOMED Code(s): 06353647 Code(s): F41.9 - ANXIETY DISORDER, UNSPECIFIED Status: Chronic Priority: High Current Visit: Yes (7) Bipolar disorder SNOMED Code(s): 56120409 Code(s): F31.9 - BIPOLAR DISORDER, UNSPECIFIED Status: Chronic Priority: Medium Current Visit: Yes Qualifiers: Active/Remission status: currently active Current episode severity: unspecified (8) Hypoalbuminemia SNOMED Code(s): 648231237 Code(s): E88.09 - OTH DISORDERS OF PLASMA-PROTEIN METABOLISM, NEC Status: Chronic Priority: Medium Current Visit: No Onset Date: ~06/15/20 (9) Major depressive disorder SNOMED Code(s): 545373085 Code(s): F32.9 - MAJOR DEPRESSIVE DISORDER, SINGLE EPISODE, UNSPECIFIED St atus: Chronic Priority: High Current Visit: No Qualifiers: Major depression recurrence: unspecified whether recurrent Active/Remission status: currently active Major depression episode severity: unspecified Qualified Code(s): F32.9 - Major depressive disorder, single episode, unspecified (10) Post traumatic stress disorder SNOMED Code(s): 86611950 Code(s): F43.10 - POST-TRAUMATIC STRESS DISORDER, UNSPECIFIED Status: [employer] [place]en Priority: High Current Visit: No (11) Hypertension SNOMED Code(s): 23854752 Code(s): I10 - ESSENTIAL (PRIMARY) HYPERTENSION Status: Chronic Priority: Medium Current Visit: No Qualifiers: Hypertension type: essential hypertension Qualified Code(s): I10 - Essential (primary) hypertension - Problem List Review Problem List Initiated/Reviewed/Updated: Yes - My Orders Last 24 Hours: My Active Orders 06/17/20 07:17 Consult to Case Management[facility] [CONS] Routine 06/17/20 09:00 Ferrous Sulfate 325 mg PO BID 06/17/20 16:00 Pantoprazole [ProTONIX] 40 mg PO BIDAC 06/17/20 21:00 Mirtazapine [Remeron] 15 mg PO BEDTIME Montelukast [Singulair] 10 mg PO BEDTIME Topiramate [Topamax] 25 mg PO BEDTIME - Assessment Assessment:: 06/16/20 64-year-old female with history of chronic alcohol abuse. Was recently discharged from the [facility] in [place] 6 days ago. As soon as she returned home she returned to drinking. Was seen in the emergency department 3 days ago with alcohol intoxication. Return to the emergency department yesterday morning with requests to help her stop drinking. Patient is unable to walk and crawls around on her floor at home due to ataxia. She is incontinent of bowel and bladder and does not change her attends when she becomes incontinent at home. Attempted to place the patient back at [facility] in [place] yesterday however they were full and were unable to admit her. Hospital administration made the decision to allow the patient to be admitted due to failure to thrive and being unsafe if we allow her to return to home. [facility] will accept the patient however she has to be able to ambulate independently and care for her incontinence. At this time she is not able to do either. Her cognitive function is questionable. Patient was not eating over the course of the 5 days that she has been home. She is very tearful today stating how embarrassed she is and what a failure she is. LABS: * WBC 16.14->6.07 * Hgb 11.7->12.2 * Hct 37.5->38.9 * Plt 304->218 * Na 141->139 * K 3.8->3.3 * Anion Gap 17.8->15.3 * BUN 13->4 * Creat 0.6->0.5 * Gluc 89->127 * Ca 7.8->7.5 * Mag 1.3->1.5 * AST 61->42 * ALT 57->53 * Total protein 6.0->5.9 * Albumin 3.5->3.2 06/17/2020: - Plan Plan:: 06/15/20 assess: patient requires some detox. but has not drank enough by hx to have full blown delirium. she has cognitive impairment and severe ataxia and falling. she cannot remember meds and or dtails and is asking same questions over and over. she is seeking help and will need to have thiamine and controlled environment and could stil recover but probably has severe cerebral issues form chronic alcoholism. plan support through detox and get court ordered care mandated as she can not take care of herself any longer. cog eval and placement for treatment needed. 06/16/20 * Intensive cognitive eval pending * PT/OT eval and treat * PT pelvic floor exercises * start colestipol to form up stool-hospital pharmacy only carries Questran so we will start this * community relations coordinator consult for nutritional needs due to decreased appetite and low tota l protein and albumin * zofran prn nausea * change IV fluid from D5NS to NS as pts blood glucose is rising * replace potassium and magnesium today * Lovenox for DVT prophylaxis * guest services associate to assist with discharge planning and patient placement * labs in am * monitor intake and output 06/17/2020: * Cognitive evaluation revealed moderate cognitive deficits. * Patient walked 300 feet with OT. They will be discharging her from their service as inpatient. * No recent diarrhea per nursing report. * No acute nausea * Discontinue IV fluids * Patient has longstanding history of hypomagnesemia. Will start 400 mg twice daily * [facility] evaluating patient for admission and other services. * Continues to improve. Looks better clinically now than she has on multiple prior visits. * Hopeful discharge today versus tomorrow to [facility].
[2020-06-17] MEDS ORDERED: Pantoprazole 40 MG Tab.CR PO SCH (08:00)
[2020-06-17] MEDS ORDERED: Ferrous Sulfate 324 MG Tab.EC PO SCH (09:00)
[2020-06-17] MEDS ORDERED: Magnesium Oxide 400 MG Tab PO SCH (09:00)
[2020-06-17] MEDS: Potassium Chloride 20 MEQ Tab.ER PO SCH (09:57)
[2020-06-17] MEDS: Folic Acid 1 MG Tab PO SCH (09:57)
[2020-06-17] MEDS: Atenolol 25 MG Tab PO SCH (09:57)
[2020-06-17] MEDS: DULoxetine 30 MG Cap PO SCH (09:58)
[2020-06-17] MEDS: Saccharomyces Boulardii (Probiotic) 250 MG Cap PO SCH (09:58)
[2020-06-17] MEDS: Simvastatin 20 MG Tab PO SCH (09:58)
[2020-06-17] MEDS: Enoxaparin 40 MG/0.4 ML Syringe SUBCUT SCH (09:58)
[2020-06-17] MEDS: Cholestyramine/Sucrose Powder 4 GM Packet PO SCH (09:59)
[2020-06-17] MEDS: Sucralfate 1 GM Tab PO SCH ×2 (09:59→13:17)
[2020-06-17 11:22] VITALS: BP 157/87; PULSE 91
--- NOTE | 2020-06-17 13:04 | PCM.DCSUM1 ---
Discharge Summary - Hospital Course HPI Initial Comments: 06/15/20 64 year old female who presents requesting help to quit drinking and care for herself as she relapsed when she returned home from in patient treatment program for chronic etoh abuse. she has become increasingly aware of her inability to care for self and is incontinent, and unkept and disheveled. she drank 10 minis in her house over weekend and was seen in e.r. but returned home. she states she has not been able to drink since yest. because she ran out. she has increasingly severe balance and falling problems and gets diarrhea after drinking. she was brought by ambulance after a neighbor called for her. she c/o diarrhea,cramps in legs and feet and feeling lousy .she is frustrated at her relapse she states. she wants some pelvic exercises to do for incontinance.she cannot cook for herself even whennot drinking. she cannot clean and her new carpet is ruined by stains but she wants to get it cleaned and throw out the mattresses. she is incont. at night and during day when she drinks. she feels anxious and has mild tremors but does not think she will go into withdrawal. she denies cough,fever,choking,vomiting or ingesting anything besides the " 10 minis." she denies hitting head or falling but was witnessed to be very ataxic and stumbling today and previously .she denies seizures or losing concessness. she remembers me but not my name (we are fairly acquainted). she does remeber my occupation , year but not date or month or does remember day of week. she remebers treatment in [place] and just got out 5 days ago(correct). patient was noted to have low mag. and given 4 grams i.v. she had level of .06 .30 saturday. labs otherwise fairly normal . meds extensive and not sure if she is taking them(can't remember) Diagnosis: Stroke: No - Discharge Data Discharge Date: 06/17/20 (Admit date: 06/15/2020) Discharge Disposition: DC/Tfer to Other 70 Condition: Good - Referral to Home Health Primary Care Physician: Renard Verduzco MD - Discharge Diagnosis/Problem(s) (1) Alcoholism /alcohol abuse SNOMED Code(s): 3078544 ICD Code: F10.20 - ALCOHOL DEPENDENCE, UNCOMPLICATED Status: Chronic Priority: High Current Visit: Yes Onset Date: ~06/15/20 (2) Chronic alcoholism SNOMED Code(s): 9417494 ICD Code: F10.20 - ALCOHOL DEPENDENCE, UNCOMPLICATED Status: Chronic Priority: High Current Visit: Yes Onset Date: ~06/15/20 (3) Failure to thrive in adult SNOMED Code(s): 878926130 ICD Code: R62.7 - ADULT FAILURE TO THRIVE Status: Acute Priority: High Current Visit: Yes Onset Date: ~06/15/20 (4) Hypomagnesemia SNOMED Code(s): 104347864 ICD Code: E83.42 - HYPOMAGNESEMIA Status: Chronic Priority: High Current Visit: Yes Onset Date: ~06/15/20 (5) Hypokalemia SNOMED Code(s): 06045790 ICD Code: E87.6 - HYPOKALEMIA Status: Resolved Priority: High Current Visit: Yes (6) Anxiety SNOMED Code(s): 59816723 ICD Code: F41.9 - ANXIETY DISORDER, UNSPECIFIED Status: Chronic Priority: High Current Visit: Yes (7) Bipolar disorder SNOMED Code(s): 52305745 ICD Code: F31.9 - BIPOLAR DISORDER, UNSPECIFIED Status: Chronic Priority: Medium Current Visit: Yes Qualifiers: Active/Remission status: currently active Current episode severity: unspecified (8) Hypoalbuminemia SNOMED Code(s): 989730270 ICD Code: E88.09 - OTH DISORDERS OF PLASMA-PROTEIN METABOLISM, NEC Status: Chronic Priority: Medium Current Visit: No Onset Date: ~06/15/20 (9) Major depressive disorder SNOMED Code(s): 408448200 ICD Code: F32.9 - MAJOR DEPRESSIVE DISORDER, SINGLE EPISODE, UNSPECIFIED Status: Chronic Priority: High Current Visit: No Qualifiers: Major depression recurrence: unspecified whether recurrent Active/Remission status: currently active Major depression episode severity: unspecified Qualified Code(s): F32.9 - Major depressive disorder, single episode, unspecified (10) Post traumatic stress disorder SNOMED Code(s): 04189030 ICD Code: F43.10 - POST-TRAUMATIC STRESS DISORDER, UNSPECIFIED Status: Chronic Priority: High Current Visit: No (11) Hypertension SNOMED Code(s): 65147636 ICD Code: I10 - ESSENTIAL (PRIMARY) HYPERTENSION Status: Chronic Priority: Medium Current Visit: No Qualifiers: Hypertension type: essential hypertension Qualified Code(s): I10 - Essential (primary) hypertension - Patient Summary/Data Consults: Consultations 06/16/20 08:03 OT Evaluation and Treatment [CONS] Routine PT Evaluation and Treatment [CONS] Routine 06/16/20 08:07 Consult to Speech Language Pathology [LOG [facility]OOKER Evaluation and Treatment] [CONS] Routine 06/16/20 11:54 Consult to Dietary [Consult to Stoker Installation Mechanic] [CONS] Routine 06/17/20 07:17 Consult to Case Management/Physician Office Secretary [CONS] Routine Labs Pending at D/C: None Recommended Follow-up Testing/Procedures: Primary care provider within 7 to 10 days of discharge. -Recommend repeat CBC, CMP, and magnesium at that visit. -Patient was started on twice daily 400 mg magnesium at discharge and this may need to be adjusted. Hospital Course: This is a 64-year-old female who is very well-known to this service from multiple prior admissions due to chronic alcohol abuse. Of note she is also been to our facility in cardiac arrest and was successfully resuscitated. She was also noted to have acute rupture of esophageal varices with significant bleeding which were repaired in the past. She had been to our facility and was discharged to the [facility] in [place] due to breaking a court order to remain free of alcohol. She was discharged from [place] approximately 1 week ago and as soon as she returned home she began drinking again. She was seen in our emergency department earlier in the week for alcohol intoxication and was discharged home. She reported to our ED on 06/15/2020 requesting assistance to stop drinking. At that time she is noted to be unable to ambulate. She does wear depends however she has not been able to change these when she becomes incontinent at home. On prior visits she is noted to have multiple bowel movements around her house and then will drink her buttocks around the floor to clean herself. In the ED attempt was made to return the patient to [place] however they report they have no beds available. [facility] was brought into the discussion and she was ultimately evaluated by them for return to their [facility] program. As noted on admission patient had not been drinking long enough to have full-blown delirium. She did undergo LOG COOKER evaluation and was noted to have moderate cognitive impairment. As noted she has been here multiple times and her cognitive abilities have been noted to decline throughout her visits. Clinically she looks better now than she has on multiple prior visits. She was noted to have leukocytosis on admission but this was likely due to her being dehydrated with an elevated anion gap. She is given IV fluids. Magnesium was low and was supplemented. She has had chronic hypomagnesemia and she will be discharged on 400 mg twice daily magnesium. She was started on c holestyramine for her diarrhea. This has since resolved and she will not be discharged on this. She was started on a probiotic and this will be continued at discharge. She was noting nausea throughout her stay but this has resolved. She has been eating today and was doing well. She did ambulate with physical therapy and Occupational Therapy who noted she walked 300 feet unassisted and they were planning to discharge her from their services. As mentioned prior patient has been accepted at [facility] and will discharge there today. All home medications were continued. Patient has new prescriptions for 40 mg twice daily magnesium and a probiotic. Recommend patient follow-up with her primary care provider within 7 to 10 days of discharge, sooner if needed. Recommend repeat CBC, CMP, and magnesium at that visit. Recommend patient continue [facility] treatment plan and abstain from alcohol. - Patient Instructions Diet: Usual Diet as Tolerated Activity: As Tolerated Driving: Do Not Drive Showering/Bathing: May Shower Notify Provider of: Fever, Increased Pain, Nausea and/or Vomiting Other/Special Instructions: Follow-up with primary care provider within 7 to 10 days of discharge, sooner if needed. Stop drinking alcohol. Take all new medications as prescribed. Resume home medications as directed. You will be discharged to [facility]. Follow their instructions for treatment. Should symptoms return or worsen contact primary care provider return the emergency room. - Discharge Plan *PRESCRIPTION DRUG MONITORING PROGRAM REVIEWED*: No *COPY OF PRESCRIPTION DRUG MONITORING REPORT IN PATIENT ANTHONY: No Prescriptions/Med Rec: Saccharomyces Boulardii [Florastor] 500 mg PO BID #20 cap Magnesium Oxide 400 mg PO BID #30 tablet Home Medications: Home Meds Fluticasone Propion/Salmeterol [Advair 250-50 Diskus] 1 puff IH BID 05/24/16 [History] atorvaSTATin [Lipitor] 20 mg PO DAILY 05/24/16 [History] Albuterol Sulfate [Albuterol Sulfate Hfa] 2 puff PO Q4HR PRN 12/22/18 [History] Sucralfate [Carafate] 1 gm PO QID 12/22/18 [History] Folic Acid 1 mg PO DAILY #30 tablet 12/23/18 [Rx] Thiamine [Vitamin B-1] 100 mg PO BEDTIME #30 tab 12/23/18 [Rx] Cranberry Fruit Extract [Cranberry] 500 mg PO DAILY 04/01/19 [History] Lutein/Minerals/Vit A,C & E [Ocuvite] 1 tab PO DAILY 04/01/19 [History] Montelukast [Singulair] 10 mg PO BEDTIME 04/01/19 [History] DULoxetine [Cymbalta] 30 mg PO DAILY 04/14/20 [History] Losartan [Cozaar] 12.5 mg PO DAILY 04/14/20 [History] Mirtazapine 15 mg PO BEDTIME 04/14/20 [History] OLANZapine [Olanzapine] 10 mg PO BEDTIME 04/14/20 [History] atenoloL [Atenolol] 25 mg PO DAILY 04/14/20 [History] lamoTRIgine [Lamotrigine] 100 mg PO DAILY 04/14/20 [History] Ferrous Sulfate [Iron] 325 mg PO BID 06/16/20 [History] Pantoprazole [ProTONIX] 40 mg PO BIDAC 06/16/20 [History] Topiramate 25 mg PO BEDTIME 06/16/20 [History] Magnesium Oxide 400 mg PO BID #30 tablet 06/17/20 [Rx] Saccharomyces Boulardii [Florastor] 500 mg PO BID #20 cap 06/17/20 [Rx] Oxygen Therapy Mode: Room Air Forms: ED Department Discharge Referrals: Renard Verduzco MD [Primary Care Provider] - 06/24/20 2:30 pm (Please come 15 minutes prio to the appointment to register at 14:15 or 2:15 pm) - Discharge Summary/Plan Comment DC Time >30 min.: No - General Info Date of Service: 06/17/20 Admission Dx/Problem (Free Text: Admission Diagnosis/Problem Admission Diagnosis/Problem Failure to thrive in adult/etoh abuse Functional Status: Reports: Pain Controlled, Tolerating Diet, Ambulating, Urinating. Denies: New Symptoms - Review of Systems General: Reports: No Symptoms, Weakness (Greatly improved to resolved). Denies: Fever, Fatigue, Malaise, Chills HEENT: Reports: No Symptoms. Denies: Headaches, Sore Throat Pulmonary: Reports: No Symptoms. Denies: Shortness of Breath, Cough, Sputum, Wh eezing Cardiovascular: Reports: No Symptoms. Denies: Chest Pain, Palpitations, Dyspnea on Exertion Gastrointestinal: Reports: No Symptoms. Denies: Abdominal Pain, Constipation, Diarrhea, Nausea, Vomiting Genitourinary: Reports: No Symptoms. Denies: Pain Musculoskeletal: Reports: No Symptoms Skin: Reports: No Symptoms. Denies: Cyanosis Neurological: Reports: Confusion, Difficulty Walking (Although greatly improved to resolved), Gait Disturbance (Greatly improved). Denies: Dizziness, Headache, Numbness, Seizure, Syncope, Tingling, Tremors, Trouble Speaking, Change in Speech Psychiatric: Reports: No Symptoms - Patient Data Vitals - Most Recent: Last Vital Signs Temp 98.2 F 06/17/20 10:57 Pulse 91 06/17/20 10:57 Resp 16 06/17/20 10:57 BP 157/87 H 06/17/20 10:57 Pulse Ox 97 06/17/20 10:57 Weight - Most Recent: 120 lb 3.2 oz I&O - Last 24 hours: Intake & Output 06/16/20 06/17/20 06/17/20 22:59 06:59 14:59 Intake Total 2910 1964 240 Output Total 400 550 Balance 2510 1414 240 Lab Results - Last 24 hrs: Laboratory Results - last 24 hr 06/17/20 06/17/20 Range/Units 05:07 05:07 WBC 4.99 (3.98-10.04) K/mm3 RBC 4.53 (3.98-5.22) M/mm3 Hgb 11.8 (11.2-15.7) gm/dl Hct 39.1 (34.1-44.9) % MCV 86.3 (79.4-94.8) fl MCH 26.0 (25.6-32.2) pg MCHC 30.2 L (32.2-35.5) g/dl RDW Std Deviation 62.3 H (36.4-46.3) fL Plt Count 184 (182-369) K/mm3 MPV 10.4 (9.4-12.3) fl Neut % (Auto) 55.7 (34.0-71.1) % Lymph % (Auto) 28.9 (19.3-51.7) % [place] % (Auto) 9.2 (4.7-12.5) % Eos % (Auto) 5.6 (0.7-5.8) Baso % (Auto) 0.2 (0.1-1.2) % Neut # (Auto) 2.78 (1.56-6.13) K/mm3 Lymph # (Auto) 1.44 (1.18-3.74) K/mm3 [place] # (Auto) 0.46 H (0.24-0.36) K/mm3 Eos # (Auto) 0.28 (0.04-0.36) K/mm3 Baso # (Auto) 0.01 (0.01-0.08) K/mm3 Sodium 142 (136-145) mEq/L Potassium 4.2 (3.5-5.1) mEq/L Chloride 108 H (98-107) mEq/L Carbon Dioxide 24 (21-32) mEq/L Anion Gap 14.2 (5-15) BUN 8 (7-18) mg/dL Creatinine 0.5 L (0.55-1.02) mg/dL Est Cr Clr Drug Dosing 100.41 mL/min Estimated GFR (MDRD) > 60 (>60) mL/min BUN/Creatinine Ratio 16.0 (14-18) Glucose 94 (80-115) mg/dL Calcium 7.7 L (8.5-10.1) mg/dL Magnesium 1.7 L (1.8-2.4) mg/dl Total Bilirubin 0.6 (0.2-1.0) mg/dL AST 32 (15-37) U/L ALT 46 (14-59) U/L Alkaline Phosphatase 107 (46-116) U/L Total Protein 5.6 L (6.4-8.2) g/dl Albumin 3.0 L (3.4-5.0) g/dl Globulin 2.6 gm/dL Albumin/Globulin Ratio 1.2 (1-2) Med Orders - Current: Current Medications Acetaminophen (Acetaminophen 325 Mg Tab) 650 mg PO Q4H PRN PRN Reason: Pain Last Admin: 06/17/20 05:33 Dose: 650 mg Documented by: Albuterol (Albuterol 6.7 Gm Inhaler) 0 gm INH Q4HR PRN PRN Reason: Shortness of Breath Atenolol (Atenolol 25 Mg Tab) 25 mg PO DAILY [facility] Last Admin: 06/17/20 09:57 Dose: 25 mg Documented by: Cholestyramine Resin (Cholestyramine/Sucrose Powder 4 Gm Packet) 4 gm PO DAILY [facility] Last Admin: 06/17/20 09:59 Dose: 4 gm Documented by: Duloxetine HCl (Duloxetine 30 Mg Cap) 30 mg PO DAILY [facility] Last Admin: 06/17/20 09:58 Dose: 30 mg Documented by: Enoxaparin Sodium (Enoxaparin 40 Mg/0.4 Ml Syringe) 40 mg SUBCUT Q24H [facility] Last Admin: 06/17/20 09:58 Dose: 40 mg Documented by: Ferrous Sulfate (Ferrous Sulfate 324 Mg Tab.Ec) 324 mg PO BID [facility] Last Admin: 06/17/20 09:58 Dose: 324 mg Documented by: Folic Acid (Folic Acid 1 Mg Tab) 1 mg PO DAILY [facility] Last Admin: 06/17/20 09:57 Dose: 1 mg Documented by: Lamotrigine (Lamotrigine 100 Mg Tab) 100 mg PO BEDTIME [facility] Last Admin: 06/16/20 20:22 Dose: 100 mg Documented by: Magnesium Oxide (Magnesium Oxide 400 Mg Tab) 400 mg PO BID [facility] Last Admin: 06/17/20 09:57 Dose: 400 mg Documented by: Mirtazapine (Mirtazapine 15 Mg Tab) 15 mg PO BEDTIME [facility] Mometasone Furoate/Formoterol Fumar (Formoterol/Mometasone 200-5 Mcg 8.8 Gm Inhaler) 0 puff IH BIDRT [facility] Last Admin: 06/17/20 06:15 Dose: 1 puff Documented by: Montelukast Sodium (Montelukast 10 Mg Tab) 10 mg PO BEDTIME [facility] Olanzapine (Olanzapine 5 Mg Tab) 10 mg PO ACDINNER [facility] Last Admin: 06/16/20 16:20 Dose: 10 mg Documented by: Pantoprazole Sodium (Pantoprazole 40 Mg Tab.Cr) 40 mg PO BIDAC [facility] Last Admin: 06/17/20 09:58 Dose: 40 mg Documented by: Potassium Chloride (Potassium Chloride 20 Meq Tab.Er) 40 meq PO DAILY [facility] Last Admin: 06/17/20 09:57 Dose: 40 meq Documented by: Saccharomyces Boulardii (Saccharomyces Boulardii (Probiotic) 250 Mg Cap) 500 mg PO BID [facility] Last Admin: 06/17/20 09:58 Dose: 500 mg Documented by: Simvastatin (Simvastatin 20 Mg Tab) 20 mg PO DAILY [facility] Last Admin: 06/17/20 09:58 Dose: 20 mg Documented by: Sucralfate (Sucralfate 1 Gm Tab) 1 gm PO QID [facility] Last Admin: 06/17/20 09:59 Dose: 1 gm Documented by: Thiamine HCl (Thiamine 100 Mg Tab) 100 mg PO BEDTIME [facility] Last Admin: 06/16/20 20:22 Dose: 100 mg Documented by: Topiramate (Topiramate 25 Mg Tab) 25 mg PO BEDTIME [facility] Discontinued Medications Sodium Chloride (Normal Saline) 1,000 mls @ 999 mls/hr IV ONETIME ONE Stop: 06/15/20 10:33 Last Admin: 06/15/20 09:48 Dose: 999 mls/hr Documented by: Magnesium Sulfate 4 gm/ Premix 50 mls @ 12.5 mls/hr IV ONETIME ONE Stop: 06/15/20 14:33 Last Admin: 06/15/20 10:47 Dose: 12.5 mls/hr Documented by: Dextrose/Sodium Chloride (Dextrose 5%-Normal Saline) 1,000 mls @ 150 mls/hr IV ASDIRECTED [facility] Last Admin: 06/16/20 04:51 Dose: 150 mls/hr Documented by: Potassium Chloride 10 meq/ (Premix) 100 mls @ 100 mls/hr IV Q1H [facility] Stop: 06/16/20 15:59 Last Admin: 06/16/20 15:29 Dose: 100 mls/hr Documented by: Magnesium Sulfate 4 gm/ Premix 50 mls @ 12.5 mls/hr IV ONETIME ONE Stop: 06/16/20 15:50 Last Admin: 06/16/20 12:02 Dose: 12.5 mls/hr Documented by: Sodium Chloride (Normal Saline) 1,000 mls @ 100 mls/hr IV ASDIRECTED [facility] Last Admin: 06/17/20 12:01 Dose: 100 mls/hr Documented by: Lamotrigine (Lamotrigine 100 Mg Tab) 100 mg PO ONETIME ONE Stop: 06/15/20 20:09 Last Admin: 06/15/20 22:20 Dose: 100 mg Documented by: Lorazepam (Lorazepam 2 Mg/Ml Sdv) 0.5 mg IVPUSH ONETIME ONE Stop: 06/15/20 09:41 Last Admin: 06/15/20 09:48 Dose: 0.5 mg Documented by: Lorazepam (Lorazepam 2 Mg/Ml Sdv) 0.5 mg IVPUSH ONETIME ONE Stop: 06/15/20 12:08 Last Admin: 06/15/20 12:11 Dose: 0.5 mg Documented by: Non-Formulary Medication (Fluvoxamine) 50 mg PO BEDTIME [facility] Last Admin: 06/16/20 10:56 Dose: Not Given Documented by: Ondansetron HCl (Ondansetron 4 Mg/2 Ml Sdv) 4 mg IVPUSH ONETIME ONE Stop: 06/15/20 09:35 Last Admin: 06/15/20 09:48 Dose: 4 mg Documented by: Ondansetron HCl (Ondansetron 4 Mg/2 Ml Sdv) 4 mg IVPUSH ONETIME ONE Stop: 06/16/20 09:34 Last Admin: 06/16/20 10:59 Dose: 4 mg Documented by: Pantoprazole Sodium (Pantoprazole 40 Mg Tab.Cr) 40 mg PO BEDTIME [facility] Last Admin: 06/16/20 20:23 Dose: 40 mg Documented by: Potassium Chloride (Potassium Chloride 20 Meq Tab.Er) 20 meq PO ONETIME ONE Stop: 06/15/20 09:38 Last Admin: 06/15/20 09:48 Dose: 20 meq Documented by: - Exam Quality Assessment: Reports: DVT Prophylaxis. Denies: Supplemental Oxygen, U rine Catheter General: Reports: Alert, Oriented, Cooperative, No Acute Distress HEENT: Reports: Pupils Equal, Pupils Reactive, Mucous Membr. Moist/[place] Neck: Reports: Supple, Trachea Midline Lungs: Reports: Clear to Auscultation, Normal Respiratory Effort Cardiovascular: Reports: Regular Rate, Regular Rhythm GI/Abdominal Exam: Normal Bowel Sounds, Soft, Non-Tender, No Distention (Female) Exam: Deferred Rectal (Female) Exam: Deferred Back Exam: Reports: Normal Inspection, Full Range of Motion Extremities: Normal Inspection, Normal Range of Motion, Non-Tender, No Pedal Edema, Normal Capillary Refill Skin: Reports: Warm, Dry, Intact Neurological: Reports: No New Focal Deficit Psy/Mental Status: Reports: Alert, Normal Affect, Normal Mood
[2020-06-17] MEDS ORDERED: Topiramate 25 MG Tab PO SCH (21:00)
[2020-06-17] MEDS ORDERED: Montelukast 10 MG Tab PO SCH (21:00)
[2020-06-17] MEDS ORDERED: Mirtazapine 15 MG Tab PO SCH (21:00)
== END 2020-06-17 14:00 | disposition other institution (70) | DRG 775 ==
LOC: JD.ED 08:30 → JD.MS 16:58
PROVIDERS: ADMIT Pediatrics; ATTEND Pediatrics
DX: F10.20 Alcohol dependence, uncomplicated (principal); E83.42 Hypomagnesemia; E87.6 Hypokalemia; F41.9 Anxiety disorder, unspecified; F31.9 Bipolar disorder, unspecified; E86.0 Dehydration; E88.09 Other disorders of plasma-protein metabolism, not elsewhere classified; F43.10 Post-traumatic stress disorder, unspecified; I10 Essential (primary) hypertension; Z20.822 Contact with and (suspected) exposure to COVID-19; H54.7 Unspecified visual loss; E78.00 Pure hypercholesterolemia, unspecified; K52.9 Noninfective gastroenteritis and colitis, unspecified; K21.9 Gastro-esophageal reflux disease without esophagitis; R32 Unspecified urinary incontinence; M19.90 Unspecified osteoarthritis, unspecified site; M81.0 Age-related osteoporosis without current pathological fracture; Z90.49 Acquired absence of other specified parts of digestive tract; Z87.440 Personal history of urinary (tract) infections; Z86.74 Personal history of sudden cardiac arrest; Z79.899 Other long term (current) drug therapy; Z88.1 Allergy status to other antibiotic agents; Z88.5 Allergy status to narcotic agent; Z90.89 Acquired absence of other organs; Z86.19 Personal history of other infectious and parasitic diseases; R27.0 Ataxia, unspecified
CPT/HCPCS: 36415; 80053; 80143; 80179; 80306; 80307; 81001; 83735; 84443; 85025; 86140; 92523-GN; 93005; 93010; 94640; 94760; 94761; 96365; 96366; 96375; 96376; 97110-GP; 97162-GP; 97167-GO; 97530-GO; 97535-GO; 99284; 99285-25; A9270-GY; J1650; J2060; J2405; J3475; J3480; J7030; J7042; U0002

== ENCOUNTER 2020-07-13 10:14 | Emergency (ER) | payer BC ==
[2020-07-13] MEDS ORDERED: Metoclopramide 10 MG/2 ML SDV IVPUSH ONE ×2 (10:28→18:08)
[2020-07-13] MEDS ORDERED: Dextrose 5%-Lactated Ringers 1,000 ML IV SCH (10:30)
--- NOTE | 2020-07-13 10:36 | EDM.PDOCBH ---
<Hudson Bryant - Last Filed: 07/13/20 19:08> ED HPI GENERAL MEDICAL PROBLEM - General Chief Complaint: Behavioral/Psych Stated Complaint: [facility] Time Seen by Provider: 07/13/20 10:20 - Related Data Allergies Allergy/AdvReac Type Severity Reaction Status Date / Time levofloxacin [From Levaquin] Allergy Intermediate Rash Verified 07/14/20 11:01 propoxyphene napsylate AdvReac Mild Headache Verified 07/14/20 11:01 [From Darvocet-N] Home Meds: Home Meds Fluticasone Propion/Salmeterol [Advair 250-50 Diskus] 1 puff IH BID 05/24/16 [History] atorvaSTATin [Lipitor] 20 mg PO DAILY 05/24/16 [History] Albuterol Sulfate [Albuterol Sulfate Hfa] 2 puff PO Q4HR PRN 12/22/18 [History] Sucralfate [Carafate] 1 gm PO QID 12/22/18 [History] Folic Acid 1 mg PO DAILY #30 tablet 12/23/18 [Rx] Thiamine [Vitamin B-1] 100 mg PO BEDTIME #30 tab 12/23/18 [Rx] Cranberry Fruit Extract [Cranberry] 500 mg PO DAILY 04/01/19 [History] Lutein/Minerals/Vit A,C & E [Ocuvite] 1 tab PO DAILY 04/01/19 [History] Montelukast [Singulair] 10 mg PO BEDTIME 04/01/19 [History] DULoxetine [Cymbalta] 30 mg PO DAILY 04/14/20 [History] Losartan [Cozaar] 12.5 mg PO DAILY 04/14/20 [History] Mirtazapine 15 mg PO BEDTIME 04/14/20 [History] OLANZapine [Olanzapine] 10 mg PO BEDTIME 04/14/20 [History] atenoloL [Atenolol] 25 mg PO DAILY 04/14/20 [History] lamoTRIgine [Lamotrigine] 100 mg PO DAILY 04/14/20 [History] Ferrous Sulfate [Iron] 325 mg PO BID 06/16/20 [History] Pantoprazole [ProTONIX] 40 mg PO BIDAC 06/16/20 [History] Topiramate 25 mg PO BEDTIME 06/16/20 [History] Magnesium Oxide 400 mg PO BID #30 tablet 06/17/20 [Rx] Saccharomyces Boulardii [Florastor] 500 mg PO BID #20 cap 06/17/20 [Rx] LORazepam [Ativan] 1 mg PO TID #18 tablet 07/14/20 [Rx] Ondansetron [Zofran ODT] 4 mg PO BID #4 tab.dis 07/14/20 [Rx] Departure - Departure Time of Disposition: 19:08 Disposition: Home, Self-Care 01 Clinical Impression: Alcohol abuse with physiological dependence, Chronic alcohol abuse, Hypernatremia Acute alcohol intoxication in patient with alcoholism with blood alcohol level over 0.3 Qualifiers: Complication of substance-induced condition: uncomplicated Qualified Code(s): F10.220 - Alcohol dependence with intoxication, uncomplicated Acute alcohol intoxication Qualifiers: Complication of substance-induced condition: with delirium Qualified Code(s): F10.921 - Alcohol use, unspecified with intoxication delirium - Discharge Information Instructions: Alcohol Abuse and Dependence Information, Adult, Alcohol Intoxication, [id number]-Pyap Referrals: Renard Verduzco MD [Primary Care Provider] - Forms: ED Department Discharge Additional Instructions: Evaluation in the emergency room today in regards to being found on the floor of your kitchen on a couple of pillows and unresponsive even to sternal rub. Lexi stout did a wellness check on you today and found you in this condition. Paramedics were therefore summoned and you start to arouse when she were loaded onto the gurney and brought to the hospital by ambulance. Lab test revealed today that your serum sodium level was elevated at 150 and normal should be 140. It is evident that you have not eaten much for the last several days with a low serum calcium level and low magnesium level which were corrected while in the ED. Your blood alcohol concentration was 0.40 g%. You were treated with intravenous fluids and given thiamine 100 mg and magnesium infusion 2 g. You subsequently were given Reglan 7.5 mg IV for nausea relief both this morning and again late this afternoon. Ativan was given 1 mg at 1800 hrs. for feeling tremulous and mild signs of alcohol withdrawal. If you wish to discuss stopping to drink alcohol once you are sober please call [facility] human services at [phone]. <Nik Vieyra - Last Filed: 07/17/20 05:28> ED HPI GENERAL MEDICAL PROBLEM - General Source of Information: Reports: Patient, EMS History Limitations: Reports: Intoxication - History of Present Illness INITIAL COMMENTS - FREE TEXT/NARRATIVE: 64-year-old female who is a chronic alcoholic presents to the ED per [facility]. Apparently a well adult check was done by [facility] this morning and they found her unresponsive on her kitchen floor. She was not wearing any underwear and had lost control of her bladder. She was very difficult to arouse even with sternal rub. Paramedics identified her O2 sats initially to be around 90% but improved to around 97% when she aroused and they got her outside on the gurney. Patient in the ED is able to make eye contact and smile but speech is dysarthric and she appears to be under the influence of alcohol and possibly other drugs. She has presented to the ED on many occasions and has received treatment for alcoholism on multiple occasions in the past as well. There are no signs of apparent injuries on initial exam. Onset: Today (Found on the floor of her home this morning sleeping in a couple of cushions. She appears to have passed out. She was very difficult to arouse with sternal rub. O2 sats were 90% when paramedics arrived. They came up to 97% once the patient was outside on the gurney and she had awakened.), Other Duration: Chronic (Patient has history of chronic alcoholism. She was in treatment for a month and within the day after getting out of treatment she went right back to drinking alcohol. This was approximately a month ago) Location: Reports: Other (No apparent injuries.) Quality: Reports: Other (My alcohol and possibly other medications.) Severity: Moderate Improves with: Reports: Other (Improves with stimulation.) Worsens with: Reports: Other Context: Reports: Other (History of chronic alcohol abuse.). Denies: Activity, Exercise (Falls asleep easily when left alone.), Lifting, Sick Contact, Trauma Associated Symptoms: Reports: Confusion, Loss of Appetite, Malaise, Weakness. 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: Reports: Other (see below) (Generalized.) Past Medical History HEENT History: Reports: Impaired Vision Other HEENT History: wears glasses Cardiovascular History: Reports: None, High Cholesterol, Hypertension Respiratory History: Reports: None, Asthma Gastrointestinal History: Reports: Chronic Diarrhea, GERD, Irritable Bowel Syndrome Genitourinary History: Reports: Urinary Incontinence, UTI, Recurrent PHARMACY CONSULTANT History: Reports: Other (See Below) Other PHARMACY CONSULTANT History: Patient states she started menopause at 54 yoa Musculoskeletal History: Reports: None, Arthritis, Other (See Below) Other Musculoskeletal History: knee/shoulder pain Neurological History: Reports: Headaches, Chronic Other Neuro History: headaches Psychiatric History: Reports: Addiction, Anxiety, Bipolar, Depression, Eating Disorders Other Psychiatric History: eating disorder at age 14 Endocrine/Metabolic History: Reports: Osteoporosis Hematologic History: Reports: None Immunologic History: Reports: Other (See Below) Other Immunologic History: recurrent staph infections Oncologic (Cancer) History: Reports: None - Infectious Disease History Infectious Disease History: Reports: Chicken Pox, Measles - Past Surgical History Head Surgeries/Procedures: Reports: None HEENT Surgical History: Reports: Adenoidectomy, Oral Surgery, Tonsillectomy, Other (See Below) Other HEENT Surgeries/Procedures: facial surgery to fractures on right side of face from fall. Cardiovascular Surgical History: Reports: None Respiratory Surgical History: Reports: None Other Respiratory Surgeries/Procedures: per ER report GI Surgical History: Reports: Appendectomy Other GI Surgeries/Procedures: GI bleed Female Surgical History: Reports: None Other Female Surgeries/Procedures: Patient states she had her ureters dilated in [facility] [place] Musculoskeletal Surgical History: Reports: ORIF, Shoulder Surgery, Other (See Below) Other Musculoskeletal Surgeries/Procedures:: wrist ORIF Social & Family History - Family History Family Medical History: No Pertinent Family History Cardiac: Reports: None Psychiatric: Reports: Other (See Below) Other Psychiatric Family History: 2 uncles ETOH abuse - Caffeine Use Caffeine Use: Reports: Soda Other Caffeine Use: Unknown if ever used due to being currently intoxicated. 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 Denies: Fever, Chills HEENT: Reports: No Symptoms Respiratory: Reports: No Symptoms Cardiovascular: Reports: No Symptoms Endocrine: Reports: Fatigue GI/Abdominal: Reports: No Symptoms, Diarrhea (Chronic diarrhea from alcohol abuse.), Decreased Appetite. Denies: Nausea, Vomiting : Reports: Frequency Musculoskeletal: Reports: Neck Pain (Previous fracture cervical spine.), Back Pain, Joint Pain (Knees hips and low back.) Skin: Reports: Bruising (She finds she bruises fairly easily.) Neurological: Reports: Confusion, Dizziness, Difficulty Walking, Weakness. Denies: Headache, Numbness, Syncope, Tingling Psychiatric: Reports: Anxiety (Due to intoxication.), Depression, Mood Lability, Other Hematologic/Lymphatic: Reports: No Symptoms (Chronic substance abuse.) Immunologic: Reports: No Symptoms ED EXAM, BEHAVIORAL HEALTH - Physical Exam Exam: See Below Exam Limited By: Altered Mental Status (Patient intoxicated by alcohol and other drugs. Altered mental status with mild confusion and dysarthria.) General Appearance: Lethargic, Thin, Other Eye Exam: Bilateral Eye: Normal Inspection (No scleral Icterus or blepharal pallor.), Nystagmus (On lateral gaze bilaterally.), PERRL Throat/Mouth: Normal Lips ( oropharyngeal infection.), Normal Teeth, Normal Oropharynx (No), Other (Tongue is very dry and shriveled and bright red.) Head: Atraumatic, Normocephalic, Other Neck: Normal Inspection, Supple (No outward signs of any head or facial trauma.), Non-Tender, Full Range of Motion, Other. No: Lymphadenopathy (L), Lymphadenopathy (R) Respiratory/Chest: No Respiratory Distress, Lungs Clear, Normal Breath Sounds, No Accessory Muscle Use, Other (Shallow breathing decreased air entry at lower 20% lung hudson with no adventitial sounds. Breath smells strongly of alcohol likely vodka.) Cardiovascular: Normal Peripheral Pulses, No Edema (Mild tachycardia at rest.), No Gallop, No Murmur, No Rub, Tachycardia. No: Regular Rate, Rhythm GI/Abdominal: Normal Bowel Sounds, Soft, Non-Tender, No Organomegaly, No Abnormal Bruit, No Mass, Pelvis Stable. No: Guarding, Rigid, Rebound Back Exam: Normal Inspection, Full Range of Motion. No: CVA Tenderness (L), CVA Tenderness (R) Extremities: Normal Inspection, Normal Range of Motion, Non-Tender, No Pedal Edema, Other (There is very slight bruising over the left patella.) Neurological: CN II-XII Intact, No Motor/Sensory Deficits. No: Normal Cognition, Normal Reflexes (She is areflexic.), Oriented x 3 (Disoriented to time) Psychiatric: Flat Affect. No: Oriented, Homicidal Thoughts, Phobic, Zoroastrianism Delusions, Suicidal Thoughts, Tangential Thoughts, Auditory Hallucinations, Visual Hallucinations, Grandiose Thoughts, Paranoid Thoughts, Threatening Behavior Skin Exam: Warm, Dry, Intact, Normal color, No rash #1 Interpretation EKG Date: 07/13/20 Time: 11:14 Rhythm: NSR Rate (Beats/Min): 90 (Occasional PVCs) [place]: Normal P-Wave: Enlarged (Left atrial hypertrophy pattern) QRS: Other (Initial poor R wave progression. Decreased voltage limb leads) ST-T: Other (T wave flattening aVL nonspecific finding) QT: Prolonged (Markedly prolonged) EKG Interpretation Comments: Abnormal ECG COURSE, BEHAVIORAL HEALTH COMP - Course Vital Signs: Last Vital Signs Temp 36.2 C 07/13/20 10:59 Pulse 92 07/13/20 10:59 Resp 20 07/13/20 10:59 BP 139/75 07/13/20 10:59 Pulse Ox 95 07/13/20 10:59 Orders, Labs, Meds: Laboratory Tests 07/13/20 07/13/20 07/13/20 Range/Units 10:30 10:30 11:08 WBC (3.98-10.04) K/mm3 RBC (3.98-5.22) M/mm3 Hgb (11.2-15.7) gm/dl Hct (34.1-44.9) % MCV (79.4-94.8) fl MCH (25.6-32.2) pg MCHC (32.2-35.5) g/dl RDW Std Deviation (36.4-46.3) fL Plt Count (182-369) K/mm3 MPV (9.4-12.3) fl Neut % (Auto) (34.0-71.1) % Lymph % (Auto) (19.3-51.7) % [place] % (Auto) (4.7-12.5) % Eos % (Auto) (0.7-5.8) Baso % (Auto) (0.1-1.2) % Neut # (Auto) (1.56-6.13) K/mm3 Lymph # (Auto) (1.18-3.74) K/mm3 [place] # (Auto) (0.24-0.36) K/mm3 Eos # (Auto) (0.04-0.36) K/mm3 Baso # (Auto) (0.01-0.08) K/mm3 PT (9.7-12.0) SECONDS INR APTT (21.7-31.4) SECONDS Sodium 150 H (136-145) mEq/L Potassium 3.6 (3.5-5.1) mEq/L Chloride 109 H (98-107) mEq/L Carbon Dioxide 28 (21-32) mEq/L Anion Gap 16.6 H (5-15) BUN 10 (7-18) mg/dL Creatinine 0.5 L (0.55-1.02) mg/dL Est Cr Clr Drug Dosing 91.89 mL/min Estimated GFR (MDRD) > 60 (>60) mL/min BUN/Creatinine Ratio 20.0 H (14-18) Glucose 89 (70-99) mg/dL Calcium 6.6 L (8.5-10.1) mg/dL Magnesium 1.7 L (1.8-2.4) mg/dL Total Bilirubin 0.3 (0.2-1.0) mg/dL AST 40 H (15-37) U/L ALT 29 (14-59) U/L Alkaline Phosphatase 110 (46-116) U/L Creatine Kinase 225 H (26-192) U/L Troponin I < 0.017 (0.00-0.056) ng/mL C-Reactive Protein 0.2 (<1.0) mg/dL NT-Pro-B Natriuret Pep (0-125) pg/mL Total Protein 6.1 L (6.4-8.2) g/dl Albumin 3.2 L (3.4-5.0) g/dl Globulin 2.9 gm/dL Albumin/Globulin Ratio 1.1 (1-2) Lipase 91 (73-393) U/L Urine Color Yellow (Yellow) Urine Appearance Clear (Clear) Urine pH 6.5 (5.0-8.0) Ur Specific [place] 1.020 (1.005-1.030) Urine Protein Negative (Negative) Urine Glucose (UA) Negative (Negative) Urine Ketones Negative (Negative) Urine Occult Blood Negative (Negative) Urine Nitrite Negative (Negative) Urine Bilirubin Negative (Negative) Urine Urobilinogen 0.2 (0.2-1.0) Ur Leukocyte Esterase Negative (Negative) Urine RBC 0-5 (0-5) /hpf Urine WBC 0-5 (0-5) /hpf Ur Squamous Epith Cells 0-5 (0-5) /hpf Urine Bacteria Few (FEW) /hpf Urine Mucus Rare (FEW) /hpf Urine Opiates Screen Negative (SWVWYI=806) Ur Buprenorphine Scrn Negative (CUTOFF=10) Ur Oxycodone Screen Negative (YHP4WR=693) Urine Methadone Screen Negative (DHEORG=924) Ur Propoxyphene Screen Negative (PPBOYL=311) Ur Barbiturates Screen Negative (GRXLPA=020) Ur Tricyclics Screen Negative (ELESIU=206) Ur Phencyclidine Scrn Negative (CUTOFF=25) Ur Amphetamine Screen Negative (PBNSAN=318) U Methamphetamines Scrn Negative (XPWJPL=823) U Benzodiazepines Scrn Negative (USBNEW=781) U Cocaine Metab Screen Negative (DAIXIY=172) U Marijuana (THC) Screen Negative (CUTOFF=50) Ethyl Alcohol 0.40 (0.00) gm% 07/13/20 07/13/20 07/13/20 Range/Units 11:08 11:08 11:08 WBC 7.11 (3.98-10.04) K/mm3 RBC 4.45 (3.98-5.22) M/mm3 Hgb 11.9 (11.2-15.7) gm/dl Hct 38.1 (34.1-44.9) % MCV 85.6 (79.4-94.8) fl MCH 26.7 (25.6-32.2) pg MCHC 31.2 L (32.2-35.5) g/dl RDW Std Deviation 63.2 H (36.4-46.3) fL Plt Count 332 D (182-369) K/mm3 MPV 8.8 L (9.4-12.3) fl Neut % (Auto) 73.1 H (34.0-71.1) % Lymph % (Auto) 20.4 (19.3-51.7) % [place] % (Auto) 5.5 (4.7-12.5) % Eos % (Auto) 0.3 L (0.7-5.8) Baso % (Auto) 0.4 (0.1-1.2) % Neut # (Auto) 5.20 (1.56-6.13) K/mm3 Lymph # (Auto) 1.45 (1.18-3.74) K/mm3 [place] # (Auto) 0.39 H (0.24-0.36) K/mm3 Eos # (Auto) 0.02 L (0.04-0.36) K/mm3 Baso # (Auto) 0.03 (0.01-0.08) K/mm3 PT 10.6 (9.7-12.0) SECONDS INR 0.99 APTT 23.9 (21.7-31.4) SECONDS Sodium (136-145) mEq/L Potassium (3.5-5.1) mEq/L Chloride (98-107) mEq/L Carbon Dioxide (21-32) mEq/L Anion Gap (5-15) BUN (7-18) mg/dL Creatinine (0.55-1.02) mg/dL Est Cr Clr Drug Dosing mL/min Estimated GFR (MDRD) (>60) mL/min BUN/Creatinine Ratio (14-18) Glucose (70-99) mg/dL Calcium (8.5-10.1) mg/dL Magnesium (1.8-2.4) mg/dL Total Bilirubin (0.2-1.0) mg/dL AST (15-37) U/L ALT (14-59) U/L Alkaline Phosphatase (46-116) U/L Creatine Kinase (26-192) U/L Troponin I (0.00-0.056) ng/mL C-Reactive Protein (<1.0) mg/dL NT-Pro-B Natriuret Pep 102 (0-125) pg/mL Total Protein (6.4-8.2) g/dl Albumin (3.4-5.0) g/dl Globulin gm/dL Albumin/Globulin Ratio (1-2) Lipase (73-393) U/L Urine Color (Yellow) Urine Appearance (Clear) Urine pH (5.0-8.0) Ur Specific [place] (1.005-1.030) Urine Protein (Negative) Urine Glucose (UA) (Negative) Urine Ketones (Negative) Urine Occult Blood (Negative) Urine Nitrite (Negative) Urine Bilirubin (Negative) Urine Urobilinogen (0.2-1.0) Ur Leukocyte Esterase (Negative) Urine RBC (0-5) /hpf Urine WBC (0-5) /hpf Ur Squamous Epith Cells (0-5) /hpf Urine Bacteria (FEW) /hpf Urine Mucus (FEW) /hpf Urine Opiates Screen (LRIZEU=090) Ur Buprenorphine Scrn (CUTOFF=10) Ur Oxycodone Screen (CUG5RO=938) Urine Methadone Screen (ZMUVNO=234) Ur Propoxyphene Screen (SBFJPL=574) Ur Barbiturates Screen (BXIZVM=083) Ur Tricyclics Screen (FIOLIR=808) Ur Phencyclidine Scrn (CUTOFF=25) Ur Amphetamine Screen (DMZLZF=288) U Methamphetamines Scrn (QZFGGG=367) U Benzodiazepines Scrn (BTHTZJ=131) U Cocaine Metab Screen (EIMNTV=487) U Marijuana (THC) Screen (CUTOFF=50) Ethyl Alcohol (0.00) gm% Medications Discontinued Medications Generic Name Dose Route Start Last Admin Trade Name Freq PRN Reason Stop Dose Admin Dextrose/Lactated Ringer's 1,000 mls @ 500 mls/hr 07/13/20 10:30 07/13/20 10:51 Dextrose 5%-Lactated Ringers IV 500 mls/hr ASDIRECTED STEPHANE Administration Dextrose/Sodium Chloride 1,000 mls @ 250 mls/hr 07/13/20 12:30 07/13/20 12:51 Dextrose 5%-1/2 Ns IV 250 mls/hr ASDIRECTED STEPHANE Administration Lorazepam 1 mg 07/13/20 18:09 07/13/20 18:23 Lorazepam 2 Mg/Ml Sdv IVPUSH 07/13/20 18:10 1 mg ONETIME ONE Administration Metoclopramide HCl 7.5 mg 07/13/20 10:28 07/13/20 10:51 Metoclopramide 10 Mg/2 Ml Sdv IVPUSH 07/13/20 10:29 7.5 mg ONETIME ONE Administration Metoclopramide HCl 7.5 mg 07/13/20 18:08 07/13/20 18:22 Metoclopramide 10 Mg/2 Ml Sdv IVPUSH 07/13/20 18:09 7.5 mg ONETIME ONE Administration Thiamine HCl 100 mg 07/13/20 10:42 07/13/20 10:51 Thiamine 200 Mg/2 Ml Mdv IVPUSH 07/13/20 10:43 100 mg ONETIME ONE Administration Re-Assessment/Re-Exam: 64-year-old female who is well-known to our emergency department per [facility]. A well-old evaluation was carried out this morning by [facility] human services. They found her unresponsive on the kitchen floor on some cushions. Paramedics were summoned and they identified O2 sats of 90% on room air. With sternal rub and arousal and getting up on the gurney and outside her O2 sats improved to 97%. Patient is a history of chronic alcoholism and failed multiple treatment programs. She denies nausea vomiting It is unclear when she would have eaten last. House apparently was not in severe disarray as per usual. She appeared to have lost control of her bladder likely has been on the floor overnight. Examination did not show any outward signs of trauma. Breath smells strongly of alcohol likely vodka. Plan IV D5 Ringer's lactate at open. She will be given Reglan 7.5 mg IV thiamine 100 mg IV. Routine labs to include blood alcohol level and urine drug screen. Re-Assessment/Re-Exam Date: 07/13/20 (11:45: Patient has been sleeping in her room quietly without any issues. Vital signs show BP 136/76 sats are 97% on room air heart rate 95) Re-Assessment/Re-Exam Time: 12:21 (. IV D5 normal saline that is running now will be discontinued and replaced with one half normal saline D5 at 250 mils per hour due to hypernatremia) Medical Clearance: 07/13/20 13:07 Lipase is 91. Urinalysis was completely normal with no signs of infection. Urine drug screen proved to be completely negative. Blood alcohol is 0.40 g% 07/13/20 18:15 patient has awoken and is now alert. She reports that she is nauseated however. She will be given Reglan 7.5 mg IV for nausea relief since last dose was at 1020 this morning. She will also be given a dose of Ativan 1 mg IV for tremors. Departure - Departure Condition: Fair - Discharge Information *PRESCRIPTION DRUG MONITORING PROGRAM REVIEWED*: Not Applicable *COPY OF PRESCRIPTION DRUG MONITORING REPORT IN PATIENT ANTHONY: Not Applicable
[2020-07-13] MEDS ORDERED: Thiamine 200 MG/2 ML MDV IVPUSH ONE (10:42)
[2020-07-13 11:08] VITALS: BP 139/75; PULSE 92
[2020-07-13] MEDS ORDERED: Dextrose 5%-0.45% NaCl 1,000 ML IV SCH (12:30)
[2020-07-13] MEDS ORDERED: LORazepam 2 MG/ML SDV IVPUSH ONE (18:09)
== END 2020-07-13 20:33 | disposition home or self-care (01) ==
LOC: JD.ED 10:14
DX: F10.220 Alcohol dependence with intoxication, uncomplicated (principal); E87.0 Hyperosmolality and hypernatremia; E78.00 Pure hypercholesterolemia, unspecified; I10 Essential (primary) hypertension; K21.9 Gastro-esophageal reflux disease without esophagitis; Y90.0 Blood alcohol level of less than 20 mg/100 ml; Z88.8 Allergy status to other drugs, medicaments and biological substances; Z88.1 Allergy status to other antibiotic agents; Z79.899 Other long term (current) drug therapy
CPT/HCPCS: 36415; 80053; 80306; 80307; 81001; 82550; 83690; 83735; 83880; 84484; 85025; 85610; 85730; 86140; 93005; 96374; 96375; 96376; 99284; J2060; J2765; J3411; J7042; J7121; 93010

== ENCOUNTER 2020-07-14 10:39 | Emergency (ER) | payer BC ==
[2020-07-14] MEDS ORDERED: Ondansetron 4 MG Tab.DIS PO ONE (11:08)
[2020-07-14] MEDS ORDERED: LORazepam 1 MG Tab PO ONE (11:08)
--- NOTE | 2020-07-14 11:19 | EDM.PDOCBH ---
ED HPI GENERAL MEDICAL PROBLEM - General Chief Complaint: Drug or Alcohol Abuse Stated Complaint: SWELLING,DETOX,ANXIETY BROUGHT IN BY [facility] Time Seen by Provider: 07/14/20 10:54 Source of Information: Reports: Patient History Limitations: Reports: No Limitations - History of Present Illness INITIAL COMMENTS - FREE TEXT/NARRATIVE: 64-year-old female presents to the emergency department today with complaints of detox from alcohol and swelling of her bilateral hands. The patient was seen in the emergency department yesterday for alcohol intoxication. She was then sent over to [facility] for treatment. She presents today with complaints of anxiety, tremors and nausea as she states it has been 48 hours since her last drink and she feels as though she is detoxing from alcohol. She also has swelling noted to her bilateral hands. She denies any pain or discomfort with this, however. She states she otherwise feels well. She denies any vomiting, diarrhea, constipation, or abdominal pain. She denies any fever or chills. I have ordered for the patient to receive 1 mg p.o., and Zofran 4 mg ODT. I have also ordered a CBC, CMP and a magnesium level on this patient. I suspect that the patient's swelling is likely due to liver damage and low albumin as the patient has not been eating prior to being admitted to the [facility]. Bilateral Hand Pain Score (Numeric/FACES): 8 - Related Data Allergies Allergy/AdvReac Type Severity Reaction Status Date / Time levofloxacin [From Levaquin] Allergy Intermediate Rash Verified 07/14/20 11:01 propoxyphene napsylate AdvReac Mild Headache Verified 07/14/20 11:01 [From Darvocet-N] Home Meds: Home Meds Fluticasone Propion/Salmeterol [Advair 250-50 Diskus] 1 puff IH BID 05/24/16 [History] atorvaSTATin [Lipitor] 20 mg PO DAILY 05/24/16 [History] Albuterol Sulfate [Albuterol Sulfate Hfa] 2 puff PO Q4HR PRN 12/22/18 [History] Sucralfate [Carafate] 1 gm PO QID 12/22/18 [History] Folic Acid 1 mg PO DAILY #30 tablet 12/23/18 [Rx] Thiamine [Vitamin B-1] 100 mg PO BEDTIME #30 tab 12/23/18 [Rx] Cranberry Fruit Extract [Cranberry] 500 mg PO DAILY 04/01/19 [History] Lutein/Minerals/Vit A,C & E [Ocuvite] 1 tab PO DAILY 04/01/19 [History] Montelukast [Singulair] 10 mg PO BEDTIME 04/01/19 [History] DULoxetine [Cymbalta] 30 mg PO DAILY 04/14/20 [History] Losartan [Cozaar] 12.5 mg PO DAILY 04/14/20 [History] Mirtazapine 15 mg PO BEDTIME 04/14/20 [History] OLANZapine [Olanzapine] 10 mg PO BEDTIME 04/14/20 [History] atenoloL [Atenolol] 25 mg PO DAILY 04/14/20 [History] lamoTRIgine [Lamotrigine] 100 mg PO DAILY 04/14/20 [History] Ferrous Sulfate [Iron] 325 mg PO BID 06/16/20 [History] Pantoprazole [ProTONIX] 40 mg PO BIDAC 06/16/20 [History] Topiramate 25 mg PO BEDTIME 06/16/20 [History] Magnesium Oxide 400 mg PO BID #30 tablet 06/17/20 [Rx] Saccharomyces Boulardii [Florastor] 500 mg PO BID #20 cap 06/17/20 [Rx] LORazepam [Ativan] 1 mg PO TID #18 tablet 07/14/20 [Rx] Ondansetron [Zofran ODT] 4 mg PO BID #4 tab.dis 07/14/20 [Rx] Past Medical History HEENT History: Reports: Impaired Vision Other HEENT History: wears glasses Cardiovascular History: Reports: None, High Cholesterol, Hypertension Respiratory History: Reports: Asthma Gastrointestinal History: Reports: Chronic Diarrhea, GERD, Irritable Bowel Syndrome Genitourinary History: Reports: Urinary Incontinence, UTI, Recurrent 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 Below) 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: Patient states she started menopause at 54 yoa Musculoskeletal History: Reports: Arthritis, Other (See Below) Other Musculoskeletal History: knee/shoulder pain Neurological History: Reports: Headaches, Chronic Other Neuro History: headaches Psychiatric History: Reports: Addiction, Anxiety, Bipolar, Depression, Eating Disorders Other Psychiatric History: eating disorder at age 14 Endocrine/Metabolic History: Reports: Osteoporosis Hematologic History: Reports: None Immunologic History: Reports: Other (See Below) Other Immunologic History: recurrent staph infections Oncologic (Cancer) History: Reports: None - Infectious Disease History Infectious Disease History: Reports: Chicken Pox, Measles - Past Surgical History Head Surgeries/Procedures: Reports: None HEENT Surgical History: Reports: Adenoidectomy, Oral Surgery, Tonsillectomy, Other (See Below) Other HEENT Surgeries/Procedures: facial surgery to fractures on right side of face from fall. Cardiovascular Surgical History: Reports: None Respiratory Surgical History: Reports: None Other Respiratory Surgeries/Procedures: per ER report GI Surgical History: Reports: Appendectomy Other GI Surgeries/Procedures: GI bleed Female Surgical History: Reports: None Other Female Surgeries/Procedures: Patient states she [facility] Musculoskeletal Surgical History: Reports: ORIF, Shoulder Surgery, Other (See Below) Other Musculoskeletal Surgeries/Procedures:: wrist ORIF Social & Family History - Family History Family Medical History: No Pertinent Family History Cardiac: Reports: None Psychiatric: Reports: Other (See Below) Other Psychiatric Family History: 2 uncles ETOH abuse - Tobacco Use Tobacco Use Status *Q: Never Tobacco User - Caffeine Use Caffeine Use: Reports: None Other Caffeine Use: Unknown if ever used due to being currently intoxicated. 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 ED EXAM, BEHAVIORAL HEALTH - Physical Exam Exam: See Below Exam Limited By: No Limitations General Appearance: Alert, WD/WN, No Apparent Distress Ears: Normal External Exam, Hearing Grossly Normal Nose: Normal Inspection Throat/Mouth: Normal Inspection, Normal Lips, Normal Voice, No Airway Compromise Head: Atraumatic Neck: Normal Inspection, Supple Respiratory/Chest: No Respiratory Distress, Lungs Clear, Normal Breath Sounds, No Accessory Muscle Use, Chest Non-Tender Cardiovascular: Normal Peripheral Pulses, Regular Rate, Rhythm, No Edema, No Murmur GI/Abdominal: Normal Bowel Sounds, Soft, Non-Tender, No Distention (Female) Exam: Deferred Rectal (Female) Exam: Deferred Back Exam: Normal Inspection Extremities: Normal Inspection, No Pedal Edema, Other (Edema noted to dorsal aspect of bilateral hands and proximal fingers. There is no redness or warmth noted.) Neurological: Alert, Normal Mood/Affect, Normal Cognition, Oriented x 3 Psychiatric: Alert, Normal Affect, Normal Cognition, Normal Mood, Oriented Skin Exam: Warm, Dry, Intact, Normal color COURSE, BEHAVIORAL HEALTH COMP - Course Vital Signs: Last Vital Signs Temp 98.1 F 07/14/20 10:53 Pulse 98 07/14/20 10:53 Resp 13 07/14/20 10:53 BP 170/95 H 07/14/20 10:53 Pulse Ox 98 07/14/20 10:53 Orders, Labs, Meds: Laboratory Tests 07/14/20 07/14/20 Range/Units 12:15 12:15 WBC 7.34 (3.98-10.04) K/mm3 RBC 4.07 (3.98-5.22) M/mm3 Hgb 10.9 L (11.2-15.7) gm/dl Hct 34.0 L (34.1-44.9) % MCV 83.5 (79.4-94.8) fl MCH 26.8 (25.6-32.2) pg MCHC 32.1 L (32.2-35.5) g/dl RDW Std Deviation 59.8 H (36.4-46.3) fL Plt Count 277 (182-369) K/mm3 MPV 9.2 L (9.4-12.3) fl Neut % (Auto) 81.6 H (34.0-71.1) % Lymph % (Auto) 9.0 L (19.3-51.7) % Hemphill % (Auto) 8.7 (4.7-12.5) % Eos % (Auto) 0.3 L (0.7-5.8) Baso % (Auto) 0.3 (0.1-1.2) % Neut # (Auto) 5.99 (1.56-6.13) K/mm3 Lymph # (Auto) 0.66 L (1.18-3.74) K/mm3 Hemphill # (Auto) 0.64 H (0.24-0.36) K/mm3 Eos # (Auto) 0.02 L (0.04-0.36) K/mm3 Baso # (Auto) 0.02 (0.01-0.08) K/mm3 Manual Slide Review Abnormal smear Sodium 137 D (136-145) mEq/L Potassium 2.9 L (3.5-5.1) mEq/L Chloride 100 (98-107) mEq/L Carbon Dioxide 24 (21-32) mEq/L Anion Gap 15.9 H (5-15) BUN 7 (7-18) mg/dL Creatinine 0.5 L (0.55-1.02) mg/dL Est Cr Clr Drug Dosing 100.24 mL/min Estimated GFR (MDRD) > 60 (>60) mL/min BUN/Creatinine Ratio 14.0 (14-18) Glucose 83 (70-99) mg/dL Calcium 6.1 L (8.5-10.1) mg/dL Magnesium 1.1 L (1.8-2.4) mg/dL Total Bilirubin 0.7 (0.2-1.0) mg/dL AST 45 H (15-37) U/L ALT 29 (14-59) U/L Alkaline Phosphatase 118 H (46-116) U/L Total Protein 5.9 L (6.4-8.2) g/dl Albumin 3.2 L (3.4-5.0) g/dl Globulin 2.7 gm/dL Albumin/Globulin Ratio 1.2 (1-2) Medications Discontinued Medications Generic Name Dose Route Start Last Admin Trade Name Freq PRN Reason Stop Dose Admin Al Hydroxide/Mg Hydroxide 30 ml 07/14/20 18:08 07/14/20 18:18 Aluminum Hydroxide/Magnesium Hydroxide/Simethicone Susp 30 Ml Cup PO 07/14/20 18:09 30 ml ONETIME ONE Administration Magnesium Sulfate 4 gm/ Premix 50 mls @ 12.5 mls/hr 07/14/20 12:58 07/14/20 14:17 IV 07/14/20 16:57 12.5 mls/hr ONETIME ONE Administration Potassium Chloride 10 meq/ 100 mls @ 100 mls/hr 07/14/20 13:15 07/14/20 17:49 Premix IV 07/14/20 17:14 100 mls/hr Q1H STEPHANE Administration Lorazepam 1 mg 07/14/20 11:08 07/14/20 11:15 Lorazepam 1 Mg Tab PO 07/14/20 11:09 1 mg ONETIME ONE Administration Ondansetron HCl 4 mg 07/14/20 11:08 07/14/20 11:15 Ondansetron 4 Mg Tab.Dis PO 07/14/20 11:09 4 mg ONETIME ONE Administration Re-Assessment/Re-Exam: Hematology shows a WBC of 7.34, hemoglobin 10.9, hematocrit 34.0, platelet count 277, chemistry reveals a sodium of 1.37, potassium of 2.9, carbon dioxide 24, anion gap 15.9, BUN 7, creatinine 0.5, glucose 73, magnesium 1.1, calcium 6.1, AST 45, ALT 29, alk phos 118, total protein 5.9 and albumin is 3.2. I have ordered for this patient to receive magnesium 4 g IV and potassium 40 mEq IV. Re-Assessment/Re-Exam Date: 07/14/20 (Patient received 40 mEq of potassium IV as well as 4 g of magnesium due to a low magnesium level. She tolerated this all well.) Discharge vs Psych Eval/Treatment:: 07/14/20 18:31 Re Ramesh will be discharged to the [facility]. I have ordered for her to receive Ativan 1 mg 3 times daily x3 days then Ativan 1 mg twice daily x3 days then Ativan 1 mg at bedtime for 3 days. I have also ordered for her to receive Zofran 4 mg twice daily for two days for nausea/vomiting. Departure - Departure Time of Disposition: 18:45 Disposition: DC/Tfer to Other Condition: Good Clinical Impression: Alcohol withdrawal Qualifiers: Complication of substance-induced condition: with perceptual disturbance Qualified Code(s): F10.232 - Alcohol dependence with withdrawal with perceptual disturbance - Discharge Information Prescriptions: LORazepam [Ativan] 1 mg PO TID #18 tablet Ondansetron [Zofran ODT] 4 mg PO BID #4 tab.dis Referrals: Renard Verduzco MD [Primary Care Provider] - Forms: ED Department Discharge Sepsis Event Note (ED) - Evaluation Sepsis Screening Result: No Definite Risk - Focused Exam Vital Signs: Vital Signs Temp Pulse Resp BP Pulse Ox 07/14/20 10:53 98.1 F 98 13 170/95 H 98
[2020-07-14] MEDS ORDERED: Magnesium Sulfate/Water 4 GM in Premix Bag 1 BAG IV ONE (12:58)
[2020-07-14] MEDS: Potassium Chloride 10 MEQ in Premix Bag 1 BAG IV SCH ×4 (14:20→17:49)
[2020-07-14] MEDS ORDERED: Aluminum Hydroxide/Magnesium Hydroxide/Simethicone Susp 30 ML Cup PO ONE (18:08)
[2020-07-14 18:49] VITALS: BP 140/82; PULSE 93
== END 2020-07-14 19:04 | disposition other institution (70) ==
LOC: JD.ED 10:39
DX: F10.232 Alcohol dependence with withdrawal with perceptual disturbance (principal); R60.0 Localized edema; Z88.1 Allergy status to other antibiotic agents
CPT/HCPCS: 36415; 80053; 83735; 85025; 96365; 96366; 96368; 99285; A9270; J3475; J3480; 99284

== ENCOUNTER 2020-08-01 15:35 | Emergency (ER) | payer BC ==
[2020-08-01] MEDS ORDERED: Sodium Chloride 0.9% 1,000 ML IV STA ×2 (15:56→17:06)
[2020-08-01 16:49] LABS: ACETAMINOPHEN 0 ug/mL (10-30)
--- NOTE | 2020-08-01 18:44 | EDM.PDOCBH ---
ED HPI GENERAL MEDICAL PROBLEM - General Chief Complaint: Drug or Alcohol Abuse Stated Complaint: MEDICAD CLEARANCE Time Seen by Provider: 08/01/20 15:54 Source of Information: Reports: Patient, RN Notes Reviewed History Limitations: Reports: No Limitations - History of Present Illness INITIAL COMMENTS - FREE TEXT/NARRATIVE: Patient is a 64-year-old female presenting [facility] to go to the [facility] crisis center. She is found to be intoxicated. She is unfortunately chronic alcoholic and has been through treatment a number of times. 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 Reports that she saw her primary care provider today and her blood work is all normal. Denies any nausea or vomiting. She is alert and oriented x3. - Related Data Allergies Allergy/AdvReac Type Severity Reaction Status Date / Time levofloxacin [From Levaquin] Allergy Intermediate Rash Verified 08/01/20 15:50 propoxyphene napsylate AdvReac Mild Headache Verified 08/01/20 15:50 [From Darvocet-N] Home Meds: Home Meds Fluticasone Propion/Salmeterol [Advair 250-50 Diskus] 1 puff IH BID 05/24/16 [History] atorvaSTATin [Lipitor] 20 mg PO DAILY 05/24/16 [History] Albuterol Sulfate [Albuterol Sulfate Hfa] 2 puff PO Q4HR PRN 12/22/18 [History] Sucralfate [Carafate] 1 gm PO QID 12/22/18 [History] Folic Acid 1 mg PO DAILY #30 tablet 12/23/18 [Rx] Thiamine [Vitamin B-1] 100 mg PO BEDTIME #30 tab 12/23/18 [Rx] Cranberry Fruit Extract [Cranberry] 500 mg PO DAILY 04/01/19 [History] Lutein/Minerals/Vit A,C & E [Ocuvite] 1 tab PO DAILY 04/01/19 [History] Montelukast [Singulair] 10 mg PO BEDTIME 04/01/19 [History] DULoxetine [Cymbalta] 30 mg PO DAILY 04/14/20 [History] Losartan [Cozaar] 12.5 mg PO DAILY 04/14/20 [History] Mirtazapine 15 mg PO BEDTIME 04/14/20 [History] OLANZapine [Olanzapine] 10 mg PO BEDTIME 04/14/20 [History] atenoloL [Atenolol] 25 mg PO DAILY 04/14/20 [History] lamoTRIgine [Lamotrigine] 100 mg PO DAILY 04/14/20 [History] Ferrous Sulfate [Iron] 325 mg PO BID 06/16/20 [History] Pantoprazole [ProTONIX] 40 mg PO BIDAC 06/16/20 [History] Topiramate 25 mg PO BEDTIME 06/16/20 [History] Magnesium Oxide 400 mg PO BID #30 tablet 06/17/20 [Rx] Saccharomyces Boulardii [Florastor] 500 mg PO BID #20 cap 06/17/20 [Rx] LORazepam [Ativan] 1 mg PO TID #18 tablet 07/14/20 [Rx] Past Medical History HEENT History: Reports: Impaired Vision Other HEENT History: wears glasses Cardiovascular History: Reports: None, High Cholesterol, Hypertension Respiratory History: Reports: Asthma Gastrointestinal History: Reports: Chronic Diarrhea, GERD, Irritable Bowel Syndrome Genitourinary History: Reports: Urinary Incontinence, UTI, Recurrent [employer]IOR [employer] 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[employer]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 History: Reports: Other (See Below) 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 at 54 yoa Musculoskeletal History: Reports: Arthritis, Other (See Below) Other Musculoskeletal History: knee/shoulder pain Neurological History: Reports: Headaches, Chronic Other Neuro History: headaches Psychiatric History: Reports: Addiction, Anxiety, Bipolar, Depression, Eating D isorders Other Psychiatric History: eating disorder at age 14 Endocrine/Metabolic History: Reports: Osteoporosis Hematologic History: Reports: None Immunologic History: Reports: Other (See Below) Other Immunologic History: recurrent staph infections Oncologic (Cancer) History: Reports: None - Infectious Disease History Infectious Disease History: Reports: Chicken Pox, Measles - Past Surgical History Head Surgeries/Procedures: Reports: None HEENT Surgical History: Reports: Adenoidectomy, Oral Surgery, Tonsillectomy, Other (See Below) Other HEENT Surgeries/Procedures: facial surgery to fractures on right side of face from fall. Cardiovascular Surgical History: Reports: None Respiratory Surgical History: Reports: None Other Respiratory Surgeries/Procedures: per ER report GI Surgical History: Reports: Appendectomy Other GI Surgeries/Procedures: GI bleed Female Surgical History: Reports: None Other Female Surgeries/Procedures: Patient states she [facility] Musculoskeletal Surgical History: Reports: ORIF, Shoulder Surgery, Other (See Below) Other Musculoskeletal Surgeries/Procedures:: wrist ORIF Social & Family History - Family History Family Medical History: No Pertinent Family History Cardiac: Reports: None Psychiatric: Reports: Other (See Below) Other Psychiatric Family History: 2 uncles ETOH abuse - Tobacco Use Tobacco Use Status *Q: Never Tobacco User - Caffeine Use Caffeine Use: Reports: None Other Caffeine Use: Unknown if ever used due to being currently intoxicated. 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 Denies: Chest Pain Endocrine: Reports: No Symptoms GI/Abdominal: Reports: No Symptoms. Denies: Nausea, Vomiting : Reports: No Symptoms Musculoskeletal: Reports: No Symptoms Skin: Reports: No Symptoms Neurological: Reports: No Symptoms. Denies: Dizziness, Headache Psychiatric: Reports: Anxiety, Other (Chronic EtOH abuse) Hematologic/Lymphatic: Reports: No Symptoms Immunologic: Reports: No Symptoms ED EXAM, BEHAVIORAL HEALTH - Physical Exam Exam: See Below Exam Limited By: Intoxication General Appearance: Alert, WD/WN, No Apparent Distress Respiratory/Chest: No Respiratory Distress, Lungs Clear, Normal Breath Sounds, No Accessory Muscle Use, Chest Non-Tender Cardiovascular: Normal Peripheral Pulses, Regular Rate, Rhythm, No Edema, No Gallop, No JVD, No Murmur, No Rub GI/Abdominal: Normal Bowel Sounds, Soft, Non-Tender, No Organomegaly, No Distention, No Abnormal Bruit, No Mass Neurological: Alert, CN II-XII Intact, Normal Cognition, Normal Reflexes, No Motor/Sensory Deficits, Oriented x 3, Ataxia (Mild) Psychiatric: Alert, Oriented #1 Interpretation EKG Date: 08/01/20 Time: 16:35 Rhythm: NSR Rate (Beats/Min): 68 [place]: Normal P-Wave: Present QRS: Normal ST-T: Normal QT: Normal EKG Interpretation Comments: Sinus rhythm at 68/min Left atrial hypertrophy Decreased voltage limb leads and precordial leads QTC mildly prolonged Initial poor R wave progression EKG interpreted by Dr. Azalia BRUMFIELD COURSE, BEHAVIORAL HEALTH COMP - Course Vital Signs: Last Vital Signs Temp 97.3 F 08/01/20 19:40 Pulse 86 08/01/20 19:40 Resp 16 08/01/20 19:40 BP 108/86 08/01/20 19:40 Pulse Ox 90 L 08/01/20 19:40 Orders, Labs, Meds: Active Orders 24 hr Category Date Time Status EKG Documentation Completion [RC] STAT Care 08/01/20 15:55 Active HCG QUALITATIVE,URINE [URCHEM] Stat Lab 08/01/20 15:55 Stop Req Sodium Chloride 0.9% [Normal Saline] 1,000 ml Med 08/01/20 17:06 Active IV NOW Medication Orders Sodium Chloride (Normal Saline) 1,000 mls @ 150 mls/hr IV NOW STA Stop: 08/01/20 23:45 Last Admin: 08/01/20 18:36 Dose: 150 mls/hr Documented by: PORFIRIO Laboratory Tests 08/01/20 08/01/20 08/01/20 Range/Units 16:00 16:00 16:00 WBC 7.29 (3.98-10.04) K/mm3 RBC 4.64 (3.98-5.22) M/mm3 Hgb 12.6 D (11.2-15.7) gm/dl Hct 40.2 (34.1-44.9) % MCV 86.6 D (79.4-94.8) fl MCH 27.2 (25.6-32.2) pg MCHC 31.3 L (32.2-35.5) g/dl RDW Std Deviation 63.5 H (36.4-46.3) fL Plt Count 404 H D (182-369) K/mm3 MPV 9.0 L (9.4-12.3) fl Neutrophils % (Manual) 66 H (40-60) % Band Neutrophils % 0 (0-10) % Lymphocytes % (Manual) 32 (20-40) % Atypical Lymphs % 0 % Monocytes % (Manual) 2 (2-10) % Eosinophils % (Manual) 0 L (0.7-5.8) % Basophils % (Manual) 0 L (0.1-1.2) Platelet Estimate Increased Plt Morphology Comment See note Anisocytosis 1+ slight RBC Morph Comment Not Reportable PT 10.5 (9.7-12.0) SECONDS INR 0.98 Sodium 148 H D (136-145) mEq/L Potassium 4.1 (3.5-5.1) mEq/L Chloride 110 H (98-107) mEq/L Carbon Dioxide 25 (21-32) mEq/L Anion Gap 17.1 H (5-15) BUN 10 (7-18) mg/dL Creatinine 0.5 L (0.55-1.02) mg/dL Est Cr Clr Drug Dosing 104.98 mL/min Estimated GFR (MDRD) > 60 (>60) mL/min BUN/Creatinine Ratio 20.0 H (14-18) Glucose 85 (70-99) mg/dL Calcium 7.3 L (8.5-10.1) mg/dL Magnesium 2.0 (1.8-2.4) mg/dL Total Bilirubin 0.4 (0.2-1.0) mg/dL AST 31 (15-37) U/L ALT 25 (14-59) U/L Alkaline Phosphatase 94 (46-116) U/L Total Protein 7.0 (6.4-8.2) g/dl Albumin 3.7 (3.4-5.0) g/dl Globulin 3.3 gm/dL Albumin/Globulin Ratio 1.1 (1-2) TSH 3rd Generation 0.877 (0.358-3.74) uIU/mL Salicylates (2.8-20) mg/dL Acetaminophen 0 L (10-30) ug/mL Ethyl Alcohol 0.33 (0.00) gm% 08/01/20 08/01/20 Range/Units 16:00 21:54 WBC (3.98-10.04) K/mm3 RBC (3.98-5.22) M/mm3 Hgb (11.2-15.7) gm/dl Hct (34.1-44.9) % MCV (79.4-94.8) fl MCH (25.6-32.2) pg MCHC (32.2-35.5) g/dl RDW Std Deviation (36.4-46.3) fL Plt Count (182-369) K/mm3 MPV (9.4-12.3) fl Neutrophils % (Manual) (40-60) % Band Neutrophils % (0-10) % Lymphocytes % (Manual) (20-40) % Atypical Lymphs % % Monocytes % (Manual) (2-10) % Eosinophils % (Manual) (0.7-5.8) % Basophils % (Manual) (0.1-1.2) Platelet Estimate Plt Morphology Comment Anisocytosis RBC Morph Comment PT (9.7-12.0) SECONDS INR Sodium (136-145) mEq/L Potassium (3.5-5.1) mEq/L Chloride (98-107) mEq/L Carbon Dioxide (21-32) mEq/L Anion Gap (5-15) BUN (7-18) mg/dL Creatinine (0.55-1.02) mg/dL Est Cr Clr Drug Dosing mL/min Estimated GFR (MDRD) (>60) mL/min BUN/Creatinine Ratio (14-18) Glucose (70-99) mg/dL Calcium (8.5-10.1) mg/dL Magnesium (1.8-2.4) mg/dL Total Bilirubin (0.2-1.0) mg/dL AST (15-37) U/L ALT (14-59) U/L Alkaline Phosphatase (46-116) U/L Total Protein (6.4-8.2) g/dl Albumin (3.4-5.0) g/dl Globulin gm/dL Albumin/Globulin Ratio (1-2) TSH 3rd Generation (0.358-3.74) uIU/mL Salicylates 1.2 L (2.8-20) mg/dL Acetaminophen (10-30) ug/mL Ethyl Alcohol 0.21 (0.00) gm% Medications Generic Name Dose Route Start Last Admin Trade Name Freq PRN Reason Stop Dose Admin Sodium Chloride 1,000 mls @ 150 mls/hr 08/01/20 17:06 08/01/20 18:36 Normal Saline IV 08/01/20 23:45 150 mls/hr NOW STA Administration Discontinued Medications Generic Name Dose Route Start Last Admin Trade Name Freq PRN Reason Stop Dose Admin Sodium Chloride 1,000 mls @ 999 mls/hr 08/01/20 15:56 08/01/20 16:06 Normal Saline IV 08/01/20 16:56 999 mls/hr NOW STA Administration Medical Clearance: Patient is a 64-year-old female presenting to the emergency department for medical clearance to go to the [facility] crisis [facility] for treatment of alcoholism. She reports last drink was around 3 AM this morning. The time my exam, she is alert and oriented, however gait is mildly ataxic. I have ordered blood work and EKG. I will give her 1 L bolus of normal saline. 08/01/20 1710 Hematology was significant for platelets elevated 404, sodium 148, chloride 110, and gap 17.1. Blood alcohol is 0.33. Patient is sleeping quietly. We will change IV fluids to NS at 150 and allow her to sleep. Plan will be to recheck her blood alcohol this evening and discharged to the [facility] when appropriate. 08/01/20 22:38 Blood alcohol is now 0.21. We will discharge the patient to [facility] I will write to continue her home medications. I will also provide tapering Ativan prescription and Zofran which she may start tomorrow morning. Discharge instructions as documented. Departure - Departure Time of Disposition: 22:38 Disposition: DC/Tfer to Other 70 Clinical Impression: Alcohol intoxication Qualifiers: Complication of substance-induced condition: uncomplicated Qualified Code(s): F10.920 - Alcohol use, unspecified with intoxication, uncomplicated - Discharge Information *PRESCRIPTION DRUG MONITORING PROGRAM REVIEWED*: No *COPY OF PRESCRIPTION DRUG MONITORING REPORT IN PATIENT ANTHONY: No Instructions: Alcohol Intoxication, [id number] Referrals: Renard Verduzco MD [Primary Care Provider] - Forms: ED Department Discharge Additional Instructions: You were seen in the emergency department tonight for medical clearance to go to the [facility]. Work-up was completed. Initial blood alcohol was found to be elevated 0.33. While in the ER, you received IV fluids. Blood alcohol did come down to 0.21. You have been medically cleared to go to the residential crisis center. You should continue your home medications. You have been provided prescription for Ativan and Zofran to help with the withdrawal. Return to ER as needed. Sepsis Event Note (ED) - Evaluation Sepsis Screening Result: No Definite Risk - Focused Exam Vital Signs: Vital Signs Temp Pulse Resp BP Pulse Ox 08/01/20 19:40 97.3 F 86 16 108/86 90 L 08/01/20 15:45 97.8 F 72 18 106/63 94 L - My Orders Last 24 Hours: My Active Orders 08/01/20 15:55 EKG Documentation Completion [RC] STAT HCG QUALITATIVE,URINE [URCHEM] Stat 08/01/20 17:06 Sodium Chloride 0.9% [Normal Saline] 1,000 ml IV NOW - Assessment/Plan Last 24 Hours: My Active Orders 08/01/20 15:55 EKG Documentation Completion [RC] STAT HCG QUALITATIVE,URINE [URCHEM] Stat 08/01/20 17:06 Sodium Chloride 0.9% [Normal Saline] 1,000 ml IV NOW
[2020-08-01 20:49] VITALS: BP 108/86; PULSE 86
== END 2020-08-01 23:07 | disposition other institution (70) ==
LOC: JD.ED 15:35
DX: F10.129 Alcohol abuse with intoxication, unspecified (principal); Y90.0 Blood alcohol level of less than 20 mg/100 ml; E78.00 Pure hypercholesterolemia, unspecified; I10 Essential (primary) hypertension; Z88.1 Allergy status to other antibiotic agents; Z88.5 Allergy status to narcotic agent; Z79.899 Other long term (current) drug therapy
CPT/HCPCS: 36415; 80053; 80143; 80179; 80307; 83735; 84443; 85007; 85027; 85610; 93005; 99285; J7030; 93010; 99283

== ENCOUNTER 2020-11-10 14:31 | Emergency (ER) | payer BC ==
[2020-11-10 14:53] VITALS: BP 121/84; PULSE 116
[2020-11-10] MEDS ORDERED: Metoclopramide 10 MG/2 ML SDV IVPUSH ONE (15:09)
[2020-11-10] MEDS ORDERED: diphenhydrAMINE 50 MG/ML SDV IVPUSH ONE (15:10)
--- NOTE | 2020-11-10 15:12 | EDM.PDOCBH ---
ED HPI GENERAL MEDICAL PROBLEM - General Chief Complaint: Drug or Alcohol Abuse Stated Complaint: [facility] Time Seen by Provider: 11/10/20 15:09 Source of Information: Reports: Patient, EMS History Limitations: Reports: Intoxication - History of Present Illness INITIAL COMMENTS - FREE TEXT/NARRATIVE: 64-year-old female who is a known chronic alcoholic and her frequent visitor to our emergency room presents once again per [facility]. She presents acutely intoxicated and is unclear who called the ambulance. Usually her mother is looking out for her and calls the ambulance. She reports she went to the liquor store today and bought several shots of a liquor. She states she took 11 shots in a row to get drunk quickly. She drinks 500-750 mils of alcohol daily ,usually Vodka, with frequent falls at home. She has had multiple admissions to detox and rehab centers all meeting with failure over the last 15 years. Today she denies falling down or getting hurt. Her speech was legible with mild dysarthria when she first entered the ED. she could not tell me when she last had anything decent to eat. She denies nausea vomiting or hematemesis. Stools are always on the loose side without blood. She continues to slowly lose weight. She is known to have early stages of cirrhosis of the liver. Onset: Other (Chronic daily alcohol use) Duration: Chronic Location: Reports: Generalized (Cute alcohol intoxication) Quality: Reports: Other (Acute alcohol intoxication) Severity: Moderate Improves with: Reports: None Worsens with: Reports: None Context: Reports: Other (Patient reports drinking 11 shots of unknown alcohol just prior to coming to the ED.). Denies: Activity, Exercise, Lifting, Sick Contact, Trauma Associated Symptoms: Reports: Loss of Appetite, Malaise, Nausea/Vomiting (Occasional nausea denies vomiting in the morning), Other (Frequent falls due to being intoxicated). Denies: Confusion, Chest Pain, Cough, cough w sputum, Diaphoresis, Fever/Chills, Headaches, Rash, Seizure, Shortness of Breath, Syncope, Weakness Treatments GOLF RANGE ATTENDANT: Reports: Other (see below) (This unclear if she is compliant with her medications or not.) - Related Data Allergies Allergy/AdvReac Type Severity Reaction Status Date / Time levofloxacin [From Levaquin] Allergy Intermediate Rash Verified 11/10/20 14:53 propoxyphene napsylate AdvReac Mild Headache Verified 11/10/20 14:53 [From Darchemacet-N] Home Meds: Home Meds Fluticasone Propion/Salmeterol [Advair 250-50 Diskus] 1 puff IH BID 05/24/16 [History] atorvaSTATin [Lipitor] 20 mg PO DAILY 05/24/16 [History] Albuterol Sulfate [Albuterol Sulfate Hfa] 2 puff PO Q4HR PRN 12/22/18 [History] Sucralfate [Carafate] 1 gm PO QID 12/22/18 [History] Folic Acid 1 mg PO DAILY #30 tablet 12/23/18 [Rx] Thiamine [Vitamin B-1] 100 mg PO BEDTIME #30 tab 12/23/18 [Rx] Cranberry Fruit Extract [Cranberry] 500 mg PO DAILY 04/01/19 [History] Lutein/Minerals/Vit A,C & E [Ocuvite] 1 tab PO DAILY 04/01/19 [History] Montelukast [Singulair] 10 mg PO BEDTIME 04/01/19 [History] DULoxetine [Cymbalta] 30 mg PO DAILY 04/14/20 [History] Losartan [Cozaar] 12.5 mg PO DAILY 04/14/20 [History] Mirtazapine 15 mg PO BEDTIME 04/14/20 [History] OLANZapine [Olanzapine] 10 mg PO BEDTIME 04/14/20 [History] atenoloL [Atenolol] 25 mg PO DAILY 04/14/20 [History] lamoTRIgine [Lamotrigine] 100 mg PO DAILY 04/14/20 [History] Ferrous Sulfate [Iron] 325 mg PO BID 06/16/20 [History] Pantoprazole [ProTONIX] 40 mg PO BIDAC 06/16/20 [History] Topiramate 25 mg PO BEDTIME 06/16/20 [History] Magnesium Oxide 400 mg PO BID #30 tablet 06/17/20 [Rx] Saccharomyces Boulardii [Florastor] 500 mg PO BID #20 cap 06/17/20 [Rx] LORazepam [Ativan] 1 mg PO TID #18 tablet 07/14/20 [Rx] Past Medical History HEENT History: Reports: Impaired Vision Other HEENT History: wears glasses Cardiovascular History: Reports: None, High Cholesterol, Hypertension Respiratory History: Reports: Asthma Gastrointestinal History: Reports: Chronic Diarrhea, GERD, Irritable Bowel Syndrome Genitourinary History: Reports: Urinary Incontinence, UTI, Recurrent SLASHER TENDER History: Reports: Other (See Below) Other SLASHER TENDER History: Patient states she started menopause at 54 yoa Musculoskeletal History: Reports: Arthritis, Other (See Below) Other Musculoskeletal History: knee/shoulder pain Neurological History: Reports: Headaches, Chronic Other Neuro History: headaches Psychiatric History: Reports: Addiction, Anxiety, Bipolar, Depression, Eating Disorders Other Psychiatric History: eating disorder at age 14 Endocrine/Metabolic History: Reports: Osteoporosis Hematologic History: Reports: None Immunologic History: Reports: Other (See Below) Other Immunologic History: recurrent staph infections Oncologic (Cancer) History: Reports: None - Infectious Disease History Infectious Disease History: Reports: Chicken Pox, Measles - Past Surgical History Head Surgeries/Procedures: Reports: None HEENT Surgical History: Reports: Adenoidectomy, Oral Surgery, Tonsillectomy, Other (See Below) Other HEENT Surgeries/Procedures: facial surgery to fractures on right side of face from fall. Cardiovascular Surgical History: Reports: None Respiratory Surgical History: Reports: None Other Respiratory Surgeries/Procedures: per ER report GI Surgical History: Reports: Appendectomy Other GI Surgeries/Procedures: GI bleed Female Surgical History: Reports: None Other Female Surgeries/Procedures: Patient states she had her ureters dilated in [facility] Musculoskeletal Surgical History: Reports: ORIF, Shoulder Surgery, Other (See Below) Other Musculoskeletal Surgeries/Procedures:: wrist ORIF Social & Family History - Family History Family Medical History: No Pertinent Family History Cardiac: Reports: None Psychiatric: Reports: Other (See Below) Other Psychiatric Family History: 2 uncles ETOH abuse - Caffeine Use Caffeine Use: Reports: None Other Caffeine Use: Unknown if ever used due to being currently intoxicated. - Alcohol Use Alcohol Use History: Yes Days Per Week of Alcohol Use: 7 Days Per Week of Alcohol Use Comment: Drinks on average of 500-750 mils of hard alcohol on a daily basis. Usually vodka. 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 Denies: Fever, Chills HEENT: Reports: Glasses Respiratory: Reports: No Symptoms Cardiovascular: Reports: No Symptoms Endocrine: Reports: Fatigue GI/Abdominal: Reports: Diarrhea (Stools are always on the loose side semiformed.), Nausea (Nausea in the mornings with occasional emesis). 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 Denies: Confusion, Numbness, Syncope, Tingling Psychiatric: Reports: Depression Hematologic/Lymphatic: Reports: No Symptoms Immunologic: Reports: No Symptoms ED EXAM, BEHAVIORAL HEALTH - Physical Exam Exam: See Below Exam Limited By: Intoxication (Moderately intoxicated at the time of exam) General Appearance: No Apparent Distress, Other (Patient is thin and continues to slowly lose weight.). No: Anxious Eye Exam: Bilateral Eye: Conjunctival Injection (Mild bilaterally), Normal Inspection (No blepharal pallor or scleral icterus), Nystagmus (Bilateral nystagmus on lateral gaze), PERRL (No gaze palsy) Throat/Mouth: Normal Inspection, Normal Lips, Normal Oropharynx, Other (Strong smell of alcohol on her breath.) Head: Atraumatic, Normocephalic, Other Neck: Normal Inspection, Limited Range of Motion (She has chronic cervical neck pain from previous fractures. Very limited flexion extension and lateral rotation) Respiratory/Chest: No Respiratory Distress, Lungs Clear, Normal Breath Sounds, No Accessory Muscle Use Cardiovascular: Normal Peripheral Pulses, No Edema, No Gallop, No Murmur, No Rub, Tachycardia GI/Abdominal: Normal Bowel Sounds, Soft, No Organomegaly, Pelvis Stable, Tender (Mild tenderness right upper quadrant in the distribution of her liver.) Back Exam: Normal Inspection. No: CVA Tenderness (L), CVA Tenderness (R) Extremities: Normal Inspection, Normal Range of Motion, Non-Tender, No Pedal Edema Neurological: Normal Cognition, Oriented x 3. No: Normal Gait (Ataxic gait) Psychiatric: Oriented, Flat Affect. No: Homicidal Thoughts, Suicidal Plan, Suicidal Thoughts, Tangential Thoughts, Auditory Hallucinations Skin Exam: Warm, Dry, Intact, Normal color, No rash #1 Interpretation EKG Date: 11/10/20 Time: 15:30 Rhythm: Other (Sinus tachycardia) Rate (Beats/Min): 128 [place]: Normal P-Wave: Enlarged (Consider left atrial hypertrophy) QRS: Other (Q waves in leads V1 V2 consider old anteroseptal myocardial infarction. Decreased voltage throughout the limb leads.) ST-T: Other (Irregular baseline throughout the limb leads precludes ability to interpret baseline) QT: Prolonged (Mildly prolonged) EKG Interpretation Comments: Borderline ECG COURSE, BEHAVIORAL HEALTH COMP - Course Vital Signs: Last Vital Signs Temp 36.9 C 11/10/20 14:35 Pulse 116 H 11/10/20 14:35 Resp 16 11/10/20 14:35 BP 121/84 11/10/20 14:35 Pulse Ox 92 L 11/10/20 14:35 Orders, Labs, Meds: Active Orders 24 hr Category Date Time Status Dextrose 5%-Lactated Ringers 1,000 ml Med 11/10/20 15:15 Active IV ASDIRECTED Medication Orders Dextrose/Lactated Ringer's (Dextrose 5%-Lactated Ringers) 1,000 mls @ 999 mls/hr IV ASDIRECTED STEPHANE Last Admin: 11/10/20 16:07 Dose: 999 mls/hr Documented by: AP Laboratory Tests 11/10/20 11/10/20 11/10/20 Range/Units 16:00 16:00 16:00 WBC 7.77 (3.98-10.04) K/mm3 RBC 5.44 H (3.98-5.22) M/mm3 Hgb 15.7 D (11.2-15.7) gm/dl Hct 49.4 H (34.1-44.9) % MCV 90.8 D (79.4-94.8) fl MCH 28.9 (25.6-32.2) pg MCHC 31.8 L (32.2-35.5) g/dl RDW Std Deviation 62.8 H (36.4-46.3) fL Plt Count 303 D (182-369) K/mm3 MPV 9.3 L (9.4-12.3) fl Neut % (Auto) 66.0 (34.0-71.1) % Lymph % (Auto) 27.0 (19.3-51.7) % [place] % (Auto) 6.3 (4.7-12.5) % Eos % (Auto) 0.3 L (0.7-5.8) Baso % (Auto) 0.3 (0.1-1.2) % Neut # (Auto) 5.13 (1.56-6.13) K/mm3 Lymph # (Auto) 2.10 (1.18-3.74) K/mm3 [place] # (Auto) 0.49 H (0.24-0.36) K/mm3 Eos # (Auto) 0.02 L (0.04-0.36) K/mm3 Baso # (Auto) 0.02 (0.01-0.08) K/mm3 PT 10.5 (9.7-12.0) SECONDS INR 0.94 APTT 25.6 (21.7-31.4) SECONDS Sodium 142 (136-145) mEq/L Potassium 3.6 (3.5-5.1) mEq/L Chloride 103 (98-107) mEq/L Carbon Dioxide 27 (21-32) mEq/L Anion Gap 15.6 H (5-15) BUN 6 L (7-18) mg/dL Creatinine 0.6 (0.55-1.02) mg/dL Est Cr Clr Drug Dosing 80.42 mL/min Estimated GFR (MDRD) > 60 (>60) mL/min BUN/Creatinine Ratio 10.0 L (14-18) Glucose 85 (70-99) mg/dL Calcium 8.0 L (8.5-10.1) mg/dL Magnesium 1.9 (1.8-2.4) mg/dL Total Bilirubin 0.4 (0.2-1.0) mg/dL AST 50 H (15-37) U/L ALT 38 (14-59) U/L Alkaline Phosphatase 108 (46-116) U/L C-Reactive Protein <0.2 (<1.0) mg/dL Total Protein 7.5 (6.4-8.2) g/dl Albumin 4.1 (3.4-5.0) g/dl Globulin 3.4 gm/dL Albumin/Globulin Ratio 1.2 (1-2) Lipase 162 (73-393) U/L Ethyl Alcohol 0.43 (0.00) gm% Medications Generic Name Dose Route Start Last Admin Trade Name Abelardo PRN Reason Stop Dose Admin Dextrose/Lactated Ringer's 1,000 mls @ 999 mls/hr 11/10/20 15:15 11/10/20 16:07 Dextrose 5%-Lactated Ringers IV 999 mls/hr ASDIRECTED STEPHANE Administration Discontinued Medications Generic Name Dose Route Start Last Admin Trade Name Abelardo PRN Reason Stop Dose Admin Al Hydroxide/Mg Hydroxide Confirm 11/10/20 19:40 Aluminum Hydroxide/Magnesium Hydroxide/Simethicone Susp 30 Ml Cup Administered 11/10/20 19:41 Dose 30 ml .ROUTE .STK-MED ONE Al Hydroxide/Mg Hydroxide 30 ml 11/10/20 20:21 11/10/20 20:22 Aluminum Hydroxide/Magnesium Hydroxide/Simethicone Susp 30 Ml Cup PO 11/10/20 20:22 30 ml ONETIME ONE Administration Al Hydroxide/Mg Hydroxide Confirm 11/10/20 23:25 Aluminum Hydroxide/Magnesium Hydroxide/Simethicone Susp 30 Ml Cup Administered 11/10/20 23:26 Dose 30 ml .ROUTE .STK-MED ONE Al Hydroxide/Mg Hydroxide 30 ml 11/11/20 00:03 11/11/20 00:05 Aluminum Hydroxide/Magnesium Hydroxide/Simethicone Susp 30 Ml Cup PO 11/11/20 00:04 30 ml ONETIME ONE Administration Diphenhydramine HCl 25 mg 11/10/20 15:10 11/10/20 16:07 Diphenhydramine 50 Mg/Ml Sdv IVPUSH 11/10/20 15:11 25 mg ONETIME ONE Administration Lorazepam 1 mg 11/10/20 16:22 11/10/20 18:02 Lorazepam 2 Mg/Ml Sdv IVPUSH 11/10/20 16:23 1 mg ONETIME ONE Administration Lorazepam 1 mg 11/10/20 22:41 11/10/20 23:10 Lorazepam 1 Mg Tab PO 11/10/20 22:42 1 mg ONETIME ONE Administration Metoclopramide HCl 10 mg 11/10/20 15:09 11/10/20 16:07 Metoclopramide 10 Mg/2 Ml Sdv IVPUSH 11/10/20 15:10 10 mg ONETIME ONE Administration Thiamine HCl 100 mg 11/10/20 16:22 11/10/20 18:02 Thiamine 200 Mg/2 Ml Mdv IVPUSH 11/10/20 16:23 100 mg ONETIME ONE Administration Re-Assessment/Re-Exam: 64-year-old female presents once again to the emergency room intoxicated by alcohol. Patient is a chronic alcoholic drinking large quantities usually of vodka 500-750 mils per day. She drinks usually till she passes out or blacks out. Today she states she went to the liquor store and purchased some form of liquor shot and drank 11 of them in a row to get drunk quicker. Is unclear who called the ambulance but she was brought to the emergency room per ambulance mild to moderately intoxicated by alcohol. There is no outward signs of trauma on examination. Tenderness right upper quadrant of the abdomen compatible with hepatitis from alcohol use. She has known to have early stages of cirrhosis of the liver. Plan she has a sinus tachycardia 128/min. She cannot tell me when her last meal was. Initial IV will be D5 LR at open. Usually she is hypokalemic. She was given Reglan 7.5 mg with Benadryl 25 mg to prevent interaction with her antidepressants i.e. dystonic reaction. She will also be given Ativan 1 mg IV and thiamine 100 mg IV. Routine labs to be collected. Re-Assessment/Re-Exam Date: 11/10/20 (16;38: Differential showsWhite count is normal at 7.77. The auto differential shows 66% neutrophils. Hemoglobin is 15.7 with hematocrit of 49.4. MCV is 90.8. Platelet count is normal at 303,000) Re-Assessment/Re-Exam Time: 17:16 (PT is 10.5 with an INR of 0.94 and a PTT of 25.6. Sodium is 142 with a potassium of 3.6. Chloride 103 with a bicarb of 27. Anion gap is 15.6. BUN is 6 with a creatinine of 0.6 and a GFR greater than 60. Glucose is 85. Calcium is low at 8.0. Magnesium is 1.9. Total bilirubin 0.4 AST elevated at 50 ALT normal at 38 alkaline phosphatase normal at 108. C- reactive protein is less than 0.2 total protein is 7.5 with an albumin fraction of 4.1. Lipase is 162 blood alcohol level is 0.43 g%) Medical Clearance: 11/10/20 18:53 patient will stay in the emergency room until she is able to walk and talk and is relatively sober before being discharged to home. As soon as she alexa up she almost always wants to leave the department. Care will be transferred to Dr. Browning at change of shift. 11/11/20 07:01 Patient remains in the emergency room having slept all night long. Vital signs of remained stable. She will be discharged to home shortly once a taxi is available to provide transport her home. Departure - Departure Time of Disposition: 09:24 Disposition: Home, Self-Care 01 Condition: Good Clinical Impression: Acute alcohol intoxication Qualifiers: Complication of substance-induced condition: with delirium Qualified Code(s): F10.921 - Alcohol use, unspecified with intoxication delirium - Discharge Information *PRESCRIPTION DRUG MONITORING PROGRAM REVIEWED*: Not Applicable *COPY OF PRESCRIPTION DRUG MONITORING REPORT IN PATIENT ANTHONY: Not Applicable Instructions: Alcohol Use Disorder, Alcohol Intoxication, [id number] Referrals: Renard Verduzco MD [Primary Care Provider] - Forms: ED Department Discharge Sepsis Event Note (ED) - Evaluation Sepsis Screening Result: No Definite Risk - My Orders Last 24 Hours: My Active Orders 11/10/20 15:15 Dextrose 5%-Lactated Ringers 1,000 ml IV ASDIRECTED - Assessment/Plan Last 24 Hours: My Active Orders 11/10/20 15:15 Dextrose 5%-Lactated Ringers 1,000 ml IV ASDIRECTED
[2020-11-10] MEDS ORDERED: Dextrose 5%-Lactated Ringers 1,000 ML IV SCH (15:15)
[2020-11-10] MEDS ORDERED: LORazepam 2 MG/ML SDV IVPUSH ONE (16:22)
[2020-11-10] MEDS ORDERED: Thiamine 200 MG/2 ML MDV IVPUSH ONE (16:22)
[2020-11-10] MEDS ORDERED: Aluminum Hydroxide/Magnesium Hydroxide/Simethicone Susp 30 ML Cup ONE ×2 (19:40→23:25)
[2020-11-10] MEDS ORDERED: Aluminum Hydroxide/Magnesium Hydroxide/Simethicone Susp 30 ML Cup PO ONE (20:21)
[2020-11-10] MEDS ORDERED: LORazepam 1 MG Tab PO ONE (22:41)
[2020-11-11] MEDS ORDERED: Aluminum Hydroxide/Magnesium Hydroxide/Simethicone Susp 30 ML Cup PO ONE (00:03)
== END 2020-11-11 09:15 | disposition home or self-care (01) ==
LOC: JD.ED 14:31
DX: F10.129 Alcohol abuse with intoxication, unspecified (principal); E78.00 Pure hypercholesterolemia, unspecified; I10 Essential (primary) hypertension; K21.9 Gastro-esophageal reflux disease without esophagitis; Z88.1 Allergy status to other antibiotic agents; Z88.8 Allergy status to other drugs, medicaments and biological substances; Z79.899 Other long term (current) drug therapy; Y90.5 Blood alcohol level of 100-119 mg/100 ml
CPT/HCPCS: 36415; 80053; 80307; 83690; 83735; 85025; 85610; 85730; 86140; 93005; 96374; 96375; 99284; A9270; J1200; J2060; J2765; J3411; J7121; 93010

== ENCOUNTER 2020-11-25 06:53 | Emergency (ER) | payer BC ==
[2020-11-25 06:58] VITALS: BP 145/78; PULSE 110
--- NOTE | 2020-11-25 08:10 | EDM.PDOCBH ---
ED HPI GENERAL MEDICAL PROBLEM - General Chief Complaint: Drug or Alcohol Abuse Stated Complaint: [facility] Time Seen by Provider: 11/25/20 07:20 Source of Information: Reports: Patient History Limitations: Reports: No Limitations - History of Present Illness INITIAL COMMENTS - FREE TEXT/NARRATIVE: Patient is a 64-year-old female with a past medical history of chronic alcohol abuse. Patient presents today with a request for detox. Patient states she has been in detox numerous times over the course of her life. She has been an alcoholic since 47 years old. Patient states she has been on a binge for the past 5 days. Last drink was 2130 last night. Patient states she drinks approximately 10 shots of vodka per day. She states she has not eaten or drank anything for several days. This is because she has been drinking heavily and been intoxicated. Nothing seems to make her symptoms better or worse. Patient otherwise states she feels well. She states she feels minimally nauseous but does want something to drink. She denies any headache, cloudiness, chest pain, abdominal pain, paresthesias, falls, confusion. - Related Data Allergies Allergy/AdvReac Type Severity Reaction Status Date / Time levofloxacin [From Levaquin] Allergy Intermediate Rash Verified 11/25/20 06:58 propoxyphene napsylate AdvReac Mild Headache Verified 11/25/20 06:58 [From Darvocet-N] Home Meds: Home Meds Fluticasone Propion/Salmeterol [Advair 250-50 Diskus] 1 puff IH BID 05/24/16 [History] atorvaSTATin [Lipitor] 20 mg PO DAILY 05/24/16 [History] Albuterol Sulfate [Albuterol Sulfate Hfa] 2 puff PO Q4HR PRN 12/22/18 [History] Sucralfate [Carafate] 1 gm PO QID 12/22/18 [History] Folic Acid 1 mg PO DAILY #30 tablet 12/23/18 [Rx] Thiamine [Vitamin B-1] 100 mg PO BEDTIME #30 tab 12/23/18 [Rx] Cranberry Fruit Extract [Cranberry] 500 mg PO DAILY 04/01/19 [History] Lutein/Minerals/Vit A,C & E [Ocuvite] 1 tab PO DAILY 04/01/19 [History] Montelukast [Singulair] 10 mg PO BEDTIME 04/01/19 [History] DULoxetine [Cymbalta] 30 mg PO DAILY 04/14/20 [History] Losartan [Cozaar] 12.5 mg PO DAILY 04/14/20 [History] Mirtazapine 15 mg PO BEDTIME 04/14/20 [History] OLANZapine [Olanzapine] 10 mg PO BEDTIME 04/14/20 [History] atenoloL [Atenolol] 25 mg PO DAILY 04/14/20 [History] lamoTRIgine [Lamotrigine] 100 mg PO DAILY 04/14/20 [History] Ferrous Sulfate [Iron] 325 mg PO BID 06/16/20 [History] Pantoprazole [ProTONIX] 40 mg PO BIDAC 06/16/20 [History] Topiramate 25 mg PO BEDTIME 06/16/20 [History] Magnesium Oxide 400 mg PO BID #30 tablet 06/17/20 [Rx] Saccharomyces Boulardii [Florastor] 500 mg PO BID #20 cap 06/17/20 [Rx] LORazepam [Ativan] 1 mg PO TID #18 tablet 07/14/20 [Rx] Past Medical History HEENT History: Reports: Impaired Vision Other HEENT History: wears glasses Cardiovascular History: Reports: None, High Cholesterol, Hypertension Respiratory History: Reports: Asthma Gastrointestinal History: Reports: Chronic Diarrhea, GERD, Irritable Bowel Syndrome Genitourinary History: Reports: Urinary Incontinence, UTI, Recurrent 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: Other (See Below) Other FUEL TRUCK DRIVER History: Patient states she started menopause at 54 yoa Musculoskeletal History: Reports: Arthritis, Other (See Below) Other Musculoskeletal History: knee/shoulder pain Neurological History: Reports: Headaches, Chronic Other Neuro History: headaches Psychiatric History: Reports: Addiction, Anxiety, Bipolar, Depression, Eating Disorders Other Psychiatric History: eating disorder at age 14 Endocrine/Metabolic History: Reports: Osteoporosis Hematologic History: Reports: None Immunologic History: Reports: Other (See Below) Other Immunologic History: recurrent staph infections Oncologic (Cancer) History: Reports: None - Infectious Disease History Infectious Disease History: Reports: Chicken Pox, Measles - Past Surgical History Head Surgeries/Procedures: Reports: None HEENT Surgical History: Reports: Adenoidectomy, Oral Surgery, Tonsillectomy, Other (See Below) Other HEENT Surgeries/Procedures: facial surgery to fractures on right side of face from fall. Cardiovascular Surgical History: Reports: None Respiratory Surgical History: Reports: None Other Respiratory Surgeries/Procedures: per ER report GI Surgical History: Reports: Appendectomy Other GI Surgeries/Procedures: GI bleed Female Surgical History: Reports: None Other Female Surgeries/Procedures: Patient states she had her ureters dilated in [facility] Musculoskeletal Surgical History: Reports: ORIF, Shoulder Surgery, Other (See Below) Other Musculoskeletal Surgeries/Procedures:: wrist ORIF Social & Family History - Family History Family Medical History: No Pertinent Family History Cardiac: Reports: None Psychiatric: Reports: Other (See Below) Other Psychiatric Family History: 2 uncles ETOH abuse - Tobacco Use Tobacco Use Status *Q: Never Tobacco User - Caffeine Use Caffeine Use: Reports: None Other Caffeine Use: Unknown if ever used due to being currently intoxicated. 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 ROS GENERAL - Review of Systems Review Of Systems: See Below Free Text/Narrative/Comment: In addition to that documented in the HPI above, the additional ROS was obtained: Constitutional: Denies fevers or chills Eyes: Denies vision changes ENMT: Denies sore throat CV: Denies chest pain Resp: Denies SOB GI: Denies vomiting or diarrhea : Denies painful urination MSK: Denies recent trauma Skin: Denies new rashes Neuro: Denies new numbness or tingling or weakness Endocrine: Denies unexpected weight loss Heme: Denies bleeding disorders ED EXAM, BEHAVIORAL HEALTH - Physical Exam Exam: See Below Comments: I have reviewed the triage vital signs Const: Well nourished, well developed, appears stated age Eyes: Pupils Equal and reactive to light bilaterally, no conjunctival injection HENT: No signs of trauma or swelling, Neck supple without meningismus CV: Regular Rate Rhythm, Warm, well-perfused extremities RESP: Unlabored respiratory effort GI: soft, non-tender, non-distended, no masses MSK: No gross deformities appreciated Skin: Warm, dry. No rashes Neuro: Demonstrates mild tremors with arms extended but not when patient is at rest. 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 Sensation and motor function of extremities grossly intact. Patient is alert and oriented x3 Psych: Appropriate mood and affect. COURSE, BEHAVIORAL HEALTH COMP - Course Vital Signs: Last Vital Signs Temp 36.6 C 11/25/20 06:56 Pulse 110 H 11/25/20 06:56 Resp 18 11/25/20 06:56 BP 145/78 H 11/25/20 06:56 Pulse Ox 100 11/25/20 06:56 Orders, Labs, Meds: Active Orders 24 hr Category Date Time Status Blood Glucose Check, Bedside [RC] ONETIME Care 11/25/20 07:30 Active Laboratory Tests 11/25/20 11/25/20 11/25/20 Range/Units 07:10 08:17 08:26 WBC Corrected WBC RBC Hgb Hct MCV MCH MCHC RDW Std Deviation Plt Count MPV Neut % (Auto) Lymph % (Auto) [place] % (Auto) Eos % (Auto) Baso % (Auto) Neut # (Auto) Lymph # (Auto) [place] # (Auto) Eos # (Auto) Baso # (Auto) Manual Slide Review VBG pH (7.30-7.40) VBG pCO2 (41-51) mmHg VBG pO2 (40-80) mmHG VBG HCO3 (22-26) meq/L VBG O2 Saturation VBG Base Excess (-4.0-2.0) O2 Delivery Device Sodium (136-145) mEq/L Potassium (3.5-5.1) mEq/L Chloride (98-107) mEq/L Carbon Dioxide (21-32) mEq/L Anion Gap (5-15) BUN (7-18) mg/dL Creatinine (0.55-1.02) mg/dL Est Cr Clr Drug Dosing Estimated GFR (MDRD) (>60) mL/min BUN/Creatinine Ratio (14-18) Glucose (70-99) mg/dL POC Glucose 76 (70-99) mg/dL Calcium (8.5-10.1) mg/dL Total Bilirubin (0.2-1.0) mg/dL AST (15-37) U/L ALT (14-59) U/L Alkaline Phosphatase (46-116) U/L Total Protein (6.4-8.2) g/dl Albumin (3.4-5.0) g/dl Globulin gm/dL Albumin/Globulin Ratio (1-2) Ketones 0.54 (0.0-0.3) mM SARS-CoV-2 RNA (DODIE) Negative (NEGATIVE) 11/25/20 11/25/20 11/25/20 Range/Units 08:26 08:26 10:22 WBC Cancelled 8.62 Corrected WBC Cancelled RBC Cancelled 3.57 L Hgb Cancelled 10.6 L D Hct Cancelled 33.3 L MCV Cancelled 93.3 MCH Cancelled 29.7 MCHC Cancelled 31.8 L RDW Std Deviation Cancelled 59.7 H Plt Count Cancelled 140 L D MPV Cancelled 9.1 L Neut % (Auto) Cancelled 86.0 H Lymph % (Auto) Cancelled 8.1 L [place] % (Auto) Cancelled 5.5 Eos % (Auto) Cancelled 0 L Baso % (Auto) Cancelled 0.3 Neut # (Auto) Cancelled 7.41 H Lymph # (Auto) Cancelled 0.70 L [place] # (Auto) Cancelled 0.47 H Eos # (Auto) Cancelled 0.00 L Baso # (Auto) Cancelled 0.03 Manual Slide Review Cancelled VBG pH (7.30-7.40) VBG pCO2 (41-51) mmHg VBG pO2 (40-80) mmHG VBG HCO3 (22-26) meq/L VBG O2 Saturation VBG Base Excess (-4.0-2.0) O2 Delivery Device Sodium 141 (136-145) mEq/L Potassium 3.5 (3.5-5.1) mEq/L Chloride 101 (98-107) mEq/L Carbon Dioxide 25 (21-32) mEq/L Anion Gap 18.5 H (5-15) BUN 11 (7-18) mg/dL Creatinine 0.5 L (0.55-1.02) mg/dL Est Cr Clr Drug Dosing TNP Estimated GFR (MDRD) > 60 (>60) mL/min BUN/Creatinine Ratio 22.0 H (14-18) Glucose 75 (70-99) mg/dL POC Glucose (70-99) mg/dL Calcium 8.1 L (8.5-10.1) mg/dL Total Bilirubin 0.6 (0.2-1.0) mg/dL AST 89 H (15-37) U/L ALT 51 (14-59) U/L Alkaline Phosphatase 98 (46-116) U/L Total Protein 5.6 L (6.4-8.2) g/dl Albumin 3.0 L (3.4-5.0) g/dl Globulin 2.6 gm/dL Albumin/Globulin Ratio 1.2 (1-2) Ketones (0.0-0.3) mM SARS-CoV-2 RNA (DODIE) (NEGATIVE) 11/25/20 Range/Units 11:25 WBC Corrected WBC RBC Hgb Hct MCV MCH MCHC RDW Std Deviation Plt Count MPV Neut % (Auto) Lymph % (Auto) [place] % (Auto) Eos % (Auto) Baso % (Auto) Neut # (Auto) Lymph # (Auto) [place] # (Auto) Eos # (Auto) Baso # (Auto) Manual Slide Review VBG pH 7.51 H (7.30-7.40) VBG pCO2 26.8 L (41-51) mmHg VBG pO2 85.0 H (40-80) mmHG VBG HCO3 21.4 L (22-26) meq/L VBG O2 Saturation 97.2 VBG Base Excess -0.5 (-4.0-2.0) O2 Delivery Device Room air Sodium (136-145) mEq/L Potassium (3.5-5.1) mEq/L Chloride (98-107) mEq/L Carbon Dioxide (21-32) mEq/L Anion Gap (5-15) BUN (7-18) mg/dL Creatinine (0.55-1.02) mg/dL Est Cr Clr Drug Dosing Estimated GFR (MDRD) (>60) mL/min BUN/Creatinine Ratio (14-18) Glucose (70-99) mg/dL POC Glucose (70-99) mg/dL Calcium (8.5-10.1) mg/dL Total Bilirubin (0.2-1.0) mg/dL AST (15-37) U/L ALT (14-59) U/L Alkaline Phosphatase (46-116) U/L Total Protein (6.4-8.2) g/dl Albumin (3.4-5.0) g/dl Globulin gm/dL Albumin/Globulin Ratio (1-2) Ketones (0.0-0.3) mM SARS-CoV-2 RNA (DODIE) (NEGATIVE) Medications Discontinued Medications Generic Name Dose Route Start Last Admin Trade Name Freq PRN Reason Stop Dose Admin Calcium Carbonate/Glycine 1,000 mg 11/25/20 11:19 11/25/20 11:27 Calcium Carbonate 500 Mg Tab.Chew PO 11/25/20 11:20 1,000 mg ONETIME ONE Administration Lorazepam 1 mg 11/25/20 10:10 11/25/20 10:18 Lorazepam 1 Mg Tab PO 11/25/20 10:11 1 mg ONETIME ONE Administration Departure - Departure Time of Disposition: 12:20 Disposition: DC/Tfer to Inpt Rehab Fac 62 Clinical Impression: Alcohol abuse - Discharge Information Forms: ED Department Discharge Sepsis Event Note (ED) - Focused Exam Vital Signs: Vital Signs Temp Pulse Resp BP Pulse Ox 11/25/20 06:56 36.6 C 110 H 18 145/78 H 100 - My Orders Last 24 Hours: My Active Orders 11/25/20 07:30 Blood Glucose Check, Bedside [RC] ONETIME - Assessment/Plan Last 24 Hours: My Active Orders 11/25/20 07:30 Blood Glucose Check, Bedside [RC] ONETIME Assessment:: Patient 64-year-old female presented to the emergency room with chief complaint of alcohol dependency. On arrival, patient mildly tachycardic and hypertensive but otherwise normal vital signs patient was afebrile. No evidence of infectious process. On her exam, CIWA less than eight. Patient has no other complaints at this time and did receive 1 mg of p.o. Ativan. Laboratory studies reviewed consistent with chronic alcoholism picture. No significant electrolyte abnormality. Patient will be accepted to [facility] by Dr. Arango for inpatient detox.
[2020-11-25] MEDS ORDERED: LORazepam 1 MG Tab PO ONE (10:10)
[2020-11-25] MEDS ORDERED: Calcium Carbonate 500 MG Tab.Chew PO ONE (11:19)
== END 2020-11-25 13:43 ==
LOC: JD.ED 06:53
DX: F10.10 Alcohol abuse, uncomplicated (principal); E78.00 Pure hypercholesterolemia, unspecified; I10 Essential (primary) hypertension; J45.909 Unspecified asthma, uncomplicated; K21.9 Gastro-esophageal reflux disease without esophagitis; M19.90 Unspecified osteoarthritis, unspecified site; Z88.1 Allergy status to other antibiotic agents; Z88.6 Allergy status to analgesic agent; Z79.899 Other long term (current) drug therapy; Z20.822 Contact with and (suspected) exposure to COVID-19
CPT/HCPCS: 36415; 80053; 82009; 82803; 82947; 85025; 87635; 99285; A9270; U0002

== ENCOUNTER 2020-12-26 12:40 | Emergency (ER) | payer BC ==
[2020-12-26] MEDS ORDERED: Sodium Chloride 0.9% 10 ML Syringe FLUSH PRN (13:11)
[2020-12-26] MEDS ORDERED: Sodium Chloride 0.9% 1,000 ML IV SCH (13:15)
--- NOTE | 2020-12-26 14:40 | EDM.PDOC ---
<Jessica,Clyde L - Last Filed: 12/26/20 18:32> ED HPI GENERAL MEDICAL PROBLEM - General Chief Complaint: Drug or Alcohol Abuse Stated Complaint: [facility] Time Seen by Provider: 12/26/20 13:10 Source of Information: Reports: Patient, RN Notes Reviewed - History of Present Illness INITIAL COMMENTS - FREE TEXT/NARRATIVE: 65 yr old female has been brought in by EMS intoxicated. She is reported to have just been released from treatment for chronic alcohol abuse and dependency "3 days ago". Not sure where that was or for how long. Pt extremely intoxicated on arrival to ED. Unable to give a meaningful hx. She does deny chest or abd pain, denies recent vomiting. - Related Data Allergies Allergy/AdvReac Type Severity Reaction Status Date / Time levofloxacin [From Levaquin] Allergy Intermediate Rash Verified 11/25/20 06:58 propoxyphene napsylate AdvReac Mild Headache Verified 11/25/20 06:58 [From Darvocet-N] Home Meds: Home Meds Fluticasone Propion/Salmeterol [Advair 250-50 Diskus] 1 puff IH BID 05/24/16 [History] atorvaSTATin [Lipitor] 20 mg PO DAILY 05/24/16 [History] Albuterol Sulfate [Albuterol Sulfate Hfa] 2 puff PO Q4HR PRN 12/22/18 [History] Sucralfate [Carafate] 1 gm PO QID 12/22/18 [History] Folic Acid 1 mg PO DAILY #30 tablet 12/23/18 [Rx] Thiamine [Vitamin B-1] 100 mg PO BEDTIME #30 tab 12/23/18 [Rx] Cranberry Fruit Extract [Cranberry] 500 mg PO DAILY 04/01/19 [History] Lutein/Minerals/Vit A,C & E [Ocuvite] 1 tab PO DAILY 04/01/19 [History] Montelukast [Singulair] 10 mg PO BEDTIME 04/01/19 [History] DULoxetine [Cymbalta] 30 mg PO DAILY 04/14/20 [History] Losartan [Cozaar] 12.5 mg PO DAILY 04/14/20 [History] Mirtazapine 15 mg PO BEDTIME 04/14/20 [History] OLANZapine [Olanzapine] 10 mg PO BEDTIME 04/14/20 [History] atenoloL [Atenolol] 25 mg PO DAILY 04/14/20 [History] lamoTRIgine [Lamotrigine] 100 mg PO DAILY 04/14/20 [History] Ferrous Sulfate [Iron] 325 mg PO BID 06/16/20 [History] Pantoprazole [ProTONIX] 40 mg PO BIDAC 06/16/20 [History] Topiramate 25 mg PO BEDTIME 06/16/20 [History] Magnesium Oxide 400 mg PO BID #30 tablet 06/17/20 [Rx] Saccharomyces Boulardii [Florastor] 500 mg PO BID #20 cap 06/17/20 [Rx] LORazepam [Ativan] 1 mg PO TID #18 tablet 07/14/20 [Rx] Past Medical History HEENT History: Reports: Impaired Vision Other HEENT History: wears glasses Cardiovascular History: Reports: None, High Cholesterol, Hypertension Respiratory History: Reports: Asthma Gastrointestinal History: Reports: Chronic Diarrhea, GERD, Irritable Bowel Syndrome Genitourinary History: Reports: Urinary Incontinence, UTI, Recurrent 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: Other (See Below) 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 REGISTERED DENTAL ASSISTANT History: Patient states she started menopause at 54 yoa Musculoskeletal History: Reports: Arthritis, Other (See Below) Other Musculoskeletal History: knee/shoulder pain Neurological History: Reports: Headaches, Chronic Other Neuro History: headaches Psychiatric History: Reports: Addiction, Anxiety, Bipolar, Depression, Eating Disorders Other Psychiatric History: eating disorder at age 14 Endocrine/Metabolic History: Reports: Osteoporosis Hematologic History: Reports: None Immunologic History: Reports: Other (See Below) Other Immunologic History: recurrent staph infections Oncologic (Cancer) History: Reports: None - Infectious Disease History Infectious Disease History: Reports: Chicken Pox, Measles - Past Surgical History Head Surgeries/Procedures: Reports: None HEENT Surgical History: Reports: Adenoidectomy, Oral Surgery, Tonsillectomy, Other (See Below) Other HEENT Surgeries/Procedures: facial surgery to fractures on right side of face from fall. Cardiovascular Surgical History: Reports: None Respiratory Surgical History: Reports: None Other Respiratory Surgeries/Procedures: per ER report GI Surgical History: Reports: Appendectomy Other GI Surgeries/Procedures: GI bleed Female Surgical History: Reports: None Other Female Surgeries/Procedures: Patient states she had her ureters dilated in [facility] Musculoskeletal Surgical History: Reports: ORIF, Shoulder Surgery, Other (See Below) Other Musculoskeletal Surgeries/Procedures:: wrist ORIF Social & Family History - Family History Family Medical History: No Pertinent Family History Cardiac: Reports: None Psychiatric: Reports: Other (See Below) Other Psychiatric Family History: 2 uncles ETOH abuse - Tobacco Use Tobacco Use Status *Q: Current Every Day Tobacco User Years of Tobacco use: 50 Packs/Tins Daily: 1 - Caffeine Use Caffeine Use: Reports: None Other Caffeine Use: Unknown if ever used due to being currently intoxicated. 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 Opens eyes, makes eye contact, answers very simple questions) Eye Exam: Bilateral Eye: PERRL Throat/Mouth: Normal Inspection Head: Atraumatic Neck: Supple Respiratory/Chest: No Respiratory Distress, Lungs Clear, Normal Breath Sounds Cardiovascular: Regular Rate, Rhythm GI/Abdominal: Non-Tender Extremities: Normal Inspection. No: Pedal Edema, Leg Pain Neurological: Other (awake, very intoxicated, does answer very simple questions with 2 or 3 word answers at best) Course - Re-Assessments/Exams Free Text/Narrative Re-Assessment/Exam: 12/26/20 15:44. Etoh 0.41. sleeping. Infusing 1 liter NS, will go to D5 at 150/hr after that. 12/26/20 18:56. approaching change of shift. Still sleeping. Will transfer care to Dr Bryant. Departure - Departure Disposition: Home, Self-Care 01 Clinical Impression: Alcohol dependence, daily use, Dehydration Alcohol intoxication Qualifiers: Complication of substance-induced condition: uncomplicated Qualified Code(s): F10.920 - Alcohol use, unspecified with intoxication, uncomplicated - Discharge Information Instructions: Alcohol Intoxication Referrals: Renard Verduzco MD [Physician] - Forms: ED Department Discharge Additional Instructions: You were brought to the emergency room by paramedics for alcohol intoxication. Work-up in the ER included several blood tests, which demonstrated mild dehydration and 0.41. For reference, that is over 5 times upper legal limit for driving. You were treated with IV fluid in the ER. We recommend that you follow-up at [facility] to get professional help with your drinkin [address] [phone] Please follow-up with your PCP, Dr. Renard Verduzco, at your previously scheduled appointment. If any other problems, please do not hesitate to return to the ER. Sepsis Event Note (ED) - Evaluation Sepsis Screening Result: No Definite Risk <Hudson Bryant - Last Filed: 12/26/20 23:40> Course - Vital Signs Last Recorded V/S: Last Vital Signs Temp 36.4 C 12/26/20 13:00 Pulse 94 12/26/20 18:57 Resp 16 12/26/20 18:57 BP 105/64 12/26/20 18:57 Pulse Ox 100 12/26/20 18:57 - Orders/Labs/Meds Orders: Active Orders 24 hr Category Date Time Status Peripheral IV Care [RC] . DIRECTED Care 12/26/20 13:12 Active Dextrose 5%-Lactated Ringers 1,000 ml Med 12/26/20 16:30 Active IV ASDIRECTED Sodium Chloride 0.9% [Normal Saline] 1,000 ml Med 12/26/20 13:15 Active IV ONETIME Sodium Chloride 0.9% [Saline Flush] Med 12/26/20 13:11 Active 10 ml FLUSH ASDIRECTED PRN Peripheral IV Insertion Adult [OM.PC] Stat Oth 12/26/20 13:11 Ordered Medication Orders Sodium Chloride (Normal Saline) 1,000 mls @ 999 mls/hr IV ONETIME STEPHANE Last Admin: 12/26/20 14:25 Dose: 999 mls/hr Documented by: ASAF Dextrose/Lactated Ringer's (Dextrose 5%-Lactated Ringers) 1,000 mls @ 150 mls/hr IV ASDIRECTED STEPHANE Last Admin: 12/26/20 17:20 Dose: 150 mls/hr Documented by: ASAF Sodium Chloride (Sodium Chloride 0.9% 10 Ml Syringe) 10 ml FLUSH ASDIRECTED PRN PRN Reason: Keep Vein Open Last Admin: 12/26/20 14:25 Dose: 10 ml Documented by: ASAF Labs: Laboratory Tests 12/26/20 12/26/20 Range/Units 13:40 14:09 WBC 7.57 (3.98-10.04) K/mm3 RBC 5.11 (3.98-5.22) M/mm3 Hgb 15.5 D (11.2-15.7) gm/dl Hct 49.2 H (34.1-44.9) % MCV 96.3 H D (79.4-94.8) fl MCH 30.3 (25.6-32.2) pg MCHC 31.5 L (32.2-35.5) g/dl RDW Std Deviation 52.2 H (36.4-46.3) fL Plt Count 231 D (182-369) K/mm3 MPV 10.3 (9.4-12.3) fl Neut % (Auto) 67.2 (34.0-71.1) % Lymph % (Auto) 25.4 (19.3-51.7) % [place] % (Auto) 4.6 L (4.7-12.5) % Eos % (Auto) 2.1 (0.7-5.8) Baso % (Auto) 0.3 (0.1-1.2) % Neut # (Auto) 5.09 (1.56-6.13) K/mm3 Lymph # (Auto) 1.92 (1.18-3.74) K/mm3 [place] # (Auto) 0.35 (0.24-0.36) K/mm3 Eos # (Auto) 0.16 (0.04-0.36) K/mm3 Baso # (Auto) 0.02 (0.01-0.08) K/mm3 Manual Slide Review Normal smear Sodium 147 H (136-145) mEq/L Potassium 4.5 (3.5-5.1) mEq/L Chloride 110 H (98-107) mEq/L Carbon Dioxide 26 (21-32) mEq/L Anion Gap 15.5 H (5-15) BUN 15 (7-18) mg/dL Creatinine 0.6 (0.55-1.02) mg/dL Est Cr Clr Drug Dosing 79.39 mL/min Estimated GFR (MDRD) > 60 (>60) mL/min BUN/Creatinine Ratio 25.0 H (14-18) Glucose 91 (70-99) mg/dL Calcium 7.7 L (8.5-10.1) mg/dL Total Bilirubin 0.4 (0.2-1.0) mg/dL AST 28 (15-37) U/L ALT 33 (14-59) U/L Alkaline Phosphatase 60 (46-116) U/L Total Protein 6.8 (6.4-8.2) g/dl Albumin 3.8 (3.4-5.0) g/dl Globulin 3.0 gm/dL Albumin/Globulin Ratio 1.3 (1-2) Ethyl Alcohol 0.41 (0.00) gm% Meds: Medications Generic Name Dose Route Start Last Admin Trade Name Abelardo PRN Reason Stop Dose Admin Sodium Chloride 1,000 mls @ 999 mls/hr 12/26/20 13:15 12/26/20 14:25 Normal Saline IV 999 mls/hr ONETIME STEPHANE Administration Dextrose/Lactated Ringer's 1,000 mls @ 150 mls/hr 12/26/20 16:30 12/26/20 17:20 Dextrose 5%-Lactated Ringers IV 150 mls/hr ASDIRECTED STEPHANE Administration Sodium Chloride 10 ml 12/26/20 13:11 12/26/20 14:25 Sodium Chloride 0.9% 10 Ml Syringe FLUSH 10 ml ASDIRECTED PRN Administration Keep Vein Open - Re-Assessments/Exams Free Text/Narrative Re-Assessment/Exam: 12/26/20 22:34 The patient is now awake and alert. She has had several glasses of water to drink and been to the bathroom. She states that she feels well enough to go home, but requested that we don't discharge her for another hour. She states that she already has an appointment to follow-up with Dr. Verduzco. 12/26/20 23:40 Notified by Lucy RAMOS that the patient's residence is locked, that the patient does not have a duncan, and that the forestry aid technician is out of town until the morning. She will need to in the night here in the ED. Departure - Departure Time of Disposition: 23:28 Condition: Good - Discharge Information *PRESCRIPTION DRUG MONITORING PROGRAM REVIEWED*: Not Applicable *COPY OF PRESCRIPTION DRUG MONITORING REPORT IN PATIENT ANTHONY: Not Applicable Sepsis Event Note (ED) - Focused Exam Vital Signs: Vital Signs Temp Pulse Resp BP Pulse Ox 12/26/20 18:57 94 16 105/64 100 12/26/20 17:00 97 16 107/54 L 94 L 12/26/20 15:30 63 16 107/63 98 12/26/20 14:27 88 16 124/67 100 12/26/20 13:00 36.4 C 90 16 143/84 H 91 L
[2020-12-26] MEDS ORDERED: Dextrose 5%-Lactated Ringers 1,000 ML IV SCH (16:30)
[2020-12-26 18:58] VITALS: BP 105/64; PULSE 94
[2020-12-27] MEDS ORDERED: LORazepam 1 MG Tab PO ONE (09:23)
[2020-12-27] MEDS ORDERED: Ondansetron 4 MG Tab.DIS ONE (09:56)
[2020-12-27] MEDS ORDERED: Ondansetron 4 MG Tab.DIS PO ONE (09:57)
== END 2020-12-27 12:37 | disposition home or self-care (01) ==
LOC: JD.ED 12:40
DX: F10.229 Alcohol dependence with intoxication, unspecified (principal); E86.0 Dehydration; I10 Essential (primary) hypertension; E78.00 Pure hypercholesterolemia, unspecified; K21.9 Gastro-esophageal reflux disease without esophagitis; Z79.899 Other long term (current) drug therapy; Z72.0 Tobacco use; Z88.1 Allergy status to other antibiotic agents; Z88.8 Allergy status to other drugs, medicaments and biological substances; Y90.0 Blood alcohol level of less than 20 mg/100 ml
CPT/HCPCS: 36415; 80053; 80307; 85025; 99284; A9270; J7030; J7121

== ENCOUNTER 2021-01-01 13:46 | Emergency (ER) | payer BC ==
[2021-01-01 13:54] VITALS: BP 167/106
[2021-01-01] MEDS ORDERED: Metoclopramide 10 MG/2 ML SDV IVPUSH ONE (13:59)
[2021-01-01] MEDS ORDERED: Sodium Chloride 0.9% 10 ML Syringe FLUSH PRN (13:59)
[2021-01-01] MEDS ORDERED: Sodium Chloride 0.9% 1,000 ML IV ONE ×2 (13:59→16:16)
--- NOTE | 2021-01-01 14:01 | EDM.PDOC ---
ED HPI GENERAL MEDICAL PROBLEM - General Chief Complaint: Drug or Alcohol Abuse Stated Complaint: [facility] Time Seen by Provider: 01/01/21 13:52 Source of Information: Reports: Patient, Old Records, RN Notes Reviewed History Limitations: Reports: Intoxication - History of Present Illness INITIAL COMMENTS - FREE TEXT/NARRATIVE: Patient is a 65-year-old female who was brought in by [facility] because she was found on the floor of her apartment. Patient is well- known to this ER for drinking to excess, and then passing out. Patient did respond to ambulance staff and police when they checked on her. She was placed on oxygen in the ambulance due to her oxygen saturations being slightly low. She is now on 2 L, and satting at 95%. When I try to talk with the patient, she states all he wanted to asleep. She will not really tell me how much she has been drinking, but she did tell triage nurse that she had 5 shooters today. Not complaining of any sort of nausea/vomiting/diarrhea, or any fever/chills or shortness of breath. No major abnormalities were identified on initial exam. - Related Data Allergies Allergy/AdvReac Type Severity Reaction Status Date / Time levofloxacin [From Levaquin] Allergy Intermediate Rash Verified 11/25/20 06:58 propoxyphene napsylate AdvReac Mild Headache Verified 11/25/20 06:58 [From Darvocet-N] Home Meds: Home Meds Fluticasone Propion/Salmeterol [Advair 250-50 Diskus] 1 puff IH BID 05/24/16 [History] atorvaSTATin [Lipitor] 20 mg PO DAILY 05/24/16 [History] Albuterol Sulfate [Albuterol Sulfate Hfa] 2 puff PO Q4HR PRN 12/22/18 [History] Sucralfate [Carafate] 1 gm PO QID 12/22/18 [History] Folic Acid 1 mg PO DAILY #30 tablet 12/23/18 [Rx] Thiamine [Vitamin B-1] 100 mg PO BEDTIME #30 tab 12/23/18 [Rx] Cranberry Fruit Extract [Cranberry] 500 mg PO DAILY 04/01/19 [History] Lutein/Minerals/Vit A,C & E [Ocuvite] 1 tab PO DAILY 04/01/19 [History] Montelukast [Singulair] 10 mg PO BEDTIME 04/01/19 [History] DULoxetine [Cymbalta] 30 mg PO DAILY 04/14/20 [History] Losartan [Cozaar] 12.5 mg PO DAILY 04/14/20 [History] Mirtazapine 15 mg PO BEDTIME 04/14/20 [History] OLANZapine [Olanzapine] 10 mg PO BEDTIME 04/14/20 [History] atenoloL [Atenolol] 25 mg PO DAILY 04/14/20 [History] lamoTRIgine [Lamotrigine] 100 mg PO DAILY 04/14/20 [History] Ferrous Sulfate [Iron] 325 mg PO BID 06/16/20 [History] Pantoprazole [ProTONIX] 40 mg PO BIDAC 06/16/20 [History] Topiramate 25 mg PO BEDTIME 06/16/20 [History] Magnesium Oxide 400 mg PO BID #30 tablet 06/17/20 [Rx] Saccharomyces Boulardii [Florastor] 500 mg PO BID #20 cap 06/17/20 [Rx] LORazepam [Ativan] 1 mg PO TID #18 tablet 07/14/20 [Rx] Past Medical History HEENT History: Reports: Impaired Vision Other HEENT History: wears glasses Cardiovascular History: Reports: None, High Cholesterol, Hypertension Respiratory History: Reports: Asthma Gastrointestinal History: Reports: Chronic Diarrhea, GERD, Irritable Bowel Syndrome Genitourinary History: Reports: Urinary Incontinence, UTI, Recurrent PARTS FINISHER History: Reports: Other (See Below) Other PARTS FINISHER History: Patient states she started menopause at 54 yoa Musculoskeletal History: Reports: Arthritis, Other (See Below) Other Musculoskeletal History: knee/shoulder pain Neurological History: Reports: Headaches, Chronic Other Neuro History: headaches Psychiatric History: Reports: Addiction, Anxiety, Bipolar, Depression, Eating Disorders Other Psychiatric History: eating disorder at age 14 Endocrine/Metabolic History: Reports: Osteoporosis Hematologic History: Reports: None Immunologic History: Reports: Other (See Below) Other Immunologic History: recurrent staph infections Oncologic (Cancer) History: Reports: None - Infectious Disease History Infectious Disease History: Reports: Chicken Pox, Measles - Past Surgical History Head Surgeries/Procedures: Reports: None HEENT Surgical History: Reports: Adenoidectomy, Oral Surgery, Tonsillectomy, Other (See Below) Other HEENT Surgeries/Procedures: facial surgery to fractures on right side of face from fall. Cardiovascular Surgical History: Reports: None Respiratory Surgical History: Reports: None Other Respiratory Surgeries/Procedures: per ER report GI Surgical History: Reports: Appendectomy Other GI Surgeries/Procedures: GI bleed Female Surgical History: Reports: None Other Female Surgeries/Procedures: Patient states she had her ureters dilated in [facility] Musculoskeletal Surgical History: Reports: ORIF, Shoulder Surgery, Other (See Below) Other Musculoskeletal Surgeries/Procedures:: wrist ORIF Social & Family History - Family History Family Medical History: No Pertinent Family History Cardiac: Reports: None Psychiatric: Reports: Other (See Below) Other Psychiatric Family History: 2 uncles ETOH abuse - Tobacco Use Tobacco Use Status *Q: Never Tobacco User - Caffeine Use Caffeine Use: Reports: None Other Caffeine Use: Unknown if ever used due to being currently intoxicated. 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 ED EXAM, GENERAL - Physical Exam Exam: See Below Exam Limited By: No Limitations General Appearance: Alert (does arouse when I ask questions; but doesn't really answer anything I ask- says all she wants is to sleep), WD/WN, No Apparent Distress Respiratory/Chest: No Respiratory Distress, Lungs Clear, Normal Breath Sounds, No Accessory Muscle Use, Chest Non-Tender Cardiovascular: Normal Peripheral Pulses, Regular Rate, Rhythm, No Edema Peripheral Pulses: 2+: Radial (L), Radial (R) Extremities: Normal Inspection, Normal Capillary Refill Neurological: Alert, Oriented, Normal Cognition, No Motor/Sensory Deficits Psychiatric: Normal Affect, Normal Mood Skin Exam: Warm, Dry, Intact, Normal Color, No Rash Course - Vital Signs Last Recorded V/S: Last Vital Signs Temp 97.5 F 01/01/21 13:51 Pulse 97 01/01/21 18:49 Resp 18 01/01/21 13:51 BP 167/106 H 01/01/21 13:51 Pulse Ox 97 01/01/21 18:49 - Orders/Labs/Meds Orders: Active Orders 24 hr Category Date Time Status Peripheral IV Care [RC] . DIRECTED Care 01/01/21 13:59 Ordered Sodium Chloride 0.9% [Saline Flush] Med 01/01/21 13:59 Active 10 ml FLUSH ASDIRECTED PRN Peripheral IV Insertion Adult [OM.PC] Stat Oth 01/01/21 13:59 Ordered Medication Orders Sodium Chloride (Sodium Chloride 0.9% 10 Ml Syringe) 10 ml FLUSH ASDIRECTED PRN PRN Reason: Keep Vein Open Last Admin: 01/01/21 14:42 Dose: 10 ml Documented by: DONOVAN Labs: Laboratory Tests 01/01/21 01/01/21 01/01/21 Range/Units 14:41 14:41 14:41 WBC 5.22 (3.98-10.04) K/mm3 RBC 4.71 (3.98-5.22) M/mm3 Hgb 14.3 (11.2-15.7) gm/dl Hct 45.5 H (34.1-44.9) % MCV 96.6 H (79.4-94.8) fl MCH 30.4 (25.6-32.2) pg MCHC 31.4 L (32.2-35.5) g/dl RDW Std Deviation 51.1 H (36.4-46.3) fL Plt Count 175 L (182-369) K/mm3 MPV 9.7 (9.4-12.3) fl Neut % (Auto) 49.2 (34.0-71.1) % Lymph % (Auto) 43.7 (19.3-51.7) % [place] % (Auto) 3.8 L (4.7-12.5) % Eos % (Auto) 2.7 (0.7-5.8) Baso % (Auto) 0.4 (0.1-1.2) % Neut # (Auto) 2.57 (1.56-6.13) K/mm3 Lymph # (Auto) 2.28 (1.18-3.74) K/mm3 [place] # (Auto) 0.20 L (0.24-0.36) K/mm3 Eos # (Auto) 0.14 (0.04-0.36) K/mm3 Baso # (Auto) 0.02 (0.01-0.08) K/mm3 PT 11.0 (9.7-12.0) SECONDS INR 0.99 Sodium 150 H (136-145) mEq/L Potassium 3.5 (3.5-5.1) mEq/L Chloride 111 H (98-107) mEq/L Carbon Dioxide 26 (21-32) mEq/L Anion Gap 16.5 H (5-15) BUN 8 (7-18) mg/dL Creatinine 0.7 (0.55-1.02) mg/dL Est Cr Clr Drug Dosing 77.01 mL/min Estimated GFR (MDRD) > 60 (>60) mL/min BUN/Creatinine Ratio 11.4 L (14-18) Glucose 95 (70-99) mg/dL Calcium 7.6 L (8.5-10.1) mg/dL Magnesium 1.9 (1.8-2.4) mg/dL Total Bilirubin 0.3 (0.2-1.0) mg/dL AST 20 (15-37) U/L ALT 29 (14-59) U/L Alkaline Phosphatase 67 (46-116) U/L Total Protein 6.4 (6.4-8.2) g/dl Albumin 3.5 (3.4-5.0) g/dl Globulin 2.9 gm/dL Albumin/Globulin Ratio 1.2 (1-2) Ethyl Alcohol 0.43 (0.00) gm% Meds: Medications Generic Name Dose Route Start Last Admin Trade Name Abelardo PRN Reason Stop Dose Admin Sodium Chloride 10 ml 01/01/21 13:59 01/01/21 14:42 Sodium Chloride 0.9% 10 Ml Syringe FLUSH 10 ml ASDIRECTED PRN Administration Keep Vein Open Discontinued Medications Generic Name Dose Route Start Last Admin Trade Name Abelardo PRN Reason Stop Dose Admin Sodium Chloride 1,000 mls @ 999 mls/hr 01/01/21 13:59 01/01/21 14:42 Normal Saline IV 01/01/21 14:59 999 mls/hr ONETIME ONE Administration Sodium Chloride 1,000 mls @ 500 mls/hr 01/01/21 16:16 01/01/21 16:32 Normal Saline IV 01/01/21 18:15 500 mls/hr ONETIME ONE Administration Metoclopramide HCl 10 mg 01/01/21 13:59 01/01/21 14:42 Metoclopramide 10 Mg/2 Ml Sdv IVPUSH 01/01/21 14:00 10 mg ONETIME ONE Administration - Re-Assessments/Exams Free Text/Narrative Re-Assessment/Exam: 01/01/21 14:00 Patient presents to the ER for the evaluation of being found on her apartment floor. She is obviously intoxicated. She is not very forthcoming with information at this time. We will try to give her some IV fluids however she states all she wants to do with sleep. 01/01/21 17:07 Laboratory evaluation is essentially unremarkable, blood alcohol level is 0.43. Again patient did appear heavily intoxicated when she first came to the ER. She has gotten at least 1 L of fluids, and is on her second. As soon as she is up and awake enough, and can talk with us and walk to the bathroom she will be discharged home with general recommendations. 01/01/21 19:32 Patient is up, and walk to the bathroom with little difficulty. She is wishing to go home at this time. We'll go ahead and discharge her. Departure - Departure Time of Disposition: 17:08 Disposition: Home, Self-Care 01 Condition: Good Clinical Impression: Alcohol intoxication Qualifiers: Complication of substance-induced condition: uncomplicated Qualified Code(s): F10.920 - Alcohol use, unspecified with intoxication, uncomplicated - Discharge Information *PRESCRIPTION DRUG MONITORING PROGRAM REVIEWED*: No *COPY OF PRESCRIPTION DRUG MONITORING REPORT IN PATIENT ANTHONY: No Instructions: Finding Treatment for Addiction Forms: ED Department Discharge Additional Instructions: You were evaluated in the ER today for your acute alcohol intoxication. Labs were consistent with being intoxicated and your blood alcohol was 0.43 when you initially came to the ER. You were given some IV fluids, and some IV nausea meds, prior to discharge you were able to talk with us, and were able to walk to the bathroom without difficulty. Highly and strongly recommend that you quit drinking to excess like this, as it is very detrimental to your health. Do not hesitate to return to the ER if symptoms change or worsen. Sepsis Event Note (ED) - Evaluation Sepsis Screening Result: No Definite Risk - Focused Exam Vital Signs: Vital Signs Temp Pulse Resp BP Pulse Ox 01/01/21 18:49 97 97 01/01/21 15:59 100 01/01/21 15:17 95 01/01/21 13:51 97.5 F 91 18 167/106 H 98 - My Orders Last 24 Hours: My Active Orders 01/01/21 13:59 Peripheral IV Care [RC] . DIRECTED Sodium Chloride 0.9% [Saline Flush] 10 ml FLUSH ASDIRECTED PRN Peripheral IV Insertion Adult [OM.PC] Stat - Assessment/Plan Last 24 Hours: My Active Orders 01/01/21 13:59 Peripheral IV Care [RC] . DIRECTED Sodium Chloride 0.9% [Saline Flush] 10 ml FLUSH ASDIRECTED PRN Peripheral IV Insertion Adult [OM.PC] Stat
[2021-01-01 18:50] VITALS: PULSE 97
== END 2021-01-01 19:50 | disposition home or self-care (01) ==
LOC: JD.ED 13:46
DX: F10.120 Alcohol abuse with intoxication, uncomplicated (principal); E78.00 Pure hypercholesterolemia, unspecified; I10 Essential (primary) hypertension; J45.909 Unspecified asthma, uncomplicated; K21.9 Gastro-esophageal reflux disease without esophagitis; Y90.0 Blood alcohol level of less than 20 mg/100 ml; Z88.1 Allergy status to other antibiotic agents; Z88.8 Allergy status to other drugs, medicaments and biological substances; Z79.899 Other long term (current) drug therapy
CPT/HCPCS: 36415; 80053; 80307; 83735; 85025; 85610; 96374; 99284; J2765; J7030; 99283

== ENCOUNTER 2021-01-02 11:12 | Emergency (ER) | payer BC ==
[2021-01-02 11:27] VITALS: BP 156/82; PULSE 102
[2021-01-02] MEDS ORDERED: Sodium Chloride 0.9% 1,000 ML IV STA (12:07)
--- NOTE | 2021-01-02 13:04 | EDM.PDOCBH ---
ED HPI GENERAL MEDICAL PROBLEM - General Chief Complaint: Drug or Alcohol Abuse Stated Complaint: [facility] Time Seen by Provider: 01/02/21 11:17 Source of Information: Reports: Patient, RN Notes Reviewed History Limitations: Reports: No Limitations - History of Present Illness INITIAL COMMENTS - FREE TEXT/NARRATIVE: Patient is a 65-year-old female presenting to the emergency department via [facility] for acute alcohol intoxication. Patient is very well-known to this emergency department for her chronic alcoholism and binge drinking. She was he seen in this ER yesterday for the same complaint and found to have a blood alcohol of 0.43. After she was able to ambulate on her own volition, she was discharged home. Patient reports that today she drinks 7 vodka shooters. Her neighbor went to check on her and called the ambulance. Patient is obviously intoxicated and communication is somewhat difficult. Patient denies any illicit drug use however. She has gone through numerous alcohol treatments in the past. She currently established with [facility] for outpatient services. - Related Data Allergies Allergy/AdvReac Type Severity Reaction Status Date / Time levofloxacin [From Levaquin] Allergy Intermediate Rash Verified 11/25/20 06:58 propoxyphene napsylate AdvReac Mild Headache Verified 11/25/20 06:58 [From Darvocet-N] Home Meds: Home Meds Fluticasone Propion/Salmeterol [Advair 250-50 Diskus] 1 puff IH BID 05/24/16 [History] atorvaSTATin [Lipitor] 20 mg PO DAILY 05/24/16 [History] Albuterol Sulfate [Albuterol Sulfate Hfa] 2 puff PO Q4HR PRN 12/22/18 [History] Sucralfate [Carafate] 1 gm PO QID 12/22/18 [History] Folic Acid 1 mg PO DAILY #30 tablet 12/23/18 [Rx] Thiamine [Vitamin B-1] 100 mg PO BEDTIME #30 tab 12/23/18 [Rx] Cranberry Fruit Extract [Cranberry] 500 mg PO DAILY 04/01/19 [History] Lutein/Minerals/Vit A,C & E [Ocuvite] 1 tab PO DAILY 04/01/19 [History] Montelukast [Singulair] 10 mg PO BEDTIME 04/01/19 [History] DULoxetine [Cymbalta] 30 mg PO DAILY 04/14/20 [History] Losartan [Cozaar] 12.5 mg PO DAILY 04/14/20 [History] Mirtazapine 15 mg PO BEDTIME 04/14/20 [History] OLANZapine [Olanzapine] 10 mg PO BEDTIME 04/14/20 [History] atenoloL [Atenolol] 25 mg PO DAILY 04/14/20 [History] lamoTRIgine [Lamotrigine] 100 mg PO DAILY 04/14/20 [History] Ferrous Sulfate [Iron] 325 mg PO BID 06/16/20 [History] Pantoprazole [ProTONIX] 40 mg PO BIDAC 06/16/20 [History] Topiramate 25 mg PO BEDTIME 06/16/20 [History] Magnesium Oxide 400 mg PO BID #30 tablet 06/17/20 [Rx] Saccharomyces Boulardii [Florastor] 500 mg PO BID #20 cap 06/17/20 [Rx] LORazepam [Ativan] 1 mg PO TID #18 tablet 07/14/20 [Rx] Past Medical History HEENT History: Reports: Impaired Vision Other HEENT History: wears glasses Cardiovascular History: Reports: None, High Cholesterol, Hypertension Respiratory History: Reports: Asthma Gastrointestinal History: Reports: Chronic Diarrhea, GERD, Irritable Bowel Syndrome Genitourinary History: Reports: Urinary Incontinence, UTI, Recurrent 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: Reports: Other (See Below) 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: Patient states she started menopause at 54 yoa Musculoskeletal History: Reports: Arthritis, Other (See Below) Other Musculoskeletal History: knee/shoulder pain Neurological History: Reports: Headaches, Chronic Other Neuro History: headaches Psychiatric History: Reports: Addiction, Anxiety, Bipolar, Depression, Eating Disorders Other Psychiatric History: eating disorder at age 14 Endocrine/Metabolic History: Reports: Osteoporosis Hematologic History: Reports: None Immunologic History: Reports: Other (See Below) Other Immunologic History: recurrent staph infections Oncologic (Cancer) History: Reports: None - Infectious Disease History Infectious Disease History: Reports: Chicken Pox, Measles - Past Surgical History Head Surgeries/Procedures: Reports: None HEENT Surgical History: Reports: Adenoidectomy, Oral Surgery, Tonsillectomy, Other (See Below) Other HEENT Surgeries/Procedures: facial surgery to fractures on right side of face from fall. Cardiovascular Surgical History: Reports: None Respiratory Surgical History: Reports: None Other Respiratory Surgeries/Procedures: per ER report GI Surgical History: Reports: Appendectomy Other GI Surgeries/Procedures: GI bleed Female Surgical History: Reports: None Other Female Surgeries/Procedures: Patient states she had her ureters dilated in [facility] Musculoskeletal Surgical History: Reports: ORIF, Shoulder Surgery, Other (See Below) Other Musculoskeletal Surgeries/Procedures:: wrist ORIF Social & Family History - Family History Family Medical History: No Pertinent Family History Cardiac: Reports: None Psychiatric: Reports: Other (See Below) Other Psychiatric Family History: 2 uncles ETOH abuse - Caffeine Use Caffeine Use: Reports: None Other Caffeine Use: Unknown if ever used due to being currently intoxicated. 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 - Review of Systems Review Of Systems: Unable To Obtain (Alcohol intoxication) Reason Not Obtained: intoxicated ED EXAM, BEHAVIORAL HEALTH - Physical Exam Exam: See Below Exam Limited By: Intoxication General Appearance: Alert, WD/WN, No Apparent Distress Eye Exam: Bilateral Eye: PERRL Respiratory/Chest: No Respiratory Distress, Lungs Clear, Normal Breath Sounds, No Accessory Muscle Use, Chest Non-Tender Cardiovascular: Normal Peripheral Pulses, Regular Rate, Rhythm, No Edema, No Gallop, No JVD, No Murmur, No Rub GI/Abdominal: Normal Bowel Sounds, Soft, Non-Tender, No Organomegaly, No Distention, No Abnormal Bruit, No Mass Neurological: No Motor/Sensory Deficits, Other (Obtunded. Responds to verbal stimuli.) Psychiatric: Other (Obtunded due to alcohol intoxication. Denies suicidal thoughts or plan.) Skin Exam: Warm, Dry, Intact, Normal color, No rash COURSE, BEHAVIORAL HEALTH COMP - Course Vital Signs: Last Vital Signs Temp 96.5 F L 01/02/21 11:19 Pulse 102 H 01/02/21 11:19 Resp 18 01/02/21 11:19 BP 156/82 H 01/02/21 11:19 Pulse Ox 91 L 01/02/21 11:19 Orders, Labs, Meds: Laboratory Tests 01/02/21 01/02/21 01/02/21 Range/Units 12:13 12:13 12:13 WBC 9.02 (3.98-10.04) K/mm3 RBC 4.81 (3.98-5.22) M/mm3 Hgb 14.5 (11.2-15.7) gm/dl Hct 46.4 H (34.1-44.9) % MCV 96.5 H (79.4-94.8) fl MCH 30.1 (25.6-32.2) pg MCHC 31.3 L (32.2-35.5) g/dl RDW Std Deviation 51.3 H (36.4-46.3) fL Plt Count 161 L (182-369) K/mm3 MPV 9.5 (9.4-12.3) fl Neut % (Auto) 71.0 (34.0-71.1) % Lymph % (Auto) 23.7 (19.3-51.7) % [place] % (Auto) 4.7 (4.7-12.5) % Eos % (Auto) 0.2 L (0.7-5.8) Baso % (Auto) 0.2 (0.1-1.2) % Neut # (Auto) 6.40 H (1.56-6.13) K/mm3 Lymph # (Auto) 2.14 (1.18-3.74) K/mm3 [place] # (Auto) 0.42 H (0.24-0.36) K/mm3 Eos # (Auto) 0.02 L (0.04-0.36) K/mm3 Baso # (Auto) 0.02 (0.01-0.08) K/mm3 PT 10.7 (9.7-12.0) SECONDS INR 0.96 APTT 24.9 (21.7-31.4) SECONDS Sodium 149 H (136-145) mEq/L Potassium 3.3 L (3.5-5.1) mEq/L Chloride 108 H (98-107) mEq/L Carbon Dioxide 25 (21-32) mEq/L Anion Gap 19.3 H (5-15) BUN 10 (7-18) mg/dL Creatinine 0.7 (0.55-1.02) mg/dL Est Cr Clr Drug Dosing TNP Estimated GFR (MDRD) > 60 (>60) mL/min BUN/Creatinine Ratio 14.3 (14-18) Glucose 80 (70-99) mg/dL Calcium 7.6 L (8.5-10.1) mg/dL Total Bilirubin 0.2 (0.2-1.0) mg/dL AST 23 (15-37) U/L ALT 29 (14-59) U/L Alkaline Phosphatase 71 (46-116) U/L Total Protein 6.5 (6.4-8.2) g/dl Albumin 3.7 (3.4-5.0) g/dl Globulin 2.8 gm/dL Albumin/Globulin Ratio 1.3 (1-2) Ethyl Alcohol 0.38 (0.00) gm% Medications Discontinued Medications Generic Name Dose Route Start Last Admin Trade Name Freq PRN Reason Stop Dose Admin Sodium Chloride 1,000 mls @ 999 mls/hr 01/02/21 12:07 01/02/21 15:43 Normal Saline IV 01/02/21 13:07 Not Given NOW STA Medical Clearance: Patient is a 65-year-old female returning to the emergency department via [facility] for acute alcohol intoxication. She is very well-known to this emergency department for her chronic alcoholism. She presented to the ER yesterday for similar complaint. Blood alcohol was found to be 0.43. She received IV fluids and when able to safely ambulate was discharged home. Patient reports that this morning she drank 7 vodka shooters and her neighbor called the ambulance. She has not expressed the desire to stop drinking. I have ordered blood work. We will give her 1 L bolus of normal saline. 01/02/21 1315 Hematology significant for sodium slight elevated 149, potassium 3.3, chloride 108, anion gap 19.3. Blood alcohol 0.38. Nursing staff had difficulty getting IV, however patient is awake and alert and drinking oral fluids. Patient reports that she does not want alcohol treatment and wants to go home after this. We will continue to encourage oral hydration and monitor. 01/02/21 15:39 Patient is alert and oriented x3 and ambulating without difficulty. She would like to be discharged. She will be discharged home. Nursing staff will arrange taxi for transport. Discharge instructions as documented. Departure - Departure Time of Disposition: 15:39 Disposition: Home, Self-Care 01 Condition: Good Clinical Impression: Alcohol abuse - Discharge Information *PRESCRIPTION DRUG MONITORING PROGRAM REVIEWED*: No *COPY OF PRESCRIPTION DRUG MONITORING REPORT IN PATIENT ANTHOYN: No Instructions: Alcohol Use Disorder Referrals: PCP,None [Primary Care Provider] - Forms: ED Department Discharge Additional Instructions: Abstain from alcohol use. Follow-up with [facility]. Return to ER as needed. Sepsis Event Note (ED) - Evaluation Sepsis Screening Result: No Definite Risk
== END 2021-01-02 17:07 | disposition home or self-care (01) ==
LOC: JD.ED 11:12
DX: F10.10 Alcohol abuse, uncomplicated (principal); E78.00 Pure hypercholesterolemia, unspecified; I10 Essential (primary) hypertension; J45.909 Unspecified asthma, uncomplicated; K21.9 Gastro-esophageal reflux disease without esophagitis; Y90.0 Blood alcohol level of less than 20 mg/100 ml; Z88.1 Allergy status to other antibiotic agents; Z88.8 Allergy status to other drugs, medicaments and biological substances; Z79.899 Other long term (current) drug therapy
CPT/HCPCS: 36415; 80053; 80307; 85025; 85610; 85730; 99283; 99284

== ENCOUNTER 2021-01-03 12:32 | Emergency (ER) | payer BC ==
[2021-01-03 16:21] VITALS: BP 136/84; PULSE 132
[2021-01-03 19:14] LABS: ACETAMINOPHEN 0 ug/mL (10-30)
[2021-01-03] MEDS ORDERED: Potassium Chloride 20 MEQ Tab.ER PO ONE (19:39)
--- NOTE | 2021-01-03 19:47 | EDM.PDOCBH ---
ED HPI GENERAL MEDICAL PROBLEM - General Chief Complaint: Drug or Alcohol Abuse Stated Complaint: DETOX Time Seen by Provider: 01/03/21 18:01 Source of Information: Reports: Patient, RN Notes Reviewed History Limitations: Reports: No Limitations - History of Present Illness INITIAL COMMENTS - FREE TEXT/NARRATIVE: Patient a 65-year-old female returning to the emergency department, initially with a request to detox from alcohol; however, she has now decided that she does not want to do this. She reports that she was drinking heavily this morning. Her [facility] clinical education coordinator came to check on her and found her intoxicated, therefore he dropped her off at the ER. Patient initially said that she wants to go to [facility] to be admitted to the substance abuse unit, marva car she has since decided that she would rather go home and follow-up with [facility] tomorrow. She reports she has no alcohol in her home. Last drink was around 7 AM this morning and she had a number of "airplane shooters ". She was in our waiting room for an extended period of time due to very heavy volumes in the ER. It has been approximately 6 hours since her initial presentation. She denies any homicidal or suicidal ideation. Shoulder Pain Score (Numeric/FACES): 4 - Related Data Allergies Allergy/AdvReac Type Severity Reaction Status Date / Time levofloxacin [From Levaquin] Allergy Intermediate Rash Verified 11/25/20 06:58 propoxyphene napsylate AdvReac Mild Headache Verified 11/25/20 06:58 [From Darvocet-N] Home Meds: Home Meds Fluticasone Propion/Salmeterol [Advair 250-50 Diskus] 1 puff IH BID 05/24/16 [History] atorvaSTATin [Lipitor] 20 mg PO DAILY 05/24/16 [History] Albuterol Sulfate [Albuterol Sulfate Hfa] 2 puff PO Q4HR PRN 12/22/18 [History] Sucralfate [Carafate] 1 gm PO QID 12/22/18 [History] Folic Acid 1 mg PO DAILY #30 tablet 12/23/18 [Rx] Thiamine [Vitamin B-1] 100 mg PO BEDTIME #30 tab 12/23/18 [Rx] Cranberry Fruit Extract [Cranberry] 500 mg PO DAILY 04/01/19 [History] Lutein/Minerals/Vit A,C & E [Ocuvite] 1 tab PO DAILY 04/01/19 [History] Montelukast [Singulair] 10 mg PO BEDTIME 04/01/19 [History] DULoxetine [Cymbalta] 30 mg PO DAILY 04/14/20 [History] Losartan [Cozaar] 12.5 mg PO DAILY 04/14/20 [History] Mirtazapine 15 mg PO BEDTIME 04/14/20 [History] OLANZapine [Olanzapine] 10 mg PO BEDTIME 04/14/20 [History] atenoloL [Atenolol] 25 mg PO DAILY 04/14/20 [History] lamoTRIgine [Lamotrigine] 100 mg PO DAILY 04/14/20 [History] Ferrous Sulfate [Iron] 325 mg PO BID 06/16/20 [History] Pantoprazole [ProTONIX] 40 mg PO BIDAC 06/16/20 [History] Topiramate 25 mg PO BEDTIME 06/16/20 [History] Magnesium Oxide 400 mg PO BID #30 tablet 06/17/20 [Rx] Saccharomyces Boulardii [Florastor] 500 mg PO BID #20 cap 06/17/20 [Rx] LORazepam [Ativan] 1 mg PO TID #18 tablet 07/14/20 [Rx] Past Medical History HEENT History: Reports: Impaired Vision Other HEENT History: wears glasses Cardiovascular History: Reports: None, High Cholesterol, Hypertension Respiratory History: Reports: Asthma Gastrointestinal History: Reports: Chronic Diarrhea, GERD, Irritable Bowel Syndrome Genitourinary History: Reports: Urinary Incontinence, UTI, Recurrent PHILOSOPHY SPECIALIST History: Reports: Other (See Below) Other PHILOSOPHY SPECIALIST History: Patient states she started menopause at 54 yoa Musculoskeletal History: Reports: Arthritis, Other (See Below) Other Musculoskeletal History: knee/shoulder pain Neurological History: Reports: Headaches, Chronic Other Neuro History: headaches Psychiatric History: Reports: Addiction, Anxiety, Bipolar, Depression, Eating Disorders Other Psychiatric History: eating disorder at age 14 Endocrine/Metabolic History: Reports: Osteoporosis Hematologic History: Reports: None Immunologic History: Reports: Other (See Below) Other Immunologic History: recurrent staph infections Oncologic (Cancer) History: Reports: None - Infectious Disease History Infectious Disease History: Reports: Chicken Pox, Measles - Past Surgical History Head Surgeries/Procedures: Reports: None HEENT Surgical History: Reports: Adenoidectomy, Oral Surgery, Tonsillectomy, Other (See Below) Other HEENT Surgeries/Procedures: facial surgery to fractures on right side of face from fall. Cardiovascular Surgical History: Reports: None Respiratory Surgical History: Reports: None Other Respiratory Surgeries/Procedures: per ER report GI Surgical History: Reports: Appendectomy Other GI Surgeries/Procedures: GI bleed Female Surgical History: Reports: None Other Female Surgeries/Procedures: Patient states [facility] Musculoskeletal Surgical History: Reports: ORIF, Shoulder Surgery, Other (See Below) Other Musculoskeletal Surgeries/Procedures:: wrist ORIF Social & Family History - Family History Family Medical History: No Pertinent Family History Cardiac: Reports: None Psychiatric: Reports: Other (See Below) Other Psychiatric Family History: 2 uncles ETOH abuse - Tobacco Use Tobacco Use Status *Q: Never Tobacco User - Caffeine Use Caffeine Use: Reports: Soda Other Caffeine Use: Unknown if ever used due to being currently intoxicated. 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 ED EXAM, BEHAVIORAL HEALTH - Physical Exam Exam: See Below Exam Limited By: No Limitations General Appearance: Alert, WD/WN, No Apparent Distress Respiratory/Chest: No Respiratory Distress, Lungs Clear, Normal Breath Sounds, No Accessory Muscle Use, Chest Non-Tender Cardiovascular: Normal Peripheral Pulses, Regular Rate, Rhythm, No Edema, No Gallop, No JVD, No Murmur, No Rub GI/Abdominal: Normal Bowel Sounds, Soft, Non-Tender, No Organomegaly, No Distention, No Abnormal Bruit, No Mass Neurological: Alert, Normal Mood/Affect, CN II-XII Intact, Normal Cognition, Normal Gait, Normal Reflexes, No Motor/Sensory Deficits, Oriented x 3 Psychiatric: Alert, Normal Affect, Normal Cognition, Normal Mood, Oriented Skin Exam: Warm, Dry, Intact, Normal color, No rash #1 Interpretation EKG Date: 01/03/21 Time: 18:14 Rhythm: NSR Rate (Beats/Min): 114 [place]: LAD-Left [place] Deviation P-Wave: Present QRS: Normal ST-T: Normal QT: Prolonged COURSE, BEHAVIORAL HEALTH COMP - Course Vital Signs: Last Vital Signs Temp 98.9 F 01/03/21 16:19 Pulse 132 H 01/03/21 16:19 Resp 20 01/03/21 16:19 BP 136/84 01/03/21 16:19 Pulse Ox 99 01/03/21 16:19 Orders, Labs, Meds: Laboratory Tests 01/03/21 01/03/21 01/03/21 Range/Units 18:32 18:32 18:32 WBC 8.85 (3.98-10.04) K/mm3 RBC 4.15 (3.98-5.22) M/mm3 Hgb 12.5 D (11.2-15.7) gm/dl Hct 39.2 (34.1-44.9) % MCV 94.5 (79.4-94.8) fl MCH 30.1 (25.6-32.2) pg MCHC 31.9 L (32.2-35.5) g/dl RDW Std Deviation 49.5 H (36.4-46.3) fL Plt Count 160 L (182-369) K/mm3 MPV 9.5 (9.4-12.3) fl Neutrophils % (Manual) 59 (40-60) % Band Neutrophils % 0 (0-10) % Lymphocytes % (Manual) 31 (20-40) % Atypical Lymphs % 3 % Monocytes % (Manual) 7 (2-10) % Eosinophils % (Manual) 0 L (0.7-5.8) % Basophils % (Manual) 0 L (0.1-1.2) Platelet Estimate Adequate RBC Morph Comment Normal Sodium 141 (136-145) mEq/L Potassium 2.7 L (3.5-5.1) mEq/L Chloride 102 (98-107) mEq/L Carbon Dioxide 24 (21-32) mEq/L Anion Gap 17.7 H (5-15) BUN 11 (7-18) mg/dL Creatinine 0.6 (0.55-1.02) mg/dL Est Cr Clr Drug Dosing 76.97 mL/min Estimated GFR (MDRD) > 60 (>60) mL/min BUN/Creatinine Ratio 18.3 H (14-18) Glucose 70 (70-99) mg/dL Calcium 7.8 L (8.5-10.1) mg/dL Total Bilirubin 0.7 (0.2-1.0) mg/dL AST 41 H (15-37) U/L ALT 32 (14-59) U/L Alkaline Phosphatase 72 (46-116) U/L Total Protein 6.0 L (6.4-8.2) g/dl Albumin 3.5 (3.4-5.0) g/dl Globulin 2.5 gm/dL Albumin/Globulin Ratio 1.4 (1-2) TSH 3rd Generation 0.289 L (0.358-3.74) uIU/mL Salicylates 0.0 L (2.8-20) mg/dL Acetaminophen 0 L (10-30) ug/mL Ethyl Alcohol 0.25 (0.00) gm% Medications Discontinued Medications Generic Name Dose Route Start Last Admin Trade Name Freq PRN Reason Stop Dose Admin Potassium Chloride 40 meq 01/03/21 19:39 01/03/21 19:57 Potassium Chloride 20 Meq Tab.Er PO 01/03/21 19:40 40 meq ONETIME ONE Administration Discharge vs Psych Eval/Treatment:: Patient is a 65-year-old female presenting to the emergency department for the third day in a row. She was dropped off here earlier today by her [facility] clinical education coordinator for alcohol intoxication. Initially she stated that she wanted to go to [facility] for alcohol treatment, however she has since changed her mind. She would like to go home. States that she will not drink and that she does not have alcohol in her house. She wants to follow-up with [facility] tomorrow. I discussed the option of the [facility] residential crisis center bed, however she declined this. She denies any history of alcohol withdrawal. Blood work was ordered during the triage process. We will await the results of this and then plan to discharge patient home per her request. 01/03/21 19:58 Hematology significant for potassium low at 2.7, and a gap 17.7, AST 41, TSH 0.289. Blood alcohol 0.25. Patient is requesting to be discharged home. I will give her 40 mEq of oral potassium. Ports that she takes 10 mEq of potass ium twice daily normally. I would have her increase this to 20 mEq twice daily for the next 3 days and then have her follow-up with her primary care provider on Saturday to have her blood work rechecked. Recommended that she abstain from alcohol use. Patient reiterated that she has no alcohol in her house. She request to have temp from [facility] call her in the morning to follow-up with her. Nursing will update the on-call clinical education coordinator from [facility] of this plan. Discharge instructions as documented. Departure - Departure Time of Disposition: 19:58 Disposition: Home, Self-Care 01 Condition: Good Clinical Impression: Alcohol abuse, Hypokalemia - Discharge Information *PRESCRIPTION DRUG MONITORING PROGRAM REVIEWED*: No *COPY OF PRESCRIPTION DRUG MONITORING REPORT IN PATIENT ANTHONY: No Instructions: Alcohol Use Disorder, Hypokalemia Referrals: Renard Verduzco MD [Primary Care Provider] - Forms: ED Department Discharge Additional Instructions: Abstain from alcohol consumption. Follow-up with balance tomorrow morning. Take 20 mEq of potassium twice daily for the next 3 days. Follow-up with Dr. Verduzco on Saturday to have your potassium rechecked. Return to ER as needed. Sepsis Event Note (ED) - Focused Exam Vital Signs: Vital Signs Temp Pulse Resp BP Pulse Ox 01/03/21 16:19 98.9 F 132 H 20 136/84 99
== END 2021-01-03 20:20 | disposition home or self-care (01) ==
LOC: JD.ED 12:32
DX: F10.129 Alcohol abuse with intoxication, unspecified (principal); E87.6 Hypokalemia; E78.00 Pure hypercholesterolemia, unspecified; I10 Essential (primary) hypertension; K21.9 Gastro-esophageal reflux disease without esophagitis; Z88.1 Allergy status to other antibiotic agents; Z88.8 Allergy status to other drugs, medicaments and biological substances; Z79.899 Other long term (current) drug therapy; Y90.5 Blood alcohol level of 100-119 mg/100 ml
CPT/HCPCS: 36415; 80053; 80143; 80179; 80307; 84443; 85007; 85027; 93005; 99284; A9270; 93010; 99283

== ENCOUNTER 2021-01-15 15:11 | Emergency (ER) | payer BC ==
[2021-01-15] MEDS ORDERED: Sodium Chloride 0.9% 10 ML Syringe FLUSH PRN (15:18)
[2021-01-15 15:20] VITALS: BP 137/80; PULSE 95
[2021-01-15] MEDS ORDERED: Dextrose 5%-Lactated Ringers 1,000 ML IV SCH (15:30)
--- NOTE | 2021-01-15 15:31 | EDM.PDOCBH ---
ED HPI GENERAL MEDICAL PROBLEM - General Chief Complaint: Drug or Alcohol Abuse Stated Complaint: [facility] Time Seen by Provider: 01/15/21 15:17 Source of Information: Reports: EMS History Limitations: Reports: Intoxication - History of Present Illness INITIAL COMMENTS - FREE TEXT/NARRATIVE: 65-year-old female presents the emergency department via [facility] after her mother was unable to get a hold of her via telephone. Patient was found on the floor of the kitchen unresponsive and intoxicated. Patient is well-known to this emergency department and does have a history of alcoholism with numerous visits. Upon exam, the patient is laying in bed. She will open her eyes to verbal command however she is not responsive at this time verbally. Vital signs are stable. We will have nursing staff place an IV saline lock she will receive a liter of D5LR at wide open as well as lab studies to include a CBC, CMP, magnesium level, lactic acid, salicylate level, acetaminophen level, urine drug screen, blood alcohol level. - Related Data Allergies Allergy/AdvReac Type Severity Reaction Status Date / Time levofloxacin [From Levaquin] Allergy Intermediate Rash Verified 01/15/21 15:20 propoxyphene napsylate AdvReac Mild Headache Verified 01/15/21 15:20 [From Darvocet-N] Home Meds: Home Meds Fluticasone Propion/Salmeterol [Advair 250-50 Diskus] 1 puff IH BID 05/24/16 [History] atorvaSTATin [Lipitor] 20 mg PO DAILY 05/24/16 [History] Albuterol Sulfate [Albuterol Sulfate Hfa] 2 puff PO Q4HR PRN 12/22/18 [History] Sucralfate [Carafate] 1 gm PO QID 12/22/18 [History] Folic Acid 1 mg PO DAILY #30 tablet 12/23/18 [Rx] Thiamine [Vitamin B-1] 100 mg PO BEDTIME #30 tab 12/23/18 [Rx] Cranberry Fruit Extract [Cranberry] 500 mg PO DAILY 04/01/19 [History] Lutein/Minerals/Vit A,C & E [Ocuvite] 1 tab PO DAILY 04/01/19 [History] Montelukast [Singulair] 10 mg PO BEDTIME 04/01/19 [History] DULoxetine [Cymbalta] 30 mg PO DAILY 04/14/20 [History] Losartan [Cozaar] 12.5 mg PO DAILY 04/14/20 [History] Mirtazapine 15 mg PO BEDTIME 04/14/20 [History] OLANZapine [Olanzapine] 10 mg PO BEDTIME 04/14/20 [History] atenoloL [Atenolol] 25 mg PO DAILY 04/14/20 [History] lamoTRIgine [Lamotrigine] 100 mg PO DAILY 04/14/20 [History] Ferrous Sulfate [Iron] 325 mg PO BID 06/16/20 [History] Pantoprazole [ProTONIX] 40 mg PO BIDAC 06/16/20 [History] Topiramate 25 mg PO BEDTIME 06/16/20 [History] Magnesium Oxide 400 mg PO BID #30 tablet 06/17/20 [Rx] Saccharomyces Boulardii [Florastor] 500 mg PO BID #20 cap 06/17/20 [Rx] LORazepam [Ativan] 1 mg PO TID #18 tablet 07/14/20 [Rx] Past Medical History HEENT History: Reports: Impaired Vision Other HEENT History: wears glasses Cardiovascular History: Reports: None, High Cholesterol, Hypertension Respiratory History: Reports: Asthma Gastrointestinal History: Reports: Chronic Diarrhea, GERD, Irritable Bowel Syndrome Genitourinary History: Reports: Urinary Incontinence, UTI, Recurrent FORMING MACHINE TENDER History: Reports: Other (See Below) Other FORMING MACHINE TENDER History: Patient states she started menopause at 54 yoa Musculoskeletal History: Reports: Arthritis, Other (See Below) Other Musculoskeletal History: knee/shoulder pain Neurological History: Reports: Headaches, Chronic Other Neuro History: headaches Psychiatric History: Reports: Addiction, Anxiety, Bipolar, Depression, Eating Disorders Other Psychiatric History: eating disorder at age 14 Endocrine/Metabolic History: Reports: Osteoporosis Hematologic History: Reports: None Immunologic History: Reports: Other (See Below) Other Immunologic History: recurrent staph infections Oncologic (Cancer) History: Reports: None - Infectious Disease History Infectious Disease History: Reports: Chicken Pox, Measles - Past Surgical History Head Surgeries/Procedures: Reports: None HEENT Surgical History: Reports: Adenoidectomy, Oral Surgery, Tonsillectomy, Other (See Below) Other HEENT Surgeries/Procedures: facial surgery to fractures on right side of face from fall. Cardiovascular Surgical History: Reports: None Respiratory Surgical History: Reports: None Other Respiratory Surgeries/Procedures: per ER report GI Surgical History: Reports: Appendectomy Other GI Surgeries/Procedures: GI bleed Female Surgical History: Reports: None Other Female Surgeries/Procedures: Patient states she had her ureters dilated in [facility] Musculoskeletal Surgical History: Reports: ORIF, Shoulder Surgery, Other (See Below) Other Musculoskeletal Surgeries/Procedures:: wrist ORIF Social & Family History - Family History Family Medical History: No Pertinent Family History Cardiac: Reports: None Psychiatric: Reports: Other (See Below) Other Psychiatric Family History: 2 uncles ETOH abuse - Caffeine Use Caffeine Use: Reports: Soda Other Caffeine Use: Unknown if ever used due to being currently intoxicated. 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[employer]) ED ROS GENERAL - Review of Systems Review Of Systems: Unable To Obtain Reason Not Obtained: Intoxication ED EXAM, BEHAVIORAL HEALTH - Physical Exam Exam: See Below Exam Limited By: Intoxication General Appearance: No Apparent Distress, Other (Patient will open her eyes to verbal command however is not verbally responsive and interacting with staff) Eye Exam: Bilateral Eye: PERRL Ears: Normal External Exam, Hearing Grossly Normal Nose: Normal Inspection Throat/Mouth: Normal Inspection, Normal Lips, No Airway Compromise Head: Atraumatic, Normocephalic Neck: Normal Inspection, Supple Respiratory/Chest: No Respiratory Distress, Lungs Clear, Normal Breath Sounds, No Accessory Muscle Use, Chest Non-Tender Cardiovascular: Normal Peripheral Pulses, Regular Rate, Rhythm, No Edema, No Murmur GI/Abdominal: Normal Bowel Sounds, Soft, Non-Tender, No Distention (Female) Exam: Deferred Rectal (Female) Exam: Deferred Back Exam: Normal Inspection Extremities: Normal Inspection Neurological: Other (Patient is severely intoxicated and nonverbal at this time. She will open her eyes to verbal command however does not interact and talk to me. Unable to perform neuro exam and assess orientation.) Psychiatric: Other (See above) Skin Exam: Warm, Dry, Intact, Normal color, No rash COURSE, BEHAVIORAL HEALTH COMP - Course Vital Signs: Last Vital Signs Temp 97.4 F 01/15/21 15:17 Pulse 95 01/15/21 15:17 Resp 18 01/15/21 15:17 BP 137/80 01/15/21 15:17 Pulse Ox 91 L 01/15/21 15:17 Orders, Labs, Meds: Active Orders 24 hr Category Date Time Status Saline Lock Insert [OM.PC] Stat Oth 01/15/21 15:18 Ordered Laboratory Tests 01/15/21 01/15/21 01/15/21 Range/Units 15:50 15:50 15:50 WBC 4.91 (3.98-10.04) K/mm3 RBC 4.47 (3.98-5.22) M/mm3 Hgb 13.5 (11.2-15.7) gm/dl Hct 43.0 (34.1-44.9) % MCV 96.2 H (79.4-94.8) fl MCH 30.2 (25.6-32.2) pg MCHC 31.4 L (32.2-35.5) g/dl RDW Std Deviation 51.1 H (36.4-46.3) fL Plt Count 366 D (182-369) K/mm3 MPV 8.6 L (9.4-12.3) fl Neut % (Auto) 53.0 (34.0-71.1) % Lymph % (Auto) 38.5 (19.3-51.7) % [place] % (Auto) 7.7 (4.7-12.5) % Eos % (Auto) 0.2 L (0.7-5.8) Baso % (Auto) 0.4 (0.1-1.2) % Neut # (Auto) 2.60 (1.56-6.13) K/mm3 Lymph # (Auto) 1.89 (1.18-3.74) K/mm3 [place] # (Auto) 0.38 H (0.24-0.36) K/mm3 Eos # (Auto) 0.01 L (0.04-0.36) K/mm3 Baso # (Auto) 0.02 (0.01-0.08) K/mm3 Sodium 146 H (136-145) mEq/L Potassium 3.1 L (3.5-5.1) mEq/L Chloride 106 (98-107) mEq/L Carbon Dioxide 28 (21-32) mEq/L Anion Gap 15.1 H (5-15) BUN 13 (7-18) mg/dL Creatinine 0.6 (0.55-1.02) mg/dL Est Cr Clr Drug Dosing TNP Estimated GFR (MDRD) > 60 (>60) mL/min BUN/Creatinine Ratio 21.7 H (14-18) Glucose 147 H (70-99) mg/dL Lactic Acid 3.2 H* (0.4-2.0) mmol/L Calcium 7.8 L (8.5-10.1) mg/dL Magnesium 1.7 L (1.8-2.4) mg/dL Total Bilirubin 0.2 (0.2-1.0) mg/dL AST 29 (15-37) U/L ALT 34 (14-59) U/L Alkaline Phosphatase 60 (46-116) U/L Total Protein 6.0 L (6.4-8.2) g/dl Albumin 3.3 L (3.4-5.0) g/dl Globulin 2.7 gm/dL Albumin/Globulin Ratio 1.2 (1-2) TSH 3rd Generation 0.597 (0.358-3.74) uIU/mL Urine Color (Yellow) Urine Appearance (Clear) Urine pH (5.0-8.0) Ur Specific [place] (1.005-1.030) Urine Protein (Negative) Urine Glucose (UA) (Negative) Urine Ketones (Negative) Urine Occult Blood (Negative) Urine Nitrite (Negative) Urine Bilirubin (Negative) Urine Urobilinogen (0.2-1.0) Ur Leukocyte Esterase (Negative) Salicylates (2.8-20) mg/dL Urine Opiates Screen (VMCFMS=853) Ur Buprenorphine Scrn (CUTOFF=10) Ur Oxycodone Screen (JSW3MT=852) Urine Methadone Screen (PIMFCB=171) Ur Propoxyphene Screen (UOXIZX=853) Acetaminophen 0 L (10-30) ug/mL Ur Barbiturates Screen (CKYHSP=080) Ur Tricyclics Screen (OPKOON=954) Ur Phencyclidine Scrn (CUTOFF=25) Ur Amphetamine Screen (KKJVWF=906) U Methamphetamines Scrn (SOXUBW=156) U Benzodiazepines Scrn (LPAYCU=873) U Cocaine Metab Screen (BHNLUB=473) U Marijuana (THC) Screen (CUTOFF=50) Ethyl Alcohol 0.44 (0.00) gm% 01/15/21 01/15/21 01/15/21 Range/Units 15:50 19:05 22:05 WBC (3.98-10.04) K/mm3 RBC (3.98-5.22) M/mm3 Hgb (11.2-15.7) gm/dl Hct (34.1-44.9) % MCV (79.4-94.8) fl MCH (25.6-32.2) pg MCHC (32.2-35.5) g/dl RDW Std Deviation (36.4-46.3) fL Plt Count (182-369) K/mm3 MPV (9.4-12.3) fl Neut % (Auto) (34.0-71.1) % Lymph % (Auto) (19.3-51.7) % [place] % (Auto) (4.7-12.5) % Eos % (Auto) (0.7-5.8) Baso % (Auto) (0.1-1.2) % Neut # (Auto) (1.56-6.13) K/mm3 Lymph # (Auto) (1.18-3.74) K/mm3 [place] # (Auto) (0.24-0.36) K/mm3 Eos # (Auto) (0.04-0.36) K/mm3 Baso # (Auto) (0.01-0.08) K/mm3 Sodium (136-145) mEq/L Potassium (3.5-5.1) mEq/L Chloride (98-107) mEq/L Carbon Dioxide (21-32) mEq/L Anion Gap (5-15) BUN (7-18) mg/dL Creatinine (0.55-1.02) mg/dL Est Cr Clr Drug Dosing Estimated GFR (MDRD) (>60) mL/min BUN/Creatinine Ratio (14-18) Glucose (70-99) mg/dL Lactic Acid 1.5 (0.4-2.0) mmol/L Calcium (8.5-10.1) mg/dL Magnesium (1.8-2.4) mg/dL Total Bilirubin (0.2-1.0) mg/dL AST (15-37) U/L ALT (14-59) U/L Alkaline Phosphatase (46-116) U/L Total Protein (6.4-8.2) g/dl Albumin (3.4-5.0) g/dl Globulin gm/dL Albumin/Globulin Ratio (1-2) TSH 3rd Generation (0.358-3.74) uIU/mL Urine Color Yellow (Yellow) Urine Appearance Clear (Clear) Urine pH 6.0 (5.0-8.0) Ur Specific [place] 1.020 (1.005-1.030) Urine Protein Negative (Negative) Urine Glucose (UA) Trace H (Negative) Urine Ketones Negative (Negative) Urine Occult Blood Negative (Negative) Urine Nitrite Negative (Negative) Urine Bilirubin Negative (Negative) Urine Urobilinogen 0.2 (0.2-1.0) Ur Leukocyte Esterase Negative (Negative) Salicylates 0.6 L (2.8-20) mg/dL Urine Opiates Screen (ULICJN=653) Ur Buprenorphine Scrn (CUTOFF=10) Ur Oxycodone Screen (KLP0HD=306) Urine Methadone Screen (ZOACVD=708) Ur Propoxyphene Screen (VGNBEL=386) Acetaminophen (10-30) ug/mL Ur Barbiturates Screen (VKXQQV=797) Ur Tricyclics Screen (HAZWUH=966) Ur Phencyclidine Scrn (CUTOFF=25) Ur Amphetamine Screen (SOSEWD=347) U Methamphetamines Scrn (LMVEXC=209) U Benzodiazepines Scrn (VWSIIC=063) U Cocaine Metab Screen (CAZTYO=952) U Marijuana (THC) Screen (CUTOFF=50) Ethyl Alcohol (0.00) gm% 01/15/21 Range/Units 22:05 WBC (3.98-10.04) K/mm3 RBC (3.98-5.22) M/mm3 Hgb (11.2-15.7) gm/dl Hct (34.1-44.9) % MCV (79.4-94.8) fl MCH (25.6-32.2) pg MCHC (32.2-35.5) g/dl RDW Std Deviation (36.4-46.3) fL Plt Count (182-369) K/mm3 MPV (9.4-12.3) fl Neut % (Auto) (34.0-71.1) % Lymph % (Auto) (19.3-51.7) % [place] % (Auto) (4.7-12.5) % Eos % (Auto) (0.7-5.8) Baso % (Auto) (0.1-1.2) % Neut # (Auto) (1.56-6.13) K/mm3 Lymph # (Auto) (1.18-3.74) K/mm3 [place] # (Auto) (0.24-0.36) K/mm3 Eos # (Auto) (0.04-0.36) K/mm3 Baso # (Auto) (0.01-0.08) K/mm3 Sodium (136-145) mEq/L Potassium (3.5-5.1) mEq/L Chloride (98-107) mEq/L Carbon Dioxide (21-32) mEq/L Anion Gap (5-15) BUN (7-18) mg/dL Creatinine (0.55-1.02) mg/dL Est Cr Clr Drug Dosing Estimated GFR (MDRD) (>60) mL/min BUN/Creatinine Ratio (14-18) Glucose (70-99) mg/dL Lactic Acid (0.4-2.0) mmol/L Calcium (8.5-10.1) mg/dL Magnesium (1.8-2.4) mg/dL Total Bilirubin (0.2-1.0) mg/dL AST (15-37) U/L ALT (14-59) U/L Alkaline Phosphatase (46-116) U/L Total Protein (6.4-8.2) g/dl Albumin (3.4-5.0) g/dl Globulin gm/dL Albumin/Globulin Ratio (1-2) TSH 3rd Generation (0.358-3.74) uIU/mL Urine Color (Yellow) Urine Appearance (Clear) Urine pH (5.0-8.0) Ur Specific [place] (1.005-1.030) Urine Protein (Negative) Urine Glucose (UA) (Negative) Urine Ketones (Negative) Urine Occult Blood (Negative) Urine Nitrite (Negative) Urine Bilirubin (Negative) Urine Urobilinogen (0.2-1.0) Ur Leukocyte Esterase (Negative) Salicylates (2.8-20) mg/dL Urine Opiates Screen Negative (XIYXXK=247) Ur Buprenorphine Scrn Negative (CUTOFF=10) Ur Oxycodone Screen Negative (TRW4RV=282) Urine Methadone Screen Negative (GWBBEG=515) Ur Propoxyphene Screen Negative (GGFVLR=852) Acetaminophen (10-30) ug/mL Ur Barbiturates Screen Negative (URZXOU=853) Ur Tricyclics Screen Negative (QLHYFP=994) Ur Phencyclidine Scrn Negative (CUTOFF=25) Ur Amphetamine Screen Negative (MWWCDE=168) U Methamphetamines Scrn Negative (HJTPIR=621) U Benzodiazepines Scrn Negative (DINZPF=679) U Cocaine Metab Screen Negative (LVQHLC=396) U Marijuana (THC) Screen Negative (CUTOFF=50) Ethyl Alcohol (0.00) gm% Medications Discontinued Medications Generic Name Dose Route Start Last Admin Trade Name Freq PRN Reason Stop Dose Admin Dextrose/Lactated Ringer's 1,000 mls @ 999 mls/hr 01/15/21 15:30 01/15/21 15:41 Dextrose 5%-Lactated Ringers IV 999 mls/hr ASDIRECTED STEPHANE Administration Potassium Chloride 10 meq/ 100 mls @ 100 mls/hr 01/15/21 17:00 01/15/21 20:50 Premix IV 01/15/21 20:59 100 mls/hr Q1H STEPHANE Administration Sodium Chloride 1,000 mls @ 999 mls/hr 01/15/21 17:00 01/15/21 17:15 Normal Saline IV 01/15/21 18:00 999 mls/hr ONETIME ONE Administration Sodium Chloride 1,000 mls @ 999 mls/hr 01/15/21 18:48 Normal Saline IV 01/15/21 19:48 ONETIME ONE Lactated Ringer's 1,000 mls @ 999 mls/hr 01/15/21 18:50 01/15/21 22:00 Ringers, Lactated IV 01/15/21 19:50 999 mls/hr .BOLUS ONE Administration Sodium Chloride 10 ml 01/15/21 15:18 01/15/21 15:42 Sodium Chloride 0.9% 10 Ml Syringe FLUSH 10 ml ASDIRECTED PRN Administration Keep Vein Open Re-Assessment/Re-Exam: Patient is now awake alert and oriented. She states she would like to go home however she is not quite ready yet. Will order IV fluids as maintenance. She will likely stay in the emergency department till morning and then be discharged to home. Departure - Departure Time of Disposition: 06:00 Disposition: Home, Self-Care 01 Condition: Good Clinical Impression: Alcohol intoxication Qualifiers: Complication of substance-induced condition: uncomplicated Qualified Code(s): F10.920 - Alcohol use, unspecified with intoxication, uncomplicated - Discharge Information Instructions: Alcohol Intoxication, [id number] Referrals: Renard Verduzco MD [Primary Care Provider] - Forms: ED Department Discharge Additional Instructions: You were seen in the emergency department this evening after ambulance was called and found to intoxicated at home. Lab studies were completed and you are found to have a low potassium level as well as a blood alcohol level of 0.44. You did receive potassium supplementation as well as IV fluids. Recommend that you stop drinking alcohol. Follow-up with your primary care provider. Sepsis Event Note (ED) - Evaluation Sepsis Screening Result: No Definite Risk - My Orders Last 24 Hours: My Active Orders 01/15/21 15:18 Saline Lock Insert [OM.PC] Stat - Assessment/Plan Last 24 Hours: My Active Orders 01/15/21 15:18 Saline Lock Insert [OM.PC] Stat
[2021-01-15 16:43] LABS: ACETAMINOPHEN 0 ug/mL (10-30)
[2021-01-15] MEDS ORDERED: Sodium Chloride 0.9% 1,000 ML IV ONE ×2 (17:00→18:48)
[2021-01-15] MEDS: Potassium Chloride 10 MEQ in Premix Bag 1 BAG IV SCH ×4 (17:15→20:50)
[2021-01-15] MEDS ORDERED: Lactated Ringers 1,000 ML IV ONE (18:50)
== END 2021-01-16 06:00 | disposition home or self-care (01) ==
LOC: JD.ED 15:11
DX: F10.120 Alcohol abuse with intoxication, uncomplicated (principal); E78.00 Pure hypercholesterolemia, unspecified; I10 Essential (primary) hypertension; J45.909 Unspecified asthma, uncomplicated; K21.9 Gastro-esophageal reflux disease without esophagitis; Z88.1 Allergy status to other antibiotic agents; Z88.8 Allergy status to other drugs, medicaments and biological substances; Z79.899 Other long term (current) drug therapy; Y90.0 Blood alcohol level of less than 20 mg/100 ml
CPT/HCPCS: 36415; 80053; 80143; 80179; 80306; 80307; 81003; 83605; 83735; 84443; 85025; 96365; 96366; 99284; J3480; J7030; J7120; J7121; 99285

== ENCOUNTER 2021-01-30 22:19 | Emergency (ER) | payer BC ==
[2021-01-30 22:26] VITALS: BP 161/89; PULSE 116
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
== END 2021-01-30 22:59 ==
LOC: JD.ED 22:19
DX: F10.229 Alcohol dependence with intoxication, unspecified (principal); I10 Essential (primary) hypertension; Z88.1 Allergy status to other antibiotic agents; Z88.8 Allergy status to other drugs, medicaments and biological substances; Z79.899 Other long term (current) drug therapy
CPT/HCPCS: 82947; 99283

== ENCOUNTER 2021-01-31 09:05 | Emergency (ER) | payer BC ==
[2021-01-31] MEDS ORDERED: Sodium Chloride 0.9% 10 ML Syringe FLUSH PRN (09:22)
[2021-01-31] MEDS ORDERED: Dextrose 5%-0.9% NaCl 1,000 ML IV SCH (09:30)
[2021-01-31] MEDS ORDERED: LORazepam 2 MG/ML SDV IVPUSH ONE ×3 (09:34→13:05)
[2021-01-31] MEDS ORDERED: Metoclopramide 10 MG/2 ML SDV IVPUSH ONE (09:34)
--- NOTE | 2021-01-31 10:06 | EDM.PDOCBH ---
ED HPI GENERAL MEDICAL PROBLEM - General Chief Complaint: Drug or Alcohol Abuse Stated Complaint: [facility] Time Seen by Provider: 01/31/21 09:11 Source of Information: Reports: Patient History Limitations: Reports: No Limitations - History of Present Illness INITIAL COMMENTS - FREE TEXT/NARRATIVE: 65-year-old female presents to the emergency department today with alcohol withdrawal. This patient is very well-known to this emergency department and has had numerous visits due to alcohol intoxication. Patient states she was on a 6-day blanco and stopped drinking 2 days ago. She states she was drinking 6 shooters of vodka daily. Apparently, the patient got picked up for a DUI and was incarcerated. When she developed symptoms of alcohol withdrawal, the shelter d id bring her to the emergency department. Patient is nauseated and dry heaving and also extremely tremulous. Middle Chest Pain Score (Numeric/FACES): 5 - Related Data Allergies Allergy/AdvReac Type Severity Reaction Status Date / Time levofloxacin [From Levaquin] Allergy Intermediate Rash Verified 01/30/21 22:22 propoxyphene napsylate AdvReac Mild Headache Verified 01/30/21 22:22 [From Darvocet-N] Home Meds: Home Meds Sucralfate [Carafate] 1 gm PO QID 12/22/18 [History] Past Medical History HEENT History: Reports: Impaired Vision Other HEENT History: wears glasses Cardiovascular History: Reports: None, High Cholesterol, Hypertension Respiratory History: Reports: Asthma Gastrointestinal History: Reports: Chronic Diarrhea, GERD, Irritable Bowel Syndrome Genitourinary History: Reports: Urinary Incontinence, UTI, Recurrent CARE MGR History: Reports: Other (See Below) Other CARE MGR History: Patient states she started menopause at 54 yoa Musculoskeletal History: Reports: Arthritis, Other (See Below) Other Musculoskeletal History: knee/shoulder pain Neurological History: Reports: Headaches, Chronic Other Neuro History: headaches Psychiatric History: Reports: Addiction, Anxiety, Bipolar, Depression, Eating Disorders Other Psychiatric History: eating disorder at age 14 Endocrine/Metabolic History: Reports: Osteoporosis Hematologic History: Reports: None Immunologic History: Reports: Other (See Below) Other Immunologic History: recurrent staph infections Oncologic (Cancer) History: Reports: None - Infectious Disease History Infectious Disease History: Reports: Chicken Pox, Measles - Past Surgical History Head Surgeries/Procedures: Reports: None HEENT Surgical History: Reports: Adenoidectomy, Oral Surgery, Tonsillectomy, Other (See Below) Other HEENT Surgeries/Procedures: facial surgery to fractures on right side of face from fall. Cardiovascular Surgical History: Reports: None Respiratory Surgical History: Reports: None Other Respiratory Surgeries/Procedures: per ER report GI Surgical History: Reports: Appendectomy Other GI Surgeries/Procedures: GI bleed Female Surgical History: Reports: None Other Female Surgeries/Procedures: Patient states she had her ureters dilated in [facility] Musculoskeletal Surgical History: Reports: ORIF, Shoulder Surgery, Other (See Below) Other Musculoskeletal Surgeries/Procedures:: wrist ORIF Social & Family History - Family History Family Medical History: No Pertinent Family History Cardiac: Reports: None Psychiatric: Reports: Other (See Below) Other Psychiatric Family History: 2 uncles ETOH abuse - Caffeine Use Caffeine Use: Reports: Soda Other Caffeine Use: Unknown if ever used due to being currently intoxicated. 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 ED EXAM, BEHAVIORAL HEALTH - Physical Exam Exam: See Below Exam Limited By: No Limitations General Appearance: Alert, WD/WN, Mild Distress (Extremely tremulous and nauseated with dry heaving noted) Eye Exam: Left Eye: Conjunctival Injection, Bilateral Eye: PERRL Ears: Normal External Exam, Hearing Grossly Normal Nose: Normal Inspection Throat/Mouth: Normal Inspection, Normal Lips, Normal Voice, No Airway Compromise Head: Atraumatic Neck: Normal Inspection, Supple Respiratory/Chest: No Respiratory Distress, Lungs Clear, Normal Breath Sounds, No Accessory Muscle Use, Chest Non-Tender Cardiovascular: Normal Peripheral Pulses, Regular Rate, Rhythm, No Edema, No Murmur GI/Abdominal: Normal Bowel Sounds, Soft, Non-Tender, No Distention (Female) Exam: Deferred Rectal (Female) Exam: Deferred Back Exam: Normal Inspection Extremities: Normal Inspection, Normal Range of Motion, Non-Tender, No Pedal Edema, Normal Capillary Refill Neurological: Alert, Normal Mood/Affect, Normal Cognition, Oriented x 3 Psychiatric: Alert, Normal Affect, Normal Cognition, Normal Mood, Oriented Skin Exam: Warm, Dry, Intact, Normal color, No rash #1 Interpretation EKG Date: 01/31/21 Time: 09:24 Rhythm: NSR Rate (Beats/Min): 123 [place]: Normal P-Wave: Present QRS: Normal ST-T: Normal QT: Normal EKG Interpretation Comments: Per Dr. Vieyra interpretation: Sinus tachycardia at 123 bpm; probable left atrial hypertrophy; Q waves V1 and V2old anteroseptal VT; QTC severely prolonged; decreased voltage limb leads; diffuse early repolarization pattern. COURSE, BEHAVIORAL HEALTH COMP - Course Vital Signs: Last Vital Signs Temp 97 F 01/31/21 09:13 Pulse 115 H 01/31/21 09:13 Resp 16 01/31/21 09:13 BP 146/81 H 01/31/21 09:13 Pulse Ox 95 01/31/21 09:13 Orders, Labs, Meds: Active Orders 24 hr Category Date Time Status DRUG SCREEN, URINE [URCHEM] Stat Lab 01/31/21 09:22 Ordered UA RFX EVAN AND CULT IF INDIC [URIN] Stat Lab 01/31/21 09:22 Ordered Dextrose 5%-0.9% NaCl [Dextrose 5%-Normal Saline] 1,000 Med 01/31/21 09:30 Active ml IV ASDIRECTED Magnesium Oxide Med 01/31/21 15:25 Once 800 mg PO ONETIME ONE Magnesium Sulfate/Water [Magnesium Sulfate in Water 4 Med 01/31/21 11:43 Active GM/50 ML] 4 gm Premix Bag 1 bag IV ONETIME Sodium Chloride 0.9% [Normal Saline] 1,000 ml Med 01/31/21 14:30 Active IV ASDIRECTED Sodium Chloride 0.9% [Saline Flush] Med 01/31/21 09:22 Active 10 ml FLUSH ASDIRECTED PRN Saline Lock Insert [OM.PC] Stat Oth 01/31/21 09:22 Ordered Medication Orders Dextrose/Sodium Chloride (Dextrose 5%-Normal Saline) 1,000 mls @ 999 mls/hr IV ASDIRECTED STEPHANE Last Admin: 01/31/21 09:48 Dose: 999 mls/hr Documented by: ALBERT Magnesium Sulfate 4 gm/ Premix 50 mls @ 12.5 mls/hr IV ONETIME ONE Stop: 01/31/21 15:42 Last Admin: 01/31/21 11:56 Dose: 12.5 mls/hr Documented by: ALBERT Sodium Chloride (Normal Saline) 1,000 mls @ 150 mls/hr IV ASDIRECTED [facility] Magnesium Oxide (Magnesium Oxide 400 Mg Tab) 800 mg PO ONETIME ONE Stop: 01/31/21 15:26 Sodium Chloride (Sodium Chloride 0.9% 10 Ml Syringe) 10 ml FLUSH ASDIRECTED PRN PRN Reason: Keep Vein Open Last Admin: 01/31/21 09:48 Dose: 10 ml Documented by: ALBERT Laboratory Tests 01/31/21 01/31/21 01/31/21 Range/Units 09:40 09:40 09:40 WBC 10.53 H (3.98-10.04) K/mm3 RBC 3.90 L (3.98-5.22) M/mm3 Hgb 12.0 D (11.2-15.7) gm/dl Hct 35.3 (34.1-44.9) % MCV 90.5 D (79.4-94.8) fl MCH 30.8 (25.6-32.2) pg MCHC 34.0 (32.2-35.5) g/dl RDW Std Deviation 49.3 H (36.4-46.3) fL Plt Count 184 D (182-369) K/mm3 MPV 9.8 (9.4-12.3) fl Neut % (Auto) 82.1 H (34.0-71.1) % Lymph % (Auto) 9.0 L (19.3-51.7) % [place] % (Auto) 8.7 (4.7-12.5) % Eos % (Auto) 0 L (0.7-5.8) Baso % (Auto) 0.1 (0.1-1.2) % Neut # (Auto) 8.64 H (1.56-6.13) K/mm3 Lymph # (Auto) 0.95 L (1.18-3.74) K/mm3 [place] # (Auto) 0.92 H (0.24-0.36) K/mm3 Eos # (Auto) 0.00 L (0.04-0.36) K/mm3 Baso # (Auto) 0.01 (0.01-0.08) K/mm3 Sodium 135 L D (136-145) mEq/L Potassium 3.3 L (3.5-5.1) mEq/L Chloride 92 L D (98-107) mEq/L Carbon Dioxide 21 (21-32) mEq/L Anion Gap 25.3 H (5-15) BUN 11 (7-18) mg/dL Creatinine 0.6 (0.55-1.02) mg/dL Est Cr Clr Drug Dosing TNP Estimated GFR (MDRD) > 60 (>60) mL/min BUN/Creatinine Ratio 18.3 H (14-18) Glucose 68 L (70-99) mg/dL Lactic Acid 7.8 H* (0.4-2.0) mmol/L Calcium 8.0 L (8.5-10.1) mg/dL Magnesium 0.9 L (1.8-2.4) mg/dL Total Bilirubin 1.1 H (0.2-1.0) mg/dL AST 86 H (15-37) U/L ALT 35 (14-59) U/L Alkaline Phosphatase 104 (46-116) U/L Total Protein 5.9 L (6.4-8.2) g/dl Albumin 3.6 (3.4-5.0) g/dl Globulin 2.3 gm/dL Albumin/Globulin Ratio 1.6 (1-2) TSH 3rd Generation 1.667 (0.358-3.74) uIU/mL Salicylates (2.8-20) mg/dL Acetaminophen 0 L (10-30) ug/mL Ethyl Alcohol 0.05 (0.00) gm% SARS-CoV-2 RNA (DODIE) (NEGATIVE) 01/31/21 01/31/21 01/31/21 Range/Units 09:40 09:45 12:53 WBC (3.98-10.04) K/mm3 RBC (3.98-5.22) M/mm3 Hgb (11.2-15.7) gm/dl Hct (34.1-44.9) % MCV (79.4-94.8) fl MCH (25.6-32.2) pg MCHC (32.2-35.5) g/dl RDW Std Deviation (36.4-46.3) fL Plt Count (182-369) K/mm3 MPV (9.4-12.3) fl Neut % (Auto) (34.0-71.1) % Lymph % (Auto) (19.3-51.7) % [place] % (Auto) (4.7-12.5) % Eos % (Auto) (0.7-5.8) Baso % (Auto) (0.1-1.2) % Neut # (Auto) (1.56-6.13) K/mm3 Lymph # (Auto) (1.18-3.74) K/mm3 [place] # (Auto) (0.24-0.36) K/mm3 Eos # (Auto) (0.04-0.36) K/mm3 Baso # (Auto) (0.01-0.08) K/mm3 Sodium (136-145) mEq/L Potassium (3.5-5.1) mEq/L Chloride (98-107) mEq/L Carbon Dioxide (21-32) mEq/L Anion Gap (5-15) BUN (7-18) mg/dL Creatinine (0.55-1.02) mg/dL Est Cr Clr Drug Dosing Estimated GFR (MDRD) (>60) mL/min BUN/Creatinine Ratio (14-18) Glucose (70-99) mg/dL Lactic Acid 1.2 (0.4-2.0) mmol/L Calcium (8.5-10.1) mg/dL Magnesium (1.8-2.4) mg/dL Total Bilirubin (0.2-1.0) mg/dL AST (15-37) U/L ALT (14-59) U/L Alkaline Phosphatase (46-116) U/L Total Protein (6.4-8.2) g/dl Albumin (3.4-5.0) g/dl Globulin gm/dL Albumin/Globulin Ratio (1-2) TSH 3rd Generation (0.358-3.74) uIU/mL Salicylates < 0.2 L (2.8-20) mg/dL Acetaminophen (10-30) ug/mL Ethyl Alcohol (0.00) gm% SARS-CoV-2 RNA (DODIE) Negative (NEGATIVE) Medications Generic Name Dose Route Start Last Admin Trade Name Freq PRN Reason Stop Dose Admin Dextrose/Sodium Chloride 1,000 mls @ 999 mls/hr 01/31/21 09:30 01/31/21 09:48 Dextrose 5%-Normal Saline IV 999 mls/hr ASDIRECTED STEPHANE Administration Magnesium Sulfate 4 gm/ Premix 50 mls @ 12.5 mls/hr 01/31/21 11:43 01/31/21 11:56 IV 01/31/21 15:42 12.5 mls/hr ONETIME ONE Administration Sodium Chloride 1,000 mls @ 150 mls/hr 01/31/21 14:30 Normal Saline IV ASDIRECTED STEPHANE Magnesium Oxide 800 mg 01/31/21 15:25 Magnesium Oxide 400 Mg Tab PO 01/31/21 15:26 ONETIME ONE Sodium Chloride 10 ml 01/31/21 09:22 01/31/21 09:48 Sodium Chloride 0.9% 10 Ml Syringe FLUSH 10 ml ASDIRECTED PRN Administration Keep Vein Open Discontinued Medications Generic Name Dose Route Start Last Admin Trade Name Freq PRN Reason Stop Dose Admin Sodium Chloride 1,000 mls @ 999 mls/hr 01/31/21 10:48 01/31/21 11:33 Normal Saline IV 01/31/21 11:48 999 mls/hr ONETIME ONE Administration Sodium Chloride 1,000 mls @ 999 mls/hr 01/31/21 12:46 01/31/21 12:56 Normal Saline IV 01/31/21 13:46 999 mls/hr ONETIME ONE Administration Lorazepam 1 mg 01/31/21 09:34 01/31/21 09:48 Lorazepam 2 Mg/Ml Sdv IVPUSH 01/31/21 09:35 1 mg ONETIME ONE Administration Lorazepam 1 mg 01/31/21 10:59 01/31/21 11:06 Lorazepam 2 Mg/Ml Sdv IVPUSH 01/31/21 11:00 1 mg ONETIME ONE Administration Lorazepam 1 mg 01/31/21 13:05 01/31/21 13:19 Lorazepam 2 Mg/Ml Sdv IVPUSH 01/31/21 13:06 1 mg ONETIME ONE Administration Metoclopramide HCl 7.5 mg 01/31/21 09:34 01/31/21 09:48 Metoclopramide 10 Mg/2 Ml Sdv IVPUSH 01/31/21 09:35 7.5 mg ONETIME ONE Administration Potassium Chloride 40 meq 01/31/21 10:52 01/31/21 10:57 Potassium Chloride 20 Meq Tab.Er PO 01/31/21 10:53 40 meq ONETIME ONE Administration Re-Assessment/Re-Exam: Patient's lactic acid comes back significantly elevated. She will need a few liters of IV fluids. Will order a liter of normal saline wide open. We will also give her 40 milliequivalents of potassium orally. 01/31/2021 1320 Patient is requesting to go to medical detox at [facility] in my [facility] and then to inpatient psych. She states she has been there in the past and would like to return there if at all possible. I did phone [facility] in my [facility] and they state that they do not have any beds available at this time. 01/31/2021 1522 Nursing staff informs me that [facility] has been here to evaluate the patient however they are not wanting to take her into their service to the fact that she becomes weak and unable to ambulate independently when she detoxes from alcohol which is a requirement at their facility. Nursing staff then also informs me that the patient is now requesting to be discharged to home. Patient has received 3-1/2 L of IV fluids as well as IV and oral magnesium for supplementation for hypomagnesemia. Departure - Departure Time of Disposition: 15:26 Disposition: Home, Self-Care 01 Condition: Fair Clinical Impression: Alcoholism /alcohol abuse - Discharge Information Instructions: Alcohol Abuse and Dependence Information, Adult, Finding Treatment for Addiction Referrals: PCP,None [Ordering Only Provider] - Forms: ED Department Discharge Additional Instructions: You were seen in the emergency department today with alcohol withdrawal symptoms. You were found to be severely dehydrated and received 3-1/2 L of IV fluids. Your magnesium levels were also significantly low so you did receive IV and oral magnesium supplementation. Ativan was also given for withdrawal symptoms as well as Reglan for the nausea. You then did elect to go home. YOU NEED TO STOP DRINKING ALCOHOL. Recommend you follow-up with [facility] for assistance with sobriety. Drink plenty of Gatorade and/or Powerade to replenish your electrolytes. Be sure to eat 3 meals a day as well as drink plenty water. Should your condition worsen or change, do not hesitate returning to the emergency department. Sepsis Event Note (ED) - Evaluation Sepsis Screening Result: No Definite Risk - Focused Exam Vital Signs: Vital Signs Temp Pulse Resp BP Pulse Ox 01/31/21 09:13 97 F 115 H 16 146/81 H 95 - My Orders Last 24 Hours: My Active Orders 01/31/21 09:22 DRUG SCREEN, URINE [URCHEM] Stat UA RFX EVAN AND CULT IF INDIC [URIN] Stat Sodium Chloride 0.9% [Saline Flush] 10 ml FLUSH ASDIRECTED PRN Saline Lock Insert [OM.PC] Stat 01/31/21 09:30 Dextrose 5%-0.9% NaCl [Dextrose 5%-Normal Saline] 1,000 ml IV ASDIRECTED 01/31/21 11:43 Magnesium Sulfate/Water [Magnesium Sulfate in Water 4 GM/50 ML] 4 gm Premix Bag 1 bag IV ONETIME 01/31/21 14:30 Sodium Chloride 0.9% [Normal Saline] 1,000 ml IV ASDIRECTED 01/31/21 15:25 Magnesium Oxide 800 mg PO ONETIME ONE - Assessment/Plan Last 24 Hours: My Active Orders 01/31/21 09:22 DRUG SCREEN, URINE [URCHEM] Stat UA RFX EVAN AND CULT IF INDIC [URIN] Stat Sodium Chloride 0.9% [Saline Flush] 10 ml FLUSH ASDIRECTED PRN Saline Lock Insert [OM.PC] Stat 01/31/21 09:30 Dextrose 5%-0.9% NaCl [Dextrose 5%-Normal Saline] 1,000 ml IV ASDIRECTED 01/31/21 11:43 Magnesium Sulfate/Water [Magnesium Sulfate in Water 4 GM/50 ML] 4 gm Premix Bag 1 bag IV ONETIME 01/31/21 14:30 Sodium Chloride 0.9% [Normal Saline] 1,000 ml IV ASDIRECTED 01/31/21 15:25 Magnesium Oxide 800 mg PO ONETIME ONE
[2021-01-31 10:39] LABS: ACETAMINOPHEN 0 ug/mL (10-30)
[2021-01-31] MEDS ORDERED: Sodium Chloride 0.9% 1,000 ML IV ONE ×2 (10:48→12:46)
[2021-01-31] MEDS ORDERED: Potassium Chloride 20 MEQ Tab.ER PO ONE (10:52)
[2021-01-31] MEDS ORDERED: Magnesium Sulfate/Water 4 GM in Premix Bag 1 BAG IV ONE (11:43)
[2021-01-31] MEDS ORDERED: Sodium Chloride 0.9% 1,000 ML IV SCH (14:30)
[2021-01-31] MEDS ORDERED: Magnesium Oxide 400 MG Tab PO ONE (15:25)
[2021-01-31] MEDS ORDERED: Sodium Chloride 0.9% 1,000 ML IV STA (18:44)
[2021-01-31] MEDS ORDERED: LORazepam 1 MG Tab PO ONE (22:37)
[2021-02-01] MEDS ORDERED: Loperamide 2 MG Cap PO ONE (08:47)
[2021-02-01 11:04] VITALS: BP 128/85; PULSE 93
== END 2021-02-01 13:25 | disposition other institution (70) ==
LOC: JD.ED 09:05
DX: F10.229 Alcohol dependence with intoxication, unspecified (principal); F10.230 Alcohol dependence with withdrawal, uncomplicated; I10 Essential (primary) hypertension; Z88.1 Allergy status to other antibiotic agents; Z88.8 Allergy status to other drugs, medicaments and biological substances; Z20.822 Contact with and (suspected) exposure to COVID-19; Y90.5 Blood alcohol level of 100-119 mg/100 ml
CPT/HCPCS: 36415; 80053; 80143; 80179; 80307; 83605; 83735; 84443; 85025; 87635; 93005; 96365; 96366; 96375; 96376; 99285; A9270; J2060; J2765; J3475; J7030; J7042; U0002

== ENCOUNTER 2021-02-07 07:15 | Inpatient (IN) | payer BC ==
[2021-02-07] MEDS ORDERED: Sodium Chloride 0.9% 10 ML Syringe FLUSH PRN ×2 (07:41→17:59)
[2021-02-07] MEDS ORDERED: Sodium Chloride 0.9% 1,000 ML IV SCH ×2 (07:45→13:45)
[2021-02-07] MEDS ORDERED: Metoclopramide 10 MG/2 ML SDV IVPUSH ONE (08:47)
[2021-02-07] MEDS ORDERED: LORazepam 2 MG/ML SDV IVPUSH ONE ×2 (08:47→17:36)
[2021-02-07] MEDS ORDERED: Magnesium Sulfate/Water 4 GM in Premix Bag 1 BAG IV ONE (09:33)
--- NOTE | 2021-02-07 09:35 | EDM.PDOCBH ---
ED HPI GENERAL MEDICAL PROBLEM - General Chief Complaint: Drug or Alcohol Abuse Stated Complaint: DIANA GUSTAFSON Time Seen by Provider: 02/07/21 08:10 Source of Information: Reports: Patient History Limitations: Reports: No Limitations - History of Present Illness INITIAL COMMENTS - FREE TEXT/NARRATIVE: 65-year-old female presents the emergency department today via Diana calderon with alcohol intoxication stating that she is detoxing from alcohol. Patient is well-known to this emergency department and has been seen here on a monthly to weekly to almost daily basis due to alcohol intoxication. Patient states she has been on a 3-day binge generally consuming 5-6 shooters of vodka at a time. She states she has not had a drink since last evening and is detoxing and so elected to come to the emergency department. Patient smells strongly of urine. Generalized Pain Score (Numeric/FACES): 5 - Related Data Allergies Allergy/AdvReac Type Severity Reaction Status Date / Time levofloxacin [From Levaquin] Allergy Intermediate Rash Verified 01/30/21 22:22 propoxyphene napsylate AdvReac Mild Headache Verified 02/07/21 07:20 [From Darvocet-N] Home Meds: Home Meds Sucralfate [Carafate] 1 gm PO QID 12/22/18 [History] Past Medical History HEENT History: Reports: Impaired Vision Other HEENT History: wears glasses Cardiovascular History: Reports: None, High Cholesterol, Hypertension Respiratory History: Reports: Asthma Gastrointestinal History: Reports: Chronic Diarrhea, GERD, Irritable Bowel Syndrome Genitourinary History: Reports: Urinary Incontinence, UTI, Recurrent PIPE INSULATOR History: Reports: Other (See Below) Other PIPE INSULATOR History: Patient states she started menopause at 54 yoa Musculoskeletal History: Reports: Arthritis, Other (See Below) Other Musculoskeletal History: knee/shoulder pain Neurological History: Reports: Headaches, Chronic Other Neuro History: headaches Psychiatric History: Reports: Addiction, Anxiety, Bipolar, Depression, Eating Disorders Other Psychiatric History: eating disorder at age 14 Endocrine/Metabolic History: Reports: Osteoporosis Hematologic History: Reports: None Immunologic History: Reports: Other (See Below) Other Immunologic History: recurrent staph infections Oncologic (Cancer) History: Reports: None - Infectious Disease History Infectious Disease History: Reports: Chicken Pox, Measles - Past Surgical History Head Surgeries/Procedures: Reports: None HEENT Surgical History: Reports: Adenoidectomy, Oral Surgery, Tonsillectomy, Other (See Below) Other HEENT Surgeries/Procedures: facial surgery to fractures on right side of face from fall. Cardiovascular Surgical History: Reports: None Respiratory Surgical History: Reports: None Other Respiratory Surgeries/Procedures: per ER report GI Surgical History: Reports: Appendectomy Other GI Surgeries/Procedures: GI bleed Female Surgical History: Reports: None Other Female Surgeries/Procedures: Patient states she had her ureters dilated in [facility] Musculoskeletal Surgical History: Reports: ORIF, Shoulder Surgery, Other (See Below) Other Musculoskeletal Surgeries/Procedures:: wrist ORIF Social & Family History - Family History Family Medical History: No Pertinent Family History Cardiac: Reports: None Psychiatric: Reports: Other (See Below) Other Psychiatric Family History: 2 uncles ETOH abuse - Caffeine Use Caffeine Use: Reports: Soda Other Caffeine Use: Unknown if ever used due to being currently intoxicated. 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[employer]) ED ROS GENERAL - Review of Systems Review Of Systems: See Below Constitutional: Reports: No Symptoms HEENT: Reports: Glasses Respiratory: Reports: No Symptoms Cardiovascular: Reports: No Symptoms Endocrine: Reports: No Symptoms GI/Abdominal: Reports: No Symptoms : Reports: Incontinence (Smells strongly of urine) Musculoskeletal: Reports: No Symptoms Skin: Reports: No Symptoms Neurological: Reports: No Symptoms Psychiatric: Reports: No Symptoms Hematologic/Lymphatic: Reports: No Symptoms Immunologic: Reports: No Symptoms ED EXAM, BEHAVIORAL HEALTH - Physical Exam Exam: See Below Exam Limited By: No Limitations General Appearance: Alert, WD/WN, No Apparent Distress Ears: Normal External Exam, Hearing Grossly Normal Nose: Normal Inspection Throat/Mouth: Normal Inspection, Normal Lips, Normal Voice, No Airway Compromise Head: Atraumatic Neck: Normal Inspection, Supple Respiratory/Chest: No Respiratory Distress, Lungs Clear, Normal Breath Sounds, No Accessory Muscle Use, Chest Non-Tender Cardiovascular: Normal Peripheral Pulses, Regular Rate, Rhythm, No Edema, No Murmur GI/Abdominal: Normal Bowel Sounds, Soft, Non-Tender, No Distention (Female) Exam: Deferred Rectal (Female) Exam: Deferred Back Exam: Normal Inspection Extremities: Normal Inspection Neurological: Alert, Normal Mood/Affect, Oriented x 3 Psychiatric: Alert, Normal Affect, Normal Cognition, Normal Mood, Oriented Skin Exam: Warm, Dry, Intact, Normal color, No rash COURSE, BEHAVIORAL HEALTH COMP - Course Vital Signs: Last Vital Signs Temp 98.9 F 02/08/21 06:00 Pulse 107 H 02/08/21 06:00 Resp 26 H 02/08/21 06:00 BP 128/73 02/08/21 06:00 Pulse Ox 96 02/08/21 06:00 Orders, Labs, Meds: Active Orders 24 hr Category Date Time Status Admission Status [Patient Status] [ADT] Routine ADT 02/07/21 16:12 Active Peripheral IV Care [RC] Q2HR Care 02/07/21 07:42 Active CULTURE URINE [MREF] Stat Lab 02/08/21 05:10 Received UA W/MICROSCOPIC [URIN] Stat Lab 02/08/21 05:10 Results Sodium Chloride 0.9% [Saline Flush] Med 02/07/21 07:41 Active 10 ml FLUSH ASDIRECTED PRN Peripheral IV Insertion Adult [OM.PC] Stat Oth 02/07/21 07:41 Ordered Medication Orders Docusate Sodium (Docusate Sodium 100 Mg Cap) 100 mg PO BID PRN PRN Reason: Constipation Folic Acid (Folic Acid 1 Mg Tab) 1 mg PO DAILY [facility] Last Admin: 02/08/21 08:08 Dose: 1 mg Documented by: MARIAA Heparin Sodium (Porcine) (Heparin Sodium 5,000 Units/Ml Vial) 5,000 units SUBCUT Q8H [facility] Last Admin: 02/08/21 01:55 Dose: 5,000 units Documented by: Admin: 02/07/21 20:51 Dose: Not Given Documented by: JADEN Lactated Ringer's (Ringers, Lactated) 1,000 mls @ 100 mls/hr IV ASDIRECTED [facility] Lorazepam (Lorazepam 2 Mg/Ml Sdv) 1 - 3 mg IV ASDIRECTED PRN; Protocol PRN Reason: Anxiety Lorazepam (Lorazepam 1 Mg Tab) 2 mg PO Q2H [facility] Last Admin: 02/08/21 08:08 Dose: 2 mg Documented by: MARIAA Metoprolol Tartrate (Metoprolol Tartrate 25 Mg Tab) 25 mg PO Q6H PRN PRN Reason: See Label Comment Ondansetron HCl (Ondansetron 4 Mg/2 Ml Sdv) 4 mg IV Q4H PRN PRN Reason: Nausea/Vomiting Last Admin: 02/08/21 05:30 Dose: 4 mg Documented by: Admin: 02/07/21 21:00 Dose: 4 mg Documented by: JADEN Pantoprazole Sodium (Pantoprazole 40 Mg Vial) 40 mg IV Q12HR [facility] Last Admin: 02/08/21 08:08 Dose: 40 mg Documented by: Admin: 02/07/21 20:58 Dose: 40 mg Documented by: JADEN Sodium Chloride (Sodium Chloride 0.9% 10 Ml Syringe) 10 ml FLUSH ASDIRECTED PRN PRN Reason: Keep Vein Open Last Admin: 02/07/21 08:43 Dose: 10 ml Documented by: DONOVAN Sodium Chloride (Sodium Chloride 0.9% 10 Ml Syringe) 10 ml FLUSH 0900,2100 [facility] Last Admin: 02/08/21 08:09 Dose: 10 ml Documented by: Admin: 02/07/21 20:59 Dose: 10 ml Documented by: JADEN Sucralfate (Sucralfate 1 Gm Tab) 1 gm PO QID [facility] Last Admin: 02/08/21 08:08 Dose: 1 gm Documented by: Admin: 02/07/21 20:59 Dose: 1 gm Documented by: JADEN Thiamine HCl (Thiamine 100 Mg Tab) 100 mg PO BEDTIME [facility] Last Admin: 02/07/21 20:59 Dose: 100 mg Documented by: JADEN Laboratory Tests 02/07/21 02/07/21 02/07/21 Range/Units 08:03 08:03 08:03 WBC 5.50 (3.98-10.04) K/mm3 RBC 4.45 (3.98-5.22) M/mm3 Hgb 13.5 D (11.2-15.7) gm/dl Hct 41.6 (34.1-44.9) % MCV 93.5 D (79.4-94.8) fl MCH 30.3 (25.6-32.2) pg MCHC 32.5 (32.2-35.5) g/dl RDW Std Deviation 56.7 H (36.4-46.3) fL Plt Count 128 L (182-369) K/mm3 MPV 10.0 (9.4-12.3) fl Neut % (Auto) 62.5 (34.0-71.1) % Lymph % (Auto) 21.6 (19.3-51.7) % [place] % (Auto) 12.9 H (4.7-12.5) % Eos % (Auto) 2.2 (0.7-5.8) Baso % (Auto) 0.4 (0.1-1.2) % Neut # (Auto) 3.44 (1.56-6.13) K/mm3 Lymph # (Auto) 1.19 (1.18-3.74) K/mm3 [place] # (Auto) 0.71 H (0.24-0.36) K/mm3 Eos # (Auto) 0.12 (0.04-0.36) K/mm3 Baso # (Auto) 0.02 (0.01-0.08) K/mm3 Sodium 137 (136-145) mEq/L Potassium 4.2 (3.5-5.1) mEq/L Chloride 96 L (98-107) mEq/L Carbon Dioxide 25 (21-32) mEq/L Anion Gap 20.2 H (5-15) BUN 12 (7-18) mg/dL Creatinine 0.6 (0.55-1.02) mg/dL Est Cr Clr Drug Dosing TNP Estimated GFR (MDRD) > 60 (>60) mL/min BUN/Creatinine Ratio 20.0 H (14-18) Glucose 70 (70-99) mg/dL Calcium 8.5 (8.5-10.1) mg/dL Magnesium 1.3 L (1.8-2.4) mg/dL Total Bilirubin 0.5 (0.2-1.0) mg/dL AST 184 H (15-37) U/L ALT 134 H (14-59) U/L Alkaline Phosphatase 124 H (46-116) U/L Total Protein 6.3 L (6.4-8.2) g/dl Albumin 3.4 (3.4-5.0) g/dl Globulin 2.9 gm/dL Albumin/Globulin Ratio 1.2 (1-2) Ethyl Alcohol 0.26 (0.00) gm% Medications Generic Name Dose Route Start Last Admin Trade Name Freq PRN Reason Stop Dose Admin Docusate Sodium 100 mg 02/07/21 17:56 Docusate Sodium 100 Mg Cap PO BID PRN Constipation Folic Acid 1 mg 02/08/21 09:00 02/08/21 08:08 Folic Acid 1 Mg Tab PO 1 mg DAILY [facility] Administration Heparin Sodium (Porcine) 5,000 units 02/07/21 18:00 02/08/21 01:55 Heparin Sodium 5,000 Units/Ml Vial SUBCUT 5,000 units Q8H [facility] Administration Lactated Ringer's 1,000 mls @ 100 mls/hr 02/08/21 08:00 Ringers, Lactated IV ASDIRECTED [facility] Lorazepam 1 - 3 mg 02/07/21 21:49 Lorazepam 2 Mg/Ml Sdv IV ASDIRECTED PRN Anxiety Protocol Lorazepam 2 mg 02/08/21 08:00 02/08/21 08:08 Lorazepam 1 Mg Tab PO 2 mg Q2H [facility] Administration Metoprolol Tartrate 25 mg 02/07/21 17:59 Metoprolol Tartrate 25 Mg Tab PO Q6H PRN See Label Comment Ondansetron HCl 4 mg 02/07/21 17:56 02/08/21 05:30 Ondansetron 4 Mg/2 Ml Sdv IV 4 mg Q4H PRN Administration Nausea/Vomiting Pantoprazole Sodium 40 mg 02/07/21 21:00 02/08/21 08:08 Pantoprazole 40 Mg Vial IV 40 mg Q12HR [facility] Administration Sodium Chloride 10 ml 02/07/21 07:41 02/07/21 08:43 Sodium Chloride 0.9% 10 Ml Syringe FLUSH 10 ml ASDIRECTED PRN Administration Keep Vein Open Sodium Chloride 10 ml 02/07/21 21:00 02/08/21 08:09 Sodium Chloride 0.9% 10 Ml Syringe FLUSH 10 ml 0900,2100 [facility] Administration Sucralfate 1 gm 02/07/21 21:00 02/08/21 08:08 Sucralfate 1 Gm Tab PO 1 gm QID [facility] Administration Thiamine HCl 100 mg 02/07/21 21:00 02/07/21 20:59 Thiamine 100 Mg Tab PO 100 mg BEDTIME [facility] Administration Discontinued Medications Generic Name Dose Route Start Last Admin Trade Name Freq PRN Reason Stop Dose Admin Sodium Chloride 1,000 mls @ 999 mls/hr 02/07/21 07:45 02/07/21 08:43 Normal Saline IV 999 mls/hr ONETIME [facility] Administration Magnesium Sulfate 4 gm/ Premix 50 mls @ 12.5 mls/hr 02/07/21 09:33 02/07/21 10:23 IV 02/07/21 13:32 12.5 mls/hr ONETIME ONE Administration Dextrose/Lactated Ringer's 1,000 mls @ 999 mls/hr 02/07/21 09:45 02/07/21 10:23 Dextrose 5%-Lactated Ringers IV 999 mls/hr ASDIRECTED [facility] Administration Sodium Chloride 1,000 mls @ 150 mls/hr 02/07/21 13:45 Normal Saline IV ASDIRECTED [facility] Sodium Chloride 1,000 mls @ 150 mls/hr 02/07/21 17:25 02/07/21 17:26 Normal Saline IV 02/08/21 00:04 150 mls/hr STAT STA Administration Lactated Ringer's 1,000 mls @ 200 mls/hr 02/07/21 20:15 02/08/21 07:53 Ringers, Lactated IV 100 mls/hr ASDIRECTED [facility] Infusion Lorazepam 1 mg 02/07/21 08:47 02/07/21 09:07 Lorazepam 2 Mg/Ml Sdv IVPUSH 02/07/21 08:48 1 mg ONETIME ONE Administration Lorazepam 1 mg 02/07/21 13:40 02/07/21 14:01 Lorazepam 1 Mg Tab PO 02/07/21 13:41 1 mg ONETIME ONE Administration Lorazepam 4 mg 02/07/21 17:36 02/07/21 17:58 Lorazepam 2 Mg/Ml Sdv IVPUSH 02/07/21 17:37 4 mg ONETIME ONE Administration Lorazepam 4 mg 02/07/21 18:00 02/07/21 21:53 Lorazepam 2 Mg/Ml Sdv IVPUSH 4 mg Q2H [facility] Administration Lorazepam 0 mg 02/07/21 18:00 Lorazepam 2 Mg/Ml Sdv IV ASDIRECTED [facility] Protocol Lorazepam 4 mg 02/07/21 22:00 02/08/21 06:15 Lorazepam 2 Mg/Ml Sdv IVPUSH 4 mg Q4H [facility] Administration Metoclopramide HCl 7.5 mg 02/07/21 08:47 02/07/21 09:07 Metoclopramide 10 Mg/2 Ml Sdv IVPUSH 02/07/21 08:48 7.5 mg ONETIME ONE Administration Ondansetron HCl 4 mg 02/07/21 17:37 02/07/21 18:00 Ondansetron 4 Mg/2 Ml Sdv IVPUSH 02/07/21 17:38 4 mg ONETIME ONE Administration Sodium Chloride 10 ml 02/07/21 17:59 Sodium Chloride 0.9% 10 Ml Syringe FLUSH ASDIRECTED PRN Keep Vein Open Re-Assessment/Re-Exam: [facility] will be a peer to evaluate the patient at 2 PM today. Vulnerable adult form has been filed on this patient. Re-Assessment/Re-Exam Date: 02/07/21 Departure - Departure Time of Disposition: 16:03 Disposition: Admitted As Inpatient 68 Condition: Fair Clinical Impression: Acute alcohol intoxication Qualifiers: Complication of substance-induced condition: with delirium Qualified Code(s): F10.921 - Alcohol use, unspecified with intoxication delirium - Discharge Information Sepsis Event Note (ED) - Evaluation Sepsis Screening Result: No Definite Risk - My Orders Last 24 Hours: My Active Orders 02/07/21 16:12 Admission Status [Patient Status] [ADT] Routine 02/08/21 05:10 CULTURE URINE [MREF] Stat UA W/MICROSCOPIC [URIN] Stat - Assessment/Plan Last 24 Hours: My Active Orders 02/07/21 16:12 Admission Status [Patient Status] [ADT] Routine 02/08/21 05:10 CULTURE URINE [MREF] Stat UA W/MICROSCOPIC [URIN] Stat
[2021-02-07] MEDS ORDERED: Dextrose 5%-Lactated Ringers 1,000 ML IV SCH (09:45)
[2021-02-07] MEDS ORDERED: LORazepam 1 MG Tab PO ONE (13:40)
[2021-02-07] MEDS ORDERED: Sodium Chloride 0.9% 1,000 ML IV STA (17:25)
[2021-02-07] MEDS ORDERED: Ondansetron 4 MG/2 ML SDV IVPUSH ONE (17:37)
[2021-02-07] MEDS ORDERED: Docusate Sodium 100 MG Cap PO PRN (17:56)
[2021-02-07] MEDS ORDERED: Metoprolol Tartrate 25 MG Tab PO PRN (17:59)
[2021-02-07] MEDS ORDERED: LORazepam 2 MG/ML SDV IV SCH (18:00)
--- NOTE | 2021-02-07 18:07 | PCM.HP.2 ---
H&P History of Present Illness - General Date of Service: 02/07/21 Admit Problem/Dx: Admission Diagnosis/Problem Admission Diagnosis/Problem Alcohol abuse Source of Information: Patient, Provider History Limitations: Reports: No Limitations - History of Present Illness Initial Comments - Free Text/Narative: 65-year-old female with a past medical history as listed below who is well-known to this hospital for multiple admissions regarding alcohol abuse and withdrawal, who presents again today in a drunken state with an alcohol level of 250. The patient is not very forthcoming about how much alcohol she really drinks. She even states that her last drink was yesterday morning even though clearly she shows up intoxicated today. She showed up earlier this morning. Supposedly she only drinks 1 to 2 ounces of hard liquor at a time. She does not quantify how many she takes a day. She is very adamant that she only uses shooters of alcohol at a time. She denies any mixed drinks. She has had ongoing psychiatric issues as far as depression which has led her to drinking over the past 20 years heavily. She has been intubated before. She denies any prior seizure. She has been in and out of our emergency department multiple times over the past couple of months and in the [facility] rehab facility for which she was just discharged from about 3 days ago. She has been drinking since discharge. She states that she has felt awful overall. She has had some nausea. She had an episode of vomiting yesterday. No black or blood noted. Currently she feels shaky and denies any hallucinations. The patient presented earlier this morning. She has been presented to the internal medicine service 9 hours later for admission. Attempts were made to get her to rehab again however they declined her admission. Please see ER notes as to that specific reasoning. The patient last received medications for what appeared to be alcohol withdrawal symptoms approximately 4 hours ago. A 14 point review of systems was attempted with the patient however rather futile as she is only asking to get Ativan and Zofran. She is not providing any further history. CODE STATUS: Reviewed and she wishes to be full code. Generalized Pain Score (Numeric/FACES): 5 - Related Data Allergies/Adverse Reactions: Allergies Allergy/AdvReac Type Severity Reaction Status Date / Time levofloxacin [From Levaquin] Allergy Intermediate Rash Verified 12/06/21 22:22 propoxyphene napsylate AdvReac Mild Headache Verified 02/07/21 07:20 [From Darvocet-N] Home Medications: Home Meds Sucralfate [Carafate] 1 gm PO QID 12/22/18 [History] Past Medical History HEENT History: Reports: Impaired Vision Other HEENT History: wears glasses Cardiovascular History: Reports: None, High Cholesterol, Hypertension Respiratory History: Reports: Asthma Gastrointestinal History: Reports: Chronic Diarrhea, GERD, Irritable Bowel Syndrome Genitourinary History: Reports: Urinary Incontinence, UTI, Recurrent [employer] History: Reports: Other (See Below) Other OB/BYN History: Patient states she started menopause at 54 yoa Musculoskeletal History: Reports: Arthritis, Other (See Below) Other Musculoskeletal History: knee/shoulder pain Neurological History: Reports: Headaches, Chronic Other Neuro History: headaches Psychiatric History: Reports: Addiction, Anxiety, Bipolar, Depression, Eating Disorders Other Psychiatric History: eating disorder at age 14 Endocrine/Metabolic History: Reports: Osteoporosis Hematologic History: Reports: None Immunologic History: Reports: Other (See Below) Other Immunologic History: recurrent staph infections Oncologic (Cancer) History: Reports: None - Infectious Disease History Infectious Disease History: Reports: Chicken Pox, Measles - Past Surgical History Head Surgeries/Procedures: Reports: None HEENT Surgical History: Reports: Adenoidectomy, Oral Surgery, Tonsillectomy, Other (See Below) Other HEENT Surgeries/Procedures: facial surgery to fractures on right side of face from fall. Cardiovascular Surgical History: Reports: None Respiratory Surgical History: Reports: None Other Respiratory Surgeries/Procedures: per ER report GI Surgical History: Reports: Appendectomy Other GI Surgeries/Procedures: GI bleed Female Surgical History: Reports: None Other Female Surgeries/Procedures: Patient states she had her ureters dilated in [facility] Musculoskeletal Surgical History: Reports: ORIF, Shoulder Surgery, Other (See Below) Other Musculoskeletal Surgeries/Procedures:: wrist ORIF Social & Family History - Family History Family Medical History: No Pertinent Family History Cardiac: Reports: None Psychiatric: Reports: Other (See Below) Other Psychiatric Family History: 2 uncles ETOH abuse - Tobacco Use Tobacco Use Status *Q: Unknown Ever Used Tobacco - Caffeine Use Caffeine Use: Reports: Soda Other Caffeine Use: Unknown if ever used due to being currently intoxicated. 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 Exam - Exam Exam: See Below - Vital Signs Vital Signs: Last Vital Signs Temp 98.0 F 02/07/21 07:16 Pulse 82 02/07/21 07:16 Resp 16 02/07/21 07:16 BP 159/89 H 02/07/21 07:16 Pulse Ox 90 L 02/07/21 07:16 - Exam Physical Exam Comments:: General: Awake and alert, in no apparent distress. Nontoxic-appearing. Face is hyperemic. Diffuse tremors. HEENT: Normocephalic, atraumatic. Extra ocular muscles intact. Pupils equal and reactive to light. Nares are patent. Oropharynx clear without erythema or exudate. Tongue is midline. Mucous membranes are dry Neck: Supple without lymphadenopathy. No goiter. Trachea midline. Heart: Sinus tachycardia S1 and S2 heard without murmur or extrasystoles. Lungs: Clear to auscultation bilaterally. No wheezing, rales, rhonchi. Abdomen: Soft, nontender, nondistended. Positive bowel sounds. No CVA tenderness. No suprapubic tenderness. Extremities: Warm and perfused. No clubbing, cyanosis, or edema. Integument: No obvious rash or jaundice. No lymphadenopathy. Neurologic: Cranial nerves II through XII grossly intact. Will answer questions however not very forthcoming about her history. No gross motor or sensory defects. Upper extremity tremors which are exaggerated. Psychiatric: Quite depressed. - Patient Data Lab Results Last 24 hrs: Laboratory Results - last 24 hr 02/07/21 02/07/21 02/07/21 Range/Units 08:03 08:03 08:03 WBC 5.50 (3.98-10.04) K/mm3 RBC 4.45 (3.98-5.22) M/mm3 Hgb 13.5 D (11.2-15.7) gm/dl Hct 41.6 (34.1-44.9) % MCV 93.5 D (79.4-94.8) fl MCH 30.3 (25.6-32.2) pg MCHC 32.5 (32.2-35.5) g/dl RDW Std Deviation 56.7 H (36.4-46.3) fL Plt Count 128 L (182-369) K/mm3 MPV 10.0 (9.4-12.3) fl Neut % (Auto) 62.5 (34.0-71.1) % Lymph % (Auto) 21.6 (19.3-51.7) % [place] % (Auto) 12.9 H (4.7-12.5) % Eos % (Auto) 2.2 (0.7-5.8) Baso % (Auto) 0.4 (0.1-1.2) % Neut # (Auto) 3.44 (1.56-6.13) K/mm3 Lymph # (Auto) 1.19 (1.18-3.74) K/mm3 [place] # (Auto) 0.71 H (0.24-0.36) K/mm3 Eos # (Auto) 0.12 (0.04-0.36) K/mm3 Baso # (Auto) 0.02 (0.01-0.08) K/mm3 Sodium 137 (136-145) mEq/L Potassium 4.2 (3.5-5.1) mEq/L Chloride 96 L (98-107) mEq/L Carbon Dioxide 25 (21-32) mEq/L Anion Gap 20.2 H (5-15) BUN 12 (7-18) mg/dL Creatinine 0.6 (0.55-1.02) mg/dL Est Cr Clr Drug Dosing TNP Estimated GFR (MDRD) > 60 (>60) mL/min BUN/Creatinine Ratio 20.0 H (14-18) Glucose 70 (70-99) mg/dL Calcium 8.5 (8.5-10.1) mg/dL Magnesium 1.3 L (1.8-2.4) mg/dL Total Bilirubin 0.5 (0.2-1.0) mg/dL AST 184 H (15-37) U/L ALT 134 H (14-59) U/L Alkaline Phosphatase 124 H (46-116) U/L Total Protein 6.3 L (6.4-8.2) g/dl Albumin 3.4 (3.4-5.0) g/dl Globulin 2.9 gm/dL Albumin/Globulin Ratio 1.2 (1-2) Ethyl Alcohol 0.26 (0.00) gm% Result Diagrams: 02/07/21 08:03 02/07/21 08:03 Sepsis Event Note - Evaluation Sepsis Screening Result: No Definite Risk - Focused Exam Vital Signs: Vital Signs Temp Pulse Resp BP Pulse Ox 02/07/21 07:16 98.0 F 82 16 159/89 H 90 L Problem List Initiated/Reviewed/Updated: Yes Orders Last 24hrs: Active Orders 24 hr Category Date Time Status Admission Status [Patient Status] [ADT] Routine ADT 02/07/21 16:12 Active Bedrest Bedside Commode [RC] ASDIRECTED Care 02/07/21 17:56 Ordered CIWAA Assessment [RC] Q15M Care 02/07/21 17:59 Ordered CIWAA Assessment [RC] Q1H Care 02/07/21 17:59 Ordered CIWAA Assessment [RC] Q30M Care 02/07/21 17:59 Ordered CIWAA Assessment [RC] Q4H Care 02/07/21 17:59 Ordered Cardiac Monitoring [RC] CONTINUOUS Care 02/07/21 17:57 Ordered Notify Provider [RC] PRN Care 02/07/21 17:59 Ordered Oxygen Therapy [RC] PRN Care 02/07/21 17:56 Ordered Peripheral IV Care [RC] . DIRECTED Care 02/07/21 07:42 Active Peripheral IV Care [RC] . DIRECTED Care 02/07/21 18:00 Ordered Pulse Oximetry [RC] CONTINUOUS Care 02/07/21 17:57 Ordered VTE/DVT Education [RC] PER UNIT ROUTINE Care 02/07/21 17:56 Ordered Vital Signs [RC] Q1HR Care 02/07/21 17:56 Ordered Regular Diet [DIET] Diet 02/07/21 Breakfast Ordered CBC WITH AUTO DIFF [HEME] Routine Lab 02/07/21 17:56 Ordered COMPREHENSIVE METABOLIC PN,CMP [CHEM] Routine Lab 02/07/21 17:56 Ordered UA RFX EVAN AND CULT IF INDIC [URIN] Stat Lab 02/07/21 08:23 Ordered Dextrose 5%-Lactated Ringers 1,000 ml Med 02/07/21 09:45 Active IV ASDIRECTED Docusate Sodium [Colace] Med 02/07/21 17:56 Ordered 100 mg PO BID PRN Heparin Sodium Med 02/07/21 18:00 Ordered 5,000 units SUBCUT Q8H LORazepam [Ativan] Med 02/07/21 18:00 Ordered 4 mg IVPUSH Q2H LORazepam [Ativan] Med 02/07/21 18:00 Ordered See Protocol IV ASDIRECTED Metoprolol Tartrate [Lopressor] Med 02/07/21 17:59 Ordered 25 mg PO Q6H PRN Ondansetron [Zofran] Med 02/07/21 17:56 Ordered 4 mg IV Q4H PRN Pantoprazole [ProTONIX IV] Med 02/07/21 21:00 Ordered 40 mg IV Q12HR Sodium Chloride 0.9% [Normal Saline] 1,000 ml Med 02/07/21 13:45 Active IV ASDIRECTED Sodium Chloride 0.9% [Normal Saline] 1,000 ml Med 02/07/21 07:45 Active IV ONETIME Sodium Chloride 0.9% [Normal Saline] 1,000 ml Med 02/07/21 17:25 Active IV STAT Sodium Chloride 0.9% [Saline Flush] Med 02/07/21 21:00 Ordered 10 ml FLUSH 0900,2100 Sodium Chloride 0.9% [Saline Flush] Med 02/07/21 07:41 Active 10 ml FLUSH ASDIRECTED PRN Sodium Chloride 0.9% [Saline Flush] Med 02/07/21 17:59 Ordered 10 ml FLUSH ASDIRECTED PRN Peripheral IV Insertion Adult [OM.PC] Routine Oth 02/07/21 17:59 Ordered Peripheral IV Insertion Adult [OM.PC] Stat Oth 02/07/21 07:41 Ordered Saline Lock Insert [OM.PC] Routine Oth 02/07/21 17:59 Ordered Resuscitation Status Routine Resus Stat 02/07/21 17:56 Ordered Medication Orders Docusate Sodium (Docusate Sodium 100 Mg Cap) 100 mg PO BID PRN PRN Reason: Constipation Heparin Sodium (Porcine) (Heparin Sodium 5,000 Units/Ml Vial) 5,000 units SUBCUT Q8H STEPHANE Sodium Chloride (Normal Saline) 1,000 mls @ 999 mls/hr IV ONETIME STEPHANE Last Admin: 02/07/21 08:43 Dose: 999 mls/hr Documented by: DONOVAN Dextrose/Lactated Ringer's (Dextrose 5%-Lactated Ringers) 1,000 mls @ 999 mls/hr IV ASDIRECTED STEPHANE Last Admin: 02/07/21 10:23 Dose: 999 mls/hr Documented by: DONOVAN Sodium Chloride (Normal Saline) 1,000 mls @ 150 mls/hr IV ASDIRECTED STEPHANE Sodium Chloride (Normal Saline) 1,000 mls @ 150 mls/hr IV STAT STA Stop: 02/08/21 00:04 Last Admin: 02/07/21 17:26 Dose: 150 mls/hr Documented by: DONOVAN Ondansetron HCl (Ondansetron 4 Mg/2 Ml Sdv) 4 mg IV Q4H PRN PRN Reason: Nausea/Vomiting Pantoprazole Sodium (Pantoprazole 40 Mg Vial) 40 mg IV Q12HR STEPHANE Sodium Chloride (Sodium Chloride 0.9% 10 Ml Syringe) 10 ml FLUSH ASDIRECTED PRN PRN Reason: Keep Vein Open Last Admin: 02/07/21 08:43 Dose: 10 ml Documented by: DONOVAN Assessment/Plan Comment:: 65-year-old female with a past medical history as mentioned above who presents to the emergency department in a drunken state and now requesting detox. Refused by rehab. 1. Alcohol abuse. 2. Acute alcohol withdrawal. 3. History of requiring intubation during alcohol withdrawal. 4. History of prior cardiac arrest. 5. Hypertension. 6. Hypercholesterolemia. 7. History of asthma. 8. Multiple psychiatric disorders including alcohol abuse, bipolar disorder, major depression. Plan: Admit to the hospital under the hospitalist service for ongoing management of acute alcohol withdrawal. We will schedule Ativan as well as invoke the CIWA protocol. If symptoms escalate and she continues with high CIWA scores, the patient will be started immediately on dexmedetomidine and titrated to a RASS of -1. Vitamin replacement of folate and thiamine. Case management social work consult. PT and OT when able. Continue home medications otherwise. As needed Lopressor for tachycardia or rebound hypertension. CODE STATUS: Full code. DVT prophylaxis with heparin. - Mortality Measure Prognosis:: Poor
[2021-02-07] MEDS: LORazepam 2 MG/ML SDV IVPUSH SCH ×4 (20:30→22:15)
[2021-02-07] MEDS: Heparin Sodium 5,000 Units/ML Vial SUBCUT SCH (20:51)
[2021-02-07] MEDS: Pantoprazole 40 MG Vial IV SCH (20:58)
[2021-02-07] MEDS: Sodium Chloride 0.9% 10 ML Syringe FLUSH SCH (20:59)
[2021-02-07] MEDS: Sucralfate 1 GM Tab PO SCH (20:59)
[2021-02-07] MEDS: Thiamine 100 MG Tab PO SCH (20:59)
[2021-02-07] MEDS: Ondansetron 4 MG/2 ML SDV IV PRN (21:00)
[2021-02-07] MEDS: Lactated Ringers 1,000 ML IV SCH (21:15)
[2021-02-07] MEDS ORDERED: LORazepam 2 MG/ML SDV IV PRN (21:49)
[2021-02-08] MEDS: LORazepam 2 MG/ML SDV IVPUSH SCH ×2 (01:55→06:15)
[2021-02-08] MEDS: Heparin Sodium 5,000 Units/ML Vial SUBCUT SCH ×3 (01:55→18:07)
[2021-02-08] MEDS: Ondansetron 4 MG/2 ML SDV IV PRN ×2 (05:30→16:04)
[2021-02-08] MEDS: Lactated Ringers 1,000 ML IV SCH ×2 (05:36→16:09)
--- NOTE | 2021-02-08 08:06 | PCM.PN ---
- General Info Date of Service: 02/08/21 Admission Dx/Problem (Free Text): Admission Diagnosis/Problem Admission Diagnosis/Problem Alcohol abuse Subjective Update: Patient states that she is tired this morning. She has had no significant withdrawal symptoms since starting the scheduled lorazepam. UA was positive for 20-30 WBCs. She appears to be asymptomatic, not complaining of any urinary symptoms. Functional Status: Reports: Pain Controlled - Review of Systems General: Reports: Weakness, Fatigue HEENT: Reports: No Symptoms Pulmonary: Reports: No Symptoms Cardiovascular: Reports: No Symptoms Gastrointestinal: Reports: No Symptoms Genitourinary: Reports: No Symptoms Neurological: Reports: No Symptoms - Patient Data Vitals - Most Recent: Last Vital Signs Temp 98.9 F 02/08/21 06:00 Pulse 107 H 02/08/21 06:00 Resp 26 H 02/08/21 06:00 BP 128/73 02/08/21 06:00 Pulse Ox 96 02/08/21 06:00 Weight - Most Recent: 137 lb 3.2 oz I&O - Last 24 Hours: Intake & Output 02/07/21 02/08/21 02/08/21 22:59 06:59 14:59 Intake Total 350 Balance 350 Lab Results Last 24 Hours: Laboratory Results - last 24 hr 02/07/21 02/07/21 02/07/21 Range/Units 08:03 08:03 08:03 WBC 5.50 (3.98-10.04) K/mm3 RBC 4.45 (3.98-5.22) M/mm3 Hgb 13.5 D (11.2-15.7) gm/dl Hct 41.6 (34.1-44.9) % MCV 93.5 D (79.4-94.8) fl MCH 30.3 (25.6-32.2) pg MCHC 32.5 (32.2-35.5) g/dl RDW Std Deviation 56.7 H (36.4-46.3) fL Plt Count 128 L (182-369) K/mm3 MPV 10.0 (9.4-12.3) fl Neut % (Auto) 62.5 (34.0-71.1) % Lymph % (Auto) 21.6 (19.3-51.7) % Edmunds % (Auto) 12.9 H (4.7-12.5) % Eos % (Auto) 2.2 (0.7-5.8) Baso % (Auto) 0.4 (0.1-1.2) % Neut # (Auto) 3.44 (1.56-6.13) K/mm3 Lymph # (Auto) 1.19 (1.18-3.74) K/mm3 Edmunds # (Auto) 0.71 H (0.24-0.36) K/mm3 Eos # (Auto) 0.12 (0.04-0.36) K/mm3 Baso # (Auto) 0.02 (0.01-0.08) K/mm3 Sodium 137 (136-145) mEq/L Potassium 4.2 (3.5-5.1) mEq/L Chloride 96 L (98-107) mEq/L Carbon Dioxide 25 (21-32) mEq/L Anion Gap 20.2 H (5-15) BUN 12 (7-18) mg/dL Creatinine 0.6 (0.55-1.02) mg/dL Est Cr Clr Drug Dosing TNP Estimated GFR (MDRD) > 60 (>60) mL/min BUN/Creatinine Ratio 20.0 H (14-18) Glucose 70 (70-99) mg/dL Calcium 8.5 (8.5-10.1) mg/dL Magnesium 1.3 L (1.8-2.4) mg/dL Total Bilirubin 0.5 (0.2-1.0) mg/dL AST 184 H (15-37) U/L ALT 134 H (14-59) U/L Alkaline Phosphatase 124 H (46-116) U/L Total Protein 6.3 L (6.4-8.2) g/dl Albumin 3.4 (3.4-5.0) g/dl Globulin 2.9 gm/dL Albumin/Globulin Ratio 1.2 (1-2) Ethyl Alcohol 0.26 (0.00) gm% 02/08/21 02/08/21 Range/Units 06:10 06:10 WBC 3.40 L (3.98-10.04) K/mm3 RBC 3.77 L (3.98-5.22) M/mm3 Hgb 11.3 D (11.2-15.7) gm/dl Hct 36.2 (34.1-44.9) % MCV 96.0 H (79.4-94.8) fl MCH 30.0 (25.6-32.2) pg MCHC 31.2 L (32.2-35.5) g/dl RDW Std Deviation 59.0 H (36.4-46.3) fL Plt Count 124 L (182-369) K/mm3 MPV 10.3 (9.4-12.3) fl Neut % (Auto) 50.0 (34.0-71.1) % Lymph % (Auto) 27.6 (19.3-51.7) % Edmunds % (Auto) 21.2 H (4.7-12.5) % Eos % (Auto) 0.6 L (0.7-5.8) Baso % (Auto) 0.3 (0.1-1.2) % Neut # (Auto) 1.70 (1.56-6.13) K/mm3 Lymph # (Auto) 0.94 L (1.18-3.74) K/mm3 Edmunds # (Auto) 0.72 H (0.24-0.36) K/mm3 Eos # (Auto) 0.02 L (0.04-0.36) K/mm3 Baso # (Auto) 0.01 (0.01-0.08) K/mm3 Sodium 139 (136-145) mEq/L Potassium 3.7 (3.5-5.1) mEq/L Chloride 103 (98-107) mEq/L Carbon Dioxide 28 (21-32) mEq/L Anion Gap 11.7 (5-15) BUN 8 (7-18) mg/dL Creatinine 0.7 (0.55-1.02) mg/dL Est Cr Clr Drug Dosing 77.01 Estimated GFR (MDRD) > 60 (>60) mL/min BUN/Creatinine Ratio 11.4 L (14-18) Glucose 81 (70-99) mg/dL Calcium 7.3 L (8.5-10.1) mg/dL Magnesium (1.8-2.4) mg/dL Total Bilirubin 1.0 (0.2-1.0) mg/dL AST 91 H (15-37) U/L ALT 82 H (14-59) U/L Alkaline Phosphatase 101 (46-116) U/L Total Protein 4.5 L (6.4-8.2) g/dl Albumin 2.6 L (3.4-5.0) g/dl Globulin 1.9 gm/dL Albumin/Globulin Ratio 1.4 (1-2) Ethyl Alcohol (0.00) gm% Med Orders - Current: Current Medications Docusate Sodium (Docusate Sodium 100 Mg Cap) 100 mg PO BID PRN PRN Reason: Constipation Folic Acid (Folic Acid 1 Mg Tab) 1 mg PO DAILY [facility] Heparin Sodium (Porcine) (Heparin Sodium 5,000 Units/Ml Vial) 5,000 units SUBCUT Q8H [facility] Last Admin: 02/08/21 01:55 Dose: 5,000 units Documented by: Lactated Ringer's (Ringers, Lactated) 1,000 mls @ 100 mls/hr IV ASDIRECTED [facility] Lorazepam (Lorazepam 2 Mg/Ml Sdv) 1 - 3 mg IV ASDIRECTED PRN; Protocol PRN Reason: Anxiety Lorazepam (Lorazepam 1 Mg Tab) 2 mg PO Q2H [facility] Metoprolol Tartrate (Metoprolol Tartrate 25 Mg Tab) 25 mg PO Q6H PRN PRN Reason: See Label Comment Ondansetron HCl (Ondansetron 4 Mg/2 Ml Sdv) 4 mg IV Q4H PRN PRN Reason: Nausea/Vomiting Last Admin: 02/08/21 05:30 Dose: 4 mg Documented by: Pantoprazole Sodium (Pantoprazole 40 Mg Vial) 40 mg IV Q12HR [facility] Last Admin: 02/07/21 20:58 Dose: 40 mg Documented by: Sodium Chloride (Sodium Chloride 0.9% 10 Ml Syringe) 10 ml FLUSH ASDIRECTED PRN PRN Reason: Keep Vein Open Last Admin: 02/07/21 08:43 Dose: 10 ml Documented by: Sodium Chloride (Sodium Chloride 0.9% 10 Ml Syringe) 10 ml FLUSH 0900,2100 [facility] Last Admin: 02/07/21 20:59 Dose: 10 ml Documented by: Sucralfate (Sucralfate 1 Gm Tab) 1 gm PO QID [facility] Last Admin: 02/07/21 20:59 Dose: 1 gm Documented by: Thiamine HCl (Thiamine 100 Mg Tab) 100 mg PO BEDTIME [facility] Last Admin: 02/07/21 20:59 Dose: 100 mg Documented by: Discontinued Medications Sodium Chloride (Normal Saline) 1,000 mls @ 999 mls/hr IV ONETIME [facility] Last Admin: 02/07/21 08:43 Dose: 999 mls/hr Documented by: Magnesium Sulfate 4 gm/ Premix 50 mls @ 12.5 mls/hr IV ONETIME ONE Stop: 02/07/21 13:32 Last Admin: 02/07/21 10:23 Dose: 12.5 mls/hr Documented by: Dextrose/Lactated Ringer's (Dextrose 5%-Lactated Ringers) 1,000 mls @ 999 mls/hr IV ASDIRECTED [facility] Last Admin: 02/07/21 10:23 Dose: 999 mls/hr Documented by: Sodium Chloride (Normal Saline) 1,000 mls @ 150 mls/hr IV ASDIRECTED [facility] Sodium Chloride (Normal Saline) 1,000 mls @ 150 mls/hr IV STAT STA Stop: 02/08/21 00:04 Last Admin: 02/07/21 17:26 Dose: 150 mls/hr Documented by: Lactated Ringer's (Ringers, Lactated) 1,000 mls @ 200 mls/hr IV ASDIRECTED [facility] Last Infusion: 02/08/21 07:53 Dose: 100 mls/hr Documented by: Lorazepam (Lorazepam 2 Mg/Ml Sdv) 1 mg IVPUSH ONETIME ONE Stop: 02/07/21 08:48 Last Admin: 02/07/21 09:07 Dose: 1 mg Documented by: Lorazepam (Lorazepam 1 Mg Tab) 1 mg PO ONETIME ONE Stop: 02/07/21 13:41 Last Admin: 02/07/21 14:01 Dose: 1 mg Documented by: Lorazepam (Lorazepam 2 Mg/Ml Sdv) 4 mg IVPUSH ONETIME ONE Stop: 02/07/21 17:37 Last Admin: 02/07/21 17:58 Dose: 4 mg Documented by: Lorazepam (Lorazepam 2 Mg/Ml Sdv) 4 mg IVPUSH Q2H [facility] Last Admin: 02/07/21 21:53 Dose: 4 mg Documented by: Lorazepam (Lorazepam 2 Mg/Ml Sdv) 0 mg IV ASDIRECTED [facility]; Protocol Lorazepam (Lorazepam 2 Mg/Ml Sdv) 4 mg IVPUSH Q4H [facility] Last Admin: 02/08/21 06:15 Dose: 4 mg Documented by: Metoclopramide HCl (Metoclopramide 10 Mg/2 Ml Sdv) 7.5 mg IVPUSH ONETIME ONE Stop: 02/07/21 08:48 Last Admin: 02/07/21 09:07 Dose: 7.5 mg Documented by: Ondansetron HCl (Ondansetron 4 Mg/2 Ml Sdv) 4 mg IVPUSH ONETIME ONE Stop: 02/07/21 17:38 Last Admin: 02/07/21 18:00 Dose: 4 mg Documented by: Sodium Chloride (Sodium Chloride 0.9% 10 Ml Syringe) 10 ml FLUSH ASDIRECTED PRN PRN Reason: Keep Vein Open - Exam Quality Assessment: No: Supplemental Oxygen General: Sedated HEENT: Pupils Equal Neck: +2 Carotid Pulse wo Bruit Lungs: Clear to Auscultation, Normal Respiratory Effort Cardiovascular: Regular Rate, Regular Rhythm GI/Abdominal Exam: Normal Bowel Sounds, Soft, Non-Tender, No Organomegaly, No Distention, No Abnormal Bruit, No Mass Extremities: Normal Inspection, Normal Range of Motion, Non-Tender, No Pedal Edema, Normal Capillary Refill Skin: Warm, Dry, Intact Psy/Mental Status: Alert, Normal Affect, Normal Mood - Patient Data Lab Results Last 24 hrs: Laboratory Results - last 24 hr 02/07/21 02/07/21 02/07/21 Range/Units 08:03 08:03 08:03 WBC 5.50 (3.98-10.04) K/mm3 RBC 4.45 (3.98-5.22) M/mm3 Hgb 13.5 D (11.2-15.7) gm/dl Hct 41.6 (34.1-44.9) % MCV 93.5 D (79.4-94.8) fl MCH 30.3 (25.6-32.2) pg MCHC 32.5 (32.2-35.5) g/dl RDW Std Deviation 56.7 H (36.4-46.3) fL Plt Count 128 L (182-369) K/mm3 MPV 10.0 (9.4-12.3) fl Neut % (Auto) 62.5 (34.0-71.1) % Lymph % (Auto) 21.6 (19.3-51.7) % Edmunds % (Auto) 12.9 H (4.7-12.5) % Eos % (Auto) 2.2 (0.7-5.8) Baso % (Auto) 0.4 (0.1-1.2) % Neut # (Auto) 3.44 (1.56-6.13) K/mm3 Lymph # (Auto) 1.19 (1.18-3.74) K/mm3 Edmunds # (Auto) 0.71 H (0.24-0.36) K/mm3 Eos # (Auto) 0.12 (0.04-0.36) K/mm3 Baso # (Auto) 0.02 (0.01-0.08) K/mm3 Sodium 137 (136-145) mEq/L Potassium 4.2 (3.5-5.1) mEq/L Chloride 96 L (98-107) mEq/L Carbon Dioxide 25 (21-32) mEq/L Anion Gap 20.2 H (5-15) BUN 12 (7-18) mg/dL Creatinine 0.6 (0.55-1.02) mg/dL Est Cr Clr Drug Dosing TNP Estimated GFR (MDRD) > 60 (>60) mL/min BUN/Creatinine Ratio 20.0 H (14-18) Glucose 70 (70-99) mg/dL Calcium 8.5 (8.5-10.1) mg/dL Magnesium 1.3 L (1.8-2.4) mg/dL Total Bilirubin 0.5 (0.2-1.0) mg/dL AST 184 H (15-37) U/L ALT 134 H (14-59) U/L Alkaline Phosphatase 124 H (46-116) U/L Total Protein 6.3 L (6.4-8.2) g/dl Albumin 3.4 (3.4-5.0) g/dl Globulin 2.9 gm/dL Albumin/Globulin Ratio 1.2 (1-2) Ethyl Alcohol 0.26 (0.00) gm% 02/08/21 02/08/21 Range/Units 06:10 06:10 WBC 3.40 L (3.98-10.04) K/mm3 RBC 3.77 L (3.98-5.22) M/mm3 Hgb 11.3 D (11.2-15.7) gm/dl Hct 36.2 (34.1-44.9) % MCV 96.0 H (79.4-94.8) fl MCH 30.0 (25.6-32.2) pg MCHC 31.2 L (32.2-35.5) g/dl RDW Std Deviation 59.0 H (36.4-46.3) fL Plt Count 124 L (182-369) K/mm3 MPV 10.3 (9.4-12.3) fl Neut % (Auto) 50.0 (34.0-71.1) % Lymph % (Auto) 27.6 (19.3-51.7) % Edmunds % (Auto) 21.2 H (4.7-12.5) % Eos % (Auto) 0.6 L (0.7-5.8) Baso % (Auto) 0.3 (0.1-1.2) % Neut # (Auto) 1.70 (1.56-6.13) K/mm3 Lymph # (Auto) 0.94 L (1.18-3.74) K/mm3 Edmunds # (Auto) 0.72 H (0.24-0.36) K/mm3 Eos # (Auto) 0.02 L (0.04-0.36) K/mm3 Baso # (Auto) 0.01 (0.01-0.08) K/mm3 Sodium 139 (136-145) mEq/L Potassium 3.7 (3.5-5.1) mEq/L Chloride 103 (98-107) mEq/L Carbon Dioxide 28 (21-32) mEq/L Anion Gap 11.7 (5-15) BUN 8 (7-18) mg/dL Creatinine 0.7 (0.55-1.02) mg/dL Est Cr Clr Drug Dosing 77.01 Estimated GFR (MDRD) > 60 (>60) mL/min BUN/Creatinine Ratio 11.4 L (14-18) Glucose 81 (70-99) mg/dL Calcium 7.3 L (8.5-10.1) mg/dL Magnesium (1.8-2.4) mg/dL Total Bilirubin 1.0 (0.2-1.0) mg/dL AST 91 H (15-37) U/L ALT 82 H (14-59) U/L Alkaline Phosphatase 101 (46-116) U/L Total Protein 4.5 L (6.4-8.2) g/dl Albumin 2.6 L (3.4-5.0) g/dl Globulin 1.9 gm/dL Albumin/Globulin Ratio 1.4 (1-2) Ethyl Alcohol (0.00) gm% Result Diagrams: 02/08/21 06:10 02/08/21 06:10 Sepsis Event Note - Evaluation Sepsis Screening Result: No Definite Risk - Focused Exam Vital Signs: Vital Signs Temp Pulse Resp BP Pulse Ox 02/08/21 06:00 98.9 F 107 H 26 H 128/73 96 02/08/21 04:00 98.5 F 110 H 23 H 104/67 94 L 02/08/21 02:00 98.5 F 115 H 25 H 133/77 94 L 02/07/21 23:49 98.5 F 117 H 27 H 126/70 92 L 02/07/21 22:00 98.3 F 121 H 26 H 138/78 92 L 02/07/21 21:00 98.3 F 127 H 25 H 126/74 95 - Problem List & Annotations (1) Alcohol abuse with physiological dependence SNOMED Code(s): 91408210, 09563844 Code(s): F10.20 - ALCOHOL DEPENDENCE, UNCOMPLICATED Status: Acute Current Visit: No (2) Alcohol withdrawal syndrome SNOMED Code(s): 225174040 Code(s): F10.239 - ALCOHOL DEPENDENCE WITH WITHDRAWAL, UNSPECIFIED Status: Acute Priority: High Current Visit: No Onset Date: ~06/15/20 Qualifiers: Complication of substance-induced condition: with perceptual disturbance Qu alified Code(s): F10.232 - Alcohol dependence with withdrawal with perceptual disturbance - Problem List Review Problem List Initiated/Reviewed/Updated: Yes - My Orders Last 24 Hours: My Active Orders 02/08/21 07:56 CORONAVIRUS COVID-19 DODIE [MOLEC] Routine 02/08/21 08:00 LORazepam [Ativan] 2 mg PO Q2H Lactated Ringers [Ringers, Lactated] 1,000 ml IV ASDIRECTED 02/08/21 08:02 MAGNESIUM [CHEM] Routine 02/08/21 08:03 Up With Assistance [RC] ASDIRECTED - Plan Plan:: 65-year-old female with a past medical history as mentioned above who presents to the emergency department in a drunken state and now requesting detox. Refused by rehab. 1. Alcohol abuse. 2. Acute alcohol withdrawal. 3. History of requiring intubation during alcohol withdrawal. 4. History of prior cardiac arrest. 5. Hypertension. 6. Hypercholesterolemia. 7. History of asthma. 8. Multiple psychiatric disorders including alcohol abuse, bipolar disorder, major depression. Plan: Continue to care for her in the ICU Decrease Ativan as tolerated If symptoms escalate and she continues with high CIWA scores, the patient will be started immediately on dexmedetomidine and titrated to a RASS of -1. Vitamin replacement of folate and thiamine. Apparently patient has a DUI and was going to be arraigned tomorrow. She cannot do that secondary to being on Ativan and in the ICU. Will need cognitive evaluation when off Ativan. Cognitive evaluation from spring of this year was moderate deficit Case management social work consult. PT and OT when able. Continue home medications otherwise. As needed Lopressor for tachycardia or rebound hypertension. CODE STATUS: Full code. DVT prophylaxis with heparin.
[2021-02-08] MEDS: LORazepam 1 MG Tab PO SCH ×5 (08:08→22:16)
[2021-02-08] MEDS: Pantoprazole 40 MG Vial IV SCH (08:08)
[2021-02-08] MEDS: Sucralfate 1 GM Tab PO SCH ×4 (08:08→20:24)
[2021-02-08] MEDS: Folic Acid 1 MG Tab PO SCH (08:08)
[2021-02-08] MEDS: Sodium Chloride 0.9% 10 ML Syringe FLUSH SCH ×2 (08:09→20:24)
[2021-02-08] MEDS ORDERED: LORazepam 1 MG Tab PO SCH ×2 (10:15→22:00)
[2021-02-08] MEDS: Magnesium Oxide 400 MG Tab PO SCH ×2 (10:59→20:24)
[2021-02-08] MEDS: Sulfamethoxazole/Trimethoprim 800-160 MG Tab PO SCH ×2 (11:00→20:24)
--- NOTE | 2021-02-08 13:22 | PCM.SN.2 ---
- Free Text/Narrative Note: 1251 called to room 24 for IV start. Attempt X2 24 ga. placed left forearm good flush good blood return. Out of room at 1318.
[2021-02-08] MEDS: Pantoprazole 40 MG Tab.CR PO SCH (20:24)
[2021-02-08] MEDS: Thiamine 100 MG Tab PO SCH (20:24)
[2021-02-09] MEDS: Heparin Sodium 5,000 Units/ML Vial SUBCUT SCH ×3 (02:03→20:15)
[2021-02-09] MEDS: Lactated Ringers 1,000 ML IV SCH ×3 (02:04→21:55)
[2021-02-09] MEDS: LORazepam 1 MG Tab PO SCH ×5 (03:56→21:54)
[2021-02-09] MEDS: Magnesium Oxide 400 MG Tab PO SCH ×2 (08:30→20:15)
[2021-02-09] MEDS: Sucralfate 1 GM Tab PO SCH ×4 (08:31→21:54)
[2021-02-09] MEDS: Pantoprazole 40 MG Tab.CR PO SCH ×2 (08:31→20:15)
[2021-02-09] MEDS: Sulfamethoxazole/Trimethoprim 800-160 MG Tab PO SCH ×2 (08:31→20:15)
[2021-02-09] MEDS: Folic Acid 1 MG Tab PO SCH (08:31)
[2021-02-09] MEDS: Sodium Chloride 0.9% 10 ML Syringe FLUSH SCH ×2 (08:33→21:57)
[2021-02-09] MEDS ORDERED: LORazepam 1 MG Tab PO SCH (08:41)
[2021-02-09] MEDS: Ondansetron 4 MG/2 ML SDV IV PRN (11:52)
--- NOTE | 2021-02-09 14:08 | PCM.PN ---
- General Info Date of Service: 02/09/21 Admission Dx/Problem (Free Text): Admission Diagnosis/Problem Admission Diagnosis/Problem Alcohol abuse Subjective Update: Patient states that she is not feeling well. She is on a weaning dose of Ativan. Appetite is poor. Functional Status: Reports: Pain Controlled - Review of Systems General: Reports: Weakness, Fatigue HEENT: Reports: No Symptoms Pulmonary: Reports: No Symptoms Cardiovascular: Reports: No Symptoms Gastrointestinal: Reports: No Symptoms Skin: Reports: No Symptoms - Patient Data Vitals - Most Recent: Last Vital Signs Temp 97.1 F 02/09/21 12:00 Pulse 94 02/09/21 12:00 Resp 19 02/09/21 12:00 BP 135/83 02/09/21 12:00 Pulse Ox 93 L 02/09/21 12:00 Weight - Most Recent: 145 lb 14.4 oz I&O - Last 24 Hours: Intake & Output 02/08/21 02/09/21 02/09/21 22:59 06:59 14:59 Intake Total 1840 1696 415 Balance 1840 1696 415 Chance Results Last 24 Hours: Microbiology 02/08/21 05:10 Urine Culture - Preliminary Urine Escherichia Coli Med Orders - Current: Current Medications Docusate Sodium (Docusate Sodium 100 Mg Cap) 100 mg PO BID PRN PRN Reason: Constipation Folic Acid (Folic Acid 1 Mg Tab) 1 mg PO DAILY [facility] Last Admin: 02/09/21 08:31 Dose: 1 mg Documented by: Heparin Sodium (Porcine) (Heparin Sodium 5,000 Units/Ml Vial) 5,000 units SUBCUT Q8H [facility] Last Admin: 02/09/21 09:37 Dose: 5,000 units Documented by: Lactated Ringer's (Ringers, Lactated) 1,000 mls @ 100 mls/hr IV ASDIRECTED [facility] Last Admin: 02/09/21 11:51 Dose: 100 mls/hr Documented by: Lorazepam (Lorazepam 2 Mg/Ml Sdv) 1 - 3 mg IV ASDIRECTED PRN; Protocol PRN Reason: Anxiety Lorazepam (Lorazepam 1 Mg Tab) 1 mg PO Q4H [facility] Last Admin: 02/09/21 09:37 Dose: 1 mg Documented by: Magnesium Oxide (Magnesium Oxide 400 Mg Tab) 400 mg PO BID [facility] Last Admin: 02/09/21 08:30 Dose: 400 mg Documented by: Metoprolol Tartrate (Metoprolol Tartrate 25 Mg Tab) 25 mg PO Q6H PRN PRN Reason: See Label Comment Ondansetron HCl (Ondansetron 4 Mg/2 Ml Sdv) 4 mg IV Q4H PRN PRN Reason: Nausea/Vomiting Last Admin: 02/09/21 11:52 Dose: 4 mg Documented by: Pantoprazole Sodium (Pantoprazole 40 Mg Tab.Cr) 40 mg PO BID [facility] Last Admin: 02/09/21 08:31 Dose: 40 mg Documented by: Sodium Chloride (Sodium Chloride 0.9% 10 Ml Syringe) 10 ml FLUSH ASDIRECTED PRN PRN Reason: Keep Vein Open Last Admin: 02/07/21 08:43 Dose: 10 ml Documented by: Sodium Chloride (Sodium Chloride 0.9% 10 Ml Syringe) 10 ml FLUSH 0900,2100 [facility] Last Admin: 02/09/21 08:33 Dose: Not Given Documented by: Sucralfate (Sucralfate 1 Gm Tab) 1 gm PO QID [facility] Last Admin: 02/09/21 08:31 Dose: 1 gm Documented by: Thiamine HCl (Thiamine 100 Mg Tab) 100 mg PO BEDTIME [facility] Last Admin: 02/08/21 20:24 Dose: 100 mg Documented by: Trimethoprim/Sulfamethoxazole (Sulfamethoxazole/Trimethoprim 800-160 Mg Tab) 1 tab PO BID [facility] Last Admin: 02/09/21 08:31 Dose: 1 tab Documented by: Discontinued Medications Sodium Chloride (Normal Saline) 1,000 mls @ 999 mls/hr IV ONETIME [facility] Last Admin: 02/07/21 08:43 Dose: 999 mls/hr Documented by: Magnesium Sulfate 4 gm/ Premix 50 mls @ 12.5 mls/hr IV ONETIME ONE Stop: 02/07/21 13:32 Last Admin: 02/07/21 10:23 Dose: 12.5 mls/hr Documented by: Dextrose/Lactated Ringer's (Dextrose 5%-Lactated Ringers) 1,000 mls @ 999 mls/hr IV ASDIRECTED [facility] Last Admin: 02/07/21 10:23 Dose: 999 mls/hr Documented by: Sodium Chloride (Normal Saline) 1,000 mls @ 150 mls/hr IV ASDIRECTED [facility] Sodium Chloride (Normal Saline) 1,000 mls @ 150 mls/hr IV STAT STA Stop: 02/08/21 00:04 Last Admin: 02/07/21 17:26 Dose: 150 mls/hr Documented by: Lactated Ringer's (Ringers, Lactated) 1,000 mls @ 200 mls/hr IV ASDIRECTED [facility] Last Infusion: 02/08/21 07:53 Dose: 100 mls/hr Documented by: Lorazepam (Lorazepam 2 Mg/Ml Sdv) 1 mg IVPUSH ONETIME ONE Stop: 02/07/21 08:48 Last Admin: 02/07/21 09:07 Dose: 1 mg Documented by: Lorazepam (Lorazepam 1 Mg Tab) 1 mg PO ONETIME ONE Stop: 02/07/21 13:41 Last Admin: 02/07/21 14:01 Dose: 1 mg Documented by: Lorazepam (Lorazepam 2 Mg/Ml Sdv) 4 mg IVPUSH ONETIME ONE Stop: 02/07/21 17:37 Last Admin: 02/07/21 17:58 Dose: 4 mg Documented by: Lorazepam (Lorazepam 2 Mg/Ml Sdv) 4 mg IVPUSH Q2H [facility] Last Admin: 02/07/21 21:53 Dose: 4 mg Documented by: Lorazepam (Lorazepam 2 Mg/Ml Sdv) 0 mg IV ASDIRECTED [facility]; Protocol Lorazepam (Lorazepam 2 Mg/Ml Sdv) 4 mg IVPUSH Q4H [facility] Last Admin: 02/08/21 06:15 Dose: 4 mg Documented by: Lorazepam (Lorazepam 1 Mg Tab) 2 mg PO Q2H [facility] Last Admin: 02/08/21 10:06 Dose: Not Given Documented by: Lorazepam (Lorazepam 1 Mg Tab) 2 mg PO Q4H [facility] Last Admin: 02/08/21 11:00 Dose: Not Given Documented by: Lorazepam (Lorazepam 1 Mg Tab) 2 mg PO Q4H [facility] Last Admin: 02/08/21 16:04 Dose: 2 mg Documented by: Lorazepam (Lorazepam 1 Mg Tab) 1 mg PO Q6H [facility] Lorazepam (Lorazepam 1 Mg Tab) 2 mg PO Q6H [facility] Last Admin: 02/09/21 03:56 Dose: 2 mg Documented by: Metoclopramide HCl (Metoclopramide 10 Mg/2 Ml Sdv) 7.5 mg IVPUSH ONETIME ONE Stop: 02/07/21 08:48 Last Admin: 02/07/21 09:07 Dose: 7.5 mg Documented by: Ondansetron HCl (Ondansetron 4 Mg/2 Ml Sdv) 4 mg IVPUSH ONETIME ONE Stop: 02/07/21 17:38 Last Admin: 02/07/21 18:00 Dose: 4 mg Documented by: Pantoprazole Sodium (Pantoprazole 40 Mg Vial) 40 mg IV Q12HR [facility] Last Admin: 02/08/21 08:08 Dose: 40 mg Documented by: Sodium Chloride (Sodium Chloride 0.9% 10 Ml Syringe) 10 ml FLUSH ASDIRECTED PRN PRN Reason: Keep Vein Open - Exam Quality Assessment: No: Supplemental Oxygen General: Alert HEENT: Pupils Equal, Pupils Reactive, EOMI, Mucous Membr. Moist/[place] Neck: Supple Lungs: Clear to Auscultation, Normal Respiratory Effort Cardiovascular: Regular Rate, Regular Rhythm GI/Abdominal Exam: Normal Bowel Sounds, Soft, Non-Tender, No Distention Extremities: Normal Inspection, Non-Tender, No Pedal Edema, Normal Capillary Refill Skin: Warm, Dry, Intact Psy/Mental Status: Alert, Normal Affect, Normal Mood - Patient Data Result Diagrams: 02/08/21 06:10 02/08/21 06:10 Chance Results Last 24 hrs: Microbiology 02/08/21 05:10 Urine Culture - Preliminary Urine Escherichia Coli Sepsis Event Note - Evaluation Sepsis Screening Result: No Definite Risk - Focused Exam Vital Signs: Vital Signs Temp Pulse Resp BP Pulse Ox 02/09/21 12:00 97.1 F 94 19 135/83 93 L 02/09/21 08:00 97.1 F 96 17 142/74 H 96 02/09/21 04:00 97.7 F 99 19 123/84 95 - Problem List & Annotations (1) Alcohol abuse with physiological dependence SNOMED Code(s): 56955944, 85370855 Code(s): F10.20 - ALCOHOL DEPENDENCE, UNCOMPLICATED Status: Acute Current Visit: No (2) Alcohol withdrawal syndrome SNOMED Code(s): 070903317 Code(s): F10.239 - ALCOHOL DEPENDENCE WITH WITHDRAWAL, UNSPECIFIED Status: Acute Priority: High Current Visit: No Onset Date: ~04/21/21 Qualifiers: Complication of substance-induced condition: with perceptual disturbance Qualified Code(s): F10.232 - Alcohol dependence with withdrawal with perceptual disturbance - Problem List Review Problem List Initiated/Reviewed/Updated: Yes - My Orders Last 24 Hours: My Active Orders 02/08/21 21:00 Pantoprazole [ProTONIX] 40 mg PO BID 02/09/21 10:00 LORazepam [Ativan] 1 mg PO Q4H 02/10/21 05:11 CBC WITH AUTO DIFF [HEME] AM CMP [COMPREHENSIVE METABOLIC PN,CMP] [CHEM] AM MAGNESIUM [CHEM] AM PHOSPHORUS [CHEM] AM - Plan Plan:: 65-year-old female with a past medical history as mentioned above who presents to the emergency department in a drunken state and now requesting detox. Refused by rehab. 1. Alcohol abuse. 2. Acute alcohol withdrawal.Improving 3. History of requiring intubation during alcohol withdrawal. 4. History of prior cardiac arrest. 5. Hypertension. 6. Hypercholesterolemia. 7. History of asthma. 8. Multiple psychiatric disorders including alcohol abuse, bipolar disorder, major depression. Plan: Continue to care for her in the ICU Continue to wean Ativan Continue CIWA protocol Vitamin replacement of folate and thiamine. Will need cognitive evaluation when off Ativan. Cognitive evaluation from spring of this year was moderate deficit Case management social work consult. PT and OT when able. Continue home medications otherwise. As needed Lopressor for tachycardia or rebound hypertension. CODE STATUS: Full code. DVT prophylaxis with heparin.
[2021-02-09] MEDS: Thiamine 100 MG Tab PO SCH (20:15)
[2021-02-10] MEDS: LORazepam 1 MG Tab PO SCH ×2 (02:04→06:28)
[2021-02-10] MEDS: Heparin Sodium 5,000 Units/ML Vial SUBCUT SCH ×3 (02:05→17:41)
[2021-02-10] MEDS: Sucralfate 1 GM Tab PO SCH ×4 (08:45→21:46)
[2021-02-10] MEDS: Magnesium Oxide 400 MG Tab PO SCH ×2 (08:45→21:46)
[2021-02-10] MEDS: Sulfamethoxazole/Trimethoprim 800-160 MG Tab PO SCH ×2 (08:46→21:47)
[2021-02-10] MEDS: Folic Acid 1 MG Tab PO SCH (08:46)
[2021-02-10] MEDS: Sodium Chloride 0.9% 10 ML Syringe FLUSH SCH ×2 (08:46→21:47)
[2021-02-10] MEDS: Pantoprazole 40 MG Tab.CR PO SCH ×2 (08:46→21:47)
[2021-02-10] MEDS: Ondansetron 4 MG Tab.DIS PO PRN ×3 (10:41→21:48)
--- NOTE | 2021-02-10 12:19 | PCM.PN ---
- General Info Date of Service: 02/10/21 Admission Dx/Problem (Free Text): Admission Diagnosis/Problem Admission Diagnosis/Problem Alcohol abuse Subjective Update: States that she is feeling fatigued today with a headache. She continues to improve though. Functional Status: Reports: Pain Controlled - Review of Systems General: Reports: No Symptoms HEENT: Reports: Headaches Pulmonary: Reports: No Symptoms Cardiovascular: Reports: No Symptoms Gastrointestinal: Reports: No Symptoms Musculoskeletal: Reports: No Symptoms Psychiatric: Reports: No Symptoms - Patient Data Vitals - Most Recent: Last Vital Signs Temp 99.3 F 02/10/21 11:23 Pulse 114 H 02/10/21 11:23 Resp 15 02/10/21 11:23 BP 124/76 02/10/21 11:23 Pulse Ox 96 02/10/21 11:23 Weight - Most Recent: 144 lb 12.8 oz I&O - Last 24 Hours: Intake & Output 02/09/21 02/10/21 02/10/21 22:59 06:59 14:59 Intake Total 2777 1408 Balance 2777 1408 Lab Results Last 24 Hours: Laboratory Results - last 24 hr 02/10/21 02/10/21 Range/Units 05:50 05:50 WBC 4.23 (3.98-10.04) K/mm3 RBC 3.89 L (3.98-5.22) M/mm3 Hgb 11.8 (11.2-15.7) gm/dl Hct 37.8 (34.1-44.9) % MCV 97.2 H (79.4-94.8) fl MCH 30.3 (25.6-32.2) pg MCHC 31.2 L (32.2-35.5) g/dl RDW Std Deviation 57.4 H (36.4-46.3) fL Plt Count 159 L (182-369) K/mm3 MPV 10.5 (9.4-12.3) fl Neut % (Auto) 60.2 (34.0-71.1) % Lymph % (Auto) 25.1 (19.3-51.7) % Bowie % (Auto) 11.8 (4.7-12.5) % Eos % (Auto) 1.9 (0.7-5.8) Baso % (Auto) 0.5 (0.1-1.2) % Neut # (Auto) 2.55 (1.56-6.13) K/mm3 Lymph # (Auto) 1.06 L (1.18-3.74) K/mm3 Bowie # (Auto) 0.50 H (0.24-0.36) K/mm3 Eos # (Auto) 0.08 (0.04-0.36) K/mm3 Baso # (Auto) 0.02 (0.01-0.08) K/mm3 Sodium 137 (136-145) mEq/L Potassium 4.2 (3.5-5.1) mEq/L Chloride 102 (98-107) mEq/L Carbon Dioxide 26 (21-32) mEq/L Anion Gap 13.2 (5-15) BUN 6 L (7-18) mg/dL Creatinine 0.6 (0.55-1.02) mg/dL Est Cr Clr Drug Dosing 89.84 mL/min Estimated GFR (MDRD) > 60 (>60) mL/min BUN/Creatinine Ratio 10.0 L (14-18) Glucose 96 (70-99) mg/dL Calcium 8.2 L (8.5-10.1) mg/dL Phosphorus 4.1 (2.6-4.7) mg/dL Magnesium 1.6 L (1.8-2.4) mg/dL Total Bilirubin 0.3 (0.2-1.0) mg/dL AST 45 H (15-37) U/L ALT 58 (14-59) U/L Alkaline Phosphatase 103 (46-116) U/L Total Protein 5.2 L (6.4-8.2) g/dl Albumin 2.5 L (3.4-5.0) g/dl Globulin 2.7 gm/dL Albumin/Globulin Ratio 0.9 L (1-2) Chance Results Last 24 Hours: Microbiology 02/08/21 05:10 Urine Culture - Final Urine Escherichia Coli Med Orders - Current: Current Medications Docusate Sodium (Docusate Sodium 100 Mg Cap) 100 mg PO BID PRN PRN Reason: Constipation Folic Acid (Folic Acid 1 Mg Tab) 1 mg PO DAILY [facility] Last Admin: 02/10/21 08:46 Dose: 1 mg Documented by: Heparin Sodium (Porcine) (Heparin Sodium 5,000 Units/Ml Vial) 5,000 units SUBCUT Q8H [facility] Last Admin: 02/10/21 10:41 Dose: 5,000 units Documented by: Lorazepam (Lorazepam 2 Mg/Ml Sdv) 1 - 3 mg IV ASDIRECTED PRN; Protocol PRN Reason: Anxiety Magnesium Oxide (Magnesium Oxide 400 Mg Tab) 400 mg PO BID [facility] Last Admin: 02/10/21 08:45 Dose: 400 mg Documented by: Metoprolol Tartrate (Metoprolol Tartrate 25 Mg Tab) 25 mg PO Q6H PRN PRN Reason: See Label Comment Ondansetron HCl (Ondansetron 4 Mg Tab.Dis) 4 mg PO Q4H PRN PRN Reason: Nausea/Vomiting Last Admin: 02/10/21 10:41 Dose: 4 mg Documented by: Pantoprazole Sodium (Pantoprazole 40 Mg Tab.Cr) 40 mg PO BID [facility] Last Admin: 02/10/21 08:46 Dose: 40 mg Documented by: Sodium Chloride (Sodium Chloride 0.9% 10 Ml Syringe) 10 ml FLUSH ASDIRECTED PRN PRN Reason: Keep Vein Open Last Admin: 02/07/21 08:43 Dose: 10 ml Documented by: Sodium Chloride (Sodium Chloride 0.9% 10 Ml Syringe) 10 ml FLUSH 0900,2100 [facility] Last Admin: 02/10/21 08:46 Dose: Not Given Documented by: Sucralfate (Sucralfate 1 Gm Tab) 1 gm PO QID [facility] Last Admin: 02/10/21 08:45 Dose: 1 gm Documented by: Thiamine HCl (Thiamine 100 Mg Tab) 100 mg PO BEDTIME [facility] Last Admin: 02/09/21 20:15 Dose: 100 mg Documented by: Trimethoprim/Sulfamethoxazole (Sulfamethoxazole/Trimethoprim 800-160 Mg Tab) 1 tab PO BID [facility] Last Admin: 02/10/21 08:46 Dose: 1 tab Documented by: Discontinued Medications Sodium Chloride (Normal Saline) 1,000 mls @ 999 mls/hr IV ONETIME [facility] Last Admin: 02/07/21 08:43 Dose: 999 mls/hr Documented by: Magnesium Sulfate 4 gm/ Premix 50 mls @ 12.5 mls/hr IV ONETIME ONE Stop: 02/07/21 13:32 Last Admin: 02/07/21 10:23 Dose: 12.5 mls/hr Documented by: Dextrose/Lactated Ringer's (Dextrose 5%-Lactated Ringers) 1,000 mls @ 999 mls/hr IV ASDIRECTED [facility] Last Admin: 02/07/21 10:23 Dose: 999 mls/hr Documented by: Sodium Chloride (Normal Saline) 1,000 mls @ 150 mls/hr IV ASDIRECTED [facility] Sodium Chloride (Normal Saline) 1,000 mls @ 150 mls/hr IV STAT STA Stop: 02/08/21 00:04 Last Admin: 02/07/21 17:26 Dose: 150 mls/hr Documented by: Lactated Ringer's (Ringers, Lactated) 1,000 mls @ 200 mls/hr IV ASDIRECTED [facility] Last Infusion: 02/08/21 07:53 Dose: 100 mls/hr Documented by: Lactated Ringer's (Ringers, Lactated) 1,000 mls @ 100 mls/hr IV ASDIRECTED [facility] Last Infusion: 02/10/21 02:48 Dose: 0 mls/hr Documented by: Lorazepam (Lorazepam 2 Mg/Ml Sdv) 1 mg IVPUSH ONETIME ONE Stop: 02/07/21 08:48 Last Admin: 02/07/21 09:07 Dose: 1 mg Documented by: Lorazepam (Lorazepam 1 Mg Tab) 1 mg PO ONETIME ONE Stop: 02/07/21 13:41 Last Admin: 02/07/21 14:01 Dose: 1 mg Documented by: Lorazepam (Lorazepam 2 Mg/Ml Sdv) 4 mg IVPUSH ONETIME ONE Stop: 02/07/21 17:37 Last Admin: 02/07/21 17:58 Dose: 4 mg Documented by: Lorazepam (Lorazepam 2 Mg/Ml Sdv) 4 mg IVPUSH Q2H [facility] Last Admin: 02/07/21 21:53 Dose: 4 mg Documented by: Lorazepam (Lorazepam 2 Mg/Ml Sdv) 0 mg IV ASDIRECTED [facility]; Protocol Lorazepam (Lorazepam 2 Mg/Ml Sdv) 4 mg IVPUSH Q4H [facility] Last Admin: 02/08/21 06:15 Dose: 4 mg Documented by: Lorazepam (Lorazepam 1 Mg Tab) 2 mg PO Q2H [facility] Last Admin: 02/08/21 10:06 Dose: Not Given Documented by: Lorazepam (Lorazepam 1 Mg Tab) 2 mg PO Q4H [facility] Last Admin: 02/08/21 11:00 Dose: Not Given Documented by: Lorazepam (Lorazepam 1 Mg Tab) 2 mg PO Q4H [facility] Last Admin: 02/08/21 16:04 Dose: 2 mg Documented by: Lorazepam (Lorazepam 1 Mg Tab) 1 mg PO Q6H [facility] Lorazepam (Lorazepam 1 Mg Tab) 2 mg PO Q6H [facility] Last Admin: 02/09/21 03:56 Dose: 2 mg Documented by: Lorazepam (Lorazepam 1 Mg Tab) 1 mg PO Q4H [facility] Last Admin: 02/10/21 06:28 Dose: 1 mg Documented by: Metoclopramide HCl (Metoclopramide 10 Mg/2 Ml Sdv) 7.5 mg IVPUSH ONETIME ONE Stop: 02/07/21 08:48 Last Admin: 02/07/21 09:07 Dose: 7.5 mg Documented by: Ondansetron HCl (Ondansetron 4 Mg/2 Ml Sdv) 4 mg IVPUSH ONETIME ONE Stop: 02/07/21 17:38 Last Admin: 02/07/21 18:00 Dose: 4 mg Documented by: Ondansetron HCl (Ondansetron 4 Mg/2 Ml Sdv) 4 mg IV Q4H PRN PRN Reason: Nausea/Vomiting Last Admin: 02/09/21 11:52 Dose: 4 mg Documented by: Pantoprazole Sodium (Pantoprazole 40 Mg Vial) 40 mg IV Q12HR [facility] Last Admin: 02/08/21 08:08 Dose: 40 mg Documented by: Sodium Chloride (Sodium Chloride 0.9% 10 Ml Syringe) 10 ml FLUSH ASDIRECTED PRN PRN Reason: Keep Vein Open - Exam Quality Assessment: No: Supplemental Oxygen General: Alert, Oriented HEENT: Pupils Equal, Mucous Membr. Moist/[place] Neck: Supple Lungs: Clear to Auscultation, Normal Respiratory Effort Cardiovascular: Regular Rate, Regular Rhythm GI/Abdominal Exam: Normal Bowel Sounds, Soft, Non-Tender, No Organomegaly, No Distention, No Abnormal Bruit, No Mass Extremities: Normal Inspection, Normal Range of Motion, Non-Tender, No Pedal Edema, Normal Capillary Refill Skin: Warm, Dry, Intact Neurological: No New Focal Deficit Psy/Mental Status: Alert, Normal Affect, Normal Mood - Patient Data Lab Results Last 24 hrs: Laboratory Results - last 24 hr 02/10/21 02/10/21 Range/Units 05:50 05:50 WBC 4.23 (3.98-10.04) K/mm3 RBC 3.89 L (3.98-5.22) M/mm3 Hgb 11.8 (11.2-15.7) gm/dl Hct 37.8 (34.1-44.9) % MCV 97.2 H (79.4-94.8) fl MCH 30.3 (25.6-32.2) pg MCHC 31.2 L (32.2-35.5) g/dl RDW Std Deviation 57.4 H (36.4-46.3) fL Plt Count 159 L (182-369) K/mm3 MPV 10.5 (9.4-12.3) fl Neut % (Auto) 60.2 (34.0-71.1) % Lymph % (Auto) 25.1 (19.3-51.7) % Bowie % (Auto) 11.8 (4.7-12.5) % Eos % (Auto) 1.9 (0.7-5.8) Baso % (Auto) 0.5 (0.1-1.2) % Neut # (Auto) 2.55 (1.56-6.13) K/mm3 Lymph # (Auto) 1.06 L (1.18-3.74) K/mm3 Bowie # (Auto) 0.50 H (0.24-0.36) K/mm3 Eos # (Auto) 0.08 (0.04-0.36) K/mm3 Baso # (Auto) 0.02 (0.01-0.08) K/mm3 Sodium 137 (136-145) mEq/L Potassium 4.2 (3.5-5.1) mEq/L Chloride 102 (98-107) mEq/L Carbon Dioxide 26 (21-32) mEq/L Anion Gap 13.2 (5-15) BUN 6 L (7-18) mg/dL Creatinine 0.6 (0.55-1.02) mg/dL Est Cr Clr Drug Dosing 89.84 mL/min Estimated GFR (MDRD) > 60 (>60) mL/min BUN/Creatinine Ratio 10.0 L (14-18) Glucose 96 (70-99) mg/dL Calcium 8.2 L (8.5-10.1) mg/dL Phosphorus 4.1 (2.6-4.7) mg/dL Magnesium 1.6 L (1.8-2.4) mg/dL Total Bilirubin 0.3 (0.2-1.0) mg/dL AST 45 H (15-37) U/L ALT 58 (14-59) U/L Alkaline Phosphatase 103 (46-116) U/L Total Protein 5.2 L (6.4-8.2) g/dl Albumin 2.5 L (3.4-5.0) g/dl Globulin 2.7 gm/dL Albumin/Globulin Ratio 0.9 L (1-2) Result Diagrams: 02/10/21 05:50 02/10/21 05:50 Chance Results Last 24 hrs: Microbiology 02/08/21 05:10 Urine Culture - Final Urine Escherichia Coli Pansensitive Sepsis Event Note - Evaluation Sepsis Screening Result: No Definite Risk - Focused Exam Vital Signs: Vital Signs Temp Temp Pulse Pulse Resp BP BP 02/10/21 11:23 99.3 F 114 H 15 124/76 02/10/21 07:51 98.1 F 109 H 18 137/86 02/10/21 07:43 17 02/10/21 07:00 21 H 02/10/21 06:00 26 H 02/10/21 05:00 25 H 02/10/21 04:01 22 H 02/10/21 04:00 97.6 F 105 H 23 H 118/70 118/70 02/10/21 03:59 20 02/10/21 03:00 16 02/10/21 02:00 25 H 02/10/21 01:00 12 Pulse Ox 02/10/21 11:23 96 02/10/21 07:51 96 02/10/21 07:43 02/10/21 07:00 02/10/21 06:00 90 L 02/10/21 05:00 91 L 02/10/21 04:01 93 L 02/10/21 04:00 94 L 02/10/21 03:59 94 L 02/10/21 03:00 95 02/10/21 02:00 94 L 02/10/21 01:00 87 L - Problem List & Annotations (1) Alcohol abuse with physiological dependence SNOMED Code(s): 73421657, 54818051 Code(s): F10.20 - ALCOHOL DEPENDENCE, UNCOMPLICATED Status: Acute Current Visit: No (2) Alcohol withdrawal syndrome SNOMED Code(s): 416349474 Code(s): F10.239 - ALCOHOL DEPENDENCE WITH WITHDRAWAL, UNSPECIFIED Status: Acute Priority: High Current Visit: No Onset Date: ~06/15/20 Qualifiers: Complication of substance-induced condition: with perceptual disturbance Qualified Code(s): F10.232 - Alcohol dependence with withdrawal with perceptual disturbance - Problem List Review Problem List Initiated/Reviewed/Updated: Yes - Plan Plan:: 65-year-old female with a past medical history as mentioned above who presents to the emergency department in a drunken state and now requesting detox. Refused by rehab. 1. Alcohol abuse. 2. Acute alcohol withdrawal.Improving 3. History of requiring intubation during alcohol withdrawal. 4. History of prior cardiac arrest. 5. Hypertension. 6. Hypercholesterolemia. 7. History of asthma. 8. Multiple psychiatric disorders including alcohol abuse, bipolar disorder, major depression. 9. E. coli UTIpansensitive Plan: Transferred to medical floor Stop scheduled Ativan Continue CIWA protocol Continue vitamin replacement of folate and thiamine. Will need cognitive evaluation when off Ativan. Cognitive evaluation from spring of this year was moderate deficit Case management social work consult. PT and OT when able. Continue home medications otherwise. As needed Lopressor for tachycardia or rebound hypertension. Continue on Bactrim DS twice daily for total of 5 days. CODE STATUS: Full code. DVT prophylaxis with heparin.
[2021-02-10] MEDS ORDERED: Magnesium Sulfate/Water 2 GM in Premix Bag 1 BAG IV ONE (12:21)
[2021-02-10] MEDS: Thiamine 100 MG Tab PO SCH (21:48)
[2021-02-11] MEDS: Heparin Sodium 5,000 Units/ML Vial SUBCUT SCH ×4 (02:03→17:27)
[2021-02-11] MEDS: Folic Acid 1 MG Tab PO SCH (08:47)
[2021-02-11] MEDS: Sucralfate 1 GM Tab PO SCH ×4 (08:47→20:35)
[2021-02-11] MEDS: Sulfamethoxazole/Trimethoprim 800-160 MG Tab PO SCH ×2 (08:47→20:36)
[2021-02-11] MEDS: Pantoprazole 40 MG Tab.CR PO SCH ×2 (08:47→20:35)
[2021-02-11] MEDS: Magnesium Oxide 400 MG Tab PO SCH ×2 (08:47→20:35)
[2021-02-11] MEDS: Sodium Chloride 0.9% 10 ML Syringe FLUSH SCH ×2 (08:48→20:36)
--- NOTE | 2021-02-11 09:02 | PCM.PN ---
- General Info Date of Service: 02/11/21 Admission Dx/Problem (Free Text): Admission Diagnosis/Problem Admission Diagnosis/Problem Alcohol abuse Subjective Update: Patient complains of headache, otherwise just general malaise. - Review of Systems General: Reports: No Symptoms HEENT: Reports: Headaches Pulmonary: Reports: No Symptoms Cardiovascular: Reports: No Symptoms Gastrointestinal: Reports: No Symptoms Musculoskeletal: Reports: No Symptoms Skin: Reports: No Symptoms Neurological: Reports: No Symptoms Psychiatric: Reports: No Symptoms - Patient Data Vitals - Most Recent: Last Vital Signs Temp 99.3 F 02/11/21 07:27 Pulse 105 H 02/11/21 07:27 Resp 16 02/11/21 07:27 BP 116/74 02/11/21 07:27 Pulse Ox 95 02/11/21 07:27 Weight - Most Recent: 143 lb 14.4 oz I&O - Last 24 Hours: Intake & Output 02/10/21 02/11/21 02/11/21 22:59 06:59 14:59 Intake Total 819 450 Output Total 300 350 Balance 519 100 Chance Results Last 24 Hours: Microbiology 02/08/21 05:10 Urine Culture - Final Urine Escherichia Coli Med Orders - Current: Current Medications Docusate Sodium (Docusate Sodium 100 Mg Cap) 100 mg PO BID PRN PRN Reason: Constipation Folic Acid (Folic Acid 1 Mg Tab) 1 mg PO DAILY [facility] Last Admin: 02/11/21 08:47 Dose: 1 mg Documented by: Heparin Sodium (Porcine) (Heparin Sodium 5,000 Units/Ml Vial) 5,000 units S UBCUT Q8H [facility] Last Admin: 02/11/21 08:47 Dose: 5,000 units Documented by: Lorazepam (Lorazepam 2 Mg/Ml Sdv) 1 - 3 mg IV ASDIRECTED PRN; Protocol PRN Reason: Anxiety Magnesium Oxide (Magnesium Oxide 400 Mg Tab) 400 mg PO BID [facility] Last Admin: 02/11/21 08:47 Dose: 400 mg Documented by: Metoprolol Tartrate (Metoprolol Tartrate 25 Mg Tab) 25 mg PO Q6H PRN PRN Reason: See Label Comment Ondansetron HCl (Ondansetron 4 Mg Tab.Dis) 4 mg PO Q4H PRN PRN Reason: Nausea/Vomiting Last Admin: 02/10/21 21:48 Dose: 4 mg Documented by: Pantoprazole Sodium (Pantoprazole 40 Mg Tab.Cr) 40 mg PO BID [facility] Last Admin: 02/11/21 08:47 Dose: 40 mg Documented by: Sodium Chloride (Sodium Chloride 0.9% 10 Ml Syringe) 10 ml FLUSH ASDIRECTED PRN PRN Reason: Keep Vein Open Last Admin: 02/07/21 08:43 Dose: 10 ml Documented by: Sodium Chloride (Sodium Chloride 0.9% 10 Ml Syringe) 10 ml FLUSH 0900,2100 [facility] Last Admin: 02/11/21 08:48 Dose: 10 ml Documented by: Sucralfate (Sucralfate 1 Gm Tab) 1 gm PO QID [facility] Last Admin: 02/11/21 08:47 Dose: 1 gm Documented by: Thiamine HCl (Thiamine 100 Mg Tab) 100 mg PO BEDTIME [facility] Last Admin: 02/10/21 21:48 Dose: 100 mg Documented by: Trimethoprim/Sulfamethoxazole (Sulfamethoxazole/Trimethoprim 800-160 Mg Tab) 1 tab PO BID [facility] Last Admin: 02/11/21 08:47 Dose: 1 tab Documented by: Discontinued Medications Magnesium Sulfate 2 gm/ Premix 50 mls @ 25 mls/hr IV ONETIME ONE Stop: 02/10/21 14:20 Last Admin: 02/10/21 15:09 Dose: 25 mls/hr Documented by: Sodium Chloride (Normal Saline) 1,000 mls @ 999 mls/hr IV ONETIME [facility] Last Admin: 02/07/21 08:43 Dose: 999 mls/hr Documented by: Magnesium Sulfate 4 gm/ Premix 50 mls @ 12.5 mls/hr IV ONETIME ONE Stop: 02/07/21 13:32 Last Admin: 02/07/21 10:23 Dose: 12.5 mls/hr Documented by: Dextrose/Lactated Ringer's (Dextrose 5%-Lactated Ringers) 1,000 mls @ 999 mls/hr IV ASDIRECTED [facility] Last Admin: 02/07/21 10:23 Dose: 999 mls/hr Documented by: Sodium Chloride (Normal Saline) 1,000 mls @ 150 mls/hr IV ASDIRECTED [facility] Sodium Chloride (Normal Saline) 1,000 mls @ 150 mls/hr IV STAT STA Stop: 02/08/21 00:04 Last Admin: 02/07/21 17:26 Dose: 150 mls/hr Documented by: Lactated Ringer's (Ringers, Lactated) 1,000 mls @ 200 mls/hr IV ASDIRECTED [facility] Last Infusion: 02/08/21 07:53 Dose: 100 mls/hr Documented by: Lactated Ringer's (Ringers, Lactated) 1,000 mls @ 100 mls/hr IV ASDIRECTED [facility] Last Infusion: 02/10/21 02:48 Dose: 0 mls/hr Documented by: Lorazepam (Lorazepam 2 Mg/Ml Sdv) 1 mg IVPUSH ONETIME ONE Stop: 02/07/21 08:48 Last Admin: 02/07/21 09:07 Dose: 1 mg Documented by: Lorazepam (Lorazepam 1 Mg Tab) 1 mg PO ONETIME ONE Stop: 02/07/21 13:41 Last Admin: 02/07/21 14:01 Dose: 1 mg Documented by: Lorazepam (Lorazepam 2 Mg/Ml Sdv) 4 mg IVPUSH ONETIME ONE Stop: 02/07/21 17:37 Last Admin: 02/07/21 17:58 Dose: 4 mg Documented by: Lorazepam (Lorazepam 2 Mg/Ml Sdv) 4 mg IVPUSH Q2H [facility] Last Admin: 02/07/21 21:53 Dose: 4 mg Documented by: Lorazepam (Lorazepam 2 Mg/Ml Sdv) 0 mg IV ASDIRECTED [facility]; Protocol Lorazepam (Lorazepam 2 Mg/Ml Sdv) 4 mg IVPUSH Q4H [facility] Last Admin: 02/08/21 06:15 Dose: 4 mg Documented by: Lorazepam (Lorazepam 1 Mg Tab) 2 mg PO Q2H [facility] Last Admin: 02/08/21 10:06 Dose: Not Given Documented by: Lorazepam (Lorazepam 1 Mg Tab) 2 mg PO Q4H [facility] Last Admin: 02/08/21 11:00 Dose: Not Given Documented by: Lorazepam (Lorazepam 1 Mg Tab) 2 mg PO Q4H [facility] Last Admin: 02/08/21 16:04 Dose: 2 mg Documented by: Lorazepam (Lorazepam 1 Mg Tab) 1 mg PO Q6H [facility] Lorazepam (Lorazepam 1 Mg Tab) 2 mg PO Q6H [facility] Last Admin: 02/09/21 03:56 Dose: 2 mg Documented by: Lorazepam (Lorazepam 1 Mg Tab) 1 mg PO Q4H [facility] Last Admin: 02/10/21 06:28 Dose: 1 mg Documented by: Metoclopramide HCl (Metoclopramide 10 Mg/2 Ml Sdv) 7.5 mg IVPUSH ONETIME ONE Stop: 02/07/21 08:48 Last Admin: 02/07/21 09:07 Dose: 7.5 mg Documented by: Ondansetron HCl (Ondansetron 4 Mg/2 Ml Sdv) 4 mg IVPUSH ONETIME ONE Stop: 02/07/21 17:38 Last Admin: 02/07/21 18:00 Dose: 4 mg Documented by: Ondansetron HCl (Ondansetron 4 Mg/2 Ml Sdv) 4 mg IV Q4H PRN PRN Reason: Nausea/Vomiting Last Admin: 02/09/21 11:52 Dose: 4 mg Documented by: Pantoprazole Sodium (Pantoprazole 40 Mg Vial) 40 mg IV Q12HR [facility] Last Admin: 02/08/21 08:08 Dose: 40 mg Documented by: Sodium Chloride (Sodium Chloride 0.9% 10 Ml Syringe) 10 ml FLUSH ASDIRECTED PRN PRN Reason: Keep Vein Open - Exam General: Alert, Oriented HEENT: Pupils Equal, Mucous Membr. Moist/[place] Neck: Supple Lungs: Clear to Auscultation, Normal Respiratory Effort Cardiovascular: Regular Rate, Regular Rhythm GI/Abdominal Exam: Normal Bowel Sounds, Soft, Non-Tender, No Distention Extremities: Normal Inspection, Normal Range of Motion, Non-Tender, No Pedal Edema, Normal Capillary Refill Skin: Warm, Dry, Intact Neurological: No New Focal Deficit Psy/Mental Status: Alert, Normal Affect, Normal Mood - Patient Data Result Diagrams: 02/10/21 05:50 02/10/21 05:50 Chance Results Last 24 hrs: Microbiology 02/08/21 05:10 Urine Culture - Final Urine Escherichia Coli Sepsis Event Note - Evaluation Sepsis Screening Result: No Definite Risk - Focused Exam Vital Signs: Vital Signs Temp Pulse Resp BP Pulse Ox 02/11/21 07:27 99.3 F 105 H 16 116/74 95 02/11/21 02:06 98.2 F 93 16 115/63 96 02/10/21 21:45 98.1 F 99 13 123/77 95 - Problem List & Annotations (1) Alcohol abuse with physiological dependence SNOMED Code(s): 46837789, 18660632 Code(s): F10.20 - ALCOHOL DEPENDENCE, UNCOMPLICATED Status: Acute Current Visit: No (2) Alcohol withdrawal syndrome SNOMED Code(s): 196112930 Code(s): F10.239 - ALCOHOL DEPENDENCE WITH WITHDRAWAL, UNSPECIFIED Status: Acute Priority: High Current Visit: No Onset Date: ~06/15/20 Qualifiers: Complication of substance-induced condition: with perceptual disturbance Qualified Code(s): F10.232 - Alcohol dependence with withdrawal with perceptual disturbance - Problem List Review Problem List Initiated/Reviewed/Updated: Yes - My Orders Last 24 Hours: My Active Orders 02/13/21 08:00 Consult to Speech Language Pathology [POLICY SPECIALIST Evaluation and Treatment] [CONS] Routine - Plan Plan:: 65-year-old female with a past medical history as mentioned above who presents to the emergency department in a drunken state and now requesting detox. Refused by rehab. 1. Alcohol abuse. 2. Acute alcohol withdrawal.Resolved 3. History of requiring intubation during alcohol withdrawal. 4. History of prior cardiac arrest. 5. Hypertension.Stable 6. Hypercholesterolemia. 7. History of asthma. 8. Multiple psychiatric disorders including alcohol abuse, bipolar disorder, major depression. 9. E. coli UTIpansensitive Plan: Transferred to medical floor Stop scheduled Ativan Continue CIWA protocol Continue vitamin replacement of folate and thiamine. [facility] eval Case management social work consult. PT and OT when able. Continue home medications otherwise. As needed Lopressor for tachycardia or rebound hypertension. Continue on Bactrim DS twice daily for total of 5 days. CODE STATUS: Full code. DVT prophylaxis with heparin. Discharge pending placement.
[2021-02-11] MEDS: Ondansetron 4 MG Tab.DIS PO PRN ×2 (14:27→20:36)
[2021-02-11] MEDS: Thiamine 100 MG Tab PO SCH (20:36)
[2021-02-12] MEDS: Ondansetron 4 MG Tab.DIS PO PRN ×5 (00:06→22:57)
[2021-02-12] MEDS: Heparin Sodium 5,000 Units/ML Vial SUBCUT SCH ×4 (00:50→17:04)
[2021-02-12] MEDS: Sulfamethoxazole/Trimethoprim 800-160 MG Tab PO SCH ×3 (08:04→22:58)
[2021-02-12] MEDS: Folic Acid 1 MG Tab PO SCH (08:04)
[2021-02-12] MEDS: Pantoprazole 40 MG Tab.CR PO SCH ×3 (08:04→22:58)
[2021-02-12] MEDS: Magnesium Oxide 400 MG Tab PO SCH ×3 (08:04→22:58)
[2021-02-12] MEDS: Sucralfate 1 GM Tab PO SCH ×5 (08:04→22:57)
[2021-02-12] MEDS: Sodium Chloride 0.9% 10 ML Syringe FLUSH SCH ×2 (08:05→22:58)
[2021-02-12] MEDS: Acetaminophen 325 MG Tab PO PRN ×3 (10:25→23:54)
--- NOTE | 2021-02-12 10:47 | PCM.PN ---
- General Info Date of Service: 02/12/21 Admission Dx/Problem (Free Text): Admission Diagnosis/Problem Admission Diagnosis/Problem Alcohol abuse Subjective Update: Patient states that she has a headache this morning. Nursing did give her Tylenol without improvement so far. Functional Status: Denies: Pain Controlled - Review of Systems General: Reports: Fatigue HEENT: Reports: No Symptoms Pulmonary: Reports: No Symptoms Cardiovascular: Reports: No Symptoms Gastrointestinal: Reports: No Symptoms Musculoskeletal: Reports: No Symptoms - Patient Data Vitals - Most Recent: Last Vital Signs Temp 98.6 F 02/12/21 07:36 Pulse 98 02/12/21 07:36 Resp 16 02/12/21 07:36 BP 125/69 02/12/21 07:36 Pulse Ox 95 02/12/21 07:36 Weight - Most Recent: 141 lb 11.2 oz I&O - Last 24 Hours: Intake & Output 02/11/21 02/12/21 02/12/21 22:59 06:59 14:59 Intake Total 1235 1100 Balance 1235 1100 Med Orders - Current: Current Medications Acetaminophen (Acetaminophen 325 Mg Tab) 650 mg PO Q4H PRN PRN Reason: Pain (mild 1-3) Last Admin: 02/12/21 10:25 Dose: 650 mg Documented by: Docusate Sodium (Docusate Sodium 100 Mg Cap) 100 mg PO BID PRN PRN Reason: Constipation Folic Acid (Folic Acid 1 Mg Tab) 1 mg PO DAILY [facility] Last Admin: 02/12/21 08:04 Dose: 1 mg Documented by: Heparin Sodium (Porcine) (Heparin Sodium 5,000 Units/Ml Vial) 5,000 units SUBCUT Q8H [facility] Last Admin: 02/12/21 10:25 Dose: 5,000 units Documented by: Ketorolac Tromethamine (Ketorolac 30 Mg/Ml Sdv) 30 mg IVPUSH Q6H PRN PRN Reason: Pain Lorazepam (Lorazepam 2 Mg/Ml Sdv) 1 - 3 mg IV ASDIRECTED PRN; Protocol PRN Reason: Anxiety Magnesium Oxide (Magnesium Oxide 400 Mg Tab) 400 mg PO BID [facility] Last Admin: 02/12/21 08:04 Dose: 400 mg Documented by: Metoclopramide HCl (Metoclopramide 10 Mg/2 Ml Sdv) 10 mg IVPUSH Q8H PRN PRN Reason: Nausea/Vomiting Metoprolol Tartrate (Metoprolol Tartrate 25 Mg Tab) 25 mg PO Q6H PRN PRN Reason: See Label Comment Ondansetron HCl (Ondansetron 4 Mg Tab.Dis) 4 mg PO Q4H PRN PRN Reason: Nausea/Vomiting Last Admin: 02/12/21 08:10 Dose: 4 mg Documented by: Pantoprazole Sodium (Pantoprazole 40 Mg Tab.Cr) 40 mg PO BID [facility] Last Admin: 02/12/21 08:04 Dose: 40 mg Documented by: Sodium Chloride (Sodium Chloride 0.9% 10 Ml Syringe) 10 ml FLUSH ASDIRECTED PRN PRN Reason: Keep Vein Open Last Admin: 02/07/21 08:43 Dose: 10 ml Documented by: Sodium Chloride (Sodium Chloride 0.9% 10 Ml Syringe) 10 ml FLUSH 0900,2100 [facility] Last Admin: 02/12/21 08:05 Dose: 10 ml Documented by: Sucralfate (Sucralfate 1 Gm Tab) 1 gm PO QID [facility] Last Admin: 02/12/21 08:04 Dose: 1 gm Documented by: Thiamine HCl (Thiamine 100 Mg Tab) 100 mg PO BEDTIME [facility] Last Admin: 02/11/21 20:36 Dose: 100 mg Documented by: Trimethoprim/Sulfamethoxazole (Sulfamethoxazole/Trimethoprim 800-160 Mg Tab) 1 tab PO BID [facility] Last Admin: 02/12/21 08:04 Dose: 1 tab Documented by: Discontinued Medications Magnesium Sulfate 2 gm/ Premix 50 mls @ 25 mls/hr IV ONETIME ONE Stop: 02/10/21 14:20 Last Admin: 02/10/21 15:09 Dose: 25 mls/hr Documented by: Sodium Chloride (Normal Saline) 1,000 mls @ 999 mls/hr IV ONETIME [facility] Last Admin: 02/07/21 08:43 Dose: 999 mls/hr Documented by: Magnesium Sulfate 4 gm/ Premix 50 mls @ 12.5 mls/hr IV ONETIME ONE Stop: 02/07/21 13:32 Last Admin: 02/07/21 10:23 Dose: 12.5 mls/hr Documented by: Dextrose/Lactated Ringer's (Dextrose 5%-Lactated Ringers) 1,000 mls @ 999 mls/hr IV ASDIRECTED [facility] Last Admin: 02/07/21 10:23 Dose: 999 mls/hr Documented by: Sodium Chloride (Normal Saline) 1,000 mls @ 150 mls/hr IV ASDIRECTED [facility] Sodium Chloride (Normal Saline) 1,000 mls @ 150 mls/hr IV STAT STA Stop: 02/08/21 00:04 Last Admin: 02/07/21 17:26 Dose: 150 mls/hr Documented by: Lactated Ringer's (Ringers, Lactated) 1,000 mls @ 200 mls/hr IV ASDIRECTED [facility] Last Infusion: 02/08/21 07:53 Dose: 100 mls/hr Documented by: Lactated Ringer's (Ringers, Lactated) 1,000 mls @ 100 mls/hr IV ASDIRECTED [facility] Last Infusion: 02/10/21 02:48 Dose: 0 mls/hr Documented by: Lorazepam (Lorazepam 2 Mg/Ml Sdv) 1 mg IVPUSH ONETIME ONE Stop: 02/07/21 08:48 Last Admin: 02/07/21 09:07 Dose: 1 mg Documented by: Lorazepam (Lorazepam 1 Mg Tab) 1 mg PO ONETIME ONE Stop: 02/07/21 13:41 Last Admin: 02/07/21 14:01 Dose: 1 mg Documented by: Lorazepam (Lorazepam 2 Mg/Ml Sdv) 4 mg IVPUSH ONETIME ONE Stop: 02/07/21 17:37 Last Admin: 02/07/21 17:58 Dose: 4 mg Documented by: Lorazepam (Lorazepam 2 Mg/Ml Sdv) 4 mg IVPUSH Q2H [facility] Last Admin: 02/07/21 21:53 Dose: 4 mg Documented by: Lorazepam (Lorazepam 2 Mg/Ml Sdv) 0 mg IV ASDIRECTED [facility]; Protocol Lorazepam (Lorazepam 2 Mg/Ml Sdv) 4 mg IVPUSH Q4H [facility] Last Admin: 02/08/21 06:15 Dose: 4 mg Documented by: Lorazepam (Lorazepam 1 Mg Tab) 2 mg PO Q2H [facility] Last Admin: 02/08/21 10:06 Dose: Not Given Documented by: Lorazepam (Lorazepam 1 Mg Tab) 2 mg PO Q4H [facility] Last Admin: 02/08/21 11:00 Dose: Not Given Documented by: Lorazepam (Lorazepam 1 Mg Tab) 2 mg PO Q4H [facility] Last Admin: 02/08/21 16:04 Dose: 2 mg Documented by: Lorazepam (Lorazepam 1 Mg Tab) 1 mg PO Q6H [facility] Lorazepam (Lorazepam 1 Mg Tab) 2 mg PO Q6H [facility] Last Admin: 02/09/21 03:56 Dose: 2 mg Documented by: Lorazepam (Lorazepam 1 Mg Tab) 1 mg PO Q4H [facility] Last Admin: 02/10/21 06:28 Dose: 1 mg Documented by: Metoclopramide HCl (Metoclopramide 10 Mg/2 Ml Sdv) 7.5 mg IVPUSH ONETIME ONE Stop: 02/07/21 08:48 Last Admin: 02/07/21 09:07 Dose: 7.5 mg Documented by: Ondansetron HCl (Ondansetron 4 Mg/2 Ml Sdv) 4 mg IVPUSH ONETIME ONE Stop: 02/07/21 17:38 Last Admin: 02/07/21 18:00 Dose: 4 mg Documented by: Ondansetron HCl (Ondansetron 4 Mg/2 Ml Sdv) 4 mg IV Q4H PRN PRN Reason: Nausea/Vomiting Last Admin: 02/09/21 11:52 Dose: 4 mg Documented by: Pantoprazole Sodium (Pantoprazole 40 Mg Vial) 40 mg IV Q12HR [facility] Last Admin: 02/08/21 08:08 Dose: 40 mg Documented by: Sodium Chloride (Sodium Chloride 0.9% 10 Ml Syringe) 10 ml FLUSH ASDIRECTED PRN PRN Reason: Keep Vein Open - Exam Quality Assessment: No: Supplemental Oxygen General: Alert, Oriented HEENT: Pupils Equal, Mucous Membr. Moist/[place] Neck: Supple Lungs: Clear to Auscultation, Normal Respiratory Effort Cardiovascular: Regular Rate, Regular Rhythm GI/Abdominal Exam: Normal Bowel Sounds, Soft, Non-Tender, No Organomegaly, No Distention, No Abnormal Bruit, No Mass, Pelvis Stable Extremities: Normal Inspection, Normal Range of Motion, Non-Tender, No Pedal Edema, Normal Capillary Refill Skin: Warm, Dry, Intact Neurological: No New Focal Deficit Psy/Mental Status: Alert, Normal Affect, Normal Mood - Patient Data Result Diagrams: 02/10/21 05:50 02/10/21 05:50 Sepsis Event Note - Evaluation Sepsis Screening Result: No Definite Risk - Focused Exam Vital Signs: Vital Signs Temp Pulse Resp BP Pulse Ox 02/12/21 07:36 98.6 F 98 16 125/69 95 02/12/21 05:01 98.4 F 92 14 125/69 96 02/12/21 00:06 98.2 F 98 13 110/79 95 - Problem List & Annotations (1) Alcohol abuse with physiological dependence SNOMED Code(s): 60395844, 53253148 Code(s): F10.20 - ALCOHOL DEPENDENCE, UNCOMPLICATED Status: Acute Current Visit: No (2) Alcohol withdrawal syndrome SNOMED Code(s): 050117754 Code(s): F10.239 - ALCOHOL DEPENDENCE WITH WITHDRAWAL, UNSPECIFIED Status: Acute Priority: High Current Visit: No Onset Date: ~06/15/20 Qualifiers: Complication of substance-induced condition: with perceptual disturbance Qualified Code(s): F10.232 - Alcohol dependence with withdrawal with perceptual disturbance - Problem List Review Problem List Initiated/Reviewed/Updated: Yes - My Orders Last 24 Hours: My Active Orders 02/12/21 10:14 Acetaminophen [TylenoL] 650 mg PO Q4H PRN 02/12/21 10:34 Ketorolac [Toradol] 30 mg IVPUSH Q6H PRN 02/12/21 10:35 Metoclopramide [Reglan] 10 mg IVPUSH Q8H PRN 02/13/21 08:00 Consult to Speech Language Pathology [CAN PUSHER Evaluation and Treatment] [CONS] Routine - Plan Plan:: 65-year-old female with a past medical history as mentioned above who presents to the emergency department in a drunken state and now requesting detox. Refused by rehab. 1. Alcohol abuse. 2. Acute alcohol withdrawal.Resolved 3. History of requiring intubation during alcohol withdrawal. 4. History of prior cardiac arrest. 5. Hypertension.Stable 6. Hypercholesterolemia. 7. History of asthma. 8. Multiple psychiatric disorders including alcohol abuse, bipolar disorder, major depression. 9. E. coli UTIpansensitive 10. Headache Plan: MSP status Stop scheduled Ativan Continue CIWA protocol Continue vitamin replacement of folate and thiamine. Cog eval Case management social work consult. PT and OT when able. Continue home medications otherwise. As needed Lopressor for tachycardia or rebound hypertension. Continue on Bactrim DS twice daily for total of 5 days. Toradol 30 mg IV q. 6 hours as needed headache Reglan 10 mg every 8 hours as needed nausea CODE STATUS: Full code. DVT prophylaxis with heparin. Discharge pending placement.
[2021-02-12] MEDS: Metoclopramide 10 MG/2 ML SDV IVPUSH PRN ×2 (10:56→20:17)
[2021-02-12] MEDS: Ketorolac 30 MG/ML SDV IVPUSH PRN ×2 (10:56→18:00)
[2021-02-12] MEDS: Thiamine 100 MG Tab PO SCH ×2 (19:42→23:54)
[2021-02-13] MEDS: Heparin Sodium 5,000 Units/ML Vial SUBCUT SCH ×2 (01:00→09:01)
[2021-02-13] MEDS: Ondansetron 4 MG Tab.DIS PO PRN ×3 (02:59→11:05)
[2021-02-13] MEDS: Metoclopramide 10 MG/2 ML SDV IVPUSH PRN ×2 (04:11→12:13)
[2021-02-13] MEDS: Ketorolac 30 MG/ML SDV IVPUSH PRN (06:48)
[2021-02-13] MEDS: Folic Acid 1 MG Tab PO SCH (08:52)
[2021-02-13] MEDS: Magnesium Oxide 400 MG Tab PO SCH (08:52)
[2021-02-13] MEDS: Pantoprazole 40 MG Tab.CR PO SCH (08:52)
[2021-02-13] MEDS: Sulfamethoxazole/Trimethoprim 800-160 MG Tab PO SCH (08:53)
[2021-02-13] MEDS: Sodium Chloride 0.9% 10 ML Syringe FLUSH SCH (08:53)
[2021-02-13] MEDS: Sucralfate 1 GM Tab PO SCH ×2 (08:59→12:12)
--- NOTE | 2021-02-13 09:32 | PCM.PN ---
- General Info Date of Service: 02/13/21 Admission Dx/Problem (Free Text): Admission Diagnosis/Problem Admission Diagnosis/Problem Alcohol abuse Subjective Update: Patient continues to have headaches otherwise no change overnight. Functional Status: Reports: Pain Controlled - Review of Systems General: Reports: No Symptoms HEENT: Reports: No Symptoms Pulmonary: Reports: No Symptoms Cardiovascular: Reports: No Symptoms Gastrointestinal: Reports: No Symptoms Musculoskeletal: Reports: No Symptoms - Patient Data Vitals - Most Recent: Last Vital Signs Temp 97.7 F 02/13/21 07:39 Pulse 89 02/13/21 07:39 Resp 20 02/13/21 07:39 BP 100/73 02/13/21 07:39 Pulse Ox 96 02/13/21 07:39 Weight - Most Recent: 136 lb 1.6 oz I&O - Last 24 Hours: Intake & Output 02/12/21 02/13/21 02/13/21 22:59 06:59 14:59 Intake Total 1037 460 Output Total 300 Balance 1037 160 Lab Results Last 24 Hours: Laboratory Results - last 24 hr 02/13/21 Range/Units 06:05 Sodium 134 L (136-145) mEq/L Potassium 4.0 (3.5-5.1) mEq/L Chloride 101 (98-107) mEq/L Carbon Dioxide 24 (21-32) mEq/L Anion Gap 13.0 (5-15) BUN 14 (7-18) mg/dL Creatinine 0.7 (0.55-1.02) mg/dL Est Cr Clr Drug Dosing 77.01 mL/min Estimated GFR (MDRD) > 60 (>60) mL/min BUN/Creatinine Ratio 20.0 H (14-18) Glucose 120 H (70-99) mg/dL Calcium 8.4 L (8.5-10.1) mg/dL Magnesium 1.8 (1.8-2.4) mg/dL Total Bilirubin 0.2 (0.2-1.0) mg/dL AST 76 H (15-37) U/L ALT 74 H (14-59) U/L Alkaline Phosphatase 88 (46-116) U/L Total Protein 5.3 L (6.4-8.2) g/dl Albumin 2.8 L (3.4-5.0) g/dl Globulin 2.5 gm/dL Albumin/Globulin Ratio 1.1 (1-2) Med Orders - Current: Current Medications Acetaminophen (Acetaminophen 325 Mg Tab) 650 mg PO Q4H PRN PRN Reason: Pain (mild 1-3) Last Admin: 02/12/21 23:54 Dose: 650 mg Documented by: Docusate Sodium (Docusate Sodium 100 Mg Cap) 100 mg PO BID PRN PRN Reason: Constipation Folic Acid (Folic Acid 1 Mg Tab) 1 mg PO DAILY [facility] Last Admin: 02/13/21 08:52 Dose: 1 mg Documented by: Heparin Sodium (Porcine) (Heparin Sodium 5,000 Units/Ml Vial) 5,000 units SUBCUT Q8H [facility] Last Admin: 02/13/21 09:01 Dose: 5,000 units Documented by: Ketorolac Tromethamine (Ketorolac 30 Mg/Ml Sdv) 30 mg IVPUSH Q6H PRN PRN Reason: Pain Last Admin: 02/13/21 06:48 Dose: 30 mg Documented by: Lorazepam (Lorazepam 2 Mg/Ml Sdv) 1 - 3 mg IV ASDIRECTED PRN; Protocol PRN Reason: Anxiety Magnesium Oxide (Magnesium Oxide 400 Mg Tab) 400 mg PO BID [facility] Last Admin: 02/13/21 08:52 Dose: 400 mg Documented by: Metoclopramide HCl (Metoclopramide 10 Mg/2 Ml Sdv) 10 mg IVPUSH Q8H PRN PRN Reason: Nausea/Vomiting Last Admin: 02/13/21 04:11 Dose: 10 mg Documented by: Metoprolol Tartrate (Metoprolol Tartrate 25 Mg Tab) 25 mg PO Q6H PRN PRN Reason: See Label Comment Ondansetron HCl (Ondansetron 4 Mg Tab.Dis) 4 mg PO Q4H PRN PRN Reason: Nausea/Vomiting Last Admin: 02/13/21 06:29 Dose: 4 mg Documented by: Pantoprazole Sodium (Pantoprazole 40 Mg Tab.Cr) 40 mg PO BID [facility] Last Admin: 02/13/21 08:52 Dose: 40 mg Documented by: Sodium Chloride (Sodium Chloride 0.9% 10 Ml Syringe) 10 ml FLUSH ASDIRECTED PRN PRN Reason: Keep Vein Open Last Admin: 02/07/21 08:43 Dose: 10 ml Documented by: Sodium Chloride (Sodium Chloride 0.9% 10 Ml Syringe) 10 ml FLUSH 0900,2100 [facility] Last Admin: 02/13/21 08:53 Dose: 10 ml Documented by: Sucralfate (Sucralfate 1 Gm Tab) 1 gm PO QID [facility] Last Admin: 02/13/21 08:59 Dose: 1 gm Documented by: Thiamine HCl (Thiamine 100 Mg Tab) 100 mg PO BEDTIME [facility] Last Admin: 02/12/21 23:54 Dose: Not Given Documented by: Trimethoprim/Sulfamethoxazole (Sulfamethoxazole/Trimethoprim 800-160 Mg Tab) 1 tab PO BID [facility] Last Admin: 02/13/21 08:53 Dose: 1 tab Documented by: Discontinued Medications Magnesium Sulfate 2 gm/ Premix 50 mls @ 25 mls/hr IV ONETIME ONE Stop: 02/10/21 14:20 Last Admin: 02/10/21 15:09 Dose: 25 mls/hr Documented by: Sodium Chloride (Normal Saline) 1,000 mls @ 999 mls/hr IV ONETIME [facility] Last Admin: 02/07/21 08:43 Dose: 999 mls/hr Documented by: Magnesium Sulfate 4 gm/ Premix 50 mls @ 12.5 mls/hr IV ONETIME ONE Stop: 02/07/21 13:32 Last Admin: 02/07/21 10:23 Dose: 12.5 mls/hr Documented by: Dextrose/Lactated Ringer's (Dextrose 5%-Lactated Ringers) 1,000 mls @ 999 mls/hr IV ASDIRECTED [facility] Last Admin: 02/07/21 10:23 Dose: 999 mls/hr Documented by: Sodium Chloride (Normal Saline) 1,000 mls @ 150 mls/hr IV ASDIRECTED [facility] Sodium Chloride (Normal Saline) 1,000 mls @ 150 mls/hr IV STAT STA Stop: 02/08/21 00:04 Last Admin: 02/07/21 17:26 Dose: 150 mls/hr Documented by: Lactated Ringer's (Ringers, Lactated) 1,000 mls @ 200 mls/hr IV ASDIRECTED [facility] Last Infusion: 02/08/21 07:53 Dose: 100 mls/hr Documented by: Lactated Ringer's (Ringers, Lactated) 1,000 mls @ 100 mls/hr IV ASDIRECTED [facility] Last Infusion: 02/10/21 02:48 Dose: 0 mls/hr Documented by: Lorazepam (Lorazepam 2 Mg/Ml Sdv) 1 mg IVPUSH ONETIME ONE Stop: 02/07/21 08:48 Last Admin: 02/07/21 09:07 Dose: 1 mg Documented by: Lorazepam (Lorazepam 1 Mg Tab) 1 mg PO ONETIME ONE Stop: 02/07/21 13:41 Last Admin: 02/07/21 14:01 Dose: 1 mg Documented by: Lorazepam (Lorazepam 2 Mg/Ml Sdv) 4 mg IVPUSH ONETIME ONE Stop: 02/07/21 17:37 Last Admin: 02/07/21 17:58 Dose: 4 mg Documented by: Lorazepam (Lorazepam 2 Mg/Ml Sdv) 4 mg IVPUSH Q2H [facility] Last Admin: 02/07/21 21:53 Dose: 4 mg Documented by: Lorazepam (Lorazepam 2 Mg/Ml Sdv) 0 mg IV ASDIRECTED [facility]; Protocol Lorazepam (Lorazepam 2 Mg/Ml Sdv) 4 mg IVPUSH Q4H [facility] Last Admin: 02/08/21 06:15 Dose: 4 mg Documented by: Lorazepam (Lorazepam 1 Mg Tab) 2 mg PO Q2H [facility] Last Admin: 02/08/21 10:06 Dose: Not Given Documented by: Lorazepam (Lorazepam 1 Mg Tab) 2 mg PO Q4H [facility] Last Admin: 02/08/21 11:00 Dose: Not Given Documented by: Lorazepam (Lorazepam 1 Mg Tab) 2 mg PO Q4H [facility] Last Admin: 02/08/21 16:04 Dose: 2 mg Documented by: Lorazepam (Lorazepam 1 Mg Tab) 1 mg PO Q6H [facility] Lorazepam (Lorazepam 1 Mg Tab) 2 mg PO Q6H [facility] Last Admin: 02/09/21 03:56 Dose: 2 mg Documented by: Lorazepam (Lorazepam 1 Mg Tab) 1 mg PO Q4H [facility] Last Admin: 02/10/21 06:28 Dose: 1 mg Documented by: Metoclopramide HCl (Metoclopramide 10 Mg/2 Ml Sdv) 7.5 mg IVPUSH ONETIME ONE Stop: 02/07/21 08:48 Last Admin: 02/07/21 09:07 Dose: 7.5 mg Documented by: Ondansetron HCl (Ondansetron 4 Mg/2 Ml Sdv) 4 mg IVPUSH ONETIME ONE Stop: 02/07/21 17:38 Last Admin: 02/07/21 18:00 Dose: 4 mg Documented by: Ondansetron HCl (Ondansetron 4 Mg/2 Ml Sdv) 4 mg IV Q4H PRN PRN Reason: Nausea/Vomiting Last Admin: 02/09/21 11:52 Dose: 4 mg Documented by: Pantoprazole Sodium (Pantoprazole 40 Mg Vial) 40 mg IV Q12HR [facility] Last Admin: 02/08/21 08:08 Dose: 40 mg Documented by: Sodium Chloride (Sodium Chloride 0.9% 10 Ml Syringe) 10 ml FLUSH ASDIRECTED PRN PRN Reason: Keep Vein Open - Exam Quality Assessment: No: Supplemental Oxygen General: Alert, Oriented HEENT: Pupils Equal, Mucous Membr. Moist/[place] Neck: Supple Lungs: Clear to Auscultation, Normal Respiratory Effort Cardiovascular: Regular Rate, Regular Rhythm GI/Abdominal Exam: Normal Bowel Sounds, Soft, Non-Tender, No Organomegaly, No Distention, No Abnormal Bruit, No Mass Extremities: Normal Inspection, Normal Range of Motion, Non-Tender, No Pedal Edema, Normal Capillary Refill - Patient Data Lab Results Last 24 hrs: Laboratory Results - last 24 hr 02/13/21 Range/Units 06:05 Sodium 134 L (136-145) mEq/L Potassium 4.0 (3.5-5.1) mEq/L Chloride 101 (98-107) mEq/L Carbon Dioxide 24 (21-32) mEq/L Anion Gap 13.0 (5-15) BUN 14 (7-18) mg/dL Creatinine 0.7 (0.55-1.02) mg/dL Est Cr Clr Drug Dosing 77.01 mL/min Estimated GFR (MDRD) > 60 (>60) mL/min BUN/Creatinine Ratio 20.0 H (14-18) Glucose 120 H (70-99) mg/dL Calcium 8.4 L (8.5-10.1) mg/dL Magnesium 1.8 (1.8-2.4) mg/dL Total Bilirubin 0.2 (0.2-1.0) mg/dL AST 76 H (15-37) U/L ALT 74 H (14-59) U/L Alkaline Phosphatase 88 (46-116) U/L Total Protein 5.3 L (6.4-8.2) g/dl Albumin 2.8 L (3.4-5.0) g/dl Globulin 2.5 gm/dL Albumin/Globulin Ratio 1.1 (1-2) Result Diagrams: 02/10/21 05:50 02/13/21 06:05 Sepsis Event Note - Evaluation Sepsis Screening Result: No Definite Risk - Focused Exam Vital Signs: Vital Signs Temp Pulse Resp BP Pulse Ox 02/13/21 07:39 97.7 F 89 20 100/73 96 02/13/21 03:03 97.9 F 85 18 120/70 97 02/12/21 23:01 98.2 F 95 18 117/71 96 - Problem List & Annotations (1) Alcohol abuse with physiological dependence SNOMED Code(s): 53690480, 65617023 Code(s): F10.20 - ALCOHOL DEPENDENCE, UNCOMPLICATED Status: Acute Current Visit: No (2) Alcohol withdrawal syndrome SNOMED Code(s): 892446265 Code(s): F10.239 - ALCOHOL DEPENDENCE WITH WITHDRAWAL, UNSPECIFIED Status: Acute Priority: High Current Visit: No Onset Date: ~06/15/20 Qualifiers: Complication of substance-induced condition: with perceptual disturbance Qualified Code(s): F10.232 - Alcohol dependence with withdrawal with perceptual disturbance - Problem List Review Problem List Initiated/Reviewed/Updated: Yes - My Orders Last 24 Hours: My Active Orders 02/12/21 10:14 Acetaminophen [TylenoL] 650 mg PO Q4H PRN 02/12/21 10:34 Ketorolac [Toradol] 30 mg IVPUSH Q6H PRN 02/12/21 10:35 Metoclopramide [Reglan] 10 mg IVPUSH Q8H PRN 02/13/21 08:00 Consult to Speech Language Pathology [SEISMOGRAPH OPERATOR HELPER Evaluation and Treatment] [CONS] Routine - Plan Plan:: 65-year-old female with a past medical history as mentioned above who presents to the emergency department in a drunken state and now requesting detox. Refused by rehab. 1. Alcohol abuse. 2. Acute alcohol withdrawal.Resolved 3. History of requiring intubation during alcohol withdrawal. 4. History of prior cardiac arrest. 5. Hypertension.Stable 6. Hypercholesterolemia. 7. History of asthma. 8. Multiple psychiatric disorders including alcohol abuse, bipolar disorder, major depression. 9. E. coli UTIpansensitive 10. Headache Plan: MSP status Stop scheduled Ativan Continue CIWA protocol Continue vitamin replacement of folate and thiamine. [facility] [place] Case management social work consult. PT and OT when able. Continue home medications otherwise. As needed Lopressor for tachycardia or rebound hypertension. Stop Bactrim DS twice daily for total of 5 days. Toradol 30 mg IV q. 6 hours as needed headache Reglan 10 mg every 8 hours as needed nausea CODE STATUS: Full code. DVT prophylaxis with heparin. Discharge pending placement.
[2021-02-13 15:15] VITALS: BP 109/63; PULSE 96
--- NOTE | 2021-02-13 16:22 | PCM.DCSUM1 ---
Discharge Summary - Hospital Course HPI Initial Comments: - History of Present Illness Initial Comments - Free Text/Narative: 65-year-old female with a past medical history as listed below who is well-known to this hospital for multiple admissions regarding alcohol abuse and withdrawal, who presents again today in a drunken state with an alcohol level of 250. The patient is not very forthcoming about how much alcohol she really drinks. She even states that her last drink was yesterday morning even though clearly she shows up intoxicated today. She showed up earlier this morning. Supposedly she only drinks 1 to 2 ounces of hard liquor at a time. She does not quantify how many she takes a day. She is very adamant that she only uses shooters of alcohol at a time. She denies any mixed drinks. She has had ongoing psychiatric issues as far as depression which has led her to drinking over the past 20 years heavily. She has been intubated before. She denies any prior seizure. She has been in and out of our emergency department multiple times over the past couple of months and in the [facility] rehab facility for which she was just discharged from about 3 days ago. She has been drinking since discharge. She states that she has felt awful overall. She has had some nausea. She had an episode of vomiting yesterday. No black or blood noted. Currently she feels shaky and denies any hallucinations. The patient presented earlier this morning. She has been presented to the internal medicine service 9 hours later for admission. Attempts were made to get her to rehab again however they declined her admission. Please see ER notes as to that specific reasoning. The patient last received medications for what appeared to be alcohol withdrawal symptoms approximately 4 hours ago. A 14 point review of systems was attempted with the patient however rather fu blairee as she is only asking to get Ativan and Zofran. She is not providing any further history. CODE STATUS: Reviewed and she wishes to be full code. Assessment/Plan Comment:: 65-year-old female with a past medical history as mentioned above who presents to the emergency department in a drunken state and now requesting detox. Refused by rehab. 1. Alcohol abuse. 2. Acute alcohol withdrawal. 3. History of requiring intubation during alcohol withdrawal. 4. History of prior cardiac arrest. 5. Hypertension. 6. Hypercholesterolemia. 7. History of asthma. 8. Multiple psychiatric disorders including alcohol abuse, bipolar disorder, major depression. Plan: Admit to the hospital under the hospitalist service for ongoing management of acute alcohol withdrawal. We will schedule Ativan as well as invoke the CIWA protocol. If symptoms escalate and she continues with high CIWA scores, the patient will be started immediately on dexmedetomidine and titrated to a RASS of -1. Vitamin replacement of folate and thiamine. Case management social work consult. PT and OT when able. Continue home medications otherwise. As needed Lopressor for tachycardia or rebound hypertension. CODE STATUS: Full code. DVT prophylaxis with heparin. Diagnosis: Stroke: No - Discharge Data Discharge Date: 02/13/21 Discharge Disposition: DC/Tfer to Inpt Rehab Fac 62 Condition: Good - Referral to Home Health Primary Care Physician: PCP None - Discharge Diagnosis/Problem(s) (1) Alcohol abuse with physiological dependence SNOMED Code(s): 41262794, 38815640 ICD Code: F10.20 - ALCOHOL DEPENDENCE, UNCOMPLICATED Status: Acute Current Visit: No (2) Alcohol withdrawal syndrome SNOMED Code(s): 367582529 ICD Code: F10.239 - ALCOHOL DEPENDENCE WITH WITHDRAWAL, UNSPECIFIED Status: Acute Priority: High Current Visit: No Onset Date: ~06/15/20 Qualifiers: Complication of substance-induced condition: with perceptual disturbance Qualified Code(s): F10.232 - Alcohol dependence with withdrawal with perceptual disturbance - Patient Summary/Data Consults: Consultations 02/08/21 09:54 Consult to Occupational Therapy [OT Evaluation and Treatment] [CONS] Routine PT Evaluation and Treatment [CONS] Routine 02/13/21 08:00 Consult to Speech Language Pathology [INFECTION PREVENTION PRACTITIONER Evaluation and Treatment] [CONS] Routine Hospital Course: Patient was admitted to the ICU and started on scheduled lorazepam. UTI which did grow out E. coli pansensitive. She was started on Bactrim for 5 days. Patient did do well with the scheduled Ativan and CIWA protocol and there were no complications throughout hospitalization. She did develop a headache and received Toradol. Headache was accompanied with nausea. Magnesium was low, therefore she was started on magnesium supplementation. Hypomagnesemia resolved by day of discharge. She was on Protonix and Carafate and discharged on such. She will be discharged to [facility] for further treatment. She will follow up with her primary care provider within a week. Her UA was positive for - Patient Instructions Diet: Heart Healthy Diet, No Alcoholic Beverages Activity: As Tolerated Driving: Do Not Drive Showering/Bathing: May Shower Notify Provider of: Fever, Nausea and/or Vomiting Other/Special Instructions: Follow-up with primary care in 1 week. Absolutely no alcohol. - Discharge Plan *PRESCRIPTION DRUG MONITORING PROGRAM REVIEWED*: No *COPY OF PRESCRIPTION DRUG MONITORING REPORT IN PATIENT ANTHONY: No Prescriptions/Med Rec: Magnesium Oxide 400 mg PO DAILY #30 tablet Pantoprazole [ProTONIX] 40 mg PO DAILY #30 tab.cr Thiamine [Vitamin B-1] 100 mg PO BEDTIME #30 tablet Home Medications: Home Meds Sucralfate [Carafate] 1 gm PO QID 12/22/18 [History] Magnesium Oxide 400 mg PO DAILY #30 tablet 02/13/21 [Rx] Pantoprazole [ProTONIX] 40 mg PO DAILY #30 tab.cr 02/13/21 [Rx] Thiamine [Vitamin B-1] 100 mg PO BEDTIME #30 tablet 02/13/21 [Rx] Oxygen Therapy Mode: Room Air Forms: Return to Work/Inpatient [facility], ED Department Discharge Referrals: PCP,None [Primary Care Provider] - - Discharge Summary/Plan Comment DC Time >30 min.: Yes Total # of Minutes for Discharge Time: 40 Total time spent includes seeing the patient, doing discharge paperwork, and arranging care. - Patient Data Vitals - Most Recent: Last Vital Signs Temp 97.9 F 02/13/21 15:03 Pulse 96 02/13/21 15:03 Resp 20 02/13/21 15:03 BP 109/63 02/13/21 15:03 Pulse Ox 97 02/13/21 15:03 Weight - Most Recent: 136 lb 1.6 oz I&O - Last 24 hours: Intake & Output 02/13/21 02/13/21 02/13/21 06:59 14:59 22:59 Intake Total 460 1185 Output Total 300 350 Balance 160 835 Lab Results - Last 24 hrs: Laboratory Results - last 24 hr 02/13/21 Range/Units 06:05 Sodium 134 L (136-145) mEq/L Potassium 4.0 (3.5-5.1) mEq/L Chloride 101 (98-107) mEq/L Carbon Dioxide 24 (21-32) mEq/L Anion Gap 13.0 (5-15) BUN 14 (7-18) mg/dL Creatinine 0.7 (0.55-1.02) mg/dL Est Cr Clr Drug Dosing 77.01 mL/min Estimated GFR (MDRD) > 60 (>60) mL/min BUN/Creatinine Ratio 20.0 H (14-18) Glucose 120 H (70-99) mg/dL Calcium 8.4 L (8.5-10.1) mg/dL Magnesium 1.8 (1.8-2.4) mg/dL Total Bilirubin 0.2 (0.2-1.0) mg/dL AST 76 H (15-37) U/L ALT 74 H (14-59) U/L Alkaline Phosphatase 88 (46-116) U/L Total Protein 5.3 L (6.4-8.2) g/dl Albumin 2.8 L (3.4-5.0) g/dl Globulin 2.5 gm/dL Albumin/Globulin Ratio 1.1 (1-2) Med Orders - Current: Current Medications Acetaminophen (Acetaminophen 325 Mg Tab) 650 mg PO Q4H PRN PRN Reason: Pain (mild 1-3) Last Admin: 02/12/21 23:54 Dose: 650 mg Documented by: Docusate Sodium (Docusate Sodium 100 Mg Cap) 100 mg PO BID PRN PRN Reason: Constipation Folic Acid (Folic Acid 1 Mg Tab) 1 mg PO DAILY [facility] Last Admin: 02/13/21 08:52 Dose: 1 mg Documented by: Heparin Sodium (Porcine) (Heparin Sodium 5,000 Units/Ml Vial) 5,000 units SUBCUT Q8H [facility] Last Admin: 02/13/21 09:01 Dose: 5,000 units Documented by: Ketorolac Tromethamine (Ketorolac 30 Mg/Ml Sdv) 30 mg IVPUSH Q6H PRN PRN Reason: Pain Stop: 02/18/21 10:35 Last Admin: 02/13/21 06:48 Dose: 30 mg Documented by: Lorazepam (Lorazepam 2 Mg/Ml Sdv) 1 - 3 mg IV ASDIRECTED PRN; Protocol PRN Reason: Anxiety Magnesium Oxide (Magnesium Oxide 400 Mg Tab) 400 mg PO BID [facility] Last Admin: 02/13/21 08:52 Dose: 400 mg Documented by: Metoclopramide HCl (Metoclopramide 10 Mg/2 Ml Sdv) 10 mg IVPUSH Q8H PRN PRN Reason: Nausea/Vomiting Last Admin: 02/13/21 12:13 Dose: 10 mg Documented by: Metoprolol Tartrate (Metoprolol Tartrate 25 Mg Tab) 25 mg PO Q6H PRN PRN Reason: See Label Comment Ondansetron HCl (Ondansetron 4 Mg Tab.Dis) 4 mg PO Q4H PRN PRN Reason: Nausea/Vomiting Last Admin: 02/13/21 11:05 Dose: 4 mg Documented by: Pantoprazole Sodium (Pantoprazole 40 Mg Tab.Cr) 40 mg PO BID [facility] Last Admin: 02/13/21 08:52 Dose: 40 mg Documented by: Sodium Chloride (Sodium Chloride 0.9% 10 Ml Syringe) 10 ml FLUSH ASDIRECTED PRN PRN Reason: Keep Vein Open Last Admin: 02/07/21 08:43 Dose: 10 ml Documented by: Sodium Chloride (Sodium Chloride 0.9% 10 Ml Syringe) 10 ml FLUSH 0900,2100 [facility] Last Admin: 02/13/21 08:53 Dose: 10 ml Documented by: Sucralfate (Sucralfate 1 Gm Tab) 1 gm PO QID [facility] Last Admin: 02/13/21 12:12 Dose: 1 gm Documented by: Thiamine HCl (Thiamine 100 Mg Tab) 100 mg PO BEDTIME [facility] Last Admin: 02/12/21 23:54 Dose: Not Given Documented by: Discontinued Medications Magnesium Sulfate 2 gm/ Premix 50 mls @ 25 mls/hr IV ONETIME ONE Stop: 02/10/21 14:20 Last Admin: 02/10/21 15:09 Dose: 25 mls/hr Documented by: Sodium Chloride (Normal Saline) 1,000 mls @ 999 mls/hr IV ONETIME [facility] Last Admin: 02/07/21 08:43 Dose: 999 mls/hr Documented by: Magnesium Sulfate 4 gm/ Premix 50 mls @ 12.5 mls/hr IV ONETIME ONE Stop: 02/07/21 13:32 Last Admin: 02/07/21 10:23 Dose: 12.5 mls/hr Documented by: Dextrose/Lactated Ringer's (Dextrose 5%-Lactated Ringers) 1,000 mls @ 999 mls/hr IV ASDIRECTED [facility] Last Admin: 02/07/21 10:23 Dose: 999 mls/hr Documented by: Sodium Chloride (Normal Saline) 1,000 mls @ 150 mls/hr IV ASDIRECTED [facility] Sodium Chloride (Normal Saline) 1,000 mls @ 150 mls/hr IV STAT STA Stop: 02/08/21 00:04 Last Admin: 02/07/21 17:26 Dose: 150 mls/hr Documented by: Lactated Ringer's (Ringers, Lactated) 1,000 mls @ 200 mls/hr IV ASDIRECTED [facility] Last Infusion: 02/08/21 07:53 Dose: 100 mls/hr Documented by: Lactated Ringer's (Ringers, Lactated) 1,000 mls @ 100 mls/hr IV ASDIRECTED [facility] Last Infusion: 02/10/21 02:48 Dose: 0 mls/hr Documented by: Lorazepam (Lorazepam 2 Mg/Ml Sdv) 1 mg IVPUSH ONETIME ONE Stop: 02/07/21 08:48 Last Admin: 02/07/21 09:07 Dose: 1 mg Documented by: Lorazepam (Lorazepam 1 Mg Tab) 1 mg PO ONETIME ONE Stop: 02/07/21 13:41 Last Admin: 02/07/21 14:01 Dose: 1 mg Documented by: Lorazepam (Lorazepam 2 Mg/Ml Sdv) 4 mg IVPUSH ONETIME ONE Stop: 02/07/21 17:37 Last Admin: 02/07/21 17:58 Dose: 4 mg Documented by: Lorazepam (Lorazepam 2 Mg/Ml Sdv) 4 mg IVPUSH Q2H [facility] Last Admin: 02/07/21 21:53 Dose: 4 mg Documented by: Lorazepam (Lorazepam 2 Mg/Ml Sdv) 0 mg IV ASDIRECTED [facility]; Protocol Lorazepam (Lorazepam 2 Mg/Ml Sdv) 4 mg IVPUSH Q4H [facility] Last Admin: 02/08/21 06:15 Dose: 4 mg Documented by: Lorazepam (Lorazepam 1 Mg Tab) 2 mg PO Q2H [facility] Last Admin: 02/08/21 10:06 Dose: Not Given Documented by: Lorazepam (Lorazepam 1 Mg Tab) 2 mg PO Q4H [facility] Last Admin: 02/08/21 11:00 Dose: Not Given Documented by: Lorazepam (Lorazepam 1 Mg Tab) 2 mg PO Q4H [facility] Last Admin: 02/08/21 16:04 Dose: 2 mg Documented by: Lorazepam (Lorazepam 1 Mg Tab) 1 mg PO Q6H [facility] Lorazepam (Lorazepam 1 Mg Tab) 2 mg PO Q6H [facility] Last Admin: 02/09/21 03:56 Dose: 2 mg Documented by: Lorazepam (Lorazepam 1 Mg Tab) 1 mg PO Q4H [facility] Last Admin: 02/10/21 06:28 Dose: 1 mg Documented by: Metoclopramide HCl (Metoclopramide 10 Mg/2 Ml Sdv) 7.5 mg IVPUSH ONETIME ONE Stop: 02/07/21 08:48 Last Admin: 02/07/21 09:07 Dose: 7.5 mg Documented by: Ondansetron HCl (Ondansetron 4 Mg/2 Ml Sdv) 4 mg IVPUSH ONETIME ONE Stop: 02/07/21 17:38 Last Admin: 02/07/21 18:00 Dose: 4 mg Documented by: Ondansetron HCl (Ondansetron 4 Mg/2 Ml Sdv) 4 mg IV Q4H PRN PRN Reason: Nausea/Vomiting Last Admin: 02/09/21 11:52 Dose: 4 mg Documented by: Pantoprazole Sodium (Pantoprazole 40 Mg Vial) 40 mg IV Q12HR [facility] Last Admin: 02/08/21 08:08 Dose: 40 mg Documented by: Sodium Chloride (Sodium Chloride 0.9% 10 Ml Syringe) 10 ml FLUSH ASDIRECTED PRN PRN Reason: Keep Vein Open Trimethoprim/Sulfamethoxazole (Sulfamethoxazole/Trimethoprim 800-160 Mg Tab) 1 tab PO BID [facility] Last Admin: 02/13/21 08:53 Dose: 1 tab Documented by:
== END 2021-02-13 17:30 | DRG 775 ==
LOC: JD.ED 07:15 → JD.MS 16:16 → JD.ICU 19:54 → JD.MS 02-10 06:22
PROVIDERS: ADMIT Hospitalist; ATTEND Hospitalist
DX: F10.232 Alcohol dependence with withdrawal with perceptual disturbance (principal); N39.0 Urinary tract infection, site not specified; I10 Essential (primary) hypertension; E78.00 Pure hypercholesterolemia, unspecified; J45.909 Unspecified asthma, uncomplicated; F31.9 Bipolar disorder, unspecified; E83.42 Hypomagnesemia; B96.20 Unspecified Escherichia coli [E. coli] as the cause of diseases classified elsewhere; H54.7 Unspecified visual loss; K52.9 Noninfective gastroenteritis and colitis, unspecified; K21.9 Gastro-esophageal reflux disease without esophagitis; R32 Unspecified urinary incontinence; M19.90 Unspecified osteoarthritis, unspecified site; F41.9 Anxiety disorder, unspecified; M81.0 Age-related osteoporosis without current pathological fracture; Z79.899 Other long term (current) drug therapy; Z88.1 Allergy status to other antibiotic agents; Z88.5 Allergy status to narcotic agent; Z87.440 Personal history of urinary (tract) infections; Z90.89 Acquired absence of other organs; Z90.49 Acquired absence of other specified parts of digestive tract; Z20.822 Contact with and (suspected) exposure to COVID-19
CPT/HCPCS: 36410; 36415; 80053; 80307; 81001; 83735; 84100; 85025; 87086; 87088; 87186; 92523-GN; 94762; 96365; 96366; 96375; 97110-GP; 97116-GP; 97162-GP; 97530-GP; 99285-25; A9270-GY; C9113; J1644; J1885; J2060; J2405; J2765; J3475; J7030; J7120; J7121; U0002

== ENCOUNTER 2021-02-14 01:57 | Emergency (ER) | payer BC ==
[2021-02-14 03:07] VITALS: BP 142/82; PULSE 106
== END 2021-02-14 04:20 ==
LOC: JD.ED 01:57
DX: Z53.21 Procedure and treatment not carried out due to patient leaving prior to being seen by health care provider (principal)

== ENCOUNTER 2021-04-16 15:16 | Emergency (ER) | payer BC ==
[2021-04-16] MEDS ORDERED: Thiamine 200 MG/2 ML MDV IVPUSH ONE (15:29)
[2021-04-16] MEDS ORDERED: Dextrose 5%-0.9% NaCl 1,000 ML IV SCH (15:30)
[2021-04-16] MEDS ORDERED: Metoclopramide 10 MG/2 ML SDV IVPUSH ONE (15:41)
[2021-04-16] MEDS ORDERED: LORazepam 2 MG/ML SDV IVPUSH ONE (15:42)
[2021-04-16] MEDS: Potassium Chloride 10 MEQ in Premix Bag 1 BAG IV SCH ×4 (17:39→20:55)
[2021-04-16] MEDS ORDERED: Sodium Chloride 0.9% 1,000 ML IV SCH (21:00)
[2021-04-17 08:03] VITALS: BP 142/74; PULSE 101
== END 2021-04-17 07:50 | disposition home or self-care (01) ==
LOC: JD.ED 15:16
DX: F10.129 Alcohol abuse with intoxication, unspecified (principal); E87.6 Hypokalemia; E78.00 Pure hypercholesterolemia, unspecified; I10 Essential (primary) hypertension; K21.9 Gastro-esophageal reflux disease without esophagitis; Z88.1 Allergy status to other antibiotic agents; Z88.8 Allergy status to other drugs, medicaments and biological substances; Z79.899 Other long term (current) drug therapy; Y90.5 Blood alcohol level of 100-119 mg/100 ml
CPT/HCPCS: 36415; 80053; 80307; 83690; 85025; 93005; 96365; 96366; 96375; 99285; J2060; J2765; J3411; J3480; J7030; J7042

== ENCOUNTER 2021-04-18 15:42 | Emergency (ER) | payer BC ==
[2021-04-18] MEDS ORDERED: LORazepam 2 MG/ML SDV IVPUSH ONE (16:10)
[2021-04-18] MEDS ORDERED: Metoclopramide 10 MG/2 ML SDV IVPUSH ONE (16:10)
[2021-04-18] MEDS ORDERED: Dextrose 5%-Lactated Ringers 1,000 ML IV SCH (16:15)
[2021-04-18] MEDS ORDERED: Thiamine 200 MG/2 ML MDV IVPUSH ONE (16:21)
[2021-04-18] MEDS ORDERED: Dextrose 5%-0.9% NaCl 1,000 ML IV SCH (20:15)
[2021-04-18] MEDS: Magnesium Sulfate/Water 2 GM in Premix Bag 1 BAG IV SCH ×4 (20:40→23:22)
[2021-04-18] MEDS: Potassium Chloride 10 MEQ in Premix Bag 1 BAG IV SCH ×4 (20:40→23:41)
[2021-04-18 23:35] VITALS: PULSE 99
[2021-04-19] MEDS: Potassium Chloride 10 MEQ in Premix Bag 1 BAG IV SCH (00:45)
[2021-04-19] MEDS: Magnesium Sulfate/Water 2 GM in Premix Bag 1 BAG IV SCH (00:56)
[2021-04-19 02:04] VITALS: BP 132/71
== END 2021-04-19 03:22 | disposition home or self-care (01) ==
LOC: JD.ED 15:42
DX: F10.220 Alcohol dependence with intoxication, uncomplicated (principal); E87.6 Hypokalemia; E83.42 Hypomagnesemia; E78.00 Pure hypercholesterolemia, unspecified; I10 Essential (primary) hypertension; K21.9 Gastro-esophageal reflux disease without esophagitis; Z88.1 Allergy status to other antibiotic agents; Z88.8 Allergy status to other drugs, medicaments and biological substances; Y90.5 Blood alcohol level of 100-119 mg/100 ml
CPT/HCPCS: 36415; 80053; 80307; 83735; 85025; 85610; 85730; 86140; 96365; 96366; 96367; 96368; 96375; 99284; J2060; J2765; J3411; J3475; J3480; J7042; J7121; 99285

== ENCOUNTER 2021-05-07 15:03 | Emergency (ER) | payer BC, MEDICAID, OTHER ==
[2021-05-07 15:24] VITALS: PULSE 105
[2021-05-07] MEDS ORDERED: Ondansetron 4 MG Tab.DIS PO ONE (15:40)
[2021-05-07 16:02] VITALS: BP 171/87
== END 2021-05-07 15:52 | disposition home or self-care (01) ==
LOC: JD.ED 15:03
DX: I10 Essential (primary) hypertension (principal); E78.00 Pure hypercholesterolemia, unspecified; K21.9 Gastro-esophageal reflux disease without esophagitis; Z88.1 Allergy status to other antibiotic agents; Z88.8 Allergy status to other drugs, medicaments and biological substances; Z79.899 Other long term (current) drug therapy
CPT/HCPCS: 99283; A9270

== ENCOUNTER 2021-06-12 12:50 | Emergency (ER) | payer BC, MEDICAID ==
[2021-06-12] MEDS ORDERED: Sodium Chloride 0.9% 10 ML Syringe FLUSH PRN (12:58)
[2021-06-12] MEDS ORDERED: Ondansetron 4 MG/2 ML SDV IVPUSH ONE (13:00)
[2021-06-12] MEDS ORDERED: Dextrose 5%-0.9% NaCl 1,000 ML IV SCH ×2 (13:00→14:15)
[2021-06-12] MEDS ORDERED: cefTRIAXone 1 GM in Sodium Chloride 0.9% 100 ML IV ONE (14:05)
[2021-06-12 14:06] LABS: ACETAMINOPHEN 0 ug/mL (10-30)
[2021-06-12] MEDS ORDERED: Dextrose 5%-Lactated Ringers 1,000 ML IV SCH (14:45)
[2021-06-12 15:12] LABS: CORONAVIRUS COVID-19 NAA NEGATIVE (NEGATIVE)
[2021-06-12 17:43] VITALS: BP 125/88; PULSE 89
== END 2021-06-12 17:43 | disposition home or self-care (01) ==
LOC: JD.ED 12:50
DX: F10.129 Alcohol abuse with intoxication, unspecified (principal); E78.00 Pure hypercholesterolemia, unspecified; I10 Essential (primary) hypertension; K21.9 Gastro-esophageal reflux disease without esophagitis; Z88.1 Allergy status to other antibiotic agents; Z20.822 Contact with and (suspected) exposure to COVID-19; Y90.3 Blood alcohol level of 60-79 mg/100 ml
CPT/HCPCS: 0240U; 36415; 80053; 80143; 80179; 80306; 80307; 81001; 83735; 84443; 85025; 87086; 87088; 87186; 93005; 96365; 96366; 96375; 99284; J0696; J2405; J3490; J7042; J7121; 93010

== ENCOUNTER 2021-06-13 20:41 | Emergency (ER) | payer BC ==
[2021-06-13] MEDS ORDERED: Sodium Chloride 0.9% 10 ML Syringe FLUSH PRN (21:03)
[2021-06-13] MEDS ORDERED: Lactated Ringers 1,000 ML IV ONE ×2 (21:31→22:29)
[2021-06-13] MEDS ORDERED: Ondansetron 4 MG/2 ML SDV IVPUSH ONE (21:31)
[2021-06-13] MEDS ORDERED: Cefdinir 300 MG Cap PO ONE (21:35)
[2021-06-13 22:45] LABS: ACETAMINOPHEN 1 ug/mL (10-30)
[2021-06-14] MEDS ORDERED: Ondansetron 4 MG Tab.DIS PO ONE (08:54)
[2021-06-14 10:23] VITALS: BP 132/78; PULSE 78
== END 2021-06-14 10:23 | disposition other institution (70) ==
LOC: JD.ED 20:41
DX: F10.229 Alcohol dependence with intoxication, unspecified (principal); Y90.1 Blood alcohol level of 20-39 mg/100 ml
CPT/HCPCS: 36415; 80053; 80143; 80179; 80306; 80307; 81001; 83735; 85025; 87086; 96374; 99284; A9270; J2405; J3490; J7120; 99283

== ENCOUNTER 2021-07-04 10:42 | Emergency (ER) | payer BC ==
[2021-07-04] MEDS ORDERED: Sodium Chloride 0.9% 10 ML Syringe FLUSH PRN (11:21)
[2021-07-04] MEDS ORDERED: Lactated Ringers 1,000 ML IV ONE ×3 (11:29→15:59)
[2021-07-04 12:25] LABS: ACETAMINOPHEN 0 ug/mL (10-30)
[2021-07-04] MEDS ORDERED: LORazepam 1 MG Tab PO ONE (17:00)
[2021-07-04] MEDS ORDERED: Ondansetron 4 MG Tab.DIS PO ONE (17:00)
[2021-07-04 18:16] VITALS: BP 122/73; PULSE 100
== END 2021-07-04 18:10 | disposition other institution (70) ==
LOC: JD.ED 10:42
DX: F10.229 Alcohol dependence with intoxication, unspecified (principal); E78.00 Pure hypercholesterolemia, unspecified; I10 Essential (primary) hypertension; K21.9 Gastro-esophageal reflux disease without esophagitis; Z79.899 Other long term (current) drug therapy; Z88.1 Allergy status to other antibiotic agents; Z88.8 Allergy status to other drugs, medicaments and biological substances; Y90.1 Blood alcohol level of 20-39 mg/100 ml
CPT/HCPCS: 36415; 80053; 80143; 80179; 80306; 80307; 81001; 83735; 84443; 85025; 99284; A9270; J3490; J7120; 99283

== ENCOUNTER 2021-07-08 06:12 | Emergency (ER) | payer BC ==
[2021-07-08 06:49] VITALS: BP 143/96; PULSE 110
[2021-07-08] MEDS ORDERED: Sodium Chloride 0.9% 10 ML Syringe FLUSH PRN (06:58)
[2021-07-08] MEDS ORDERED: Ondansetron 4 MG/2 ML SDV IVPUSH ONE (06:59)
[2021-07-08] MEDS ORDERED: Sodium Chloride 0.9% 1,000 ML IV SCH (07:00)
[2021-07-08] MEDS ORDERED: Ondansetron 4 MG Tab.DIS PO ONE (07:07)
== END 2021-07-08 10:01 ==
LOC: JD.ED 06:12
DX: F10.232 Alcohol dependence with withdrawal with perceptual disturbance (principal); E78.00 Pure hypercholesterolemia, unspecified; I10 Essential (primary) hypertension; K21.9 Gastro-esophageal reflux disease without esophagitis; Z88.1 Allergy status to other antibiotic agents; Z88.8 Allergy status to other drugs, medicaments and biological substances; Z79.899 Other long term (current) drug therapy; Y90.0 Blood alcohol level of less than 20 mg/100 ml
CPT/HCPCS: 36415; 80053; 80306; 80307; 83735; 85025; 99284; A9270; 99283

== ENCOUNTER 2021-08-03 07:25 | Emergency (ER) | payer BC ==
[2021-08-03 07:37] VITALS: BP 124/65; PULSE 106
[2021-08-03] MEDS ORDERED: Ondansetron 4 MG Tab.DIS PO ONE (08:04)
[2021-08-03 08:51] LABS: ESTIMATED GFR > 60 mL/min (>60)
[2021-08-03] MEDS ORDERED: Potassium Chloride 20 MEQ Tab.ER PO ONE (09:25)
== END 2021-08-03 09:45 | disposition home or self-care (01) ==
LOC: JD.ED 07:25
DX: F10.921 Alcohol use, unspecified with intoxication delirium (principal); E87.6 Hypokalemia; K21.9 Gastro-esophageal reflux disease without esophagitis; E78.00 Pure hypercholesterolemia, unspecified; I10 Essential (primary) hypertension; Z90.49 Acquired absence of other specified parts of digestive tract
CPT/HCPCS: 36415; 80053; 80307; 83735; 85025; 99284; A9270

== ENCOUNTER 2022-01-25 14:53 | Emergency (ER) | payer BC ==
[2022-01-25 15:00] VITALS: BP 136/107; PULSE 124
[2022-01-25] MEDS ORDERED: Sodium Chloride 0.9% 10 ML Syringe FLUSH PRN (15:14)
[2022-01-25] MEDS ORDERED: Sodium Chloride 0.9% 1,000 ML IV ONE ×3 (15:16→19:49)
[2022-01-25] MEDS ORDERED: Metoclopramide 10 MG/2 ML SDV IVPUSH ONE (15:17)
[2022-01-25] MEDS ORDERED: LORazepam 2 MG/ML SDV IVPUSH ONE (16:38)
[2022-01-25 17:19] LABS: ESTIMATED GFR 97 mL/min (>60)
[2022-01-25 17:52] LABS: ACETAMINOPHEN 0 ug/mL (10-30)
== END 2022-01-25 22:30 | disposition home or self-care (01) ==
LOC: JD.ED 14:53
DX: F10.920 Alcohol use, unspecified with intoxication, uncomplicated (principal); R00.0 Tachycardia, unspecified; I10 Essential (primary) hypertension; J45.909 Unspecified asthma, uncomplicated; K21.9 Gastro-esophageal reflux disease without esophagitis; M19.90 Unspecified osteoarthritis, unspecified site; Z88.1 Allergy status to other antibiotic agents; Z88.8 Allergy status to other drugs, medicaments and biological substances; Z79.899 Other long term (current) drug therapy; Y90.0 Blood alcohol level of less than 20 mg/100 ml
CPT/HCPCS: 36415; 80053; 80143; 80179; 80307; 84443; 85025; 93005; 96361; 96374; 96375; 99284; J2060; J2765; J3490; J7030

== ENCOUNTER 2022-01-27 11:54 | Inpatient (IN) | payer BC ==
[2022-01-27] MEDS ORDERED: Sodium Chloride 0.9% 1,000 ML IV STA ×2 (12:39→16:47)
[2022-01-27] MEDS ORDERED: Sodium Chloride 0.9% 10 ML Syringe FLUSH PRN (12:39)
[2022-01-27] MEDS ORDERED: Potassium Chloride 20 MEQ Tab.ER PO ONE (13:45)
[2022-01-27] MEDS ORDERED: Magnesium Sulfate/Water 4 GM in Premix Bag 1 BAG IV ONE (13:48)
[2022-01-27] MEDS ORDERED: Lactated Ringers 1,000 ML IV SCH (14:00)
[2022-01-27] MEDS ORDERED: Ondansetron 4 MG/2 ML SDV IVPUSH ONE (14:08)
[2022-01-27] MEDS: Potassium Chloride 10 MEQ in Premix Bag 1 BAG IV SCH ×4 (14:20→23:31)
[2022-01-27] MEDS ORDERED: Sucralfate 1 GM Tab PO ONE (14:34)
[2022-01-27] MEDS ORDERED: Sucralfate Suspension 1 GM/10 ML Cup PO ONE (14:48)
[2022-01-27 15:27] LABS: CORONAVIRUS COVID-19 NAA NEGATIVE (NEGATIVE)
[2022-01-27] MEDS ORDERED: Lidocaine 4% Top Soln LTA 4 ML Syringe Kit TOP ONE (18:54)
[2022-01-27] MEDS ORDERED: LORazepam 1 MG Tab PO PRN ×2 (20:00→20:07)
[2022-01-27] MEDS ORDERED: Sodium Chloride 0.9% 1,000 ML IV SCH (20:15)
[2022-01-27] MEDS: Thiamine 100 MG Tab PO SCH (20:41)
[2022-01-27] MEDS: Potassium Chloride 20 MEQ Tab.ER PO SCH (20:41)
[2022-01-27] MEDS: Acetaminophen/Codeine 300-30 MG Tab PO PRN (21:06)
[2022-01-27] MEDS ORDERED: Ondansetron 4 MG Tab.DIS PO PRN (21:22)
[2022-01-27] MEDS: Sucralfate Suspension 1 GM/10 ML Cup PO SCH (22:35)
[2022-01-27] MEDS: Magnesium Hydroxide 400 MG/5 ML Susp 30 ML Cup PO SCH (22:35)
[2022-01-27] MEDS: Pantoprazole 40 MG Tab.CR PO SCH (22:36)
[2022-01-27] MEDS: Sodium Chloride 0.45% 1,000 ML IV SCH (22:50)
[2022-01-28] MEDS: Potassium Chloride 10 MEQ in Premix Bag 1 BAG IV SCH ×5 (00:24→04:33)
[2022-01-28] MEDS: Sodium Chloride 0.45% 1,000 ML IV SCH (05:52)
[2022-01-28] MEDS: Sucralfate Suspension 1 GM/10 ML Cup PO SCH ×4 (05:55→16:05)
[2022-01-28] MEDS ORDERED: Formoterol/Mometasone 200-5 MCG 8.8 GM Inhaler IH SCH (06:00)
[2022-01-28] MEDS: Formoterol/Mometasone 200-5 MCG 8.8 GM Inhaler IH SCH ×2 (08:43→20:02)
[2022-01-28] MEDS: DULoxetine 30 MG Cap PO SCH (08:55)
[2022-01-28] MEDS: OLANZapine 5 MG Tab PO SCH (08:55)
[2022-01-28] MEDS: Folic Acid 1 MG Tab PO SCH (08:55)
[2022-01-28] MEDS: Pantoprazole 40 MG Tab.CR PO SCH ×2 (08:57→20:21)
[2022-01-28] MEDS: Magnesium Hydroxide 400 MG/5 ML Susp 30 ML Cup PO SCH ×2 (08:57→20:21)
[2022-01-28] MEDS: Atenolol 25 MG Tab PO SCH (08:58)
[2022-01-28] MEDS: Potassium Chloride 20 MEQ Tab.ER PO SCH ×3 (08:58→20:21)
[2022-01-28] MEDS ORDERED: Losartan 25 MG Tab PO SCH (09:00)
[2022-01-28] MEDS ORDERED: Sodium Chloride 0.9% 1,000 ML IV SCH (13:45)
[2022-01-28] MEDS: Sodium Chloride 0.9% 1,000 ML IV SCH (13:49)
[2022-01-28] MEDS: Acetaminophen/Codeine 300-30 MG Tab PO PRN (20:21)
[2022-01-28] MEDS: Thiamine 100 MG Tab PO SCH (20:21)
[2022-01-28] MEDS ORDERED: Montelukast 10 MG Tab PO SCH (21:00)
[2022-01-28] MEDS ORDERED: Enoxaparin 30 MG/0.3 ML Syringe SUBCUT SCH (21:00)
[2022-01-29] MEDS: Sodium Chloride 0.9% 1,000 ML IV SCH (00:45)
[2022-01-29] MEDS: Sucralfate Suspension 1 GM/10 ML Cup PO SCH ×2 (01:04→06:23)
[2022-01-29] MEDS: Acetaminophen/Codeine 300-30 MG Tab PO PRN (04:57)
[2022-01-29] MEDS: Formoterol/Mometasone 200-5 MCG 8.8 GM Inhaler IH SCH (08:12)
[2022-01-29 09:04] VITALS: PULSE 86
[2022-01-29] MEDS: Potassium Chloride 20 MEQ Tab.ER PO SCH (09:12)
[2022-01-29] MEDS: Pantoprazole 40 MG Tab.CR PO SCH (09:12)
[2022-01-29] MEDS: Magnesium Hydroxide 400 MG/5 ML Susp 30 ML Cup PO SCH (09:12)
[2022-01-29] MEDS: DULoxetine 30 MG Cap PO SCH (09:12)
[2022-01-29] MEDS: Folic Acid 1 MG Tab PO SCH (09:12)
[2022-01-29] MEDS: Atenolol 25 MG Tab PO SCH (09:12)
[2022-01-29] MEDS: OLANZapine 5 MG Tab PO SCH (09:12)
[2022-01-29] MEDS ORDERED: Sucralfate 1 GM Tab PO SCH (11:00)
[2022-01-29 11:58] VITALS: BP 108/58
[2022-01-29] MEDS ORDERED: Enoxaparin 40 MG/0.4 ML Syringe SUBCUT SCH (21:00)
== END 2022-01-29 14:44 | disposition home or self-care (01) | DRG 426 ==
LOC: JD.ED 11:54 → JD.MS 18:42
PROVIDERS: ADMIT Pediatrics; ATTEND Internal Medicine
DX: E87.1 Hypo-osmolality and hyponatremia (principal); E86.0 Dehydration; F10.180 Alcohol abuse with alcohol-induced anxiety disorder; E87.6 Hypokalemia; E83.42 Hypomagnesemia; I50.9 Heart failure, unspecified; R77.8 Other specified abnormalities of plasma proteins; Y90.0 Blood alcohol level of less than 20 mg/100 ml; J45.909 Unspecified asthma, uncomplicated; F31.9 Bipolar disorder, unspecified; F31.60 Bipolar disorder, current episode mixed, unspecified; R11.2 Nausea with vomiting, unspecified; Z20.822 Contact with and (suspected) exposure to COVID-19; I11.0 Hypertensive heart disease with heart failure; Z88.1 Allergy status to other antibiotic agents; Z88.8 Allergy status to other drugs, medicaments and biological substances; Z79.899 Other long term (current) drug therapy; E78.00 Pure hypercholesterolemia, unspecified; K21.9 Gastro-esophageal reflux disease without esophagitis; M81.0 Age-related osteoporosis without current pathological fracture; M62.82 Rhabdomyolysis
CPT/HCPCS: 0240U; 36410; 36415; 71045; 71045-26; 76937; 80053; 80307; 81001; 82550; 83605; 83735; 83880; 84484; 85025; 86140; 93005; 93306; 94640; 94760; 97162-GP; A9270-GY; J1650; J2405; J3475; J3480; J3490; J7030; J7120

== ENCOUNTER 2022-01-31 06:52 | Emergency (ER) | payer BC ==
[2022-01-31] MEDS ORDERED: Sodium Chloride 0.9% 10 ML Syringe FLUSH PRN ×3 (07:03→08:22)
[2022-01-31 07:11] VITALS: BP 113/71; PULSE 100
[2022-01-31] MEDS ORDERED: Iopamidol 755 Mg/ML 100 ML Bottle IVPUSH ONE (08:22)
[2022-01-31] MEDS ORDERED: Sodium Chloride 0.9% 100 ML IV SCH (08:30)
== END 2022-01-31 12:12 | disposition home or self-care (01) ==
LOC: JD.ED 06:52
DX: K20.90 Esophagitis, unspecified without bleeding (principal); E87.6 Hypokalemia; E83.42 Hypomagnesemia; E78.00 Pure hypercholesterolemia, unspecified; I10 Essential (primary) hypertension; K21.9 Gastro-esophageal reflux disease without esophagitis; Z79.899 Other long term (current) drug therapy; Z88.1 Allergy status to other antibiotic agents; Z88.8 Allergy status to other drugs, medicaments and biological substances
CPT/HCPCS: 36415; 71045; 71275; 80053; 83735; 84484; 85025; 85379; 85610; 93005; 99285; J3490; Q9967

== ENCOUNTER 2022-02-09 18:19 | Emergency (ER) | payer BC ==
[2022-02-09] MEDS ORDERED: Ondansetron 4 MG Tab.DIS PO ONE (21:07)
[2022-02-10] MEDS ORDERED: Ondansetron 4 MG Tab.DIS PO ONE ×2 (04:38→06:46)
[2022-02-10 07:45] VITALS: BP 115/64; PULSE 106
== END 2022-02-10 09:40 | disposition home or self-care (01) ==
LOC: JD.ED 18:19
DX: R11.2 Nausea with vomiting, unspecified (principal); F10.129 Alcohol abuse with intoxication, unspecified; I10 Essential (primary) hypertension; Z88.1 Allergy status to other antibiotic agents; Z79.899 Other long term (current) drug therapy; Z90.49 Acquired absence of other specified parts of digestive tract
CPT/HCPCS: 36415; 80053; 80307; 83690; 85025; 99284; A9270

== ENCOUNTER 2022-03-07 07:43 | Emergency (ER) | payer BC ==
[2022-03-07] MEDS ORDERED: LORazepam 2 MG/ML SDV IVPUSH ONE ×3 (08:02→14:22)
[2022-03-07] MEDS ORDERED: Metoclopramide 10 MG/2 ML SDV IVPUSH ONE (08:02)
[2022-03-07] MEDS ORDERED: diphenhydrAMINE 50 MG/ML SDV IVPUSH ONE (08:03)
[2022-03-07] MEDS ORDERED: HYDROmorphone 0.5 MG/0.5 ML Syringe IVPUSH ONE ×2 (08:05→21:41)
[2022-03-07] MEDS ORDERED: Aspirin 81 MG Tab.Chew PO ONE (08:07)
[2022-03-07] MEDS ORDERED: Ondansetron 4 MG Tab.DIS PO ONE (08:16)
[2022-03-07] MEDS ORDERED: Ondansetron 4 MG Tab.DIS ONE (08:18)
[2022-03-07] MEDS: Dextrose 5%-Lactated Ringers 1,000 ML IV SCH ×3 (09:29→17:56)
[2022-03-07 09:33] LABS: ESTIMATED GFR 100 mL/min (>60)
[2022-03-07] MEDS ORDERED: Magnesium Sulfate/Water 4 GM in Premix Bag 1 BAG IV ONE (10:43)
[2022-03-07] MEDS: Potassium Chloride 10 MEQ in Premix Bag 1 BAG IV SCH ×4 (11:13→15:54)
[2022-03-07] MEDS: LORazepam 2 MG/ML SDV IVPUSH PRN (22:26)
[2022-03-07] MEDS ORDERED: HYDROmorphone 1 MG/ML Syringe IVPUSH PRN (23:30)
[2022-03-08] MEDS: LORazepam 2 MG/ML SDV IVPUSH PRN (04:12)
[2022-03-08] MEDS: Dextrose 5%-Lactated Ringers 1,000 ML IV SCH (05:20)
[2022-03-08 09:47] VITALS: BP 110/98; PULSE 95
== END 2022-03-08 09:15 | disposition home or self-care (01) ==
LOC: JD.ED 07:43
DX: F41.0 Panic disorder [episodic paroxysmal anxiety] (principal); F43.9 Reaction to severe stress, unspecified; F10.920 Alcohol use, unspecified with intoxication, uncomplicated; E87.20 Acidosis, unspecified; E83.42 Hypomagnesemia; E87.6 Hypokalemia; E78.00 Pure hypercholesterolemia, unspecified; I10 Essential (primary) hypertension; K21.9 Gastro-esophageal reflux disease without esophagitis; Z88.1 Allergy status to other antibiotic agents; Z88.8 Allergy status to other drugs, medicaments and biological substances
CPT/HCPCS: 36415; 71045; 80053; 80307; 82009; 83605; 83690; 83735; 83880; 84484; 85025; 85610; 85730; 86140; 93005; 96361; 96365; 96366; 96367; 96368; 96375; 96376; 99285; A9270; J1170; J1200; J2060; J3475; J3480; J7121

== ENCOUNTER 2022-03-10 04:26 | Emergency (ER) | payer BC ==
[2022-03-10] MEDS ORDERED: Alum Hydrox/Mag Hydrox/Simeth 30 ML, Lidocaine 2% 15 ML PO STA ×2 (05:07)
[2022-03-10] MEDS ORDERED: LORazepam 2 MG/ML SDV IM ONE (05:07)
[2022-03-10] MEDS ORDERED: Ondansetron 4 MG Tab.DIS PO ONE (05:09)
[2022-03-10] MEDS ORDERED: Famotidine 20 MG Tab PO ONE (07:36)
[2022-03-10] MEDS ORDERED: Pantoprazole 40 MG Tab.CR PO STA (07:41)
[2022-03-10] MEDS ORDERED: LORazepam 1 MG Tab PO ONE (07:42)
[2022-03-10 09:01] VITALS: BP 123/92; PULSE 98
== END 2022-03-10 08:10 | disposition home or self-care (01) ==
LOC: JD.ED 04:26
DX: R10.13 Epigastric pain (principal); R11.2 Nausea with vomiting, unspecified; F10.20 Alcohol dependence, uncomplicated; F43.20 Adjustment disorder, unspecified; J45.909 Unspecified asthma, uncomplicated; I10 Essential (primary) hypertension; K21.9 Gastro-esophageal reflux disease without esophagitis; Z88.8 Allergy status to other drugs, medicaments and biological substances; Z79.899 Other long term (current) drug therapy
CPT/HCPCS: 96372; 99284; A9270; J2060

== ENCOUNTER 2022-03-13 14:21 | Emergency (ER) | payer BC ==
[2022-03-13 14:26] VITALS: BP 114/68; PULSE 99
[2022-03-13] MEDS ORDERED: Sodium Chloride 0.9% 1,000 ML IV STA (14:32)
[2022-03-13] MEDS ORDERED: Sodium Chloride 0.9% 10 ML Syringe FLUSH PRN (14:32)
[2022-03-13 16:41] LABS: ESTIMATED GFR 100 mL/min (>60)
== END 2022-03-13 18:30 | disposition home or self-care (01) ==
LOC: JD.ED 14:21
DX: F10.229 Alcohol dependence with intoxication, unspecified (principal); F43.20 Adjustment disorder, unspecified; E78.00 Pure hypercholesterolemia, unspecified; I10 Essential (primary) hypertension; K21.9 Gastro-esophageal reflux disease without esophagitis; Z88.1 Allergy status to other antibiotic agents; Z88.8 Allergy status to other drugs, medicaments and biological substances; Z79.899 Other long term (current) drug therapy; Y90.0 Blood alcohol level of less than 20 mg/100 ml
CPT/HCPCS: 36410; 36415; 80053; 80307; 85025; 99283; 99284

== ENCOUNTER 2022-03-15 16:05 | Emergency (ER) | payer BC ==
[2022-03-15] MEDS ORDERED: Alum Hydrox/Mag Hydrox/Simeth 30 ML, Lidocaine 2% 15 ML PO ONE ×2 (16:40)
[2022-03-15] MEDS ORDERED: LORazepam 1 MG Tab PO ONE (18:00)
[2022-03-15 18:56] LABS: ESTIMATED GFR 82 mL/min (>60)
[2022-03-15 18:57] LABS: ACETAMINOPHEN 0 ug/mL (10-30)
[2022-03-15] MEDS ORDERED: Sucralfate Suspension 1 GM/10 ML Cup PO ONE (19:59)
[2022-03-15] MEDS ORDERED: Famotidine 20 MG Tab PO ONE (19:59)
[2022-03-15] MEDS: Sodium Chloride 0.9% 1,000 ML IV SCH ×2 (20:12→22:34)
[2022-03-15] MEDS ORDERED: Ondansetron 4 MG/2 ML SDV IVPUSH ONE (23:12)
[2022-03-16] MEDS ORDERED: LORazepam 1 MG Tab PO ONE ×2 (01:20→06:11)
[2022-03-16] MEDS ORDERED: Sodium Chloride 0.9% 1,000 ML ONE (01:36)
[2022-03-16] MEDS ORDERED: Sodium Chloride 0.9% 1,000 ML IV SCH (01:45)
[2022-03-16 09:33] VITALS: BP 134/81; PULSE 111
== END 2022-03-16 08:50 | disposition home or self-care (01) ==
LOC: JD.ED 16:05
DX: F10.930 Alcohol use, unspecified with withdrawal, uncomplicated (principal); I10 Essential (primary) hypertension; Z88.1 Allergy status to other antibiotic agents; Z88.8 Allergy status to other drugs, medicaments and biological substances; Z79.899 Other long term (current) drug therapy; Z90.49 Acquired absence of other specified parts of digestive tract
CPT/HCPCS: 36415; 80053; 80143; 80179; 80306; 80307; 84443; 85007; 85027; 93005; 96361; 96374; 99285; A9270; J2405; J7030; 99284

== ENCOUNTER 2022-03-21 11:13 | Emergency (ER) | payer BC ==
[2022-03-21 11:28] VITALS: PULSE 81
[2022-03-21] MEDS ORDERED: Sodium Chloride 0.9% 1,000 ML IV ONE (11:54)
[2022-03-21 12:28] LABS: ESTIMATED GFR 100 mL/min (>60)
[2022-03-21] MEDS ORDERED: Potassium Chloride 10 MEQ in Premix Bag 1 BAG IV ONE ×2 (14:07→14:09)
[2022-03-21] MEDS ORDERED: Magnesium Sulfate/Water 2 GM in Premix Bag 1 BAG IV ONE (14:09)
[2022-03-21] MEDS ORDERED: Potassium Chloride 20 MEQ Tab.ER PO ONE (16:31)
[2022-03-21 19:18] VITALS: BP 100/64
== END 2022-03-21 17:00 | disposition home or self-care (01) ==
LOC: JD.ED 11:13
DX: F10.20 Alcohol dependence, uncomplicated (principal); E87.6 Hypokalemia; E83.42 Hypomagnesemia; E78.00 Pure hypercholesterolemia, unspecified; I10 Essential (primary) hypertension; K21.9 Gastro-esophageal reflux disease without esophagitis; Z79.899 Other long term (current) drug therapy; Z88.1 Allergy status to other antibiotic agents; Z88.8 Allergy status to other drugs, medicaments and biological substances; Y90.2 Blood alcohol level of 40-59 mg/100 ml
CPT/HCPCS: 36415; 80053; 80307; 81003; 83735; 85025; 96361; 96365; 96366; 96368; 99285; A9270; J3475; J3480; J7030

== ENCOUNTER 2022-03-24 12:43 | Emergency (ER) | payer BC ==
[2022-03-24] MEDS ORDERED: Potassium Chloride 20 MEQ Tab.ER PO ONE (16:53)
[2022-03-24 17:12] VITALS: BP 138/71; PULSE 85
== END 2022-03-24 17:18 ==
LOC: JD.ED 12:43
DX: F10.920 Alcohol use, unspecified with intoxication, uncomplicated (principal); E78.00 Pure hypercholesterolemia, unspecified; I10 Essential (primary) hypertension; K21.9 Gastro-esophageal reflux disease without esophagitis; Z88.1 Allergy status to other antibiotic agents; Z88.8 Allergy status to other drugs, medicaments and biological substances; Z79.899 Other long term (current) drug therapy
CPT/HCPCS: 99284; A9270; 99282

== ENCOUNTER 2022-03-27 05:15 | Emergency (ER) | payer BC ==
[2022-03-27] MEDS ORDERED: Ondansetron 4 MG/2 ML SDV IVPUSH ONE (05:52)
[2022-03-27] MEDS ORDERED: LORazepam 2 MG/ML SDV IVPUSH STA (05:52)
[2022-03-27] MEDS ORDERED: HYDROmorphone 0.5 MG/0.5 ML Syringe IVPUSH ONE ×2 (05:52→08:09)
[2022-03-27] MEDS ORDERED: Aspirin 81 MG Tab.Chew PO STA (05:53)
[2022-03-27] MEDS ORDERED: Magnesium Sulfate/Water 4 GM in Premix Bag 1 BAG IV ONE (06:41)
[2022-03-27] MEDS ORDERED: LORazepam 2 MG/ML SDV IVPUSH ONE (08:07)
[2022-03-27 10:53] VITALS: BP 110/72; PULSE 108
== END 2022-03-27 10:44 | disposition home or self-care (01) ==
LOC: JD.ED 05:15
DX: R07.89 Other chest pain (principal); E87.6 Hypokalemia; E83.42 Hypomagnesemia; I10 Essential (primary) hypertension; K21.9 Gastro-esophageal reflux disease without esophagitis; Z88.1 Allergy status to other antibiotic agents; Z88.8 Allergy status to other drugs, medicaments and biological substances; Z79.899 Other long term (current) drug therapy; Z90.49 Acquired absence of other specified parts of digestive tract
CPT/HCPCS: 36415; 71046; 80053; 83735; 83880; 84484; 85025; 85379; 85610; 85730; 93005; 96365; 96366; 96375; 96376; 99285; A9270; J1170; J2060; J2405; J3475; 93010; 99284

== ENCOUNTER 2022-03-31 15:17 | Emergency (ER) | payer BC ==
[2022-03-31] MEDS ORDERED: Metoclopramide 10 MG/2 ML SDV IVPUSH ONE (15:38)
[2022-03-31] MEDS ORDERED: Sodium Chloride 0.9% 10 ML Syringe FLUSH PRN (15:38)
[2022-03-31] MEDS ORDERED: Sodium Chloride 0.9% 1,000 ML IV ONE (15:38)
[2022-03-31] MEDS ORDERED: LORazepam 2 MG/ML SDV IVPUSH ONE (15:38)
[2022-03-31 22:27] VITALS: BP 144/75; PULSE 131
== END 2022-03-31 22:55 | disposition home or self-care (01) ==
LOC: JD.ED 15:17
DX: F10.920 Alcohol use, unspecified with intoxication, uncomplicated (principal); I10 Essential (primary) hypertension; J45.909 Unspecified asthma, uncomplicated; K21.9 Gastro-esophageal reflux disease without esophagitis; Z88.1 Allergy status to other antibiotic agents; Z88.8 Allergy status to other drugs, medicaments and biological substances; Z79.899 Other long term (current) drug therapy
CPT/HCPCS: 36415; 80053; 80307; 83735; 85025; 85610; 99284; J2060; J2765; J3490; J7030; 36410; 99283

== ENCOUNTER 2022-04-03 00:02 | Emergency (ER) | payer BC ==
[2022-04-03] MEDS ORDERED: Ondansetron 4 MG/2 ML SDV IVPUSH ONE (01:39)
[2022-04-03] MEDS ORDERED: Sodium Chloride 0.9% 1,000 ML IV ONE (01:39)
[2022-04-03] MEDS ORDERED: Magnesium Sulfate/Water 4 GM in Premix Bag 1 BAG IV ONE (02:30)
[2022-04-03] MEDS ORDERED: LORazepam 2 MG/ML SDV IVPUSH STA (02:31)
[2022-04-03] MEDS ORDERED: Potassium Chloride 20 MEQ Tab.ER PO ONE (06:42)
[2022-04-03 07:08] VITALS: BP 122/65; PULSE 107
== END 2022-04-03 07:22 | disposition home or self-care (01) ==
LOC: JD.ED 00:02
DX: F10.920 Alcohol use, unspecified with intoxication, uncomplicated (principal); E87.6 Hypokalemia; E83.42 Hypomagnesemia; E78.00 Pure hypercholesterolemia, unspecified; I10 Essential (primary) hypertension; K21.9 Gastro-esophageal reflux disease without esophagitis; Z88.1 Allergy status to other antibiotic agents; Z88.8 Allergy status to other drugs, medicaments and biological substances; Y90.1 Blood alcohol level of 20-39 mg/100 ml
CPT/HCPCS: 36415; 80053; 80307; 83735; 96361; 96365; 96366; 96375; 99285; A9270; J2060; J2405; J3475; J7030; 99284

== ENCOUNTER 2022-04-04 23:03 | Emergency (ER) | payer BC ==
[2022-04-05] MEDS ORDERED: Ondansetron 4 MG/2 ML SDV IVPUSH ONE (03:54)
[2022-04-05] MEDS ORDERED: Ondansetron 4 MG Tab.DIS PO ONE (04:22)
[2022-04-05] MEDS ORDERED: Magnesium Oxide 400 MG Tab PO ONE (04:55)
[2022-04-05] MEDS ORDERED: Potassium Chloride 20 MEQ Tab.ER PO ONE (06:21)
[2022-04-05 07:41] VITALS: BP 144/77; PULSE 105
== END 2022-04-05 07:42 | disposition home or self-care (01) ==
LOC: JD.ED 23:03
DX: F10.129 Alcohol abuse with intoxication, unspecified (principal); E83.42 Hypomagnesemia; E87.6 Hypokalemia; J45.909 Unspecified asthma, uncomplicated; M19.90 Unspecified osteoarthritis, unspecified site; E78.00 Pure hypercholesterolemia, unspecified; K21.9 Gastro-esophageal reflux disease without esophagitis; Y90.0 Blood alcohol level of less than 20 mg/100 ml; Z88.1 Allergy status to other antibiotic agents; Z88.8 Allergy status to other drugs, medicaments and biological substances; Z79.899 Other long term (current) drug therapy
CPT/HCPCS: 36415; 80053; 80307; 83735; 99284; A9270